=== PATIENT | male | born 1980 | race Caucasian/White ===

== ENCOUNTER 2023-07-22 09:49 | Outpatient (OUT) | payer OTHER, SELFPAY ==
--- NOTE | 2023-07-22 10:00 | VEIN_ITS ---
Patient Name: DAVI MCCULLOUGH MR#: [id number] : 1980 Exam Date: 07/22/2023 Ordering Doctor: [facility] REPORT PROCEDURE: VC EXT VENOUS REFLUX KANWAL LMTD COMPARISON: None. INDICATIONS: Pain due to varicose veins of bilateral legs I83.813 TECHNIQUE: Duplex imaging of the lower extremity to assess the deep and superficial venous system for the presence of deep or superficial venous incompetence and to document the location and severity of disease. The study includes evaluation of the great saphenous vein (GSV), anterior accessory saphenous vein (AASV) and small saphenous vein (SSV). Patient scanned in reverse Trendelenburg and standing. FINDINGS: RIGHT LOWER EXTREMITY: Saphenofemoral Junction Reflux: Yes 9.3mm 1.1 sec GSV: Diam (mm) Reflux/ Time (sec) Proximal Thigh 10.1 Yes 1.1 Mid Thigh 7.2 Yes 0.8 Distal Thigh 6.1 Yes 0.7 Prox Calf 5.2 Yes 1.9 Mid Calf 4.0 Yes 0.4 Saphenopopliteal Junction Reflux: 3.7mm Yes 0.2 SSV: Proximal Calf 4.6 Yes 0.3 Mid Calf 3.8 No AASV: Proximal Thigh 7.0 Yes 0.9 Mid Thigh 3.5 Yes 0.2 Distal Thigh Thrombi: No acute or chronic thrombus. Compressibility: Normal. Flow: Mild deep venous reflux. Preforator: Mid medial lower leg 5.3 mm with 1.1s reflux. Distal lateral lower leg 2.8 mm with 2.1s reflux. Prox/med lower leg measures 4.4 mm, 1.7s reflux. Tech Note: Incompetent varicose vein medial knee measures 4.2 mm with 0.7s reflux. Varicose vein prox medial lower leg measures 4.4 mm with 0.5s reflux. Distal medial lower leg varicose vein measures 4.5 mm with 0.6s reflux. LEFT LOWER EXTREMITY: Saphenofemoral Junction Reflux: Yes 9.8 mm 2.6 sec GSV: Diam (mm) Reflux/Time (sec) Proximal Thigh 12.5 Yes 0.7 Mid Thigh 7.0 Yes 0.5 Distal Thigh 6.4 Yes 0.6 Prox Calf 5.3 Yes 1.9 Mid Calf 5.6 Yes 0.8 Saphenopopliteal Junction Relux: 6.1 mm Yes 0.9 SSV: Proximal Calf 6.9 Yes 0.7 Mid Calf 5.7 Yes 4.8 AASV: Proximal Thigh 6.8 Yes 1.1 Mid Thigh 2.8 Yes 0.4 Distal Thigh Thrombi: Non-occlusive partial thrombus in proximal SSV Compressibility: Partial compression of proximal SSV. Flow: Moderate deep venous reflux. Prop Cutter: Mid medial lower leg 7.6mm with 0.8s reflux. Tech Note: Very short AASV. Incompetent varicose vein proximal medial lower leg measures 5.2 mm with 3.1s reflux. Distal medial thigh varicose vein measures 5.8 mm with 0.5s reflux. Varicose vein mid posterior calf measures 4.6 mm with 2.3s reflux. CONCLUSION: 1. Abnormal dilation and reflux involving bilateral great saphenous veins, left small saphenous vein, and bilateral anterior accessory saphenous veins, although the left anterior accessory saphenous vein is too short of a segment for treatment. 2. Bilateral distal lower extremity dilated and incompetent event marketing representative veins. Dictated by: John Duggan M.D. on 07/22/2023 at 11:13 Approved by: John Duggan M.D. on 07/22/2023 at 11:42
--- NOTE | 2023-07-22 10:00 | VEIN_ITS ---
Patient Name: DAVI MCCULLOUGH MR#: [id number] : 1980 Exam Date: 07/22/2023 Ordering Doctor: DAWOOD ARTIS [facility]IOLOG[facility] REPORT PROCEDURE: [facility] [place] - OFFICE VISIT INITIAL COMPARISON: VC EXT VENOUS REFLUX KANWAL LMTD, 07/22/2023. PROGRESS NOTES: [age] year old male who presents with a 4 year history of dilated bulging veins, leg pain and swelling, muscle cramping, edema, skin discoloration, reoccurring wounds. The patient's leg symptoms are symmetric bilaterally. There has been a progression of symptoms over time. This increases with prolonged leg dependency. The patient describes an improvement with rest, elevation, exercise, support stockings. The patient denies any signs and symptoms to suggest arterial ischemia. The patient describes a family history : Unknown-adopted. The patient has drinking and smoking history of occasional alcohol consumption; no tobacco use. Patient has a past medical history significant for recurrent skin ulcers, chronic venous hypertension, varicose veins, edema. The patient denies a history of deep venous thrombus or pulmonary embolus. See separate history and physical for medication list. No prior treatment for varicose or spider veins. Current use of compression stockings. After review of nurse notes, history and physical exam I discussed at length the pathophysiology of venous hypertension and possible treatments, therapies and strategies available. We discussed at length the importance of elevating the lower extremities above the level of the heart, increased physical activity and compression stocking use. Ultrasound venous reflux study performed today was discussed at length with the patient. The report demonstrates abnormal dilation and reflux within bilateral great saphenous veins, left small saphenous vein, and bilateral anterior accessory saphenous veins, although the left anterior accessory saphenous vein is too short of a segment for treatment. Abnormally dilated incompetent bilateral lower extremity driller hand veins. Numerous incompetent and dilated branch saphenous varicosities. PHYSICAL EXAM: The right leg demonstrates several superficial varicosities, scattered spider veins, evidence of several healed ulceration, moderate-marked edema, mild skin discoloration. The left leg demonstrates several superficial varicosities, scattered spider veins, multiple skin wounds but no ulceration, moderate-marked edema, no significant skin discoloration. Both thighs, legs and feet were symmetrically warm to the touch. Good posterior tibial and dorsalis pedis pulses were present bilaterally. VEIN/VC Facility NEW Comprehensive IMPRESSION: 1. Bilateral lower extremity venous insufficiency 2. Bilateral lower extremity varicose veins 3. Moderate-marked bilateral lower extremity subcutaneous edema 4. No flow significant arterial disease 5. CEAP: C5, AP, AP, OH PLAN: 1. Continued use of compression stockings 2. Elevated legs and increased physical activity symptomatic relief 3. Endovenous laser ablation of right great saphenous, left great saphenous, right anterior accessory saphenous, left small saphenous, and left distal lower extremity driller hand vein. 4. Microfoam chemical ablation of any remaining incompetent branch saphenous varicosities. Nurse notes, history and physical were reviewed and confirmed, see attached forms. The nurse was present throughout the physical exam and consultation Dictated by: John Duggan M.D. on 07/22/2023 at 11:43 Approved by: John Duggan M.D. on 07/22/2023 at 11:55
== END 2023-07-22 09:50 | disposition home or self-care (01) ==
DX: I83.813 Varicose veins of bilateral lower extremities with pain (principal)
CPT/HCPCS: 93970; G0463

== ENCOUNTER 2023-08-31 09:23 | Outpatient (OUT) | payer OTHER, SELFPAY ==
--- NOTE | 2023-08-31 09:25 | VEIN_ITS ---
[address] [address] Patient Name: DAVI MCCULLOUGH MRN: [id number] date: 1980 Sex: M Assigned Patient Location: Current Patient Location: Accession/Order Number: [id number] Exam Date: 08/31/2023 09:30 Report Date: 08/31/2023 10:48 At the request of: ISAÍAS WILLAMS Procedure: VC Endovenous Ablation 1VeinRT EXAMINATION: VC Endovenous Ablation 1VeinRT HISTORY: Pain due to varicose veins of bilateral legs I83.813 The risks and benefits of the procedure had been previously discussed, and were rediscussed at length. Informed written consent was obtained. Alex Rankin RN and Lucia Patel RDMS assisted. Time out procedure was performed. The right lower extremity was prepared and draped in the usual sterile fashion to allow knee flexion in the sterile field. Duplex ultrasound probe was draped in a sterile cover, sterile transmission gel was used. Venous mapping was performed with the areas of dilation and large tributaries marked. The total length was [67 cm from the entry 3 cm above the ankle to 3 cm below the Saphenofemoral junction. The diameter of the right great saphenous vein ranged from 10.1 mm. A 30 gauge needle and 1% buffered lidocaine was used to anesthetize the entry site. A 4 mm incision was made with a scalpel and the saphenous vein was entered percutaneously under direct ultrasound guidance with a micropuncture set, a single stick was successful in gaining access. A micro-guide wire was inserted and the needle removed. A micro-set including a dilator was inserted over the microwire and the needle and dilator were removed. A guide wire was inserted through the micro-set and guided through the saphenous vein to the saphenofemoral junction. The dilator was removed and an introducer sheath was inserted over the wire until the end of the sheath entered the saphenofemoral junction. The dilator and wire were removed and the 600 micron fiber was introduced and placed and positioned so that it extended beyond the sheath and was 3 cm distal to the saphenofemoral or saphenopopliteal junction. Final position of the fiber was determined by ultrasound guidance and duplex imaging. Tumescent anesthetic was delivered by ultrasound guidance. 500 cc of fluid was delivered along the entire course of the saphenous vein. The solution consisted of 1000 cc of normal saline with 40 mL of 1% lidocaine and 20 mL of sodium bicarbonate. A final positioning check was made. The energy source was turned on by means of the foot pedal and the fiber and sheath were withdrawn. The total number of Joules delivered was 3326. The laser was active for 416 seconds under continuous pulse, average laser use of 8 J. Laser start time: 10:24 AM Laser stop time: 10:34 AM Date: 08/31/2023. A duplex ultrasound revealed compressibility and flow at the saphenofemoral junction immediately after the procedure. Hemostasis at the access site was achieved. The skin incision of the saphenous vein was closed with a 4 x 4. A compression stocking was applied. Postop instructions were given. A follow up appointment was recommended and scheduled. The patient tolerated the procedure well. Electronically authenticated by: MARIBELL MENDOZA Date: 08/31/2023 10:48
--- OUTSIDE RECORDS SUMMARY | 2023-08-31 09:38 | XMS_ITS | CCD ---
Author Organization [facility] Care Team Providers Care Press Cleaner Name Role Phone Antoine Alcazar Unavailable [phone] AJ CROW Attending Unavailable Rashid Rojas Admitting Unavailab Rashid Solomon Attending Unavailab kiarra NO FAMILY, PHYSICIAN Primary Care Unavailable KAMI Hummel Attending Unavailable KAMI Hummel Admitting Unavailable Kastor COVERAGE SPECIALIST RN PHONE COUNSELOR-C, Mary C Primary Care Unavai lable Jet Sanchezg K Admitting Unavailable Le, Kareem K Attending Unavailable Provider, None Primary Care Unavailable KAMI Hummel Attending Unavailable KAMI Hummel Admitting Unavailable Kastor COVERAGE SPECIALIST RN PHONE COUNSELOR-C, Mary C Primary Care Unavai lable Kastor COVERAGE SPECIALIST RN PHONE COUNSELOR-C, Mary C Admitting Unavai lable Kastor COVERAGE SPECIALIST RN PHONE COUNSELOR-C, Mary C Attending Unavai lable Kastor COVERAGE SPECIALIST RN PHONE COUNSELOR-C, Mary C Primary Care Unavai lable Provider, Unlisted Primary Care Unavailable Marika Tavares CNP Admitting Unava ilable Marika Tavares CNP Attending Unava ilable Jhonny Hernandez Attending Unavailable Jhonny Hernandez Admitting Unavailable Kastor COVERAGE SPECIALIST RN PHONE COUNSELOR-C, Mary C Primary Care Unavai Reno Rivas Admitting Unavaila ble Reno Ogden Attending Unavaila ble Provider, None Primary Care Unavailable KAMI Hummel Attending Unavailable KAMI Hummel Admitting Unavailable Kastor COVERAGE SPECIALIST RN PHONE COUNSELOR-C, Mary C Primary Care Unavai KAMI Quach Attending Unavailable KAMI Hummel Admitting Unavailable [facility] COVERAGE SPECIALIST RN PHONE COUNSELOR-C, Mary Steven Primary Care KAMI Moon Attending Unavailable KAMI Hummel Admitting Unavailable [facility] COVERAGE SPECIALIST RN PHONE COUNSELOR-C, Mary Steven Primary Care KAMI Moon Attending Unavailable KAMI Hummel Admitting [facility], Mary Steven Primary Care KAMI Moon Attending Unavailable KAMI Hummel Admitting Unavailable [facility] PH[facility]SELOR-C, Mary C Primary Care Jyotiva liane Allergies Allergy Classification Reported Allergen(s) Allergy Type Date of Onset Reaction(s) Facility (6 sources) buPROPion; Translations: [BUPROPION HCL] Drug Allergy 10-25-2016 [facility] (1 source) buPROPion Drug Allergy 02-01-2019 [facility] Repository (1 source) buPROPion; Translations: [Wellbutrin] Drug Allergy [facility] Repository Medications Completed/Discontinued Medications Medication Drug Class(es) Dates Sig (Normalized) Sig (Original) acetaminophen 325 mg oral tablet (5 sources) Start: 06-22-19 20 take 2 tablets by mouth every four hours as needed acetaminophen (TYLENOL) 325 mg tablet Take 2 tablets by mouth every 4 hours as needed (for pain.). 0 06/22/2019 Active Comment on above: Take 2 tablets by [facility] every 4 hours as needed (for pain.). ascorbic acid 500 mg oral tablet (5 sources) Vitamin C take 1 tablet by mouth once daily ascorbic acid, vitamin C, (VITAMIN C) 500 mg tablet Take 500 mg by mouth once daily. 0 Active Comment on above: Take 500 mg by mouth once daily. B Complex Vitamins capsule (5 sources) take 1 capsule by mouth once daily B Complex Vitamins capsule Take 1 capsule by mouth once daily. 0 Active Comment on above: Take 1 capsule by mo [facility] once daily. busPIRone hydrochloride 15 mg oral tablet (5 sources) take 1 tablet by mouth three times daily busPIRone (BUSPAR) 15 mg tablet Take 15 mg by mouth three times daily. 0 Active Comment on above: Take 15 mg by mouth three times daily. clonazePAM 1 mg oral tablet (5 sources) Benzodiazepine take 1 tablet by mouth every twelve hours as needed clonazePAM (KLONOPIN) 1 mg tablet Take 1 mg by mouth twice daily as needed. 0 Active Comment on above: Take 1 mg by mouth t wice daily as needed. doxepin hydrochloride 50 mg oral capsule (5 sources) Tricyclic Antidepressant take 1 capsule by mouth once daily at bedtime doxepin capsule 50 mg Take 50 mg by mouth daily at bedtime. 0 Active Comment on above: Take 50 mg by mouth daily at bedtime. 0.5 ml dulaglutide 1.5 mg/ml auto-injector (4 sources) GLP-1 Receptor Agonist Start: 01-05-20 23 TRULICITY 0.75 mg/0.5 mL pen injector famotidine/Ca carb/mag hydrox (ACID GREASE MAN COMPLETE, FAMOT, ORAL) (5 sources) take 1 tablet by mouth twice daily famotidine/Ca carb/mag hydrox (ACID GREASE MAN COMPLETE, FAMOT, ORAL) Take 1 tablet by mouth twice daily. 0 Active Comment on above: Take 1 tablet by indra th twice daily. febuxostat 40 mg oral tablet (5 sources) Xanthine Oxidase Inhibitor febuxostat (ULORIC) 40 mg tab Take by mouth once daily. 0 Active Comment on above: Take by mouth once d aily. hydroCHLOROthiazide 25 mg oral tablet (5 sources) Thiazide Diuretic take 1 tablet by mouth once daily hydroCHLOROthiazide (HYDRODIURIL, ESIDRIX) 25 mg tablet Take 25 mg by mouth once daily. 0 Active Comment on above: Take 25 mg by mouth once daily. 24 hr levomilnacipran 40 mg extended release oral capsule (5 sources) Serotonin and Norepinephrine Reuptake Inhibitor take 40 mg by mouth once daily levomilnacipran ER (FETZIMA) 40 mg Take 40 mg by mouth once daily. 0 Active Comment on above: Take 40 mg by mouth once daily. melatonin 1 mg oral tablet (4 sources) melatonin 1 mg t ablet Take 10 mg by mouth. 0 Active Comment on above: Take 10 mg by mouth. ig-eba-hvdyh acid-lutein (CENTRUM SILVER) 400-250 mcg chew (5 sources) take 1 tablet by mouth once daily rr-xmi-gxbmd acid-lutein (CENTRUM SILVER) 400-250 mcg chew Take 1 tablet by mouth once daily. 0 Active Comment on above: Take 1 tablet by indra th once daily. ondansetron 4 mg oral tablet (5 sources) Serotonin-3 Receptor Antagonist Start: 02-23-20 take 1 tablet by mouth every eight hours as needed for nausea ondansetron (ZOFRAN) 4 mg tablet Indications: Biliary colic Take 1 tablet by mouth every 8 hours as needed for Nausea/Vomiting. 30 tablet 0 02/22/2019 Active Comment on above: Take 1 tablet by indra th every 8 hours as needed for Nausea/Vomiting. OXcarbazepine 300 mg oral tablet (5 sources) Anti-epileptic Agent take 1 tablet by mouth twice daily OXcarbazepine (TRILEPTAL) 300 mg tablet Take 300 mg by mouth twice daily. 0 Active Comment on above: Take 300 mg by mouth twice daily. traZODone hydrochloride 100 mg oral tablet (5 sources) Serotonin Reuptake Inhibitor traZODone (DESYREL) 100 mg tablet Take 150 mg by mouth daily at bedtime. 0 Active Comment on above: Take 150 mg by mouth daily at bedtime. triamterene 50 mg oral capsule (5 sources) Potassium-sparing Diuretic take 1 capsule by mouth twice daily triamterene (DYRENIUM) 50 mg capsule Take 50 mg by mouth twice daily. 0 Active Comment on above: Take 50 mg by mouth twice daily. vitamin b12 1 mg oral tablet (5 sources) Vitamin B12 take 1 tablet by mouth once daily cyanocobalamin (VITAMIN B-12) 1,000 mcg tab Take 1,000 mcg by mouth once daily. 0 Active Comment on above: Take 1,000 mcg by mo uth once daily. Problems Active Problems Problem Classification Problem Date Documented Da te Episodic/Chronic Abdominal hernia (3 sources) Incisional hernia; Translations: [Incisional hernia without obstruction or gangrene] Onset: 01-20-2023 01-04-2023 Episodic Essential hypertension (5 sources) Hypertensive disorder; Translations: [Essential (primary) hypertension] 10-25-2016 Chronic Mood disorders (10 sources) Bipolar disorder; Translations: [Bipolar disorder, unspecified] 10-25-2016 Chronic Other nutritional; endocrine; and metabolic disorders (5 sources) Body mass index 40+ - severely obese; Translations: [Morbid (severe) obesity due to excess calories] Onset: 10-25-2016 10-25-2016 Chronic Past or Other Problems Problem Classification Problem Date Documented Date Episodic/Chronic Abdominal pain (5 sources) Left lower quadrant pain; Translations: [Left lower quadrant pain] Onset: 06-19-2019 06-19-2019 Episodic Lymphadenitis (5 sources) Lymphadenopathy; Translations: [Enlarged lymph nodes, unspecified] Onset: 10-25-2016 03-22-2017 Episodic Other nutritional; endocrine; and metabolic disorders (5 sources) Developmental delay; Translations: [Unspecified lack of expected normal physiological development in childhood] Onset: 10-25-2016 10-25-2016 Episodic Results Test Name Value Interpretation Reference Range Facility Coding Summaryon 08-24-2023 Coding Summary HTMLBase 64 QfvzajpqBUa8wTg+PGhlYWQ +[id number] NMTElOSywgQVBQTElOSyIgb iJiQV6lcENpHVMt IC8+CT4lLNSfKteawUWsm6C 0xKU1I85kks0yVGsvoZA9YP IqLvVeqmgwe4syoIi0HZvpH mluOyBt UOXqdK86QQX9hS74Yc41eDA vqHXnd9onuYi8TwQyCZYwLD M8rSxkOGost1NpLQOfL16sp EEgq3Y6 OMPzrFwouOCeNgYndCQ4qJ1 zIVjrvlkkz1mflskbOxk0qa 38lGKjf4Q2zVK4V3KrlkG2E GJvbGQg JhophOVOsJ9piusog3ezsna gNiNoHBWjYCw2XBj9NTVltY hcHuWnJR75MRO9WJQimyTcJ 2FsLWFs yVckCfQ3d7D0Nk5RM3UZNee cN7CBBJWWQRicfLS+PC90cj 41I9TbUfibYjv7JXYrAKP1d BN2cQ6d CBXzPEtcu2W0kOS4N8DqtfV ffi4kk4mqQYJhHAdcH96lqU Laf9B2LOVcjBW8POKmmBjiA iBzaG93 Oyc+OEVwfLgff8SlDhrfq8l ie8gtxDr3RlxmVAXdahXoiL euFMK1y7TmLe1aCIFnxNJ1s MQ8fH9f EuNoDaP3UOclU127AzGwsJG bIxupG26qP2FwwRT+PHRyPj b4EKAdzRpoAF0aY9HgTKReg mctbGVm xFzqBQ9mDTPmomckBFArnO0 oYALkX8t6DrPqZiM9ZWhaZ2 OyJHCnzbcfXg52sR1lWvRjC fX4EHdd J9PjxzK8YMOhlACsMIioHWJ 7V03wd7O1ZZBqFYPpRVE0dR B9wD3jeQaybjbbgTJybBhrh mVydGlj UThoVLwjP453PYCqaNfiShD vZGluZyBEYXRlOiAgMDMvMj AvMjAyNDwvdGQ+OBZbFLI3u WxlPSAn hYVwGPstGk4fxXctoQprJH0 mVXAjxpdtUWUlwJ5lQEBncS XtyPmrWI4fZIAmzgmrr505Q iAxMHB0 YROiyFAxE3WwwR8zDgGqHJU vOOQpK9WkwACvDBmrO145YZ flNzB5KCFshaQyI2WfMCEoo WduOiB0 w3V9Nh0Zi3CfzofmY3QqdJC xZgFoDaadPYy2N1IgXrpjaT I+FI59EEYjKO49MKj1NWJ7e WxlPSdi HULbL8JecJ1eWnHtSBQgNGK kOyc+PHRhYmxlIHdpZHRoPS etGIVpSpYitAghPY4lNi5xF GVyLWNv fIxauFQuYnNpo5uhJLNeENa dJQ4yvGcjK6TrhTD4YQPpj3 d5Id43F44sI5TxrNV+PGNvb MD6uLR7 gM1mIzAwKtV8VRghE876PoO feNNgBruky4ljj8fhqUi1Ao F2ERCraqAucPesABG9h4CiN s24F35d IHdpZHRoPSIxNSUiIHZhbGl kue5bxW0xAs6+SXUcySO3yC M8yX8fVbDcPeM6IEnlG367G nRvcCIv Caqyt0nzu1ikbRh8GtHrHBF fpcMetDaqSNN3r7DlVy13T2 VigDvnx6TjGlx1qe36vSVvd 0U7wYV6 G1WfFBIfetouqXPowDgaUK4 dNUZjxzvuNYFhcR8wRHGlY6 f2DuNhVsN4ZIgiL2FcusG4I GJvbGQg RXZehAUTmI3rtypko2bqeqo yFwLgOQRoMJg5UYa6LNTkbC nfIyMnQAE0NyH5HJP4xPJir X8zwXbw drcorJ0bCex+SXK9yQAqgCQ JDE4vWqgxqWY+YHNuNFR1vT taKTiwQBDspV1oLUEfQ1r3D iAwLjA1 IWucN5WawmK7GCStwOHaLTB prVPFeN7lauwea9uvpunvAk MdHMDxCAf2UZq4QENlvVvnV iBsZWZ0 SoB2JMT0zVHhdX7esYctymy nsD2oMfz+QreoiCekWIE2FB u4J1IsHci0VWLvwKfuCR5gd GFkZGlu Xe0saUqjhBvjKN6qRDOofwz gb270MbJof5bpBAPkbTAzVN jcOFO7J05xp7Y2RNNsBBIhI WF4bOM5 cD6bxZxodzaqqSWrpBhufrC qtBxeQBjjMVafQ025ZJJsdM giXsHpUUq4V4WfZvy4BZAgc FypFK2k vZSyBEepKn5chDewzBonYR6 iDQYjafvng575NkSvf3zlYG WldQSkBIbpFJI3X49fl8X7G CMwMDAw ZGB4lNQ7oD2ipVzcmdxjcMZ mdDsgdmVydGljYWwtYWxpZ2 58CAImkCmkFwHjkHx4C5NyZ we7ZPGm vUbtWU2jyGItNZkxQw0jgQv fxQjxWZ3hUNLkxsrab320Er Uah7xyCOGfpMOjHOwqDCN3T 14wy2M1 THXuIXAoPKY4tUP6fG2szKh nbjogbGVmdDsgdmVydGljYW qpDCxeQ286ERSqbKbmGoFuh GllbnQg JJziFZv7E5VgUlirtRO+PC9 0PNImOF61ePBftEGuv2etbD i3UeKgNPEwSHB2xYexRDxis 3JkZXIt F58yiISlk7A1TTZarHnceZQ fSqYolYX4yO4bZJtfeiivn3 ekctdoDevvd0nnif09hX52E 29sIHdp ZHRoPSIzMCUiIHZhbGlnbj0 kxO2iLp3+LMKgzFJ6gUR0yX 8bUCJuJyU0NTzvD988KsTex CIvPjxj l0vid6uljMv3CiA5VVVqbkO tmXkuHCT0n5FuUk27Q43aKZ dpZHRoPSIyMCUiIHZhbGlnb s1rjK1i Ii8+WDPyoJL5xXE0iC3bWeY tZdP3DCxsK161YtVhtAYyOc pzE11cG9UuiZE+LQSjBtb0D CBzdHls LM4fmVYoWFfoLz5xBYN7VuZ vYlMbXXecP3RnHSUbjekznr bmoQU2WOAiBPDlhX85Rz8hc DogMTBw bUUDuL8gsnohb3urixkqVqJ aTOGiVYx4RSd2NFEpuWqcEr EsGLM7KlK6BXM8lDNmrF3qo Glnbjog uX1dM6WqIUSumcyxRx28rE8 gTbVjYmF9OMwmWmk+U0FNUy wgQUxFWEFOREVSIExFRTwvd GQ+PHRk OEC4fKcqTLklCCPbrY4sIGE yW6i7JqCdHjN6YUhjG0TzWH BvcqnoYq08zO1oIoSuZwU9C ExeJ0Ja asC8KXNpgCUpFCwgLET7H93 ga9J7UYRwOVJlUTH8tQN2gQ 1hbGlnbjogbGVmdDsgdmVyd GljYWwt YVqbW267PFVrsGhwSsMbQfL 6IlZ1Cuv6A9VdUvm9ZTPpnX zdLM8jrAPoXMydTy7koYurq MbdUD0x VGEtnmjmBSJprR3xIDCqoKR pdFwgOF3pEPTztynmn576Vq HyYCT6ZEHowXTrT0EaqC1fV iAjMDAw CFVyG5NwuGUzESpcF148FDm vQfB6HZCdazQiY1FgCRFglF fjCaD1e8X4Mb51PFQSPHOjv zwvdGQ+ EODvMEM2kBfdHQslVTKtcX3 jDNZbZ4s5YmVnPbO8YAfvJ9 JpLTFyiuvwZt46fL6cKhFcO nB9ZVdu U7SlftH1FRSknBEnADjuFOW 2V57pd6R0UCOuMZOcYPB5fI P3hY6orZfroghvfLWncRtjn mVydGlj TXttBKxbW980NUHojWpeHg9 BLVM3R7VxBhm0FPNufKocQR 4rmPPmYAbvTa2lyLeflZwwG U2gFZQh nroxENKqxY6vQIIpwGRsmKk jPD9tUEUlaqvaj970LaLpPS Y4SMLmlTJtX4VabO1pCoYhE DAwMDAw T3SbvPYeUCrgP084OStvDjD 4ANWxguAvA5SsCOTjbAuvAp P1u5E2Zo9VTWlxiOV+PC90c u18A9Ob BxgbPsr1LLIfBAM3iHP8lR3 zVGQwZVdsb4S6xMW8X2Gblm Bbxv7pj1vuMHHqPZlgM52ry ZGzs0K1 JLKzeCK3JCDqkJtkTdPvuJ7 3Oyc+IVVetCprz4UwEkvmn9 ljr6cdaRz7FkOvSCInzwApj WduPSJ0 d6NeTk03A88uQNfbUPHdQXZ zDFDdWSYbaHbfxb9twW2bZg 8+AMKpcJO0sXZ1mZ5yUwUqP lA4AUoq E729GcZwvYToKtupf6wkq8l uhIq0FdEvEAQjomPppHviSP I8p1QbDe63D2DxuInoy6AjQ gn5jj00 rGTen0G7gQZ1G2VcQMUfunb ccQXmtBlnUW8wKAVyxxwzFE LyhU8hHAWaW5h7CwLgZpJ6U RgxI2Ci xyB5ELXopJTuHIBvrHUZiW5 ggpriv9cnqoxbMiOeDWThQD p0QFl0OXSusQuwHzCkXRB7H hW9SZH5 iAYinI6kdWxnnupceZ7zAyj +YAo1f6kxmGNeRG4vcWQ0GZ 90FD35hPUja0Y2xCD1X6AgI GRpbmct kbuhkHL7YSRsEIMgbD95Ap0 okBjbKj3hGTWsLST6XXNbpI GyW2IsrD8nIoMpOUXrSRAaS 3RleHQt HWfbA983DZmsSaC7BAWgtsQ jK9UiDFZthWbrLjB2c9D9Cj 5LHU39XD46PR90qCFon8D0o SU8B3Vg IRVmjzqojbgpyBM5VTIvKCO etQ89Jc9lgDbsUn9gBILtGN V1WUXnpZLqV3ZmcB8eNeJiF DAwMDAw I6VxnUMrIQvvB118PLnvClQ 5NFIzhnFvX8XjVIDjqYhvPg G2u3B9If6XTs61KR33UL17s YHol3K0 hSN0N5JyNOUzbeisspeamKO 0SRQhUNQbnA10Cp7eoYxfLc 4pUVJmFNQ4RJXxoKHcH3Nzy C7qZsRf BXIwISRuQ9EanXAiEPpkF43 2NRdaUuY9MKMgvgEmH9VwFR XskCroOqO4e1K7Ql3YLMqao tz7A6Xg PjwvdHI+AU75KTQcCO06yNP ogXSkw0jelPp7MzWgSULzXB Q9hUuxMNsjh1HwZKIzI31in OSvz0Y8 IGN (more content not included)... [facility] Testosterone, Serum LCon Testosterone, Serum LC 404 ng/dL Invalid Interpretation Code [id number] [facility] Comment on above: Result Comment: Adul t male reference interval is based on a population of healthy nonobese males (BMI <30) between 19 and 39 years old. Kaitlin, et.al. JCEM 2017,102;1133-8080. PMID: [id number]. Performed At: [facility] [id number] Danish Sebastian PhD Ph:[phone] Performed By: #### 1 [id number] ####[facility] (DEFAULT)[address] [place] [address] Provider Orderson 08-18-2023 Provider Orders [id number] TGTIFF [facility] Coding Summaryon 08-10-2023 Coding Summary HTMLBase 64 GhbbfatnRRt9oHz+PGhlYWQ +[id number] NMTElOSywgQVBQTElOSyIgb gKcWM9kfVPyDNPn IC8+JX3jKDIkMqvubTEhh5V 8mKB3S92wpy6aJVkcwTT9PQ MyUlWbowiyo0ywyXd4BPloY mluOyBt KKYolJ16KOV0xA94Qo91pTU jvIHmf9djeVw7VhEfWFSmQS Q2tXvsPMpib9SnQEJlS30mp DSje6W2 FFXswVejrQHhFhPgzUL2gE6 lQRmzhklfb3ptmqsqEnq7vi 63tSXgg1I2jFL4W9LqjjZ7J GJvbGQg SgiwoTRAnV1bygdwd9zrktg hXoXiUBDfGCi5YBr8IPMqnQ rqXtCmEK98HSM8QZTceaGcH 2FsLWFs pIxzVtY1f4B6Zp5XH2SWDyj vF3XLHRIQJGbtvUJ+PC90cj 09Z6YgOnjkZce1SDPyNSZ2e UO4mT4a QLAoCTbbm1D5rWH9D7EqyeF vsa2ue0qiMCCzMKvgC53akG Luk4B6PGLogXP4AARamDocJ iBzaG93 Oyc+RDQjzKfcq1CzEtzhq3n cn9mtsBm7NvgjMAJrtvWnbT fsMZN8i1PyCe7jOESolEJ7n WQ0gI8f KqQsJsC6HWlqR712HeOexBZ lXsfbQ61gU7OrgNK+PHRyPj z7UZFaeTisKD2zC3GaCKLnv mctbGVm dFilID2pJXMzhjyhEYTgfB0 nTYNuZ3d4SjHwPyH4XWqcD8 BjRZMpkhuqZn15bL3qUuBfN vC7UFlo C8StrrW5LVRpfMHgTGbbVWZ 8F05hz7I0KTCbYHBgAQU6sB E8nF3jqYrdbdmtjNHxdQonj mVydGlj AOoyHKaiQ963IDElpFvoLrF vZGluZyBEYXRlOiAgMDMvMD YvMjAyNDwvdGQ+TKZaRXJ7y WxlPSAn zKGbHGuoRn4zuMmsfKalGO2 mZXEeajyfEOOioB3lZQHfeG VecHdgFS9bWXTbiyenv382G iAxMHB0 WJChaQWdC3XuyJ3kAkJzTDL uXEWrZ2AglMSxTLdcS767AL jrXfX5BWEyhrObY7QuQQYxe WduOiB0 a6S2Oz5Jl5TpqpglG4JwoLJ fApGkVfkhYCv1G6WnZhqakM I+ZF03OLRlQG13VUj4HDS3i WxlPSdi BXVvS5HxuF9mDtOsJLEpDNB kOyc+PHRhYmxlIHdpZHRoPS nhTRLlXtAcbXhxOU6cQj9xG GVyLWNv pHvemISlArEth9jeDEOwIIj tTX8cqQcwZ3YcoYZ2RVVbz9 i9Ki00P74wP5CbxRS+PGNvb YB8mUN3 iW9mZmJfUqQ9KXmoL328KoM nuVTiVifoa9zij8ikyMk4If K9FRWwzmWkoTzgYGI7y1EcQ o46B86o IHdpZHRoPSIxNSUiIHZhbGl bbi5xrF7nOv5+FYTztZG4xL A4bD6uIrBwDeM9CBujP883E nRvcCIv Wygqo9kpb6gpdUw9GhPzMSR uvySnwLmdBPH9i4AlZu01T2 JekUmmh1SaItt3vs24rTPhi 6N1bUM7 R1LzSLAwxpuddKDsfOgkZV4 bOJZixrsjJAJgsE9pMDLtR6 j7SvZhAfK4YDrcL9AlvgJ0C GJvbGQg XCTjgMHUkC7wimszm7ffbbm hPaAzMINzUMv5QFd3RONimH fvFzWiBPD5CuI0WKR3tOQnj Z3adTro ireeyC4vJtd+KTB4mZKxmUL OPZ4qIjrptUW+EWTmNSE8cB mdDEtdTYEzfV1qNMTqJ2p3I iAwLjA1 UDkfX0ApjaC9TNIcqJBwYZZ dhFKVwT4suxtqa6lvhiybXc NfBAYhKIu6CNw0GEDqiUxjJ iBsZWZ0 IwH2RFK4eYHrbM1yhZxhrgt ndO5xXpm+LyhsfVdxRLX3HM j5N7QcTxg6VFNlfTdxMA1lv GFkZGlu Uz1jcLperTabUR2xHGEmqxj bt281XxAol0qyZVKfhZYdVG jmBGW7Z92pj2L4THMyKZZcY UM2yPV3 gA9wjXywqibbhHVrdChbuvX qvRfbZEzgROfqK590OAPthN hhMeHuGYe3C8VmWbc9XPHju ZrmEG5x qXNvOTfiOl2brPopvSzdRK6 uJHSgwswhe486XrZlt3thUZ TdeWOmIBtwXYV9G04fo8I9N CMwMDAw FNE3wSZ9dM3ciIymjveryYJ mdDsgdmVydGljYWwtYWxpZ2 70WHUmiRrxYuWzdTw3Q5EbH nv2KCYz hBtlEJ6dwNDlANvsPu8hpVd yhVixDO9kQXJsycwpa971Sy Joj4qzHNImnYVsTSnnCID2Q 26wx4I5 JSRqWHCaBBZ9pGW4sY8snGg nbjogbGVmdDsgdmVydGljYW dtOEamK701OHLiiQeyZtPhf GllbnQg OQcmPAk9M7IzSxvqoQN+PC9 9QVPxAH97cGJftOTth4vpnI s6XlBtCUCkXEW4mQulDRamg 3JkZXIt M07phBDdw7W9FRBngJklgMG uHnKknEZ9vJ1pDXzrotuqy0 bbggdoQqcep9goby54eP71J 29sIHdp ZHRoPSIzMCUiIHZhbGlnbj0 dpW0nQe0+VDPwtTF5pZY8uO 7lSGAdMrR2UPjyG003RuEcz CIvPjxj p8dwd2izyGh5SbQ2PFGktrQ rqDdlXWK5e6YjEp98T64fQX dpZHRoPSIyMCUiIHZhbGlnb z3uvW1q Ii8+IIMzwMJ2fEC0kO9nTsR mJwH0UWwhW506AsRsrKItQe riM05pS2TzdXE+GMMdQnq0S CBzdHls DL4jjKThZXnwDc3vYAY2WlN rBmHbQQszF2OyXQPjapjukj redVK0VJJaVTHciQ25Oe1ci DogMTBw gSXDnP6hayaom3yqwkezOtI kLZLwFVr0JVh8MTVxnZnkPt TwWSZ2HsA6MZO7jJOacM4wy Glnbjog oJ6cT4LuWNWmhvnaOa29dS6 uPbEbEfV1SYgrOfk+U0FNUy wgQUxFWEFOREVSIExFRTwvd GQ+PHRk JDO6tEzfDIutAPTqsX3rJUL yZ6n1OdEsUsF0IVzdN9SbAF IhmlboUd43bM5gRvDySaT4D AqwP4Ri pwB7CZBvbDOlEEqnDDK1F77 wf5Z7YSUyKMInAZS3jUB4lU 1hbGlnbjogbGVmdDsgdmVyd GljYWwt KHbuQ571COAtzKvgYtXsDqF 7MxQ6Uft0Q7YiQss2YFSugE qkXY1wiGIcKDhvJy3keJqic NpjEX2i PHIkrasgFFSycT4nQBKxxLO coHtpNT4bXBRmbjras106Ao PcVUB6KVAxmAExR3PzmV9kG iAjMDAw MSLpQ0GfdORzZXlhS488TPh lAbE3DSMgejXxX7GoSRAwaW jyAgT6n9R5Pa52JLHYSPBhe zwvdGQ+ TMPnHQY1wNogBUinKREyuA9 nWJJuA1h7NgNlPwX6VJrfL0 CnQPXirxyhLc58eR1jIdWcV cF7EZld E8FmqsW0XWCodLToTMijBOD 5H39ni6K4MSGiQZIbREJ7cC I4bW4tpTjpisjgaQRkrIvxh mVydGlj WYcoSSdpK081EDSueWoeKz2 HXNY5A6PmKqa2EGIrrXluBY 3zeNGxAQbqUs9gsSfvnJtuR E9jQPQy zubjCLHqkW3gDTSbzCRpgGk bCB8mRTYkyksou517VyQnLT M3YIEbpKMgV1KkzU2sKxEhM DAwMDAw U5ObbOBlEOneZ960AMyaXjD 2YPWyuzBaT0JnBSMhtHlqNr S4x0E2Wo9RSKqrqIX+PC90c y89B6Cb IpgxMwi0CXNgJBL5gZP3uY3 oVJFcPLxfm2Y1iRY3I3Nlcg Mbxp3xt3xtHYNgMHovU21hw LOfz7U6 LDMteFN8UPXvoGfiEtBboE7 3Oyc+SPPhbCnvh9LmQkjdo7 jyb6sipIc3LgZtCSEarvVtx WduPSJ0 c6EpUm75Z59kFIibMCFpMLY vNSTjMIZfvGclgp2kmE5eOb 8+NJSnlWO2eKV3uO2dUqMgZ bT8THym B806JqOkbBEaMyxda9irz4o jtGd4VnGlDYOtjcXcsEraQN P9g2XcRm13H7IbnFqpt8RlF lj8fz86 xSSrs5P4mOI2Q8SaCZEjwas dgEAfqKpvAU7cRUSudpwaJB EdhJ1gKPExX5g7SoOpNiN9L ZleA9Hu iuN4WZAstFGxFWJytKSOmC2 fzrzyo9alqpkjIvOvYYWvAL l8BAe1KOAryCkgEtMhFJG7V tY3RCN0 wQHqsR0ioTjgqijsqK9yMoq +QQf9k5wdgQLnWX1cvRF2LK 82LG16wEBgr2C1cEB4T7QbR GRpbmct ljljvJS0PBTcMMBmrC72Tl5 poDfwWt4kYHGvTYY3HXZhyT UjU6UsfA6mHiSrVPSfEWVeZ 3RleHQt URiyC084MVcpNzH5SDQmuwK dD8FyQOGzuSjkYeD9p0P9Sp 1JPF45YN27YU73rHVil9A5l FJ6E8Lo VZSdmcbnaxcosZZ8USAeLPO iqT27Wb7hwRshLe6eLALqVV M5ZGIkqVAlB9PulJ3cBnJiW DAwMDAw J0XaoNLyKLmsT218UFilLjX 4LUYnjhBhI3BmVOPqgVjfYu K1e8J6Wj0EXc65SZ06LD13p XXdw5E2 cKC8K9RcWFClqguljkkbnUP 3QTYiNUQthU53Ff4coOigVz 7tPSEaSQW4LLFtqUCaH0Dqf A7sJiWk ZYAmXCYqO0PtnEFcHXloY60 2KGtyIxH9RCKktoOzS4UyUW WelDutEsQ9y4J9Cj6ICYpnz gx4R4Vd PjwvdHI+FB18EYUrEU85bLK hrAEsr1hfsGa4OaIxRMEgBF D9aFbjUQmyl8MkMDOcI99qr AZww5Q8 IGN (more content not included)... [facility] Coding Summary HTMLBase 64 ZgcsxwujVAg9qDi+PGhlYWQ +OH5EVQCeA47aiJQhiZ8xJ6 NMTElOSywgQVBQTElOSyIgb cFtDZ3qnSJdHHTz IC8+MM5zYSCnLwdsbHEzq2X 7tMR7E34cpb3eGUotqQA6CE YlKcQahcanp6pssDx5GSvvZ mluOyBt QKMvjY42ZVZ1xR64Xs52jFU diJDdi0vmyGv8VdNpFHTrPZ I7cPmuIVtro1NkZLSlM30uq CAyq9K6 ZSJqpCowuOXwWyBmfGA1sV5 nVBqfqujjc6ekuyucWym6we 09uINvy6J7uTZ8W1OpevA7R GJvbGQg QzqilIPJnG7rifgpb0pexpr pXoDdWKMyOMo2ACm7XOPdwE gbEoDzHB89CMF6WXFqtfYgK 2FsLWFs mKflTmE3k3L2Va2JE6IFHci wE9PCLBIITTzuvER+PC90cj 17W1AmVxnfZlc8VTQmGPL9i MT7qH0j TYBnIIqsg4B9vBT8D7TtsjD ahh8uw0nzMTCxKZauS79rcV Fvi2E1CNWnfYG2ZXQyrRtwM iBzaG93 Oyc+WAXcdNzav9OtJxxeo1p dj1dqwWp4AwhcSDEmrgSgzT prWTB7m8NfGv7fWEVcvUR7c YA1yD5c WrYeMfR4WZqkS360DiQocBR tPklzA07nP8NorQL+PHRyPj r3BAAymVmsPL9xL0GfKMHho mctbGVm nHomKC2lTJYaefolZHYroW7 qJOWwF6v4QiSsIoZ5CCmzF8 PuOBApexpxXz53kO4cOxGfF sR4WAaw J2OzqpF8IGXqiQEbFFbuTLW 2R85ov1F2SNTfOGUqPOL4nL G3sP7vhPvhzjptgPPgaVttw mVydGlj YSmdTSwvF914YQLobEwsFzT vZGluZyBEYXRlOiAgMDMvMD YvMjAyNDwvdGQ+QZLlOHH4a WxlPSAn jCPgYRqnYx2lfJsjcMneAS7 zZMBjxifnJFVayS6qKDVfbW HvtNbvQS1sVJPhjzxtn823Z iAxMHB0 RSFtaIGuD3KntT2jNbQvXMJ zKBDiE6XrbYRiZHmfG387RN cpQvG7OFZhdkAfY4LnVQZbs WduOiB0 t3O0Kf2Ad7PeqswuP4ZulHT kNpOfPnqnGEx3P7XfUrphtE I+BO26ZTBhYC39TUw2GJA4b WxlPSdi FWXqK3SxhQ6cZeUxVIDfVJC kOyc+PHRhYmxlIHdpZHRoPS clFAQnIxXvjEitNC3rKf7sH GVyLWNv kEduaRVrTlQsu3nnLBDcABm dUG2ipOpdH1UnoNQ6JUGpb8 w0Vm33E59fU9QylCP+PGNvb CO6yOV3 mY5bKmIvBtZ9GIsgK710TqX psYGfDdigz2ybi7xhvEg0Tz M0UYOobaVmaJroBYJ8a9MwE r58M53o IHdpZHRoPSIxNSUiIHZhbGl lso4obE8jTp0+IDAikRV0iJ W0tW4lLvXoVbQ5WNhhX968S nRvcCIv Vpqno1edn9cspPy8GmGoELG ocsFfdKsbCXB8r4LhAs71O4 LqoTcri7KiGuo8th99dNYiu 3I3hVW7 I1XjPIMeynzkwTOyhIdzRS0 iCSLjsatpYXTefM3vXSUqX6 q9LzUiWlG5VIdjL9YedrH6H GJvbGQg BTQgsITKhN6pgadle2ypndu zQkPgILEjYXn7OCt2GMKxlT fjRmNrWCG3PfG4IUY9rJJfi O2wcBdf bbxpsD6rNsh+NDU1hEQfoLY ZYW4hKybcmKS+YHXsVXF7yR syLQwkPPAqoM7qNJFcO1n7B iAwLjA1 QIkuH9LctwU8HJLwnNWrCTO mbHUGaJ9nsdyuw9lpyaitNr WzVEPeQUq0ZWc5VXCryThaX iBsZWZ0 LsU2TGW7tGJhwF3unGfnaap gtW8sJys+GcuxoEjcULV3QF p9P4OpVlb5TWOfbWlsEL1zl GFkZGlu Dq9jnSguwObrXM4nBYIwcbh ys665LpWnq4caLJCwvNWtBB gdYXM7J01uc5R2WGQfYFSxC VO0lXZ9 fK8rnQyhhjexyOIhlKmepgR pwMmuDAucTYgtT230HPBwxK dbNvKmEVb4W2WbMkw4ZNDye EdcOO1d mKEfACbhNc8bpFzivByjHR7 mKFOrtlxii199XaOse6rkUD KauILhYSxvXDG5C28us8Y1T CMwMDAw RLM6dDE1lM8hiOqyxcmgqRT mdDsgdmVydGljYWwtYWxpZ2 29CBAapKayYvFvsBv2E0KcA yw4QWBz rOozWN4knHApEMqpYp0rnFl xgPkhGD2vXGIhwpdvg737Px Zev5jsIXKubXYwRWlqJNT0T 28qk9S0 FSOmMTDiEAA3aMI0dS3ppZz nbjogbGVmdDsgdmVydGljYW plCUdvY393CIXejDdqYeUst GllbnQg VDfdJZj2R6GpEdpjjAH+PC9 6JWVaAL94nJMdrGDhx0adpY o5GuEiWBQqDJE2sKbdTKwwb 3JkZXIt F24xsQOqt5W5ATPpfPfuwFE rXiUgcMS1aY5fKWlbejovf6 kocowxIrqal0vejd45oS80V 29sIHdp ZHRoPSIzMCUiIHZhbGlnbj0 joS9uSm7+NJPtxQW6zIJ6cC 6oIFStJqV5OZmaQ869GhMra CIvPjxj r6btx9wxuMs1HeX8SLFcueT exTeqPNL1j3RxMa12Q97dBI dpZHRoPSIyMCUiIHZhbGlnb r2ulS6p Ii8+ZLYgbIE3iRD3fD0aGdX kUgB6JYhfA540UaMtnQBiLd kyK62hD6VpbWG+CVWsShl0X CBzdHls ID8bhQFkPSysMd8tOHQ7JiT dNmBbAZrpT5UsGXWykxvgmh rreOC0TOSfFWGhxA69Wf4yp DogMTBw yRYKeS5cadniw5ktordpDnG sCHEeEGh3DKf9BYVplSzqXm GfXOF6HaY8OYD0nAJkyX4kx Glnbjog vO9jU8XrCDJdweppSr35rG9 xYbGgStM8AOpcDnm+U0FNUy wgQUxFWEFOREVSIExFRTwvd GQ+PHRk SQE2vRueFEhhZSJnlX1oZLR vI1u3XbYmHnS7JXutU1CzMD PocwimFs30kT0uPxBlEyR6G JpsU6Ba ezX1KPEruDWjIIytUBS2P66 fe5S7VGAsYKDgIIR7qCI1qB 1hbGlnbjogbGVmdDsgdmVyd GljYWwt FDwpN840KZKniGiiMnZeDpN 7LwZ4Ptz1X8FaCds7WUPkbH wtTD8nnCLhILdoIy5hfIkkc MaiVR9f EYEpstbpWBOksM8zUQXpjPV hpKaaUA1zSCYlsqlkd133Gb FmUPI4WHRvrDTmN0WxaT9gY iAjMDAw RGBpG7DhzGOrAQxvW688VOb xPaB0XSZssfQdM9DaDDWpqM ahNfS0e0C4Od73HNXFKXLuv zwvdGQ+ PFNfWYX5tSvgANuiIRDheD7 xUNMpM1e0QiRwBrA1GKpzT9 KmOJKsshmaIg78gY7hEzKcW gV1KMhj A9YvxdM2WXHasRWlOTgiUHF 6T52dk7V5UTUnXUHmJTB6uF L3nZ6plPbvbnyzpUCpnJssf mVydGlj YHxsUOcsO494BVUttKksYe4 BWSV0R0ZwTzt8OSWuoWeyGV 6zjVIlVLltJk4kiFakeHwgO Z7pPXHd piksPLJqrC9wQNNewVZhgRb oIL7qNGTkzfhui262IzJoED P9MXOmhESmT9KfsU9mYnHuY DAwMDAw Q9UqnERhWHntP583TXecSwJ 3JFKpfkHzM7BwLNQkiTvzYc L2e8G0Bo1NCQnakAD+PC90c x44X7Bb CqvxEot0HMYuHAL7gQR2hY4 aKJBxWLxko4P3mFH5E8Jqdq Qgtl5mh5igGCCpGChmZ77ru IWaw6J6 SLMgrXJ1XEAmaShjGkZvbN4 3Oyc+RMVcqMvuz7KgJlytj5 lck9zezBw4BtQoIZMzdzVoe WduPSJ0 t9DgZu83O23zOAskLOLxTFB wBLDyLSYzwSkapj8pbY1bPf 8+FTQyiGS9rYA7uZ0qGoQwN vR0TAtl G130UyOoiLOcXbnqt7hmn8x zdIv0TjZhZRFlebYkxXdzQV I0o2OiNz48B2PcyUtod3NqO ge6ug76 wGThk3I5sZP8L6WvYWHxthz qgSEbkDswZD6cFQTsfzqvZE OhlS8fJBWpI2s6VeRdVfU0Z LqfS0Gj vyV1XNFicZKtDEZnrCWZbQ9 fhrxzc3gqpphrIoZcUNPlGJ p0DRx0NSJtxEagZjShOPG2H qS9WDX1 jPRurC0dmBgkgytaiP7mOuo +XSx7r0dnoCUtHB2suHX7PM 24TO87sQOqk3X0tDT0U1WmE GRpbmct khqxmPC9JYPfFYRsfP71Hg3 ssAwrOk1kSXAyUJS9WXFbiG QxK8OkxL8dTgPbLRRaRSBmU 3RleHQt MEaeH483ULioIdR6MOQxviY kI2MvJVGpwDgnZrB3v0D8Nt 1VYP81PI36OL99eSObp8Y9h QX1B7Ka ADDdsrscaxiodND6NAWpLCE zhU09Pe5jmPsiBw4gPEPiSR J2ROXyjEMaK1JncY8xPsAeU DAwMDAw D3MmzIFsJNkrC002XXouQrM 1XHGryaEeG0WrFPUsfZeoZo C8c9S5Hx7JJw77EL37LS20r UWgr5H9 fMA4S6SgMKCkbsfqhetjxVG 9CQCnWTBmkG14Qq6neLlbEm 5uTRSiZKH4XTBhmXGiB0Sdh H8pYtZb LTTvMFObV3BchOYuZXpoW07 9NEveAzF1EWBkvjYoB0ClUB LnfIrhCuF5z0L5Kz1LSMudj rc8R3Fq PjwvdHI+KF57PMMiWJ84wXA dwHQgh8bcjEa2XkKzWEJfLX Y3xMvaLPmdn0UyNPIoA53vi WTzs3U2 IGN (more content not included)... [facility] Coding Summaryon 08-02-2023 Coding Summary HTMLBase 64 RohkcsroFVv2uGr+PGhlYWQ +HG8YBILdL01lpWKcsK8eP1 NMTElOSywgQVBQTElOSyIgb bVrRN0dcSUmWBDi IC8+GS3jHARaHgdyzJPtv8H 4nMO0B70fmg8vMDjvsCM8CK KnYfSgynyeu9bxoOa8XBrlB mluOyBt LLZyvM54ORV1uV85Uf42fZR zuFElo2ofyNa6CaQbEVFzVC N2yIghXTkpo9XfVKWwL05ni KTgr1S5 AENqnLxlvOJrCiHarUN5dU1 bFCvfuckvk2kfeajsVao0ts 64uBHry5A4dYM1B0TnghG8A GJvbGQg QovddWNKyV2cdjerk3qyoyd sWbCeSTYpQXw1KXg2SFWwiV eyUuBcVV36QBP8RUBohpFvJ 2FsLWFs cHfwIjR2a5C3Yt1XN3EAEzg vW3UGUYGURZuhcFM+PC90cj 32M2RvImbiTfv6MMCcTUA4l QQ4jN5j ODEnKFeom0J8nSM4Y0PgsdN wxl2cs7juRIGrKMkiZ97luD Bkd7F5SQOtiFZ7YKNkkMbnB iBzaG93 Oyc+YDXraOhbu9YlBztbd5q ey6ulyNx5IqqoINIlvkCsmL vhMTX0m0QhFh7yRSVnhMZ1w DW9eI8d EdPaZxC3WMzyO157KhCdnJH cStklU85vU3ZzbSB+PHRyPj u1DHUqdVeoPG1rM4NfPATit mctbGVm mPkfMG7pIBQgeyqbCMZalI0 yBJEbA1g6RiZcYwE9SUwcA8 LfOPBunhpaMv36fG9uVxKsH oU0OKog B4XdgtU7ZMMvjHNjVVszBPI 5F07mk9C9MHGlOHGkCRD8pK D7jP5jwYfznugydCDlzPewm mVydGlj ZVarOAvmI503CINygThiFlC vZGluZyBEYXRlOiAgMDIvMj cvMjAyNDwvdGQ+HYPbWEN1f WxlPSAn uLKpQIgcAs6ziPbnsChqJO4 aUEQfguxgOJWzcM0yQMTocB WmbJsuMU6iMLPgokyhw908Z iAxMHB0 ODIpvOWjJ9OhoA5wVnXlNYL tKBWmE1TcmUWvTKueJ137IB jcHcC4GUAfhnXoA1RcJFFuu WduOiB0 p0A9Xa8Mo4DuotsxQ7BcqTC lRkLwLveaQUs6L2DcJxyxlW I+IK36KWUkMT51VVw1DMK7v WxlPSdi OGJtI4PsvD3dIvIeKDHhVLP kOyc+PHRhYmxlIHdpZHRoPS svUGGlPsSulMlnDB2dZm6kU GVyLWNv rKsefFRvEdYln8bdRDUjGDd uBB7gjGbhL0WpdAG5JIKyd4 v5Th56C19vW2MclDS+PGNvb US8mOP1 wD9uJqGlNmS3VSmiY263QgN shYFxXzdmq1mme4twvSr8Xg X6VSKroiEiwQhwCTU5j7XqR x83X11q IHdpZHRoPSIxNSUiIHZhbGl tte5cfN9gYd4+QVSrdZP2vW L4cA8uDgMaGwH4WDoaP888B nRvcCIv Bcbad6hxa1ogvYy9RqOzVKI xgdWfgMwrXFW6s7UeNi97Q9 WklDfpn2EjPff2ak19oHOqe 3O9jMX4 Z0YnRRYhsujmkAPbaIozQD7 vAUAhvunbLILgpT9kXULnV3 a8BsEpNyU9BVcnP9QwmzH4R GJvbGQg SPWirDHXuS1nqylsx1hsidv bCzWkCSNfTXa6BIm6KVEgmC jgWzAmFMS6RfD8XFT9yBWqa U4xlUlo wvxqmF3gPvw+GTR3uPMoiOE URP2cQlhceJA+MTYhLBE0zY diRZkhKVEzqU1rORCtE4x9U iAwLjA1 TPysC8XtmhS9QUHnaUKzOUG syKNLcS4ooqstl8qiboroJk HzMQRwUCv0DFv6ICYeeNxdC iBsZWZ0 FsB6GGO1fIUfqX7ocXhndtr bdB5uXst+FqbstQujFLY2WK h1D1BuGbz0HLQukYviPQ2vk GFkZGlu Jn7heMaxwBtwJA9rCZDjvut hs128XxCav2jiGZOtjXPcCT faAXN0E75mv9G1EJKaLTHuJ ON1vDK1 bK2bwOusrbzvlEMqkMqqbhT zoEfuILfbPCwiY222FAXtoU wvNcPmPSz9O1CxAtg4OOZxp NnpND8r lOJcTIigNb4zwTgdcLgvHK0 zRLWhyeeqi051EeSuu9xrCY RygGAvFDiwDFV7A07ld9N3X CMwMDAw AIS9aHD4nB8zyMamegwjeED mdDsgdmVydGljYWwtYWxpZ2 25GMNreCgvKeLrzKm1E4PbB uk3DKHp tLkwVX9fiJSqXHwcXn6nrFp axGyoMO1yCAErhtjbd988Cn Tni3wyEHVgsOVnMQsvFRN5A 10tn5Q6 MRNoIWLyOBW6iRT6hR5qlWk nbjogbGVmdDsgdmVydGljYW wyXEezC232KOTxnRikYvUls GllbnQg GEvdVBx6I5MrWohndVQ+PC9 2FMYrDP04pVSfzYTmj8hskW r7QpOqKMJcIRP2tUxgTWqkj 3JkZXIt G46asIApm3E8RIPsaQbqrOM zZoPrzTR0uN4uIMmknjick1 rrpluoMezzl9vwnq95dG76E 29sIHdp ZHRoPSIzMCUiIHZhbGlnbj0 vyN6vCz3+DDFobXP7cDL1uP 5iTHRpJsI5JPjuA909XoEhp CIvPjxj x4tun6bejJc1KmP3VSXfghL hrPrdSVR1w8RxOt69J65aRY dpZHRoPSIyMCUiIHZhbGlnb u6cfW2m Ii8+AJZiqSG3eVY5nB6kRtW dYvC4DIrqZ661LdFgqVFlMl bgN49qB8RypCV+HQQxCib0A CBzdHls OY7ffXEuJFnnRo6zFYH4FgA dFyUaZYdcI7QuWTKicklxwp pobAN6PVLmTVNpdX06Lh0kv DogMTBw dOHAcC1ghhbdt1pxobidGfU kDXLrUXa8KNy8RCLibPuvNc KsLTB1GfM0EKQ9qAIroQ8ds Glnbjog fU0eS9LbHSDrvoldFi13vL0 mJwScYoL8JLsjUjx+U0FNUy wgQUxFWEFOREVSIExFRTwvd GQ+PHRk TBA5yWvsWIfnBLVxsW9aTNE cG7z8SwJyNnX6JAzjG5CbXX NwnsvxNq10nU9aLzEdFhX8K UpyA2Wl hgW5JGQoeZBtEKgqANZ3V19 if5H9GZTiLKXlNSP5yPA1vY 1hbGlnbjogbGVmdDsgdmVyd GljYWwt MUtnV842AHHdaVdsNtEeJkA 2FoV4Pck5U6DlMpj4FHHiwZ lbOL1fxZLtCFnlFk0rkLoff DpnRW8q VCPuwzsrJYNbaG1yVTUsvDB vhPytZS3iTUCiwfbqz638Fk SmHWJ0WCBpvTRhZ6KcvH8mT iAjMDAw UQQqF9SbcQHiRWjqC723LDd kNsY0WSEbguAuS5NdGCTpdO vrMpD8x6T6Nv67UVRMRHDwe zwvdGQ+ APAzKSA6hWyuWCwtTOIotY8 aDWSsY4h0UjBxBhL7TJedP2 ZzBVWfdqxjDj57tT6cJdKkZ bR9MOwn C7JadkF7VKVunYLdTIrxXCJ 1E11gy0N0BDDyISGeODO5uI X0pV7wkLlzdtzmnOPwoMqlf mVydGlj JEbhYVvpG372YCAumTxzOz0 NLJS1V2CgRik6SLRjsFfmLE 0ctWYfOVppDw0nfEtdeXizL U5qRFRq wigcFZEqmB5mDPFhbEBlmCz vFV4aGGXuvfylf022FvSyFP Q6TDKxsDNeL6ScaH4zTpFjU DAwMDAw P2UwpUOtKPtpH963HDeaJpS 7GWVojtIzY1GrBDRemHbrAv A7v4Q5Kt7PSOkayGB+PC90c i41K9Pp HvciNch2VRGiJLN9bKU7rT8 zDZSdAUyjp3Q0lAC3B5Jdxu Ojrg1rc7wsKTNbOXtsG75hc CVeq0B4 JFQguYC1WJSgfAaiQbCyhE1 3Oyc+PDGcyKibe3YfRrusq0 wed9ohoHp2VmGiBSAbpxOro WduPSJ0 j6NrLa32Y30lMMmyLKAvRIM uTXQxWLHisElpwo7oiI6xLu 8+VZHhpCY7lAJ6vI6tRyFcQ bP4WOrx B984JdCnoDUgEyxcr1pin6g owYf4XuYdWTUwsjZdfKbaDX X0l2EfDt16N7BffQazt2VsC aa5wd12 oZXsr4C9wMR9Q0PwZYYfsyu xgZTcwRanTF3tDTMhlwmvAN GtvU0cHTJkC9k2YaAhHpQ3I PlwY2Bf fnV7LVThrPObJIFjoISXqV7 busqkg9swgpplYkOfMUPpZT y2YTm1GAIxoMqpYbIpIHA5D pI4UNO1 tLAmsX0qvRxknyyfvU5sLif +LSm5l8cyuRPoMY1igBY8PN 34XN16iRAvd5V7gHM1Z4CnL GRpbmct bauojEI9FXMeWEIatI61Je7 tbNnyQz0dUPOyWXH9RHHsiT KuQ7CvqT9nWdLtKSBdDXTuS 3RleHQt GKguE944GQgaXkW6SHBbunW tL1RcWILmtZbbSyM5n9L4Vn 8ITL75ZF60DN32yMCnk5E0c ST7U0Tz DVSxeengvtleoGZ7GQGfDYC aiC28Lr1cwAprSz7yPSKfLF B4PPLgdTXeP4EfvL5oFoWzZ DAwMDAw V4ZbrLFbWMpqW444YWplRbY 4ATSlquNgQ0TbHBSuiPpoHx D9h9H7Hm7IKo58IO86HS25k OAqe9O2 dWZ3A9FbDCGwxrvoyanllXR 5CXIfSFAbkM22Qp6byXwrAq 0kRPXkTSI1NWAkiTFmI9Cmt J4iRsJp GPGcEOKnV5AvhBRsJFdsX40 5RIglYiJ1NYYwqmPgL0UnMJ VjfGidWdD4n1H2Fd3KKPywt bz0Z0Pk PjwvdHI+AD59KTJnNJ70kIY skKVmo8vmbSk1VlOaUGVfFT O2pDymHZjgx2XlRLKoX26jv HHxa9J2 IGN (more content not included)... [facility] Coding Summary HTMLBase 64 JcyeunpxMCq7mBd+PGhlYWQ +QX9XSAVzB03xoOCtgO8eR0 NMTElOSywgQVBQTElOSyIgb yPnYO3qvPAoVJWl IC8+JH1nMAVmIrjeeLKdr8R 2kQI9D59iek6uQVzxhDE5WE EnTuCerpvhs7rlfRk9JYbkJ mluOyBt DOLnnI83MDS7zT67Gr74xNM yqRUmi8vaqKd2JnUjTUJiDD G7nMpaVBwdk4IpQOGbT93ka EKgo6Z1 YPHmtBlbxSRhVcQezCR9dD5 tOWbvyjgom3wcadylXwr0am 83rXAdp8C6bGF1Z1VhyxI6N GJvbGQg TnattCLIuW5wpaezg0eikqf wVxIxXMYzPAc6MMo0LYJpmJ isAfXgJF31OVH9XNDmcaLiR 2FsLWFs kJvhBxY9p1T1Kt1LR4HVEeq kS6UOAXBYICndbON+PC90cj 35R1BdZdfqStn8JNYsFJX4u NH3gS7c DXUaRWqqf3U9uWQ6F9WkpoC ifg2zm1pyNMNxSMzsZ54wkE Yqr2P2VYUbeDS4ISQjsNqvM iBzaG93 Oyc+DJVqsNykl6FmQnaxp5u lo8wliDx6YoykECJzhaTstR qqWKU9x2AyDm1qIDZvoYX2n UZ8nZ8b TyAcCgD1SDgzT369DmIacJA iTmecQ35hW7IfdMT+PHRyPj g1WYIwtRlmIG7uV2JaSPEpy mctbGVm lQouCE5cVGCacopiUAKlyX6 tGWLyZ3r1UkNuKoE2KTizL9 HuABTnvihfSa10yY2wGgGwE xL4GSzk G4PattC1XXPubHIdSXouMQK 1A24ep0K7UOBmEHUfAQE3eS L4mI2fuTctdycewHItdXkzb mVydGlj GClaUSarW071HSPztFdjYfE vZGluZyBEYXRlOiAgMDIvMj cvMjAyNDwvdGQ+VVLmGQX3z WxlPSAn eEXtYGozVk8ryDdrpNlkPT1 oFBYeycgzSBHjkC3bOHPkiZ YeaRflUC9mYADmcewvb671C iAxMHB0 MGLrqQHcF0JgbB7iEcVzEUQ aMPWyB1RouMDqPXmhM216IS wxRyH5ZODposLmF5MtUAIgx WduOiB0 g9Q2Jf1Jq6BonclpC1GkmLP jBtSoTnacTSc4A5ZnSovsuY I+KM88WZGtEZ71XFd5BGX5l WxlPSdi FCHpX1UnxO6bSnFiJHGvNLN kOyc+PHRhYmxlIHdpZHRoPS lhEXPbWbWuzHdmIX3bWu2qX GVyLWNv kRtapAYrOtYds9rqSPPrRGg wKM6meGkkH4CxbTK9IHBve2 z9Vr37M82lP5MccLG+PGNvb LH5wUM4 hX4lNxJbFxP8BHmcK957DcG zqKWyYejls8wfp7wghWb2Ra M6BXZutcRijNosJBF1m8XgU f75C37b IHdpZHRoPSIxNSUiIHZhbGl amo4nbM7eCj8+KRUwkMP4jK P5yI1hEjNmNvG1KHyxU254O nRvcCIv Svzef0ysc5owoIn3NzPeYMI zmgJwkXglQWJ2q4QqDk32U9 ZepOczd8NeQee2gc59uNYuk 9W5bII4 I2SjLKSyfvzwlFBlmKevQS9 xPQGxdwfyDMYpgF9qRDTaS7 w6PpFqNxL6EMscW2FiwvJ7X GJvbGQg XLLvgMVItJ2faxwnb2hrzou fAnWyNTDgYDw0IHt0XDTrmO lfRdPmVAN6WpL0QFV7rGOht A1ngYmk hwearY6eQti+LAF3zBGrsEU WOJ5rUbicrHX+NIGpDWP3dF wbXYtfRPFncU2aVZPkO3j7Q iAwLjA1 USwoC4CiadM4GDHdySBiIYF enASBhO9kzjzdj8gqimunEo GuJKItILv8WIk1AVXzbEkrW iBsZWZ0 GxJ6ZQS9dKMofI4yzUmskoc spM9iDar+IkhrmHnxPNO7CD b9I9NcUlu1AKKvtSwlXY7sf GFkZGlu As5wjLvadBjwIH4yUPCalnc kf040LpXbc4chOTDlvQEkRK rpRUO6J32vl8Z5OMHvEUBqV RP9iIJ9 vX8mvCrzuiiiqHQxrFmwtyP csUvvODrtKMbxL028QBWjgZ udLnRuZAv7X5AiGor2SJAgl RpgVV4b hGXhOShnCa8raGijrEdxHU3 gDEAqclgpt223WgIfx7hpSR WlcTSsDJvyIYN5Z77vx4W6S CMwMDAw PLN5tWS3qI0szBcodhgzkDQ mdDsgdmVydGljYWwtYWxpZ2 69ARXtmJuiZgCidNq7X7BcS hh3NVZz kHxmYB7scLJiSRenQk7aiUz mwNdsDD9bWZNvebwil024Pp Zdf3vmDMRfjTFhDVagNQM7U 23oe4C6 EYQnNVPqEUN3lMM9kV2jfZs nbjogbGVmdDsgdmVydGljYW nuAOfbV262HSNumBtlAyPur GllbnQg GIsrCZx7T2XbEusezDP+PC9 0PSVwSZ90yTUxzJYud7fmhA y3HiVbZWZnJAJ7jDwoKJkiv 3JkZXIt H75fgARuy7C3RARmuThleOB dCmXvhKO4tW1cUFxewvlhm5 bekkxsRdmyc2hkgk00hT33S 29sIHdp ZHRoPSIzMCUiIHZhbGlnbj0 ogM1mFa4+JVSteKK9kEJ9eU 0lBNLkEcL9XEnrE065KgIkd CIvPjxj k8hyx5exzYj0HrS7FIWkfmV mrFtsXQO4u6KnAz23X89rLR dpZHRoPSIyMCUiIHZhbGlnb k6daF5i Ii8+VDJokFG2tHT8wL1wYeO gDvP9TVtmT823GbOxbQNdGu ruL99bK3LwsJH+PITdJiv8U CBzdHls JO5rcGSjTAkhEo4tSRF1AzZ nHuKyYLagR1VjIUHffguaex aafXO5YAXdOKLdfA14He6xd DogMTBw iLJSjU0khuzhv8trifdrJbU rQMZiAYn2CLw2UTDbvZdqCz NpKLU0DfN0ITR0wUVahK8ui Glnbjog vW8wB6MeNAInmjrkMl55bU2 vIyWlWcV4KPtaXsv+U0FNUy wgQUxFWEFOREVSIExFRTwvd GQ+PHRk GGD7zBshQMmzMWToyH4vVKF qI7x6HkFyDzM1QKegT7EmVB ClyyixOg48rW2tFnBtHeH0M VyoD5Df dwR1WPRmmYAyQUqoJFC3N66 ie2T9MLOyOZAbETF5vOP0xC 1hbGlnbjogbGVmdDsgdmVyd GljYWwt FEseK402RLGhjVwcTzLeUxF 6KrL5Kfs2D9MgFsj0RYVcpK ceTI0ivVNjDTvkCb0zqJnkg SsrJK2s KOIrgccpIUZvpV3rDBJalRC yvVcqQH1yACGwzdcmj644Ip XtCMT3LDNasJIbG3FfnG9pE iAjMDAw TMQmK4NwvVWdDOunL785GTk lMgG2XMEuanHyL4NyBVApoC yjXjV7y0X2Sk57SFPLMLHnh zwvdGQ+ YUWbGBG2eGfyDTpuGOXzxL2 pKDMeV7w6PcAfNvY8KTsuX7 XtYXGfnttpNy22zO5xEqSxP kH6LTgl N3JwtsA7BRMybPErDFpoAQN 4H06iw4H5VZCnZDQdKIG5aL M1bL0yvCbknikrrNDvnQgli mVydGlj GVkiIZfkK458CSLvuEscWk1 HQMB3L0GpMie7JBEwgNxoWF 5rjFWoSXvaQo1fqDwjbCieA I1uVLJm fqrnTDLxuR6eSVEwtTUhmBx uAR2gTTLwqrbku857LrPlGI V5BBNwrBVvU2ChnH7pLtXwC DAwMDAw J4FptPCgZSetF553PWaqWxB 4ILGjsnRoE1MtVEWgeVdpWx T3f9R5Jp0JDGmybUU+PC90c i87K8Et FppbWaa5CKZaFCL4eLX7tS2 mDUBnKFcil0T5sNS7P0Ahel Jbzu7ga4owSGMnGZinG96ow FPol7E1 BQNqzGL3SJBinOcaPpLmuL3 3Oyc+SCWeeSqhg0KxBgguc4 kzp6lntBq9YmIoRGAzpjSnd WduPSJ0 o5MdVu89K48gEMuwVXIpFXM kIRCuVFLccThvwm8fcT3bYe 8+XEYipEP6aCG2zI5pIqZfW dY1ALzt B987KrBaxMCjRrbue6eqa9j waWx4RbRrCFAvveDfbBvsCK J3c4YuQg31H3FmdOcrj3EoA gr5gh22 yUFay7I0jWG9W2XkIZOmutu vyEBnpUyqAV0fPQPmyrtuUR UkpY2rZQXuC3m1TgFiDqQ7A XuzV5Ee xiO3IJBkvDIrJKDntJJRdG1 mcxdue3evbtgiKvCdEMPiKY f0WHr8PXSvnIalDeKxOEJ7Z eQ3UZO0 xZOrsX0arYamelfhhU8qQwk +VVv6x9tibQZtLK0dlCC9CE 78BG52gMYma1H3nQR8S3UjK GRpbmct galdqIV6KWIwXVFyzB47Sv7 vpPrhIf7wUDBrMOU3YAPgnE JdH4AthS6vUpJrDQPiYEDhO 3RleHQt OPvjC087LSsaWbE2UANznlK uI2AnGXOjgMndQzW7s1C6Jn 4HBA58HZ07OJ77rKCnr9R7h NH4X3Hd UXVihwfxtzjyvSD4POHdIUX rmZ55Bi7vcXdiGc1jHRYlAU F5VWXucHFsM0IdzH3zJvNdH DAwMDAw B2NkcGHdRChlR727DWupCwO 9FFAsoiWfG3YcKUKmmGtfGn I8p0H8Tw3ESq71DM53JP40n KVkq4K8 aKQ7Q2EaNVTuxelhvjwvnOP 0NHQiYIGppB84Qw5edRzfAo 4cWSZtMYG0KOZsmVKjR1Ybd W1tRjHg PTDaCSCsL6ZxmSOsRNwdZ58 6BQdlZjM8JQPnbaQeL1RiEW AnzBtgGxP4t3A7Ef8BOVvgh hi8C9Tq PjwvdHI+TW67OKWzSU73lAP ggULry6zcuRw8OjWwPDOxTW B9yHhxEPxxw7OkJLIcP85ne VQvm3U4 IGN (more content not included)... [facility] Coding Summaryon 07-12-2023 Coding Summary HTMLBase 64 AxpcrlwcTSw9rSq+PGhlYWQ +GJ4VSCGfY74swVOpoR3tR2 NMTElOSywgQVBQTElOSyIgb uPkCM9itOXtEVIg IC8+BV2qOJDbRypgpZGsf7E 2tWL3W69joa8wZIrhoVW0SO WdLoVivaalv7lplFh8GJszD mluOyBt WBZvwU48OTP8mJ31Pa40cWY kbJIou0frvSt9SuCtWQRvOE D8mKarGLasn7OxUHPhK28pe RTmp0Q3 VQHjvEoteXMzGnRvzDJ1zE0 fQCwldhglj5trflgkPcg0ay 87cBZsg3R7fLR0T9QxxpO1U GJvbGQg CuyztDVHcX4inisfa7hnszw fYsJsIYDnGEn6PHb3KSWblE nxYgZwBD50GQF8SUSfouFsL 2FsLWFs kKyyPjT4w8Z5Pn8ME4SSTlu gE5TYIDXHIFbkbUB+PC90cj 61I8ZpOjpaYbv4QGLzHXV1v VE8aX6r UUCrBCuee6D3bJO5U4HsxmD rpb8zr3tgNULrJEgiW92ehK Lwe7N2RVIcuHN2PDUhlUuxA iBzaG93 Oyc+LKRkuVmcs2BzZogbd4f om9ihoIm5EidoEMFxylOgtF anOTU4w7RrAe9sIMXjgUV5w FX0wU4c KpZySrX6JWexG835JcVkaGK wRrmiM77hT7YngSU+PHRyPj q4QOPekCkxUR1dE5BgVIAur mctbGVm wVqgFK9sDSUhjrboREAkyJ8 xUEBbN6d4OcZvUdH7LQgqW2 ElINSpntmlRh43iT8sArZgD tX1BZhw U1VxzxC5CBRjnTDgQVjyFTU 3X80jz4B6ULXrBMKgOYJ0aY S6pQ9daUniekakoWNinIxyl mVydGlj CLaeDDbsY268QSVqdKnnPfO vZGluZyBEYXRlOiAgMDIvMD YvMjAyNDwvdGQ+CFLlHXR3l WxlPSAn jMZbIVkiGr4kmCtniKodFE8 wRFXceccpHAZdcV8qFYSspM TiwJegIV9rXAKcrcnjp529D iAxMHB0 QHXpnBVqY9JshU3lXkKrUOE iCJMcR7IfkRQiXKweN320AC oyCcS4XATnqxDcN3WfKGKbl WduOiB0 s5I0Jq6Id5IrdayeV6OysPZ kWiZzFaugNPr3Z0RwOwdxwO I+JK10ZQRpLS77XJl2GHG0o WxlPSdi GUUfB2ExpU6gWdPgMUXjGYO kOyc+PHRhYmxlIHdpZHRoPS slWGXlKoFfzBwaYU1oHh0eW GVyLWNv uTuurPDvXkLtl4aoCFPuDMk xZQ3pjPsnA3DitJE4WWPly2 k5Fk53A13lG8BggVU+PGNvb HE9zCM4 uC2rVzUeByQ4EFixB729ZtJ duHRgDbywn6zts5fppCp3Av R7RZXnkjBbgKysDJY3b7KoL p68M36i IHdpZHRoPSIxNSUiIHZhbGl mcq7fmW4uFz7+YZCyuXC2kO X4tR1tNbFoXiJ3BUbmS846Y nRvcCIv Vehfz7tyq1vlkVv5FlXaQTT jzhQwrHirPJF7k1FiWz82C7 WyaXoft7JjMtl9ls48jOUsg 5L7oWT2 V7KsGFSgqfhdxECaiNyySU8 kCPVpqutsTXQubN6eWYJyY2 s4KwQmRpE4DKdvF3SsmcL9J GJvbGQg IBZxvUZYdQ1pdgjez1bqcji nTlJdLQKpEVr8TDc1JZIxlO uzZmEvLBA0ClQ9KLJ3fDNfb P2lbGzp ktrqtN2hDpk+VHW9qMCijLT UVT9qKwdngUC+FWToXPP5cL htLQkwEREgiR3gVMBuH5h0H iAwLjA1 FZhkT7ZyyyQ5PANpqRGmNYT kuTCJhM9enpjbo9nvkracKp VmRQGqXMm0BZu0CXRawZqkY iBsZWZ0 IuS0WLF2nOZehT7juOlhmtj qgG6gXqw+AsfleZirCFX4QG q6S5SvEku5BDCixXlrOH0fp GFkZGlu Vq0vpOcbtJslDN8bJFEsrbe sj999MiYri9hlNOMqqAPrWM uqPEU5Z14sy1V4SDZaNQWrE PW7pCV4 yI9xcKbcsfssxDSavRdfhzM uyRlqUQsoNVgeH322FIPqpV qvArZyUXu5X9SzZxs8OPYmy HpcXC8t lHEqYAfhIy5pwYdcnQhoCO0 wTGDfujiav914YdGob7lyJU RduTCaEEtiTOU8I94hs0B4A CMwMDAw MFL1kHE7sM5vkRdaxvymqHZ mdDsgdmVydGljYWwtYWxpZ2 91CFKpnXpzByYofQx4X5RtB ay7ORNv iOyeHQ9jdWQgMFnmCd5euEp lrWceWU5bOBXzydfgz798Ge Lln1sjXZSwxDIyFIumSKR6P 74qv6J3 XXAqDINuWAE1cZS2fQ1upLi nbjogbGVmdDsgdmVydGljYW yxEVbqT893GMQxhRjuSzApp GllbnQg MKysFMh9K4YnZglnvVQ+PC9 0XRCnOW25eKFsbTWgb5ytpJ l0HxMtVCUxPKC6mAhcXPvqy 3JkZXIt Y24ngCAjz4K2ILWavOitjFF zZmEupOS7eT1tRAhshbyps6 ihtycyArlni4kwts63eW04K 29sIHdp ZHRoPSIzMCUiIHZhbGlnbj0 snW8aRa9+CBCjmAT2yYI9fD 9lNZOuWwW3ZIvqH904NgWho CIvPjxj x6ich5qyeRt4FiZ7EHQfecF gjTkvLOC5j2ZeDk56L90bGO dpZHRoPSIyMCUiIHZhbGlnb g1fvD3x Ii8+KPPdkLK5rAT8rQ3hWuM oKaH6FDsaW820LiFviIJiTb awH07yP0ZizAC+OVHaTid1C CBzdHls NW9tvMJfNVaqKd5lGHK6QaJ fUkEjDNjsJ2BkZAJxeuqmye ocrHT6IYMgKCFvzE12Mx2mv DogMTBw rHJCcH4gptvjh2tuxstiFmR rUWWxIUj5KXw0LPImoZpkEi EsDKV1PsS6QEY1hMPtnM6pa Glnbjog dN0bD2OoFVDboyklVp55qJ8 aQyXaZcV8ZZhlQqw+U0FNUy wgQUxFWEFOREVSIExFRTwvd GQ+PHRk GSV6iIwrJBwdYETabP1pQBD uC1n3SiNwUjA5XHsrD1RsRH TgashbVq49vS3nQrPcLrJ8E CylJ7Im jiG3QURafEUoEQuiJOH4W37 us3M6PLPvOREcVHZ4uTN4vC 1hbGlnbjogbGVmdDsgdmVyd GljYWwt FMfwP679UNRbsGnxIgTwTfQ 3AwN1Jvk3H8AqZur3MWZehD nwEH3ilAMrISotFh0aiJjdl QzyLM9k TUUwoemtWNHllK5wLPHabFJ kdZyzOT2qUSYmboyld268Hq PiEVZ0PUDvvRVkL6AaqC5sJ iAjMDAw PLZaP7JpzCYwSTfiY972IKk hIhI8UONjhaCzN4ViKNTfrO ycNrY5k3Y8Ft50IFPJJDIti zwvdGQ+ CLKnLRL8dCyxRGlsEUTgtC9 rBVRlA5g7IhCtQwO8SAupP1 EzHOKakoliJh46xJ2pOtNrT xQ8RMro J1FilbT0BPRttXXaQLsbIFK 9I19cw4T4QBImAVVoJSG0mN N9yB0snClxslzscKSziZzlx mVydGlj EKxsDZstE702VBDkxXxwVf4 FZEM9L7HbNxv4FQLwxEebXY 3toBNcJChkIr8csItvjQbeU W7mCDVk enbxWTWcfR9oWMBwiQIksQl qAV9dWNNkrtxxy923SwMyGS V1SGFetOPwG4XphT8qOpXaF DAwMDAw U5CefGOfEDxcG649CAwyUrQ 1ULCzftRkE2HjUEPzaBjlLj W5c0A0Xx2CTLphcLP+PC90c a84O0Jf ErofDpi1CBOcNIX1kBP8kG6 pOIBaFWnll7B2nZQ1F4Uqhi Ueka2cd0wwUWLjRIrlE82xk VRhx5F1 QLVfmGV1FFBmcJauEiNzmN2 3Oyc+OEMtkHqiw5JmIhmoe2 zqj6plxPl9MdQfEPUrfeNzi WduPSJ0 e4FaIp24W01aEGmhIEKpBJZ xCAUoKEBrhCxhji5xzK8zHo 8+UNNtlQT0yOZ7bW3eBqOvU wE5ZElw A867QaXgiBEaRospv6pse3y eyVe9PoMvSWLqpxIwnDzcMS V4y9FyAy18K5ZwfBvjl6JaP jn1wj98 pQVbf9W7cVO2T1UgLMWblgz kfAVatRqwBU9vTGBeirfuIZ GiqO4vLNMnB1v7XlLpNrO3W OlnC9If erF1FRZygSAkUISfhKPXxY0 vfhmve3qvisbpAlMhVCVvZB j1BNt5RQMslEiyFqNqBTP1R tP1AER6 ySLraH8cjQjxtwyatK8eStp +EGl7w0upnFUuWS4spSC2KC 53AO43vMGkk1O5uZI8B2VkW GRpbmct xisvoHX6AHIvJAJgdT21Tw0 xhBjfDv1bYTLqUDW0VEZntU OnC4ChmQ6fKfMvNZSvEUXpZ 3RleHQt JVayN463AIcbRhU4YUCxckL rS7KyYVVkeGpmSkH5l5C8Hd 4XHR38XH58EK47hZLyb3S2a XD7G1As SIIpzsihrttvwGA4BGSxFFS ddX69Oy1zvSbnQn8jLWRtTF N4POUvhDUnQ1AixF5xPhEsJ DAwMDAw V8EwnTTrUVovK687ZUhyUxR 5OAAimxQdA6TfYQWxqQrnJf J6m3I1Hd2HGk42FG82JB07f AUfh1L3 lWF9N4YmEYStadmhwnicwWZ 5IGWoWRQylC08Ny4aeRopPu 2zTMAbSOB5PTXgnGUwN8Iqm B9nTaJc ZIXwEXTkQ0BmkFAeYItgX13 5XZzxAgG2LIRbxhSkI2LfJF HfwQtfBaR6z3T8Wc1VDSece yu9Y5Ob PjwvdHI+JF39UTMlAS85iWR nfMGnj7nviEb2QqRhZENkQG H9fLwtGAwug7PfXYGvK80yv AFgt1W4 IGN (more content not included)... [facility] Coding Summary HTMLBase 64 JggdmghdIUb2wZf+PGhlYWQ +HK2PGNShY44rsVAdyX3rZ9 NMTElOSywgQVBQTElOSyIgb iNtSL2zvAJjJNWu IC8+PD8zYJTyImorpIUaz4B 4lPT6Y12rau2hFIkdcYJ4FG LkPzHhdsgyr3cyrPx2NYqfD mluOyBt YUCwlJ83EJE3pS09Li45kAU zjLGgw7bbvNa6VtKtZAIkUZ I9yTurNKgzu7KsSLUbY45fr QGvr9T4 LDWpvTkcaPLkNrGdpDN8eM5 xSPtkspfvl3fojaafNfo5xo 85xYTpj0X7qLU0C2GskhN1N GJvbGQg HqzarXMSiO6vufpne5glfop vWyFwDZStUEe8AAb9JTMfnI jsEkYjLK13WWD3TEGktsVkS 2FsLWFs qEwhOfK3p7H1Al9BN3NKZwf yV8FDRGUWBYmvwNQ+PC90cj 84E5NeQkfxEwt9JZRvVMX7d TA2vM3j PGFzIYxvd2X3nAF1Y9YvylN tky0oj1adUALmWQvnQ94lrV Euj2S0OKAdwEV7TTDbgCxsC iBzaG93 Oyc+MGYzfGres4SjTigfg9u md5udtWp3VzjqXAItdbKjoP vkPKA0h4LkZu8bRWKkvWJ8v JV4hK6u ZhDmDfU8FVplZ213PsJgeYI sDnwzH74eI8UaoYI+PHRyPj o6JIHfsJdjSN8bI3EnQLRxq mctbGVm wOnvDR5sNGPxkuokDCUyoE3 iTRDaU5h9VlVpSpJ1FFpiS6 KzYNIgsmfeLn05eG8hVjJsF aQ6NVej B0NzedF2FAVfmGPsAOomWYX 2X68vv6Y3KLNkBAOkRWM7vF F1rJ2vnVklwzgnnFTwwIjzf mVydGlj JYnpOCehJ121KVXejBsrTvZ vZGluZyBEYXRlOiAgMDIvMD YvMjAyNDwvdGQ+LCXaOXM1c WxlPSAn rILyWFmfOg2luOwcxSsnZP8 oDWQgptzuILBuuY7tEZQibO DvyDydLR7qPEDcxedby336L iAxMHB0 HYBpkHSyT4CqrU9vOuQsWUO jYZGqP8WxsCMoJIbyY007SL mnIiX3DHXhxyCvL4UzNGMer WduOiB0 z0H3Td7Bj1OducdhN1RprBB xElKeOymhUBs2L3IrKbnijM I+FO93UDCuOE30YGc7WCG7r WxlPSdi OCShV4PxsR6cPkJtQWFaURB kOyc+PHRhYmxlIHdpZHRoPS mxGVOfVvHinXqoOO2wWm3lE GVyLWNv qMmdjKCkTjYxh7ghMNKkWMq eVN0iqEmxB8BjxZJ6LTAqv2 m3Pr47C96gN4DeiBV+PGNvb YS8hUC9 hY6dClYhWkY6QMfhL251ArM cxGBiSeako3wod5dgpUp9Vr A1HUHlhhKraYfoKTI6d2ZzG r01D02r IHdpZHRoPSIxNSUiIHZhbGl jai5goB2rJp0+FJKggTK5mQ M1qG3aKbOnCzV9YXsbR899P nRvcCIv Sfbne4pyk7eqsGs9JcCaEPD zknSjhZxlHBJ7p6NxUt18I4 UywDvtm1IuEgw4ng73lBVtr 6K2jKE0 V5SbGJDbghsldSWvzCiqDM2 nWWAfujpgSBRebU9hDJBcE2 w4UqRpPnI8UWoeX5XwlrQ5A GJvbGQg PWTwoBSRhU9feitmn4fpqfq sTwMeEGTaWNa0OCg6USFnbY obJwRaUAQ9KmQ1SRA3uOZqj A5fzAxt vgfuaL2qEey+NWL2lAVwwTL KJK1vRxkouVO+XXHnFTR0hM snORwrLOLaqC4qCLJiU6p5E iAwLjA1 WWvnZ6UznlD4DMQdoHMsZAB maRVWmB5xhjeok2aevoutMr IzMYMyMEc0CTn4DLNttRiiT iBsZWZ0 FqT1HON4tNIjgY9qoHdumgu ifV1xNil+NuawuZoqWQE1FV z3I6JaHsx8ETWcsVohPM9gf GFkZGlu Ds8rtCmnxQsmBY0hCETwhun pr286CbYoa5wtPXActLIuMJ ryRCB3W23sb2T0WKPxJXEzV WH1dAX7 sX0qnVruoywgnCRvuVzrjdR kzNojWUwaJJwuM434YDIcnL xyGsGnZYt4W4NuMgf9MNSlf RboZS9y pNBmLCwxTh2djUfouNabQK8 tZCPactfzm663LnPjl9dlBA FuaBCuOAaiYKA6T11vt0Q1K CMwMDAw BQA9kIE9fP8pqWbvojjtpWP mdDsgdmVydGljYWwtYWxpZ2 13ZCLirSdnSdSwjWo2K2IgF ms2IKAo nIlaQH8egKYgUDmwUv5lbOj xyFqwXR7nHEJcjeshu021Nn Oaj7emYXTdqBIqZIdpZOZ4W 90ef5H4 RGBcRMKqUGT8cTK5kA5mwBm nbjogbGVmdDsgdmVydGljYW gsORyoN675MBXkgOcxKlNcz GllbnQg WWhoBYn3S9FmZmpdhRB+PC9 8MXZhNM72kDWtqSSlf5psbY a4BeInPIHsYFX4rBqrOSaat 3JkZXIt D19jcLRos2H6ZHRknJyzeRM aDkPtgFN9zI3tCTnvwgbsk9 tmwqhiUzxut5swyj90oA05J 29sIHdp ZHRoPSIzMCUiIHZhbGlnbj0 qyB4hNq1+MCGmhAF5gPZ9eH 1uAHBnXtI2NTyjM607DaRvs CIvPjxj w5ajn2hhzVx3HdV8RJZvtsH mjPnyJDE6h0WyDb25Q02tKI dpZHRoPSIyMCUiIHZhbGlnb b2rvE2u Ii8+NLLpjJM5nMF5tS3lLeB lByW9OVkpS906GgSbgJUwTz jrH67aA3CtpMP+TGEmYpt5Z CBzdHls VD4pgCIfKOqeCg9vWSH1HmQ mRjXtJPljL8XeNBNseoehjb dofAA2EXPlMPZrhA37Lo0oo DogMTBw sGPCmX0apelzw9xosctmNgT gIJObKSh6TKl0RKKvsUjrJa KjLMK0QrG6BXX1fYEqvT6sk Glnbjog rC4aP5YaMKMoaunzCb68hY1 yHeCcVxE0NAkyOab+U0FNUy wgQUxFWEFOREVSIExFRTwvd GQ+PHRk RTD0oDprXIbiOPUfeS0yJSB lY2v5XwZuZuV7DZuqQ9OvSH OsgvyuYs33cB3zYwGfMlR6P FqfJ6If tnI9XTKbwJNnITixAKH4N58 mk6L8CLWsGPEjWYY1aAE4tQ 1hbGlnbjogbGVmdDsgdmVyd GljYWwt KUqsY405TIDokQtyHyLlIyQ 0TcF1Iqq1V8YiSif4FZMtuL cwIR5dmFZhNTuzYz8oxPcht GhfII7k SOLbaxowJOLndW5iGEAixIR hyUlmLR9yNLKtajdkw923Zo YrRHJ4PSOmpSZxF1MpcO5kI iAjMDAw SHOaI2BbxFLnFVxpU832LJr yCqV1LIDapwYwU5ZrSKKzvU txOlD3v3U8Tr81YCCIBVSdd zwvdGQ+ ESAcEMQ6xRzyGKzhRVVgfG8 yQZZtU0b3CoAmPeG5NZxgF6 EcBFTftdzfCh36zY9vTaZjL rQ5XIte V2BjwmK8HCTnwRBjSDowWGM 7V43jb9K6LMJiFADnDRX7aP N5kG6cvTlqsailxKCorDmzk mVydGlj DSzlJZbgE569WVAvfAgoWp5 HNEG2R4LfFcn8QBJgiXdhQL 1ujYOpOMdmBw9pwGxwtBejB Z1tRIZp makzCBHwpK5fTWUooTJsjKc tNC5fNWBxepqzp081XdVjLD A3JQFtuCJxG8AurC8pOkMwT DAwMDAw G1GnyMBgVMkbR292OQkqKvT 2EHZckzRuE3RfKNQlaTwkOz H0w2E7Jz3QEDqkxVV+PC90c n76M9En QrysWta7ETYnXNV3zFC0fM8 qRFEwZDwsa0M3eNC7U7Piwv Goxx0ql5bgJHCmFXweT20mk MKld6T3 LRIwrYD0NLNfyUuiOaFofT8 3Oyc+GCCcnHpdq7NnMuxir4 ggt6zkuAi3NyKqQWRtblIrz WduPSJ0 d0XqHs52Z22hNLqzKKCaGON tCTZoIIKokSwree1ljI4gTv 8+JFPqaBX1yRZ0kA4gIwWsW aK9HBux I092XeHfyUYeEwlaq1dxx4c ihKz8ExTvXMHqjqJliNkuZF J1q0EsHh63E9GptApvb0QuU gi6bd52 wFDdy4W1lDU6H0HiXSGocaz jkUSpaBghZG3oOEVxmxceWC JffB3vZSAaC2r8JwMrJrX1V OqoN2Wh avG2TPYhwXUuSPJnjBKGxJ6 rrecmw4glkpxlJtNjTOGqSA n3ZJl0TFDtdDjxVbRcZZW1V dC2BRU5 uUVodA9eaCwldfeluP2uUcw +HIc0g1dvlPXsEK7xoJQ0FY 76WY38qHEfo7Y0sPI7F3DrM GRpbmct qhhleEM8COBjKOTpsZ73Ut0 kdOaoNo1aGMRlPTR7JYTjnT ZpQ7LfzP7bBpYxCWKkMKMzN 3RleHQt GKprR816VSjzWnB6RMQfpqT uP4BsBACznEjzOxW2e6D6Qs 2BFC18RA63OU03dPBxm1O3t LJ1U7Fn VBEdwqsjbkzlvTK4FBRtHSY wkX69Hh3tqRjlYe7kYZCeMY W5BTFnhLNcL5DiiH0uSbUaH DAwMDAw E2UmyLVkULywS967GQvoQrN 1TUTxtnRxI1YdDFMjnUkiZb F6g5Y2Nf5CRj63LW02JE70j HUqc0F4 sED7B4FfRXLdkxxbbtlwhFD 0PEEkHNYsyM89Fc1ogIijXg 6zROYbGEY4IVGsmUCsJ0Aax F9cTlIq TPKqKIVdX6PzvEQoCMiwM98 2XVlkPpX8RBUaoqOvX5EdLK AhoYngBtS0h3Q1Bs2WXDtyy yq9M5Gl PjwvdHI+GJ20JXPxPN91cUH vpPQkf9jtiRx7ShHcTWXbIQ U3dYusYLsnt7NyPLKwV69oo TCib0R3 IGN (more content not included)... [facility] Coding Summaryon 07-11-2023 Coding Summary HTMLBase 64 ZnoajptoWUd8pGj+PGhlYWQ +YN8NRDJtC42dyONkoV5qB1 NMTElOSywgQVBQTElOSyIgb ySdJT6hoMGuYBNs IC8+RT4xOQTiFsksjWFhb2W 7uQJ8V59zar6qRPdbsQX3DA MnOzIvoxqmb5tuvKs7EDuzP mluOyBt QEJnxO45IEJ1jW26Yr25gMF soGVzr3unrBq8VePqDVUxBH S7uJvpXMdeu9ZbDSRiZ57li NFqb2S5 BXNflQepbMNqGfZfeTU4lW9 tBIfzkwwzb3hyjdwlIjv7rz 53cBIgz0W9dYX2Z3YvaxK4A GJvbGQg JbqvoKCJgL4cwjkxf8karza cSsDnPDRtVMi0VLi3YXFbtA kdMqUbAW66RWP9HHFagnGaB 2FsLWFs dZnwNnS3f0R7Kd6OL4UYGbg iC0EFMBCNSDdjkZN+PC90cj 08L0RrAcntAmc5FDZkQGP2o GM5hG5m YHShYBrku1Q6yXD7E4QsfvQ gne8zi2plKENeQWueN50onN Cqc3K7RSLzySB6QQVhtKwlN iBzaG93 Oyc+LGQziNlkk5CuTijkf2f lz2dnjXc4VubuPTPbtxMefT elECX9k0InSh2oNPVgfHZ8j XX5aM7z QzJpRjE5DZttO839OaByqGN vAdrfI52gO3InoPS+PHRyPj e6XISrqOgwFE8fT1ZoBIVgu mctbGVm nZtdHE4iXMTqxlmuBXClsL1 sMBJwC6i2CzTtLyO0WCfcG1 IvAWIoqwodLn94hT6pUfPmB rA2STmj D7BkwsP5PGXveEPwFAfePKT 2V03ap6Y7QZNlVQQtTGG9dZ D5wB4qnIzdjdchbAXhhSzvk mVydGlj KQqhNHspZ132UTJscHetKmF vZGluZyBEYXRlOiAgMDIvMD UvMjAyNDwvdGQ+OTJfNOS7u WxlPSAn cTOaSVzjHr3rbGpxwEypQN8 tTWDndrlpUTZxjJ2wKMUluX EubZarUE8oFVRgefjfm884T iAxMHB0 VFNcnIZrU7WpcX7lIsLmGQJ uCLVyK5CkiWObYXdrK604VQ mvUmV3ZZDpdoUjP3OrRSIik WduOiB0 f1P8Tu4Oh2NwuyqoQ8EnsIR yJiTnJmroLQj1M8BjDxiehJ I+UE71PMMtFN82CSu7PUM7l WxlPSdi NZXcL4FoxR6mSeHkHKNwGQS kOyc+PHRhYmxlIHdpZHRoPS urIXGxJdDdlJtzTJ2qLf4wG GVyLWNv zHouePQvDsWfz4fuPWDsTPu aPS3lyIyzU3JnoGA6GPQgg4 u0Br12X04sX4HegHF+PGNvb HQ6yNC5 eG1eUdSbEwV7UQyaS522HrA yvWAtZzpys2kcg1oapOd9Yp G5IMPlcwKqzXwoUFD1w1IqJ y12Y90k IHdpZHRoPSIxNSUiIHZhbGl wsa7ifG0uSo7+BIFpkAL0wK U5pA1oWjRcMdK0TDhnC161Y nRvcCIv Jvbjq1mty7oinTw5AnTvGBP wnfNxnSnnMQY4c4PvBi97R9 FkxKmvm8FyUsi6hr23tFLtv 3A2eAW9 G2TiIYLzbfkdlQUedXwrLB5 oAXLavhxbBLQfdY4wVWGkC7 a7XaMrJhX9AWipY9VucnS0G GJvbGQg RMJkcPKLiS2zirbkl7opokd mXaQaWLTpYKt2QUt8DCTqmB kyRsZbGYC8VkU9KGN2lBDoj U4xyDdj jyzreP3cMsl+FML3yAFjfRM DXK0rFdlfiKU+ONCeXQX2mK jqWFqyPAYyoA2kKWFoY6p7G iAwLjA1 FWzwV5VyxiW3NASjaRLhMBL ztKBOmF9wvcvyz4ftjmxdLq YaKMSoJHn3VIn3PLSteDppO iBsZWZ0 OlO7LCG9pYIjzQ8arNklttk qlB8rGaj+CobupQtuTLE2ND f8S9LvWgg4BVSrqDcqPH8dh GFkZGlu Tb7gaYcmfTymBB1nYWRitlf dx774LnQxb0mpXXXirSEsZP ncUTR3E74ox2Q4PRIiZTZgW FV4rBT5 lK5fsZknoqoprGGtdLtkhfS jhBjwXBxvGTekR426QFWwsU irOiDqZDk1V4HgLgr1CQLrw MuwTV9y gWWyTTnuPp7meQchbDaqKO0 lPDAiunivn412WdPzs3ifVA MmbSDsRHlzBXG8K53br2D4V CMwMDAw GBJ2jQG5mL2frZxjnhhxsXZ mdDsgdmVydGljYWwtYWxpZ2 11WAHftVlyRwZmqFh0F7XvF ql1RNYq sEnfAF4wvXVmWUzzZl3gvTl fgRxyFL5qWKIoljhek804Jh Orc4qyIXNdgBJfKOqqCTL2J 35jo9S6 GICxXZCvJQF3eYZ6mZ0nhZw nbjogbGVmdDsgdmVydGljYW diMTsxZ426EILlmFuqInHur GllbnQg DOwoTAq7H7FhZcafrEM+PC9 2EYRwEV24qGImqIIog8kavQ f1ZdLwIWCxOYK8bJvdBYvuk 3JkZXIt A36ekJBfg9V1WXVwgFuayUL vUxIgnDX9uA2rDDvialmxv4 krfagkIxzev9vnrg44kH37S 29sIHdp ZHRoPSIzMCUiIHZhbGlnbj0 mvX9iVl8+PPDwpUV5xMN5vN 6sAPFkLtY3SHgbV460NrNub CIvPjxj w6twk9nspRn0DjZ0NXQpckL rvIxiLYE3f7OhLu16P68vOP dpZHRoPSIyMCUiIHZhbGlnb i2poF5t Ii8+KKCzqDX3dXJ8fC6gHhJ uCuT9PCxiS024GwUogEKsZl dhZ38yO3WzfAN+CFBtBjs7L CBzdHls IZ4juCQbENusOv9pHEI9CkC hUlTfKWwyW9OmBTEexkgejq rowHH8NPCcPNUxtD97Bv9sx DogMTBw iHTDgW1wqtcbi7pezmfbVwE dUSWtKQe0FXm3MJDzeQudGe MuIZC2AfG8BIZ0eNKjbW6ow Glnbjog aW2bR8JtTIYmfmkwCh63yY5 rXtNbKkP4SDuaSam+U0FNUy wgQUxFWEFOREVSIExFRTwvd GQ+PHRk FWZ8qExqBSlhDRZqqS6qUQA jK9x2GxJsUhJ0KVzsX3PpDG BozgqxQi14xX5vFmVzMoG2S WhlB0Vk msP0IISweEZpGRvxTQF9L73 lj7V1QUVwTMQgPKT8nMB0lI 1hbGlnbjogbGVmdDsgdmVyd GljYWwt VZtbJ430BWZqaEwwJkAdWaV 4NuF5Hrr7Q4AqDqz6FNLqaS dmCZ1trGSfCRifBm0lrFoni TweJL6o TJCqkjwuYPRbnR6lKVOdjAP qkLjfTD8rYMNvtdsdl052Zj EiLBO0POKixXWnZ2LwzG4nK iAjMDAw IKNyZ8PmnMWkSSytS010CQc fGsJ1QYSdonYpZ6UqCHKjiW kdXhC1r4E6Jj60ZKRLEQOnc zwvdGQ+ CJXsQHI8qHraYWkpHOIuwC2 nMOJrZ1s0SeVlOiQ9JKcyE4 MnGXLhrlbzUn30pM3aNuYvS nS7ZTaz B7CrffI3NJAusWKbALwfGHY 8H88qw0D3CZFuZOIgXDO6tW O8nF0vrFfpcjxclWGiaVkrj mVydGlj RNojJClgS784PYWnvDncXd4 HUUC9W8GgLwg8VLUtkBcqJT 2vjWWrIBfdSx3mwSpgbUfxG X8uCBCd iudrPYMrqA4kMOAlgTPezNp fTM9cZNBdvnzyp304WgDaSB H5ETCrkQLxZ2UfaU2wUsTjM DAwMDAw T7BrdGRxLTgwV039YWybCyF 1GEEjzbXbP6HoUYHygPmeIk O6v7J2Se9XMSmzlWM+PC90c x03H9Aj StwcSns0PWPoFDH6yQW2zE2 jYSWpTIcda7D5bPF8Z6Cerd Ybsr6tw1tfQKWhXTnjA73qx MRdo5Y1 RZExpVH5OADrcTidBzJszG5 3Oyc+GWUuuEytz0VtGnyqu5 lap5rtwBm4EeGrKZHkikYxb WduPSJ0 q0IkOt78L47mSRurQUUvJXV aXOJgWMOtfVshaf9buU7zTh 8+MENbgXM8kKB4wQ6qXqEtX lD6AJkn Z650ZuVhpKIuSgxwl8czd9u ksBa8NeYkUGKmxoGeuJnhOW H7v8KqVd31M9TnsOewe5HnI lw2vn88 xCLsv8N1vJU1V2IfUGTztba ynGMwnLgtCE4jABVberksWM YxpW2pKPDbU2s0OjTnJgL6J ZqaC5Tt yeT4TUYngLSsSRPzvGDAoM1 olofxd2vvsetmIkGhHLYtPF s9VTd2FKSnmVvjJoTiLAD0V cA0TDJ5 xVTzrX5vzSjxpefhuG7pQst +OLz2l7tpnIPzRG3ktOP7RO 47ED55zDFwz5S2lNL2V1CwT GRpbmct kbotxXE8CSYkPVLbeO00Cr8 daIekYr9aWALsHPQ9MLEwyE KpR4TfeB9uPjNfQBXtOFMqH 3RleHQt HRdfC740ELrdSsV1TMZofgO yJ6WlKOYhpDbpGaV1k1U6Zt 4AKM61RE65NB98qRVad6P4a RE2J3Gc TNVfvdvyqkhvrKQ9TTHtCGV viY28Oj0zqRuiWy8sHYSwPT O5FRKipJKkG0ObiH2dYlYwC DAwMDAw X5FcfEPcKBjbD377ETfiApA 9RBXllkJyV9JsHOYufZfqRf V5s6G2Rl1JHl77ZZ30ZU23g ASjy7Q2 oMJ4D0TuIIYofhzsejppwNM 4QYPvFOCddK42Bk2ozWkeVj 8kSAJpZXB5RMTwuLPtD0Ggl B0rIsKs VLTuZZBgV2PseHRqQJhsQ79 0BWtkYsL8ZAMmxrUiK2PdGX RvxPveQjZ0s6Z8Ow3WJKcyz na1H9Vn PjwvdHI+VC92FTGlDX23qGK fhXOxn3scgTg8AiDvVKLmFV G4xDqeMJjjw0MaTOLyY19sv YJjq7C9 IGN (more content not included)... [facility] Coding Summary HTMLBase 64 TqjqnamfLBg9mYu+PGhlYWQ +YP7UPVJaF32ahZXapU2zZ5 NMTElOSywgQVBQTElOSyIgb aOfZW8wvPLpBVIb IC8+QS8dVQJsFcxgzQMrn4K 5sFR0Q79ywb8nBTotrWF3KO NmAoByyofkf6bkbNu6GJudH mluOyBt OHKybR22ASX7kE99Jl41lZA xcDFjw5ultBh6SmVaYBIyAH E6jYgfIZftc0ClDREhK79dt POzf7Q2 RTOnoEgrfHAuZaVdiEN9tK1 zTKduwgodh8wvcxblZzz2pj 58jUPqg5M9fCV1I1CxxlE0M GJvbGQg JlfqgGBMqS0ljwkbi7ecajf uWaYePSBiIJs9UVp3GQRsnI doWbRbLE97UWT7YSTjenLxD 2FsLWFs bFljGcB6a4V8Dz7YJ3BNAdt gK9ACNCBKRYlhgNQ+PC90cj 30F7AjZnniBui1MLUlXRH1u QM8dQ0o THJmIBogu8R4mVY4E1WuumO fmn5gp6qyONEyZYluV05juZ Pfb7H4LKUfwVR5TUPlzXjcB iBzaG93 Oyc+EVOzeUnce7WgFqxfm8o et0eoyXl8QtnjRBMxbxWhaI vqIXV0f3EwYa4aAOAnmWO4m JV2qL3g LwBiPzS0KDyhF970GlZrjOA fTlpuE70yF2AtmWP+PHRyPj i2WFJmcMpqPP9eJ0CkINKph mctbGVm yBasEG8eFVAadbsuKQRgtN3 qAZErS0i4QwZfBwE7VOvmY0 AlYZDzwfqaWi89aG9hHnTsN cL1YQec F0AlnrZ7YCSxqUBzEPmkWCI 8I66he6G3KIBqIHNmHZP8hS N3lS7hjActjrpjsMCvkPawb mVydGlj YVegZMtiR953WRYphLnvYaP vZGluZyBEYXRlOiAgMDIvMD UvMjAyNDwvdGQ+SULfZRY9o WxlPSAn qDUbPPzcHs4cgLmwgDtiJW4 cJANnuabzOJHggO0bUEGvlX UjhElqHZ9fOTAbougms141O iAxMHB0 WKFsoRVbQ6MiqD4vLqQkELM sKHOyB6SyxEQhIOzwL654YX qiSlH2WQAqeeEuW2QwRZBrz WduOiB0 p7O5Wx7Up0YloctgE8TocGG bCrCxGmdlQFn9E0OrLbrhiH I+HR60VOFcAM17DPe6IMP3q WxlPSdi HELsY5EbpE5iXyCtQMNtSOJ kOyc+PHRhYmxlIHdpZHRoPS spXLJcUrNkeNruEO5qNh8wC GVyLWNv fXviiVDnBgUrn0xaHHFyQIy kCP0mnQppK8LoiNV6CJOlg2 x8Is89D87kD8TmxYP+PGNvb JF2uEJ4 rJ3cBuLkZwB5DYniA757MxK tjCBiPbetr4mul1cdbZz0Td K7DGFsecEzvTilOZL8j1XfU d24X54a IHdpZHRoPSIxNSUiIHZhbGl fxz5zuT2qAv8+ZLVriHA9uU D7oG9lUcZpPcA9XQnbK272V nRvcCIv Xaevl4sld9dftKl4EuZfNQT tdwPiyOqsFMS1m6DnJc94B9 JieHmhx2VfEil8sn62zMYyq 3L2qEO7 W7ObBLVmhkzgdVKdrXvnSA5 bHUEjmqvsWVVytY1dYDCuV2 f4CvHhBkS0YJkhP3AcqcU1C GJvbGQg QNFxvCZMvZ4ugqitl1risra uWtChTPBcNMo4BUq3SYFkfP noDlUaLAH2VzO7HYM4kTOks W4jmBth nprisQ5oSvh+TSW2pMIptOY ECD6jXaycrVK+GWBcCHX5dK kkBNeaBYYhoP4eECUmR6x7N iAwLjA1 AUwwA3SowmI1MSLtkOEsJVO bmVTVnB9hvqhbo0bsbuoaBa WwNLIxADt7CAq6NHUkgNcmJ iBsZWZ0 DzR6CDC1vGMssZ1yuIhtgkf dqW5aEeo+AsgejPffTRR2DP c0L2FwVns1WPJrtJimGQ1jh GFkZGlu Jh2vzNhfrVlcEV4vYZIuvdn vc760KgQcy6kiEJPebZFaWJ nxDVN0X44cz4N6JHPsVSFbM DX4fNR7 cF7aaEatsgibgLVfpYzyanF bfWmcZTqpLUayU430AEGarT bmWqVbTOz5M7MnMzf9XPHoa OzlCG3d pESuYGpiQk0ywAixlMtxZR5 cJXSybmkhp929UuJye4baMJ RmgKElADljGXT3B67xt9Z9J CMwMDAw SLE8gOQ4wB3hsMfjephqlMF mdDsgdmVydGljYWwtYWxpZ2 40JGClxWszTsWpoUi1O0JzF qu1GHVt oItaRO0vjJAmLVlhGr1fdVw sdIvzWA2pVYZvxyhpv376Mb Tam6xsYBJxxYBhCUdvJZU2V 64rw5B1 KAPrQAZuKBH1pSX1fD7hqXy nbjogbGVmdDsgdmVydGljYW tlNZkyH926EMGggYqqZyFhy GllbnQg HHulKFg9C9PxUfavnRJ+PC9 1XMTdCJ75pIOngDAwe5qhrB z2HnIjKOJpSRP9jYwlVTxhm 3JkZXIt Q41bzMRhn4O9XODjoSvnuIZ gJdZowDU0gF9iEUbwsjstm5 pgrbsmQdawx8ikrh45gY86W 29sIHdp ZHRoPSIzMCUiIHZhbGlnbj0 ziP0gYs1+SEEzaUY4bCO9zU 9zWUVbLgZ4CBkgN978NfRfm CIvPjxj a7rqs3vdvBo8AeS7TBRqueH tjJhsLYP2x8XiRe56K28pJS dpZHRoPSIyMCUiIHZhbGlnb x5qqA1x Ii8+XBKyrCK9sSM4kR0ePqD vMlW6QRsgL185KgFkgULkFt fnI67dH3StiWQ+LXKvZlk9F CBzdHls CY2rkFCaUPakUh6iRCV4JnY xIzZsQAfyV6XjPAQticqdzt ytzTS3IMPnCYDygF26Hc3gk DogMTBw xGNKtJ9rcxrwr3lredpqYcX nAURlPJc7DEt6VXZeqRglJj PxVKW3AzO0JQT6hUAuuK8dx Glnbjog vJ3fH6OqVEWrwagnJt81xK4 uDgMcFxG5NFtdYjz+U0FNUy wgQUxFWEFOREVSIExFRTwvd GQ+PHRk YLJ2zJcmGSjcXCIpeS0eSIV iY7z5HwRvKqD3UMhcV9BuET SvjbkvCe35vL1qZmRqAyQ2M PybA6Mu hzD2ZNMhxHWyDNywYJJ8P23 iu5A9ZQEsWXTyOKS5dYS7kN 1hbGlnbjogbGVmdDsgdmVyd GljYWwt EOspR943TNZmuVsaZdCwPkS 7DeV1Qjr3D2SeImc7ROZilV vwCN4ofMTgUAihCl0dmDdjg KfwJG1m VYTkxzgcISYdfT9iCRXkmBD mqLznQW4sATDrggitv895Mr LlEUH3SAElbFIwV5ExmP9eN iAjMDAw ENFzN0VbvHOzZYnsR248WSy lGsD5SPUgtnZxL7DgBQMxcG ymAzW9g3Y8Bd74RZFPLMPgx zwvdGQ+ ZKSsZKR7vKlfWTyzYJNioD9 cIOPpA4c9EkErIcU6MQleF4 DoJJWalxipMr58zA9xKxJiD bM3LAhb H0XlswI5ZERiaTYfNIdkKQX 1V90sj1Z2ZSPcWJIzEYY7oU H2wY2iqXpruocyeKSczYdwc mVydGlj UPpsPJarW137JRGyjLlrZb5 RYXA1N2BvQzf5CWDafVbxHH 3lpZVlZDcuOu8ayRuccAdqC P2lIPEb qmsgTWInrK0rEOWcyQWcnGo xER0zKSUdvrppz767WlWvVB V1CUAruNSfW7TezO8kRsEvO DAwMDAw Y1CodZEcZRkbU460IVwbKzA 0GEMxhyEbO8WfJCFiyYilTw Q8r9N1Zx3JTPrvkOG+PC90c z06H1Be HqgjTul7GDGiMKR2mYB3lF1 gYNHqDLbez8H4rAX7W6Etlw Todz4ts6xeAFUwRNcoN14bx MHik3L6 NGYoyVD6OVZapKciImLzqR9 3Oyc+YKNayCmup9XlMfffh0 nzt7hrdDg1GkNfZNYxhlVbo WduPSJ0 o0OcBk75Y69pWJjdJLJbICJ kAZKuRMOnoQinzt9ntX3wId 8+HYAwlMJ6zSD1fD9dNkElM yP5HXvh M409BlZdmCDwHmsoc1leu1a drRf7EuMaNJWhonUlrSjlDG E8s4TaEu35U4AdmLymp6HqM ay3ez86 kAFqk3Z8rHV2P5HbOHXzzud dcTBfuVsiCO7zIHTqnhjgVS CpjV0fVPFaU1b4DyGfVpM2N NtwA9Mx sdQ5ICDgxSNfPKZylAMRlD2 aegggq5wcaakdTfMzEKTzXB h1YHw6FUZwtCjcCbRkHBJ4B qD5IDX7 uKPnbS7vdJwgpmtxvN6eAmo +CZk2b3akfXYyUL2nwNZ9EN 86EF31aYNth6B5iBE7A1ZhW GRpbmct iskgbAC1DNIkJFCfuZ42Zz2 jgYnfWf7sYOKrTIY8OPKidU PwY1JeyF7vFvYkZWPvDKCoF 3RleHQt VCjaD061WUsfHmF3WTJpzmR nX1JmHNRryWyqPyQ4d4T8Hw 2RPS42TR30AD78wFLcs9Q8l OF5T2Wc WEHtomysctywvZT8PXHoUSD kgI41Gv3rhUpoDf2jUZBvYK G1TZWssCUsR8ZghO3iWeGtA DAwMDAw I6JxyDZcLIaxD115UOhxCeA 6WPCfhxVbK5VeZSAzeTrvEj T4g0E6Nn4QKd96ES61UW60m ABqn8H0 mIV7L1JgLQYetacvfztguYW 3DYGkEFHzrE93Fj3obKrqLw 6fVNBzREE3YHYeyLWaK5Pbq I8pIeGt FBSdWOTxW4RvtBInNGgvL18 4CXwaXrI3TZAxhpFoV6VoSV RyvTsrXhM3o9O9Gp2RSVbvg ug0X0Gl PjwvdHI+AR62MHDpIS62rFW hgHIjw9rvfNj9ZzWyWJMaVB I2hAmhNCzlb9KrIWBlY13wb AWka1P1 IGN (more content not included)... Normal [facility] Consent Formson 07-11-2023 Consent Forms [id number]#1.00O TGTIFF [facility] .Auto Diff 107-06-2023 Auto Grayson % 7 % Normal 06-17 [facility] Comment on above: Performed By: #### 1 [id number], [id number], [id number], 88010402, 9636520285, [id number], [id number] ####[facility] (DEFAULT)[address] [place] [address] 78206 Baso Abs# 0.0 x10 Normal 0.0-0.2 [facility] Comment on above: Performed By: #### 1 [id number], 5313971, [id number], 31673732, 1806385476, 1817527332, [id number] ####[facility] (DEFAULT)[address] [place] [address] 16953 Basophils/100 WBC (Bld) 0.1 % Low 0.2-2.0 [facility] Comment on above: Performed By: #### 1 [id number], 6627917, 6617555459, 62141049, 9708367199, 8577128425, 42156351 ####[facility] (DEFAULT)[address] [place] [address] 86268 Eos Abs# 0.2 x10 Normal 0.0-0.4 [facility] Comment on above: Performed By: #### 1 [id number], 9975259, 4557486693, 71870816, 4726057739, 2401489230, 30842758 ####[facility] (DEFAULT)[address] [place] [address] 44300 Eosinophils/100 WBC (Bld) 2.9 % Normal 0.9-4.0 [facility] Comment on above: Performed By: #### 1 [id number], 3949855, 5716576131, 21439356, 0656496448, 5762373755, 38029634 ####[facility] (DEFAULT)[address] [place] [address] 65405 Lymph Abs# 1.7 x10 Normal 1.3-2.9 [facility] Comment on above: Performed By: #### 1 [id number], 5991631, 8727198479, 85967663, 7249926424, 7457774999, 00082860 ####[facility] (DEFAULT)[address] [place] [address] 53446 Lymphocytes/100 WBC (Bld) 31 % Normal 14-48 [facility] Comment on above: Performed By: #### 1 [id number], 7479936, 9238207074, 25176523, 7155504438, 3187741750, 03067393 ####[facility] (DEFAULT)[address] [place] [address] 60896 Grayson Abs# 0.4 x10 Normal 0.0-0.8 [facility] Comment on above: Performed By: #### 1 [id number], 0850743, 3750826550, 73809002, 1891758464, 2087734188, 69181867 ####[facility] (DEFAULT)[address] [place] [address] 92880 Neut Abs# 3.3 x10 Normal 1.5-9.2 [facility] Comment on above: Performed By: #### 1 [id number], 4825072, 6963918448, 52725701, 9108840082, 9199525369, 51837507 ####[facility] (DEFAULT)[address] [place] [address] Neutrophils/100 WBC (Bld) 59 % Normal 44-88 [facility] Comment on above: Performed By: #### 1 [id number], 4744103, 3518710498, 54848851, 1140303064, 4465065255, 66159862 ####[facility] (DEFAULT)[address] [place] [address] 04209 BNP.on 07-06-2023 Internal Control Pass Normal [facility] Comment on above: Performed By: #### 1 [id number], 7206250, 8556544471, 25114975, 2077495695, 0696278586, 43180114 ####[facility] (DEFAULT)[address] [place] [address] 33440 Natriuretic peptide B (Bld) [Mass/Vol] 6.5 pg/mL Normal 0.0-100.0 [facility] Comment on above: Result Comment: BNP results greater than 100 pg/mL are considered abnormal and suggestive of patients with CHF. Higher BNP concentrations measured in the first 72 hours after an acute coronary syndorme are associated with an increased risk of , myocardial infarction, and CHF. Performed By: #### 1 [id number], 8352202, 8627926375, 53855056, 8757183171, 3936651921, 68246972 ####[facility] (DEFAULT)[address] [place] [address] 96172 CBC w/ Auto Diffon Erythrocyte distribution width (RBC) [Ratio] 13.0 % Normal 11.5-15.0 [facility] Comment on above: Performed By: #### 1 [id number], 1813086, 7246619586, 70810844, 0795964715, 1579972930, 13844035 ####[facility] (DEFAULT)[address] [place] [address] 00523 Hematocrit (Bld) [Volume fraction] 43.9 % Normal 34.8-51.9 [facility] Comment on above: Performed By: #### 1 [id number], 0068807, 4335437296, 79236687, 9504981384, 1987663669, 86487473 ####[facility] (DEFAULT)[address] [place] [address] Hemoglobin (Bld) [Mass/Vol] 14.9 g/dL Normal 11.8-17.7 [facility] Comment on above: Performed By: #### 1 [id number], 8901645, 6557318943, 71863401, 7429700480, 9899070657, 61809232 ####[facility] (DEFAULT)[address] [place] [address] Man Diff? Auto Invalid Interpretation Code [facility] Comment on above: Performed By: #### 1 [id number], 9811505, 4893980007, 28586369, 4148426346, 3606055393, 51841269 ####[facility] (DEFAULT)[address] [place] [address] MCH (RBC) [Entitic mass] 29 pg Normal 24-34 [facility] Comment on above: Performed By: #### 1 [id number], 2492020, 3897548223, 59839722, 8038486713, 9375936082, 43660771 ####[facility] (DEFAULT)[address] [place] [address] MCHC (RBC) [Mass/Vol] 34 g/dL Normal 26-37 [facility] Comment on above: Performed By: #### 1 [id number], 6639719, 5613081434, 49427131, 8770406532, 0574490511, 08454009 ####[facility] (DEFAULT)[address] [place] [address] MCV (RBC) [Entitic vol] 86 fL Normal 81-100 [facility] Comment on above: Performed By: #### 1 [id number], 0454394, 8451375092, 61730152, 2750311719, 3523596762, 48131171 ####[facility] (DEFAULT)[address] [place] [address] Platelet 100 x10 Low 138-427 [facility] Comment on above: Performed By: #### 1 [id number], 2126758, 6136198992, 33834687, 2977898865, 1135307646, 47588824 ####[facility] (DEFAULT)[address] [place] [address] Platelet mean volume (Bld) [Entitic vol] 10.9 fL High 6.3-10.2 [facility] Comment on above: Performed By: #### 1 [id number], 6728545, 4576306837, 69009739, 0071716928, 0818634104, 48045308 ####[facility] (DEFAULT)[address] [place] [address] RBC 5.11 x10 Normal 3.70-5.30 [facility] Comment on above: Performed By: #### 1 [id number], 9355267, 9775879641, 83875737, 6030458733, 5619334585, 45840424 ####[facility] (DEFAULT)[address] [place] [address] WBC 5.6 x10 Normal 3.5-10.5 [facility] Comment on above: Performed By: #### 1 [id number], 0996987, 3412287182, 99753022, 2012250316, 4070525779, 80037957 ####[facility] (DEFAULT)[address] [place] [address] 43582 CMP Standardon 07-06-2023 eGFR Non AA >60 Invalid Interpretation Code [facility] Comment on above: Performed By: #### 1 [id number], 0690849, 9626487015, 28633312, 2922969280, 6058385142, 52138684 ####[facility] (DEFAULT)[address] [place] [address] 05879 eGFR AA >60 Invalid Interpretation Code [facility] Comment on above: Performed By: #### 1 [id number], 9940613, 2264279042, 12003781, 5165315920, 5982514612, 65971486 ####[facility] (DEFAULT)[address] [place] [address] 82990 Albumin [Mass/Vol] 4.1 g/dL Normal 3.5-5.[address] [facility] Comment on above: Performed By: #### 1 [id number], 4558145, 2596017891, 08047377, 0222989585, 2670315192, 74506326 ####[facility] (DEFAULT)[address] [place] [address] Albumin/Globulin [Mass ratio] 1.4 {ratio} Normal 1.4-2.6 [facility] Comment on above: Performed By: #### 1 [id number], 0939280, 5593465399, 48701326, 6640730874, 6320668829, 12211474 ####[facility] (DEFAULT)[address] [place] [address] 08695 Alk Phos 56 IU/L Normal 32-91 [facility] Comment on above: Performed By: #### 1 [id number], 4819416, 6741996782, 22732368, 8461843933, 4089552209, 51659100 ####[facility] (DEFAULT)[address] [place] [address] 49236 ALT [Catalytic activity/Vol] 73.0 U/L High 17.0-63.0 [facility] Comment on above: Performed By: #### 1 [id number], 8132050, 5469191367, 32260527, 3169908144, 9766916845, 17046981 ####[facility] (DEFAULT)[address] [place] [address] 78189 AST [Catalytic activity/Vol] 41 U/L Normal 15-41 [facility] Comment on above: Performed By: #### 1 [id number], 6411184, 1162074547, 99945639, 6195007291, 1602210019, 55975922 ####[facility] (DEFAULT)[address] [place] [address] 49735 Bili Total 0.7 mg/dL Normal 0.3-1.2 [facility] Comment on above: Performed By: #### 1 [id number], 9678207, 2638952247, 40492482, 7032320474, 7030387107, 41009793 ####[facility] (DEFAULT)[address] [place] [address] Creatinine [Mass/Vol] 0.92 mg/dL Normal 0.90-1.30 [facility] Comment on above: Performed By: #### 1 [id number], 4040251, 6063144530, 40292287, 0399464875, 7112071566, 43851427 ####[facility] (DEFAULT)[address] [place] [address] 29353 Globulin (S) [Mass/Vol] 2.9 g/dL Normal 1.5-4.3 [facility] Comment on above: Performed By: #### 1 [id number], 5011233, 7949829518, 02978399, 1272340707, 7266503217, 14967461 ####[facility] (DEFAULT)[address] [place] [address] 11027 Osmolality 284 mOsm/L Invalid Interpretation Code [facility] Comment on above: Performed By: #### 1 [id number], 1668518, 0215640220, 99447469, 3612849670, 6743694125, 11665762 ####[facility] (DEFAULT)[address] [place] [address] 29153 Protein [Mass/Vol] 7.0 g/dL Normal 6.5-8.[address] [facility] Comment on above: Performed By: #### 1 691546852, 1796159, 3199675783, 14479555, 0782823757, 5494377187, 66765443 ####[facility] (DEFAULT)[address] [place] [address] 95977 Urea nitrogen [Mass/Vol] 25 mg/dL Normal 8-26 [facility] Comment on above: Performed By: #### 1 [id number], 3900651, 7077920540, 50178918, 0692345524, 7437529365, 29659691 ####[facility] (DEFAULT)[address] [place] [address] 43141 Urea nitrogen/Creatinine [Mass ratio] 27.1 mg/mg High 4.6-16.2 [facility] Comment on above: Performed By: #### 1 [id number], 9029509, 0043237422, 75414675, 9868856118, 7717753388, 36833459 ####[facility] (DEFAULT)[address] [place] [address] 00203 Anion gap [Moles/Vol] 9.7 mmol/L Normal 5.0-19.0 [facility] Comment on above: Performed By: #### 1 [id number], 4194950, 7370848680, 03279720, 0621069779, 7360256666, 57458100 ####[facility] (DEFAULT)[address] [place] [address] 24808 Calcium [Mass/Vol] 9.1 mg/dL Normal 8.9-10.[address] [facility] Comment on above: Performed By: #### 1 839167140, 1942078, 3286255323, 80632057, 0372801584, 3353262231, 16061367 ####[facility] (DEFAULT)[address] [place] [address] 07087 Chloride [Moles/Vol] 105 mmol/L Normal 101-111 [facility] Comment on above: Performed By: #### 1 891082974, 9931144, 5451139027, 29617122, 8498261880, 9629204218, 26283125 ####[facility] (DEFAULT)[address] [place] [address] 02197 CO2 [Moles/Vol] 29 mmol/L Normal 21-32 [facility] Comment on above: Performed By: #### 1 228852208, 2180150, 9273494233, 33749542, 1416845900, 6926551615, 80039447 ####[facility] (DEFAULT)[address] [place] [address] 98050 Glucose [Mass/Vol] 112.0 mg/dL Normal 74.0-118.0 [facility] Comment on above: Performed By: #### 1 462217536, 2643841, 9379347419, 52392168, 6503607441, 0497546944, 95133813 ####[facility] (DEFAULT)[address] [place] [address] Potassium [Moles/Vol] 3.7 mmol/L Normal 3.6-5.1 [facility] Comment on above: Performed By: #### 1 044983822, 8376140, 7102605720, 50023355, 5959979049, 6458757217, 97927906 ####[facility] (DEFAULT)[address] [place] [address] Sodium [Moles/Vol] 140.0 mmol/L Normal 136.0-144.0 [facility] Comment on above: Performed By: #### 1 252781781, 4849313, 9343219063, 14097889, 1411161570, 9160751405, 41331336 ####[facility] (DEFAULT)[address] [place] [address] Breakpoint Chem Normal [facility] Comment on above: Performed By: #### 1 878206156, 7489317, 7028644849, 65359794, 0902039654, 8400574818, 36629692 ####[facility] (DEFAULT)[address] [place] [address] HgbA1c Standardon 07-06-2023 .Hb 16.8 Invalid Interpretation Code [facility] Comment on above: Performed By: #### 1 614443666, 0172664, 2026412640, 60959258, 4457940212, 9817360127, 99746430 ####[facility] (DEFAULT)[address] [place] [address] .Hgb A1c 0.66 g/dL Invalid Interpretation Code [facility] Comment on above: Performed By: #### 1 813587180, 3062098, 8007995564, 65229593, 5917797855, 7243147342, 00726612 ####[facility] (DEFAULT)[address] [place] [address] Glucose [Mass/Vol] 117 mg/dL Invalid Interpretation Code [facility] Comment on above: Performed By: #### 1 120820215, 2985225, 2614189937, 11036502, 3847787387, 8846091849, 27362581 ####[facility] (DEFAULT)[address] [place] [address] HbA1c (Bld) [Mass fraction] 5.7 % Normal 4.6-6.2 [facility] Comment on above: Performed By: #### 1 852788308, 5021567, 4068684985, 58259471, 2007172887, 5564669301, 47268386 ####[facility] (DEFAULT)[address] [place] [address] Iron Profileon 07-06-2023 Iron [Mass/Vol] 79.0 ug/dL Normal 45.0-182.0 [facility] Comment on above: Performed By: #### 1 545421617, 0547223, 4728953990, 38945407, 2441996823, 6606062181, 10144208 ####[facility] (DEFAULT)[address] [place] [address] Iron Sat 20 % Normal 20-55 [facility] Comment on above: Performed By: #### 1 883953027, 4553258, 9106666517, 73491554, 0634313338, 2067013097, 45419477 ####[facility] (DEFAULT)[address] [place] [address] TIBC 402 mcg/dL High 250-400 [facility] Comment on above: Performed By: #### 1 751174575, 0591568, 1866683356, 95319583, 5638508964, 1828293571, 75579980 ####[facility] (DEFAULT)[address] [place] [address] Transferrin [Mass/Vol] 287.3 mg/dL Normal 180.0-329.0 [facility] Comment on above: Performed By: #### 1 981698036, 4384951, 2964708414, 77990995, 6876620905, 6754258261, 58375643 ####[facility] (DEFAULT)[address] [place] [address] 94820 Lipid Panel Standard, Non-Fa stingon 07-06-2023 Cholesterol [Mass/Vol] 154.0 mg/dL Normal 66.0-200.0 [facility] Comment on above: Performed By: #### 1 826534957, 4580445, 1803712705, 95757799, 8063408208, 9357256014, 47262087 ####[facility] (DEFAULT)[address] [place] [address] 33110 Cholesterol in HDL [Mass/Vol] 35 mg/dL Low 40-71 [facility] Comment on above: Performed By: #### 1 859297708, 9825317, 6263213549, 37299720, 0093762966, 5017113382, 92252863 ####[facility] (DEFAULT)[address] [place] [address] 23402 Cholesterol in LDL [Mass/Vol] 83 mg/dL Normal 1-100 [facility] Comment on above: Performed By: #### 1 217391667, 8422887, 7757522513, 03090875, 8368582828, 8659956964, 93887133 ####[facility] (DEFAULT)[address] [place] [address] 28889 Cholesterol.total/Ch olesterol in HDL [Mass ratio] 4.3 {ratio} Normal 0.0-4.5 [facility] Comment on above: Performed By: #### 1 509644220, 1755233, 7732302058, 59551733, 8276766822, 5754992283, 11403185 ####[facility] (DEFAULT)[address] [place] [address] 83282 Triglyceride [Mass/Vol] 177.0 mg/dL High 0.0-150.0 [facility] Comment on above: Performed By: #### 1 [id number] ####[facility] (DEFAULT)[address] [place] [address] VLDL. 35 mg/dL Normal 5-40 [facility] Comment on above: Performed By: #### 1 [id number] ####[facility] (DEFAULT)[address] [place] [address] Provider Orderson 07-06-2023 Provider Orders [id number]#[id number] [id number] [facility] LE Arterial Duplex Bilate ralon 07-06-2023 LE Arterial Duplex Bilateral EXAMINATION: US LE Arterial Duplex Bilateral HISTORY: Encounter for screening for cardiovascular disorders COMPARISON: None. TECHNIQUE: Arterial duplex examination performed using B-mode, color flow and spectral analysis. FINDINGS: Right leg: No flow significant stenosis occlusion or aneurysm Normal triphasic waveform to the level of the popliteal artery. Biphasic waveform identified in the runoff arteries Left leg: No flow significant stenosis occlusion or aneurysm Triphasic waveform throughout the left leg including the runoff arteries. Other: 6.5 x 0.7 cm fluid collection identified in the subcutaneous fat of the calf, nonspecific IMPRESSION: Biphasic waveform in the right leg runoff arteries suggests mild ischemia Normal left leg Final Dictated by: Augusto Mensah MD Dictated DT/TM: 07/06/23 4:07 Signed (Electronic Signature): Augusto Mensah MD 07/06/23 4:09 pm Technologist: ,PM [facility] LE Venous Duplex Bilatera patel 07-06-2023 LE Venous Duplex Bilateral EXAMINATION: US LE Venous Duplex Bilateral HISTORY: Other specified symptoms and signs involving the circulatory and respiratory systems, Venous insufficiency (chronic) (peripheral) COMPARISON: None. TECHNIQUE: Venous duplex examination performed using B-mode, color flow and spectral analysis. FINDINGS: Region: Bilateral legs Thrombus: None Flow: Normal Augmentation: Normal Compressibility: Normal Other: Venous insufficiency with reflux identified in the right great saphenous vein IMPRESSION: No deep or superficial vein thrombus identified in the legs Final Dictated by: Augusto Mensah MD Dictated DT/TM: 07/06/23 4:06 Signed (Electronic Signature): Augusto Mensah MD 07/06/23 4:07 pm Technologist: BERNICE FERNANDEZ [facility] Coding Summaryon 07-01-2023 Coding Summary HTMLBase 64 XgldgpiaGSp2cGu+PGhlYWQ +WQ0HFFUaJ34wvUWgnC2fW1 NMTElOSywgQVBQTElOSyIgb gScMR8qsAHiBZOk IC8+AO6bVSMnDuxlqXCwb7X 2qFX9J03kbn8wTFrnvZB0VQ AuKiHlzwekx8tgnGg6SSqfS mluOyBt ICYquW14GNJ2gF79Ag30uJL bzHRfq2xfaDc9GkMcFUVzFO Z4bBbjRSwtt2QpSVIxF48jz QKzm5H1 EODygAionDBmJpBbyBK1fT5 jUDwsfmdqd2ihrxfpBoz9ng 75vCOvj0E5tZB6L2SptkF7Y GJvbGQg SmmsxHOReZ1xctptp9hjqvy qDqIgHQMwTDh2LZj4SYGxxU teWtWbFG46UHG2IHMzmfJmV 2FsLWFs uBypVkC1k4Q6Bv2RN0DKWvs yG2JTCIZTOBnaqPZ+PC90cj 57O8GcIppwFpc8KMGvHPA2r ZR4pY9m TOZbNSwzb1N5sDX6F3WsmpC aqc4hs9peWGOqRHkvG19sqQ Xiq8A1TKIvuIE6GBZbkGpgI iBzaG93 Oyc+SOSorKdqk1QdPkhhe9n sn4wywSf3XafuPTYllyHuvU fpVEV8v7RdNn0aGNYzgKS7e JD8jL6o OsTuZwT2HRloH402PvUpzXS sUzkgF08hL5YvvRR+PHRyPj w2NDIasYuhRC8xK6OtCCWxk mctbGVm sJvzCA4vZNBgdflcTAXinN4 bKJFqT6p7VdSkCuA5LTmyQ1 JxHSKoqkbyHi41rS2dCnTrI hR3UYsk S2RehcU7XDVmeWFmOFiaRGE 4X94dy2X4FKYiIPWzILV8bZ Z7vN4ukPtakuvjaFVsiRzrm mVydGlj AVbnAKjaI286JVEeePqzNaY vZGluZyBEYXRlOiAgMDEvMj YvMjAyNDwvdGQ+IWBfAMX6p WxlPSAn kJTxYGkpZf0zoVaavXgvPR7 aYLRkuglgKSXczO7oFVWfwL RovZnfXX7tOHLzjjcrs553D iAxMHB0 YAPghFNiA7RcqQ9aWvHqCOV fWHMfO1BzjZXxNUtuZ976SX vdDbE3VTFhjmBzW9WjTNTol WduOiB0 z2A4Kl2Np2VqviezP1JjhDW qHjBlQqmbCTq9K5FsUitslP I+CC51MVUaFX59ONw8TWW5q WxlPSdi AWTfR2YnsM9kUcNlYFBnZAG kOyc+PHRhYmxlIHdpZHRoPS taYAFfVaCacDqwOH2xSr5qA GVyLWNv vYzozTZdUhNhn0crYRQaMUp lZR9hiTktY9OzdXM5IFWqp1 h4Oe21X07oP8JyjYQ+PGNvb MY2dMT7 qW4dFpAjLpJ2KCznZ001MkK alGWtOxemp0suf0mrsTp2Xz B1AQKluaGhhBziFIL8d2DyS t67Z42m IHdpZHRoPSIxNSUiIHZhbGl vlk2fwN3sJf0+VZHxoEY7oG S9aN3oCjOpAdO7YOvzZ559U nRvcCIv Xcfia3pyf4fbuGs0WjZqKOU wcjAtpYtaKYF1e9ZgVc34D3 UjdMfqm1LgWii0jy86sVDvl 8H4dHO1 J5GnYLRfibjqpAUajDejZA8 wTXCqroevXCQwfU4tKKHpX6 p7PwXuUwD1KCzlJ4RfviR6L GJvbGQg BRIriZNIjP1lgfikw4glgdx tZoJkPMCvWSf0OMg2ZAAlkT vaReDeLSI0OlG9FUX3tUKor P5zyQne rycqzO3aDmc+PIL3iEHkiAO MJI2pTaxyrPZ+YCMeRMR5qS oiYBicYUVqjO5aEDMcH6h7P iAwLjA1 YCcmT1GvgaL7FOEjoMBjJKY rmVXFsL9ejmauh5mikxiyTa WnYCDyZVv6EPy4BWLyaLybY iBsZWZ0 KwS7WLY4uLMxpU5viVskcro pjF2kAhs+MtrpuKbkAJO7PZ z3C8QpSux4YZEtgVruGB1pm GFkZGlu Ih6ptWgqqBiqZB6jKMCmydz yd326IzFhp0baTUOliAHdMW hlUTY5I94kq8R2OXBaKNXrS SS3uSL2 xN8jcZamvjwmeDKlnYghjnY egZdrAXaxAPwvU918LCGpiB wsAkRlYHh1W8RlKty5CHXon ZhqSM4y yTHjQAzxSv7wsQrwgMrgIM5 tKGUpyhkof265WlWih8vtNC NklYFpBCnjOWX8G26nu9W3Y CMwMDAw VDT6oLN2kC5frSemzosrxDT mdDsgdmVydGljYWwtYWxpZ2 49IMNzvRqaNhZuvJt9K4WsV rc8FNEj eKecVC6psVHbLJubUj4jaPj ewBqkMN5mWYUpywgsy213Bx Dkb1xxBGGjdWYyIFenFJI2X 98zq2P0 SMOdQABqIWA7fTO1qP9mdSt nbjogbGVmdDsgdmVydGljYW lpIYpbT256HXVqvEykOpXwb GllbnQg PGbnUZj0X7AoIafehRA+PC9 9VKAyGO36nGThyZJjk0svjS v2UiRgIGOxPKX3wQwjJGiil 3JkZXIt N74qhQXyn4F1BBKrpGscfHT pGxUbqUL1iM3aKXjouhcim6 usgijdFqbag9rizn93fZ64T 29sIHdp ZHRoPSIzMCUiIHZhbGlnbj0 tiB9qMz4+XKUpnOL7zXX2mX 0qNTEdXeY2EJiiD509EqIza CIvPjxj t1sar8qsiWe6KmP3TLZfdiH ahGqcSWJ0q3XdOm00B20vMY dpZHRoPSIyMCUiIHZhbGlnb f5jjO9e Ii8+XSNmzOV7xUZ5uD1yAjK wHkU3DLeiN248RjRxrYHmCe ksY96tC6RwpDM+JASqMce7O CBzdHls GI9qnTMqHIlpZa9zTVE5XsV iReXsVJpgC8QmUTHrtegolj lopUX9MWGiKYPwrV96Sw0ar DogMTBw cNVGxO3budlto9inqwwfXpO oSRFgNPw1LNu2XTNsyWgmCf RrMNS5BkW7PUN2pZQinM9gg Glnbjog uW0uU3SeZZHocapwZu79mM0 vIcSjWdN3KAndAwu+U0FNUy wgQUxFWEFOREVSIExFRTwvd GQ+PHRk ECE4jJniKCyeKGVspT9vNWL pW8z8RbYrYzX7IGzxQ2CxFR CqizcvXr41gK1mJsXxAdL7O SjnK9Qn hnK5BITjlUJaAAbpQKU3R78 wq3J7GZWtKYVwZMJ4bBU7tR 1hbGlnbjogbGVmdDsgdmVyd GljYWwt VDhtD533EDLutUhhSlVeOcP 0QpH4Avb3A7DpLyq1DPLghP xlMK7xaWMnIJcwMd3qvBdbf TueQB1v VQNrxqgpCTFkaY2mKJTjvAD wuSnoFY6fYIAwwnfft575Td OxVMH6SMMnsEQfD6HtrJ2cI iAjMDAw HHTrO1VtxHFqSIjlK411BYv aCiY6LFMvgpVhX5VyQZBcaG waUiJ0e9B6Um02MNHQEQJeb zwvdGQ+ UAMuALO6sFanKOasPAIcrA0 cRXRiR6d7OnIuSaV6BTonI4 XyYRMcsqqlPq28aV3qZnWaF yA6ONwg N9QhacC6ZJOdhZWsIDuySDO 2N11pj2O1ZXEcODGbNYA6wC Z0kU4nqAyjasqtcCQxuCmyg mVydGlj PJtwYXuoG349CSPmbPkwXq2 ECMX0T8SpUdz5BJVrzXudLZ 9lgBQnCQcmUn4ykOdywJgeD H9sHGBx prraAIEzeR3gVGBuuXJxwVe hEV1sEQZvdqpxl727MhRjOT E6QEXrvCClF7NdsO3iRjFpZ DAwMDAw Y8PvnCNrYMlnF293JNgmEkB 4VISumyBzV2BfBDSmsLndIn K1w9J7Bm1IRPxbcDR+PC90c e48Y0Sn XscwAdf3FFJuBCD1oXT2tS3 dRASkQJinv6Z5pXY0Z2Skxb Rmom6ka0vlGOBaDJawS24wh SVgs1T5 RSHhoLM7UUCgjFpdHrTybH4 3Oyc+HMNpwWaej3YjRhsya6 oag1ejoPx6TlKuWLVrexHjc WduPSJ0 r4UnXr58C76vLCnuWYChXWI qJSNvKOLfvYoflt2vhY1rGb 8+GYIrtYV1sYG0eU7uThTuS fQ1FMue J919AwEurDYzLjbpk2vyo0d pdPy7DrSqIGXbjhKgwOpiZF Q4d4MhSd59R3JwsZfbb3DcI xq7xq58 rDEfc2S6mAQ9D5WpFWPawcm mmTDeuZljYP1rNVMyudxoHJ QoxA7jZXVxG5j4DwVuOzO4V ConL9Zg cyX0NAUhySMkRTGeaNDSyH6 aqfuhd0brxuciTeOfMCDcAC z7JWn1OHEyrLunHbIsVIG8H fZ0COQ3 gNWddP6rtJudmkikyN9hTps +CGt0f3kbjHDoHH5kpGT5RC 13MQ90lJFmp3S7qQX3E7TkU GRpbmct zplthPT6MWYzUQSttF56Uh1 grLyhGz6rOHXkLYF3DQKtuX SsO1PbwZ4kBuIdAEDbOOSjM 3RleHQt MAtbX827NKogWbD9USGasyP zS9TxQCSljLjyHeS7m0G2Ja 8NCD25FE35XQ46wIVwc2T6k EK1Y4Ad TFZaiebzigqzaFJ1ZDIvBQQ kqZ73Vy0zgNcdPe5cPTXkNV B7THZoyQOdV8RrlU6jFqBkF DAwMDAw Y3AwbWWvHBqmU103BTbcNcA 8BXOveeNdC6OxQAHdbIzlXs H8j8E8Wa5FYz84UL51NB60b SXfc7U3 wUE1I1DtFFRcpcjdsrktiER 9LMFuRVPyeR94Hd4wbJqkNg 8eSBTuMXZ4DQTtvPWiK1Yfm U0yDsZn SKYjNPGwD4KrpLTeILbwA88 3OSpjXuF0XJTuksRvZ0TvNX VcaMfjZtX3o4L2Or1JDZvmu fx5B6Ga PjwvdHI+FP16UEZtDI66xGK foAEqm5uovDo0VcEjKUGrTF D7iLrnDCchm0CzKAZbY84ep KSir9M5 IGN (more content not included)... [facility] Provider Orderson 06-24-2023 Provider Orders [id number] TGTIFF [facility] ED Clinical Summaryon 2023 ED Clinical Summary [facility] ? Urgent Care [address] [place], [place] [id number] Clinical Summary PERSON INFORMATION Name: SPIKE NIELSEN Age: 43 Years Sex: MALE : 1980 MRN: Acct#: Visit Reason: UC - Skin Problem: simple; RIGHT LEG WOUND CHECK Arrival: 06/16/2023 13:33:24 Discharge: 06/16/2023 14:24:00 LOS: 000 00:51 Check In: 06/16/2023 13:33:24 Checkout: 06/16/2023 14:24:00 Address: [address] [place] [id number] PCP: Provider, None PROVIDER INFORMATION Provider Role Assigned Unassigned Anila Rubio [employer]ET[employer] OFFICER Nurse 06/16/2023 13:35:32 Reno Ogden ED PA 06/16/2023 13:38:13 VITALS INFORMATION Vital Sign Triage Latest Temperature Tympanic Temperature Temporal Artery Pulse Rate O2 Sat 95 % 95 % Respiratory Rate Blood Pressure /87 mmHg /87 mmHg MEDICAL INFORMATION Medications Given: Allergy Information: Wellbutrin PHYSICIAN DOCUMENTATION DISCHARGE INFORMATION: Discharge Disposition: Home Discharge Location: Home PATIENT EDUCATION INFORMATION Instructions: Abrasion Follow-Up: With: Address: When: Follow up with primary care provider Within 3 to 5 days Comments: Diagnosis excoriation of the right lower leg. From history, you have open wound from scratching. As discussed it is important to stop scratching the area or will not heal. For wound care, wash the area twice daily with antibacterial soap, and apply the antibiotic ointment I provided for you. Cover with a dry dressing. Provided with an Ray wrap which may help secure the dressing and help decrease swelling. Follow-up with your primary care provider in the next 3 to 5 days for reevaluation. If the redness starts to go up or down the leg, you develop fevers, any questions she may follow-up in the emergency room or return to the urgent care. As discussed wounds like this will take a couple of weeks to heal. DIAGNOSIS: 1:Excoriation of right lower leg Patient Understands: Yes - Patient/family/caregive r verbalizes understanding of instructions given Comment: Normal [facility] ED Patient Summaryon 024 ED Patient Summary [facility] ? Urgent Care [address] [place] [address] PATIENT DISCHARGE INSTRUCTIONS Patient Information Name: SPIKE NIELSEN Age: 43 Years Date of : 1980 Reason For Visit: UC - Skin Problem: simple; RIGHT LEG WOUND CHECK Arrival Time: 06/16/2023 13:33:24 Primary Care Physician: Provider, None Attending Physician: Reno Ogden Comment: Patient Education With: Address: When: Follow up with primary care provider Within 3 to 5 days Comments: Diagnosis excoriation of the right lower leg. From history, you have open wound from scratching. As discussed it is important to stop scratching the area or will not heal. For wound care, wash the area twice daily with antibacterial soap, and apply the antibiotic ointment I provided for you. Cover with a dry dressing. Provided with an Ray wrap which may help secure the dressing and help decrease swelling. Follow-up with your primary care provider in the next 3 to 5 days for reevaluation. If the redness starts to go up or down the leg, you develop fevers, any questions she may follow-up in the emergency room or return to the urgent care. As discussed wounds like this will take a couple of weeks to heal. Abrasion An abrasion is a cut or a scrape on the surface of the skin. An abrasion does not go through all the layers of the skin. It is important to care for an abrasion properly to prevent infection. What are the causes? This condition is caused by rubbing your skin on something or falling on a surface, such as the ground. When your skin rubs on something, some layers of skin may rub off. What are the signs or symptoms? The main symptom of this condition is a cut or a scrape. The cut or scrape may be bleeding, or it may appear red or pink. If your abrasion was caused by a fall, there may be a bruise under your cut or scrape. How is this diagnosed? An abrasion is diagnosed with a physical exam. How is this treated? Treatment for this condition depends on how large and deep the abrasion is. In most cases: ? Your abrasion will be cleaned with water and mild soap. This is done to remove any dirt or debris (such as tiny bits of glass or rock) that may be stuck in your wound. ? An antibiotic ointment may be applied to your abrasion to help prevent infection. ? A bandage (dressing) may be placed on your abrasion to keep it clean. You may also need a tetanus shot. Follow these instructions at home: Medicines ? Take or apply wpgq-lwx-kehkdto and prescription medicines only as told by your health care provider. ? If you were prescribed an antibiotic medicine, use it as told by your health care provider. Do not stop using the antibiotic even if you start to feel better. Wound care ? Clean your wound 1 or 2 times a day, or as told by your health care provider. To do this: 1. Wash your hands for at least 20 seconds with mild soap and water. Do this before and after you clean your wound. 2. Wash your wound with mild soap and water and then rinse off the soap. 3. Pat your wound dry with a clean towel. Do not rub your wound. ? Keep your dressing clean and dry as told by your health care provider. ? There are many different ways to close and cover a wound. Follow instructions from your health care provider about caring for your wound and about changing and removing your dressing. You may have to change your dressing one or more times a day, or as directed by your health care provider. ? Check your wound every day for signs of infection. Check for: ? Redness, especially a red streak that spreads out from your wound. ? Swelling or increased pain. ? Warmth. ? Blood, fluid, pus, or a bad smell. Managing pain and swelling ? If directed, put ice on the injured area. To do this: ? Put ice in a plastic bag. ? Place a towel between your skin and the bag. ? Leave the ice on for 20 minutes, 2?3 times a day. ? Remove the ice if your skin turns bright red. This is very important. If you cannot feel pain, heat, or cold, you have a greater risk of damage to the area. ? If possible, raise (elevate) the injured area above the level of your heart while you are sitting or lying down. General instructions ? Do not take baths, swim, or use a hot tub until your health care provider approves. Ask your doctor about taking showers or sponge baths. ? Keep all follow-up visits. This is important. Contact a health care provider if: ? You received a tetanus shot, and you have swelling, severe pain, redness, or bleeding at your injection site. ? Your pain is not controlled with medicine. ? You have a fever. ? You have any of these signs of infection: ? Redness, swelling, or more pain around your wound. ? Warmth coming from your wound. ? Blood, fluid, pus, or a bad smell coming from your wound. Get help right away if: ? You have a red streak s (more content not included)... Normal [facility] Urgent Care [place] 024 Urgent Care Record [facility] ? Urgent Care [address] [place] [address] PATIENT DISCHARGE INSTRUCTIONS Patient Information Name: SPIKE NIELSEN Age: 43 Years Date of : 1980 Reason For Visit: UC - Skin Problem: simple; RIGHT LEG WOUND CHECK Arrival Time: 06/16/2023 13:33:24 Primary Care Physician: Provider, None Attending Physician: Reno Ogden Comment: Visit Diagnosis: Diagnoses This Visit Excoriation of right lower leg (S80.811A) UC - Skin Problem: simple ([id number]) If you received any narcotics, sedation, or any other medication that causes drowsiness for the next 24 hours, unless otherwise directed: ? Do not drive a car. ? Do not operate machinery such as power tools, lawn mowers, drills, sewing machines, or stoves ? Avoid alcoholic beverages and drugs for allergies, nerves, or sleep ? Do not make important personal or business decisions or sign any legal documents With: Address: When: Follow up with primary care provider Within 3 to 5 days Comments: Diagnosis excoriation of the right lower leg. From history, you have open wound from scratching. As discussed it is important to stop scratching the area or will not heal. For wound care, wash the area twice daily with antibacterial soap, and apply the antibiotic ointment I provided for you. Cover with a dry dressing. Provided with an Ray wrap which may help secure the dressing and help decrease swelling. Follow-up with your primary care provider in the next 3 to 5 days for reevaluation. If the redness starts to go up or down the leg, you develop fevers, any questions she may follow-up in the emergency room or return to the urgent care. As discussed wounds like this will take a couple of weeks to heal. Medication Information: The exam and treatment you received today in the [facility] were for an urgent problem and are not intended as complete care. It is important for you to follow up with a doctor, nurse practitioner, or physician?s nursing home assistant for ongoing care. If your symptoms become worse or you do not improve as expected and you are unable to reach your usual health care provider, you should return to the Emergency Department, we are available 24 hours a day. For those patients who have received Radiology results, the interpretation of your X-ray as given to you by our Urgent Care physician is only a preliminary report. The Radiologist will review your films and if there is a change in the diagnosis you will be notified by phone. Please make sure you have provided a working phone number so we can reach you if necessary. In the event that you had a lab culture while you were a patient in the Urgent Care, you will be notified by phone if there is a need to change your antibiotic. Please make sure you have provided a working phone number so we can reach you if necessary. [facility] Urgent Care has provided you with a complete list of medications post discharge. Please inform your press manager/provider of your visit and for further instruction on these medications. Any specific questions regarding your chronic medications and dosages should be discussed with your primary care physician(s) and/or pharmacist. New Medications [id number], [address], [place] [id number], [phone] mupirocin topical (mupirocin 2% topical ointment) 1 marilynn Topical (on the skin) 2 times a day (scheduled) for 7 Days. Refills: 0. Additional medications on your home medication list not specifically addressed. Please contact the ordering physician if you have questions about these medications. busPIRone (busPIRone 15 mg oral tablet) 1 tab(s) Oral (given by mouth) 2 times a day (scheduled). dulaglutide (Trulicity Pen 0.75 mg/0.5 mL subcutaneous solution) 0.75 Milligram Subcutaneous (under the skin) every week. INJECT 0.75MG SUBCUTANEOUSLY ONCE WEEKLY. febuxostat (febuxostat 40 mg oral tablet) 1 tab(s) Oral (given by mouth) every day. ferrous sulfate (ferrous sulfate 325 mg Tab) 325 Milligram Oral (given by mouth) every day. melatonin (melatonin 5 mg oral tablet) 1 tab(s) Oral (given by mouth) once a day (at bedtime) as needed for insomnia. multivitamin (Vitamin B Complex oral capsule) 1 cap(s) Oral (given by mouth) every day. omeprazole (omeprazole 20 mg oral delayed release capsule) 1 cap(s) Oral (given by mouth) 2 times a day (scheduled). TAKE 1 CAPSULE BY MOUTH TWICE DAILY. traZODone (traZODone 100 mg oral tablet) 2 tab(s) Oral (given by mouth) once a day (at bedtime). Visit Information Allergies: Substance Reaction Symptoms Type Comments Wellbutrin Drug Vital Signs: Vitals and Measurements this Visit (last charted value for your 06/16/2023 visit) Vital Signs This Visit Temperature Oral: 36.7 DegC Peripheral Pulse Rate: 72 bpm Respiratory Rate: 16 br/min Systolic Blood Pressure: 149 mmHg Diastolic Blood Pressur (more content not included)... [facility] 04-14-2023 [facility] Telephone ([employer]) JAMELSPIKE ([id number]) 1980 M Date Time Provider Department 04/14/23 FADI ROBERSON [facility] During your visit today, we recorded the following information about you: Fadi Roberson RN 04/14/2023 5:14 PM Signed [facility] COORDINATION TELEPHONE ENCOUNTER Pt mother is helping him. [facility] with call back number Allergies As of Date: 04/14/2023 Noted Allergy Reaction WELLBUTRIN (BUPROPION HCL) 10/25/2016 2 - Rash Date Reviewed: 01/20/2023 Reviewed by: Merced Gallardo Ma - Fully Assessed Prescriptions as of 04/14/2023 - TRULICITY 0.75 mg/0.5 mL pen injector - melatonin 1 mg tablet Take 10 mg by mouth. - acetaminophen (TYLENOL) 325 mg tablet Take 2 tablets by mouth every 4 hours as needed (for pain.). - doxepin capsule 50 mg Take 50 mg by mouth daily at bedtime. - levomilnacipran ER (FETZIMA) 40 mg Take 40 mg by mouth once daily. - famotidine/Ca carb/mag hydrox (ACID GREASE MAN COMPLETE, FAMOT, ORAL) Take 1 tablet by mouth twice daily. - B Complex Vitamins capsule Take 1 capsule by mouth once daily. - mg-fil-qnyzr acid-lutein (CENTRUM SILVER) 400-250 mcg chew Take 1 tablet by mouth once daily. - triamterene (DYRENIUM) 50 mg capsule Take 50 mg by mouth twice daily. - ondansetron (ZOFRAN) 4 mg tablet Take 1 tablet by mouth every 8 hours as needed for Nausea/Vomiting. - clonazePAM (KLONOPIN) 1 mg tablet Take 1 mg by mouth twice daily as needed. - traZODone (DESYREL) 100 mg tablet Take 150 mg by mouth daily at bedtime. - ascorbic acid, vitamin C, (VITAMIN C) 500 mg tablet Take 500 mg by mouth once daily. - cyanocobalamin (VITAMIN B-12) 1,000 mcg tab Take 1,000 mcg by mouth once daily. - hydroCHLOROthiazide (HYDRODIURIL, ESIDRIX) 25 mg tablet Take 25 mg by mouth once daily. - busPIRone (BUSPAR) 15 mg tablet Take 15 mg by mouth three times daily. - febuxostat (ULORIC) 40 mg tab Take by mouth once daily. - OXcarbazepine (TRILEPTAL) 300 mg tablet Take 300 mg by mouth twice daily. Problem List As Of Date 04/14/2023 Noted Resolved Hypertension [I10] Bipolar disorder (HCC) [F31.9] Depression [F32.A] Lymph node enlargement [R59.9] 10/25/2016 Obesity, Class III, BMI >= 40 (morbid obesity) *10/25/2016 Mild developmental delay [R62.50] 10/25/2016 Left lower quadrant pain [R10.32] 06/19/2019 Encounter Status:Closed by FADI ROBERSON on 04/14/23 [facility] 01-28-2023 [facility] SPIKE NIELSEN ([id number]) 1980 M Date Time Provider Department 01/28/23 FADI ROBERSON [facility] During your visit today, we recorded the following information about you: Allergies As of Date: 01/28/2023 Noted Allergy Reaction WELLBUTRIN (BUPROPION HCL) 10/25/2016 2 - Rash Date Reviewed: 01/20/2023 Reviewed by: Gallardo Ma, Merced - Fully Assessed Prescriptions as of 01/28/2023 - TRULICITY 0.75 mg/0.5 mL pen injector - melatonin 1 mg tablet Take 10 mg by mouth. - acetaminophen (TYLENOL) 325 mg tablet Take 2 tablets by mouth every 4 hours as needed (for pain.). - doxepin capsule 50 mg Take 50 mg by mouth daily at bedtime. - levomilnacipran ER (FETZIMA) 40 mg Take 40 mg by mouth once daily. - famotidine/Ca carb/mag hydrox (ACID GREASE MAN COMPLETE, FAMOT, ORAL) Take 1 tablet by mouth twice daily. - B Complex Vitamins capsule Take 1 capsule by mouth once daily. - au-veb-etcjg acid-lutein (CENTRUM SILVER) 400-250 mcg chew Take 1 tablet by mouth once daily. - triamterene (DYRENIUM) 50 mg capsule Take 50 mg by mouth twice daily. - ondansetron (ZOFRAN) 4 mg tablet Take 1 tablet by mouth every 8 hours as needed for Nausea/Vomiting. - clonazePAM (KLONOPIN) 1 mg tablet Take 1 mg by mouth twice daily as needed. - traZODone (DESYREL) 100 mg tablet Take 150 mg by mouth daily at bedtime. - ascorbic acid, vitamin C, (VITAMIN C) 500 mg tablet Take 500 mg by mouth once daily. - cyanocobalamin (VITAMIN B-12) 1,000 mcg tab Take 1,000 mcg by mouth once daily. - hydroCHLOROthiazide (HYDRODIURIL, ESIDRIX) 25 mg tablet Take 25 mg by mouth once daily. - busPIRone (BUSPAR) 15 mg tablet Take 15 mg by mouth three times daily. - febuxostat (ULORIC) 40 mg tab Take by mouth once daily. - OXcarbazepine (TRILEPTAL) 300 mg tablet Take 300 mg by mouth twice daily. Problem List As Of Date 01/28/2023 Noted Resolved Hypertension [I10] Bipolar disorder (HCC) [F31.9] Depression [F32.A] Lymph node enlargement [R59.9] 10/25/2016 Obesity, Class III, BMI >= 40 (morbid obesity) *10/25/2016 Mild developmental delay [R62.50] 10/25/2016 Left lower quadrant pain [R10.32] 06/19/2019 Encounter Status:Closed by FADI ROBERSON on 01/28/23 [facility] Coding Summaryon 01-26-2023 Coding Summary HTMLBase 64 GttwpomtBKc1nKw+PGhlYWQ +UN4KWWWhH15znYQmkO0lK6 NMTElOSywgQVBQTElOSyIgb nKaDG2cbDZsWRYb IC8+JB8uPOOaBlhymTUql1H 8kSL5U00ylc3fXCitkHY4YP HmYxOiaeiiw6ruiYs5HSnxC mluOyBt IBSnsN21CGP5eC28Ao42iMR pvCCdf6gokUt0HwTaAHFgVV E4qVurZEubu3RcFEDrI51rz PKue3T0 MJAddUkchYUqWwEjlGE0pZ2 eOPuwdqowl4umxxbqKoe3in 42eHWkf2B4rLZ3X5IoprT2T GJvbGQg EfdfaFDAtN4ukgzsx2vqfgr wChZzQTNoQMm2AQc4XLHobQ xjOxRmPT14SQZ3XYFfghWeC 2FsLWFs dWlsHvZ2f4H8Wd3DG9EJWgh hF5NSAEGHSBxmaZZ+PC90cj 03K0DaJljkIbz6COSoNXJ9a HX2qW6o LJBtABlwf4K8jNO3T7FfltB cmr8zi0iwSFAnUVbmN00xxA Vby2M0USJudZZ1NEZzpBcbT iBzaG93 Oyc+CYXwcYwwq5QkKqvmf3d ws6ryiPn0PnnvVSTkweVpgZ ulNHH6z1DbAf4jUKAujFS1d BG0qM9e AyTgBmZ2KGazD041MxJcnYT uRiyrQ81jA0HlmNC+PHRyPj o2BADcwRkzNO9pH1ToDZYdg mctbGVm yJneEO9pAJPdrjpfDPElnR4 nIQKnJ3m6SnZeWpK5JRurS8 JfANYqoddeKc01uH5qZsNqV hT8ESgx L8JnadR7IJNyyKGkDTmpFTN 2I90tm0Y5DNTsTBRiGPD7yS D0xX3gdNrperkywEGeqHjlt mVydGlj UGmpCVwvO171EILkoEspJpL vZGluZyBEYXRlOiAgMDgvMj MvMjAyMzwvdGQ+JSClDAB9k WxlPSAn fCNoREmsOi2utCiyiUzeFT7 mCOFgzhhmKUVjcZ6yHSBacS PigHxrTD5sNVGarcdjj400K iAxMHB0 JQZwzMLuF5VnmI4bTrHfZMZ uSXTlZ4OhkMOjWNsjB501MM cmFyL8FPOiqjPgR1AnPIQzp WduOiB0 c8R5Hu0Rz1FhdvmiU2IedUZ fSrSkAgdpMWt8L3StVqqtkL I+BO68BYHaMJ60DJo2STE5r WxlPSdi JUNwS0DiiE3fOiWzMKSeXQJ kOyc+PHRhYmxlIHdpZHRoPS dtOHEhZnEtzGtiFU6fBr5gC GVyLWNv wLwtuTLxQxXnp1tgCCZnHSl iEH3xkHuoJ6BgjSM3JNUcb6 y4Ty33W52lH3QnqKN+PGNvb UC7xEK8 tT9lMkOrVcS9MWbrS413NrO frPVsSalae0pzi7lbmFo5Tp W2WNSkorOeaSwwNSK6h2OfJ e19V84d IHdpZHRoPSIxNSUiIHZhbGl taq8caE6gPw9+GXJudKM0sM E1hH9xBuIoNnF9YWbqW940V nRvcCIv Ldqea9fzt6jwdHm5ImPqBCN ujwEtfSmgGXH1u0KyPc94K5 GpbOove7MsJmi2ex17iIKsb 2B9sIR8 Z1VsAEInubvczBXyeUerMO2 xYFWgtkmtKAMvaE0lMWHiD2 i4ByVcTuD0TLwwH4YojlP2P GJvbGQg UMBmgBAQmP1gaydks8groei hKhBkZTQsCYk6WNb8OOHpvA yxUfGwTFN0MlF9CPR8uUTdm K1cyRvh peaivU9hXqo+XPP9bLLqtQQ YUN2cBzhspOV+WHJgBNV6oC wcUNtgCWYmcK5mCCPaO8y6K iAwLjA1 YUwoU1GkcqK9QBMpfNRzDJZ cnLJWgP1zgastc5qlmhhhKs RzQWIiQKb0JVe4MTOdgDeiG iBsZWZ0 NxY6EDD1lZGdlY6acDlmipk wqJ8uLrx+RjghaIsjMEE3BP d0E2KnDfu2QJUtxJwoDJ2wy GFkZGlu Mk2tnFjlxCrxDG6dYUGncnr cy398AnVeb6fdLMLokYRmDL rdAVT1D10kf0L1AFIyVLOaT DJ2uLF3 lQ7dlJqhceqtaKNwzUudtqT lzCfbZRsbWRppN941BHEabL odQkReGIm8P8WsBla8XJNji StlCZ1c rSCeGPswLs0gyYwejKtcMC5 cCWLonmgle855KaLim6mtTQ WhmADeWGtqSEO6E33fo2N5C CMwMDAw XMW6iME7kZ6vwGhhnhecvGZ mdDsgdmVydGljYWwtYWxpZ2 13NSNioWspMeHykSf9S7YnB en8SFEh jQydTL2dvMNiNKgaGg8zsGc ycNrzSW2aNUHcnnzar798Ee Let1woXXIebNOmZIzcEKU9X 26fv4M1 HJXiHAWjFTM3tYX6hI5tgIp nbjogbGVmdDsgdmVydGljYW vtCTteB030BRIcoUkyEjJhe GllbnQg IEspXCq3K2MzHjmjoUO+PC9 4GNQtTQ62pPAzsCAgr5hwkO r0JjCdBCRoARX3vQfyAHaen 3JkZXIt G90qfIRgx7S1XWBquSdjfYS iZdArvAW1pY3iTEohjtzps2 qzczzqEfzhq8pdpe83mW44Q 29sIHdp ZHRoPSIzMCUiIHZhbGlnbj0 fwY0fCw4+MEZphBS4fKI7qG 4iJCNyRpN3GMvoD053WwUkg CIvPjxj q9xol0wloJt2NkK5SYObiaO mkXusWHW7n9BpQv25A71sMY dpZHRoPSIyMCUiIHZhbGlnb b8puG2f Ii8+TBIcmPK4bIA8xD3xJoI fGzD0UResE669XgMuzSHhQd arS29pW4BrsQA+QQDbBea4Z CBzdHls OR2hqWEeVHdiDk3vUCS1WiF yZtUzACwiL9EuOTWccvwppe afqHQ7BPNyKGEqkG05Oc1nd DogMTBw rFWJoS6cpttsk0xakodqFbE kKLDhZYm8IGi1MLDwdXkfKo UhIIS1KqI2DBU6kSRntY3zj Glnbjog sO3sM1JfNYBaecdxUz84vR5 pYmZnNnY2TSahFen+U0FNUy wgQUxFWEFOREVSIExFRTwvd GQ+PHRk XBV8nYfdUCfaRMWjmY9fDVY kO7x5NdKbRzW3QCucV5OeIK YltdxoLx19aH7yFlVsMxP9O UcgC9Cw aqC8JPRqyZEvQWhoUKR7L21 lq1J2IHGtWNVcXEQ2mSC1mV 1hbGlnbjogbGVmdDsgdmVyd GljYWwt ZLyeN776YEMvjMwgFvOjUvK 3HlL4Bxw9N2ItHum8FRTtoQ ktRV6hxPFsUQxgRr5foIbox IgkOY9t AGFsnzthAXIovB4nYIBgeDL goJdfSI9cADIcwpqxt322Kj YoOQA3ZRHgrVHbY4HuyG7cZ iAjMDAw RAWdP1OgsOXeRCheS242DKf yXzF4EDTupeTqV7GjBIThdA pkOjK7f5Q2Aa29MGACHFRqt zwvdGQ+ JBMuYZT7fRqoBFvjREGdxX8 fKKAeW3r3LqCnBrK2BFlcS1 ZjZPVsecgrRv16iK0oPrMeJ uI6MDof J4AjlqG9PCVqtVTnNHklNSU 5A24lb0Z4HKQyCBAtXZE6aX A4yZ4gcJtlvrmsgBQbbFryf mVydGlj JMhtQSyqN010FGIxwHboGb2 XCSC5G6EoKfp0BGYjwByyTF 4iwMTeEBnlZs8oeWbyyYnuH F1aUYEk pewiQPBbkQ6rSVWbsWTgqYd uVN7hXAXtwaanu324VqDlFO X8JZKxbLThS4OgzE7wYxSkR DAwMDAw U5WdhTXsYFgxD388OZncTyB 3EZHgnjGwL8DiDHOhpExbJr V1o1C6Mx6OfZItB0HpU3s5W 3RkPjwv dHI+ST71ZDLyDN76uNTspPW fc2ftiVx3EfQzIJRqRJM2gD njXNxnf8AlWEDuZ55uaMHas 6U8ECMb mVfffFKuTtQmrBL5wK2eENj letbpz8payxifVmskp3splo 97aB01Z26vJImrKQWjUHEfB CUiIHZh iIoshw6zyA2yDc6+PGNvbCB 5yHZ8hQ7uWeTwKdZ7GSxhB6 02MpWpoVHgPyduk8mwd7vkl Rd1RjLy OLHaejLeePglTCN9l5PuDz3 3C84kRAxzIUKdHBEqGKMsPK HyhZxivt1odE4hPj2+PC9jb 4wsxj90 jF30vDM+TKWcHSR8wZjjOUm eUSQqqF1fBErnKpG6WBGaMl DglY67iTFbSIszSy9faMzym PxuUU0r WBBplghva273OvHsq9lnEHT uhPCfRKvyEML9U45ha7X1MK NhMRVvGTZ9xIG2kB1qcEufh jogbGVm qFsoigKxzMbnYZpbURlcV49 9GLJglZzfOgLivLWuE7qyvp JOJS7pTxwmzIY+AJXfKSA7z WxlPSdw FAQgkK2wWSUmO0c4EtBfTiV 1UIgwG0SdvvT0FGLxmQSfDB IinZTKpX2jkvdbv3ebmgkeA zAwMDAw VHw8NKt5KGNimWpdEtVrAOE 8ToN2YQW5uKKxcN2lhCgzam bspW1hRon+RklOOjwvdGQ+P HRkIHN0 rUumJHgiGPUsrT9kZWQdZ1e 8FiFcRjU3IQdcJ4JgdhT8QK SyuYKkRZRtgGCRfW4ppaciq 2xvcjog NzCnRMSjANo5WMj5LSLyzFq yUeXyDHH0UrS5SCP7wCIafU 6wtSdhemocaO8tYnn+TVJOO jwvdGQ+ QFKuHNX3lGptLTzvTHHozM4 bUQJrZ4r7KkTqStW0BNnmE0 BqplI2KTJzeQBuJKEwvIPOi Q6olauk t2lrkybaKrLfHGNkPPr3VDj 1VFMwjHgbRnYzIGB0NqD2FZ R4vNPlqK3wcAjqmjrrwG2sB yc+UGF5 BZT5CU11RA10D3BpBgaecXR ibGU+PHRhYmxlIHdpZHRoPS qlNHWfHoOasJmxJQ2mJm5jE GVyLWNv bGx (more content not included)... [facility] 01-21-2023 [facility] Telephone (GENBMI) SPIKE NIELSEN ([id number]) 1980 M Date Time Provider Department 01/21/23 ANTONIO PUGA During your visit today, we recorded the following information about you: Antonio Puga RN 01/22/2023 10:59 AM Addendum BMI SPECIALTY CARE COORDINATION TELEPHONE ENCOUNTER 01/21/18: called and left message for pt to call office. Provided this RNs contact number. 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 - acetaminophen (TYLENOL) 325 mg tablet Take 2 tablets by mouth every 4 hours as needed (for pain.). - doxepin capsule 50 mg Take 50 mg by mouth daily at bedtime. - levomilnacipran ER (FETZIMA) 40 mg Take 40 mg by mouth once daily. - famotidine/Ca carb/mag hydrox (ACID GREASE MAN COMPLETE, FAMOT, ORAL) Take 1 tablet by mouth twice daily. - B Complex Vitamins capsule Take 1 capsule by mouth once daily. - da-vaj-qgdls acid-lutein (CENTRUM SILVER) 400-250 mcg chew Take 1 tablet by mouth once daily. - triamterene (DYRENIUM) 50 mg capsule Take 50 mg by mouth twice daily. - ondansetron (ZOFRAN) 4 mg tablet Take 1 tablet by mouth every 8 hours as needed for Nausea/Vomiting. - clonazePAM (KLONOPIN) 1 mg tablet Take 1 mg by mouth twice daily as needed. - traZODone (DESYREL) 100 mg tablet Take 150 mg by mouth daily at bedtime. - ascorbic acid, vitamin C, (VITAMIN C) 500 mg tablet Take 500 mg by mouth once daily. - cyanocobalamin (VITAMIN B-12) 1,000 mcg tab Take 1,000 mcg by mouth once daily. - hydroCHLOROthiazide (HYDRODIURIL, ESIDRIX) 25 mg tablet Take 25 mg by mouth once daily. - busPIRone (BUSPAR) 15 mg tablet Take 15 mg by mouth three times daily. - febuxostat (ULORIC) 40 mg tab Take by mouth once daily. - OXcarbazepine (TRILEPTAL) 300 mg tablet Take 300 mg by mouth twice daily. Problem List As Of Date 01/21/2023 Noted Resolved Hypertension [I10] Bipolar disorder (HCC) [F31.9] Depression [F32.A] Lymph node enlargement [R59.9] 10/25/2016 Obesity, Class III, BMI >= 40 (morbid obesity) *10/25/2016 Mild developmental delay [R62.50] 10/25/2016 Left lower quadrant pain [R10.32] 06/19/2019 Encounter Status:Closed by ANTONIO PUGA on 01/22/23 [facility] CNOVon 01-20-2023 CNOV Office Visit (GENN ) SPIKE NIELSEN ([id number]) 1980 M Date Time Provider Department 01/20/23 8:30 AM AJ CROW During your visit today, we recorded the following information about you: Temperature Pulse Blood pressure Weight 97.2 degrees 62/minute 148/63 170.1 kg Height 1.803 m Merced Gallardo Ma 01/20/2023 8:32 AM Signed What is the reason for your visit today? consult Who is your referring physician? Dr. Crow Are you having poor oral intake? NO Have you had unintentional weight loss of 15 lbs/7 Kg in the last 3-6 months? NO Bowels: diarrhea Wound: clean AND dry Temperature: No Drains: No Zahraa Stovall 01/20/2023 9:13 AM Signed [facility] - HISTORY AND PHYSICAL Chief Complaint: recurrent paraumbilical hernia HPI: Spike Nielsen is a 42 year old male who presents with a recurrent paraumbilical hernia after primary repair during a lap maureen with Dr. Crow in 2019. He was last seen in 2020 about the recurrence and planned for follow-up after CT and 20-25 lbs weight loss. He has had significant difficulty and frustrations with weight loss since that visit, despite working an active job, frequent bike riding/walking, and portion control. Pain related to the hernia has worsened and frequently radiates to the entire L abdomen and flank. He also endorses daily nausea but no emesis. Relevant previous operations include: - lap maureen w/ IOC, primary repair of 2x2 umbilical hernia 06/2019 ([facility]) Anxiety Disorder Independent Light physical labor Moderate (once/week) BMI 52 N/A PAST MEDICAL HISTORY Diagnosis Date Bipolar disorder (HCC) Depression Hypertension No past surgical history on file. Social History Tobacco Use Smoking status: Former Packs/day: 0.10 Years: 3.00 Additional pack years: 0.00 Total pack years: 0.30 Types: Cigarettes Quit date: 1982 Years since quittin.6 Smokeless tobacco: Never Substance Use Topics Alcohol use: Never Drug use: Never Additional social history not relevant to the patient's HPI FAMILY HISTORY Adopted: Yes Additional family history not relevant to the patient's HPI ALLERGIES Allergen Reactions Wellbutrin [Bupropi* Rash Current Outpatient Medications Medication Sig Dispense Refill acetaminophen (TYLENOL) 325 mg tablet Take 2 tablets by mouth every 4 hours as needed (for pain.). doxepin capsule 50 mg Take 50 mg by mouth daily at bedtime. levomilnacipran ER (FETZIMA) 40 mg Take 40 mg by mouth once daily. famotidine/Ca carb/mag hydrox (ACID GREASE MAN COMPLETE, FAMOT, ORAL) Take 1 tablet by mouth twice daily. B Complex Vitamins capsule Take 1 capsule by mouth once daily. el-zsy-ymxzw acid-lutein (CENTRUM SILVER) 400-250 mcg chew Take 1 tablet by mouth once daily. triamterene (DYRENIUM) 50 mg capsule Take 50 mg by mouth twice daily. ondansetron (ZOFRAN) 4 mg tablet Take 1 tablet by mouth every 8 hours as needed for Nausea/Vomiting. 30 tablet 0 clonazePAM (KLONOPIN) 1 mg tablet Take 1 mg by mouth twice daily as needed. traZODone (DESYREL) 100 mg tablet Take 150 mg by mouth daily at bedtime. ascorbic acid, vitamin C, (VITAMIN C) 500 mg tablet Take 500 mg by mouth once daily. cyanocobalamin (VITAMIN B-12) 1,000 mcg tab Take 1,000 mcg by mouth once daily. hydroCHLOROthiazide (HYDRODIURIL, ESIDRIX) 25 mg tablet Take 25 mg by mouth once daily. busPIRone (BUSPAR) 15 mg tablet Take 15 mg by mouth three times daily. febuxostat (ULORIC) 40 mg tab Take by mouth once daily. OXcarbazepine (TRILEPTAL) 300 mg tablet Take 300 mg by mouth twice daily. No current facility-administered medications for this visit. REVIEW OF SYSTEMS The remainder of the 12 review of systems is negative other than what was mentioned in the HPI and above. Ht 180.3 cm (5' 11 ) Wt (!) 170.1 kg (375 lb) BMI 52.30 kg/m? Physical findings of this patient are as follows (COMPLETE 10 INCLUDING HEART AND LUNG EXAM OR CHOOSE NORMAL EXAM IF APPROPRIATE): Physical Exam Physical Exam Constitutional: The patient is well-developed, well-nourished, and in no distress. Head: Normocephalic and atraumatic. Eyes: Pupils are equal, round, and reactive to light. EOM are normal. Neck: Normal range of motion. Neck supple. Cardiovascular: Regular rhythm and normal heart sounds. Pulmonary/Chest: Effort normal and breath sounds normal. Abdominal: Soft. Bowel sounds are normal. Musculoskeletal: Normal range of motion. Neurological: He is alert. GCS score is 15. Skin: Skin is warm and dry. Psychiatric: Affect and judgment normal. Relevant Hernia Findings - paraumbilical hernia L > R; nonreducible, mildly tender, no overlying skin changes LABS: Hemoglobin A1C (%) Date Value 06/08/[address] 01/19 - Per OSH report large fat-containing umbilical hernia however images not in (more content not included)... [facility] Coding Summaryon 01-20-2023 Coding Summary HTMLBase 64 QorgirdgKDo3iJp+PGhlYWQ +TM7ZPUVvD60btSHktT8sX4 NMTElOSywgQVBQTElOSyIgb iNoQN4rtVUmXKYa IC8+TE6hENElKvqocEGwy4F 4yLZ6A01een3iSLabeXO8EP XkStNboofiu6bexUu7VYxdI mluOyBt QZVaaG42MPR7mL77Sx19eBX cnCDon0rqhGh0JqLiAPGrXW T7bQkzMTimp1UsVHKyO03rg COfv1K2 ICEkeTkgjKGuGdZfjEA9uN9 dJIqumrron4twifjlJix2tz 81pZRiq1X5hFH1F6IaegN0H GJvbGQg KkztrDBRnW9idkmko1jeuvh dUnWvRJRcXFp2WFs1NLVyeK stHzLhTF09ENJ5TIKtrnPsU 2FsLWFs lPkrQwT2l7E9Qi7EC7QWXwo tJ5TRRBKSTTbmeBS+PC90cj 18H1AvIwqsIsq7EMHeZNZ6z CQ3lZ2d QQNoZMfun3E1mSG1T2XhksD dvo2oj9fcDQHeIHmxQ05eiX Aen6V8MFCxwTI0IGEgoCuuK iBzaG93 Oyc+FUQenSqix4OiOzpjt8z bm4crtRg8GfiwGHNccfLiiW dzTEK7k3OhCg3tAESycCS2c IW3fM4g IeIfThN1QVjcX864QcFwsBG zKzuoZ03gN5UznWM+PHRyPj r9LHVmdJmiIC2lS2FbKQGhz mctbGVm eYviNQ7nHAWrvdegRYJhhP4 hLQJzP3d7IfYdWmZ7CXuwT8 UpRUAwkxzqCm22aD8nFaCfA hL0AHrc F9EuzxX9JNOysQYhKTzoREJ 1X61sz7R7HNDdKLAqLLQ2tV U0yR5jtLjvcxklfWCrcLvcl mVydGlj JMqiKMotU471KZEbwLcuZhH vZGluZyBEYXRlOiAgMDgvMT cvMjAyMzwvdGQ+FOKhFQV2g WxlPSAn lCPsBBlnPu0ykTpkeHslVT6 vFOKdtyxpWMTrkS4jYZIguR ZnsZjnVW3xURAkgzayy530K iAxMHB0 NRTksIQwA7PxmV9qXqAfYAS lUYOqC7BmhGMvJHckD313RO sbLjI8VSOgbcIlU8BjJCRdg WduOiB0 q3Z9Tt1Uk7KpnhgxD6FfgEA yOiEhYqcvCDy1X9LqWbzrjA I+RX99JKEfWG81CGt2PPQ1f WxlPSdi JEYdO2BkkV8hKeNsANTxLCD kOyc+PHRhYmxlIHdpZHRoPS ajRYVaKkJlmZwwJN8vAe3eH GVyLWNv dQgdmOHkCgSac4rdNURfFCz hUS8xrKvkR0DdqRA9OMBoe6 c2Dj23N38aU8JtoGP+PGNvb SF4rBF8 aF9gMbZsWpO4KDfeL335OvD hsSMsSjiab0cuj0vmnYw1Rg D0PUNvwuSmoKujKSU6t2HlJ f77O41x IHdpZHRoPSIxNSUiIHZhbGl era3ffQ2eHw2+WSDpzJF6pV F8sM3rRyTqPgX0XSmmO265B nRvcCIv Sosyh4qoi8kzuWq5UyTkFFQ cjaKqfIpaVDQ0q1KuAp80U4 LimYgwp2OiBzg7ca13jWZrh 5L3vSE0 V1QmTVZtqzhptONqtYqwUL0 wHTPcbjarGNIpuC4pOQBuV1 v3ChMxLzP3ILfuY8OrqhW2U GJvbGQg GVEtbHVKjN7zsybfm0btnlq bVgDrSQUtJCk3TSe4YWHvtO kjYmBoGII3DgM2LPI0rANra C2meOyh huqzsN8dNjv+LFM8qOAkxNM UWG9sHvtdqZU+YFIeHQX8cG mhJMnmKPAjyQ5mCOMdH4r1X iAwLjA1 RPocA9QgwdO0PGXxzXJeQBV fjZDEaW9wdmlxy2akgostSp YkCCIgXHy7MBj2TFFqyIwnR iBsZWZ0 SeC8QTZ4rBGorG4xuKnjowa jfY6lHyi+BcmkuCvjQWQ8JH u5B7MtOvi2TKLlrBvkKP1ea GFkZGlu Yg9piYmmwCdrZP0bNXQxwsd tx230PiAtn9unARDonLLtDY cvETH2E12pg5V5GNTrELDhM KX5rWT6 cO8tiKcgwiomfYXuvZthiyF jyCglNRmdEVllN288YMWppO rsKgAfDXd5E8HbMml0FOIrw AasXG8s yUCtEJjkRw7vbKwetTjiTH2 jYGEutmnre728XbXzc4pdPI IrsIIpXLvnLSO9N38hp5X0H CMwMDAw FMS7iSQ1tK6qoDqukmlpyQI mdDsgdmVydGljYWwtYWxpZ2 97UVWeiTjrZhJkuYo2I1JlX ai4BMGr pYboFM5hcGPcRBrlBm7jzZy nlSuoMF4rZBTusfvch816Ts Rzs3tcSZTrsOBzUNgtUSS7X 68ps6P5 BYZbQOWuSFA2bPV5hF6fiBe nbjogbGVmdDsgdmVydGljYW irPXujH219PTRckZrdOeBqt GllbnQg KYqvXZn4B9IyUwjjqYY+PC9 6ZHZqZB78uQCovHFuy8yryM e6PjYjFQXoSKS8mXnpPPjuo 3JkZXIt F00xjFIfv6Y9OWQysOejzXV yQfJvvFY0vA7tISarskirp8 rsexjyDmryv2rhuh87oA03P 29sIHdp ZHRoPSIzMCUiIHZhbGlnbj0 nlZ5cQs6+SYYdwRT2pOM7qR 6vSUGiZhO7NEchH219BhEbw CIvPjxj l8wcv4vunRi3TnC0GRVvgoI vxGwhCAO0c9VhHh14I87qPZ dpZHRoPSIyMCUiIHZhbGlnb v7eoG7a Ii8+MOMrkYC2aAH5gV1oHsC rPqB8FCzoS189HcAojCAlIl jpC67xB5SgnYK+OWTdXik3P CBzdHls IR7gaNZaCGtoCi4rDEO5JwB oDgXzQAjcY7PzMPZhlicsus fpvID7WLPiIPVtkC98Uv8jg DogMTBw kCKGuT3utbcux4najyknQlG fMDFmRHn9YUs0UIKiaMupTg ErFPY0UbY3DLU3zHNrqR6zi Glnbjog wI9yB3VhMJKawinpNi92uA0 nJeQaOnH6RWppGgd+U0FNUy wgQUxFWEFOREVSIExFRTwvd GQ+PHRk KUM0aHyuXNroTELmgD1tXMH yC1t0TmMvAoS9VIliU3BiEO CvqtpwPx90eO2iOgJtMfX2M StnX1Ba lxA1DYDasLRtDBrwEYX4T72 sz6I1ZMYbZXOpQWK4gLL1wF 1hbGlnbjogbGVmdDsgdmVyd GljYWwt UDqkR541OMXrkPcpLcUtJlQ 1WzM5Mec4V9YlQgg2TALpmC tcKG9kjNToVOgaWt2taVkoe LnzCS2u KQYukrzmGDGqxT9sRKZyvVG mzGmdNU4wCWBnuldxc965Th JuFLF1JWYywYCvX9UpwQ8fT iAjMDAw NGVvA9ImgRGbCErzT699ZIq hZvI4YOSjrgQlI0BjQHBljU voEeC4t0B1Wm03LXZAMWMya zwvdGQ+ PGTrSSJ5bHnvXManFURtaT2 iNDVyZ1u4WsHyFgN2PLhzL1 IaEEFybaehUk26oU0hCsFbV vY1YIyt P1EezaL6NDBfiPWgIQtrPSJ 6Z97xi9F2ABCgXPWnTNB8fJ C4hK4xjPggkfzsbGNstIzlw mVydGlj YCtdANcfH358ILTifAubQs3 CBEL4R2FaHkb3BVQtsVbyVK 0ziUYwBVxnGg5byZlfzXfoF X7bGEFu tqleRLRdjX4kGBWftBChsTd gMN5wQZAbzwuoo889NxVcTA W2GCPfoJNdQ7VzvV4iBjHuE DAwMDAw R1WknICuSDjeG853DCjzMjA 4BBSigdQrH1TtWPMjmMfyWq N2t6T7Fn1VVCwugEW+PC90c f90Z0Ki KfyzMwk7ACImTWQ1dOX4dN6 eWFXuSNtsy9M1sSL1Q9Usvf Vdvi0rk0wjLQWeYAwsG89zi LUwm3X4 IAJapEF2GTJkoEtdLvCneV9 3Oyc+PWIyzGtzf6KiPbuic2 fwj7ubvGi7QhReOPHxwxLjq WduPSJ0 x7AiLy41W35qKKroXSAoJNR aTUAhYNBnbXahhi0dnT8yLp 8+LOUzfUG8sCP2hE3tZlRhT dI8VZqg X760GbYimBCfKkmft4qub8q cbRz5JjCoQHXiscUjdXzcDN R6b7HlTp87B5HfqPpvf4TeA ns9wz09 bABci9V8kBN1X7KnNUVlhdp bhTGdiEooQF1bVJWbsztaHS PexZ9pYZRwC9p7UuXeDgG7B PkkI9Vd pmP4XVBleCRjFPZkuSTSyY0 xoafkw2wcejfrAkBzVQDzHA i7SHz8SPPhcZtqVuIkHVN8E kB3SFE8 nMXujR4cvAziqvaqoI8sYyv +HPa9k1vgvAWcGV5bsXM4MR 31UL90qXHwr1H9mBC1F8MbD GRpbmct ctsqtJD7BRXzJFHcoH29Gj6 qnTklAq1zGLSjKZS0OYRngY RaP0RdaE4yGfOfRPYhCTPkY 3RleHQt QGooZ805HMwqNqZ4HDJzcbV kS1FxGRXbjOkkDnM4c3V0Xp 0XHF96CE44EZ61kYGgx6U9f AW1K2Hl QPEqzyhfvnsvwDV4LFGjEVL giD53Cg9zrGvmWn3eTAEyKY Z2GDZqyCGfC6OzxY0aCmTiV DAwMDAw R9TxlDJrDXvuW174PLxyNzH 7AQUdroEhN8BcHQOcpKycHx Z5s2J3Km0CFa76UI99LO81c AJna7F3 gWY6N2MrPNZcbwgglfdemKB 6YXFzVOEreX46Ub8suYyhQu 9hLPYyVXP1YVGjoNPaC4Fde Y5uNnSi NALuKQEfN8FdaZBmJXchX05 5XEqwGyM6JEEhdrXtO6OsIR ArxNsvByT2h6I6Om6ZUYlwr nk9M5Mi PjwvdHI+JF61LXDjMM07qTD ncXDon1hlyLp3MjRhJROvVS J2rAkvZWkwt7MjNNSwI52er DOhk8H6 IGN (more content not included)... Normal [facility] CT Abdomen/Pelvis w/o Contra ston 01-19-2023 CT Abdomen/Pelvis w/o Contrast CLINICAL HISTORY: Incisional hernia. COMPARISON: 12/12/2021. TECHNIQUE: Multiple contiguous axial images of the abdomen and pelvis without contrast. Multiplanar reconstructions were acquired at the CT console. All CT scans at this facility use dose modulation, iterative reconstruction, and/or weight based dosing when appropriate to reduce radiation dose to as low as reasonably achievable. FINDINGS: A moderate to large-sized fat-containing periumbilical ventral hernia appears similar in size compared to 12/12/2021, with resolution of the previously demonstrated fatty infiltration. There is no entrapped bowel, organized fluid collection, or other significant changes identified. The gallbladder has been removed. Spleen remains mildly enlarged. The unenhanced liver, pancreas, adrenal glands, kidneys, great vessels, bowel loops, appendix, urinary bladder, and visualized lung bases are unremarkable. Mild to moderate degenerative changes of the thoracolumbar spine appears similar. IMPRESSION: Moderate to large-sized uncomplicated fat-containing periumbilical/incisiona l hernia, similar in size to 12/12/2021. Final Signed (Electronic Signature): John Womack MD 01/19/23 11:35 a Technologist: Aman ZAVALA [facility] ED Clinical Summaryon 2022 ED Clinical Summary [facility] - Emergency Department [address] [place], [place] [id number] ED Clinical Summary PERSON INFORMATION Name: SPIKE NIELSEN Age: 42 Years Sex: MALE : 1980 MRN: Acct#: Visit Reason: Ear pain; Chills; Hernia; CHILLS, BODY ACHES, L EAR PAIN, PAIN WHEN BREATHING Arrival: 01/15/2023 06:31:06 Discharge: 01/15/2023 07:45:00 LOS: 000 01:14 Check In: 01/15/2023 06:31:06 Checkout:01/15/2023 07:45:00 Address: [address] [place], [place] [id number] PCP: Provider, None PROVIDER INFORMATION Provider Role Assigned Unassigned Kareem Sanchez MD ED Provider 01/15/2023 07:05:56 Jose FELDMAN, [facility] ED Nurse 01/15/2023 07:19:43 VITALS INFORMATION Vital Sign Triage Latest Temperature Tympanic 38.3 DegC 38.3 DegC Temperature Temporal Artery Pulse Rate 104 bpm 104 bpm O2 Sat 97 % 97 % Respiratory Rate 19 br/min 19 br/min Blood Pressure /73 mmHg /73 mmHg MEDICAL INFORMATION Medications Given: Medication Dose Route acetaminophen (Tylenol) 1000 mg PO cephalexin 1000 mg PO Allergy Information: Wellbutrin PHYSICIAN DOCUMENTATION Patient: SPIKE NIELSEN Age: 42 years Sex: MALE : 1980 Associated Diagnoses: Cellulitis of left anterior lower leg; Elevated blood pressure reading Author: Kareem Sanchez MD Basic Information Time seen: Date & time 01/15/2023 07:06:00. Additional information: Chief Complaint from Nursing Triage Note : Chief Complaint 01/15/2023 6:39 EDT Chief Complaint chills, hernia pain, right ear pain . History of Present Illness 42-year-old male presented to ER for evaluation of fevers and chills. Patient complains of several other symptoms. Stated that he had onset of fevers and chills at 3 AM. Stated that he waited till 5:00, did not seem to improve so he called his mother. Stated that he felt there was slight increase in left ear pain which she has chronically. Also appears that there is slightly louder ringing. No sore throat. No cough. No vomiting or diarrhea. Patient also reported that he has a hernia in his abdomen. Looks like it is getting bigger. Stated that he has some pain when he had applied pressure to the area. Stated that he had a previous hernia repair by surgeon in [place]. Stated that he has appointment to follow-up with surgeon. No illness exposure. Review of Systems Constitutional symptoms: Fever, chills. Skin symptoms: Negative except as documented in HPI. Eye symptoms: Negative except as documented in HPI. ENMT symptoms: Ear pain, no sore throat, no nasal congestion. Respiratory symptoms: No cough, Gastrointestinal symptoms: No vomiting, no diarrhea. Genitourinary symptoms: No dysuria, Musculoskeletal symptoms: Back pain, Muscle pain, Joint pain. Health Status Allergies: Allergic Reactions (Selected) Severity Not Documented Wellbutrin- No reactions were documented.. Medications: (Selected) Prescriptions Prescribed Tessalon Perles 100 mg oral capsule: 100 mg = 1 cap(s), PO, TID, for 7 day(s), 21 cap(s), 0 Refill(s) doxycycline hyclate 100 mg oral capsule: 100 mg, PO, BID, for 7 day(s), 14 cap(s), 0 Refill(s) predniSONE 20 mg oral tablet: 20 mg = 1 tab(s), PO, Daily, for 5 day(s), 5 tab(s), 0 Refill(s) Documented Medications Documented Fetzima 40 mg oral capsule, extended release: 40 mg = 1 cap(s), PO, Daily, 0 Refill(s) Vitamin B Complex oral capsule: 1 cap(s), PO, Daily, 0 Refill(s) busPIRone 15 mg oral tablet: 15 mg = 1 tab(s), PO, BID, 0 Refill(s) febuxostat 40 mg oral tablet: 40 mg = 1 tab(s), PO, Daily, 0 Refill(s) ferrous sulfate 325 mg Tab: 325 mg, PO, Daily, 0 Refill(s) hydrochlorothiazide-los manuel 12.5 mg-100 mg oral tablet: 1 tab(s), PO, Daily, 30 tab(s), 0 Refill(s) melatonin 5 mg oral tablet: 5 mg = 1 tab(s), PO, Once a day (at bedtime), PRN: for insomnia, 0 Refill(s) traZODone 100 mg oral tablet: 200 mg = 2 tab(s), PO, Once a day (at bedtime), 0 Refill(s). Past Medical/ Family/ Social History Medical history: No active or resolved past medical history items have been selected or recorded., Reviewed as documented in chart. Surgical history: No active procedure history items have been selected or recorded., Reviewed as documented in chart. Family history: Thyroid Other Relationship Diabetes.... Brother , Reviewed as documented in chart. Social history: Social & Psychosocial Habits Alcohol 02/26/2019 Alcohol Use: Never 06/26/2022 Alcohol Use: Current Frequency: 1-2 times per year Other Comment: POB: [place] - 02/26/2019 15:28 - Carmen Jama Substance Use 01/31/2019 Substance use: Never 06/26/2022 Substance use: Never Tobacco 02/26/2019 Smoking tobacco use: Former smoker, quit more Comment: 1 ppd every 2 months - 02/26/2019 15:27 - Carmen Jama 05/17/2021 Smoking tobacco use: Never (less than 100 in l 12/12/2021 Smoking tobacco use: Former tobacco user 12/12/2021 Smoking tobacco use: Former tobacco user 0 (more content not included)... [facility] ED Note - Physicianon 2022 ED Note - Physician Patient: SPIKE NIELSEN Age: 42 years Sex: MALE : 1980 Associated Diagnoses: Cellulitis of left anterior lower leg; Elevated blood pressure reading Author: Kareem Sanchez MD Basic Information Time seen: Date & time 01/15/2023 07:06:00. Additional information: Chief Complaint from Nursing Triage Note : Chief Complaint 01/15/2023 6:39 EDT Chief Complaint chills, hernia pain, right ear pain . History of Present Illness 42-year-old male presented to ER for evaluation of fevers and chills. Patient complains of several other symptoms. Stated that he had onset of fevers and chills at 3 AM. Stated that he waited till 5:00, did not seem to improve so he called his mother. Stated that he felt there was slight increase in left ear pain which she has chronically. Also appears that there is slightly louder ringing. No sore throat. No cough. No vomiting or diarrhea. Patient also reported that he has a hernia in his abdomen. Looks like it is getting bigger. Stated that he has some pain when he had applied pressure to the area. Stated that he had a previous hernia repair by surgeon in [place]. Stated that he has appointment to follow-up with surgeon. No illness exposure. Review of Systems Constitutional symptoms: Fever, chills. Skin symptoms: Negative except as documented in HPI. Eye symptoms: Negative except as documented in HPI. ENMT symptoms: Ear pain, no sore throat, no nasal congestion. Respiratory symptoms: No cough, Gastrointestinal symptoms: No vomiting, no diarrhea. Genitourinary symptoms: No dysuria, Musculoskeletal symptoms: Back pain, Muscle pain, Joint pain. Health Status Allergies: Allergic Reactions (Selected) Severity Not Documented Wellbutrin- No reactions were documented.. Medications: (Selected) Prescriptions Prescribed Tessalon Perles 100 mg oral capsule: 100 mg = 1 cap(s), PO, TID, for 7 day(s), 21 cap(s), 0 Refill(s) doxycycline hyclate 100 mg oral capsule: 100 mg, PO, BID, for 7 day(s), 14 cap(s), 0 Refill(s) predniSONE 20 mg oral tablet: 20 mg = 1 tab(s), PO, Daily, for 5 day(s), 5 tab(s), 0 Refill(s) Documented Medications Documented Fetzima 40 mg oral capsule, extended release: 40 mg = 1 cap(s), PO, Daily, 0 Refill(s) Vitamin B Complex oral capsule: 1 cap(s), PO, Daily, 0 Refill(s) busPIRone 15 mg oral tablet: 15 mg = 1 tab(s), PO, BID, 0 Refill(s) febuxostat 40 mg oral tablet: 40 mg = 1 tab(s), PO, Daily, 0 Refill(s) ferrous sulfate 325 mg Tab: 325 mg, PO, Daily, 0 Refill(s) hydrochlorothiazide-los manuel 12.5 mg-100 mg oral tablet: 1 tab(s), PO, Daily, 30 tab(s), 0 Refill(s) melatonin 5 mg oral tablet: 5 mg = 1 tab(s), PO, Once a day (at bedtime), PRN: for insomnia, 0 Refill(s) traZODone 100 mg oral tablet: 200 mg = 2 tab(s), PO, Once a day (at bedtime), 0 Refill(s). Past Medical/ Family/ Social History Medical history: No active or resolved past medical history items have been selected or recorded., Reviewed as documented in chart. Surgical history: No active procedure history items have been selected or recorded., Reviewed as documented in chart. Family history: Thyroid Other Relationship Diabetes.... Brother , Reviewed as documented in chart. Social history: Social & Psychosocial Habits Alcohol 02/26/2019 Alcohol Use: Never 06/26/2022 Alcohol Use: Current Frequency: 1-2 times per year Other Comment: POB: [place] - 02/26/2019 15:28 - Carmen Jama Substance Use 01/31/2019 Substance use: Never 06/26/2022 Substance use: Never Tobacco 02/26/2019 Smoking tobacco use: Former smoker, quit more Comment: 1 ppd every 2 months - 02/26/2019 15:27 - Carmen Jama 05/17/2021 Smoking tobacco use: Never (less than 100 in l 12/12/2021 Smoking tobacco use: Former tobacco user 12/12/2021 Smoking tobacco use: Former tobacco user 06/26/2022 Smoking tobacco use: Former tobacco user Electronic Cigarette/Vaping 05/17/2021 Electronic Cigarette Use: Never 12/12/2021 Electronic Cigarette Use: Never 06/26/2022 Electronic Cigarette Use: Never , Reviewed as documented in chart. Problem list: Active Problems (3) Hypercholesteremia Hypertension Thrombocytopenia , per nurse's notes. Physical Examination Vital Signs Vital Signs 01/15/2023 6:39 EDT Temperature Tympanic 38.3 DegC HI Peripheral Pulse Rate 104 bpm HI Respiratory Rate 19 br/min Systolic Blood Pressure 153 mmHg HI Diastolic Blood Pressure 73 mmHg SpO2 97 % . Measurements 01/15/2023 6:47 EDT Height/Length Dosing 175.260 cm Weight Dosing 172.370 kg 01/15/2023 6:39 EDT Height/Length Estimated 175.260 cm Weight Estimated 172.370 kg . General: Alert, no acute distress. Skin: Warm, dry, Overall skin is warm and dry. Normal turgor and color. Facial area, neck unremarkable except for some skin tags around the neck and slight increase in coloration around the base of the neck suggestive of insulin resistance. The back and trunk abdomen, gr (more content not included)... Normal [facility] ED Note-Nursingon 01-15-2023 ED Note-Nursing AAOx3. SANTOS. Skin warm,dry, pink. REspirations regular, even. C/O ABD pain over his ABD hernia that is ongoing and is 10/10, but states he3 has had a fever and body aches. Has left lower leg redness. PMS intact. Breath sounds CTA bilat. Mom at cart side, interacts well with pt. Normal [facility] ED Patient Summaryon 023 ED Patient Summary [facility] - Emergency Department [address] [place], [place] [id number] PATIENT DISCHARGE INSTRUCTIONS Patient Information Name: SPIKE NIELSEN Age: 42 Years Date of : 1980 [facility]: [id number] Reason For Visit: Ear pain; Chills; Hernia; CHILLS, BODY ACHES, L EAR PAIN, PAIN WHEN BREATHING Arrival Time: 01/15/2023 06:31:06 Primary Care Physician: Provider, None Attending Physician: Kareem Sanchez MD Comment: Visit Diagnosis: Diagnoses This Visit Cellulitis (L03.90) Cellulitis of left anterior lower leg (L03.116) Chills ([id number]) Ear pain ([id number]) Elevated blood pressure reading (R03.0) Hernia ([id number]) The Pharmacy at [facility] is open Tuesday through Tuesday from 9A to 6P and Tuesday and Tuesday from 9A to 5P Prescription Information: If you have been given a prescription for narcotics, seek immediate medical attention if you have any difficulty breathing or any sudden status changes such as confusion and sleepiness. If you or anyone you know is experiencing suicidal thoughts, mental health, alcohol and/or drug addiction problems; contact the [facility] 27/12 Crisis Hotline -Text 4HGIT to 540323. If you received any narcotics, sedation, or any other medication that causes drowsiness for the next 24 hours, unless otherwise directed: ? Do not drive a car. ? Do not operate machinery such as power tools, lawn mowers, drills, sewing machines, or stoves ? Avoid alcoholic beverages and drugs for allergies, nerves, or sleep ? Do not make important personal or business decisions or sign any legal documents With: Address: When: John Olmstead [address] [place] [address] Business (1) Within 5 to 7 days Comments: Contact your assigned on-call doctor for a follow-up appointment if you do not have a local family doctor or PCP. Alternatively, you may also follow-up in the Urgent Care at [facility] if you are not able to get an appointment with a family doctor within the recommended time. Continue with the current treatment as outlined by the ER physician, Dr Sanchez. Keep leg elevated. May take 2 tablet of Tylenol 3 times a day for fever aches or pain. Take cephalexin 1000 mg twice daily for the next 7 days as instructed. Call the emergency department if you have any questions or concerns regarding your treatment today. Return to the emergency department if you have significant symptoms that concerns you. Medication Information: The exam and treatment you received today in the [facility] Emergency Department were for an urgent problem and are not intended as complete care. It is important for you to follow up with a doctor, nurse practitioner, or physician?s nursing home assistant for ongoing care. If your symptoms become worse or you do not improve as expected and you are unable to reach your usual health care provider, you should return to the Emergency Department, we are available 24 hours a day. For those patients who have received Radiology results, the interpretation of your X-ray as given to you by our Emergency Department physician is only a preliminary report. The Radiologist will review your films and if there is a change in the diagnosis you will be notified by phone. Please make sure you have provided a working phone number so we can reach you if necessary. In the event that you had a lab culture while you were a patient in the Emergency Department, you will be notified by phone if there is a need to change your antibiotic. Please make sure you have provided a working phone number so we can reach you if necessary. [facility] Emergency Department has provided you with a complete list of medications post discharge. Please inform your press manager/provider of your visit and for further instruction on these medications. Any specific questions regarding your chronic medications and dosages should be discussed with your primary care physician(s) and/or pharmacist. New Medications [facility] [id number], [place] [id number], [phone] cephalexin (cephalexin 500 mg oral capsule) 2 cap(s) Oral Every 12 hours scheduled time for 7 Days. Refills: 0. Additional medications on your home medication list not specifically addressed. Please contact the ordering physician if you have questions about these medications. benzonatate (Tessalon Perles 100 mg oral capsule) 1 cap(s) Oral 3 times a day for 7 Days. Refills: 0. busPIRone (busPIRone 15 mg oral tablet) 1 tab(s) Oral 2 times a day. doxycycline (doxycycline hyclate 100 mg oral capsule) 100 Milligram Oral 2 times a day for 7 Days. Refills: 0. febuxostat (febuxostat 40 mg oral tablet) 1 tab(s) Oral every day. ferrous sulfate (ferrous sulfate 325 mg Tab) 325 Milligram Oral every day. hy (more content not included)... [facility] Provider Orderson 01-07-2023 Provider Orders [id number] GTIFF [facility] CT ABD WOon 01-18-2021 CT ABD WO EXAMINATION: CT ABDOMEN WITHOUT CONTRAST 06/23/2020 11:41 am TECHNIQUE: CT of the abdomen was performed without the administration of intravenous contrast. Multiplanar reformatted images are provided for review. Dose modulation, iterative reconstruction, and/or weight based adjustment of the mA/kV was utilized to reduce the radiation dose to as low as reasonably achievable. COMPARISON: 12/21/2018 HISTORY: ORDERING SYSTEM PROVIDED HISTORY: PERUMBBILICAL HERNIA FINDINGS: Lower Chest: Mild heterogeneous ground-glass infiltrates right lung base. Organs: There is mild diffuse low-attenuation of the liver suggesting fatty infiltration. Spleen, pancreas, adrenal glands within normal limits. Patient status post cholecystectomy. GI/Bowel: There are no dilated loops of bowel. There is fat containing ventral hernia with the defect to the left of midline adjacent to just above the umbilicus. There is herniation of peritoneal fat generally measuring 4.3 x 7.2 cm. Peritoneum/Retroperiton eum: There is irregular calcified lesion likely calcified lymph node at the aortocaval space measuring 7.5 by 13.7 mm. Bones/Soft Tissues: Mild endplate spurring thoracolumbar junction. IMPRESSION: There is a fat containing periumbilical hernia somewhat larger compared to prior exam. Mild diffuse fatty infiltration of liver. Mild heterogeneous ground-glass infiltrate right lung base could represent inflammatory or infectious process including atypical infections could be considered. Clinical correlation suggested. Nonaggressive appearing calcified lesion aorto caval space similar to prior exam. Normal [facility] CBC w/Auto Differentialon Anemia ASSISTANT GOLF PROFESSIONAL Normal [facility] Comment on above: Performed By: #### C BC #### [facility] [address] [place], [place] [id number] Anisocytosis Ql (Bld) ASSISTANT GOLF PROFESSIONAL Normal [facility] Comment on above: Performed By: #### C BC #### [facility] [address] [place] [address] Basophils Abs. # 0.0 K/uL Normal 0.0-0.1 [facility] Comment on above: Performed By: #### C BC #### [facility] [place] [address] [place] [address] Basophils/100 WBC (Bld) 0.3 % Normal 0.2-1.[address] [facility] Comment on above: Performed By: #### C BC #### [facility] [place] [address] [place] [address] Basophils/100 WBC (Bld) ASSISTANT GOLF PROFESSIONAL Normal [facility] Comment on above: Performed By: #### C BC #### [facility] [place] [address] [place] [address] Bosophillia # ASSISTANT GOLF PROFESSIONAL Normal [facility] Comment on above: Performed By: #### C BC #### [facility] [place] [address] [place] [address] Eosinophils (Bld) [#/Vol] 0.0 10*3/uL Normal 0.0-0.[address] [facility] Comment on above: Performed By: #### C BC #### [facility] [place] [address] [facility] [address] Eosinophils (Bld) [#/Vol] ASSISTANT GOLF PROFESSIONAL Normal [facility] Comment on above: Performed By: #### C BC #### [facility] [place] [address] [facility] [address] Eosinophils/100 WBC (Bld) 0.2 % Low 0.9-2.[address] [facility] Comment on above: Performed By: #### C BC #### [facility] [place] [address] [place] [address] Eosinophils/100 WBC (Bld) ASSISTANT GOLF PROFESSIONAL Normal [facility] Comment on above: Performed By: #### C BC #### [facility] [place] [address] [place] [address] Erythocytosis ASSISTANT GOLF PROFESSIONAL Normal [facility] Comment on above: Performed By: #### C BC #### [facility] [place] [address] [facility] [address] Erythrocyte distribution width (RBC) [Ratio] 13.5 % Normal 11.5-14.[address] [facility] Comment on above: Performed By: #### C BC #### [facility] [place] [address] [facility] [address] Hematocrit (Bld) [Volume fraction] 41.8 % Normal 36.7-50.[address] [facility] Comment on above: Performed By: #### C BC #### [facility] [place] [address] [facility] [place] [address] Hemoglobin (Bld) [Mass/Vol] 14.0 g/dL Normal 12.4-17.[address] [facility] Comment on above: Performed By: #### C BC #### [facility] [place] [address] [facility] [place] [address] Hypochromia ASSISTANT GOLF PROFESSIONAL Normal [facility] Comment on above: Performed By: #### C BC #### [facility] [place] [address] [facility] [address] Large Platelets ASSISTANT GOLF PROFESSIONAL Normal [facility] Comment on above: Performed By: #### C BC #### [facility] [place] [address] [facility] [place] [address] Leukocytosis ASSISTANT GOLF PROFESSIONAL Normal [facility] Comment on above: Performed By: #### C BC #### [facility] [place] [address] [facility] [place] [address] Leukopenia ASSISTANT GOLF PROFESSIONAL Normal [facility] Comment on above: Performed By: #### C BC #### [facility] [place] [address] [facility] [address] Lymphocytes (Bld) [#/Vol] 1.0 10*3/uL Low 1.3-2.[address] [facility] Comment on above: Performed By: #### C BC #### [facility] [place] [address] [place] [address] Lymphocytes (Bld) [#/Vol] ASSISTANT GOLF PROFESSIONAL Normal [facility] Comment on above: Performed By: #### C BC #### [facility] [place] [address] [facility] [place] [address] Lymphocytes/100 WBC (Bld) ASSISTANT GOLF PROFESSIONAL Normal [facility] Comment on above: Performed By: #### C BC #### [facility] [place] [address] [facility] [address] Lymphocytes/100 WBC (Bld) 26.9 % Normal 17.0-45.[address] [facility] Comment on above: Performed By: #### C BC #### [facility] [place] [address] [facility] [address] Lymphocytosis # ASSISTANT GOLF PROFESSIONAL Normal [facility] Comment on above: Performed By: #### C BC #### [facility] [address] [facility] [place] [address] Lymphocytosis % ASSISTANT GOLF PROFESSIONAL Normal [facility] Comment on above: Performed By: #### C BC #### [facility] [place] [address] [facility] [address] Macrocytosis ASSISTANT GOLF PROFESSIONAL Normal [facility] Comment on above: Performed By: #### C BC #### [facility] [place] [address] [facility] [address] MCH (RBC) [Entitic mass] 29.2 pg Normal 27.0-31.[address] [facility] Comment on above: Performed By: #### C BC #### [facility] [address] [facility] [address] MCHC (RBC) [Mass/Vol] 33.5 g/dL Normal 33.0-37.[address] [facility] Comment on above: Performed By: #### C BC #### [facility] [place] [address] [facility] [address] MCV (RBC) [Entitic vol] 87.0 fL Normal 80.0-94.[address] [facility] Comment on above: Performed By: #### C BC #### [facility] [place] [address] [facility] [address] Microcytosis ASSISTANT GOLF PROFESSIONAL Normal [facility] Comment on above: Performed By: #### C BC #### [facility] [address] [facility] [place] [address] Monocytes (Bld) [#/Vol] 0.3 10*3/uL Normal 0.3-0.[address] [facility] Comment on above: Performed By: #### C BC #### [facility] [place] [address] [facility] [address] Monocytes/100 WBC (Bld) 7.1 % Normal 5.5-11.[address] [facility] Comment on above: Performed By: #### C BC #### [facility] [place] [address] [facility] [address] Monocytosis % ASSISTANT GOLF PROFESSIONAL Normal [facility] Comment on above: Performed By: #### C BC #### [facility] [place] [address] [facility] [address] Neutropenia # ASSISTANT GOLF PROFESSIONAL Normal [facility] Comment on above: Performed By: #### C BC #### [facility] [place] [address] [facility] [address] Neutropenia % ASSISTANT GOLF PROFESSIONAL Normal [facility] Comment on above: Performed By: #### C BC #### [facility] [place] [address] [place] [address] Neutrophils (Bld) [#/Vol] ASSISTANT GOLF PROFESSIONAL Normal [facility] Comment on above: Performed By: #### C BC #### [facility] [place] [address] [place] [address] Neutrophils Abs. # 2.4 K/uL Normal 2.2-4.8 [facility] Comment on above: Performed By: #### C BC #### [facility] [place] [address] [place] [address] Neutrophils/100 WBC (Bld) ASSISTANT GOLF PROFESSIONAL Normal [facility] Comment on above: Performed By: #### C BC #### [facility] [place] [address] [facility] [place] [address] Neutrophils/100 WBC (Bld) 65.5 % High 43.0-65.[address] [facility] Comment on above: Performed By: #### C BC #### [facility] [place] [address] [place] [address] Nucleated RBC (Bld) [#/Vol] 0.0 10*3/uL Normal [facility] Comment on above: Performed By: #### C BC #### [facility] [place] [address] [place] [address] Nucleated RBC/100 WBC (Bld) [Ratio] 0.0 % Normal [facility] Comment on above: Performed By: #### C BC #### [facility] [place] [address] [place] [address] Pancytopenia ASSISTANT GOLF PROFESSIONAL Normal [facility] Comment on above: Performed By: #### C BC #### [facility] [place] [address] [place] [address] Platelet mean volume (Bld) [Entitic vol] 10.7 fL High 7.4-10.[address] [facility] Comment on above: Performed By: #### C BC #### [facility] [place] [address] [place] [address] Platelets (Bld) [#/Vol] 91 10*3/uL Low 148-[address] [facility] Comment on above: Performed By: #### C BC #### [facility] [place] [address] [place] [address] Poikilocytosis ASSISTANT GOLF PROFESSIONAL Normal [facility] Comment on above: Performed By: #### C BC #### [facility] [place] [address] [place] [address] RBC (Bld) [#/Vol] 4.80 10*6/uL Normal 4.13-5.69 [facility] Comment on above: Performed By: #### C BC #### [facility] [place] [address] [place] [address] Small Platelets ASSISTANT GOLF PROFESSIONAL Normal [facility] Comment on above: Performed By: #### C BC #### [facility] [place] [address] [place] [address] Thrombocytopenia ASSISTANT GOLF PROFESSIONAL Normal [facility] Comment on above: Performed By: #### C BC #### [facility] [place] [address] [place] [address] Thrombocytopenia. ASSISTANT GOLF PROFESSIONAL Normal [facility] Comment on above: Performed By: #### C BC #### [facility] [place] [address] [place] [address] Thrombocytosis ASSISTANT GOLF PROFESSIONAL Normal [facility] Comment on above: Performed By: #### C BC #### [facility] [place] [address] [place] [address] WBC (Bld) [#/Vol] 3.7 10*3/uL Normal 3.6-10.8 [facility] Comment on above: Performed By: #### C BC #### [facility] [address] [place] [address] Comprehensive Metabolic Pane patel 04-21-2020 Albumin [Mass/Vol] 3.7 g/dL Normal 3.4-5.0 [facility] Comment on above: Performed By: #### C MP #### [facility] [address] [place] [address] Albumin/Globulin [Mass ratio] 1.4 {ratio} Normal 1.1-2.[address] [facility] Comment on above: Performed By: #### C MP #### [facility] [address] [place] [address] ALP [Catalytic activity/Vol] 70 U/L Normal 54-[address] [facility] Comment on above: Performed By: #### C MP #### [facility] [address] [place] [address] ALT [Catalytic activity/Vol] 94 U/L High 13-[address] [facility] Comment on above: Performed By: #### C MP #### [facility] [address] [place] [address] Anion gap [Moles/Vol] 9.1 mmol/L Normal 8.0-16.[address] [facility] Comment on above: Performed By: #### C MP #### [facility] [address] [place] [address] AST [Catalytic activity/Vol] 33 U/L Normal 3-[address] [facility] Comment on above: Performed By: #### C MP #### [facility] [address] [facility] [place] [address] Bilirubin Ql (U) 0.37 mg/dL Normal 0.00-0.99 [facility] Comment on above: Performed By: #### C MP #### [facility] [address] [facility] [place] [address] Calcium [Mass/Vol] 8.8 mg/dL Normal 8.2-10.0 [facility] Comment on above: Performed By: #### C MP #### [facility] [address] [place] [address] Chloride [Moles/Vol] 109 mmol/L Normal 94-110 [facility] Comment on above: Performed By: #### C MP #### [facility] [address] [place] [address] CO2 [Moles/Vol] 31 mmol/L Normal 21-[address] [facility] Comment on above: Performed By: #### C MP #### [facility] [address] [place] [address] Creatinine [Mass/Vol] 0.71 mg/dL Normal 0.50-1.[address] [facility] Comment on above: Performed By: #### C MP #### [facility] [address] [place] [address] GFR/1.73 sq M predicted among blacks MDRD (S/P/Bld) [Vol rate/Area] mL/min/{1.73_m2} Normal >[address] [facility] Comment on above: Result Comment: [employer]munition [employer] Superintendent eliana Kidney Disease less than 60 mL/min/1.73 m2 Kidney Failure less than 15 mL/min/1.73 m2 Average estimated GFR by age: 40-49 years 99 mL/min/1.73 m2 Performed By: #### C MP #### [facility] [address] [place] [address] GFR/1.73 sq M predicted among non-blacks MDRD (S/P/Bld) [Vol rate/Area] mL/min/{1.73_m2} Normal >[address] [facility] Comment on above: Performed By: #### C MP #### [facility] [address] [place] [address] Globulin (S) [Mass/Vol] 2.6 g/dL Normal 1.5-4.[address] [facility] Comment on above: Result Comment: CO RRECTED REPORT: Previous result was 2.7 at 13:04 on 04/21/20 Performed By: #### C MP #### [facility] [address] [place] [address] Glucose [Mass/Vol] 112 mg/dL High 65-100 [facility] Comment on above: Performed By: #### C MP #### [facility] [address] [place] [address] Potassium [Moles/Vol] 4.1 mmol/L Normal 3.3-5.[address] [facility] Comment on above: Performed By: #### C MP #### [facility] [address] [place] [address] Protein [Mass/Vol] 6.3 g/dL Normal 6.1-8.2 [facility] Comment on above: Performed By: #### C MP #### [facility] [address] [place] [address] Sodium [Moles/Vol] 145 mmol/L Normal 132-145 [facility] Comment on above: Performed By: #### C MP #### [facility] [address] [place] [address] Urea nitrogen [Mass/Vol] 19.2 mg/dL Normal 3.2-26.[address] [facility] Comment on above: Performed By: #### C MP #### [facility] [address] [place] [address] Urea nitrogen/Creatinine [Mass ratio] 27 mg/mg High 6-[address] [facility] Comment on above: Performed By: #### C MP #### [facility] [address] [place] [address] Hemoglobin A1con 04-21-2020 HbA1c (Bld) [Mass fraction] 5.6 % Normal 4.8-5.[address] [facility] Comment on above: Result Comment: Pred iabetes: 5.7 - 6.4 Diabetes: >6.4 Glycemic control for adults with diabetes: <7.0 Performed at: [address] [id number] [employer] Machine Filler: Romulo Peng PhD, Phone: [phone] Performed By: #### H A1C #### [facility] [address] [place] [address] Lipid Panelon 04-21-2020 Cholesterol [Mass/Vol] 121 mg/dL Normal 0-[address] [facility] Comment on above: Performed By: #### L IPID #### [facility] [address] [place] [address] Cholesterol in HDL [Mass/Vol] 37 mg/dL Low 39-[address] [facility] Comment on above: Performed By: #### L IPID #### [facility] [address] [place] [address] Cholesterol in LDL [Mass/Vol] 55 mg/dL Normal 0-[address] [facility] Comment on above: Performed By: #### L IPID #### [facility] [address] [place] [address] Cholesterol in LDL/Cholesterol in HDL [Mass ratio] 1.5 mg/dL Normal 0.0-3.[address] [facility] Comment on above: Performed By: #### L IPID #### [facility] [address] [place] [address] Cholesterol in VLDL [Mass/Vol] 29 mg/dL Normal 5-[address] [facility] Comment on above: Performed By: #### L IPID #### [facility] [address] [place] [address] Cholesterol.total/Ch olesterol in HDL [Mass ratio] 3.3 {ratio} Normal 0.0-5.[address] [facility] Comment on above: Performed By: #### L IPID #### [facility] [address] [place] [address] Triglyceride [Mass/Vol] 146 mg/dL Normal 0-[address] [facility] Comment on above: Result Comment: 150- 199 Borderline High 200-499 High >499 Very High Performed By: #### L IPID #### [facility] [address] [place] [address] Thyroid [place] Profileon Thyroid [place] Comment: see below Normal [facility] Comment on above: Result Comment: Jj ramos December 16, the Thyroid [place] has been changed. Please consult the back of our lab requisition. Performed By: #### C BC #### [facility] [address] [place] [address] TSH, 3rd Generation 1.740 uIU/L Normal 0.358-3.[address] [facility] Comment on above: Result Comment: NOTE -Dietary supplements containing high biotin levels may cause significant interference with affected lab tests, including cardiovascular diagnostic tests and hormone tests that use biotin technology. Incorrect test results may be generated if there is biotin in the patients specimen. Performed By: #### C BC #### [facility] [address] [place] [address] ALT (SGPT)on 12-03-2019 ALT [Catalytic activity/Vol] 93 U/L High 13-[address] [facility] Comment on above: Performed By: #### A LT #### [facility] [address] [place] [address] AST (SGOT)on 12-03-2019 AST [Catalytic activity/Vol] 39 U/L Normal 3-[address] [facility] Comment on above: Performed By: #### A ST #### [facility] [address] [place] [address] BILATERAL ANKLE MIN 3 VIEWSo n 12-03-2019 BILATERAL ANKLE MIN 3 VIEWS EXAMINATION: 6 XRAY VIEWS OF THE BILATERAL ANKLES 12/03/2019 1:13 pm COMPARISON: None. HISTORY: ORDERING SYSTEM PROVIDED HISTORY: PAIN RT LEFT ANKLE FINDINGS: 6 views bilateral ankles demonstrate the ankle mortise to be intact bilaterally. There is generalized soft tissue swelling bilaterally with no evidence of acute fracture or subluxation. There is prominent posterior calcaneal spurring bilaterally with no plantar spur noted. IMPRESSION: Marked bilateral soft tissue swelling without fracture or subluxation. Thank you very much for this referral! RECOMMENDATION: If further evaluation is desired, I recommend bilateral three-phase ankle scanned versus MRI of the most affected ankle. Normal [facility] Basic Metabolic Panelon 11-05 Anion gap [Moles/Vol] 12.1 mmol/L Normal 8.0-16.[address] [facility] Comment on above: Performed By: #### B MP #### [facility] [address] [place] [address] Calcium [Mass/Vol] 9.0 mg/dL Normal 8.2-10.0 [facility] Comment on above: Performed By: #### B MP #### [facility] [address] [place] [address] Chloride [Moles/Vol] 107 mmol/L Normal 94-110 [facility] Comment on above: Performed By: #### B MP #### [facility] [address] [place] [address] CO2 [Moles/Vol] 27 mmol/L Normal 21-[address] [facility] Comment on above: Performed By: #### B MP #### [facility] [address] [place] [address] Creatinine [Mass/Vol] 0.93 mg/dL Normal 0.50-1.[address] [facility] Comment on above: Performed By: #### B MP #### [facility] [address] [place] [address] GFR/1.73 sq M predicted among blacks MDRD (S/P/Bld) [Vol rate/Area] mL/min/{1.73_m2} Normal >[address] [facility] Comment on above: Result Comment: [employer] Superintendent eliana Kidney Disease less than 60 mL/min/1.73 m2 Kidney Failure less than 15 mL/min/1.73 m2 Average estimated GFR by age: 40-49 years 99 mL/min/1.73 m2 Performed By: #### B MP #### [facility] [address] [place] [address] GFR/1.73 sq M predicted among non-blacks MDRD (S/P/Bld) [Vol rate/Area] mL/min/{1.73_m2} Normal >[address] [facility] Comment on above: Performed By: #### B MP #### [facility] [address] [place] [address] Glucose [Mass/Vol] 95 mg/dL Normal 65-100 [facility] Comment on above: Performed By: #### B MP #### [facility] [address] [place] [address] Potassium [Moles/Vol] 4.1 mmol/L Normal 3.3-5.[address] [facility] Comment on above: Performed By: #### B MP #### [facility] [address] [place] [address] Sodium [Moles/Vol] 142 mmol/L Normal 132-145 [facility] Comment on above: Performed By: #### B MP #### [facility] [address] [place] [address] Urea nitrogen [Mass/Vol] 16.6 mg/dL Normal 3.2-26.[address] [facility] Comment on above: Performed By: #### B MP #### [facility] [address] [place] [address] Urea nitrogen/Creatinine [Mass ratio] 18 mg/mg Normal 6-[address] [facility] Comment on above: Performed By: #### B MP #### [facility] [address] [place] [address] CBC w/Auto Differentialon Anemia ASSISTANT GOLF PROFESSIONAL Normal [facility] Comment on above: Performed By: #### C BC #### [facility] [address] [place] [address] Anisocytosis Ql (Bld) ASSISTANT GOLF PROFESSIONAL Normal [facility] Comment on above: Performed By: #### C BC #### [facility] [address] [place] [address] Basophils Abs. # 0.0 K/uL Normal 0.0-0.1 [facility] Comment on above: Performed By: #### C BC #### [facility] [address] [place] [address] Basophils/100 WBC (Bld) 0.3 % Normal 0.2-1.[address] [facility] Comment on above: Performed By: #### C BC #### [facility] [place] [address] [facility] [address] Basophils/100 WBC (Bld) ASSISTANT GOLF PROFESSIONAL Normal [facility] Comment on above: Performed By: #### C BC #### [facility] [place] [address] [place] [address] Bosophillia # ASSISTANT GOLF PROFESSIONAL Normal [facility] Comment on above: Performed By: #### C BC #### [facility] [place] [address] [facility] [place] [address] Eosinophils (Bld) [#/Vol] ASSISTANT GOLF PROFESSIONAL Normal [facility] Comment on above: Performed By: #### C BC #### [facility] [place] [address] [facility] [place] [address] Eosinophils (Bld) [#/Vol] 0.0 10*3/uL Normal 0.0-0.[address] [facility] Comment on above: Performed By: #### C BC #### [facility] [place] [address] [facility] [place] [address] Eosinophils/100 WBC (Bld) ASSISTANT GOLF PROFESSIONAL Normal [facility] Comment on above: Performed By: #### C BC #### [facility] [place] [address] [facility] [address] Eosinophils/100 WBC (Bld) 0.2 % Low 0.9-2.[address] [facility] Comment on above: Performed By: #### C BC #### [facility] [place] [address] [facility] [address] Erythocytosis ASSISTANT GOLF PROFESSIONAL Normal [facility] Comment on above: Performed By: #### C BC #### [facility] [place] [address] [facility] [address] Erythrocyte distribution width (RBC) [Ratio] 13.4 % Normal 11.5-14.[address] [facility] Comment on above: Performed By: #### C BC #### [facility] [place] [address] [place] [address] Hematocrit (Bld) [Volume fraction] 45.8 % Normal 36.7-50.[address] [facility] Comment on above: Performed By: #### C BC #### [facility] [place] [address] [facility] [place] [address] Hemoglobin (Bld) [Mass/Vol] 15.6 g/dL Normal 12.4-17.[address] [facility] Comment on above: Performed By: #### C BC #### [facility] [place] [address] [facility] [place] [address] Hypochromia ASSISTANT GOLF PROFESSIONAL Normal [facility] Comment on above: Performed By: #### C BC #### [facility] [place] [address] [facility] [place] [address] Large Platelets ASSISTANT GOLF PROFESSIONAL Normal [facility] Comment on above: Performed By: #### C BC #### [facility] [place] [address] [facility] [place] [address] Leukocytosis ASSISTANT GOLF PROFESSIONAL Normal [facility] Comment on above: Performed By: #### C BC #### [facility] [place] [address] [facility] [place] [address] Leukopenia ASSISTANT GOLF PROFESSIONAL Normal [facility] Comment on above: Performed By: #### C BC #### [facility] [place] [address] [place] [address] Lymphocytes (Bld) [#/Vol] ASSISTANT GOLF PROFESSIONAL Normal [facility] Comment on above: Performed By: #### C BC #### [facility] [place] [address] [facility] [place] [address] Lymphocytes (Bld) [#/Vol] 1.7 10*3/uL Normal 1.3-2.[address] [facility] Comment on above: Performed By: #### C BC #### [facility] [place] [address] [facility] [place] [address] Lymphocytes/100 WBC (Bld) 33.3 % Normal 17.0-45.[address] [facility] Comment on above: Performed By: #### C BC #### [facility] [place] [address] [facility] [address] Lymphocytes/100 WBC (Bld) ASSISTANT GOLF PROFESSIONAL Normal [facility] Comment on above: Performed By: #### C BC #### [facility] [place] [address] [facility] [address] Lymphocytosis # ASSISTANT GOLF PROFESSIONAL Normal [facility] Comment on above: Performed By: #### C BC #### [facility] [place] [address] [facility] [address] Lymphocytosis % ASSISTANT GOLF PROFESSIONAL Normal [facility] Comment on above: Performed By: #### C BC #### [facility] [place] [address] [facility] [address] Macrocytosis ASSISTANT GOLF PROFESSIONAL Normal [facility] Comment on above: Performed By: #### C BC #### [facility] [place] [address] [facility] [address] MCH (RBC) [Entitic mass] 29.4 pg Normal 27.0-31.[address] [facility] Comment on above: Performed By: #### C BC #### [facility] [place] [address] [facility] [place] [address] MCHC (RBC) [Mass/Vol] 34.0 g/dL Normal 33.0-37.[address] [facility] Comment on above: Performed By: #### C BC #### [facility] [place] [address] [facility] [address] MCV (RBC) [Entitic vol] 86.2 fL Normal 80.0-94.[address] [facility] Comment on above: Performed By: #### C BC #### [facility] [place] [address] [facility] [address] Microcytosis ASSISTANT GOLF PROFESSIONAL Normal [facility] Comment on above: Performed By: #### C BC #### [facility] [place] [address] [facility] [place] [address] Monocytes (Bld) [#/Vol] 0.4 10*3/uL Normal 0.3-0.[address] [facility] Comment on above: Performed By: #### C BC #### [facility] [place] [address] [facility] [place] [address] Monocytes/100 WBC (Bld) 7.6 % Normal 5.5-11.[address] [facility] Comment on above: Performed By: #### C BC #### [facility] [place] [address] [facility] [place] [address] Monocytosis % ASSISTANT GOLF PROFESSIONAL Normal [facility] Comment on above: Performed By: #### C BC #### [facility] [place] [address] [facility] [place] [address] Neutropenia # ASSISTANT GOLF PROFESSIONAL Normal [facility] Comment on above: Performed By: #### C BC #### [facility] [place] [address] [facility] [address] Neutropenia % ASSISTANT GOLF PROFESSIONAL Normal [facility] Comment on above: Performed By: #### C BC #### [facility] [place] [address] [facility] [place] [address] Neutrophils (Bld) [#/Vol] ASSISTANT GOLF PROFESSIONAL Normal [facility] Comment on above: Performed By: #### C BC #### [facility] [place] [address] [place] [address] Neutrophils Abs. # 2.9 K/uL Normal 2.2-4.8 [facility] Comment on above: Performed By: #### C BC #### [facility] [place] [address] [facility] [place] [address] Neutrophils/100 WBC (Bld) 58.6 % Normal 43.0-65.[address] [facility] Comment on above: Performed By: #### C BC #### [facility] [place] [address] [facility] [address] Neutrophils/100 WBC (Bld) ASSISTANT GOLF PROFESSIONAL Normal [facility] Comment on above: Performed By: #### C BC #### [facility] [place] [address] [facility] [address] Nucleated RBC (Bld) [#/Vol] 0.0 10*3/uL [facility] Comment on above: Performed By: #### C BC #### [facility] [place] [address] [facility] [address] Nucleated RBC/100 WBC (Bld) [Ratio] 0.0 % Normal [facility] Comment on above: Performed By: #### C BC #### [facility] [place] [address] [place] [address] Pancytopenia ASSISTANT GOLF PROFESSIONAL Normal [facility] Comment on above: Performed By: #### C BC #### [facility] [place] [address] [place] [address] Platelet mean volume (Bld) [Entitic vol] 10.9 fL High 7.4-10.[address] [facility] Comment on above: Performed By: #### C BC #### [facility] [place] [address] [place] [address] Platelets (Bld) [#/Vol] 105 10*3/uL Low 148-[address] [facility] Comment on above: Performed By: #### C BC #### [facility] [place] [address] [place] [address] Poikilocytosis ASSISTANT GOLF PROFESSIONAL Normal [facility] Comment on above: Performed By: #### C BC #### [facility] [place] [address] [place] [address] RBC (Bld) [#/Vol] 5.31 10*6/uL Normal 4.13-5.69 [facility] Comment on above: Performed By: #### C BC #### [facility] [place] [address] [place] [address] Small Platelets ASSISTANT GOLF PROFESSIONAL Normal [facility] Comment on above: Performed By: #### C BC #### [facility] [place] [address] [place] [address] Thrombocytopenia ASSISTANT GOLF PROFESSIONAL Normal [facility] Comment on above: Performed By: #### C BC #### [facility] [place] [address] [place] [address] Thrombocytopenia. ASSISTANT GOLF PROFESSIONAL Normal [facility] Comment on above: Performed By: #### C BC #### [facility] [place] [address] [place] [address] Thrombocytosis ASSISTANT GOLF PROFESSIONAL Normal [facility] Comment on above: Performed By: #### C BC #### [facility] [place] [address] [place] [address] WBC (Bld) [#/Vol] 5.0 10*3/uL Normal 3.6-10.8 [facility] Comment on above: Performed By: #### C BC #### [facility] [address] [place] [address] RA Latex Turbid.on 0 RA Latex Turbid. <10.0 Normal 0.0-13.9 [facility] Comment on above: Result Comment: Perf ormed at: CB - [facility] [address] [id number] Gum Machine Filler: Romulo Peng PhD, Phone: [phone] Performed By: #### R FWT #### [facility] [address] [place], [place] [id number] Sedimentation Rateon 020 Sedimentation Rate 4 mm/hr Normal 0-10 [facility] Comment on above: Performed By: #### E SR #### [facility] [address] [place], [place] [id number] Uric Acidon 12-03-2019 Urate [Mass/Vol] 6.1 mg/dL Normal 3.4-8.6 [facility] Comment on above: Performed By: #### C BC #### [facility] [address] [place], [place] [address] HISTORY PHYSICALon 0 HISTORY PHYSICAL HNO ID: [id number] Author: Viviane Hughes Service: ? Author Type: Physician Frame Aligner Type: HANDP Filed: 06/19/2019 9:19 AM Note Text: PROCEDURAL SEDATION HISTORY AND PHYSICAL EXAM SERVICE DATE: 06/19/2019 SERVICE TIME: 9:18 AM Subjective HPI: This is a 39 year old male who presents with LLQ pain here for colonoscopy. Does not know family history,he is adopted. PAST ANESTHESIA HISTORY: No history of adverse event PAST MEDICAL HISTORY Diagnosis Date - Bipolar disorder (HCC) - Depression - Hypertension No past surgical history on file. Prior to Admission medications as of 06/19/19 0902 Medication Sig Last Dose Taking doxepin capsule 50 mg Take 50 mg by mouth daily at bedtime. levomilnacipran ER (FETZIMA) 40 mg Take 40 mg by mouth once daily. famotidine/Ca carb/mag hydrox (ACID GREASE MAN COMPLETE, FAMOT, ORAL) Take 1 tablet by mouth twice daily. B Complex Vitamins capsule Take 1 capsule by mouth once daily. zc-hps-lrllc acid-lutein (CENTRUM SILVER) 400-250 mcg chew Take 1 tablet by mouth once daily. triamterene (DYRENIUM) 50 mg capsule Take 50 mg by mouth twice daily. ondansetron (ZOFRAN) 4 mg tablet Take 1 tablet by mouth every 8 hours as needed for Nausea/Vomiting. clonazePAM (KLONOPIN) 1 mg tablet Take 1 mg by mouth twice daily as needed. traZODone (DESYREL) 100 mg tablet Take 100 mg by mouth daily at bedtime. ascorbic acid, vitamin C, (VITAMIN C) 500 mg tablet Take 500 mg by mouth once daily. cyanocobalamin (VITAMIN B-12) 1,000 mcg tab Take 1,000 mcg by mouth once daily. hydroCHLOROthiazide (HYDRODIURIL, ESIDRIX) 25 mg tablet Take 25 mg by mouth once daily. busPIRone (BUSPAR) 15 mg tablet Take 15 mg by mouth three times daily. febuxostat (ULORIC) 40 mg tab Take by mouth once daily. OXcarbazepine (TRILEPTAL) 300 mg tablet Take 300 mg by mouth twice daily. ALLERGIES Allergen Reactions - Wellbutrin [Bupropi* Rash Objective PHYSICAL EXAM: The remainder of the physical exam is noncontributory. AIRWAY: Airway Visualization of Uvula: Yes Mouth opening greater than 2 fingerbreadths: Yes Neck Full Range of Motion: Yes LUNGS: Lungs clear to auscultation, Good diaphragmatic excursion CARDIAC: Normal S1 and S2; no rubs, murmurs, or gallops, regular rate and rhythm Assessment/Plan ASA Class: ASA Class:: Patient with severe systemic disease Active Problems: Left lower quadrant pain POA: Unknown Assessment AND Plan: Left lower quadrant pain Resolved Problems: * No resolved hospital problems. * Provisional Diagnosis/Treatment Plan: Left lower quadrant pain/Colonoscopy SIGNATURE: Viviane Hughes PA-C PATIENT NAME: Spike Nielsen DATE: June 19, 2019 TIME: 9:18 AM PAGER: [phone] [facility] PT EDon 06-19-2019 PT ED HNO ID: [id number] Author: Daniela BeckwithRn) FRANCIA Ramos Service: Nursing Author Type: Registered Nurse Type: Patient Education Filed: 06/19/2019 10:31 AM Note Text: POST OP LEARNING RESPONSE INSTRUCTION PROVIDED TO: Patient and family member METHOD OF INSTRUCTION: Written instruction - handouts Verbal instruction PATIENT / FAMILY RESPONSE: Verbalizes understanding of: POST-PROCEDURE INSTRUCTIONS-Correct actions to take to reduce post procedure complications FOLLOW-UP PLAN: Follow up phone call. SUPPLEMENTAL MATERIAL: None REFERRAL (RECOMMENDATION): None Electronically Signed By: Daniela Ramos RN In Department: PROCEDURES [facility] PT ED HNO ID: [id number] Author: Daphne BeckwithRn) FRANCIA Byers Service: ? Author Type: Registered Nurse Type: Patient Education Filed: 06/19/2019 9:13 AM Note Text: PRE OP LEARNING ASSESSMENT TOPIC: Survival Skills: PROCEDURE/SURGERY Procedure/Surgery: Colonoscopy READINESS TO LEARN COGNITIVE ABILITY: Alert and oriented MOTIVATION TO LEARN: Interested FAMILY SUPPORT: High - Very involved in pt care PATIENT LEARNS BEST BY: Written Instruction - Hand-outs Verbal Instruction FACTORS AFFECTING LEARNING: None PHYSICAL LIMITATIONS AFFECTING LEARNING: None Electronically Signed By: Daphne Byers RN In Department: PROCEDURES [facility] HOSPon 06-12-2019 HOSP Patient:Jack Nielsen MRN: Height:5' 10.984 (1.803 m) Weight:353 lb 2.8 oz (160.2 kg) Outpatient Medications as of 06/19/19: doxepin capsule 50 mg levomilnacipran ER (FETZIMA) 40 mg famotidine/Ca carb/mag hydrox (ACID GREASE MAN COMPLETE, FAMOT, ORAL) B Complex Vitamins capsule ri-gpl-[id number] acid-lutein (CENTRUM SILVER) 400-250 mcg chew triamterene (DYRENIUM) 50 mg capsule ondansetron (ZOFRAN) 4 mg tablet clonazePAM (KLONOPIN) 1 mg tablet traZODone (DESYREL) 100 mg tablet ascorbic acid, vitamin C, (VITAMIN C) 500 mg tablet cyanocobalamin (VITAMIN B-12) 1,000 mcg tab hydroCHLOROthiazide (HYDRODIURIL, ESIDRIX) 25 mg tablet busPIRone (BUSPAR) 15 mg tablet febuxostat (ULORIC) 40 mg tab OXcarbazepine (TRILEPTAL) 300 mg tablet Admission/Clinic Administered Medications as of 06/19/19: NaCl 0.9% iv infusion Problem List: Hypertension [I10] Bipolar disorder (HCC) [F31.9] Depression [F32.9] Lymph node enlargement [R59.9] Obesity, Class III, 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 CROW Date of Surgery: 06/22/2019 Planned Surgery/Procedure: REPAIR HERNIA UMBILICAL INCARCERATED OR STRANGULATED, > 5 YEARS Allergies have been reviewed and verified. They include the following: Wellbutrin [Bupropion Hcl] Social History Tobacco Use - Smoking status: Former Smoker - Smokeless tobacco: Never Used - Tobacco comment: quit in mid 20's Substance Use Topics - Alcohol use: Never Frequency: Never - Drug use: Never Medications reviewed and updated: Yes Lisa Evans MD 06/08/2019 2:23 PM Signed HISTORY AND PHYSICAL EXAMINATION (IMPA[facility]) SERVICE DATE: 06/08/2019 SERVICE TIME: 2:04 PM PRIMARY CARE PHYSICIAN: KAMI Ro CHIEF COMPLAINT/HISTORY OF PRESENT ILLNESS: Mr. Nielsen is a 39 year old male referred to me for preoperative evaluation. My final recommendations will be communicated back to the requesting physician/surgeon by the way of the shared medical record. Referring Surgeon: Dr. CROW Date of Surgery: 06/22/2019 Planned Surgery/Procedure: REPAIR HERNIA UMBILICAL INCARCERATED OR STRANGULATED, > 5 YEARS AND CHOLECYSTECTOMY Indication for Planned Surgery / Procedure: From Dr. Crow's notes: 38 year old male who presents with generalized abdominal pain. He had a recent ERCP and sphincterotomy for choledocholithiasis and needs a cholecystectomy but currently has no RUQ pain. He also has a palpable umbilical hernia that is symptomatic and contains preperitoneal fat on CT. Medical History Bipolar disorder Gout--treated with febuxostat Gallstones--s/p ERCP. Cholecystectomy planned Inflammatory abdominal lymphadenopathy--the patient had a Bx of LN in 2017 showing histiocytic rxn with necrosis. Adenopathy improved. Patient is Able to Perform the Following Physical Activity: Climb a flight of stairs or walk up a hill (5.50 METs) Patient's functional class is II based on self-reported physical activity. Significant Anesthesia Considerations: None. PAST MEDICAL/SURGICAL/FAMILY /SOCIAL HISTORY PAST MEDICAL HISTORY Diagnosis Date - Bipolar disorder (HCC) - Depression - Hypertension No past surgical history on file. FAMILY HISTORY Adopted: Yes SOCIAL HISTORY Social History Tobacco Use - Smoking status: Former Smoker Packs/day: 0.10 Years: 3.00 Pack years: 0.30 Types: Cigarettes Last attempt to quit: 1982 Years since quittin.0 - Smokeless tobacco: Never Used Substance Use Topics - Alcohol use: Never Frequency: Never - Drug use: Never MEDICATIONS/ALLERGIES Current Outpatient Medications Medication Sig Dispense Refill - doxepin capsule 50 mg Take 50 mg by mouth daily at bedtime. - levomilnacipran ER (FETZIMA) 40 mg Take 40 mg by mouth once daily. - famotidine/Ca carb/mag hydrox (ACID GREASE MAN COMPLETE, FAMOT, ORAL) Take 1 tablet by mouth twice daily. - B Complex Vitamins capsule Take 1 capsule by mouth once daily. - od-gra-hfdmb acid-lutein (CENTRUM SILVER) 400-250 mcg chew Take 1 tablet by mouth once daily. - traZODone (DESYREL) 100 mg tablet Take 100 mg by mouth daily at bedtime. - ascorbic acid, vitamin C, (VITAMIN C) 500 mg tablet Take 500 mg by mouth once daily. - cyanocobalamin (VITAMIN B-12) 1,000 mcg tab Take 1,000 mcg by mouth once daily. - busPIRone (BUSPAR) 15 mg tablet Take 15 mg by mouth three times daily. - febuxostat (ULORIC) 40 mg tab Take by mouth once daily. - OXcarbazepine (TRILEPTAL) 300 mg tablet Take 300 mg by mouth twice daily. - triamterene (DYRENIUM) 50 mg capsule Take 50 mg by mouth twice daily. - ondansetron (ZOFRAN) 4 mg tablet Take 1 tablet by mouth every 8 hours as needed for Nausea/Vomiting. 30 tablet 0 - clonazePAM (KLONOPIN) 1 mg tablet Take 1 mg by mouth twice daily as needed. - pantoprazole DR (PROTONIX) 40 mg tablet Take 40 mg by mouth once daily. - hydroCHLOROthiazide (HYDRODIURIL, ESIDRIX) 25 mg tablet Take 25 mg by mouth once daily. No current facility-administered medications for this visit. ALLERGIES Allergen Reactions - Wellbutrin [Bupropi* Rash REVIEW OF SYSTEMS General: No weight loss, malaise or fevers. Neuro: No history of TIA's, stroke, [employer] tumor, impaired sensorium, hemiplegia, paraplegia or quadriplegia. No neurological symptoms or problems. Respiratory: No history of current cough or dyspnea, or pneumonia in the past 6 weeks. No history of respiratory/pulmonary symptoms or problems. Cardiovascular: Hypertension GI: See HPI : No history of UTI in past 6 weeks. No history of renal failure. Not currently on or requiring dialysis. No history of symptoms or problems. Endocrine: No history of diabetes. Has not taken steroids within the past 30 days. No history of endocrinological symptoms or problems. Hematology: No history of bleeding or clotting disorder. No history of hematological symptoms or problems. Oncology: No history of CA metastasis, chemo within 30 days, or radiotherapy within 90 days. No history of oncological symptoms or problems. Psych: Bipolar disorder Skin: Negative for lesions, rash, and itching. PHYSICAL EXAM VITALS: BP 141/79 Pulse 79 Temp (Src) 98.1 (Oral) Ht 5' 11 (1.80m) Wt 353 lb 3.2 oz (160.2kg) SpO2 96% BMI 49.28 kg/(m2). General: Alert and oriented, Obese Skin: Normal color, no rash, no lesions. HEENT: EOM, pupils equal, round and reactive. Cardiovascular: Normal S1 AND S2, no rubs, murmurs or gallops. No JVD. Pulse regular. Lungs: Normal breath sounds, no wheezes or crackles. Abdomen: Soft, non-tender, no rigidity. Extremities: Bilateral edema below the knees Neurological: Normal cognition and motor skills. Pulses: Carotid and radial pulses normal +2. ASSESSMENT Mr. Nielsen is a 39 year old male referred to me for preoperative evaluation. Patient has the following medical comorbidities which might affect the perioperative course: Bipolar disorder-treated with medications. Continue medications Gout--treated with febuxostat Gallstones--s/p ERCP. Cholecystectomy planned Inflammatory abdominal lymphadenopathy--the patient had a Bx of LN in 2017 showing histiocytic rxn with necrosis. Adenopathy improved. Bilateral LE edema--intermittent edema of the lower legs. Probably related to obesity and some venous insufficiency Patient's RCRI (Revised Cardiac Risk Index: CAD/CHF/Stroke or TIA/SCr>2/DM on Insulin/High Risk Surgery) score is 0 and is at low risk for major adverse cardiac events in the perioperative period. Diagnostic tests reviewed for today's visit: Most recent labs NORMAL SINUS RHYTHM NORMAL ECG PLAN/RECOMMENDATIONS CARDIAC: Patient is at optimal cardiac condition for scheduled surgery / procedure. PULMONARY: Patient is at optimal Pulmonary status for scheduled surgery / procedure. Patient is optimally prepared for surgery. Patient Instructions: As per patient instructions section. I have discussed the above recommendations with the patient in detail, in pamela and lay terms, and provided a written summary of instructions as needed. We have discussed that no surgery is without risk, but that the goal of preoperative assessment is to optimize that risk, and that was clearly understood by the patient. I have given ample opportunity for the patient to ask questions, and answered all questions to their stated satisfaction. SIGNATURE: Augusto Evans MD PATIENT NAME: Spike Nielsen DATE: June 08, 2019 TIME: 2:04 PM Augusto Evans MD 06/08/2019 2:22 PM Signed [facility] Patient instructions for day of surgery Do not eat or drink anything after midnight the day before surgery except for morning medications listed below. Candy, mints, gum, and smoking are NOT permitted. If my surgery is scheduled for the afternoon, you may be allowed to drink water in the morning but this will be decided by your surgeon. The following medications should be stopped prior to surgery: NONE Medications on Day of Surgery may be taken with sips of water: Current Outpatient Medications Medication Sig - levomilnacipran ER (FETZIMA) 40 mg Take 40 mg by mouth once daily. - famotidine/Ca carb/mag hydrox (ACID GREASE MAN COMPLETE, FAMOT, ORAL) Take 1 tablet by mouth twice daily. - busPIRone (BUSPAR) 15 mg tablet Take 15 mg by mouth three times daily. - OXcarbazepine (TRILEPTAL) 300 mg tablet Take 300 mg by mouth twice daily. - clonazePAM (KLONOPIN) 1 mg tablet Take 1 mg by mouth twice daily as needed. Documents listed below (if any) need to be faxed (by you or your physician) as soon as possilbe to [phone], ATTN: Augusto Evans MD If you have any questions or concerns regarding today's visit please do not hesitate to contact the [facility] center at [phone] or [phone], ext [phone]. Progress Notes ([facility]): Umer Winston DO, DO 06/08/2019 3:40 PM Addendum ANESTHESIA PRE-OPERATIVE ASSESSMENT (PACE) SERVICE DATE: 06/08/2019 SERVICE TIME: 3:05pm ASSESSMENT AND PLAN: Spike Nielsen is a 39 year old male scheduled for umbilical hernia repair and laparoscopic cholecystecomy per Surgery Request Case in MAIN on . PMH: 1. Choledocholithiasis s/p ERCP with sphincterotomy 2. Umbilical Hernia 3. HTN - not on medication currently 4. Bipolar Disorder - trazodone, clonazepam, buspirone 5. Gout - Febuxostat 6. GERD - Famotidine 7. Obesity - BMI 49.26 Kg/M2 [facility]: 3 METS: Climb a flight of stairs or walk up a hill (5.50 METs) Patient denies any chest pain or undue shortness of breath with the above physical activity. Patient WILL accept blood products. BLOOD WORK/PRODUCTS ORDERED: Type and Screen , Con ABO HISTORY OF CHRONIC PAIN: No PAIN MANAGEMENT OPTIONS: Routine/PRN IV and Final pain management plan will be discussed on the day of surgery. ANESTHETIC OPTIONS: General and Final anesthesia management options will be discussed on day of surgery. PRE-OP PLAN ORDERED: Not Applicable Patient Instructed: ? No solid food or non-clear liquids after midnight. Clear liquids allowed until two hours before scheduled arrival. ? Patient instructed to take the following medications with a sip of water: levomilnacipran, famotidine, busprirone, oxcarbazepine, clonazepam Vital Signs: BP 141/79 Pulse 79 Temp 36.7 ?C (98.1 ?F) Ht 180.3 cm (5' 10.98 ) Wt (!) 160.2 kg (353 lb 2.8 oz) SpO2 96% BMI 49.28 kg/m? BMI 49.28 kg/(m2) Vital signs completed by: [facility] Weight acquired: per HANDP. Height acquired: per HANDP Airway Exam: MOUTH OPENING/TMJ: Full jaw ROM MICROGNATHIA/OVERBITE: No MALLAMPATI SCORE is CLASS IV UPPER LIP BITE TEST: Class I - Lower incisors can bite the upper lip above the jayy line DENTITION: Chipped, loose, and/or missing - Right upper teeth are missing and few bottom teeth missing as well THYROMENTAL DIST: WNL SHORT NECK: Yes - short/thick secondary to obesity. NECK CIRCUMFERENCE >40 cm: Appears > than 40 CM NECK FLEX: Full ROM NECK EXTENSION: Full ROM AIRWAY HISTORY: No abnormal airway history ARKS AIRWAY DETAIL: N/A DATA: EKG READING: Unconfirmed - Procedure Date : Jun 08 2019 13:23:32 Edit Date : Jun 08 2019 13:22:51 ? Diagnosis:NORMAL SINUS RHYTHM NORMAL ECG ? OTHER TESTS: Stress Test: Date: 01/01/2014, Results: FINDINGS:??Short, vertical and horizontal multiplanar SPECT imaging shows no radiographic evidence for fixed or reversible defect to suggest scar or ischemia. Wall motion is within normal limits. End-diastolic volume is 134 milliliters. End-systolic volume is 54 milliliters. Left ventricular Ejection fraction is calculated to be 60 %. TID:??0.85 Lab Value Units Date High Low HB 15.3 g/dL 06/08/2019 17.0 13.0 HCT 45.1 % 06/08/2019 51.0 39.0 WBC 4.37 k/uL 06/08/2019 11.00 3.70 PLT 104 k/uL 06/08/2019 400 150 NA No results within date range. K No results within date range. GLUC No results within date range. BUN No results within date range. CREAT No results within date range. PTSEC 11.0 sec 06/08/2019 13.0 9.7 INR 1.0 no uni* 06/08/2019 1.3 0.9 APTT 30.2 sec 06/08/2019 32.4 23.0 ALT No results within date range. AST No results within date range. TBILI No results within date range. TSH No results within date range. Lab Value Units Date High Low HCGQT No results within date range. UHCG No results within date range. HCG, BODY* No results within date range. ABORHD No results within date range. ABSCREEN No results within date range. HBA1C: No results found for: HBA1C) Patient accompanied by self Case Discussed with Dr. Ireland OPTIMIZATION STATUS: Patient optimization pending Labs [facility] and [facility] Addendum: T MONY S Brii Zaldivar RN ABO/RH(D) Date Value Ref Range Status 06/08/2019 A POSITIVE Final Antibody Screen Date Value Ref Range Status 06/08/2019 NEG Final SIGNATURE: Umer Winston DO PATIENT NAME: Spike Nielsen DATE: June 08, 2019 TIME: 3:07 PM PAGER/CONTACT #: Previous Version Normal [facility] GFRon 08-03-2018 GFR/1.73 sq M.predicted MDRD (S/P/Bld) [Vol rate/Area] mL/min/{1.73_m2} Normal [facility] Comment on above: Result Comment: To e stimate the GFR for Americans, multiply the result provided by 1.21. Population mean GFR = 99 ml/min/1.73 sq.m. for ages 40-49 yrs Five stages of CKD and GFR for each stage: Stage 1 GFR >=90 Stage 2 GFR 60-89 Stage 3 GFR 30-59 Stage 4 GFR 15-29 Stage 5 GFR <15 Performed By: #### G FR1 #### [place] [address] METABOLIC PANELon 08-03-2018 ALK PHOS 83 U/L Normal 24-126 [facility] Comment on above: Performed By: #### [id number] #### [facility] [place] [id number] ALT [Catalytic activity/Vol] 61 U/L High 4-50 [facility] [place] Comment on above: Performed By: #### [id number] #### [place] [address] AST [Catalytic activity/Vol] 33 U/L Normal 3-55 [facility] Comment on above: Performed By: #### 4 [id number] #### [place] [address] Calcium [Mass/Vol] 9.6 mg/dL Normal 8.4-10.4 [facility] [place] Comment on above: Performed By: #### 4 [id number] #### [place] [address] Glucose [Mass/Vol] 88 mg/dL Normal 65-100 [facility] [place] Comment on above: Performed By: #### 4 [id number] #### [place] [address] Urea nitrogen [Mass/Vol] 23 mg/dL Normal 8-26 [facility] Comment on above: Performed By: #### 4 [id number] #### [place] [address] Bilirubin Ql (U) 0.4 mg/dL Normal 0.2-1.6 [facility] Comment on above: Performed By: #### 4 [id number] #### [facility] [place] [id number] CO2 [Moles/Vol] 26 mmol/L Normal 22-30 [facility] Comment on above: Performed By: #### 4 [id number] #### [facility] [place] [id number] Creatinine [Mass/Vol] 0.90 mg/dL Normal 0.66-1.25 [facility] Comment on above: Performed By: #### 4 [id number] #### [place] [address] Protein [Mass/Vol] 6.9 g/dL Normal 6.3-8.2 [facility] Comment on above: Performed By: #### 4 [id number] #### [place] [address] Potassium [Moles/Vol] 4.3 mmol/L Normal 3.6-5.1 [facility] Comment on above: Performed By: #### 4 [id number] #### [place] [address] Sodium [Moles/Vol] 141 mmol/L Normal 135-147 [facility] Comment on above: Performed By: #### 4 [id number] #### [place] [address] Albumin [Mass/Vol] 4.3 g/dL Normal 3.5-5.0 [facility] Comment on above: Performed By: #### 4 [id number] #### [facility] [place] [address] Chloride [Moles/Vol] 106 mmol/L Normal 96-109 [facility] Comment on above: Performed By: #### 4 [id number] #### [facility] [place] [id number] Vital Signs Date Time Vital Sign Value Performing Clinician Baron iverson 01-20-2023 08:21-0400 Body height 180.3 cm Aj Crow MD Work Phone: [facility] 01-20-2023 08:21-0400 Body temperature 97.2 [degF] Aj Crow MD Work Phone: [facility] 01-20-2023 08:21-0400 Body weight 170.1 kg Aj Crow MD Work Phone: [facility] 01-20-2023 08:21-0400 Diastolic blood pressure 63 mm[Hg] jA Crow MD Work Phone: [facility] 01-20-2023 08:21-0400 Heart rate 62 /min Aj Crow MD Work Phone: [facility] 01-20-2023 08:21-0400 Systolic blood pressure 148 mm[Hg] Aj Crow MD Work Phone: [facility] Encounters Encounter Date Encounter Type Care Provider Facility Start: 08-18-2023 End: 08-19-2023 ambulatory Jhonny Hernandez Facility:[facility] Start: 07-14-2023 End: 07-15-2023 ambulatory PA Cassidy Hummel Facility:[facility] Start: 07-07-2023 End: 07-08-2023 ambulatory PA Cassidy Hummel Facility:[facility] Start: 07-06-2023 End: 07-07-2023 ambulatory PA Cassidy Hummel Facility:[facility] Start: 06-28-2023 End: 06-29-2023 ambulatory PA Cassidy Hummel Facility:[facility] Start: 06-16-2023 End: 06-16-2023 ambulatory Rneo MCCLURE Facility:[facility] Start: 06-03-2023 ambulatory Rashid Ruffin acility:[facility] Start: 04-14-2023 Telephone encounter Fadi Guevara General Surgery Start: 01-22-2023 ambulatory Antonio Puga RN [facility] Surgery Start: 01-22-2023 E-mail encounter fro m caregiver Antonio Puga RN [facility] Start: 01-21-2023 Telephone encounter Antonio Guevara General Surgery Comment on above: Frame Runner - Shawna greco (Enroll in BMI program) Start: 01-20-2023 End: 01-21-2023 ambulatory AJ CROW Facility:[facility] Start: 01-20-2023 End: 01-20-2023 Patient encounter procedure Aj Crow MD Work Phone: General Surgery Comment on above: Incisional hernia, w ithout obstruction or gangrene (Primary Dx) Start: 01-19-2023 End: 01-20-2023 ambulatory Unlisted Provider Facility:[facility] Start: 01-15-2023 End: 01-15-2023 Emergency department patient visit Kareem Sanchez Facility:[facility] Start: 01-04-2023 Orders Only Marika Tavares APRN.CNP Work Phone: General Surgery Comment on above: Incisional hernia, w ithout obstruction or gangrene (Primary Dx) Procedures Date Procedure Procedure Detail Performing Clinician Start: 02-22-2019 Lipid 1996 panel - S christiano or Plasma Fadi Roberson RN Plan of Treatment Date Care Activity Detail Author Start: 02-23-2024 Lipid 1996 panel - S christiano or Plasma Lipid Screening [facility] Start: 02-23-2024 LIPID SCREEN LIPID SCREEN [facility] Start: 09-14-2023 Urine microalbumin profile [facility] Start: 02-04-2023 Influenza vaccination C [facility] Start: 02-23-2020 ANNUAL PCP TEAM [employer]OW[employer] ME[employer]IC ELIANA DISEASE VISIT ANNUAL PCP TEAM CHRONIC DISEASE VISIT [facility] Start: 1996 BP CONTROLLED (<130/80) BP CON TROLLED (<130/80) [facility] Start: 1996 HEPATITIS C SCREENING HEPATITIS C SC GERA [facility] Start: 1996 HIV SCREENING HIV SCREENING [facility] Start: 1978 COVID-19 VACCINE (#1) COVID-19 VACCI NE (#1) [facility] Start: 1978 HEPATITIS B (1 of 3 - 3-dose series) HEPATITIS B (1 of 3 - 3-dose series) [facility] Start: 1978 Hepatitis B Vaccine (1 of 3 - 3-dose series) Hepatitis B Vaccine (1 of 3 - 3-dose series) [facility] End: 02-03-2024 Ct abdomen & pelvis w/o contrast material CT ABD/PEL WO IVCON Radiology Routine Incisional hernia, without obstruction or gangrene 1 Occurrences starting 01/04/2023 until 02/03/2024 [facility] Work Phone: Comment on above: 1 Occurrences starti ng 01/04/2023 until 02/03/[facility] Immunization Date Immunization Notes Care Provider Fa cility 03-06-2015 influenza, seasonal, injectable Marika Martinezo COVERAGE SPECIALIST RN.PROGRAM DIR Work Phone: [facility] Work Phone: 03-06-2015 influenza virus vaccine, unspecified formulation Fadi Robreson RN [facility] 09-13-2013 tetanus toxoid, redu dana diphtheria toxoid, and acellular pertussis vaccine, adsorbed Marikasiri Martinezo COVERAGE SPECIALIST RN.PROGRAM DIR Work Phone: [facility] Work Phone: Payers Date Payer Category Payer Self-pay 2022 Medicaid [id number] 2022 Medicaid [id number] 1980 Unknown [id number] 2.16.8 [id number] 1978 Unknown [id number] 2.16.8 [id number]. 1978 Unknown [id number] 2.16.8 [id number]. 1978 Unknown [id number] 2.16.8 [id number]. 1978 Unknown [id number] 2.16.8 40.1.702122.3.579.2. 1978 Unknown [id number] 2.16.8 40.1.807223.3.579.2. 1978 Unknown [id number] 2.16.8 [id number]. 1978 Unknown [id number] 2.16.8 40.1.047781.3.579.2. 1978 Unknown [id number] 2.16.8 [id number] 1978 Unknown [id number] 2.16.8 [id number] 1978 Unknown [id number] 2.16.8 [id number] 1978 Unknown [id number] 2.16.8 [id number] Unknown [id number] 2.16.8 [id number] Social History Date Type Detail Facility Start: 06-08-2019 End: 01-20-2023 Tobacco smoking status NHIS Ex-smoker [facility] End: 06-06-1982 History of tobacco use Current smoker [facility] End: 06-06-1982 History of tobacco use Cigarette Smoker [facility] Start: 06-08-2019 End: 01-20-2023 Cigarettes smoked current (pack per day) - Reported 0.1 [facility] Work Phone: Start: 06-08-2019 End: 01-20-2023 Tobacco use and exposure Smokeless tobacco non-user [facility] Start: 03-19-2021 End: 01-20-2023 Alcohol intake Lifetime non-drinker (finding) [facility] Start: 1980 Sex Assigned At Not on file [facility] Start: 06-19-2019 End: 01-20-2023 Gender identity Not on file [facility] Work Phone: How often to you hav e a drink containing alcohol? Never [facility] Work Phone: Average Number of Drinks Not on file [facility] Clinical Notes 01-15-2023 to 06-16-2023 Telephone Encounter - Fadi Roberson RN - 04/14/2023 5:12 PM ESTTelephone Encounter - Antonio Puga RN - 01/22/2023 10:57 AM EDTTelephone Encounter - Antonio Puga RN - 01/22/2023 10:54 AM EDT Note Date & Type Note Facility 06-16-2023 Note Patient Education Ma terials Follows: Abrasion An abrasion is a cut or a scrape on the surface of the skin. An abrasion does not go through all the layers of the skin. It is important to care for an abrasion properly to prevent infection. What are the causes? This condition is caused by rubbing your skin on something or falling on a surface, such as the ground. When your skin rubs on something, some layers of skin may rub off. What are the signs or symptoms? The main symptom of this condition is a cut or a scrape. The cut or scrape may be bleeding, or it may appear red or pink. If your abrasion was caused by a fall, there may be a bruise under your cut or scrape. How is this diagnosed? An abrasion is diagnosed with a physical exam. How is this treated? Treatment for this condition depends on how large and deep the abrasion is. In most cases: ? Your abrasion will be cleaned with water and mild soap. This is done to remove any dirt or debris (such as tiny bits of glass or rock) that may be stuck in your wound. ? An antibiotic ointment may be applied to your abrasion to help prevent infection. ? A bandage (dressing) may be placed on your abrasion to keep it clean. You may also need a tetanus shot. Follow these instructions at home: Medicines ? Take or apply wevk-wxa-xatuwmc and prescription medicines only as told by your health care provider. ? If you were prescribed an antibiotic medicine, use it as told by your health care provider. Do not stop using the antibiotic even if you start to feel better. Wound care ? Clean your wound 1 or 2 times a day, or as told by your health care provider. To do this: 1. Wash your hands for at least 20 seconds with mild soap and water. Do this before and after you clean your wound. 2. Wash your wound with mild soap and water and then rinse off the soap. 3. Pat your wound dry with a clean towel. Do not rub your wound. ? Keep your dressing clean and dry as told by your health care provider. ? There are many different ways to close and cover a wound. Follow instructions from your health care provider about caring for your wound and about changing and removing your dressing. You may have to change your dressing one or more times a day, or as directed by your health care provider. ? Check your wound every day for signs of infection. Check for: ? Redness, especially a red streak that spreads out from your wound. ? Swelling or increased pain. ? Warmth. ? Blood, fluid, pus, or a bad smell. Managing pain and swelling ? If directed, put ice on the injured area. To do this: ? Put ice in a plastic bag. ? Place a towel between your skin and the bag. ? Leave the ice on for 20 minutes, 2?3 times a day. ? Remove the ice if your skin turns bright red. This is very important. If you cannot feel pain, heat, or cold, you have a greater risk of damage to the area. ? If possible, raise (elevate) the injured area above the level of your heart while you are sitting or lying down. General instructions ? Do not take baths, swim, or use a hot tub until your health care provider approves. Ask your doctor about taking showers or sponge baths. ? Keep all follow-up visits. This is important. Contact a health care provider if: ? You received a tetanus shot, and you have swelling, severe pain, redness, or bleeding at your injection site. ? Your pain is not controlled with medicine. ? You have a fever. ? You have any of these signs of infection: ? Redness, swelling, or more pain around your wound. ? Warmth coming from your wound. ? Blood, fluid, pus, or a bad smell coming from your wound. Get help right away if: ? You have a red streak spreading away from your wound. Summary ? An abrasion is a cut or a scrape on the surface of the skin. Care for your abrasion properly to prevent infection. ? Clean your wound with mild soap and water 1 or 2 times a day or as often as told. Follow instructions from your health care provider about taking medicines and changing your bandage (dressing). ? Contact your health care provider if you have a fever or if you have redness, swelling, or more pain around your wound. ? Contact your health care provider if you have warmth, blood, fluid, pus, or a bad smell coming from your wound. ? Get help right away if there is a red streak spreading away from your wound. This information is not intended to replace advice given to you by your health care provider. Make sure you discuss any questions you have with your health care provider. Document Revised: 08/21/2020 Document Reviewed: 08/21/2020 Elsevier Patient Education ? 2022 [employer] [facility] 04-14-2023 Miscellaneous Notes Formattin g of this note might be different from the original. BMI SPECIALTY CARE COORDINATION TELEPHONE ENCOUNTER Pt mother is helping him. LVM with call back number documented in this encounter [facility] 01-22-2023 Miscellaneous Notes Formattin g of this note might be different from the original. Unable to send [employer] message- account not active documented in this encounter [facility] 01-22-2023 Miscellaneous Notes Formattin g of this note might be different from the original. BMI SPECIALTY CARE COORDINATION TELEPHONE ENCOUNTER 01/21/18: called and left message for pt to call office. Provided this RNs contact number. documented in this encounter [facility] 01-20-2023 Note HNO ID: [id number] Author: Aj Crow MD Service: ? Author Type: Physician Type: Progress Notes Filed: 01/20/2023 9:13 AM Note Text: Mr. Nielsen returns with a ventral hernia (previous primary repair during lap maureen). We need his CT scan which was done yesterday and I'm waiting for images to be sent over. We discussed medical vs surgical weight loss options but given his BMI of 52 and goal of 80lb weight loss I think he's more of a surgical weight loss candidate. I'm going to refer him to our bariatric program. Aj Crow MD I have seen and evaluated the patient and discussed the case with the resident physician. I agree with the assessment and plan as documented in the resident?s note. [facility] 01-20-2023 Note HNO ID: [id number] Author: Zahraa Stovall Service: ? Author Type: ? Type: Progress Notes Filed: 01/20/2023 9:13 AM Note Text: [facility] - HISTORY AND PHYSICAL Chief Complaint: recurrent paraumbilical hernia HPI: Spike Nielsen is a 42 year old male who presents with a recurrent paraumbilical hernia after primary repair during a lap maureen with Dr. Crow in 2019. He was last seen in 2020 about the recurrence and planned for follow-up after CT and 20-25 lbs weight loss. He has had significant difficulty and frustrations with weight loss since that visit, despite working an active job, frequent bike riding/walking, and portion control. Pain related to the hernia has worsened and frequently radiates to the entire L abdomen and flank. He also endorses daily nausea but no emesis. Relevant previous operations include: - lap maureen w/ IOC, primary repair of 2x2 umbilical hernia 06/2019 ([facility]) Anxiety Disorder Independent Light physical labor Moderate (once/week) BMI 52 N/A PAST MEDICAL HISTORY Diagnosis Date Bipolar disorder (HCC) Depression Hypertension No past surgical history on file. Social History Tobacco Use Smoking status: Former Packs/day: 0.10 Years: 3.00 Additional pack years: 0.00 Total pack years: 0.30 Types: Cigarettes Quit date: 1982 Years since quittin.6 Smokeless tobacco: Never Substance Use Topics Alcohol use: Never Drug use: Never Additional social history not relevant to the patient's HPI FAMILY HISTORY Adopted: Yes Additional family history not relevant to the patient's HPI ALLERGIES Allergen Reactions Wellbutrin [Bupropi* Rash Current Outpatient Medications Medication Sig Dispense Refill acetaminophen (TYLENOL) 325 mg tablet Take 2 tablets by mouth every 4 hours as needed (for pain.). doxepin capsule 50 mg Take 50 mg by mouth daily at bedtime. levomilnacipran ER (FETZIMA) 40 mg Take 40 mg by mouth once daily. famotidine/Ca carb/mag hydrox (ACID GREASE MAN COMPLETE, FAMOT, ORAL) Take 1 tablet by mouth twice daily. B Complex Vitamins capsule Take 1 capsule by mouth once daily. ei-mqr-avysg acid-lutein (CENTRUM SILVER) 400-250 mcg chew Take 1 tablet by mouth once daily. triamterene (DYRENIUM) 50 mg capsule Take 50 mg by mouth twice daily. ondansetron (ZOFRAN) 4 mg tablet Take 1 tablet by mouth every 8 hours as needed for Nausea/Vomiting. 30 tablet 0 clonazePAM (KLONOPIN) 1 mg tablet Take 1 mg by mouth twice daily as needed. traZODone (DESYREL) 100 mg tablet Take 150 mg by mouth daily at bedtime. ascorbic acid, vitamin C, (VITAMIN C) 500 mg tablet Take 500 mg by mouth once daily. cyanocobalamin (VITAMIN B-12) 1,000 mcg tab Take 1,000 mcg by mouth once daily. hydroCHLOROthiazide (HYDRODIURIL, ESIDRIX) 25 mg tablet Take 25 mg by mouth once daily. busPIRone (BUSPAR) 15 mg tablet Take 15 mg by mouth three times daily. febuxostat (ULORIC) 40 mg tab Take by mouth once daily. OXcarbazepine (TRILEPTAL) 300 mg tablet Take 300 mg by mouth twice daily. No current facility-administered medications for this visit. REVIEW OF SYSTEMS The remainder of the 12 review of systems is negative other than what was mentioned in the HPI and above. Ht 180.3 cm (5' 11 ) Wt (!) 170.1 kg (375 lb) BMI 52.30 kg/m? Physical findings of this patient are as follows (COMPLETE 10 INCLUDING HEART AND LUNG EXAM OR CHOOSE NORMAL EXAM IF APPROPRIATE): Physical Exam Physical Exam Constitutional: The patient is well-developed, well-nourished, and in no distress. Head: Normocephalic and atraumatic. Eyes: Pupils are equal, round, and reactive to light. EOM are normal. Neck: Normal range of motion. Neck supple. Cardiovascular: Regular rhythm and normal heart sounds. Pulmonary/Chest: Effort normal and breath sounds normal. Abdominal: Soft. Bowel sounds are normal. Musculoskeletal: Normal range of motion. Neurological: He is alert. GCS score is 15. Skin: Skin is warm and dry. Psychiatric: Affect and judgment normal. Relevant Hernia Findings - paraumbilical hernia L > R; nonreducible, mildly tender, no overlying skin changes LABS: Hemoglobin A1C (%) Date Value 06/08/[address] 01/19 - Per OSH report large fat-containing umbilical hernia however images not in system Assessment: Spike Nielsen is a 42 year old male who presents with a recurrent symptomatic umbilical hernia. He is interested in surgical repair, however continues to struggle with weight loss. Expressed interest in bariatric surgery for more definitive weight control. Plan: - Bariatric surgery referral - Follow-up recent CT - Counseled on returning to [facility] if acute worsening in pain and GI symptoms or if he develops overlying erythema Patient seen and discussed with Dr. Mignon Stovall, MS4 [facility] 01-20-2023 History of Presen t illness Narrative Mr. Nielsen returns with a ventral hernia (previous primary repair during lap maureen). We need his CT scan which was done yesterday and I'm waiting for images to be sent over. We discussed medical vs surgical weight loss options but given his BMI of 52 and goal of 80lb weight loss I think he's more of a surgical weight loss candidate. I'm going to refer him to our bariatric program. Aj Crow MD I have seen and evaluated the patient and discussed the case with the resident physician. I agree with the assessment and plan as documented in the resident s note. [facility] - HISTORY AND PHYSICAL Chief Complaint: recurrent paraumbilical hernia HPI: Spike Nielsen is a 42 year old male who presents with a recurrent paraumbilical hernia after primary repair during a lap maureen with Dr. Crow in 2019. He was last seen in 2020 about the recurrence and planned for follow-up after CT and 20-25 lbs weight loss. He has had significant difficulty and frustrations with weight loss since that visit, despite working an active job, frequent bike riding/walking, and portion control. Pain related to the hernia has worsened and frequently radiates to the entire L abdomen and flank. He also endorses daily nausea but no emesis. Relevant previous operations include: - lap maureen w/ IOC, primary repair of 2x2 umbilical hernia 06/2019 ([facility]) Anxiety Disorder Independent Light physical labor Moderate (once/week) BMI 52 N/A PAST MEDICAL HISTORY Diagnosis Date Bipolar disorder (HCC) Depression Hypertension No past surgical history on file. Social History Tobacco Use Smoking status: Former Packs/day: 0.10 Years: 3.00 Additional pack years: 0.00 Total pack years: 0.30 Types: Cigarettes Quit date: 1982 Years since quittin.6 Smokeless tobacco: Never Substance Use Topics Alcohol use: Never Drug use: Never Additional social history not relevant to the patient's HPI FAMILY HISTORY Adopted: Yes Additional family history not relevant to the patient's HPI ALLERGIES Allergen Reactions Wellbutrin [Bupropi* Rash Current Outpatient Medications Medication Sig Dispense Refill acetaminophen (TYLENOL) 325 mg tablet Take 2 tablets by mouth every 4 hours as needed (for pain.). doxepin capsule 50 mg Take 50 mg by mouth daily at bedtime. levomilnacipran ER (FETZIMA) 40 mg Take 40 mg by mouth once daily. famotidine/Ca carb/mag hydrox (ACID GREASE MAN COMPLETE, FAMOT, ORAL) Take 1 tablet by mouth twice daily. B Complex Vitamins capsule Take 1 capsule by mouth once daily. eo-bru-gibkw acid-lutein (CENTRUM SILVER) 400-250 mcg chew Take 1 tablet by mouth once daily. triamterene (DYRENIUM) 50 mg capsule Take 50 mg by mouth twice daily. ondansetron (ZOFRAN) 4 mg tablet Take 1 tablet by mouth every 8 hours as needed for Nausea/Vomiting. 30 tablet 0 clonazePAM (KLONOPIN) 1 mg tablet Take 1 mg by mouth twice daily as needed. traZODone (DESYREL) 100 mg tablet Take 150 mg by mouth daily at bedtime. ascorbic acid, vitamin C, (VITAMIN C) 500 mg tablet Take 500 mg by mouth once daily. cyanocobalamin (VITAMIN B-12) 1,000 mcg tab Take 1,000 mcg by mouth once daily. hydroCHLOROthiazide (HYDRODIURIL, ESIDRIX) 25 mg tablet Take 25 mg by mouth once daily. busPIRone (BUSPAR) 15 mg tablet Take 15 mg by mouth three times daily. febuxostat (ULORIC) 40 mg tab Take by mouth once daily. OXcarbazepine (TRILEPTAL) 300 mg tablet Take 300 mg by mouth twice daily. No current facility-administered medications for this visit. REVIEW OF SYSTEMS The remainder of the 12 review of systems is negative other than what was mentioned in the HPI and above. Ht 180.3 cm (5' 11 ) Wt (!) 170.1 kg (375 lb) BMI 52.30 kg/m Physical findings of this patient are as follows (COMPLETE 10 INCLUDING HEART AND LUNG EXAM OR CHOOSE NORMAL EXAM IF APPROPRIATE): Physical Exam Physical Exam Constitutional: The patient is well-developed, well-nourished, and in no distress. Head: Normocephalic and atraumatic. Eyes: Pupils are equal, round, and reactive to light. EOM are normal. Neck: Normal range of motion. Neck supple. Cardiovascular: Regular rhythm and normal heart sounds. Pulmonary/Chest: Effort normal and breath sounds normal. Abdominal: Soft. Bowel sounds are normal. Musculoskeletal: Normal range of motion. Neurological: He is alert. GCS score is 15. Skin: Skin is warm and dry. Psychiatric: Affect and judgment normal. Relevant Hernia Findings - paraumbilical hernia L > R; nonreducible, mildly tender, no overlying skin changes LABS: Hemoglobin A1C (%) Date Value 06/08/[address] 01/19 - Per OSH report large fat-containing umbilical hernia however images not in system Assessment: Spike Nielsen is a 42 year old male who presents with a recurrent symptomatic umbilical hernia. He is interested in surgical repair, however continues to struggle with weight loss. Expressed interest in bariatric surgery for more definitive weight control. Plan: - Bariatric surgery referral - Follow-up recent CT - Counseled on returning to [facility] if acute worsening in pain and GI symptoms or if he develops overlying erythema Patient seen and discussed with Dr. Mignon Stovall, MS4 documented in this encounter [facility] 01-20-2023 Nurse Note What is the reason for your visit today? consult Who is your referring physician? Dr. Crow Are you having poor oral intake? NO Have you had unintentional weight loss of 15 lbs/7 Kg in the last 3-6 months? NO Bowels: diarrhea Wound: clean & dry Temperature: No Drains: No documented in this encounter [facility] 01-15-2023 Note Education Materials Infectious Disease Cellulitis, Adult Cellulitis is a skin infection. The infected area is often warm, red, swollen, and sore. It occurs most often in the arms and lower legs. It is very important to get treated for this condition. What are the causes? This condition is caused by bacteria. The bacteria enter through a break in the skin, such as a cut, burn, insect bite, open sore, or crack. What increases the risk? This condition is more likely to occur in people who: ? Have a weak body defense system (immune system). ? Have open cuts, portillo, bites, or scrapes on the skin. ? Are older than 60 years of age. ? Have a blood sugar problem (diabetes). ? Have a long-lasting (chronic) liver disease (cirrhosis) or kidney disease. ? Are very overweight (obese). ? Have a skin problem, such as: ? Itchy rash (eczema). ? Slow movement of blood in the veins (venous stasis). ? Fluid buildup below the skin (edema). ? Have been treated with high-energy rays (radiation). ? Use IV drugs. What are the signs or symptoms? Symptoms of this condition include: ? Skin that is: ? Red. ? Streaking. ? Spotting. ? Swollen. ? Sore or painful when you touch it. ? Warm. ? A fever. ? Chills. ? Blisters. How is this diagnosed? This condition is diagnosed based on: ? Medical history. ? Physical exam. ? Blood tests. ? Imaging tests. How is this treated? Treatment for this condition may include: ? Medicines to treat infections or allergies. ? Home care, such as: ? Rest. ? Placing cold or warm cloths (compresses) on the skin. ? Hospital care, if the condition is very bad. Follow these instructions at home: Medicines ? Take rkjq-mmh-hbsnmrr and prescription medicines only as told by your doctor. ? If you were prescribed an antibiotic medicine, take it as told by your doctor. Do not stop taking it even if you start to feel better. General instructions ? Drink enough fluid to keep your pee (urine) pale yellow. ? Do not touch or rub the infected area. ? Raise (elevate) the infected area above the level of your heart while you are sitting or lying down. ? Place cold or warm cloths on the area as told by your doctor. ? Keep all follow-up visits as told by your doctor. This is important. Contact a doctor if: ? You have a fever. ? You do not start to get better after 1?2 days of treatment. ? Your bone or joint under the infected area starts to hurt after the skin has healed. ? Your infection comes back. This can happen in the same area or another area. ? You have a swollen bump in the area. ? You have new symptoms. ? You feel ill and have muscle aches and pains. Get help right away if: ? Your symptoms get worse. ? You feel very sleepy. ? You throw up (vomit) or have watery poop (diarrhea) for a long time. ? You see red streaks coming from the area. ? Your red area gets larger. ? Your red area turns dark in color. These symptoms may represent a serious problem that is an emergency. Do not wait to see if the symptoms will go away. Get medical help right away. Call your local emergency services (911 in the [place] Do not drive yourself to the hospital. Summary ? Cellulitis is a skin infection. The area is often warm, red, swollen, and sore. ? This condition is treated with medicines, rest, and cold and warm cloths. ? Take all medicines only as told by your doctor. ? Tell your doctor if symptoms do not start to get better after 1?2 days of treatment. This information is not intended to replace advice given to you by your health care provider. Make sure you discuss any questions you have with your health care provider. Document Revised: 03/04/2022 Document Reviewed: 03/04/2022 [employer] Patient Education ? 2022 [employer] Procedures How to Take Your Blood Pressure Blood pressure measures how strongly your blood is pressing against the johnson of your arteries. Arteries are blood vessels that carry blood from your heart throughout your body. You can take your blood pressure at home with a machine. You may need to check your blood pressure at home: ? To check if you have high blood pressure (hypertension). ? To check your blood pressure over time. ? To make sure your blood pressure medicine is working. Supplies needed: ? Blood pressure machine, or monitor. ? A chair to sit in. This should be a chair where you can sit upright with your back supported. Do not sit on a soft couch or an armchair. ? Table or desk. ? Small notebook. ? Pencil or pen. How to prepare Avoid these things for 30 minutes before checking your blood pressure: ? Having drinks with caffeine in them, such as coffee or tea. ? Drinking alcohol. ? Eating. ? Smoking. ? Exercising. Do these things five minutes before checking your blood pressure: ? Go to the bathroom and pee (urinate). ? Sit in a chair. ? Be (more content not included)... [facility] Evaluation note Diagnosis Incisional hernia, without obstruction or gangrene- Primary Incisional hernia without mention of obstruction or gangrene documented in this encounter [facility] Health SystemEvaluation note* Diagnosis Incisional hernia, without obstruction or gangrene- Primary Incisional hernia without mention of obstruction or gangrene documented in this encounter [facility] Summary Purpose Family History No Family History Records FoundNo Family History Records FoundNo Family History Records FoundNo Family History Records FoundNo Family History Records FoundNo Family History Records Found Advance Directives No Advanced Directives Records FoundDocuments on File Type Date Recorded 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 Advance Directive(s) 06/08/2019 4:15 PM Documents on File Type Date Recorded 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 Advance Directive(s) 06/08/2019 4:15 PM Reason for Referral Specialty Diagnoses / Procedures Referred By Elías maya Referred To Contact CT IMAGING Diagnoses Incisional hernia, without obstruction or gangrene Procedures CT ABD/PEL WO IVCON CT ABD & PELVIS W/O CONTRAST Marika Tavares, TIFFANY.PROGRAM DIR [address] [place] [id number] Imaging Referral ID Status Reason Start Date Expiration Date Visits Requested Visits Authorized [id number] Pending Review Auto-Generat ed Referral 01/04/2023 02/03/2024 1 1 Specialty Diagnoses / Procedures Referred By Elías maya Referred To Contact Diagnoses Incisional hernia, without obstruction or gangrene Procedures CONSULT [facility] OFFICE/OUTPATIENT [facility] 60-74 MINUTES Aj Crow MD [address] [place] [address] Referral ID Status Reason Start Date Expiration Date Visits Requested Visits Authorized [id number] Authorized PCP Requested Referral 01/20/2023 01/20/2024 1 1 Additional Source Comments (unrecognized sect ion and content) No Status Records FoundNo Status Records FoundNo Status Records FoundNo Status Records FoundNo Status Records FoundNo Status Records Found INFORMATION SOURCE (unrecogn ized section and content) DATE CREATED AUTHOR 04/26/[address] [facility] DATE CREATED AUTHOR AUTHOR'S ORGANIZ ATION 06/19/2019 [facility] DATE CREATED AUTHOR AUTHOR'S ORGANIZ ATION 08/02/2020 [facility] DATE CREATED AUTHOR AUTHOR'S ORGANIZ ATION 04/16/2023 [facility] DATE CREATED AUTHOR AUTHOR'S ORGANIZ ATION 08/20/2023 [facility] DATE CREATED AUTHOR AUTHOR'S ORGANIZ ATION 08/25/2023 [facility] Source Comments (unrecognize d section and content) In the event this informatio n is protected by the Federal Confidentiality of Alcohol and Drug Abuse Patient Records regulations: The Federal rules restrict any use of the information to criminally investigate or prosecute any alcohol or drug abuse patient.[facility] the event this information is protected by the Federal Confidentiality of Alcohol and Drug Abuse Patient Records regulations: The Federal rules restrict any use of the information to criminally investigate or prosecute any alcohol or drug abuse patient.[facility] System[facility] the event this information is protected by the Federal Confidentiality of Alcohol and Drug Abuse Patient Records regulations: The Federal rules restrict any use of the information to criminally investigate or prosecute any alcohol or drug abuse patient.[facility] System[facility] the event this information is protected by the Federal Confidentiality of Alcohol and Drug Abuse Patient Records regulations: The Federal rules restrict any use of the information to criminally investigate or prosecute any alcohol or drug abuse patient.[facility] System[facility] the event this information is protected by the Federal Confidentiality of Alcohol and Drug Abuse Patient Records regulations: The Federal rules restrict any use of the information to criminally investigate or prosecute any alcohol or drug abuse patient.[facility] Care Teams (unrecognized sec tion and content) Press Cleaner Relationship Specialty Start Date End Date Antoine Alcazar [address] [facility] [address] [place] [address] Referring General Surgery 02/07/19 Press Cleaner Relationship Specialty Start Date End Date Antoine Alcazar [address] [facility] [address] [place] [address] Referring General Surgery 02/07/19 Press Cleaner Relationship Specialty Start Date End Date Antoine Alcazar [address] [facility] [address] [place] [address] Referring General Surgery 02/07/19 Press Cleaner Relationship Specialty Start Date End Date Antoine Alcazar [address] [facility] [address] [place] [address] Referring General Surgery 02/07/19 Reason for Visit (unrecogniz ed section and content) Reason Comments Consult Reason Comments 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 This clinical summary was aggregated from multiple sources. Caution should be exercised in using it in the provision of clinical care. This summary normalizes information from multiple sources, and as a consequence, information in this document may materially change the coding, format and clinical context of patient data. In addition, data may be omitted in some cases. CLINICAL DECISIONS SHOULD BE BASED ON THE PRIMARY CLINICAL RECORDS. [facility] [employer] [facility]. provides no warranty or guarantee of the accuracy or completeness of information in this document.
[2023-08-31] MEDS: 0.9 % SODIUM CHLORIDE 500 ML, LIDOCAINE HCL 20 ML, SODIUM BICARBONATE 10 MEQ INJ (10:08)
[2023-08-31] MEDS: LIDOCAINE HCL 1% 100 MG/10 ML MDV INJ (10:08)
== END 2023-08-31 09:24 | disposition home or self-care (01) ==
LOC: VC 09:24
PROVIDERS: Visit Provider Radiology Diagnostic Radiology
DX: I83.813 Varicose veins of bilateral lower extremities with pain (principal)
CPT/HCPCS: 36478

== ENCOUNTER 2023-09-07 14:27 | Outpatient (OUT) | payer OTHER, SELFPAY ==
--- NOTE | 2023-09-07 14:28 | VEIN_ITS ---
Patient Name: DAVI MCCULLOUGH MR#: [id number] : 1980 Exam Date: 09/07/2023 Ordering Doctor: DR ISAÍAS WILLAMS M.D. RADIOLOGY REPORT PROCEDURE: VC EXT VENOUS RT LMTD COMPARISON: None. INDICATIONS: Phlebitis of superficial veins of right lower extremity I80.01 TECHNIQUE: Lower extremity ordaz scale and Duplex Doppler evaluation of the deep venous system from the inguinal ligament through the calf veins. FINDINGS: REGION: Right lower extremity. THROMBI: Negative for DVT. Heat induced thrombus in right GSV 2.2 cm from SFJ and extends to proximal calf. COMPRESSIBILITY: Non-compressible segments corresponding to thrombus FLOW: Areas of no flow corresponding to thrombus OTHER: Multiple varicose veins remain. CONCLUSION: 1. Successful post ablation occlusion of right great saphenous vein. Dictated by: John Duggan M.D. on 09/07/2023 at 15:13 Approved by: John Duggan M.D. on 09/07/2023 at 15:14
--- NOTE | 2023-09-07 14:28 | VEIN_ITS ---
Patient Name: DAVI MCCULLOUGH MR#: [id number] : 1980 Exam Date: 09/07/2023 Ordering Doctor: DR ISAÍAS WILLAMS M.D. RADIOLOGY REPORT PROCEDURE: [facility] FACILITY EST LMTD VEIN CENTER - OFFICE VISIT FOLLOW UP COMPARISON: None. PROGRESS NOTES: The patient reports improvement in leg symptoms. There has been interval reduction in varicosities. The patient has followed our recommendations to walk 20-30 minutes once or twice per day since the procedure. Physical exam demonstrates decrease in varicosities of the leg. Persistent varicosities are identified along the lower extremities bilaterally. Review of the ultrasound performed the same day demonstrates occlusive thrombus extending throughout the treated vein(s), see separate report, consistent with a successful ablation. No thrombus extending into or beyond the saphenofemoral junction. The patient expressed a desire to proceed with treatment of remaining incompetent varicosities. The patient was informed that treatment was a process and would require several procedures/sessions. VEIN/ Facility EST LMTD IMPRESSION: 1. Successful ablation of the right great saphenous vein(s). 2. Persistent varicose veins and lower extremity symptoms. PLAN: Endovenous laser ablation of left great saphenous vein. Nurse notes, history and physical were reviewed and confirmed, see attached forms. The nurse was present throughout the physical exam and consultation Dictated by: John Duggan M.D. on 09/07/2023 at 15:14 Approved by: John Duggan M.D. on 09/07/2023 at 15:15
== END 2023-09-07 14:28 | disposition home or self-care (01) ==
LOC: VC 14:27
PROVIDERS: PCP Radiology Diagnostic Radiology; Visit Provider Radiology Diagnostic Radiology
DX: I80.01 Phlebitis and thrombophlebitis of superficial vessels of right lower extremity (principal)
CPT/HCPCS: 93971; G0463

== ENCOUNTER 2023-09-21 10:15 | Outpatient (OUT) | payer OTHER, SELFPAY ==
[2023-09-21] MEDS: 0.9 % SODIUM CHLORIDE 500 ML, LIDOCAINE HCL 20 ML, SODIUM BICARBONATE 10 MEQ INJ (10:16)
--- NOTE | 2023-09-21 10:16 | VEIN_ITS ---
[address] [address] Patient Name: DAVI MCCULLOUGH MRN: [id number] date: 1980 Sex: M Assigned Patient Location: Current Patient Location: Accession/Order Number: [id number] Exam Date: 09/21/2023 10:20 Report Date: 09/21/2023 11:51 At the request of: ISAÍAS WILLAMS Procedure: VC Endovenous Ablation 1VeinLT EXAMINATION: VC Endovenous Ablation 1Vein left great saphenous vein HISTORY: I83.813 Pain due to varicose veins of bilateral legs COMPARISON: No relevant comparison available. TECHNIQUE: The risks and benefits of the procedure had been previously discussed, and were rediscussed at length. Informed written consent was obtained. Lucia Gupta and Alex Rankin assisted. Time out procedure was performed. The left lower extremity was prepared and draped in the usual sterile fashion to allow knee flexion in the sterile field. Duplex ultrasound probe was draped in a sterile cover, sterile transmission gel was used. Venous mapping was performed with the areas of dilation and large tributaries marked. The total length was 65 cm from the entry 8 cm above the medial malleolus to 3 cm below the saphenofemoral junction. The diameter of the greater saphenous vein ranged from 5-13 mm. A 30 gauge needle and 1% buffered lidocaine was used to anesthetize the entry site. A 4 mm incision was made with a scalpel and the saphenous vein was entered percutaneously under direct ultrasound guidance with a micropuncture set, a single stick was successful in gaining access. A micro-guide wire was inserted and the needle removed. A micro-set including a dilator was inserted over the microwire and the needle and dilator were removed. A 0.018 guide wire was inserted through the micro-set and threaded through the saphenous vein to the saphenofemoral junction. The dilator was removed and an introducer sheath was inserted over the wire until the end of the sheath entered the saphenofemoral junction. The dilator and wire were removed and the 600 micron fiber was introduced and placed and positioned so that it extended beyond the sheath and was 3 cm peripheral to the saphenofemoral femoral junction. Final position of the fiber was determined by ultrasound guidance and duplex imaging. Tumescent anesthetic was delivered by ultrasound guidance. 500 cc of fluid was delivered along the entire course of the saphenous vein. The solution consisted of 1000 cc of normal saline with 40 mL of 1% lidocaine and 20 mL of sodium bicarbonate. A final positioning check was made. The energy source was turned on by means of the foot pedal and the fiber and sheath were withdrawn. The total number of Joules delivered was 3327. The laser was active for 416 seconds under continuous pulse, average laser use of 8 J. Laser start time 11:19 AM 09/21/2023 . Laser stop time 11:20 AM 09/21/2023 . A duplex ultrasound revealed compressibility and flow at the saphenofemoral junction immediately after the procedure. Hemostasis at the access site was achieved. The skin incision of the saphenous vein was closed with a 4 x 4. A compression stocking was applied. Postop instructions were given. A follow up appointment was recommended and scheduled. The patient tolerated the procedure well and was discharged in good condition . VEIN/VC Endovenous Ablation 1VeinLT IMPRESSION: Technically successful endovenous laser ablation of the left great saphenous vein Electronically authenticated by: ISAÍAS WILLAMS Date: 09/21/2023 11:51
[2023-09-21] MEDS: LIDOCAINE HCL 1% 100 MG/10 ML MDV INJ (10:17)
== END 2023-09-21 10:16 | disposition home or self-care (01) ==
PROVIDERS: PCP Radiology Diagnostic Radiology; Visit Provider Radiology Diagnostic Radiology
DX: I83.813 Varicose veins of bilateral lower extremities with pain (principal)
CPT/HCPCS: 36478

== ENCOUNTER 2023-09-29 14:25 | Outpatient (OUT) | payer OTHER, SELFPAY ==
--- NOTE | 2023-09-29 14:26 | VEIN_ITS ---
Patient Name: DAVI MCCULLOUGH MR#: [id number] : 1980 Exam Date: 09/29/2023 Ordering Doctor: DR ISAÍAS WILLAMS M.D. RADIOLOGY REPORT PROCEDURE: VC EXT VENOUS LT LIMITED COMPARISON: None. INDICATIONS: Phlebitis of superficial veins of lt lower extremity I80.02 TECHNIQUE: Lower extremity ordaz scale and Duplex Doppler evaluation of the deep venous system from the inguinal ligament through the calf veins. FINDINGS: REGION: Left lower extremity. THROMBI: Negative for DVT. Heat induced thrombus visualized 2.4 cm from the SFJ. The heat induced thrombus extends from groin to distal calf. COMPRESSIBILITY: Non-compressible segments corresponding to thrombus FLOW: Areas of no flow corresponding to thrombus OTHER: Heat induced thrombus visualized 2.4 cm from the SFJ. The heat induced thrombus extends from groin to distal calf. CONCLUSION: 1. Successful post ablation occlusion of left great saphenous vein. Dictated by: John Duggan M.D. on 09/29/2023 at 15:45 Approved by: John Duggan M.D. on 09/29/2023 at 15:46
--- NOTE | 2023-09-29 14:26 | VEIN_ITS ---
Patient Name: DAVI MCCULLOUGH MR#: [id number] : 1980 Exam Date: 09/29/2023 Ordering Doctor: DR ISAÍAS WILLAMS M.D. RADIOLOGY REPORT PROCEDURE: [facility] EST LMTD VEIN CENTER - OFFICE VISIT FOLLOW UP COMPARISON: [facility] EST LMTD, 09/07/2023. PROGRESS NOTES: The patient reports improvement in leg symptoms. There has been interval reduction in varicosities. The patient has followed our recommendations to walk 20-30 minutes once or twice per day since the procedure. Physical exam demonstrates decrease in varicosities of the leg. Persistent varicosities are identified along the legs bilaterally. Review of the ultrasound performed the same day demonstrates occlusive thrombus extending throughout the treated vein(s), see separate report, consistent with a successful ablation. No thrombus extending into or beyond the saphenofemoral junction. The patient expressed a desire to proceed with treatment of remaining incompetent varicosities. The patient was informed that treatment was a process and would require several procedures/sessions. VEIN/[facility] EST LMTD IMPRESSION: 1. Successful ablation of the left great saphenous vein(s). 2. Persistent lower extremity varicose veins and lower extremity symptoms. PLAN: Endovenous laser ablation of right anterior accessory saphenous vein. Nurse notes, history and physical were reviewed and confirmed, see attached forms. The nurse was present throughout the physical exam and consultation Dictated by: John Duggan M.D. on 09/29/2023 at 15:46 Approved by: John Duggan M.D. on 09/29/2023 at 15:47
== END 2023-09-29 14:26 | disposition home or self-care (01) ==
LOC: VC 14:25
PROVIDERS: PCP Radiology Diagnostic Radiology; Visit Provider Radiology Diagnostic Radiology
DX: I80.02 Phlebitis and thrombophlebitis of superficial vessels of left lower extremity (principal)
CPT/HCPCS: 93971; G0463

== ENCOUNTER 2023-10-19 10:05 | Outpatient (OUT) | payer OTHER, SELFPAY ==
--- NOTE | 2023-10-19 10:11 | VEIN_ITS ---
[address] [address] Patient Name: DAVI MCCULLUOGH MRN: [id number] date: 1980 Sex: M Assigned Patient Location: Current Patient Location: Accession/Order Number: [id number] Exam Date: 10/19/2023 10:28 Report Date: 10/19/2023 12:04 At the request of: ISAÍAS WILLAMS Procedure: VC Endovenous Ablation 1VeinRT EXAMINATION: VC Endovenous Ablation 1Vein right anterior accessory saphenous vein HISTORY: Pain due to varicose veins of bilateral legs I83.813 COMPARISON: No relevant comparison available. TECHNIQUE: The risks and benefits of the procedure had been previously discussed, and were rediscussed at length. Informed written consent was obtained. Diana Gupta and Alex Rankin assisted. Time out procedure was performed. The right lower extremity was prepared and draped in the usual sterile fashion to allow knee flexion in the sterile field. Duplex ultrasound probe was draped in a sterile cover, sterile transmission gel was used. Venous mapping was performed with the areas of dilation and large tributaries marked. The total length was 18 cm from the entry mid thigh to 3 cm below the saphenofemoral junction. The diameter of the anterior accessory saphenous vein ranged from 4-7 mm. A 30 gauge needle and 1% buffered lidocaine was used to anesthetize the entry site. A 4 mm incision was made with a scalpel and the saphenous vein was entered percutaneously under direct ultrasound guidance with a micropuncture set, a single stick was successful in gaining access. A micro-guide wire was inserted and the needle removed. A micro-set including a dilator was inserted over the microwire and the needle and dilator were removed. A 0.018 guide wire was inserted through the micro-set and threaded through the saphenous vein to the saphenofemoral junction. The dilator was removed and an introducer sheath was inserted over the wire until the end of the sheath entered the saphenofemoral junction. The dilator and wire were removed and the 600 micron fiber was introduced and placed and positioned so that it extended beyond the sheath and was 3 cm peripheral to the saphenofemoral femoral junction. Final position of the fiber was determined by ultrasound guidance and duplex imaging. Tumescent anesthetic was delivered by ultrasound guidance. 125 cc of fluid was delivered along the entire course of the saphenous vein. The solution consisted of 1000 cc of normal saline with 40 mL of 1% lidocaine and 20 mL of sodium bicarbonate. A final positioning check was made. The energy source was turned on by means of the foot pedal and the fiber and sheath were withdrawn. The total number of Joules delivered was 767. The laser was active for 96seconds under continuous pulse, average laser use of 8 J. Laser start time 1121 AM 10/19/2023. Laser stop time 1122AM 10/19/2023. A duplex ultrasound revealed compressibility and flow at the saphenofemoral junction immediately after the procedure. Hemostasis at the access site was achieved. The skin incision of the saphenous vein was closed with a 4 x 4. A compression stocking was applied. Postop instructions were given. A follow up appointment was recommended and scheduled. The patient tolerated the procedure well and was discharged in good condition . VEIN/VC Endovenous Ablation 1VeinRT IMPRESSION: Technically successful endovenous laser ablation right anterior accessory saphenous vein Electronically authenticated by: ISAÍAS WILLAMS Date: 10/19/2023 12:04
[2023-10-19] MEDS: LIDOCAINE HCL 1% 100 MG/10 ML MDV INJ (10:29)
[2023-10-19] MEDS: 0.9 % SODIUM CHLORIDE 500 ML, LIDOCAINE HCL 20 ML, SODIUM BICARBONATE 10 MEQ INJ (10:29)
== END 2023-10-19 10:06 | disposition home or self-care (01) ==
LOC: VC 10:05
PROVIDERS: PCP Radiology Diagnostic Radiology; Visit Provider Radiology Diagnostic Radiology
DX: I83.813 Varicose veins of bilateral lower extremities with pain (principal)
CPT/HCPCS: 36478

== ENCOUNTER 2023-10-26 09:40 | Outpatient (OUT) | payer OTHER, SELFPAY ==
--- NOTE | 2023-10-26 09:42 | VEIN_ITS ---
Patient Name: DAVI MCCULLOUGH MR#: [id number] : 1980 Exam Date: 10/26/2023 Ordering Doctor: DR AUGUSTO MENSAH M.D. RADIOLOGY REPORT PROCEDURE: VC EXT VENOUS RT LMTD COMPARISON: VC EXT VENOUS RT LMTD, 09/07/2023. INDICATIONS: I80.01 Phlebitis of superficial veins of rt lower extremity TECHNIQUE: Lower extremity ordaz scale and Duplex Doppler evaluation of the deep venous system from the inguinal ligament through the calf veins. FINDINGS: REGION: Right lower extremity. THROMBI: Negative for DVT. Heat induced thrombus in right AASV 3.3 cm from SFJ and extends to mid thigh. COMPRESSIBILITY: Non-compressible segments corresponding to thrombus FLOW: Areas of no flow corresponding to thrombus CONCLUSION: Post ablation occlusion of the treated right anterior accessory saphenous vein with heat induced thrombus 3.3 cm from the saphenofemoral junction Dictated by: Augusto Mensah MD on 10/26/2023 at 10:05 Approved by: Augusto Mensah MD on 10/26/2023 at 10:05
--- NOTE | 2023-10-26 09:42 | VEIN_ITS ---
Patient Name: DAVI MCCULLOUGH MR#: [id number] : 1980 Exam Date: 10/26/2023 Ordering Doctor: DR AUGUSTO MENSAH M.D. RADIOLOGY REPORT PROCEDURE: FACILITY EST LMTD VEIN CENTER - OFFICE VISIT FOLLOW UP COMPARISON: [facility] EST LMTD, 09/29/2023. [facility] EST LMTD, 09/07/2023. PROGRESS NOTES: The patient reports some itching of his right thigh following intravenous laser ablation of the right anterior accessory saphenous vein. The patient otherwise has no complaints. The patient did wear his compression stocking as directed. The patient did not require oral analgesics. Physical exam demonstrates some mild erythema of the anterior and medial upper right thigh likely related to the silicone on the patient's compression stocking. The patient was advised to use cotton wrap around the leg in the future. The incision site is closed. The anterior accessory saphenous vein cannot be palpated, likely due to the patient's body habitus. Review of the ultrasound performed the same day demonstrates occlusive thrombus extending throughout the treated right anterior accessory saphenous vein with no deep vein thrombus. Heat induced thrombus is 3.3 cm from the saphenofemoral junction. The patient expressed a desire to proceed with treatment of incompetent left small saphenous vein. VEIN/[facility] EST LMTD IMPRESSION: 1. Successful ablation of the right anterior accessory saphenous vein(s). 2. Persistent incompetent left small saphenous vein. PLAN: Intravenous laser ablation left small saphenous vein Nurse notes, history and physical were reviewed and confirmed, see attached forms. The nurse was present throughout the physical exam and consultation Dictated by: Augusto Mensah MD on 10/26/2023 at 10:19 Approved by: Augusto Mensah MD on 10/26/2023 at 10:21
--- OUTSIDE RECORDS SUMMARY | 2023-10-26 09:44 | XMS_ITS | CCD ---
Author Organization [facility] Care Team Providers Care Pin Puller Name Role Phone Antoine Alcazar Unavailable [phone] SAM CROW Attending Unavailable Kastor TEXTILE ENGRAVER POLICE COMMANDING OFFICER-C, Mary Harris Admitting Unavai lable Kastor TEXTILE ENGRAVER POLICE COMMANDING OFFICER-C, Mary Harris Attending Iraidai kulwantle Kastor TEXTILE ENGRAVER POLICE COMMANDING OFFICER-C, Mary C Primary Care KAMI Moon Attending Unavailable KAMI Hummel Admitting Unavailable Kastor TEXTILE ENGRAVER POLICE COMMANDING OFFICER-C, Mary Harris Primary Care UnavaJhonny Morrow Attending Unavailable Jhonny Hernandez Admitting Unavailable Kastor TEXTILE ENGRAVER POLICE COMMANDING OFFICER-C, Mary C Primary Care Reno Soares Admitting Unavaila ble Reno Ogden Attending Unavaila ble Provider, None Primary Care Unavailable KAMI Hummel Attending Unavailable KAMI Hummel Admitting Unavailable Kastor TEXTILE ENGRAVER POLICE COMMANDING OFFICER-C, Mary C Primary Care KAMI Moon Attending Unavailable KAMI Hummel Admitting Unavailable Kastor TEXTILE ENGRAVER POLICE COMMANDING OFFICER-C, Mary C Primary Care KAMI Moon Admitting Unavailable Kastor TEXTILE ENGRAVER POLICE COMMANDING OFFICER-C, Mary C Primary Care KAMI Moon Attending Unavailable KAMI Hummel Attending Unavailable KAMI Hummel Admitting Unavailable Kastor TEXTILE ENGRAVER POLICE COMMANDING OFFICER-C, Mary C Primary Care Unavai labKareem Sims Admitting Unavailable Kareem Sanchez Attending Unavailable Provider, None Primary Care Unavailable Provider, Unlisted Primary Care Unavailable Marika Tavares CNP Admitting Marika Carroll CNP Attending KAMI Geller Admitting Unavailable KAMI Hummel Attending Unavailable Carlos FLOYD-C, Mary Harris Primary Care KAMI Moon Attending Unavailable KAMI Hummel Admitting Unavailable Carlos FLOYD-C, Mary Harris Primary Care KAMI Moon Admitting Unavailable Kastor TIFFANY FLOYD-C, Mary C Primary Care KAMI Moon Attending Unavailable Rashid Rojas Attending Unavailab Rashid Solomon Admitting Unavailab le [facility], PHYSICIAN Primary Care Unavailable Allergies Allergy Classification Reported Allergen(s) Allergy Type Date of Onset Reaction(s) Facility (6 sources) buPROPion; Translations: [BUPROPION HCL] Drug Allergy 10-25-2016 [facility] (1 source) buPROPion; Translations: [Wellbutrin] Drug Allergy [facility] Repository (1 source) buPROPion Drug Allergy 02-01-2019 [facility] Repository Medications Completed/Discontinued Medications Medication Drug Class(es) Dates Sig (Normalized) Sig (Original) acetaminophen 325 mg oral tablet (5 sources) Start: 06-22-19 20 take 2 tablets by mouth every four hours as needed acetaminophen (TYLENOL) 325 mg tablet Take 2 tablets by mouth every 4 hours as needed (for pain.). 0 06/22/2019 Active Comment on above: Take 2 tablets by mo uth every 4 hours as needed (for pain.). [...] on above: Take 1 capsule by mo uth once daily. busPIRone hydrochloride 15 mg oral [...] mL pen injector famotidine/Ca carb/mag hydrox (ACID PSYCHOLOGY CLINICIAN COMPLETE, FAMOT, ORAL) (5 sources) take 1 tablet by mouth twice daily famotidine/Ca carb/mag hydrox (ACID PSYCHOLOGY CLINICIAN COMPLETE, FAMOT, ORAL) Take 1 tablet by mouth twice daily. 0 Active Comment on above: Take 1 tablet by indra twice daily. febuxostat 40 mg oral tablet [...] on above: Take 10 mg by mouth. ke-jgl-mzsxb acid-lutein (CENTRUM SILVER) 400-250 mcg chew (5 sources) take 1 tablet by mouth once daily oc-iyr-guchp acid-lutein (CENTRUM SILVER) 400-250 mcg chew Take 1 tablet by mouth once daily. 0 Active Comment on above: Take 1 tablet by indra once daily. ondansetron 4 mg oral tablet (5 sources) Serotonin-3 Receptor Antagonist Start: 02-23-20 take 1 tablet by mouth every eight hours as needed for nausea ondansetron (ZOFRAN) 4 mg tablet Indications: Biliary colic Take 1 tablet by mouth every 8 hours as needed for Nausea/Vomiting. 30 tablet 0 02/22/2019 Active Comment on above: Take 1 tablet by indra every 8 hours as needed for Nausea/Vomiting. [...] on above: Take 1,000 mcg by mo [facility] once daily. Problems Active Problems Problem Classification [...] Value Interpretation Reference Range Facility Coding Summaryon 09-27-2023 Coding Summary HTMLBase 64 WdoymztiLKp4mCv+PGhlYWQ +SG7UGDNoW58ypWTotP4aE5 NMTElOSywgQVBQTElOSyIgb xGtSW4hiMNmQAWa IC8+SN7xIZJnXvqkyFTgu2M 3nGV4W98ldl9zZTpgcGM1DY NwLoCbcrret6ettOn4HLppR mluOyBt BTGdhC28JUV0kC41Rw19gWC bqYKum0umyFg0OxXyMZOjJH J5fBuvLSdny7JoLXVbG50bk ZRjz4V2 LJTnzEyplTIoQkWvdIK5eQ3 oDRhrrnzpi0gywaklPzw1fv 53nBBgt6M3yHD2X6ArlnK7O GJvbGQg YhpjnGHWsC0kpyhhm8fltqm vJcXtJCXaLTo8XMa8ZEQqgU bsRtBeLW70FIM3NUTyyuCfF 2FsLWFs iEzjHhM1w2K5Hw0XC0EVCuz kA1COXLFUBYmdnGT+PC90cj 63M3FhTrbyAxg4ZXPrVNY4x BH6rK5q QSPaAMnux2K3xGH7N6XdjzV cyg1em9lzSVSlTIpkR73snI Dgu5G7JDEccRI7ZGJvaEffR iBzaG93 Oyc+NMZjeDvxv2OzHtxpw6c oq3vxuJq5NklwEJUualOciV qsNTB5o9KaBt4mLXFeuJK2x GO0nT2t ZuGfMbD2ACyyJ943XhVemVV kXdnbL94jU0KbeEV+PHRyPj k8BHYybYizKT0iK9VvSIIdo mctbGVm sRwbWD3sWVZoeyujZNElyO6 uXGOzE6c4XzLoLtD9CQosT9 QzGOWcubnpId26zB7kTvAuI dU2IYzj S7FeqsV5AVXavRMaPKoxQCN 4T26dc3Y5WFTfGEIcZBN7yX Z0yR4vyPkbesfemMWztJtcl mVydGlj WEdbTTrmQ855JHYqmKsgBmO vZGluZyBEYXRlOiAgMDQvMj MvMjAyNDwvdGQ+DBOtMGB3m WxlPSAn kNAgEFabNw7rhHcyrQxcEX6 eRDZcmtkfONQynG1wWUNftX FpuKlxGT5iSTOzzymvi458E iAxMHB0 HHIrmFFcT8YgxI6dWfQhTYN mJKXyQ5PkuJVrZDsmX959TL fxGnJ7JLRssrFaG1OgPRPdc WduOiB0 m6K9Km3Wt1QyxkqpT1RhjLY hQsYtLynaPEq4Z3BeGfjfdV I+JL94LRLyPB41IFm8WAP6a WxlPSdi BGDlW4FhsH6jXnDvDXIxAOZ kOyc+PHRhYmxlIHdpZHRoPS qbWLZaAkRinHhzLG1uJu2qD GVyLWNv vRrhgRZwOkIsy5nmYLHrCWu kXL1zvLdlN5LrdLA1FMSco2 q0Za09U64iQ2YrrCY+PGNvb XK9xYA1 tL2rGuWiEnW7FHimX453YbI jpZDeJyibm8kkg4mzcTa5Go D4UYCbysKzvVhiGDC9y3PyP c39A08t IHdpZHRoPSIxNSUiIHZhbGl uhs0kcK8qQe5+JQRxkHG4hI A9dN2iDrQhLxI0CMenD008X nRvcCIv Pjmee4vdn4qzqHa2LvJvBCT hikBoeKtdXCM3j2ZwHp97D9 GslLjje2UhUzn6lg34iJIob 8M9qUH0 M3KtCDMpvvnehKCewPaiMU1 mDQKendykFPOhxG1dEMKbT6 e9NyEqCkI2GVsyT4VwzfK0I GJvbGQg COBmzSUDgR1lohwza6pojdy xYcImZCIaHGe1SEw5KBIzxI gcNqHaEDQ1EoO5KOH4oSIfc N8gxLvu nvsmbI9rJmv+HBY7gYEphSO HWF2gHcdmoAF+CCGlFAU9bS jrEWybWLHbmU5lHEQeV9w0Q iAwLjA1 UOtfS2FxnuK4PVAuxDTaTOO dqTUCbJ7dflabc8dpibwkRe LqBJHtJRo9JEh1LQMngKdiV iBsZWZ0 TfJ1YWL3vELkcL5wuAkqrls zbK9aIlp+GfxmkSihBGV4YM f2U7ToHzq7MRRydWnbMW9bz GFkZGlu Rv9hrTpnmFxpZO9uKORbmqq bi669GyMoo2yoLXGjoBWtRV bmHKU7T14gq6T9QKYpPXYuL HK7vUQ6 dZ9pvFsvdmikgRJauCvlgzW chGdxFIxyWBitI649SUBthB lsCfYxYAv5A3BnJwv5FKKgi KkuAU8p mWChRNnkVe3diJaaeJpiNV7 aTIXdmfgsm600AgOtk8zxMK BrpTOgEEaiFDY6V83yb9K8I CMwMDAw JZS7sXN2wB5kdRucxjjlsDB mdDsgdmVydGljYWwtYWxpZ2 75WFRdwKpbXsHnqZs1F7LuX jq9DBGm iMjtFR6kpPYxNTbjOn1qdUi bhQgmAD7uMIIadmuje090Ub Ehb1cpXWOswBZtQXbpKWT6F 73oc6U2 REIoNVDbRKW2oMQ6vV5ztEq nbjogbGVmdDsgdmVydGljYW jcNIhtF548RISpvCqsZvMsn GllbnQg WOijXTy3Y4XcZrhhiIM+PC9 8PKYsTL25sRRncRBrs1octE m3CkObBXZsZWU0nAcqDJrlv 3JkZXIt H12uxEKdt4N5DBXanGppmAQ nGkXbcUJ5eK5qUErhlouqa3 lrrjdcHxgvm4vigs63wM20I 29sIHdp ZHRoPSIzMCUiIHZhbGlnbj0 wcR9rKw0+JXVfgEA3rJH6fR 2eNGVfBzV8EOuhQ189JqVsl CIvPjxj u1kwd7wixNv6OkB8RLHnejN faPyrOXR7m1UqHf75V21fIS dpZHRoPSIyMCUiIHZhbGlnb b9bbR2r Ii8+KMYgdHD5rCW3vL4sKaA zKnH8MGpwQ425GcNrbXCrVp wkC24dS5MsoBE+MCTsZij4J CBzdHls MP1ihQLeNLidOw6tYHS6OwS gAxDjPAllO2RiSPOrwywnrs wznLF1TFYkIKCraI76Rm9vf DogMTBw oXXZgM0mycwyb2skzvcnHzQ yMKDeRUd5OKx2FVNglTovBl GwYDO8MiD9VGR5rKAasV6jj Glnbjog dH8tE7YfWEVbdfesZx11uD7 bRoHeSbU4JJwaTsl+U0FNUy wgQUxFWEFOREVSIExFRTwvd GQ+PHRk BAE9tSulBOnaTUDcxE2wCUW tK1m3JsRwQgB8LRxtW5ZhBO VstekxSi06jB4ePwFzBwD7C NwcY4Ek bdJ3KTVueEEvNCrgGJG9K96 ne9Y9GLElIUAlFGD5qQW8nY 1hbGlnbjogbGVmdDsgdmVyd GljYWwt SPpvR894FSRcgElxKfRkSwE 9GkH6Vae5D2IiXed5NFVttE ifZG3bmANyNSwzLf6bgHopt JkzHG7t WADvkuxnLPOurX7pWCZzsOS aiUnsGI0mCQMjixbyp318Uw BaTIT2NTJtyLGsB0MddR7iE iAjMDAw WCSkL8WpbQQeTWvmF014ZSo bUeH1ZROgfhKoX6FsCSUguG kqLtL0g0D0Ip39QWRTWJAfl zwvdGQ+ SXTxUDP1aYylUTabEQMitB9 kWHGiR5q4JnJqNvT4DXgxE7 OnBYSazceiPb87kS7ePuOcF yW2OAxx V8BxsnU6MGYpkOUqVDdoHMQ 7O05bf4C1SWIjAIUcDWC7uH A1hG5asHevqaotjKFsyDknt mVydGlj EUyzZFazJ345QTKzuRigAt0 MNHR2G8QkVdx8BBOaoCdxEF 6zhMKsKTuvAo2ryAhdsTltP S2bQYXs uavyQJXqgN0zWJDuuSDtmXw uYM9iZNFlseahs500WlAoNB O8TKBhiXZuK7TzuZ5qOwTsA DAwMDAw V9UmjXIxFHxkD106OXcwHwP 8ZDXznbZzN7DvSCComMjuQj D1z9U7Ub3GPWscvYL+PC90c k51E8Sa WeioHvs5PYMeQSA7pGI4lI5 nJODiCOklq3P6zQO3I8Blbl Cuvj4az8nyUNNvLIytG11kb CGxh5X0 CGVepYH3UGOmpKehSsRxvG7 3Oyc+IZXxyWkvj1WaEawdn5 lbo8ketVw1AsBmAHKcfuDaa WduPSJ0 e2MrQk44C76mPJukBFTmJWP lBAJpXKVpnYzjku9iaP4sJc 8+IJRvnTW7xPQ5hJ8rWhSkN fX6XSux U496TmHymWMnVtudr2ljj9a kwYi9RvLnSMZqbpBioXpyQU E6i2VdXk12A0OtgMunc9ZxU eg2mm21 sTZkz5Y4jGU2T4WhQQBkhmt meIZqaVxiQB4wSTZdfvwoDE JyyC9sRDVuF3g6JmWsAiF8U MmmJ1Md itF9QYXwyAFrGNOgjZZViF9 hbvxoi0jfbsneWhJiYQQrZD h6XJa4RAHcwUzvTqAkICT2J pT6ZMN6 zYMzrU1kdZtejoxxjA0wQdd +TLe2b5tayMMcIM1jrCL4OK 23IH98uLHqd9N1aKM9N0NoE GRpbmct nbudkCX7ZSQqQZPofU26Ob3 yxYrwIf8cLNAiNXR8YMDtfY MiW2BhnI6rQgNzCMDkWQIyF 3RleHQt FLmoO399EJnpXtX5TIBgpoS bQ0FtOZQlwCocWbU7e8R5Js 5LUV54DL10LJ53gPUzk5H3n TA1D8Xy UUJlptrqnnwwwHW5OYYqHUN vqT71Bz6nmKtjLt3lXVTiIJ C3FKGeoEJnT6BfbH5xVnEuA DAwMDAw V9NvnDIbTOcxU318HSeaTvO 2VMUxloRwM0XpPJSasTenIn U7c6T3Pb6MFc65ZM20PD90e BIps6Z1 qEG4P3CsUUZetakzasgcrWW 8ZVQmFFGspL45Mt7wmVbiVz 6aRGQwIJR0ZMZjjKRwU8Wpg R2nKcWp YCXlEXFkP0AsuBDeQMizC37 5MBxpZpP6VJKyzmOwW1BoGX TslGamWdB0y8A0Mf7RBQbxj zz5Q8Jm PjwvdHI+NW33JCLpKI61xWZ ufTAwi1lnmAw7QvCpEEIqTT F5mRkyEFtjg2SfENCuF94jv LKcm5O6 IGN (more content not included)... Normal [facility] ED Clinical Summaryon 2023 ED Clinical Summary [facility] ? Urgent Care [address] [place], [place] [id number] Clinical Summary PERSON INFORMATION Name: SPIKE NIELSEN Age: 43 Years Sex: MALE : 1980 MRN: Acct#: Visit Reason: Sinus Pain/Congestion; Body aches; SINUS PRESSURE/DRIANAGE, BODY ACHES, ABD PAIN, CONGESTION Arrival: 09/14/2023 11:11:56 Discharge: 09/14/2023 11:45:00 LOS: 000 00:34 Check In: 09/14/2023 11:11:56 Checkout: 09/14/2023 11:45:00 Address: [address] [facility] [address] PCP: Mary Perla APRN PROVIDER INFORMATION Provider Role Assigned Unassigned Marika Oliva COMMUNITY SERVICES OFFICER Nurse 09/14/2023 11:13:30 Brennen Ferro PA-C ED PA 09/14/2023 11:29:53 VITALS INFORMATION Vital Sign Triage Latest Temperature Tympanic Temperature Temporal Artery Pulse Rate O2 Sat 94 % 94 % Respiratory Rate Blood Pressure /72 mmHg /72 mmHg MEDICAL INFORMATION Medications Given: Allergy Information: Wellbutrin PHYSICIAN DOCUMENTATION DISCHARGE INFORMATION: Discharge Disposition: Home Discharge Location: Home PATIENT EDUCATION INFORMATION Instructions: Influenza, Adult, Gdhc-hj-Gvnv Follow-Up: With: Address: When: [place] [address] [facility] (1) Within 5 to 7 days DIAGNOSIS: Influenza A Patient Understands: Yes - Patient/family/caregive r verbalizes understanding of instructions given Comment: Normal [facility] ED Patient Summaryon 024 ED Patient Summary [facility] ? Urgent Care [address] [place], [place] [id number] PATIENT DISCHARGE INSTRUCTIONS Patient Information Name: SPIKE NIELSEN Age: 43 Years Date of : 1980 Reason For Visit: Sinus Pain/Congestion; Body aches; SINUS PRESSURE/DRIANAGE, BODY ACHES, ABD PAIN, CONGESTION Arrival Time: 09/14/2023 11:11:56 Primary Care Physician: Mary Perla APRN Attending Physician: Cassidy Hummel PA-C Comment: Patient Education With: Address: When: Mary Gonzalez [address] [place], [place] [id number] [facility] (1) Within 5 to 7 days Influenza, Adult Influenza is also called the flu. It is an infection in the lungs, nose, and throat (respiratory tract). It spreads easily from person to person (is contagious). The flu causes symptoms that are like a cold, along with high fever and body aches. What are the causes? This condition is caused by the influenza virus. You can get the virus by: ? Breathing in droplets that are in the air after a person infected with the flu coughed or sneezed. ? Touching something that has the virus on it and then touching your mouth, nose, or eyes. What increases the risk? Certain things may make you more likely to get the flu. These include: ? Not washing your hands often. ? Having close contact with many people during cold and flu season. ? Touching your mouth, eyes, or nose without first washing your hands. ? Not getting a flu shot every year. You may have a higher risk for the flu, and serious problems, such as a lung infection (pneumonia), if you: ? Are older than 65. ? Are . ? Have a weakened disease-fighting system (immune system) because of a disease or because you are taking certain medicines. ? Have a long-term (chronic) condition, such as: ? Heart, kidney, or lung disease. ? Diabetes. ? Asthma. ? Have a liver disorder. ? Are very overweight (morbidly obese). ? Have anemia. What are the signs or symptoms? Symptoms usually begin suddenly and last 4?14 days. They may include: ? Fever and chills. ? Headaches, body aches, or muscle aches. ? Sore throat. ? Cough. ? Runny or stuffy (congested) nose. ? Feeling discomfort in your chest. ? Not wanting to eat as much as normal. ? Feeling weak or tired. ? Feeling dizzy. ? Feeling sick to your stomach or throwing up. How is this treated? If the flu is found early, you can be treated with antiviral medicine. This can help to reduce how bad the illness is and how long it lasts. This may be given by mouth or through an IV tube. Taking care of yourself at home can help your symptoms get better. Your doctor may want you to: ? Take wzmm-qgo-huggpme medicines. ? Drink plenty of fluids. The flu often goes away on its own. If you have very bad symptoms or other problems, you may be treated in a hospital. Follow these instructions at home: Activity ? Rest as needed. Get plenty of sleep. ? Stay home from work or school as told by your doctor. ? Do not leave home until you do not have a fever for 24 hours without taking medicine. ? Leave home only to go to your doctor. Eating and drinking ? Take an ORS (oral rehydration solution). This is a drink that is sold at pharmacies and stores. ? Drink enough fluid to keep your pee pale yellow. ? Drink clear fluids in small amounts as you are able. Clear fluids include: ? Water. ? Ice chips. ? Fruit juice mixed with water. ? Low-calorie sports drinks. ? Eat bland foods that are easy to digest. Eat small amounts as you are able. These foods include: ? Bananas. ? Applesauce. ? Rice. ? Lean meats. ? [place]. ? Crackers. ? Do not eat or drink: ? Fluids that have a lot of sugar or caffeine. ? Alcohol. ? Spicy or fatty foods. General instructions ? Take ryeo-vix-wxpycgy and prescription medicines only as told by your doctor. ? Use a cool mist humidifier to add moisture to the air in your home. This can make it easier for you to breathe. ? When using a cool mist humidifier, clean it daily. Empty water and replace with clean water. ? Cover your mouth and nose when you cough or sneeze. ? Wash your hands with soap and water often and for at least 20 seconds. This is also important after you cough or sneeze. If you cannot use soap and water, use alcohol-based hand bilingual middle school teacher. ? Keep all follow-up visits. How is this prevented? ? Get a flu shot every year. You may get the flu shot in late summer, fall, or winter. Ask your doctor when you should get your flu shot. ? Avoid contact with people who are sick during fall and winter. This is cold and flu season. Contact a doctor if: ? You get new symptoms. ? You have: ? Chest pain. ? Watery poop (diarrhea). ? A fever. ? Your cough gets worse. ? You start to have mo (more content not included)... Normal [facility] POCT Rapid CoV-2 (COVID-19) Antigen/ Flu A&Bon 09-14-2023 Influenza A POCT Positive Abnormal Negative [facility] Comment on above: Performed By: #### [id number] ####[facility] (DEFAULT)[address] [place] [address] Influenza B POCT Negative Normal Negative [facility] Comment on above: Performed By: #### [id number] ####[facility] (DEFAULT)[address] [place] [address] SARS-CoV-2 (COVID-19) RNA IZABELLA+probe Ql (Unsp spec) Not detected Normal [facility] Comment on above: Performed By: #### [id number] ####[facility] (DEFAULT)[address] [place] [address] Urgent Care Note- Provideron 09-14-2023 Urgent Care Note- Provider Patient: SPIKE NIELSEN Age: 43 years Sex: MALE : 1980 Associated Diagnoses: Influenza A Author: Brennen Ferro PA-C Basic Information Additional information: Chief Complaint from Nursing Triage Note : Chief Complaint 09/14/2023 11:22 EDT Chief Complaint sinus pressure, body aches nausea cough. 3 days. . History of Present Illness This is a 43 year old here today with concerns of 3 days of cough and congestion. No fevers, chills or malaise. No headache, neck pain or stiffness. No ear pain, + sinus congestion and stuffy nose, no sore throat. No chest pains or SOB. + cough. No nausea, vomiting or diarrhea. No skin rashes or lesions. No known sick contacts. There are no other associated symptoms. Nothing makes the symptoms better or worse. Symptoms are described as gradual onset, moderate in nature and persisting. Health Status Allergies: Allergic Reactions (Selected) Severity Not Documented Wellbutrin- No reactions were documented.. Medications: (Selected) Documented Medications Documented Trulicity Pen 0.75 mg/0.5 mL subcutaneous solution: 0.75 mg, Subcutaneous, qWeek, INJECT 0.75MG SUBCUTANEOUSLY ONCE WEEKLY Vitamin B Complex oral capsule: 1 cap(s), PO, Daily, 0 Refill(s) anastrozole 1 mg oral tablet: 1 mg = 1 tab(s), Oral, Daily, 30 tab(s), 0 Refill(s) busPIRone 15 mg oral tablet: 15 mg = 1 tab(s), PO, BID, 0 Refill(s) febuxostat 40 mg oral tablet: 40 mg = 1 tab(s), PO, Daily, 0 Refill(s) ferrous sulfate 325 mg Tab: 325 mg, PO, Daily, 0 Refill(s) fluticasone 50 mcg/inh nasal spray: INSTILL TWO (2) SPRAYS INTRANASALLY EVERY DAY hydrochlorothiazide-los manuel 12.5 mg-100 mg oral tablet: 1 tab(s), Oral, Daily, 30 tab(s), 0 Refill(s) melatonin 5 mg oral tablet: 5 mg = 1 tab(s), PO, Once a day (at bedtime), PRN: for insomnia, 0 Refill(s) omeprazole 20 mg oral delayed release capsule: 20 mg = 1 cap(s), Oral, BID, TAKE 1 CAPSULE BY MOUTH TWICE DAILY traZODone 100 mg oral tablet: 200 mg = 2 tab(s), PO, Once a day (at bedtime), 0 Refill(s). Past Medical/ Family/ Social History Medical history: No active or resolved past medical history items have been selected or recorded.. Surgical history: No active procedure history items have been selected or recorded.. Family history: Thyroid Other Relationship Diabetes.... Brother . Social history: Social & Psychosocial Habits Alcohol 09/14/2023 Alcohol Use: Never 09/14/2023 Alcohol Use: Current Frequency: 1-2 times per year Other Comment: POB: [place] - 02/26/2019 15:28 - Carmen Jama Substance Use 06/26/2022 Substance use: Never 09/14/2023 Substance use: Never Tobacco 02/26/2019 Smoking tobacco use: Former smoker, quit more Comment: 1 ppd every 2 months - 02/26/2019 15:27 - Carmen Jama 09/14/2023 Smoking tobacco use: Former tobacco user Electronic Cigarette/Vaping 09/14/2023 Electronic Cigarette Use: Never . Problem list: Active Problems (3) Hypercholesteremia Hypertension Thrombocytopenia . Physical Examination Vital Signs Vital Signs 09/14/2023 11:22 EDT Temperature Temporal 36.7 DegC Peripheral Pulse Rate 65 bpm Respiratory Rate 20 br/min Systolic Blood Pressure 113 mmHg Diastolic Blood Pressure 72 mmHg SpO2 94 % Oxygen Therapy Room air BP Method Automatic . Measurements 09/14/2023 11:22 EDT Height 180.34 cm Weight 174.18 kg Weight Dosing 174.180 kg Body Mass Index Measured 53.56 kg/m2 BSA Measured 2.95 m2 . GENERAL: Awake, alert and oriented to person, place and situation. Well nourished, well developed, non toxic, NAD. EYES: Pupils equal, round and react to light. EOMI. ENMT: Ears: TM's and external canals with normal inspection bilaterally. Nose: clear rhinorrhea. Purple turbinates. Mouth: oral mucosa is pink and still moist. Throat: normal inspection. NECK: Normal range of motion, no meningismus, trachea is midline. No anterior or posterior lymphadenopathy. CARDIOVASCULAR: Regular rate and rhythm. +S1 +S2. No murmurs or rubs. RESPIRATORY: Dry cough, clear to auscultation bilaterally without rales, rhonchi or wheeze. SKIN: Normal inspection, no visualized rash. Medical Decision Making Results review: Lab results : Lab Flowsheet 09/14/2023 11:46 EDT SARS-CoV-2 (COVID-19) Ag (BD Veritor) Not Detected Influenza A POCT Positive Influenza B POCT Negative . Pt with three days of mild URI symptoms. Work excuse given. Home to rest, Tylenol/Motrin as needed, push fluids, Tessalon perles and/or Zyrtec as needed. Return with new, or worsening symptoms, or symptoms failing to improve as expected and the patient voiced their understanding. Questions answered. Follow-up with their family doctor as directed, return here sooner as needed. Impression and Plan Diagnosis Influenza A ([id number] J10.1, Discharge, Medical) Plan Condition: Stable. Disposition: Discharged: Time 09/14/2023 11:52:00, to home. Prescriptions: Launch prescriptions Pharm (more content not included)... Normal [facility] Urgent Care [place] 024 Urgent Care Record [facility] ? Urgent Care [address] [place] [address] PATIENT DISCHARGE INSTRUCTIONS Patient Information Name: SPIKE NIELSEN Age: 43 Years Date of : 1980 Reason For Visit: Sinus Pain/Congestion; Body aches; SINUS PRESSURE/DRIANAGE, BODY ACHES, ABD PAIN, CONGESTION Arrival Time: 09/14/2023 11:11:56 Primary Care Physician: Mary Perla APRN Attending Physician: Cassidy Hummel PA-C Comment: Visit Diagnosis: Diagnoses This Visit Body aches ([id number]) Influenza A (J10.1) Sinus Pain/Congestion ([id number]) If you received any narcotics, sedation, or [...] sign any legal documents With: Address: When: Mary Gonzalez [address] [place], [place] [id number] Business (1) Within 5 to 7 days Medication Information: The exam and treatment you received today in the [facility] were for an urgent problem and are not intended as complete care. It is important for you to follow up with a doctor, nurse practitioner, or physician?s marketing communications assistant for ongoing care. If your symptoms [...] so we can reach you if necessary. [facility] has provided you with a complete list of medications post discharge. Please inform your audio visual aide/provider of your visit and for further instruction on these medications. Any specific questions regarding your chronic medications and dosages should be discussed with your primary care physician(s) and/or pharmacist. New Medications [id number], [address], [place] [id number], [phone] benzonatate (benzonatate 200 mg oral capsule) 1 cap(s) Oral (given by mouth) 3 times a day (scheduled) as needed as needed for cough for 7 Days. Refills: 0. cetirizine (ZyrTEC 10 mg oral tablet) 1 tab(s) Oral (given by mouth) every day as needed for allergy symptoms for 10 Days. Refills: 0. Medications to Continue That Have Not Changed Other Medications anastrozole (anastrozole 1 mg oral tablet) 1 tab(s) Oral (given by mouth) every day. busPIRone (busPIRone 15 mg oral tablet) 1 [...] Milligram Oral (given by mouth) every day. fluticasone nasal (fluticasone 50 mcg/inh nasal spray) INSTILL TWO (2) SPRAYS INTRANASALLY EVERY DAY. hydrochlorothiazide-los manuel (hydrochlorothiazide-lo sartan 12.5 mg-100 mg oral tablet) 1 tab(s) Oral (given by mouth) every day. melatonin [...] this Visit (last charted value for your 09/14/2023 visit) Vital Signs This Visit Temperature Temporal: 36.7 DegC Peripheral Pulse Rate: 65 bpm Respiratory Rate: 20 br/min Systolic Blood Pressure: 113 mmHg Diastolic Blood Pressure: 72 mmHg SpO2: 94 % Oxygen Therapy: Room air Blood Pressure Method: Automatic Measurements This Visit Height/Length Measured: 180.34 cm Weight Measured: 174.18 kg Weight Dosin.180 kg Body M (more content not included)... [facility] Coding Summaryon 08-24-2023 Coding Summary HTMLBase 64 PwkelscxLMz9zXj+PGhlYWQ +HQ1HQORgD83hhGPdsK4wR7 NMTElOSywgQVBQTElOSyIgb dNzBU3gkUXnBXPt IC8+DQ5vCZXqCmqjpBSbb7P 8pJT2K14tbi0mVToxhDQ4ZG YuBtBapbhfq5eyrCb0VDldX mluOyBt NEUclK37NGF8zH96Iw50yZK gsAQwz0ndnCu6TtKtGBYyOZ W2iFefWHpor8VpNMNwG81xe KYjh0E8 EFRosPkzhRUrQyJcdFI2yX3 dAFhbqxsnq7udmporRtd1vi 30zHVyr6M2wZQ6R8AmevT3V GJvbGQg ZjmcbUXJqJ2xthcsa1coxbs kTiAhRHSnMWw2EUe7HGCukP deFyWsQK62LID4WYKwiwOvE 2FsLWFs jJzxBhY9o0H1Jh0YF4HNJrv gU1FITTOHKYbgqVW+PC90cj 33J6QhNnbeQpw4GUWfBAQ8g YO9dV3t FMZvXZqko2F9wLS0S7CzkhK fyi5kg5gwSLIwKLxmD67rdE Khx9R5GPDyxJP1OTBwnAjkQ iBzaG93 Oyc+GAYfsRmug4ZmHzmcx9i uc9fkbSc4MddwEMEhcfPdhI zbXYH8p1UfEt4pFTTpiJE6x KN6lU2k BaLhWhN2MJrmV767HcCepWA cFommK38vL3MtfCT+PHRyPj k6GTIyeYxtUU2iJ1YiJPYyc mctbGVm gZnmIU3qOFRclznmUJLakL9 cPKYxS0s9RfPgUcB8UCurA1 AiGTKjmrqxYq20jX3sQqKsV mD8PNsx L5ZlukF7YQWffICxIHpkRBQ 6U06ng5W0FWKzEYUgBGH2xZ L5wZ7ijChnueniaUOjiHwjr mVydGlj CKexFAaeA210CXNxiEzzBhJ vZGluZyBEYXRlOiAgMDMvMj AvMjAyNDwvdGQ+RJAaPFC6k WxlPSAn bMZxOAbeUt2cdLoynAwhDT9 xVTAdofxpQYCnsS3bURYuaF JklHteZO1fWILjrkuxz064C iAxMHB0 UDRtaGQwP4DqnB6dCwChDBX uDUUzB2MyuTScOYvuH755AY fyZaM9VFPxvpUcN6SyTJKmp WduOiB0 y4E1Lu5Ot7LfjbgpO5EdxJA jPmTuKathSKd4A1ZwUxrbaB I+LY88QPEgNS15NPr0WFG8b WxlPSdi ZQSxU4QgsB8dZzRdVLOwAEK kOyc+PHRhYmxlIHdpZHRoPS tlOSGkSeUcfXhgUG8zHe5zF GVyLWNv mMliwZAfGcVob5bsFRVkRYj wBD7whYqhR5YyvEU5NXAse0 c3Oe14R72tV5GigPI+PGNvb NC2dNO9 aE8jHnEvLxH1OHzfC384ZqP dbQGfQvchj2gwb4ylkFg9Ou W0QXPcgpIpwFdbQLD4w1BdJ e19B95i IHdpZHRoPSIxNSUiIHZhbGl wjw1ypX9cSe3+NNUflUU1jX S6tM9jEmItJnH4TAadK046X nRvcCIv Xgyue3zqv3bhjSi2ZfYbLNO uwxVesDblCWQ6e9XfUm20U2 JmqEqej4ApSxx5js54kJZzx 2F0mWU6 Q7HdRJAhgiirkIJquJceDG7 jPVYnsuseINMjqA7gHJPuL5 s0PtSmPzK4CRfdJ1DhraE8E GJvbGQg TJRfeWIGdD9pzgwqt8bpufc gFqXrUTBwMWp3ZEl7GUEnsG wyIdYoLRY6NeD4RKU2fWQzx Q4rmSev dgihbA7pVsn+CAK0uURhdUY CNF0xVktqaLE+LTGeCOF8mW tqHHkhWJLuhN9tHBDfA5p6V iAwLjA1 SBzzQ2DgatY3WDIxzBQmLWW hrKNCuL4mfobww0rfuituQu FeRCQmNLh0NOm2GNBaeTdzZ iBsZWZ0 UrV5WYU2tORcqC9lvPzshdm hsF1wYss+EvvxsFsmKHF7FT c3L9UjGif7PXZavXjjLO8zd GFkZGlu Bl1fmLwzwDjfWG9sPREuytd ay045MiWvv6dkDSUpfTEbUK ozUOF6F91hb4N6VSKyJDObC UR7gBK1 qQ9fwYojlyluiMKvaHdcrzJ ijSgvSEzeBGyvL521CVExgU oaCqScDPi2R7BeNba7OSIaz CeyPW3r nIRaLCucVc8hgEosmYshYB2 kRXXigegaw621XiJib8miFO OytSOvBKmaKVC0H76yc9L6G CMwMDAw ZEC5rWP2kM7riMpkodnjfMD mdDsgdmVydGljYWwtYWxpZ2 13BZCluAagJsSfiIx1R2LlJ kt4KTMx uBpzNY1nnPHwIPqgMx1xjAn gdGpsQZ9kQDIuuersa467Ig Cmw5nePORqyUNpKSczRXG6C 05ko5R3 SYYnWNOdDWQ8xVR7tB3tmEv nbjogbGVmdDsgdmVydGljYW zyUFphK519RDIgyQfqLgQes GllbnQg BChpZGj3O6OzFexluSB+PC9 2CKGdNC56lGOvfYZrx1qbzO k2JnRnYDWgLJQ2hQaoHMtac 3JkZXIt F40wfQOqa8S1NSYeuAkruRT oShTigFV1jT6oZAssefwsp2 hokvlcYoqkq4pdzd09sF19X 29sIHdp ZHRoPSIzMCUiIHZhbGlnbj0 yeG0rXm9+CPWxfZM5fXP7rM 9uONMtKkR4PJiyZ439QnSmh CIvPjxj z2emc3qpmFm2WrQ9AQGrnfJ xfFgmALI8c7DwTj40Y33cAQ dpZHRoPSIyMCUiIHZhbGlnb w5zeI4w Ii8+DAYgwXI9qQY7wZ8hIeQ qPtF6ANctO820DzUueWSzMm fgD79bA4QreZP+FJQxKby3U CBzdHls ID3hhWXhBNesGi2vUYC5IpM xQwQrNNsnQ1YpMYAqubulhd hypQC7TPLhKYWseI82Pa2lf DogMTBw eMSUdZ4stjcuj8fcfmunQjV hLSPiFKi9TMp3IEPzlTtrDm KySEM7EbH2TLI0oONkuC5hz Glnbjog xH1tM1UyIXUjpgndZe47eA3 zTaMkCdN5DEepFpw+U0FNUy wgQUxFWEFOREVSIExFRTwvd GQ+PHRk IHQ4xGfhAWkdHMIfsO7dCCS pM0q2AlVaLoV5FMyrH7QhBN HtpeacJq63rR7cAyKgDtZ6D MmcT3Pb ptX2YZJkwWZmYVqlDAP9Z17 nd1K0IUTvRCWnPHL9rDU4wZ 1hbGlnbjogbGVmdDsgdmVyd GljYWwt KKrcT605DFGneHisFcShHzQ 6YaY4Pwr5Q8OwAap7LKAqiB jeOK4blZJsBBeuIl3hlXxpy NaiXB0g HLQlyjixFWZfkT5dRTHpwZC waYosZG7zMDNirvtql678Pq SjYQN5EKVdhGDgM1EdbD5kM iAjMDAw IJRlH1LugKCmMPagO194MSs hLpH7APJuasXlG8WqMTCswQ qwYmK2m6M8Hs36ARKPDVKlz zwvdGQ+ XTEiXNW3iUheXYamAARdaJ5 fOXIuT8s1UeEbXuZ6SDklH5 CiZLSzvkhaHj48fO0gQcSvM uH6MCdb J6YjhnD6LIJrtTZzZCmtOOG 6E98kt4G0KSAwVSIxCUR4hN X6xG8pwFsmtlylsLGowRkst mVydGlj NPzoPJdvA031QVVgyVisHh6 TCXF9Y6IxThk1JXVwbQrkWY 5smXMjUChlLw7oiBzznQejL B6eYRFz vbbcLPDzbU8oCSDbxMZtkTl tBT7gQVPcrqsnw520VnNpXO D2WUMeaPXzB7ZgoD5xCvSbK DAwMDAw F6PbrFBeYGzrW985QSkeUzZ 9HVCiizPoK7SjCFSliGmsOh O7z3Y0Bz5QKGypcOZ+PC90c e69M4Jn BlizSqf3HHJeQJV4fGN9wI2 mGSTmZNuum6B5iYW2W1Joni Fvbn9vr2xjGPDzCUomY48kw QSah4G5 FPRijQI3GZDmaEryXoTpjP9 3Oyc+DHYcfKbrs1EwPrhfl9 sxy9dbgIf0EoCiANYvcdTjl WduPSJ0 v8WhEi81V52xLMohLDNpWJY nXOUkXCIokUutit0zzE1tCj 8+LTAknOH5hOS9dK5qEbYtT sV9BLnx P965VzFbbVOiBevqe2gcx1f vkPi4WxWhNQXbpuTslNpxYN L7r7LmDp86T2EnsCiil9HoZ dm1ni86 kXVnf9F1oCH5O8GzJADafdn veBAhtVeiUI6tRDCyuhgtTN EjtI2oUINwO0s2DmQoMtK1J YrzI2Uz rhS0FCWbjFCtBJCxnQASqT0 sakepa7cscukjLmGiEKXcAC y5AFt3JXKpnWneZpVgMPY1S wV5TSK1 kTPliS8shQwqrzvzaC0rWfx +KZk3y2bvmEWvUO9clKI5TX 00VY55bPGsk4Z5sFU0Y1TdO GRpbmct kzuhdYD7NFTpXSImmF64Jq5 enGmhRo9dJOOcFBW3KECvhB FzX5RykO2vRhMdUTTbQAYiP 3RleHQt FUtjL449LMddPkC3UQJatpW vX8CaNEIedVoeYsI6f6B7Ce 8GEK06DH56VJ45zRWth2J8k MA5H4Fx ELPmwntffpvafCF2WXTkNVN axT52Pi4lpSdkQb3yWTKcQZ C2HYNscGArG4RusC3qAsDoW DAwMDAw U3UuzDLeJMdyX792KPczHuM 5RVFjleVuX1IiHPCygRvcGc T6s1T4Tl7IXm03RG63OG51g KPzx3E3 zXS9H2InCEHyulqynucvqPZ 1LGLmEMCaoN97Os9yjKacEq 1nMUKwWDM0VNOkgCXgK4Xhc A5sEkFi ONNvGBDfR5QtlJXcJNbzH71 7GNtsNeE5VHZdttWhT0QoFS PahCtcOiL2m9T4It9WZXwpn mg1J3Dj PjwvdHI+XH08EMSgAP49nBU hrQObp1xhtHt7VrExXMWgYK X0dKfuCZwqw0DvSHQhB22uc GHmq4U2 IGN (more content not included)... [facility] Testosterone, Serum LCon Testosterone, Serum LC 404 ng/dL Invalid Interpretation Code 264-916 [facility] Comment on above: Result Comment: Adul t male reference interval is based on a population of healthy nonobese males (BMI <30) between 19 and 39 years old. Kaitlin et.al. JCEM 2017,102;3077-1747. PMID: [id number]. Performed At: [facility] [id number] Danish Sebastian PhD Ph:[id number] Performed By: #### 1 [id number] #### [facility] (DEFAULT) [address] [place] [address] Provider Orderson 08-18-2023 Provider Orders [id number] [facility] Coding Summaryon 08-10-2023 Coding Summary HTMLBase 64 RmcpdupgRXi0xGn+PGhlYWQ +GU2QMDMmG07xxICfyH6gL2 NMTElOSywgQVBQTElOSyIgb rObHW5yeNWbBIFw IC8+PQ7aNDBiZzewbEReg3Y 7xEP1Z11iqw0oPNuqrMO9XU IwArGqgwhud9yyrNu1UUicG mluOyBt MDEifM45RNN1zK55Yz18xVX goBZvj4pvmEx8EsWoGSFlSA E3iHanXMdry2KzIRKgG09mm NFrx1N5 NKEsqBoubPTxBjLzqDN9cH2 jTCrcrpfgi4mjpniuFgf2oe 53mYHkc8V7kNI5E2FyuaB2Q GJvbGQg SqxgkXAAfD5hdhnpi0pddmn qYzMhQSZlYLi5OSw5ENMavK dvOpJkHE82ANV1DPTrizUkE 2FsLWFs qPdaUsH3g6E9Gq3GE4VZHgv uG2IYEOGEIAtmkBL+PC90cj 66D6IlIvtlNop3QCFiZBX0a CJ9rT6b HSNuBBjpu9A3gHY7U9NbcdY ouu2fl9geUWJyMWvbN74axV Bjs2A3ULOvcTS6PEExeWqqZ iBzaG93 Oyc+BHGxeGjro7YsQbsoq2p xp4tdeMe5WqtuKBIqnaWpdQ pxBCU7k2XiVg1dSIIkpVI7d OK2rT0c IlPrYnN1BBjeV672MbPrsDQ yFwnnP80pT4UofXL+PHRyPj t5IBExgEfnYW7eM4EySCCpl mctbGVm zHdxTD2kBCEnjmmiRNLomF2 jBZWvZ0s8EwQmRpE8ROqyE2 AuIHItcycaJc00iC6gOsBnA zW8GNvd G2EnbrJ8YGSakUTmCCndIDD 4G41py2U5EFSkJBGmGRY6hE I7vU3cfIcvdqouuFGyvVrjo mVydGlj FExmWTvjT991IHBdkXquSgV vZGluZyBEYXRlOiAgMDMvMD YvMjAyNDwvdGQ+UDZaGNQ2b WxlPSAn rTBvFLtlEo5whNaqiUodPY8 aHOLqjumfYWOebK6vJBTvdR IboCswPQ8vHIHxofnuk156O iAxMHB0 IDGbcYMiT3LugV1fLvYcVEE qNAZgY4JvzDTvXKarY886MV brNaM7SIZuzmMiJ7RgDJSmw WduOiB0 u4P9Iw3Cr8EytwzxH7OkkKH kYiDpMvukASf3V5VmHnidaV I+II26YAKhAT94ZKj9UKC8z WxlPSdi QXEeQ1MpsX6oKsNwUGBpOJD kOyc+PHRhYmxlIHdpZHRoPS nmJIMlRrIoiHtxAL6aQk7pH GVyLWNv yCegrTZmEdUvh9nqAKWmZEc lZS9ljTyiM5AiqBS7PHYaq7 j5Ed71B99kX5SkiHD+PGNvb CT3mUO5 xE4zQoPpQaU8HWmaA019YoR moBZgFasfw2aot4jcuEw1Wc K2AULvczTnqZxwWUD2g2GfQ d82L09y IHdpZHRoPSIxNSUiIHZhbGl pkm2dcE0pSa6+JBRptLI9uA C8fP4eZuOsPaG4UHlmN249D nRvcCIv Egcnr1chc8rwoLu4WvXdDSZ qmnIowZhoXBD9r2TsIi10H7 GsrPrho4CdKrj0lc94rFTyj 3A2cBJ6 L4EeTCAhaxdepCMzpYaoZP5 lVWFvduzwKOFjbP7dMLTtJ8 l8WfAkXiB5ZNrmN6KnwzT3Q GJvbGQg JBNrmOZQxB6qeqzax0nofub pKwVaJYZlWKa9SKi6POMydP avWcUxTVV4EwD8JRD7pPByp S5vlOus wadyoH5tQgn+HGC6fNKxfAE ZII4wEghziRF+RGKkMUU7wY szILqlEFJdmA8tYBTfJ0w8G iAwLjA1 CDxwQ1WhvoC8WHKjtWHsVCK hoCSNkI3beyuvz8ejzhctMg FgKFYdJCu0BBe8XKCbzDuuE iBsZWZ0 FiS6IAI9lFRhkO6yhHfugdc ojN7wJrc+JykruZqgCHW1HY j7U6HrGyh0GYGcoGfhMZ5wj GFkZGlu Yn8diCaksCodUQ0uONSmlms bc579KaRcz2fuGWWlwWZsAV cxKEY7I92fi2O2JGJmEFBqZ OT1dDK5 vR9gyZgiofaldCEwmDwybzA weUsxNEdoJSleS661WUUrhW vwLqJnLLb6H4NhQun1NYBir MpiHT7x cBElQHwkNl4ddBcfxJdiHS1 zRYCbdhtol545SkVwo3orIT AslAYfHFnyTHN0L83bg8V7N CMwMDAw QWO1eIX4uU8vzMoiafbbbGJ mdDsgdmVydGljYWwtYWxpZ2 38YOIdsXvuReXxxMc5L2KtS ei4HNMr mNdgEM1gsCLpAEjdUv2wbLk ziIkcCP4uVPZhdormv418Jo Fxt7abSATukVOxAHgtRWY3M 41nu6T2 CWHqESAbKGE2kZW4kL4syNt nbjogbGVmdDsgdmVydGljYW ctJKgvL680ASGvfIstHeQay GllbnQg JFfyMAc0G6KjIwdxtGA+PC9 6BOWuWW14uBBqpARzb3oraV y0PtPdOFUiAJT6eOcuJDfit 3JkZXIt Y86fhZYjl1L4LTIccJqliHH vRsFvrQZ3sI3vQIbaibnbx9 bvltkoJeifc7vcxh81kV04O 29sIHdp ZHRoPSIzMCUiIHZhbGlnbj0 gpA2sEk3+LXXswTA9zHR1zO 9qNDMqCzA1HUsuB922NpVbh CIvPjxj u9uuk1hogNr7OvP6MFKznyX ujFbyASV8g9HcRb03C72tVX dpZHRoPSIyMCUiIHZhbGlnb u7tyP5q Ii8+LNJkdFP6bDP5oH7yWfA bBdN2TDudA038MxEtnCYmOw dyY17dR3HfaME+BDEcEcw0P CBzdHls AD5knMAuOVwiQj3gWYC4OgH fKgOyWUgeE3RmRVUwrbqbzv afzAZ0EPTmWBYjnE73Bu4lb DogMTBw cGBErW1iflwfv2mkukdzHrZ hFSOxTTb2ZDa7LRKynWuzHf FsKAB9YfN1VWB0lWPcqS6iv Glnbjog vD5eK1MgPXWivkoiYe74xV3 rYvVoQbJ6SPtyXlh+U0FNUy wgQUxFWEFOREVSIExFRTwvd GQ+PHRk LYR6nDwfVYhdPUIysH4aAAX aV6b6NvHpPwX1ADcsV4UvSZ LrrhdfYy01dN1yWiTmVgQ3H OcbK8Nw xrJ8DDXvtGHhEWhjKDB1F19 mb8T7GDJdFSWvUCK7yTS6vT 1hbGlnbjogbGVmdDsgdmVyd GljYWwt MDkiP253VBYonPxtWpVaWgQ 2RmQ2Zdq1Y2BoJvu7ISDdhZ vxDU8weTHhTXbmUy6rmZtdb HigJI9a MZCctaoyHNCwoO9gWHBhiOT gxEzoKO1hYNQjjncdm060Bp QeQUU7FJAxvTDqZ6EhbG8pG iAjMDAw PLUvF7IfaGXqQCqwL460MRp wQbH7KHMvihBgQ7EmNOPukI ekIhF5h4Y9Gg05OXACYCYup zwvdGQ+ KGDpBAV4qRjaVBswZHUpkW4 jKEKwM5x6JeQwBbK4WClwU4 RtVEOlivotMy50bX3qEwEoB wO5IKne G0PkgkS4ZWUcwDZyWEasCSP 4Q87kc6S2FKSnPAXuCZQ7oE H3lV7rnKbypfulkRWsjBujg mVydGlj XPqtHHlwY892XVDomQmkTe3 VEWQ9C3CnPam3FPEbkWpsQE 0kiLKtOQlsMv3gbVvsuGpzB I6mQMDp jasbALUrgH3bSBMtnPNiuZo hBE4yYJEawpmxs241WxNpKD F6GRTbyMBjI1HuhQ6cClDnG DAwMDAw G0YjoRQeAAnlJ863DTbiGyW 8LBQscjFqO6GgCPRooUiaGq T3y7L4Cv2CXWjwmXD+PC90c q66A4El HwaqHvf8CPNsEBQ7oIB9eZ2 cUVRoYZkyq1Q8rLI9X6Rrjk Lszy6ef9heXTHvMIdaC71ip VDjp6H3 GFVwtRV2IMEbjIfsAhDelX1 3Oyc+ABXiuYtzd2ZsYiymp7 zmv3excZq9MzTtJTAccrPlu WduPSJ0 g3QqHk44F40cNTmaJXOyNRV fXCFnRQAodAbuxn8ddO2qCt 8+GOAknGN1xEG0lY2jEsNpV gM7GIld S092JhEbmYEcGgxzg1dls5s dhCm2OyAmPGAwxcYzyIkbVQ G7w4BrTa95E2VrdTkwk0QvT tw0kj66 zRKgf0O4bBE0J3XmDTWmkmr lpJBtjLglUM3jGZWnfrwxEI EfkA1gGKWnY4p4JdNtKxE7M AzyF4Xm btR2NZWjpACrTTCvoKNFcK2 jjewdz9cuurftZyCvHJQyCQ o3KXj4HBEbxWikQsOdZMH1B uX2ZZN6 eOJstJ6cvXifqpqwhU0kCai +XAx7r7fjmOGlFV4saEV9WD 77FZ34cCBcb6F7gGT0D6OxH GRpbmct hwlhaEN2QTJxBGRfhM07Fj6 wwLdvQo8yWGMdDDR5JVOhpH FkD0FygX5iBiGuJWYyZCFmQ 3RleHQt ABzcW004WAynQxR3HZBtlwJ mY1HpTUJazDfdUkS3b8F5Ff 4ITW07UO41OP21fFCmg4J7r IL5N0Dt IIDfemfsmhsgxQK8FEDoPKC gfC36Cr2jpDesSe9yIOVsSE J7CVMnwQSrP6LqtW9qJdXrK DAwMDAw N7MjzUZrZGxvY199IEvvJkH 1ETDzidDqT8QkFTLrhDfjXu U2v6O5Ab1XYr97YS15FA92p ZDhc3T0 uLV3A9KcQIXmdsppxtkreJU 9IAXiGGCgiB09Xx9heUzjGf 6fHVLeFJN4WQZibUEwR9Jvz P4dFmKy VLTyPLUyS4OhoFFrFWuxK75 3ZUkrZrP7TYJlueGfQ7NvUH JswFupVpP0s6I2Pg4EZAelw ba6Y9Zp PjwvdHI+UF88PZDqAQ82qZI jiFLbr1rmrEf7BgDjWYNdLF U4qGahAMgqc5XlIZXfU96xc LDgn7Z4 IGN (more content not included)... [facility] Coding Summary HTMLBase 64 VezzvaxxAYh5kAa+PGhlYWQ +JX0NBMKsR56ymZEckQ3wC6 NMTElOSywgQVBQTElOSyIgb qOdTK8mpBLeAVVm IC8+GR3xPONhTwxltPEyh7G 4uTN8Y85zou8nNNveuWX2ZO UqBlTacnwkg1ezeJl7XLqkC mluOyBt UHYigJ57NGJ9qS39Nd30oFV srXPkj9bvfHe7TiFzWLJwEX B8uBtcLByme2OdATSfZ33kz EIac8B8 ESBlkKgylOUkZvJnsXM7qA9 oBHxbmhxub6lzxsmmYjl0df 31iXZxh0E9gAL1Y5UjriW0R GJvbGQg YgasrCLNbM8olikcr4fanir gVwYfBTLzQGr9NPg4BDHhiR mvIqFlSK93WCG3FCXghzUkU 2FsLWFs qGqyPfM9h1X0Xo8SS7DPLxe bS8NCGPQEHGcyuWS+PC90cj 48N2SeVudySpc8TCMoHJD8d ZM8pS0j XPObVSdox6Z8aAG7C1StxsW nnj4lz8vbYNStVZyjN19sjG Wcr1Q9HMReqNA4XWDerSqqU iBzaG93 Oyc+THXmmVgib5PxZhmhc6l so3hcpJm5LzjkWAVtcgQvyC kePKB3p2JjNu7uGNZueXS3r NI4tI9z YuLcQeJ4LHavZ370WvQniCN vEkdcF15nP8GaeQP+PHRyPj f5GVFkeQjrFH4hP6KrEYYgg mctbGVm kVrfGJ3hSKIalivmUMNunS4 aPKZiP7q8UkXiMiE7KQytV5 YoEAEponvtEp78lX5jErVbI tT2BPvu M9SywsT2SIRxzIAxKBmnWAF 9M42hf0H5ZYNoSSFiPMJ7lZ J4zL8xjEqodeqjpCDbcJzll mVydGlj HCjvXRevJ768PUSyoKjaKpW vZGluZyBEYXRlOiAgMDMvMD YvMjAyNDwvdGQ+UOHaHIF6x WxlPSAn qIAqEPaxIw7yuYtwpMgaRH2 lGFGvvdmlIAApbP7qVVBemV BqhRyyQO2mECLuzsjqv987J iAxMHB0 RDWevUQjC7IvaN8eFwGjBPA gHWMkZ5LwkFHsWSscQ098MH mvVtE4CMFdqjZjB9JuLRQqq WduOiB0 u9U6Aq5Uk0UdrvphQ0GxzUJ xUoNnCqodCNh5V0ByUflfmU I+IG48GHVpET87YXx4NGY7f WxlPSdi TVYmD4JwyA7ySmDeYHFtEES kOyc+PHRhYmxlIHdpZHRoPS onSPNrYjWeoJemAK2tXk3aJ GVyLWNv tMgihHItNiPqh1jkKFVbVJi rHR6txSmnO9VkcOF9GXNgf3 z7Tw41U28yD4AxmOF+PGNvb HY3qWG2 cV2fOzZgKmQ4HGjzA563WoN viWOdWvvht9unp3vykBc0Iz Y8ALQaikIigInxOZU8c7PxP x74O03l IHdpZHRoPSIxNSUiIHZhbGl etl0ssB8xSm3+FDLqhBK6eU I8uG2yVbAyTfA1CMknO430T nRvcCIv Paezt6nad5fhfLa0QxUbCPX czkYryBvhSKE9e2YtQj97M3 EfpLvpz4BeQht4pv54cJTzw 5N7hSS4 W2IfCAEveuyvwNOdxYmeHR1 gDEHxbdszMGCbtR1eOSQyK9 f7ZqNhYlU2YZclC0GqswO0U GJvbGQg GEGovMOCbE4myejdo0skyqd oViOfODAeOIi8DXl5FUWbuE bnTaRyGEF0EgY2QBV4lREod F4igQjm nwmprL7rZry+OFV6sGMgbHZ YQE4hWkgtoVV+OSNcEQV8vI lqSVokNYMxaF8hOHZmJ3j7W iAwLjA1 LQcpK6EbwyN6XHXgfUFmFUU blVNFwI3czizyb4hwjmliAe PsTSXqZWt6SDz0RSSohMewW iBsZWZ0 RjZ2KEE4gXRfqD9zmAltshh kqZ8xVve+JijbbJxrXZP3YH v7J1OjHam9YCFskWtfSC3bc GFkZGlu Ou4fmQuqpIikOB2gALWzlrj dz526ZmXyf9gmEKPkpLOeBZ abNLK2D81iz6B8DWWqYUXrC XD9nZJ3 rK7zcKjmrchrpCBdpQiiqoO jqQabIKybKYmxP046XAUtuL tbSoZbKPq1R0LyIhg9NTIec EhfVP5e xAJlKLuuQs4kjFvwqHeaWZ6 eKRAnlwsjl642ZfOpf5lhWK CulYAqXYceMYS0G05jh0H3B CMwMDAw LFJ1nAW5xA5nqLeemztcvJA mdDsgdmVydGljYWwtYWxpZ2 11HKEuwTstPpZpaAg0P1SvQ zw7HUAu fLujZU4uwMFtNEmmJu0xbQk joJygPY8fWYNpukmhv106Mn Naw1wuEOUgkJEoMSseBEC9W 90qc2H0 ORXrQFBzMXA9wHF2oK5smAp nbjogbGVmdDsgdmVydGljYW jmIUdrN236QKScpThxLzDux GllbnQg LLmiFLg2Y9BhLcyyrLB+PC9 7WXKqVT06tZSudVWkf8klrF o8XdYfHDLzJBX9zZhkNSrst 3JkZXIt N78ezBOrr8Q4RQRsdBvomJK jYfPahNE0mR3eAJxdljtgs2 adksdvTyqyz7myvd52qC74U 29sIHdp ZHRoPSIzMCUiIHZhbGlnbj0 ebK1aMu1+EJKluKX3yPT3dA 7tRCRdFtA0CYunQ869ZbVvo CIvPjxj d1qsy9mqxXf2TqI6SNBtcyG oeWtuOOL6u3RpBh62F16aRB dpZHRoPSIyMCUiIHZhbGlnb c8qjR7x Ii8+EEAvmXT2fXQ7nX7eCxW iXyB7RKcdN641NoZcgWGwVu hyQ78aN8KbbGJ+WQVcOqw1F CBzdHls GP4krZWuKRklVx7bWGH2VqR dWhRkPReeR4RwOFVtvrgvpk elnFO5NZMnXIUokB78Rb8tb DogMTBw xGMUwQ0ncurir4ckhgdnKhH gQNGxVJp8TEm1AMRaqTdcFu HpDDW9GbT5WJD7eYOczK4sh Glnbjog dZ4aY9OiQVRncfqfWd24sH4 gRoOeMgF7SIxbBvi+U0FNUy wgQUxFWEFOREVSIExFRTwvd GQ+PHRk WUR5sUcbZNfkHWEgwG7jMDP mR1n3BrOmVcA0QJyoM5DzUX MyemexWq51mM7iTlYzElP7N PosW5Ef lgW8CRLdtHOuYLhoFQO2A35 tv4W5NFByXREeTCV6nHY9tH 1hbGlnbjogbGVmdDsgdmVyd GljYWwt NTddE762WSOazTcnHiKiOcV 2SlP5Nvi9S5CbXpl6TMDgfW teBT3piZBrNFzkBv6gfOnca TjgKH3u LNKapvafKRMkcS5yHQEyoEG iyXgwTM4oBKDynucvy255Dc GvVIM7BFBgmVXbX1KgpV1hN iAjMDAw FGAoY3GqgHNgTYmsI155RKk aPuG4YVOdyvQxK5UwOKLouV toHzP8l8U5Xn01KCBXAAMbh zwvdGQ+ JRKgCPJ4mNhqXPlyKRYieE6 gSVWkO3d8XlEmWmM0XTfyM6 IgBAEtccpnFg94rH4vQvOrK iP5ASnb J9CxyiU3YTAqrRSlVFdtSYA 4T55nr4B2NAHcIUQtYDU7kG N4gK2koGcizrblcAMwlWzkh mVydGlj EIotERmaF003RVEqdTmoXa1 BELO5Q6CjZkp7XIMbxSneUP 7dgJWzBVrwCx4icMngvWnyO Q6wLHCk pecsQVYtnB6bGRByaHRxiCe dED7lFUCkozotb192SaIzPO U5MTDzvZYvU9WxpZ1tXnMaC DAwMDAw P2CqiEWnOBcaM160UQywMxE 8LKUkwxQxF0SyTMTgbCemOz S5j4P4Kz5IBIxncID+PC90c e25T1Ny NflqKmn1WXJkQJL8xUS8hD9 vKPBsZKxhg2W5yRD0E8Rwpm Lftg2de6loOQFbIIfhT50ck ETvm7B9 YEJzvJV3DVMmyJfnBwOfoB3 3Oyc+UOTolJctl9ZdMxqbg5 txj0lzfUv1DjPhZLTmpcJqq WduPSJ0 b5EwRd30C57zSLktNYFoLFK iAKFnHQEqcPofan7sbQ8lHi 8+LCXxnHZ0zPS9zS7kAjBtT yY9FXsh H007RkLkjUErWbxvo6ujw8e loDq7RxGxHSLtekXsrRjbPL F4f5UhMe68O2IstKaqn6YgH mu6ko82 nXPeo2O9lKK1L3SzKJErdfe xbFRhrWtbRU9hNIYpruznHU FbdX8uKIUxL7g1SuIrReP6P FbeM6Ay nnS6KICcjGXzNZEdwDHSnZ2 dvzvwv5uodxlaBhAtSMVkBQ w1WMa6TULujOpgRtRgKSP7K lF0QIB1 pSIdkF3nbYeamypdgU2oMtx +IFd1g3pbyQUrLU3yrAS4BM 66KG45bMRsd9Q3tIH7Z3SeK GRpbmct rmtymMT7VWYcPRFbiX64Qz9 tuPikZk3uVQNgYZT5YTMeaF FlC3FxeL6iXuUlMSQuFWOxC 3RleHQt OUqoX152QXuaOrE2CESneqR nT3EgKGEhhXxvKfP3z3E2Kz 5JPZ64CN31PX76cAHln0N9k BK4Q8Bp UZBimihposwjiRA9ILNvQOM enT00Mw8dpVuxDw3dWSIvMJ R2POIdqDLkB4QepT7fMpAjQ DAwMDAw H6ZbgGXrYDfwI089ZUueNqN 1AMHfllXxF1CxGLKgqFmeXr T8p6Y0Op0RHu47XI25DV16q DUda2X3 jOU8Q1KjYIRrtwgbkxxugJI 3PMEqVCAxbK30Sc9gqDtjGa 3nEKIoSSK9FSAxnBRwX1Pqh O9sTuCz MGHeVOCqI7SavOYjQSonR93 3EPndRjT6YONhgwBfV8AeWX YqmCppTgZ6s2V1Zi2QVBjyv ls5O8Ag PjwvdHI+LN82JNVxXJ49xWF uzFItq8agsSp7ZfNfZVBlAV D1lQvjHDhyj8YzKVRiC68jf HNqj7B7 IGN (more content not included)... [facility] Coding Summaryon 08-02-2023 Coding Summary HTMLBase 64 CdmohsdcNGv6pLm+PGhlYWQ +QG5EQSTpZ95rfAVriF8qD7 NMTElOSywgQVBQTElOSyIgb fMcHJ1fxSDpAHTs IC8+HV8zUDFiOdvxpZUbx8Y 9uAI0O18afc7sPXguuVM1RU GcNnZaluuio4krnLa1LPerO mluOyBt FTRpoV52PRN2cS51Ep10pPU edTKkk6nzxOg0NcUdOSKjFX C8eWhsZYvvk3SvRMEeV84se WYvf9M9 MJMjfSxuuJQqIsZfnVF7dR6 xHHyppmgeh8saxayaHis6zf 95gQGrv0G8aDZ1B3RkpwI4D GJvbGQg PxkdjAEIzL6lesngs5gmmol xVyChZIAhQLf7MPd5GIPmtV fiJhUvAO70SXN7JVJgfsPvF 2FsLWFs qAblAsI9g5P1Fw3PV5KSGwp fM1JTHQQFQJbsuZD+PC90cj 88K2KwVuapKmu5GGFbRLO9p DF3xW4z QRCyTKeyr9Z8dUI0N2PsejA hin1bq7qnAJWgTDxgR03nfE Epv2H2QCBekKU5JHHvyMgaH iBzaG93 Oyc+AYLddAsjc5FjAoteu9d oo5plyHv9MnpgFGXckuAaoL reZNK0h7GqCi0dZFQgtIO8i AZ9lA8q EtPgTdE1EIpqW240ZjFqtPO zLxroR00kG4JojZY+PHRyPj w8LGOuxTupYH4kU1HtOZRvf mctbGVm eOaiPC0bHCPmlxwsKOVcdX1 pAYAdC2r8UoGyHjC6XZjuP2 CnTFRcmruqLz11nF3uKnYzE eY5ZLrh R1TsntB3DZUlnMQyKOkeHFE 5G36iv2M3DCJoCCDzLGQ2qZ Q7tC3wrQipcaluzVLkiMwbw mVydGlj BDbcCKiyN421MTWbfNhaYbV vZGluZyBEYXRlOiAgMDIvMj cvMjAyNDwvdGQ+ETYoGQD7c WxlPSAn yHAyLVerOm7fqOdqmXvxTK9 jNZScczktCCGutT3gNTWyhK XwwCjjCM6kLPZeikyuj144L iAxMHB0 MOYiwXXgZ7NelP8nHkSrCJT iSOJgT2UzqOMpMKjzG083KL kxFqX4BLNrgjSgC9TlMXNpi WduOiB0 r9M4Dv7Hk0OxozngR0TtyTC wFsGgHegiRVc9F1OcZwlpoI I+FE02MEYvRT52SCk1QEL0g WxlPSdi GHKxL1NdqP9zDfDhOFIcNHB kOyc+PHRhYmxlIHdpZHRoPS xnUWNuIlZjrUjxAY5zMq0nE GVyLWNv zXglqKPqMfFaf1ytXWGfJJc fME5zrIonZ3HkpFN2QENhw4 l6Pu14Q50wI3UgnFH+PGNvb JJ6cXQ1 xK4eTlJqYtZ2SDpzQ930JnD idGWmQrpuu9zga2hizDn3Gc F4WSUjxiKxjFwoIZQ7v8LzE r50H46o IHdpZHRoPSIxNSUiIHZhbGl zuf7awS4aAc8+CFNmvVK2iK L7qL3eEoJhPqZ1WNkfG331P nRvcCIv Ooaer5vhg8fyfZj3NzDsXCD toiScoCwxEJJ4i1RxZg37V6 ZcyHmjd2JkEey2es09oSSck 9H2pUU0 T4DtBJQfoarmeVPdoTmxUF7 eLNSjcmcyPNFsrA9aOILiC5 i6JcHkJsU7JShcC4FoghQ7S GJvbGQg QPQjjOVGbQ4kxeuji2zlfqf mTrDpFIYlNGc9QEt2KIYveG joFyDeMYT7BcM7DID8gJIxq H8roMyi cbipeN7vNbc+KBJ3sFIopOP HEF1bOyvtlUE+NHWyORX5zR jeRQncPJLymH0gHJVvW2j3Y iAwLjA1 GRnoA2UaxnZ3DDGxhXOoDQM hsFMMgA9qlzapy9kusmuwVl VtMCAvDCh3DVm8PASttFseB iBsZWZ0 AcE2QHG8qRNwbJ9lzIzrgku qjQ6iWop+RpaldCndFBP9BC z1U0ZrDon4EDKykXpoJH7eh GFkZGlu Ur7kkPzryYruGM2eGQAcyzm ev266IdSxe6qhFMDlvYFmKG dvSWK5N48cb0W4IWZvIOVtH TS4zZE6 hC5qfQbkqzehzFHpyFutljP gzGijSUrySEqdL916CJYpjX vkJjEkLEx0K4ApMfp9YNJti CxzBD3r rGZsJFtoSq9zsBnwnGbwGQ4 iZSXefzeeu423MjOvv9afHD XsnJBzOBiwEIU9M11go5A0I CMwMDAw KGG4gCE4gZ2fvQzdbphplWO mdDsgdmVydGljYWwtYWxpZ2 93AFSsmMmuCeQjeVe6U3ZlH ca4UFOe fVsxGZ0diNSlPZvyWx9pnOp okSjbWS5oDPXmjuspw845Gx Lil9qzZGNfeTVrOUpeKUZ4G 84wt1O8 LQAcJUTiTDB4aKF7gE1umAc nbjogbGVmdDsgdmVydGljYW bwVZprT081CFEvfAjiRnPlb GllbnQg FUegZOe9K7IjSnwrzWL+PC9 2KZVdRK64gOGoyQSxp1tzhP i8MeKdSHTxGDM4vUuhIXuyh 3JkZXIt U30oyDNgo7R6YOWvyHvgiEL zRxGwlJN0jD0uSArskngpp0 sannyjPrxsx9qdzo16aN34O 29sIHdp ZHRoPSIzMCUiIHZhbGlnbj0 zcO8aLx9+SZZipOY5gSE0fZ 0nGERyRiO3DRuqW386OfTzh CIvPjxj n8hkc7xmpDk8HjC2WSRmgbB qiBdoJFQ8l8IzTj59G43sVY dpZHRoPSIyMCUiIHZhbGlnb p3wxJ7q Ii8+ZDXalJG8uSW9hO2fPyO bPmA2WEivW566LoRmpDIoLn yeS93mL8IbdNF+NYFvUjb9M CBzdHls PP5siVEtQBbsYz7uYEY6EqQ dYwNgMDbrP3MjWKAvhsxdvx bjvYW8RBZbUWVgpG40Ij0vf DogMTBw wSLBbD1tvmevo2qqczlwLdT oKWEyJGa5HPc6WJLgtFuuAm WrHPL9FkN8API0dWNkmE7sq Glnbjog cX5zC2VmTZVyrmybBf61fF5 sLiNwZvF4RSqkSoz+U0FNUy wgQUxFWEFOREVSIExFRTwvd GQ+PHRk NRB1kGuvWGqoZDTspA3fSSC bW7t4VlGaFzL9RDvxM0LlZF YwblymGy64eB3eAzGyThC4S GneQ3Wf rmQ7SXKgvKEhCMcdICP7U10 yg9U0EDNqANKyDME3xMV3hJ 1hbGlnbjogbGVmdDsgdmVyd GljYWwt DRpiA255ZVPuaUapSrMoKbR 0NgF7Pxm9K1InYtq8FMDbsH xwQP6ldDElSCbqLd6mcTran MhhVZ7j QLHoxtaiOKAclY5lOVXcvBO yrGdzYU4nFRFxtwudk420Sb ByLCE9KKXyrXBuY1LfkI7kM iAjMDAw SEBnZ1BunRTeTCyeO645CYl tIiK1SEXhkhTxK4YiINWsiW rrAzR1g5L1Eg35GOYAIICcr zwvdGQ+ CLKfRFO8gResBDhjVDRwoG1 nBDIgJ5f9ZuPiWyG4TTthE4 GgKIDgdcdrIq26oF6rZpEhC xY9UXbd M4QlajJ0IMSnkCCtHLqrVMX 5I12et7R3FQExMXWxINR0gF G8kD7guAkeeglrmJWaiEfgi mVydGlj BYkzAEyeJ609GPNnnPpeDs1 ZKXM4T4BpOxv0HGMvgIiuGZ 4cfYXkBYuqGq1ytQndgRkiL U5tPIIi nausVJLxsW7zQZOjnUNijXb aKY4aQUCbaahpc809NvBoCT J1PNSpzNVhD4NxrS9uJkRjU DAwMDAw D5DlyGAxAEcjK571BQxvOcW 4MRDymeJcI9EcINGebVisFh S6y7O6Cd9XLLpkcJH+PC90c c36B3Zg ObeaDrf0CTJjCGJ1mIR0oW1 oCMRvARlrf7W8hHB8Q0Rpqo Pmyo0dk5pmNLStVLxnE80ps LXrd1K3 GPBjaVZ0PYArhGioVcTsaY3 3Oyc+LCBytLklt0UuCofiz3 fks5oinMs1SlViCRQyogUgn WduPSJ0 q7WyIh95N10hMMtrPXSuYZR kHODtLKEnqHzxrm8crF1aSo 8+DNSraOH2pTV6aK3jJbVkV gR9MTry I915KfZlkLXrHftrh7jhk5i jqPd8RxGoJDStflHxdImkLH K3q9EoHx24P2VcnNpqb1OqJ hr9vr74 kYHql2J8cUS5M5ZzFMJelns pnMJnfRnfBA0fGJTgwdzuWS YjlU1dWUWsP6q8OwAxLyI9A IheT7Gk jmC4NNAzeWDcENXniYDEpV7 cexsej7ladcomFcVgDGWxYU u7MBq8RROzcNmaHxPrMJP8J yZ5JPE0 kNLlsL4ztXinfequwZ9cAgd +SVd0p4zrlTXeGW4htAS4ZT 01YT67zMNdd6W8kGU9X2UfY GRpbmct mzvdvAK3VDHtRGTysN89Jm2 geAdlYv8lOBXjZPH1JESptX SpQ5OanW2hBkJiIHHqTBFrE 3RleHQt UPclQ336BZycNrD0SCEmbqZ bD3XxIKOddCtgQtH3r6P1Ly 2WSH19SK37VT60pZEyb0X6a MJ7L7Bg WRCeqjxqiemenMG4VNSlENN egR75Vu1thViwSl7dHWKpXN Q0GIGruIQaP0UlkA5rWuLzT DAwMDAw Z5EsyQDzLFwiF312UTszLuO 9XHRcnbTeO8VoOGVqzAipIc P7k6F7Qd8LGd05XO61WZ88x FIna2L4 sZP7X8JxYPDiidjyzqdvhQQ 2NWTvBMRwfA30Ha2jhFuvPm 5vAJXkMLB9EULzaTNhY1Vyo E7mTrYz EEUtOHWaF4LoyTNmMXtmC28 2UHpzFlV7XBRczoPkT7DyYO VoxUgbGoQ9e8R6Cq2RDCitj lb9A8Yq PjwvdHI+OW28JCTbPN38nQE vhOArr4qxoPg9HtHjRIYfPS S0uYhzREbwf3FuBXFqB26sa LYor9L4 IGN (more content not included)... [facility] Coding Summary HTMLBase 64 VmnzczhpNYm9tOj+PGhlYWQ +ES7XCPHxR07qgLRvdN2sL8 NMTElOSywgQVBQTElOSyIgb zQmRB6asSPfPRBl IC8+FN7sTFVzYnkdxJSwc1N 6eFH2G74abt6iBXwvcML1ZC MjRiCrkuyqg6ghxNf1TOrzK mluOyBt EWNflD57IEE0kJ74Un50yQO gsFUmj5foqQx7JkKmMAAdFU Y0eEdeROoij9MxTVRfO44ek TUbg8J7 YLPjyEwfwLFcMfCkdWY3uW8 yBLnjxoruu9dyuqidKfb2dz 63sPJtp3L2fIA1P1XsliH2N GJvbGQg KqwsbWRMqQ1arfzdx9kqrfv iVkWkISNoUNh9VKq4SHDorC ssZlGvJW48JZF0MOOisgHyT 2FsLWFs nPutYxO2t0N5Tr7VR7JZWdv lW7ARTRMACHmcdVH+PC90cj 48N1VlTxltLhk4FSGkMVP0m MY3pE0r QYMkHPytn1A2pXN5R0FpzsF wri2mu2djSTVvPWpqZ29odD Btr7N0QNQqxVE2ZCZafPbaA iBzaG93 Oyc+OWPgaStrh2UjGydpv6v hc3jkqAl3IeqbQUDlysFrxP cwILJ4m6VfBi8sTRWcsWW2x BB4uF4r MuYiGkI4HUajD383EyCvvAP dBkhgN31uS3AdhET+PHRyPj q6AFLrrQvxOS3eH1PsVBIwa mctbGVm zBetWS3lKNPisrvtHCXlhE9 oGJAtM2w7PnRpYlZ6DKcwW3 CuLPDcodeqAw21kU0iYkUwO tA7CRey Z1SlenM9RTPalNVqHDnuBMM 1Q24fa1N3JXYuQNCmGOJ1lK W5zE7bzYwlumlssLXwqWgig mVydGlj TKygOKarE545GVCpkEfhOfX vZGluZyBEYXRlOiAgMDIvMj cvMjAyNDwvdGQ+PYCrKVA7h WxlPSAn sVFwENrhZk6yoEmbcGgfUQ3 tBCFhgykoICGmuA8qPLLggQ PcrOicON5xMZMuamtwx898R iAxMHB0 MZCmbFNjU0TvmR4hDrHuBTR vOEBiU1VxtCStRUoxJ980QE hgDjR7OZMxwhIlC9UgWZKda WduOiB0 o8Y2Xv7Au5YbepzyB5MebGR yFyOqSwdvBHr0R5HwLjnjpG I+GW60KDYlYA09TQf4WFO8o WxlPSdi XTStT3NdxH5kPtPnAJDxEQF kOyc+PHRhYmxlIHdpZHRoPS saMUPiAuVobHqqSC6gWh9tF GVyLWNv oLutfIDpErCyg3uzUJEaEGe aRN6prFrbI4FvcDW3ZYMqi9 t2Ff92D66wG1CcfES+PGNvb KR8dZT5 uC4pVlQkHwD4BJpsN204VwL kkSRrTuolu1ned5hlyGh4Mz T4IMMhybUluLeqIFF3j7FiJ c93L55g IHdpZHRoPSIxNSUiIHZhbGl xsp4xvR5vZz7+OUMtoIM8pC I8iM3lWgLjYjG1OXozP680I nRvcCIv Gxhqv6xyj5kbeBy0AyYyDVT xfsTydKldSUT1x4YoIs51F8 NnvJakw6JiZtx8vg96jMNlr 7A3zIZ0 I4PdCMJnmvdbrBTniPmdRK5 vECJdwmrwTQApjX9xIOXeF5 s5HnVhFfR6RYcjS8OwwzI4Y GJvbGQg BGNivVQEpZ4jubcik3yokhp pVxZtUCUpTLe3HFy4KOFnuB qoYeZoHHJ8OmW9ERL3bIZpg J7pqCpj dnifhL3eKuj+DFQ0lWHghVN OOZ3kAxloeKS+HTUuSZQ8bM siBNzbKKAbtV0rIWNjX4z8U iAwLjA1 RNwyU2FxadN2OFGyqKYzCAH ljCRBwM9sneefi0fisyvfGl CnHSRiBUc7LNv3NQAdqVxjP iBsZWZ0 LhW0CKL8tVHzpM4svDcukdu qkY1cJsx+VhpfnWaaKDC1IU z0E5SpUws1OBJjwUstOC7fd GFkZGlu Dm7zlMzuxNjuYI3rCXRijeo nw651TjXje0ycTAVkbQDqCQ kdGIM7E80rd7P9GBAyJMThO RW4dOG1 xO9maSagbgtqvKAitOdlieT hrZzlBEvwJRlrR852WNBzqC baHtAmGIo7Z7WaIli0LZMwo MaiZC2q hVOcTTrkXt3syAwscNhsBQ9 mSYAuwdryt432CbCwe5dpID RstKTfMInvWGJ0T58xv6W2Q CMwMDAw DDW1pAM9jC3kwRmumuksuOI mdDsgdmVydGljYWwtYWxpZ2 07QIEdqCyhVqAwhZc3K4NrW ed6IOEs aYgpVI1pdGXaCBgaJe8sjQk dlNzePA4uSQDugzwqp936Ox Zea9ysNREfoOGcJKxkNTP1H 58wr1Z1 HBLtQAMtLXX6jEM3oG0opKf nbjogbGVmdDsgdmVydGljYW njBHewM487MYCkiVuyTaIwx GllbnQg NHanOIe0K0UrVjmhiCX+PC9 5FLMxWI41dOVsbAPku4pfaF w8LoPdEVKcNPJ7hRtaCSwrb 3JkZXIt Y46irAChm5L1PHHjdQnmySU jWtLtpWW9qG6xUZrqravae3 siwgboTcoad0dabl90oT23H 29sIHdp ZHRoPSIzMCUiIHZhbGlnbj0 miJ3vDr8+TQJjmUI2hDJ2eX 2bGARbRnF5MIqaI364QxKmm CIvPjxj m6fha1blhGp1AhI8QTLvmsI mqOdvDBN5k9MtAk16L13aYJ dpZHRoPSIyMCUiIHZhbGlnb g9ywC2e Ii8+WNFybFA0zDB3yV4kEwW zGjH0DSqfQ505BfQkuAKkSd juP26tU6TjaHB+PMWvDfe9Q CBzdHls JG5esNXyCQzaTz1hZCO8AtI eNeXnDCtpJ5YgVCBgxmhyhj dimDY1UBTtVVKuzS99Oe6vo DogMTBw nNERxQ5lscjnh9kmflajIaD mXUDbGOw7RWj2PUKasCsrDp MoIOX8BeE2QAP6qRCdvB8pi Glnbjog kT2jV5QuMDTbvoweCw07dE3 fKxOpBgV0ILceYhy+U0FNUy wgQUxFWEFOREVSIExFRTwvd GQ+PHRk PCP7uPmbKUssBXYqiR2hZTI dB5z0PmMqPlF7RVncM0TuGD WdvamqRb22mX2wAiZyFqO3H ZzcM0Pi lqM5HBWgtCWoDZylZLV4R94 ys3T4IIHnPQPhNXW5zWU9pE 1hbGlnbjogbGVmdDsgdmVyd GljYWwt EYmsH696GJSvpHnvOqKsAfY 1BtP5Xwb4P2EqCyc9HCCvxU gxPC2yiWMxVYrcOe9lfVyhr RjbQX0j OOCulvndEHJysX4fSSCodMI kzXcbOV0eRTGgpmdvl334Qi OkKGI5DWXqeCOvV0ZlgB3nS iAjMDAw ETVwP8UhcMKeWIafX103SPz gWxX0EMTnssYoN7BqGPKytA vkHaV2w5I4Hs21QJUBMEYbs zwvdGQ+ SZXsLXF8oVaaSCnrCZMalK0 mRLWrV3m4CoGmSpU9RCabR8 KdRTDmipwqDe18iF4hCnOdZ eF9OOgs J7TumsE1IELckOOjXMzyJAC 0T87lp9Q9YRIiMSVgJLQ5tV I8hR4fbGagscprmXNruKpeg mVydGlj WCkmCJhrF181RIUzcKwmRv9 VRIC9N6DdExm8VHOwgPdcZN 9bjOBmLLnoKo4mzHmwuJuxF I0mWBQk guqcENJbrX3bRPZimZLjwZw fNF1iPELdudebh335NtSfSJ Y3XPBowKAmQ2KslZ2uUsInN DAwMDAw N7XlkZOqRVocF842BBfmTgN 6DBHqaxYjD2KiYDNlwVcpFi Z1l6W9Ms0KPYnpdOF+PC90c s18I3Az DimiExp1AYJcIIO9cIA4mH0 fQVVnMIljg3Q5vXX3C7Iqdl Jatw5lb2zeITGiZKebK50sh VFed8A6 DXBatNL1KHIwuPyqUaGzzY3 3Oyc+SYFkdRnow8DaQcntz5 rtc4cugQu8NyPjIGCqakFzk WduPSJ0 w8DoEa73C68wJEwcTDMaZVN gKKMnJYVgbJjveu3npP8nHp 8+NQBzzNW9mFP4zL3bAqIqG gH3YYaq E882JcIbuPQeXqmje3tjq9r dfHa9KwRcITYpinXfiSjmAU S2u8VoUw87H0DwcKgfm5WpM gd0oa38 jEFpt2W2nSH1T8PlONLzlba lbUKwbElcDR7rTXFgdmexCD HukR5sTURwR4d5BrPhBcA0J RebT2Iv etO4BPVuxZRrURClxZPYaJ9 efefyw3ojphglZfXsGKUyTF k4JCy2GUAqbTrtHwElIDC1O zC4FYQ0 fONtgM0bqAhxuolobG1lTod +YFn6r6nqoRRbNU9jjMZ0ZM 34RC09rBYht1I2qML4K9HrJ GRpbmct ytaceGP4ACGpQQFmhW38Qd3 ruHxoRo9oAHPuPTD1LSTvqM QdT7EyxD7ePzSaNRLqFMHlQ 3RleHQt MJkdF605LOeqTtM4JGAxuoU tV2TkIKAzzPhmHrV2u6P8Sy 1YZD77QK09PR25zVFmb6T8g MQ0Y5Kd HDLhgdcqzufrxCI3MOIgAHF rwH57Ce8ysAiiHp9wZIUhNM P0JCQdqPVfS3IzaG3xZhWkS DAwMDAw Z5UyaFGrMOxrP317GTyqIcC 0PZUmjyPoM5LeZMCjkWgkPy B9p4D0Ne3PXw12YN52FK98u EAim6I2 oKI6R8VzDTYudlusnhtvzBA 7HVXaZDEbuS07Dd1mcGbvXc 2uQGUtFXF4OMYskMGaN8Bqq X4tZbHo MUIyROCqY9SccTEdXUtaC21 0IBxxQlH4ARQxszTvY7NrKC LxeXamSoZ2j3Q7Mh8QXFqjm gf8J6Vq PjwvdHI+DW09DKAzQD50lZH ctIQqf2jgtOg8KtWqUMNhTX V2dZwmVXkts3JgZDCpW98io URph0T3 IGN (more content not included)... [facility] Coding Summaryon 07-12-2023 Coding Summary HTMLBase 64 GfndzmmnPEo0bMa+PGhlYWQ +BT4CBXGlO72chAKuaW8tZ0 NMTElOSywgQVBQTElOSyIgb eVfSZ9agSMxLQXu IC8+ZZ1hTOIfQpdiwSHtq4M 1rLT3B54tvr0qVZuxhVV5KA XbSaSaqlcom0jxpHb4ORorI mluOyBt EUFdzK90GRJ1pV01Zi85zAU jwVYii6rrvHi5UwUoFPSbJR R7wEgkRVipw4EaRFFgT35ah HQcb1V2 WMFkeIrffKYdAvToaRH7tI4 sNLzbmprko4plbnexPvi2gg 72lBKfh2I6wOF9Q0RvvkW6H GJvbGQg ImzzzKVFxZ8ulzzym2qeato kPeNuNWJsCUi3QTi5JKJnpE evZlYjCK86GQB5EKAnhqYeF 2FsLWFs tXrsBgD4n5J4Is8XC5RHStv lV2DJRRNINLjnbDF+PC90cj 77R8XrSavkFjs4GAWpASP4b FZ4hS6p UYAvKWlde0J3wCL4K5FuezZ sjg4mg3nhHLIdDLtxP78fjY Qxp1D4ANNdxQK8WFQxrCfcG iBzaG93 Oyc+RVJzkLkwv0BkOahmc2t dx6obxHf0IqlwACUbfqRriL hsHUK8t6LtWz3yZUHtuUV4n DM9vC0b UuChErP9VEewG979FoCehPO gBkzxU04sM0IrdBY+PHRyPj t5XLNdjUgrTE1aJ5OsFDQhg mctbGVm qOhtQC9vEMZqmakiIYFozM2 uLQIeO1d3XuFkDjL7HOubF6 TvLBMkfdgqBu62uQ5kEgJjA fI8ECcu G1WmbqR4ESWmyOEtESlrKYD 3P38qp9H8JZZmRXKgWYC5cT X5gB9fzEdhegcuzYFsnLzsj mVydGlj MRpdDMpsD073IMRtyLdaMiL vZGluZyBEYXRlOiAgMDIvMD YvMjAyNDwvdGQ+JDSeDNH2m WxlPSAn cYZoCHqvIm8bzWvssUomVH3 zWPSvbvxrZZNobU7sEGGeqN YdqIimMR5bXKNjjihel716K iAxMHB0 VVCwaEYkM8OepH5iQhXyWYP sDIGbJ7PsrQLeTZbpR489LE rnZkX3EVOgezIfU2KvRSXch WduOiB0 n1S7Tc9Ak7UkeqzjR6YdsMD cErOnBuwoCJk0W4GdDgdvrV I+BP97HGIyWD84FWy4GTI2c WxlPSdi QCGrW6NfdU0gWuTfSLFoTNL kOyc+PHRhYmxlIHdpZHRoPS jsPLXuYnVzhVctMM4hVm7vC GVyLWNv yWeaeSSwIuGsm2toMPThMTz eYQ6ktCcyZ5LciCD0ISAix4 i8Fh16R58lU5WdjDQ+PGNvb UA0fMZ7 uV1dYoUrIjI8ECuyP010FeU fqXObVjaan6krt1whpJk5Uf V5WNYmftOmuFwkONW9a1ScQ k74O45s IHdpZHRoPSIxNSUiIHZhbGl yhy5cgN8oRx6+DQIepKP6lZ O1sP6aTkYyTrS1XYyfP062E nRvcCIv Nqvwt2fuy7stbMh2AzAoHJV vkeThaGhvECF7j0XaVy83A0 WqiAbhi9NeJzp8av33hTIkr 6P6rZV1 A3SzBXFmaqvoyPHuuHphHL9 pXJLjxzxeXDBtsB4aJOCaK4 w4MkToBmA5TJbsA1FfoyO4T GJvbGQg ZSNrfZWCvL8zkvqkp5kqulz sWxPfGUXmAFu6QWq0RCVdhY hlTdSqUAZ8KeC3EGR6sLQhu R3seGum jsxouE6mPij+IOE2mTLiiAQ ENW8kDomgfPP+DPWtBGP0wZ wtRRxwQDHtlP3vGZDeL1f9H iAwLjA1 LExpJ9ZxnfN6PPSlvTCzCXV jlDAPwN7jeyxyy8epfzgmGj NwYBJaNPy3HEe8JCPshFgkD iBsZWZ0 YzW2DKM3fLKthG3lcHqbevx bqH3hXwz+ZvxybMslCDG8SD e0X9PyMhy8CZBjrQqmFD1xd GFkZGlu Wt4vrYtbgZhqOM8kXWHlvsg om476VsAmi2xuJQVohBFkRG zhQXL4R58gu2R1AZXmEPRrE PY8mEG2 bV3lyUsmlsoioWEkbWbfrzS csEqkMYxfCOquC879AWShuZ jmLpQrRYk6U8NdMlq0RPJom ItgUN4i zYLbXObfTx7boLkmdZuiAT5 vLOKxomaei851DcEcn0dqHN EssVWtHZjsIJG9B57kt3B8D CMwMDAw HJH5jQD7tT1geYmhixnmpFL mdDsgdmVydGljYWwtYWxpZ2 29CXHguQdbNbKyzCl0R9OxL tr6OURl uMavZT8wuYXtGIzyAu9ftZh elPhbIP3nMULjrhsxg418Wk Nvx2jaRWWphSXwIUpjRRF6Q 53vt4S6 VKDnAJYcNTN4hZL7gZ8xqIg nbjogbGVmdDsgdmVydGljYW myAIgxV567NPZspVeoLrGcv GllbnQg UXkhXZf5N6CyEnwaaJK+PC9 5IGZzHX51uDQghJXfb3tltN t7SoXvSWIpBBT5wSwxIGqtq 3JkZXIt L86hfXUtv1C9NYSgnRzidAP sAvQlgSE8uL1rKXcmszdrz2 uazkzmMucez2cphb99rP05I 29sIHdp ZHRoPSIzMCUiIHZhbGlnbj0 ffT4rIc9+QGPraPW9gRD6mF 3jDBObLcA5FWuuB604PaDcw CIvPjxj k1ceo4wltHd8PaW2VQAqacX viDneQXX2s0FiTz91A92fVW dpZHRoPSIyMCUiIHZhbGlnb p1xsI5c Ii8+QJQytFL0tHO4iK1bBmE nTcX4TZcoP994TnSpgJJmXm iyY30hX9YelNT+VEFpHgu9X CBzdHls XH7cjCHvBChzEf0dBTV2PfL yPcZkZSqnR1WpQNKtdosxis sziXW8RDRdYYZirL54Kp8yv DogMTBw lFQWlD7wohiei7zxziwcMcZ uFJJsCUu5DCa1NFThrWjbBh CcQXJ1XgD1SDI5iCBnbV0vx Glnbjog qG0jK7JrFUPiycwlSk62cJ9 nPuDoQkJ0XDoeTzo+U0FNUy wgQUxFWEFOREVSIExFRTwvd GQ+PHRk RMY4wTvfXOqbRKAdeA0fLMU kF2i6EwQbAqI8JPxdK2OfNG NlhjldPa73kZ9uOyKtRoT2B ZutD9Ox kzM0KLPvjGGxRWgtEAY0H60 fc1T6WVYqUMWwFOO9vMR1uL 1hbGlnbjogbGVmdDsgdmVyd GljYWwt BWiwK513EFAgmMecAnJgBaZ 3VrY8Iif3Q9RfEty7LHGgfI maTS6onEGgTQeaIm9xdTqhx MkyZA5f NBYuagitXKMyyC3mGJAigCE arSneHY7hKTBzancuu544Ko PjBYG5IPOmxHMpS6BgwG1lM iAjMDAw RGWfT9NcgNHiOOpgM389CBi yPvJ1GYZtosDkF0WjVSCubQ kuKpS7e6X6Ji90HKHEZSZud zwvdGQ+ JCPzCLM1uOdvIVmhJFIbnA5 sUKTaN5k9MrFhLnM2KKjkR3 KqHIXqtlkqWb34qJ8pXfQrY hR0LAma L2QguxE9MFPeySAoSAbpEUH 2S25tt7G4NCYiBXQlPMD1qB T8nX1nzYulqovchWNquDnjk mVydGlj UVomCLmgA131GHOcbIswRi4 OBSJ1H2TvIxt0EWNneXjhSR 2wjWXoRFyvLu7xmVvkxOxsZ A7gVEDv abtmMVNneU3pJOFazKVcrFc yAW2fPHDvhrxnf293AlAwNI T4NXLdwRLeT5OzwS3jPiHaL DAwMDAw V0WurFHjXKlzV337KIsdGtX 3RUYvkmTsN5QkEWNliLfcTw V4a0P6Cn0BYWmrnGF+PC90c z31R2Kc QmjpGbs1RICsOYD2eAH8hF1 yZIHqDXixg3Z5bWU6D9Glud Sxld8oy5diDQJkRBbvR19gb DSjl8L9 BWSxbQT0TNRwbZbzXkCrvD0 3Oyc+ZSLvbXiyi4JxVidve2 gjq3ndkAe5IhViGRBarbZue WduPSJ0 a0YnSo74S27iUBgfQOHhDNZ yIQTpMQSeuOvytn2itX3pBf 8+TWTzgBP7gHE9hE4gRrAfX zU7EVwc C779XaZeaTDpGuhim9lqf6i tjDm5RlKhJBRysgKpoRgePO B8j2XfAg66Q2VgkByen2WkZ sc9jy81 mLObx4Q1jYM0L3RyBWWnirx tiFVfkKwoMC9bUTAqnrcrJS RnyE5zBZKlZ1k8MwYeCkI4M FdxN5Nr hjE1WVAlxVVhMNIirTKUkF0 mdgkxm8rjtvphJaRcJZErDK x2GZe3EADszYayOyPuOQP1R aT6VAZ6 kXStgK2mnNremrpmdS1kZyw +QHn0k8kyuCNiCA8toFF2GG 02OY64dPJpd2D8rLM0N9MxB GRpbmct ddhquZM7BTAwYHAdpB94Tz8 cvVreSd2zISUsTYD9QHJaoA FgC1WatE7iLrTbTZLkUZBrW 3RleHQt LDaoN096XMrbSsR7AKWrriC eY1LkVHXayPysIyX2q0P9Td 7IDP74AY28XJ36oZGbm7W7p AZ1O8Hs ZHGmkmokqddhkYJ1UFDkMQJ mqC69Dj0inGiqMq2kRBMlSO T2DTJrrLEgG0RuxL0fYyPgO DAwMDAw K4LoqNJnGNppK097IItqBcT 3DZAzkcAlH6KmTFTslLbbBb L3j7B5Rr4FZn61VQ64IQ42u VVrk7Y9 kMX9G5RoUXJuvnpgqigjnBU 2CBUuXDVeiK78Rc5ykPcgRd 6eGGKgAVP4HEQopKBvC2Veh F9bMrYf AMQhORTwC4QwlRDoSZghU54 1JVcmXeY6LTZnwiSmR6HlMZ BiwEmkEiZ3q8K7Dq4UNFnwx gt8U6Ly PjwvdHI+LO66IYUlLS87wHH qgAFwx6lcfZq0UwSwBFByGA K4bPhuHLtod1AdIHLnR79xp ODfd8T1 IGN (more content not included)... [facility] Coding Summary HTMLBase 64 DyybdutmKAb5eJz+PGhlYWQ +OQ4QLKWqZ48wxCJepK1wP8 NMTElOSywgQVBQTElOSyIgb qDmIA0gwMJeSBHl IC8+AX2fSKHpLljviTMvh0Q 3kDL8P26jzb3wINrpsZP0MZ NiSnDoxgtho8nlyBd4CXbfG mluOyBt WXYslQ28KXD5tS30Ej24jVG agXYgj7jegWa5PaKeLMZrHL S5nLjlMIvpa2VcPJTsU40hs EEmp5R8 DVSghIfpdWYiCmMzpUH2jO2 zJOtnrfkwp3rfmksnDop5zl 72zNKtm4D2kTJ5V9XmovH4P GJvbGQg LnlpdJGWwY1kvdzcb4tubqz jNcMpIJLdNNt5NRp8LSUmnY kyGlKoGB59NFO9WWPxaiEoA 2FsLWFs xOcrQqD0e6I7Fv1SC7QFBdr xS9APTGQMEYurcGH+PC90cj 09I8VjMxkjBqp2RBAcQWU6z EH5kY0n RUGjQXnne7I7yNB5H8SvggL aiu1mm9heBUUiSIxhN36sbM Yxp3C5RVFzwEA6SXHwnLcoV iBzaG93 Oyc+GBXdyPzoj9JvNocmf9k ab8bozEu9PyymJSUnuuAccX zoIEL8n6HoQj9uAGYseCD9m IC6wS9f ZxYuJjX6YKqcI042XzOjtDK fEvqvR56nY4XynTC+PHRyPj u7SRQvmLgkQD4yI2IaHMWao mctbGVm nTwuHC8rWHYvbjrsZLGgkL4 eDMYyR3m2UkCrFcG3KTvuS8 VrGKPxnyocVm35fI7cYyPnX yA6BGmv H2OipvZ9WULxmXYzWOdaJZT 8V76wf9U7JAQxWDQxXQU4xM Z6tG1qgXncniyflFQrrDlzc mVydGlj LByvYHaxX911WXFsfLynEaK vZGluZyBEYXRlOiAgMDIvMD YvMjAyNDwvdGQ+WKSfGQH5c WxlPSAn rMJmWOmxWp8fiZqljUfwWA1 yHBZxitbuSTAyfY1gRMPrnT UllQxgZN4mMIDpepiwg198V iAxMHB0 VPSdzHWmV4NgrP5vNqUxGLT zTWPsZ8UbqIAbZNzoQ809ES eeIzU8GTUgzrYeH7ZeXRJpv WduOiB0 o8I5Ux0Ac3ExculjF8AlcGW cCwKhUjhjGFu4H9CcDmsssS I+VA31LJXfZB16BTe7MFO2m WxlPSdi MOBgP1HnzG6yCvFpCVTyJGW kOyc+PHRhYmxlIHdpZHRoPS axUGLiTcMbgDsgMW9wFq9jA GVyLWNv rChgyUDfCyEic0wgYDOmFSd rQL9ekUhlH4BkfOA0GLJln3 q0Vk39H46uV8IbzSC+PGNvb ZU4eJA7 yU2uFeGnBnV6EYtdQ125WwO lxEPsIoyql2bvr7vyzBc6Td Q9PDPfwtVmzRczRDZ8i9YgM a95W81d IHdpZHRoPSIxNSUiIHZhbGl cck0eiN6uKo8+RRMdiQC3gE X9tL5mNxFgAxP8DBqmU509Q nRvcCIv Ulhsc1wac5hdmKt5MlYdABB mnkQuwXefQNT9y2AvIt22T6 VggEvzy5QsAwu9vh77tHFxj 5K7eCR3 X0JwAOMkgavwmMBjyMkpXQ9 gHZNlovqyKJQnbR8cUDFmL1 b4JkKzCeZ8HLioD0QqmsP8T GJvbGQg TVSirRECbZ1ovjrcb4qiowr jXfElENHdTYn1LTa8YVJyaR iyUnOrSXH8ZmY5ECL4kMZiv Z6awHmt gqedkU8zEvc+XCO2vQEvdAP VRZ7rWtfduDI+ITObSKB8qA stQQqfZYTqnC7sZIKuH6z4B iAwLjA1 AIewJ9SgwbY3QJPvaPPvDZJ iaOGGtU8mfyafw2ncmvjfFo QtMZAfZFs7IXc4TARshSroS iBsZWZ0 BlZ8SXX9bECueS4nlRylqmg yaL3sZqc+YhchfFkiBEY1WQ h2K9RwGvs2AAHecGxhRS3tt GFkZGlu Ro4flCpftKhlEI9oIRWulsh rs513WnGpi8ydMHLiqMLdIZ lsEEW6R78ei0L9JSIrJFJcH YX1zRC0 hX4pmSflfxqhpJLmvCbxsfX nsMoqORzgIApoI653MPLkjM jnGsAxPHc8S9MsLdt2JLJoo ThkAB5m wEOuBRvuQs7nmFzzrKdmRY2 yMHNqeyuud017VlOgv2mcBJ SohEGeABsgYRD3J69qn6O8O CMwMDAw NAA7xWT0fF6lwFgpmrvjbIK mdDsgdmVydGljYWwtYWxpZ2 57CIFsfPewKyAhwWo8D3NwX au5GGJy eNwyXP3xvVXwJEcuPh3ahIm lkMpfFZ4uHIWnheucu965Wq Ppj5jeTCMkfAJoDAsaZEE8L 98yo2K4 ONQiEVCcIGH5qIM0xQ7ubDh nbjogbGVmdDsgdmVydGljYW psESprO251VWUbcDwnSgVvy GllbnQg CJcyKAw2V0KlIsamsLO+PC9 4MBReRI22kDYqeFIrg2bmgG m7XwDrXTFbVOB2cKqzKQztk 3JkZXIt R40qoAGjz2G0PZGunDxckOC tRaGetJS3iN8xHUdizokuy2 qqtuxeMocte8gvkm28gZ17B 29sIHdp ZHRoPSIzMCUiIHZhbGlnbj0 leK7tJq1+MEHrrMG1oSS3vM 7nQFOtDdH0XKqlX302PrAkh CIvPjxj y4mgl4eieKq8BtD2NSBicbX tjEkbBLL4w8BqYq93T94aBS dpZHRoPSIyMCUiIHZhbGlnb k4hmG9y Ii8+SZWggPS2kWI0kQ8xNiI tPvE6TBcmT776KtYdbFPfKp ekC23iY5XyhKD+PCMyWjl4H CBzdHls QP1rbDWnUIarRo0iVRC2VhH uAuCaRJdoZ5NrAVEsymhvyg tumNJ4HXUpIILbhF08Or4dk DogMTBw vJEKwX7dtgnek3jypmrzUpW vTCHkVOf6MPz7HISkgLabXg VzXEY8FrE7NWS3oJHwsA9wg Glnbjog hZ1pR9OnQXRklshdRp29tE8 xFcEpXzH4WQzqKwb+U0FNUy wgQUxFWEFOREVSIExFRTwvd GQ+PHRk XLQ4sZmrKTagIAYowG4kXPS zK7d7QqUfFtN4HCxiH3TcPH QkgoxxNo29dI6oGfYnLgH6C DppX4Cf pcI8EMXhnAXdLGouMQB7K68 yt6K5TBYaZQHwSTP2oKH8bQ 1hbGlnbjogbGVmdDsgdmVyd GljYWwt UHukF036HQSwbVraCbFpVlC 9UvD2Zps6D0ByLnx1HHOfcY dkGY4rvYJkHTxbNt9jaPfxg IrdCY9v HFAhyjhhBXAizJ5mCDPflHG yaByuML3nZMGzeujac045Xa IyIBV0YWQqsJAfS5SjlR3rL iAjMDAw VISiJ3JfsPVgLGhfO175SRi kOnR0UEKjqrMjB9FjLHIqxR tnBgM0e5W8Ue39XHTOBWAcv zwvdGQ+ BSEfBQJ2iRxlMZfbLGVleH2 kFFHyU8p6PbHjMnW1CXqhA4 FkYSVbtfwuIy36iS6mKlMvG xX9YUbx B8AkulW4DHOoxSSdOXsdEAP 2X72ja3R9BKFrDLEqOSV3uH F0jI1vdXubkfnwxWGraJsdh mVydGlj ZEqeVWkoW004JQXfaDwoKv7 KNRS6P8ZuSsw1KTEmsClcMA 9nqLCeNZieIi6igIbjzHtjH P2iVPNd bekvSTPadY1kBUZigEWzzQr aUC5vGSLxmqotm151FtBkTM Q7JJGiwODyG2YidX1bJtIeI DAwMDAw B7TypYAeKWnzE077EBhuBwE 7JZVwegHoW7BkYHPwuTtxDq I7m0V2Tq7XFLxnnKH+PC90c r16S2Xm LpbbRpq2ZYLoITG5bII6kJ8 aIDUcLLdxs5F3gOB8K1Afkp Zlcd6gi8peRTUuQJsyH74da KCqf5C7 JVOvqBE1AVCqiGrlPnAtrA8 3Oyc+TSTokOfew2CqWxsxc7 slw4bfuIe9BoOuYMGsaeGmn WduPSJ0 a6AmNv99D70tXLxdCFBsSCS oUCPlXSFnvUcikx1eaZ9lAv 8+RYFffSA7wAC5nY7dCbWmU iM1MHqz T936SiRzvIDsBlsjn7ylf3b nhPg4EdKtXFEvuuRvfThjJH M1n5VpFp36V8TowYfzd0YdU lz5iy35 qPZec3G2dPB8G8SsHIZwpnp teMQhdHztFM1lJUEtixtmGQ StoM5nHSWyN8n0ViRwAyS1V BsvV5Xo nqU3LXDtxILbDHSgqILXlH8 nmkdby5cgnfszTtWtJNUzDA x2SSc0COMlpEqvEaWoAJH0Q fU5NLJ7 uENlyI2wsTuwlmcfqE3fBtq +XDs9g1wzxBLnVA5frUZ8UV 40DZ30iQXkl9O4gLB3Y0ChD GRpbmct lkpmpCN6QJRkIBUqsH11Ey4 jfFzcRd8vONSgTGW1QHKbaG WdR0JszU5mOsWeBPTaNBRnJ 3RleHQt FZavR590GIciSnB9LQHngrR pM2FxCGXovZfjMjN0w5E9Gn 1QMG56DM42NQ96cPVoi4X1y RW3G5Bj CRCmhfheryamiFI6QOPqPQD upH79Vm3cxXcvAb4vKBEqJO T0EXRxrDUxC1FxpZ3jLaDnO DAwMDAw J2XkfOWqIVxkU362EJuqTxV 4HLRhdiEpO2WtKCYsvRnqOy G9z8J6Mv8QWn61MS52BB63b SMwc5Z1 oWP3B1HbEZJsxipdwbglyAC 4MUTiEAHnqZ54Hw6lnLwdNs 2kOOExKXA3UJBrjYEoL5Sgm N1jOqMt EHMfITArP3JsaGTgZSqiW11 2ZCmoDlV1GRJodjEkC0AkSN ZrsNkkStQ0s7G2Hn0JNImdo gq4X4Ks PjwvdHI+DF49NQMvAP17yNO ajOPkv7dqkDc6JpMcOROuBV N6oMiqGHovz8HoQUVwZ30la GAww3Z1 IGN (more content not included)... [facility] Coding Summaryon 07-11-2023 Coding Summary HTMLBase 64 LfclcajhSOa0wYc+PGhlYWQ +ZH7VVQMvO30acISaxT2jR8 NMTElOSywgQVBQTElOSyIgb hYvZP8voZMjMGNn IC8+PA2fVMFaCgsuyPAqw6X 6aPG9B77vch7aRKxxqNB9CP AxRkYexzuyy1bviOv5XBffB mluOyBt ZKVqiA81BXE0rW21Qu71wAL mwNLgr0bztXc1LlTnNLQbNG D6uDncHMqyd0PjBNNeO01rv OSom7I5 GXVorFwrdHQiUxPqbGP9zV2 aPLreyrzwi1gyemzdPry4vx 00xSLbq0L4eRM3F7MwfiD6C GJvbGQg DwlukPLCpT1olxqyf3zpwxx bCaNiZJCkXIe7VRj1KLNauZ abVrLxCH53QCT8LUBcpmCsN 2FsLWFs cEtzYiG6y2P7Hr5FI4XCKpk qE0XJOVSZCAytwNL+PC90cj 48J8YlCsdgKjk5TEXdUBH8w KY6aE8a FEHtPSbli3G0wZE4K1OfafK jze1fo3bmOJNlYWfaZ94mtZ Bza0N4AFRzsQC5RFMmzZylQ iBzaG93 Oyc+ZTGodOuck4GgRaper5x xz8blvSj2IixbCWWcxmMwtB vaNZY6r2LaKq6qYYPhxOU2i BX9cR0w LaJkNsL3IOyuK839BqFxwAN oJvdnC05xG5KjiLJ+PHRyPj s3UKFbxMbuRK5sS3RkXXEyc mctbGVm kNvzGU6eZSNpwjioGAWzmN0 hEYBfM0i2KaMzBkF5CEyuA2 ZdVHSfhtwgPn77lO5kJcLuE aC6MYtd B2KtrjE8LASdtPIaXWjyFCL 5L14fk3N3WPWmAFFeRWT0nH Z4dC1emTucsuvdtFAipGcey mVydGlj TYhoGHwxO984TSImgQyoPjF vZGluZyBEYXRlOiAgMDIvMD UvMjAyNDwvdGQ+MXDqGAM1g WxlPSAn iPHhSJgpLi8zmAwhtZauME5 zGIVrggeqTCFacC2hJVFjdN CqnCxcKW9xZKOmwzqfp278F iAxMHB0 MEKhuVNgC4RgbC9jIyTaCJL kQUEfC0WavCNbZYykJ258FB giZyY6AWAwuhWaJ4ElUBVhg WduOiB0 l7A4Fk1Ce9QgllbwS8ScvTK sHoCbJeijGSf5P0OoZwirjQ I+VN42GRHsZV75BUe0HBX9x WxlPSdi SWYpA7RskL1eZfYtTZXwWUM kOyc+PHRhYmxlIHdpZHRoPS auNFXrDjYqzJbwLA9rMu2nB GVyLWNv gZcuxPHbVjOom0iqROJnMMa qKT4hcMhbR3BhdQD8MATvp4 k5Jl39N32uD4LhoJF+PGNvb RP4zYH0 sQ7hEhQxIqA2EPtoO349ZfH zeDFzWjsfw6uks1ekjTl7Yg G7GRDnyyMfmVwuLHX8c1WhO l29Q91k IHdpZHRoPSIxNSUiIHZhbGl cfp4hoX4iSl2+DTIbrTA8qL B6jQ7hBwKfJfS7DYusX300N nRvcCIv Hdrql1sxu1twmIv5PgLbWBR rsdWhwPfsQIY0s3VjXh01C8 RluOzqk3YeRuf0kw14gKQoq 8Z4pOA5 M3ZyRKAlpwzdrCJnuDylNJ2 pBPPbwubwWMIypL9kYCXgZ3 j0ZoAsLmG6HIchO4DyijF6G GJvbGQg ZFEfrQFPhJ2ngdzul6vzlqv sVkFhHYVlKCt3GKr0MXFhrV snGeTyKJS7SvL5MBH4zUEql S2niEbn nlpzbI6hGzf+DNV6dDJseLR DTJ1rDrkujUE+YHHmDDP9xA akGVftCTMvvI2hIAMqF9t8Z iAwLjA1 LVfhN3SgfaX2JESxkDSfOVY gmRJUuQ7kmwtex4qkidleUh FnPFYuEWi3UZd3HLQpuKsfG iBsZWZ0 MsT8MOX6uOBjkP5lxCjhgrn dlX1pXag+OnqbePnpZQI6RD e4I4NtEhk2CXOhdSbiNN9oe GFkZGlu Hu6sbDbokZahWS7aNSZstgi ty109GhRtx7afRVIdkMPsTU pnMMI9W03hy4D2ZNKcEEMxO FU6hMW7 pD2nhUazysgyxCJhxOmozfM ujLndKQrbOHpiX599XAVwgK wmYpVxCPv8T5WpJjl9CKEex OhaDT8q yYWdISopIa1xuXljbCvxNC3 sZJOmhouly691UiRyb5npUC MzsBWzQDycPBP9L49vz6O7C CMwMDAw IIF5bAR9kW6qgFmdafemyDY mdDsgdmVydGljYWwtYWxpZ2 50TSUfvJgpHfQdkBq3T6VxO md0IBIh eJpmCI1euLEuOAlpQt2dpKq zkKfeDX2aGPJrgfovi665Ef Glo9oxYTBhwRIwHDucEWH2H 86aj5Q9 OJSnGHZaNSB6sRX7iO7krVh nbjogbGVmdDsgdmVydGljYW wdCGccH011HYKqxTzgSaLhz GllbnQg ULrzYHo9T5UaYbioeFS+PC9 9PDHtPR01kVZrtYNej2hsvQ d6HbNdGRQfQVG7uQkpUMmal 3JkZXIt J20ftGVbz5B6BDSekKgohAQ zYoKvuYC3xW0lKBisodche2 thdmkyJoajy9himr43dE03O 29sIHdp ZHRoPSIzMCUiIHZhbGlnbj0 qpW6xVt7+SPPvjQO0sGF6aW 1mAETfDvD8NJwoZ299AsDuv CIvPjxj z3zed0sjbJz4QjE3RAWkxuR qcFcoLVI9t8GoHt99T47iHG dpZHRoPSIyMCUiIHZhbGlnb x4pnB4o Ii8+TWDofGY7gMR7cJ3tWnU kIoL2ULiiX338HnNxaWWzMn hbO37uW2YbcLD+NDSuRlx6P CBzdHls IH2xhOUlPFxdFd3eAFJ0OcE nWgRaYPmhO2RtMWGrgimbrb hgbLS0DKToDZGzwY23Bb0fu DogMTBw qCJAgR0xlpipx5jyrksdKzM mAQEbUIv9VSm4WQSdkIanNf ElYXZ2JkV1XDJ8xUKmbQ6vy Glnbjog lV4aA5GlXJAsxmpqNs50mF0 lDiFlWeK2IArgHtk+U0FNUy wgQUxFWEFOREVSIExFRTwvd GQ+PHRk IRG0mBfvHUnyMXDdnB3lCTZ wP9m6LmZjIyH2XLjjE8TaFN VfqvftQs73kZ6hXdZxVaO3K PbzN9Bv voA7ZZVebNKhNObdVUN0Y17 nr5X1LFXlALHzOWR1xWE9sP 1hbGlnbjogbGVmdDsgdmVyd GljYWwt PZpeS956QVGouUygQtFxIbK 4BmX8Gpj5R1QjRbh7ZQDliG hxSV0xxNWtLHfmWk6icVpoj NeuNL0c OOEqfexxGVGbgL1hQXWuyIN vyEmoVQ0nWUEryjgor753Qw ThECD8RQWmaSBaK7BtkQ9xL iAjMDAw WODgJ7AlvBBuNShhO913OYc rFqF7VQUfhnKxT4TzKWVoiF ikFsG5w4T4Su95YYAOBAGty zwvdGQ+ TNYcWGS4eZjuGNnhVEOfyQ0 mMTUpI0l0RjHuIyU9ITvzR1 IdECDafauzUm49jF9lYkNhJ zK5QAcb X9KrxgA5UKBugWXhDSdoUTT 5U43qz0L7AGQuUVLuWLB9pZ C0qO7ukQpissqqoQVzwFdjs mVydGlj LPzxWNtyN444TQVowNsjEa5 GXZG5B4YtKeo7WJXriMzqYF 8fnCOkEGklZb8nzGoehNvaZ W8iDPId rzmgVCHjrC1aRXWgfPGjzYi oAA6pNFKcfsmrw351PlUwEB Q5HDMupJGmA1QzqW6wFyKwE DAwMDAw H9AicLJbJTamE472YHwfFoL 1BEBxnoCbP5MmRDPhgUijRq L4y3U1Qw1BOArfwTA+PC90c h62M7Lm ZgbwPnp0ZCSbGWG4iHB5cA8 lCTEnXGvwn1J7rJS5A4Wana Msls6ob7vdCXNfPJegQ72xb MHzy5W3 NUEoxEK8CWHguGaaYpOtvR6 3Oyc+EOBouRowi7PpXnuvy4 gqf8cnwSj0ElAsGPEwdmGfe WduPSJ0 l4EjVi86M39aESorMWTsAVQ hKIUfRJAviLphhy5pxO6yBu 8+WIKvsEP1oUZ6qF2iSuPaS oZ2RWoh F497ImYgrRCtSzrsf3wvb4v jeTn1PnVjMVPrbpWkvDlpIL V6r6PmZm66A2GlvIhst2RbP om3jn38 bIYva9X0pYH9T9NnWRBkgxy kdEDvuYmuIE3pYAMgpupbTW NadV0qHQIuY6v0WtSjQpA1F ZikV7Bu tiU3TRHtaBMoYJObxIGXvI1 segiep2syjhikTpTeFXPuPB l9DPz1MFKxxCmxImYdQSZ9A qJ3MME7 mUUpdC9xoEyrbktsiL9jZgb +ZKa8k7xtgIKmNP4mgKJ7IE 35XZ32bEOlk7G0nRP6E0PbS GRpbmct zlocqYP6MXQtELFkcG77Ib4 bhPjkXx5mFOOeUNS4HWJbbU HxS1EhdD2oBzHiXOHeUQMnL 3RleHQt YJsrA656DLniIrB4FJWktwO zC9IzZSCfzRwlLkB2m7N9Kt 7FJR85YH11BU08vOMzz2T3k GZ2A5Cp TJKpmntmasmwrSX1LETjLHQ gpH90Mn2cjMxdXb4bYKVlMT C7DNBkaUAsI1FmuA6iAkWjP DAwMDAw C1GnhJLqRJmoQ948XOwjLhT 5LXNwjgEuV0FmWNDigWfvWp S6h3W9Vu5PSn74OS70YJ11s ROwa3W8 zPJ4A7FvNEIfdjlijjtnpLC 1ZYJmLNYvsY16Um5xzEecHo 5uGKDbUPT4JCYruDWmL9Bsf S7iXqEy AUSfOPErN5YuuWHbZBdiX29 9OQucEcQ9CPBeikVhY2IkFZ TwkDyiAcG7y9C9Td2JLAuve ip0K3Iw PjwvdHI+IH17GGHrSQ27hOF mtKIfs8iasAz3FzGeHSIoHN P9fZszKXkwj6TeBKVsJ64yk RFqo6W7 IGN (more content not included)... [facility] Coding Summary HTMLBase 64 NohdclcgUAt1sHy+PGhlYWQ +ZC7NDBSjF53cgZDojT7pB4 NMTElOSywgQVBQTElOSyIgb aZfGA9ziSEcDHZh IC8+IT0qQTQmXxratVXsj0Q 5sSK6O29sde6kEQczlAW0BI NyUxZtdmvuh4mrwQs7EFrrH mluOyBt QXBmxI19TQM3yH37Az38wUF qdHBep7pkoAq6VrGqYTOgMV N3mRwlZErwn6XdQTEpU18xv KAlb1G9 QKIhcXsepRVdIpWpnNY2vE2 iMXrjasjzn5unyhzzIbc3mw 55rDRpl7F0tFR3M7MtbzZ1X GJvbGQg UcfomAECtT2rfnctd5ebwnt nDmIvLSYfDJb6WIh7GSQyuK fbIgNcUO11XVI7WOVrpxPdI 2FsLWFs jOdjUcK5u0J6Kr9MB1UWUxe vK8VUZYXJDVeksTF+PC90cj 13W5YeHtrtLqy9YRTaIBV6z HY9vA8s INQzOKaxp1Z2qZQ3F2XrdvD xho3ps7vvJPMaXNiqJ67xbH Vyh1W1BECeiFA1SNFpoVcgQ iBzaG93 Oyc+NRGesVwpb2NaVvlgj0u lp2fyhBa0ZazjDPSjniIwtJ xoMLB0b1YcZp0dZOCerTQ1n OK2oN5q XmPrMjH3AUeaB164NuQeqMU rOkfdR19wS9NqvAS+PHRyPj j5MWRxsMjlBZ7rL2UbQOGfg mctbGVm fXwpHY3zGQTrubunYTQdjF0 gLXUyI1k1BhVpXgY5LLioC2 XpAEFtyxfyBu37yP8dMpFyB yQ6WPir B0QctzB3CTHntDGsYWitGFX 3U87ns9V4NVPwWSVsDBE2yT Y0oU1aoYxvwuawjTMmrTrei mVydGlj JBapITnlR539FAQamEesVpE vZGluZyBEYXRlOiAgMDIvMD UvMjAyNDwvdGQ+LYGnTVS7e WxlPSAn xDPxCRdkMm8gmBewxDeaUS5 eSLDdfjxqHJVnjC9nLNYstY CqnXfwEI1hGJWybczjk411P iAxMHB0 AZKzyJVaV2AfaS9iLtVwGIH jEMBgD6UvbZYiIMryO140ID obGaW3LCJrzvWiW8AaFZSab WduOiB0 p9R1Sr4Ne4DfjhngB3AdlHC kPgNuUuozFBr1P3FbRgludF I+QF01VMLcIK25QDb3LFH7v WxlPSdi NTPeJ4NizI0gCoAvJKCsXDT kOyc+PHRhYmxlIHdpZHRoPS neOHYsKwHneEzuBL5bUy1uT GVyLWNv pIavyCRbDkAmb7fjAOSeMRl mFC7hoRlfK3QhxNA3BDWwj9 l1Ch88A47yD4YlhUE+PGNvb XG2jQW1 mX5rGbLcMfB4DFylI127MoU umSXvKdcer9xfe3wciQv0Ox O9VGWbijMxvQcfPPQ6l7AsS n51U68j IHdpZHRoPSIxNSUiIHZhbGl iqh7uxT2aOy3+ZRHucWR3kZ C8oS9zTnDwQtT0CFqfB123U nRvcCIv Gyizs5vqz9fluEf1NaSsGNU hnzYfxTtlRKI6o4FeGg64L9 VjjPmbi8RsGxz6fz12vWXyc 3R5sJU1 K1KnUTQccztyiKXlvNieFN3 cLSKkoshmRRNeeF3dEXUlC0 w8DeUoNjG5JJxuC9JlfmC9B GJvbGQg EOYecCJXbN9uqtvbg0rrjnx hBfDhHHNgVYm3KFf6BXFhxD naAxOgRFC8CqB0WOI8iVAmw R3lwWkc owzkxY0gFrm+VHG1gNEobBE XCH6hBgiekJS+EXOnWRK4qK zqNQerJKNxsJ3oJNGwQ1h5H iAwLjA1 ZZfaV2PpvbN7UZXnvKLkBUV iqIQFgH4thvatw6ocxgzlRb IwKEOtXUi9EXo4JCIakOjcC iBsZWZ0 OnQ5UWC2tRKyaZ6yyIsjsqc emN4lQmb+TlmwoKpaINH2GZ z9Z6TcZkq2YXHiuJeuRB6gk GFkZGlu Co3zaInczDvaSG0xJBUqjxf ka294YfDky8hdKLWvyNKzJX orEBJ6I42ky0N0KPRjGMPrB TF8rYY0 yM7hpXheazsplRNvrFawmpU mxXcyBAyvDRlwA131ILMumC zkQvGeNAz3W8SmZje0PSYeq RhhTJ0l dTRcYThtTz6jiUowySesNA8 dAKMktntzf581OyGzd3euOR HuyXTqNKxwZDB4K96tu0F7B CMwMDAw TEE8tNS7sE9cwLoiiwedfKW mdDsgdmVydGljYWwtYWxpZ2 82HOZlnKlfZyRkeVo6Z1WcJ uo9PWHu nVfhMH0ziVLjEUauTz0dsFj kyTseGD5xFTAvoourx603Fr Ncp2hcZKPcsEQhJOokABS9T 07cf6L6 EBGeYDAbYWT5vIH9qN6xmGj nbjogbGVmdDsgdmVydGljYW svOVfkO121TGNloQpyQvFow GllbnQg HXevKCi1N9IjXtmusDI+PC9 4FUMiMX96aJQbwOCiz7lgvB n1HoYkZBJiODI1eCzcXCegp 3JkZXIt B61dhRBnv4M0KHLwrVqqfCU aCfYbuZG5lL3qLEjvwgzgt3 rtyzjbSmccu6blqk63zP98E 29sIHdp ZHRoPSIzMCUiIHZhbGlnbj0 rbB4lYa8+RDOvyOI8tFA8gW 5uVQGvRiK1ESaoL492VdToc CIvPjxj k6ils4yomCk8EnV7NLDoltN nkQksYMT2o3TkOw31G13lCI dpZHRoPSIyMCUiIHZhbGlnb e8gnM9p Ii8+XZZdkGQ2iLF0hR1jXaT uSfU0HSijR467RdNpeYDlYi zyT55iJ0LeiFZ+CQSdFat6Y CBzdHls HN2bxRNfBHaaXo6cUCC3YbE tNlKeOQqqH5LlDJJitzwqlk fszMR3ANQdLSDylB05Xa1hc DogMTBw yEDVpZ4sdpgkn1eidujnVfI jWCYiTLj9ACy5HTSqcXyfMp VbSEY5LjB7DYW0pUTxhJ5ax Glnbjog wJ8nR9KxWZMhcymhQi06eH3 bXeYqCoR6YDeiWej+U0FNUy wgQUxFWEFOREVSIExFRTwvd GQ+PHRk XXJ9wVvzQTerYUKopV5eSKG oY4x8XvPsDxW5NJbzS6ZrUB ZwqerdTj39qQ3kQmHnYbS0L PkyU4Ss kpS5WZWshJQzDUcsUQS5J43 pm6I7QJXmHWLvTTV3aKD8rH 1hbGlnbjogbGVmdDsgdmVyd GljYWwt KSgiH511RUWliCiiJwOkHfS 3YbX1Mqs3O5IgYao4CAQhaF tjRG9hqASzXKjkRs5kjWach JdkPE5d YGTmlvqoRDRevK9bUVMxyRO wbZrcDI4dUEIjvskxh902Ei FbMOS0FLSpcAPyB5OrlT9lH iAjMDAw DZVqF7EilKQrTNakV109YEj rChT2DAJzouPwS1ZvDRCxeI jnItX6s6W9Ci91RKAQVEWxo zwvdGQ+ HBLsISR6aLnkWQtjICSueW6 gWIQgW5z3XiBfBlO6QIqvI5 PzREYtxwwiLq53bE6iVrWuI sL5ZKhz A0RqioY7LNTdwOFkOHkqGAJ 5D01oh6A9NAOwBZMtDQC0rT W8nF7jgNdpifnmnHBmtNfto mVydGlj GXefKAqlA304CZYtqXiwZa4 GHHV7E9SvWwi0UQPbmCmyPR 4psQCbEGuyUm7biOmlkHxlU I9eWVKc litaUHSrmP7wIGOxlLPmcSy vEI6nBGImlnxwd128MzEvMI A4PASucUSjF6DskE3mRoXfK DAwMDAw M5GybZLcIUaqZ973SPyiQfL 7HYSqqlKsX1XuFQBxlGnzLm J4g8U1Zp0LYSyhyED+PC90c w53O1Qw UfskNyf9EEKxZCR4gWA2nE4 eWMUqNNovk3G6lDV3H6Hyow Wkcm6dc8mqXATeCGmkY03wq AIzd4J0 LNBgyPV2CRJsuRgwIbJavE2 3Oyc+TDDsgQvtr5UtHtytv9 qvu6annTx3FyOgYEFlbwCdp WduPSJ0 z1LiOv43K01gGFisKNZyBKD dRGMeQWCdgRhrbo3wbL9dQz 8+LMPrfBE6pCC7pO5sWsOfE kE2LNma B566SbNkmSFqJsitf3iht3q wnFp1AuTpWOVjycEtuAzhMF W2x1XzNk28C7TwgAjhy7LnB iv6de25 wQIlb2J4fDF0A6JdUZXbmwf loQKxnPsrXQ6tAKRlefgcFU RteG6xUDUoD3k8KdYlVgY6T QiaJ9Up ynU7HDKlnPSiVOAudUQRxP1 jjyuhx3kqvggtWoEfWMAnIE m7JGk3TKOnxBxzPhAcYKM8M eC3NLA8 nKRvfP8twAarsenqwH8jCde +LNg9d0bzvWNyOD1kpLP9ME 93UT05mDMqm7G3tZO9X4ZjZ GRpbmct poaadBV3PRXtEGNdgG30Sc3 wwIutGn3lFBRzNXO3NEBnmM PqH7RurO3gPeLwLBFaIRCzC 3RleHQt WTspM600KDruGsT1FCJfkpK uM5YuYGPihTipCjD5h8P7Sd 1IJA27AP39DM82zDKaj3D8l EM2B0Oi HJNbifjufntpxBU4VTXzIDT bwT87Gg3phHorPx8zZNXeMS S7LOEqbPTzE4AgtX7mHfPmY DAwMDAw F9YqgVTgXPrfK771GBpnGtY 5CEOtaoAyB9DlXIFduPihDg L3i1S6Hw5GLt11KP58BL72q WPvg4J5 pTS6U6BuDIYlesgcqffrkHV 5VVZcTQMxpC54Oz8rpKwjLw 4uNFGnUIE8EPHjkEAqX7Fvf E1eUhFl BMZuLQEyX8FluXQyRXeaC48 5AMmhPgS3VVJhmtDpF7XzIU IoqYbyIeU7z7H7Qm1HXYbbh wk4Q9Wm PjwvdHI+TG38YRIaDD83uEH ptRVav2bjeLk8DtPsPHCnTD J6fSaoOTrwo4SsLLGtL81se OVkm7N1 IGN (more content not included)... [facility] Consent Formson 07-11-2023 Consent Forms [id number] TGTIFF [facility] .Auto Diff 1on 07-06-2023 Auto [place] % 7 % Normal 12 [facility] Comment on above: Performed By: #### 1 [id number] ####[facility] (DEFAULT)[address] [place] [address] Baso Abs# 0.0 x10 Normal 0.0-0.2 [facility] Comment on above: Performed By: #### 1 [id number], [id number], [id number], [id number], [id number] ####[facility] (DEFAULT)[address] [place] [address] Basophils/100 WBC (Bld) 0.1 % Low 0.2-2.0 [facility] Comment on above: Performed By: #### 1 [id number], [id number], [id number], [id number], [id number], [id number] ####[facility] (DEFAULT)[address] [place] [address] Eos Abs# 0.2 x10 Normal 0.0-0.4 [facility] Comment on above: Performed By: #### 1 [id number], 7473740, 8012154029, 69176503, 5728734931, 7845652136, 25419387 ####[facility] (DEFAULT)[address] [place] [address] 79490 Eosinophils/100 WBC (Bld) 2.9 % Normal 0.9-4.0 [facility] Comment on above: Performed By: #### 1 [id number], 3460691, 6369248972, 38682204, 1589982157, 3440917809, 20761865 ####[facility] (DEFAULT)[address] [place] [address] 46800 Lymph Abs# 1.7 x10 Normal 1.3-2.9 [facility] Comment on above: Performed By: #### 1 397812326, 5592930, 4012143331, 03736450, 6225318589, 1028303005, 38190538 ####[facility] (DEFAULT)[address] [place] [address] 21712 Lymphocytes/100 WBC (Bld) 31 % Normal 14-48 [facility] Comment on above: Performed By: #### 1 048369503, 2331097, 4403778640, 57803519, 8476733984, 5765286049, 69139200 ####[facility] (DEFAULT)[address] [place] [address] 48120 [place] Abs# 0.4 x10 Normal 0.0-0.8 [facility] Comment on above: Performed By: #### 1 397426948, 0102886, 6461919668, 48024110, 4990084740, 4616353408, 03938579 ####[facility] (DEFAULT)[address] [place] [address] 27530 Neut Abs# 3.3 x10 Normal 1.5-9.2 [facility] Comment on above: Performed By: #### 1 443361366, 4139806, 0675756239, 32608954, 3597017491, 3825441258, 03910934 ####[facility] (DEFAULT)[address] [place] [address] 67603 Neutrophils/100 WBC (Bld) 59 % Normal 44-88 [facility] Comment on above: Performed By: #### 1 215847356, 6381101, 7467535923, 14019702, 8612453877, 7356733222, 29353860 ####[facility] (DEFAULT)[address] [place] [address] BNP.on 07-06-2023 Internal Control Pass Normal [facility] Comment on above: Performed By: #### 1 338322767, 2450087, 5636988559, 70414526, 9141167293, 5114155773, 06935587 ####[facility] (DEFAULT)[address] [place] [address] Natriuretic peptide B (Bld) [Mass/Vol] 6.5 pg/mL Normal 0.0-100.0 [facility] Comment on above: Result Comment: BNP results greater than 100 pg/mL are considered abnormal and suggestive of patients with CHF. Higher BNP concentrations measured in the first 72 hours after an acute coronary syndorme are associated with an increased risk of , myocardial infarction, and CHF. Performed By: #### 1 [id number], 5875546, 8913130085, 51441336, 5393887518, 7034126310, 26150781 ####[facility] (DEFAULT)[address] [place] [address] 10837 CBC w/ Auto Diffon Erythrocyte distribution width (RBC) [Ratio] 13.0 % Normal 11.5-15.0 [facility] Comment on above: Performed By: #### 1 858924557, 9702427, 1876549512, 34744687, 4201454150, 9889507863, 68936229 ####[facility] (DEFAULT)[address] [place] [address] Hematocrit (Bld) [Volume fraction] 43.9 % Normal 34.8-51.9 [facility] Comment on above: Performed By: #### 1 466287219, 8182792, 0273368522, 84912137, 5086324675, 3395990712, 13735003 ####[facility] (DEFAULT)[address] [place] [address] 43665 Hemoglobin (Bld) [Mass/Vol] 14.9 g/dL Normal 11.8-17.7 [facility] Comment on above: Performed By: #### 1 136453941, 3505321, 8388473718, 64379112, 9592602807, 3112737879, 89360823 ####[facility] (DEFAULT)[address] [place] [address] Man Diff? Auto Invalid Interpretation Code [facility] Comment on above: Performed By: #### 1 401954943, 7373722, 0200592219, 56537961, 7275949912, 9776211410, 01354690 ####[facility] (DEFAULT)[address] [place] [address] 62437 MCH (RBC) [Entitic mass] 29 pg Normal 24-34 [facility] Comment on above: Performed By: #### 1 299581635, 3644515, 6654008397, 71864261, 4222352380, 3166453266, 68618988 ####[facility] (DEFAULT)[address] [place] [address] 49519 MCHC (RBC) [Mass/Vol] 34 g/dL Normal 26-37 [facility] Comment on above: Performed By: #### 1 489254672, 3077076, 3148079176, 19870106, 4327878810, 4448443787, 02391759 ####[facility] (DEFAULT)[address] [place] [address] 71317 MCV (RBC) [Entitic vol] 86 fL Normal 81-100 [facility] Comment on above: Performed By: #### 1 221504218, 1440678, 1514671624, 86859162, 4395811842, 6167775786, 98247054 ####[facility] (DEFAULT)[address] [place] [address] 10687 Platelet 100 x10 Low 138-427 [facility] Comment on above: Performed By: #### 1 604798719, 2056550, 6173852404, 65954941, 6118348530, 0933823575, 24951146 ####[facility] (DEFAULT)[address] [place] [address] Platelet mean volume (Bld) [Entitic vol] 10.9 fL High 6.3-10.2 [facility] Comment on above: Performed By: #### 1 450581895, 4294818, 6493627128, 38704580, 9184302576, 2563289768, 18930986 ####[facility] (DEFAULT)[address] [place] [address] RBC 5.11 x10 Normal 3.70-5.30 [facility] Comment on above: Performed By: #### 1 947043461, 1297061, 8697980815, 86808800, 8321681159, 4675614251, 01170298 ####[facility] (DEFAULT)[address] [place] [address] WBC 5.6 x10 Normal 3.5-10.5 [facility] Comment on above: Performed By: #### 1 782069201, 1525729, 2830202691, 23851053, 3438860625, 4568352028, 72431984 ####[facility] (DEFAULT)[address] [place] [address] CMP Standardon 07-06-2023 eGFR Non AA >60 Invalid Interpretation Code [facility] Comment on above: Performed By: #### 1 114662265, 2686030, 7641943138, 57074892, 5024546298, 4242866430, 63771708 ####[facility] (DEFAULT)[address] [place] [address] eGFR AA >60 Invalid Interpretation Code [facility] Comment on above: Performed By: #### 1 [id number], 6971033, 3733480223, 34931530, 9043328217, 1448782698, 21726045 ####[facility] (DEFAULT)[address] [place] [address] Albumin [Mass/Vol] 4.1 g/dL Normal 3.5-5.0 [facility] Comment on above: Performed By: #### 1 705266604, 2126045, 8608075473, 73514573, 2100618814, 6454798272, 86830383 ####[facility] (DEFAULT)[address] [place] [address] Albumin/Globulin [Mass ratio] 1.4 {ratio} Normal 1.4-2.6 [facility] Comment on above: Performed By: #### 1 120584072, 1676669, 9152546138, 14933727, 6593756127, 2050703277, 51239042 ####[facility] (DEFAULT)[address] [place] [address] Alk Phos 56 IU/L Normal 32-91 [facility] Comment on above: Performed By: #### 1 257197206, 7720944, 8262826811, 78567439, 8938127568, 3702343845, 28181931 ####[facility] (DEFAULT)[address] [place] [address] ALT [Catalytic activity/Vol] 73.0 U/L High 17.0-63.0 [facility] Comment on above: Performed By: #### 1 592515578, 8256290, 6223333483, 47290496, 8254979381, 6267322260, 90900623 ####[facility] (DEFAULT)[address] [place] [address] 00943 AST [Catalytic activity/Vol] 41 U/L Normal 15-41 [facility] Comment on above: Performed By: #### 1 043201196, 0665123, 3812694070, 48768175, 4337427056, 8657847850, 68629794 ####[facility] (DEFAULT)[address] [place] [address] Bili Total 0.7 mg/dL Normal 0.3-1.2 [facility] Comment on above: Performed By: #### 1 759176622, 9415861, 8099718195, 96886026, 5989398685, 2282199132, 28728631 ####[facility] (DEFAULT)[address] [place] [address] 49936 Creatinine [Mass/Vol] 0.92 mg/dL Normal 0.90-1.30 [facility] Comment on above: Performed By: #### 1 428568260, 4020174, 7409165094, 90631669, 3102787957, 7076334657, 54012795 ####[facility] (DEFAULT)[address] [place] [address] 16732 Globulin (S) [Mass/Vol] 2.9 g/dL Normal 1.5-4.3 [facility] Comment on above: Performed By: #### 1 633279445, 2788322, 4351027646, 13849443, 7335992109, 4801254101, 54285485 ####[facility] (DEFAULT)[address] [place] [address] 39226 Osmolality 284 mOsm/L Invalid Interpretation Code [facility] Comment on above: Performed By: #### 1 791897073, 8641495, 1110979412, 25820966, 9557080938, 5874726509, 91810059 ####[facility] (DEFAULT)[address] [place] [address] 14947 Protein [Mass/Vol] 7.0 g/dL Normal 6.5-8.1 [facility] Comment on above: Performed By: #### 1 019412669, 9383994, 0713600977, 37260890, 8254322854, 9321845894, 40512711 ####[facility] (DEFAULT)[address] [place] [address] 10389 Urea nitrogen [Mass/Vol] 25 mg/dL Normal 8-26 [facility] Comment on above: Performed By: #### 1 179444046, 5830297, 1726101902, 54203806, 5402890370, 6975853602, 61257185 ####[facility] (DEFAULT)[address] [place] [address] 53616 Urea nitrogen/Creatinine [Mass ratio] 27.1 mg/mg High 4.6-16.2 [facility] Comment on above: Performed By: #### 1 113182230, 7883935, 9363499788, 41944901, 2197667325, 9133273645, 64583007 ####[facility] (DEFAULT)[address] [place] [address] 18229 Anion gap [Moles/Vol] 9.7 mmol/L Normal 5.0-19.0 [facility] Comment on above: Performed By: #### 1 898242529, 0533850, 3972382826, 28901795, 5287391540, 5665410556, 50385078 ####[facility] (DEFAULT)[address] [place] [address] 88510 Calcium [Mass/Vol] 9.1 mg/dL Normal 8.9-10.3 [facility] Comment on above: Performed By: #### 1 933822604, 0907025, 3212025693, 80615057, 3607355704, 5385430684, 88488585 ####[facility] (DEFAULT)[address] [place] [address] 45794 Chloride [Moles/Vol] 105 mmol/L Normal 101-111 [facility] Comment on above: Performed By: #### 1 671146946, 9814810, 0505265498, 82954457, 9722655681, 6356685028, 84349328 ####[facility] (DEFAULT)[address] [place] [address] 81184 CO2 [Moles/Vol] 29 mmol/L Normal 21-32 [facility] Comment on above: Performed By: #### 1 485834646, 7267169, 1963458955, 23734423, 1729808251, 7780125744, 57724464 ####[facility] (DEFAULT)[address] [place] [address] 03028 Glucose [Mass/Vol] 112.0 mg/dL Normal 74.0-118.0 [facility] Comment on above: Performed By: #### 1 361347991, 0172883, 3143283583, 29651749, 6587724170, 2899524452, 37002309 ####[facility] (DEFAULT)[address] [place] [address] Potassium [Moles/Vol] 3.7 mmol/L Normal 3.6-5.1 [facility] Comment on above: Performed By: #### 1 870736588, 4337541, 6778023876, 24838863, 9868431610, 3214397644, 81299116 ####[facility] (DEFAULT)[address] [place] [address] Sodium [Moles/Vol] 140.0 mmol/L Normal 136.0-144.0 [facility] Comment on above: Performed By: #### 1 185799258, 9300099, 7552535519, 25936904, 9528676200, 2099169031, 37520639 ####[facility] (DEFAULT)[address] [place] [address] Breakpoint Chem Normal [facility] Comment on above: Performed By: #### 1 471503199, 6168235, 9061853181, 99979902, 3771814040, 4166531443, 67309016 ####[facility] (DEFAULT)[address] [place] [address] HgbA1c Standardon 07-06-2023 .Hb 16.8 Invalid Interpretation Code [facility] Comment on above: Performed By: #### 1 208031447, 7361803, 5940458463, 63931411, 0242624081, 5067287114, 38092810 ####[facility] (DEFAULT)[address] [place] [address] .Hgb A1c 0.66 g/dL Invalid Interpretation Code [facility] Comment on above: Performed By: #### 1 767179556, 9854108, 7154369715, 76813242, 6682094132, 1969158901, 99022217 ####[facility] (DEFAULT)[address] [place] [address] Glucose [Mass/Vol] 117 mg/dL Invalid Interpretation Code [facility] Comment on above: Performed By: #### 1 875363460, 1790950, 2351003473, 03277338, 1048745649, 7385815552, 97595712 ####[facility] (DEFAULT)[address] [place] [address] 51489 HbA1c (Bld) [Mass fraction] 5.7 % Normal 4.6-6.2 [facility] Comment on above: Performed By: #### 1 805709908, 2540375, 0059125009, 34241109, 5532705402, 8836366781, 07196329 ####[facility] (DEFAULT)[address] [place] [address] Iron Profileon 07-06-2023 Iron [Mass/Vol] 79.0 ug/dL Normal 45.0-182.0 [facility] Comment on above: Performed By: #### 1 895603630, 7266343, 4638123163, 79551795, 6538937553, 3370948213, 71383864 ####[facility] (DEFAULT)[address] [place] [address] Iron Sat 20 % Normal 20-55 [facility] Comment on above: Performed By: #### 1 724785857, 3392259, 8436828903, 52454358, 8663052160, 1946412720, 69096054 ####[facility] (DEFAULT)[address] [place] [address] TIBC 402 mcg/dL High 250-400 [facility] Comment on above: Performed By: #### 1 705242396, 2364026, 6090451301, 64279484, 6510832375, 6455955317, 80556972 ####[facility] (DEFAULT)[address] [place] [address] 93154 Transferrin [Mass/Vol] 287.3 mg/dL Normal 180.0-329.0 [facility] Comment on above: Performed By: #### 1 986786182, 5351304, 9260008303, 22688490, 8635838718, 2218865161, 32755012 ####[facility] (DEFAULT)[address] [place] [address] Lipid Panel Standard, Non-Fa stingon 07-06-2023 Cholesterol [Mass/Vol] 154.0 mg/dL Normal 66.0-200.0 [facility] Comment on above: Performed By: #### 1 853543824, 7489714, 7606643614, 63386033, 5633984178, 9918567267, 42780061 ####[facility] (DEFAULT)[address] [place] [address] 57856 Cholesterol in HDL [Mass/Vol] 35 mg/dL Low 40-71 [facility] Comment on above: Performed By: #### 1 960200282, 9669593, 7574716797, 07676096, 3788711636, 2650018948, 38188582 ####[facility] (DEFAULT)[address] [place] [address] 14289 Cholesterol in LDL [Mass/Vol] 83 mg/dL Normal 1-100 [facility] Comment on above: Performed By: #### 1 754126008, 1418562, 2338688236, 25473683, 3314124105, 7084736154, 76666628 ####[facility] (DEFAULT)[address] [place] [address] 26131 Cholesterol.total/Ch olesterol in HDL [Mass ratio] 4.3 {ratio} Normal 0.0-4.5 [facility] Comment on above: Performed By: #### 1 590050902, 1716230, 7796767881, 79250271, 3141597230, 7347149265, 69543501 ####[facility] (DEFAULT)[address] [place] [address] 42563 Triglyceride [Mass/Vol] 177.0 mg/dL High 0.0-150.0 [facility] Comment on above: Performed By: #### 1 218357889, 8186294, 5544959055, 54688479, 0103578487, 8723425558, 08408405 ####[facility] (DEFAULT)[address] [place] [address] 94643 VLDL. 35 mg/dL Normal 5-40 [facility] Comment on above: Performed By: #### 1 891581858, 6618618, 1677327391, 16794613, 2415659415, 8081238154, 93487007 ####[facility] (DEFAULT)[address] [place] [address] Provider Orderson 07-06-2023 Provider Orders [id number]#1.0 0OTGTIFF [facility] US LE Arterial Duplex Bilate ralon 07-06-2023 US LE Arterial Duplex Bilateral EXAMINATION: US LE [...] Augusto Mensah MD 07/06/23 4:09 pm Technologist: [facility] US LE Venous Duplex Bilatera patel 07-06-2023 US LE Venous Duplex Bilateral EXAMINATION: US LE [...] Augusto Mensah MD 07/06/23 4:07 pm Technologist: ,[facility] Coding Summaryon 07-01-2023 Coding Summary HTMLBase 64 JgitpukbDEw9kVv+PGhlYWQ +VE2RBXVeW57gdQGxdT8wU5 NMTElOSywgQVBQTElOSyIgb zUfZT7ndCEgDTTi IC8+UL9dJEAqJgcphMWom4R 9sII0O42rlo6gYHljjCR4YD TnCdJrqwewj2tmpPv5UBirS mluOyBt WDMztN31ZDN8aR84Nd56vUL gkYOqz4ggfAc7SsEhPWNyQE E5iAuiKRmnk5KcOUKuQ70tj JTvt3A5 GNLweRinqUKuEzBmoKU9qP4 mNTqrvdivl1xtljjkLwc4jv 93tARdi0S0sLX0K2HpmoO6V GJvbGQg ZasubAYVyU4fcvoev8kfuer eQgLkRVKxRWv5XKg5MRGblC hzOhNjBS68NBN3FWPyvsSvK 2FsLWFs dNizPjB2x1T8Kg4MD8YSRnm mY6ISSJATTYwohWV+PC90cj 49L4CsUernWee7FNOoQTV1h SB4qD9f ZFZbUSlwr4E4rVH5C5XntlJ nwq2xx3tnYUQuQMwnE89veC Dbj9X2JZMbeQN9OHCicGepK iBzaG93 Oyc+NLPeuIbmk7NqYyyjh0k mt1hndGa8IkckGHLkotVcnM lpHTU0p2UxQn0sDIKslMP9s ME5vL9s RsNtLfQ3AYzwB040PaCggNX dXnptN43oJ7TqbZD+PHRyPj d2KMUurFwnTM7qG8VrNHGzc mctbGVm wIyyPA9gZSWivsntOBEgvH2 lSLTaH2a9EcMsRuM8OBrvK0 PgRHIlfrxyOi43gA9oFuJmD nX9DGto G1IhkkK3TZBdoIRlGUroWJT 2N96kc5F7JLUfAOGbZXD4rW R3sW4tbPklemlzvLUngDikp mVydGlj LYjbNMmlP434NCPplEwgTzO vZGluZyBEYXRlOiAgMDEvMj YvMjAyNDwvdGQ+JAItXFF0g WxlPSAn hRKbDNmaMj9jlParkChhJL6 bJIKevefyRUOfyP5wFVSryW KvuYhpGZ5pJXVswazxw591C iAxMHB0 DQFxnMHqE5GioN5iHjOvGJO lMCUfY4WqoOLvUXifM668JS lpJxY3LPIvhdFiG0QaJJPey WduOiB0 b8S7At2Ix8BtubgtN9NqqNY uAtWuSwfmZSg7L8YnJmivgX I+ZB04XLZuWY33KQj1AKO1s WxlPSdi NLJfL9IclM6vVqQrCYGsQGL kOyc+PHRhYmxlIHdpZHRoPS epSOLmXnTfyOasJW5wOi9gE GVyLWNv aExtePIaAgDlz3emNNBsCSb nIV9haQvjG4YtjAZ8ZUAjq6 z5Wb97L36xY5EghHJ+PGNvb AT0dSW4 fB8fNgOkFtY9ZOgnM292EgT wbEMcAvyio4cdm3bsaGk4Ao L7GPGuumIkmEdkWQR3w7OhU o79C50k IHdpZHRoPSIxNSUiIHZhbGl ljb4dzW2lXa9+HXZduUI8zM M5xF9xPdQfRbO2MHctO800O nRvcCIv Fcxhh5ogz5jylKe0JpAwEOD uzqNvaUakNQF7c1TfIh11L3 CksDghx2BrBeu9bz39zZJic 3K5cTK0 I0ZcSJPvqtaihINchAntTP2 rPGExfuvxTFNkmU0oNONkR0 a5ToYdRbE3LLsuC4PvrsP1F GJvbGQg CPXjcEEMrC5pjqipy4iblzz oKbXjYGUfYHn3JDd7ZDTfjN dbWtNtHYR3EhB2XSS6xPNes F9jdTzh voagaL4ePka+GHI6xCYmbOJ GBB6bNvepfIQ+JEJkKSR2qX vtITycXIWlqR5bOGIxR4h7A iAwLjA1 IDxaZ0UddxX2DDPyzNEgBWQ ffJVReF3irqqvw3pwpjxbJh SdRTQhAKn6PQq6OPRnuTctF iBsZWZ0 EfG1DYA2xNEhpJ7gwJkuytv oiW8fCuc+PakyhIcfAAZ6WM o5G4PiYfy3SCFytNztHQ8vk GFkZGlu Ed6qaVwsyBlxHT9kDLYvxge ot760EqSju7mcHCNihDWwTE lkLZR4O50zl4T9NSRxPQEnT FH5jVH8 bY8ypBnchqlvhBHqbJgvlgK ggUjvEOwmCCviL217NWOdiR jgNkZaZMo3A9QrJiq1YZWpg CiuLM7l dXVmIOnhAt9qzYgdoNzrPC9 zIDAgqelds624FnJtz8cmKQ SjdFTmEEkwDWV1Q26ah8O3S CMwMDAw HHP7xQC6bU7vbSygdfkvgMR mdDsgdmVydGljYWwtYWxpZ2 96QWHzaXbeOkVxrQk2K0HoK xp1OGVg cKmvXY5epQOmJOsuQw2gmZh dvSauRC8nNVZmutctv675Ce Xmi5blECDgtDUmAXttKXX6M 09fw2S3 PETyIGZpIVG1yOD9qB6bzXm nbjogbGVmdDsgdmVydGljYW weNIgbR553RCZjyGqtHeMqv GllbnQg QMjaEZu5H1AlSxzjkIB+PC9 9OGAbPY88aZFakAVmr4ajiW r9VuAkMGZgYVR1tLobBLtak 3JkZXIt H70hzYVgg4P9TVRsuTlcsSP yBvSplMN6pR8vMQtydplvb0 jblxuvYvhlb5jqbq39aC44Y 29sIHdp ZHRoPSIzMCUiIHZhbGlnbj0 znR8jYa5+VNGgiVN2rGL3mE 6dHDTsDpH3IVicK676TxZat CIvPjxj u7qvw0ashBr9CwJ2SOZzsdP qiCmaRPC8l6OfQe96T06cLA dpZHRoPSIyMCUiIHZhbGlnb k2msB7j Ii8+KQTdfYJ6tHE1mY2mMlZ dUvO5XFepG125VgVtlNOhAi ikC27tL8JhuFD+UKAqOyq3X CBzdHls IH2hyRXvSJtjEe3wRCK9KdE sZiHsWSabC1WtASVpirptni umyDF9BEJvBIJfqV30Vc3lz DogMTBw rWWWlD4evtibr9lyeovkIoC cNIWjEKk5CMx0XAKyrTvyJc EwLSM7WeY2OEH6zHIewH2yn Glnbjog pJ9nR3WsIRHxcpvbSp49rA8 sGqIsRsO1SBmfNei+U0FNUy wgQUxFWEFOREVSIExFRTwvd GQ+PHRk FEC3vJgaXGhtYNPinB9sEVI uN8n9NbAcJbU0XClrI1EuEE SsvxmvWz28rO6jYjEwXsO9H EonC0Co veO5HJUvmFChQMlaOWA2L42 ty4R8INDkVFPpVFY5eRK5rU 1hbGlnbjogbGVmdDsgdmVyd GljYWwt FFmvH172FTBhbFbrHyBrFuJ 3PsB0Lgl6C9SnVhv9VVDvwN zmPC7tkXFnEMjnZj6unSijd CmbRS5d SHLybhxlNGLesO5mOPOwnJK bcVojVM6gHDMyhpjnx265Bc EaFWS7ZHDquWRoN8GrjE7zR iAjMDAw AIUkM9JxpYEnUItdL210NGr wPdW9JXMdomAhB3YkNQAxrB mbArG5h6H8Ec50IXCUFARxv zwvdGQ+ IBVxTIY8jTkzFOmvCFQvfE6 rSPBxM4q5LlGxUuV3GVziH1 ThQQPuqrpyOq32oD3dLgBlK zO5AJwp M2ThcuD9VZTjhPKhGKqbTOK 5J80qa8B2KAAeRDAaHLC6aL T8vP3xlAuzewcpiMRrtKkgy mVydGlj IJitPXveQ998JOFbuZscBz0 EZSJ6F8ImJvo6VMWjcPwdKQ 9rlBGoTAmfLp2epDamuSzqU V8sXROf rdazPCEzfQ7sSKRqjBZmkXb cEN5cIFIbyolao236BkXeWT C4UVRvtIImD4HujP9dVvLtP DAwMDAw J1ZhuSMoNSevQ683TMzwRsI 7PAZzxgZoA5ZgKKJfvTiwCs F0q4H7Og8YYYyfgGV+PC90c y69I7Rb HrlwGqe4BYEnNOX0xHX4pB3 aNUStDCszo6K7kFJ3I7Iehh Srhx9zr1wnGPGtCXpgD93bn WXnj5Q3 JPVkmSR9BPZrjOrhBpFkjZ7 3Oyc+EPPcqIqbx7SyHlebe3 kkv5halPq1UcHtOGKvakPms WduPSJ0 k0NaDl45P80vGGjuBWXbNNO kUJUyOZAviGrrzp8rnK9wLz 8+ZLJeaGE8xLD2fL4oYdXtK cC8KGdt P610IuIifUYbSfjmm4lgo4m bsKi8EcKuCQWbhgJhgVhqBK L5e2ScEb98O8ObvTygy8TqQ hx9iw74 rZHrs7C0xLV3A4LcSWIfkyl bzWFkvYxgOE2gMFJpbsmzQL EjzG4eORSzG6f4FbSdLdX5K ZqbN0Mh wnI9YXFmxANuMKVoiTHLkL3 enipwq7ujxorbKdZtNSOyBW j4YJp0FJAgePhwIjRpSNT7M nK2BVO5 zKWwkL4zlJzpwjtchD6wTzv +OVl7j1mwmGJcKH2niFL1LG 06LR03yXTis7Y3tTG6G1GrP GRpbmct eqkkjWV6ORHqNTAnsL53Rx3 ftArzLy0aEBDwACI2LMKtqY WeO5FlkA8sBpIkKSJcHHFxI 3RleHQt ITwhB584NWrkRkT7FPZmosZ yT0ZdUEYcaNllEcN1r7Y9Zf 6HSS38FL52QU79sEPpi9E6u DQ4N4Rm DSYufukbiceozYY8HQRfFOJ lgP84Kb7foOrgSv6rWUObRA Z8LEAurOLfB2SvyP2jBwIdQ DAwMDAw Q3BfcBWlJEjoE011SEzgPdT 8EESoajMmH8ZaYVQjkFdoLm O2d4V6Dr4DRq82OK68QI37n GMsl0R2 tXK8Q4EtXVMkxejflbaiuWO 5QAJtLHHtjV73Np8nbQwpRu 3eHXImZSM0YGDoxXNzI7Jgj C4aAkPk NOWzDKScT3LcgKDtMUuyZ29 0HQscZoR3ZRHwexHfB3BnIE MznIcbHoX6n2V7Zl2WQNlpb pz5I1Ut PjwvdHI+FR23DACcSS71sVP xsZPwe9pjlNo0CoTgAWVwFW L3hIdqLFkrg5CcRUQzI10df YStn9B8 IGN (more content not included)... [facility] Provider Orderson 06-24-2023 Provider Orders [id number] TGTIFF [facility] ED Clinical Summaryon 2023 ED Clinical Summary [facility] ? Urgent Care [address] [place], [place] [id number] Clinical Summary PERSON INFORMATION Name: SPIKE NIELSEN Age: 43 Years Sex: MALE : 1980 MRN: Acct#: Visit Reason: UC - Skin Problem: simple; RIGHT LEG WOUND CHECK Arrival: 06/16/2023 13:33:24 Discharge: 06/16/2023 14:24:00 LOS: 000 00:51 Check In: 06/16/2023 13:33:24 Checkout: 06/16/2023 14:24:00 Address: [address] [place] [id number] PCP: Provider, None PROVIDER INFORMATION Provider Role Assigned Unassigned Anila Rubio COMMUNITY SERVICES OFFICER Nurse 06/16/2023 13:35:32 [facility] ED [...] verbalizes understanding of instructions given Comment: Normal [facility] ED Patient Summaryon 024 ED Patient Summary [facility] ? Urgent Care [address] [place] [address] PATIENT DISCHARGE INSTRUCTIONS Patient Information Name: SPIKE [...] at home: Medicines ? Take or apply xkzk-fkr-gdbllfp and prescription medicines only as told by [...] streak s (more content not included)... Normal [facility] 024 Urgent Care Record [facility] ? 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 It is important for you to follow up with a doctor, nurse practitioner, or physician?s marketing communications assistant for ongoing care. If your symptoms [...] so we can reach you if necessary. [facility] has provided you with a complete list of medications post discharge. Please inform your audio visual aide/provider of your visit and for further instruction on these medications. Any specific questions regarding your chronic medications and dosages should be discussed with your primary care physician(s) and/or pharmacist. New Medications [facility], [address], [place] [id number], [phone] mupirocin topical (mupirocin 2% topical ointment) 1 [...] Diastolic Blood Pressur (more content not included)... [facility] Fozia 04-14-2023 [facility] Telephone (GENBMI) SPIKE NIELSEN ([id number]) 1980 M Date Time Provider Department 04/14/23 FADI ROBERSON During your visit today, we recorded the following information about you: Fadi Roebrson, MILO 04/14/2023 5:14 PM Signed [facility] COORDINATION TELEPHONE ENCOUNTER Pt mother is helping him. [facility] with call back number Allergies As of [...] once daily. - famotidine/Ca carb/mag hydrox (ACID PSYCHOLOGY CLINICIAN COMPLETE, FAMOT, ORAL) Take 1 tablet by mouth twice daily. - B Complex Vitamins capsule Take 1 capsule by mouth once daily. - jj-ceu-ixwhc acid-lutein (CENTRUM SILVER) 400-250 mcg chew Take [...] Encounter Status:Closed by FADI ROBERSON on 04/14/23 [facility] 01-28-2023 [facility] Telephone ([email or web address]) SPIKE NIELSNE ([id number]) 1980 M Date Time Provider Department 01/28/23 FADI ROBERSON [facility] During your visit today, we recorded the following information about you: Allergies As of Date: 01/28/2023 Noted Allergy Reaction WELLBUTRIN (BUPROPION HCL) 10/25/2016 2 - Rash Date Reviewed: 01/20/2023 Reviewed by: Merced Gallardo Ma - Fully Assessed Prescriptions as of 01/28/2023 [...] once daily. - famotidine/Ca carb/mag hydrox (ACID PSYCHOLOGY CLINICIAN COMPLETE, FAMOT, ORAL) Take 1 tablet by mouth twice daily. - B Complex Vitamins capsule Take 1 capsule by mouth once daily. - jb-yyw-wtkjx acid-lutein (CENTRUM SILVER) 400-250 mcg chew Take [...] Encounter Status:Closed by FADI ROBERSON on 01/28/23 [facility] Coding Summaryon 01-26-2023 [facility] QdfcaglmHWr7aMo+PGhlYWQ +IG6SDUAgB94zhDNtiB1sP8 NMTElOSywgQVBQTElOSyIgb eBxSF1euEBoRRHe IC8+NR4iHTGoPscxdGNrh0K 0nGE5M99qes0vOXquySH1AK ZsKiDrrqffl2uqhLi6HUdyU mluOyBt YAQmjH85JKJ4iG55Kl67cTI dwXZce9nyiAj0AlDaRWLuOK O9aTteANneg2IuZAWvT66qi GNdy6S4 GAWsnXbafEFsEbTjeFS0fH0 qWRjkmagdo1ujkumnHjx9kh 70nMVpf2H3sLB9K6RfuhN2V GJvbGQg QwepsHMIlU7jitwfr2vscsy cVlSmRTNaVJm1AYb4DZWyxQ npQzDgZM73OYF9JEBuksDdN 2FsLWFs qRmhYjM5t8J4Im3JY0PNRpq eO0TQASHLGYthuOY+PC90cj 38B7BrRuyiJpu7RYFhWDE4w UK8wP6p ILOoXQofm0G0tVU3X2TfvaE rmv6ax2qyXRFyPVyzG56kdJ Eun7P9MYBkjKE2GURhlHbuW iBzaG93 Oyc+AMFhwQald4PpRhsuf2z fc5yhcVb2GzipQAPjnvVryX drUBO6j3UcPt2iIMEnuDM0q EK3nN4n RpYvTbC9CYwlV448BqKfiOY kZoovB32fR5OpoSJ+PHRyPj d3SROmqVwgDU1bH8DzVZWaj mctbGVm hGxoCI0aPIEqbmgeHBZznM1 bRHRhU2h3TnEcXoG7CIstU7 UpYDVmuovpSr02eB6gQpVvJ mY1FDpf E3YhbrR8PFNtkTOaGOhcSXV 3M77tv1A7BKFxYEUrZZU1rG V3tO5qnRienqgqdWEinDuxc mVydGlj CBnwOEmwQ380ZTKzrTagFuX vZGluZyBEYXRlOiAgMDgvMj MvMjAyMzwvdGQ+NLAzQMS2s WxlPSAn zJUuCEwwHq0qvTzyuSqfWJ4 uSXOysrazQEMakZ8uRMCwrO LwoHpsLS4cRWYmikseh966P iAxMHB0 WHFkqHVfF0GakY4kNqRlTMZ yAUZtA5YozGPmKQowP600AS eiOdP2JQBauaSuV7FgQYGmm WduOiB0 o1J1Am0Kn5ErnrywF1ImeIF qFrUkGlbzDTb7U6AoIsejjQ I+YH84UHLkBB29ADh6BMK3c WxlPSdi IXJhB8EofU2fNtYfPJPbWST kOyc+PHRhYmxlIHdpZHRoPS msUGHyUsCtiJlgBP2nJy7hZ GVyLWNv aWzlsZWsDpWmd1lzJREgALk cDT8vcExeM8ZrpTT4VJXno0 j7Lj27H08qW3YpiGZ+PGNvb EW8cID9 tZ8iKlWuUjU6YHysA746QpF zoBHdKanop9kax2qaxYd0Me S0OIVdllCgeIxzLYE4i6CzZ j87T53g IHdpZHRoPSIxNSUiIHZhbGl fxb3itP4bMr1+BCSrfLX4yQ D7xX8pWqOhXpA2NUuyO346X nRvcCIv Aowzf8kli4tzaWi0HgVmGEN uweRwaOwvKOR7y1FvEt99A3 NuuWhjr4QyIie8au97hLLvk 6V2qYG7 V9DtSJKskieygRGmaHbrXF8 zHRTiogaqGQBagV6hCYJrY8 x2ZrJqUfA9PKpqU1DoelN7N GJvbGQg QHLefSHLfR2splvkg3gppzb xCsHgOLTiRRh6QUa2BBAirY uaRkWnDYU4NbC1WWK6rAScd S9qhZmr senygL7mOuq+ROZ1iHNgnFO GKP7iBkidtXR+MBEpXFA9qZ owXCxsJCQfqJ6mSQSxD4o3W iAwLjA1 NNloG2PdvbK3FXXakEIbCVV fwZTGoU9mrexed1ysvjvvVc RcJFYaQFn0AUy7UXDvuHiaY iBsZWZ0 GyK5FUW8vWYveU9cqAcwxzf wkZ6oSsn+DumtrKuwOJU9WD g7U1GjBms7DYAfjLpuYN5xo GFkZGlu Tw9oeChnrCkhCQ0jMEIwuom ij921QiEgk3vfBQBttPBoXR ofPVA1B76za6Y7FJXhAZTrJ PG7fKQ6 rE1vnMdsihahsWQndGhzhmZ jyIcjBMxtVJhqE229OFDibK elUwXgFVi4K1NqJqs5IGYvd CutPL2b qTWhJUezQw1zdYgxsMtsHC5 jQAQmnfvfk342AxXae9tqKH GmfDVlEYptNVW9A69cg2H0X CMwMDAw XWQ8uRO5yJ1spBytdpqezKO mdDsgdmVydGljYWwtYWxpZ2 33CTHyyRxkJqDndSl5V0TcZ bf7BQXw qRmmYR8lwMIbRXffBp7bwRt igOenFO3nIRPtlbgth840Hr Ghe7dqAGUopRKaXNkkWBB4P 66rh5U3 TTZeUEQpHBS3rTZ6uA7qnHh nbjogbGVmdDsgdmVydGljYW rgQBvpW465UKLopLrsNgKxy GllbnQg GKdtRQb3D9WnAdttjAU+PC9 4GMJrUI51hFLpdKEyr4iirO l0IwJcJKZdYNR0bEvrDGsdq 3JkZXIt H34mmAHzs6Z6INRudPoqbQK cReVkmCP0xQ2lCXetzidcj7 xhworkLifrl3xisd88rF57Y 29sIHdp ZHRoPSIzMCUiIHZhbGlnbj0 nfY2hIc9+LXGirFD2uBQ1jX 8oNKWqMsI0MDcmZ962SsMkx CIvPjxj m8jjm4gidWi5JxM0BEPczzP ucVowGUU4s8YfAl76A09bNN dpZHRoPSIyMCUiIHZhbGlnb d3smN0z Ii8+SJKetFR2iTK2uL6oUrH yBrM1IOnmX593VhQjrWMnTl lkR85eN0SysBJ+CRVwBfr3L CBzdHls BR6qvYBbQNwfBi5uYYL1WwW cMaOvKUkwF6EnQAXyaefcjm akbIX8KREpYINmpJ48Do7at DogMTBw zNSLtF9voyfzb7sojgmfXlE qNRFfWRg1RGu3EYAjkAkrWb LtZAN2EgH3POY4iJQkuB7ws Glnbjog xI4qD4TvCJVlrunuGw13sY7 aCvIlHkJ8DKfdTcx+U0FNUy wgQUxFWEFOREVSIExFRTwvd GQ+PHRk XCO6oAurSSjfJBQknH8aHUT zL1c7UoJeClP1CWnpD3ObFO YwtrliMs63nF1qAjSjKcA6H AqcB7Nj cwK0RAHjzEPmVPewACD1W37 dh7V5QVFiMNRlAFT5gBZ9eX 1hbGlnbjogbGVmdDsgdmVyd GljYWwt OUdjK458ZAElhIaiBfFgMtZ 5GfR7Mnl5T7BwMmg4KDJrgN knWL2ktHOnZQfuZh1bwRxdu VqyTA0h HZOjrsuhQTEcoV2hUINllUG msPjiEP5tWZIjbtgei742Rv EgBHG5LZJtgUCsA8QrvI1eC iAjMDAw FNGmG0CcsQOmMTgqT435WGh kNdW3GLOldwTiJ2BtIHYymA cgTvD2e8S0Zm51JXXTFYHak zwvdGQ+ WHNdOXO6fPbdQSrbOBZikI1 aIMQdB0g1EkMiOlR6TTsvJ4 FvVSMttuiuGy67xW3qMhCeU bK1OHor W7KegnR1WPQdlBFdMKxnKJC 2O57ao5S2ZYWsIZQjWJK6eE N1zB2rxLiggsawnNTjoWvju mVydGlj PKvxLAqxZ728MQAwwZckUn7 BABK4Z4IyGfq8BRXptBeuKV 2qhGIvVSwxNr4ffUpbtCrnT Z0dEMEx meywCKMgdY5zKZYhtPEdiAa fDS6iTXAzdhipo537RzAhOJ V8VIDblVNpI9StqD9zLdTaI DAwMDAw N3VmjJPmQVqqR874RGepFgR 1WDBxglOdU7BdWSKvgLgkYf F1o1J9La5AfWLwA7LnW7r2L 3RkPjwv dHI+DB56LXZhPA24eUPckGF ut5yddPj6YrMwZMOjDBA1xT jlSLqzy8ZpBYQsZ52ikYCwm 0B3GQIh xItftIXaFtJdkRZ4eT2pSFo volthx1tvvyhtMtuik5mmtd 71qB40N62fSXtuCFWiHYNdS CUiIHZh aXrfku9sxA5eYq6+PGNvbCB 4eHT3nU3eWpDiSdQ2ORfsN1 35FmRnlUDrIjazs4upc4ufw Bl0AfYb TLFrtvCmhCozTSN2s1ZkXk8 6W74jIEmwWUVaZDHiEZLvAL MroYfnds3muM5uVe1+PC9jb 0wqsm44 kW68pPM+UZJuLEY4wNqiRUh mWRSqqS9lZLplKgA0YMZeHb TqsZ32tJBhTFamUg0mwHkkt ZeaEV8b ATMzljsit097OqFtw8hvIWX ccPNvLJjtGZD7X27ft4D9YD HrIXRzJKQ9tZG5jH1ryNapf jogbGVm oVyjfrAqhQliNRxuXAkjT70 5BXQhhXjsKnJlsNVmG5hzlu UBUB9cCqbunGR+TIGeJIC2z WxlPSdw ZGAaoL5uMLWcI3f3NcWxTfD 3EAxdE6NmozZ7FMYuuWPvGK SyiGHTmH4lofyyv2pygvuaX zAwMDAw MDn0UUi8KKOwcOeeWuOwDIP 1ZdL8QTQ6pOSufC7vdNatkc lrzV1bVgl+RklOOjwvdGQ+P HRkIHN0 eUllNWkgSULqyU5xXMHtB5z 8FqNmIlS3TEvgW3AxfjO3WD AokPZiGIJloMZJbO9ovsbja 2xvcjog LlScQZSaYJh0BMm4ZLHymMu lTgZnFGY0ZoF3XTW1tILoxO 7flAkfxjouuS2bAtm+TVJOO jwvdGQ+ CXEsXEA1dSybRKcbLCZcvX5 fQDBgX5l8IiJxRgW3CYfeJ2 XytcK5QVWiyWCgQBLwwYGKg H5ftmrv z6cxxaqbAcFzCTNkHQk4VRr 5VGHcaQflRqEoOCT1WmH0OI F7iEEqdV1exGvafzhfbA8kS yc+UGF5 MLC0NS44DL94W8EdRzcwoFK ibGU+PHRhYmxlIHdpZHRoPS cwQLTmDqRrnWqeRS8oXq5eJ GVyLWNv bGx (more content not included)... [facility] 01-21-2023 [facility] Telephone (GENBMI) SPIKE NIELSEN ([id number]) 1980 M Date Time Provider Department 01/21/23 MINAL PUGA During your visit today, we recorded the following information about you: Minal Puga RN 01/22/2023 10:59 AM Addendum BMI SPECIALTY CARE COORDINATION TELEPHONE ENCOUNTER 01/21/18: called and left message for pt to call office. Provided this RNs contact number. 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 - famotidine/Ca carb/mag hydrox (ACID PSYCHOLOGY CLINICIAN COMPLETE, FAMOT, ORAL) Take 1 tablet by mouth twice daily. - B Complex Vitamins capsule Take 1 capsule by mouth once daily. - ra-rbj-fjodj acid-lutein (CENTRUM SILVER) 400-250 mcg chew Take [...] quadrant pain [R10.32] 06/19/2019 Encounter Status:Closed by MINAL PUGA on 01/22/23 [facility] CNOVon 01-20-2023 CNOV Office Visit (GENSMN ) SPIKE NIELSEN ([id number]) 1980 M Date Time Provider Department 01/20/23 8:30 AM SAM CROW During your visit today, we recorded the following information about you: Temperature Pulse Blood pressure Weight 97.2 degrees 62/minute 148/63 170.1 kg Height 1.803 m Sami Martinez Merced 01/20/2023 8:32 AM Signed What is the reason for your visit today? consult Who is your referring physician? Dr. Crow Are you having poor oral intake? NO Have you had unintentional weight loss of 15 lbs/7 Kg in the last 3-6 months? NO Bowels: diarrhea Wound: clean AND dry Temperature: No Drains: No Wilman Zahraa 01/20/2023 9:13 AM Signed [facility] Abdominal [facility] - HISTORY AND PHYSICAL Chief Complaint: [...] mouth once daily. famotidine/Ca carb/mag hydrox (ACID PSYCHOLOGY CLINICIAN COMPLETE, FAMOT, ORAL) Take 1 tablet by mouth twice daily. B Complex Vitamins capsule Take 1 capsule by mouth once daily. sj-wln-ybdml acid-lutein (CENTRUM SILVER) 400-250 mcg chew Take [...] not in (more content not included)... Normal [facility] Coding Summaryon 01-20-2023 Coding Summary [employer] 64 NujbmzfyQOv0kUt+PGhlYWQ +UB3UNYWzJ41apKGhpM4rI7 NMTElOSywgQVBQTElOSyIgb yQsEK7csCGjDZZp IC8+ES2zTHSoBjozvQHcs6R 8xUI5H64wbm7hYEumwKO0JU UyKpTpkxxrb8bglIi9RAwtR mluOyBt KZVdmM66IHP9hP13Lz59fXA zrREme9pldOj7SzBcYVKuMS J5iMtdZDunz2VzKRLwN92cc JJcp3K0 PHFsdUexeXPfBgNbbWR3rR5 dXVhupagem6lndexjGjg7pl 99jBFgk4H4jDI1F0LcurO3S GJvbGQg HjtpuPXRfN9eqjrqm0ulpjn nCjQePRVpYCo1BGa2WWYzcY skEgTkXV30CEP4XSQlwyBpM 2FsLWFs oFvuKwO5y3C3Ss6PV9HNFat yM2ZBCLKCNRykmKG+PC90cj 98Q3GwSyilAdc6WRFaGZF1r BB9pY8p GBUhFUtge0N2lKC4U0YvelA rsc8ly6pbNPTxBBymJ45fgU Jwn2R4IQEexIV9PSPsaRglM iBzaG93 Oyc+ACAolIcgi7PyCffsx9w kv7pgeZy0KpauYMEetzDpyI cmFAD1e5OxSe6kMHIgyDY3k JL0iQ4z QwAjWcO1HHfqU118DcAaiZV qQnorO39wV8BylYC+PHRyPj h4FZFgjIdbIW1wH1RzFROim mctbGVm oFslDO1gYYKtsflyKIJnuX6 bQTMdX4h9ZnZiVmW1SCuvN1 DeYSDvirytTl61yN4oMlVaI vT0TJju Z6GykiM6UCFmnIOhADyvLHG 2W04cw5U7VOKgGKRpPNS2nX Z5sB1ijVomqibxkRBkhTmwk mVydGlj JRrnJRwkD303RJFpsMtqXgM vZGluZyBEYXRlOiAgMDgvMT cvMjAyMzwvdGQ+XYDgFGG1c WxlPSAn hSRzDModYk4aqVcacUvwUD0 rOJWwiaexOUQzbZ5fXPSlqC FbhTgdRY1jZIUyrzcjt327O iAxMHB0 BBZrmXFzX0RdgF3rMrAfDDL rVMRoU3ImhISmOObzN670IY iwNeW0QHOwphFiH8QwNFXkk WduOiB0 f0E4Vw9Bv6PpjnqmW8LcfXB mYgVlBecpJSv5A7BxVabzxL I+RY72OGJtPU69SWh4ODB5h WxlPSdi LLAvR0GqxS7vSgSbYCNpUMB kOyc+PHRhYmxlIHdpZHRoPS jrCXThBcZirMefMS0mUe4vO GVyLWNv oOeicVDqYiBqw2liMAVkWJp sLD0dvJysC7DhxEQ4JCOjo6 r4Sv15Q79yL6QzmWM+PGNvb MV7hTK2 bS2vZsFsOdI9FJfuQ202TxX jyAUeXjmxw6qji7ptrVq7Ld U6FBGouzAaeXzxLTM7h5UrY e99L56i IHdpZHRoPSIxNSUiIHZhbGl jkw9ldR5zTk8+IQJfyXJ8kM G1nI6dYyPoAvB2CGtiC880K nRvcCIv Hzlzy2kge5ugpCy1TaKwBGG jdbOkaEfvCKD3m0VvSq14F0 KvsLsad1DnEfb9ql35jXDiw 2H4jZT3 Y8BsYYQwbymgeHIzaJwwEE0 bNCUqfdmcAFCcrP5aDMRwU6 t6OuZcVgZ2KEtyK3JysuQ8Q GJvbGQg CGDodAEFaS6glpzjo0rlzch vZvApBFCkEKa3JVm9CQDfyC ddIwXoRLV9DrA1DGP3qYHpk G4krGme zhzuhG5qKqc+NOF5hYYscGZ GFR3uWbrneIU+NSQdTCI5gZ vtCKcyMDWswM7fIYDqX6y6L iAwLjA1 RAsoF0VcgvV6MEFiuBWnTOW ykLFSjN6vqjgfz1orrcecZg RcFPLqXUd6XOv8HKYqhNxlI iBsZWZ0 MlT0CRM0vAWdwC4qyLjijyx fiH2sVcv+KxzziCaaBSA1NR v8K1CxNie1FZUwaDviKH8vl GFkZGlu Tp8yxRmewOdnLF3pYHZzvqg kt107KuIew6gpPFZhfTJoVA iqKUC6H56xd5F9YCThKXChX BF3cTH0 lE4xvOgnjlkztGUjeVgybyY jbYpyKZmlRNpmD869FCHwyH azDyGkXBv4E3XuHnr5PEQnr JllZC2f cWQbCDbsJv8ueSzinBhpCJ4 yXXQwixagq503SsBhu3zjWM OwjPPsBGvoSBZ5R15jz0O6Y CMwMDAw OVN7iZU9rR5leWvzkaqdlHE mdDsgdmVydGljYWwtYWxpZ2 91NTEtyXxyLsXbfXo9I1WdI nw8CBFd rXxfYX4hbIFhULcxSv3jhHr ljLokBB0bMZDamzzxn279Gk Hes3zgVFTawGWaJCxuHSJ7H 62yo8S1 RQEnGENoBKK0fKC8dU9lgEy nbjogbGVmdDsgdmVydGljYW vfLLliD885YPMbaNtyShQhu GllbnQg HSzuANx8J0EpHihgjXF+PC9 7LNLeNU18pVVemLKik1urgB v1RiXxZSPsCJX0eJpsSZwbo 3JkZXIt K23pmJHts0S6NLCjmZdtmFK sRvPxqGV5kF4xYXgrwwona2 tguchsBbrnn3bvwb60tQ74N 29sIHdp ZHRoPSIzMCUiIHZhbGlnbj0 xkZ0lKb1+IIVrzDY3dWX7cF 5pHNLuVnU9OUbnN111PuAve CIvPjxj y8akd1tclGi5OfV2APIhsnW kyHlfWGA1b0AhVl95F83uZI dpZHRoPSIyMCUiIHZhbGlnb n7vtL8n Ii8+OQPxmBU6rDL1yK5yJpU gDgG1WQyzX025LtJulGUnYy huW58iI5GzlBR+XJQvAtc5P CBzdHls WR0jmMRpYUrfPy0bRQP6FkU vOdFsBWorI0LpWGNfowelny qbaNQ9QJTcVMTphP82Sp6wl DogMTBw mWFFqH9okonip4nqmlqqVsU hMLNpLCl7DVx1MUZlgPygKc OwHJC7TxA2IKP8oDOpwT8it Glnbjog yX9xM7EnGUThywtlHr30yD4 qYzOfDmT8RHpzWxl+U0FNUy wgQUxFWEFOREVSIExFRTwvd GQ+PHRk JFN6zMwnTGnzIVBahE1eWCS vU9x3PaDsGhK7QUikF2YxFR EshufmTn68kM4eIvGsKoP6L PglA3Zr riV4HOUijBMkRTgrNCG8C24 lm8J8ANCmYJAuBQG2aTJ2eL 1hbGlnbjogbGVmdDsgdmVyd GljYWwt GKuyY581IXLuvGopRgZjSfI 6GlU1Mjn7F8FgSng6KIRrxI ueMP6jzSClEQiuFo8tfKlqn ZdfMM5b LMGfcwnpVPRoaN1pVJYiiWZ reMnvSH0gOVVdxlbme160Ah JfCYM3EOGouSVyS7VagY3rK iAjMDAw MSZgG7TztQCxOCjjE713DWf yJbN6FUIjqfRxD7HySQYktM dtVpB5s0B2Lb63QGCYWXUwb zwvdGQ+ RFVdMFB1dQpgYGusVGIzzY1 rBSXcT7w5OpAaGjV6XPunB6 ThPQWpijmwOs98bW6mDaCkG wC7RWbm E8EsspL5HDRbjNCiFPhgHJA 0J85ie7N4NBVtEUIiBLL2qU N9uY4gzBagtalhyQJwcNdyf mVydGlj UZjmKTtxP704OMYxuPdkOt1 TXAS7Q6BpAuv4PUTmwPemVK 1fwKEhKBmsFu5oaAvdmDzxF T8kWGOs wluwJLBhmT6jKJDgnXYcfNi sKV8eJEBfynbmi166AhVsAK N2CDXssYEuQ0PygF8fXfPmC DAwMDAw K9SrvEDjISrnW888VKvsWcO 1XLNgcwArM6SbNQFysSfaHh G4m6K6Gy6ANIipbZM+PC90c m08N5Wr GfspPhr6FFVzLKE1oPS0rK7 yVKCrHCwsj6Z0dBR9B8Wifp Jtpa6hl8mlMCZpFVbbA19xq ZBbo4X0 LBTthAB8SHIuvUboCjWzsI8 3Oyc+GYWywLomo7XyWzkgx7 uul5opzFv8YdUsJTZzfkJye WduPSJ0 l8YaNg54H42vZZbbIZHqMBL jVUQtHJFpfGwxed5htQ7sRu 8+VFArqCH2mIN1rT7hDyOxB vX7YKde F036PoGwyQXdQdwsj9qvz3x jzHu6UmSxXMRfwvPbmKshSE R9f2OyHd35P5VpyCugj8MuG je7fu74 dHPht7P5lKK4X1UxFZRkodj nsYJdjJqgVU3fYHRynliiCF CnrW0xIHYhH8e3HwXlWhO3S ZiwI8Rp yoR7KTDniWHfOIHmmWBDhV1 skphxt0tivbkhNrDqZYFgXR c5TIg9JJZxxJbfUwEhVDD2N rB5BHC0 gGGfxH6hzGidqiyxzN1yTzz +YSc1f0llsVIvLC0gcDM9GS 95UW45jBOoj1Y8sUX0O4BjV GRpbmct xgqhsQW3FHZvJUUuiV07Os5 muWrbQz9bFEHcWZN4VBVpvH LwN5RwrR2nTeCjLWRgMJPqQ 3RleHQt NEqjH823EGhiBuF4OBIjkyJ yU0JmFYIuzBztFxX6d7L6Vp 5SMN44FG71CX89uMCkb3F9l AS7T0Do SFLbokfmzbgzfUC7WPDlEKN nmR79Wz1swZabLp2nVNSiWT Q0QEIybIXmR5CghT7kXgGxB DAwMDAw E3UksXQyEKnfR033GEsfNgT 0FHAkjfIcM6DiVJTcvHlyZv L4b8P9Nk4AWs95MW59PA71h MAhp6B2 fOT0E3AgXOSnjfwntaxmgYM 3YSWnYXBxrD56Om3wuVgiGl 4bTABlWHQ9VUOsdSZkD6Nkz T7sVrHp VBWeHCGoC2FogMSqBUjzS77 1XSohBhW4RUHqywVdW9GrMZ RdmEkvDhX8v7Y8Ax9ANLvxj zk8Z8Mt PjwvdHI+AB40WFMsES94aDA lwRKuq1ozaRg4ViWtQCZzWX A0wSlsKXflu1PkGBSfE29di VVsa7V5 IGN (more content not included)... Normal [facility] CT Abdomen/Pelvis w/o Contra ston 01-19-2023 CT [...] MD 01/19/23 11:35 a Technologist: Aman ZAVALA [facility] ED Clinical Summaryon 2022 ED Clinical Summary [facility] - Emergency Department [address] [place], [place] [id number] ED Clinical Summary PERSON INFORMATION Name: SPIKE NIELSEN Age: 42 Years Sex: MALE : 1980 MRN: Acct#: Visit Reason: Ear pain; Chills; Hernia; CHILLS, BODY ACHES, L EAR PAIN, PAIN WHEN BREATHING Arrival: 01/15/2023 06:31:06 Discharge: 01/15/2023 07:45:00 LOS: 000 01:14 Check In: 01/15/2023 06:31:06 Checkout:01/15/2023 07:45:00 Address: [address] [place] [id number] PCP: Provider, None PROVIDER INFORMATION Provider Role Assigned Unassigned Kareem Sanchez MD ED Provider 01/15/2023 07:05:56 Jose RN, Temitope ED Nurse 01/15/2023 07:19:43 VITALS INFORMATION [...] a previous hernia repair by surgeon in [place]. Stated that he has appointment to follow-up [...] 1-2 times per year Other Comment: POB: [place] - 02/26/2019 15:28 - Carmen Jama Substance [...] tobacco user 0 (more content not included)... [facility] ED Note - Physicianon 2022 ED Note [...] a previous hernia repair by surgeon in [place]. Stated that he has appointment to follow-up [...] 1-2 times per year Other Comment: POB: [place] - 02/26/2019 15:28 - Carmen Jama Substance [...] abdomen, gr (more content not included)... Normal [facility] ED Note-Nursingon 01-15-2023 ED Note-Nursing AAOx3. SANTOS. Skin warm,dry, pink. REspirations regular, even. C/O ABD pain over his ABD hernia that is ongoing and is 10/10, but states he3 has had a fever and body aches. Has left lower leg redness. PMS intact. Breath sounds CTA bilat. Mom at cart side, interacts well with pt. Normal [facility] ED Patient Summaryon 023 ED Patient Summary [facility] - Emergency Department [address] [place] [address] PATIENT DISCHARGE INSTRUCTIONS Patient Information Name: SPIKE NIELSEN Age: 42 Years Date of : 1980 Reason For Visit: Ear pain; Chills; Hernia; CHILLS, BODY ACHES, L EAR PAIN, PAIN WHEN BREATHING Arrival Time: 01/15/2023 06:31:06 Primary Care Physician: Provider, None Attending Physician: Kareem Sanchez MD Comment: Visit Diagnosis: Diagnoses This Visit Cellulitis (L03.90) Cellulitis of left anterior lower leg (L03.116) Chills ([id number]) Ear pain ([id number]) Elevated blood pressure reading (R03.0) Hernia ([id number]) The Pharmacy at [facility] is open Tuesday through Tuesday from 9A [...] alcohol and/or drug addiction problems; contact the [facility] 27/12 Crisis Hotline -Text 6UZPF iy 939541. If you received any narcotics, sedation, or [...] legal documents With: Address: When: John Olmstead [address] [place] [address] Business (1) Within 5 to 7 days Comments: Contact your assigned on-call doctor for a follow-up appointment if you do not have a local family doctor or PCP. Alternatively, you may also follow-up in the Urgent Care at [facility] if you are not able to get [...] and treatment you received today in the [facility] Emergency Department were for an urgent problem and are not intended as complete care. It is important for you to follow up with a doctor, nurse practitioner, or physician?s marketing communications assistant for ongoing care. If your symptoms [...] so we can reach you if necessary. [facility] Emergency Department has provided you with a complete list of medications post discharge. Please inform your audio visual aide/provider of your visit and for further instruction on these medications. Any specific questions regarding your chronic medications and dosages should be discussed with your primary care physician(s) and/or pharmacist. New Medications [facility] [address], [place] [id number], [phone] cephalexin (cephalexin 500 mg oral capsule) 2 [...] every day. hy (more content not included)... Normal [facility] Provider Orderson 01-07-2023 Provider Orders [id number] GTIFF Normal [facility] CT ABD WOon 06-23-2020 CT ABD WO EXAMINATION: CT ABDOMEN WITHOUT [...] caval space similar to prior exam. Normal [facility] CBC w/Auto Differentialon Anemia NEIGHBORHOOD AIDE Normal [facility] Comment on above: Performed By: #### C BC #### [facility] [address] [place] [address] Anisocytosis Ql (Bld) NEIGHBORHOOD AIDE Normal [facility] Comment on above: Performed By: #### C BC #### [facility] [address] [place] [address] Basophils Abs. # 0.0 K/uL Normal 0.0-0.1 [facility] Comment on above: Performed By: #### C BC #### [facility] [address] [place] [address] Basophils/100 WBC (Bld) 0.3 % Normal 0.2-1.0 [facility] Comment on above: Performed By: #### C BC #### [facility] [place] [address] [place] [address] Basophils/100 WBC (Bld) NEIGHBORHOOD AIDE Normal [facility] Comment on above: Performed By: #### C BC #### [facility] [place] [address] [place] [address] Bosophillia # NEIGHBORHOOD AIDE Normal [facility] Comment on above: Performed By: #### C BC #### [facility] [place] [address] [facility] [place] [address] Eosinophils (Bld) [#/Vol] 0.0 10*3/uL Normal 0.0-0.2 [facility] Comment on above: Performed By: #### C BC #### [facility] [place] [address] [facility] [place] [address] Eosinophils (Bld) [#/Vol] NEIGHBORHOOD AIDE Normal [facility] Comment on above: Performed By: #### C BC #### [facility] [place] [address] [place] [address] Eosinophils/100 WBC (Bld) 0.2 % Low 0.9-2.9 [facility] Comment on above: Performed By: #### C BC #### [facility] [place] [address] [facility] [place] [address] Eosinophils/100 WBC (Bld) NEIGHBORHOOD AIDE Normal [facility] Comment on above: Performed By: #### C BC #### [facility] [place] [address] [place] [address] Erythocytosis NEIGHBORHOOD AIDE Normal [facility] Comment on above: Performed By: #### C BC #### [facility] [place] [address] [place] [address] Erythrocyte distribution width (RBC) [Ratio] 13.5 % Normal 11.5-14.5 [facility] Comment on above: Performed By: #### C BC #### [facility] [place] [address] [place] [address] Hematocrit (Bld) [Volume fraction] 41.8 % Normal 36.7-50.6 [facility] Comment on above: Performed By: #### C BC #### [facility] [place] [address] [place] [address] Hemoglobin (Bld) [Mass/Vol] 14.0 g/dL Normal 12.4-17.3 [facility] Comment on above: Performed By: #### C BC #### [facility] [address] [place] [address] Hypochromia NEIGHBORHOOD AIDE Normal [facility] Comment on above: Performed By: #### C BC #### [facility] [place] [address] [place] [address] Large Platelets NEIGHBORHOOD AIDE Normal [facility] Comment on above: Performed By: #### C BC #### [facility] [place] [address] [place] [address] Leukocytosis NEIGHBORHOOD AIDE Normal [facility] Comment on above: Performed By: #### C BC #### [facility] [place] [address] [place] [address] Leukopenia NEIGHBORHOOD AIDE Normal [facility] Comment on above: Performed By: #### C BC #### [facility] [place] [address] [place] [address] Lymphocytes (Bld) [#/Vol] 1.0 10*3/uL Low 1.3-2.9 [facility] Comment on above: Performed By: #### C BC #### [facility] [place] [address] [place] [address] Lymphocytes (Bld) [#/Vol] NEIGHBORHOOD AIDE Normal [facility] Comment on above: Performed By: #### C BC #### [facility] [place] [address] [place] [address] Lymphocytes/100 WBC (Bld) NEIGHBORHOOD AIDE Normal [facility] Comment on above: Performed By: #### C BC #### [facility] [place] [address] [place] [address] Lymphocytes/100 WBC (Bld) 26.9 % Normal 17.0-45.5 [facility] Comment on above: Performed By: #### C BC #### [facility] [address] [place] [address] Lymphocytosis # NEIGHBORHOOD AIDE Normal [facility] Comment on above: Performed By: #### C BC #### [facility] [address] [place] [address] Lymphocytosis % NEIGHBORHOOD AIDE Normal [facility] Comment on above: Performed By: #### C BC #### [facility] [address] [place] [address] Macrocytosis NEIGHBORHOOD AIDE Normal [facility] Comment on above: Performed By: #### C BC #### [facility] [address] [place] [address] MCH (RBC) [Entitic mass] 29.2 pg Normal 27.0-31.0 [facility] Comment on above: Performed By: #### C BC #### [facility] [address] [place] [address] MCHC (RBC) [Mass/Vol] 33.5 g/dL Normal 33.0-37.0 [facility] Comment on above: Performed By: #### C BC #### [facility] [place] [address] [place] [address] MCV (RBC) [Entitic vol] 87.0 fL Normal 80.0-94.0 [facility] Comment on above: Performed By: #### C BC #### [facility] [place] [address] [place] [address] Microcytosis NEIGHBORHOOD AIDE Normal The [facility] Comment on above: Performed By: #### C BC #### [facility] [place] [address] [place] [address] Monocytes (Bld) [#/Vol] 0.3 10*3/uL Normal 0.3-0.8 [facility] Comment on above: Performed By: #### C BC #### [facility] [place] [address] [facility] [place] [address] Monocytes/100 WBC (Bld) 7.1 % Normal 5.5-11.7 [facility] Comment on above: Performed By: #### C BC #### [facility] [place] [address] [facility] [place] [address] Monocytosis % NEIGHBORHOOD AIDE Normal [facility] Comment on above: Performed By: #### C BC #### [facility] [place] [address] [place] [address] Neutropenia # NEIGHBORHOOD AIDE Normal [facility] Comment on above: Performed By: #### C BC #### [facility] [place] [address] [place] [address] Neutropenia % NEIGHBORHOOD AIDE Normal [facility] Comment on above: Performed By: #### C BC #### [facility] [place] [address] [place] [address] Neutrophils (Bld) [#/Vol] NEIGHBORHOOD AIDE Normal [facility] Comment on above: Performed By: #### C BC #### [facility] [place] [address] [place] [address] Neutrophils Abs. # 2.4 K/uL Normal 2.2-4.8 [facility] Comment on above: Performed By: #### C BC #### [facility] [place] [address] [place] [address] Neutrophils/100 WBC (Bld) NEIGHBORHOOD AIDE Normal [facility] Comment on above: Performed By: #### C BC #### [facility] [place] [address] [place] [address] Neutrophils/100 WBC (Bld) 65.5 % High 43.0-65.0 [facility] Comment on above: Performed By: #### C BC #### [facility] [place] [address] [place] [address] Nucleated RBC (Bld) [#/Vol] 0.0 10*3/uL Normal [facility] Comment on above: Performed By: #### C BC #### [facility] [place] [address] [place] [address] Nucleated RBC/100 WBC (Bld) [Ratio] 0.0 % Normal [facility] Comment on above: Performed By: #### C BC #### [facility] [place] [address] [place] [address] Pancytopenia NEIGHBORHOOD AIDE Normal [facility] Comment on above: Performed By: #### C BC #### [facility] [place] [address] [place] [address] Platelet mean volume (Bld) [Entitic vol] 10.7 fL High 7.4-10.4 [facility] Comment on above: Performed By: #### C BC #### [facility] [place] [address] [place] [address] Platelets (Bld) [#/Vol] 91 10*3/uL Low 148-402 [facility] Comment on above: Performed By: #### C BC #### [facility] [place] [address] [place] [address] Poikilocytosis NEIGHBORHOOD AIDE Normal [facility] Comment on above: Performed By: #### C BC #### [facility] [place] [address] [place] [address] RBC (Bld) [#/Vol] 4.80 10*6/uL Normal 4.13-5.69 [facility] Comment on above: Performed By: #### C BC #### [facility] [place] [address] [place] [address] Small Platelets NEIGHBORHOOD AIDE Normal [facility] Comment on above: Performed By: #### C BC #### [facility] [place] [address] [place] [address] Thrombocytopenia NEIGHBORHOOD AIDE Normal [facility] Comment on above: Performed By: #### C BC #### [facility] [place] [address] [place] [address] Thrombocytopenia. NEIGHBORHOOD AIDE Normal [facility] Comment on above: Performed By: #### C BC #### [facility] [place] [address] [place] [address] Thrombocytosis NEIGHBORHOOD AIDE Normal [facility] Comment on above: Performed By: #### C BC #### [facility] [place] [address] [place] [address] WBC (Bld) [#/Vol] 3.7 10*3/uL Normal 3.6-10.8 [facility] Comment on above: Performed By: #### C BC #### [facility] [place] [address] [facility] [place] [address] Comprehensive Metabolic Pane patel 04-21-2020 Albumin [Mass/Vol] 3.7 g/dL Normal 3.4-5.0 [facility] Comment on above: Performed By: #### C MP #### [facility] [place] [address] [place] [address] Albumin/Globulin [Mass ratio] 1.4 {ratio} Normal 1.1-2.5 [facility] Comment on above: Performed By: #### C MP #### [facility] [place] [address] [place] [address] ALP [Catalytic activity/Vol] 70 U/L Normal 54-112 [facility] Comment on above: Performed By: #### C MP #### [facility] [place] [address] [place] [address] ALT [Catalytic activity/Vol] 94 U/L High 13-66 [facility] Comment on above: Performed By: #### C MP #### [facility] [place] [address] [place] [address] Anion gap [Moles/Vol] 9.1 mmol/L Normal 8.0-16.0 [facility] Comment on above: Performed By: #### C MP #### [facility] [place] [address] [place] [address] AST [Catalytic activity/Vol] 33 U/L Normal 3-39 [facility] Comment on above: Performed By: #### C MP #### [facility] [place] [address] [place] [address] Bilirubin Ql (U) 0.37 mg/dL Normal 0.00-0.99 [facility] Comment on above: Performed By: #### C MP #### [facility] [place] [address] [place] [address] Calcium [Mass/Vol] 8.8 mg/dL Normal 8.2-10.0 [facility] Comment on above: Performed By: #### C MP #### [facility] [address] [place] [address] Chloride [Moles/Vol] 109 mmol/L Normal 94-110 [facility] Comment on above: Performed By: #### C MP #### [facility] [address] [place] [address] CO2 [Moles/Vol] 31 mmol/L Normal 21-34 [facility] Comment on above: Performed By: #### C MP #### [facility] [address] [place] [address] Creatinine [Mass/Vol] 0.71 mg/dL Normal 0.50-1.17 [facility] Comment on above: Performed By: #### C MP #### [facility] [address] [place] [address] GFR/1.73 sq M predicted among blacks MDRD (S/P/Bld) [Vol rate/Area] mL/min/{1.73_m2} Normal >60 [facility] Comment on above: Result Comment: Rn Ante Partum eliana Kidney Disease less than 60 mL/min/1.73 m2 Kidney Failure less than 15 mL/min/1.73 m2 Average estimated GFR by age: 40-49 years 99 mL/min/1.73 m2 Performed By: #### C MP #### [facility] [address] [place] [address] GFR/1.73 sq M predicted among non-blacks MDRD (S/P/Bld) [Vol rate/Area] mL/min/{1.73_m2} Normal >60 [facility] Comment on above: Performed By: #### C MP #### [facility] [facility] [place] [address] [place] [address] Globulin (S) [Mass/Vol] 2.6 g/dL Normal 1.5-4.5 [facility] Comment on above: Result Comment: CO RRECTED REPORT: Previous result was 2.7 at 13:04 on 04/21/20 Performed By: #### C MP #### [facility] [address] [place] [address] Glucose [Mass/Vol] 112 mg/dL High 65-100 [facility] Comment on above: Performed By: #### C MP #### [facility] [address] [place] [address] Potassium [Moles/Vol] 4.1 mmol/L Normal 3.3-5.1 [facility] Comment on above: Performed By: #### C MP #### [facility] [address] [place] [address] Protein [Mass/Vol] 6.3 g/dL Normal 6.1-8.2 [facility] Comment on above: Performed By: #### C MP #### [facility] [place] [address] [place] [address] Sodium [Moles/Vol] 145 mmol/L Normal 132-145 [facility] Comment on above: Performed By: #### C MP #### [facility] [place] [address] [place] [address] Urea nitrogen [Mass/Vol] 19.2 mg/dL Normal 3.2-26.9 [facility] Comment on above: Performed By: #### C MP #### [facility] [place] [address] [place] [address] Urea nitrogen/Creatinine [Mass ratio] 27 mg/mg High 6-20 [facility] Comment on above: Performed By: #### C MP #### [facility] [address] [place] [address] Hemoglobin A1con 04-21-2020 HbA1c (Bld) [Mass fraction] 5.6 % Normal 4.8-5.6 [facility] Comment on above: Result Comment: Pred iabetes: 5.7 - 6.4 Diabetes: >6.4 Glycemic control for adults with diabetes: <7.0 Performed at: [facility] [address] [id number] [employer]uity Supervisor: Romulo Peng PhD, Phone: [phone] Performed By: #### H A1C #### [facility] [address] [place] [address] Lipid Panelon 04-21-2020 Cholesterol [Mass/Vol] 121 mg/dL Normal 0-200 [facility] Comment on above: Performed By: #### L IPID #### [facility] [address] [place] [address] Cholesterol in HDL [Mass/Vol] 37 mg/dL Low 39-96 [facility] Comment on above: Performed By: #### L IPID #### [facility] [address] [place] [address] Cholesterol in LDL [Mass/Vol] 55 mg/dL Normal 0-99 [facility] Comment on above: Performed By: #### L IPID #### [facility] [address] [place] [address] Cholesterol in LDL/Cholesterol in HDL [Mass ratio] 1.5 mg/dL Normal 0.0-3.6 [facility] Comment on above: Performed By: #### L IPID #### [facility] [address] [place] [address] Cholesterol in VLDL [Mass/Vol] 29 mg/dL Normal 5-40 [facility] Comment on above: Performed By: #### L IPID #### [facility] [address] [place] [address] Cholesterol.total/Ch olesterol in HDL [Mass ratio] 3.3 {ratio} Normal 0.0-5.0 [facility] Comment on above: Performed By: #### L IPID #### [facility] [address] [place] [address] Triglyceride [Mass/Vol] 146 mg/dL Normal 0-149 [facility] Comment on above: Result Comment: 150- 199 Borderline High 200-499 High >499 Very High Performed By: #### L IPID #### [facility] [address] [place] [address] Thyroid Gentry Profileon Thyroid Gentry Comment: see below Normal [facility] Comment on above: Result Comment: Star adelag December 16, the Thyroid Gentry has been changed. Please consult the back of our lab requisition. Performed By: #### C BC #### [facility] [address] [place] [address] TSH, 3rd Generation 1.740 uIU/L Normal 0.358-3.740 [facility] Comment on above: Result Comment: NOTE -Dietary supplements containing high biotin levels may cause significant interference with affected lab tests, including cardiovascular diagnostic tests and hormone tests that use biotin technology. Incorrect test results may be generated if there is biotin in the patients specimen. Performed By: #### C BC #### [facility] [address] [place] [address] ALT (SGPT)on 12-03-2019 ALT [Catalytic activity/Vol] 93 U/L High 13-66 [facility] Comment on above: Performed By: #### A LT #### [facility] [address] [place] [address] AST (SGOT)on 12-03-2019 AST [Catalytic activity/Vol] 39 U/L Normal 3-39 [facility] Comment on above: Performed By: #### A ST #### [facility] [address] [place] [address] BILATERAL ANKLE MIN 3 VIEWSo n 12-03-2019 [...] MRI of the most affected ankle. Normal [facility] Basic Metabolic Panelon 11-05 Anion gap [Moles/Vol] 12.1 mmol/L Normal 8.0-16.0 [facility] Comment on above: Performed By: #### B MP #### [facility] [address] [place] [address] Calcium [Mass/Vol] 9.0 mg/dL Normal 8.2-10.0 [facility] Comment on above: Performed By: #### B MP #### [facility] [address] [place] [address] Chloride [Moles/Vol] 107 mmol/L Normal 94-110 [facility] Comment on above: Performed By: #### B MP #### [facility] [address] [place] [address] CO2 [Moles/Vol] 27 mmol/L Normal 21-34 [facility] Comment on above: Performed By: #### B MP #### [facility] [address] [place] [address] Creatinine [Mass/Vol] 0.93 mg/dL Normal 0.50-1.17 [facility] Comment on above: Performed By: #### B MP #### [facility] [address] [place] [address] GFR/1.73 sq M predicted among blacks MDRD (S/P/Bld) [Vol rate/Area] mL/min/{1.73_m2} Normal >60 [facility] Comment on above: Result Comment: Rn Ante Partum eliana Kidney Disease less than 60 mL/min/1.73 m2 Kidney Failure less than 15 mL/min/1.73 m2 Average estimated GFR by age: 40-49 years 99 mL/min/1.73 m2 Performed By: #### B MP #### [facility] [address] [place] [address] GFR/1.73 sq M predicted among non-blacks MDRD (S/P/Bld) [Vol rate/Area] mL/min/{1.73_m2} Normal >60 [facility] Comment on above: Performed By: #### B MP #### [facility] [address] [place] [address] Glucose [Mass/Vol] 95 mg/dL Normal 65-100 [facility] Comment on above: Performed By: #### B MP #### [facility] [address] [place] [address] Potassium [Moles/Vol] 4.1 mmol/L Normal 3.3-5.1 [facility] Comment on above: Performed By: #### B MP #### [facility] [address] [place] [address] Sodium [Moles/Vol] 142 mmol/L Normal 132-145 [facility] Comment on above: Performed By: #### B MP #### [facility] [address] [place] [address] Urea nitrogen [Mass/Vol] 16.6 mg/dL Normal 3.2-26.9 [facility] Comment on above: Performed By: #### B MP #### [facility] [address] [place] [address] Urea nitrogen/Creatinine [Mass ratio] 18 mg/mg Normal 6-20 [facility] Comment on above: Performed By: #### B MP #### [facility] [address] [place] [address] CBC w/Auto Differentialon Anemia NEIGHBORHOOD AIDE Normal [facility] Comment on above: Performed By: #### C BC #### [facility] [address] [place] [address] Anisocytosis Ql (Bld) NEIGHBORHOOD AIDE Normal [facility] Comment on above: Performed By: #### C BC #### [facility] [address] [place] [address] Basophils Abs. # 0.0 K/uL Normal 0.0-0.1 [facility] Comment on above: Performed By: #### C BC #### [facility] [address] [place] [address] Basophils/100 WBC (Bld) 0.3 % Normal 0.2-1.0 [facility] Comment on above: Performed By: #### C BC #### [facility] [address] [facility] [place] [address] Basophils/100 WBC (Bld) NEIGHBORHOOD AIDE Normal [facility] Comment on above: Performed By: #### C BC #### [facility] [place] [address] [place] [address] Bosophillia # NEIGHBORHOOD AIDE Normal [facility] Comment on above: Performed By: #### C BC #### [facility] [place] [address] [place] [address] Eosinophils (Bld) [#/Vol] NEIGHBORHOOD AIDE Normal [facility] Comment on above: Performed By: #### C BC #### [facility] [place] [address] [place] [address] Eosinophils (Bld) [#/Vol] 0.0 10*3/uL Normal 0.0-0.2 [facility] Comment on above: Performed By: #### C BC #### [facility] [place] [address] [place] [address] Eosinophils/100 WBC (Bld) NEIGHBORHOOD AIDE Normal [facility] Comment on above: Performed By: #### C BC #### [facility] [address] [place] [address] Eosinophils/100 WBC (Bld) 0.2 % Low 0.9-2.9 [facility] Comment on above: Performed By: #### C BC #### [facility] [place] [address] [place] [address] Erythocytosis NEIGHBORHOOD AIDE Normal [facility] Comment on above: Performed By: #### C BC #### [facility] [facility] [place] [address] [place] [address] Erythrocyte distribution width (RBC) [Ratio] 13.4 % Normal 11.5-14.5 [facility] Comment on above: Performed By: #### C BC #### [facility] [place] [address] [place] [address] Hematocrit (Bld) [Volume fraction] 45.8 % Normal 36.7-50.6 [facility] Comment on above: Performed By: #### C BC #### [facility] [place] [address] [place] [address] Hemoglobin (Bld) [Mass/Vol] 15.6 g/dL Normal 12.4-17.3 [facility] Comment on above: Performed By: #### C BC #### [facility] [place] [address] [place] [address] Hypochromia NEIGHBORHOOD AIDE Normal [facility] Comment on above: Performed By: #### C BC #### [facility] [place] [address] [place] [address] Large Platelets NEIGHBORHOOD AIDE Normal [facility] Comment on above: Performed By: #### C BC #### [facility] [place] [address] [place] [address] Leukocytosis [place] AIDE Normal [facility] Comment on above: Performed By: #### C BC #### [facility] [place] [address] [place] [address] Leukopenia NEIGHB[place]OD AIDE Normal [facility] Comment on above: Performed By: #### C BC #### [facility] [place] [address] [place] [address] Lymphocytes (Bld) [#/Vol] NEIGHBORHOOD AIDE Normal [facility] Comment on above: Performed By: #### C BC #### [facility] [place] [address] [place] [address] Lymphocytes (Bld) [#/Vol] 1.7 10*3/uL Normal 1.3-2.9 [facility] Comment on above: Performed By: #### C BC #### [facility] [place] [address] [place] [address] Lymphocytes/100 WBC (Bld) 33.3 % Normal 17.0-45.5 [facility] Comment on above: Performed By: #### C BC #### [facility] [place] [address] [place] [address] Lymphocytes/100 WBC (Bld) NEIGHBORHOOD AIDE Normal [facility] Comment on above: Performed By: #### C BC #### [facility] [place] [address] [place] [address] Lymphocytosis # NEIGHB[place]HOOD AIDE Normal [facility] Comment on above: Performed By: #### C BC #### [facility] [place] [address] [place] [address] Lymphocytosis % NEIGHB[place]OD AIDE Normal [facility] Comment on above: Performed By: #### C BC #### [facility] [place] [address] [place] [address] Macrocytosis NEIGHB[place]HOOD AIDE Normal [facility] Comment on above: Performed By: #### C BC #### [facility] [place] [address] [place] [address] MCH (RBC) [Entitic mass] 29.4 pg Normal 27.0-31.0 [facility] Comment on above: Performed By: #### C BC #### [facility] [place] [address] [place] [address] MCHC (RBC) [Mass/Vol] 34.0 g/dL Normal 33.0-37.0 [facility] Comment on above: Performed By: #### C BC #### [facility] [place] [address] [place] [address] MCV (RBC) [Entitic vol] 86.2 fL Normal 80.0-94.0 [facility] Comment on above: Performed By: #### C BC #### [facility] [place] [address] [place] [address] Microcytosis NEIGHBORHOOD AIDE Normal [facility] Comment on above: Performed By: #### C BC #### [facility] [place] [address] [facility] [place] [address] Monocytes (Bld) [#/Vol] 0.4 10*3/uL Normal 0.3-0.8 [facility] Comment on above: Performed By: #### C BC #### [facility] [place] [address] [place] [address] Monocytes/100 WBC (Bld) 7.6 % Normal 5.5-11.7 [facility] Comment on above: Performed By: #### C BC #### [facility] [place] [address] [facility] [place] [address] Monocytosis % NEIGHBORHOOD AIDE Normal [facility] Comment on above: Performed By: #### C BC #### [facility] [place] [address] [place] [address] Neutropenia # NEIGHB[place]OD AIDE Normal [facility] Comment on above: Performed By: #### C BC #### [facility] [place] [address] [facility] [place] [address] Neutropenia % NEIGHB[place]OD AIDE Normal [facility] Comment on above: Performed By: #### C BC #### [facility] [place] [address] [place] [address] Neutrophils (Bld) [#/Vol] NEIGHBORHOOD AIDE Normal [facility] Comment on above: Performed By: #### C BC #### [facility] [place] [address] [address] Neutrophils Abs. # 2.9 K/uL Normal 2.2-4.8 [facility] Comment on above: Performed By: #### C BC #### [facility] [place] [address] [place] [address] Neutrophils/100 WBC (Bld) 58.6 % Normal 43.0-65.0 [facility] Comment on above: Performed By: #### C BC #### [facility] [place] [address] [facility] [place] [address] Neutrophils/100 WBC (Bld) NEIGHBORHOOD AIDE Normal [facility] Comment on above: Performed By: #### C BC #### [facility] [place] [address] [facility] [place] [address] Nucleated RBC (Bld) [#/Vol] 0.0 10*3/uL Normal [facility] Comment on above: Performed By: #### C BC #### [facility] [place] [address] [facility] [place] [address] Nucleated RBC/100 WBC (Bld) [Ratio] 0.0 % Normal [facility] Comment on above: Performed By: #### C BC #### [facility] [place] [address] [facility] [place] [address] Pancytopenia NEIGHB[place]HOOD AIDE Normal [facility] Comment on above: Performed By: #### C BC #### [facility] [place] [address] [facility] [place] [address] Platelet mean volume (Bld) [Entitic vol] 10.9 fL High 7.4-10.4 [facility] Comment on above: Performed By: #### C BC #### [facility] [place] [address] [facility] [place] [address] Platelets (Bld) [#/Vol] 105 10*3/uL Low 148-402 [facility] Comment on above: Performed By: #### C BC #### [facility] [place] [address] [place] [address] Poikilocytosis [place]HB[place]OD AIDE Normal [facility] Comment on above: Performed By: #### C BC #### [facility] [place] [address] [place] [address] RBC (Bld) [#/Vol] 5.31 10*6/uL Normal 4.13-5.69 [facility] Comment on above: Performed By: #### C BC #### [facility] [place] [address] [place] [address] Small Platelets NEIGHB[place]OD AIDE Normal [facility] Comment on above: Performed By: #### C BC #### [facility] [place] [address] [place] [address] Thrombocytopenia NEIGHB[place]HOOD AIDE Normal [facility] Comment on above: Performed By: #### C BC #### [facility] [place] [address] [place] [address] Thrombocytopenia. NEIGHBORHOOD AIDE Normal [facility] Comment on above: Performed By: #### C BC #### [facility] [facility] [address] [place] [address] Thrombocytosis NEIGHBORHOOD AIDE Normal [facility] Comment on above: Performed By: #### C BC #### [facility] [address] [place] [address] WBC (Bld) [#/Vol] 5.0 10*3/uL Normal 3.6-10.8 [facility] Comment on above: Performed By: #### C BC #### [facility] [address] [place] [address] RA Latex Turbid.on 0 RA Latex Turbid. <10.0 Normal 0.0-13.9 [facility] Comment on above: Result Comment: Perf ormed at: - [facility] [address] [id number] It Service Continuity Supervisor: Romulo Peng PhD, Phone: [phone] Performed By: #### R FWT #### [facility] [address] [place], [place] [id number] Sedimentation Rateon 020 Sedimentation Rate 4 mm/hr Normal 0-10 [facility] Comment on above: Performed By: #### E SR #### [facility] [address] [place], [place] [id number] Uric Acidon 12-03-2019 Urate [Mass/Vol] 6.1 mg/dL Normal 3.4-8.6 [facility] Comment on above: Performed By: #### C BC #### [facility] [address] [place], [place] [id number] HISTORY PHYSICALon 0 HISTORY PHYSICAL HNO ID: [id number] Author: Viviane Hughes Service: ? Author Type: Physician Legal Services Manager Type: HANDP Filed: 06/19/2019 9:19 AM Note [...] mouth once daily. famotidine/Ca carb/mag hydrox (ACID PSYCHOLOGY CLINICIAN COMPLETE, FAMOT, ORAL) Take 1 tablet by mouth twice daily. B Complex Vitamins capsule Take 1 capsule by mouth once daily. sz-flc-jaefe acid-lutein (CENTRUM SILVER) 400-250 mcg chew Take [...] June 19, 2019 TIME: 9:18 AM PAGER: [phone] [facility] PT EDon 06-19-2019 PT ED HNO ID: [id number] Author: Daniela (Milo) MILO Ramos Service: Nursing Author Type: Registered Nurse [...] By: Daniela Ramos RN In Department: PROCEDURES [facility] PT ED HNO ID: [id number] Author: Daphne Netwon (Rn) MILO Byers Service: ? Author Type: Registered Nurse [...] By: Daphne Byers RN In Department: PROCEDURES [facility] HOSPon 06-12-2019 HOSP Patient:Jack Nielsen MRN: Height:5' 10.984 (1.803 m) Weight:353 lb 2.8 oz (160.2 kg) Outpatient Medications as of 06/19/19: doxepin capsule 50 mg levomilnacipran ER (FETZIMA) 40 mg famotidine/Ca carb/mag hydrox (ACID PSYCHOLOGY CLINICIAN COMPLETE, FAMOT, ORAL) B Complex Vitamins capsule rc-ceu-ohuur acid-lutein (CENTRUM SILVER) 400-250 mcg chew triamterene [...] 51.0 39.0 Progress Notes ([facility] IMPACT): Hesham Molina LPN 06/08/2019 2:23 PM Signed Spike [...] use: Never Medications reviewed and updated: Yes Hesham Evans MD 06/08/2019 2:23 PM Signed HISTORY [...] once daily. - famotidine/Ca carb/mag hydrox (ACID PSYCHOLOGY CLINICIAN COMPLETE, FAMOT, ORAL) Take 1 tablet by mouth twice daily. - B Complex Vitamins capsule Take 1 capsule by mouth once daily. - st-npe-gqwzs acid-lutein (CENTRUM SILVER) 400-250 mcg chew Take [...] fevers. Neuro: No history of TIA's, stroke, BURNER TECHNICIAN tumor, impaired sensorium, hemiplegia, paraplegia or quadriplegia. [...] Augusto Evans MD 06/08/2019 2:22 PM Signed [facility] Patient instructions for day of surgery Do [...] once daily. - famotidine/Ca carb/mag hydrox (ACID PSYCHOLOGY CLINICIAN COMPLETE, FAMOT, ORAL) Take 1 tablet by [...] your physician) as soon as possilbe to [phone], ATTN: Augusto Evans MD If you have any questions or concerns regarding today's visit please do not hesitate to contact the [facility] center at [phone] or [phone], ext [phone]. Progress Notes ([facility]): Umer Winston DO, DO 06/08/2019 [...] pending Labs IMPACT and PACE Addendum: T AND S Brii Zaldivar RN ABO/RH(D) Date Value Ref Range Status 06/08/2019 A POSITIVE Final Antibody Screen Date Value Ref Range Status 06/08/2019 NEG Final SIGNATURE: Umer Winston DO PATIENT NAME: Spike Nielsen DATE: June 08, 2019 TIME: 3:07 PM PAGER/CONTACT #: Previous Version Normal [facility] GFRon 08-03-2018 GFR/1.73 sq M.predicted MDRD (S/P/Bld) [Vol rate/Area] mL/min/{1.73_m2} Normal [facility] Comment on above: Result Comment: To e [...] <15 Performed By: #### G FR1 #### [place] [address] METABOLIC PANELon 08-03-2018 ALK PHOS 83 U/L Normal 24-126 [facility] Comment on above: Performed By: #### 4 [id number] #### [place] [address] ALT [Catalytic activity/Vol] 61 U/L High 4-50 [facility] Comment on above: Performed By: #### 4 [id number] #### [facility] [address] [address] AST [Catalytic activity/Vol] 33 U/L Normal 3-55 [facility] Comment on above: Performed By: #### 4 [id number] #### [place] [address] Calcium [Mass/Vol] 9.6 mg/dL Normal 8.4-10.4 [facility] Comment on above: Performed By: #### 4 [id number] #### [place] [id number] Glucose [Mass/Vol] 88 mg/dL Normal 65-100 [facility] Comment on above: Performed By: #### 4 [id number] #### [place] [address] Urea nitrogen [Mass/Vol] 23 mg/dL Normal 8-26 [facility] Comment on above: Performed By: #### 4 [id number] #### [place] [address] Bilirubin Ql (U) 0.4 mg/dL Normal 0.2-1.6 [facility] Comment on above: Performed By: #### 4 [id number] #### [place] [address] CO2 [Moles/Vol] 26 mmol/L Normal 22-30 [facility] Comment on above: Performed By: #### 4 [id number] #### [facility] [address] [address] Creatinine [Mass/Vol] 0.90 mg/dL Normal 0.66-1.25 [place] Comment on above: Performed By: #### 4 [id number] #### [facility] [place] [id number] Protein [Mass/Vol] 6.9 g/dL Normal 6.3-8.2 [facility] Comment on above: Performed By: #### 4 [id number] #### [place] [address] Potassium [Moles/Vol] 4.3 mmol/L Normal 3.6-5.1 [facility] Comment on above: Performed By: #### 4 [id number] #### [place] [address] Sodium [Moles/Vol] 141 mmol/L Normal 135-147 [facility] Comment on above: Performed By: #### 4 [id number] #### [place] [address] Albumin [Mass/Vol] 4.3 g/dL Normal 3.5-5.0 [facility] Comment on above: Performed By: #### 4 [id number] #### [place] [address] Chloride [Moles/Vol] 106 mmol/L Normal 96-109 [facility] Comment on above: Performed By: #### 4 [id number] #### [place] [address] Vital Signs Date Time Vital Sign Value Performing Clinician Baron iverson 01-20-2023 08:21-0400 Body height 180.3 cm Sam Crow MD Work Phone: [facility] 01-20-2023 08:21-0400 Body temperature 97.2 [degF] Sam Crow MD Work Phone: [facility] 01-20-2023 08:21-0400 Body weight 170.1 kg Sam Crow MD Work Phone: [facility] 01-20-2023 08:21-0400 Diastolic blood pressure 63 mm[Hg] Sam Crow MD Work Phone: [facility] 01-20-2023 08:21-0400 Heart rate 62 /min Sam Crow MD Work Phone: [facility] 01-20-2023 08:21-0400 Systolic blood pressure 148 mm[Hg] Sam Crow MD Work Phone: [facility] Encounters Encounter Date Encounter Type Care Provider Facility Start: 10-18-2023 ambulatory Rashid Ruffin acility:[facility] Start: 09-14-2023 End: 09-14-2023 ambulatory PA Cassidy Hummel Facility:[facility] Start: 08-18-2023 End: 08-19-2023 ambulatory Jhonny Hernandez Facility:[facility] Start: 07-14-2023 End: 07-15-2023 ambulatory PA Cassidy Hummel Facility:[facility] Start: 07-07-2023 End: 07-08-2023 ambulatory PA Cassidy Hummel Facility:[facility] Start: 07-06-2023 End: 07-07-2023 ambulatory PA Cassidy Hummel Facility:[facility] Start: 06-28-2023 End: 06-29-2023 ambulatory PA Cassidy Hummel Facility:[facility] Start: 06-16-2023 End: 06-16-2023 ambulatory Reno Michael PA Facility:[facility] Start: 04-14-2023 Telephone encounter Fadi Guevara General Surgery Start: 01-22-2023 ambulatory Minal Puga RN [facility] Start: 01-22-2023 E-mail encounter fro m caregiver Minal Puga RN [facility] Start: 01-21-2023 Telephone encounter Minal Guevara General Surgery Comment on above: Freight Agent - Shawna grceo (Enroll in BMI program) Start: 01-20-2023 End: 01-21-2023 ambulatory SAM CROW Facility:[facility] Start: 01-20-2023 End: 01-20-2023 Patient encounter procedure Sam Crow MD Work Phone: General Surgery Comment on above: Incisional hernia, w ithout obstruction or gangrene (Primary Dx) Start: 01-19-2023 End: 01-20-2023 ambulatory Unlisted Provider Facility:[facility] Start: 01-15-2023 End: 01-15-2023 Emergency department patient visit Kareem Sanchez Facility:[facility] Start: 01-04-2023 Orders Only Marika Tavares APRN.CNP Work Phone: General Surgery Comment on above: Incisional hernia, w ithout obstruction or gangrene (Primary Dx) Procedures Date Procedure Procedure Detail Performing Clinician Start: 02-22-2019 Lipid 1996 panel - S christiano or Plasma Fadi Roberson RN Plan of Treatment Date Care Activity Detail Author Start: 02-23-2024 Lipid 1996 panel - S christiano or Plasma Lipid Screening [facility] Start: 02-23-2024 LIPID SCREEN LIPID SCREEN [facility] Start: 09-14-2023 Urine microalbumin profile [facility] Start: 02-04-2023 Influenza vaccination [facility] Start: 02-23-2020 ANNUAL PCP TEAM DIRECTOR OF MANUFACTURING ELIANA DISEASE VISIT ANNUAL PCP TEAM CHRONIC DISEASE VISIT [facility] Start: 1996 BP CONTROLLED (<130/80) BP CON TROLLED (<130/80) [facility] Start: 1996 HEPATITIS C SCREENING HEPATITIS C SC REENING [facility] Start: 1996 HIV SCREENING HIV SCREENING [facility] Start: 1978 COVID-19 VACCINE (#1) COVID-19 VACCI NE (#1) [facility] Start: 1978 HEPATITIS B (1 of 3 - 3-dose series) HEPATITIS B (1 of 3 - 3-dose series) [facility] Start: 1978 Hepatitis B Vaccine (1 of 3 - 3-dose series) Hepatitis B Vaccine (1 of 3 - 3-dose series) [facility] End: 02-03-2024 Ct abdomen & pelvis w/o contrast material CT ABD/PEL WO IVCON Radiology Routine Incisional hernia, without obstruction or gangrene 1 Occurrences starting 01/04/2023 until 02/03/2024 [facility] Work Phone: Comment on above: 1 Occurrences starti ng 01/04/2023 until 02/03/[address] [facility] c Immunizations Immunization Date Immunization Notes Care Provider Mike dave 03-06-2015 influenza, seasonal, injectable Marika Tavares APRN.CNP Work Phone: [facility] Work Phone: 03-06-2015 influenza virus vaccine, unspecified formulation Fadi Roberson RN [facility] 09-13-2013 tetanus toxoid, redu dana diphtheria toxoid, and acellular pertussis vaccine, adsorbed Marika Chaitanya TEXTILE ENGRAVER.STEERER Work Phone: [facility] Work Phone: Payers Date Payer Category Payer Self-pay 2022 Medicaid [id number] 2022 Medicaid [id number] 1978 Unknown [id number] 2.16.8 [id number]. 1978 Unknown [id number] 2.16.8 40.1.823340.3.579.2 1978 Unknown [id number] 2.16.8 40.1.693077.3.579.2. 1978 Unknown [id number] 2.16.8 40.1.691117.3.579.2. 1978 Unknown [id number] 2.16.8 40.1.252903.3.579.2. 1978 Unknown [id number] 2.16.8 40.1.087802.3.579.2. 1978 Unknown [id number] 2.16.8 40.1.386433.3.579.2. 1978 Unknown [id number] 2.16.8 40.1.347168.3.579.2. 1978 Unknown [id number] 2.16.8 40.1.390258.3.579.2. 1978 Unknown [id number] 2.16.8 40.1.320570.3.579.2. 1978 Unknown [id number] 2.16.8 40.1.937347.3.579.2.718 1978 Unknown [id number] 2.16.8 [id number] 1978 Unknown [id number] 2.16.8 [id number] Unknown [id number] 2.16.8 40.1.460377.3.579.2.531 Social History Date Type Detail Facility Start: 06-08-2019 End: 01-20-2023 Tobacco smoking status NHIS Ex-smoker [facility] End: 06-06-1982 History of tobacco use Current smoker [facility] End: 06-06-1982 History of tobacco use Cigarette Smoker [facility] Start: 06-08-2019 End: 01-20-2023 Cigarettes smoked current (pack per day) - Reported 0.1 [facility] Work Phone: Start: 06-08-2019 End: 01-20-2023 Tobacco use and exposure Smokeless tobacco non-user [facility] Start: 03-19-2021 End: 01-20-2023 Alcohol intake Lifetime non-drinker (finding) [facility] Start: 1980 Sex Assigned At Not on file [facility] Start: 06-19-2019 End: 01-20-2023 Gender identity Not on file [facility] Work Phone: How often to you hav e a drink containing alcohol? Never [facility] Work Phone: Average Number of Drinks Not on file [facility] Clinical Notes 01-15-2023 to 09-14-2023 Telephone Encounter - Fadi Roberson RN - 04/14/2023 5:12 PM ESTTelephone Encounter - Minal Puga RN - 01/22/2023 10:57 AM EDTTelephone Encounter - Minal Puga RN - 01/22/2023 10:54 AM EDT Note Date & Type Note Facility 09-14-2023 Note Patient Education Ma terials Follows:Disease Influenza, Adult Influenza is also called the flu. It is an infection in the lungs, nose, and throat (respiratory tract). It spreads easily from person to person (is contagious). The flu causes symptoms that are like a cold, along with high fever and body aches. What are the causes? This condition is caused by the influenza virus. You can get the virus by: ? Breathing in droplets that are in the air after a person infected with the flu coughed or sneezed. ? Touching something that has the virus on it and then touching your mouth, nose, or eyes. What increases the risk? Certain things may make you more likely to get the flu. These include: ? Not washing your hands often. ? Having close contact with many people during cold and flu season. ? Touching your mouth, eyes, or nose without first washing your hands. ? Not getting a flu shot every year. You may have a higher risk for the flu, and serious problems, such as a lung infection (pneumonia), if you: ? Are older than 65. ? Are . ? Have a weakened disease-fighting system (immune system) because of a disease or because you are taking certain medicines. ? Have a long-term (chronic) condition, such as: ? Heart, kidney, or lung disease. ? Diabetes. ? Asthma. ? Have a liver disorder. ? Are very overweight (morbidly obese). ? Have anemia. What are the signs or symptoms? Symptoms usually begin suddenly and last 4?14 days. They may include: ? Fever and chills. ? Headaches, body aches, or muscle aches. ? Sore throat. ? Cough. ? Runny or stuffy (congested) nose. ? Feeling discomfort in your chest. ? Not wanting to eat as much as normal. ? Feeling weak or tired. ? Feeling dizzy. ? Feeling sick to your stomach or throwing up. How is this treated? If the flu is found early, you can be treated with antiviral medicine. This can help to reduce how bad the illness is and how long it lasts. This may be given by mouth or through an IV tube. Taking care of yourself at home can help your symptoms get better. Your doctor may want you to: ? Take drgp-bes-fazaatr medicines. ? Drink plenty of fluids. The flu often goes away on its own. If you have very bad symptoms or other problems, you may be treated in a hospital. Follow these instructions at home: Activity ? Rest as needed. Get plenty of sleep. ? Stay home from work or school as told by your doctor. ? Do not leave home until you do not have a fever for 24 hours without taking medicine. ? Leave home only to go to your doctor. Eating and drinking ? Take an ORS (oral rehydration solution). This is a drink that is sold at pharmacies and stores. ? Drink enough fluid to keep your pee pale yellow. ? Drink clear fluids in small amounts as you are able. Clear fluids include: ? Water. ? Ice chips. ? Fruit juice mixed with water. ? Low-calorie sports drinks. ? Eat bland foods that are easy to digest. Eat small amounts as you are able. These foods include: ? Bananas. ? Applesauce. ? Rice. ? Lean meats. ? [place]. ? Crackers. ? Do not eat or drink: ? Fluids that have a lot of sugar or caffeine. ? Alcohol. ? Spicy or fatty foods. General instructions ? Take waaq-mnh-jmmwnda and prescription medicines only as told by your doctor. ? Use a cool mist humidifier to add moisture to the air in your home. This can make it easier for you to breathe. ? When using a cool mist humidifier, clean it daily. Empty water and replace with clean water. ? Cover your mouth and nose when you cough or sneeze. ? Wash your hands with soap and water often and for at least 20 seconds. This is also important after you cough or sneeze. If you cannot use soap and water, use alcohol-based hand bilingual middle school teacher. ? Keep all follow-up visits. How is this prevented? ? Get a flu shot every year. You may get the flu shot in late summer, fall, or winter. Ask your doctor when you should get your flu shot. ? Avoid contact with people who are sick during fall and winter. This is cold and flu season. Contact a doctor if: ? You get new symptoms. ? You have: ? Chest pain. ? Watery poop (diarrhea). ? A fever. ? Your cough gets worse. ? You start to have more mucus. ? You feel sick to your stomach. ? You throw up. Get help right away if you: ? Have shortness of breath. ? Have trouble breathing. ? Have skin or nails that turn a bluish color. ? Have very bad pain or stiffness in your neck. ? Get a sudden headache. ? Get sudden pain in your face or ear. ? Cannot eat or drink without throwing up. These symptoms may represent a serious problem that is an emergency. Get medical help right away. Call your local emergency services (911 in the [place] ? Do not wait to see if the symptoms will go away. ? Do not drive yourself to the hospital. Summary (more content not included)... [facility] 06-16-2023 Note Patient Education Ma terials Follows: [...] at home: Medicines ? Take or apply lsya-xne-fpktiqo and prescription medicines only as told by [...] provider. Document Revised: 08/21/2020 Document Reviewed: 08/21/2020 [employer] Patient Education ? 2022 [employer]. [facility] 04-14-2023 Miscellaneous Notes Formattin g of this note might be different from the original. [facility] COORDINATION TELEPHONE ENCOUNTER Pt mother is helping him. LVM with call back number documented in this encounter [facility] 01-22-2023 Miscellaneous Notes Formattin g of this note might be different from the original. Unable to send Swank message- account not active documented in this encounter [facility] 01-22-2023 Miscellaneous Notes Formattin g of this note might be different from the original. [facility] COORDINATION TELEPHONE ENCOUNTER 01/21/18: called and left message for pt to call office. Provided this RNs contact number. documented in this encounter [facility] 01-20-2023 Note HNO ID: [id number] Author: Sam Crow MD Service: ? Author Type: Physician [...] to refer him to our bariatric program. Sam Crow MD I have seen and evaluated the patient and discussed the case with the resident physician. I agree with the assessment and plan as documented in the resident?s note. [facility] 01-20-2023 Note HNO ID: [id number] Author: Zahraa Stovall Service: ? Author Type: ? Type: Progress Notes Filed: 01/20/2023 9:13 AM Note Text: [facility] Abdominal Core Health - HISTORY AND PHYSICAL [...] mouth once daily. famotidine/Ca carb/mag hydrox (ACID PSYCHOLOGY CLINICIAN COMPLETE, FAMOT, ORAL) Take 1 tablet by mouth twice daily. B Complex Vitamins capsule Take 1 capsule by mouth once daily. fe-nct-gvugb acid-lutein (CENTRUM SILVER) 400-250 mcg chew Take [...] and discussed with Dr. Mignon Stovall, MS4 [facility] 01-20-2023 History of Presen t illness Narrative [...] to refer him to our bariatric program. Sam Crow MD I have seen and evaluated the patient and discussed the case with the resident physician. I agree with the assessment and plan as documented in the resident s note. [facility] Abdominal Core Health - HISTORY AND PHYSICAL [...] mouth once daily. famotidine/Ca carb/mag hydrox (ACID PSYCHOLOGY CLINICIAN COMPLETE, FAMOT, ORAL) Take 1 tablet by mouth twice daily. B Complex Vitamins capsule Take 1 capsule by mouth once daily. vy-sgb-tckzj acid-lutein (CENTRUM SILVER) 400-250 mcg chew Take [...] Mignon Stovall, MS4 documented in this encounter [facility] 01-20-2023 Nurse Note What is the reason for your visit today? consult Who is your referring physician? Dr. Crow Are you having poor oral intake? NO Have you had unintentional weight loss of 15 lbs/7 Kg in the last 3-6 months? NO Bowels: diarrhea Wound: clean & dry Temperature: No Drains: No documented in this encounter [facility] 01-15-2023 Note Education Materials Infectious Disease Cellulitis, [...] these instructions at home: Medicines ? Take ppit-kpy-dvtstxz and prescription medicines only as told by [...] provider. Document Revised: 03/04/2022 Document Reviewed: 03/04/2022 [employer] Patient Education ? 2022 [employer] Procedures How to Take Your Blood [...] chair. ? Be (more content not included)... [facility] Evaluation note Diagnosis Incisional hernia, without obstruction or gangrene- Primary Incisional hernia without mention of obstruction or gangrene [facility] Incisional hernia, without obstruction or gangrene- Primary Incisional hernia without mention of obstruction or gangrene documented in this encounter [facility] Summary Purpose Family History No Family History Records FoundNo Family History Records FoundNo Family History Records FoundNo Family History Records FoundNo Family History Records FoundNo Family History Records Found Advance Directives No Advanced Directives Records FoundDocuments on File Type Date Recorded 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 Advance Directive(s) 06/08/2019 4:15 PM Documents on File Type Date Recorded 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 Advance Directive(s) 06/08/2019 4:15 PM Reason for Referral Specialty Diagnoses / Procedures Referred By Elías t Referred To Contact CT IMAGING Diagnoses Incisional hernia, without obstruction or gangrene Procedures CT ABD/PEL WO IVCON CT ABD & PELVIS W/O CONTRAST Marika Tavares, TEXTILE ENGRAVER.STEERER [address] [place] [address] Imaging Referral ID Status Reason Start Date Expiration Date Visits Requested Visits Authorized [id number] Pending Review Auto-Generat ed Referral 01/04/2023 02/03/2024 1 1 Specialty Diagnoses / Procedures Referred By Contac t Referred To Contact Diagnoses Incisional hernia, without obstruction or gangrene Procedures CONSULT [facility] OFFICE/OUTPATIENT [facility] 60-74 MINUTES Sam Crow MD [address] [place] [address] Referral ID Status Reason Start Date Expiration Date Visits Requested Visits Authorized [id number] Authorized PCP Requested Referral 01/20/2023 01/20/2024 1 1 Additional Source Comments (unrecognized sect ion and content) No Status Records FoundNo Status Records FoundNo Status Records FoundNo Status Records FoundNo Status Records FoundNo Status Records Found INFORMATION SOURCE (unrecogn ized section and content) DATE CREATED AUTHOR 04/26/2019 [facility] DATE CREATED AUTHOR AUTHOR'S ORGANIZ ATION 06/19/2019 [facility] DATE CREATED AUTHOR AUTHOR'S ORGANIZ ATION 08/02/2020 [facility] DATE CREATED AUTHOR AUTHOR'S ORGANIZ ATION 04/16/2023 [facility] DATE CREATED AUTHOR AUTHOR'S ORGANIZ ATION 10/13/2023 [facility] DATE CREATED AUTHOR AUTHOR'S ORGANIZ ATION 10/20/2023 [facility] Source Comments (unrecognize d section and content) In the event this informatio n is protected by the Federal Confidentiality of Alcohol and Drug Abuse Patient Records regulations: The Federal rules restrict any use of the information to criminally investigate or prosecute any alcohol or drug abuse patient.[facility] the event this information is protected by the Federal Confidentiality of Alcohol and Drug Abuse Patient Records regulations: The Federal rules restrict any use of the information to criminally investigate or prosecute any alcohol or drug abuse patient.[facility] the event this information is protected by the Federal Confidentiality of Alcohol and Drug Abuse Patient Records regulations: The Federal rules restrict any use of the information to criminally investigate or prosecute any alcohol or drug abuse patient.[facility] the event this information is protected by the Federal Confidentiality of Alcohol and Drug Abuse Patient Records regulations: The Federal rules restrict any use of the information to criminally investigate or prosecute any alcohol or drug abuse patient.[facility] Hospital[facility] the event this information is protected by the Federal Confidentiality of Alcohol and Drug Abuse Patient Records regulations: The Federal rules restrict any use of the information to criminally investigate or prosecute any alcohol or drug abuse patient.[facility] Care Teams (unrecognized sec tion and content) Pin Puller Relationship Specialty Start Date End Date Antoine Alcazar [id number] [address] Referring General Surgery 02/07/19 Pin Puller Relationship Specialty Start Date End Date Antoine Alcazar Darrell [address] [place] [address] Referring General Surgery 02/07/19 Pin Puller Relationship Specialty Start Date End Date Antoine Alcazar Darrell [address] [address] [place] [address] Referring General Surgery 02/07/19 Pin Puller Relationship Specialty Start Date End Date Inge Antoine Darrell [address] [facility] [place] [address] Referring General Surgery 02/07/19 Reason for Visit (unrecogniz ed section and content) Reason Comments Consult Reason Comments 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 [facility] [employer] [facility]. provides no warranty or guarantee of the accuracy or completeness of information in this document.
== END 2023-10-26 09:41 | disposition home or self-care (01) ==
LOC: VC 09:40
PROVIDERS: PCP Radiology Diagnostic Radiology; Visit Provider Radiology Diagnostic Radiology
DX: I80.01 Phlebitis and thrombophlebitis of superficial vessels of right lower extremity (principal)
CPT/HCPCS: 93971; G0463

== ENCOUNTER 2023-11-09 12:56 | Outpatient (OUT) | payer OTHER, SELFPAY ==
[2023-11-09] MEDS: LIDOCAINE HCL 1% 100 MG/10 ML MDV INJ (12:53)
[2023-11-09] MEDS: 0.9 % SODIUM CHLORIDE 500 ML, LIDOCAINE HCL 20 ML, SODIUM BICARBONATE 10 MEQ INJ (12:54)
--- NOTE | 2023-11-09 12:58 | VEIN_ITS ---
[address] [address] Patient Name: DAVI MCCULLOUGH MRN: [id number] date: 1980 Sex: M Assigned Patient Location: Current Patient Location: Accession/Order Number: [id number] Exam Date: 11/09/2023 13:00 Report Date: 11/09/2023 15:23 At the request of: ISAÍAS WILLAMS Procedure: VC Endovenous Ablation 1VeinLT EXAMINATION: VC Endovenous Ablation 1VeinLT HISTORY: I83.813 Bilateral leg painful varicose veins The risks and benefits of the procedure had been previously discussed, and were rediscussed at length. Informed written consent was obtained. Alex Rankin RN and Lucia Patel RDMS assisted. Time out procedure was performed. The left lower extremity was prepared and draped in the usual sterile fashion to allow knee flexion in the sterile field. Duplex ultrasound probe was draped in a sterile cover, sterile transmission gel was used. Venous mapping was performed with the areas of dilation and large tributaries marked. The total length was 28 cm from the entry 3 cm above the ankle to 3 cm below the Saphenopopliteal junction. The diameter of the left small saphenous vein ranged from 6.9 mm. A 30 gauge needle and 1% buffered lidocaine was used to anesthetize the entry site. A 4 mm incision was made with a scalpel and the saphenous vein was entered percutaneously under direct ultrasound guidance with a micropuncture set, a single stick was successful in gaining access. A micro-guide wire was inserted and the needle removed. A micro-set including a dilator was inserted over the microwire and the needle and dilator were removed. A guide wire was inserted through the micro-set and guided through the saphenous vein to the saphenofemoral junction. The dilator was removed and an introducer sheath was inserted over the wire until the end of the sheath entered the saphenofemoral junction. The dilator and wire were removed and the 600 micron fiber was introduced and placed and positioned so that it extended beyond the sheath and was 3 cm distal to the saphenofemoral or saphenopopliteal junction. Final position of the fiber was determined by ultrasound guidance and duplex imaging. Tumescent anesthetic was delivered by ultrasound guidance. 125 cc of fluid was delivered along the entire course of the saphenous vein. The solution consisted of 1000 cc of normal saline with 40 mL of 1% lidocaine and 20 mL of sodium bicarbonate. A final positioning check was made. The energy source was turned on by means of the foot pedal and the fiber and sheath were withdrawn. The total number of Joules delivered was 1349. The laser was active for 169 seconds under continuous pulse, average laser use of 8 J. Laser start time: 1:33 PM Laser stop time: 1:36 PM Date: 11/09/2023. A duplex ultrasound revealed compressibility and flow at the saphenofemoral junction immediately after the procedure. Hemostasis at the access site was achieved. The skin incision of the saphenous vein was closed with a 4 x 4. A compression stocking was applied. Postop instructions were given. A follow up appointment was recommended and scheduled. The patient tolerated the procedure well. Electronically authenticated by: MARIBELL MENDOZA Date: 11/09/2023 15:23
--- OUTSIDE RECORDS SUMMARY | 2023-11-09 13:17 | XMS_ITS ---
Patient Summarization (C-CDA 2.1 CCD) Created on: November 09, 2023 Morales Spike Aman : 1980 Sex: Male Author Organization Sample organization Care Team Providers [facility] Display [facility] Name Role Phone Antoine Alcazar Unavailable [phone] AJ CROW Attending Unavailable Kastor SALES DEVELOPMENT CONSULTANT TURNSTILE COLLECTOR-C, Mary C Admitting Unavai lable Kastor SALES DEVELOPMENT CONSULTANT TURNSTILE COLLECTOR-C, Mary C Attending Unavai lable Kastor SALES DEVELOPMENT CONSULTANT TURNSTILE COLLECTOR-C, Mary C Primary Care KAMI Moon Attending Unavailable KAMI Hummel Admitting Unavailable Kastor SALES DEVELOPMENT CONSULTANT TURNSTILE COLLECTOR-C, Mary C Primary Care Unavai Jhonny Hoff Attending Unavailable Jhonny Hernandez Admitting Unavailable Kastor SALES DEVELOPMENT CONSULTANT TURNSTILE COLLECTOR-C, Mary C Primary Care Reno Soares Admitting Unavaila Reno Carias Attending Unavaila ble Provider, None Primary Care Unavailable KAMI Hummel Attending Unavailable KAMI Hummel Admitting Unavailable Kastor SALES DEVELOPMENT CONSULTANT TURNSTILE COLLECTOR-C, Mary C Primary Care KAMI Moon Attending Unavailable KAMI Hummel Admitting Unavailable Kastor SALES DEVELOPMENT CONSULTANT TURNSTILE COLLECTOR-C, Mary C Primary Care KAMI Moon Admitting Unavailable Kastor SALES DEVELOPMENT CONSULTANT TURNSTILE COLLECTOR-C, Mary C Primary Care KAMI Moonherine Attending Unavailable KAMI Hummel Attending Unavailable KAMI Hummel Admitting Unavailable Kastor SALES DEVELOPMENT CONSULTANT TURNSTILE COLLECTOR-C, Mary C Primary Care Unavai labKareem Sims Admitting Unavailable Kareem Sanchez Attending Unavailable Provider, None Primary Care Unavailable Provider, Unlisted Primary Care Unavailable Marika Tavares CNP Admitting Marika Carroll CNP Attending KAMI Geller Admitting Unavailable KAMI Hummel Attending Unavailable Kastor SALES DEVELOPMENT CONSULTANT TURNSTILE COLLECTOR-C, Mary C Primary Care KAMI Moon Attending Unavailable KAMI Hummel Admitting Unavailable Kastor SALES DEVELOPMENT CONSULTANT TURNSTILE COLLECTOR-C, Mary C Primary Care KAMI Moon Admitting Unavailable Kastor SALES DEVELOPMENT CONSULTANT TURNSTILE COLLECTOR-C, Mary C Primary Care KAMI Moon Attending Unavailable Rashid Rojas Attending Unavailab Rashid Solomon Admitting Unavailab kiarra ROBERT FAMILY, PHYSICIAN Primary Care Unavailable Allergies Allergy Classification Reported Allergen(s) Allergy Type Date of Onset Reaction(s) Facility (6 sources) buPROPion; Translations: [BUPROPION HCL] Drug Allergy 10-25-2016 [facility] (1 source) buPROPion; Translations: [Wellbutrin] Drug Allergy [facility] Repository (1 source) buPROPion Drug Allergy 02-01-2019 [facility] Repository Encounters Encounter Date Encounter Type Care Provider Facility Start: 10-18-2023 ambulatory Rashid Ruffin acility:[facility] Start: 09-14-2023 End: 09-14-2023 ambulatory PA Cassidy Hummel Facility:[facility] Start: 08-18-2023 End: 08-19-2023 ambulatory Jhonny Hernandez Facility:[facility] Start: 07-14-2023 End: 07-15-2023 ambulatory PA Cassidy Hummel Facility:[facility] Start: 07-07-2023 End: 07-08-2023 ambulatory PA Cassidy Hummel Facility:[facility] Start: 07-06-2023 End: 07-07-2023 ambulatory PA Cassidy Hummel Facility:[facility] Start: 06-28-2023 End: 06-29-2023 ambulatory PA Cassidy Hummel Facility:[facility] Start: 06-16-2023 End: 06-16-2023 ambulatory Reno MCCLURE Facility:[facility] Start: 04-14-2023 Telephone encounter Fadi Guevara General Surgery Start: 01-22-2023 ambulatory Antonio Puga RN Gener al Surgery Start: 01-22-2023 E-mail encounter fro m caregiver Antonio Puga RN [facility] Start: 01-21-2023 Telephone encounter Antonio Guevara General Surgery Comment on above: Diamond Sorter - O angus (Enroll in BMI program) Start: 01-20-2023 End: 01-21-2023 ambulatory AJ CROW Facility:[facility] Start: 01-20-2023 End: 01-20-2023 Patient encounter procedure Aj Crow MD Work Phone: General Surgery Comment on above: Incisional hernia, w ithout obstruction or gangrene (Primary Dx) Start: 01-19-2023 End: 01-20-2023 ambulatory Unlisted Provider Facility:[facility] Start: 01-15-2023 End: 01-15-2023 Emergency department patient visit Kareem Sanchez Facility:[facility] Start: 01-04-2023 Orders Only Marika Chaitanya SALES DEVELOPMENT CONSULTANT.DIRECTOR IMMUNOLOGY Work Phone: General Surgery Comment on above: Incisional hernia, w ithout obstruction or gangrene (Primary Dx) Immunizations Immunization Date Immunization Notes Care Provider Mike dave 03-06-2015 influenza, seasonal, injectable Marika Chaitanya SALES DEVELOPMENT CONSULTANT.DIRECTOR IMMUNOLOGY Work Phone: [facility] Work Phone: 03-06-2015 influenza virus vaccine, unspecified formulation Fadi Roberson RN [facility] 09-13-2013 tetanus toxoid, redu dana diphtheria toxoid, and acellular pertussis vaccine, adsorbed Marika Chaitanya SALES DEVELOPMENT CONSULTANT.DIRECTOR IMMUNOLOGY Work Phone: [facility] Work Phone: Medications Completed/Discontinued Medications Medication Drug Class(es) Dates Sig (Normalized) Sig (Original) acetaminophen 325 mg oral tablet (5 sources) Start: 06-22-19 20 take 2 tablets by mouth every four hours as needed acetaminophen (TYLENOL) 325 mg tablet Take 2 tablets by mouth every 4 hours as needed (for pain.). 0 06/22/2019 Active Comment on above: Take [address] [facility] every 4 hours as needed (for pain.). [...] Comment on above: Take [address] [facility] once daily. busPIRone hydrochloride 15 mg oral [...] mL pen injector famotidine/Ca carb/mag hydrox (ACID MATCHER OFFBEARER COMPLETE, FAMOT, ORAL) (5 sources) take 1 tablet by mouth twice daily famotidine/Ca carb/mag hydrox (ACID MATCHER OFFBEARER COMPLETE, FAMOT, ORAL) Take 1 tablet by mouth twice daily. 0 Active Comment on above: Take 1 tablet by [facility] twice daily. febuxostat 40 mg oral tablet [...] on above: Take 10 mg by mouth. yu-jyq-mcxtc acid-lutein (CENTRUM SILVER) 400-250 mcg chew (5 sources) take 1 tablet by mouth once daily po-rrb-mvtpm acid-lutein (CENTRUM SILVER) 400-250 mcg chew Take [...] on above: Take 1,000 mcg by mo [facility] once daily. Payers Date Payer Category Payer Self-pay 2022 Medicaid [id number] 2022 Medicaid [id number] 1980 Unknown [id number] 2.16.8 40.1.452723.3.579.2. 1980 Unknown [id number] 2.16.8 40.1.733605.3.579.2. 1980 Unknown [id number] 2.16.8 40.1.494991.3.579.2. 1980 Unknown [id number] 2.16.8 40.1.605932.3.579.2. 1980 Unknown [id number] 2.16.8 40.1.359118.3.579.2. 1980 Unknown [id number] 2.16.8 40.1.283747.3.579.2. 1980 Unknown [id number] 2.16.8 40.1.462107.3.579.2. 1980 Unknown [id number] 2.16.8 40.1.997783.3.579.2. 1980 Unknown [id number] 2.16.8 40.1.538146.3.579.2. 1980 Unknown [id number] 2.16.8 40.1.831260.3.579.2. 1980 Unknown [id number] 2.16.8 40.1.945180.3.579.2. 1980 Unknown [id number] 2.16.8 40.1.663962.3.579.2. 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 ELIANA DISEASE VISIT ANNUAL PCP TEAM CHRONIC DISEASE VISIT [facility] Start: 1996 BP CONTROLLED (<130/80) BP CON TROLLED (<130/80) [facility] Start: 1996 HEPATITIS C SCREENING HEPATITIS C SC REENING [facility] Start: 1996 HIV SCREENING HIV SCREENING [facility] Start: 1980 COVID-19 VACCINE (#1) COVID-19 VACCI NE (#1) [facility] Start: 1978 HEPATITIS B (1 of 3 - 3-dose series) HEPATITIS B (1 of 3 - 3-dose series) [facility] Start: 1978 Hepatitis B Vaccine (1 of 3 - 3-dose series) Hepatitis B Vaccine (1 of 3 - 3-dose series) [facility] End: 02-03-2024 Ct abdomen & pelvis w/o contrast material CT ABD/PEL WO IVCON Radiology Routine Incisional hernia, without obstruction or gangrene 1 Occurrences starting 01/04/2023 until 02/03/2024 [facility] Work Phone: Comment on above: 1 Occurrences starti ng 01/04/2023 [facility] Active Problems Problem Classification Problem Date [...] development in childhood] Onset: 10-25-2016 10-25-2016 Episodic Procedures Date Procedure Procedure Detail Performing Clinician Start: 02-22-2019 Lipid 1996 panel - S christiano or Plasma Fadi Roberson RN Results Test Name Value Interpretation Reference Range Facility Coding Summaryon 09-27-2023 Coding Summary HTMLBase 64 QdnlvswgITd7cZi+PGhlYWQ +ZL4KXPDtK75ruUAzkV5zC6 NMTElOSywgQVBQTElOSyIgb qEfQN3obIYpNKMo IC8+NN3yKOLeSdpjvDZjv4X 7pCC2Q64xdt7xLHymiUU4CS AzIiOwmpnjo3drwVa1HTalU mluOyBt OPSzcJ85MJC9kX97Cx35pGL sgBYck4dndTh1ExTeTYOhLG L0eQpkFDisu1EoAKAdJ44zg OUtd9E7 HBPfzGnsdFAaYaOzoSY4gT6 hVCzyqrtqg2oyjoznVil8xs 18fDZdm6S8dFG5Z8OejpX3N GJvbGQg MlcqqDVEdR6snzmuq0mnnmz pUsPtCVDpZLw3CWm8DGXxzS tiNjAvZP02CFM7TCCzakJfN 2FsLWFs eRvcMnV9c9Q3Qp7NK3QJYbt oU9HEEJBCUXpgrTB+PC90cj 58D5HlLctrPve1TAHnKUH0c XP9rB8v HSHuHJdjj6L0rLP5D6LqfxL hmv6dx0kuUIIwTVahY42dnO Crt0O8QSYgeDD6HRQrmPjwG iBzaG93 Oyc+RNUmpMeam0RpKhwmi3z iu2ntjLo0GdppFAPwbmAhcI wuNOP9l3BmRo6nPUDlfQV0w PG9lC9y IiKoHsQ2GHzpK239XoTwwOZ qHzuiN38tC9ChfUN+PHRyPj g5ALAbzPkoGW3xN9DlPNVgz mctbGVm aHtgQY1bEEBlxypdZHUloW2 cGRZvW4b2JvGkQaG9SPdrS3 LzRYEtnbmqOh55jG1gHkJrV lP3TYko V5SrawS4GAZvbOJjKAnjCTU 9N22ff7A5CWSnAZHhGMQ9oZ I6rX3cgVvbhoqxkDXkcInxy mVydGlj UPhtJSrvY197QMYvqEhtXzM vZGluZyBEYXRlOiAgMDQvMj MvMjAyNDwvdGQ+XHYlMIG3l WxlPSAn gDXhCYqrZi6dgIynhRoqSE9 vFZQwhkojIKUtxN0oXCSbdY KqpJlgHQ6qVUGdoipna135C iAxMHB0 ULYwlNEcX9McbG4bLyLlUNH rCRAwD7SliPXtBHtaP263NE phHfA0WKSaqoQzC9IgSVSlr WduOiB0 m5M3Lc2Lz9PklbhlQ4LjzGI tDrZlLevtFRt2D0VxHwkxsX I+PR78YHLaVM96UJf7NED9f WxlPSdi GDJyZ4GhmS5jOdTdGQYmHJH kOyc+PHRhYmxlIHdpZHRoPS ioPENiSfFxpHxbOW6iAg5cN GVyLWNv eDuwjXPmNoPpk0ggHYXzUIl aPY4ybIukB5NfwYA7XSXyb8 c5Pb57M16zL9UnsBF+PGNvb WE5zJM6 fY0eUmBvBiY3TUeyQ957GxK diCLcRcmtf4kal1czaMq2Ux O4WLDfdzPikCjrOSR7c1XhH m34E57t IHdpZHRoPSIxNSUiIHZhbGl erg7gvN9iSb9+DEJlmFA4gQ V3xC5bUdSgFcR6RYmvQ988R nRvcCIv Lvtjc5hvg9omhWe1XtRbBAY ajrMpeEzfGQC4i6HzNz49F1 RcdKfzc6JhOnu9uy74jVUru 7C8sGL2 O2JaIRMdwgyabIRlcRtzVQ7 rCALivgnqBGHmiM9xJFVfP4 w9NiNdUcQ4HBmlM2SepqV1I GJvbGQg RMYarNAYqB0gsbjld2dqyiv nQcVyFMAkGXu7UZm9EMPqcH wwRbOeLRC4RaL2INW2kCNqd Y9ruEre cbzpyH8zHpr+IPU7uOSpiIH USO2fDlsfyMA+ZHPbBCC1rE euAYnzQOOpxC0eBDDkO0y3V iAwLjA1 TOepH9MenoW4IDXdaUDwGEB pqNEQbK3iogocc5ftllqtDu EtJFVtECa2STb7LCDolPneN iBsZWZ0 WrL8GCW1kUFeuS5plWepvrb zqO2pUxy+AgleaKtlTKO8VK a6H6TgUuh6QMAhaOjaSX8zq GFkZGlu Gw8igHntvPugCC0nPAKjiub sm924LxElq2gtZMDevCOkYX yqYBX8X50kc0O8XHToDAGlB KZ3xEW5 eS8xmVmvjollzVTalIcnnaN xiAarNJpsVNwyH093QSSgoB aeToFsRUf0B0ZkCqp7EFCfd YluSX5v tQQtOZkoOp6afEyegXwiIE4 yMTUgjlwvm351GjLhc1aiTY SumDHhDXnpNXS9U83os0E4C CMwMDAw NFB1oCQ0eM7mwUigcdvnnLB mdDsgdmVydGljYWwtYWxpZ2 01MCOhgCdvHqWfxSe4R1HlP vp9NAWs xDirOQ9xlEPqXSiaWw0syLe djQyxIG1fXJTtuobha622Lv Wwc6btYOWqmLJyORdfLAC2K 95ct4O2 BEKxHDBcRAF3eZW5zG3ezCp nbjogbGVmdDsgdmVydGljYW ncMTxcY054TTCzoXovAyOlm GllbnQg NOlmPDj4Y1YfLhfrnLL+PC9 5SIAcPU08lFTzbZEca0jgiM e9UzAoCGDtRHX4tQkoJPddf 3JkZXIt S41zdNLec9R7DFHcnQqppDY jUoWatPI3rH6oNFmibktsy8 agtboiGrwnh9dtqi40mW05Y 29sIHdp ZHRoPSIzMCUiIHZhbGlnbj0 syG1wPh3+BZQtoCS8zRX0oB 7qERJzTcU2QFysH727RwIfm CIvPjxj r3hso9delSl9XhG1HHZgtpL qyVkwUSH5w6WxXg14O73zGG dpZHRoPSIyMCUiIHZhbGlnb g6esH2l Ii8+AWOtsCN1pAV1qO2kBnD cHpB5IHopO579PaLxrDRfNa kvS80eF6DhtVO+AVByDsn9Y CBzdHls PF1psJTkFCfvGr7qWKC3DoK kNwPzXGmqT6AzIOVsbqklyt oobLV5XXVqSWVpzN87Ks3uh DogMTBw cWBPyT3kcynpr5jobldvUkH iPDQqTHl5RNh8OYKrvPuyOy MkLHJ1ZfR0GHJ6fVOxqV8mp Glnbjog yF3bR3McSKKcyahfOm39qM8 xZhZyXaK3NSbjXqr+U0FNUy wgQUxFWEFOREVSIExFRTwvd GQ+PHRk XKZ8fRztLVxnPKOosQ3mWMW bQ0d6JiUtMlX7TCipR3SoDY TetmvjGm50rD0qMdMbUsT6X PefE3Uw waO0AZCbeRWeAUyuZBG4N56 kz7C8LPRgJTIvVPU3nAI1yT 1hbGlnbjogbGVmdDsgdmVyd GljYWwt FCxcO218HOFgpPxnJqCpVwM 5BvI5Fcg4B2AuKof2SFDimJ gsUR5gjKIzVUmoUd6xeHzml EjlEO1y BCLnjemdWVFtlE7kJJYveZA gpQowPX6jGYXvtsdrw229Fm AjQVE0RFGazBPqK5RfnF5yS iAjMDAw YWOcM5BqeBLpCRmmE840HCm oBkV9XWGnijIkC7WmGJHbdC imNjI5f4I9Qq22TOETCIAsr zwvdGQ+ KSMjAOQ5pDayNCtvFRZwaM8 fMDBbP6u2HcUpOnJ0WUlcW4 BjYJBatosnBy05pJ2rXzObQ hG8IZkg Q8UlzjW0SQEnhSJcRQqlRBS 3C69fx8E5MYTvPPVxITC6bB E9rP8zyInwjdhfkIZfzXbzu mVydGlj JGjdENgrN049JAHfyUybWv2 BUMD5I3FuVpl8LRHldEbbYS 3uxLRbWQufEi4qxXtalAaiC W0pEPDh vnngHUCqgS5wTKUykHWtfTq yVO4hLUDxcwwjt890GcZpXN R0DOVusASxQ2LuqY2gWhAxY DAwMDAw V0PgoUGlDZkvH041RCacKyZ 8DZQvdrElR7KdBMAnuIquFy B9o9G0Fw1FUScjsGR+PC90c p30B4Hm YtnbLte6GYIzKAD3mJK4pA1 jNUMiAHaog1K0oUY4A7Dpfu Egvb3qh9fnGWPkBLwaL64gg XXga3H8 JDEgdDP1TXJtwBqhNnAhcZ5 3Oyc+WGQbqHqlu3WiXbavz3 pfu4bjcFp6UnXmFONpaoVkz WduPSJ0 l6XfVb03S58hKJwzLOKhEOM xTNCtYUIasZujuj3fsC4rCe 8+ZHOsrJU4tNM6kL5xPcXaM sU2IZvl O576DqMwiMLwCkcgv6hpt5o jpKi9KrIdPPFvlaAbuLliXJ W5n6EdRt94R1SucSbmx2OxD es6gy37 jSOev3G5lIQ8L8BgWYXmlho jeCTlcThbDG6gASQxlkuwZI ZjwL6eKGLiW4t5IcWuEaI9O WgxY8Dl fwQ0PIEhpNKrSXJgrRLJfL9 kcjbwq3mpzdjqWrSfATNmGK s3MXa2FDDzqTgcRbViAZX2Z zA2JTI6 eVGhmE8tgKuzonzocL7vCje +ADv1f1qaeDRfGN1hrNA8VE 86TO63hTQno7A3eJT8H2RxE GRpbmct vdukiYP9EELeVZSfgD29Yc1 yjRryTc6cXVIsXKZ3LBQosG KvG4TzbQ0yMcKlHHEbHWJaX 3RleHQt LZdkD959TTdkWcH1PXGzbkM uE2FfSINpcUxsXvM6q9E6Sj 8SCO98EF96MS80sNPfj0W8a QA7K2Fs ZWGuznnltvvgoLZ7FLMgQAD vyY65Vy9wkXjpPg9hNTBjES G9HBKnoHRrW2PwwF0dIwNpB DAwMDAw F8BlhEZeUUquQ800KZsvFuH 2LXOiseXaN8ZhHVLmzAtpPz R7a5Z0Mb9JGz06XO28NN24u RNso1P0 nXS8P0EeGHMgwldpkxvasRF 5AFCxXGYlpA71Wd9xxJqaXd 4eQYEcJYC3IEIqvLMdW8Rxx A2vSoOs FDNjGWBhO6HmoMWbIEgvU29 0JNfaZqC3UWKcveEnS4QeQF NimFbeWfX1l0Z9On3MGSugt kk1H3Uo PjwvdHI+AY60CYCtLR12fOA szRIkk5bmaSj9TuXbZILgAH F9uAfzPSzze3EjOPSlN54dy DSrk8W6 IGN (more content not included)... Normal [facility] ED Clinical Summaryon 2023 ED Clinical Summary [facility] ? Urgent Care [address] [place] [id number] Clinical Summary PERSON INFORMATION Name: SPIKE NIELSEN Age: 43 Years Sex: MALE : 1980 MRN: Acct#: Visit Reason: Sinus Pain/Congestion; Body aches; SINUS PRESSURE/DRIANAGE, BODY ACHES, ABD PAIN, CONGESTION Arrival: 09/14/2023 11:11:56 Discharge: 09/14/2023 11:45:00 LOS: 000 00:34 Check In: 09/14/2023 11:11:56 Checkout: 09/14/2023 11:45:00 Address: [address] [facility] [address] PCP: Mary Perla APRN PROVIDER INFORMATION Provider Role Assigned Unassigned Marika Oliva TRAINING SPECIALIST Nurse 09/14/2023 11:13:30 Brennen Ferro PA-C ED PA 09/14/2023 11:29:53 VITALS INFORMATION Vital Sign Triage Latest Temperature Tympanic Temperature Temporal Artery Pulse Rate O2 Sat 94 % 94 % Respiratory Rate Blood Pressure /72 mmHg /72 mmHg MEDICAL INFORMATION Medications Given: Allergy Information: Wellbutrin PHYSICIAN DOCUMENTATION DISCHARGE INFORMATION: Discharge Disposition: Home Discharge Location: Home PATIENT EDUCATION INFORMATION Instructions: Influenza, Adult, Djfu-qq-Yjwu Follow-Up: With: Address: When: [place] [address] [facility] (1) Within 5 to 7 days DIAGNOSIS: Influenza A Patient Understands: Yes - Patient/family/caregive r verbalizes understanding of instructions given Comment: Normal [facility] ED Patient Summaryon 024 ED Patient Summary [facility] ? Urgent Care [address] [place], [place] [id number] PATIENT DISCHARGE INSTRUCTIONS Patient Information Name: SPIKE NIELSEN Age: 43 Years Date of : 1980 Reason For Visit: Sinus Pain/Congestion; Body aches; SINUS PRESSURE/DRIANAGE, BODY ACHES, ABD PAIN, CONGESTION Arrival Time: 09/14/2023 11:11:56 Primary Care Physician: Mary Perla APRN Attending Physician: Cassidy Hummel PA-C Comment: Patient Education With: Address: When: [place] [address] [facility] (1) Within 5 to 7 [...] doctor may want you to: ? Take aqur-urb-efkyqmx medicines. ? Drink plenty of fluids. The [...] Applesauce. ? Rice. ? Lean meats. ? Sanders. ? Crackers. ? Do not eat or drink: ? Fluids that have a lot of sugar or caffeine. ? Alcohol. ? Spicy or fatty foods. General instructions ? Take ndjo-dio-cdugwge and prescription medicines only as told by [...] use soap and water, use alcohol-based hand account director. ? Keep all follow-up visits. How is [...] have mo (more content not included)... Normal [facility] POCT Rapid CoV-2 (COVID-19) Antigen/ Flu A&Bon 09-14-2023 Influenza A POCT Positive Abnormal Negative [facility] Comment on above: Performed By: #### [id number] ####[facility] (DEFAULT)[address] [place] [address] Influenza B POCT Negative Normal Negative [facility] Comment on above: Performed By: #### 6 [id number] ####[facility] (DEFAULT)[address] [place] [address] SARS-CoV-2 (COVID-19) RNA IZABELLA+probe Ql (Unsp spec) Not detected Normal [facility] Comment on above: Performed By: #### 7 [id number] ####[facility] (DEFAULT)[address] [place] [address] Urgent Care Note- Provideron 09-14-2023 Urgent Care [...] 1-2 times per year Other Comment: POB: [place] - 02/26/2019 15:28 - Carmen Jama Substance [...] needed. Impression and Plan Diagnosis Influenza A (SKS48-XG J10.1, Discharge, Medical) Plan Condition: Stable. Disposition: Discharged: Time 09/14/2023 11:52:00, to home. Prescriptions: Launch prescriptions Pharm (more content not included)... Normal [facility] Urgent Care [place] 024 Urgent Care Record [facility] ? Urgent Care [address] [id number] PATIENT DISCHARGE INSTRUCTIONS Patient Information Name: SPIKE NIELSEN Age: 43 Years Date of : 1980 Reason For Visit: Sinus Pain/Congestion; Body aches; SINUS PRESSURE/DRIANAGE, BODY ACHES, ABD PAIN, CONGESTION Arrival Time: 09/14/2023 11:11:56 Primary Care Physician: Mary Perla APRN Attending Physician: Cassidy Hummel PA-C Comment: Visit Diagnosis: Diagnoses This Visit Body aches ([id number]) Influenza A (J10.1) Sinus Pain/Congestion ([id number]) If you received any narcotics, sedation, or [...] legal documents With: Address: When: Mary Gonzalez [address] [place] [address] Business (1) Within 5 to 7 days Medication Information: The exam and treatment you received today in the [facility] were for an urgent problem and are not intended as complete care. It is important for you to follow up with a doctor, nurse practitioner, or physician?s assistant manager bilingual for ongoing care. If your symptoms become [...] so we can reach you if necessary. [facility] has provided you with a complete list of medications post discharge. Please inform your trolley cleaner/provider of your visit and for further instruction on these medications. Any specific questions regarding your chronic medications and dosages should be discussed with your primary care physician(s) and/or pharmacist. New Medications [facility] [address] [place], [place] [id number], [phone] benzonatate (benzonatate 200 mg oral capsule) 1 [...] kg Body M (more content not included)... [facility] Coding Summaryon 08-24-2023 Coding Summary HTMLBase 64 EesxxfscTXf2zKv+PGhlYWQ +DJ5FPTRuR56udOKnaR0aC0 NMTElOSywgQVBQTElOSyIgb yJdBB2iuCFhMMUh IC8+OM9bOBVsVdevdCDlj6H 4kEJ6K13xgt3wQKdhaAG7MD KbCnRqofxtj7suxMe9PEmjA mluOyBt IWMvbH75ZRW0xE78Vg46pIV hwEGvc2sjdCc8AxAlLGSuLA K5xBluOWght9PwWBNpM26pk YNji6A0 VEGmeJnagWOqXnDtwYN2pZ9 tVGkwumndj2tvwvvyMrl6sy 32zKSke4X1kIO6R8MofmM9P GJvbGQg XbbckEOFyI0eervxf3xhoss lWuFkWVSzRRv2GHo2QJNsdK gxVqZaVV83UCZ8LXFnwySkY 2FsLWFs wAlcJyC0d8W5Jk9NG7NTVtl iF9TLMOEEYKxwsCY+PC90cj 32F3IlCzpiIfc1KZVoJZB7p QP2uA5i UUBdIKgfj6D4dWD4L7DqjrW scj3ge9ggOPUyNMciV34ncO Lqo8K1STStsFW2TMEgwDtuG iBzaG93 Oyc+MCKllNbum2KvYtxea8u hz9xxwPd4OyovQKMpihNvbP ffDDG5r1NnVv2jLMOxvQU0o YW8hL0d RqKkRzC1JAtcU256SrHgoDN hIqgkF31jQ7RceRH+PHRyPj i1ZXUckYdySP8cE9HxKYEbd mctbGVm dTdmVV6tVPJtacqfOXOmgG8 cSILqW5r3SbXaMaJ2XDfeT2 DjCTXivezsQa22rB8dWaIrF yE6QUhn I1RzomG7IDEgdFUtEXspNGX 4K52zl9D3BRKfKHRmBJI7oJ G6nX6uuHjotqnlbUDgrAbpn mVydGlj BXcyCXstR043CKIchBfgVaK vZGluZyBEYXRlOiAgMDMvMj AvMjAyNDwvdGQ+QMWoBTU5c WxlPSAn aVIaILczQa9ujXvjvUmzOI0 sWZRoujbbRRPyfW8cNZFkbA CwsZzcQK9fIVRluuktz093D iAxMHB0 JTQyhGXqC2DwgZ8iXzZcBEJ pPFItL8SwvWAtAAnlS139UQ fwIuQ5JDCrtdFpE8FjZTBws WduOiB0 r1Q7Au6Qk6OqacbfX3DtiBF uInWzXnoyZCt1J1KzVogigM I+DY49ZTMkUJ88QNb3LOJ6m WxlPSdi FURlK8VphN7qRqHpZYGpOPO kOyc+PHRhYmxlIHdpZHRoPS dpPOCqOoOopDwoPS0gMe4uA GVyLWNv cCycjXCjKvTen0ihXVUdBNl rEI4riSdoE5VijQQ2ALCza8 g9Yy69R75nU8MmhSP+PGNvb KV9yPW3 kI8eVcTsEzS5EMxyV669IkB xrPTwGetzs8jyq4idqTb2Qw R1ZKMzotZtrQifPWP6m1MlI u50I70y IHdpZHRoPSIxNSUiIHZhbGl huc6gnX0eTl6+ZXErqKS4sL H3vQ5wXpJnStO6NJoxG410M nRvcCIv Uliov6fig8orxAe4DfUzOWK gffNesKmkXKS8y7BiEp03K3 OjmVqxp1WlWrg8la30rXPwo 2N2aLI1 U0QmWPJmmuhqaMIcsYryPU3 pKTSllusvIFHxaV4bZPOxI7 m6HzDoGjT1OAzrM7UqudC1O GJvbGQg XEOfuFLHlR1okueju2udfow qFnLoVSDfJFy3MAf9ONYppR boWhLvCUU3NdH4LEE6fIIih F7zrAli gkalpW1bFrt+MWP7bCJbaAL UZF8wHfpxuEC+NKVsAGZ8xA azMFuqGKRqsE2uXBCvW1b1R iAwLjA1 NGtfU2FghdA0QEJekRVtARA ygNAHrE7vwxdwv6ubpunuPy PkHXWuYVq6BKf1KRJpiUqhV iBsZWZ0 WdU4LYA9oTSvgJ5gyTwofjt vzP4nCgw+NmsbeAklTHI5GC f8X3GuFyd9YCFmfUwnGM2di GFkZGlu Dm6dkKhhdZllUR4jQYEzpxi dd043TkUcy6clOUZlzLUrOY zqAIL7B86sv2F8LVYpLWHnK YC1mDB4 zF3dqDytdnumlOYxaUqzfaF goLhuQHfnKJejB104TIMoyZ yqNrQeLSy6I9DhSap6OVFwo NbfAW4p lFXdROpdSp8ekPcsuDqeZT1 rWLRuknakq240YhIcd7vvYQ WerQBeRNacBGE5O25hg1T0C CMwMDAw BYG3lHG4mC7hqIxldjiggWH mdDsgdmVydGljYWwtYWxpZ2 13HYUneRweAuVntOk9C0RdZ kp9OMZc xFtlBP7eiEVkMZzjPp2xoOs wfTwjHW8eQKWcrxrua442Du Arz7kkFERwuOYrVBfeWSH7Z 48va3T3 CUWhFSHcPAW9uBJ1vP7mzEl nbjogbGVmdDsgdmVydGljYW bmUOrjT714OOGnfIxfZdLfb GllbnQg SKpzSYs5Z7MlDpjvpXS+PC9 7ZBXyUP17sLCuaPEhk8zrsU w0OjLySZKrKVP0oVkwRQvwf 3JkZXIt E81xgQEex9H6RYLcsYcubWQ jMtFyhQF0lS7wGPzisramq3 rfowwxAnggf8xjop64qU14A 29sIHdp ZHRoPSIzMCUiIHZhbGlnbj0 phS9wRg5+YVYiiHP1gKL3wN 1zBEIpIyS1WOsnG625QaTko CIvPjxj q9ons2cvfHb0PeM0LJHiefV pbUpoIYB4a4SbDv36C11wUW dpZHRoPSIyMCUiIHZhbGlnb t8hmM5k Ii8+VGBijWW1tWF6eM2rBrY xKnO9DToiZ624RfMpvDXmCx exT02jJ9XepZB+YAMwLiy0P CBzdHls BI0noNSvVAcrJp8pBJH5AbL xLmQmBMtxB5CqCEPunmoafc bwfCU2JGWnAORwwY44Vl5ps DogMTBw mFFKbN0sgvxiz5cwdnutEgM jACXzUCy8TVl8OTNcvNerOz RuMBU8FmV0PDG3hVTvdM6qi Glnbjog vG7lD2SqOFFcrfhnSd05yZ1 lVhWvWlF6ABmrFsw+U0FNUy wgQUxFWEFOREVSIExFRTwvd GQ+PHRk ROC7dBixEOcrVLMsoG9eYCJ xU1q9GeFnYgA8CIpsK4BjZV JvlifdQs01sG8sIwSgKqL5Y CafB8Vt anN0ZGQdrRFjWDtsRQM8T35 ko5M1AOPgJXRqXQZ4eWU9iI 1hbGlnbjogbGVmdDsgdmVyd GljYWwt DIryH855XYNfpIigUaLmZrT 2RhI1Uwm5R0TvWfz7JTLxfC rnLO2ctOIyIAdcMr9ccOybi WuoMW7s NXGruiurNUMluS7hOOAooWQ fmVavVB2xNJEiwwmyn521Uu JfCXP5EBAasPQvZ4TxzK6nN iAjMDAw YFZiL8GqyTLrQIhpB753EVt hSdT9VGXjezLbU0KxGHFqvC zkHfM3w1L3Yu96LUCTQWQkb zwvdGQ+ BITxDSQ4lUhwVNnwTTAnjX9 hZFZwW5p5GpPvVlK1ZXlsZ2 OmLKBpxqonXg77zR9hSnWqL cU1HYlb U3GzkkH4IOXhwCUlDBrbZBZ 8S12do3W1URVlDWEgOJX9pI V4sS5nqHnwgbiaqAHsnCymf mVydGlj KDshBOppU255WCWuqXuwPv6 FEHN6G3XwHte1MJRsfCnqBK 6cqXIbDDxpSq5bjSvadVpmB X9zGNNv kubbUUEkjY8uDBXpeMHfwMm nLA4iDUXuvwoud625VrXeCO V9RNUioJXgD2SwiG7pUrYxC DAwMDAw M3TomBDsMOqdJ533WRsmViZ 1XODjdvYfE2UuQCEwvUjuLn C2t5N5Lv0CKKpecBV+PC90c r07Y8Xh NnnbOzl0UWExNDK7nUB2jG5 tPKZdGCghj7Z8oSE6K2Sxjn Odwy8qz1vrCECuIPapL11ck WAzd7Q3 HKHkvCE6HRUdySafTjQxaN6 3Oyc+COKvsJdfy0KtWgelf1 wzt9deuWm9YyOaKCWujbUrp WduPSJ0 d5ZgWk51B83vGFkfVDVbMBP aUNAjZZWudQxkpt2wjR1rWm 8+UTOujSF4hUN1pV8tAeKdT nN7OVeh P461VlWqiANxAjxvf2yum1g owUf2LrTxPJRhcpOvyYkpWC P0c2GqZy41N3QrjYgyz5NdO hm3ro71 zVYyp2Y2oPS4H5RmUBJymqi zcNBcaRjpIZ7mRMJbfxsbGX AwaT3jXNZaX0h7AkWnKaE0A VxeX5Hx xyT0XPCdxJKaXLWohMQJqW6 ummwbh2zhqosoQxDbSQChDO n3RJs0ZAHkyMxtBwKnNAV6L aB1JTX7 lMUykX5haYykzspeuG0aEmv +QFz0k2ecuIEmVH3xcWQ9GG 71HK07lUOki9V5uEU4F9ReW GRpbmct okffhYA8SBUaWCRiuW97Mf3 nvPtxKw5vZDPtNHF6PGQttD NfE0DtcV3nRsNbIIRgZRXdN 3RleHQt UXuaV611BRfnKmQ9YETidlZ qS9OdDOUffYrlWeE1m9B1Xg 2DPC85YO63ZA50yKIzr5A5w KT7D3Vu OWQwdxtmpcslrOD7VKLiPVU zeT35Ug7sxUulRg4zRGCwUH P7LTWycFHjN8LxlB9pFtHlT DAwMDAw D7RupAAnPOjxJ164JJxfCqH 8PIMwyxRlB1HyTTWqiJdgDy F4m3D4Vi6PQz75YB36ZP80n TCrc3K7 zBY7F1AgSXVwclhjuymbrBI 8DIDbJRVhnU54Kd3jgPozGg 9eLGLsEWB5ILVctGGsO7Agq Y3xMpWj SOQwZATrT1WsmMYdGAazJ27 4HSryIeN3ZZHskzOiX6AdRN TflZhmGnT0m5U5Dx7ISYesz oy1R3Yv PjwvdHI+MM98JTAnVF49wEG gpJDtc0cfgBz5RfDhWJGeJZ T4oWznZMpem5WxLNLpE14xr CGau2P8 IGN (more content not included)... [facility] Testosterone, Serum LCon Testosterone, Serum LC 404 ng/dL Invalid Interpretation Code 264-916 [facility] Comment on above: Result Comment: Adul t male reference interval is based on a population of healthy nonobese males (BMI <30) between 19 and 39 years old. Kaitlin, et.al. JCEM 2017,102;3044-7783. PMID: [id number]. Performed At: [facility] [id number] Danish Sebastian PhD Ph:[id number] Performed By: #### 1 [id number] #### [facility] (DEFAULT) [address] [place] [address] Provider Orderson 08-18-2023 Provider Orders [id number] TGTIFF [facility] Coding Summaryon 08-10-2023 Coding Summary HTMLBase 64 ZnfslyenMMn6aAj+PGhlYWQ +MH6ERUUbJ67jeLIbqI7bB0 NMTElOSywgQVBQTElOSyIgb aNfWP1wbTNxGVEy IC8+KN9yARPwSohvdNXkt4W 9sNU4A60pmj7bWRoumUP0IJ QcJxUmirpsu2igdAo5GZcuU mluOyBt KIMonY83UBW0cF48Uh39eMF jyOJsl1zfhAl2ChVhGROxSN V5dOpzUKqoo3EjYYSvI68yx DCql3Y0 ELJqvNgzkWNwEdXndRR5fU7 yGJxbczxwz9kayawcZot5aw 31kOShx5O8jLV2P6HdzlH4P GJvbGQg DxhhaVBFaC3tpashn6kpaax pIdVbSKWnSHi4DHd9WMQvsD gvAnCmCR89FZM5QYSrqqGdJ 2FsLWFs dEhcZlT7d8Z7Ce5NC8JVKzb rM8RXQSPIJUrkvSA+PC90cj 62V0XkUlkpGgv4ESFuOWQ5b PL2lH1w LGFaHEfdp2O7iUC5X8AunmN wuh7nw4epMPTmINkxP74nlL Xec7T7VQMqpAX1GMOjwJqkP iBzaG93 Oyc+RFOtyHqql0AcTdtmi9r oy8jwdPf8ShmvWEYdvwNfyW owTHY2j0AzOh7gWXAfyWQ8j ML3aY1b IkKtQnL6HDtuM550HiQuuUX zObxcO94sV3YasYJ+PHRyPj r6EZIrqBgqSO6lN2QzYYFas mctbGVm iXdyVH9sPDCbtyjfCJKkzL6 vDQVgT0s5QnEzVsM2SOxnN0 LrGVYkxzccWu23qF5yHgPvT eB1PYzb Z0DynlQ1ISVguJVkHYzxNRA 7Y20kw7N6LFIsFSBaFLL3dE C8qV2frEheirdggNKnkTiev mVydGlj TFemQLcpG257DPUraZpwNmK vZGluZyBEYXRlOiAgMDMvMD YvMjAyNDwvdGQ+FVUgONM2w WxlPSAn pDPzDWpiWq1vmFeldNumPR4 uFQTfawcxKCKeoM3pLAFeiW UgiPyoRA6gDWYqfyeur603P iAxMHB0 SIOkpQMdF0AszG9oOoTaGVU mFOZjJ7LolLXrVKqlF779CG rsJiY7QZEyllShZ0NmEBUsx WduOiB0 o5L4Nq5Up1PwyyrvK6DhnKQ uPmGmBaikWCw1F4EyWwdsrY I+MA25GHWuKC74EIs4GDA9l WxlPSdi WXUnS8PppP4gWmCnGTWoZDO kOyc+PHRhYmxlIHdpZHRoPS hsBJQbZaPfrTcuHD9tHd6zB GVyLWNv uGxddGOvBkXon3qwSQAkOLo mXR7eyBweF2XwfRJ4RPPvb5 t2Jl10F11vT7PydSD+PGNvb CX3oUE5 xZ3iXcFsYgJ3XNyrZ449SsZ vqBVoUifjk2gdv5omzBr9Gu D2KPQmqdGedPdgAVD5m2EtG h26C69o IHdpZHRoPSIxNSUiIHZhbGl aks3rvA3fMq3+UPGgdSW5lQ A4wV9mLhSeHcV0USzkS488C nRvcCIv Yxhjj9nvi4djeCf8SnEdYUF lzfCxnExcPRW9n7KrPd05C3 IweOfhp8PeIsd6ny42zYFzi 9R0hLU9 A3ZnIZLxtkmcnYTrmSuiQK4 aPGZulieaEVBwjO9pYEOcQ7 s4KkUbDdV4ZMdnX2GvqvF4O GJvbGQg YORpqYBRkX8pqlrqk1pffhf jZuItEGDtBDy4KFi0ZOZtqL qhQpFiLFX2ZqD1EVV5wFTie X7ilYeb lplctG5bSxl+UPR3bXKoqTD DNG4iZnhdhZW+XPKnHDB4jE fpUXztECYxlJ1mEYRjN5z7Z iAwLjA1 XSsmJ0HpzyF4XCHrlWMfAIR waMPKeM0svfjhp1yhrdmaEs ZoNCWrFMb6FCp5DBXihLvpY iBsZWZ0 JcD4USP0dWOuxB9mrCakzyi jmW1gLpj+KuxqvZouVSQ2RP r4D4VrExo7EFMkfArgKS2bt GFkZGlu Il3kkZolrPerGH2uYECagbs po525CwDst5wnIIDwzAErFB jzPTS6F73ej3B0OJTvQXWpZ HB6nGT5 dR3isBinormrjRPfzQagykS tjIbmDSieJJdeM093USKjyL uuLnCtFDr5F6LjZjx5MMOna TsqBO4l lHYqNJquJd0okDzztKwfHZ8 wAXLaibcjk126EeYuf4xfEQ EaoHIaPVejZGT2A67ps3Y1L CMwMDAw DMF6pUS7yA6yiSwickpepZQ mdDsgdmVydGljYWwtYWxpZ2 97QAQwkQtcLfTaePu1S0MeA bg5PNDq tUgdVD3rhTSlIMrlHe8hqHq vdCjoNG8cZJCwvocew884Jr Oze9pzNXLbpEUxMTapLXG0Z 38ur6K7 TSSiRUQmKPT3nVM8qI9ubPb nbjogbGVmdDsgdmVydGljYW mdMWheV225QEMtgTssErGgc GllbnQg BKlqAZx9A9MpEusoyEP+PC9 2MXVbMP28pOUgcAUzw0wjuT p8UiMpTVOyZYW6yPnzNLulv 3JkZXIt G78heEJnn7Z4GSNzjDknqLD qSzSqeTP5uW9qDRvxobwyn6 ysdxelDjlgs7jzfy96qA54B 29sIHdp ZHRoPSIzMCUiIHZhbGlnbj0 lrL9eQf3+KDUdcTJ5kTR0qZ 8vJVBoTsY1UFxhX919YaIfl CIvPjxj r8tpo5vdeQh6UoE6OMLzifF ccPyjTKQ0e6EuEd62T92fTE dpZHRoPSIyMCUiIHZhbGlnb z4rmB0c Ii8+BMYjpIK7xIK3tW5pGgF qHeE1CLfjF930BgEozJQcEq uuR14bC0DtdKY+LWOcSke9I CBzdHls VY0jsROrKOyuVy5uEPI9WsD hXqBuRTdyJ9FfBPJincwyab duaRX9AZLbXUNyzS08Ft1ej DogMTBw xUIZpO8swoinf8iwuftkFeJ aZDKcKMt0RTn1NZNnuOxaAs WzYBO9FnO1MST5aHSrgO0xm Glnbjog sP2cT2ToMXGuvbimVm02wZ8 mNzUbFkV3YYxsMyp+U0FNUy wgQUxFWEFOREVSIExFRTwvd GQ+PHRk PHW2zPpqEJwfPREbzJ0iIDD tB7z3JhWlPvG4EOjkY8DlOG RomckvIp07nS1cOlOkUkP2E HwqB2Fz ugS4VBFyaAIoSKghWMZ6N76 mo2Z6TFQjTWIuUCZ7zHN0oR 1hbGlnbjogbGVmdDsgdmVyd GljYWwt UMxaU561KOBsfKmnYsStVuZ 3StG5Tll8F1DxOmj5LNNgcM evAC6qqBLxSZdtVs3seKkwa VwbGS8i WZVqctctFMLsyD4yTOYepJY oiRgnUA7cUVGfaavew879Cm TsZXP1DNDrbRSmG4ZmkJ3yD iAjMDAw JSMnV8YklBAdANjuS552MGt gZzV2ZNNgieCtE4RbGBKidD dfNpU9e7D2Bz68XKPFUUVpy zwvdGQ+ QTIjOVM3sYjoAUqzPBNzuB8 oQWQrK9v6PgPjQoV9WLejI0 AvBQRmkqatQy92zM2lNsJzL jU2RJgc V8IezxF3ZSOjkZSwISgvMFN 8J89ch3P9VSEiVTMfGMQ2lY R2vO6cnLfsccozeTZvwZtty mVydGlj CHqcTNcqG845MUGcpDzjPj6 LYYD9U3RcTme7SZPnkZotDF 9tjFIuNUiaFt2mvUyhgQrqN F7xVHNk geyaJQYmhS9qLXLidZCkgDi oTN7eFXWbmkfjq081CxJhAQ S9GTIkpSXhD0LujX9tRyBaL DAwMDAw C7AggRWiDTobB804GIafGvB 6MKIkxuTlJ9XzFOFjiLzgQa G4y9I0By1BPJlxbBY+PC90c h27C5Tp SqlbWee3FCOaCOF5hCC5lE7 aGMNnYSfkx0K6qQP9J4Clcj Kdhh4vc8qsBIOcIUuvM84rg HVxj1R3 UBEhfQD0ORRsrMidZeIjjO3 3Oyc+EICleUfrh7AsZonoy1 ncc5etbXs6ZlZdDEJrwfYws WduPSJ0 w2KyYu54W21nQJhnGFUmPII sRWNkBSGpnIluve9fbD2kHw 8+UFLfgCU6eUZ5kL4cGyNjN vN4SAuy Q970TpGymVGyRyubi7qjr9d daFq8BxKlEGCinoFcxWdmUG J4b6TkXe49M0PcxBknn8JiK ne5qt57 xCSqe4H3lRR5L8DgHBUcqcj lqBUmaPrzVF9gKAJwkhjqGM JqqO8jWTSkQ6i6SxAoMfV8B BueD1Mp uvI6FMOwcIEwLULmtSBKfC6 hhckcc9fhsvepOeGfCDIxZR b9ZSf5ZFPwhSvvLiUkZHY3L zB0JJK8 uZEhdZ0qbLptvuhinA6mMnm +UKg4f5tpmQCeJA4xsED0WD 47OJ67lJYtd8O0gBD4U2QlH GRpbmct efhllPP4KWEuSFNcsR48Ai3 muXsoXm6lCLNcXGE4IHNueL KjY1PegE4oEeRvANVyMPRpZ 3RleHQt KQuvA337IJrqXkM3QXBvxsR cE8ZdHRCcgOuuPkC7r9P5Rw 2KIT43EP38ZQ18sYAcc7S6w YF9I6Mu HYVxgxffvlihbDO2VOXvDBF ezW70Ns1khPayAj9qBDTlLV V5OLWkhGDhJ2YlbE7wCxHqY DAwMDAw X0EwpRHrHOetK107LBhuAoN 1WVLskaMgL6XwGXYbgXwiIl G8k6T7Sq5MQv95DQ20LY68r QWfu9E9 gNM1A9UaBNZjmmisbgkogJA 2ZFOxEFPdfL08Fq7azUixHc 9gXDHlYQA2OFFwuJGxZ8Sxe X0wIiSi PVRwFTOcL3IrpQAuYUgfW19 9UDfdWrM5OGMefdYjE8SyPO AhyJivOgX3o9X4Nv3CNOhtv bg7F3Zm PjwvdHI+CS47MQVgKU40fYX wzSPbw2gphKm9QhZvEXUkTA U5aNuyOLyqw3HxMVKtX34sg SShy8E3 IGN (more content not included)... [facility] Coding Summaryon 08-02-2023 Coding Summary HTMLBase 64 WbtofcssTRj2xMt+PGhlYWQ +QE6KXOUkX03tfSZwyU9mK1 NMTElOSywgQVBQTElOSyIgb vXbYF7qnRJhQFSw IC8+MK3jFOXuVocxoMSzt3A 3aOC3X03esd3kPHxndFA9LB WgOxFkexxxn8zouBn4DBaeT mluOyBt JTDpzK77CCA7uS63Ta76oOX lxZKsg2yenIy6JgLrENWyEA Y6jKknFTqdj9PrBXYiV03eo HBbu2B6 YWPcaUaevMFjQdHomJY7oN4 nORuxfebph9xlnzzlLca7mg 41nDJnz3H5yQP0S1WqjxI6U GJvbGQg HtlyrLHCcU6wkmnna0vnejc cPgNeNKAgLYz0IXu6FUKgxJ hoYzKwOU81QYV2MBFnedMcL 2FsLWFs jCozIvY2h0G1Cz6GH1ESWjs nG4MZSAGXDFvzzLP+PC90cj 85N7RuQaofTqo8EMKpCMB5n SY0yA4v BGDkJMqiw5H2bOA4N5AdvbF ors0ig6fsFLChQYvoF87ghD Ojz9X9OESwiWE9CGNlkXpzE iBzaG93 Oyc+TZJezOiax5TiYpbfm5t ht1ucwTu5ZupkDRRnijYjnD hlSPF8l4McNw8oLPMseRS3o NV1sB8g PaBbRtL3XMugE505IzGznUQ dXlcsI80hM2NzvAK+PHRyPj m4FAAazYncNA4aK5EsQWRge mctbGVm vHsvRK6tWJZtcdgmQCTuqJ8 dQBYcD1g0UlNeXhF0UIekH7 GvYENyrdisGs00bV3oZgGoJ oL9QNgf H5HxwzO1RJFfoZNhUEoxVSW 8P19xd2D0AEOgAYCkITB1aX N4dS1clBfpwzuglINrrLjbu mVydGlj DFstRUdgW267FCEieMihLxN vZGluZyBEYXRlOiAgMDIvMj cvMjAyNDwvdGQ+EBSsZHT7w WxlPSAn uVTcGEnrAy4acEufrDphCH3 yQYDdbjofNRKycS5jUQQsmE OjtRykWE2oGQIzzyahc103A iAxMHB0 NPKhjWTqW9YntN8uDpJnOFZ kAPCsP7FlmDYsKNklV015UR rnZbL1VNBbfyFlU6MwSWPvs WduOiB0 s9R4Sn1Sj9IsikxjP2MniVO sIiFaXgasEUm4K3ArErydjE I+UK94RNJsJJ21FXr5FAS1g WxlPSdi IKFgN4XxeK4zSlMaSLKxWYT kOyc+PHRhYmxlIHdpZHRoPS bbKLRcCaNjwSfnAC5sJn3jY GVyLWNv oIumdQGoRcAku5xqCSAqFUi rTZ2uhZuiU8ChgHK4OGTum7 f7Fj24E32jB8ZbwSH+PGNvb EZ1iSS4 zJ0pTxFjGlK4DFgaL530PoC wyVYnDcvil9qjh5styTp5Kf F5RBAnojMdhMkqSBZ1o5ApN p52W09l IHdpZHRoPSIxNSUiIHZhbGl pzc0fuV8qPl3+KPYqxBH5lX F6iA8qXbCxMxR3EXtnL978A nRvcCIv Mcopl7rot4pncPl2JfYlAVO aluJhyKdvJKD2w9SaBb95S9 FyaKqfm4XlNtw8xh65fBFox 2Z6uDX9 U1SlAHSzemnlcXZaiGlgAO4 qBWDraxbqRUInvT0qXNIxM7 c5JgOyVmD6IQmdG8SnqjP2S GJvbGQg BWCpdRFEdU1tdwwqn8ozovc zHfOfWEOoIGu1XYx4LHJqfO xwKySlBVY6ZuL1WQM4wLYaa N5coHug dcjpfJ0cYpj+QBD2zEPwhEA OAK0kBvtdqQU+JAQxSMD8jJ mwBHotWQFyjH0dUPMjA3l9M iAwLjA1 PTjpL5PsjwQ1UYQliULgFNK qhRHUsO1nbiwpx4zwerplGm EvYEBbCIh7IWb5GPYdjTqmF iBsZWZ0 JcA5LBA9bKXuaU1mdEihbyz pbR2yTed+HxqyeQlsQIW8BQ l6W5UeSyx2DCNrpMfzWT0xe GFkZGlu Gj9dbHmaeOkhSK2fAPEbvta qa615VcCez7mqTOGrdEVqNE mlSCI8P31as3S6EDKxLYIyE SD6cNH8 pE1ojLqomgaxhIQdfAmunuV ulXnjRItpNExrB816AZRsuB hpTjUsUEv7I0LlFhj2RULeb ZopEE0l rUCwFSwqIm6mwVqowKdzDH2 jGAExsxrup048YeHkl6sjOR ObcQZpPUkuCDR1T10fx5I2M CMwMDAw UJY8yNI0lY4jiLbxykakpAK mdDsgdmVydGljYWwtYWxpZ2 73AOSwfQqkOcGobXu0F7QiK tr7ICYt gZsxYJ3nnJYxUKtqZb5caKm ksMloOO8dRDVsoubzs723Kr Nkg4ysXLCouGApJUkzPHI1O 75dj8J1 HAIhISBiHBD6iWQ0sJ7taCk nbjogbGVmdDsgdmVydGljYW zjAWpiL450AYJihEduGdMid GllbnQg MBdoAQe0J0YlOddjtFL+PC9 0NRWvSS44vZKlvRMol7vcuQ e4VnHcUSEnBCM3aReyIYxdp 3JkZXIt O88nlWEjy9P8NEFktVosgMK wCbLfdFC1rN7gOQyaaktzj7 cymcnuMwght0eweg87rI20N 29sIHdp ZHRoPSIzMCUiIHZhbGlnbj0 obP4oKs4+BXLfhME1bTE5rS 6pSWQiCpL4ZDggP047RdOxn CIvPjxj q0vwq1klwSd2CxT5SKOrthH vqBgwUES7a5MyBi82L69yGN dpZHRoPSIyMCUiIHZhbGlnb s3dxD0j Ii8+FAZdkWO3lIH6aX1dXcC wFkN2GUesB975HgDbtNYqQc chV82lO9GwhSQ+OCVlEru3X CBzdHls SU4wlNNoPWekYk6tZTU6StC oSuTuEAueL8CvTQFgsxdzjk qvoVK4VBGdJIPkuT77Is6ch DogMTBw qAPKjI7ivbpqj5neuztqJjZ gIAQkQNy8WOl8OIAbcAgqNt UdHOU4CnT1RYB5cXSaoK4cq Glnbjog uD7iY1TcXSOeskcqZs10oW7 hWnIaJdN1KJoxFum+U0FNUy wgQUxFWEFOREVSIExFRTwvd GQ+PHRk SQJ4fCfkLHnpROFihY8uEJV zX7u6BiGoCbG9OWcvE3RhXU TxqbtoCk89fV6sMtAkKhY1F CrmD7Cm ryA5OGJnfTSqZYmhZYS7P44 wf8A7KCQiSZVmNWG5xUO8wX 1hbGlnbjogbGVmdDsgdmVyd GljYWwt DDyrY189QTYkiPeyXzHuInI 9FfD0Pzi8F2ZvXdp6VUHxiL acNO8lvFCtSLkgPk3zmHeym EgzUR0t MUTdbrvlSELxqP4zBYVghHT yxBxdMY9eYPKmsknsz058Pc SxOTB7WMChcACgV0LgaC5hC iAjMDAw UPExU0XmwFVsMHegH029JZz vXgO4MMTzgkKmX3KhPUOejC cbSjS3h7I0Li97EDKLKSRaa zwvdGQ+ ISLiDDF4vWzhDOboYJMgnB4 kIHDwC3p5SpYaUhM6FCtxT8 UrDDSbkoqhSr83lT9gXmDnO aH9UIxm G4DakvL0IDBglLCmWYwaZGJ 4S91sv1D1DQTdIDZgAGM6zD O4zS3uaXgxcrwgvJPmyFhux mVydGlj UErnCUwpX232HLKxzJwvAx6 RQPS0J3UaKsc1WAOesRozTX 0beACsJZurBo0grIfayXdjP D9nLIZa brkyDSArnO4mWUJzkVNweAv oCH3fQQVcguyfs206McQjSG K1YZYqqNKfJ8CvtT5gRsEwV DAwMDAw C0OhgAOnYWsfE828ECtnHzN 1FEZcwjNpX4ZqNFBtqPfhUw K6z2W5Po3PFFerpRW+PC90c d41S4Nt LeqoJti5JBYvRDN4zIS2jU4 oJRRnHEmjd4M8xGX6H6Dizl Rooy0rs0okIRVwOLvhF96bt EDvg6J9 PUDwqIO8HDMzaExsUaTyyX4 3Oyc+TEXkqMcnj8TwLmktr0 ezb1wpoXm4AjWxFXAfzfEwm WduPSJ0 p6DmZf36T59yXYnaPERjFXH nNYPvHXOemDwmpm9sxS5qUn 8+ZOLxfFF3lOF8sV0wRpEiL bV5KYao U760EqCzcGJlRsacc8irk8q siBd3RmRdEIMxqeDwhMqvLH D4h4FfHb30F9GwjXyxn7RqS sv6uk52 gXHhp8Q1sUC9Q6LiEBGgxib znERbnHykJF6uODFkbdlkJL ObfT0pTNLsL3a3HsDnJuD3X CrpH6Kd uoR3YJPltLJhFWUmbITObP7 lmtfwb1kqwoceInQqGQVuOY g6NLi5QQJefMyqYkRfPPR4P xH7NLN6 fOQicW1lmKawvicipD0zJso +ISq0s6fmuCVbJT3mvOL8PX 40UL28hDNuk8C7gXB6W8GmU GRpbmct cgnitUQ5KLTzDEUdjU33Wp3 boHkvJn8fEPXwGVC9RZFozW ViQ5XvtC9pGaWoUUDcTQMmO 3RleHQt QWlhS408YGnbVdV9LMAnckQ nI4OvTIOkpFskWcR9n9P2Fk 9YWY06JD08GN75uVAsu1E2k PY5C2Cs PYWfyjwqrjvvdTF6ATTpCUI xjA06Uy3oiLlfTf8yURFyQH F1BLEcwDJvC6ZdaR6xTqJcM DAwMDAw J4YxwRHeIJuyM790FOukGgK 3PILwtxFoN4ZfQVNejDjbQb Z7c0P6Gw7LXj31TK84LS59m UGmu3Y7 bHM5J1PsJXOrnzihlmmwnSD 5GTHwHABzcC52Xv6meEetQr 7vVJDgWHG7UDVouMAnG0Dtp O1oAsCf XBEwOINmH0OsgGNiHYyrW56 2NHvoIpF0UZQeegIbA8QnNV XpnHjyQoE0z5K3Gy6IYGzir xd6G2Xf PjwvdHI+DM70QGGgPI07hIK bdPLrl0fiyAe3IjMrIGFjQE E0cIshZEgoj8TwEXJrH12db OAtp4Z9 IGN (more content not included)... [facility] Coding Summaryon 07-12-2023 Coding Summary HTMLBase 64 VicozrtuXCz5cOg+PGhlYWQ +ZV3TUQXbS10pvDRgcE5qN4 NMTElOSywgQVBQTElOSyIgb fOjII3knKTfKCJx IC8+IC0dDMZbCpqhdKLvc3N 1yXU1N94kgp1rAOivlYG0QO DyYjQdipqdn7xnaGz0YUliX mluOyBt WQBgzG40LKJ5iD81Gl35xKD gbIOji5aqhIb0KkGsXULtIN H5qVyeHFsmh6TvNCEhD82en DRum4G0 HONfxJhfbKDoJtGazJB3pT8 bTMwdjshqd4ezsewzBpo0uy 57rCKke4P1aYG1M9IfqyF2E GJvbGQg JuwuiIPKaA1gqysic6vvgsa wSeHpHWEnSMt2AOm9NXJlhX poZkDhIQ26DIJ6JRVedeInC 2FsLWFs sWsjBbF8v8S6Wp6BG0VIJkw sY7ROHOYZZLrkbIK+PC90cj 68M3UiVgdkTqk1HDOfAKX2u QZ3cB0h FXTrJThgz5P6aLL7B2ZkorJ mvc5os4gtKLOdNOtwG06xrK Bcz3R2GQKmdOY4JRLtcShxZ iBzaG93 Oyc+XLVfuXpmr7RvVhugr0p ze7iofGk5ZxqpFQLsaoIgyX irEEK8a1RhTv0mKMFnyMN3x RT9rP5f ChIlMlR4MXkrT213UkUicMM nWfibB09lG0KbcSH+PHRyPj d8PSVgcAmlNN3jG8IrSKDxw mctbGVm jPjhCV6iMEEsvipxWHNyrI8 xATTcX7h1BfSzUaA6XUgtU2 ThBHGuhqezJn52jI3kNcJyU nL4RWth R0CcklN2VFIkmNDgRTfnSRR 5O06vl5O2ASLvDAMcPFH7eX L0wR4mhNepaocjjWLpzXxzv mVydGlj YRtrWQwtW583MIEymWcmVlF vZGluZyBEYXRlOiAgMDIvMD YvMjAyNDwvdGQ+AGItIDO5t WxlPSAn fQAaPFqzMi6bgIoktQnhUB5 nYNNogxzpMLEskQ3xJGNonH DqrCnzWP6fSGJcowujl068Z iAxMHB0 OCJalGEwB9OjkI1rRaOiRGC jLBHuF1UnoUSqJZgvA303NW jvMtC0BNGzctYxL9FsTLQes WduOiB0 i1K5Ih1Da1BkfzpqD7SpmCV yYrVwCbwjBJb4T6FfZiwrnI I+LW14ZQLyTZ27QNf0SRS1d WxlPSdi THEuD6JwlI9rVuUtTDNpOCK kOyc+PHRhYmxlIHdpZHRoPS pfBKGoUwNnfVojEM5jQd2oU GVyLWNv iQseuVOaVjBid6deIPNdDDm vXO8slOwmF0XfbYK6FSDpj1 k7Qj58W28lV0JkgMU+PGNvb LQ3cHB1 hW2nJdSdXiZ0QAonF568PtN okHOtFrkcy7htd3awgFa3Aj T8STGxojZnqIusTZR6m7RjJ b37V67g IHdpZHRoPSIxNSUiIHZhbGl avd8muB3jQj1+DLQbqKE7oJ E6dO5qGcReWvR0VTlwR392S nRvcCIv Excnb8ubu5glpDq4AyLgSSI ldzYblQavYYA2m9DxDe04V1 LpwCaki5LdSff4fg41eBZcb 0D9sBT0 L1NrGXZadqhvpKSxwMpsKR9 jVDOkkznyLIMwtF1mQZIoB1 d3YoFgKxA7UHwhF8EmppL8G GJvbGQg MSCriMIGdH5gmxtwi7hkbcn vEfSqENJkPBh5HVx5YZFshM psJaXaISQ4LdB6ASY9dDXni C5hoUgf wdfeuY2iMcv+TST1tHKjlFL VYK4yDartzSF+YQAnDWN8lU xmJNlsWXFnzB4aCCQbU7c9W iAwLjA1 NMxuO4HgspU0YHRqmIHuILU evHQLqP8ltczlw6poolpdCm PaTGIdCPt5VWh5JDWyiJqnV iBsZWZ0 HcM2OLG4hAHotK7emFtkqur rbB4cEzz+SwenpWbkPSL8WR b7Q6IdLcf0BHYojIhdZE4ou GFkZGlu Vk1txNoizSiqGH3lWMUtgic hh495KpRsl6gwXHKgnAGaLX pvWRP8U34rc7T4DWGwMYVlH BZ6zYH4 jI3hkMokyxwyeARifDrpkyL yoBprGLguSZieC446KJKlvC mkYxPwVDm6V1RoRrd6MAYlo PptCO5r vCOeMWmoFd6cnUfcyBuaLW5 vPCAxpwucu634NoLbw8twYT XeaUWyQZfhSRN3H65mc1F9M CMwMDAw LVA2lAW6dF0flMhcwqyylZJ mdDsgdmVydGljYWwtYWxpZ2 73XAHhaGaqVxEepNg9H3ZfM qv6ZFDv cMvzVG0ucUYrVOvtPd3zpNp dwCsgVH7eDXGkvxryl974Fm Jsi1zrMDDztUSsFRoiIJB4D 47hd8P6 KDAjKCItIEN9wVF3sL2hiDz nbjogbGVmdDsgdmVydGljYW tkABwuV766QZOpuLeuVeRji GllbnQg MHkvWPs2R1XfGphkxVT+PC9 6EVTfRA59mXPltANoh7jsmZ j2EdApLMBoNBP7pJhzPGtbh 3JkZXIt R18ecXAup0E8FNGwuJgrdRB lVyGtzKR6iL1aYUrrjbwcg0 zadbmvCvimw7vsvm76rU74I 29sIHdp ZHRoPSIzMCUiIHZhbGlnbj0 pxH5kXn7+IFKmrQH4rIE6fX 6lYYXwRqL3JJreF362WpQst CIvPjxj x0edj3sdgBk0XwV8USCnraM eeFwxPEQ8r5WwQl98K23jFR dpZHRoPSIyMCUiIHZhbGlnb q5wuA0x Ii8+YNUasDF1gCS2tD9wPkT rPiW8LIdnN705ZzSqbWUzIu leG86vG1RdzDH+AJEcRxp3J CBzdHls SM1wgKZdYPwbCx2xEZM0GtS ePgJmYFkaP0BkLNXbxgawfe xnxAB1VTAdLGNclG40Yg1az DogMTBw wHQAqX0xqrash4iayatzOnT lGNYwQUa9QLv6UNTppSiqEh YdWWU7AcL6OYJ8uDVohX6xv Glnbjog bP3vL0DnQHKqifndIx01dC7 wDyXpBjH3QVpsSnf+U0FNUy wgQUxFWEFOREVSIExFRTwvd GQ+PHRk XML6sCtwJZfqHXTwoH4yVHX dS1w1CoQuDuI5ITcsN3VgVS BettjuEn73dC7bEbOwRqO5W PeiK2Ef gzZ8XTRjzURwJEvuHPC4H70 cr1F2FNYmGEJqXNQ6fLA7eI 1hbGlnbjogbGVmdDsgdmVyd GljYWwt SUrtF139QCLjsXaqQkTgGzD 7EiQ5Wco9E0KkTwk6EWDloY agYI2xbZRaBHjnBp3bqIvsq MuwGZ5k ZRLdchqkCYZlzY8cLFQzhOF twMkfVA5jTLEpytwci498He ZmETB6BXZnpUVcR4KpnM6iA iAjMDAw WMPcI7PewSSiIBleT428KKr jBbN7LQKgtdUaW2FxAQAetI aqTbQ4h8F0Zi06WTVCSVRpu zwvdGQ+ HMVlKKE5yDyvBNnwEKIxlO7 pJVVwO3h9GrIbImE6MBitB3 UbXDCcfxurBl73uC6zTcMrM jZ8RKgm A0SegmJ5AOGyzIKoICyuFBE 8O77gp7C8DNXyDLWrUUW4xG Y8wW3seHfzdyrieJHmgCfcj mVydGlj LMrfPToqX763JAHwfRoqNo9 DFQW6G5GpIzk1PLAcbZxpAN 4uqZCqJBelAd1enPxalRhhJ W3uJPWc znruRXZehY8eDWWovNYwzCz gSJ2pIBQymmiow119KnPgHN S8HRXljQSfR8RqjC3tHgWcV DAwMDAw T5LmiPHbFSxjC330SKvePyL 0IVYgxnMnW2JaEJPnkEndTa Z4k4F0Wl8THSogjSE+PC90c b61L9Ia GlgfKwy7YETrFPQ2fEK6qH7 gEVRiAVxlk7Q7nCK6O9Dllo Vsjp6hh5dtGMAtFHraX07kc ABto7Z8 AVJozWD3KVEssFpcZxLzfY5 3Oyc+TMYoxXnic1AyYzvza5 xmi7vmfOw9NnMfKWAqntYso WduPSJ0 n8NsYg50P76pCOliECHoCHI uGVViCTTlhRewab9deN9gXv 8+MDXllHF6yZG7lM2pTjIpC zD3ZGbm I543HeKtuGFkQuvkq2mrl8s esQv1DeWyBFSqbkFilMerYD K3m3QwBf67W3CiwIkrm3YzV ws6ls39 qGKog9I2wBS1I6EzWYKyccs inYIeaVnqTY5yQHZhsuueWO AbvC7dGARiD4t6EmSyOvJ6N DmyR9Nq vhD3GCBobEUzYNEnjKCJsF7 iwguop3msukqrSqBzVPVsRE k7JVf5SUXisUkvScFuXIC6O hI2YFC5 bDPgmE8qgVciuclofW9pRsw +GRj4j8xoyKReLI8zwIP5QP 36HO77yZGwf9J5sHW9K2NaJ GRpbmct eklbhTI6RXKdFDMiyJ06Cx4 vwVdaEe0sAXCiSUD6BMBmuQ AeP2FooN0tEeTqCHOhUAQbM 3RleHQt ZJrqF765ZAnhRiY0SKZmrbQ hX0EvPQYgnOdgTeZ9y9W3Hs 2KTN91OS97MW63vNKvc2O1h MU2D9Aq HMOnypmzirtzcZX6VKXqRJR msT77Fe8gxIoyEd3cDXInVG H3WUDhlWOrY6SziF3uWwYkO DAwMDAw S1GdaAUjTLhcF902OHydJvV 2CQOiepYrE7OlLQVtrIafQx H6b9N1Vh1AEq82OO90BM48i LTrz4W6 nCP9Y1HqNCVxhfcwdewvbPP 6YCSxLNNboI24Zn1miRpkVk 2yGOIuLMS3GSHdiZZqC4Hii J8hQzSr ZOKvNTNdY0MdzASaKZrhD71 6WVmmZxZ1HSQynnMjN2PrPV XhuZqyRhI8c6Z2Np4DSShqu cs9Y7Yp PjwvdHI+PB89YWGnAY98sNU ysDLgj5ecvEa0TbTjOTNfRL T4wAbdOBsea7BrATLrL16fn MOzr3Z4 IGN (more content not included)... [facility] Coding Summaryon 07-11-2023 Coding Summary HTMLBase 64 VmrazjlkUOj3dAu+PGhlYWQ +SQ7ZKEInG41deXWjqX9oV6 NMTElOSywgQVBQTElOSyIgb kFzQQ9jxTWkLRJs IC8+YS4fOKNoTnomkGJam6N 1gYK2L73ajt8pZDpqqSH6YS MdPlHyxyjew8aaqFv9HPqnY mluOyBt QVCfdM01DXQ6bL71Qz76kDS suNUqs2gsgTk9FuAdJFLfAW R6xHfsDComc2PnPZCtJ29wx FBjw7C6 VBUivNdhiWRkDoOpiDL9fJ3 oFLcmqxate9gixnadJhr5or 67lTLer8Z7pRY6Y9XlraO1B GJvbGQg PloxxQNDfQ9jttfwc5gdhdg vSsZyGUCoQKt3EQe6JEZpdT pjMeMkXC86ZKR9KZNeavKuM 2FsLWFs dKtcAwJ0p7W7Ft0ES2TYUxb dG9UOUYMDXKxdwVM+PC90cj 36E4SjCbpjTnt2YIFeXQE1s LB2mB5f ILRjXHhmc5L2sSP8Z5CkdcM hgc2ot0vdQFMtGWlxF90ydY Flr4H9PUNphRA8YDOvfMlwV iBzaG93 Oyc+FIPgiPclj7ZsHwihv5f up0cucGd7FcyzBXSdbuQfhZ soWWC5p5FmMj5zTIDfdCP5l CY5vB6i DdXyNwM8JHdiT677VwDixLP yMhdnW08jM7BvkHQ+PHRyPj a9QPDmjLodIK6jE0UkDYKlm mctbGVm mDbpOJ1rQEJraftaWVLozZ6 yZNRqA9q7GuVpAiZ0PNpkG6 NdOILuegqbAy02kI0yItQlW gM7COmk H6DwvnA2XCJuyLMsAOgmMRW 7F75uo3T5NEQkSJIdLAX9jM B4xE4eiRvzbsesyRDwxIyna mVydGlj CUttMBbdT642FPVqwTsbRvE vZGluZyBEYXRlOiAgMDIvMD UvMjAyNDwvdGQ+ROFzNTV3t WxlPSAn cRDfQEgqMp7thGmtuBbuPY0 eTGEmzxrxVRZozS9oITStuS QosRxfPP6kESLxuwdjz380N iAxMHB0 EGWqyVVpQ8MzaZ2uLcJjFTU cVBTxU0SdlHMgYEtkW717EN wtEzP9JSWbxeHeF5PnVXZqz WduOiB0 p7V4Ks6Rg5YllwhvK5CfhBY jKbYhGrrsOYp1B4FsLfbbzG I+IU90DCQlTM56CQf5EQO9f WxlPSdi TZDfG3WddN3wLpSlGEDsHSE kOyc+PHRhYmxlIHdpZHRoPS qsNJCpWzRouGjbWF0iIa6qI GVyLWNv pNfmmBDyGbPep3qeOZRzSKh wSP1bdWvcX9HjqZV5IUSog7 s9Ws11S79jX6SxrVZ+PGNvb FB8jNF8 fW3yGyLrHxY8DDmoX159PvD sjJHtJuzbf9elt4uhrTb7Pi C1VZPqsjKghZhnUMU5p8RmD r55D32b IHdpZHRoPSIxNSUiIHZhbGl zhn3yoO4bLc9+LFYgsVU6fX A7nI2dCtGzJxG2TWstI913T nRvcCIv Kivzd0pla1ghxIs2OhGgELW xytLzlVbjIQQ4r0XbJi12U3 KikJscc8WwVej5jr58qNTki 8C2oQB1 I1PjHGWhuwtfjVYkxHwbTC9 mVEHiuysmKAIqmY6aCTRjN3 y0GmNnHsN5GFrvM2TqjpO0R GJvbGQg UBEgnQAQtQ9yjvvnt4gyokv hJnLcAYHhLIb5UGu9LJLurO znTdUpEWC1YmS7JRR0vYUnz O3uzNaq tpsxkO1xJqb+IYW8oSOefJL XCG6vSdpigCS+NFBhUOJ7rR xcNZyqZDDkrU7eKJKbQ6y1J iAwLjA1 RKjiH4PyppM4CHRvbMDxKDC jtYBCzT3odcheb7zvrjdsEg IzKPYzLXw4FRo8QPClbWneO iBsZWZ0 WkS3QTI1qITcxU8juDlomtu dgL5iGme+XcmukPzkWUI2KC y5R2WyZxv7YUYwvSlpWT8sn GFkZGlu Do4pjXhmfAzkOT0bPFAnzoy cq758YcUkh8yrBMFiyVZyXH dhTJO1T20sc5Q1BXByMPXmF CI4bOZ0 hF5txZhmakmawPRcrKfhrhK feNcmSVeiKJdyB894VUBawK vaNtIzVBz5O6UhCyc3MAQlg CuaLE1v aRDvSOsoEm9pvSxbvVdgKA1 iZFMzovsbq836DvQij5djMT WxcRBhLGnaPTT4H22ec4Q7B CMwMDAw IZN6dUF9tF4vgFkgzjicfAY mdDsgdmVydGljYWwtYWxpZ2 17ZXIekVwqXnOvgZq6O3GkR yr5EZNf mNlhPM0vjSJtCKefEm7mxMv ukHcdRR9xDBLcrwdzs901On Chr3jjGIPjlFZtKSzmWOR1Y 93rs4N2 PCWhPOIdGOE7lTP7dR8deDh nbjogbGVmdDsgdmVydGljYW nrQNnhL183HAPvgOgdSjBxk GllbnQg JBpjZJx4G3TxRnokaCP+PC9 7HNPbTA94zNKhiSFtt0nqfA h5IbEaEFGcAWK4tXyiJJkoj 3JkZXIt O28svQEvv5K6DDSucWtwoTO vAqXoeZB8vQ4bTKkirgqum2 paqikaFsjjq2jgab69vD62E 29sIHdp ZHRoPSIzMCUiIHZhbGlnbj0 tpD4mZg6+CNPkjNV0bNR4zQ 3aQZPyLxH5CJflO268ThMty CIvPjxj b1vtl2lliEv3WpP0XLSnpxG ywVsrVXQ6m8QeQe83C51rMD dpZHRoPSIyMCUiIHZhbGlnb i3hgT5n Ii8+URKcgCO9qFB6gV4rChK kSgG6IQpaS273QnFeeAZuNw lkU30sH7PijLB+BTVfGwj6V CBzdHls ZA2arFQzERhkZf8gRNK0HkL dCdWqIDrhE3VkOLNfccdboz qjeQW1TJXdPCWdlJ07Gb2is DogMTBw sTLFfO6quuxsn6cutpwiCyY bERImNBs0FTd1VNOlcOvsYx ZvNQC0KxL4CBG3zNIyxN1ub Glnbjog wV7nX5VuTVNhsqgmGf42lR5 aCaAtCgN3MIxzRsa+U0FNUy wgQUxFWEFOREVSIExFRTwvd GQ+PHRk QPP7yPlbHAayBOXdqW6uLAE mK9q5EoBoMaX3YHfkA5NvFR HrjuhdXr90iO7cWcTjQqW8L XykB7Ns hgZ0PFInnBYuJTeuXHM0M01 ds5H8JVChIXUyKAL1aCZ8oB 1hbGlnbjogbGVmdDsgdmVyd GljYWwt KXzuQ337EEYliQpiAlXfBtS 2SoE6Yzw2S0BtRkb3SWMejH fpKO9ezOQvQBazTk5vdQjzx TnvNC4d AZAzochcGWKvqP0cHQLimWQ sjWwtFV6zVLIvqdwcz241Kv ShZRH8PVZygJHwJ5KygF5cA iAjMDAw GKAoL3SclCGcEEncC563BXa fQvH6FOIfjwRiF7EaYHBwjX xfBmG5a4H5Tz28SNDYDRPav zwvdGQ+ HYZxCWH9qYrtLDuiWJYaaN5 jFUBvI9y5JuOvReG8JPawC5 CfVKAhlfjtQt48qA3fInWtD kD9ZNdv I1RaqmJ6TWHtcOGwDJneNNL 1X56cp2E5QSBnAJXvERM7yI D4qE9utVgxhgrzdWKmyRvfv mVydGlj KTpeUFsvF550JVPkoYdzZq5 HXGM1P3BgErc1CVGbrYlwFU 1hbIKqNFqqMl6pcLkepQnmX G4qTQBe jhggCIFonE4vUGBjgFIkyXb sWX4kBOSepewdq111DaEzEA Z5IYVobJLpP1XwrO1hApOeK DAwMDAw N5YnrQUiTOqiI615QQufLgK 8NSDqylAyA3NjSHCjbHsaTn Q6g7J0Zz5ODCytgBW+PC90c i75E8Cy NatzXqo5FDBeFCD7pVA2nF1 xWDOwVDahj9O0zWT2P5Wajj Zwxy9qf3trSXLiDFrfR41bl TXyr1H3 JJHxkMV3CTDtvNgbQyFzeI1 3Oyc+HNFiaSlse7OxKuncq1 tex5ypaKd0CdAfNVAzztZyj WduPSJ0 o2HvVv84R29gHMtbETWpHYI kRNWaKRGdzZfdrf7omN0uVq 8+OUHfiHV0rWX3yT9mQqZeR nN6AFhi J999DuBduUVoZvnxq3fpe9n emPg9SxQkZTOznxApeKjsJT J5t7VsSc41M6EmcWkpr8YxK ib7ul71 bZZrg4E6bPY4D7NlSIIyvmy asAJrtAxeIZ2dIUFteinbFZ IqwK6eAWEiB1c8UmTkIjS1Z RpfB5Yo xiV3OMVocRPfPSQzpTWMgU1 eaqjbi2orlydvImPrGRZlDT d6PWx2IGGpqFpwHxQoVZP4Z bX1AJO1 cFIuiJ3yqSolliqybU4kArv +KCj4z9roeGIhWZ0rxUG6BL 37LG05pJEyw9N4yFF4A9ZcN GRpbmct ipnsxAF1NXHyZRHjuQ39Ud6 hcPuvIk3mFDTyXGC4JHLysW UhK0TjyL4nLfIwDQOpTXCnQ 3RleHQt NKzmE723PHflJlF0JKUmykB rK2VoSGXtaTbaRgM2m5P5Es 8DVX98ZE61LX61yFBkp5D6s YC0G5Ee OTHetzkdjewqrTZ7VLBaXFM cnT21Rz9fpHmsJz8yRPVjBT Q0EBEleUImT4BklF1sJtAgR DAwMDAw O3NlrLGzSQumG005OSxyAxW 2ELTonlXsG3EuQSZdvMlxSr A5g4O3Ot3LNa00TU17VA29s VCvq5E6 tEE3G3AtYOZajlvlhmxmtVL 9VKItXAAzdW73Mi2mqHbpFa 3wSMZxLCA1XUFseUDsM3Hdk Q5vOnTg NORdONKvW5ChfITbXAnkT51 9RUzqDlU9MPNyvzBgT7OuKW GdbZtdThF4m3I1Sp9YLOsfd vb8P1If PjwvdHI+FF44RPWnVF40kBC hyTElo1vurYr3YbWtUIGfDT B7mTxtTZpwr9BxPWQuZ91qn NMxv6Y2 IGN (more content not included)... [facility] Consent Formson 07-11-2023 Consent Forms [id number] TGTIFF [facility] .Auto Diff 1on 07-06-2023 [place] % 7 % Normal 12 [facility] Comment on above: Performed By: #### 1 [id number] ####[facility] (DEFAULT)[address] [place] [address] Baso Abs# 0.0 x10 Normal 0.0-0.2 [facility] Comment on above: Performed By: #### 1 [id number] ####[facility] (DEFAULT)[address] [place] [address] Basophils/100 WBC (Bld) 0.1 % Low 0.2-2.0 [facility] Comment on above: Performed By: #### 1 [id number] ####[facility] (DEFAULT)[address] [place] [address] Eos Abs# 0.2 x10 Normal 0.0-0.4 [facility] Comment on above: Performed By: #### 1 [id number] ####[facility] (DEFAULT)[address] [place] [address] Eosinophils/100 WBC (Bld) 2.9 % Normal 0.9-4.0 [facility] Comment on above: Performed By: #### 1 [id number], [id number] ####[facility] (DEFAULT)[address] [place] [address] Lymph Abs# 1.7 x10 Normal 1.3-2.9 [facility] Comment on above: Performed By: #### 1 [id number], 6961649, 9447167084, 03545785, 5255646554, 8391824830, 37853220 ####[facility] (DEFAULT)[address] [place] [address] 71198 Lymphocytes/100 WBC (Bld) 31 % Normal 14-48 [facility] Comment on above: Performed By: #### 1 [id number], 4053098, 2130623370, 12278147, 3283074818, 2884430635, 12566929 ####[facility] (DEFAULT)[address] [place] [address] 53411 Bergen Abs# 0.4 x10 Normal 0.0-0.8 [facility] Comment on above: Performed By: #### 1 [id number], 2551204, 9067161421, 32261215, 7346789974, 8963580592, 00060284 ####[facility] (DEFAULT)[address] [place] [address] 72751 Neut Abs# 3.3 x10 Normal 1.5-9.2 [facility] Comment on above: Performed By: #### 1 [id number], 9772566, 6943141410, 15360231, 1083949924, 4593878397, 02825944 ####[facility] (DEFAULT)[address] [place] [address] Neutrophils/100 WBC (Bld) 59 % Normal 44-88 [facility] Comment on above: Performed By: #### 1 630346487, 1824531, 6629766408, 37473046, 5937708634, 4495319336, 82489829 ####[facility] (DEFAULT)[address] [place] [address] BNP.on 07-06-2023 Internal Control Pass Normal [facility] Comment on above: Performed By: #### 1 [id number], 9257948, 2900493470, 54835764, 3714650756, 7875565741, 89875044 ####[facility] (DEFAULT)[address] [place] [address] 01360 Natriuretic peptide B (Bld) [Mass/Vol] 6.5 pg/mL Normal 0.0-100.0 [facility] Comment on above: Result Comment: BNP results greater than 100 pg/mL are considered abnormal and suggestive of patients with CHF. Higher BNP concentrations measured in the first 72 hours after an acute coronary syndorme are associated with an increased risk of , myocardial infarction, and CHF. Performed By: #### 1 [id number], 5280500, 5245725545, 30438193, 7625942100, 8325181435, 72321930 ####[facility] (DEFAULT)[address] [place] [address] 27000 CBC w/ Auto Diffon 4 Erythrocyte distribution width (RBC) [Ratio] 13.0 % Normal 11.5-15.0 [facility] Comment on above: Performed By: #### 1 [id number], 2257522, 5655075988, 88596796, 6123522954, 2863310707, 41439614 ####[facility] (DEFAULT)[address] [place] [address] Hematocrit (Bld) [Volume fraction] 43.9 % Normal 34.8-51.9 [facility] Comment on above: Performed By: #### 1 [id number], 6918035, 5029803103, 91728865, 6750463993, 5313879725, 85197815 ####[facility] (DEFAULT)[address] [place] [address] Hemoglobin (Bld) [Mass/Vol] 14.9 g/dL Normal 11.8-17.7 [facility] Comment on above: Performed By: #### 1 [id number], 9526472, 6119272770, 44256410, 8540325424, 1078679943, 01482681 ####[facility] (DEFAULT)[address] [place] [address] Man Diff? Auto Invalid Interpretation Code [facility] Comment on above: Performed By: #### 1 [id number], 9511194, 8179321745, 89858353, 6397323953, 6604637783, 65824073 ####[facility] (DEFAULT)[address] [place] [address] MCH (RBC) [Entitic mass] 29 pg Normal 24-34 [facility] Comment on above: Performed By: #### 1 [id number], 9231260, 9563187099, 50698370, 3340392005, 0001793709, 06964504 ####[facility] (DEFAULT)[address] [place] [address] MCHC (RBC) [Mass/Vol] 34 g/dL Normal 26-37 [facility] Comment on above: Performed By: #### 1 [id number], 1823308, 3626205268, 53922814, 6848843038, 2055557381, 72129960 ####[facility] (DEFAULT)[address] [place] [address] MCV (RBC) [Entitic vol] 86 fL Normal 81-100 [facility] Comment on above: Performed By: #### 1 [id number], 3752358, 7150907853, 35420018, 1886112155, 5157653991, 85563851 ####[facility] (DEFAULT)[address] [place] [address] Platelet 100 x10 Low 138-427 [facility] Comment on above: Performed By: #### 1 641512727, 3979115, 6577703605, 81748318, 9116217036, 9675468833, 97517347 ####[facility] (DEFAULT)[address] [place] [address] 86291 Platelet mean volume (Bld) [Entitic vol] 10.9 fL High 6.3-10.2 [facility] Comment on above: Performed By: #### 1 198363879, 1101362, 2681134810, 90147574, 2579261327, 7232523580, 32299693 ####[facility] (DEFAULT)[address] [place] [address] RBC 5.11 x10 Normal 3.70-5.30 [facility] Comment on above: Performed By: #### 1 967819115, 7392905, 8028839744, 82598093, 4310749418, 0820523337, 16944887 ####[facility] (DEFAULT)[address] [place] [address] WBC 5.6 x10 Normal 3.5-10.5 [facility] Comment on above: Performed By: #### 1 553971744, 0280188, 6904618896, 38659544, 6958041209, 1261074713, 63288612 ####[facility] (DEFAULT)[address] [place] [address] CMP Standardon 07-06-2023 Albumin [Mass/Vol] 4.1 g/dL Normal 3.5-5.0 [facility] Comment on above: Performed By: #### 1 [id number], 8773978, 3934525621, 80627984, 3333910333, 5372953778, 84132704 ####[facility] (DEFAULT)[address] [place] [address] Albumin/Globulin [Mass ratio] 1.4 {ratio} Normal 1.4-2.6 [facility] Comment on above: Performed By: #### 1 392133423, 3155109, 7263549201, 90750291, 1114353052, 0394782479, 84681165 ####[facility] (DEFAULT)[address] [place] [address] Alk Phos 56 IU/L Normal 32-91 [facility] Comment on above: Performed By: #### 1 579123106, 8786459, 0134789387, 22195219, 1551355002, 6725756470, 21759556 ####[facility] (DEFAULT)[address] [place] [address] ALT [Catalytic activity/Vol] 73.0 U/L High 17.0-63.0 [facility] Comment on above: Performed By: #### 1 301324390, 3226006, 9260156865, 91468255, 8293248803, 4076703160, 33231374 ####[facility] (DEFAULT)[address] [place] [address] 70479 Anion gap [Moles/Vol] 9.7 mmol/L Normal 5.0-19.0 [facility] Comment on above: Performed By: #### 1 821264508, 3619327, 4856709654, 81609377, 0099022879, 2325215286, 28862421 ####[facility] (DEFAULT)[address] [place] [address] 10969 AST [Catalytic activity/Vol] 41 U/L Normal 15-41 [facility] Comment on above: Performed By: #### 1 807339846, 8463551, 4673819010, 31033327, 1614053406, 0870369030, 15698405 ####[facility] (DEFAULT)[address] [place] [address] 22286 Bili Total 0.7 mg/dL Normal 0.3-1.2 [facility] Comment on above: Performed By: #### 1 315750032, 9953688, 1136507096, 29495553, 9147111282, 4559789076, 87542924 ####[facility] (DEFAULT)[address] [place] [address] Breakpoint Chem Normal [facility] Comment on above: Performed By: #### 1 864016666, 7865718, 8732029201, 50913780, 7748211078, 1011891765, 17979143 ####[facility] (DEFAULT)[address] [place] [address] 36592 Calcium [Mass/Vol] 9.1 mg/dL Normal 8.9-10.3 [facility] Comment on above: Performed By: #### 1 519029283, 9285524, 2069233754, 54940313, 2199409413, 9604430141, 15808948 ####[facility] (DEFAULT)[address] [place] [address] 46859 Chloride [Moles/Vol] 105 mmol/L Normal 101-111 [facility] Comment on above: Performed By: #### 1 [id number], 6796703, 9217962395, 68888522, 0881011444, 3389348378, 95405039 ####[facility] (DEFAULT)[address] [place] [address] 69675 CO2 [Moles/Vol] 29 mmol/L Normal 21-32 [facility] Comment on above: Performed By: #### 1 [id number], 0485564, 3493292765, 28036931, 6553991443, 3545839446, 22830531 ####[facility] (DEFAULT)[address] [place] [address] 92065 Creatinine [Mass/Vol] 0.92 mg/dL Normal 0.90-1.30 [facility] Comment on above: Performed By: #### 1 158897453, 7875026, 2250625985, 48744680, 0596323687, 0315973055, 24192533 ####[facility] (DEFAULT)[address] [place] [address] 55531 eGFR AA >60 Invalid Interpretation Code [facility] Comment on above: Performed By: #### 1 [id number], 8713634, 8797871167, 84568227, 7175440733, 6525932545, 65150973 ####[facility] (DEFAULT)[address] [place] [address] 28697 eGFR Non AA >60 Invalid Interpretation Code [facility] Comment on above: Performed By: #### 1 855221898, 3413035, 7949186106, 90128320, 4170083592, 1937236112, 21549304 ####[facility] (DEFAULT)[address] [place] [address] 56354 Globulin (S) [Mass/Vol] 2.9 g/dL Normal 1.5-4.3 [facility] Comment on above: Performed By: #### 1 205282131, 4268798, 0055986173, 54176915, 3459276784, 0713407433, 79447359 ####[facility] (DEFAULT)[address] [place] [address] 36591 Glucose [Mass/Vol] 112.0 mg/dL Normal 74.0-118.0 [facility] Comment on above: Performed By: #### 1 150249672, 6439880, 8351966082, 84911991, 4642538060, 5926556810, 81880286 ####[facility] (DEFAULT)[address] [place] [address] 59449 Osmolality 284 mOsm/L Invalid Interpretation Code [facility] Comment on above: Performed By: #### 1 096820244, 1412338, 0517689568, 76243830, 2103458990, 1878300068, 11173741 ####[facility] (DEFAULT)[address] [place] [address] 54916 Potassium [Moles/Vol] 3.7 mmol/L Normal 3.6-5.1 [facility] Comment on above: Performed By: #### 1 156422328, 8191141, 6266078002, 97259062, 6662808292, 7611191376, 39331960 ####[facility] (DEFAULT)[address] [place] [address] 41046 Protein [Mass/Vol] 7.0 g/dL Normal 6.5-8.1 [facility] Comment on above: Performed By: #### 1 422225314, 4249329, 9615051603, 16556835, 4519510082, 8920291109, 46867919 ####[facility] (DEFAULT)[address] [place] [address] 49190 Sodium [Moles/Vol] 140.0 mmol/L Normal 136.0-144.0 [facility] Comment on above: Performed By: #### 1 [id number], 3678810, 3249712282, 52232008, 7709031891, 8834145237, 54922182 ####[facility] (DEFAULT)[address] [place] [address] 57362 Urea nitrogen [Mass/Vol] 25 mg/dL Normal 8-26 [facility] Comment on above: Performed By: #### 1 721877409, 4087827, 6270545998, 91615275, 6639852508, 8825915404, 83550256 ####[facility] (DEFAULT)[address] [place] [address] 58927 Urea nitrogen/Creatinine [Mass ratio] 27.1 mg/mg High 4.6-16.2 [facility] Comment on above: Performed By: #### 1 576688938, 2631837, 3849794675, 61520567, 1949353111, 0218985983, 01410524 ####[facility] (DEFAULT)[address] [place] [address] 08190 HgbA1c Standardon 07-06-2023 .Hb 16.8 Invalid Interpretation Code [facility] Comment on above: Performed By: #### 1 289507056, 9837012, 5186872050, 73025409, 4591959321, 8408364978, 06006344 ####[facility] (DEFAULT)[address] [place] [address] .Hgb A1c 0.66 g/dL Invalid Interpretation Code [facility] Comment on above: Performed By: #### 1 957629207, 7379149, 1411235306, 52093333, 3817374910, 8887091055, 15564708 ####[facility] (DEFAULT)[address] [place] [address] Glucose [Mass/Vol] 117 mg/dL Invalid Interpretation Code [facility] Comment on above: Performed By: #### 1 506209962, 7168286, 1535357175, 11998181, 0928890557, 4984828597, 63606419 ####[facility] (DEFAULT)[address] [place] [address] HbA1c (Bld) [Mass fraction] 5.7 % Normal 4.6-6.2 [facility] Comment on above: Performed By: #### 1 837114825, 0031829, 6996072589, 06507366, 0733846975, 6460252005, 35166865 ####[facility] (DEFAULT)[address] [place] [address] Iron Profileon 07-06-2023 Iron [Mass/Vol] 79.0 ug/dL Normal 45.0-182.0 [facility] Comment on above: Performed By: #### 1 362500555, 5175951, 6031688946, 17841600, 2921040546, 1748607431, 40384280 ####[facility] (DEFAULT)[address] [place] [address] Iron Sat 20 % Normal 20-55 [facility] Comment on above: Performed By: #### 1 205503096, 6493967, 5540348447, 98955369, 6747558092, 5878529227, 89936864 ####[facility] (DEFAULT)[address] [place] [address] TIBC 402 mcg/dL High 250-400 [facility] Comment on above: Performed By: #### 1 262851663, 5613941, 1452579866, 12285676, 3076512567, 2244767316, 26481886 ####[facility] (DEFAULT)[address] [place] [address] 18250 Transferrin [Mass/Vol] 287.3 mg/dL Normal 180.0-329.0 [facility] Comment on above: Performed By: #### 1 307291034, 8436830, 2774943518, 45388842, 2759656940, 3383011912, 96470348 ####[facility] (DEFAULT)[address] [place] [address] 34763 Lipid Panel Standard, [facility] 07-06-2023 Cholesterol [Mass/Vol] 154.0 mg/dL Normal 66.0-200.0 [facility] Comment on above: Performed By: #### 1 215827304, 3430917, 9853626589, 09497602, 9435494222, 9359928904, 88365962 ####[facility] (DEFAULT)[address] [place] [address] 19751 Cholesterol in HDL [Mass/Vol] 35 mg/dL Low 40-71 [facility] Comment on above: Performed By: #### 1 573316898, 6550993, 8267759079, 43790131, 2975503065, 3477743948, 00981194 ####[facility] (DEFAULT)[address] [place] [address] 32774 Cholesterol in LDL [Mass/Vol] 83 mg/dL Normal 1-100 [facility] Comment on above: Performed By: #### 1 [id number], 5923053, 4429028980, 68353590, 5912996500, 5857392721, 98176445 ####[facility] (DEFAULT)[address] [place] [address] 06053 Cholesterol.total/Ch olesterol in HDL [Mass ratio] 4.3 {ratio} Normal 0.0-4.5 [facility] Comment on above: Performed By: #### 1 996233997, 4997197, 3044219838, 21954585, 3022741019, 8670990506, 79984498 ####[facility] (DEFAULT)[address] [place] [address] Triglyceride [Mass/Vol] 177.0 mg/dL High 0.0-150.0 [facility] Comment on above: Performed By: #### 1 881254691, 6635181, 8212958120, 78271313, 4157976422, 6932429796, 18430302 ####[facility] (DEFAULT)[address] [place] [address] VLDL. 35 mg/dL Normal 5-40 [facility] Comment on above: Performed By: #### 1 645367590, 1745542, 8730737237, 08630867, 9130154514, 5673947663, 91469498 ####[facility] (DEFAULT)[address] [place] [address] Provider Orderson 07-06-2023 Provider Orders [phone] [id number]#1.0 [id number] [facility] LE Arterial Duplex Bilate ralon 07-06-2023 US [...] Augusto Mensah MD 07/06/23 4:09 pm Technologist: ,[facility] LE Venous Duplex Bilatera patel 07-06-2023 US [...] MD 07/06/23 4:07 pm Technologist: BERNICE FERNANDEZ [facility] Coding Summaryon 07-01-2023 Coding Summary HTMLBase 64 ZvfgxegjSTb0dUv+PGhlYWQ +CP8FJJCwL24dhEVaiM0uY3 NMTElOSywgQVBQTElOSyIgb yErZC3tfOHrONCv IC8+ZO9kQBYmToutsFFlb6X 3fMG6B34nnd2jYQamdLS6RJ UtDgVrnttpm1jraRf1ITydI mluOyBt NXNwnF43JRY5kH32Aq73yGX bcZGce8mnvSv8HaMpXOKbVI M3rYvxAPrks5KdZQPrI27yc OIov3R2 VZFcaFeajWZiNrXebZS7wC4 vVGdcwijie6optvutYlr4jk 09gBDlp8B5vYP6C1FbaiD7V GJvbGQg MjcicOMQnV6dpchqj3ueupf pUrOuAWWzEXs2AOp1XEFseV crEcAnAN72LYS3YKBcqwHoP 2FsLWFs aJolPoN6v8M9Rf8KU3CGVpa xL0RMVXXXIOcpiOY+PC90cj 99S7HkYvfgAym1WOOpUDA5h DA9jM6c RSPaKLobs2U0dZZ7V2QqekT bip0hv3gbKCOwKRkyB23wsE Mgg4J5YXRcbPB1TSEonOdhX iBzaG93 Oyc+JVBrwJpej6DfJozwm1w zu7bohHk1TkxbGVTffjUivW krIGN4q5ZsAx7gUJRqcSB0n RQ5eB5k MdGuMcT6MXihS380OcRzzPV nUgdyI16gV7LxiAV+PHRyPj j0NDFliIlwRD3oJ6ZwKSHtw mctbGVm mUfaRI2wWCYamscaJAOpsG2 hBLDeV8c6ZdElAfF8FTqlC3 IkFZQoopfwVf32aC1jWsIdK tO1CAav I7GrieX4BPGkkIEoJPibYDN 0B28qc6M2SXGcJBVcUSO0xM G0hB5fxQinyoybaMDonQboo mVydGlj DHvyKPtrZ937IHYiqZdkDjQ vZGluZyBEYXRlOiAgMDEvMj YvMjAyNDwvdGQ+YMNlMFY6v WxlPSAn xJTmKXupLh9emWpjqZfgQO3 cPGBibrocQWPqlA3uLLBayF YlcJtqQN9aAPItgnjjf772N iAxMHB0 DFNazNPhV7DxoL5aFpVoKOV aDNWuO2NznMHdNFavO297LB xwIsV9XTPdllAeT9JmLWTvz WduOiB0 o2G8Ko1Oo8EcubovL0JvvGZ wZeJxJuqcXSx2J8LzIeyewY I+IQ86FYFoFJ57VLg1IFM4d WxlPSdi SXHzV9XctN7jWvBjUQJoUXW kOyc+PHRhYmxlIHdpZHRoPS cjXNOcGqQkwNrtHT4gRb7jG GVyLWNv jPtofUQjYwQfa5uqWLDuSWk hAD4erZdxR4TgoTC5FYFea3 e5Zw28O96gR9ZlmYW+PGNvb UX3xII3 kQ8lPtDzJaJ4HNebL394SpB nzCOuDlthn7akw4eogKz7Sf S4JDAnioPprGcmHEA1w9ViT f49H87e IHdpZHRoPSIxNSUiIHZhbGl uqc9gjY8wTu3+JWNrlRO8fJ F3gO8xQxAeZuF0UBwsL067T nRvcCIv Jfvmc3gds9bcnMk7YiAyCIY mrrItuNhiJPI5h9StRt25P2 LgzNzec0UzMdv5sb13zAOpd 6J1oAH1 E8TyCLTgteswmAEutVfoNC5 hEDDfikjtFIRlzC6tJNCnO9 y4ZsDlTqL0EMdlG1PgtoS9W GJvbGQg VAAebLNPqR9gqucxk2xpfwp jEkWpKBFoGXg3WJe6DPGsjR zhKaUhPCO4HrY2HPD0nSRnt I9tlCoh vynvaH3oCxg+AZL4rBTjiBX PGF6aZzfojHW+NXDkXLQ6sT rvECswGNJtgP9uKMErR6o2X iAwLjA1 JIgjT9YhswO3ESPcnAIwKOR zhCRNeB4wehfgc7ljjepjHb JlRUKkNRt7ITz7JXUxhZxrO iBsZWZ0 SwM6YKH1wWSfiQ9omKquibn ceV9oArl+IjtncMotDCE5GC m9R9ZuZpi0WVDdaPzdPM8fg GFkZGlu Lh1msGriiAmsBN8eTHTbnwo jz846VgQbl3rfWPFkpTKpGK ydDEG0Z20kg4Q3ZUVcJMQsT TV5hGB8 cN4bkMjeuqzlwQMwjYoxtbC dcFklFEgjEPzvQ342BQJudW vqGvOzESr1X5KkZpb5IGPvz VzzRO5v aIDhRCasUa4jjNzjqYqpID5 eTJXobkett936RhGgc7eeKX FkbGMdBCmnJRN7T19jq5Y9M CMwMDAw MWU6sUG5pV7cwWngepestXY mdDsgdmVydGljYWwtYWxpZ2 46CSCflTzkPoHkrDs6Z7QqH ma5NUQw jHovPW5kjCDnWIdoNb9fyMl fpRxqYA3uPUPmgcoyo463Kv Jcq0frZYIwrFRaTDcbCJW6H 28td7D9 QFVsBETuGPC2qGV1kC6bcJa nbjogbGVmdDsgdmVydGljYW abWYieT402EUEkgDqsApNzt GllbnQg TImxPUb5H5BkAzdmmRI+PC9 5BCDsFU61nDZvbGPfl6efcG t9FhQaMRBrCXK0zWzkZUwps 3JkZXIt U99ylWLya6P9UDDreGiuqLX nOhMulUM9rT3iIPlvsawii7 jwaqfrNrijc5mnzf76gT35S 29sIHdp ZHRoPSIzMCUiIHZhbGlnbj0 drD2pIz1+NQXbiDK0iUS6mD 7vHYCcRzQ2UEvyG276RjMeo CIvPjxj x4yyp9stvYl7FcM5IWLevpG ohHhuEOE5c9AkFp89D41zDM dpZHRoPSIyMCUiIHZhbGlnb b7xpG1z Ii8+OLMztIY3rKY6rD0sCgA yBoV2WKoeM378GmGydEPxYs hfO45vV1BnrAD+YCCyPtm0G CBzdHls TJ8xfKYmOYexOn0gBWF9UvD iRvCnOPzzQ0ByPKLnxfiovi qxyIJ0PGSwEVOqxV31Bh3ta DogMTBw sDBGiL6isqmxc7dzpdowUeC zAIWmDAu2EYn2RHNsuRjkTz BlCDG8GtU0WRO7xCDjoT6yw Glnbjog fA2wP4WcNHFjqmqdHt37iQ0 qEpAvSxW7QUlkGos+U0FNUy wgQUxFWEFOREVSIExFRTwvd GQ+PHRk FWM7xRqvMYvpALEnlG8eCXY yV0f7XgPyLpI4JVeeG5ZeNB VqmduzPr99oH6dHoTnHfK8U FzeQ1Mn nrA8NMRzkERnXFkgYXZ4Q00 mf1R2TEAaECJwKNU9pWN2hY 1hbGlnbjogbGVmdDsgdmVyd GljYWwt ELovM291GDHbsRwvImDwMkI 9PsR5Jws9B0MvEce2CQGmkJ ikWG8rfGRuURtoKb5haCfva KheVW1j EBHdizntGMZkeH6qBOEkqWE mgMfkHI5qCNTrymegz331Jd CaULP9WPYweHJaC3EgfP4qQ iAjMDAw HTRrS2AhfCSnFXchV355VVk bTqB5VKFenpCuO9RtCTWatU mxGuS1e9T0Hc87VWOJXJYsv zwvdGQ+ GQLqYBX7pTgwVGwkCFHuoI6 fAHIlL9e4HiEbJgE3CMikG1 OoCEDutanyLo92cS9qFiQvB bU2PUcm O2HldpH3OWBlwOWgDTykXIB 8R34zm5Y9VFXwEQIeCVC9yX F3jO7vdIfwmgsfdOMjlSgvo mVydGlj CXrwHFglN545IIFybCdjXa6 STKS3G0EoKvm5QMPhhQgrIU 3gbIBoYZzuWi5roTvlsCqqF J1qVJXc qpkxCVKtxS7vAIClrRKhpYc iIH9iTLXxuibsz063YoFyKO N1DYPrkDUxJ2HnlH5fXhTiS DAwMDAw B9OjdFGlXCnaJ965YMbyOiQ 0FTYfxzRqI5XnXQZdkXizFb V7x4Z3Im4JYRgvkCV+PC90c v98M6Aa IrmcSsa3SFDjHTX2wYC7gW2 vWQTdSWdze2J3qGD0T2Yjza Zxcm1fd7qqZTYdFGmfZ30lk HVfg6G3 KZWwfLR7CZVflVxtTjWztF7 3Oyc+TIYdmRrcy1BtKhxeo2 ige3ogrRe3GxRbUGEqhlKpg WduPSJ0 q2RvWc29O01pKPajNHIrWCG cQHAyVDWunLncus0ykQ0qHg 8+GTJybPA1dUP4lM5oDiJnW vK1DBgj D891ZcBedXScBnnmu4ygr2a zqCe9QjCbWYJcwtDcwWbiNE Q3l0PkNv77M5MmcHagp2XiW py4ut74 bWPdj4Z2yRA8R3WfRKLwxkw azZZriBjdLD9kQNFmvlsiLX JrmH6hYKVhI5v2OfQvYlS4A LinX5Kt jkG1WUKfcPHbICGalDHBwT2 bhmnzx7ejcviuJuYmHTGdGR p3RZf2GWSyrQysOlWcTJI9V vX9PMB1 qTTskH7rlRpekngsmM1cAnd +VYv3y6rbkTWhJH9izHD8UH 51WL54rYTxb8I2zOG5P6HmV GRpbmct jmwtoEU2LTLnQQTmwR91Uf3 fgMjgVq4cVTUvQST2VHHrmT UgM1MqtR3nWlXbFJVaHFVjO 3RleHQt NAwpN963PBaoFrW8CMMfjnH pZ6XlFVKthHkrFfM0i8Z6Mg 5YEH68HV32KW97mKFny7L4r NF7I4Df HZVmbkrhtjwyaQE6YAHoNJQ vkZ52Mk9bhTwuUn3eRTIdUT A0YVRtyLGaK0YjnE6uRbTqJ DAwMDAw J9CdkCFhHRggN137SUxlXcL 0HWCeajGlW4UpTJZglVbdKx B2t6C5Mh7QLt85JD68IY04w ITfx2R7 gKE3E5PrTAJusrjhwysaqBI 0DUIrBMEigI28Od5rpHqtNv 0lJDZcLRB1SQWhnNPrP9Nxn T5eUyDx DUBzSMQxQ4VrhISkQIzzT14 3PSnmFsT7LWNqflZyU3XuIJ BonBmaCvT1t3B2Jr8MNQatr au1U5Tg PjwvdHI+OX19BLYtWM23zSJ vaYNjl2hbkHn4ArPcXXPfDE G5zRhhCJxno3ZeYPBcL23kq FVlj8Y6 IGN (more content not included)... [facility] Provider Orderson 06-24-2023 Provider Orders [id number] TGTIFF [facility] ED Clinical Summaryon 2023 ED Clinical Summary [facility] ? Urgent Care [address] [place] [id number] Clinical Summary PERSON INFORMATION Name: SPIKE NIELSEN Age: 43 Years Sex: MALE : 1980 MRN: Acct#: Visit Reason: UC - Skin Problem: simple; RIGHT LEG WOUND CHECK Arrival: 06/16/2023 13:33:24 Discharge: 06/16/2023 14:24:00 LOS: 000 00:51 Check In: 06/16/2023 13:33:24 Checkout: 06/16/2023 14:24:00 Address: [address] [facility] [address] PCP: Provider, None PROVIDER INFORMATION Provider Role Assigned Unassigned Anila Rubio TRAINING SPECIALIST Nurse 06/16/2023 13:35:32 Reno Ogden ED PA [...] verbalizes understanding of instructions given Comment: Normal [facility] ED Patient Summaryon 024 ED Patient Summary [facility] ? Urgent Care [address] [place] [address] PATIENT DISCHARGE INSTRUCTIONS Patient Information Name: SPIKE [...] at home: Medicines ? Take or apply [id number] and prescription medicines only as told by [...] streak s (more content not included)... Normal [facility] [place] 024 Urgent Care Record [facility] ? 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 It is important for you to follow up with a doctor, nurse practitioner, or physician?s assistant manager bilingual for ongoing care. If your symptoms become [...] so we can reach you if necessary. [facility] has provided you with a complete list of medications post discharge. Please inform your trolley cleaner/provider of your visit and for further instruction on these medications. Any specific questions regarding your chronic medications and dosages should be discussed with your primary care physician(s) and/or pharmacist. New Medications [facility] [id number], [place] [id number], [phone] mupirocin topical (mupirocin 2% topical ointment) 1 [...] Diastolic Blood Pressur (more content not included)... [facility] 04-14-2023 [facility] Telephone (DynamicsI) SPIKE NIELSEN ([id number]) 1980 M Date Time Provider Department 04/14/23 FADI ROBERSON [facility] During your visit today, we recorded the following information about you: Fadi Roberson RN 04/14/2023 5:14 PM Signed BMI SPECIALTY CARE COORDINATION TELEPHONE ENCOUNTER Pt mother is helping him. [facility] with call back number Allergies As [...] once daily. - famotidine/Ca carb/mag hydrox (ACID MATCHER OFFBEARER COMPLETE, FAMOT, ORAL) Take 1 tablet by mouth twice daily. - B Complex Vitamins capsule Take 1 capsule by mouth once daily. - if-tbw-utqdn acid-lutein (CENTRUM SILVER) 400-250 mcg chew Take [...] Encounter Status:Closed by FADI ROBERSON on 04/14/23 [facility] SPIKE [id number]) 1980 M Date Time Provider Department 01/28/23 FADI ROBERSON During your visit today, we [...] once daily. - famotidine/Ca carb/mag hydrox (ACID MATCHER OFFBEARER COMPLETE, FAMOT, ORAL) Take 1 tablet by mouth twice daily. - B Complex Vitamins capsule Take 1 capsule by mouth once daily. - vd-eka-xedvm acid-lutein (CENTRUM SILVER) 400-250 mcg chew Take [...] Encounter Status:Closed by FADI ROBERSON on 01/28/23 [facility] Coding Summaryon 01-26-2023 Coding Summary HTMLBase 64 KdpjncdiBMm0xZs+PGhlYWQ +FN5DTPAoB46jaVVxwQ8pU0 NMTElOSywgQVBQTElOSyIgb iIwAR7duLByTJGe IC8+KX1jMYZwIbybuTLnw9M 3cBL5H35ijo2jTOcjlNS1JJ YcFbGypgozx8zdoIl4UWqmE mluOyBt QRYnbR71DNG0fZ67In12mFS qqBYap6ugyNw1ZbWcGEGqUY O7xXiiZSxkc6CpGDPuT38ey NUqp1Z9 DBYydTjfuWEnFqQjfGV7hE9 jCGvrawrlv4layojsUyf2hh 04uYVwk6P7bOK7W3PemjC0E GJvbGQg CwrcqCRLrT7tijjat3cqypa tMeNwPNGlXZg1SVr7WKMlpZ hfJnIcGT75TDE8IJZwlpFbS 2FsLWFs nHekXuI9l6E8Gz1FJ1UGVpp tN0GUQUDPSMosaQQ+PC90cj 88T9OwLjroYpa7YOYgOUN0d ZU2dU7o NTTmTSeiq9F6mOP0A9GryeV ptn1lj4saHJQcUXujM39qaK Zje7N4MEDlrKE9KEAztHpmH iBzaG93 Oyc+UXYiyVuqg1DzQpicy7k qy7svtQr1YpvrYSZvvfArnE mmCJH6k6TbLy9gBYWurQI8h OB7zJ1i DaPdYgO1LShsZ834IqBimZO eBtrpT93cV7GfrNU+PHRyPj a4CQChoSoqYG7yP9JhFUGla mctbGVm cAglTS5xPJGfnqjiPPOefT3 zEUYkD7m1QaFkAjZ5GOpqA4 OxQJWadmuvFy58vV9zKsKrO xA9ULze N6XmugP5IJMvwFWoFRkfXIO 2O23me4S0NRJlZISwNNW9jM G6wG4tqTxkxptxiTGiiDwnp mVydGlj QJqsAGfeF660EMXayKvwWxW vZGluZyBEYXRlOiAgMDgvMj MvMjAyMzwvdGQ+OLKpVAI2o WxlPSAn zZQiAUvxKk4ajLlzzLtcMZ1 eUOHxokwqWPYfoM8dEAYraY AkrJtxYN8wAKTjkeosr188T iAxMHB0 GXZraTNnX2ZrvY0wZqBrQPH lQEFbD1MouCGeLTowB667WO oxDeK3UBZdhcVdR6VnVLWfe WduOiB0 a4V7Dt0Hk9KjssjcL1GoxDV oOjGfImluRPt6Q0QuGmlkgU I+TC03EVOyMA95NYm9VVZ4d WxlPSdi IYXcZ4DftF9cObXrBNDjQKE kOyc+PHRhYmxlIHdpZHRoPS jsZSGbZgLbhTmrCO6oOw8pC GVyLWNv nGzksRIiYnGvy3doVDPaUBy nSL0caDufG9DnqKI0IOLgj7 h6Qr29X92sZ8WlqQP+PGNvb BS6yKV9 uF7zJeFlPjD1EAydG778NtK woVXfUjsai6bjy4asqYj9If J1GQEixeMxhKvyUCU6g2AeA e40E50x IHdpZHRoPSIxNSUiIHZhbGl qcz9kxY5aVf2+EEHzdAH7kN O6cY8vZuBkAsN5KPdeW750T nRvcCIv Rszvc5cwi1jpbKt2LdMmKFK swhCwqGqjYFB7w4AaPv96Z4 LweBcqx9ZcYaa4ha51iWSnv 9M5yKF8 O6VgEYLzourwtEIbcVkfQW1 qIJAavyvaZCXjkG8iDSHmL6 d1XgTgOsZ9CVmbW4JqwkB5O GJvbGQg MZNwrUOQqT6acppbt1mdali zTpFgXXYvEFn4NZf8UPKuaD jyPiEnUAJ3TeQ3SKI2kTVjv D0jeJep qftvtU2dTuk+TUM9kBXksON WWL6yUdvgkYZ+SXVdVEK9pW yiGFabHSCtcG3oLJHdG2s0B iAwLjA1 VOcgP3XdiwY2XDRsgWRnUDO wsDUIyC0npthzf1tsrcdvAi BuWLNtKAq9TKu5FORsxVvcN iBsZWZ0 NqJ5ZPJ6hPBruQ0uyZjwplm raR4tUri+SrzlaMkxNOS2UL k5C1XgYqr1LCYzrHtaIW4xv GFkZGlu Lc5vhInqoSkmZC0hCNWydpk fk762LkNsd3hdNQStnLUvWE ouLXX3Q12pf7B0IZAmGRGmS GZ0sGQ5 hP9kaSjczmubcZYhdQwfbvG meYgdDHmkZLlsC279NJDxjN thSsJfYWe4M7PcZtu5TKSkk QcvKG1f lXCpXJnnXl0sdQlqdOkfHQ2 lIWCpcsdqz520HzCqj0tbWA OctQKuBSrcJLN0L71ki7P7J CMwMDAw GXE1cNZ9wZ9pfCkodsdgrXM mdDsgdmVydGljYWwtYWxpZ2 22GAXrdKkcIgGvoHt1G4HzR ru5UNWs bWrxGU2blQGwBBohRy3cmBx daBpmXJ9eFZZkvvsbv845Ao Sbx6pwZNPpnAJmGQltVQM4Q 83oh4E1 HWKvVRWfQMA9cPG3gO4eaVg nbjogbGVmdDsgdmVydGljYW hwCLlyQ563VYEbpWzpZcOtc GllbnQg WTifBXe4C5AiVsafaZR+PC9 2MHEpSX20oYOxdLMiw2jklI b8CxRlJQFdBWZ6cHwmTVgnm 3JkZXIt K40idDAiu0P4RIGqzQlhuZX jDsOcmIQ8wL7vYCvepayoo8 khuxhjAonav7plbd40vP34T 29sIHdp ZHRoPSIzMCUiIHZhbGlnbj0 soV8lQv9+JDNweKL4sOB8yS 1gNYRtWdW0SVsnJ325MpDei CIvPjxj x5wls4ujxAe6HbI8HHGnvmO ipAshUQK5r0ShLa60L75vMS dpZHRoPSIyMCUiIHZhbGlnb t7hjZ2b Ii8+ISVauQA5oDL3nD1kQzA sMpT0ORwvX450GyCtfOYuVy rtW86kN3KkqCW+TJFeUae1M CBzdHls GX0teUSoDMxwJa0eCJW3GfC jWjQiGVuaM8YqPJJjauokzp rmhHL6UCWeUMCvuU15Br6fz DogMTBw kKICfZ8rzviks5xwfmtjLjI vNIHwRRi8LEo8DCIciZusUl FgLMZ7SiY0MNU9qTVilK7vt Glnbjog yF0dD3LwLRFythaxNt80uS3 oZbSaLfX7KHntXne+U0FNUy wgQUxFWEFOREVSIExFRTwvd GQ+PHRk CRB9tQidDKwzIPMkzV4hADL tQ5f2YxXgBdD1MXsfQ9FvWF XncbbqVk28yO6jGaGlJhJ0F ZzvP1Ak raY3KLWxvVFmTAxlJSN4V82 wb0T9KHKqCQKbOWO0eQE2eU 1hbGlnbjogbGVmdDsgdmVyd GljYWwt EWiaF428NQFmgJhpBuTqYzL 0FnQ8Rmc0U4WySur9MIRcqL agZF2tnHZoHZpvEd7kvMsao NrhPX3m SHVadoioANUchG4yMWFltRQ bkIvbIQ6cBNCehpsxl993Ge WwWFB8FRAyoMLuZ8ZliG2jQ iAjMDAw KUNhT1CsnUKtZOqeL803DXp jXvI0LMVhzvJnN3ByYHEqkL ctRlI7k5E3Us90SXQRANUxx zwvdGQ+ WPKtNWZ9kOsaZRtgFABfbT4 sNMBlM5z5HvEdRvT9KKhdV8 KqTHIgwqosFv63rE7nZoAmS dH6JLfc I4GhrdQ8IJQwhILoSWekJPS 2M94wk9I0DQDxSAQeIMU6fR N8kK2ytJgtojdqlBNveMfvi mVydGlj GKuuROryZ412TAAvjHrwEt0 FIPD2Z9FvXve0WPLzzQocLE 7kmLHtXJsvXe7acYsfqAtaD W5pRJFs okhiUDSwdX9eSEUxkSLicOa rHP0zHPYxhgefd823IyKaWL E3YKMgdSWmL0AnaP0oTyYkH DAwMDAw Q4MstMJqGKdaO096NPlgAtF 9WZKrguRoU5KbBPXjbBkaPw I8p6K4Yh1EjHQsZ7EmV4y0G 3RkPjwv dHI+YB42ILUyGD43fLCyaHK to1rqaSx8MyKjWBZhFUL6xT upJXwpb3UoOBNkZ21jlDQvy 2B0SIUo hIrmaNElKdDkhZS3gC9eKQi kpohzp2uhuuzsFdswa5kaut 34pC20Y87mAZnhRJEyFPKuY CUiIHZh rCjuok6sdG6iXn2+PGNvbCB 1mJZ1qP4vYrTkRxV3WJdlG9 90IuZqnSNeVlsen1weq6hfv Di0SjHu DZOhwyPsuCxjWDV9i7JrQd9 4X09jKPshMYTbELOoPCYwCS IriEhvlf0vjS6hUw0+PC9jb 5gezw17 fV13tMK+MQDyRWV5kZjlWBv vXJFtcS9cQGopPwZ4EEVfVq XgvB06qVOgRKcsWt4rzZcij GxbHE1g APVufthcp970RqCne6dqNQU pbWVvJUdfYXL6Y03vy1F0HH DkAAVcKCJ5iMQ3eQ9abGaec jogbGVm zAmzfjWaaHmlYCczVGyaN21 5TFThqTwaYrMhsRSmH1udbe FPYP4oYosmgMT+ZDJdQBT3q WxlPSdw JISzsO6zNKNwT9c0PmKyScB 2KHzqJ1NnpjM5TPKchJWtYM MhwWRDmL8mclnkf8kjqsoqB zAwMDAw PTm3QTm8NJDyiSxaDuFeIWQ 4CpV4YSQ7dTWbtS0kaVodey sneI1rBtq+RklOOjwvdGQ+P HRkIHN0 vHgxCBlvRZZdnU7lJDWhU2d 3SuUiNwZ8IIpuM8MzrmS5CL KjkOSeKUIphRJPsU8mqqifu 2xvcjog TaOoGQXwCOu2UAj2RWFrfZq fKuJvCVZ3KuI8CZB6fDCmyE 2vrUusjklhqV5cHsk+TVJOO jwvdGQ+ JGPnZXX3zNmmNIbeKRBsqL8 cYOKfV9x2MaDtPgN5XDumV2 IfnhZ1SCGmgQXiFSEekDXYw O9mewif a4rtihrfGyIbILAqBYu9VJx 6DSXkuYtuSpXzIQU5NxC9IK P8lVKzaT3ckDhzcstzmG6kP yc+UGF5 JAG5BY40PO07F8PmKxaifCH ibGU+PHRhYmxlIHdpZHRoPS oxHPQcPuSshBipBS8bSp7nE GVyLWNv bGx (more content not included)... 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 - famotidine/Ca carb/mag hydrox (ACID MATCHER OFFBEARER COMPLETE, FAMOT, ORAL) Take 1 tablet by mouth twice daily. - B Complex Vitamins capsule Take 1 capsule by mouth once daily. - lm-ggs-azsef acid-lutein (CENTRUM SILVER) 400-250 mcg chew Take [...] Encounter Status:Closed by ANTONIO PUGA on 01/22/23 Normal [facility] CNOVon 01-20-2023 CNOV Office Visit (ABHINAV ) SPIKE NIELSEN ([id number]) 1980 M Date Time Provider Department 01/20/23 [...] No Zahraa Stovall 01/20/2023 9:13 AM Signed [facility]dominal [facility] - HISTORY AND [...] mouth once daily. famotidine/Ca carb/mag hydrox (ACID MATCHER OFFBEARER COMPLETE, FAMOT, ORAL) Take 1 tablet by mouth twice daily. B Complex Vitamins capsule Take 1 capsule by mouth once daily. cn-dbs-dinxx acid-lutein (CENTRUM SILVER) 400-250 mcg chew Take [...] not in (more content not included)... Normal [facility] Coding Summaryon 01-20-2023 Coding Summary HTMLBase 64 IcvxogmhIUm5rAd+PGhlYWQ +HV6DJIYcM04drCEwsB6uI1 NMTElOSywgQVBQTElOSyIgb vUuMX6roQCaWXEm IC8+YE8wXTZjKjbgtVGbm6C 7oLB5N30nju8vLSpdtYV3RC UeLkCfefhtf0iihJk2CQebY mluOyBt RHLzyM05SGM7hX08Ks46hEZ flZGho8dlpIv5PlHnMHXwYS B8aKdxKQfkw1IiRHViZ29dl OZxu4H4 CBGyiEwvlWIuStRvpVT5pG2 zDIibiivod0javdojAws2fx 42lKRob2I1rDH1I7MyocR3B GJvbGQg QblhvBGUsK8qzgktw0attmq ySjAlOVDoOTa1RIf8MZOzhR pkNmByMU64HKX7UQZjekBdU 2FsLWFs lAzhJmU1j4K9Kt8EL4MOYgj xE1KJCOJELBznoDX+PC90cj 02X6OgIcfuAfh7WCNuLND7q AQ3rQ0s YWEnQVhbl3J6iEO1P1NavgL tff6tz3tjMXNpLFbpL58wtK Dnk9K9XUYhdTV6WKEklRcdG iBzaG93 Oyc+ICAlvZrfn8RgHnwvy9q ja2bkfSf6JugtQCGbsdOxpR yuDDL1n8ToMr6eUOMnsNC6h WV6uD2b EgOxIaY9NMloP282JyNeuPP pFwkkF29hO9DweCO+PHRyPj z0JSWgcQcoLX7aO7WoIXDgy mctbGVm fSnsTP2zIOQfiehzMPLjqF4 sXJGsP9n5ZuAqCgG2MIglV5 NhKYKymditWl24hA4vEbQjS jL0VIrh J0ZyrrZ5HRQzbPBsEJmvUMX 0S36tg4Q6OUBlEDBeVWZ1gC R1wZ3zpIzyccjfzPFlvEtzi mVydGlj KFkqDCxuM418PHJebXbcLdS vZGluZyBEYXRlOiAgMDgvMT cvMjAyMzwvdGQ+YQQfHTP7q WxlPSAn lIHrRVacVc5ryPgwjWxpAG6 eNCFxitglOVWzzW0cPBZwoK SnhFmyQR4jZMEcfdqso339Y iAxMHB0 MHHyfKLvV9HxhT1uXwXtQKQ mOQDvU5SzpRBvGEozM038SM poVlB0WFMqnkGdU3LgLACmr WduOiB0 k4H3Ko0Eb9UfiboyV5HrgRQ qYqGaClixSTp0R7BrDkmhzY I+EX07HRYgUE11AAi3LIX8k WxlPSdi RNQdC0OioL4pPaWgATHhIBR kOyc+PHRhYmxlIHdpZHRoPS puXIQuWfXtrOcoXQ6mGe0eX GVyLWNv tFfxyPLiHaDbt2yjXFFlQCi qLA6psPdpN9ZhiBN2FJJcf9 h5Rd60S70zY3DjlIL+PGNvb RY8aSZ9 wQ1gOyEpIoI6UBdrA055DbT rxWUeMizwd4qsy1pbcCb2Mf O8QMBctsDszNjmVEX3q3HnG q90D56l IHdpZHRoPSIxNSUiIHZhbGl uia1iqR5xCn0+TSPipYF4xB P5mU0hKgMwNnF2SYohD390Y nRvcCIv Hrisi1vpb3aodOi3HoNaWNX igvVucSnrIXD2k1JlNb25G1 HbiZrao9GwNav4bt93jXNfv 3N6hFS2 D5NdLEPktmndgNQcoKuoWU5 uVDGkbpptXYWfhU8mOALyC0 x0TePcMgV6ARakJ4NxlvO2S GJvbGQg LOYgjIAScS6qcqfex1mgcqs lOzFsMBShIMz3GAd2YMBffO nbRbChBQP1EkL6ZIQ3uYNoi E5ukKwr lbiqhG3zSfg+QLA4bSAwvPH KFQ5wNhaclZI+URKySOZ4iF jiJItiAFUgoJ2fHLVpF1s8K iAwLjA1 DKkkK2YodbG6OIGfzCHvHFY nyTHFgR7upratw3xztwuoWr EeYAEwFWe8XOx5ZQXcgEodK iBsZWZ0 VjP4YLD6oBLbsB5qjTaqyrx spF9gRaw+WzvljKawBQK7PH o7G2DcPtb4VRIevRrrYZ2sv GFkZGlu Vx1kqIffbOjtON8lNFYesqc ea016EqPxs1ptBCDyfXOdNM shEDU0K37um3O6QEBsUVUkT BT9uNB4 mX5mfDixlptcjDTgcLghyiX ltKkuXEwkYGelS625ROFrqY ltNqHhCZp7W6IqFeh1YJFgd BblYB1s pSNoPRqsPc9jdWofpTnfYE5 fZYVwhdqhx415PsWoa3jhGS YjvMKaDQfnEJT2M97il6Q4E CMwMDAw RLI6mVY7aC8ghYjfjpzbtRC mdDsgdmVydGljYWwtYWxpZ2 21IQGhyPlzPlIcnGl4H5PvK io6WVFa eWclHY3xtQVbXVakDy7fwQd vqCevEF7sVIBxrhjdw127Re Ndu2xjEGDztOJqUWrmKQR3D 92ww7N0 DOJnTEFaJIQ0tEG4cT0uvMf nbjogbGVmdDsgdmVydGljYW xaYAlkY261ZJTdmOvsIkPte GllbnQg VUhtBXa7S8CjEcbhwBT+PC9 3UHThPR26yKDiiUVdj0rnmM u3CkRrVIJeIWD5tYlvNKgup 3JkZXIt H05pmMKld0K8OJKtpFfxrYL qTtKsdNA0dZ1hDSwlwjjfh1 orkrpnPlywq7yslv04qS43G 29sIHdp ZHRoPSIzMCUiIHZhbGlnbj0 qhU2kSs1+PZTbhZP1wNG5vK 0sZICaLoS6RWnlI357OlSwh CIvPjxj m6dtl9dtzRp5FhU1EJTsloZ glLoqCNB3p5WxIc41T90yXA dpZHRoPSIyMCUiIHZhbGlnb i6tjF4e Ii8+PGZnjUQ9wIH9fR7hAcM oQiD3DCznK272QdIrcEJuFz yjN91jC0FkmDH+OEOfNjm4E CBzdHls GQ0rsGDeCVzsOk3aLQU0DaS aYvXoRDvvU4LbYKGdgsunme hquAK9CSRsYCIpfW27Cz3be DogMTBw oQDVlB8hrtqoy7ldkkulXqA vBJVqSEt0MJu1JYQipJadJi ZzBTO6OgX2PEM1vBKmvP8me Glnbjog jP9zC3BcYZZybjuxDu60bV4 vEpZoNsO1FTzbKwa+U0FNUy wgQUxFWEFOREVSIExFRTwvd GQ+PHRk VBZ3vNmhFErjUCKpdJ8lRYC wE8y2TdWiDnM2LZzvL0DwPB LmfbfbSr69eN7dLfDhZpJ4V QlyB4Vz khC2AGNskSYtDVkzKLQ0Y25 hk3K5YUBhJCDlCXZ2kFV7gI 1hbGlnbjogbGVmdDsgdmVyd GljYWwt NNdwO595ATDnlGquFoDsWqT 4MgJ1Dzm2H7UqAvh9BXYefO coOD0ybGZhRFomNm3zhZnub MjgDX0n LTQbmyjzWITyyI8lETLpgBT hqHkoYJ0aKGTapeubu073Ff OuSNE6DSXeoSYgT3ShvD6qS iAjMDAw WAFiI5ViaVXbNOprH368ITl nXjC6VNVfwyYtY6AbCWAbyN vsQnQ1e5C2Ss16KSYYMDCts zwvdGQ+ NZGuOCY8mWtnSCsfGJEnuS2 hNWOuO8i5IqHqWfW0TOhqY2 NyAAValemuRw39nW7tMcJrF hA1ZMjy X5ViqhJ9TUFepVWbYDcjGUN 6G95xf5G3WQEkHTEnRMJ5nT S7qD0xtYgjwckqhACgdYpqp mVydGlj QLzcXPteP864NHKzlSntIj8 KGJU1M6UhUsv0HJXtuOzcDN 9qxDPkRTyxOw0ljOkkmJfkD A3pHLKy niqsGOBzjN9gGMWgkJRqhLy nJE9aUNEkoodbo853NhLfMG E1FEExaMHxM0OwxH4wKxAfG DAwMDAw S5MasHCnDTcuY724ZMtcDwD 2IRUwdfRsP5SeZMUxkFshJz B6a8H8Lc1RAGcehTN+PC90c q69D2Uq WnbuLhk0GWKzYDL6iFT6aB0 gNTGpIIkmg5Y8zMA0P1Kpfr Tmyu9eu4kjPZMgZXskQ34yl DUcr4O2 BNDvbOD9DOGffUnoDzIqwX2 3Oyc+XMVwuShab6GpDhzxj7 vsu5xfhQe1TtDcDIHbvoFqg WduPSJ0 t6ThXa11H37eLKuoTWRrENT jJTDaLVNgjTetgt7leQ3nUr 8+ANZaoDR7yWM5kA8qIwSuW eY4FHdw A846MeCxsDNlTxzxm7zzp2e tbFe4StQaKKVsmeHqqAkkXI T2t4WuTv25N8YjlUjxk7MhD ba9ma88 mVFsg4J6tFK0U8MrCBJhrop hmFBdxBkiQE3rOVRmymchGP HonG3eBPLiD5k0KeTuNmN5D IxjU1Xa wwC2PAOmjGZtERXnhJQChD2 yxriyz6gaamawHmSvKUMhGZ y3QLo8XWRgbZmlIpLyGQX6A iP8QQS6 jGUqzG5bcSvrkqprzI3hDdn +NCu5w5sruQSpXR3nsGH7GJ 28TR14zYCok3N2rNX9P2WwH GRpbmct duopdOX2AVBgQDFciO96Fa5 woJhpXd2lQREqUPW2TZDgoN FkM9AnsT5rXfGoIDHxNESmK 3RleHQt WFruN989UHrpSuL5NHZxccE fM4TgHLVhkSugBxB8v9Y0Gb 4AUA58HE72PE29xLMjr8J8g WL7I1Yc IBOrmayxhszgoIH3RLKrAHO bjH12Tr7qgHduGl4pAARiZD O4VJKcaWUuY0KkyF6sCwCaF DAwMDAw V9IeyZCnSTihB665WPvuFeJ 4DBSakgIjX3IsPRKdkGhyBm Q8f4P1Hq7AXj40ER57FZ85k TYjl0R3 kWZ8W4OmCTCsaolemqauqMF 6PHByXETqpZ83Au9ymKmqEq 8mLORjAYZ8ONLpwHPkL3Dmk U7eAnYd UUAuEQPpW8ObqXLeNIjbN06 3ZEsjCsV0ATUqgrJnO0JiYU PjdKmvYpC8u5A3Ux2DEAoqx sp5D9Ap PjwvdHI+EB92NIOhCU41cIA tzXWrq0ucmYq1WbDuHJUsVG N3tPpsENkjc1RiRUHrO68yb IDpz5G2 IGN (more content not included)... Normal [facility] CT Abdomen/Pelvis w/o Contra ston 01-19-2023 [...] MD 01/19/23 11:35 a Technologist: Aman ZAVALA [facility] ED Clinical Summaryon 2022 ED Clinical Summary [facility] - Emergency Department [address] [place], [place] [id number] ED Clinical Summary PERSON INFORMATION Name: SPIKE NIELSEN Age: 42 Years Sex: MALE : 1980 MRN: Acct#: Visit Reason: Ear pain; Chills; Hernia; CHILLS, BODY ACHES, L EAR PAIN, PAIN WHEN BREATHING Arrival: 01/15/2023 06:31:06 Discharge: 01/15/2023 07:45:00 LOS: 000 01:14 Check In: 01/15/2023 06:31:06 Checkout:01/15/2023 07:45:00 Address: [address] [place] [id number] PCP: Provider, None PROVIDER INFORMATION Provider Role Assigned Unassigned Kareem Sanchez MD ED Provider 01/15/2023 07:05:56 Temitope Garcia RN ED Nurse 01/15/2023 07:19:43 VITALS INFORMATION Vital [...] a previous hernia repair by surgeon in [place]. Stated that he has appointment to follow-up [...] 1-2 times per year Other Comment: POB: [place] - 02/26/2019 15:28 - Carmen Jama Substance [...] tobacco user 0 (more content not included)... [facility] ED Note - Physicianon 2022 ED [...] a previous hernia repair by surgeon in [place]. Stated that he has appointment to follow-up [...] 1-2 times per year Other Comment: POB: [place] - 02/26/2019 15:28 - Carmen Jama Substance [...] abdomen, gr (more content not included)... Normal [facility] ED Note-Nursingon 01-15-2023 ED Note-Nursing AAOx3. SANTOS. Skin warm,dry, pink. REspirations regular, even. C/O ABD pain over his ABD hernia that is ongoing and is 10/10, but states he3 has had a fever and body aches. Has left lower leg redness. PMS intact. Breath sounds CTA bilat. Mom at cart side, interacts well with pt. Normal [facility] ED Patient Summaryon 023 ED Patient Summary [facility] - Emergency Department [address] [place] [address] PATIENT DISCHARGE INSTRUCTIONS Patient Information Name: SPIKE NIELSEN Age: 42 Years Date of : 1980 Reason For Visit: Ear pain; Chills; Hernia; CHILLS, BODY ACHES, L EAR PAIN, PAIN WHEN BREATHING Arrival Time: 01/15/2023 06:31:06 Primary Care Physician: Provider, None Attending Physician: Kareem Sanchez MD Comment: Visit Diagnosis: Diagnoses This Visit Cellulitis (L03.90) Cellulitis of left anterior lower leg (L03.116) Chills ([id number]) Ear pain ([id number]) Elevated blood pressure reading (R03.0) Hernia ([id number]) The Pharmacy at [facility] is open Tuesday through Tuesday from [...] alcohol and/or drug addiction problems; contact the [facility] 27/12 Crisis Hotline -Smrv 2ADTF wx [phone]. If you received any narcotics, sedation, or [...] legal documents With: Address: When: John Olmstead [address] [place] [address] Business (1) Within 5 to 7 days Comments: Contact your assigned on-call doctor for a follow-up appointment if you do not have a local family doctor or PCP. Alternatively, you may also follow-up in the Urgent Care at [facility] if you are not able to [...] and treatment you received today in the [facility] Emergency Department were for an urgent problem and are not intended as complete care. It is important for you to follow up with a doctor, nurse practitioner, or physician?s assistant manager bilingual for ongoing care. If your symptoms become [...] so we can reach you if necessary. [facility] Emergency Department has provided you with a complete list of medications post discharge. Please inform your trolley cleaner/provider of your visit and for further instruction on these medications. Any specific questions regarding your chronic medications and dosages should be discussed with your primary care physician(s) and/or pharmacist. New Medications [facility] [address] [place], [place] [id number], [phone] cephalexin (cephalexin 500 mg oral capsule) 2 [...] day. hy (more content not included)... Normal [facility] Provider Orderson 01-07-2023 Provider Orders [id number] Normal [facility] CT ABD WOon 06-23-2020 CT ABD [...] [facility] CBC w/Auto Differentialon Anemia LEAD RADIOLOGIC TECHNOLOGIST Normal [facility] Comment on above: Performed By: #### C BC #### [employer] [place] [address] [place] [id number] Anisocytosis Ql (Bld) LEAD RADIOLOGIC TECHNOLOGIST Normal [facility] Comment on above: Performed By: #### C BC #### [facility] [place] [address] [facility] [place] [address] Basophils Abs. # 0.0 K/uL Normal 0.0-0.1 [facility] Comment on above: Performed By: #### C BC #### [facility] [place] [address] [facility] [place] [address] Basophils/100 WBC (Bld) 0.3 % Normal 0.2-1.[address] [facility] Comment on above: Performed By: #### C BC #### [facility] [address] [facility] [place] [address] Basophils/100 WBC (Bld) LEAD RADIOLOGIC TECHNOLOGIST [facility] Comment on above: Performed By: #### C BC #### [facility] [place] [address] [facility] [place] [address] Bosophillia # LEAD RADIOLOGIC TECHNOLOGIST [facility] Comment on above: Performed By: #### C BC #### [facility] [address] [place] [address] Eosinophils (Bld) [#/Vol] 0.0 10*3/uL Normal 0.0-0.[address] [facility] Comment on above: Performed By: #### C BC #### [facility] [place] [address] [facility] [place] [address] Eosinophils (Bld) [#/Vol] LEAD RADIOLOGIC TECHNOLOGIST [facility] Comment on above: Performed By: #### C BC #### [facility] [place] [address] [facility] [place] [address] Eosinophils/100 WBC (Bld) 0.2 % Low 0.9-2.[address] [facility] Comment on above: Performed By: #### C BC #### [facility] [place] [address] [place] [address] Eosinophils/100 WBC (Bld) LEAD RADIOLOGIC TECHNOLOGIST Normal [facility] Comment on above: Performed By: #### C BC #### [facility] [place] [address] [place] [address] Erythocytosis LEAD RADIOLOGIC TECHNOLOGIST Normal [facility] Comment on above: Performed By: #### C BC #### [facility] [place] [address] [facility] [place] [address] Erythrocyte distribution width (RBC) [Ratio] 13.5 % Normal 11.5-14.[address] [facility] Comment on above: Performed By: #### C BC #### [facility] [place] [address] [facility] [place] [address] Hematocrit (Bld) [Volume fraction] 41.8 % Normal 36.7-50.[address] [facility] Comment on above: Performed By: #### C BC #### [facility] [place] [address] [facility] [place] [address] Hemoglobin (Bld) [Mass/Vol] 14.0 g/dL Normal 12.4-17.[address] [facility] Comment on above: Performed By: #### C BC #### [facility] [place] [address] [facility] [place] [address] Hypochromia LEAD RADIOLOGIC TECHNOLOGIST Normal [facility] Comment on above: Performed By: #### C BC #### [facility] [place] [address] [facility] [place] [address] Large Platelets LEAD RADIOLOGIC TECHNOLOGIST Normal [facility] Comment on above: Performed By: #### C BC #### [facility] [place] [address] [place] [address] Leukocytosis LEAD RADIOLOGIC TECHNOLOGIST Normal [facility] Comment on above: Performed By: #### C BC #### [facility] [place] [address] [place] [address] Leukopenia LEAD RADIOLOGIC TECHNOLOGIST Normal [facility] Comment on above: Performed By: #### C BC #### [facility] [place] [address] [place] [address] Lymphocytes (Bld) [#/Vol] 1.0 10*3/uL Low 1.3-2.[address] [facility] Comment on above: Performed By: #### C BC #### [facility] [place] [address] [place] [address] Lymphocytes (Bld) [#/Vol] LEAD RADIOLOGIC TECHNOLOGIST Normal [facility] Comment on above: Performed By: #### C BC #### [facility] [place] [address] [place] [address] Lymphocytes/100 WBC (Bld) LEAD RADIOLOGIC TECHNOLOGIST Normal [facility] Comment on above: Performed By: #### C BC #### [facility] [place] [address] [place] [address] Lymphocytes/100 WBC (Bld) 26.9 % Normal 17.0-45.[address] [facility] Comment on above: Performed By: #### C BC #### [facility] [place] [address] [place] [address] Lymphocytosis # LEAD RADIOLOGIC TECHNOLOGIST Normal [facility] Comment on above: Performed By: #### C BC #### [facility] [place] [address] [place] [address] Lymphocytosis % LEAD RADIOLOGIC TECHNOLOGIST Normal [facility] Comment on above: Performed By: #### C BC #### [facility] [place] [address] [place] [address] Macrocytosis LEAD RADIOLOGIC TECHNOLOGIST Normal [facility] Comment on above: Performed By: #### C BC #### [facility] [place] [address] [facility] [place] [address] MCH (RBC) [Entitic mass] 29.2 pg Normal 27.0-31.[address] [facility] Comment on above: Performed By: #### C BC #### [facility] [address] [facility] [place] [address] MCHC (RBC) [Mass/Vol] 33.5 g/dL Normal 33.0-37.[address] [facility] Comment on above: Performed By: #### C BC #### [employer] [facility] [place] [address] [facility] [place] [address] MCV (RBC) [Entitic vol] 87.0 fL Normal 80.0-94.[address] [facility] Comment on above: Performed By: #### C BC #### [facility] [place] [address] Microcytosis LEAD RADIOLOGIC TECHNOLOGIST Normal [facility] Comment on above: Performed By: #### C BC #### [facility] [address] [facility] [place] [address] Monocytes (Bld) [#/Vol] 0.3 10*3/uL Normal 0.3-0.[address] [facility] Comment on above: Performed By: #### C BC #### [facility] [facility] [place] [address] Monocytes/100 WBC (Bld) 7.1 % Normal 5.5-11.[address] [facility] Comment on above: Performed By: #### C BC #### [facility] [address] [facility] [place] [address] Monocytosis % LEAD RADIOLOGIC TECHNOLOGIST Normal [facility] Comment on above: Performed By: #### C BC #### [facility] [place] [address] [place] [address] Neutropenia # LEAD RADIOLOGIC TECHNOLOGIST Normal [facility] Comment on above: Performed By: #### C BC #### [facility] [place] [address] [place] [address] Neutropenia % LEAD RADIOLOGIC TECHNOLOGIST Normal [facility] Comment on above: Performed By: #### C BC #### [facility] [place] [address] [place] [address] Neutrophils (Bld) [#/Vol] LEAD RADIOLOGIC TECHNOLOGIST Normal [facility] Comment on above: Performed By: #### C BC #### [facility] [place] [address] [facility] [place] [address] Neutrophils Abs. # 2.4 K/uL Normal 2.2-4.8 [facility] Comment on above: Performed By: #### C BC #### [facility] [place] [address] [facility] [place] [address] Neutrophils/100 WBC (Bld) LEAD RADIOLOGIC TECHNOLOGIST Normal [facility] Comment on above: Performed By: #### C BC #### [facility] [place] [address] [facility] [place] [address] Neutrophils/100 WBC (Bld) 65.5 % High 43.0-65.[address] [facility] Comment on above: Performed By: #### C BC #### [facility] [place] [address] [facility] [place] [address] Nucleated RBC (Bld) [#/Vol] 0.0 10*3/uL Normal [facility] Comment on above: Performed By: #### C BC #### [facility] [place] [address] [place] [address] Nucleated RBC/100 WBC (Bld) [Ratio] 0.0 % Normal [facility] Comment on above: Performed By: #### C BC #### [facility] [place] [address] [facility] [place] [address] Pancytopenia LEAD RADIOLOGIC TECHNOLOGIST Normal [facility] Comment on above: Performed By: #### C BC #### [facility] [place] [address] [facility] [place] [address] Platelet mean volume (Bld) [Entitic vol] 10.7 fL High 7.4-10.[address] [facility] Comment on above: Performed By: #### C BC #### [facility] [place] [address] [facility] [place] [address] Platelets (Bld) [#/Vol] 91 10*3/uL Low 148-[address] [facility] Comment on above: Performed By: #### C BC #### [facility] [place] [address] [facility] [place] [address] Poikilocytosis LEAD RADIOLOGIC TECHNOLOGIST Normal [facility] Comment on above: Performed By: #### C BC #### [facility] [place] [address] [facility] [place] [address] RBC (Bld) [#/Vol] 4.80 10*6/uL Normal 4.13-5.69 [facility] Comment on above: Performed By: #### C BC #### [facility] [place] [address] [facility] [place] [address] Small Platelets LEAD RADIOLOGIC TECHNOLOGIST Normal [facility] Comment on above: Performed By: #### C BC #### [facility] [place] [address] [facility] [place] [address] Thrombocytopenia LEAD RADIOLOGIC TECHNOLOGIST Normal [facility] Comment on above: Performed By: #### C BC #### [facility] [place] [address] [place] [address] Thrombocytopenia. LEAD RADIOLOGIC TECHNOLOGIST Normal [facility] Comment on above: Performed By: #### C BC #### [facility] [place] [address] [facility] [place] [address] Thrombocytosis LEAD RADIOLOGIC TECHNOLOGIST Normal [facility] Comment on above: Performed By: #### C BC #### [facility] [place] [address] [facility] [place] [address] WBC (Bld) [#/Vol] 3.7 10*3/uL Normal 3.6-10.8 [facility] Comment on above: Performed By: #### C BC #### [facility] [place] [address] [facility] [place] [address] Comprehensive Metabolic Pane patel 04-21-2020 Albumin [Mass/Vol] 3.7 g/dL Normal 3.4-5.0 [facility] Comment on above: Performed By: #### C MP #### [facility] [place] [address] [facility] [place] [address] Albumin/Globulin [Mass ratio] 1.4 {ratio} Normal 1.1-2.[address] [facility] Comment on above: Performed By: #### C MP #### [facility] [place] [address] [facility] [place] [address] ALP [Catalytic activity/Vol] 70 U/L Normal 54-[address] [facility] Comment on above: Performed By: #### C MP #### [facility] [place] [address] [facility] [place] [address] ALT [Catalytic activity/Vol] 94 U/L High 13-[address] [facility] Comment on above: Performed By: #### C MP #### [facility] [place] [address] [facility] [place] [address] Anion gap [Moles/Vol] 9.1 mmol/L Normal 8.0-16.[address] [facility] Comment on above: Performed By: #### C MP #### [facility] [address] [place] [address] AST [Catalytic activity/Vol] 33 U/L Normal 3-[address] [facility] Comment on above: Performed By: #### C MP #### [facility] [address] [place] [address] Bilirubin Ql (U) 0.37 mg/dL Normal 0.00-0.99 [facility] Comment on above: Performed By: #### C MP #### [facility] [address] [place] [address] Calcium [Mass/Vol] 8.8 mg/dL Normal 8.2-10.0 [facility] Comment on above: Performed By: #### C MP #### [facility] [address] [place] [address] Chloride [Moles/Vol] 109 mmol/L Normal 94-110 [facility] Comment on above: Performed By: #### C MP #### [facility] [address] [place] [address] CO2 [Moles/Vol] 31 mmol/L Normal 21-[address] [facility] Comment on above: Performed By: #### C MP #### [facility] [address] [place] [address] Creatinine [Mass/Vol] 0.71 mg/dL Normal 0.50-1.[address] [facility] Comment on above: Performed By: #### C MP #### [facility] [address] [place] [address] GFR/1.73 sq M predicted among blacks MDRD (S/P/Bld) [Vol rate/Area] mL/min/{1.73_m2} Normal >[address] [facility] Comment on above: Result Comment: Edging Machine Catcher eliana Kidney Disease less than 60 mL/min/1.73 m2 Kidney Failure less than 15 mL/min/1.73 m2 Average estimated GFR by age: 40-49 years 99 mL/min/1.73 m2 Performed By: #### C MP #### [facility] [address] [place] [address] GFR/1.73 sq M predicted among non-blacks MDRD (S/P/Bld) [Vol rate/Area] mL/min/{1.73_m2} Normal >[address] [facility] Comment on above: Performed By: #### C MP #### [facility] [address] [place] [address] Globulin (S) [Mass/Vol] 2.6 g/dL Normal 1.5-4.[address] [facility] Comment on above: Result Comment: CO RRECTED REPORT: Previous result was 2.7 at 13:04 on 04/21/20 Performed By: #### C MP #### [facility] [address] [place] [address] Glucose [Mass/Vol] 112 mg/dL High 65-100 [facility] Comment on above: Performed By: #### C MP #### [facility] [address] [place] [address] Potassium [Moles/Vol] 4.1 mmol/L Normal 3.3-5.[address] [facility] Comment on above: Performed By: #### C MP #### [facility] [address] [place] [address] Protein [Mass/Vol] 6.3 g/dL Normal 6.1-8.2 [facility] Comment on above: Performed By: #### C MP #### [facility] [address] [place] [address] Sodium [Moles/Vol] 145 mmol/L Normal 132-145 [facility] Comment on above: Performed By: #### C MP #### [facility] [address] [place] [address] Urea nitrogen [Mass/Vol] 19.2 mg/dL Normal 3.2-26.[address] [facility] Comment on above: Performed By: #### C MP #### [facility] [address] [place] [address] Urea nitrogen/Creatinine [Mass ratio] 27 mg/mg High 6-[address] [facility] Comment on above: Performed By: #### C MP #### [facility] [address] [place] [address] Hemoglobin A1con 04-21-2020 HbA1c (Bld) [Mass fraction] 5.6 % Normal 4.8-5.[address] [facility] Comment on above: Result Comment: Pred iabetes: 5.7 - 6.4 Diabetes: >6.4 Glycemic control for adults with diabetes: <7.0 Performed at: [facility] [id number] Social Service Assistant: Romulo Peng PhD, Phone: [phone] Performed By: #### H A1C #### [facility] [address] [place] [address] Lipid Panelon 04-21-2020 Cholesterol [Mass/Vol] 121 mg/dL Normal 0-[address] [facility] Comment on above: Performed By: #### L IPID #### [facility] [address] [place] [address] Cholesterol in HDL [Mass/Vol] 37 mg/dL Low 39-[address] [facility] Comment on above: Performed By: #### L IPID #### [facility] [place] [address] [place] [address] Cholesterol in LDL [Mass/Vol] 55 mg/dL Normal 0-[address] [facility] Comment on above: Performed By: #### L IPID #### [facility] [place] [address] [facility] [place] [address] Cholesterol in LDL/Cholesterol in HDL [Mass ratio] 1.5 mg/dL Normal 0.0-3.[address] [facility] Comment on above: Performed By: #### L IPID #### [facility] [place] [address] [facility] [place] [address] Cholesterol in VLDL [Mass/Vol] 29 mg/dL Normal 5-[address] [facility] Comment on above: Performed By: #### L IPID #### [facility] [place] [address] [facility] [place] [address] Cholesterol.total/Ch olesterol in HDL [Mass ratio] 3.3 {ratio} Normal 0.0-5.[address] [facility] Comment on above: Performed By: #### L IPID #### [facility] [place] [address] [facility] [place] [address] Triglyceride [Mass/Vol] 146 mg/dL Normal 0-[address] [facility] Comment on above: Result Comment: 150- 199 Borderline High 200-499 High >499 Very High Performed By: #### L IPID #### [facility] [place] [address] [facility] [place] [address] Thyroid Camp Profileon Thyroid Camp Comment: see below Normal [facility] Comment on above: Result Comment: Star richard December 16, the Thyroid Camp has been changed. Please consult the back of our lab requisition. Performed By: #### C BC #### [facility] [place] [address] [place] [address] TSH, 3rd Generation 1.740 uIU/L Normal 0.358-3.740 [facility] Comment on above: Result Comment: NOTE -Dietary supplements containing high biotin levels may cause significant interference with affected lab tests, including cardiovascular diagnostic tests and hormone tests that use biotin technology. Incorrect test results may be generated if there is biotin in the patients specimen. Performed By: #### C BC #### [facility] [address] [place] [address] ALT (SGPT)on 12-03-2019 ALT [Catalytic activity/Vol] 93 U/L High 13-[address] [facility] Comment on above: Performed By: #### A LT #### [facility] [address] [place] [address] AST (SGOT)on 12-03-2019 AST [Catalytic activity/Vol] 39 U/L Normal 3-[address] [facility] Comment on above: Performed By: #### A ST #### [facility] [address] [place] [address] BILATERAL ANKLE MIN 3 VIEWSo n 12-03-2019 [...] above: Performed By: #### B MP #### [address] [place] [address] Calcium [Mass/Vol] 9.0 mg/dL Normal 8.2-10.0 [facility] Comment on above: Performed By: #### B MP #### [facility] [address] [place] [address] Chloride [Moles/Vol] 107 mmol/L Normal 94-110 [facility] Comment on above: Performed By: #### B MP #### [facility] [address] [place] [address] CO2 [Moles/Vol] 27 mmol/L Normal 21-[address] [facility] Comment on above: Performed By: #### B MP #### [facility] [address] [place] [address] Creatinine [Mass/Vol] 0.93 mg/dL Normal 0.50-1.[address] [facility] Comment on above: Performed By: #### B MP #### [facility] [address] [place] [address] GFR/1.73 sq M predicted among blacks MDRD (S/P/Bld) [Vol rate/Area] mL/min/{1.73_m2} Normal >[address] [facility] Comment on above: Result Comment: Edging Machine Catcher eliana Kidney Disease less than 60 mL/min/1.73 m2 Kidney Failure less than 15 mL/min/1.73 m2 Average estimated GFR by age: 40-49 years 99 mL/min/1.73 m2 Performed By: #### B MP #### [facility] [address] [place] [address] GFR/1.73 sq M predicted among non-blacks MDRD (S/P/Bld) [Vol rate/Area] mL/min/{1.73_m2} Normal >[address] [facility] Comment on above: Performed By: #### B MP #### [facility] [place] [address] [place] [address] Glucose [Mass/Vol] 95 mg/dL Normal 65-100 [facility] Comment on above: Performed By: #### B MP #### [facility] [place] [address] [place] [address] Potassium [Moles/Vol] 4.1 mmol/L Normal 3.3-5.[address] [facility] Comment on above: Performed By: #### B MP #### [facility] [place] [address] [facility] [place] [address] Sodium [Moles/Vol] 142 mmol/L Normal 132-145 [facility] Comment on above: Performed By: #### B MP #### [facility] [place] [address] [facility] [place] [address] Urea nitrogen [Mass/Vol] 16.6 mg/dL Normal 3.2-26.[address] [facility] Comment on above: Performed By: #### B MP #### [facility] [place] [address] [facility] [place] [address] Urea nitrogen/Creatinine [Mass ratio] 18 mg/mg Normal 6-[address] [facility] Comment on above: Performed By: #### B MP #### [facility] [place] [address] [facility] [place] [address] CBC w/Auto Differentialon Anemia LEAD RADIOLOGIC TECHNOLOGIST Normal [facility] Comment on above: Performed By: #### C BC #### [facility] [place] [address] [place] [address] Anisocytosis Ql (Bld) LEAD RADIOLOGIC TECHNOLOGIST Normal [facility] Comment on above: Performed By: #### C BC #### [facility] [place] [address] [place] [address] Basophils Abs. # 0.0 K/uL Normal 0.0-0.1 [facility] Comment on above: Performed By: #### C BC #### [facility] [place] [address] [facility] [place] [address] Basophils/100 WBC (Bld) 0.3 % Normal 0.2-1.[address] [facility] Comment on above: Performed By: #### C BC #### [facility] [place] [address] [facility] [place] [address] Basophils/100 WBC (Bld) LEAD RADIOLOGIC TECHNOLOGIST Normal [facility] Comment on above: Performed By: #### C BC #### [facility] [address] [facility] [place] [address] Bosophillia # LEAD RADIOLOGIC TECHNOLOGIST Normal [facility] Comment on above: Performed By: #### C BC #### [facility] [place] [address] [facility] [place] [address] Eosinophils (Bld) [#/Vol] LEAD RADIOLOGIC TECHNOLOGIST Normal [facility] Comment on above: Performed By: #### C BC #### [facility] [address] [facility] [place] [address] Eosinophils (Bld) [#/Vol] 0.0 10*3/uL Normal 0.0-0.[address] [facility] Comment on above: Performed By: #### C BC #### [facility] [place] [address] [facility] [place] [address] Eosinophils/100 WBC (Bld) LEAD RADIOLOGIC TECHNOLOGIST Normal [facility] Comment on above: Performed By: #### C BC #### [facility] [place] [address] [facility] [place] [address] Eosinophils/100 WBC (Bld) 0.2 % Low 0.9-2.[address] [facility] Comment on above: Performed By: #### C BC #### [facility] [place] [address] [place] [address] Erythocytosis LEAD RADIOLOGIC TECHNOLOGIST Normal [facility] Comment on above: Performed By: #### C BC #### [facility] [place] [address] [facility] [place] [address] Erythrocyte distribution width (RBC) [Ratio] 13.4 % Normal 11.5-14.[address] [facility] Comment on above: Performed By: #### C BC #### [facility] [place] [address] [facility] [place] [address] Hematocrit (Bld) [Volume fraction] 45.8 % Normal 36.7-50.[address] [facility] Comment on above: Performed By: #### C BC #### [facility] [place] [address] [facility] [place] [address] Hemoglobin (Bld) [Mass/Vol] 15.6 g/dL Normal 12.4-17.[address] [facility] Comment on above: Performed By: #### C BC #### [facility] [place] [address] [facility] [place] [address] Hypochromia LEAD RADIOLOGIC TECHNOLOGIST Normal [facility] Comment on above: Performed By: #### C BC #### [facility] [place] [address] [facility] [place] [address] Large Platelets LEAD RADIOLOGIC TECHNOLOGIST Normal [facility] Comment on above: Performed By: #### C BC #### [facility] [place] [address] [facility] [place] [address] Leukocytosis LEAD RADIOLOGIC TECHNOLOGIST Normal [facility] Comment on above: Performed By: #### C BC #### [facility] [place] [address] [place] [address] Leukopenia LEAD RADIOLOGIC TECHNOLOGIST Normal [facility] Comment on above: Performed By: #### C BC #### [facility] [place] [address] [place] [address] Lymphocytes (Bld) [#/Vol] LEAD RADIOLOGIC TECHNOLOGIST Normal [facility] Comment on above: Performed By: #### C BC #### [facility] [place] [address] [place] [address] Lymphocytes (Bld) [#/Vol] 1.7 10*3/uL Normal 1.3-2.[address] [facility] Comment on above: Performed By: #### C BC #### [facility] [place] [address] [place] [address] Lymphocytes/100 WBC (Bld) 33.3 % Normal 17.0-45.[address] [facility] Comment on above: Performed By: #### C BC #### [facility] [place] [address] [place] [address] Lymphocytes/100 WBC (Bld) LEAD RADIOLOGIC TECHNOLOGIST Normal [facility] Comment on above: Performed By: #### C BC #### [facility] [place] [address] [place] [address] Lymphocytosis # LEAD RADIOLOGIC TECHNOLOGIST Normal [facility] Comment on above: Performed By: #### C BC #### [facility] [place] [address] [place] [address] Lymphocytosis % LEAD RADIOLOGIC TECHNOLOGIST Normal [facility] Comment on above: Performed By: #### C BC #### [facility] [place] [address] [place] [address] Macrocytosis LEAD RADIOLOGIC TECHNOLOGIST Normal [facility] Comment on above: Performed By: #### C BC #### [facility] [place] [address] [place] [address] MCH (RBC) [Entitic mass] 29.4 pg Normal 27.0-31.[address] [facility] Comment on above: Performed By: #### C BC #### [facility] [place] [address] [facility] [place] [address] MCHC (RBC) [Mass/Vol] 34.0 g/dL Normal 33.0-37.[address] [facility] Comment on above: Performed By: #### C BC #### [facility] [address] [facility] [place] [address] MCV (RBC) [Entitic vol] 86.2 fL Normal 80.0-94.[address] [facility] Comment on above: Performed By: #### C BC #### [facility] [address] [place] [address] Microcytosis LEAD RADIOLOGIC TECHNOLOGIST Normal [facility] Comment on above: Performed By: #### C BC #### [facility] [address] [facility] [place] [address] Monocytes (Bld) [#/Vol] 0.4 10*3/uL Normal 0.3-0.[address] [facility] Comment on above: Performed By: #### C BC #### [facility] [address] [facility] [place] [address] Monocytes/100 WBC (Bld) 7.6 % Normal 5.5-11.[address] [facility] Comment on above: Performed By: #### C BC #### [facility] [place] [address] [facility] [place] [address] Monocytosis % LEAD RADIOLOGIC TECHNOLOGIST Normal [facility] Comment on above: Performed By: #### C BC #### [facility] [address] [facility] [place] [address] Neutropenia # LEAD RADIOLOGIC TECHNOLOGIST Normal [facility] Comment on above: Performed By: #### C BC #### [facility] [place] [address] [place] [address] Neutropenia % LEAD RADIOLOGIC TECHNOLOGIST Normal [facility] Comment on above: Performed By: #### C BC #### [facility] [place] [address] [place] [address] Neutrophils (Bld) [#/Vol] LEAD RADIOLOGIC TECHNOLOGIST Normal [facility] Comment on above: Performed By: #### C BC #### [facility] [place] [address] [place] [address] Neutrophils Abs. # 2.9 K/uL Normal 2.2-4.8 [facility] Comment on above: Performed By: #### C BC #### [facility] [place] [address] [place] [address] Neutrophils/100 WBC (Bld) 58.6 % Normal 43.0-65.[address] [facility] Comment on above: Performed By: #### C BC #### [facility] [place] [address] [place] [address] Neutrophils/100 WBC (Bld) LEAD RADIOLOGIC TECHNOLOGIST Normal [facility] Comment on above: Performed By: #### C BC #### [facility] [place] [address] [place] [address] Nucleated RBC (Bld) [#/Vol] 0.0 10*3/uL Normal [facility] Comment on above: Performed By: #### C BC #### [facility] [place] [address] [place] [address] Nucleated RBC/100 WBC (Bld) [Ratio] 0.0 % Normal [facility] Comment on above: Performed By: #### C BC #### [facility] [place] [address] [place] [address] Pancytopenia LEAD RADIOLOGIC TECHNOLOGIST Normal [facility] Comment on above: Performed By: #### C BC #### [facility] [place] [address] [place] [address] Platelet mean volume (Bld) [Entitic vol] 10.9 fL High 7.4-10.[address] [facility] Comment on above: Performed By: #### C BC #### [facility] [place] [address] [place] [address] Platelets (Bld) [#/Vol] 105 10*3/uL Low 148-[address] [facility] Comment on above: Performed By: #### C BC #### [facility] [place] [address] [place] [address] Poikilocytosis LEAD RADIOLOGIC TECHNOLOGIST Normal [facility] Comment on above: Performed By: #### C BC #### [facility] [place] [address] [place] [address] RBC (Bld) [#/Vol] 5.31 10*6/uL Normal 4.13-5.69 [facility] Comment on above: Performed By: #### C BC #### [facility] [place] [address] [place] [address] Small Platelets LEAD RADIOLOGIC TECHNOLOGIST Normal [facility] Comment on above: Performed By: #### C BC #### [facility] [place] [address] [place] [address] Thrombocytopenia LEAD RADIOLOGIC TECHNOLOGIST Normal [facility] Comment on above: Performed By: #### C BC #### [facility] [place] [address] [place] [address] Thrombocytopenia. LEAD RADIOLOGIC TECHNOLOGIST Normal [facility] Comment on above: Performed By: #### C BC #### [facility] [employer] [facility] [place] [address] [place] [address] Thrombocytosis LEAD RADIOLOGIC TECHNOLOGIST Normal [facility] Comment on above: Performed By: #### C BC #### [address] [place] [address] WBC (Bld) [#/Vol] 5.0 10*3/uL Normal 3.6-10.8 [facility] Comment on above: Performed By: #### C BC #### [address] [place] [address] RA Latex Turbid.on 0 RA Latex Turbid. <10.0 Normal 0.0-13.9 [facility] Comment on above: Result Comment: Perf ormed at: - [facility] [address] [id number] Social Service Assistant: Romulo Peng PhD, Phone: [phone] Performed By: #### R FWT #### [facility] [address] [place] [address] Sedimentation Rateon 020 Sedimentation Rate 4 mm/hr Normal 0-10 [facility] Comment on above: Performed By: #### E SR #### [address] [address] Uric Acidon 12-03-2019 Urate [Mass/Vol] 6.1 mg/dL Normal 3.4-8.6 [facility] Comment on above: Performed By: #### C BC #### [address] [place] [address] HISTORY PHYSICALon 0 HISTORY PHYSICAL HNO ID: [id number] Author: Viviane Hughes Service: ? Author Type: Physician Shoe Repairer Type: HANDP Filed: 06/19/2019 9:19 AM Note [...] mouth once daily. famotidine/Ca carb/mag hydrox (ACID MATCHER OFFBEARER COMPLETE, FAMOT, ORAL) Take 1 tablet by mouth twice daily. B Complex Vitamins capsule Take 1 capsule by mouth once daily. vy-dol-fvjmc acid-lutein (CENTRUM SILVER) 400-250 mcg chew Take [...] June 19, 2019 TIME: 9:18 AM PAGER: [phone] [facility] PT EDon 06-19-2019 PT ED HNO ID: [id number] Author: Daphne BeckwithRn) FRANCIA Byers Service: ? [...] By: Daphne Byers RN In Department: PROCEDURES [facility] PT ED HNO ID: [id number] Author: Daniela Mann) FRANCIA Ramos Service: Nursing Author Type: Registered [...] By: Daniela Ramos RN In Department: PROCEDURES [facility] HOSPon 06-12-2019 HOSP Patient:Jack Nielsen MRN: Height:5' 10.984 (1.803 m) Weight:353 lb 2.8 oz (160.2 kg) Outpatient Medications as of 06/19/19: doxepin capsule 50 mg levomilnacipran ER (FETZIMA) 40 mg famotidine/Ca carb/mag hydrox (ACID MATCHER OFFBEARER COMPLETE, FAMOT, ORAL) B Complex Vitamins capsule ta-nff-hstck acid-lutein (CENTRUM SILVER) 400-250 mcg chew triamterene [...] Used - Tobacco comment: quit in mid 18 Substance Use Topics - Alcohol use: Never [...] once daily. - famotidine/Ca carb/mag hydrox (ACID MATCHER OFFBEARER COMPLETE, FAMOT, ORAL) Take 1 tablet by mouth twice daily. - B Complex Vitamins capsule Take 1 capsule by mouth once daily. - nv-ivj-twihr acid-lutein (CENTRUM SILVER) 400-250 mcg chew Take [...] fevers. Neuro: No history of TIA's, stroke, CARDROOM HAND tumor, impaired sensorium, hemiplegia, paraplegia or quadriplegia. [...] Augusto Evans MD 06/08/2019 2:22 PM Signed [facility] Patient instructions for day of surgery [...] once daily. - famotidine/Ca carb/mag hydrox (ACID MATCHER OFFBEARER COMPLETE, FAMOT, ORAL) Take 1 tablet by [...] your physician) as soon as possilbe to [phone], ATTN: Augusto Evans MD If you have any questions or concerns regarding today's visit please do not hesitate to contact the [facility] at [phone] or [phone], ext [phone]. Progress Notes ([facility]): Umer Winston DO, 06/08/2019 3:40 PM Addendum ANESTHESIA PRE-OPERATIVE ASSESSMENT [...] 3:07 PM PAGER/CONTACT #: Previous Version Normal [facility] GFRon 08-03-2018 GFR/1.73 sq M.predicted MDRD (S/P/Bld) [Vol rate/Area] mL/min/{1.73_m2} Normal [facility] Comment on above: Result Comment: To e [...] <15 Performed By: #### G FR1 #### [place] [address] METABOLIC PANELon 08-03-2018 Albumin [Mass/Vol] 4.3 g/dL Normal 3.5-5.0 [facility] Comment on above: Performed By: #### 4 [id number] #### [place] [address] ALK PHOS 83 U/L Normal 24-126 [facility] Comment on above: Performed By: #### 4 [id number] #### [employer] [place] [id number] ALT [Catalytic activity/Vol] 61 U/L High 4-50 [facility] Comment on above: Performed By: #### 4 [id number] #### [place] [address] AST [Catalytic activity/Vol] 33 U/L Normal 3-55 [facility] Comment on above: Performed By: #### 4 [id number] #### [place] [address] Bilirubin Ql (U) 0.4 mg/dL Normal 0.2-1.6 [facility] Comment on above: Performed By: #### 4 [id number] #### [place] [address] Calcium [Mass/Vol] 9.6 mg/dL Normal 8.4-10.4 [employer] [facility] Comment on above: Performed By: #### 4 [id number] #### [facility] [place] [id number] Chloride [Moles/Vol] 106 mmol/L Normal 96-109 [facility] Comment on above: Performed By: #### 4 [id number] #### [place] [id number] CO2 [Moles/Vol] 26 mmol/L Normal 22-30 [facility] Comment on above: Performed By: #### 4 [id number] #### [place] [address] Creatinine [Mass/Vol] 0.90 mg/dL Normal 0.66-1.25 [facility] Comment on above: Performed By: #### 4 [id number] #### [place] [address] Glucose [Mass/Vol] 88 mg/dL Normal 65-100 [facility] Comment on above: Performed By: #### 4 [id number] #### [place] [address] Potassium [Moles/Vol] 4.3 mmol/L Normal 3.6-5.1 [facility] Comment on above: Performed By: #### 4 [id number] #### [place] [address] Protein [Mass/Vol] 6.9 g/dL Normal 6.3-8.2 [facility] Comment on above: Performed By: #### 4 [id number] #### [place] [address] Sodium [Moles/Vol] 141 mmol/L Normal 135-147 [facility] Comment on above: Performed By: #### 4 [id number] #### [facility] [address] [address] Urea nitrogen [Mass/Vol] 23 mg/dL Normal 8-26 [facility] Comment on above: Performed By: #### 4 [id number] #### [facility] [place] [id number] Social History Date Type Detail Facility Start: 03-19-2021 End: 01-20-2023 Alcohol intake Lifetime non-drinker (finding) [facility] Start: 06-19-2019 End: 01-20-2023 Gender identity Not on file [facility] Work Phone: Start: 06-08-2019 End: 01-20-2023 Tobacco smoking status NHIS Ex-smoker [facility] Start: 06-08-2019 End: 01-20-2023 Cigarettes smoked current (pack per day) - Reported 0.1 [facility] Work Phone: Start: 06-08-2019 End: 01-20-2023 Tobacco use and exposure Smokeless tobacco non-user [facility] Start: 1980 Sex Assigned At Not on file [facility] End: 06-06-1982 History of tobacco use Current smoker [facility] End: 06-06-1982 History of tobacco use Cigarette Smoker [facility] How often to you hav e a drink containing alcohol? Never [facility] Work Phone: Average Number of Drinks Not on file [facility] Vital Signs Date Time Vital Sign Value Performing Clinician Faci lity 01-20-2023 08:21-0400 Body height 180.3 cm Aj Crow MD Work Phone: [facility] 01-20-2023 08:21-0400 Body temperature 97.2 [degF] Aj Crow MD Work Phone: [facility] 01-20-2023 08:21-0400 Body weight 170.1 kg Aj Crow MD Work Phone: [facility] 01-20-2023 08:21-0400 Diastolic blood pressure 63 mm[Hg] Aj Crow MD Work Phone: [facility] 01-20-2023 08:21-0400 Heart rate 62 /min Aj Crow MD Work Phone: [facility] 01-20-2023 08:21-0400 Systolic blood pressure 148 mm[Hg] Aj Crow MD Work Phone: [facility] Clinical Notes 01-15-2023 to 09-14-2023 Telephone Encounter - Fadi Roberson RN - 04/14/2023 5:12 PM ESTTelephone Encounter - TecAntonio downs, RN - 01/22/2023 10:57 AM EDTTelephone Encounter - Antonio Puga, RN - 01/22/2023 10:54 AM EDT Note [...] doctor may want you to: ? Take dole-tiz-kbqnqlc medicines. ? Drink plenty of fluids. The [...] Applesauce. ? Rice. ? Lean meats. ? Sanders. ? Crackers. ? Do not eat or drink: ? Fluids that have a lot of sugar or caffeine. ? Alcohol. ? Spicy or fatty foods. General instructions ? Take euni-wtu-xirnxov and prescription medicines only as told by [...] use soap and water, use alcohol-based hand account director. ? Keep all follow-up visits. How is [...] the hospital. Summary (more content not included)... [facility] 06-16-2023 Note Patient Education Ma terials [...] at home: Medicines ? Take or apply mkds-fcq-srabaxi and prescription medicines only as told by [...] provider. Document Revised: 08/21/2020 Document Reviewed: 08/21/2020 [employer] Patient Education ? 2022 [employer]. [facility] 04-14-2023 Miscellaneous Notes Formattin g of this note might be different from the original. [facility] SPECIALTY CARE COORDINATION TELEPHONE ENCOUNTER Pt mother is helping him. LVM with call back number documented in this encounter [facility] 01-22-2023 Miscellaneous Notes Formattin g of this note might be different from the original. Unable to send [address] [employer] message- account not active documented in this encounter [facility] 01-22-2023 Miscellaneous Notes Formattin g of this note might be different from the original. [facility] SPECIALTY CARE COORDINATION TELEPHONE ENCOUNTER 01/21/18: called and left message for pt to call office. Provided this RNs contact number. documented in this encounter [facility] 01-20-2023 Note HNO ID: [id number] Author: Aj Crow MD Service: ? Author [...] plan as documented in the resident?s note. [facility] 01-20-2023 Note HNO ID: [id number] Author: Zahraa Stovall Service: ? Author Type: ? Type: Progress Notes Filed: 01/20/2023 9:13 AM Note Text: [facility] Abdominal [facility] - HISTORY AND [...] mouth once daily. famotidine/Ca carb/mag hydrox (ACID MATCHER OFFBEARER COMPLETE, FAMOT, ORAL) Take 1 tablet by mouth twice daily. B Complex Vitamins capsule Take 1 capsule by mouth once daily. zh-xob-tdicm acid-lutein (CENTRUM SILVER) 400-250 mcg chew Take [...] and discussed with Dr. Mignon Stovall, MS4 [facility] 01-20-2023 History of Presen t [...] as documented in the resident s note. [facility] Abdominal [facility] - HISTORY AND PHYSICAL Chief Complaint: [...] mouth once daily. famotidine/Ca carb/mag hydrox (ACID MATCHER OFFBEARER COMPLETE, FAMOT, ORAL) Take 1 tablet by mouth twice daily. B Complex Vitamins capsule Take 1 capsule by mouth once daily. da-jik-vsytp acid-lutein (CENTRUM SILVER) 400-250 mcg chew Take [...] Stovall, MS4 documented in this encounter [facility] 01-20-2023 Nurse Note What is the reason for your visit today? consult Who is your referring physician? Dr. Crow Are you having poor oral intake? NO Have you had unintentional weight loss of 15 lbs/7 Kg in the last 3-6 months? NO Bowels: diarrhea Wound: clean & dry Temperature: No Drains: No documented in this encounter [facility] 01-15-2023 Note Education Materials Infectious Disease Cellulitis, [...] these instructions at home: Medicines ? Take xqjf-wbi-eryupye and prescription medicines only as told by [...] provider. Document Revised: 03/04/2022 Document Reviewed: 03/04/2022 Elsevier Patient Education ? 2022 [employer] Procedures How to Take Your Blood [...] chair. ? Be (more content not included)... [facility] Evaluation note Diagnosis Incisional hernia, without obstruction or gangrene- Primary Incisional hernia without mention of obstruction or gangrene [facility] Incisional hernia, without obstruction or gangrene- Primary Incisional hernia without mention of obstruction or gangrene documented in this encounter [facility] Summary Purpose Family History No Family History Records FoundNo Family History Records FoundNo Family History Records FoundNo Family History Records FoundNo Family History Records FoundNo Family History Records Found Advance Directives No Advanced Directives Records FoundDocuments on File Type Date Recorded 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 Advance Directive(s) 06/08/2019 4:15 PM Documents on File Type Date Recorded 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 Advance Directive(s) 06/08/2019 4:15 PM Reason for Referral Specialty Diagnoses / Procedures Referred By Contac t Referred To Contact CT IMAGING Diagnoses Incisional hernia, without obstruction or gangrene Procedures CT ABD/PEL WO IVCON CT ABD & PELVIS W/O CONTRAST Marika Tavares, SALES DEVELOPMENT CONSULTANT.DIRECTOR IMMUNOLOGY [address] [place] [address] Imaging Referral ID Status Reason Start Date Expiration Date Visits Requested Visits Authorized [id number] Pending Review Auto-Generat ed Referral 01/04/2023 02/03/2024 1 1 Specialty Diagnoses / Procedures Referred By Contac t Referred To Contact Diagnoses Incisional hernia, without obstruction or gangrene Procedures CONSULT [facility] OFFICE/OUTPATIENT [facility] 60-74 MINUTES Aj Crow MD [address] [place] [address] Referral ID Status Reason Start Date Expiration Date Visits Requested Visits Authorized [id number] Authorized PCP Requested Referral 01/20/2023 01/20/2024 1 1 Additional Source Comments (unrecognized sect ion and content) No Status Records FoundNo Status Records FoundNo Status Records FoundNo Status Records FoundNo Status Records FoundNo Status Records Found INFORMATION SOURCE (unrecogn ized section and content) DATE CREATED AUTHOR 04/26/2019 [facility] DATE CREATED AUTHOR AUTHOR'S ORGANIZ ATION 06/19/2019 [facility] DATE CREATED AUTHOR AUTHOR'S ORGANIZ ATION 08/02/2020 [facility] DATE CREATED AUTHOR AUTHOR'S ORGANIZ ATION 04/16/2023 [facility] DATE CREATED AUTHOR AUTHOR'S ORGANIZ ATION 10/13/2023 [facility] DATE CREATED AUTHOR AUTHOR'S ORGANIZ ATION 10/20/2023 [facility] ysician Group Source Comments (unrecognize d section and content) In the event this informatio n is protected by the Federal Confidentiality of Alcohol and Drug Abuse Patient Records regulations: The Federal rules restrict any use of the information to criminally investigate or prosecute any alcohol or drug abuse patient.[facility] the event this information is protected by the Federal Confidentiality of Alcohol and Drug Abuse Patient Records regulations: The Federal rules restrict any use of the information to criminally investigate or prosecute any alcohol or drug abuse patient.[facility] the event this information is protected by the Federal Confidentiality of Alcohol and Drug Abuse Patient Records regulations: The Federal rules restrict any use of the information to criminally investigate or prosecute any alcohol or drug abuse patient.[facility] the event this information is protected by the Federal Confidentiality of Alcohol and Drug Abuse Patient Records regulations: The Federal rules restrict any use of the information to criminally investigate or prosecute any alcohol or drug abuse patient.[facility] the event this information is protected by the Federal Confidentiality of Alcohol and Drug Abuse Patient Records regulations: The Federal rules restrict any use of the information to criminally investigate or prosecute any alcohol or drug abuse patient.[facility] Care Teams (unrecognized sec tion and content) [employer] Display Builder Relationship Specialty Start Date End Date Antoine Alcazar [address] [place] [phone] Referring General Surgery 02/07/19 [employer] Display Builder Relationship Specialty Start Date End Date Antoine Alcazar [address] [place] [phone] Referring General Surgery 02/07/19 [employer] Display Builder Relationship Specialty Start Date End Date Antoine Alcazar [address] [place] [address] [address] [place] [phone] Referring General Surgery 02/07/19 [employer] Display Builder Relationship Specialty Start Date End Date Antoine Alcazar [address] [phone] Referring General Surgery 02/07/19 Reason for Visit (unrecogniz ed section and content) Reason Comments Consult Reason Comments 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 [facility]. provides no warranty or guarantee of the accuracy or completeness of information in this document.
== END 2023-11-09 12:57 | disposition home or self-care (01) ==
LOC: VC 12:56
PROVIDERS: PCP Radiology Diagnostic Radiology; Visit Provider Radiology Diagnostic Radiology
DX: I83.813 Varicose veins of bilateral lower extremities with pain (principal)
CPT/HCPCS: 36478

== ENCOUNTER 2023-11-17 12:59 | Outpatient (OUT) | payer OTHER, SELFPAY ==
--- NOTE | 2023-11-17 13:01 | VEIN_ITS ---
Patient Name: DAVI MCCULLOUGH MR#: [id number] : 1980 Exam Date: 11/17/2023 Ordering Doctor: DR AUGUSTO MENSAH M.D. RADIOLOGY REPORT PROCEDURE: FACILITY EST LMTD VEIN CENTER - OFFICE VISIT FOLLOW UP COMPARISON: [facility] EST LMTD, 10/26/2023. [facility] EST LMTD, 09/29/2023. PROGRESS NOTES: The patient reports improvement in leg symptoms. The patient had no problems following intravenous laser ablation of the left small saphenous vein. The patient did not require oral analgesics. The patient has worn his compression stocking. Physical exam demonstrates no erythema warmth or ulceration. No evidence of cellulitis or thrombophlebitis. The incision is sealed. Review of the ultrasound performed the same day demonstrates occlusive thrombus extending throughout the treated left small saphenous vein. Heat induced thrombus is 4.2 cm from the saphenopopliteal junction period no deep vein thrombus. The patient expressed a desire to proceed with treatment of incompetent left leg perforating vein.. VEIN/[facility] EST LMTD IMPRESSION: 1. Successful ablation of the left small saphenous vein 2. Persistent incompetent left leg perforating vein. PLAN: Intravenous laser ablation left leg incompetent perforating vein Nurse notes, history and physical were reviewed and confirmed, see attached forms. The nurse was present throughout the physical exam and consultation Dictated by: Augusto Mensah MD on 11/17/2023 at 13:37 Approved by: Augusto Mensah MD on 11/17/2023 at 13:38
--- NOTE | 2023-11-17 13:02 | VEIN_ITS ---
Patient Name: DVAI MCCULLOUGH MR#: [id number] : 1980 Exam Date: 11/17/2023 Ordering Doctor: DR AUGUSTO MENSAH M.D. RADIOLOGY REPORT PROCEDURE: VC EXT VENOUS LT LIMITED COMPARISON: VC EXT VENOUS LT LIMITED, 09/29/2023. INDICATIONS: I80.02 Phlebitis of superficial veins of lt lower extremity TECHNIQUE: Lower extremity ordaz scale and Duplex Doppler evaluation of the deep venous system from the inguinal ligament through the calf veins. FINDINGS: REGION: Left lower extremity. THROMBI: Negative for DVT. Heat induced thrombus visualized 4.2cm from the SPJ. COMPRESSIBILITY: Non-compressible segments corresponding to thrombus FLOW: Areas of no flow corresponding to thrombus CONCLUSION: Post ablation occlusion of the treated left small saphenous vein with heat induced thrombus 4.2 cm from the saphenopopliteal junction Dictated by: Augusto Mensah MD on 11/17/2023 at 13:25 Approved by: Augusto Mensah MD on 11/17/2023 at 13:26
== END 2023-11-17 13:00 | disposition home or self-care (01) ==
LOC: VC 13:00
PROVIDERS: PCP Radiology Diagnostic Radiology; Visit Provider Radiology Diagnostic Radiology
DX: I80.02 Phlebitis and thrombophlebitis of superficial vessels of left lower extremity (principal)
CPT/HCPCS: 93971; G0463

== ENCOUNTER 2023-12-14 12:59 | Outpatient (OUT) | payer OTHER, SELFPAY ==
[2023-12-14 09:31] VITALS: BP 122/80; PULSE 72; BMI 53.0
--- NOTE | 2023-12-14 09:31 | VEINCLINIC_ITS ---
Documented by User: Danya Holt 12/14/23 14:24 Vital Signs 12/14/23 09:31 Height 5 ft 11 in Weight 172.365 kg BMI 53.0 BP 122/80 BP Location Left Brachial BP Position Sitting BP Cuff Size Adult BP Source Automatic Cuff Respiration 18 Pulse 72 Comment The patient's blood pressure is elevated. Varicose Veins Patient in this day for EVLT of right leg perforators. thigh: bilateral, knee: bilateral, calf: bilateral, ankle: bilateral and [place]: bilateral cramping, dull, sharp and tender 8 4 years Worsened in recent months: Yes standing analgesics (Tylenol), bed rest, elevating extremities and compression stockings Reports muscle spasms of leg, edema, leg edema and other (ulceration) History of lower extremity trauma: No Superficial thrombophlebitis: No Family history of varicose veins: unknown Has patient had previous lower extremity venous surgery: No Patient has previously received the following treatment(s) for lower extremity varicose veins: Reports none Does patient have a history of : not applicable Does patient intend to have future pregnancies: not applicable Has patient had lower extremity venous scan with relux testing: Yes Support hose used: Yes Problems walking or doing physical activity: Yes How does it affect you: Compromised work d/t having to take multiple breaks throughout the day. Do you walk much: Yes Do you stand much: Yes Review of Systems ROS Narrative IAugusto MD personally performed the services described in this documentation, as scribed by Danya Holt RVT, RDMS in my presence and it is both accurate and complete. I, Danya Holt RVT, RDMS, am scribing for, and in the presence of, Dr. Augusto Mensah and in the presence of the patient. Status of ROS 10 or more systems reviewed and unremark able except as noted in history and below Cardiovascular Reports: edema, swelling of feet/ankles and leg pain with exertion Musculoskeletal Reports: extremity pain and extremity swelling Integumentary/Breast Reports: redness, new lesion, non-healing lesion and changes in skin color [facility] Medical History (Updated 12/14/23 @ 15:00 by Lucia Gupta) Phlebitis and thrombophlebitis of superficial vessels of right lower extremity ?I80.01 - Phlebitis and thrombophlebitis of superficial vessels of right lower extremity (ICD-10) Pain due to varicose veins of both lower extremities ?I83.813 - Varicose veins of bilateral lower extremities with pain (ICD-10) Chronic venous hypertension ?I87.309 - Chronic venous hypertension (idiopathic) without complications of unspecified lower extremity (ICD-10) Venous 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 veins ?I83.019 - Varicose veins of right lower extremity with ulcer of unspecified site (ICD-10) ?I83.029 - Varicose veins of left lower extremity with ulcer of unspecified site (ICD-10) ?L97.919 - Non-pressure chronic ulcer of unspecified part of right lower leg with unspecified severity (ICD-10) ?L97.929 - Non-pressure chronic ulcer of unspecified part of left lower leg with unspecified severity (ICD-10) Surgical History (Updated 12/14/23 @ 09:45 by Danya Holt) History of hernia repair ?Z98.890 - Other specified postprocedural states (ICD-10) ?Z87.19 - Personal history of other diseases of the digestive system (ICD-10) History of cholecystectomy ?Z90.49 - Acquired absence of other specified parts of digestive tract (ICD- 10) Family History (Updated 12/14/23 @ 09:46 by Danya Holt) Other Family history not known due to adoption Social History (Updated 12/14/23 @ 09:47 by Danya Holt) Within the past year, how often did you have a drink containing alcohol: monthly or less Smoking status: Never smoker Non-prescribed substance use: denies use Meds Home Medications and Allergies Home Medications ?Medication ?Instructions ?Recorded ?Confirmed ?Type Fabuxostat 12/14/23 History buspirone 5 mg tablet 5 mg PO BID 12/14/23 12/14/23 History calcium phosphate,dibasic 77 tab PO 12/14/23 History mg-vitamin D3 400 unit tablet dulaglutide 0.75 mg/0.5 mL 0.75 mg subcut QWEEK 12/14/23 12/14/23 History subcutaneous pen injector (Trulicity) ferrous sulfate 325 mg (65 mg 325 mg PO DAILY 12/14/23 12/14/23 History iron) tablet (Feosol) losartan 100 mg tablet 100 mg PO DAILY 12/14/23 12/14/23 History melatonin 5 mg capsule mg 12/14/23 History omeprazole 20 mg capsule,delayed 20 mg PO DAILY 12/14/23 12/14/23 History release trazodone 50 mg tablet 25 mg PO DAILY 12/14/23 12/14/23 History Allergies Allergy/AdvReac Type Severity Reaction Status Date / Time bupropion [From Wellbutrin] Allergy Unknown Verified 11/04/23 14:41 Exam Narrative Exam Narrative: I, Augusto Mensah MD personally performed the services described in this documentation, as scribed by Danya Holt RVT, RDMS in my presence and it is both accurate and complete. I, Danya Holt RVT, RDMS, am scribing for, and in the presence of, Dr. Augusto Mensah and in the presence of the patient. Constitutional Documenting provider has reviewed patient's vital signs: yes Common normals: oriented x3 Lymph Lymphatic: no lymphedema noted Cardio Common normals: regular rate Rate: regular rate Peripheral pulses: posterior tibial pulses present and dorsalis pedis pulses present Extremity Common normals: normal capillary refill General: calf tenderness and edema Right lower extremity: upper leg and lower leg Left lower extremity: upper leg and lower leg Neuro Common normals: oriented x3 Assessment and Plan Assessment and Plan (1) Pain due to varicose veins of both lower extremities: Plan Plan of care: Risks and benefits of the procedure were discussed at length and informed written consent was obtained.? Time-out completed for verification of correct patient, procedure and site.? Staff present during time-out: ? Augusto Mensah MD, Danya Holt RDMS,JUANI and Lucia Gupta RDMS Time Out Time Patient prepped and procedure performed in usual sterile fashion. Risk of injury related to use of Diode laser and/or laser devices? __BB___ ? Serial number of laser used :? [id number] Control panel self test performed, electrical cords in good condition, floor is dry, basin of water available, fire extinguisher in close proximity_EM__ Polycarbonate goggles available and Laser warning signs outside of doors___BB___ Eye protection provided to patient and staff in room_BB___ Use of laser retardant drapes and dull blackened instruments as directed__BB___ Use of nonflammable prep solutions and use of saline soaked sponges to protect tissues as indicated _BB___ Laser operated by Dr. Mensah Physician verbal confirmation laser locked in place__BB__ Laser start time (date and time) Laser stop time(date and time) [place] _8.0___ Treatment Site #1 mid/med calf Average laser use Joules Average laser use seconds Pulse continuous ___BB_? Pulse intermittent ___ Amount of Tumescent used Evaluated patient for signs and symptoms of electrical injury __BB___ ? Skin clear at insertion site __BB__ Patient tolerated procedure well.? Left leg Coban dressing applied to access site.? Applied Left thigh high leg compression stocking. Will return on // for Left leg limited venous ultrasound and exam. IAugusto MD personally performed the services described in this documentation, as scribed by Danya Holt RVT, RDMS in my presence and it is both accurate and complete. IDanya RVT, RDMS, am scribing for, and in the presence of, Dr. Augusto Mensah and in the presence of the patient. Procedures Procedure Note Date of procedure: 12/14/23 Pre-op diagnosis: I83.813 Procedure: EVLT of left right leg perforators. Surgeon: Augusto Mensah Documented by User: Lucia Gupta 12/14/23 14:52 Vital Signs 12/14/23 09:31 Height 5 ft 11 in Weight 172.365 kg BMI 53.0 BP 122/80 BP Location Left Brachial BP Position Sitting BP Cuff Size Adult BP Source Automatic Cuff Respiration 18 Pulse 72 Comment The patient's blood pressure is elevated. [facility] Medical History (Updated 12/14/23 @ 15:00 by Lucia Gupta) Phlebitis and thrombophlebitis of superficial vessels of right lower extremity ?I80.01 - Phlebitis and thrombophlebitis of superficial vessels of right lower extremity (ICD-10) Pain due to varicose veins of both lower extremities ?I83.813 - Varicose veins of bilateral lower extremities with pain (ICD-10) Chronic venous hypertension ?I87.309 - Chronic venous hypertension (idiopathic) without complications of unspecified lower extremity (ICD-10) Venous 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 veins ?I83.019 - Varicose veins of right lower extremity with ulcer of unspecified site (ICD-10) ?I83.029 - Varicose veins of left lower extremity with ulcer of unspecified site (ICD-10) ?L97.919 - Non-pressure chronic ulcer of unspecified part of right lower leg with unspecified severity (ICD-10) ?L97.929 - Non-pressure chronic ulcer of unspecified part of left lower leg with unspecified severity (ICD-10) Surgical History (Updated 12/14/23 @ 09:45 by Danya Holt) History of hernia repair ?Z98.890 - Other specified postprocedural states (ICD-10) ?Z87.19 - Personal history of other diseases of the digestive system (ICD-10) History of cholecystectomy ?Z90.49 - Acquired absence of other specified parts of digestive tract (ICD- 10) Family History (Updated 12/14/23 @ 09:46 by Danya Holt) Other Family history not known due to adoption Social History (Updated 12/14/23 @ 09:47 by Danya Holt) Within the past year, how often did you have a drink containing alcohol: monthly or less Smoking status: Never smoker Non-prescribed substance use: denies use Meds Home Medications and Allergies Home Medications ?Medication ?Instructions ?Recorded ?Confirmed ?Type Fabuxostat 12/14/23 History buspirone 5 mg tablet 5 mg PO BID 12/14/23 12/14/23 History calcium phosphate,dibasic 77 tab PO 12/14/23 History mg-vitamin D3 400 unit tablet dulaglutide 0.75 mg/0.5 mL 0.75 mg subcut QWEEK 12/14/23 12/14/23 History subcutaneous pen injector (Trulicity) ferrous sulfate 325 mg (65 mg 325 mg PO DAILY 12/14/23 12/14/23 History iron) tablet (Feosol) losartan 100 mg tablet 100 mg PO DAILY 12/14/23 12/14/23 History melatonin 5 mg capsule mg 12/14/23 History omeprazole 20 mg capsule,delayed 20 mg PO DAILY 12/14/23 12/14/23 History release trazodone 50 mg tablet 25 mg PO DAILY 12/14/23 12/14/23 History Allergies Allergy/AdvReac Type Severity Reaction Status Date / Time bupropion [From Wellbutrin] Allergy Unknown Verified 11/04/23 14:41 Assessment and Plan Assessment and Plan (1) Pain due to varicose veins of both lower extremities: Plan Plan of care: Risks and benefits of the procedure were discussed at length and informed written consent was obtained.? Time-out completed for verification of correct patient, procedure and site.? Staff present during time-out: ? August[facility] Mensah MD, [facility] MENAMS,RVT and Lucia Gupta RDMS Time Out Time__4485 Patient prepped and procedure performed in usual sterile fashion. Risk of injury related to use of Diode laser and/or laser devices? __BB___ ? Serial number of laser used :? [id number] Control panel self test performed, electrical cords in good condition, floor is dry, basin of water available, fire extinguisher in close proximity_EM__ Polycarbonate goggles available and Laser warning signs outside of doors___BB___ Eye protection provided to patient and staff in room_BB___ Use of laser retardant drapes and dull blackened instruments as directed__BB___ Use of nonflammable prep solutions and use of saline soaked sponges to protect tissues as indicated _BB___ Laser operated by Dr. Mensah Physician verbal confirmation laser locked in place__BB__ Laser start time (date and time) ___12/14/23 1402 Laser stop time(date and time) ___12/14/23 1408 [place] _8.0___ Treatment Site #1 mid/med calf Average laser use __205 Joules Average laser use___28 seconds Pulse continuous ___BB_? Pulse intermittent ___ Evaluated patient for signs and symptoms of electrical injury __BB___ ? Skin clear at insertion site __BB__ Treatment Site #2 dist/med calf Average laser use __98 Joules Average laser use___16 seconds Pulse continuous ___BB_? Pulse intermittent ___ Evaluated patient for signs and symptoms of electrical injury __BB___ ? Skin clear at insertion site __BB__ Patient tolerated procedure well.? Right leg Coban dressing applied to access site.? Applied Right thigh high leg compression stocking. Will return on 12/28/23 for Right leg limited venous ultrasound and exam. IAugusto MD personally performed the services described in this documentation, as scribed by Danya Holt RVT, RDMS in my presence and it is both accurate and complete. I, Danya Holt RVT, RDMS, am scribing for, and in the presence of, Dr. Augusto Mensah and in the presence of the patient. Procedures Procedure Note Procedure: EVLT of right leg perforators.
[2023-12-14] MEDS: LIDOCAINE HCL 20 ML, SODIUM BICARBONATE 2 MEQ INJ (11:25)
--- NOTE | 2023-12-14 13:00 | VEIN_ITS ---
[address] [address] Patient Name: DAVI MCCULLOUGH MRN: [id number] date: 1980 Sex: M Assigned Patient Location: Current Patient Location: Accession/Order Number: [id number] Exam Date: 12/14/2023 13:00 Report Date: 12/14/2023 14:56 At the request of: ISAÍAS WILLAMS Procedure: VC Endovenous Perf Ablation RT EXAMINATION: VC Endovenous Perf Ablation RT COMPARISON: INDICATIONS: VARICOSE VEINS OF BILATERAL LOWER EXTREMITY WITH PAIN OPERATIVE REPORT: Diagnosis: Superficial venous reflux, incompetent perforating veins Procedure: Endovenous laser ablation of the right cereal supervisor(s) Procedure: The patient was positioned supine on the table and the leg was prepped and draped to allow for visualization during venous access. A sterile cover was draped over a 16 mhz ultrasound probe. Venous mapping was performed prior to the procedure noting location and size of vessel(s). Commission Broker vein 1: Right medial mid calf. The diameter of the vein ranged from 5 mm's below the muscular fascia to 4 mm's at the entry point. Using a 30 gauge needle the entry site was anesthetized with 1 cc of 1% buffered lidocaine. Access was gained percutaneously, with a 21-gauge needle, into the cereal supervisor vein under ultrasound guidance. The needle was advanced into the desired position and the pre-measured 400-micron fiber was then inserted into the needle and locked in place. The position of the fiber was imaged with ultrasound guidance. The fiber tip was visualized to be 30 mm from the deep vessel. An anesthetic solution of 7 cc 1% buffered lidocaine was delivered along the course of the vein under ultrasound guidance using a syringe. A final positioning check of the laser fiber tip was performed. The laser was activated by means of a foot-pedal and the fiber and needle were withdrawn together in accordance to the desired joules per treatment area/spot weld. 5 areas/spot welds were performed, and the total number of joules delivered was 205. The total time of energy delivery was 28 seconds. A duplex ultrasound revealed compressibility and flow of the deep system immediately after the procedure. Hemostasis of the access site was achieved Commission Broker vein 2: Right medial mid to distal calf. The diameter of the vein ranged from 3 mm's below the muscular fascia to 3.5 mm's at the entry point. Using a 30 gauge needle the entry site was anesthetized with 1 cc of 1% buffered lidocaine. Access was gained percutaneously, with a 21-gauge needle, into the cereal supervisor vein under ultrasound guidance. The needle was advanced into the desired position and the pre-measured 400-micron fiber was then inserted into the needle and locked in place. The position of the fiber was imaged with ultrasound guidance. The fiber tip was visualized to be 25 mm from the deep vessel. An anesthetic solution of 6 cc 1% buffered lidocaine was delivered along the course of the vein under ultrasound guidance using a syringe. A final positioning check of the laser fiber tip was performed. The laser was activated by means of a foot-pedal and the fiber and needle were withdrawn together in accordance to the desired joules per treatment area/spot weld. 3 areas/spot welds were performed, and the total number of joules delivered was 98. The total time of energy delivery was 16 seconds. A duplex ultrasound revealed compressibility and flow of the deep system immediately after the procedure. Hemostasis of the access site was achieved and dressed. A 20-30 mm compression stocking over coban was placed on the treated leg. Post-Op instructions were given, and a follow-up appointment was made. CONCLUSION: 1. Technically successful endovenous laser ablation of 2 incompetent right leg cereal supervisor veins Electronically authenticated by: ISAÍAS WILLAMS Date: 12/14/2023 14:56
--- NOTE | 2023-12-14 14:55 | W.VEIN ---
Discharge Plan Discharge Disposition: Home, Self-Care Outpatient Diagnostics: VC Facility EST LMTD (Routine) Timeframe: 2 Weeks Facility: [facility] - Location: [facility] Ordered By: Augusto Mensah VC EXT Venous RT LMTD (Routine) Timeframe: 2 Weeks Facility: [facility] - Location: Vein Center Ordered By: Augusto Mensah Follow Up Appointments: 12/28/23 Plan of Treatment: Right leg limited US and consult with physician Print Language: Occitan Discharge Date/Time: 12/14/23 15:02
== END 2023-12-14 15:02 | disposition home or self-care (01) ==
PROVIDERS: PCP Radiology Diagnostic Radiology; Visit Provider Radiology Diagnostic Radiology
DX: I83.813 Varicose veins of bilateral lower extremities with pain (principal)
CPT/HCPCS: 36478

== ENCOUNTER 2024-01-11 12:53 | Outpatient (OUT) | payer OTHER, SELFPAY ==
--- NOTE | 2024-01-11 09:58 | VEINCLINIC_ITS ---
Vital Signs 01/11/24 13:00 Height 5 ft 11 in Weight 173 kg BMI 53.2 BP 128/75 BP Location Left Brachial BP Position Sitting BP Cuff Size Adult Respiration 18 Pulse 75 Pulse Oximetry (%) 97 Comment The patient's blood pressure is elevated. Varicose Veins Patient in today for follow up ultrasound of right lower extremity following EVLT of right leg perforators completed on 12/14/23. John Monsalve MD personally performed the services described in this documentation, as scribed by Lucia Gupta RDMS in my presence and it is both accurate and complete. Lucia Monsalve RDMS, am scribing for, and in the presence of, Dr. Nahomi Duggan and in the presence of the patient. thigh: bilateral, knee: bilateral, calf: bilateral, ankle: bilateral and [place]: bilateral cramping, dull, sharp and tender 8 4 years Worsened in recent months: Yes standing analgesics (Tylenol), bed rest, elevating extremities and compression stockings Reports muscle spasms of leg, edema, leg edema and other (ulceration) History of lower extremity trauma: No Superficial thrombophlebitis: No Family history of varicose veins: unknown Has patient had previous lower extremity venous surgery: No Patient has previously received the following treatment(s) for lower extremity varicose veins: Reports none Does patient have a history of : not applicable Does patient intend to have future pregnancies: not applicable Has patient had lower extremity venous scan with relux testing: Yes Support hose used: Yes Problems walking or doing physical activity: Yes How does it affect you: Compromised work d/t having to take multiple breaks throughout the day. Do you walk much: Yes Do you stand much: Yes Review of Systems ROS Narrative John Monsalve MD personally performed the services described in this documentation, as scribed by Lucia Gupta RDMS in my presence and it is both accurate and complete. Lucia Monsalve RDMS, am scribing for, and in the presence of, Dr. Nahomi Duggan and in the presence of the patient. Status of ROS 10 or more systems reviewed and unremark able except as noted in history and below Cardiovascular Reports: edema, swelling of feet/ankles and leg pain with exertion Musculoskeletal Reports: extremity pain and extremity swelling Integumentary/Breast Reports: redness, new lesion, non-healing lesion and changes in skin color [facility] Medical History (Updated 12/14/23 @ 15:00 by Lucia Gupta) Phlebitis and thrombophlebitis of superficial vessels of right lower extremity ?I80.01 - Phlebitis and thrombophlebitis of superficial vessels of right lower extremity (ICD-10) Pain due to varicose veins of both lower extremities ?I83.813 - Varicose veins of bilateral lower extremities with pain (ICD-10) Chronic venous hypertension ?I87.309 - Chronic venous hypertension (idiopathic) without complications of unspecified lower extremity (ICD-10) Venous 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 veins ?I83.019 - Varicose veins of right lower extremity with ulcer of unspecified site (ICD-10) ?I83.029 - Varicose veins of left lower extremity with ulcer of unspecified site (ICD-10) ?L97.919 - Non-pressure chronic ulcer of unspecified part of right lower leg with unspecified severity (ICD-10) ?L97.929 - Non-pressure chronic ulcer of unspecified part of left lower leg with unspecified severity (ICD-10) Surgical History (Updated 12/14/23 @ 09:45 by Danya Holt) History of hernia repair ?Z98.890 - Other specified postprocedural states (ICD-10) ?Z87.19 - Personal history of other diseases of the digestive system (ICD-10) History of cholecystectomy ?Z90.49 - Acquired absence of other specified parts of digestive tract (ICD- 10) Family History (Updated 12/14/23 @ 09:46 by Danya Holt) Other Family history not known due to adoption Social History (Updated 12/14/23 @ 09:47 by Danya Holt) Within the past year, how often did you have a drink containing alcohol: monthly or less Smoking status: Never smoker Non-prescribed substance use: denies use Meds Home Medications and Allergies Home Medications ?Medication ?Instructions ?Recorded ?Confirmed ?Type Fabuxostat 12/14/23 History buspirone 5 mg tablet 5 mg PO BID 12/14/23 12/14/23 History calcium phosphate,dibasic 77 tab PO 12/14/23 History mg-vitamin D3 400 unit tablet dulaglutide 0.75 mg/0.5 mL 0.75 mg subcut QWEEK 12/14/23 12/14/23 History subcutaneous pen injector (Trulicity) ferrous sulfate 325 mg (65 mg 325 mg PO DAILY 12/14/23 12/14/23 History iron) tablet (Feosol) losartan 100 mg tablet 100 mg PO DAILY 12/14/23 12/14/23 History melatonin 5 mg capsule mg 12/14/23 History omeprazole 20 mg capsule,delayed 20 mg PO DAILY 12/14/23 12/14/23 History release trazodone 50 mg tablet 25 mg PO DAILY 12/14/23 12/14/23 History Allergies Allergy/AdvReac Type Severity Reaction Status Date / Time bupropion [From Wellbutrin] Allergy Unknown Verified 11/04/23 14:41 Exam Narrative Exam Narrative: Patient is having tenderness along medial aspect of bilateral legs. John Monsalve MD personally performed the services described in this documentation, as scribed by Lucia Gupta RDMS in my presence and it is both accurate and complete. Lucia Monsalve RDMS, am scribing for, and in the presence of, Dr. Nahomi Duggan and in the presence of the patient. Constitutional Documenting provider has reviewed patient's vital signs: yes Common normals: oriented x3 Lymph Lymphatic: no lymphedema noted Cardio Common normals: regular rate Rate: regular rate Peripheral pulses: posterior tibial pulses present and dorsalis pedis pulses present Extremity Common normals: normal capillary refill General: calf tenderness and edema Right lower extremity: upper leg and lower leg Left lower extremity: upper leg and lower leg Neuro Common normals: oriented x3 Results Imaging Venous US: Radiologist's impression: Heat induced thrombus in perforators right lower leg. John Monsalve MD personally performed the services described in this documentation, as scribed by Lucia Gupta RDMS in my presence and it is both accurate and complete. Lucia Monsalve RDMS am scribing for, and in the presence of, Dr. Nahomi Duggan and in the presence of the patient. Assessment and Plan Assessment and Plan (1) Phlebitis and thrombophlebitis of superficial vessels of right lower extremity: Plan Patient to return for Varithena/microfoam of left leg on 01/19/24. I, John Duggan MD personally performed the services described in this documentation, as scribed by Lucia Gupta RDMS in my presence and it is both accurate and complete. I, Lucia Gupta RDMS, am scribing for, and in the presence of, Dr. Nahomi Duggan and in the presence of the patient.
--- NOTE | 2024-01-11 10:02 | W.VEIN ---
Discharge Plan Discharge Disposition: Home, Self-Care Outpatient Diagnostics: VC INJ Foam [facility] (Routine) Timeframe: 2 Weeks Facility: [facility] - Location: [facility] Ordered By: John Duggan Follow Up Appointments: 01/19/24 Plan of Treatment: Varithena/mircofoam of left leg. Print Language: Lithuanian Discharge Date/Time: 01/11/24 14:47
--- NOTE | 2024-01-11 12:55 | VEIN_ITS ---
Patient Name: DAVI MCCULLOUGH MR#: [id number] : 1980 Exam Date: 01/11/2024 Ordering Doctor: DR ISAÍAS WILLAMS M.D. RADIOLOGY REPORT PROCEDURE: VC EXT VENOUS RT LMTD COMPARISON: VC ENDOVENOUS PERF ABLATION RT, 12/14/2023. VC EXT VENOUS RT LMTD, 10/26/2023. INDICATIONS: I80.01 - Phlebitis and thrombophlebitis of superficial veins right leg TECHNIQUE: Lower extremity ordaz scale and Duplex Doppler evaluation of the deep venous system from the inguinal ligament through the calf veins. FINDINGS: REGION: Right lower extremity. THROMBI: Negative for DVT. Heat induced thrombus in label pinker mid lower leg. COMPRESSIBILITY: Non-compressible segments corresponding to thrombus FLOW: Areas of no flow corresponding to thrombus OTHER: CONCLUSION: 1. Successful post ablation occlusion of left leg treated label pinker veins. Dictated by: John Duggan M.D. on 01/11/2024 at 13:25 Approved by: John Duggan M.D. on 01/11/2024 at 13:39
--- NOTE | 2024-01-11 12:55 | VEIN_ITS ---
Patient Name: DAVI MCCULLOUGH MR#: [id number] : 1980 Exam Date: 01/11/2024 Ordering Doctor: DR ISAÍAS WILLAMS M.D. RADIOLOGY REPORT PROCEDURE: [facility] EST [facility] - OFFICE VISIT FOLLOW UP COMPARISON: [facility], 11/17/2023. PROGRESS NOTES: The patient reports improvement in leg symptoms. There has been interval reduction in varicosities. The patient has followed our recommendations to walk 20-30 minutes once or twice per day since the procedure. Physical exam demonstrates decrease in varicosities of the leg. Persistent small superficial varicosities are identified along the legs bilaterally. Review of the ultrasound performed the same day demonstrates occlusive thrombus extending throughout the treated vein(s), see separate report, consistent with a successful ablation. No thrombus extending into or beyond the saphenofemoral junction. The patient expressed a desire to proceed with treatment of remaining incompetent branch saphenous varicosities. The patient was informed that treatment was a process and would require 1-2 procedures/sessions. [facility] 1. Successful ablation of the left leg treated reheater vein(s). 2. Persistent superficial varicose veins and mild lower extremity symptoms. PLAN: Microfoam chemical ablation of remaining incompetent branch saphenous varicosities bilaterally. Nurse notes, history and physical were reviewed and confirmed, see attached forms. The nurse was present throughout the physical exam and consultation Dictated by: John Duggan M.D. on 01/11/2024 at 13:44 Approved by: John Duggan M.D. on 01/11/2024 at 13:45
--- OUTSIDE RECORDS SUMMARY | 2024-01-11 12:57 | XMS_ITS | CCD ---
Author Organization [facility] Care Team Providers Care Global Recruiter Name Role Phone Antoine Alcazar Unavailable [phone] SAM CROW Attending Unavailable Kastor HEAD OF DESIGN VOCATIONAL COORDINATOR-C, Mary Harris Admitting Unavai lable Kastor HEAD OF DESIGN VOCATIONAL COORDINATOR-C, Mary Harris Attending Iraidai liane Kastor HEAD OF DESIGN VOCATIONAL COORDINATOR-C, Mary C Primary Care KAMI Moon Attending Unavailable KAMI Hummel Admitting Unavailable Kastor HEAD OF DESIGN VOCATIONAL COORDINATOR-C, Mary Harris Primary Care UnavaJhonny Morrow Attending Unavailable Jhonny Hernandez Admitting Unavailable Kastor HEAD OF DESIGN VOCATIONAL COORDINATOR-C, Mary C Primary Care Reno Soares Admitting Unavaila Reno Carias Attending Unavaila ble Provider, None Primary Care Unavailable KAMI Hummel Attending Unavailable KAMI Hummel Admitting Unavailable Kastor HEAD OF DESIGN VOCATIONAL COORDINATOR-C, Mary Harris Primary Care KAMI Moon Attending Unavailable KAMI Hummel Admitting Unavailable Kastor HEAD OF DESIGN VOCATIONAL COORDINATOR-C, Mary C Primary Care KAMI Moon Admitting Unavailable Kastor HEAD OF DESIGN VOCATIONAL COORDINATOR-C, Mary C Primary Care KAMI Moon Attending Unavailable KAMI Hummel Attending Unavailable KAMI Hummel Admitting Unavailable Kastor HEAD OF DESIGN VOCATIONAL COORDINATOR-C, Mary C Primary Care Unavai labKareem Sims Admitting Unavailable Kareem Sanchez Attending Unavailable Provider, None Primary Care Unavailable Provider, Unlisted Primary Care Unavailable Marika Tavares CNP Admitting Marika Carroll CNP Attending KAMI Geller Admitting Unavailable KAMI Hummel Attending Unavailable Carlos DE DIOSP-C, Mary Steven Primary Care KAMI Moon Attending Unavailable KAMI Hummel Admitting [facility]available [facility] TIFF[facility] DE DIOSP-C, Mary Steven Primary Care KAMI Moon Admitting Unavailable Kastor TIFFANY DE DIOSP-C, Mary C Primary Care KAMI Moon Attending Unavailable Rashid Rojas Attending Unavailab Rashid Solomon Admitting Unavailab kiarra ROBERT FAMILY, PHYSICIAN Primary Care Unavailable Allergies Allergy Classification Reported Allergen(s) Allergy Type Date of Onset Reaction(s) Facility (6 sources) buPROPion; Translations: [BUPROPION HCL] Drug Allergy 10-25-2016 [facility] (1 source) buPROPion; Translations: [Wellbutrin] Drug Allergy [facility] Repository (1 source) buPROPion Drug Allergy 02-01-2019 [facility] Repository Medications Completed/Discontinued Medications Medication Drug Class(es) [...] mL pen injector famotidine/Ca carb/mag hydrox (ACID ENVIRONMENTAL FIELD SERVICES TECHNICIAN COMPLETE, FAMOT, ORAL) (5 sources) take 1 tablet by mouth twice daily famotidine/Ca carb/mag hydrox (ACID ENVIRONMENTAL FIELD SERVICES TECHNICIAN COMPLETE, FAMOT, ORAL) Take 1 tablet by [...] on above: Take 10 mg by mouth. fj-esi-tcbkz acid-lutein (CENTRUM SILVER) 400-250 mcg chew (5 sources) take 1 tablet by mouth once daily xo-gua-xhvzt acid-lutein (CENTRUM SILVER) 400-250 mcg chew Take [...] on above: Take 1,000 mcg by mo [facility] once daily. Problems Active Problems Problem Classification [...] Coding Summaryon 09-27-2023 Coding Summary HTMLBase 64 NcbgdykbCFz1dGx+PGhlYWQ +BU5NJPGnE46dgMYpaY6fP9 NMTElOSywgQVBQTElOSyIgb aDdZD5ovHCdBNWy IC8+BV7hKZPdJguztZMha9P 1pZE2J78ihc7cWMpwbKZ8MO OdJjVnxrioz0jsqNp4DDujR mluOyBt GSWjxZ61GAE6sW36Io67zBB xzCQto1cbvJv7YlRrYAIhBN R9nPzvPEnfr0UsPOAmQ85vt PIve8I8 MKIbkVdeeEJlPiSigGR8fF7 fTXyxsqqmq1qmeuaaYsd6ju 14pVIus1W8ePA6Z3KbtlI6P GJvbGQg YefteIORmL0jrinba8wtavv cMmIgCMDjZVs8YXl0LMSpwJ smOlUyLJ27QAZ3VHEbdlHkX 2FsLWFs eDqhIxW4r5W9Cq4UB5OGSsu nX6MYMBRMTOuxuEI+PC90cj 90J5PaMlwhYtf4ODYcSQN7g YX3qX7u ZWNfQUqar8Y5gVU6N0CewtI ijm4kg4niLHLrIZitS53tmL Psu1M6KSNpyEI9IDTbaJtwO iBzaG93 Oyc+BDLaqYszp5LzAlbmn4n hq3gtvQu2XycjFLQflnStnC cdBQF8r1CbIx8iEORyaZP2d SF8jG3b VmZjBuT7KSenR903XcYoxKB tYzrjE90pX4ArpOW+PHRyPj n4IDPckVtqXR4iV0UpIIXtq mctbGVm xQmuKQ9dWGDmirxoRBUjoS1 zZDLpN1s4DzZoNyU1FYilL1 YmNVZuueqbJh96yF9yWjOxR fM4CQif O1AdlfC2FPKmlSAzYJjmPQI 9G08cd5V4CFQeCQDeNVG5yV Z5vF1naRjlbhgkyDZegPopd mVydGlj PYeyTMfqS778NGTzmPjhSnQ vZGluZyBEYXRlOiAgMDQvMj MvMjAyNDwvdGQ+RRLrDVO7f WxlPSAn dYAqSGkoWa2jaIcrpKzyYN5 bRBBlmcouKHGgyQ0yKWPbbI OmmKyeUA4gDYQkuojxd779Y iAxMHB0 QPGdcCAqE6KulN5jHuTxMDL wKSPuK2TxsTLdSDeqX088BZ geAxD5EOToskYdN9NiWGVkt WduOiB0 d4E0Na7Pi6RvyeutX1OxgHI eSwKrBjqiSPw1A0JpGqdxaX I+JT01CLRlZQ93DOo6SZD4l WxlPSdi RPZvQ3WejD9jFbZnKWJlEGR kOyc+PHRhYmxlIHdpZHRoPS amBXPeCyIlrPvtGO1zUh5wV GVyLWNv lMxijKUaQiRat0jdVOMbKKn vJU2emYuyO8WuyIO5DOAnh7 e7Jf03B38lR7YloUH+PGNvb CC0yLG1 lG7jJbLaMsG8VEaxO246AzS azIVhVolhj6glo9oxiFj0Rs A2ZOFasbKlhKtiWBI4p0OvF u45Y68c IHdpZHRoPSIxNSUiIHZhbGl qld7cqY2cEc4+OAJbhYD3wL E9sE9mZlFrDvQ2MYozS902X nRvcCIv Bjjao1cle1zbiOp3BhTuNME lunNynUvrIVO4j1HtOp69L4 YjdUvon4YxXub7wz92sTOkv 2V4uQC4 R1RjRFPwzojuxICtqRozLQ4 bJBKwzbvhMGUqqG9iEQVlT5 b4NgZtMaC3ATbiW8CpesZ6F GJvbGQg QKYeqBFVcG4ggippz9xgauu wTaLwMXWaMKc1IRf7MDVcgM viYzQeXFN0HkK2NYG3bCChp R7bdDhq zhvdlY4zUkl+FVZ4dPSawYF QDS4oKinotQV+ITQfHQR6vT uaHYvzTFLbuY7pVKXbU8a3F iAwLjA1 JWtwL3NtqyU4LTNnrFOfPWI avEYChW0cmxlzo8xnscqxMk TjLAZpPCq1YCb7OXMdwQbyS iBsZWZ0 NqB8OFX0jANxrH7phOlhqrg wpN6qTtx+SuxlwXniFXK8XZ b9C0XkWte9WHSoxJshEE3rv GFkZGlu Fj5zzUugaPjwMD6oGUVsgkb cw514InVqt7bzUPGusHXvIO bgKDF2D80xg8V6RAOgMVBxQ ET3lCP3 hP0seRbvtaddtVBvdAxjhbT jvEfuLMdiYIniX884EPPdaH wpHrYfDBp1U4OeBen9NZHne BhwHO2d dHGsPHqyIo8qmZhesDdmGB2 kPHJrqvnzx813OcXgi8iiFC BvxHTdVQmkGDF1I24px9X4M CMwMDAw HWK4jMK4fE8rwEbktjfteAN mdDsgdmVydGljYWwtYWxpZ2 87DUOxyHwpIwKeyJa3V4DxI pl2VNZm nBdmCK0mtNNkPAwbMn1evXz riMtnLN9hCUAojuifs750Td Swj6rwQZOoxZDrKLrcVVA8N 75er8W7 XVIyBNJvHAV2wMQ5iI6pmIn nbjogbGVmdDsgdmVydGljYW cgXBhzX793NEQfkEolKyVxe GllbnQg WVegZDy3K0JzOjvomBT+PC9 2AVLcQL76jQPpuNAmn6jecZ h8NoMrQQLiPWQ5rHcgMIjnt 3JkZXIt X04bxDEqv0Q2VJNigVvwmLH fBdZaoJC5hI6nXTugzpczt6 iwezdcVnwmm6hxjb53rN93R 29sIHdp ZHRoPSIzMCUiIHZhbGlnbj0 wvH7vEt2+WXHhzRA1oKJ6yX 9cUPCbTnZ3QIxoX173ErIre CIvPjxj i7ees3qsdRx9RzM7MFZxluG sxBzzLWO9e4RtUc33C01jAV dpZHRoPSIyMCUiIHZhbGlnb i4vqZ9a Ii8+TICtoTN9kBV2mS8tRmM sQzX3ADlxP636VtAtrSGaTd pjA12jZ0DmwKK+RIGgIcc7T CBzdHls ZZ9uuKAsFFdmRy7lUQF4YyM dLzLaHJatK4JoBSNdihahhp fyyDD0GWNoFOAniR47Eg3ul DogMTBw hCBKdU9abchij6hvlaktIwZ hEFGcCRs5LPc9VJDmlMhiNv InNBH1ZhU8OHZ2rGCoyG9tq Glnbjog nO8lI0KtSHWhzbcsOh21gG2 gGxGkXlC0EHiuGso+U0FNUy wgQUxFWEFOREVSIExFRTwvd GQ+PHRk EXQ7eWgoKNwwQFJzdJ6rKAM bI4e7YoWyJgO6EKupY8LhLN GwxmjmRx87yY1sBvEeEsH1P VohN4Bg doQ2ATZshMRnOYobTHY3U28 fx8I0CCEmMTMwLBZ5lOX7nB 1hbGlnbjogbGVmdDsgdmVyd GljYWwt WIxtC510PAYnbLaxNjFwJlU 1AtF7Ryr8D2SxCya4OFQleR ojTF6zxZRoFCcnIi0cgLocm VezZA7p YRFiegddVYEczB8kXCYfjRK anLijVI7dMBVnarkki062Zj UvQVI8JTYllRDuQ8IqzC6sI iAjMDAw GMSpK3QyyKIhZUpjD079LGk zRyO4QCJhmtTwB3KrJLNegP dhQaK3v0X2Ug96ZNUABCVay zwvdGQ+ KTTpUIW5zXccELtiRMCejJ2 vXKAdC2d1RtFaBmX8AGvxK2 DmYVAjxbzdVe42dP0hFzBjV lX2LRwm N4YvayT0WMWrbRBbPDvfGNX 8U89lc5F9BXWsTCCmGKA2pI H5sZ6mrFkvdfpbeWFsbIeqg mVydGlj RIxnTLgoY581UJNpjXkuRn6 EDLG9H9MmPsj5MWHsrLcsUE 1lnVDaIEdlIh2dnCynlBouH V3nYSWs stogFQDiaC4xLNDkeNMriDj gUI6pFVBiqccxu887CbDqLT J7VMGzwYPsW1KeyY1fKhSrW DAwMDAw N3HapESjPZezR115AAosEbB 4CAVnjcNpJ5AhCMVzxAblUa K3k0R4Us6ESXcbrDQ+PC90c m09H8En LokyIlt4QRWoBLU4jRB2kM1 zYHCiRSnyr5Z9uIR8B8Qxqr Woiu1sh7ktPUYuYDuuU56uy AQzq4Z1 WMLbrEJ1PGAztHcsGpAqpK7 3Oyc+XODzwCnjj6GvFqflx9 yla3kdzIx6XrQgFHSdjkZhc WduPSJ0 j4MsZv51H37zEXntWGOdCDT xABSfWIOpqWfpoy7vjP0iFm 8+UDDlsEB0zNT9xB7mQzIgM nY6WBvh C336GbZprSMhEqlbw8irq9b axUw8FkPeGOCrjgFleYuoNO Q4p4DwQi66U8BjbXbzj1EsO os3ly27 nQKuc4V6cHD0C9QcZTPayrf uiLNfdGveRH3rNORdzjrcOI PccQ8kKENaL0m6LeRpWqY0M NmoS3Os ecK4DIEnfWMbJQWxkXUPlH1 eejckr5fjyljcQtTmMJKeXG b2TOl3UUMeqZnkNrHwOXF5L gJ7JPK0 qLKllY4dwKlnzgefyI7cIrw +QFy0f9qgwYLnMO7orEF9ND 64CW49tOQij2M6vUO7W0PdG GRpbmct bygnmRX5QPNdSBBnrV31Lg9 gkRivCg3fZUHdAOT4SHGjpI OlR1OvrR2pUkByRYHlYSAcA 3RleHQt ZDpgH765PBpnHpR5BXDxtjN tZ7WvEAObpFcxQrN2h9K9Aj 7GQQ71AD03QZ09sCTxa1O5d RP9J2Ns NTZxiixlcfkgiOQ5CTBzNFL fgA81Hq7zeVwoYy8sYBFzUI S6RYHucMIvE8OpsK7vZzGfI DAwMDAw L9XexCSdUPopY542APlyKeX 2HXXojxDgC4WmRTGcyMaxUr A0j4X7Jb4YDd45JH28GD61h RNgo9L7 gFL8E6RhTXZfwxbtgdnhkXS 1XKOlCUQlqY77Dn6ngZlvFc 4mLPDiIKC0QSFogUFtT8Tfl Y4oCnJs PZDnNVRjF7XclFUbOZltM74 6FTuuIqD4PSHmgoFpG7XqLL AydUlwZuR5d0K3Nq5KQQsiq lh1C4Mv PjwvdHI+EX75BNTbOP59sJB ahCExr4iivGf4ZdIzXJBrHP Y1sQerVJgio2OmGQOmQ48fx KOnb6D8 IGN (more content not included)... Normal [facility] ED Clinical Summaryon 2023 ED Clinical Summary [facility] ? Urgent Care [address] [place] [address] Clinical Summary PERSON INFORMATION Name: SPIKE NIELSEN Age: 43 Years Sex: MALE : 1980 MRN: Acct#: Visit Reason: Sinus Pain/Congestion; Body aches; SINUS PRESSURE/DRIANAGE, BODY ACHES, ABD PAIN, CONGESTION Arrival: 09/14/2023 11:11:56 Discharge: 09/14/2023 11:45:00 LOS: 000 00:34 Check In: 09/14/2023 11:11:56 Checkout: 09/14/2023 11:45:00 Address: [address] [facility] [address] PCP: Mary Perla APRN PROVIDER INFORMATION Provider Role Assigned Unassigned Mariak Oliva BOTTLE INSPECTOR Nurse 09/14/2023 11:13:30 Brennen FerroC ED PA 09/14/2023 11:29:53 VITALS INFORMATION Vital Sign Triage Latest Temperature Tympanic Temperature Temporal Artery Pulse Rate O2 Sat 94 % 94 % Respiratory Rate Blood Pressure /72 mmHg /72 mmHg MEDICAL INFORMATION Medications Given: Allergy Information: Wellbutrin PHYSICIAN DOCUMENTATION DISCHARGE INFORMATION: Discharge Disposition: Home Discharge Location: Home PATIENT EDUCATION INFORMATION Instructions: Influenza, Adult, Hqig-qz-Xwch Follow-Up: With: Address: When: [place] [address] [facility] (1) Within 5 to 7 days DIAGNOSIS: Influenza A Patient Understands: Yes - Patient/family/caregive r verbalizes understanding of instructions given Comment: Normal [facility] ED Patient Summaryon 024 ED Patient Summary [facility] ? Urgent Care [address] [id number] PATIENT DISCHARGE INSTRUCTIONS Patient Information Name: SPIKE NIELSEN Age: 43 Years Date of : 1980 Reason For Visit: Sinus Pain/Congestion; Body aches; SINUS PRESSURE/DRIANAGE, BODY ACHES, ABD PAIN, CONGESTION Arrival Time: 09/14/2023 11:11:56 Primary Care Physician: Mary Perla APRN Attending Physician: Cassidy Hummel PA-C Comment: Patient Education With: Address: When: Mary Gonzalez [address] [place] [id number] [facility] (1) Within 5 to 7 [...] doctor may want you to: ? Take xgio-nkc-yyigswe medicines. ? Drink plenty of fluids. The [...] Applesauce. ? Rice. ? Lean meats. ? [place]. ? Crackers. ? Do not eat or drink: ? Fluids that have a lot of sugar or caffeine. ? Alcohol. ? Spicy or fatty foods. General instructions ? Take mxhe-kfw-mvlocoy and prescription medicines only as told by [...] use soap and water, use alcohol-based hand parking lot supervisor. ? Keep all follow-up visits. How is [...] have mo (more content not included)... Normal [facility] POCT Rapid CoV-2 (COVID-19) Antigen/ Flu A&Bon 09-14-2023 Influenza A POCT Positive Abnormal Negative [facility] Comment on above: Performed By: #### [id number] ####[facility] (DEFAULT)[address] [place] [address] Influenza B POCT Negative Normal Negative [facility] Comment on above: Performed By: #### [id number] ####[facility] (DEFAULT)[address] [place] [address] SARS-CoV-2 (COVID-19) RNA IZABELLA+probe Ql (Unsp spec) Not detected Normal [facility] Comment on above: Performed By: #### [id number] ####[facility] (DEFAULT)[address] [place] [address] Urgent Care Note- Provideron 09-14-2023 Urgent Care [...] 1-2 times per year Other Comment: POB: [place] - 02/26/2019 15:28 - Carmen Jama Substance [...] needed. Impression and Plan Diagnosis Influenza A (AXL84-IM J10.1, Discharge, Medical) Plan Condition: Stable. Disposition: Discharged: Time 09/14/2023 11:52:00, to home. Prescriptions: Launch prescriptions Pharm (more content not included)... Normal [facility] Recordon 024 Urgent Care Record [facility] ? Urgent Care [address] [place] [address] PATIENT DISCHARGE INSTRUCTIONS Patient Information Name: SPIKE NIELSEN Age: 43 Years Date of : 1980 Reason For Visit: Sinus Pain/Congestion; Body aches; SINUS PRESSURE/DRIANAGE, BODY ACHES, ABD PAIN, CONGESTION Arrival Time: 09/14/2023 11:11:56 Primary Care Physician: Mary Perla APRN Attending Physician: Cassidy Hummel PA-C Comment: Visit Diagnosis: Diagnoses This Visit Body aches ([id number]) Influenza A (J10.1) Sinus Pain/Congestion ([id number]) If you received any narcotics, sedation, or [...] legal documents With: Address: When: Mary Gonzalez [address] [place], [place] [id number] Business (1) Within 5 to 7 days Medication Information: The exam and treatment you received today in the [facility] were for an urgent problem and are not intended as complete care. It is important for you to follow up with a doctor, nurse practitioner, or physician?s admin assistant for ongoing care. If your symptoms [...] so we can reach you if necessary. [facility] has provided you with a complete list of medications post discharge. Please inform your audio/video technician/provider of your visit and for further instruction on these medications. Any specific questions regarding your chronic medications and dosages should be discussed with your primary care physician(s) and/or pharmacist. New Medications [facility] [address], [place] [id number], [phone] benzonatate (benzonatate 200 mg oral capsule) 1 [...] kg Body M (more content not included)... [facility] Coding Summaryon 08-24-2023 Coding Summary HTMLBase 64 LcvrxghjZIu1pCw+PGhlYWQ +ZV4KWQNqS62gmEOvqA5tU5 NMTElOSywgQVBQTElOSyIgb vMkKV2olKVaVTOi IC8+EU9kQVBjElauzTXec0R 4qZF5Q77rlg6vPWghyJC1TQ AiUeClyutud7qkhVn3UFcxT mluOyBt SLGzmC66MAG9zH05Uq23eDS sfEGwc7vghHw5RpExGSPzJL B3cSjfCSagj9GtIUTrG68ev VPxd6V8 ALAswMgxdXGbTkJlzIQ0jX9 uCLrbkgqww9tyygypDtv7jh 84tKBpk8J4bVA9V9NfjbI1O GJvbGQg HceuoTAPyB4innyte6tcbvt cEyViMXJiFYy7FXj4PLQthC toQdRhLL71BQV3XTXrxjMcH 2FsLWFs rGfrKkT5m1T9Tq2DY2VGPxa pY1XAUIDLLFubwGW+PC90cj 96G4VsStjuLic4ICFiOFA6r BA8oI1y NYOaMTdkn7O0nXG3N9IlxyY pbf6au3bjCFGnMRocI21ciN Pbz7T3DRFirJV5NLYfaRhjP iBzaG93 Oyc+WKGoyAjtx8XeUicyh0s kb8jblCk9JusgWLCcsrIfiR ylXWG7t5OySv7yBSHuwZV1b ED0nQ5v AgRvUkL6VXqmO521ObTefVV bJvqgQ83yY5RyrAI+PHRyPj v6GCHwnEhsFF7pV3LaVUZqe mctbGVm lKfxQC2hVJHmawsbDZVjhJ7 cZCBgO2g1MyKfEhW2FDoqW5 ZwOXDttbuoUu64qQ2hZcPpD jA6PAfj V3UxylR0ZFRzmPJyTIulIMJ 0W54zh8U5TYGuSZDbGJZ0tK E0sE7nsHfiishmwAJniSfhu mVydGlj SPxdHVwuT048JPPrfTsuGaU vZGluZyBEYXRlOiAgMDMvMj AvMjAyNDwvdGQ+UPWfFCD8u WxlPSAn tIBkQUmjNh0yfSlqtQokTY2 vHBRrtfxlNCLvoB5sASHieP GpzNztCK9xNDHmfkmry855G iAxMHB0 KXHkwWExE4EkdN6wBhXaDYM kOPXeD6ZyqCNdICywF230KT tdQrL8QTUyldOcQ7LxJYTzq WduOiB0 i1D7On4Td0BmyhyiZ0IlhSV hFjOuNownJWd3V2FdQqhopV I+XL50LASpHZ44PKj7WAS4h WxlPSdi YAJdB1PvoA7rSfBjLTGmBCP kOyc+PHRhYmxlIHdpZHRoPS pzMRSsJeQhqSvqJB5cRw0rJ GVyLWNv eIuvtEBbLgQoz9tqNCHqBGr sEB0tbWtuE0DjsGO4JSVqg8 w5Po71W02fM4ItuRS+PGNvb CR2hOY8 aD0yZhXqUoE8GExbE804AjA qoQDkLzlxj4lyn1bwnRo1Jo Q8MIRwknErpDfpDWD7z7GrV l16Y40y IHdpZHRoPSIxNSUiIHZhbGl vry8obQ6kGz4+LTTdoPJ3aD J4dY0hAtAnQnI9WIsqK103T nRvcCIv Bdejp9hdz4ykoTa2EkHkTTF olqQjfLogFHG7b6JwCe75C3 IknXvdn2WbJqu7gb17iYVxx 3I1iLN3 P9BnEPWycivszQGqxBduIX9 wLUPjqdqdHLJcbO4bMJLuS2 d4XdVeTzK5LXrdP6DcemQ8T GJvbGQg MZRfdMNUoD5qailem5rlwdw wNtQuXSGyQWq9JMy7RETcvK sdXzUqTZP0YmY2DGK2rUJww I1reShl rvxrlG0sUfg+NPP3lRGsaID NAR8iUutydXB+YNTaTHI8nB ppSIdsCXQzwF4rEPVyT1c0L iAwLjA1 IYjrH4SfsjX2SDQseOSePZD beGXCqH8zlfkql0ofyybbRw EvDWOfMUr9RPu6MYKynFobF iBsZWZ0 GdN2OYY7vSOxeI1cdRxpmvv pnJ4tYgc+WaejmBuoOYB4GS l8S0HcFrx8YEJxvDmrGG8yv GFkZGlu Sr5mqUrwkBrwJU0rRWXblxc tm034ArYed7vtTJOowZEcMS akCCV2S98ym2S7MYWsIVTkJ IH9wHY2 xI9ijIbkxfqwwIPitWtpkbL lyMynVJrzTSsoF347ZFUzsP joShLxISx5X6TlSeq1XWLqt VmpVP2v uBAxAYayHh9fyWowbXugZT2 fLHQwkkvwt193IgPad2veFT DllVIqHKlhGEZ8T10aj4A7T CMwMDAw SQZ8sOF8mT3kjXvftrkzwPK mdDsgdmVydGljYWwtYWxpZ2 77WOZskAwoTqEtaCb5V2NrL xe7ZLOy sBvfSD8kdXDyBBdzCz2ofAr eqIizUK5fABOvlvnom204Lg Ksn9lyCHGtgYGeRGrpVGP3Q 18qj7C5 RXYySVRnOFX9ePP3gZ6hxTb nbjogbGVmdDsgdmVydGljYW noXOfnW223EAJttUlcUjJlo GllbnQg BJepMBw3Y7DvDpetcNY+PC9 7CTMpKW61kDTzvZBia4vmoN c7UoDrGNRgMAL1yDgmPOlrx 3JkZXIt R59eyOFkd2U5JYCplEjryBR hPdZmpAP6aM8eALojfnojv0 hplzfoIixxy2elmm70kU07Q 29sIHdp ZHRoPSIzMCUiIHZhbGlnbj0 mmK3qVz8+SRJnkBK9vMQ9zK 1vSXIhReN9DTfxZ810WpMvl CIvPjxj o1exu1xrvBm3OxO2ZPQnskJ jdTjuGLJ7y8IiNu57P09eWF dpZHRoPSIyMCUiIHZhbGlnb t6wtP7v Ii8+EJMskQH4gPU8nK7cGrE yYtO4IKamO256GwKdtDFkTq plF66uI2RxqPE+QKNsGry1G CBzdHls IN3czSHyJHjvSl2zRSK6ToR rNtTkJSjjI7MtJXZwklmvhk fuuKU5KPPqXPDlgT26Ui4fo DogMTBw fIHEgB0pimnqx9osiwckZfZ fZVKvWBf2OVx4DTDtrYgdHw EfAZU2CuS3LCH2tLBuhF7hp Glnbjog cV6eR5EwVFQqsbioTf83xW6 cNrPjEkH5LDihVrr+U0FNUy wgQUxFWEFOREVSIExFRTwvd GQ+PHRk REN9eNpwWVshYJCgeX1yRHJ uY9g4LdRfLmU5PXvpM1RpCV WwlyyaCj96bK4qAdTzGfA7D JncC7Gl skZ8KZRrnXBcRYypCEE4G61 bn2F5AFZvBSSbITB7kFE3uV 1hbGlnbjogbGVmdDsgdmVyd GljYWwt KWfhT114XLLewTgdWuOfWuN 0UgN7Iga3B9HlRyj9QXFnuL exIH2inLQcQLicIx1suXfed KjyLX9b PRJingsrJKEllX8eLLYnoFS qfRveXY3uQRSqdymgc417Nd YtQSW1WKAlxTNvF7OpkQ4jC iAjMDAw UBWeO4NpzDYhFApfT648FOh iYvM3KXKvckGdB5QvZYIypE egCaY2k9V7Ya80ZCHORDJkd zwvdGQ+ GGHlZCL5hQweUZncUOSbeV4 zUIPmD9u5PhQdKwL3QHzxZ0 ZjDRChkwrmCa22lU4aBuMeS xF1POzq Y5TpzkF0IMNqnDZfELksIBZ 0B22kx2L6XYZeZOZtTJP8bS J9wK0ebFcwwbmbvRBdmLkof mVydGlj GJouIKqdU712SUXvvRsdLm0 SZHJ3W6WpQbe3HBHxzKamOO 2saGIaFGlnCr5mrArinHhjQ N9tJQWj njvfDHKtdU5pYGEmvNOrvIk eXD8jLKRhrpmix790OsLzDP R8ZNGetFCtA2PnaV3gRsWkX DAwMDAw E9SzsATgSQcdM997LEnwLzN 2WFXqjaOwV8GzCOZiuGbfXa Q7q7O7Iu6SUQlajCV+PC90c q77S9Ng UlfhGua4FAPgDIZ4eXX7bE3 nREDkIYhpj8P1kAX8L5Ejga Dljy9eg1xrAKHoVJwkB64vw QFdo0Z0 ROYpcLI6ZCQasGcjCyAfrI0 3Oyc+HDGkaCapi4WnMgrcm9 gze0aewOv3GzWjQJJtrtAgm WduPSJ0 p1NeAw15Y79tYHmtLPGlXXC aRYImWZIizUfdit7rmW6xNk 8+DYWzfIQ5bNS5sF3aQwDzL vT0EIpa L953XaLeeDHeAjgfm8rcu0d mdHp5SrJjECVanzZelFeiAS F3x4BhDv39X9UpwOpez4FaZ ax9os72 iZAsi3X2aTJ0E1UpUGVkdqj aoTUdjHclDT2gCPHfhwsgAA GuyI6xOVSsC9d7SaCiOtT2C ZknS7Yp itE9DLPskHFkMWWkdQYQwR9 oxntrg1cunzuaTnRqCDPcVV i7ANx1CUDabDliVmAlWLX4Q vV5WKD8 tKXczA3yeWjdwryvvR1cLbq +GSy8f4apuZSdQA9zsUL5TO 58HE70xJZgw4S3gNA7D9EjB GRpbmct sxfjwXX3HMDePTLrhC91Mo6 xqLcvYf5fAGEnNKF9ILKoeJ LrO3FdaQ3nRlHoMDSgHCKtS 3RleHQt VXszA616RLgsGwL4AGTulgC pV2OpTNLroAziQfH6y9H0Ln 2OVX53QW31GX08pNPut4U3n IT7Y5Hp IOWmyxpaobndwET7UYSuLOU yhF13Me1waQvyEv5cPVNkHL G1JAVfkTLgS8TjcD0cEzSvF DAwMDAw R3JgvEKqFZwlA776INxfMuE 2RAXdubJjU6WxLWLcmKqhRz Y4x8D2Dv7AFv75GW64ZO84d VApa6A5 hJI7C7CkFMSfhifedzxyrYS 4GAYhUBLciM95Xd6zkSmxPw 9kOIYqTUF6XOEppSUaR9Xnc B5hGwJn LFQjRTEwM3XxwGUvIYaaC58 5EZpsGcS8WBHyoqOgV0YtMO KchZvqXwS3s7K8Rs5VIUtyt ls9U5Qn PjwvdHI+EA70RJInMD61pVC clWGfx4vhuSm8XmDjXLJcOK J6qXxnLFyxi4NzPGMqP91ci GQqb6U9 IGN (more content not included)... [facility] Testosterone, Serum LCon Testosterone, Serum LC 404 ng/dL Invalid Interpretation Code 264-916 [facility] Comment on above: Result Comment: Adul t male reference interval is based on a population of healthy nonobese males (BMI <30) between 19 and 39 years old. Kaitlin et.al. JCEM 2017,102;9607-5056. PMID: 23241076. Performed At: [facility] [id number] Danish Sebastian PhD Ph:[phone] Performed By: #### 1 [id number] #### [facility] (DEFAULT) [address] [place] [address] Provider Orderson 08-18-2023 Provider Orders [id number] TGTIFF [facility] Coding Summaryon 08-10-2023 Coding Summary HTMLBase 64 KnrerhckVSa5hMe+PGhlYWQ +EI7RCKBoP40hiZJkrX1iN6 NMTElOSywgQVBQTElOSyIgb tDrAO9vjYAhXPMt IC8+BF2xFMUkWmapdWMfd0L 5gCK4X82iqb8gGOdzbRL1AQ ZcYsXvoxthv9czpNu8LSdfU mluOyBt RCYgdI10YQO7xY11Qa97wKL eiIQwb9lzdZp2BsWxSNUmSB J2zCbnTEcug3FjRHGlV46wn NNoc7W9 NJTndAqexRNmRlMfzCK4sS0 xJOfynlfsf1vkmzszVfk7do 74gPMln4M3bRX6O1IybsO8T GJvbGQg NgjmxHTYbX8qgddpx2mhhpi uWfRtDSMaGVa1HZq9YTYneF mdFxJvJJ07DSQ0VXKqszRwB 2FsLWFs oHdxHnI7p2K2Ik7VC6LQSms rE3ZHTTRHXGzdlAB+PC90cj 66J2TvYltrCfw6FUEuDNM1i ZZ5rV1r EIHpNSgmw4G1hDF4E5GonyM ptb7zs7eaQGEjNRfmH30jlN Yiv3Z6SHRroWZ8VPSqfAsrV iBzaG93 Oyc+CVIfvQbdk9EpQwbwf7e gb6olvPl8HfjrNMEosvCeiZ qdASZ8d4IhJd4lHURjeDE6v XR3vB7l ZyMqHaS6MWomS880NpQzbML xZiaxG02oX7GosLP+PHRyPj b8VSMjbGyvJI9lF7GmPVIlr mctbGVm wIfoWS7wMWJoeiagCNHeuP0 qHOMhW0v2QkDyRtM5PLckC9 AcMIRshwbrEd61eX8zNtMqO zO3WHda F6YqzlF4JTQqcJRaUDlaBQT 7Q67nk9N6EJOdMYFeXDV5uB I8rP6maVfoaerlnCHnhKnoq mVydGlj MMcgWRulL576EOMvpKotHgM vZGluZyBEYXRlOiAgMDMvMD YvMjAyNDwvdGQ+ZPUjEWV9z WxlPSAn zEBtEXebVl9mlNywcFijQX4 bBPJnsovaLVAfrE6pEIVlqV XkwPbgWK4zMSTyvwbrj184Z iAxMHB0 YXUgdRQuA1JmcO0nKuUzUMJ pRMBuO2EvzCInAHviA217KL xuTwT5ZONnoaHvQ1DqJRWcz WduOiB0 l7N1Wf5Hu0YucqlhL0DqjBO yDpHxMafgSNa6G8GbJvifpC I+DQ36ASFuYS09QXv8YJF6l WxlPSdi NYGfJ5IqxI0cEpKiIXMvSEV kOyc+PHRhYmxlIHdpZHRoPS ibIYGlHeHimEjzZZ4yAz7tF GVyLWNv tFwiaJVaRfEyp3nxQXMtDEo tXG1vyYtlR4EaqCO5DDPwh9 l8Ua03N79fA6CuoJY+PGNvb JF8tKL0 eD6zInRfSsK2EQllF340XxO qhJNaPyqrh1jqo8gkyKw1Nz R9XBBgjyUskSbsKVT5b4SkY t11W26v IHdpZHRoPSIxNSUiIHZhbGl wij6btK2aEp5+JBLpxFS4wV E6gU9uUzGwBoY1FJueP065M nRvcCIv Zezff1whn9ktsAr8VwLdQQA xprXlvWtnRLH8e9HvKc44G4 DbpFtvk2EfPmj2ra33wLZkm 9L5dIZ2 W6QiRCSppmlqrPIzcPumRX7 iBAUvgiemXCFyjP7eCHPmD4 w2EbHpHeP4QDkpF3CjggO9H GJvbGQg TQLlnNSYzA1yhptom6nfgaq lRfTwGKGkNVr8FGb0WDJdmG vuCbFvEWP6GeR8THX0iPEel D5lyAwk bktvnS9bHcf+RXE6oHGzwQA AVR1lUzzcsCW+RYUsHSI7zN meODopEBKfwT5uPGQdO4t4H iAwLjA1 ZEmyD5AmfnR2RSVqgUXqOBQ xmTZNtD1lgzlms9qrmlfvMy DaPTPrYHh1IPr4XKLgkSzuT iBsZWZ0 OfE9GVH7ePNukI2jkMyjtgm dyP8jFol+KsyvuNbpJPT1ER m5T8UeMue5AJKouRacID7xw GFkZGlu Zy1tdWrsdLlhEL6tGYRlfvv ee722TqHjq6pjQNBvjADuMD teYDO9T85ci6E8KEGbNDEpK IF0wCL4 bC5ocHftixwenXCyzYyopjX ryDhtDDvaLFvkY830UPVslY suHpRmHOs1Y4CoHrm3NQEou PmdEL2m vQUfHWxoSk8nxWysfYdbTE7 xADNvjrqvv412FaZob1zqKN XkfJDkXWuvDJZ6D34lg0J5K CMwMDAw WAE9eEK1hZ0wsQhcxklzfEH mdDsgdmVydGljYWwtYWxpZ2 84KNDmhThaTxDiiTj9X6RcF ut4OTZg aMnaBZ8xzDDbZIoqVs6sqGn yeEbkFD3hGXTnfkyoj744Rq Eil2lfYSXdfHJqFMqaHLX7A 44ne8B9 ZXOcWMYiPLD5tUQ3vU1obMt nbjogbGVmdDsgdmVydGljYW zkZFleD234BXBntZkyTtByk GllbnQg NVgwSLd0B2CrGwuwyER+PC9 7LZSgYP69sVEdeHAoe5cjdN h8FzUhVJMcTPL6bXsjNNyrl 3JkZXIt Z98fiHPqy3C4TEBeiNmdhPI hSwEmvUB5nU4lQMcnvrhie1 dxyfseCjpdk4rexb64vQ78K 29sIHdp ZHRoPSIzMCUiIHZhbGlnbj0 yfQ1zQx6+TVQtfAD3zUB5oJ 1fECHoLdI8SVhaM212JnJmv CIvPjxj q3jck8zmgUg3WoN3DKRndnT seHfkRMZ9p6QvBc70M86lMV dpZHRoPSIyMCUiIHZhbGlnb s9ajS9j Ii8+ZHPktKL0aLE9vT5uBsL kXpX5TEmyJ232ZoLlyCAvAs ssD38tG9HuuOG+GJZoLyt4T CBzdHls KF1ksVDwDAizQd3mIUQ1MvG rDhPpFSojD0LnVTUexnhruc ipoHY4KEJeSNSnyH07Mq1ad DogMTBw tUGDbF0wurqdn6xqnumsKpP lYPIeSQn4AKx6IUEotCmyVd IeTCJ2WzC1CJJ4kMWxyD8dy Glnbjog zK0cD7WeGOYfqswdHb24aX5 zPvXuKoM0THsuJve+U0FNUy wgQUxFWEFOREVSIExFRTwvd GQ+PHRk AER5rRlnOXxwQHJevG3mLHZ pO3m9ByMfJyL3LXkeF4FaII KktydgUc52mO4oMpInGbO5K MxdP9Ja pgM5JQNhgDAhARmbTQS5R94 pt3R1OPMgJAExQZZ2cWV5iJ 1hbGlnbjogbGVmdDsgdmVyd GljYWwt CCnmA175RTOcnMpcCmFzNaU 9PgH4Ezk9Q8YtFqz9FTMrpJ jaEE3roLSjVHkzOn3vbHiac IgfPG6q DBUswiupXPWnxC5qUXLrcYG fwIumBU2lAYDelywwe030Fw OyZCH0ZAJvgQCcY5XvjR2zA iAjMDAw ZSAkV8CxjNSmGWajQ548TBy jMeE2VLOqczGbJ9SjYEEfaE hdLqB9u7W5Xk37GWKGWGJij zwvdGQ+ CTRyUYW6fZyzLVnvZWGhdQ2 kONLdF1p3AtSqTjI8JKqhD0 QrKOZduahcXc67pB5bGvRxE sJ2QOpv E5RmxfX9FRFjoGXsTOluBEV 2U12hs5C6UEMzBRWoBQA1jO K0dM7paUelupdicFTkaJizu mVydGlj OSvyXKnjC191OFPadPfnQm8 HBHY0B0McUbb5BHDefAihNW 7xxVOfXZirVw7ynFihnDxrR E9fVJPn ohlwHQPpmB9wYOAjoKBzrVl pFQ4hJLAljlomj680PwRdYI I3VLMeoIVeT5MctN8tJuYyA DAwMDAw J9PpkQKxWQzmV761UGjpDmT 3EBDddgWxS9MfKTKyqHnlYj K2h8R6Mc3CXTlnuJI+PC90c k93C2Nz CoubLxd1NWXeZBA8zCT3tA0 hLEOfDSily0N6tNZ5X3Cmgu Tixr7st2agHCUaJGhcV39ti PJjl5Y2 GRXtsGB0RATmfJhwPtFiyY7 3Oyc+JDTziTfcx8AoVsxys1 fvb8tqsQy3HkFlVPKekwMin WduPSJ0 u4LhSg76W44pMGlyTAQsKOW aBZHeCGCxfIbjos0cmO5uSr 8+QJFcaXD8bHT5rI4tDlLiD yQ3KRmn Y194LrBwaBKkOrdts0wfx4o pwCj2RnLmHGBvgfCwaFkmAO Z9z3SzJy77B2WzbUnxg1AoF vn9zj57 oRHem1Z8oWV8C3JkMUQlubr paSUudEynIB2aUGNxisiyKX GopZ8iKNCpP1q9VgOrOvP8D IyqL8So pjQ0QPDndLJgBVZayUBFqY9 xegtak8dczyrrXzOzAIFtDP g8UCt0XBZjdNnjVyAnYAX0E wP0MNF1 eQKbvV2tuDbsrkrcyF7lWub +UJy8v9fjzKHlIJ2raBG4GI 50GE07oMZwp3F8bZF6P6KyI GRpbmct vpajwFD2COAkEOEkfS36Ji6 bsVrqNr4eEGOqSMR9CEJnrK XmJ3DgeX9cExUePIMwTCUxC 3RleHQt CWtpV857WTzhDiU2WPHmqrK hT1ZmBQWejIyiGbZ6l2F8St 6XCP19AP50QA38zKHmu2J4c MY9P7Ob ZLUxevraefwrpPP9BOBkMFE goK97Dd1lsZopYc7iLXZvIQ O5UHEadNEjO2DvwO3gGaHoD DAwMDAw Z1PvkZGlRIlrV181DUuePmK 6IIWwhyVaE1CwWHZwtOxkGo Z3q9O7Da3FEg34YJ17LO76l EQtx7K1 qUW4L4OnWZWmrcyyyeoueOT 5BUQkHZRxwX44Up0ubUitOg 9dIYEgFQH7DNDajCRcG2Zuv D6hCyBl FDMbTJCpN6EbuWNgDNdfS48 4EKeoFsC9VCMevrJjR5JxHS JgiKchCiD6v4U3Sg2FDQqwk ht2E4Mt PjwvdHI+GF66JLTiYA14cPR ybGQog1gemFm5BxJrCBHgXL R1tOeiJVgpf9WtAEJrA32vq EAbj1L6 IGN (more content not included)... [facility] Coding Summary HTMLBase 64 DwxiyhpsOSs8oCx+PGhlYWQ +ZK6QCPMvK24aqXUqiR6wI9 NMTElOSywgQVBQTElOSyIgb zQmCC2nhFSzQFNs IC8+WI2mOAKdViavtRMlm1A 8wVL6E24lti5aQNxrrSP8MD GqUiDjknbmb2kavBt7HTlvC mluOyBt BUHymE17CVG1xU49He06iCQ uyGDcx3xgsIm3StKuGKOvTV K0dQxdSSmvl0KpSRRlY73ja EXzh7A0 WYSipMjjaNEoGuVoiED7hJ3 qNJgxqgrad6obyrakBgt0zd 34uAMxp3X7aWL9S8FjbaL7D GJvbGQg ChtkyDELbV6jwsrve2jtovh cNpUyJVZoZZl5DIs0PIUbjP szDpQlDS20LMH8KRYjevKkH 2FsLWFs sUhiDnJ1q7I6Kf6CV5JMJsa sI9VNPPXIHPpgfDQ+PC90cj 00Y6LyQpwdPoy5HQYtDBT3d JI5uB7c WBXhVMdea5O8hUL8X3PvgdF zys0cd8tbMYGbYTjtI71goT Wpe8C6JZKlrFO7WVPsoNfqC iBzaG93 Oyc+ZCRhvUceg3AgVnhdz8w tn0phlVf9JobuLZWkkuDwlW jzXIM3i1SbXf9nDHTftIF8s XG3sX4i VtAuIdO4IJclJ782BgIkiPD jUswhS70xD7TynGB+PHRyPj z0MOAokSaxKZ0iQ7NdKGPnv mctbGVm mTovPH0yHJSutpyrRNWkgE8 sACGgL6y3SnZiGiR3FWazV9 EpJITnqgxfXl29rT6hOrSeN wZ2CNyu L5KoxiG4YQIfxXEqNOqyYWF 8W42qn7F5YBVbMOHqDEI0gW I2cP1ptZrzkwyvwAZawZisa mVydGlj ZClmBBpdB894QNBnnLobEzG vZGluZyBEYXRlOiAgMDMvMD YvMjAyNDwvdGQ+CPHfSFS9c WxlPSAn mIAzMBsrJm9jsZpzpYdlZL5 uIHFehelzWHKoiI1vEVCojA RypIgsVM6lSONamhasw559L iAxMHB0 FUYvmWSiT9BnqT4iHeTlWJD rCJCnE2EqrPNuUOwnW782KH jzLmK1FRVscdCxQ5AtCLNkq WduOiB0 h4Q0To8Hj5OgzizgR1BvrLY fOtLeYvktIUt4Z1CaVfjadG I+GS35TQZjAX16IYq6DNA5o WxlPSdi RGXxA1BfpR4xMwEvTRMpTBN kOyc+PHRhYmxlIHdpZHRoPS njVYPkDsPgdMzoEE0yEi2zI GVyLWNv vYhsxATfKjMkd3hiICPlXMk fWP6xuZohB3YplIO8SXIzx2 y4Gh67M50gN7ClsKW+PGNvb WK3vBQ9 vD7hSbPoOjY3LSfgT320MnK scOTgNsxkr9hmy3ghbYe2Su G9UUVaqtQkgGqmQWL4t4IpS t98H86n IHdpZHRoPSIxNSUiIHZhbGl nbu6cfF7dPp0+AQBvbDL6kJ Z1fN1xQgFaUfF5VNiyO571L nRvcCIv Frelg8zxa8rowMe7QcDrDPD taeHpkExqPYE7r1SiPl69N6 ZrsRexl3HlYbr0vn32jBTqh 5K4gOS9 S6HlZFKvqomanLUqmVaaYO8 uPDHrqkhqETQlnW0oCFRyE3 k3EzRiWjS9CPfkH6YbthU9X GJvbGQg RRMxtYLXtC0rhljpo6dlgue sGyDiHPIuLVz9XDt6TVGnnL lmYwJlAZK1ZgU7ILY9vMUby H7ecRvf cwukpI7fRqn+OJB0cHFlyIV FQU0wLatktOX+NNEzQLN5bM qxRUtwGRZdnW8pWVSiO4h4L iAwLjA1 BWtkA0IvngP4BGCahPOaHPG qdUKFnQ4gezirq7bqqmwkFc CvBDQvXSa1GRn9KIPvwJczJ iBsZWZ0 OcW2ZDS0hSGbkY3eqLxlwve iiX8oEgb+OouefVhbQJX6AU c4B1DpLvl5ZIFyfFmhXR8fj GFkZGlu Eo8puFwpaQqlBY1yCXPbhdg rz664IkRnw5grAQKrtRVgWU yqMQP1G28hy9Y9SCVvPGYhY BK9mDP0 nH1nsGsyrriwqXUyfGuwnkE fmYqeWHwgGIleF009HQJqjL snRbNgBWf9Q4RwLtg9VBEvz QhcSK3e gCReNXxlAs3mpNxnmHxkPM2 bLKXrkkgth659UyQxz1lrPG VjcKYySHsaQBH6A38qr6J0S CMwMDAw BDE8tOQ4zK5lcHccohjmkBD mdDsgdmVydGljYWwtYWxpZ2 21GJVwtPcdXqVtgYn9J5SeG ov6QLLr vOlpAT1vsJWyGXikZc4gmDb mqSrfOT8cPWFufvdzt276Sn Kwz5vaGWPwlTKfJWprNDV0E 58on5M2 GGWvTTQdIMG6lVM0wE3wfOp nbjogbGVmdDsgdmVydGljYW lcMBkbJ660DGZmiHimIyBty GllbnQg GSzcUFk7J7VsTyzriII+PC9 0VBBcAC07pFBylNNcu4itzP n0JdJzWIVuSRR6qUljMMbdz 3JkZXIt B96dwZVej2J9RWAbtTllhUX fCrQgyLY3cN9vRGbqedthr8 berkauExnhc3bgzf62fQ26E 29sIHdp ZHRoPSIzMCUiIHZhbGlnbj0 lcS5bFb4+WOPjpCN5xDP2iB 9cVPOzWkI0ONafR371JtKgn CIvPjxj e3gxa7pqtZd9GiV6EIPgjaC ycEzsOVZ8z7AwYq13V84aDD dpZHRoPSIyMCUiIHZhbGlnb y1fbZ1i Ii8+DXJoqPA3jOI0pU2tGyV mAvY0BPwcI739OzQloGTiTy qfC77bK8IwfDX+KYRjKul2Y CBzdHls AJ1vcFLoQAqzMe9cSDO8JgU yVeOxRPbbI5DcSGRpsnfzum ucvPP6NEXmMYMboV37Jy1yx DogMTBw dINEdJ0aioryq9pwtqkbHaY mRYWdVHm9ZZe8JTGggCfuSp TpESM3NuD9RSI9aMVuyK2oc Glnbjog qO6nB0BtJKPgzbgeBi58zH9 jDeNpVoO0JKwlYdv+U0FNUy wgQUxFWEFOREVSIExFRTwvd GQ+PHRk WZH7rMjxUSksIYDnaX7jWYE yB0k5XeZuIsS3KHqiF8NmGV OpxyyaQy43fJ8oOqWiCkR8Y HshX2Nz sqB2EHZlqRDgQHixPAC6K77 sg3R4IXGkBMGqDHQ3fBE1gI 1hbGlnbjogbGVmdDsgdmVyd GljYWwt EFxlE432RELrhKwfXsOiKpO 9CnL6Snt3C4IrBal0RTVtzF klSG6amAHmZSvpKr1rmWbwc PovRM6h LYZiinxyQFOieQ0gDIUmpDG hqXjpKH8pPRPhrhcly165Zp XwCJA5QPZsdYEmA4VnnE3pR iAjMDAw WCMuJ3LrpLEcSOgmM795MUu aJnX7HRHvskEdP4UpVZMkhL wfOgB8l2I6Ex43ONHMCUExa zwvdGQ+ SHHdYVN0wOjcSEsvHZMdbU0 jFZKfE4j6MbJySzM8SUsfC6 RkIBDmqcodYk00xM1zAcGxX sC9WIux T0VmfwS1FFUqtQKcUVthRDX 4L00xz0K7DDTxYHWxJKA9vJ P2mO3cxPymcagchTGthNfvl mVydGlj PMaaQWazO097XUBlpIqqTj4 HAYG6K4DpCrw9SGVhmUskVP 7llPHrAVkiKm7gzHzgdTjrF Q1hENYx plngFFHsgI8jGARlkRAyeOq mEM8zZJPgbdvsa745AiOqDL R4TFCkqXLcN1PdoK9lWjRkC DAwMDAw Z5MqqNVlZFvwF866RUujQsG 6SPEyrfNhR6TeGLYljCfmLv H1m4G0Wu3JSEcfeCA+PC90c u88N6Lr QfcuDcn6SSUiRDK8yDQ2pT4 tZXDjQUeqw3B4pRV1V1Wnhk Ggev9lf9cwDBDsWLkuO76dw QKwq6J0 VIGvoTM7CXFzyHapQaVpzQ2 3Oyc+MXBcmUlud1IhAywfa2 hhp1gocFo2AwKoDCKrglSxw WduPSJ0 q9IfFx85Y00xOLmtFKXlSRD wMRXcDAOltByceb4peH4kPo 8+KSCoxII9rDB6lT2vQqHjX bJ7MSmf L690CpLafQRnGitdx4rsx8u ecQc1OzUkJFBfmjInwYinOC U9o3BuQg34G8VujDxcq4EgR cu9wk89 kUTrv0M9uED6Z4AhAOGcwoe ujKTglEsgPW6gOEUddqeyDI LvtV0vVDGrH5b5DpKxKcU2J VcnR3Gx tmB4INSahXTnIKUctBTSuW7 tnhgnh7fdtonfCmQaFULeXM a8RBt3GKEnjJzoOhXmDHN8E kE1WAK1 wNCfkN0xhGverwzxxO4cQvw +AKg9q9lqoPRyBG0toCD7TJ 95GN03iBEir9H9vTG5F5RmX GRpbmct pwjghZG2GMAyFCEqpV34Hz9 hzMuaIr7lPBLwAOT8SDMryJ IrR7KclY0oPbObIDXnHXNhH 3RleHQt PLsdL649PFtcWqK8THIqscE lV0ClTMJdyXrmDvN9e9H1Kb 5RZW19GX78MD97mUQvf9P8o RR3T1Gg NEAyalgiprvjwZI6VPIrOMT aaW39Uv6zjBobLe6aYZLcNW J3UMRkcZEuM2WmfD5cZeWlZ DAwMDAw Z9ShsRRoNEyoI107GDaxTtG 8ZYLofqUiW5BjFEXviZwtXv D5e4R5Rt8KOa91XF39VE77s FDia6S3 uWZ6B2DyBNQxphqebaohzXT 6XTKtGDJcfN65Ei3ppEetFm 9lXPPvGCS1GDZdhGFeO8Ejb R3tJsGw EQLlLHJkI3XvvEIbYQfbA37 0PIgtAbJ0UNSqavYqV2WiZO RtdGmnCpQ3i8M8Ul1NARjac fk3Q6Gp PjwvdHI+IL63KPUdYW77lUO loZEwy4enaJx8SnDoWIKeUD G4jKwsPHwif8QeUFVpP37vd GQwo5C9 IGN (more content not included)... [facility] Coding Summaryon 08-02-2023 Coding Summary HTMLBase 64 DrsybgzjAGo2oOb+PGhlYWQ +ZD2KCKRdF92wdVPqaT1kL5 NMTElOSywgQVBQTElOSyIgb gPwAM1hvJRsQXGr IC8+QZ5dSCAoZesjzBKpm9F 9fBS7O11vwe1kASsyvRP0BE WbNmIvkuxjg5xigFe2SWgnK mluOyBt EGDorX97FNP1qV35Im02oPF vjSKqn8dloSk8WoLmBYFaXT U2sHerEPpkt5YhJJSlZ57mu VUsc3E7 LLFadVelqRMxBsDgiGE8hX8 aEItwasrue2hibbobSoa6jy 75zPQzm7X0fGN7K2NsjhK9X GJvbGQg TwmjeLVZzK7diblgs2hbgbg cDgIdPEKfISx4WBa3YGTycV nyAoEnNQ55ZKN0CUDuxhCmJ 2FsLWFs lVigNaY2c9B1Vn6DW9EPSvf oM0PQILIVKTroyUD+PC90cj 82W9OgVpnxRcd2QEMlGIB4n BF3yC6v KBHvOYlia1T6xXP0N3DwokD zlh8xb1jyEQXhUCzaT36xwK Uyh7F3PXBjtZP4HGAtoWcnK iBzaG93 Oyc+QKDbtAisy5ShVplfw8c nz5bjoIi5SdokPGJqwvNzkK dfBUI1o5IfZk2aNUOlaGX8m DR1fZ0j DfPcVvC8YQyrU458OeRhjYK eWrgtW51uX8ZqxYE+PHRyPj m9SCHmvOxmTA3xY2OrZCIsw mctbGVm kDjfOQ1oLEPvazleKBSzvB7 oFPLkN1m3EpOjDdY2SNeeJ9 LyXMKxljxgJs93eD9sKlAoY xS7OCky S1XibtQ7YTPeuXTuVZdhAMM 6O07pu4R0PHUsLPEfXRX5rJ W1jK3ukBswbjezqIKoxIupu mVydGlj OTfkMYxzV715HTFcdTloGcD vZGluZyBEYXRlOiAgMDIvMj cvMjAyNDwvdGQ+NVQtFNZ6r WxlPSAn aZSzQXgaMq8wuBiemRvzKT1 vPWQebvryHKTmrL6yOIFzsI RxcJqwFQ0aHWSkiezyb800S iAxMHB0 VVUfmAPvI1RnkL4iAeWsVLV oOIWmT1IzwAPjDXqcJ139YC hnWdD6JAMtitHdR2WwIEKoq WduOiB0 r1M6Yy6Fg7EugbfcZ3MutBI lIgDnKdznZYx9Y6WhFimxrO I+JL22HERfJV70KGr6PSD6v WxlPSdi GDIqD6KdyT4gHuBlRGFqHLU kOyc+PHRhYmxlIHdpZHRoPS izAMHnTwSxtNztFN8bDd8vU GVyLWNv eAqutAIeFiLic1xlFYEcHKu wLO2lkAydY3LvnQE6ZDGoy9 w9Rp13H73aD2YdwQG+PGNvb XJ0wCY6 lL7aCsEpKsT4EIcwA761NaF ysGGnAxaix0mha4bafGt4Ad U1XCTcjxAobNwlHRP8d7ReK l45B66r IHdpZHRoPSIxNSUiIHZhbGl vzx6cvX4rMa6+YZAefYP7eS R8bT1tWbFsRrF2NYllI272O nRvcCIv Uzjlj1egw3jsgTu3QnCvFHB apyHxiHzfJGR4m9PhVo79G3 VewDzrd9SaSqx8br60qSQie 8T4nFH7 C5XcYKQxsrmboVPwlWigQG1 tIQQigbgxIRJbuQ5bWTHaU5 b0WkUxPkT0GYkiV6EzmaR8C GJvbGQg JLHvgNFQlC8jdiwkk6vfpmd xHfPrUVCoDMx3RJz2QJUdiH mhMlRdIWE1XtD9KFP2hYCsz G1grLto wcwwpK6dLys+PXW1qNFibXM WBH1tDyyxtQZ+DCYtPZJ1nG woTSvrSPBptJ9tLWIrN4o9Y iAwLjA1 BXucK0MjeqY9BAVruTByBXW niCNYxL9ndwcva2fvbibdLo BzEAIxXIx8HVf4EPCbxFazN iBsZWZ0 MmO1GYP9xBEfjX3hqUunngy ujX8rYbe+TymubLlgXAX6MD n8I5BtEke6OGMgxZzcKI5rt GFkZGlu Rx3atUsgdEhnMZ0yVDDmjal rw874UhDev9xwVBBkiHZnCK fqHFO6R40kr1S6CITvYATrO YB2rYX0 aZ9diQlnvtlzeULbaGrpviV twPyaFLuaKOkdX727UQLdeA bjGuUqNXb0H4PiIer0FDRml RbzFY4x hPJoCZvvEr9ytQdkiCiyBQ7 bDQWumoawu400CmZun0inMW SpzYLrYGglCIN5G26ga9E1V CMwMDAw ERH2lKG3sW2rkFvtfehfdFM mdDsgdmVydGljYWwtYWxpZ2 63HSGzzTjxGvPhzDg5X8AjK wt9ZOEm yVxeRX9xgWYcOInzJo7isUh ziOouTK0cVQMbiqqtj224Tn Vfr9yqCFLfvZYtCLxaGHD0K 29qj3R0 LQRkVQWkINI0tCD9eO3daNw nbjogbGVmdDsgdmVydGljYW hnRTlpJ400QRSnlGieKmTbb GllbnQg HXhjQAw9K5ZlKoimiWJ+PC9 1TCLcAV42tKMxmTKyj1fzcL p7TuCyOCLdMHL3mBveMOjpl 3JkZXIt E89fwDEjs7C9HNYswSpjpQD iOvQieGB4nJ4eCGoyxhbuj4 gjeorfTtklg0lbkm07vF14L 29sIHdp ZHRoPSIzMCUiIHZhbGlnbj0 zkA8oOq2+RIDtuQL6zZD8kJ 2hLWDyUbT9PDfgG751ZuRre CIvPjxj k0jts7gwaSv4QkR6UGHphfU gjPxyTIC3u5IoHx06R56iZE dpZHRoPSIyMCUiIHZhbGlnb e8ytN3p Ii8+ALBjtJI6mDD4lV4wMaG bXtC4KHxgU794DeXbpAIeRa bjN70sO3VwtRV+ZTJxBqa0I CBzdHls IG7bjVUhPYysOi6lXYQ5LhV bMsItRTrpY4FiHCUexmkokc thfVR5XERoTXRtuQ11Lt9xo DogMTBw wUXZbB8eyuhjv9zbiwdrTdG kVAKeQHv6QSg5MPGjvJydIr PvTCR0IgC9ZBD2pULjxL9zw Glnbjog eH0wP0FeOXIfwqjzFc31gN7 tBfObPxW6OFwqMrn+U0FNUy wgQUxFWEFOREVSIExFRTwvd GQ+PHRk WOQ4yOguEDaiIEGkmP0qDMZ yY1m8HsUqPbK2EWfbD8TeHI RouummEj67iF7yIaHiPyC7T KgqS0Zj ivP6UEEbjDFoJSglVUL7T81 uj6P3SLSeIMQrJYG9yRO9jK 1hbGlnbjogbGVmdDsgdmVyd GljYWwt WImnT294LVKqySucFdDfExM 8EyW7Dfs9I0OuQvm9ODUwsQ vmRX9ptVSiWGvtQa1jqFoib IfsQV2b NEIboijrREEnjF7kJUDgoMV qqSasFJ1eOEYurxwgx139Qr YeFQD4SIOqzQMsY0KjlJ5zO iAjMDAw ZTZkO4GpnMSgQPzwG806SVw aFzC3VGMaqyGoJ1DaNCZgsU eqSdL3g2X4Pf85XTOFLWBwe zwvdGQ+ ZGUeFQL0uVthRCchYFDrgB6 sHSSwL7c3EnYiJqR2DInjL7 GrQIZaxgsfVc03xH7dRhShT jA8RNsp S2HngjI5OVPruNSwKDytDCT 4L62vm0B6TMToDWHwZZC0sW V3yQ0hoXuxctcdeOJzvWkhw mVydGlj CYokKItkP664HDWoaImzWc4 DPOR2U0OlPgb5YWCfzZcyGO 9kgCPbUSegQn0plSxthJkhL E7eBWNv usqaSQCiyX4jZFDpbAOmnRz sLK7aEBTbscxpj654KjHiLV Y8IIIcxWSaU2HbmE6rFoRnL DAwMDAw G1NdaJQzGJhvN905YRciAhR 6HGDyblLpK6QkMVNtyTfoLj W5n9W3Tl6ULYjwfXK+PC90c y05P6Sw LnxbZdu9HGGnCGT1vGC5fY6 mUJArBFfeq4I1vWJ5D9Vqud Jfzg1vv2ekBGMbLAbnZ01my XPdd7C8 DIKjmUY4CRHoqHfoXdHsvQ2 3Oyc+YUHxyKkei8WlDmnil3 jfp6kzfBa6VyKtQHLnooKpg WduPSJ0 s7OyCp60O79uDPmnNCHpHSJ cRYQwNRBenJtoef1quW5cKb 8+LPOmwWR6xJT3jP2mQmUaL nC4SNvs U997AbVzlVAjGcyjx6dry3s ncWc5RnFiBGDubaTlyVcvIB M2l8NzVc59J7VnzNhva5VdY ih9me77 cKIjp0V6tRK1F4AoOFVftjf ibZGvkJqjAT0kCPWlxiegRZ TxaG6rHTEpJ4i5WlBlGwA6A CwnD6Uz fvI2CSUkhEIePGGtwQKBmL6 npeusy4pjrrzuCaZfHNRuYS c5TOy8LZYpoEvoDrAuTQY5H vP9ROJ9 kNZwhH4lvWzkpluzuT4uUuu +PHo6f4sntEUnJA9wiAR7ZB 59YR99uEGut9Q1tEY9P6MsA GRpbmct hcfubWV8BIJiVQUkaK18Oe7 xxKlsSt9kQXJuLKN4TCOttC KsV2SwhO9iDiBkFDZsKTNiE 3RleHQt SKhjU826EVyoJaB4MBCzdwW iQ3IjWWOztKgzOtL3h2G5Yp 4LCM21GT01GX87vWAtz5R8s YG3S9Gw MXKkeuorhfcphPH6AUSyFTN zsK19Je0arFfxMb0lOEAyVN K9TYUhgGCfY1YacI8fViZzH DAwMDAw Z9SizGBaQYdaM112LTpjJvQ 0TEFxrfBwC8LmVKVncBnjQm K8g0D4Yt8SMx91SM54IZ72j UQzn3A2 uVF0P6IlHTIruynfvniihSF 0EMOdBHInlH51Sp3uwXjlHd 2iJFEtEHK4IVIylADtO5Qgz C8iYoVr RUDcQFQzZ3FpwDAcUMucF95 3JTuuMsS3LYVngeNkY1BcJS XqtXtyZpY2c5R5Rt1ODLmbm tj8F9Lm PjwvdHI+GN14VPLgUL72jJM kiEEyn2mxyTs2NwOgZUXyUQ G3mJndQCeni9XrGXWfX51rk XPqr9A1 IGN (more content not included)... [facility] Coding Summary HTMLBase 64 TxfuowtiVXs9fHz+PGhlYWQ +WY8VGMUtG88cdFCddU1tZ4 NMTElOSywgQVBQTElOSyIgb cMwNA0xoGZmGLVt IC8+WY5bSMPkLlddeJOwb0P 2uDT7X41qnm0tVKacdHF0MY WiAqDaetiha7thsLa1AXyjP mluOyBt WRUxiU35GTM8iQ73Wx99yKO yqUOxy8vztJc3OxZpNBThJW Y5tJgjZDznu2GtKPCcF93ar FBpw7D8 ATTmbMmmxNJqNyNrzVE0oZ7 zYWnfexjup3pfzihuBju5ve 07pZFyb2B0fSN9B0IbsqR5Q GJvbGQg NbyahFTYqO8xjkexv6rgqef sTbNzYZLgQJk2NFn7VWMriU jsTnJoMY27WEF3VMAfqpBcO 2FsLWFs pDjpUaZ9c2B7Rl8AM8RJHcv wP9GZISKNGKnwsCS+PC90cj 75R9CaYiauWji5GXBtUWU6f MZ7yV4u BTMzKSlgb6I8kVS6X8BkykV vfj6ld7zkJTFmLGgaL39pmJ Ttr3X0WKHbsTQ6ZPQhxWloU iBzaG93 Oyc+MLQojBkhu8QhDpfyu2i jr0fdzUq0WpbiUQPdbpIscN nrEHH7h3FcYe6nTSJifUY3s OP2pD2w LjMyEfV8JNzaP258ZxXlhXT sJmkmN33iL4NeaZB+PHRyPj z7OXRfrVcaRS1oV2BlWBJki mctbGVm iFctTM6nOHBhonjkCZItgZ9 kNPZoG4f6QgCaPpY7UBoeP9 WiZQIffjecXe37oM3nTiSjW oN2LJkw O0WkptM5ALHcdBGsFNopAOG 2T39rd9E1RREbUNWcUOC2cH K3lN5jsIdnyvnudEKhzVczk mVydGlj SMsiEWruP967NRAszWmaReT vZGluZyBEYXRlOiAgMDIvMj cvMjAyNDwvdGQ+KTSiAYN2e WxlPSAn hLGnRXtpMv5eyXxtwHgjYL7 vAKIlofedMSGidQ0sFWLxoI JvjYksAU9eUXEaowwpw532J iAxMHB0 ZAJohAQgA0KnrW1oJvTgBMW iAMPyC4SiwJZaNPauH216LS gwUoO4JFBafxYpK2JiHBFnj WduOiB0 s4K0Cu8Of9AzaywbC0KeyFO sBlUxLjdiMBy4K0EyDqaddA I+EY60LJBxUK39VLe6OQN1x WxlPSdi LUXcD7BgzD4aBxJvEJAzRQS kOyc+PHRhYmxlIHdpZHRoPS xqFOHfOaNesEfmGV7dDt7tJ GVyLWNv kEbbaHOqKkCzl1aaRIDmKPy uCL8jlAbxR1VwlLP9PBQou9 v6Ye59I31wE9LkvGN+PGNvb GC1fBG2 mL6lSpLrRzN0BLdiT078ZqD heOSyZifhh5twu9rvxOv3Ln M2AIOlnaRjuJkeORG0x0RoP u18A34y IHdpZHRoPSIxNSUiIHZhbGl gju3oqC5vFr3+RHBotUQ9yP M5cA7lSuKzTtW8PEpjK559X nRvcCIv Xgnnm4bis9dbeNe0GgTiNIG xtdPiqJwdWEV5u7YeDi17E6 CbeCgzi4EdBjr0jf78cYWrf 6U5pMT4 C9OiXNDykkmzjNPqdYdnCQ6 dCVLhfmcgTKRimA7hZNSeH2 w0McYtPxX0IBwnW5AneoE8H GJvbGQg BFEyoKOHbH9dohanl1mgbpk rPrEoGFEvFSs4KPu9BRNkuG rnHsWdQPG4AxB4JOM3iWOlv H4fkYii jccbcF8uTkp+CTH1gBQsyJC FUS9fJrettOF+TJKbICZ7hV vgNKqzMFYlhC6xBTHaP3f8N iAwLjA1 FDvjK0LhczX1JAUtjHPyAJY lgAUFgQ6nevsyv5kfsmfqIa GvQIEwEMq3GHo0JUFxnAtzM iBsZWZ0 FrL1CKL6dERwgT2wsIcepzj jrN6tWrw+VllszVyzNGV8NB r4A4XoYdg3YZXjuSdmVA7lv GFkZGlu Wl3usDoioHnzSD2uTYWidox by794UgKzp0kpYJNncIIeVU psMLP5A97lj5E2CEYyCVScX ZO1qRY7 bT3jtSlckaqxuXNyjXlnggQ vhMbuKBmgUKvzK359ZRShcL omMkDuNFl4G7RdRdm2YXOjg JluNV3q mWJbPQhqAs1wdOxtbAsfDW1 uKEEdekhaq485VsRjm3oxTE SpdAUnDAnvRLI1K07lf6K2U CMwMDAw OUT8nOO7zF9xqTbxbcqhnLJ mdDsgdmVydGljYWwtYWxpZ2 06DSHmmMunTfVdpMn0W8MhF gs1MYRd xVouLK9fcZObNKlpRl3wsGx kdUmeRU9kDVUzafqfw264Yr Lgu8diRWTtlLMaCFmlQXF3Z 97ro6L8 SWLySLVfQUK6dGN8uP1maEw nbjogbGVmdDsgdmVydGljYW xuWBviX389GLPmbDysLxJfp GllbnQg YCzbCZr9N0WlKvnseWO+PC9 6TKWzSP14pYEsaIFsm2cmaZ i2BvLhVXThZEL6fZrzUGqwt 3JkZXIt S54ctKAce1C3UUJddZzutCF aYxVfhCX1uZ1qRVqvevxfs0 xdjlaqInehm1mckt19yV98W 29sIHdp ZHRoPSIzMCUiIHZhbGlnbj0 ysC9dZq6+CJFjjRP3bHV3mA 8aSPZwYpB1DIjvS237TmNbk CIvPjxj c2mpg6xshTe4DeG8PEVyigD duOxdRZG4c5WpBw56P90qJO dpZHRoPSIyMCUiIHZhbGlnb e7irC1d Ii8+ZJBndMD5aUU2pZ8nFbI uMbP2DEzzF942BzFlhMHmTf bsK51wL3ZekXC+AIRhRds1M CBzdHls AT9owWSwKAvsIk4tSRV8GgO jAiRdZOzrW6FvFCTzrpxkoo beeEF9XBMrAZEncW65Qs8vh DogMTBw uNBCgK7xzucnc4mzrjnkByX sRAQhYCu4CXf5PTRykCtvDe UhDMM9WoZ7UVO1vGUauH4kj Glnbjog wZ7vK2LpOUNdmkuwPl50mX5 wYmXsXkG8PEfrKiy+U0FNUy wgQUxFWEFOREVSIExFRTwvd GQ+PHRk TSA7fCauTFakHXLpnL3wYYW sP7p9XhWpGbS0TGpfW4JtBN YxbkqpXv16cM4sOqPiAnR8C UjbQ4Tr rtO1KSNyqCUzZUlrQWR6L72 sr5U7ABDxRVSaNMO8oBY7nL 1hbGlnbjogbGVmdDsgdmVyd GljYWwt JHoeJ578MKTgcWxpGnMpJnL 8CqU9Gjl5Q8UxPpj1JBWpsY yuID9enAEiGCpxAp0haFynz EorNN7u KMIpzkwpLMEglG8iCLXiiFD ebCdaME3vKGUyirnii613Vl BkKXB1REWesGHtF6SqqD3oQ iAjMDAw EYTbC8NfeHCdBEbvV118WYp tKiY1LJUwbcJtC9KeSMCpnB gwEvU8t4Z5Em06OURBNMYnj zwvdGQ+ OHYgUBI2nHfzJQjqYYEqhT2 dNHEiG7g1GpUoZpZ6WRbdH8 NkMYYbhuymVb36sC1wEbBkU cW0APuz N1QsibH0FFIfbVEsZVkkTKD 9O45bp4V6SZJjZOYhZHE0nS U3kL3uhBeyzpmbbNOyhPugh mVydGlj IKxnAOyzH581ZTRoeWfsMv4 XEFA5D9VbZiw9WWAtaGebEO 0igRSoMOkkLn4ewFvdtUezS C7hZMNi nhzaUJBffK1lSKZjwZPbeSq aCW3zGLToqiywp818DtFcSR F6XLHbrTSsE3BmdG0fBiXsD DAwMDAw K2OlpWDfSWdhQ852IDsuXfK 1HGRsvwChO6BxNKHruHnpOn P6z6Y1Vl6ZOUnplVT+PC90c w33M7Up AjegHqm5BBBvGJF0oCR9fQ0 yYLPhNHqok4K5gCO2G1Udij Vsnj3lb1cvEDQeUYpsF56sd XTji0E3 BGTzqAK8WAIoyAmdFsSfpC3 3Oyc+YGQzdMoig7PiLylov6 lnq6uxaRw1KdTpWLWsufBhu WduPSJ0 z1UhFb52K35sUCfqBLTjTEM uHTTsHTUhrVtkdm1tbX0wYa 8+HFHjjBL3aWY4pD2pAkTqT yC6DTpd X562YtNgtBIjSwuvu0aks3o kfSv6ZuHrZUYerpCfdOrnKJ Y4l7WjEg59M2VhxIepo6XkX wq3vn03 gAGfq5M2wWH3K9EyNPCmowb qvBZfrUbcYU6oGEIrckxhYC PztK8sCVBaS5x0WmKlDaS0F JnyP8Fh dhJ7NNAqjOJtZGWjeWRStM2 ydhszs1jrmthuYmUaPKGfPX h4PYd5UZWocPswVlBtNNC6R hH4MSE1 iJBezW9nkStfocefnO2kFls +VFu7t9vzrIQyTZ0cxZD0QQ 04XI17wNRfv9Q6iJX1W2QkO GRpbmct ktmcyEN3SDSyZCFjcB77Pg2 aqBwoBt5qJSMlYTB6UIJapL KhA9ComX0nGuDfFBGrPMZfM 3RleHQt FMgjK941CZfsDjQ6JTAbqrO lC9VoNDVncNmmOtW5q1I6Xx 8WWF42SP68JT33tHJaq6L7m BM5B5Cp PLEqbrwilcbymWS1MUGhUHK vgZ76Nq7sdMnzSd3wTPMoAL B9JFXviYXsD5WjcN3yCfHrT DAwMDAw N1MrhVRnKWjzZ121NFhcAfA 7DJBftcCzQ0OtREDclCjrJs X6n1U0Xp3YBy90AP88OX17d UMxq2Y9 zLH1L0LaHNFltjsnlmuswQC 0ZHNlISRltY71Ox0skSibIr 1xIKWxQRZ3PRAnqKLkO5Zrf F0gNpAi YZQrVFNgU8VmvFVkJZefK00 7SRuvQzV7XUPsqoHaH0EcSX VkvRftByX8j0M0Bs1JHTkzr xa3C0Qf PjwvdHI+XA62VFWmPZ16eKA edVOid0mnkVk9IhGaKAFjMA H3aDihNTirs1MbCRNxX68li NUin2A2 IGN (more content not included)... [facility] Coding Summaryon 07-12-2023 Coding Summary HTMLBase 64 LdaveqzmJDs7vNm+PGhlYWQ +UQ4HDKAhB25crJFkkE9rC4 NMTElOSywgQVBQTElOSyIgb iHrXK2uxNXuYIYx IC8+TD6jRDQcFxnjzAOur3N 5aXS8Z34bkf4yEGgwtTB6VH CoIuXnnskxr6neeOn1CLefF mluOyBt IRVroV64EXF7nC35Ru72hWE xgLNvs2lxyCg9SgBiBRJgYE L0bBhiRGirc9YtGVSxM74ug YRya1R0 GYFqeVczaKBjFlQzsLQ8rH6 jEInvzkupk0sxnzmrMzy4ww 57bCQix8R5oIG7O0OcqeX3Z GJvbGQg IiwtySGJvE7nqoloq9kkkgn sMyShCKJzIQr8FPr3JBYnzS znZfAmXY85ANR6HMJbkhVyU 2FsLWFs tYfdWbI3w0C1Qu1LP8TSOex vK2XEVZCDFRahuYV+PC90cj 75U3KcCcpkXof9TOUxBIH0b DU1fT1t UQXdRCcpz9G5sSM0Y4YxlrD ach0aj0fjUOGcVFjqU86gnS Mxs8J4SVCmkGH2VSZqjUziK iBzaG93 Oyc+QUJlmVeet9LmKrobe5x jq2mxuPw4IufkZOFdrpOgvV lqIAV5q4VzZf8iKYFmzAF8g ZR3qE4z TpBdRcR4SSdjX801WdMzlJN gGpznU01sF9LxmDN+PHRyPj m5KZTeaSpmVX1jW2OkILJns mctbGVm oGogVA3bMIRbyebiQKEmjQ7 lXXQcW3f8BoQwEwN4ALcnG2 EtXJDtncphKx00xU8dLiTxO uL7ZCbc D2OifxS4GQMxgEPaNQjgQML 6U94jn8L3JTCfEOIyQHW1oR A4pG5riGazvcoplIJmpLppy mVydGlj IJrcKXvzT230ZSMvgMbyRwJ vZGluZyBEYXRlOiAgMDIvMD YvMjAyNDwvdGQ+DQGyPPC1f WxlPSAn fDPnXKrlTu0sdBnyrRlfIN1 kWZNdspidEPYhwX3cUHYkcT JgzJobZL8lEHUsuwpfo296E iAxMHB0 TLHrsVFfE2CfsC7gYoUoHRL pRGCkV7XuaDFkUKjxE227EB flGxF8HGAoiwMxG0AtPYKww WduOiB0 u3M3Qb4Lt5EnvldeK5ThzIC jSjBqWnkxEDm4W3QrFfqkbG I+KT48KREbWF09OGj5HVR2j WxlPSdi ULEbF9UkxO8tBuAbTZUuZCQ kOyc+PHRhYmxlIHdpZHRoPS ymUIVwCgRjfDttIH2cPe6gC GVyLWNv pPdsqFRcXqTtd7tuUHPyYIu rLO2asJmnQ8EcmMC7GZXea2 b8Nx04O65gK5LkcGP+PGNvb QA2lEP7 vT7lEhKjViJ8RJdtL297WgL drWOvPozfd3dnz7nvsUa1Ja Z1GXYznjTxlAeaHWT0y6BkD q98Q59b IHdpZHRoPSIxNSUiIHZhbGl ebb5jhS4wOd7+WXIvgWR6iT A8bE0lZuInXmT7GEwrY486H nRvcCIv Bqvol7yda3bwjHa5CmYnRWY gxiIjcXfyURC9o5EbUa66T7 JxoSimw4GqJpq3lf05sZMah 5A0bXU8 R5LxWOWsrosckEEvvTtcDP5 xMHBbktkqTRWhcB3aQIRpZ6 x0PpBvJqO3YQbzO2AmzdS3X GJvbGQg NVPgiLCRtO1yowrtj2zorsq eTgWgRHLzQNv7GXg2JRLreS mjGyNbHLK3EhW7IWX4zIDnc W1jqSgs opuimX5jUmp+YRT8dOMelBU KYR7oZfmjwHX+OSIlNLO5dM gxINhtYWWyyY2aQZYzZ8m6P iAwLjA1 JWtxK5OrvoZ2PIJboDSxGXH xiZXJhT2jumtuw8zrstdnFq BuPPQfIBw3CIf3YHQlcIdyO iBsZWZ0 AeL6EVU3kTNhpY5tkXjkpiy bhM7bRrf+RgaovXmyOSE6EF v3W2OzSmj7DAWpmJgkZQ2eg GFkZGlu Za0cvGytaTseSH2eYNSjcik ws606NwHro3mbGQAxvQVxCZ fhKSL3Q94fk6L0DSTcEYBsI WG7vZP1 bQ0dcVrdmsgvyGHloWqooaT zdGhvETdoSZgkU392BMXdfZ drWsSiTXm0M3VuLal6PUCyn YxlWW7k vVEsYTfrVt4xkSjfiGdzVK0 jEYAukbcgb212WeXub7phRM ZmeTWdKCboOPQ8F42wi4A7Y CMwMDAw KUT0xMO3qH0lzKfahxtsmCJ mdDsgdmVydGljYWwtYWxpZ2 03WKGlfLenErUptYq1I9ZrE le4ZNOu gVdwEG4bcVNhOAewEj1ubWr ovTvgFA6uQQAbwrjmj157Aa Itu0atUPTldDBiFZyvBKH9T 11po2Q8 TSUrFULiSQL0jCK1sX6gkUj nbjogbGVmdDsgdmVydGljYW sfTMnpN844GGPbxRrvXmRyf GllbnQg TXlePQy7X0StPurtiWB+PC9 4ACXdAI79iNXnfYFrz6mueV b3LgQmLNAsOJW5pHqfGVvxj 3JkZXIt C75bxQVeq6P1XJJkkHderWQ uKsZdjHK7eG0dSEqmyieqo8 klqttzOcebs2bpbr28jT01C 29sIHdp ZHRoPSIzMCUiIHZhbGlnbj0 maG9hPt6+TOJqmQQ8sYV5lL 8aKDMaBgT2VDfxF481RsLrr CIvPjxj x3uwp1ltwMf9DgF1YUUtpgC bvLyrCLQ6r8QhNd64S55xVX dpZHRoPSIyMCUiIHZhbGlnb t6rzF6f Ii8+NJLkvFI0lBW6xL3sSuV tUpZ4PQsaQ845ZnIvcNKuBb zgS44cO7RrxMJ+DMQyLfz5R CBzdHls PM2vqOCzVZwkLj4fGIS9XhP qVvOtCUgzP3NiJEVoroohla bqqZC5NPQqVSXyqQ31Zf4xr DogMTBw bCDCzR8swpjaa8akvlcnVvA mNYFjFRb7LXj4FKYtjMiuAt LdFBF8VrH1IAZ4tYFgqI3ed Glnbjog xL3fS2HtZMRbhyszAp82nA8 pKvBjIgY5ISsnDtw+U0FNUy wgQUxFWEFOREVSIExFRTwvd GQ+PHRk EYL5pImbMLliIEJieM1aSCV xI6b9MgZzZsY6AGucJ5IrEZ HcoxtuDy93qK1xJaZiQqM0G JayD5As dsX3BPWmdXJnWTyrYWP4M14 fm8X1KSBpAUGhBXW5qVI3cQ 1hbGlnbjogbGVmdDsgdmVyd GljYWwt RBskX702EJFqeWtuMtDdVgQ 8NxH0Hbs5Y3RaZhe1ZCGdrZ qlYG4thYXyATffTj2oiJeku KixQU4k SEGnrgkqOJSbqS4xRPLecTG ufObeCF9zIVSulmxmg627Vv OkTLD3CHGfmPZyO9JwnQ7dQ iAjMDAw JPMtK1MmaZWcWHtgT138DSs mNiZ3CCNgxlIvX8OpYADavV kjWrK8r4G2Ug58LBGDMBUbv zwvdGQ+ NMBeBPK1sQigQEbfGMUccY5 bXXJaK6p0RpReWjT8WGbxL5 YjWWVdgstqNv93dS5yZnDdN xW6KFwp Z7TficT8GNKdrMTaLZoaNWU 9B43gw5K9MAKaRBJcEBN1nN R6iK1zfJdljjseiFAkfSako mVydGlj NDhrEBzxE687QEJkzGuyGm6 MUTD8V1NmTnb7CIKbaOoaGC 4bzDAkKRnkIk8emXlygFprJ E0pZXNb gclyHECahF9uSZLmaTQqnFe nON6jOYGwgxgpn599PrGqMY R3SQLheDOhZ0XpoJ4oQzEoG DAwMDAw I8BxcVAwVNreH434UYxrLwK 5FAEadlPzL6OwRUHrwEovOk S3j0O3Hu1TJIukpMJ+PC90c e73X8Cw JjmvXnn0ATJfDQS4iQP7xX2 uCKQrFHyhe3I8tRN0R3Qdyh Mlho3kb7rdLNVdVGttQ43wp PVnf6H9 GUPxtJF4RBIujHnyVlMryQ7 3Oyc+SBSxvDxxs1YiEnymd0 ali4clfUs8TvWlZFVahfDze WduPSJ0 r5LfTh98K33mKSaiUAHaVUF sCCWoRWBzxNcjay6hjY9zIm 8+TWZxwZM7kVQ6rT4bPsQvX oY3XHld U472HyLowKXxZzflf4gyp1t dvWa6EjIsUJMemuDugWhnIK J9e8UfUw57E1CupMqlg9FfT ll2fw19 iXVis5I6aXW3C9HjGYSbgxo ioUBuoQkoSK5aERWufymlEA GvlB4gHWPcR2n5CvBrArL8T EsnU3Ic saV6LUCeaKWfBMZmgUCIaA4 dmoqmg2hpkjnqOuFdOOFcXP h7WIa5HFSqnDdrSfVtPDY4S sG3JUU4 dTUrgE7kiNcwnxoucF8yJrh +LMy2q0tahUCiEG2ieKN7IG 79OM15jYBew3V4kTC1T3TjT GRpbmct wtbixCB0MQIkJPDzlR58Ge7 ckQygTy3oDWWxGXZ0MRLqiR GhI0GuuF3yCeRwVKCyLKRmL 3RleHQt YImbO204KQadQuI2UINunpD zP3NdKIVspKqsJkR8i5G0Uw 1STQ69BD02LQ33iQWin1P3f WC1F4Ei GYDfjvcpzrrznQS4TLFrVHY itB34Tl0laJhwFc3wWRCtKM R6DNAssECjK2KpvR1oMbCiK DAwMDAw K8ClbJVnRSntA843LSjcOsU 7MDXyeuVgE2XvUAGvaIchJw L9l3N7Pu4FWa29XE25GA65r LXkb7M4 cCP4G0NiFPGqlzlgipzpcFC 2FONgYFHetL82Tr3agAcuRg 1pJBZhGMY1RQKvhJUaK6Qbd K7bMsLl LFEjOFOqS5AluUVwQIeoO55 5VZowLrB7NASvsoPyJ2MoYX KssOspFqD8f5E4Ba5KOKehl xk9H4Mg PjwvdHI+FW96YONeCJ58dDT nwHRbd7vwyQr0ZxRgEBEgCJ E8wZvtOUgkf5WsDVYvK64fb SOtt0Q5 IGN (more content not included)... [facility] Coding Summary HTMLBase 64 RbxivwalVSd9uZg+PGhlYWQ +OT9PPDDyG13cnKAbgS7zF4 NMTElOSywgQVBQTElOSyIgb qZrTD6aiPFlPVPm IC8+OI3jPVCkXtgzuGYth9N 8dUP3V62vul3eYYttjBH1IO TxPjKkpdfdv6creWa0JFwfV mluOyBt BVDwlX67CYB6nL64Tt54wTH xfMCjn4xppRj1EiSpBEItXO O1oZsrYYpnx6HuZHMkV20xk ZJfj2T3 YILnsIlovFKcXjCpeUO3vB4 tDCdnrhcsb6incmpxMqn9sp 83dDRkv7Z2cOV6R7GnolQ6L GJvbGQg WsygjOTPrW4nnhzag7ojurd eKmBhNTHdTZb6EVg0UEHglY yaEeMjVB36FTF8FUOdfiVaP 2FsLWFs oIstSdF6d9K8Ey9ZU3WMXwu lU8PTOGJFOHxzyUC+PC90cj 49E8EeErhdSwb8XMWlENZ9l EF4iI0l QYEbXFwhe1M7cRR4Y2YihpM icj3co7jyOSYyHToeU98csM Oge0K4CWTenDK6ATMlbQeqO iBzaG93 Oyc+CSYjaGylv1RdIrstm1j fu9hukOq3LsvpWCQgakSmbH vaZPU7s7LnUb3bERHtoHX9p UU0mQ9o HsDfGzV0DNobB021KwQnxNB nNborR43aK9TgdXB+PHRyPj y6KIAehOvkHB0gW5QmFUXoi mctbGVm pBdeUM0eKVBklpxxGIUwmP1 cENReE8s2VaIsHdQ2AKxaB7 GlVXHcmrftVl03nD1gDuObD sK6IZuy E1MhkrS0BZWnwXWySAybNHU 5F50qi4V2XALqWAHvNBY8qH E5fL2vbOgziqhikYIfpEaoi mVydGlj NOksTMibS448TOTjeGulEaH vZGluZyBEYXRlOiAgMDIvMD YvMjAyNDwvdGQ+IMIiEHX1j WxlPSAn mJDhYItxXa5myRxxiKxiRO9 qETQyabcmOBLgtG5lJXVueL PsgGwtHN0gTHKvvembi852A iAxMHB0 ILBmaSZoI7BxfA0gEvUvLCC cOXDuI5LkaOXwTInxI062YW mxAiO9XAYfnpEuY6GoFCPis WduOiB0 m0H1Hp1Dx6WsxfcrG6KdeCE aEyTaLgzlADy0Y2KdFdzwoE I+KE23BTXdQX38UDe4VAH7p WxlPSdi FYVoK7LsiF5oCjQkYCLaXVC kOyc+PHRhYmxlIHdpZHRoPS hgGCDoLeFrmInrJH2kVx8hQ GVyLWNv qAwquCJlUtFvf8mhERQcMKr qEU6xgGywY7AuzWY2DBLss0 g1Xb34G28hG2RrnXB+PGNvb AR0tFG1 yI2jNhRsCcP9MTziX931TcD iiVTlFpoiu6yct8myqRe5Ht W1CIBehqCjzGesIJB3w3PnQ j64L15t IHdpZHRoPSIxNSUiIHZhbGl okk1koI1vAg6+UYXlkFY4xW D4jT4ePsEdWnO6JKguH060J nRvcCIv Vvbji7pdu5cbeNz0EuZmDSQ nepMdxSlbUNA8s8TiXk32A8 NkcZbzo8DhPih3lq26eYChn 0W3rOJ2 X7KfIQRhitgwfGBruItsUN5 mYREsdzasHKCxoW2gFZZsM0 w4NwIwBdV0JQrpC3DuedW2W GJvbGQg AYRflPBSeH0gipize8buzdg pSeGoLUAqQOf7FYa7WISlsQ jkViRbDXN9OgA6ONT7jRIep H1lpXxs yykcfJ2fRvy+VBH0fHBujWG KNG0kWodvbWL+CEGfYAF8oD cdLFdrAQOprR2kFYXhJ2v3C iAwLjA1 MKtiA7NvakG0RLQyiLSeCWE fgYEDjV2vsecmh3tkxnbmDo RcZTFuTJi0DGd8SDUzlFvoA iBsZWZ0 FpH2YHZ8dCIxxZ0osTrfnsf nuS6jVod+KopjrRshCJV7VT b8P0HgDzi1KZDmoHcnYT7qo GFkZGlu Vd3kdCoqmElmCF4hHYRketi vh633CmHjb1hpPZGriOGnRY buMKU8G17da6F7BPEcLOVwB JT4yYK5 uI9faZwawmhcjNTopFifwfY bwVzrFUosCPxdW112HXEkjH qaXbHnDXy9W1ViRas3MVAqj IvwMP8d iWLdVXinTk0ejYohnPpkKX7 jJDFeiswcj168CfYqh3krKU IbeXVnFHlmSEO7D96xa8Z5Z CMwMDAw RIY4rSG4bW3hhRutdknkfDV mdDsgdmVydGljYWwtYWxpZ2 38ENQllPrnJqIruYb6I6YfE bq9KZGx aKfvXA9sqUZnXQscKd5pmEw pxTqkNJ1oQKXduyfak334Qv Khs0ufNKZmwIPcTYfyERQ2D 08va7D9 LWUqZSTySVP5bZX0yE8axHp nbjogbGVmdDsgdmVydGljYW hdFIliL111GZQyrIfbNoQii GllbnQg GIruAVh2F4ItVbnuiVD+PC9 6ABZfWA37bUQoaDQwl7bczH a6UfVpGRKuVLQ5sGkwKGkwj 3JkZXIt P31vuGKna8I5ASYfzLcqbRD uNgTpjME5vR8qMHtytxxtm9 hscgdeAmghi7pqrs95xJ15N 29sIHdp ZHRoPSIzMCUiIHZhbGlnbj0 kpA4dZl0+WSPthJS2yQA1tB 0cNDDeHyR7PQdhK654MfFqb CIvPjxj x5elu2aipFv4YkX9TEXprjQ dzGueKJC4j4RfWs61S85lHM dpZHRoPSIyMCUiIHZhbGlnb i6qbC0w Ii8+VJGyqPY5lOV2rI0xJoV mFpK4UFrlP525WlHlzMHbWy nkN60bM0GrnQQ+YBIiHcu6R CBzdHls ZH2prUEvKZtwCh2sFYY6NyP iIeQmAUniE7ZiWMSecrvajn qetXG6JTWjMVSroB79Ti7sj DogMTBw jNWHzN0aiaeix9eyabwlUlA lUVNeGBd1WSt5HYPbzSzxBu GqNIS8YoB8PLP0rWKntM5ev Glnbjog aV9dS2AsGQQwmogeYp41uY1 jXwBrYeZ2SAfeIfq+U0FNUy wgQUxFWEFOREVSIExFRTwvd GQ+PHRk WJE4xRdwJZdiBERxuP9vQLY eI2t1ZrLuTkD4FYbpJ3HgAU AqcddbJh96mE6eZxUmMnV4L VjwP4Kv iiX2DTLxxCAiWRqpYFX9V29 ar9S2QYOkUATfAJQ0gGY2tE 1hbGlnbjogbGVmdDsgdmVyd GljYWwt PMgwD201BLUtzSivGzCgFwO 8PtH3Pup3G1AmEjm4DHFqfH fpBC7nuLQdKVrlVh9gqIaeh HwpEJ8q IQXerkbyMGEshR4wWHGceSQ qmGcjEU0jKXLxijlop939Wb WjBLK1FTJsvEDeQ4CmrG3bD iAjMDAw LDVcQ8ExtRAiMHwzQ166KYg lRhI0KTPhfdFnI0ZbZFKpgP tnKmC9j6F0Ha85GWTFRYQmx zwvdGQ+ ACTzBVF3gQnqGJfpAJTehR9 dRLNsC8a6OySoFaQ5ZSraH8 QoYAIkinygKm56jM2rMdFdL xB5WQyf A1WhutF6OMDevXHzGWfiLXG 8E67as1N0UQBzKFSaIYM7lM I3gJ4buJglqheegOAdvDwee mVydGlj STaeWCrvY096IYUatCkjSh6 ZZUL6Q2NhDlx6CYQdsPtlXV 7ndKKhYFliGy9lyEcmnWgzN S3nEHVn hfpjVMXxfJ6fVYVlrTIkuEo oYV5rZKMarctxl983LnVpMD B9UBMivEIhP8UbmK4yHiZaW DAwMDAw F7UhdWMxPQqeC788WSwzNsK 6TYYflwOhR8CbVBWpbHwnWq S6u7A6Fj2GWRfzxVX+PC90c k59R7Ai JbuuRvq6DFXcHKI4eYZ2mG8 eTOMjJEyzh9U0oED0G1Vyxk Oizv3wc3hnAVCxZDlhL24da HGhl4X0 UHAkgQM1AEXaaZxiIwTkpF7 3Oyc+HGVamKdzb6UdJbayi7 kmo7ayePi0AbIiWVPkpxFxd WduPSJ0 j7IiWm10P04uRLvaCUTrANY pEWMuPKOmtVxduo6rjH9jPd 8+ZSPcmLM8hHW2hM3zGdQgN yX4XSlx B623UcXvzGMqDwrbn1qpp5m deLy2ZrUqWYCoyaMykJorLU W8k8HaGa84K7WvtBocy9WvT gh1aq28 kHGzs1D3iHP7C0RyJKWvvxi shSWtxUcnHY5hKWFvrfoxTR GmdL5nTLPzS2h6UdFkYpE6W CysG5Dz diU1GHGsuDZsVMLsxKQDgL4 anrxrv8neknahYyGlQCXdQJ i6MNh1GQKjhYdwJzQdMYP1K oT2UHO4 wMYtgR3ahVewhdqiuB2tLuy +ABx4a1cmuOAdJQ1irWZ9TA 15UA30kWGsc9I5aYL5S0UtX GRpbmct enufmIP5AOTqUHEtdA91No1 zdImfKs3iDWQjHJW9VSYzdN RdY6IoaK4uTrHqMWZmTUEkJ 3RleHQt IAdjY210VElqSsC4ZWPxdhY iY1IhYPYchZjzKhU0s3L0Ui 7ANC10IN18MP66gTFtk0K6j RB1M7Fk JBJkgfjdmhojvHY3XAKqGBD jfG38Ps8pmAyoXb6oNVNnYZ F9LIKsaAVfG0KinZ5bQeZrU DAwMDAw S1UirFYzBRfeZ326JXabLfZ 1MWQekfKuF6WuRNQtzAutGi D9v1I1Er2YIa96FC04CM96i KEbz9Q1 cYY0N5YtOJPxjpxjuucxvDH 2VMWeTGVsgU31Iz3hvApkJy 4bXMGoGIW2OCVjnYTpE5Fwy W3oMxKb IACjBSJoZ3EzzSTkLTfyY58 7XVjjUxX8BRBqcfCbO9ZpDI BxzHejRhR8t6X4Fk7ZNCpnt fl5A6Ve PjwvdHI+JG86GOKxFK90xMX exTXpz2anpNd4YiVkBRPpWK Y2vQmpJTtyc2LnAPIwC71gc ZBdt9D9 IGN (more content not included)... [facility] Coding Summaryon 07-11-2023 Coding Summary HTMLBase 64 DsibvkrxCLz3jLf+PGhlYWQ +CA3DXYHdL45gzSEaaZ5nA2 NMTElOSywgQVBQTElOSyIgb nJnUN1bmONtZACh IC8+OA9eGAAaCywawGScl5J 9yZC1O38zpf7hSKqpdLE5HX XeWgUmmhlmd5kttIz9UPoxJ mluOyBt SGEaqP44LDB3oO16Fl94lUX hqDPmf2wggYd9EkQjELYjBN A7oIscKHkvp6UsPJSlQ98tw FYnr1R3 SYJfoUhycOEqHwYxxJV5lF2 fDDisenfni6qtoplfAjv5ea 95kPLgw2A5zLH7Q4TmxcS9K GJvbGQg LklfzUOFuF8xhnpfr1roohz bAyGyXZQxIDi0DJq8NRNzjI ryKwNeLX73ZKN5TFUjamKbD 2FsLWFs oXmkVgZ9v2Z1We0XS9KJFxq mQ1JZSJSRTNdasZH+PC90cj 17Z3DbAlqjFmf7QXLnCSL3a VD0nE6v ZLZuMJzat8H1eBS3S3YvdaF jyr6gn6lmXPLwMGjuQ22akE Hgp8Q5RBQfhIG0AOCdmDmeR iBzaG93 Oyc+PJYehKjuv1YpNoohp2j oj7ftrUi2LnwpEHOexmMntT hkNVI1l5QyMb7yXCNiyZM4z MI5yS1w VmHfAgX6JMhvS246XeVbhHA lFuqmQ81vF3UlxWB+PHRyPj f7FICtcWzzAB1dB5NiTDCrq mctbGVm hAteIZ5rWTZzyqdvVHLfpP1 fBVYrA5u2MgWvVaC0FVngL9 EuYUQhewpgMl63sJ7zYzPkD qH0XQgg A6GlrgB8PNDveBEdYAesMNL 7Y28qk1H4DBTbQUOgQDD4rP T1gY3zuJunwvwonGRfdGigr mVydGlj QPmrWLkzQ544DSQfzOwyQkS vZGluZyBEYXRlOiAgMDIvMD UvMjAyNDwvdGQ+AMIgISZ1c WxlPSAn oFTzMMmwDe3epErlhOmhAE9 bSDLoebxvQNMelR6qNPCodJ TpgRdhCH9tQMGhzmzjc111Q iAxMHB0 JBLtkKKqG2LozX1qAoEsORV rOWZuZ7VnsBAsFXwmZ685IZ dcTcL9RGGnpaBgS7PbFTQyw WduOiB0 u7K8Js5Oo6FwodycB7TqdFK mQtXfAvgdUZt0F6PkMrahsE I+HS38AAQaHC81ZOo5GOT4c WxlPSdi CLHsZ5PayW1qTqCiACWzRTV kOyc+PHRhYmxlIHdpZHRoPS tpKVKmFtTwoGeyXS2dFi7vK GVyLWNv pHpgeAIrYlWwf7xbIQDsOFd mJV2zzIygK1OqxPS9KBTlc8 l0Cv49A18qW4PggCQ+PGNvb ON8zRB1 mP2eZkTfLaF6HHosW486IcY wzCKeYxgzt0zxx4dlzIk0Fe F5CWQssuJekGfcQPV9r6AjC h38J80n IHdpZHRoPSIxNSUiIHZhbGl wte6knS3oDw0+VSJxaES6hV T1zL7oBpDcFzU4MYklN912O nRvcCIv Hfjxj7mwi7eltPo6McSsMGJ dgnYhbLvtPTQ4y9CxKn70C4 YzvAmnd8CbSzh4rz22wTPhf 0E9eTK0 V5WeCLVnmykgkCXodMcfJO3 qGGWffwitUPPpaJ6aHIPvQ5 x5TrMqVgV4MOcvO7NfphF9F GJvbGQg GKOmgUPDeY8juihuv2msaas kYtRnSOYiEDy0CNw4EHAkjU tdNbMrECS4NpE5FZS3aAOvn Q9uiOoj guhbfA6yBcx+AMJ9yYZdlZC YYB5vSxaixSC+GSUwPSC4fN abJTkyGYXjpE6sUGIwM8s6I iAwLjA1 GVmrD2ZqelV7VYMmgNUiWPE biTEUxN9kqgsmc4vmqljsVj LpPRKvNUw3TRo4CNYfbRhpH iBsZWZ0 HzD3GMF6wWUujV3peIgrwes moC0cKxc+MaqdxBnyFKE0BQ u3E2XzGup7ZAQpxIeyYP8ov GFkZGlu Rb2htKqveXicJK7sJHUwdnr qk048NoPbg2zxGDTwxZXtVS ihTCK5S64cp5T3BLMeYKZtN CR1xCV7 bC4ucNrzwzozmPUmqKbljsW urBwiVVffAYhsL851INKghH qkOqSkDIp1P9QwKla4NQGwb LizLJ2e gOGnJPvtFj7siDqcxNktEI4 qHULakizbk948DxLig5fzJW QasPBnNSswKOM3E83fu0P9I CMwMDAw EFN7tZC4bC5qdBjoisdxuGO mdDsgdmVydGljYWwtYWxpZ2 40RWHuxQpgEsNheRq5N7PlZ gk1AAEj ePvzYW1yqFGaAOeuQz8kyQb zjEqkZZ2aZHYcjnded588Nl Cxo0ccHSHecHBkDJnbSHY1D 84kn2T3 PSJxLFDvUOE3yCS5cI8cqIm nbjogbGVmdDsgdmVydGljYW vfVVmrV749FTIssYxyOoXou GllbnQg GKexWHe3A3TbSlccpKZ+PC9 6ZWEqUB65bWCdzDGki6xtcH z9TfJgFWZxQYS8qEpxCMgqo 3JkZXIt X92odUCzl1J3IYNooMgdmVJ qSkIwnGE5bA0zYLcmjymly5 lrqeuiEemvr0rjis01yW65R 29sIHdp ZHRoPSIzMCUiIHZhbGlnbj0 rgL3gGu5+MZSitGP8fTW9qD 2bWCSmYsI9TEqwI465XxPto CIvPjxj i5vjv6lgnHt2WmU5JGHoijL heXniAUD0q7WgEp23G45rTO dpZHRoPSIyMCUiIHZhbGlnb d7wgE1a Ii8+EPWcqRV0lSN5zD9lFhZ dLxS9XYuhE907DoObpKEkHe pnX14cZ8JreCO+ZEHrXas0Y CBzdHls IB6kySQmWQvgQn0iVXW9YtY zBvHpWMrmN3NfYQOsdehclx fmtAU3CVToKVUhtG48Vg6hg DogMTBw kAFMpZ6kjeaoh6fpetwnEpS qCUHzPWa6OBy1HHHmmZbtXm OvGPB3AnW8CVK3dYIhcL4al Glnbjog fL6kX1PtCMRgunqdFj69eV1 zQuUaZwT8YDdwBeo+U0FNUy wgQUxFWEFOREVSIExFRTwvd GQ+PHRk COF3jHqqUVliSTSspB9wUIE dO5w0NtKoXiM1WFbvI7WiPE PgkpixPm17bC4jTnKpTnZ2A BabV4Ri yjE1RPWtcTJhEEdgWSJ9D94 li9P1FFTiEYBtCKK8dZU1hQ 1hbGlnbjogbGVmdDsgdmVyd GljYWwt UChrM154XQLllWzbIgIsMwU 8NwE6Nbp7W0MrSol0NIXsxD xjFC9gkGTbZRfqZh4fcIsku BfjMB8r UCIfreqsHHGvxD5gPYLmxPV bzNxtBS8yDMYvqiazs457Te UoDWV4RZZydURfV3GhwX9aY iAjMDAw UTFvJ3NxxNMuWFnvT064LVp rGeE6UKUchtPiN1FnHDEvcT gcBzT3s6O3Qh25YBGTONCis zwvdGQ+ XJZxLHL8xEqbZGlaLIQccC2 iITQbR8y9OhWtIfB7CRwnM2 ExDIApgfilWf08xA7aTjRqV gI2CPjt X1DptjE1OOSbkMPlODupDWD 6P74ve9L6WOLaHKXaOVJ9pU B8oL9stYyoxgeowVPjtVyir mVydGlj YBsmMGlpA581PJDorYpfZs3 CREJ1X4AnQhh7ZLYgzArlIR 6aeHQfPUnsUz9ewXgycQnhM K1yZZTn prjvBXDddH0tEDVjcYCxjUr nWZ5mJHNxyseoz409RwNoDB A1JCPapWRaX2EwmZ5jIwLvS DAwMDAw O3KuwLMtUJgjQ820ODkuUiA 9RWXuyhNoP6HiSHYjwDwvJz P7d5C9Uh3MXQbixCF+PC90c k68V3Zx AtrlJvm8ZTSaSAR8jWU9wF3 sAZIyQNxrx9A9pAR3I9Pvvy Pfyz8wb1itSICjPEoiY38ok FHqz2T4 SJMgaGD9ACAgzTdpDxAiaX0 3Oyc+ZARgvMvnv5YuHohcp6 rcj0irsHh6NxTuJBKvydIkx WduPSJ0 e7FbIx89T28ePJrkUZBoYBH nJVNxNNQkvTcxrv3zxB1nRy 8+DZAivQC4fMJ5mW5iZnZgJ pL0RRqz Q261FdNwxCAxAhkwc8tjd5n mzZy8EkJtWJCmieAvdSlsNN Y5v7AoSc63M8SfjGxda0VeF ge6yj57 hLFit3W0jWG0K2WuXEAvdis vuVCbiYmxFA8jJBRqqnvwMO UokJ9zRKBuF6k9IrViFvB3W TbaU5Zw imV7ELLwxCYsDEGzxVMNbQ7 kojiua2pxjujiHuErVYJmYK d9ROp9UIXvwRdwBjEqVLM9A cS8DHW8 nKZhbG4svGskmdnayC5mTgf +NLp6s2mguGQgPC1vmPS4XV 11BN93pITmq7I9jRY0J9WvW GRpbmct jtktxEC3JRGlCYZemU60Zi5 eeAmeYr6bTWLzMQP4PSCzwR VvS7IlwP7bWyUaVPNnYSPhC 3RleHQt LCkwK170WLvtBdT7ZRVcigD iP4EqTFMatKphTgK4u9B5Ri 1DVJ76JP33UE20qEPfa8E7c CK2V9Os HLBedhnhgylegGB7JHKcPLC jnQ43Cn3rjCchRp0uZLHkFU L4IGBlpLOsN4TcwB0cBaQkX DAwMDAw M0WliCTqOLhbP598YWqtCzF 9RNIydzBmT4YmATInoZlgNc D2w5F8Iu5JAl97ZQ01EK58c AVgb6X9 tZC1J7GlZGEcpmqhtgszzRS 7TPVeNCLvcJ81Mk3vuTooFm 4wKWBqPBS8WNWemNCsE2Lwz Z3pGhCt GSYlBSMlX6GraVEcBXloC97 6JZdcTfD4EHXohyWrT0YxUS MvaIprSwT7j7H6Xz1CXLxbt pq1I2Cg PjwvdHI+OR97QFViLM19nNA kvGEak9mlvWt2ZtRrITAeCW K0pTrdEFsmq9WfJLCcY57gl CNmw0J1 IGN (more content not included)... [facility] Coding Summary HTMLBase 64 OheaqquaFCc4jEy+PGhlYWQ +YT6IMPTmF91qzQRmnI9qL7 NMTElOSywgQVBQTElOSyIgb tNbIF4jmDHkJJDg IC8+XH6bPQAmEjbadAJwl3V 1cDW4M28qtk4eNDvqvML8DU MwVeYnwbobk8zgpWl9OXfoB mluOyBt KYJjpO41DGO9tY33Py19aFY xuYGar5fdrOb5NoIqHGZiJL J5iPusLKyyz2OyIUBgY78ju MTju4F0 YCTymOzhyGYxCmOafUP4mX9 uTGcdebrjw9qhkjqqWgz0eb 80lMDkb6U1yVK0Q8LvrbI0P GJvbGQg NtncrOGSwK8fljbky2svnen tAcKzXAZcZMt3HVo6ZFXuvV yxRpZsRY67JZN1HMYqvvRrN 2FsLWFs uTzyHkL0r4X2Rk9KL0AVAxt cC5OQEUXTZLhraCY+PC90cj 61X1AeIhbuZyw4NIEqJUC9s JE7aU8o BQGwBJxjk8Q5zRE1C2AhuqF hbt9tm3doKDUjXBjqW33foQ Srt2H7YETwsBH5UVFouJavG iBzaG93 Oyc+XGLuhAysq0RuEsfhx3p vq4brzYe1YslwBQPfpvSsjK tdVZB8r7CkRu6mKXDobHQ7r TZ0kO8n TdQdXiX3XIbtC508LbSzmTF xWrbzV61eB6PuyZF+PHRyPj c6LAWoaHrwQS8tK4JeTKYoa mctbGVm iTksSE8iKOMhecdhTJKcwW8 nOXBoU2n9SjDcVuX3ASftT9 FsNSDtdsjfQc67gZ2iHxYgB nS6QIju P6YuovV6IAHckNNaWTgpHFV 2X12qc2C9UEMoDOBcBTT0vK D9nD5znYlqkqmxlAVmjCqks mVydGlj AAheYGcdN471VSDhhPxnCnJ vZGluZyBEYXRlOiAgMDIvMD UvMjAyNDwvdGQ+VYWfPOZ5n WxlPSAn eRKdOKmrJi7fnTcojWmuJW5 pOREnhcvkHFJhcI1uEQGasI GqqIxqJY5zCYBjmffni971R iAxMHB0 AFYlsLCxJ6HmhW1mZjVmGVA sANCgM7BexTHsKQpeV351JJ edXdC8QJPivfDiV2VyAHRkp WduOiB0 b5B7Za9Lb8UhlkajU9LblYO oBfIdXnmeGQl7D5ShBpzvmN I+VM16AUFqXV21VBg2ISU6n WxlPSdi HCJgK7MldV3qXeCsPDLhACL kOyc+PHRhYmxlIHdpZHRoPS ftHFVlOxZbfXedWI1yWt5lG GVyLWNv xHrawXYhEwGsl1lgGTHmNPl zZS4tqEyzQ1CsdYN7QFSkl3 w2Ky14U56dY2ItmZO+PGNvb MW7cVW4 vR6uUzZgDbK4VDncY852DvP lbUQyHhxhx7ylz3qiqWl7Ai R5WPSjpxWhjGxwJDP0d1WuI x06V22h IHdpZHRoPSIxNSUiIHZhbGl hvx2edS0nUw5+BQOemRD4vF D5rY5oPrHxVbH5PKsjK808E nRvcCIv Qepdf1tal5vboKw9HuNbFWO ftbNhqVxdBWM9l1FhQj32I8 JmrEbdv2YsJhf0li04hUJma 6O4gFX7 M4TsFNMldvrpsWVflSntEO2 jLDZcndhyXSFkmB9zRTIpW9 a3PeToSjN2JIxdN7CdtuH4W GJvbGQg RHVbgADSyR5mamrgw1pvlul bVjSfOPXoCLd5ARg6XGUsqE leHjUvCTP9RhT4YAU1xWJst B3pxEfq rdmltR2tNdj+HMX4iCNreLK BZX0oBpkjmMJ+AOPmZPA5rQ inYZcuLHEesB3oMAJcW2f3I iAwLjA1 JLgfY0CbueN7VFDwgRWqWEK aoJKExV0qzjrsq5ggfowwDp SmSQXvPWs2STg7WYIehLzhZ iBsZWZ0 QmH1QRU3iXYbgR2ggYohtcp cvS0qRyg+ZitylUloMVU0CR j6Z3KxEcv7BTTdpPamYK9lp GFkZGlu Ce2vsAobzVdwXV7gFXTcnjq gu499EyGxa3swYZLlfWNkFS arIHK9J44zb1U7UIYwMBVpG EE3fYA2 gI1trMakqenbdBJrmAuptsD wjScmPQrrQFvfX315JWBslJ vtHvVxLZt5Y9IqUey5XYNmf AuyHV9c hPZdJJyhRj3ytRlvqCetMF8 iNGKsgpsjm593XwAmv0rlIK BjxIYhSCpxOZH6N16rc6C7G CMwMDAw VMT8sZF0kD8ljQorghspaPR mdDsgdmVydGljYWwtYWxpZ2 04PDWpzAdiVnHsyLt0R9FgB og8UTHm dFvgMB1rsSMuSFvaNz8adKl nvCywLI6tCHZcceuyv427Br Sbp7kxHGOqpAVdFTenHCL5C 56cc8J3 QQRuKFCuXZL3nAI4iB2yxAb nbjogbGVmdDsgdmVydGljYW omMImdZ410YOFloAujIgFla GllbnQg THfdQGu4A1FtFtrbeXF+PC9 4IBNoYK72dUXrvBTnf2pfwL n9MjTzHVUzJWQ6oOwqTNwmx 3JkZXIt U86qtTNms8A2INMouRmbeSV yWmOvjIM3vX0eILozrcjjf8 tfvjguOtmep7onah45jR58K 29sIHdp ZHRoPSIzMCUiIHZhbGlnbj0 yyR1sQa3+EAKqgVN4bNN5aG 2uMBTsShA5QHknL381XmWyf CIvPjxj z4uee1aimTo5WzR3OALfomA bnUxmUZI3k1XbJr72N65oGN dpZHRoPSIyMCUiIHZhbGlnb f0pdP9w Ii8+CGLppUT4nAB7zP3wIrW wUxU1IImcH765UuWynWRaIu mzN01mU0RfpFI+QBHpCnd7H CBzdHls VZ5esSFdIQqcDw7oHSB0RgQ xXcOcDQnkQ3CsCYClatijbi mswEY4AZIzJMNlhO44Cj7cy DogMTBw qCICvM9qqbvgv4wttlhhPiT aFTHhTUm8KHy1AOGrbDowUa LrDKJ2PuG4MHM8yDEfwW6ti Glnbjog hI6lR0NgBLKhcxbbZk63lF1 qFsAyJdR2FMwiLau+U0FNUy wgQUxFWEFOREVSIExFRTwvd GQ+PHRk PDR8iSutJPgyFVZakN0pUHT rN7o9PkVkXfK1LOgnW6FlML UpgxsvFm35vM5iAoAxFzP6L TthR9Gn qfJ2WLSjrIIeZNxqLLD7Z81 dz9T0DKIkULIeRPB0rJK1fD 1hbGlnbjogbGVmdDsgdmVyd GljYWwt WYwcN354RGCfmEjcPuTsHmL 4ObS9Obo7W2HaLxg3KOXdfF moYV3hzLIrIAjwOa2xiYqdw XpzLK4p YBZwsainNOGhoS8vOGUeyCH rvNvyIQ1dVQTwjvkgk312Wt LkPBE4JCFvuCJuH9HrmN3iP iAjMDAw BQUrO6EkkOYhUQftO277WZk gHvD8SYRkrkYeA2MjUVRtzA rwCgS1x7F5Hd13UVYXABOoj zwvdGQ+ QDPqGMC4qDoqOUehWIWeiM7 oSZQzR2z8OtLkChR8YFzhA2 NnACObmguiXm09mP5oPlHmW iG5BTsz X8PqwyS3LDIrqLNzTVkcEEM 5U23br5R1DZKvGZBmRGX5sL G9mQ8vfLpbrdremDYgwBmtm mVydGlj KPauEApfC153BYRwaInzJv5 DXCQ5G8AnOjn5JOAvpVduGU 0gwBPpSWcnWb3ixGyldCgzU E8fKZPq zypyEMHdhN1dMRQwaPBgeCk pKX0tQMAggzuju552KiIkUB Q4XYGyqLNjT2RmeM9zJfFxV DAwMDAw I2BvzZJfGAmuW437VZzxMrO 4ZHRcegNuY6KuXPUlaRktQe L9q9N1Rk8YPXqfnHC+PC90c f55P4Pf HgssBgd7YNYcRRX4zVO5fL8 vOEWrVMsvn5W7cLB1S0Pviu Bora4jm7rfFBIyBOpjG68of QKcg2D4 AKLneTJ2TZSykIdrJsPwbK6 3Oyc+DFAwgSprw5JbEyurj5 xnb9qgjCy1EtBrGSGmhvTub WduPSJ0 v7CeYe78X53eMNjjAWMdLQK nRAQdWRPybBvkny1bmZ6sRn 8+XPAfwCQ7vQK9bA2lBaXvS yL1NSqj Y845SjYrlBCqMijwg5lfe6e vnSg2HmKlNMBuspHdsVuxXS Z1f8ClWu38M5PafMlrb4DvM ge7bq70 vWSzh3M4vRQ3F0LgDYByjnw cnAUahEyuAQ4jAHYpsdreEP EjaP0dSTJaO2o9BdWxOfB3J QwlI8Tu brR9VHHnaVGiOUItgYZHsN9 njsymi2ofgqvqXxJoHYZoZV q3MYo8CBJueGzwRxDiCZF8K cH1MAI0 hLGbnT1udQnqxqawcS6mKam +XFo5p3zxyULiTH0grWI8MT 83WK62lMQdn8U0mIG0W5TbC GRpbmct srxskVR4YUOzRLArgD93Ns9 tyMsaMl6iDRSxDOG7GFCnjC ZlJ4CtyF4wFjEiGIXpOMCvM 3RleHQt SXmuO499IWfkThN8HTLhtkT zM3MwJUTybErgEcT1p3Z8Sr 1HNR34XZ10BX47lCZec9B1y OR2T2Bt UOTeuwhpgqksuQE2EJJqNRF rwL40Uk6cwJzaUh1rFXVpUX K3RIYivFDtW2LohO7aFtAoD DAwMDAw U2QekETnCZdrE238HDapBnU 9UFLjmkMeF4HdXBVhfEexSv U9d1R5Fk8KQr32FU03AI34r ZKkw0G0 xIY5E8LcSKTzwvhwopclaAS 4VVGpYMNkgC22Da2xoAtqAx 4uQQWdIMZ5TQHucKJuQ8Xtw V3kQdOu YLAyHYTxG5YzvFFmOGhpJ52 7YFjsMfG2TLDbjqEiO4IqZW MikBnjFhT1q7O4Ye2EASvzp ni2X6Bq PjwvdHI+OZ44SHBwJO86gJS iyPXmz6fncWu6BhRpZGYgAB I3wOhiLCajx9YpNKOzM18hq YVgj4L7 IGN (more content not included)... [facility] Consent Formson 07-11-2023 Consent Forms [id number] TGTIFF [facility] .Auto Diff 1on 07-06-2023 Auto Gates % 7 % Normal 12 [facility] Comment on above: Performed By: #### 1 [id number], 9212575, 5678441113, 69976652, 6550658572, 9167684706, 77819452 ####[facility] (DEFAULT)[address] [place] [address] Baso Abs# 0.0 x10 Normal 0.0-0.2 [facility] Comment on above: Performed By: #### 1 [id number], 6146191, 4567090706, 74581879, 6340842689, 1168762652, 36209575 ####[facility] (DEFAULT)[address] [place] [address] Basophils/100 WBC (Bld) 0.1 % Low 0.2-2.0 [facility] Comment on above: Performed By: #### 1 [id number], 0431609, 6568152997, 65797906, 3113805619, 7559275449, 55923729 ####[facility] (DEFAULT)[address] [place] [address] Eos Abs# 0.2 x10 Normal 0.0-0.4 [facility] Comment on above: Performed By: #### 1 [id number], 8745956, 3655249813, 32944873, 6920948407, 6139219229, 70720987 ####[facility] (DEFAULT)[address] [place] [address]7930 Eosinophils/100 WBC (Bld) 2.9 % Normal 0.9-4.0 [facility] Comment on above: Performed By: #### 1 [id number], 8648570, 4711124568, 24640674, 0098268132, 3631469340, 24363980 ####[facility] (DEFAULT)[address] [place] [address] 18552 Lymph Abs# 1.7 x10 Normal 1.3-2.9 [facility] Comment on above: Performed By: #### 1 [id number], 5796800, 6096501185, 47154485, 3731481097, 2818819940, 17168489 ####[facility] (DEFAULT)[address] [place] [address] 59307 Lymphocytes/100 WBC (Bld) 31 % Normal 14-48 [facility] Comment on above: Performed By: #### 1 [id number], 7092087, 4615680541, 14555403, 3660535264, 6986618702, 67627389 ####[facility] (DEFAULT)[address] [place] [address] 08366 Gates Abs# 0.4 x10 Normal 0.0-0.8 [facility] Comment on above: Performed By: #### 1 609205296, 5427178, 7069363778, 85741372, 4083182441, 5107707928, 28774170 ####[facility] (DEFAULT)[address] [place] [address] 46324 Neut Abs# 3.3 x10 Normal 1.5-9.2 [facility] Comment on above: Performed By: #### 1 [id number], 0479791, 7385000424, 62385001, 2243821904, 8131962214, 40078044 ####[facility] (DEFAULT)[address] [place] [address] 71895 Neutrophils/100 WBC (Bld) 59 % Normal 44-88 [facility] Comment on above: Performed By: #### 1 945470203, 2701248, 1204159428, 67092291, 2312223171, 7135724559, 28096243 ####[facility] (DEFAULT)[address] [place] [address]5929 BNP.on 07-06-2023 Internal Control Pass Normal [facility] Comment on above: Performed By: #### 1 [id number], 6443102, 3480673810, 48153076, 2498375171, 1238058966, 02531239 ####[facility] (DEFAULT)[address] [place] [address] 05384 Natriuretic peptide B (Bld) [Mass/Vol] 6.5 pg/mL Normal 0.0-100.0 [facility] Comment on above: Result Comment: BNP results greater than 100 pg/mL are considered abnormal and suggestive of patients with CHF. Higher BNP concentrations measured in the first 72 hours after an acute coronary syndorme are associated with an increased risk of , myocardial infarction, and CHF. Performed By: #### 1 [id number], 2706642, 1528231324, 45115116, 2234217245, 7913743669, 60273950 ####[facility] (DEFAULT)[address] [place] [address] 78645 CBC w/ Auto Diffon Erythrocyte distribution width (RBC) [Ratio] 13.0 % Normal 11.5-15.0 [facility] Comment on above: Performed By: #### 1 [id number], 7499058, 0808971272, 96299104, 0441707678, 1116862639, 83803706 ####[facility] (DEFAULT)[address] [place] [address] 25750 Hematocrit (Bld) [Volume fraction] 43.9 % Normal 34.8-51.9 [facility] Comment on above: Performed By: #### 1 [id number], 3607436, 3215708368, 05634858, 1985241205, 0836217530, 23750203 ####[facility] (DEFAULT)[address] [place] [address] 54685 Hemoglobin (Bld) [Mass/Vol] 14.9 g/dL Normal 11.8-17.7 [facility] Comment on above: Performed By: #### 1 492168184, 8096934, 5699949321, 56561159, 0355423979, 1047302105, 97331954 ####[facility] (DEFAULT)[address] [place] [address] Man Diff? Auto Invalid Interpretation Code [facility] Comment on above: Performed By: #### 1 [id number], 7751847, 8012379221, 71312836, 5407321289, 2236998730, 45175197 ####[facility] (DEFAULT)[address] [place] [address] 98412 MCH (RBC) [Entitic mass] 29 pg Normal 24-34 [facility] Comment on above: Performed By: #### 1 424517845, 2846404, 2148815245, 51565228, 6871432562, 5576124638, 67441984 ####[facility] (DEFAULT)[address] [place] [address] 11850 MCHC (RBC) [Mass/Vol] 34 g/dL Normal 26-37 [facility] Comment on above: Performed By: #### 1 439350323, 1786538, 2197873531, 19588610, 4515216762, 4232571252, 89936317 ####[facility] (DEFAULT)[address] [place] [address] 42688 MCV (RBC) [Entitic vol] 86 fL Normal 81-100 [facility] Comment on above: Performed By: #### 1 683269939, 1442394, 4657667975, 65222625, 9550886573, 0144830853, 39460314 ####[facility] (DEFAULT)[address] [place] [address] 57411 Platelet 100 x10 Low 138-427 [facility] Comment on above: Performed By: #### 1 482215558, 7670143, 3158608031, 36173211, 1154831485, 3307562582, 76481476 ####[facility] (DEFAULT)[address] [place] [address] Platelet mean volume (Bld) [Entitic vol] 10.9 fL High 6.3-10.2 [facility] Comment on above: Performed By: #### 1 306757871, 3748305, 8053617704, 58518694, 6013328183, 6346761038, 38343925 ####[facility] (DEFAULT)[address] [place] [address] RBC 5.11 x10 Normal 3.70-5.30 [facility] Comment on above: Performed By: #### 1 494415587, 7772945, 2240583455, 54526207, 7483878652, 9289336523, 08573152 ####[facility] (DEFAULT)[address] [place] [address] WBC 5.6 x10 Normal 3.5-10.5 [facility] Comment on above: Performed By: #### 1 190875279, 5678566, 7410144604, 60449579, 8643218536, 5245443611, 21717072 ####[facility] (DEFAULT)[address] [place] [address] CMP Standardon 07-06-2023 eGFR Non AA >60 Invalid Interpretation Code [facility] Comment on above: Performed By: #### 1 194421893, 2840882, 4001818929, 26664302, 6443298561, 8939842629, 32935771 ####[facility] (DEFAULT)[address] [place] [address] eGFR AA >60 Invalid Interpretation Code [facility] Comment on above: Performed By: #### 1 580747502, 0787454, 3140793987, 79546042, 9403152802, 8510585765, 75223095 ####[facility] (DEFAULT)[address] [place] [address] Albumin [Mass/Vol] 4.1 g/dL Normal 3.5-5.0 [facility] Comment on above: Performed By: #### 1 940802743, 0141684, 8843939638, 31108266, 1067953764, 3419474455, 24565252 ####[facility] (DEFAULT)[address] [place] [address] Albumin/Globulin [Mass ratio] 1.4 {ratio} Normal 1.4-2.6 [facility] Comment on above: Performed By: #### 1 663591400, 0698024, 6413355411, 72963888, 1285034726, 4226835688, 37687741 ####[facility] (DEFAULT)[address] [place] [address] Alk Phos 56 IU/L Normal 32-91 [facility] Comment on above: Performed By: #### 1 912395735, 1608986, 9208614772, 93669018, 0420211427, 8493811797, 32818910 ####[facility] (DEFAULT)[address] [place] [address] ALT [Catalytic activity/Vol] 73.0 U/L High 17.0-63.0 [facility] Comment on above: Performed By: #### 1 154330210, 6340521, 9716198496, 76592592, 9938760941, 2671982286, 46774957 ####[facility] (DEFAULT)[address] [place] [address] AST [Catalytic activity/Vol] 41 U/L Normal 15-41 [facility] Comment on above: Performed By: #### 1 107932927, 4732680, 1483662987, 64104285, 2329031122, 1163455864, 66489782 ####[facility] (DEFAULT)[address] [place] [address] Bili Total 0.7 mg/dL Normal 0.3-1.2 [facility] Comment on above: Performed By: #### 1 740839717, 8717576, 2271006093, 10777533, 5917409040, 9236748743, 99749224 ####[facility] (DEFAULT)[address] [place] [address] 89532 Creatinine [Mass/Vol] 0.92 mg/dL Normal 0.90-1.30 [facility] Comment on above: Performed By: #### 1 342827795, 1944746, 2664380584, 29971121, 1599764817, 3276275199, 74797139 ####[facility] (DEFAULT)[address] [place] [address] 63811 Globulin (S) [Mass/Vol] 2.9 g/dL Normal 1.5-4.3 [facility] Comment on above: Performed By: #### 1 369815371, 2175977, 9845255955, 03889619, 4822940957, 3023792850, 86111667 ####[facility] (DEFAULT)[address] [place] [address] 11067 Osmolality 284 mOsm/L Invalid Interpretation Code [facility] Comment on above: Performed By: #### 1 [id number], 8815186, 6635316932, 42039945, 7545666551, 6963046973, 58430613 ####[facility] (DEFAULT)[address] [place] [address] 20769 Protein [Mass/Vol] 7.0 g/dL Normal 6.5-8.1 [facility] Comment on above: Performed By: #### 1 370092044, 2545353, 4475870922, 04306220, 3479122231, 2593526302, 64747749 ####[facility] (DEFAULT)[address] [place] [address] 47994 Urea nitrogen [Mass/Vol] 25 mg/dL Normal 8-26 [facility] Comment on above: Performed By: #### 1 601113042, 8433463, 2679361611, 30038345, 4104469049, 1825900423, 16294256 ####[facility] (DEFAULT)[address] [place] [address] 65809 Urea nitrogen/Creatinine [Mass ratio] 27.1 mg/mg High 4.6-16.2 [facility] Comment on above: Performed By: #### 1 049051515, 4367714, 2105944532, 66930847, 2744438583, 7510462721, 48736958 ####[facility] (DEFAULT)[address] [place] [address] 47477 Anion gap [Moles/Vol] 9.7 mmol/L Normal 5.0-19.0 [facility] Comment on above: Performed By: #### 1 [id number], 6186927, 0223557417, 19073664, 0881207694, 5206866556, 22375832 ####[facility] (DEFAULT)[address] [place] [address] 20041 Calcium [Mass/Vol] 9.1 mg/dL Normal 8.9-10.3 [facility] Comment on above: Performed By: #### 1 722006765, 1913962, 4385784190, 65468371, 0671800447, 4852352567, 95484944 ####[facility] (DEFAULT)[address] [place] [address]398 Chloride [Moles/Vol] 105 mmol/L Normal 101-111 [facility] Comment on above: Performed By: #### 1 [id number], 1322620, [id number], 57323043, 8457031323, 8708280909, [id number] ####[facility] (DEFAULT)[address] [place] [address] 23222 CO2 [Moles/Vol] 29 mmol/L Normal 21-32 [facility] Comment on above: Performed By: #### 1 [id number], 6089188, 7770547183, 58824536, 5273875466, 7486960497, 87772366 ####[facility] (DEFAULT)[address] [place] [address] 20902 Glucose [Mass/Vol] 112.0 mg/dL Normal 74.0-118.0 [facility] Comment on above: Performed By: #### 1 [id number], 7054604, 6474509682, 03009012, 8791211359, 2744478698, 11384561 ####[facility] (DEFAULT)[address] [place] [address] Potassium [Moles/Vol] 3.7 mmol/L Normal 3.6-5.1 [facility] Comment on above: Performed By: #### 1 [id number], 5902112, 6237371300, 38790210, 2787463471, 6651871118, 84169285 ####[facility] (DEFAULT)[address] [place] [address] Sodium [Moles/Vol] 140.0 mmol/L Normal 136.0-144.0 [facility] Comment on above: Performed By: #### 1 [id number], 7616958, 5589042080, 42925539, 8397665213, 1043662746, 81771232 ####[facility] (DEFAULT)[address] [place] [address] Breakpoint Chem Normal [facility] Comment on above: Performed By: #### 1 [id number], 0443546, 7591948386, 85013220, 8148850193, 3658634864, 31242784 ####[facility] (DEFAULT)[address] [place] [address] HgbA1c Standardon 07-06-2023 .Hb 16.8 Invalid Interpretation Code [facility] Comment on above: Performed By: #### 1 [id number], 6372504, 2910944994, 73979870, 4922371649, 3379816147, 81278995 ####[facility] (DEFAULT)[address] [place] [address] .Hgb A1c 0.66 g/dL Invalid Interpretation Code [facility] Comment on above: Performed By: #### 1 [id number], 3268998, 9713124028, 01688139, 8266232366, 9231510348, 85578745 ####[facility] (DEFAULT)[address] [place] [address] Glucose [Mass/Vol] 117 mg/dL Invalid Interpretation Code [facility] Comment on above: Performed By: #### 1 [id number], 0560839, 0722670029, 51108165, 2478953535, 2834807910, 18121330 ####[facility] (DEFAULT)[address] [place] [address] 72316 HbA1c (Bld) [Mass fraction] 5.7 % Normal 4.6-6.2 [facility] Comment on above: Performed By: #### 1 [id number], 3063579, 8247104698, 39360097, 0417184552, 8607942029, 03446351 ####[facility] (DEFAULT)[address] [place] [address] 52531 Iron Profileon 07-06-2023 Iron [Mass/Vol] 79.0 ug/dL Normal 45.0-182.0 [facility] Comment on above: Performed By: #### 1 [id number], 7017639, 0290162952, 85347581, 2590142399, 6708797586, 81644004 ####[facility] (DEFAULT)[address] [place] [address] 20712 Iron Sat 20 % Normal 20-55 [facility] Comment on above: Performed By: #### 1 [id number], 3605254, 9208938058, 70936622, 3641398863, 8480902158, 32138655 ####[facility] (DEFAULT)[address] [place] [address] TIBC 402 mcg/dL High 250-400 [facility] Comment on above: Performed By: #### 1 [id number], 6045333, 7815681118, 93797151, 2347446364, 4085871594, 68916610 ####[facility] (DEFAULT)[address] [place] [address] 00949 Transferrin [Mass/Vol] 287.3 mg/dL Normal 180.0-329.0 [facility] Comment on above: Performed By: #### 1 [id number], 7618583, 7214851727, 32028932, 0255952774, 5505066081, 39299022 ####[facility] (DEFAULT)[address] [place] [address] 66767 Lipid Panel Standard, Non-Fa stingon 07-06-2023 Cholesterol [Mass/Vol] 154.0 mg/dL Normal 66.0-200.0 [facility] Comment on above: Performed By: #### 1 [id number], 5101540, 0812897587, 29085969, 3181238151, 6928210827, 10730524 ####[facility] (DEFAULT)[address] [place] [address] 92016 Cholesterol in HDL [Mass/Vol] 35 mg/dL Low 40-71 [facility] Comment on above: Performed By: #### 1 170855572, 0075021, 3771814640, 84790139, 8784855428, 4931597097, 27302049 ####[facility] (DEFAULT)[address] [place] [address] 34733 Cholesterol in LDL [Mass/Vol] 83 mg/dL Normal 1-100 [facility] Comment on above: Performed By: #### 1 046562987, 3010283, 6875488046, 73039963, 9287673643, 0116868694, 46911945 ####[facility] (DEFAULT)[address] [place] [address] 45070 Cholesterol.total/Ch olesterol in HDL [Mass ratio] 4.3 {ratio} Normal 0.0-4.5 [facility] Comment on above: Performed By: #### 1 [id number], 2485941, 0107707569, 53181420, 5799207637, 7401928985, 32682473 ####[facility] (DEFAULT)[address] [place] [address] 57309 Triglyceride [Mass/Vol] 177.0 mg/dL High 0.0-150.0 [facility] Comment on above: Performed By: #### 1 [id number], 7583523, 2403145422, 25074457, 5946806503, 8942647213, 47004100 ####[facility] (DEFAULT)[address] [place] [address] 08310 VLDL. 35 mg/dL Normal 5-40 [facility] Comment on above: Performed By: #### 1 [id number], 1963887, 8805152127, 75129161, 3168074578, 5194486766, 48628674 ####[facility] (DEFAULT)[address] [place] [address] Provider Orderson 07-06-2023 Provider Orders [id number] [facility] US LE Arterial Duplex Bilate ralon 07-06-2023 [...] Augusto Mensah MD 07/06/23 4:09 pm Technologist: [facility] US LE Venous Duplex Bilatera patel 07-06-2023 [...] Augusto Mensah MD 07/06/23 4:07 pm Technologist: ,[facility] Coding Summaryon 07-01-2023 Coding Summary HTMLBase 64 VzebpykhKNv8cKc+PGhlYWQ +HK5WHRMwZ27ieULxhR4xE2 NMTElOSywgQVBQTElOSyIgb mHeXK5brCIuORJf IC8+DU4aYFXwJipgjGCfn9U 6rDA4C86sfp8wKEhayLE5SY ClVgJnpadfx4clwFh6DVtsT mluOyBt KRHhgX15IFF7kL77Fv62jKW vqSGsk3glsFm9CdIuOGWiKM A0vQfoDRapw5ZyYSOsH05ar YSls1U6 UXJwiNwekQQrPdCyzJH7bN5 tNOvoxdzrx0sorfesYic4ls 14mCKfn2E3yJO9V4VmcsY2O GJvbGQg LxcqtFXWmL0uakyen0gjagr uWqTvWKWmHPe4OMx0YUUexD vpUpTmTT87UBB7IRXmdgLwH 2FsLWFs rDadRbS3m8Y7Rz5UX1MPCuq oV0XYBJDRKEuknZV+PC90cj 86J6RxRxwdVse1VADwIUV1w SJ7mG4l NTYkZUlid2N1vMD0T1SczmW qrx3cn3eeXMYaLGjbA40bfG Twk6K6RCQssOC5MTPqcGsuJ iBzaG93 Oyc+CMRrpLmqv5AxUwkpu5c he1fmsHu3ScdfMILuutTfoB xqDMW9f8YfTh4mJYDkwVH5f XS8oT3v ElStHgZ1OIzsY856BhHhsHY cRiajG22hT8YgdHI+PHRyPj n2JDWndQgzEN6pO6XnWTHvn mctbGVm xLujKX6nZDPxaphcNBMjyT9 hDXIvA1t4ZuAsGoG5RAzgU2 NeJAMnzbjiUz66rZ8iSiRbD dM3MNcm N1DmuwO7WXYanXEiZCgxFHN 5E00xm7Z4KYWaGXUjKXT0iC T4kI2wdHoensfppKZrbHtag mVydGlj DZhnOUpaQ663MZFyqElmAbE vZGluZyBEYXRlOiAgMDEvMj YvMjAyNDwvdGQ+AJQeSSA9g WxlPSAn fXWhSYsyHt6kpNgyiSojRI2 kTCUpwokcNLYyqY7yXREtaJ SxaTbaHA0gWKKykwtfx619D iAxMHB0 JXYloSEoT0EpfW4qJqCdXPF tEVHrC8GaaEWcDTwdZ082BH zaYaV1EWWmquXuN4RrBRRhq WduOiB0 w8S7Ji1Ts8VwgjhxY9SpmPT mGjLlTzpbHNv7V8YmCdiibF I+FE42LWUjLZ01PPx9AOV0h WxlPSdi DYZdF6FzxT4uCoCxAGHfSUE kOyc+PHRhYmxlIHdpZHRoPS wzFKFrPdShvZvvWV3gVa0yA GVyLWNv fUgqkEGhFlGtu6zjZUVcAWp jKA6mqEuvH5BtmIU1ITIoj6 w5Np68G66yU0SnqWQ+PGNvb LI5qLD5 yQ0oQlHyFfI5GSlpQ888LfT vdDDhSfzbc9hkk3pssZc5Ti N2WKYyoqEhwEfzYOE2b7AyY c56H30x IHdpZHRoPSIxNSUiIHZhbGl hmf0erA3gHr4+CHNpaHS9gD D1fP7lZeDySaP8BPsrR921E nRvcCIv Tlngn3nzr8tmoSd7IxHuLKI haiJqfNboHWG7m7EmBm53F9 CyeNoko6OzMjl9oa32aKXsm 7D8tEI6 C1XhACOwdpxhbDVlnUkuYU9 kWWNtbcaiCMZqaK9mBMTsJ6 x7TqFtReM0BMikE3OsddI5L GJvbGQg BXSijLGRaH9xcyorv6sqsnu rZhHjEAEoCNp0IHt9VPBmeP khNmElAFX9FxI4RJF1eSMri M2lgFmb rxewdT0oCuw+OMS5oIHlqUY DAM7fJlgvfYW+UDQgICV5fT zlHIbdVPAdrR9rPQCuX6d8P iAwLjA1 MLtuV8ToshN1OXVmuTYoQAZ mcZECtH0nrzhwv2febkdwXd BeZMKpWDs1KQw1YXOedVeuK iBsZWZ0 SbI5BGS1oTPmpO5hoCnzago acR1jMxu+GutfsMvpGGH0XC n7N4FoLlh0WWUwuDcpYA5zi GFkZGlu Dz5bdFrdaFxzZA6kCRUfhvw kc009WsDfi8stGXCelIFcGS dpYFX7S77ml5S0QAQhWNBrI AQ9nQQ0 sE2kqCjytynxhAWyaBbscjY diOyoHUrgJTwcA815AWTjxM fuZmUqVKq2W0ZlIin3MMLal EejQM7h rBDoVIhvLr2tsRfhuJfbAK8 tYTLpmjpod933ZqIue3kpFN LbhCEbPYjkEED0R24dw1R0X CMwMDAw OXK3fMM8fO2nnRjnplwkyOT mdDsgdmVydGljYWwtYWxpZ2 80LBMdxBuoMgRruMq8B4EnY cy8SDAn kWagXY3zwVAnQBhoOu8voEd bwZvwZC7xQVUferkoy427Hg Auv3niTGHuqUIfCMomIPP2S 60ss7V3 CHIxEGZjNVR3fUE7wF0fsVr nbjogbGVmdDsgdmVydGljYW rtTMigV042HAAvqRsjVaLns GllbnQg JIiiJYi5G2ZdCuvspLK+PC9 9EMDpDV58lCEmnKTwo7togT n4BiOtQNAoTRT0kDrqCWcjf 3JkZXIt U14gsVMfr2P5IOSiePtbwDQ yXuJupGK3xI9aVHrovvotn0 qcsoffAwazi3pkvu70xO40N 29sIHdp ZHRoPSIzMCUiIHZhbGlnbj0 uqK1bRa9+FMPueYQ7fUP3bG 3uJYMeEkN1JPuhS487XtCqn CIvPjxj k8eia9lfgPe7NgT7YKZtcpK jmJgvOPQ3b4XfCt42Y82hEK dpZHRoPSIyMCUiIHZhbGlnb z9tkY9t Ii8+VPUtcBC6dWT7xU0fOeK bKiG9EBpbK069FbCnxOVtCi ptC15fB4NgzBZ+UQAjMti2I CBzdHls HN8aqPCzOEnpXr3tJJH4SuF tHiQhLOgqD1SyKZPtmsibue iyxRN1ICZgTUYdbK85Uo5ye DogMTBw cYPBxS9shxcoq5thoxrlCvK jOREnVMk5BQv5WEHvdJnoEz KlJUU6RnW3XMU0pSZpaG5jx Glnbjog uP0hE8OeMHEcocrcIj35mV7 nEbXyFbN4EMsoMzg+U0FNUy wgQUxFWEFOREVSIExFRTwvd GQ+PHRk VPW9vSllNNpnPJIzrU6gFOE mY2y5UiAxDbU0RYloZ0VhFI JromhlCw06oA0oCtGaUyN3H TqtW1Fg weT4GZXkgDIuJPvpCNK1U68 xd6D0QVWrXBLzIBS3mPQ6uC 1hbGlnbjogbGVmdDsgdmVyd GljYWwt EFhbF539VQPfbVcxRhVrOwJ 9WqZ3Nke3G9VnJwt9BEHlmP pgTD1muZKqNWciJi2ncGwym RkoQR4d VYSfyddxWMOhjD9pKCRenYC zfVxwDO6cIWLrqpyki109Te MnCMX3IIQeqMXzC9NdgT8nP iAjMDAw OAGoT9QdpFMmPYpdK752CEl oHmC1LZIctsOfF0ByFENpdB xnKgX2u3C0Iq58UISZWVWbl zwvdGQ+ SYIkFTI5nRumRRbpMTTydE0 dWBYaN0y5TrDfJkS5FKfuT3 MdVHHikqviUr22rM4xYlBgN qW9SYyj R9VjciI7DAKpaAJeXZhjMQV 4E10nn2K5XNZpZENnCON4yH M5bV7zaBucdimmhGJgaBfob mVydGlj OIseDLyaX108EAWvqXflMt1 LTKB7Y0NxSku2UUXiaAmlFK 1fxPZzRUebNz3mbFxzyXxrN U7sXNQk mdyzIRXgpB5dBYLajATisPz sBM0vKQJcuvppy719MsBtIX W4EZDawYSjU3YubD9jSvPzG DAwMDAw Z8QqzPHvQVmlC401YTetQcO 7YJSbtdWkC1AwWDBdlMeiRn N3b1A5Wh0CWPfhnHV+PC90c j64A8Zf KzhkVso1PLRrMOY3uPM8wH9 jLTGuLTtkt3E0wZS7H1Zsoi Kddt6ra1qkOVHfFIrcT01wy DCzz1G6 XANkpET4DLJcgMrzYfVuvE9 3Oyc+SWNznRkvv3ZnNaafc6 jjr3mvcDh0CvZbWFMpvaPan WduPSJ0 p3AhRy17F77oDLmwRWQxABA kISUdGQCuhNvxev5qmU5uQj 8+WRSakIL5hEG0kF9rFlYsY tZ1HOoc Q045CcMsdALtDyimw2ybu9z uaLr4BxMnBAGjbdKslLcfPY D2l1NuHk43P2PpnNumq6ViY fl4qv65 aHGgl4D5xGB8F0TrKSLnnqw oeHWomQrpHL5qQXMgnqcnAF FkgS9xUHXmE3i1ZeWvWzN8M GhjL4Yk xgK7XQJbsKAvMFRbuKASfU5 scodzw0tzemunMzMkBHDoQD w8JMj6WFFyqRzbLqYqYXN3V iT9JRD0 lMJubB6etHaeoxzilL0rJvt +IMb9h4ngcRDzPF1nwAG0XY 02HE36uXFkd1E5fPS6I3DkU GRpbmct cnshzCO3VKCpBLFlhT01Ml2 snAdvVl7aIGBgHZF4BWWngC CoD1OvaC2hZmPrTKRiZJTxE 3RleHQt ULlqY726DYdfIiP0QJFipqN uP4VbPNHujPsdPzT2g2P0Jv 6FYU57SU28EY30nQBib8O7u YA3Z8Xi MVDighqiqyyovBI5PPDrPDH zfR13Hj3ghCdmFl4uRAWzRM B7IJXzlKSeG5UzaL9iJhDeF DAwMDAw P9XjmRVfOEnkB865CGqbNnI 0LEPldhSjA0JoMEPcdAzsUc S7w0K3Sq8KAz94DW47AS25k CZkn3J1 fTC7P5XvOHVvhcyafzabgSI 9JQZxMRClfH73Sh1jiGysBv 2nBLZtNLO6JJAdrTWmG6Bpy S9tOrFq YEMiIZRfZ3VkrGSoTWyiV07 7BJcfNuS1RHDoyeUbT5ZvKH VauQqtBmA7l9Z2Rq2AHDxse be5J9Gt PjwvdHI+SJ95KWOvXD56fKB khYHwa1ebqAj3ByTzOQVbQW G2hAnpVYnlp6AnINMbB99lk PFxd2Q4 IGN (more content not included)... [facility] Provider Orderson 06-24-2023 Provider Orders [id number] TGTIFF [facility] ED Clinical Summaryon 2023 ED Clinical Summary [facility] ? Urgent Care [address] [place] [address] Clinical Summary PERSON INFORMATION Name: SPIKE NIELSEN Age: 43 Years Sex: MALE : 1980 MRN: Acct#: Visit Reason: UC - Skin Problem: simple; RIGHT LEG WOUND CHECK Arrival: 06/16/2023 13:33:24 Discharge: 06/16/2023 14:24:00 LOS: 000 00:51 Check In: 06/16/2023 13:33:24 Checkout: 06/16/2023 14:24:00 Address: [address] [place] [address] PCP: Provider, None PROVIDER INFORMATION Provider Role Assigned Unassigned Anila Rubio RN ED Nurse 06/16/2023 13:35:32 Reno Ogden ED PA [...] verbalizes understanding of instructions given Comment: Normal [facility] ED Patient Summaryon 024 ED Patient Summary [facility] ? Urgent Care [address] [place] [address] PATIENT DISCHARGE INSTRUCTIONS Patient Information Name: SPIKE NIELSEN Age: 43 Years Date of : 1980 Reason For Visit: UC - Skin Problem: simple; RIGHT LEG WOUND CHECK Arrival Time: 06/16/2023 13:33:24 Primary Care Physician: Provider, None Attending Physician: Rneo Ogden Comment: Patient Education With: Address: When: [...] at home: Medicines ? Take or apply iisw-jko-ietmdpl and prescription medicines only as told by [...] streak s (more content not included)... Normal [facility] 024 Urgent Care Record [facility] ? 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 It is important for you to follow up with a doctor, nurse practitioner, or physician?s admin assistant for ongoing care. If your symptoms [...] so we can reach you if necessary. [facility] has provided you with a complete list of medications post discharge. Please inform your audio/video technician/provider of your visit and for further instruction on these medications. Any specific questions regarding your chronic medications and dosages should be discussed with your primary care physician(s) and/or pharmacist. New Medications [facility] [address], [address], [place] [id number], [phone] mupirocin topical (mupirocin 2% topical ointment) 1 [...] Diastolic Blood Pressur (more content not included)... [facility]ozia 04-14-2023 [facility] Telephone ([employer]) SPIKE NIELSEN ([id number]) 1980 M Date Time Provider Department 04/14/23 FADI ROBERSON During your visit today, we recorded the following information about you: Fadi Roberson, FRANCIA 04/14/2023 5:14 PM Signed [facility] COORDINATION TELEPHONE ENCOUNTER Pt mother is helping him. [facility] [place] with call back number Allergies As of [...] once daily. 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 - B Complex Vitamins capsule Take 1 capsule by mouth once daily. - pz-arv-wduwg acid-lutein (CENTRUM SILVER) 400-250 mcg chew Take [...] Encounter Status:Closed by FADI ROBERSON on 04/14/23 [facility] 01-28-2023 [facility] Telephone ([employer]) SPIKE NIELSEN ([id number]) 1980 M Date Time Provider Department 01/28/23 FADI ROBERSON [facility] During your visit today, we recorded [...] once daily. 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 - B Complex Vitamins capsule Take 1 capsule by mouth once daily. - aj-eqk-bszba acid-lutein (CENTRUM SILVER) 400-250 mcg chew Take [...] Encounter Status:Closed by FADI ROBERSON on 01/28/23 [facility] Coding Summaryon 01-26-2023 [facility] HjdjeduiVCx2mMh+PGhlYWQ +WS6KZXOkT18ufWKchC2bP9 NMTElOSywgQVBQTElOSyIgb qDwOP0kcJPwHNPs IC8+TF7bDVDbSnttaNZqt5Q 3hJG6P79bfx9rJOjomSG9DI WmIwEupcoyz5orkOn1ZRfvQ mluOyBt AMUswV64MKN2sF42Vd80zXA kqRJxn6bxxPk2LnUuHNOyTY A6hAycWSjnw1MiVSTuI74mu CWnz3B1 NVXhqJmklBCzXjWaoVH2lM9 wDMerlcayv5qvuwtwRqp8on 77nDYaf6N6jBS6K1OfboK0S GJvbGQg LoezaKECdW2gkkafj6cthmw pQaNxWERbVAl7LQn3ACGolR ouRqWuMJ78YCQ1QKOtecBgT 2FsLWFs nRiwMkU9j8B9Wh5ND0ZZXsr bW7BHSGNHMNtafUI+PC90cj 06E8CsHmjeUpb9WMKdNDV1d FT4tC6e RFQtSWgwg2N7aRT4O6RzfoU qhg5me3gxHGWrRXbjW25ceQ Tnj4J1OWIisIT7FRCmhWnnR iBzaG93 Oyc+KYVbqFubh9FvSxmld4o nd4tvfIg8XcldPFKvbrBwvO klAMS1k6HzXt6yEEWgfRX8d MD2nZ3o UyLoPfX0HZtoN796OeCjsNR aUxpvK72kF9TyeTZ+PHRyPj w2MCZvtVvpCR5oQ7VvBMQri mctbGVm xGyvYK5xPUWqzrwpTRQfcM2 pPADoH7j8FuKzMwP7ZTtkZ4 ToGNWrmyepZi97dM7wPlHeD yC8CYdh U8JwfwC2YRAeoMRsGBqqLMP 0V37jf6B6EHVgCITxWZK7cR Z3qD5unAghellrwTEeySzaz mVydGlj IJywOZvaH438LPEwuPukXmN vZGluZyBEYXRlOiAgMDgvMj MvMjAyMzwvdGQ+YOLyXTT2p WxlPSAn fVAjULooEa3tbQiqfTfdOZ1 tHZBoohraNZXqnK2iYWBbvW YloFkjRJ8uGURamwaki282G iAxMHB0 RCHusMZiG2RymN8fQmEfTDY jUTScF7IchOZuOLbfK416XE doQsS1HSNiguKmV7EyLBHva WduOiB0 z6M7Qu7Fl7KaiqjlJ6IhsHO aWlKcArbnBJk3A9YgWcgxcS I+DG68VXTnKK16ZHk2VIB4g WxlPSdi LJVbQ9SpwB3xEgHzAXLmOFP kOyc+PHRhYmxlIHdpZHRoPS toMCTsGvKkwJtrJK1iXf4eM GVyLWNv zTrwiSXwRwDwv2kxOXLiSKg pFD9ynNojX0BouBR7RBThc5 e0So56F66pK0BkcDU+PGNvb LU0jNX2 zN2xEnYzAnF9OOotY231YoR xzEFzCwmxa0irf4jwuMe5Bc P7PLOmaqCdfPbbPRH6d9BkH i93A19s IHdpZHRoPSIxNSUiIHZhbGl tsg2kdA8sVl1+EUFkvRZ4sL E4pJ2mEzXfErD1ZWmyN464P nRvcCIv Lyrsd3wbf3wysVh4ZpMrVOO mvlLnuOhnBOH9m2TlSp62M4 KbwMloi2KnBdk5qb81iDNvu 2V4dAX9 O0CwWKCjsiprjKNtbIisPH1 yBVPzvpjsCRRipR6zIPVxG3 i9CwUjMpM9BDovO1VfixA7D GJvbGQg PMXlsOJTrO1vqzwgw7tyywv fNyQfKSShIDw6SLe2TRXjjA fwFlZySYU7BzT6KLR9mAWuj V7mpAfq udejyB3eTvh+MHW6mUCdhQG SCF8pKyjjbUD+YXCyIJT9gM uqYBuiJTPigR2gSCRjJ9q9D iAwLjA1 ZJxfQ8KgixH8FFKfwMHzRZD isNHXfW1omtefs2avxlhcXd WwWSGvOQl1FXa1MOUkeHawR iBsZWZ0 DfD2JMB5oFDzqG5eoJztaeq oeI7uRce+DdqgiXbjUID0TW b2Y0FdCnx7OSXsjLydUT7nd GFkZGlu Uy6xjSvvbCehLD4nPKVzauq mr844CyAhv4xiKRYqsHBiLB avNMP3Q34lt8P6BEVzHOYuN KR5oBI4 gT5laZxiylqlhXDvkLrvmlG rfItjNGswSUqaA694VYMglU mjCtFoPGw3N0FcSex3HCMjt CaoUZ7k oODgZHvgCp3mkKslhJoySF9 xAYDrnaxiy315KpTkg6ccCM VipQBpBOepFPI4K59aa5N0B CMwMDAw BND9pSL7gA5sxTolwqwaxEC mdDsgdmVydGljYWwtYWxpZ2 47PUFsoRegAhUnxOm0U5NuQ zn9WLTs dRoeUB3jlWQpGTwdBz1ceTu azStgLX6yMZPjbugjb323Sr Emz3fgGWVdcXCjEEhkEFD8F 40yc9Q7 CFPnEIWsVTS9lGZ0lL9gxDt nbjogbGVmdDsgdmVydGljYW acSTdtC816DOItxSozWqZid GllbnQg VTzwMNc1Y9HiVgrmvEJ+PC9 4VTMuJO66zSFguYXko5rqsY e9OiPwEOEnEOS9gPwcAHdwf 3JkZXIt H36thQZim1M8HMUtpMjafSJ wXcAqnRC8vO1hCDvnrgsgg8 kakvwdVagxq7pkzd13tK91K 29sIHdp ZHRoPSIzMCUiIHZhbGlnbj0 pdD8vXm2+GICaaXA3qJI9jJ 5fZRXbGiM0CZtkD262XrZkg CIvPjxj b6lmb3aprRz5FzC9ZPCthpF haXieKST5w4YeTh62H04zKK dpZHRoPSIyMCUiIHZhbGlnb h0kkX0w Ii8+NSCnaZS6aNV3hW2gVvN dPwC8KAdgL140LqDzxAUgSy veT12tU1UnuFS+RGBdXsd3I CBzdHls BX2uqIJkQXkqIo4bIHH6JxE zHuIrPNpeY3JxPYFixgosgf alrMA5HERoKNAgoM27Hx5ei DogMTBw hHRFeG9yalbba3iaqlqyLfP xVWMhSSc9XPb2JOWytIawTk GmBVW2XwU1NMS0eIIbaE8jl Glnbjog lW5xL5JsDQIzzvczNg69kL7 gShCkImM8VHgaBbx+U0FNUy wgQUxFWEFOREVSIExFRTwvd GQ+PHRk MEX0nLbgMHomDGCrsQ1pQYM xC1i2SkCtFrJ8ZXgpV6RrIT FiuqjuTv12yW0iZyJmOjX6B PxrO0Jy fiX0THDxvFVzVZwnGDE6B13 ou4B4LJZrRODhSLX0jBS1pU 1hbGlnbjogbGVmdDsgdmVyd GljYWwt AVvwE046LYQaqFyyAiWcOpO 7DaT7Ftq2P1XnSoq6UEMpqW bvKN2uqIQqDUnqHf7aiOaev XilDG6m FCUkvqpjFNIwqE2tAAOpkOA cbQthOZ3aMNScansnm640Kv YsWGC7OBOxoFWkH7BblS6uL iAjMDAw QIOrI6RxxEAcYUjtQ960UXn uQgN2BWOrykIyA0UyUUDcbV xeCkG7b6K0Rd85MWGCZYYon zwvdGQ+ IYTnGER7dZerDUorZJXggW0 fMZHwL5p6TfAfVyN3XWjzS3 BlJKTnrohwFm71xX7cDlSrO qN8TTou A7XiapL0XKHqxGJqUYieNFT 6E05ey0Z5FGGsJQAjZME1gK O5nD1ncJjzahfjpVHiaHoob mVydGlj SRkgPLfiY174ENIvoRguQs5 JUUE4I3GbAra9PWAcyAzoEP 9idOAiKVdsNa9pgKdgfJjaK V2eYENt pagvOSEqnO9lMTZdjCVchIj sAP4uOQDkqclto688DxLbCI Z9MRBisPIsS1NvtD0nGjHgZ DAwMDAw C2YsoXNaGEdiP882GXfbHeZ 2CCQzasAoC1FyDGCobVssLw F9s8P6Bp2HbKDjB2OwZ5f5R 3RkPjwv dHI+QL87ZVCgSR34hIApeUR hp5fnfYl0AvJsSJVoJIW9mW wmPPanx1LyXDXwP72vnPKkq 6D6VOOm nTaybVCpTyRueDF5vO3wTNe wtblqh1tdiauxHubgp2xlet 02uD39B88yJUqjQYArNRXjF CUiIHZh cEhhsu1mtT0uOl1+PGNvbCB 0hZR7iZ6bRuQdTtM9IWisO1 80GsXvbJBjVffey1dcv7whp Hc8DhVd LVPcolRooBraKKT1q6HsCw1 6L75gKSybKXJmMNZcINAoOT QmwSrfqm1hwU0sEl8+PC9jb 9mwqs55 eP53iNI+CJHiFNM6jDcrLJr rBCWwkO0jATrkHiA9VHFzHf AldO63tDKpXQguVi8goZfrx NzzDZ9a DENadhpmx700AdZex9kmUIT trXMtVUdhIKS6S69qd7Q7TZ TpSUSwNLD2wTF6zE7jfAuhc jogbGVm bQstirUvnKyyPFlnHBuzT02 9JIWpuErkAhDamAEvD4hogp XNVD7xIfjqlLR+FMVqBJS0d WxlPSdw ENKuyT4vUEBqR8t6NrFuJzV 1KRrhW7IecuV8MHGtbXDoCD XmhWQUhF1zyenty2edwqhjM zAwMDAw QAa7LVr2PTVraGcjLvBxZYG 3CaZ6ISE5kPOctI0pnWmuwb gexD7oWle+RklOOjwvdGQ+P HRkIHN0 wLpiAIezVMXqmI3mRZEwC7f 5UzIlWbK6JYncA9FsfhO6YP RxtGPkVTFtfZHYyZ7tykvyr 2xvcjog BzGnUBNpGKs1ZVj5PFXxeLe uKwIsUVT0MlO4WSM2mLLgtC 7kcZqmzmogbE0jEob+TVJOO jwvdGQ+ MGYvWQB4lZozFFkaNZHafZ0 xICEtS5t6NeFzVwA2YUxpQ1 LcqdZ3CSQjoLXtZQVwuUDPf Q0sxykl s8ftsorbQoZdTXEvRJa7DUy 5PYUofTqtFnOcIAE8QuW7XK S8zRWbvH2pkUqsjkvdvX3qN yc+UGF5 EPG0NC95HR70E0PtHqgzhSS ibGU+PHRhYmxlIHdpZHRoPS ujEMAdEkVdwIqpYE4rIl6vN GVyLWNv bGx (more content not included)... 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 - B Complex Vitamins capsule Take 1 capsule by mouth once daily. - gg-nyw-ddvln acid-lutein (CENTRUM SILVER) 400-250 mcg chew Take [...] Encounter Status:Closed by MINAL PUGA on 01/22/23 [facility] CNOVon 01-20-2023 CNOV Office Visit (GENSMN ) SPIKE NIELSEN ([id number]) 1980 M Date Time Provider Department 8/17/23 8:30 AM SAM CROW During your visit today, we recorded the following information about you: Temperature Pulse Blood pressure Weight 97.2 degrees 62/minute 148/63 170.1 kg Height 1.803 m Gallardo Paulesa 01/20/2023 8:32 AM Signed What is the reason for your visit today? consult Who is your referring physician? Dr. Crow Are you having poor oral intake? NO Have you had unintentional weight loss of 15 lbs/7 Kg in the last 3-6 months? NO Bowels: diarrhea Wound: clean AND dry Temperature: No Drains: No Wilman Zahraa 01/20/2023 9:13 AM Signed [facility] - HISTORY AND PHYSICAL Chief Complaint: [...] mouth once daily. 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 B Complex Vitamins capsule Take 1 capsule by mouth once daily. te-igm-konnb acid-lutein (CENTRUM SILVER) 400-250 mcg chew Take [...] not in (more content not included)... Normal [facility] Coding Summaryon 01-20-2023 Coding Summary HTMLBase 64 LlidzrhuXLt3eEb+PGhlYWQ +WK3QQATqQ09frZVecM3wX3 NMTElOSywgQVBQTElOSyIgb tDxBR4xbYOfOUOs IC8+SN1xWBJnAtjjqLFct4B 6xOJ0C10ype5cLJwfrJD5ZV PqKrZqvxlmf8sjlUy3SEkdV mluOyBt TUMwtR83ARX4xC53Ht86pFH zjJBfe4vgxWz3IjDaLQKiVO U1cZfeCNwfg6IfOHPzM51gn DMsu8S4 GQUxoGpvxJKqPfJqxAG0wT2 nAZgabscjc2ebbbbyAjk3sy 58jVVfy0D5wAS8W4FftmA6T GJvbGQg AtyzdCVFaA5xmcthi7qsoye iYsWzOZXyLLm8HAg6QXCcxV xcFcJkFP47ICW0AICttsTsL 2FsLWFs sXtaOcZ5k0L0Sw4SF6NAPbd xC9OHKXWAGZbsnCB+PC90cj 53N0XxJgbhGag0ZLJkZUR6r EA7eU2i FVQeLKqiw2Z8tWI0I0WyysR bov2nh3ohATNtVYbeC52etM Htn2I3JJUvzGW1OPLvhMjqQ iBzaG93 Oyc+OVZfhRnia7GeWqttg2b ai7werXy9LyqtASRdtxSrcP vlILI4t0LrXb1pQHIwoDM8f VU6oI1r BbXdGnL2SUvoV303UuRxzEM dQmcaP34dZ0GkpLA+PHRyPj d0QLElxPfzEW8wP1NsHKOxy mctbGVm bNylTX5qWJDfknqwKEGoqI6 rGDHlN0e1OzMzRjI7XCxnK3 FoBIUoqeppHe51cR3bPhWbU hW1ZCtm K7FfiaL6DHBhhOCjBSwyUIK 4O85qx6S1RLQhMYTdDWS9nG B5oH8osYykncwymVBuvRjcu mVydGlj QGfbMWazC659WKBkyNldPwL vZGluZyBEYXRlOiAgMDgvMT cvMjAyMzwvdGQ+ZVGoSQK6i WxlPSAn nTXqDLcrMn8lqPfbrXoqYN8 aGEEjqnjzCMTrgA5yUXCmkC TpaEjfND9aZBAynnraq217F iAxMHB0 RJPkiJWkZ2TvaM2dZyUaBAU vOIZmX7MbsMFbJRdjK780JF tjOlC9GTAjdmJtL3TsXJXze WduOiB0 a5V4Th5Op0UrwwofQ8QkwTB iJiTgPzxbHUp8P2BwJocidD I+YE05JFCaMV33LVb3WWB8r WxlPSdi DGQuG3EsqG8gVyYhUKPjETB kOyc+PHRhYmxlIHdpZHRoPS njDPFxSlUidKxtKI0mPl5nZ GVyLWNv pEfkqGAbAqYoy3afNTYpAPo kVS6elCfwV0SasYR0WUPpy5 z8Pt80F11iY3TueZR+PGNvb LS3fIS2 cY0oGzWoRpB9JVebW207IeG ucWCzQougf8mdn7sotZt8Vl B7QMRhyyPzuKpeHOD7o2MqN y98C58f IHdpZHRoPSIxNSUiIHZhbGl vje1whS3dRa9+DJVzlEP9wJ Y0fQ6xNnWyRkV1IFkqA363F nRvcCIv Lvxea1nyg0jawMj2EaQnSFX fxnPpeWsbNOE7i3KsWq69I8 JshUvve2AeEml3jr47xTWpz 4M4kAX8 I7JlQCVfossbtFXitEbiHB2 xMRIqjslcVJNfqK5sURCsE2 j4AuGgIkT8ECtjH0ZjsaE0I GJvbGQg LKXkmXOXfA1idxlnu8qyvxu jArWrWZCuKUi4QBr0DAJbvL hwQyAuQFO8PwW3ACI1tVFut K0bnQih qzdqdC5wKpx+CHD2lWIxeQW VQL7fSabilJY+YVRdYPN4cR lbYDfoVHPihI0tFGXeO3o3N iAwLjA1 XWpnR6JlgaC2JHMhkKCoFIE yeAOCxS2vfdmtg8cofbhfWq ZcPOFkRVa4NGq9XIUimWbnF iBsZWZ0 EfW5VPE8oWVqfY5mhLbdjcb esJ7xVsr+DtzgtFfqJNE9CF x6K5JzFuc9GMHoeDrgAY2lp GFkZGlu Fg6djQnduHizVX0dSGPzqny ev097ZwQdr8luUHObwVBsSD ijJUP1I28ob2W1EVFmQHLaV AI4pBD0 pU2seVsfnrjfvBEhyYordjF mdHcoCMugQPfmM322WDZrsC hfWoCePLp9P3BbIgw9IHWty IzkDO2d aEUiGBggNn5fpOqsfSkhZN1 hBFAanfkwi935SzQko4nvIH UnfSJrBLbuWQC7A90ew8X6G CMwMDAw XEH2yCI2tW9lqUrmrxojxCI mdDsgdmVydGljYWwtYWxpZ2 16PQArxBwiLxAonGa4W9LuD eq0RYWg uOvuVC3lxJEhYQilLt1ueVa seWtfAE1yWLYyqdlar959Lv Pqr5zoMVGjwIZoZSyjENQ3M 03qu6K3 UDLjYFSyTKF0zRL5hR0cbFo nbjogbGVmdDsgdmVydGljYW ztYIusG584GJOolMeoPsEow GllbnQg MZqfXFl1Z4XbAkhefTO+PC9 0QZMlOJ11wUNgpYIki8bvwK a4LqSkCBTaKXE2lFdaILmpq 3JkZXIt S64xvTAmr1V1DNWtuYopgAO aDwNsfNJ6wN5dFQtvkftht6 buvngkShpcg0znda99hK65J 29sIHdp ZHRoPSIzMCUiIHZhbGlnbj0 srX4aAe5+VYEgbAX0jLQ6yJ 3jCJFyTgE0TMoqO294OoSjf CIvPjxj l1ezu1pagBr4BaE1MZBtvtW nkOjeXDO3r2EiVd47C53lDK dpZHRoPSIyMCUiIHZhbGlnb x8enF9m Ii8+HQVeuLN5uSV6wZ3wOhW tSiK4BCqlG221BaHpvADwTv zlJ54oH3AinOP+CKNxKzq3S CBzdHls NA7keVZxTYpxIn0lHPA1QnO kPzKsXLifN9ZjWOSqfenprx agrBE4EKHkMXNlrK57Xf2qb DogMTBw mPPCgD9hwfxrt9uionnfOuR uSDOwEMf3VZr4YIWayIwhIn OjGKO9JgM5HAZ5xYJzvZ0yf Glnbjog rD3qR7HeIMWwoecoSo74dN4 bIgNzZpD0KZhbUoz+U0FNUy wgQUxFWEFOREVSIExFRTwvd GQ+PHRk LSR9bMkqHPbdYSNtoV9wLTH uB2g3HvOnEoY7YYlnS2DkZZ DczjnqXz52xS6oCbItPnO6W RfhJ7Hx ymY8MXHywVYkEGodAVT6C88 sh3M9GTUuGPAeSUN9gTF5dB 1hbGlnbjogbGVmdDsgdmVyd GljYWwt TGstK485OSWrxBnbQnYnExF 4KqJ4Fjz3C8MkVxy0KXEzuJ rnKG5eoBUuZUagHu1nmVnxz MmeBB6v FHUwlbahNWVywV9fFFBomTN mfKrcNV3zZSUxryhfh688Gh PfOKR9AMWfgUMbU8QmkL6zO iAjMDAw WUDkC5QpdBCpBTxjH699JJw eOlC8AVTqaqEzM8BlRMFwlG xmGsY6h7D0Ct65GTEARGEer zwvdGQ+ PPOpCVU2kIpsXQesZZZrsP6 pGBSbM8u0TkXsFuA6RFcaX6 EpHNVtaebpLb36qB7sGbKuW sV8BBsz G9HyfbR1SNAyjVFxOVieEIR 2H78cq6E3EDCiYBHtSFP9xC Z2zP4blFjjpjhdsPRovTmyv mVydGlj YTjtXCtuE926UJEauPifXd8 YWUS5E0AdZgb0RFVauOgoER 5jqYHuMEcmBs1zlGzgcSdwT M3oXIMw prvgCZAryC4zTZSovGQmzVq yJV9rMOSptgltu695JaXmCE J4DLOskTCbT4IzhB9kUoPxC DAwMDAw H7YtlDZwOGgnL709PZxrGbD 5BZGpwqPmG3DaYZKgyXjiBq F3d1Q0Iw2VRFyhzCM+PC90c s45P3Lr UpawJip3SOWoKYQ9hVK4cN1 fFYAzDNweu2M2fXO5Q7Mgqw Qsvq7ez9uaEOHwKUlxE58mm IWre5Z7 YFOdjBC3TEMuiQfvNnMnfM9 3Oyc+ABUxwGdto3ReDwnmf3 pil6veaGg6BbQlIZSdhzYqq WduPSJ0 z1UmYt00L78tEIqmAPGyUVX eBBRtDRKagRxnkd3lkR5dJa 8+JVCxmTJ0fTP3xB0iQuTaZ nC1FEaa R091YaZrdGSiBortt1yxq7d kdUc6VdArUYYjseBrsQhsWW A4k2UlQu43N9HjfWszv8VoL iu8lu82 rATcs0S1xFF8Q9XeLUKxwpa ioUCrcSrwKT7aZOVmeqiiIE GptO8oDRXhS5p3LqYqMkH3L JjmS1Mk nuT9PJMmpKNpTEXlmTEVzM8 qkmjxw7itnzvfCyBmOQNkRO x1RTs0EWPccVqgMrDsTVN2Q uC5LYG8 hZJjhK1nfBzypyhfxY2aSdk +TNi8v4beqELmBD7qbAR4BV 42FG59mNWec4Z0tCH2B7QvG GRpbmct ekayqNJ3HMWhEBJxeX13Rf8 tfXlaSd6zIMEiLUX3BZXhyR QuT7EenA7wHxBkKKPgSEOyQ 3RleHQt LCxtH551CGfrMaV4TXPywmV aJ2RlQHZseBegEmD4x7M4Vf 9DNG88PC17ME36gRWsx9L5m WR5H3Lu DYLmpgqtarirbTY5WLZjQJQ qbY02Tu7kjXgxBm8fLTLxSQ B5ASSqmZWqD7IzjZ6cEcMjB DAwMDAw M9SnvGTiRScrH765UFjwBqT 6QVXetnFsX4PsCOKxeVzmUs Z2b8N8Qg1ZNi95HE14WO02c VLyp3C9 zAZ6M8MdBETnnrcystenvAV 1WMOiWPPdeB57Xx2tcNrcSt 3sXAUwKAQ2NQVdiKEvD8Qhb P4tJoOi FBSlGVYmZ7BliTYrNAnvY93 0KDgbYgN7ZHIhasTqT1WfAD JwyXgwQpT3t2A2Yy0VGYbbp pi2Y7Nt PjwvdHI+NW50DKLzRT51bCX duWJua0ysrMz3MrPcNVBvHE Q2zRjfSYfrr5GhWWTnY06tm BUjr7O0 IGN (more content not included)... Normal [facility] CT Abdomen/Pelvis w/o Contra ston 01-19-2023 [...] MD 01/19/23 11:35 a Technologist: Aman ZAVALA [facility] ED Clinical Summaryon 2022 ED Clinical Summary [facility] - Emergency Department [address] [place], [place] [id number] ED Clinical Summary PERSON INFORMATION Name: SPIKE NIELSEN Age: 42 Years Sex: MALE : 1980 MRN: Acct#: Visit Reason: Ear pain; Chills; Hernia; CHILLS, BODY ACHES, L EAR PAIN, PAIN WHEN BREATHING Arrival: 01/15/2023 06:31:06 Discharge: 01/15/2023 07:45:00 LOS: 000 01:14 Check In: 01/15/2023 06:31:06 Checkout:01/15/2023 07:45:00 Address: [address] [place] [id number] PCP: Provider, None PROVIDER INFORMATION Provider Role [...] a previous hernia repair by surgeon in [place]. Stated that he has appointment to follow-up [...] 1-2 times per year Other Comment: POB: [place] - 02/26/2019 15:28 - Carmen Jama Substance [...] tobacco user 0 (more content not included)... Normal [facility] ED Note - Physicianon 2022 ED [...] a previous hernia repair by surgeon in [place]. Stated that he has appointment to follow-up [...] 1-2 times per year Other Comment: POB: [place] - 02/26/2019 15:28 - Carmen Jama Substance [...] abdomen, gr (more content not included)... Normal [facility] ED Note-Nursingon 01-15-2023 ED Note-Nursing AAOx3. SANTOS. Skin warm,dry, pink. REspirations regular, even. C/O ABD pain over his ABD hernia that is ongoing and is 10/10, but states he3 has had a fever and body aches. Has left lower leg redness. PMS intact. Breath sounds CTA bilat. Mom at cart side, interacts well with pt. Normal [facility] ED Patient Summaryon 023 ED Patient Summary [facility] - Emergency Department [address] [place] [address] PATIENT DISCHARGE INSTRUCTIONS Patient Information Name: SPIKE NIELSEN Age: 42 Years Date of : 1980 Reason For Visit: Ear pain; Chills; Hernia; CHILLS, BODY ACHES, L EAR PAIN, PAIN WHEN BREATHING Arrival Time: 01/15/2023 06:31:06 Primary Care Physician: Provider, None Attending Physician: Kareem Sanchez MD Comment: Visit Diagnosis: Diagnoses This Visit Cellulitis (L03.90) Cellulitis of left anterior lower leg (L03.116) Chills ([id number]) Ear pain ([id number]) Elevated blood pressure reading (R03.0) Hernia ([id number]) The Pharmacy at [facility] is open Tuesday through Tuesday from 9A [...] and/or drug addiction problems; contact the [facility] 27/12 Crisis Hotline -Text 1JXOX fr [phone]. If you received any narcotics, sedation, or [...] legal documents With: Address: When: John Olmstead [address] [place] [address] Business (1) Within 5 to 7 days Comments: Contact your assigned on-call doctor for a follow-up appointment if you do not have a local family doctor or PCP. Alternatively, you may also follow-up in the Urgent Care at [facility] if you are not able to [...] and treatment you received today in the [facility] Emergency Department were for an urgent problem and are not intended as complete care. It is important for you to follow up with a doctor, nurse practitioner, or physician?s admin assistant for ongoing care. If your symptoms [...] so we can reach you if necessary. [facility] Emergency Department has provided you with a complete list of medications post discharge. Please inform your audio/video technician/provider of your visit and for further instruction on these medications. Any specific questions regarding your chronic medications and dosages should be discussed with your primary care physician(s) and/or pharmacist. New Medications [facility] [address], [place] [id number], [phone] cephalexin (cephalexin 500 mg oral capsule) 2 [...] day. hy (more content not included)... Normal [facility] Provider Orderson 01-07-2023 Provider Orders [id number] [id number] Normal [facility] CT ABD WOon 06-23-2020 CT ABD [...] caval space similar to prior exam. Normal [facility] CBC w/Auto Differentialon Anemia TIMBER SIZER Normal [facility] Comment on above: Performed By: #### C BC #### [facility] [address] [place] [address] Anisocytosis Ql (Bld) TIMBER SIZER Normal [facility] Comment on above: Performed By: #### C BC #### [facility] [address] [place] [address] Basophils Abs. # 0.0 K/uL Normal 0.0-0.1 [facility] Comment on above: Performed By: #### C BC #### [facility] [address] [place] [address] Basophils/100 WBC (Bld) 0.3 % Normal 0.2-1.0 [facility] Comment on above: Performed By: #### C BC #### [facility] [place] [address] [place] [address] Basophils/100 WBC (Bld) TIMBER SIZER Normal [facility] Comment on above: Performed By: #### C BC #### [facility] [place] [address] [place] [address] Bosophillia # TIMBER SIZER Normal [facility] Comment on above: Performed By: #### C BC #### [facility] [place] [address] [facility] [address] Eosinophils (Bld) [#/Vol] 0.0 10*3/uL Normal 0.0-0.2 [facility] Comment on above: Performed By: #### C BC #### [facility] [place] [address] [facility] [address] Eosinophils (Bld) [#/Vol] TIMBER SIZER Normal [facility] Comment on above: Performed By: #### C BC #### [facility] [place] [address] [place] [address] Eosinophils/100 WBC (Bld) 0.2 % Low 0.9-2.9 [facility] Comment on above: Performed By: #### C BC #### [facility] [place] [address] [facility] [address] Eosinophils/100 WBC (Bld) TIMBER SIZER Normal [facility] Comment on above: Performed By: #### C BC #### [facility] [place] [address] [place] [address] Erythocytosis TIMBER SIZER Normal [facility] Comment on above: Performed By: #### C BC #### [facility] [place] [address] [place] [address] Erythrocyte distribution width (RBC) [Ratio] 13.5 % Normal 11.5-14.5 [facility] Comment on above: Performed By: #### C BC #### [facility] [place] [address] [place] [address] Hematocrit (Bld) [Volume fraction] 41.8 % Normal 36.7-50.6 [facility] Comment on above: Performed By: #### C BC #### [facility] [place] [address] [place] [address] Hemoglobin (Bld) [Mass/Vol] 14.0 g/dL Normal 12.4-17.3 [facility] Comment on above: Performed By: #### C BC #### [facility] [address] [place] [address] Hypochromia TIMBER SIZER Normal [facility] Comment on above: Performed By: #### C BC #### [facility] [address] [facility] [address] [place] [address] Large Platelets TIMBER SIZER Normal [facility] Comment on above: Performed By: #### C BC #### [facility] [address] [place] [address] Leukocytosis TIMBER SIZER Normal [facility] Comment on above: Performed By: #### C BC #### [facility] [address] [place] [address] Leukopenia TIMBER SIZER Normal [facility] Comment on above: Performed By: #### C BC #### [facility] [address] [facility] [address] [place] [address] Lymphocytes (Bld) [#/Vol] 1.0 10*3/uL Low 1.3-2.9 [facility] Comment on above: Performed By: #### C BC #### [facility] [address] [facility] [address] [place] [address] Lymphocytes (Bld) [#/Vol] TIMBER SIZER Normal [facility] Comment on above: Performed By: #### C BC #### [facility] [place] [address] [place] [address] Lymphocytes/100 WBC (Bld) TIMBER SIZER Normal [facility] Comment on above: Performed By: #### C BC #### [facility] [place] [address] [place] [address] Lymphocytes/100 WBC (Bld) 26.9 % Normal 17.0-45.5 [facility] Comment on above: Performed By: #### C BC #### [facility] [address] [facility] [address] [place] [address] Lymphocytosis # TIMBER SIZER Normal [facility] Comment on above: Performed By: #### C BC #### [facility] [address] [facility] [address] [place] [address] Lymphocytosis % TIMBER SIZER Normal [facility] Comment on above: Performed By: #### C BC #### [facility] [address] [facility] [address] [place] [address] Macrocytosis TIMBER SIZER Normal [facility] Comment on above: Performed By: #### C BC #### [facility] [address] [facility] [address] [place] [address] MCH (RBC) [Entitic mass] 29.2 pg Normal 27.0-31.0 [facility] Comment on above: Performed By: #### C BC #### [facility] [address] [facility] [address] [place] [address] MCHC (RBC) [Mass/Vol] 33.5 g/dL Normal 33.0-37.0 [facility] Comment on above: Performed By: #### C BC #### [facility] [place] [address] [place] [address] MCV (RBC) [Entitic vol] 87.0 fL Normal 80.0-94.0 [facility] Comment on above: Performed By: #### C BC #### [facility] [place] [address] [place] [address] Microcytosis TIMBER SIZER Normal [facility] Comment on above: Performed By: #### C BC #### [facility] [place] [address] [facility] [address] Monocytes (Bld) [#/Vol] 0.3 10*3/uL Normal 0.3-0.8 [facility] Comment on above: Performed By: #### C BC #### [facility] [place] [address] [facility] [address] Monocytes/100 WBC (Bld) 7.1 % Normal 5.5-11.7 [facility] Comment on above: Performed By: #### C BC #### [facility] [place] [address] [facility] [address] Monocytosis % TIMBER SIZER Normal [facility] Comment on above: Performed By: #### C BC #### [facility] [place] [address] [facility] [facility] [address] Neutropenia # TIMBER SIZER Normal [facility] Comment on above: Performed By: #### C BC #### [facility] [place] [address] [place] [address] Neutropenia % TIMBER SIZER Normal [facility] Comment on above: Performed By: #### C BC #### [facility] [place] [address] [place] [address] Neutrophils (Bld) [#/Vol] TIMBER SIZER Normal [facility] Comment on above: Performed By: #### C BC #### [facility] [place] [address] [place] [address] Neutrophils Abs. # 2.4 K/uL Normal 2.2-4.8 [facility] Comment on above: Performed By: #### C BC #### [facility] [place] [address] [place] [address] Neutrophils/100 WBC (Bld) TIMBER SIZER Normal [facility] Comment on above: Performed By: #### C BC #### [facility] [place] [address] [place] [address] Neutrophils/100 WBC (Bld) 65.5 % High 43.0-65.0 [facility] Comment on above: Performed By: #### C BC #### [facility] [place] [address] [place] [address] Nucleated RBC (Bld) [#/Vol] 0.0 10*3/uL Normal [facility] Comment on above: Performed By: #### C BC #### [facility] Include [address] [facility] [address] [place] [address] Nucleated RBC/100 WBC (Bld) [Ratio] 0.0 % [facility] Comment on above: Performed By: #### C BC #### [facility] [place] [address] [place] [address] Pancytopenia TIMBER SIZER Normal [facility] Comment on above: Performed By: #### C BC #### [facility] [place] [address] [place] [address] Platelet mean volume (Bld) [Entitic vol] 10.7 fL High 7.4-10.4 [facility] Comment on above: Performed By: #### C BC #### [facility] [place] [address] [place] [address] Platelets (Bld) [#/Vol] 91 10*3/uL Low 148-402 [facility] Comment on above: Performed By: #### C BC #### [facility] [place] [address] [place] [address] Poikilocytosis TIMBER SIZER Normal [facility] Comment on above: Performed By: #### C BC #### [facility] [place] [address] [place] [address] RBC (Bld) [#/Vol] 4.80 10*6/uL Normal 4.13-5.69 [facility] Comment on above: Performed By: #### C BC #### [facility] [place] [address] [place] [address] Small Platelets TIMBER SIZER Normal [facility] Comment on above: Performed By: #### C BC #### [facility] [place] [address] [place] [address] Thrombocytopenia TIMBER SIZER Normal [facility] Comment on above: Performed By: #### C BC #### [facility] [place] [address] [place] [address] Thrombocytopenia. TIMBER SIZER Normal [facility] Comment on above: Performed By: #### C BC #### [facility] [place] [address] [place] [address] Thrombocytosis TIMBER SIZER Normal [facility] Comment on above: Performed By: #### C BC #### [facility] [place] [address] [place] [address] WBC (Bld) [#/Vol] 3.7 10*3/uL Normal 3.6-10.8 [facility] Comment on above: Performed By: #### C BC #### [facility] [place] [address] [facility] [address] Comprehensive Metabolic Pane patel 04-21-2020 Albumin [Mass/Vol] 3.7 g/dL Normal 3.4-5.0 [facility] Comment on above: Performed By: #### C MP #### [facility] [place] [address] [place] [address] Albumin/Globulin [Mass ratio] 1.4 {ratio} Normal 1.1-2.5 [facility] Comment on above: Performed By: #### C MP #### [facility] [place] [address] [place] [address] ALP [Catalytic activity/Vol] 70 U/L Normal 54-112 [facility] Comment on above: Performed By: #### C MP #### [facility] [place] [address] [place] [address] ALT [Catalytic activity/Vol] 94 U/L High 13-66 [facility] Comment on above: Performed By: #### C MP #### [facility] [place] [address] [place] [address] Anion gap [Moles/Vol] 9.1 mmol/L Normal 8.0-16.0 [facility] Comment on above: Performed By: #### C MP #### [facility] [place] [address] [place] [address] AST [Catalytic activity/Vol] 33 U/L Normal 3-39 [facility] Comment on above: Performed By: #### C MP #### [facility] [place] [address] [place] [address] Bilirubin Ql (U) 0.37 mg/dL Normal 0.00-0.99 [facility] Comment on above: Performed By: #### C MP #### [facility] [place] [address] [place] [address] Calcium [Mass/Vol] 8.8 mg/dL Normal 8.2-10.0 [facility] Comment on above: Performed By: #### C MP #### [facility] [address] [place] [address] Chloride [Moles/Vol] 109 mmol/L Normal 94-110 [facility] Comment on above: Performed By: #### C MP #### [facility] [address] [place] [address] CO2 [Moles/Vol] 31 mmol/L Normal 21-34 [facility] Comment on above: Performed By: #### C MP #### [facility] [address] [place] [address] Creatinine [Mass/Vol] 0.71 mg/dL Normal 0.50-1.17 [facility] Comment on above: Performed By: #### C MP #### [facility] [address] [place] [address] GFR/1.73 sq M predicted among blacks MDRD (S/P/Bld) [Vol rate/Area] mL/min/{1.73_m2} Normal >60 [facility] Comment on above: Result Comment: Certified Ophthalmic Assistant eliana Kidney Disease less than 60 mL/min/1.73 m2 Kidney Failure less than 15 mL/min/1.73 m2 Average estimated GFR by age: 40-49 years 99 mL/min/1.73 m2 Performed By: #### C MP #### [facility] [address] [place] [address] GFR/1.73 sq M predicted among non-blacks MDRD (S/P/Bld) [Vol rate/Area] mL/min/{1.73_m2} Normal >60 [facility] Comment on above: Performed By: #### C MP #### [facility] [place] [address] [place] [address] Globulin (S) [Mass/Vol] 2.6 g/dL Normal 1.5-4.5 [facility] Comment on above: Result Comment: CO RRECTED REPORT: Previous result was 2.7 at 13:04 on 04/21/20 Performed By: #### C MP #### [facility] [address] [place] [address] Glucose [Mass/Vol] 112 mg/dL High 65-100 [facility] Comment on above: Performed By: #### C MP #### [facility] [address] [place] [address] Potassium [Moles/Vol] 4.1 mmol/L Normal 3.3-5.1 [facility] Comment on above: Performed By: #### C MP #### [facility] [address] [place] [address] Protein [Mass/Vol] 6.3 g/dL Normal 6.1-8.2 [facility] Comment on above: Performed By: #### C MP #### [facility] [place] [address] [place] [address] Sodium [Moles/Vol] 145 mmol/L Normal 132-145 [facility] Comment on above: Performed By: #### C MP #### [facility] [place] [address] [place] [address] Urea nitrogen [Mass/Vol] 19.2 mg/dL Normal 3.2-26.9 [facility] Comment on above: Performed By: #### C MP #### [facility] [address] [place] [address] Urea nitrogen/Creatinine [Mass ratio] 27 mg/mg High 6-20 [facility] Comment on above: Performed By: #### C MP #### [facility] [address] [place] [address] Hemoglobin A1con 04-21-2020 HbA1c (Bld) [Mass fraction] 5.6 % Normal 4.8-5.6 [facility] Comment on above: Result Comment: Pred iabetes: 5.7 - 6.4 Diabetes: >6.4 Glycemic control for adults with diabetes: <7.0 Performed at: [facility] [id number] Jewelry Setter: Romulo Peng PhD, Phone: [phone] Performed By: #### H A1C #### [facility] [address] [place] [address] Lipid Panelon 04-21-2020 Cholesterol [Mass/Vol] 121 mg/dL Normal 0-200 [facility] Comment on above: Performed By: #### L IPID #### [facility] [address] [place] [address] Cholesterol in HDL [Mass/Vol] 37 mg/dL Low 39-96 [facility] Comment on above: Performed By: #### L IPID #### [facility] [address] [place] [address] Cholesterol in LDL [Mass/Vol] 55 mg/dL Normal 0-99 [facility] Comment on above: Performed By: #### L IPID #### [facility] [address] [place] [address] Cholesterol in LDL/Cholesterol in HDL [Mass ratio] 1.5 mg/dL Normal 0.0-3.6 [facility] Comment on above: Performed By: #### L IPID #### [facility] [address] [place] [address] Cholesterol in VLDL [Mass/Vol] 29 mg/dL Normal 5-40 [facility] Comment on above: Performed By: #### L IPID #### [facility] [address] [place] [address] Cholesterol.total/Ch olesterol in HDL [Mass ratio] 3.3 {ratio} Normal 0.0-5.0 [facility] Comment on above: Performed By: #### L IPID #### [facility] [address] [place] [address] Triglyceride [Mass/Vol] 146 mg/dL Normal 0-149 [facility] Comment on above: Result Comment: 150- 199 Borderline High 200-499 High >499 Very High Performed By: #### L IPID #### [facility] [address] [place], [place] [address] Thyroid Berrien Profileon Thyroid Berrien Comment: see below Normal [facility] Comment on above: Result Comment: Star ting December 16, the Thyroid Berrien has been changed. Please consult the back of our lab requisition. Performed By: #### C BC #### [facility] [address] [place] [address] TSH, 3rd Generation 1.740 uIU/L Normal 0.358-3.740 [facility] Comment on above: Result Comment: NOTE -Dietary supplements containing high biotin levels may cause significant interference with affected lab tests, including cardiovascular diagnostic tests and hormone tests that use biotin technology. Incorrect test results may be generated if there is biotin in the patients specimen. Performed By: #### C BC #### [facility] [address] [place] [address] ALT (SGPT)on 12-03-2019 ALT [Catalytic activity/Vol] 93 U/L High 13-66 [facility] Comment on above: Performed By: #### A LT #### [facility] [address] [place] [address] AST (SGOT)on 12-03-2019 AST [Catalytic activity/Vol] 39 U/L Normal 3-39 [facility] Comment on above: Performed By: #### A ST #### [facility] [address] [place] [address] BILATERAL ANKLE MIN 3 VIEWSo n 12-03-2019 [...] MRI of the most affected ankle. Normal [facility] Basic Metabolic Panelon 11-05 Anion gap [Moles/Vol] 12.1 mmol/L Normal 8.0-16.0 [facility] Comment on above: Performed By: #### B MP #### [facility] [address] [place] [address] Calcium [Mass/Vol] 9.0 mg/dL Normal 8.2-10.0 [facility] Comment on above: Performed By: #### B MP #### [facility] [address] [place] [address] Chloride [Moles/Vol] 107 mmol/L Normal 94-110 [facility] Comment on above: Performed By: #### B MP #### [facility] [address] [place] [address] CO2 [Moles/Vol] 27 mmol/L Normal 21-34 [facility] Comment on above: Performed By: #### B MP #### [facility] [address] [place] [address] Creatinine [Mass/Vol] 0.93 mg/dL Normal 0.50-1.17 [facility] Comment on above: Performed By: #### B MP #### [facility] [address] [place] [address] GFR/1.73 sq M predicted among blacks MDRD (S/P/Bld) [Vol rate/Area] mL/min/{1.73_m2} Normal >60 [facility] Comment on above: Result Comment: Certified Ophthalmic Assistant eliana Kidney Disease less than 60 mL/min/1.73 m2 Kidney Failure less than 15 mL/min/1.73 m2 Average estimated GFR by age: 40-49 years 99 mL/min/1.73 m2 Performed By: #### B MP #### [facility] [address] [place] [address] GFR/1.73 sq M predicted among non-blacks MDRD (S/P/Bld) [Vol rate/Area] mL/min/{1.73_m2} Normal >60 [facility] Comment on above: Performed By: #### B MP #### [facility] [address] [place] [address] Glucose [Mass/Vol] 95 mg/dL Normal 65-100 [facility] Comment on above: Performed By: #### B MP #### [facility] [address] [place] [address] Potassium [Moles/Vol] 4.1 mmol/L Normal 3.3-5.1 [facility] Comment on above: Performed By: #### B MP #### [facility] [address] [place] [address] Sodium [Moles/Vol] 142 mmol/L Normal 132-145 [facility] Comment on above: Performed By: #### B MP #### [facility] [address] [place] [address] Urea nitrogen [Mass/Vol] 16.6 mg/dL Normal 3.2-26.9 [facility] Comment on above: Performed By: #### B MP #### [facility] [address] [place] [address] Urea nitrogen/Creatinine [Mass ratio] 18 mg/mg Normal 6-20 [facility] Comment on above: Performed By: #### B MP #### [facility] [address] [place] [address] CBC w/Auto Differentialon Anemia TIMBER SIZER Normal [facility] Comment on above: Performed By: #### C BC #### [facility] [address] [place] [address] Anisocytosis Ql (Bld) TIMBER SIZER Normal [facility] Comment on above: Performed By: #### C BC #### [facility] [address] [place] [address] Basophils Abs. # 0.0 K/uL Normal 0.0-0.1 [facility] Comment on above: Performed By: #### C BC #### [facility] [address] [place] [address] Basophils/100 WBC (Bld) 0.3 % Normal 0.2-1.0 [facility] Comment on above: Performed By: #### C BC #### [facility] [address] [place] [address] Basophils/100 WBC (Bld) TIMBER SIZER Normal [facility] Comment on above: Performed By: #### C BC #### [facility] [place] [address] [place] [address] Bosophillia # TIMBER SIZER Normal [facility] Comment on above: Performed By: #### C BC #### [facility] [place] [address] [place] [address] Eosinophils (Bld) [#/Vol] TIMBER SIZER Normal [facility] Comment on above: Performed By: #### C BC #### [facility] [place] [address] [place] [address] Eosinophils (Bld) [#/Vol] 0.0 10*3/uL Normal 0.0-0.2 [facility] Comment on above: Performed By: #### C BC #### [facility] [place] [address] [place] [address] Eosinophils/100 WBC (Bld) TIMBER SIZER Normal [facility] Comment on above: Performed By: #### C BC #### [facility] [address] [place] [address] Eosinophils/100 WBC (Bld) 0.2 % Low 0.9-2.9 [facility] Comment on above: Performed By: #### C BC #### [facility] [place] [address] [place] [address] Erythocytosis TIMBER SIZER Normal [facility] Comment on above: Performed By: #### C BC #### [facility] [place] [address] [place] [address] Erythrocyte distribution width (RBC) [Ratio] 13.4 % Normal 11.5-14.5 [facility] Comment on above: Performed By: #### C BC #### [facility] [place] [address] [place] [address] Hematocrit (Bld) [Volume fraction] 45.8 % Normal 36.7-50.6 [facility] Comment on above: Performed By: #### C BC #### [facility] [place] [address] [place] [address] Hemoglobin (Bld) [Mass/Vol] 15.6 g/dL Normal 12.4-17.3 [facility] Comment on above: Performed By: #### C BC #### [facility] [place] [address] [place] [address] Hypochromia TIMBER SIZER Normal [facility] Comment on above: Performed By: #### C BC #### [facility] [place] [address] [place] [address] Large Platelets TIMBER SIZER Normal [facility] Comment on above: Performed By: #### C BC #### [facility] [place] [address] [place] [address] Leukocytosis TIMBER SIZER Normal [facility] Comment on above: Performed By: #### C BC #### [facility] [place] [address] [place] [address] Leukopenia TIMBER SIZER Normal [facility] Comment on above: Performed By: #### C BC #### [facility] [place] [address] [place] [address] Lymphocytes (Bld) [#/Vol] TIMBER SIZER Normal [facility] Comment on above: Performed By: #### C BC #### [facility] [place] [address] [place] [address] Lymphocytes (Bld) [#/Vol] 1.7 10*3/uL Normal 1.3-2.9 [facility] Comment on above: Performed By: #### C BC #### [facility] [place] [address] [place] [address] Lymphocytes/100 WBC (Bld) 33.3 % Normal 17.0-45.5 [facility] Comment on above: Performed By: #### C BC #### [facility] [place] [address] [place] [address] Lymphocytes/100 WBC (Bld) TIMBER SIZER Normal [facility] Comment on above: Performed By: #### C BC #### [facility] [place] [address] [place] [address] Lymphocytosis # TIMBER SIZER Normal [facility] Comment on above: Performed By: #### C BC #### [facility] [place] [address] [place] [address] Lymphocytosis % TIMBER SIZER Normal [facility] Comment on above: Performed By: #### C BC #### [facility] [place] [address] [place] [address] Macrocytosis TIMBER SIZER Normal [facility] Comment on above: Performed By: #### C BC #### [facility] [place] [address] [place] [address] MCH (RBC) [Entitic mass] 29.4 pg Normal 27.0-31.0 [facility] Comment on above: Performed By: #### C BC #### [facility] [place] [address] [place] [address] MCHC (RBC) [Mass/Vol] 34.0 g/dL Normal 33.0-37.0 [facility] Comment on above: Performed By: #### C BC #### [facility] [place] [address] [place] [address] MCV (RBC) [Entitic vol] 86.2 fL Normal 80.0-94.0 [facility] Comment on above: Performed By: #### C BC #### [facility] [place] [address] [place] [address] Microcytosis TIMBER SIZER Normal [facility] Comment on above: Performed By: #### C BC #### [facility] [place] [address] [facility] [address] Monocytes (Bld) [#/Vol] 0.4 10*3/uL Normal 0.3-0.8 [facility] Comment on above: Performed By: #### C BC #### [facility] [place] [address] [place] [address] Monocytes/100 WBC (Bld) 7.6 % Normal 5.5-11.7 [facility] Comment on above: Performed By: #### C BC #### [facility] [place] [address] [place] [address] Monocytosis % TIMBER SIZER Normal [facility] Comment on above: Performed By: #### C BC #### [facility] [place] [address] [place] [address] Neutropenia # TIMBER SIZER Normal [facility] Comment on above: Performed By: #### C BC #### [facility] [place] [address] [place] [address] Neutropenia % TIMBER SIZER Normal [facility] Comment on above: Performed By: #### C BC #### [facility] [place] [address] [facility] [address] Neutrophils (Bld) [#/Vol] TIMBER SIZER Normal [facility] Comment on above: Performed By: #### C BC #### [facility] [place] [address] [place] [address] Neutrophils Abs. # 2.9 K/uL Normal 2.2-4.8 [facility] Comment on above: Performed By: #### C BC #### [facility] [place] [address] [place] [address] Neutrophils/100 WBC (Bld) 58.6 % Normal 43.0-65.0 [facility] Comment on above: Performed By: #### C BC #### [facility] [place] [address] [facility] [address] Neutrophils/100 WBC (Bld) TIMBER SIZER Normal [facility] Comment on above: Performed By: #### C BC #### [facility] [place] [address] [facility] [address] Nucleated RBC (Bld) [#/Vol] 0.0 10*3/uL Normal [facility] Comment on above: Performed By: #### C BC #### [facility] [place] [address] [facility] [address] Nucleated RBC/100 WBC (Bld) [Ratio] 0.0 % Normal [facility] Comment on above: Performed By: #### C BC #### [facility] [place] [address] [facility] [address] Pancytopenia TIMBER SIZER Normal [facility] Comment on above: Performed By: #### C BC #### [facility] [place] [address] [facility] [address] Platelet mean volume (Bld) [Entitic vol] 10.9 fL High 7.4-10.4 [facility] Comment on above: Performed By: #### C BC #### [facility] [place] [address] [place] [address] Platelets (Bld) [#/Vol] 105 10*3/uL Low 148-402 [facility] Comment on above: Performed By: #### C BC #### [facility] [place] [address] [place] [address] Poikilocytosis TIMBER SIZER Normal [facility] Comment on above: Performed By: #### C BC #### [facility] [place] [address] [facility] [place] [address] RBC (Bld) [#/Vol] 5.31 10*6/uL Normal 4.13-5.69 [facility] Comment on above: Performed By: #### C BC #### [facility] [place] [address] [place] [address] Small Platelets TIMBER SIZER Normal [facility] Comment on above: Performed By: #### C BC #### [facility] [place] [address] [facility] [place] [address] Thrombocytopenia TIMBER SIZER Normal [facility] Comment on above: Performed By: #### C BC #### [facility] [place] [address] [facility] [place] [address] Thrombocytopenia. TIMBER SIZER Normal [facility] Comment on above: Performed By: #### C BC #### [facility] [place] [address] [place] [address] Thrombocytosis TIMBER SIZER Normal [facility] Comment on above: Performed By: #### C BC #### [facility] [place] [address] [place] [address] WBC (Bld) [#/Vol] 5.0 10*3/uL Normal 3.6-10.8 [facility] Comment on above: Performed By: #### C BC #### [facility] [place] [address] [facility] [place] [address] RA Latex Turbid.on 0 RA Latex Turbid. <10.0 Normal 0.0-13.9 [facility] Comment on above: Result Comment: Perf ormed at: - [facility] [address] [id number] Jewelry Setter: Romulo Peng PhD, Phone: [phone] Performed By: #### R FWT #### [facility] [address] [place], [place] [address] Sedimentation Rateon 020 Sedimentation Rate 4 mm/hr Normal 0-10 [facility] Comment on above: Performed By: #### E SR #### [facility] [address] [place], [place] [address] Uric Acidon 12-03-2019 Urate [Mass/Vol] 6.1 mg/dL Normal 3.4-8.6 [facility] Comment on above: Performed By: #### C BC #### [facility] [address] [place], [place] [address] HISTORY PHYSICALon 0 HISTORY PHYSICAL HNO ID: [id number] Author: Viviane Hughes Service: ? Author Type: Physician Apple Peeler Operator Type: HANDP Filed: 06/19/2019 9:19 AM Note [...] mouth once daily. 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 B Complex Vitamins capsule Take 1 capsule by mouth once daily. xf-odf-byzwm acid-lutein (CENTRUM SILVER) 400-250 mcg chew Take [...] June 19, 2019 TIME: 9:18 AM PAGER: [id number] [facility] PT EDon 06-19-2019 PT ED HNO ID: [id number] Author: Daniela Mann) FRANCIA Ramos Service: Nursing [...] By: Daniela Ramos RN In Department: PROCEDURES [facility] PT ED HNO ID: [id number] Author: Daphne Newton (Rn) FRANCIA Byers Service: ? Author Type: Registered [...] By: Daphne Byers RN In Department: PROCEDURES [facility] HOSPon 06-12-2019 HOSP Patient:Jack Nielsen MRN: Height:5' 10.984 (1.803 m) Weight:353 lb 2.8 oz (160.2 kg) Outpatient Medications as of 06/19/19: doxepin capsule 50 mg levomilnacipran ER (FETZIMA) 40 mg famotidine/Ca carb/mag hydrox (ACID ENVIRONMENTAL FIELD SERVICES TECHNICIAN COMPLETE, FAMOT, ORAL) B Complex Vitamins capsule wb-vju-zsecp acid-lutein (CENTRUM SILVER) 400-250 mcg chew triamterene [...] once daily. 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 - B Complex Vitamins capsule Take 1 capsule by mouth once daily. - ez-lix-oezet acid-lutein (CENTRUM SILVER) 400-250 mcg chew Take [...] fevers. Neuro: No history of TIA's, stroke, HARNESS MAKER tumor, impaired sensorium, hemiplegia, paraplegia or quadriplegia. [...] Augusto Evans MD 06/08/2019 2:22 PM Signed [facility] Patient instructions for day of surgery Do [...] once daily. - famotidine/Ca carb/mag hydrox (ACID ENVIRONMENTAL FIELD SERVICES TECHNICIAN COMPLETE, FAMOT, ORAL) Take 1 tablet by [...] your physician) as soon as possilbe to [phone], ATTN: Augusto Evans MD If you have any questions or concerns regarding today's visit please do not hesitate to contact the [facility] center at [phone] or [phone], [phone]. Progress Notes ([facility]): Umer Winston DO, DO 06/08/2019 [...] M.predicted MDRD (S/P/Bld) [Vol rate/Area] mL/min/{1.73_m2} Normal [facility] Comment on above: Result Comment: To e [...] <15 Performed By: #### G FR1 #### [place] [id number] METABOLIC PANELon 08-03-2018 ALK PHOS 83 U/L Normal 24-126 [facility] Comment on above: Performed By: #### [id number] #### [employer] [place] [place] [address] ALT [Catalytic activity/Vol] 61 U/L High 4-50 [facility] Comment on above: Performed By: #### [id number] #### [facility] [employer] [place] [id number] AST [Catalytic activity/Vol] 33 U/L Normal 3-55 [facility] Comment on above: Performed By: #### [id number] #### [place] [address] Calcium [Mass/Vol] 9.6 mg/dL Normal 8.4-10.4 [facility] [employer] [facility] Comment on above: Performed By: #### 4 [id number] #### [place] [address] Glucose [Mass/Vol] 88 mg/dL Normal 65-100 [facility] [employer] [facility] Comment on above: Performed By: #### 4 [id number] #### [facility] [employer] [place] [id number] Urea nitrogen [Mass/Vol] 23 mg/dL Normal 8-26 [facility] Comment on above: Performed By: #### 4 [id number] #### [facility] [employer] [place] [address] Bilirubin Ql (U) 0.4 mg/dL Normal 0.2-1.6 [facility] Comment on above: Performed By: #### 4 [id number] #### [facility] [employer] [place] [address] CO2 [Moles/Vol] 26 mmol/L Normal 22-30 [facility] Comment on above: Performed By: #### 4 [id number] #### [facility] [address] [address] Creatinine [Mass/Vol] 0.90 mg/dL Normal 0.66-1.25 [facility] Comment on above: Performed By: #### 4 [id number] #### [place] [id number] Protein [Mass/Vol] 6.9 g/dL Normal 6.3-8.2 [facility] Comment on above: Performed By: #### 4 [id number] #### [place] [address] Potassium [Moles/Vol] 4.3 mmol/L Normal 3.6-5.1 [facility] Comment on above: Performed By: #### 4 [id number] #### [place] [address] Sodium [Moles/Vol] 141 mmol/L Normal 135-147 [facility] Comment on above: Performed By: #### 4 [id number] #### [place] [address] Albumin [Mass/Vol] 4.3 g/dL Normal 3.5-5.0 [facility] Comment on above: Performed By: #### 4 [id number] #### [place] [address] Chloride [Moles/Vol] 106 mmol/L Normal 96-109 [facility] Comment on above: Performed By: #### 4 [id number] #### [place] [id number] Vital Signs Date Time Vital Sign Value Performing Clinician Baron iverson 01-20-2023 08:21-0400 Body height 180.3 cm Sam Crow MD Work Phone: [facility] 01-20-2023 08:21-0400 Body temperature 97.2 [degF] Sam Crow MD Work Phone: [facility] 01-20-2023 08:21-0400 Body weight 170.1 kg Sam Crow MD Work Phone: [facility] 01-20-2023 08:21-0400 Diastolic blood pressure 63 mm[Hg] Sam Crow MD Work Phone: [facility] 01-20-2023 08:21-0400 Heart rate 62 /min Sam Crow MD Work Phone: [facility] 01-20-2023 08:21-0400 Systolic blood pressure 148 mm[Hg] Sam Crow MD Work Phone: [facility] Encounters Encounter Date Encounter Type Care Provider Facility Start: 01-09-2024 ambulatory Rashid Ruffin acility:[facility] Start: 09-14-2023 End: 09-14-2023 ambulatory PA Cassidy Hummel Facility:[facility] Start: 08-18-2023 End: 08-19-2023 ambulatory Jhonny Hernandez Facility:[facility] Start: 07-14-2023 End: 07-15-2023 ambulatory PA Cassidy Hummel Facility:[facility] Start: 07-07-2023 End: 07-08-2023 ambulatory PA Cassidy Hummel Facility:[facility] Start: 07-06-2023 End: 07-07-2023 ambulatory PA Cassidy Hummel Facility:[facility] Start: 06-28-2023 End: 06-29-2023 ambulatory PA Cassidy Hummel Facility:[facility] Start: 06-16-2023 End: 06-16-2023 ambulatory Reno MCCLURE Facility:[facility] Start: 04-14-2023 Telephone encounter Fadi Guevara [facility] Start: 01-22-2023 ambulatory Minal Puga RN [facility] Start: 01-22-2023 E-mail encounter fro m caregiver Minal Puga RN [facility] Start: 01-21-2023 Telephone encounter Minal Guevara General [facility] Comment on above: Manager Inspection - Shawna greco (Enroll in BMI program) Start: 01-20-2023 End: 01-21-2023 ambulatory SAM CROW Facility:[facility] Start: 01-20-2023 End: 01-20-2023 Patient encounter procedure Sam Crow MD Work Phone: General Surgery Comment on above: Incisional hernia, w ithout obstruction or gangrene (Primary Dx) Start: 01-19-2023 End: 01-20-2023 ambulatory Unlisted Provider Facility:[facility] Start: 01-15-2023 End: 01-15-2023 Emergency department patient visit Kareem Sanchez Facility:[facility] Start: 01-04-2023 Orders Only Marika Tavares [...] - S christiano or Plasma Lipid Screening [facility] Start: 02-23-2024 LIPID SCREEN LIPID SCREEN [facility] Start: 09-14-2023 Urine microalbumin profile [facility] Start: 02-04-2023 Influenza vaccination C [facility] Start: 02-23-2020 ANNUAL PCP TEAM GEOMATICS PROFESSOR ELIANA DISEASE VISIT ANNUAL PCP TEAM CHRONIC DISEASE VISIT [facility] Start: 1996 BP CONTROLLED (<130/80) BP CON TROLLED (<130/80) [facility] Start: 1996 HEPATITIS C SCREENING HEPATITIS C SC REENING [facility] Start: 1996 HIV SCREENING HIV SCREENING [facility] Start: 1978 COVID-19 VACCINE (#1) COVID-19 VACCI NE (#1) [facility] Start: 1978 HEPATITIS B (1 of 3 - 3-dose series) HEPATITIS B (1 of 3 - 3-dose series) [facility] Start: 1978 Hepatitis B Vaccine (1 of 3 - 3-dose series) Hepatitis B Vaccine (1 of 3 - 3-dose series) [facility] End: 02-03-2024 Ct abdomen & pelvis w/o contrast material CT ABD/PEL WO IVCON Radiology Routine Incisional hernia, without obstruction or gangrene 1 Occurrences starting 01/04/2023 until 02/03/2024 [facility] Work Phone: Comment on above: 1 Occurrences starti ng 01/04/2023 until 02/03/2024 [facility] Immunization Date Immunization Notes Care Provider Mike dave 03-06-2015 influenza, seasonal, injectable Marika Tavares APRN.CNP Work Phone: [facility] Work Phone: 03-06-2015 influenza virus vaccine, unspecified formulation Fadi Roberson RN [facility] 09-13-2013 tetanus toxoid, redu dana diphtheria toxoid, and acellular pertussis vaccine, adsorbed Marika Chaitanya HEAD OF DESIGN.EDIPHONE OPERATOR Work Phone: [facility] Work Phone: Payers Date Payer Category Payer Self-pay 2022 Medicaid [id number] 2022 Medicaid [id number] 1980 Unknown [id number] Unknown [id number] 1980 Unknown [id number] 2.16.8 40.1.817787.3.579.2. 1978 Unknown [id number] 2.16.8 40.1.399575.3.579.2. 1978 Unknown [id number] 2.16.8 40.1.192929.3.579.2. 1978 Unknown [id number] 2.16.8 40.1.933633.3.579.2. 1978 Unknown [id number] 2.16.8 40.1.516028.3.579.2. 1978 Unknown [id number] 2.16.8 40.1.232707.3.579.2. 1978 Unknown [id number] 2.16.8 40.1.881226.3.579.2. 1978 Unknown [id number] 2.16.8 40.1.780893.3.579.2 1978 Unknown [id number] 2.16.8 40.1.331618.3.579.2.718 1978 Unknown [id number] 2.16.8 40.1.895698.3.579.2.718 1978 Unknown [id number] 2.16.8 40.1.729157.3.579.2.718 Unknown [id number] 2.16.8 40.1.708766.3.579.2.531 Social History Date Type Detail Facility Start: 06-08-2019 End: 01-20-2023 Tobacco smoking status NHIS Ex-smoker [facility] End: 06-06-1982 History of tobacco use Current smoker [facility] End: 06-06-1982 History of tobacco use Cigarette Smoker [facility] Start: 06-08-2019 End: 01-20-2023 Cigarettes smoked current (pack per day) - Reported 0.1 [facility] Work Phone: Start: 06-08-2019 End: 01-20-2023 Tobacco use and exposure Smokeless tobacco non-user [facility] Start: 03-19-2021 End: 01-20-2023 Alcohol intake Lifetime non-drinker (finding) [facility] Start: 1980 Sex Assigned At Not on file [facility] Start: 06-19-2019 End: 01-20-2023 Gender identity Not on file [facility] Work Phone: How often to you hav e a drink containing alcohol? Never [facility] Work Phone: Average Number of Drinks Not on file [facility] Clinical Notes 01-15-2023 to 09-14-2023 Telephone [...] doctor may want you to: ? Take frsq-agr-qarpucr medicines. ? Drink plenty of fluids. The [...] Applesauce. ? Rice. ? Lean meats. ? [place]. ? Crackers. ? Do not eat or drink: ? Fluids that have a lot of sugar or caffeine. ? Alcohol. ? Spicy or fatty foods. General instructions ? Take suiq-lqi-zvezmsh and prescription medicines only as told by [...] use soap and water, use alcohol-based hand parking lot supervisor. ? Keep all follow-up visits. How is [...] the hospital. Summary (more content not included)... [facility] 06-16-2023 Note Patient Education Ma terials [...] at home: Medicines ? Take or apply qwzj-jhd-retdwyk and prescription medicines only as told by [...] provider. Document Revised: 08/21/2020 Document Reviewed: 08/21/2020 [employer] Patient Education ? 2022 [facility]. [facility] 04-14-2023 Miscellaneous Notes Formattin g of this note might be different from the original. [facility] SPECIALTY CARE COORDINATION TELEPHONE ENCOUNTER Pt mother is helping him. LVM with call back number documented in this encounter [facility] 01-22-2023 Miscellaneous Notes Formattin g of this note might be different from the original. Unable to send [employer] message- account not active documented in this encounter [facility] 01-22-2023 Miscellaneous Notes Formattin g of this note might be different from the original. [facility] SPECIALTY CARE COORDINATION TELEPHONE ENCOUNTER 01/21/18: called and left message for pt to call office. Provided this RNs contact number. documented in this encounter [facility] 01-20-2023 Note HNO ID: [id number] Author: Sam Crow MD Service: ? Author [...] plan as documented in the resident?s note. [facility] 01-20-2023 Note HNO ID: [id number] Author: Zahraa Stovall Service: ? Author Type: ? Type: Progress Notes Filed: 01/20/2023 9:13 AM Note Text: [facility] - HISTORY AND PHYSICAL [...] mouth once daily. 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 B Complex Vitamins capsule Take 1 capsule by mouth once daily. ii-ipf-gxbkq acid-lutein (CENTRUM SILVER) 400-250 mcg chew Take [...] and discussed with Dr. Mignon Stovall, MS4 [facility] 01-20-2023 History of Presen t illness [...] documented in the resident s note. [facility] - HISTORY AND PHYSICAL [...] mouth once daily. 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 B Complex Vitamins capsule Take 1 capsule by mouth once daily. fq-hzz-apfne acid-lutein (CENTRUM SILVER) 400-250 mcg chew Take [...] Mignon Stovall, MS4 documented in this encounter [facility] 01-20-2023 Nurse Note What is the reason for your visit today? consult Who is your referring physician? Dr. Crow Are you having poor oral intake? NO Have you had unintentional weight loss of 15 lbs/7 Kg in the last 3-6 months? NO Bowels: diarrhea Wound: clean & dry Temperature: No Drains: No documented in this encounter [facility] 01-15-2023 Note Education Materials Infectious Disease [...] these instructions at home: Medicines ? Take tayp-wsw-wilwhxg and prescription medicines only as told by [...] provider. Document Revised: 03/04/2022 Document Reviewed: 03/04/2022 [employer] Patient Education ? 2022 [employer] Procedures How to Take Your Blood [...] chair. ? Be (more content not included)... [facility] Evaluation note Diagnosis Incisional hernia, without obstruction or gangrene- Primary Incisional hernia without mention of obstruction or gangrene [facility] Incisional hernia, without obstruction or gangrene- Primary Incisional hernia without mention of obstruction or gangrene documented in this encounter [facility] Summary Purpose Family History No Family History Records FoundNo Family History Records FoundNo Family History Records FoundNo Family History Records FoundNo Family History Records FoundNo Family History Records Found Advance Directives No Advanced Directives Records FoundDocuments on File Type Date Recorded 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 Advance Directive(s) 06/08/2019 4:15 PM Documents on File Type Date Recorded 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 Advance Directive(s) 06/08/2019 4:15 PM Reason for Referral Specialty Diagnoses / Procedures Referred By Elías t Referred To Contact CT IMAGING Diagnoses Incisional hernia, without obstruction or gangrene Procedures CT ABD/PEL WO IVCON CT ABD & PELVIS W/O CONTRAST Marika Tavares, HEAD OF DESIGN.EDIPHONE OPERATOR [address] [place] [id number] Imaging Referral ID Status Reason Start Date Expiration Date Visits Requested Visits Authorized [id number] Pending Review Auto-Generat ed Referral 01/04/2023 02/03/2024 1 1 Specialty Diagnoses / Procedures Referred By Contac t Referred To Contact Diagnoses Incisional hernia, without obstruction or gangrene Procedures CONSULT [facility] OFFICE/OUTPATIENT [facility] 60-74 MINUTES Sam Crow MD [address] [place] [address] Referral ID Status Reason Start Date Expiration Date Visits Requested Visits Authorized [id number] Authorized PCP Requested Referral 01/20/2023 01/20/2024 1 1 Additional Source Comments (unrecognized sect ion and content) No Status Records FoundNo Status Records FoundNo Status Records FoundNo Status Records FoundNo Status Records FoundNo Status Records Found INFORMATION SOURCE (unrecogn ized section and content) DATE CREATED AUTHOR 04/26/2019 [facility] DATE CREATED AUTHOR AUTHOR'S ORGANIZ ATION 06/19/2019 [facility] DATE CREATED AUTHOR AUTHOR'S ORGANIZ ATION 08/02/2020 [facility] DATE CREATED AUTHOR AUTHOR'S ORGANIZ ATION 04/16/2023 [facility] DATE CREATED AUTHOR AUTHOR'S ORGANIZ ATION 10/13/2023 [facility] DATE CREATED AUTHOR AUTHOR'S ORGANIZ ATION 01/11/2024 [facility] Source Comments (unrecognize d section and content) In the event this informatio n is protected by the Federal Confidentiality of Alcohol and Drug Abuse Patient Records regulations: The Federal rules restrict any use of the information to criminally investigate or prosecute any alcohol or drug abuse patient.[facility] the event this information is protected by the Federal Confidentiality of Alcohol and Drug Abuse Patient Records regulations: The Federal rules restrict any use of the information to criminally investigate or prosecute any alcohol or drug abuse patient.[facility] the event this information is protected by the Federal Confidentiality of Alcohol and Drug Abuse Patient Records regulations: The Federal rules restrict any use of the information to criminally investigate or prosecute any alcohol or drug abuse patient.[facility] the event this information is protected by the Federal Confidentiality of Alcohol and Drug Abuse Patient Records regulations: The Federal rules restrict any use of the information to criminally investigate or prosecute any alcohol or drug abuse patient.[facility] the event this information is protected by the Federal Confidentiality of Alcohol and Drug Abuse Patient Records regulations: The Federal rules restrict any use of the information to criminally investigate or prosecute any alcohol or drug abuse patient.[facility] Care Teams (unrecognized sec tion and content) Global Recruiter Relationship Specialty Start Date End Date Antoine Alcazar [id number] [address] Referring General Surgery 02/07/19 Global Recruiter Relationship Specialty Start Date End Date Antoine Alcazar [facility]rell [address] [facility] [place] [address] Referring General Surgery 02/07/19 Global Recruiter Relationship Specialty Start Date End Date Antoine Alcazar Darrell [address] [address] [place] [address] Referring General Surgery 02/07/19 Global Recruiter Relationship Specialty Start Date End Date Inge Antoine Darrell [address] [facility] [place] [place] [address] Referring General Surgery 02/07/19 Reason for Visit (unrecogniz ed section and content) Reason Comments Consult Reason Comments Manager Inspection - Other Enroll in [facility] p [facility] FOR RECORDS PERTAINING TO PATIENTS WHO ARE [...] BE BASED ON THE PRIMARY CLINICAL RECORDS. [employer] [facility]. provides no warranty or guarantee of the accuracy or completeness of information in this document.
[2024-01-11 13:00] VITALS: BP 128/75; PULSE 75; O2SAT 97; BMI 53.2
== END 2024-01-11 14:47 | disposition home or self-care (01) ==
LOC: VC 12:53
PROVIDERS: PCP Radiology Diagnostic Radiology; Visit Provider Radiology Diagnostic Radiology
DX: I80.01 Phlebitis and thrombophlebitis of superficial vessels of right lower extremity (principal)
CPT/HCPCS: 93971; G0463

== ENCOUNTER 2024-01-19 13:18 | Outpatient (OUT) | payer OTHER, SELFPAY ==
--- NOTE | 2024-01-18 08:00 | V.VEINS.HP ---
Vital Signs 01/19/24 14:25 BP 136/74 BP Location Right Radial BP Position Sitting BP Cuff Size Adult BP Source Manual Cuff Respiration 18 Pulse 74 Pulse Source Monitor Pulse Oximetry (%) 96 Oxygen Delivery Method Room Air Comment The patient's blood pressure is elevated. Varicose Veins Patient in today for microfoam chemical ablation right leg. John Monsalve MD personally performed the services described in this documentation, as scribed by Alex Rankin RN in my presence and it is both accurate and complete. Alex Monsalve RN, am scribing for, and in the presence of, Dr. John Duggan and in the presence of the patient. thigh: bilateral, knee: bilateral, calf: bilateral, ankle: bilateral and [place]: bilateral cramping, dull, sharp and tender 8 4 years Worsened in recent months: Yes standing analgesics (Tylenol), bed rest, elevating extremities and compression stockings Reports muscle spasms of leg, edema, leg edema and other (ulceration) History of lower extremity trauma: No Superficial thrombophlebitis: No Family history of varicose veins: unknown Has patient had previous lower extremity venous surgery: No Patient has previously received the following treatment(s) for lower extremity varicose veins: Reports none Does patient have a history of : not applicable Does patient intend to have future pregnancies: not applicable Has patient had lower extremity venous scan with relux testing: Yes Support hose used: Yes Problems walking or doing physical activity: Yes How does it affect you: Compromised work d/t having to take multiple breaks throughout the day. Do you walk much: Yes Do you stand much: Yes Review of Systems ROS Narrative John Monsalve MD personally performed the services described in this documentation, as scribed by Alex Rankin RN in my presence and it is both accurate and complete. Alex Monsalve RN, am scribing for, and in the presence of, Dr. John Duggan and in the presence of the patient.. Status of ROS 10 or more systems reviewed and unremarkable except as noted in history and below Cardiovascular Reports: edema, swelling of feet/ankles and leg pain with exertion Musculoskeletal Reports: extremity pain and extremity swelling Integumentary/Breast Reports: redness, new lesion, non-healing lesion and changes in skin color [facility] Medical History (Updated 12/14/23 @ 15:00 by Lucia Gupta) Phlebitis and thrombophlebitis of superficial vessels of right lower extremity ?I80.01 - Phlebitis and thrombophlebitis of superficial vessels of right lower extremity (ICD-10) Pain due to varicose veins of both lower extremities ?I83.813 - Varicose veins of bilateral lower extremities with pain (ICD-10) Chronic venous hypertension ?I87.309 - Chronic venous hypertension (idiopathic) without complications of unspecified lower extremity (ICD-10) Venous 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 veins ?I83.019 - Varicose veins of right lower extremity with ulcer of unspecified site (ICD-10) ?I83.029 - Varicose veins of left lower extremity with ulcer of unspecified site (ICD-10) ?L97.919 - Non-pressure chronic ulcer of unspecified part of right lower leg with unspecified severity (ICD-10) ?L97.929 - Non-pressure chronic ulcer of unspecified part of left lower leg with unspecified severity (ICD-10) Surgical History (Updated 12/14/23 @ 09:45 by Danya Holt) History of hernia repair ?Z98.890 - Other specified postprocedural states (ICD-10) ?Z87.19 - Personal history of other diseases of the digestive system (ICD-10) History of cholecystectomy ?Z90.49 - Acquired absence of other specified parts of digestive tract (ICD-10) Family History (Updated 12/14/23 @ 09:46 by Danya Holt) Other Family history not known due to adoption Social History (Updated 12/14/23 @ 09:47 by Danya Holt) Within the past year, how often did you have a drink containing alcohol: monthly or less Smoking status: Never smoker Non-prescribed substance use: denies use Meds Home Medications and Allergies Home Medications ?Medication ?Instructions ?Recorded ?Confirmed ?Type Fabuxostat 12/14/23 History buspirone 5 mg tablet 5 mg PO BID 12/14/23 12/14/23 History calcium phosphate,dibasic 77 tab PO 12/14/23 History mg-vitamin D3 400 unit tablet dulaglutide 0.75 mg/0.5 mL 0.75 mg subcut QWEEK 12/14/23 12/14/23 History subcutaneous pen injector (Trulicity) ferrous sulfate 325 mg (65 mg 325 mg PO DAILY 12/14/23 12/14/23 History iron) tablet (Feosol) losartan 100 mg tablet 100 mg PO DAILY 12/14/23 12/14/23 History melatonin 5 mg capsule mg 12/14/23 History omeprazole 20 mg capsule,delayed 20 mg PO DAILY 12/14/23 12/14/23 History release trazodone 50 mg tablet 25 mg PO DAILY 12/14/23 12/14/23 History Allergies Allergy/AdvReac Type Severity Reaction Status Date / Time bupropion [From Wellbutrin] Allergy Unknown Verified 11/04/23 14:41 Exam Narrative Exam Narrative: John Monsalve MD personally performed the services described in this documentation, as scribed by Alex Rankin RN in my presence and it is both accurate and complete. Alex Monsalve RN, am scribing for, and in the presence of, Dr. John Duggan and in the presence of the patient. Constitutional Documenting provider has reviewed patient's vital signs: yes Common normals: oriented x3 Lymph Lymphatic: no lymphedema noted Cardio Common normals: regular rate Rate: regular rate Peripheral pulses: posterior tibial pulses present and dorsalis pedis pulses present Extremity Common normals: normal capillary refill General: calf tenderness and edema Right lower extremity: upper leg and lower leg Left lower extremity: upper leg and lower leg Neuro Common normals: oriented x3 Assessment and Plan Assessment and Plan (1) Pain due to varicose veins of both lower extremities: Plan f/u evaluation with physician along with right leg limited u/s John Monsalve MD personally performed the services described in this documentation, as scribed by Alex Rankin RN in my presence and it is both accurate and complete. Alex Monsalve RN, am scribing for, and in the presence of, Dr. John Duggan and in the presence of the patient. Procedures Procedure Instructions Procedures Right leg microfoam chemical ablation/Varithena: Risks and benefits of the procedure were discussed at length and informed written consent was obtained.? Time-out procedure was performed and the correct patient and procedure were confirmed.? Staff present during time-out: Alex Rankin RN and John Duggan MD.? Patient prepped and procedure performed in usual sterile fashion.? Patient was placed in Trendelenburg prior to Polidocanol/Varithena injections. Sclerosing Agent:?? 15cc 1% Polidocanol/Varithena Site Injected: Right lecc varithena administered in to a 4mm varicose vein distal anterior lower leg 6cc varithena administered into a 5mm varicose vein mid medial lower leg 3cc varithena administered in to a 4mm varicose vein medial knee Number of Injections:? 3 The patient tolerated the procedure well without complication.? Hemostasis was obtained and thigh-high compression stocking was applied with foam pads.? Instructed patient to wear stocking for at least 96 hours and sleep with it and only remove for showering.? The patient was instructed to? wear stocking for 2 weeks.? Patient verbalizes understanding and states they will comply.? Patient was given post-procedure instructions. Patient was discharged in good condition.? Scheduled to undergo limited venous ultrasound and? exam on 01/25/2024 John Monsalve MD personally performed the services described in this documentation, as scribed by Alex Rankin RN in my presence and it is both accurate and complete. Alex Monsalve RN, am scribing for, and in the presence of, Dr. John Duggan and in the presence of the patient.
--- NOTE | 2024-01-18 08:06 | W.VEIN ---
Discharge Plan Discharge Disposition: Home, Self-Care Outpatient Diagnostics: [facility] Facility EST LMTD (Routine) Timeframe: 2 Weeks Facility: [facility] - Location: [facility] Ordered By: John Duggan VC EXT Venous RT LMTD (Routine) Timeframe: 2 Weeks Facility: [facility] - Location: [facility]in Center Ordered By: John Duggan Follow Up Appointments: 01/24/2024 Plan of Treatment: f/u evaluation with physician along with right leg limited u/s Patient Instructions: Polidocanol (By injection) (Asclera, Varithena) Print Language: Portuguese Discharge Date/Time: 01/19/24 15:33
--- NOTE | 2024-01-19 13:32 | VEIN_ITS ---
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 Pre-operative Diagnosis: CEAP class C5 venous insufficiency with pain, tenderness, edema and incompetent branch saphenous vein(s), chronic venous insufficiency right leg secondary to venous incompetence Post-operative Diagnosis: CEAP class C5 venous insufficiency with pain, tenderness, edema and incompetent branch saphenous vein(s), chronic venous insufficiency right leg secondary to venous incompetence Procedure Performed: 1. Ultrasound-guided microfoam chemical ablation with Varithenaregistered 2. Intraoperative ultrasound guidance Physician: Maribell Mendoza M.D. Anesthesia: None Indications for Procedure: 43 year old male. Symptoms including lower extremity pain, swelling, dilated bulging veins for many years despite conservative medical therapy including medical compression stockings, exercise and analgesics. Prior procedures include endovenous laser ablation. Multiple incompetent varicosities of the right leg. Duplex scan showed reflux and enlarged diameters up to 5 mm. The patient underwent informed consent including management options where the complications of infection, bleeding, pain, and skin injury were discussed. Particular attention was spent discussing thrombus extension and deep vein thrombosis as well as the possibility of pulmonary embolus and treatment with oral or injectable blood thinners. Procedure: The patient walked to the procedure room. All applicable staff donned appropriate apparel. A procedure timeout was performed to confirm correct patient, correct extremity, correct procedure, and correct room set-up including presence of all applicable supplies, devices, and drugs. A duplex ultrasound, performed by myself confirmed the location and incompetence of branch saphenous varicosities and their course was marked on the skin together with the dilated tributaries. The extent of treatment of the vein and the associated varicosities was determined through ultrasound mapping. The skin was prepped and then punctured with a butterfly needle and advanced under ultrasound guidance. The Varithenaregistered canister was activated and the canister was primed and purged as required in the instructions for use. Varithenaregistered was drawn into a sterile syringe. Varithenaregistered was slowly administered at 0.5-1.0 cc/second with close observation by ultrasound of its course in the vessels. Total volume utilized was: 15 mL (6 mL into a 4 mm varicosity distal anterior lower leg; 6 mL into a 5 mm varicosity mid medial lower leg; 3 mL into a 4 mm varicosity medial to the knee). Following administration of Varithenaregistered the leg was elevated and the patient was asked to repeatedly dorsiflex the ankle to limit flow of Varithenaregistered into perforating veins. Once appropriate spasm had been confirmed in the treated veins, the vascular catheter was removed from the leg and light pressure was applied over the puncture site for hemostasis. The common femoral and deep superficial veins were then evaluated for flow and compressibility prior to dressing placement. The lower extremity was kept elevated at 45 degrees above the horizontal and cording material was applied over the saphenous segments and tributaries to allow for eccentric compression over the target vessels including the targeted saphenous vein(s). A multilayer dressing was applied consisting of foam pads, coban and thigh-high 20-30 mm Hg compression elastic support hose were placed on the patient. The leg was lowered only after compression had been applied and the patient was immediately ambulatory. The patient ambulated 10 minutes under supervision and was without apparent concerns at time of release. Post-care instructions include advising patient to keep post-treatment bandages in place and dry for 48 hours, avoid extended periods of inactivity, avoid heavy exercise for one week, wear compression stockings on the treated leg continuously for two weeks, to walk daily for 10 minutes over the next month. The patient was instructed to take an anti-inflammatory medicine as needed and to follow up for color duplex scan of the Saphenous veins, the treated branch saphenous varicosities, the adjacent deep veins, and additional treatment within 7 days. PERSONNEL: Alex Rankin RN Electronically authenticated by: MARIBELL MENDOZA Date: 01/19/2024 15:54
[2024-01-19 14:25] VITALS: BP 136/74; PULSE 74; O2SAT 96
== END 2024-01-19 15:33 | disposition home or self-care (01) ==
LOC: VC 13:18
PROVIDERS: PCP Radiology Diagnostic Radiology; Visit Provider Radiology Diagnostic Radiology
DX: I83.813 Varicose veins of bilateral lower extremities with pain (principal)
CPT/HCPCS: 36466

== ENCOUNTER 2024-01-26 10:18 | Outpatient (OUT) | payer OTHER, SELFPAY ==
--- NOTE | 2024-01-26 10:18 | VEIN_ITS ---
Patient Name: DAVI MCCULLOUGH MR#: [id number] : 1980 Exam Date: 01/26/2024 Ordering Doctor: DR MARIBELL DUGGAN M.D. RADIOLOGY REPORT PROCEDURE: VC EXT VENOUS RT LMTD COMPARISON: VC EXT VENOUS RT LMTD, 01/11/2024. INDICATIONS: I80.01 - Phlebitis and thrombophlebitis of superficial ve... TECHNIQUE: Lower extremity ordaz scale and Duplex Doppler evaluation of the deep venous system from the inguinal ligament through the calf veins. FINDINGS: REGION: Right lower extremity. THROMBI: Negative for DVT. Varithena induced thrombus visualized at mid/med calf, dist/med calf, and medial knee. COMPRESSIBILITY: Non-compressible segments corresponding to thrombus FLOW: Areas of no flow corresponding to thrombus OTHER: No patent varicose veins remain. CONCLUSION: 1. Successful post ablation occlusion of right leg treated branch saphenous varicosities. Dictated by: Maribell Duggan M.D. on 01/26/2024 at 11:40 Approved by: Maribell Duggan M.D. on 01/26/2024 at 11:40
--- NOTE | 2024-01-26 10:18 | VEIN_ITS ---
Patient Name: DAVI MCCULLOUGH MR#: [id number] : 1980 Exam Date: 01/26/2024 Ordering Doctor: DR MARIBELL MENDOZA M.D. RADIOLOGY REPORT PROCEDURE: [facility] - OFFICE VISIT FOLLOW UP COMPARISON: [facility], 01/11/2024. PROGRESS NOTES: The patient reports improvement in leg symptoms. There has been interval reduction in varicosities. The patient has followed our recommendations to walk 20-30 minutes once or twice per day since the procedure. Physical exam demonstrates decrease in varicosities of the leg. Persistent varicosities are identified along the left leg. Review of the ultrasound performed the same day demonstrates occlusive thrombus extending throughout the treated vein(s), see separate report, consistent with a successful ablation. No thrombus extending into or beyond the saphenofemoral junction. The patient expressed a desire to proceed with treatment of remaining left leg incompetent varicosities. The patient was informed that treatment was a process and would require 1-2 procedures/sessions. VEIN/[facility] IMPRESSION: 1. Successful ablation of the right leg treated branch saphenous vein(s). 2. Persistent left leg varicose veins and lower extremity symptoms. PLAN: 1. Microfoam chemical ablation of left leg incompetent branch saphenous varicosities. Nurse notes, history and physical were reviewed and confirmed, see attached forms. The nurse was present throughout the physical exam and consultation Dictated by: Maribell Mendoza M.D. on 01/26/2024 at 11:40 Approved by: Maribell Mendoza M.D. on 01/26/2024 at 11:41
--- OUTSIDE RECORDS SUMMARY | 2024-01-26 10:34 | XMS_ITS | CCD ---
Author Organization [facility] Care Team Providers Care Inspector Structural Bonding Name Role Phone Antoine Alcazar Unavailable [phone] SAM CROW Attending Unavailable Kastor NET WPF DEVELOPER REFRACTORY FURNACE DESIGNER-C, Mary Harris Admitting Unavai lable Kastor NET WPF DEVELOPER REFRACTORY FURNACE DESIGNER-C, Mary Harris Attending Iraidai liane Kastor NET WPF DEVELOPER REFRACTORY FURNACE DESIGNER-C, Mary C Primary Care KAMI Moon Attending Unavailable KAMI Hummel Admitting Unavailable Kastor NET WPF DEVELOPER REFRACTORY FURNACE DESIGNER-C, Mary Harris Primary Care UnavaJhonny Morrow Attending Unavailable Jhonny Hernandez Admitting Unavailable Kastor NET WPF DEVELOPER REFRACTORY FURNACE DESIGNER-C, Mary C Primary Care Reno Soares Admitting Unavaila Reno Carias Attending Unavaila ble Provider, None Primary Care Unavailable KAMI Hummel Attending Unavailable KAMI Hummel Admitting Unavailable Kastor NET WPF DEVELOPER REFRACTORY FURNACE DESIGNER-C, Mary Harris Primary Care KAMI Moon Attending Unavailable KAMI Hummel Admitting Unavailable Kastor NET WPF DEVELOPER REFRACTORY FURNACE DESIGNER-C, Mary C Primary Care KAMI Moon Admitting Unavailable Kastor NET WPF DEVELOPER REFRACTORY FURNACE DESIGNER-C, Mary C Primary Care KAMI Moon Attending Unavailable KAMI Hummel Attending Unavailable KAMI Hummel Admitting Unavailable Kastor NET WPF DEVELOPER REFRACTORY FURNACE DESIGNER-C, Mary C Primary Care Unavai labKareem Sims Admitting Unavailable Kareem Sanchez Attending Unavailable Provider, None Primary Care Unavailable Provider, Unlisted Primary Care Unavailable Marika Tavares CNP Admitting Marika Carroll CNP Attending KAMI Geller Admitting Unavailable KAMI Hummel Attending Unavailable Carlos DE DIOSP-C, Mary Steven Primary Care KAMI Moon Attending Unavailable KAMI Hummel Admitting Unavailable [facility] [place] DIOSP-C, Mary Steven Primary Care KAMI Moon Admitting Unavailable Kastor TIFFANY DE DIOSP-C, Mary C Primary Care KAMI Moon Attending Unavailable Rashid Rojas Attending Unavailab Rashid Solomon Admitting Unavailab kiarra ROBERT FAMILY, PHYSICIAN Primary Care Unavailable Allergies Allergy Classification Reported Allergen(s) Allergy Type Date of Onset Reaction(s) Facility (6 sources) buPROPion; Translations: [BUPROPION HCL] Drug Allergy 10-25-2016 [facility] (1 source) buPROPion; Translations: [Wellbutrin] Drug Allergy [facility] (1 source) buPROPion Drug Allergy 02-01-2019 [facility] Medications Completed/Discontinued Medications Medication Drug [...] mL pen injector famotidine/Ca carb/mag hydrox (ACID DISH NETWORK INSTALLER COMPLETE, FAMOT, ORAL) (5 sources) take 1 tablet by mouth twice daily famotidine/Ca carb/mag hydrox (ACID DISH NETWORK INSTALLER COMPLETE, FAMOT, ORAL) Take 1 tablet by [...] on above: Take 10 mg by mouth. od-mij-axzyy acid-lutein (CENTRUM SILVER) 400-250 mcg chew (5 sources) take 1 tablet by mouth once daily fv-jra-sblua acid-lutein (CENTRUM SILVER) 400-250 mcg chew Take [...] on above: Take 1,000 mcg by mo [facility] once daily. Problems Active Problems Problem Classification [...] Coding Summaryon 09-27-2023 Coding Summary HTMLBase 64 EfvjmaeuIKv1fWu+PGhlYWQ +ZD0EUJCcK23erOLukK2rY5 NMTElOSywgQVBQTElOSyIgb eGlAK2kqRZqEJJm IC8+SC7lXHQkCkaafUEyg4P 2lSE1G75oti9iMBgnhUN7CB MdEnStzuajo0sbjTi1GImdK mluOyBt PFEljQ94BNM2kQ32Qe58lPI fwYYrp1uvcGj2EmRwQEMwZH A6vVpoNVymu0EcXNReK81qz PUyh9L8 AHSpyBdomCDbLbFqfOO4xP8 rTXzvmqhtu1oqwaktCtn3lj 22rGBfw8S7cVX9U2TwlxM0E GJvbGQg ZhnhbLRCcN1zqjgpa7kgvkl wZjZqLTMvGUz6PQt8JFDmsE ntRtDpCC32VEE1LJUahjTiF 2FsLWFs jGbvHpW9y6B9Jd0ZC6KTZsq fR3DSNXYZNLjcpXP+PC90cj 56Q4QvWgffKnc4SSGkJYH6n WV8iY4c RJWrDMivu0G5kFS7N7HfqiF dko1lf6qyDORpOGflH86lkS Pcd2Z2NLOchHJ4QWDrzPldL iBzaG93 Oyc+FOThuNzyb8XyBmlax0c qx8tybZo5RzrdLECaraNtjZ ukWXZ7e8OaOl1cXNSjwAE1a LQ2mV9h TqEmHwB2KLcqS924EoZlsMI qMsyfU03tB6AffLE+PHRyPj s0XRXajAonZT2uY4MjDXXmx mctbGVm pFddVJ0bGLAuomuaYBPxiF7 vNYPiT8w4UcVgJiJ7LZnhL6 ThMLXfqgjgXy63qF1zUlXzV fM8WYci K8YjbzJ3QAPoaKJpNByhYHI 3S89bz9C9OTKaGQIaOLU8bO J7cL2ioWyeaihcqNDpeSucw mVydGlj DPzjVYmpJ484CLSyxYziNgI vZGluZyBEYXRlOiAgMDQvMj MvMjAyNDwvdGQ+ORKrZZP2n WxlPSAn lDFbCHtpYn1dvJwhmUawHF3 uJXJkfquqPIInjT6eGEWjuP HfwLxoMM1rGIDnrxtep714T iAxMHB0 QBGrpCRaP0UtdH1uRhJeSDS zQLJcC5LarAChUIbaN213WI utYhR8NRMivfDyI3WkAENnw WduOiB0 a9L1Zf5Xr6XbvkemU2ScbNG zVsPlNzqyEUq7K1PzUvyxiR I+SL45OBPmIP46EAj7UNP4b WxlPSdi GUQwY3MuhW8wHlDqMIZcCDU kOyc+PHRhYmxlIHdpZHRoPS anRAJrSmMbtTinHA1hVv6gY GVyLWNv yObjvRLwEuYln9xlKVZdERv qRZ3ldAgdS9IsfAK1OSNkr2 p8Hg19H48nD7CxsBA+PGNvb WA2xHB5 iQ0pPuSiJsP8PKpmI703ScE krVNwInkhh4wrz0whvEp9Bo M9CSIbrnOxcNlyPFQ0m5PsU p53R00m IHdpZHRoPSIxNSUiIHZhbGl uef4sjA2sTx8+NLVmaDV6dC N3gE1eEcFnRwB2NYsrR396E nRvcCIv Dggzc9pcr9dwnVn6XfQaWGT pzzGjjNwoJZM9s6SlDe28K4 KiaSlyn2YoUtt3qm52zNNlx 5O0cIJ0 D8PvBURqyvrhrKNnlUoqCG6 zXRFxeoawTERclH8dGAXpI1 q3NtYmBjU1HWaiW6BtduQ9Q GJvbGQg LPQnwGZBkG6plrufl2vqpxu lLqJwIXCrXXl4IMy4PSCneW yfIsJeXPR3ReF3KQB1fMOjd F2kvXfg whgvmY5dBts+WFS7kVGbpSF NOD6oNznpkEP+ZLDhKSE9oJ vzLUjdXZEwpD3cEFFvQ1a2A iAwLjA1 WBhaC6QzbdC8XOTwfFDfHKJ dzMQXlG2desfil0bjqfouQc CkMXKrOTj4QHu7ITMctGctK iBsZWZ0 AgE0IMS0wVKeuT0ytNotntb jtU7uBka+TtkitEsbKNP9MW b5W2LgJcn4MAQutOobLV0hn GFkZGlu Ny7xgQpmtPygFE9xTPSduia yt569HcSwf0nmLGZybKBwIF rqWMK7T96lv8X0ZXQlVJPnC IA5fBG2 fK3miSefaywopMTnoRdjkgM gjXawLErmCKmfH017BENxmF zfKfDiQFr0G0GaSfe4DFFzl MgnYE7h iSHfPYaqVf1btNjnmVfhIG8 bCWMwyubxr717GsQei3xrXR IcuROnMAibNQM3K49ji1E6R CMwMDAw OPQ9uFL5fM0omWaiesvtoBV mdDsgdmVydGljYWwtYWxpZ2 71FDRfnYhuJwEtwPz8S1JfC rf2XTUd mQqvAD4bpULaZIuxZl6guPx wsEalLA8oSBHiotwlp188Hq Hvk4sbZKFqlZRxAXynTYX8E 55cm5Z6 KTGjNBMmUUG0iLV1pH7kqRm nbjogbGVmdDsgdmVydGljYW szGSyvB786XIMawYioJmLty GllbnQg PSfgGRv6E3JmRmnxcBF+PC9 9HTBjHM91nZKqnNUxs0ozkT a3QlSkAETiTAH5xSgjDAqqh 3JkZXIt L71cwICxx8F9PAUlmTjmpII pTiWjzPW1tJ8lOCinuiito5 cxhfyoSuiej9kodo76nG84V 29sIHdp ZHRoPSIzMCUiIHZhbGlnbj0 naH9iZf6+MKIyfIO8pXF6rK 4iMHLlRnD9SUcrR021SqByn CIvPjxj d2wem9xsaIo3PsC4SGAorhZ hxRhbRAE2c2DyMu45X30kHA dpZHRoPSIyMCUiIHZhbGlnb o4qmN1y Ii8+NTZiyLM3lTC0jC2iGaJ gDlS2FLqkV594XlDigUErUg gmW87wD8RdgOJ+PIJaKyj4I CBzdHls ZE0nbOOhLGctKy4vEUL4AlV kAjOaWUriY7RmWXTucfengh qpvHK0AIDjYACnsU98Pp1fa DogMTBw oEERnQ9ppdjoy3ecpburFqG aLTNaPIv5QFk8UMJkhYgaQf LuHHA5HfS2WJX5hEXujE7az Glnbjog vY1zW6AaHUElacgmXs97yD0 pOeMpFaX4YZlzVfa+U0FNUy wgQUxFWEFOREVSIExFRTwvd GQ+PHRk BZO0aFhaNWinCBHvfP8eERD fP1t5QcHfAfJ1LDbzJ2ZwDK CtrppdSb47gW1yOnBsSvK9F AbhA0En eoS7UMPhhBCiJVgaLRN8S77 tk3B3LPOpVIYyGSD7uJC6pO 1hbGlnbjogbGVmdDsgdmVyd GljYWwt MDheM320TZKflDjuIpJiSbY 9BuN0Khm5V6VhTfh4FJQkgZ reIK2ylJUtDAfsDc2szMjdl VttZZ7p BWCxczpqZKBctU2pOTMhhIB yqJwrOS6aJFMewrnja637Pm KzSSO4RYJvyGTwQ7YzhR6uJ iAjMDAw GUKyO9IgxYIuCWyzY204CTg yOjG4UZIhlaMsG6GkTTDdrM nrYrI2x1D1Ss34WWSEHCSdi zwvdGQ+ EHSqZLK6sCxpYEceQXDsjP9 rZBTrW8g9DwOcGrG8BJogA1 MsNYSqmdwsTy18vB6gYbQeM nB8YJuq A5FjzqZ6SZIihVGkLLiqDUP 1G34bt8I5CIYnNPXbBLB8nL N6rG1zqWsxhfawmXDnfKpyj mVydGlj EPfxUGhnA320WJRljXzgZo5 CGZH4N6QpHff5NEFzoVifTL 3jwSEbXEzhAm2hoAdicXafE U8fTRPc vzgiLKXocW1gWEGbpXAtgYb vWV6eJGWpxslhq872SwIjSD M7HUYgpAJxF4IlxW0iUmSdS DAwMDAw G4PmtSDbJExtS607YJjbEiV 9OIIkxnTrL9VlMSVsoVrxIu W2a5N1Ns2UGTkadCI+PC90c a72Z3Du XpyqXjp6YIZtLDJ3cWZ5pZ6 iAVUpPBhfe6P4uGE9V9Pabs Xqot1pj3luCMAdKVtkK48tk WElc9Z8 RVTisPC4SKIxlWzkFnPxxP4 3Oyc+ZYEsjZhdt1GyOqlyf3 iuv3tycKv2PoJyVOBessXlc WduPSJ0 i8IlUr67E20hLAzsBLGsAYW dSYAfVLPmmQnotg9spH2xWf 8+QONpnIP9kHL4oC4dNvMiH kQ0MAja C920PmOpfSAdZswoe4mju7i amLt5PqUmGMTaycJamTjjAY J6w1PoMu89D8IgyWsbx6ZsJ fs0qx45 nZMec1Q2sFG2H7KhFFQihkj suVPjfTyiGP5qCTEtgxttMY EonI3rCSGjQ3k1BbFqJpR6R XyiT2Fj toK1MQClzXHfRSFhjWLLrI8 uztkqs4ibbtgfVjHnANUpFS q0JRc9GHRtvTplHkOzKFU0U xQ7WOB1 bSVhnR7urLmsciijtN8hKyv +XDo8y0cwrTLzSV7qtJB5RO 99JE98dZYlk8I3uNE6B9ZeY GRpbmct ozktwGD8VHCaXVVrxA56Tr3 ziNhmYo8uVTFvVIF2IMVduY JtP9CcvW0aRjYuUPKlBWHiZ 3RleHQt IOanB756POdwGsC4GVTqluY eE4BcHDYtrMxsBiK4r4M3Pq 6AJA87UC34UO64vKBmd6Q9o NA8F0Cm OFJvqhsnfmcinOD6CVVxBFM eqW07Mz3znBdkFw3jVLDcVH L8RKRiuGZyK8XfsF4dEmRyW DAwMDAw G9UjgUGjVPrgW396WWueKsC 0KVLrocVhI9FnYRQyeEipVa I2e1K8Mp3WEt63NT64TT20a XWxv0I5 oLD3N0OwVXOyzsyatoxigGT 6EAJuGPBoeR82It7kgTtqUj 2hBDSqYDF4HIImyIMuA5Tat G5oFiLh YOLlUHZtP9PhzNBkCYumY53 0MNqtCmD6YELsxyLhL6MeZL ZhuHmkWzF0y4H4Hi5QUPeqg dp2X6Yf PjwvdHI+BJ06ODXlHE62mVZ glEItc8podFw5XaNzTDQeKN A7wHzjBCujp7WoYHHeV16id IZct9J8 IGN (more content not included)... Normal [facility] ED Clinical Summaryon 2023 ED Clinical Summary [facility] ? [facility] Care [address] [place] [address] Clinical Summary PERSON INFORMATION Name: SPIKE NIELSEN Age: 43 Years Sex: MALE : 1980 MRN: Acct#: Visit Reason: Sinus Pain/Congestion; Body aches; SINUS PRESSURE/DRIANAGE, BODY ACHES, ABD PAIN, CONGESTION Arrival: 09/14/2023 11:11:56 Discharge: 09/14/2023 11:45:00 LOS: 000 00:34 Check In: 09/14/2023 11:11:56 Checkout: 09/14/2023 11:45:00 Address: [address] [facility] [address] PCP: Mary Perla APRN PROVIDER INFORMATION Provider Role Assigned Unassigned Marika Oliva HVAC DESIGN MECHANICAL ENGINEER Nurse 09/14/2023 11:13:30 Brennen FerroC ED PA 09/14/2023 11:29:53 VITALS INFORMATION Vital Sign Triage Latest Temperature Tympanic Temperature Temporal Artery Pulse Rate O2 Sat 94 % 94 % Respiratory Rate Blood Pressure /72 mmHg /72 mmHg MEDICAL INFORMATION Medications Given: Allergy Information: Wellbutrin PHYSICIAN DOCUMENTATION DISCHARGE INFORMATION: Discharge Disposition: Home Discharge Location: Home PATIENT EDUCATION INFORMATION Instructions: Influenza, Adult, Zoxr-em-Bpsf Follow-Up: With: Address: When: [place] [address] [facility] (1) Within 5 to 7 days DIAGNOSIS: Influenza A Patient Understands: Yes - Patient/family/caregive r verbalizes understanding of instructions given Comment: Normal [facility] ED Patient Summaryon 024 ED Patient Summary [facility] ? Urgent Care [address] [id number] PATIENT DISCHARGE INSTRUCTIONS Patient Information Name: SPIKE NIELSEN Age: 43 Years Date of : 1980 Reason For Visit: Sinus Pain/Congestion; Body aches; SINUS PRESSURE/DRIANAGE, BODY ACHES, ABD PAIN, CONGESTION Arrival Time: 09/14/2023 11:11:56 Primary Care Physician: Mary Perla APRN Attending Physician: Cassidy Hummel PA-C Comment: Patient Education With: Address: When: Mary Gonzalez [address] [place] [id number] [facility] (1) Within 5 to 7 days Influenza, [...] doctor may want you to: ? Take fatj-xsa-sqbejul medicines. ? Drink plenty of fluids. The [...] Applesauce. ? Rice. ? Lean meats. ? [place]. ? Crackers. ? Do not eat or drink: ? Fluids that have a lot of sugar or caffeine. ? Alcohol. ? Spicy or fatty foods. General instructions ? Take hrrq-cdo-lxpoasc and prescription medicines only as told by [...] use soap and water, use alcohol-based hand armature winder helper repair. ? Keep all follow-up visits. How is [...] have mo (more content not included)... Normal [facility] POCT Rapid CoV-2 (COVID-19) Antigen/ Flu A&Bon 09-14-2023 Influenza A POCT Positive Abnormal Negative [facility] Comment on above: Performed By: #### [id number] ####[facility] (DEFAULT)[address] [place] [address] Influenza B POCT Negative Normal Negative [facility] Comment on above: Performed By: #### 5 [id number] ####[facility] (DEFAULT)[address] [place] [address] SARS-CoV-2 (COVID-19) RNA IZABELLA+probe Ql (Unsp spec) Not detected Normal [facility] Comment on above: Performed By: #### 6 [id number] ####[facility] (DEFAULT)[address] [place] [address] Urgent Care Note- Provideron 09-14-2023 Urgent Care [...] 1-2 times per year Other Comment: POB: [place] - 02/26/2019 15:28 - Carmen Jama Substance [...] needed. Impression and Plan Diagnosis Influenza A (EJH12-MH J10.1, Discharge, Medical) Plan Condition: Stable. Disposition: Discharged: Time 09/14/2023 11:52:00, to home. Prescriptions: Launch prescriptions Pharm (more content not included)... Normal [facility] 024 Urgent Care Record [facility] ? Urgent Care [address] [place] [address] PATIENT DISCHARGE INSTRUCTIONS Patient Information Name: SPIKE NIELSEN Age: 43 Years Date of : 1980 Reason For Visit: Sinus Pain/Congestion; Body aches; SINUS PRESSURE/DRIANAGE, BODY ACHES, ABD PAIN, CONGESTION Arrival Time: 09/14/2023 11:11:56 Primary Care Physician: Mary Perla APRN Attending Physician: Cassidy Hummel PA-C Comment: Visit Diagnosis: Diagnoses This Visit Body aches ([id number]) Influenza A (J10.1) Sinus Pain/Congestion ([id number]) If you received any narcotics, sedation, or [...] legal documents With: Address: When: Mary Gonzalez [address] [place], [place] [id number] Business (1) Within 5 to 7 days Medication Information: The exam and treatment you received today in the [facility] were for an urgent problem and are not intended as complete care. It is important for you to follow up with a doctor, nurse practitioner, or physician?s mailing machine assistant for ongoing care. If your symptoms [...] so we can reach you if necessary. [facility] has provided you with a complete list of medications post discharge. Please inform your filter tip catcher/provider of your visit and for further instruction on these medications. Any specific questions regarding your chronic medications and dosages should be discussed with your primary care physician(s) and/or pharmacist. New Medications [facility], [address], [place] [id number], [phone] benzonatate (benzonatate 200 mg oral capsule) 1 [...] kg Body M (more content not included)... [facility] Coding Summaryon 08-24-2023 Coding Summary HTMLBase 64 UaacginbWLx3eRi+PGhlYWQ +BX3MXWQgE68luJGmjY9uL0 NMTElOSywgQVBQTElOSyIgb zSiVQ3tdRDkQNXk IC8+DT6hBXSbKiyclBMla0P 2eXF2U02nbv0hDHoaiUV0XQ CkZaYkaectm0olzVj8WCelG mluOyBt DZGwpZ03HBY2eN32Xi10uAZ xqZTho9cinYb0XiKaSTBdZC H3sAybGUmrp9RzJREbR58ls YYpf9N1 XIWthCkgxQHsKdXomZR8vC7 aHTomlrqqa3yabdmtKll6gi 37fJOhg3Z3tYR9Y4OsfxP9T GJvbGQg GlcnlJEPsM3cbyyov6gfdwe vFhRnZFObQHb7VRa4RQFjoE xaHhHuSS47JBJ5YVKavbMwC 2FsLWFs jQbkQuJ7i7I7Ef1DF1EMCkr wO8ILBCCORCojaEE+PC90cj 77R4UyGhkbEsq5TFCgKHH2y RR0kD9b RCBkGXvmu0H5rQS0F3GrciS wvg5si2djQNXtBPdoF44itA Wcw6J2LESylHE2LPDtrTsaD iBzaG93 Oyc+ARTwgNdxr4VyMksfe9o gx4cgwYi9TcdgCDYejhHzyS ywVSW3t1TmBg8yGMQinNU3t DB0hN9f MxQkUkQ2VQdgB879LrCfiJX rJehbQ85yP9EydPH+PHRyPj g0UEPvbUhrEH4jQ7WyZKKqi mctbGVm wLdbFF7dAJTjazsfBACbxE0 bAKZmC2t4ArDlNvU6NVlmZ7 UtTBOuphjbOr00gX7kNdQmY qM9UZtf D1ReypQ4KEJbdNMcSEadJEI 4N83yh6Q2QMJeEGTkUHK3mP K7oQ7iyQgxawwxqHNkyTeor mVydGlj NFwaNBbeZ605IMFmtBgyUsL vZGluZyBEYXRlOiAgMDMvMj AvMjAyNDwvdGQ+VLPbXBT9r WxlPSAn bECdDAfkRq5yoZssyIvlQY8 cCYAlvczcZAKgyR5hCUPzrZ NjmIewDG2rQMJpxnjwu979X iAxMHB0 XJIwrRTiK6GykF8gLlNtADP jCHDyL8LreYEwBWslJ464PL ycAnN9MQSscfWdM2QaWSLrb WduOiB0 m6H9Vr6Xn3HhlgwbB6QoaWX pTvDxPtguMNm3W3TlIvhjjW I+XP88BZUiQJ64WQp9CPX7g WxlPSdi BZAjE2GczO5tSgKiELDbZDZ kOyc+PHRhYmxlIHdpZHRoPS acADOuQfEjqNohCY9mRg3rA GVyLWNv dSzkgEHrCjYdd3gtCHJfUWl dZS8omKgbG8UfwGO8DHCnn8 r5Vk13X47eZ4DeuEG+PGNvb QM3vEC4 aO5kDfIgVyO2VKxsB862ZkU wuXEaDzqoj8skm3xtnQz8Xa H6XVIdsyCpmQgtRKA5k4LdN w35V86l IHdpZHRoPSIxNSUiIHZhbGl grv4vnY5rCt9+MYMjyVX8dG J4jY0fMeBiAmU2YUgsR403I nRvcCIv Ftqzn3rbc1szbOr4EiVvKQT jcpDakArmJQN0d2BkVs61H1 LohIfkz0HrGix7bw49eFRsl 8Q5gVG2 Z7AbLPWieiekuLQcnXbpKG2 sOEJsztgeCGJmsK1vEJMkU6 g4JlTpQrD5KDcfX5DmiaH5M GJvbGQg DNQncEYDvR0abyohh7hoowl wSyMeVSKlVCn0JHj2APUhaQ iiJlSuCHC9NqA3GZW2gEKqg G4fhUhh ypbuzG2nFeb+IAQ9cROzmRN BDR7zBkqcjFW+HELvGDS1wJ imIJvjMCCgnS6iHANxD2j9Z iAwLjA1 OGvgH2MrazB5IDJkkWBwHUD pnFDUnK8ldeqgp6kkwkfyDu OrVGRqTMr9FNg7OMLwuImtA iBsZWZ0 IsO0RVA6iASxrM9pbRvesvq wnX5yEeo+JkaloMpzEMF4LU a5Q0IzTmx3TSEntGwkGC1xu GFkZGlu Vh0maNxfvJqdXE3gLRWzgug ke869XuVlt8vkZSXnmPYjOM hbTEW2J59yu7T4PQYtAHOoB YT4jUC7 zF9ysFaxjukauTKtsMdoprU faWhpGUogXAetU105ZDAmwE asXuCwWFk2L4EcTkn6ZWOiy JmtVK5p iQWaFDvoLp5azIfalGsjUC6 yOECurhtvz074KuAbf2qhAG GdmXYeOPloXOF9S54co5Y6Y CMwMDAw IJQ1wCP2bO8stLbabqjplLP mdDsgdmVydGljYWwtYWxpZ2 95BNBzhXarItCktWj6Q3QmJ xy1YHTh zQduIE3cmEOuMGjtSg9azLx doLkePZ2uHJYrmvgkm735Mu Akg2khPUUjhZTsOSwaQND1T 30bf5B3 QCMqVIRxAGF4vGH9qM0lcIb nbjogbGVmdDsgdmVydGljYW tnJIchB018MQCxsQzaYyAws GllbnQg UEtyVVt4P6VyOygleTZ+PC9 3TPTpTR04wUFkjGXuj5iooE s9JdLeGBJyUMR6fPtyFRwvp 3JkZXIt D25pqQDna1E4CEBurJzrxQN jYrPqkYA9sU7gMDhafcazq7 qlkbaxAbgeb3jdmd97vN00F 29sIHdp ZHRoPSIzMCUiIHZhbGlnbj0 okP4zCx3+FFSsnPY2lQX3zN 4iWKYrJdQ7HNxiX423LcCqs CIvPjxj x1hhr2saeKc2WfE8ISOwduN rtWipLPU5b5ZyQe05P40cEG dpZHRoPSIyMCUiIHZhbGlnb h6tvN6z Ii8+QVBxgIK9vZC1wR0fRxP xRcB4JOtoB808EaKwcSXyWy qgU00xB5AqeUN+QASiDww1R CBzdHls IU1vwYTbGVpzKp7kUZT5QnM jPoFtBQffU3OuEKXxkrxcve sepZJ7WQNuIUWmwN77Yg9hl DogMTBw kJTMzG6uvylgc4hnpfeeBvU cWHNeITh7OFl5VIZrnVdvBq YeUZB2FcX7YSA4gRDowK4ax Glnbjog cB3zB9QlRCWtjdrgBd61bU8 kNyCqRpO2NBagFoe+U0FNUy wgQUxFWEFOREVSIExFRTwvd GQ+PHRk YFH4nVofRXsbJWYjpJ9vZXQ hU6s8HqToThN1FRzxS5TzPO AlamwkMk13yF0cFoSkOuI6S KzpV0Ki btU8KNComKTdLIheGCW5J00 dr4Y6ACFfUMAnWTU0bYL4yE 1hbGlnbjogbGVmdDsgdmVyd GljYWwt MRlzA844XFTknDheOpZjZfG 4JfT9Ihz8O5MzBme1DKCnuY ycCJ8ywTPpQOoaSn7wbJker PgrBB6u LMGblcytCNKkoY0xKAQpkGC vyOdeZW0fCRUongusp601Ps BxCFQ2CMGuiIUjE9VdnF5cK iAjMDAw UGApF5MpcMMiDBeeR130OKd kMiC5HOTqfqXnE8HfGOZilP ceGfN1s4Y0Wj14DSWIZNUgz zwvdGQ+ ORHbKLI4kGxcXOunVQDntF3 cTQUvV3m9CmDfRqI0COvuQ7 SsQNZichsbQf98gS2kVfRfT nS4FExx D2KyknN4MQRfdVUkRMguBIQ 0U65om0P8IZMdBIBiRLH4nX V5rT6gsZuposlxkOFvxYcxo mVydGlj WCkiIEoiL348HTJhrDjiWn0 JKQI5Z3TeFid6YGXbgFozRZ 0fhSKwSLdkNq8rgHsjtIdcM A9eTKGm nbzzBWYmhE9fDBRmaYNmxYc qNW7jDWGhzrbuz063VwZaHL J4NMVclGOgF3FetV6rXiPaW DAwMDAw P4AwlAJeIMhjU206ORhoUpD 0JXVdjoOyU2EtCJRmoUdeDx G1l2S2Mr7RVIwblJH+PC90c z66D5Sg UgvqCqp3TQHnKXA5hJH9bD9 qPDEnTJiry6P8oUP0M9Rrsb Ujfq2ku4rlSFMgRFrfA58tk IMax9B9 SRHcvJS5VNNyyBgsPrUpvM2 3Oyc+QQCyjDjys3NlAdydq0 bjt5oabMd1JoCpQODpsoWpk WduPSJ0 l1HuSk25R88uJGdoAQUcPKN qQTAcIFPymWcjgb7rmQ5cZq 8+VVMryIC9gVL1vK2eJhRkR cP6DUdv Z630DyGkpAUkGkacf1gen4m tlAa9XzNrMFYcbjBrtQujKP D7n6EmEb04I6WwdIfsm8TeU qi2cg62 wIIru3K4cOH5E6RyNMMhvay pzEEpmLheEA6zLDHkcxxrJH SzdK9tZBCsJ7t2MdEyCaI6J XaqS4Bf riG4JYYqrVNyQWFslIDLbV3 vrsisq4jcsgczVoKzQRGiKP v2LNw3RNDcpGooUvAeORH4X tJ5EOM6 xPIcsK5chRzqmrrceT5uZdt +TKw0u1boaFBhOK5ubIA4OU 18CA43pMGqd2U4xZJ0C1FkV GRpbmct nrzteID9IALiKLXycN56Yq8 rkOlpCd4hLXZtBXX5YLNcjH ZhF2HenX3vNnHlKKRxJRRhW 3RleHQt VWyuQ496CEniKgO5ZMVhqrE jG8FlOCEioLlxHkO8z9B5Iq 0WZW39UT18KI32pOBit7Y7p UV2V1Ab CUUborbuzvbulYY1XAAyHQT vuC87Sv1xdVdzSr3dGEWcDU D1HJBbdWFjA0MisR9zPrWpZ DAwMDAw A1UcnONsNLxmH171NPwhXfQ 1TKLkqlWfW6GmOHQnkRinEo W2a9C0Mg7HDo29BK62ZE99f IArw9W6 fXF1J6QtIGMinxjfvbfijVX 4QBNzTLXgwJ90Cw3lhIdhDj 1fSQCmQWP4IFBudWTmX5Mzc N5mQmPy PITtEPJnR2EzgTHcHVmkW77 1NHbeSpV1VLRwzhLtN0HsOC CxeFluMoC4r7X7He1BOYxrd vj4H0Qh PjwvdHI+RF49HOUoMO59tYF djINff0litPg1KxPsAUBaIP D8dWwqBEwgn1SuLXAzJ70bu BYhp1G7 IGN (more content not included)... [facility] Testosterone, Serum LCon Testosterone, Serum LC 404 ng/dL Invalid Interpretation Code 264-916 [facility] Comment on above: Result Comment: Adul t male reference interval is based on a population of healthy nonobese males (BMI <30) between 19 and 39 years old. Kaitlin et.al. JCEM 2017,102;6315-8003. PMID: [id number]. Performed At: [facility] [id number] Danish Sebastian PhD Ph:[phone] Performed By: #### 1 [id number] #### [facility] (DEFAULT) [address] [place] [address] Provider Orderson 08-18-2023 Provider Orders [id number] TGTIFF [facility] Coding Summaryon 08-10-2023 Coding Summary HTMLBase 64 DblvelpxKYe0dNp+PGhlYWQ +ZH3CEGJeB90alIVfuE0tF7 NMTElOSywgQVBQTElOSyIgb nRrTM6rgZUmFBYs IC8+YN7xDXRfVtxsuXTsd1W 0kPH8C33zth0mYRmnmRR1ZV JeUjPaqawow3ltfMd7QZulK mluOyBt GUBlnT58XFG2zE59Xv25cVC qjPJxr7ensEn9XlKnLXEjDY Y5aDhfNAmsf2PuBSRlR25sg VLtd5P8 MNGxgKurbGJyPxApmNL8cG0 lMTtbpglqv5cejmuhSuw5jd 66yFNya0B1mFV0B4BnbfA4N GJvbGQg YobtcTFDuX0jjvvtc2acsqn xDrUpSFQeRBi5SQm9MBVksN wzOsGcPS18FUR2WJXxqyNgQ 2FsLWFs fFxoYtY0k4Z1Sc3TE1POQkd yD4JOPDGVYHoigYY+PC90cj 77Z6MsYdywEcx2RXDbOJK7h ET5eY0n XOEmTQltx7D6eLK6C2JtgvD jxg9vt6bzQEHhZWmpU22seG Yiv3Y9KKQmcUD2WXMgdPpsP iBzaG93 Oyc+FKOrdLijg3OlRpgqx8s wa4zxuWs4UxbtDXQxlqBdeI dsZHC7p9DwHq0hFQYxiMR4j YW6qP2a IdSeWfC6QTxpB649CkPjyXW mRrmxH85eR3LgiIL+PHRyPj u8DCUelKorYZ6pL2ZhCQTks mctbGVm sDheFG8qEAEskqcqLUAzfY3 aKKQyX3y7YaPmKwQ4YBdhW1 YzISYkrrfhUd63gT9fMuUwA gN7DAwf J2DgbsO7QSAoaWSySKlqWQS 5L87ll2A3ZSNbHEKmOQV2iI O1zH4jmMzrdpswmUZxlTgtz mVydGlj PTrdYDudV858WMWnqCphNlY vZGluZyBEYXRlOiAgMDMvMD YvMjAyNDwvdGQ+TXYpSMY6f WxlPSAn bQRuDLdiXs5jbCfhoXapRG9 cGAIggtwzCBXmtA0uSTAjkG NmyHazQQ0pLKWmpkhwj514N iAxMHB0 QDHlzBGeZ8CkoN3jDhPpDQY oTDXvC9BfhEJnAFhjD011VU jaCnW0NAVlhpWsB1IdTROqq WduOiB0 h5E6Cy4Rz3TabxwlD5XnpUA aOwSxNsvkGLg3S4HfEnbgqE I+TO84KNAjSD96YEm2SBB2u WxlPSdi OBOyZ6MbiT1yNeAnLHRmSEO kOyc+PHRhYmxlIHdpZHRoPS inEHKxCsJzbJifLK4fKb7eP GVyLWNv qGlahRKtLcMpw5bqPZTeLDh uGM4gtTyzT5KrwHD8UUVzl4 o1Fq87K53cE8CcnAC+PGNvb KW4dVO9 uO1rOoCaNhF0RGrvU607ZtI huXOeAcyha9pdm9kdpVa2Qq D7CPPbyqOjgTbtWOZ9u4SgI y73B69m IHdpZHRoPSIxNSUiIHZhbGl wnv1qfT6cCk6+NODimSK2yP E1yN4tJnMfFtB7YLrzN326L nRvcCIv Qsnbn4ujh6ywtGv4IfQtNGW wbmKixDmjCJR1p4KiWb39J0 SmfWiyl9YnOao3cr66kUOsr 5Y1jYQ0 H7RuOECgqfkigBRhpQrzNH7 pLMQouisrTWIjjJ5hWIDlP5 e5OsFsZqC7GThbJ6FxyxC4U GJvbGQg QAKjaHQNtN1utkhjt2sgaon sVhXuSINjKUd6DCc7VZZxhS zsRvYmVFE4ZqI7OEO2gPYoa I9knLbq mqdqrU9dWfm+JSZ6aQFqoAU YNC1eKsfykPL+CAPrEXE7qD ysRFmrKCPcbA7qXTFwB0v8P iAwLjA1 XDazW6PwfbT3NPNgbZYeCOP smHOMdV9otodjp1elfxtzHm TdZLWaTFx5FMb3PZSugGqcX iBsZWZ0 DuX0PYG6pYBsgO9pkSprzgw oxB5qHzu+WdgwjUapCKD2EQ b5L4TvNyo7HFIecWdjBR1iv GFkZGlu Ty9hcWasvLgqPD0wGJYfmdk th818NxXpd2mjIIWijQVeZG pyNQI3T79rg9Z3OZRyYXXvV HT1zZO8 vG1noFwcmojulXAhwUrjxzJ otOpcAYspSAlkB579ZIWsaY qmOpXhIRt8H1WuGem4HKStf DamYN0n iNJzGEidWi8tkOgsfGafWV1 wDOJcdcfai513RdPmo6qvOH YcmXVtTEqhZIC5L20iw8O7A CMwMDAw SLO0qOL5rC3qnWharbeflDM mdDsgdmVydGljYWwtYWxpZ2 79TVOtkOcfXfPbbRe2E9FwN om8SPCm lIswWX4glEOiVIayEd6yiZm spQvrWH3xXTZydxgxd052Il Ogu1opRMXyuHQlOSbtURF4R 99ad8P3 NZBtECWgBTK0qWQ3tF5fxXy nbjogbGVmdDsgdmVydGljYW mrTBobE567GJFtmHzjGiJir GllbnQg DAjvNMu6U1DiYvwmlPZ+PC9 4XBPoHI47hGWhmTStn6cksB h4SwSgKTKuKMP6pDqkIOade 3JkZXIt P41vmPUfb6U4MHAbuSsxfYF aTqGsxHJ8lM5kLDirkofaa0 aybbwwDkymq3snso47xB46F 29sIHdp ZHRoPSIzMCUiIHZhbGlnbj0 evR5jSk2+SGUgwKS4iTY3cD 9eRNDwTrG3XYgiS795IzHcd CIvPjxj j8jbl0sfyKa1KgY5PSOzaoG xnFdqEYR9b6QpVp26Y55mZA dpZHRoPSIyMCUiIHZhbGlnb i4iwI7l Ii8+QZYbsVF0cWY6sY4yPeJ mZuR0TCtdY316MnMdaRUuYu ypM09yQ9YboPJ+CIUtZxs2U CBzdHls FQ5tsBEbRCzxMu0uMED4WyL aWwUjAAeeM2QqPMYjapleex owqWB3PUElUJVqvA44Pv4gx DogMTBw wAQPmY6gkppfp3ludjebEfI pFWIsKSk6WCp2TYJiqRceJu RiAVT0EgK3AUL6yJGoaK0ek Glnbjog qA5sQ7ThAANbeuzcRt20zD1 cTiAcHwT3XHpcQct+U0FNUy wgQUxFWEFOREVSIExFRTwvd GQ+PHRk OJL7pYcrWCoqXZLynQ5mIEX gR9n1HuZvIsL5ELwzR3ZpVB PgqwreWm31pF8wTcSvXiB3W TvvD9Rg jpL0BZOibVYzNDjhKEW4D69 am5V2ZVNqDCRxGEK0uFS8dD 1hbGlnbjogbGVmdDsgdmVyd GljYWwt IGzyP820RSMvuKasTxTwGmF 8RcM2Dpb0U2XsTzg7IRMviB lgUX7cjMMtHWyxOs2hzRtbq FieZQ8c EDNjeupfGZKwqK2kGVXemXH gvFraXI5nPFSnjhncj100Ab DpFHN7UBRxiRQnV4TdjS6oZ iAjMDAw GDQrK1FloJBjQIojM384XTs nVrZ0DZBnqcBcD7WuLSAuwK sfYsF6g9H8Pc04EMFYGORxz zwvdGQ+ RTGjQIO9wEpsLIclUVHuyU5 cBLFtG9k9KwQnWcY3CXvnK0 QaNEDwcxujJf40sA3aKqCzT hR5EErh O8PvanI2HMXenPRaHNczKJA 3M87ap6U2WISgQFRbSDV3mF B1iL9kkGigpzognOUawYwbl mVydGlj BQusYChtX511WXYldNetPp7 GFKZ9D4QhTbz6AUThdFpyPN 5gjGLfJZldBz1bnQncaVdvO M0dYFBa uyheWWTfsO4sABIqlBAleMg zXF9sHOHmzndpd937KgToCE R4DCLysVKiU2SfyG5oCjUtE DAwMDAw Q5BhoKPlOKycB173WGziXwB 5LDEmviBiN9ZoFYCjaDzuWx D8p6G0Rr1ENWxpyQM+PC90c c24O4Pc BtqpZyb2XZFmQEF1lJI4eV4 iPJMqKUldf2M1hOU2O5Mqmd Azfz0aw5fpVBQyFEfcM55gl SCbv8Y7 FGSnqPP4CEOcoDraLlApqU1 3Oyc+CRKkeGtev6ZnHehdp8 qcj9vwzFw7NzJoVXPkvmYup WduPSJ0 i7PxEb91J50gHKiaYHOnWEB jCROaDVBuaEykkg9ygY1rRd 8+PUAapFB3yQP3cU2aBxYdM jZ8FMft M141XwLatMNtGyvhs3jec2z qxQx8VgUgEFXwmbPhrVwuLE Q0b0YpRc20R1ZqvNeuy6OjJ gq1hw59 bDCej8X6cDE5R8PwRYEhfgs lfULkvAzhKH6tPLMdiwrxMT ShkB4kWMWwE7j8IjTeFuY3G BkfT5Sa hpO5DITzaWQqHHOadBNUwW3 srercf5ypjwbrWvAoJNOrSS k7UJb7OWTvlDgpVkHtXDS9A xD7ZRL8 yOEbzH0ymWhismcyiJ0kBjk +WDt9g5ulkDFoXV9eiRJ7ZA 98OI04rBZbx3X9lNG2J4VmZ GRpbmct njwalQR7GLRfEJEtcC39Ig9 ykOrxAi9bPXDyXLQ1ZOQtmB YfF8FzaT6gNuMaEXXqUKXbY 3RleHQt OCfaU184FAcvUaJ1AQAgjlN hQ4YsXSUwvQqkHxZ2z1G8Pd 7VXN14SN29GR21wMAdv8G5b CJ4U0Td LYBrtfloyjtlxTJ0PRWkQYD crP68Gj3xsFaeYx7eVCFuKQ H2VSJcfUWeE8YcuA0aJeSfC DAwMDAw U1CwiWFzPBrqG168ESkxUxH 7GTHvfbNcW8PqHHAvlYwzJl O2d9P9Vu0DBo70BW31EW27n NRec2R6 vVA6C7UyHJOxkojnkspgeTS 0WNIcWXLueP19Gd3bdKmlDq 0jMFDqFJO0BBRutITjN7Lka S8zCgLu EWTuIUKxU4BzfQUyUNfmB73 4XFwxKwW6NDIwsxFiN7ElNQ OpdHkmVbI1p6K4Tn9KGLvlm sp0R2Tp PjwvdHI+EO54UBYrKV31jFH fsXUvn2gnuXq3BsPuKXVhDB K6fOpkOLtqx9FtYOLuL24aj WGwb4Q8 IGN (more content not included)... [facility] Coding Summary HTMLBase 64 QkjxuwyzGEa7vOk+PGhlYWQ +HI8BQVKaF61glZSudV6fV8 NMTElOSywgQVBQTElOSyIgb tVhUQ0baGAwAKUr IC8+CQ8xQDTaQbvceQUzy3L 4lGA4V02gog9iFOcdaWY9KC AqVzPpkylxs9lfpKb7PXyaF mluOyBt OOMhyT74OAU6kC15Qv10iQF czVHbt8ffsDq4HnUkJCRzEL C5sMrlPIbhq9LoMBRvP12lj MAjq7G5 BNRhpXqrvSOdCbMwyDL3dJ8 bPEanboniq5mgoowfAfm1oi 32hBItt1K0pZH5E7DvxqZ1C GJvbGQg StetnLJZrT4xvgmtm8sthao mXkOdIATeBBq2XXr7QPVzlK chEdDxDO42TWC6EPGckfOnK 2FsLWFs cJvfUoV4k2R7Yn2KP5WRWvs iY8MURSQXVQwsjPW+PC90cj 56L3WyDgkhRvn3WFAnCGG4g DE0yK0b DROpDZtkg5R1cCI3I1PxdzB rgr8gq9ffHSMpEBptR99qgU Fvs8R9HOIkgEV4KGKebJumH iBzaG93 Oyc+OSElfQrbk2YxZqaes0j bk9vrwUy8UaynEMGsewYgbK syTOV6t6VoGw9vYTHewQF6k KL9zO4e RqFsCnL3YWwkS514ZtIzhSY aJunlJ99dM3QblWX+PHRyPj w4BRJdnTetVY4gZ1KjQVVnk mctbGVm qWweZT8cFTLjtpeeMVDfbR8 yMLCkK7g2YjAxFbG7SInjC2 IiPGHhjehvGf65eE5dOrUgW bY0JQxw C5EuagS2VOLrbWTvBOgnSUK 5Y42ey3R8BMItSBKoTAW4fK G5jL6zzUfuxgnumEGcbTgpu mVydGlj FAbjUUflQ553JVHooIzzQoW vZGluZyBEYXRlOiAgMDMvMD YvMjAyNDwvdGQ+REHiSVT6o WxlPSAn eDIqYXwxOa0vcFustErwPC6 mIXCgjdcyBHVfnG2nIHUkkB WweEebRS4wBTWonusny599O iAxMHB0 WUYgoNAhU6XyfP5sXaTuUNZ yLHNrV7KxdAGyZZlcR977SE kyUmI8QMRdsuWsS2MlWMThv WduOiB0 d7E9Ck1Bk0BmpbxuR8IqgBS bLuDvAukhTRd7Z4GyFlchwT I+EH62MCYlEA22EVc9UPK4v WxlPSdi QARfD3ZizQ9xLjQbLEOpZPL kOyc+PHRhYmxlIHdpZHRoPS uzEVQfPhFiwNkoDQ9dLb6hT GVyLWNv fIpuiVDhIhMbc9gzJNReSNn mRJ8dmNinK7YhkTF7HIZsb2 e9Dz82E31vU3LjxZO+PGNvb MM1uPF0 qW1vWuGaVdJ5TPgnX467AgQ uaJAkHirvz0nte2evvJn6Kj F3KNTxaiPasHjiGJT4n1EhE e92B98b IHdpZHRoPSIxNSUiIHZhbGl uis5tbZ7pHi1+DMJglRW0pO D2tD1dFvPyStY7SYrfX822J nRvcCIv Gkoge0set9ptvZq8WcBfJUD sceJufRgbDTJ3x0GoKd16T2 YuuButq5DsDqc3ls44oSWaf 5Z0dZI5 L6SrLSRzyypkwKKjpHayMP8 sEWIbuafkOWPjmQ1pSRVfL4 h0FoPxYvF2KFliI0PxyuW6B GJvbGQg OGYzlCVMiC4uwsmdr5gjoqw nCkGzDNHnJPj5EUl1VNJikY peThYpAGA6RzA2ZLV8dBJrh U2adQux rrvctJ1pAmo+PUN9bNCrgNZ FZE5fHjytjVS+WAJlJNL7uO ntQTpwUUPmxU7gNUGjR5y0P iAwLjA1 QIvxN3BdpbQ5FVLdfLDjKAX yqUWVxT4vhjpai7gimadrGb SbTCMzCNj3LOz1YUWnkFcbO iBsZWZ0 HmP5FWI5yPRszL9ctUkimyw zqR7oMla+EveplItvIBW9KU r9Y6LmVpz6UUUfkCjlCF6hf GFkZGlu Vo1zeYtgqHjhXY5jHHZsdpd jm903YiWtq6ixYUBquFRbJC weLEC4X91vr0U5DRAsGEGrL VL3aIE9 zY7mtAxjewxqzPOzgIrjauR owOylUMhqISnxV033RXTfiB jvRgPuNBv2Y4WlVsa2GKCrl KudON9u aLLnSLmyAf2lhVdnrKnfAJ3 jVBTzzttma042OxSwn4lmQY MuzXCwRBpkSRO2Z14dm5Z6T CMwMDAw DPB6hST9eZ7qgTcddyxvmSK mdDsgdmVydGljYWwtYWxpZ2 64MLLbqXqfUhGspHf6O9HxV xs2AZSv bAveWZ0lfXYqUZbxGi7mfCp ukMreDK2jIUAyqgvdl459Px Cmj1voYIIapCFbWTupIVW9P 26fe3M9 SJLvBAMgKEG2yTT1bX9gzZn nbjogbGVmdDsgdmVydGljYW bsFGmzI650MYZjoYwxAqUcx GllbnQg KDriAKm0B9UmNdkqcZI+PC9 9XADmAB27dCAawWJwz6fowI j8ArUhFPVeDNS0bTfoWGvaw 3JkZXIt T77hrXWcd5Z0WKCraOaolGG tQqJcvNE6eU6zFLvgbkxnf8 qxjxgpQhoqj2ozuj34bL05B 29sIHdp ZHRoPSIzMCUiIHZhbGlnbj0 zeK6cEv7+QFBgmHS9yUW5bU 9oGTXsVkT1BFymU550FzGrr CIvPjxj t8bif8kabNi9EnA2IUTebgU cuVpqHOK4f6FdNj04J68pFN dpZHRoPSIyMCUiIHZhbGlnb n6kgU4h Ii8+IJGsnWL6yTH5bX4tEzD bIqO7ZQiuA929BsGwmHChWf oaG21qT3AtmYZ+IWTfUhg9T CBzdHls JC6amCNdVZwjQd9wZLT7ExT qDbTlFWgdC2UiURPnsvseux gswQF7SZZpFIKmbO72Ic6fo DogMTBw iARAkH3kuhxyo2oalwthNoS iTQPuGPa7DLd3GTSbkQknHi AwFVZ7TqP5HWD6uWXhlO7ku Glnbjog lF0pG7SaTGNjztfgPu40aY8 dHiWsSpK6VAjgPrv+U0FNUy wgQUxFWEFOREVSIExFRTwvd GQ+PHRk SUB6jHqoRQvtTIKtlE6tDYL iF7k1EvUlTxN2KWdoO6GhBZ PjiujaQi95gO3gTfLvYiO9T YusJ6Go dmJ7FHUmpAYnIHqiYET9H38 oa6T4JRZqYCOrSVL1hVM4zA 1hbGlnbjogbGVmdDsgdmVyd GljYWwt UGllN976XSZerDbfNqCeOqH 2GrM1Evc1G0EjWvk1DETvyW hfOZ5xoRXqQKsdVq0rpGwbn SxnSQ1l WNHwznomCJHnrN1cIRRnsOP jpVpcTX9aVLFyortvw081Hs RsRBR9RZHrpZAcI8GvaO8aG iAjMDAw TCFgU8GtyCOnIDyuO751PEs bWmH6HXYwfdRoF3QcNJYlkK otWtJ4j0Q7Em25LUNYVPKfi zwvdGQ+ PRJtRAL9pGueLEkrJBOmzT9 eKDBjB6m1IdDiQbM4ICtnZ7 SpRYLkqhblHf26cP4vDiZdR wT5GYhl M4JkupB9TDPvvYUaOQrnHRW 8I46ja5D7SEWpGBYiCLI0uJ V9uS6leEroojospBNihYbaw mVydGlj GRrfZAmcG722HTTsiGlnIp7 GUYC7L7JtObf5XVTfwSbqNX 4raEMmGYdaQk3yzUsznEerH T3dMRNw ifmjAOYeuC6uDJUseORysFf rXP9jTQFlymrsb924IaEkEJ K6HIVpoOOxD0HncM0sHeAjJ DAwMDAw Z3OolUAjKSmsU985OBvkXgN 5QDAyjhYqB1XeXTRmwOakPa X1r8F2Uh2LCBfqmNH+PC90c h32W7Lp FmnhRmn4KMPnYTJ9dSX0gY3 qYDUaDNzxm3J5lJX3L4Touy Essw6go9mgENOzJBohZ15bg MGmr0S2 MMEfwZA8SNJytJheLoPisU4 3Oyc+XYUjuCusc2AnIajto5 dut7jglCb5EfThEDHmeqTvj WduPSJ0 e7QgQk91R82dIVyxELLoVHK uAOGxWELfcEspqi3fbQ8dZg 8+VHGrdQB4eJJ3dW8xCmByZ sU8LEec P542InDteQJfAsily7ivs7f lcLz1WlEuOVRftuUdqYjvXG W5a8FkQl44W5TsnOczp9YiE xx5fr74 fCHxe6U2hHD9C2FtQMRtzwo kiAHxjTeyMP0mKXZlerzwCV TbhN5aXTVwE6o6YxIuDhB5G EgcN6Uq skM2NBKjzBJjEOKrmEAKaQ7 xcbcfc6cegmplZtDyYMInYG m0MBy0TNHlpWffXaReRWV0H dD3UYT0 tIBqcB8ciMiljaxndJ3kSgx +ZHu4k8wowQHaIJ0ekTR8IV 42BV08zXRgb6Z4yKJ5C4PzD GRpbmct jduuwBU7HZKqRVWlxL99Gu9 joCrnYo0pXQRkVCI5BAPqgT DkC2BjoT7yGtHoGESaUIYvS 3RleHQt CUnuZ652TGctUtX3BAPhsoE pV1MpQVReqFroHbU7g3M3Dx 1ECL93KA04EM35dYRcd8W0z QT3Z3Kg NBMssyrbdeuxyBT1MDXeTYN okM89Hn9inZyvFl5fRWUvKN S1BURehGErD0QjsV9uLiEhZ DAwMDAw W8GzeVAcMApmU203GPmuYfU 1HRAjbnUjT4OkMPMdySeoUz X1g3R7Ev4VCp79NX77IY00s JHxf0M2 lIY4K9RhHYFrskholddcwYY 4FIYjOBGzhJ47Bn5tiWayXw 9iHOSdMRB5JJRadSHtJ9Vmi M1iCyKr VCWdRBIrH6AuwLIxRZviB68 4UFvmXiI1XHUopcLwF9ReDR YcbTrgTiA9n6H2Zt7LGBjsh yf5M3Wd PjwvdHI+SU91UDByNU14rAZ qqVNgl0cgaXw1PoBzTJTlKB X4dSluADrlx5TyEGZlN96er SAxg4S0 IGN (more content not included)... [facility] Coding Summaryon 08-02-2023 Coding Summary HTMLBase 64 XzplmubdUFm1cYp+PGhlYWQ +ZY6BROHfO66tmRLaeS4oY0 NMTElOSywgQVBQTElOSyIgb jYpUD8aoSLvBZIe IC8+WD1eXSWiWqkonOIaw5J 5bUK1Y73nel7xHRhyiRO1VY QqYmHothefg8lhyPv3GOurS mluOyBt ZOBlyG58LMQ5oU47Qf93uSE zvXJnx7xcgFo9NkHwFEDiTU X6fZiwGQbfy5WhGGMpD75dw SCdb7J9 UAEcaMmhvNHyEbPxuGD2sD6 gORazuecqi6mieqhcDks5eb 35bJYsx7J2cDE0U6LxbmW1J GJvbGQg MzrfwYFExK2qsgfwd5ozlnt vKpDqUNZhTNh5SJx3TZPkbR ykVxOxIM36MJO8YEBudnCbT 2FsLWFs fZxhAoO1a0E1Zb4RL3EBBcc dK2LCSJGNNDsdpEM+PC90cj 62J4HwZmijOpn8QQSpJTH1d LF3hY9u BDBlJAmdp1X5nWE0K4SzeoH azy1tm5qbOFZoAByxZ61tnB Ukr0H0OVFjhCC3ZCAkeCkzQ iBzaG93 Oyc+IVBbtNdzi5MdXzhhp0v ca4wcuZv9BpgfNYOrdeBliO hqSXY1b1RfXe5kVTRzfRK1i GC4pF4y EuCyHqZ5NNpvI044JzXmjSL mNwozV28zD7VpgYL+PHRyPj c8XYLfsTizTM4fJ6SuHMCeu mctbGVm kKwlWN8zQEVpqgdnFJMxsZ5 wNOVyS5z7SvBaVoN2MVtyF5 MjEVNkytznHy56pN4xOhJoN aH5PEao F8McxpF3CEUbgOTlNEkpAJK 9V82vc0D7ZTQmMQYdVFG0qX Q9bS7wsRjfwqynqFFqxCjdn mVydGlj IPadKQfdJ594BTSfcYixJaN vZGluZyBEYXRlOiAgMDIvMj cvMjAyNDwvdGQ+HEXkKNT3f WxlPSAn lOPqQHweSn4ooZhkbMoaVH2 uPGEyhhvrNLDtrC0gAIMxxW LofMuzSM1jKUNvbjuck324B iAxMHB0 UCSuhRYwG6LwcK6mZtXqSTT bVLIdG7XfxRAeZFfvZ378RL mqVvS9TLNrycQuH8BuAHQjv WduOiB0 m8L3Dk5Ep2ElaqotZ0KzgQX pMvGgAlkaAXc1X1RvFwlnhC I+BQ98IDCmHU41URy2UDJ4j WxlPSdi ZTZnW5YdmK5eDoUmSUNbSAX kOyc+PHRhYmxlIHdpZHRoPS qcTZKlZyFihJccVL0nLc8wG GVyLWNv qEleaTGtTmGie8mhKPAkRVh vAU4soOzbF7DyeSK3CGCvr2 v0Pn94R49qH7GqdIY+PGNvb CQ0hKT6 oE3xXtGrIzD6SCspH097LyZ qaDCtHjgna3yds4emiGb3Xa E5JFTvfeNveEqhQQD3e7QaN s54M22c IHdpZHRoPSIxNSUiIHZhbGl bot0tjM8xNi5+EORxlZM1nN A1xC2dTwChObX4JEfkG314B nRvcCIv Nbzbu0qgh5gqsEp9JtUgMQJ bbrQyqMzlHRB0i7AxZe48Y2 AqqGtxb4EyKpc6mq76eLDtc 9I2jTX9 B3DiJPHqigqevHVleCalWX2 hOQZjxbpqBKSicS2uMJZxO5 i6MgZcTmY8FWhbA2PnvdL8C GJvbGQg EGPooNXFjG0xoomiw7coenk sDeMpVFLcHIs9HTl5CLXehZ ekVpAsXXS3SaM4JSL1fEHes S2qkNfa iwxrtI5qOud+GZY6dKEmxFJ CPG2iFzmqrOH+YQGcQJD1sN suPBuzJIZhlO1iQMBrB5v8J iAwLjA1 ULybF2OmwvF9CIAkeYFaNHE mjDOAoO2vidtmr0qiqavbPs BiZHLzLIn9YFj8LWGqsLflE iBsZWZ0 SlC6UQE7uKNewO4kbEflqrr qvI6xXsx+PgbvePvqQMF9BL d4V1AkZnx1INNzoOepHZ0ce GFkZGlu Vg9tyOxynOosKS3aTIIefhn gz243GoNru6veYUQrkCPzJC ydDDL5T69jz2O0NMWkPQHuD PR0zPW1 xX2gvFrxqnbnnQIemHtyjyW qtQwxNZusSKryN517TADkhQ coWxTlPKe6E3WfVro6PVSzz MbxWT3p cWGkOPxfVr7lsEqamIfzBM3 dRRZteulxj730AlIqt0mpGF ZnyMGzRDwbIBH7G82dq3Q2Y CMwMDAw LTE2mWS8eW5dfLlwpiqroCN mdDsgdmVydGljYWwtYWxpZ2 94YIJmtFyzUrSdvMz3N1BhD cn8GJQs nMmzAI5coTOeZIdzVq7npPr kaDxhZQ3gUBGappvee466Aw Gib1qfHQUztROnKEemBNA8J 25li9P4 FXDwETUaWBK7nTE2uA1ndEg nbjogbGVmdDsgdmVydGljYW xiILseM576GDAmuEbiTtFmu GllbnQg FVskFPf8A1CtTpyddPV+PC9 3WONfOV51dRGhvQWym6rpqQ f8EhGnZEWdBUM0uYbaNJfsm 3JkZXIt N68qjMMcf3W1JPUfsBffdJC bYwTnuZT0zO7tSYefozgtx6 guatgwPfloc5iqqq16aV00G 29sIHdp ZHRoPSIzMCUiIHZhbGlnbj0 gtC7tSi6+ABGorCB2zNP7pU 8ySNPkUvG1KZieY380DaKqg CIvPjxj j5now7irwIc0CuJ8TOJwazW fnFqrLXM4x6YaIg98I97pTP dpZHRoPSIyMCUiIHZhbGlnb e5xfE9g Ii8+QZJkrDJ0wLS0rB7mXvT gMoX4HTnlN418WoTeiUHsNc ovM50xQ4ItyKG+BXQlEnw1S CBzdHls NT2pqJUxWLohLw3jHCY8TlZ fZnYuSAznC7FtCIFdyjudpo ccfBL3MGDdTKErnU88Rt1ia DogMTBw cCHFlN3rcfplz2bbjobiMsX lYYEgDVy2EHr8STHoeHwtTg VjQFW3YtG0UNY6uRJijP7gk Glnbjog dO1wH5DfNZBuinvqSj02oF9 qBvUzJqK9NOizVjk+U0FNUy wgQUxFWEFOREVSIExFRTwvd GQ+PHRk YDQ7gGctVVsuSSGieX4nSLD uJ7q8CjDbEmD9RJnxU4OdUT SnleypPj52cJ5tRbSaFhI1E OyjW6Gy jpG0RDPchKUfNLpeONK8J19 wf2V1PDFaUNVtPDG0wXB4eU 1hbGlnbjogbGVmdDsgdmVyd GljYWwt SOizN070BQZksDhkRjVeRlG 4LrX8Enl5B1JvYub1CMXneE jjMG0jbUOvPTvlTx3foPjkx YysJJ1i HCQzbrujYXBvsK3dLDYvbFY vbKvbXH3xTBNfnkbum596Ly WgSQL2SSUzyEAsM3MmsY7iX iAjMDAw OHIqM1AiwWSuFEhaH243ISl zOhS5YEUoxqCsC2EbXSCfwD qzTaF9r9G8Ek60YDSACMLqo zwvdGQ+ MNFqPRH7mGcmZTqzVXMttG7 oNRXuQ0e1WaKgInX8VManX0 VlQPGrxzqqRo25cD4wOtIrT pC1CWev Y8SiggX7QSNpzTOoMPgyCPR 5E32zu7V6HXYaXAUqQMR8yD T5hJ6gwQbmyjfgeRHcoZrfz mVydGlj JRdkBNutP856UHWfaAecXt0 ZOCP4O3AtIui9XOYclWqpQN 2qiOTxVQuaFp0zgDlpzFdnT J6vNXWm zmswGSPodA5nDOFuiOTbhRm zPK1oMTTblkgmr591CaStNI Z8ALJtdAZmT9RapN4eMnAvS DAwMDAw T1GxrUWtDSyyU188PSprAlW 5UCVzzaYeK9GlCSStxUkhEp E8v6A8Qa3VDIqvfGV+PC90c x76V2Mr TkscEja2DAClSXE6lTE3xO1 cNRXyJTgwy1B1nVP8F7Mjdz Xsjs0zi0lmBFVlBNigZ47uc SWja1A5 AFTbyUG7JOOfqHwmKmVciW5 3Oyc+KIQwzZyhd7QrHelkl8 anx0nfeJf0BjLoCJLbovLym WduPSJ0 a4DrAa12B52cAGdnVWMnCFX eDNHnSUIapDgmyq6stM7oWc 8+VZJusEG3eKJ4wY8eTdWbJ dZ7JFxw A617SjIlfRKmRkzmb4dsu6p xjIh2IrFtQKSxgsTtiOfcTI C3x3LzSd54P4KpbEcnk7DyK oc6hs05 lHMwz7D5bIX2W7EhZGIrktc qmFKiyZzwBK4sYRInrvyjIG BtaM2eVJDxJ6h6AiKyDeY3Q CfdE2Gu lmB5PTIksCCrQBJacGPCcJ1 djuygw0mgqgwoCkMmJIIoXE c6SXi7NXLqiNyxBuZpFXE1N cL7JYL3 oGKddU2fsWkqfwyrvI3uYtf +SBq5g6mzfBHmVY4otFG6XL 56HU35mBLmv2B0qMK0S3RcF GRpbmct umoynVA3HPLeKXEovM91Qu8 fbSvdAt6uUBNxVIQ9IRFmbJ NwJ5PxeL2yTrVwLAFxTIQlM 3RleHQt WMngB820SNvoKgR6XXFbhaW pT1SeZEOldNadHyC5z7L1Yo 1UIM33YX49IQ32tMVpk3T7p NG6A3Px SWVkzxtnijhvjWU4SVLeNGS vdL63Fn7nbZgyFn3pYQJlTS P9SDVcbEGcZ8UkzN3zCvZsP DAwMDAw V3NezQVlTYwsX007MMgvGiK 1YCRsfgKrE0NkSJGpdJhsRx V7j6H0Xs0OQm21BU12SY95e WEdt8H8 kBI3W8WgMTWknpfitcqigUU 6KIGjCJZwuP61Uy5qjXbbEr 4aFCUcYUB7AYZcvWEwU5Lrn U2gXsWh UQXhPXDmU9PgcVWqLAevS27 0SZgkUhJ5OMRfreYuT1RgGX MtpAzyKoY8z4U5Ti2MDRclr mj0Y2Cr PjwvdHI+DK44IYKeNB08wVE bcCYtn4ofaQn6NfJlUSJxSM H1uMygEAgss4YlKGTqM06di WRwj0Y7 IGN (more content not included)... [facility] Coding Summary HTMLBase 64 ZbvkxazwZYm0kZt+PGhlYWQ +KY0AANCqY19vfUHodS0cW1 NMTElOSywgQVBQTElOSyIgb eEpIA1gcCWqYJTy IC8+KO2zINBbXzmjrLIlt3J 2hYO2B79whg8tZRpcgZP7WQ QgWkQrfztmo2rbaAi2UJuyE mluOyBt IOEdvO48EQM7bD45Ve85jRA zxBLvf2xvyWx7YfAcEOIzNX O1eLfrIJjgc3OfSZEzA73li AJnp5D3 EOAteLfdfOVeRcIahLS8gJ0 nRCmtlhukk1slpqurWax2jl 63uGYyb2D7gOU5R9QgvxQ7P GJvbGQg VyoxqWNDxY1rwcqtz8slhns sWaDfOIFyMZg0OWe3QMRanR ubUbJuBP10XCO1JCMfouSaT 2FsLWFs cSfjFuX4o1M0Do8NJ8NXItc xZ9WXEIWPRZolhBC+PC90cj 89K8KsCdxeRla0VYWaRTX8q YD1oW4c ISOyKHjnq8W8xYF2O5LsmuY dxj9iq5saIJJzDDluK37pcW Dox4H7BBXdtWT9HLCpwReiM iBzaG93 Oyc+YVRgjSoox2UmXzjnv4y xz9nooTz2RudoKYNqnaTjkN vrQLH9j8MaPx8gKSEczLW9v FJ0dI1n JsLpKsI6YYluN431CdAlvIW pCusiE20eY6KlrFL+PHRyPj v1RDTgmEfzMF3fR2RxKPSow mctbGVm dNgtME8aAJLitovnBEMrtF6 dPNQgL4r5PhGlGvS9HLviS6 GcRPZxpwscAc76xI2aQrBqW iX3KTdz N2MuplE0JIQvqBGeVLdoXZM 0C87og6P7HIGyCFArTVZ7tD M7tU9nmRsuvfzqnTRzeZtop mVydGlj PGvnQDzvX822REOxvBpcMaC vZGluZyBEYXRlOiAgMDIvMj cvMjAyNDwvdGQ+LNUoLUA1z WxlPSAn bZAnVMwyYa3baFbycIceCX4 kAQVuwfacCLJpfY6xMIYaxO EozVewRF3dEWWzpjmsy966U iAxMHB0 OGQlgUSkC4QkvJ5dUeIgYTY uGSYuJ0LpkSYkZWlxC996RZ lzGvB1VZPymvKtZ2KsXIGqw WduOiB0 v2W4On9Zc5TkxsgpA2MvtDG oSzJqRcvvSMl8K0IwFbutpV I+JW36ZCBtRV54IYb1JBF2i WxlPSdi ALZvZ4PbyQ3aVfBvCRQuTSW kOyc+PHRhYmxlIHdpZHRoPS heALHqUjKnrEpkVX3qCd9nZ GVyLWNv lQerjDYgRfYcx2ykWIDiDOe qBF4bwEelH9UgsOH9TTBdp2 o6Lv93V03zH3HqtVE+PGNvb RZ2jOG2 cY2oCkDbCoM7JAwvS714TpB qgHRiGlnfb1ocd6nsaNe0Wy B9TXQjtyEgyTfpKHN4c0XpL y63C09p IHdpZHRoPSIxNSUiIHZhbGl son2whX5eTj9+SAEdbQX2gV G9kO5kErCyHuO4NWvzR920X nRvcCIv Ivtlp6swj0qmbFx7PoQkPEC xjyLxyJriMAD3f4OkIt19A6 XsrCxox1XzEkx0bd65cTBhd 7D6lBF9 R5NdTFRsecfhbKYtbYeoDC2 wNVOyuntbPOYbeI7tFHDtE3 c8LtInMgC4HFesU6EjqzA2F GJvbGQg BPFyjHRLoR0yvxgzu0btyan sYqBePDLoURm3LNw7YIDgjJ nnTnFuNIA9WqM3NKL5sESet G9ydNye gsajbK5hFcb+ZJP1cCJznOD DRP2zQquqcEQ+ENUuFXN6wA hlKTynAIDsiB7zXCIfS0n3H iAwLjA1 NOqjZ3PrviX9UUFvcJRhMHC ucSZYhP1rykmse0rdncfwMu KvGMGsEVk9LFq1QBEbhCndW iBsZWZ0 VeD0SSG9mOCpsT6qaZjfpuo kgJ8cWqu+IztolTydKDD0AV m5O3NtXxc4FCAhsFaqGE3nh GFkZGlu Kd7rbYamaVwxKX5nXVBkzgw hf266ZmAsm1izMGWhkMGjMO blFXC7O03bp6Y5XWFnXSJaU DI6dRO9 wR8pnVaszxpniDHbuHqymjE uuJzvSFuiZDhtX659APLxbT obAlDaKRp1R4AaIcw2EAZwp FsbPN3m nTUcSNzzGc4suYogkXbqOL1 oGCFyvnztb389XvNfz3caSK UueOFqWAmySWA5K44el4Z1X CMwMDAw GCL3xCI1xW4usVdhbkazoGN mdDsgdmVydGljYWwtYWxpZ2 12LDGdsVfsJjRzzNm5T8ZnZ tg9UGId rHqnAI6fyERsUEbyQy0mcSd vsUroVJ9uIGCyporqt640Jf Frw9zaNMPriOSvGDflQNS7K 43ul7W5 LZIwPTMzORB3mVP5kM1qhDe nbjogbGVmdDsgdmVydGljYW xdVJodX084ZKUaxQgcDbZrs GllbnQg OVttPPz1W4GpBsudvOU+PC9 8XYYgSW96oSFneBNmr6zxmZ h8MhRwVMDuCKY7gQpzTFmgy 3JkZXIt R68edJPda6T4RYWiaMlihFH wNbFpzCQ4lI2cAWkavyjok4 qgdsxqOhftk6akac32xD07P 29sIHdp ZHRoPSIzMCUiIHZhbGlnbj0 xlU3qAo3+UBKrfNL0jXF3gV 3uNDTeGxG9UJdoR901MjMwd CIvPjxj u7rwo7axlMt1PnD0OVOldaQ uoSuqFLP0q4GfVl60U69nRX dpZHRoPSIyMCUiIHZhbGlnb d4epH8f Ii8+URVtlUS6qIA9gL4qGkM lGwT5FFfuX106OaVhtCLwSq ioA15jK1JjtKU+ZBDkTht6X CBzdHls DN8dkIOdGIfgRn4tWRI1WaC gZzLfVCiyU1HiYANivxreeh snpGA5HITlCGFimQ59Mq5ss DogMTBw xKCOhR8swrnkt5ivvutuZsR fCQSkIBn1RTn0LUWhgOubGr IzGZB4OuG2QXZ6aPBruO1gh Glnbjog xT3iN2KhSXHnjjxpDe63gB7 tIyZoMoR5NSseJro+U0FNUy wgQUxFWEFOREVSIExFRTwvd GQ+PHRk ESC5zEskIOouUSFsxV3hDHP zK2k2DwXqWvG2AZlfT6BpTU AmkgdgGw11eE2dOdWaGpJ7Z TlnM7Ko xzS8CLCoiTErETuwKCF3K52 cv8N3IHFyKQAfDRI4aNB5oE 1hbGlnbjogbGVmdDsgdmVyd GljYWwt GPerQ682QMCynQjmZmHeAjF 7CkT2Uyd8H0YpFbm8NQAvhF dkKI2heURxOKtnCl1wkZzlf AobZQ8b XKOqlxzdIDIqyW3tFTSfmKS bnDwfFT1eNZHdcucbd693Vm RrGZC0FTBwtTOzT2CglN3rN iAjMDAw MRClY9MbsKBeHBljI859WDy sEwJ8PJNbjnHiM8WsXGStqC gnQeN7d7X7Wg02ILJBOOXbi zwvdGQ+ EMCyOHL0bWcdMQksFPEcpD0 tLMZoC0a5GxCuNqO3QCarR8 HzDILuhxwtGh34hL4fNtNiR gU6AAfo Q4PgazL7UWVkgMQeQIoaLEO 0S56gn4K1WDKgSJVgUBO7aL X2xH3cbVerdszroCHajPyir mVydGlj SQbnKBeuA742MWVjhMqlKi6 YFRL0W2JpAjs4CUOpwMwmWI 3eaBUrIKmpXq6wbPymdMqdT E3uUBZn wixyHUQagY6zUWNkjJVxoQu bCF6ePNCcwipix934GyFuHZ Z6WRIcaXInU8WplC1qTeWdZ DAwMDAw P9FweAIjPBwnD524KMoyXjX 5LDCjbsAqJ3LeZSWogWfkJk C1p0R5Sf0CECzdjLQ+PC90c o89E6Ph DiwtMku9FSDfBLO6oNJ2uE4 tDPTqHXuer9D3vTD2R4Eaak Lpnr4qz4tkZQVdULsgS09nh NGlr0B8 QOWohDW2IMKrvSzyUgJraZ3 3Oyc+HVMecBiam0JrVotme3 nbf0rckMn9YiLqQZQgcqRig WduPSJ0 m0TgFb89X66tHDnwLIGqHTM pHGOyJMHinObbrr4uvF1oWu 8+EKMxpTG1cTK3vT6dCmIyV fZ8EJjd H609NxQkeIAcDadrb1dqz4s tuNe8ZmFbRSFsijWbzOsxUV Y2e5ImAd36V9KapJbzh2XiF ps1my59 rCQfq7D4pNQ9F5QpUEQwzfl xdAZjsFnkMG5tEPHxbureCA KxiW6nZFHqT2a6LmZvOtW0P IqhF9Cr hcN2KYYzlXBjOILtpYLUyB6 suzebi8wqycyjOoJmTVLcJM n8OMj1XUPagMmbNpHdVYQ7U jF4HCP1 wKYhiR7qzKnrhcdmaL9cSty +LNt0w1qqdUIhDK6tgQI4ZJ 46GW44fJRzx3C9aEL3P9PbF GRpbmct urpjeMY5PSMfTGHoaN02Iw9 lrIqjZx0eGZYkIKP7VXMvrS AjX0CtxJ3aQcTsANWcFREjO 3RleHQt WAvmK682IHllAvZ9JEZgjmS sW1UkNUNwxQqxHfV7p7R6Hk 8TIO04PF95OE18rZGle8Y0o FQ1C7Od TDLetbuxkslqeJA7CBJeRQD zhT86Ib0oyQtkBh3sXPBkZX Z7AFYcaINfC5RbwR5eTtYaC DAwMDAw P8LtnNFgAGhiA692TWlcJsU 0FIZzmtWpW4KuFDPfaPnqTg Q6o2P7Ae5IEg38BD26FJ68p QSvg0X4 sFL3R0DsKRYhxxnjsezhgIE 8DGBfATJqgS53Ie0fxLykHn 7kVFVoHPO7HHIhgMJrZ8Sov K7uYzKy DWUoAKOzR1FisWAcLEzeS97 1SOicIgD3DBInorNhT4BdBY YogJieWwF6s2H8Vi8CNDznn tk6H3Br PjwvdHI+OR37QEJaNT96wSC tpCZfz6lwdIw5PcMyBIHhBR V8hPmhLTxfn5QwFNNcM94to XYic1R3 IGN (more content not included)... [facility] Coding Summaryon 07-12-2023 Coding Summary HTMLBase 64 RihqysgzWMh6eQm+PGhlYWQ +SP6OWNIrG00wjZWxiV0aE4 NMTElOSywgQVBQTElOSyIgb tQfTO3bjCPoAXHs IC8+ZE8dNNHyZseliCRuf4K 9oJX0V00say7nDWmurCZ4XM GgYuTioxcjf5tleVk6LNtgG mluOyBt APSpfT01EDP5bG66Ve75uSQ gvOXlu2lpdSm9QyNnRMSlEH F3kHcqKKibc6BgPLTsW55mt TUgl9I1 NXSgjEsczXNxCsEcaXV0bH7 fGCixosftq7kqlvwwBwv8rh 64iDTcm1K3lFX5Q5VbxcC8F GJvbGQg QydvdYPOmG2vakxmr5cvfgk aKxLiOKJiJVt3NPj3UWOduC fpZhXjIN14XCZ8BMFpbyFbB 2FsLWFs mIhhWgN5r5J1Hi3QF9FBQeb hK3SHIJQFZRnenFS+PC90cj 95L3AbBonvYeo7QEVlPYW3a PG0iE9n AGLmWSbhl5Y6cBU4F2VpraM zue9ly4nzXJCpMXusT59boS Cgv0U2PATpmES6FHPoqImkT iBzaG93 Oyc+XBMbkRtaz6FlJjdfg6l yv5ikxQw3EnntIKHbjzValG vuBJL3k5WgHg0xPHNuoQM7e GN1nP0g RdGsWzK0UVlmG870RyHneGX lNwmiJ10vC4VjvJC+PHRyPj k6MLSrkCwsIN8cQ8WnHHGiy mctbGVm dKbeQR5sLGAzfvpjXBXenO7 pNOCgP1v2KyOePsU8CCbuV9 CvAXVdboniIf16yI0hVvBbH yH2GDxv G0ThsyD9UWKavCDjVHzdDXL 9D50fz9D5ETQaPTDnLGK8dO J8fC1ouPffhksqhAMwnNjqu mVydGlj JOrvXKuzW446NHYsiUhqXbH vZGluZyBEYXRlOiAgMDIvMD YvMjAyNDwvdGQ+UPVqCMW3j WxlPSAn iHImSHalHq6zdQxzoVfqZY6 yTZQjacqcQTRwdA8dPELqbM LzbNvuRU5aABNurjtqb239U iAxMHB0 QNEnnVHaN2PkqP0wNgToQYN uGLWlW7OuuSGjRJduW222AH diKiM5UDDmwtJeR8WzSTXhh WduOiB0 l3N7Go2Qa9VjnjsyS3PdgRV kBcXsHwgaXAz3C5UoKjmkyY I+OZ32LRWvFV73NDy6NPA1y WxlPSdi BMOyA1OycE1rDiXyFEQlNTM kOyc+PHRhYmxlIHdpZHRoPS erWBOaWhBtnIeeUN8qEu5jT GVyLWNv qWhbhHGdCaPpn7jnIZRfOVs dKA3ejVuoD5GjiFE9PNOnt5 c2Bk84Q63eQ1HwiNF+PGNvb ZV8vEK3 oX0kKiLyKwE6YKfhD123OgJ fgVTgAtknr6tsa5kvnIs9Vh I9IZIxplIvdCihCMP3n6KbN r65L18p IHdpZHRoPSIxNSUiIHZhbGl oyz1fuT4iMe1+VWXdbYT4oV X3lV5eXrQxBmQ7YGjtF776D nRvcCIv Glaxq2qeq8wmuPt9WlXiVYW ljpYboHnxTUC8w5GtBx59X1 QhoZtiz2JwVwl0xo07kNCcp 0H4cTQ7 A0WvTBQaqgrbfDIavKaxAS8 ePVMhsnxyJQHqpI5kRTNcM1 o1LoCbWuF4ZYwwS1FmtlX0B GJvbGQg WEJtxIGOxR6hjrzpm0wwifa vRgAsLYAyZEk0FMc7FYHpoS jaNlWeKML5NhI0MPH3hRDqf X9zvDun lgzylV4jAqk+KEJ3uCVfyKR HCP1wYmumbIU+GMNwDYQ7lW vaLDuwDWReaY5pNBAhA2d9D iAwLjA1 WZraE0RteuF6RDCpxHWcUFE epUZTyA3zrglkb1vatumwIv EkJTTePNm5FZe9AAHpuYetD iBsZWZ0 QdV0ERN0xCCttM0nwXwxvyg maF4oGcm+KafecDarPYA6NI q6G2VhQpm5QAPcrBtqSO9hh GFkZGlu Se2omVaxwMycJK5fDJHpfux mw485OlYum9jnCBXlwDJtOK cyLGI5V47jx4Q8TIFtKXNyH JX0oJD3 qQ6mrDgwlwcdsRScoOaizuF gaZnqRGlmMDvoU258BPFmtT erLaNgYNi5R9FlKjd8VPHae MiwXE6l qRQxHTeoPi3ykMwzxHtpVD0 iNZGzvmiwr601HkDjs6krQN WqzLPqSVoaMXL2M23vb7T8G CMwMDAw HTK5eEF4bI1dxJkraptniZP mdDsgdmVydGljYWwtYWxpZ2 30KDIjpNtoYpBphLt4J4VwC jl6YSVg pJtsXD8mbGNuDCjyXi4qwVv zrCokEW3aMLRfpyacz315Ph Pdu0sjEMGjkTBxOCqvZBX4C 20jg1D1 LSCaWNVxBDX6qVY7qA8qlYx nbjogbGVmdDsgdmVydGljYW woVIcrZ751ZEXquFlfYqKof GllbnQg QGfkSOr1V6AkCryjyWZ+PC9 0IKFySI03bLFdgRNqa4zyeR y9KtCxPGCkJQB3vKkiGQmzh 3JkZXIt M16wnEMgd2R6BEVloWxolKI yVuHxeDH2uV3cHZxntzdet3 aljfgdJvfqt8tqzm80oZ12X 29sIHdp ZHRoPSIzMCUiIHZhbGlnbj0 zvC1oGf6+UJJdxDC3rIK1yN 4tRPNkUyE0ATfvT554CiKaq CIvPjxj s0ouy9rfxLv2SiI3WXUqyqP udAhiVFI8q4FvPv06B07dES dpZHRoPSIyMCUiIHZhbGlnb j2puU1m Ii8+QQDnqYZ2zQO2zZ2yBiU vUoM3PRzbM050NmObcEUzDs gsC66lP1ZvaVN+GCYhWck3A CBzdHls WP7tzSDyDOyqEb8cKIC3BxK nDwNyNLziM6LrXJUtiwythm ytfFZ9XDFtVDBjvM35Ua3qo DogMTBw pNWGsF4ejpufd7mndauaSsH rNFIqZWj9PHq3FJDiiCbzTi OnELF1StE4ENR4ySCpsT4dw Glnbjog pU4xT5NeRNYshiprEe44bQ4 sTrYkBeT9PCqlKne+U0FNUy wgQUxFWEFOREVSIExFRTwvd GQ+PHRk HDH6aAcoSRwuYHGhpD1fGQA jJ8g0OkFtJgR7PRwrM7RzIP BjchjbKd66pM8gUjCjQmB7O LenR1Nw qcJ7KLTueAIhYUkaKSJ2O14 zs0O0ISYpYZQdWCJ9hCY9hP 1hbGlnbjogbGVmdDsgdmVyd GljYWwt NMulE789OQIxqHiiWvAfGuC 0LtU3Tcb3O9KeLka8DKBejA ekDX1gcDYwJVzuSr4pvFbva KriML8t TBTrfxfzVVUxgE5dZJSrvFY pzFqvRL2jECVzgrqyn222Mu EbHMW9SONfbQOqM6MvjR9iO iAjMDAw OJAoD5QtdRVjLHuqX766MCm tLsY6DZSdxmRqY2FxPBLsbY zcSxX5d4Z4Qv47DGXSEVPpc zwvdGQ+ ZQXnHFF1mAhhLBufPAHvmF5 mQDZvH1c5JrDwYcI7HLgcY1 PnXSQulsxqJy56dF0eIbUrU hR9MYcq M6WrtqD9PJClfQBxDOqjKND 2Y38ka7N3CVUqOOAdLZA6mS Z5dE2znSzyqumjkIRrzVbfj mVydGlj MCtySEabN451SQEtmFzvYx7 KMZH8N6StLfg9LDEufWwaLC 8tfLQcCCnpHh3bcQeudZnsN T6zBSFf tymsCMDyfS9kIIBbcHLtkSn uMI9uBLKpxvywq716PnLtPH D5TJXhhSWqO4FggE8cLgFgC DAwMDAw I9MmlPFfFWbwP543UPtxFjF 1LZDnqlXuO0ToSKVusKjhUn V3g9D0Hh5VSXndyKK+PC90c q81P8Pt GixmLwq0NHWqATT4zYC1bY7 aSHHbQScgf5Y9oKB7Y1Jiyx Vhum7dm0vzHUJgMUjfK45py WTvz7I9 EEKcjVX0MWHjxHygHmIwtO3 3Oyc+MLCgaJung8HxTsvgc5 ukf6jwySc4GhYlAMNnshWkc WduPSJ0 k3TyJj93D57iTNcuFOOvSNQ cKUWiDNOvvRczme1lwC2lJg 8+IZWrpFP3eSV5wJ6mRgGnD mS2OJie Q897DsQkoITgCxikf0cii0q eeIm4EjOrIKRhgvNvqFotPK S3k7DlBi21O1YaaItyn9XhR af0qb69 hWTeh2Z1kUI1G1SyONFoopq tcSMyeIpgEU1sRYWckfkcRS RmjX7uNSLsJ2a7ZoEeOdC9Q UczB1Zz uxR4GBWwpPHpEVMpyIAMjX8 zkopbt4fuskuoOqVvAYJjVR k7SEy7DFGavOvaNyMaFTA0A dN9RMJ3 bAJrpT4xlTawyqlttN8nFnu +JHb1d3svsPTtSJ2wlND1CW 01RW79qLZrg6H8zGO1E7VcV GRpbmct yafkxLO6FPCqPYXxqL01Tu8 moNtrHi0jVZZdTCZ6PDBvgE DmW9LmdG4qZcTnJNRsXFVtH 3RleHQt KVcjW170QXnhPeU8TWYqauU xU2IsUIIofSokVpG1g5C9Bq 0GYA01AK70YH57bRNcn8O0e WS7I4Vj ZYPfgkkcbdfmmRB4XRJrPJB yuU24Jn0rpNrkIg7lBIXoEX T5RCZfwSEdZ5FmeD6fHbBqV DAwMDAw C0NhcKLsXYacF963EOinNnZ 7JXUnekJcO2MiBTKqtLgsWy S6a6C4Tl0UGr66CZ11YX19n BSum8Y6 sDS4J1HtSAMruvwyfzhufFH 7PMViZMQpxF76Fh9nfIbtKj 8bSATbEKL0MTNraYApX6Zha U1uLjHo FHBoIHFgN3XnzNMoDEwwR86 2UCuoVhB7TMRxzqPpL2LbLB QcsXbyIyA2f5S2Jb2GQMuuc zp1P4Id PjwvdHI+IP20TCYpJT90nAK pdBZix2dppMe8QvJeAXFbOK D8uIcgUBiey9KsTQCeT39sx UTnt5V3 IGN (more content not included)... [facility] Coding Summary HTMLBase 64 MgwupghtPZh9zRz+PGhlYWQ +RN4XTZEbT17wzNAgvY7yE3 NMTElOSywgQVBQTElOSyIgb nEfVT4fjJWqBDGm IC8+MY1pRUGfFwesuWAlu3P 0uWC6O15eej9kSYxzqZP3TJ GtKaEukewdq5feySv8DEauS mluOyBt NPUchP98DWT3xF17Dg87aTP bzJZku7yrjKx8RfWaHSWnKO S9hRbtIVrfh1LtVNMyG98mz RYbw7L9 LETxqGvfoRDiLhZsjVQ5mX9 iFFwyddrab7nywhfkUht5yt 70kGUye2K0mEF6T5QhjpU1R GJvbGQg LptoiZIGnN0nsptgy8ipzoh vEwMgMTGiOGb1OCb6DLTshQ enBkQgPD68ULO9CZOcngAbT 2FsLWFs xPcnVvT0s0S2Bh0DP5XLCqd kM6SWLCRRZXduqDK+PC90cj 90A7YdBlvbSvp8CCSqJBF2t KY3aP9z HRZvDGbnx8R7sTZ5O6DxpsE eph4rz3gsSSTwEVhsC06uhM Wtk9H1OPXfgQU3QJLfyLrtP iBzaG93 Oyc+TXAuhYzkg8RrJebvc3e ru4crtSy9GdooGVQaswWiwM hrEUU4p7KpTd4lVCYhdHS4g IZ1uV3m JwBxUeJ3YMofB569UxYseCL nRxrcN41xH7PveVJ+PHRyPj p5TNXhtHacRX3xJ8SbRMImm mctbGVm qGgbRO0xPLRoxufhDHOoqU1 qICVrP1d7FtJgPuZ6YOwbA9 IpWGPgwginQo73gS3vUpDjW gU9TYky Z2XievX6RSWvnIIhNMrsHIU 2B12cm5S6DGOeBACtDCF9mL A8mM1lzEnebdsxfMVdxSebi mVydGlj AUfeCXvaM583MDCnuRclCrQ vZGluZyBEYXRlOiAgMDIvMD YvMjAyNDwvdGQ+ENDqIDN4v WxlPSAn uCLjSUwnYz5nuJvzgGvtZS3 jVSUckdhdJJBaeH7fQEMnrB CtaUkzYX7qPQLuwvtef824O iAxMHB0 NEFxkHWsO9UubZ8gSwZkNIC xNJKtX1SuwYKnVVshH032KQ eyLxX5LKDwbjGoV4HhTYKqe WduOiB0 t0L6Pg9Vj7SsqwumE8ShjII kOrIuCwrdGLt0M1KxOdkizD I+SO41XMQyOV09ABb6JSQ3t WxlPSdi CBLsR2JrwE2jVuUgFAPcUMZ kOyc+PHRhYmxlIHdpZHRoPS ldXVRwDlRfaDjxPV3sXq8qY GVyLWNv bZtngJBuFyAvu6nnRSJuPLi kZJ7kpKnwV8TjaYF3KDSri5 t4Mq41P94wW8ZnoLR+PGNvb OG6kZX2 nF0jTvDcJeY2IEryP429PbR okKFrFxhxt7ewu4mefKv9Gu G9HRPnjjZfoRqpSMX8v0FpY s70F06n IHdpZHRoPSIxNSUiIHZhbGl mmz2xrI0zJl5+SXRbcCR3gG H6cJ7kRoYkQmD9YNkfK470P nRvcCIv Kozdb5zvt7kqdXf8RfOkNBZ oeoBthCffDWQ5r1EtBt46I6 RazWnga9PtBta8rx02cZKrh 8D4iQX0 Z7AsYOManqzxqCSxzXxtHB4 fZZHtsybuYPZmfM7kVVWdW0 q8LnKiEcB8ZTodF1XtkgT7H GJvbGQg IOEsqZFRcP6gufydu1mqhxa rTxNnALBvCXr6UJn9FDCqrG hmRwGdHIW6ZpV2ECD7uWHyv X9biNqd tccxbU7zEie+UMB9lKQaqTB ZGP2aIhjvbMR+VLDzCPQ0fL zhXBbiPPMvdJ8hVFBiW7n9B iAwLjA1 JAgoV2PtkzJ5VLMwiMSyRVZ coMHRpQ1gxzmhb4ktvtocKk BfANFxVWa3HBn8WWFvpQnzV iBsZWZ0 VnM0QJL5iBOrtJ4gmCmdwxn xoG9iAxy+GtjgkBxgKUR0AD s6I1QeYqc0YXPztPsyHH8iv GFkZGlu Dh7krOqabTlcSG4tNRIdugj mz746FpGri0erUJYrpKCmAL prPUJ2O99wt7G2UWQuXQYnS HG7hXB0 bU8efKsuxrvorXHqaLbgrsC jyXnuONcyKGiaB921UYVldG zrVvZyENi0T4XjThh8DAImp OvqKW7n kZBrSWabBi1idWqqrOkmRN8 iUXMmkhdbr319BbOlg9voIX AvmFUgDYlxKZA2Z76gg6Z0Q CMwMDAw LRW8iYG9cR3bkNfivhetoAN mdDsgdmVydGljYWwtYWxpZ2 34WSTszSzdFyXwqNv8C2CfK hp7ZCFt lDjpLS7jvZWaFVypTl2riUs diGphAZ1kVEOutnqzo583Kv Rhc5dlCPOzlMYnNIbiDHR4T 68ch8M5 MSRiGJAaPLJ8gGU7zH8aqUi nbjogbGVmdDsgdmVydGljYW qqGUljF398CJLuuOwtTwYwh GllbnQg PSbeVNt4Z1QvCnlfpFZ+PC9 1FTVcQU10gZLgsYYjl8uaeN s7JiKaAXPnSPH6tGubZWfbb 3JkZXIt T12boYHum0O4URGziHqtcMH jCyNgaKG4qN0fPVqlykgbf5 tgqvtkOlogi7pjld76wG12A 29sIHdp ZHRoPSIzMCUiIHZhbGlnbj0 hxS1nTk7+HEAcwZL6mHY7fO 1qQPXrXcC9RKnbZ398InNzr CIvPjxj y4pyt3fqzFh2NtI2YIJoilC xlHyjRKA3s5DcYo74H33iRC dpZHRoPSIyMCUiIHZhbGlnb d2kjD5k Ii8+VLEllVJ9uES9wK1jHiS iJkF2SQpxR825ErRzyTGlSz kuH40pU0HkyNB+GLQhBwf4K CBzdHls PF3ckTMsMFyuAw4mRYC9JaT uCkGjSWdyY3ZuPBZdoxtnqz nmhYJ3UAJhJTYkbP30Ih0zw DogMTBw yDCRvO7qvifbv5wpzpsqYtJ fDXVuRTs0MPq0UYRcyCbsSf WtPDY3ArM6TCY0jXWcaQ6dh Glnbjog kP6jR4SdYFNwwehpGv50pO2 bUrHpExL6SDzmMlj+U0FNUy wgQUxFWEFOREVSIExFRTwvd GQ+PHRk FCK7sEebOPsbZTSsrQ6wILB dC8d0LjGpZtN3NHfoS0OvKD KpliqmLb54qY8kEsDwEoV6E JspU2Au lyN3RMTheZPkFVauKYA4S95 th5J2ELSdCOUiCCU3gOA2lF 1hbGlnbjogbGVmdDsgdmVyd GljYWwt HDvaG037ECGjwChbVhSrQpO 0SaS4Asv6A6RiYkj1QRKrgQ pwDN8ovNPqIAfuJy1sdClvx GmqEK3m GFZiayjuKFXlsJ5vSVUriWJ shAtrSR8eQIAlahtto773Bi GaXPQ9XGAneBYwQ5DtpC1wH iAjMDAw BDCwP5HqkLVoGEjkE169USv wOiH5XIMmlaMfV9WfHPGuxS wyFcW6e6X8Uh27IIXFRDIra zwvdGQ+ YJZsDQM7yYtlMMqeATVstX9 uKHFmL5v9EhLbVzU4YBjtI5 NwFMPraqpnUv30tQ5wNgFmO vT5BWuy S5SxyhR4WDMioSXaQEbbNOU 5Z28nz6D8PEZiUAItQPA7kJ U0sX4msFdvckzkoUEtxVqrw mVydGlj UKmtPUddY467KILrsEbuYz4 BMBN0Q2HkBjb6UEQhgQlaIM 1cpDNgJYmeSx5nrXvumPtzI A7zBRHc nbnsAHXepE6yQWEeuZXrzAa tNS0hGRTabetrr038AkCdOY M2QKCncDRtL0KmcH7uOaLmY DAwMDAw C4RplKGlNMtoI918EFwtEsR 8UIWecsKeY1LdIFYsgMzzKx K7h1L0Ou0XUZfinEO+PC90c l21L9Oe EytpVuz9ODMvTWZ0cHX5hL4 fMYMyYCzua2I1jZH8P8Hxqy Opmd4np4raPZUyYXehQ08fm KUzi4H7 VQHjvEL0JQTuxJftFpJgkS9 3Oyc+JOBtbRjxp1DdIbzwc0 sjp4irkYi0FiJvUQPjgfQpm WduPSJ0 k5YnCs00J93vKKedNQPnQJP uXDWuTPLaqKwunl3eaJ8nZx 8+NYPjhIN2dVK6mR4iAmNgF xO9IWhf F223FrJwtZZhCaoyd7ulk5k gwZr2FhXxJCZqmtXwoHumYK R4u2EwRl69B1PcrQege1WbS st6ac77 lDVng1F8gTV6U0CoKLCwjnl qwLAxdZviEZ6cWNBmnntlTB SkmL6qXYUhZ0x6InBrOyL7Y ZdjG6At hpM1MLAqmOAqOMYvrMNWzY4 odpgzs2zezwukBwOsULOdVT z9FTu5YLDnoDghIfAjQST4L rR2VMP0 sTQcxM0uwJjiutrcyJ2dAam +SZl6k6lfwIEuGT3nmMY6UP 56GB46bVGbg8A5lLP6Q6UsD GRpbmct jbarvCD0HNSlUCJxuN17Cb4 scJyoDg8uYHEpHPN5HEAulH UrU4NwyT3cYxHrFKAxEOAwY 3RleHQt SNciU216ZCwgVgX9JDHyebH kK5RoLWFovOifJgW4o9C2Vl 6ONO44GC67LV48dSAbj1C3w ZO3X9Ca UCSpxoifvorreQV6NOAiGWW juZ20Lp0ttWuiHt3nPGGzSI N5MMKtdLFsF5MktK1wXbGyG DAwMDAw R3IknTQkBNwlJ337HUlmTiO 5OBKkozGmR2KdTEErjBerHm E0c4L7Gl9JPx42EO78CO81n HTjb7O7 gLN9E2MnWJUnzpttqxipuMG 1MXQhVKKgeS60Zi1coWkcFd 5qRNNbIWO6KGIkdEIiS6Yzl H9cUxWh BTJnUGZrT1CyxUTjXNgiT93 8TQggEnN8UWNwznRpC3FbNK TlfGrgVnA6c8Y8Ao5PYCpxw an0L1Td PjwvdHI+TD81OBCmEF21cFI ocJRgm4ehfWv0MqHpSZWpQZ H2sSsuREqny5QiRYUvR73sw ZRcv1A7 IGN (more content not included)... [facility] Coding Summaryon 07-11-2023 Coding Summary HTMLBase 64 ZyybawbrNHy4cRx+PGhlYWQ +SZ5ULYYtP85hgUWpaW7yJ9 NMTElOSywgQVBQTElOSyIgb wUdBS8rnGDuCKOe IC8+CB1pRPOiJkcrhBGia1B 4iSM4M76lsh3gVGavhBG9FT BqHxPstusjf1afpUe2BGezE mluOyBt TWIhoP00PFG5uO86Cf49fVK rgYUhs1pxwJb8FjRpKTUoJZ A0zGxhPTgzj5SwZPIoO07ea BBbv1U5 ASBqvUjtbLRwXfTbpGP9nI9 vNXxqnzpkk6cdadryQgu5cc 08qNGpc7D8dEL3Y5AagzQ4S GJvbGQg HkyxdHSIeM4pmnwyp0hgtmz xDyYkEXTrZRe6ZAb0UIKvxY ffNdLnVB11AVL8CCThhyLnT 2FsLWFs rYdgOyY6u1D0Lz2DF9CAVhz rW8EAAMIPVNxifFL+PC90cj 42G7TcFiwcIzn9KXAwBWW4v MM7xC9e MDQrDOtaw5W6kPX3T3LcndS whm6hc8bmLXTkEEktT26daP Cec9R4GNAsgJA0BVJemMknJ iBzaG93 Oyc+BWKsbRdkf4SmBwurc6i oa8kyjAu0WoykUPXohwGjoA qtGEJ8e5MoZd1tYDEiwUG5p ER4uZ3h WeVpWlI1FVwkM147LtUkmJF dJfjdE96aI0PhrHU+PHRyPj s3JZCgqJpwSV8wF2CzHNBnv mctbGVm jGxcIK9uOGWjpjjoZWVdsK2 wSUApR8h2KlIsPrL3LHccH4 MvWMBxjpmbZi01cC3uZkFxB hP9STdm J8FeezB1HQJofVVdRKhzOED 7I54oo1J8PONlPSPsWNF3pN D2xV5lwCfrxsuiiAEhfWgeu mVydGlj UPssPYfyP181TYUprOktNhB vZGluZyBEYXRlOiAgMDIvMD UvMjAyNDwvdGQ+YXPgBDL8k WxlPSAn oLCxLYreXb3ykEcvfOmnIV3 pOZZrstbtYLFvgL3rLUXluV YhlMqtVI1qSBRypotlp964Y iAxMHB0 QGZgtSYhW4BvpZ5eEcWoYHD aNNXbN4ZifXHvODghP245LH gjQqN7WSCddrVrT7KaDBFgf WduOiB0 w1S7Dx7Dc4BwmldrH2VzwMK eKzXsTskmMQz5R7RzJymcgJ I+ET44GTSqFV27HId0CLR4n WxlPSdi PYRdS1HjtA4gEjXjVBItAAR kOyc+PHRhYmxlIHdpZHRoPS wwKVXhGaHeaMufAC8gUl1mY GVyLWNv sGaqaPJrKeRme9wgTBPiDQo rZV2hbQgdA6LoeXP1LYVfm6 w4Ys76D26jH4IhlZA+PGNvb NO5iAN9 qA2nWlHyKwE0QBtuZ108YtG wxIQiNauhi4fup3ennZf6Rk M0CEQrkfHiyRknCQP8p6ZkM f66C47u IHdpZHRoPSIxNSUiIHZhbGl dgh1uwO4rCy6+UPRcnUD6hQ F9eR0gVlYfThJ4EZvfC385F nRvcCIv Djalu1yhi5bdyOm8IxRiLVD wqjFfgSgdZHK0a8EtFz49Z1 RjxMfpo0OuFmt3ed35cNTot 3J7xNV5 F9LbUIReebpckGUpfKqbRG5 sABObuvcxORZxfA5fYMPvK6 s4GdBfPwW6KDpgI2QarzX0W GJvbGQg GURvmBYOqT3nmvsic2dmvpb lEuCsYRQcWYm7XQv9VMGwjS elUlWyOKU2WmK2OAR3nMJsn F6rnPcb sbtaaS4tGzm+MKF4vEEjtCB VWJ0zJgzecCD+TYHlQRA1wG paDDknRMZtoT2iPRSmP2u6I iAwLjA1 GXzdZ8KlngN9JIPhcLAsOGA tcFLGqW5fwwdej0ihpbogZn QhHVIcYGh5FTn7VDYgkVsoE iBsZWZ0 JjG6MZB7aNGtfQ3hbZlnkuq kgI8nDtl+BvfmsWimTVZ7ZS s4D8MvVwb1VKYofFduZR1hb GFkZGlu Xm9eqMkgkKefHH1mIEGtjfb wf736WvQie4uaNNTueJZgCO erOLZ8F16gn3M8JVUjQYHpH RT2iCZ4 jK6enCvtnqeyqFPixBgqghK hqZkuIKdzNDtgA932YSNotQ aeAfIvLSh5I9IzHkh5ZHHci CzdDP7v xZYiQFkfVw7ghLleaEhdAY5 rPKEfgrqss397GvYoq3dwWZ XdhEOgWPkhOQI8P87mb9N1F CMwMDAw VYI8mIZ5nX1hdWlhrtomgBW mdDsgdmVydGljYWwtYWxpZ2 14WIEnxEtcTkAjpTq3F5DxA or6LUZr aHsxIN0feBNjFSdqDv6ixKu ofJwnSN4lCWUyeshlx880Mv Laf7umSYFueFBsZOehQBB1K 15ct9S0 NNTcERDfTYN2oWP5yL4loCu nbjogbGVmdDsgdmVydGljYW rdJIdvD019OPJgvUvwKdMsi GllbnQg GGngVLm1L1QkVtrvwEX+PC9 3OADfFV81jLOhqZLtn9ypjG v5ZsFjEMWfRWW8yWuwFNief 3JkZXIt R05erZFsc2L6DZQewEwfeNC hKuHdcHB7iZ3hIUfepnrcz8 aqqxteAnxom3cjni64uI38K 29sIHdp ZHRoPSIzMCUiIHZhbGlnbj0 qrF6dMo3+AYKljOB9iHW3nE 1bEEYjZvR4KArgV193DbDld CIvPjxj r3mmv0zshIs3XpW4WKYfnoU yvRvnODM8i0SdAx85B36zHG dpZHRoPSIyMCUiIHZhbGlnb h0lzV4e Ii8+OOQcxTX4aON7zI7kKcY dCjS8YFxdL962KoSzhBDmXs djS66dS0CkuAJ+WCTrJff9Z CBzdHls EY0hwSCqLXojGd5hPAZ4GiH uWqAyDVonA9LzOUWallqttz abyDC5SRXwFPArfT85Wo3ct DogMTBw vTHYgM0fhgsui2docbrdCuY uKQFbBXw3XJg7DNTpwMhoTv IqPNK4QyG0WFK8iCLemB9wq Glnbjog gB9iU7WlWDOivmfpFa60lN8 tDqJyYsT2FXbjWio+U0FNUy wgQUxFWEFOREVSIExFRTwvd GQ+PHRk JVX8pZisBLhsSYUyjM4qRGE yM3t4PdFcWrM5CYmbL1ApDY JjnhwbZf66yO7yNrNeCfS0V SxsZ4Zh zyW0JKPlrLVzCOxeYTN6L18 yo3Z0QKJaKWXjKEY6wYJ7dX 1hbGlnbjogbGVmdDsgdmVyd GljYWwt FDqlM876GZRywSyaJaUmAtT 8ClD9Mii5X5CoAtc7GAFriM dyMZ2ohDDjFGhyWp0phScom KjiQF5m XRJbcufsTWGiwD2oRBRviAZ fcFfvDL6aLVNgitubg707Jk LvZUF4VCDeqKGqL9XxuP1xT iAjMDAw WSRsD9GuxFFfRIhlM842TNe yUiI7ELTjyjEmN4DxGIWibF fnRpT6q9L5Cg92WHSGCKPaf zwvdGQ+ PTUfSOP0hXgdHMykSPWnyQ3 cDDRsF7t7HgSfPpX1JJlyY4 CwXONsvpqoSq63iG8mKcJvX hY4YOrx L6NqoiT5SRJcvLHxKDbqPZH 1V53hz7E4LOAyJOZlSXJ3kQ U3yO0nmMnnpwtqdUCfaNzdw mVydGlj JEqxJNdnY139WEQwmBxcLu0 QFPM0W6NqApd7OMQxmUfnVF 5rwFWoVYabDs9gpAnrkAkzT C8nKGHa wrgxKCSopT5gHSCigHNrlXu lFR5sMXVxndymw130OpCpEU F0PUGurKKfV0GubI6mReAxM DAwMDAw P2ZrxLWqCAetR268PEfjInW 3MIUurcOoS0YhTIMbaWmmRn G4m7S8Xu2UPTjdiGC+PC90c d69Y9Vz QowkFtt3FGViELD9eAH7rV0 qVXUtGBkar8Y3lNJ2B9Fruu Ffpy6be6ojSTYeNDllP03wf KGgn8K3 CYYooHE1KQRkkVttTuYklP9 3Oyc+IWWqmWpqe1YzUjvyj4 lqn4lluNt1YeMkNFDlsmSin WduPSJ0 z0InWe82K90uFVlpDMCsPHY gVNWlBLGrjZbyyk6liK4gId 8+IRAbzMA6mEJ6aY9nWgWbZ oU6UQag Y932OpPrdGMdSdiuo3jrv5b lqAu8MlCaEZQwpfAorRasUM A9a4WlAi30R8JppQqpe0VvN te7yj52 iTKaj2P1bNU3F2HuPMEahjg ylWKrvTkqRA9tZMHeqohjWN HyvE6iECGcA9h1VnWtUsL5U ZtvC3Hk poE6KZWnuVZlFBOxpSBUnC4 irimqv5ajpciyTyJeEQLbTX s7HLe1EZAcaYvmTnJzKFY5E uI8MWF7 iLBrjM9rbMecqoaptV0wCtg +EIa5j1orfJXzNR8dcII6LP 94OD96tTCyj8Y2qMX6K6FoU GRpbmct turukTX0IHPeVMTrbN14Yn7 obYwiTf2tYYKqRKH9NECfgC UwL3BfgV8oFiLsSUKdCFSzF 3RleHQt OZehS635OHdqBxX7OVOzefJ qH5NrSVPsnPcpFmS8a0D5Qr 9KNF40WJ76KN93rPVxw5V7q RR2E5Bv XUXxnbnslupeiGX9ATYcMQZ rkC76Cj2ahUlxOj3kMXFdUY M4FEHxsXCiJ0LugO2nJqRvY DAwMDAw J4QkpZBbBGqpJ122FIprUiR 7XBKmgfGwN0RuCXJhnPqzQk H8k9S5Pp6MJm70HQ00LJ72j QLha1D5 pWX3T9XuYQHchvmsgbolyOB 9RPOtHLWqgG08Mr8dlVhpLb 5vWAZuQTS0HYUcgLGmL9Umr X2hLzJm MBOmFYFfK9FvuZWbWEouI93 2NVepCtY4MBPexoYmM7MrOL UhvVccOnH2r1U0Jm3YTAnlt ja7K1Eu PjwvdHI+XB63MWCgTR51wDV ywMDfl9aufEp6WoLrGPXlXQ U2ePgcLVboa5SnLDHfQ50jw VJic9M6 IGN (more content not included)... [facility] Coding Summary HTMLBase 64 JcjixkpkCHh3aJf+PGhlYWQ +BT8ZSIPsS07vvHUrqY6vP2 NMTElOSywgQVBQTElOSyIgb zRyIP4yrICzQQKf IC8+KK0rEOKmGydyiPUbk7M 1pXC2L51tsu6sPAlsrXC8CE EdEwPfcwuyf9tbuWf1RWcuA mluOyBt RRYjaI95PXG5zW48Pw43iRJ dtPSqe1cwqVu0DcCkACZmUM C3bSmoXZxwg4IiFBMaQ05eg QCpi3A4 IGIgvSuwxAMsTiZliLV1rW7 lJZolrdbbw8mkhsolKpe4ch 08oDEzn7P7lQH7M8RvswV9R GJvbGQg DkfinIRCgG5gqinod0yatar dDvKgNRLfYJm6ADm1HWFpoT ntNrVeBG26ZRT0ZMPrbzLyJ 2FsLWFs mPscJdT9j8G8Zb2WJ6FAWly nD9ZLFWWCMKnlaOK+PC90cj 12I5SxHwtzEit4MINjYCH6n KM2eA0w JCEsMIjwo4E3kNJ4E3YtavZ ajd4zh1ncFEYyIUxnC54ubU Oqk4O8QJEfeXS0VGCyuXncA iBzaG93 Oyc+HPCwiIcjp3NgSdswr2d kt4wvoTa6PczyUOEkehCssH rkBPS3d9WiFa4bVGMyrEO6l YD6qO0w JdCcBmC5ZQciP913OrXowFX gDcqtV89cG9PlsBP+PHRyPj u3AYKsqQseML0jA1UsWGFpm mctbGVm sEceRZ7dVFIazrnaDUVfwJ1 nXYKlE7c3RyBeMjJ9AVwyB0 AbIFOmhuxjUp64sQ5oWqUgK uI5YRuu A0BllvK4WURjtLVvATqbLBJ 2E17et8I9GGVwDQYcSGY4jJ V1uU1srXuowiydaZJeiUekz mVydGlj ODnkRLluC297OJNeqUpiHmJ vZGluZyBEYXRlOiAgMDIvMD UvMjAyNDwvdGQ+PTMjWIO4d WxlPSAn nKWpEOvlMq1ihLrjyVbyPA6 uTHJgfdrcKYYltH8jYSAbwE SjxCwrGZ9aIADpssjnf437L iAxMHB0 PAByvSHbP0WifV5sMkWgXOP gTBLmG2JozJLdTIyoJ692MU jzGyU4MAAzojQcN4XeTHMrz WduOiB0 s5S1Te1Hf2YqnlvbC2HfkOR zWdRiSalmCZl9M0CzZqnepM I+HT23OILsVW83VTf1RIL2z WxlPSdi GQXxO3OkdU1gJbXgJQCnZVU kOyc+PHRhYmxlIHdpZHRoPS scTYNaYsRnxUjdTG1eHs3lH GVyLWNv kOfbsKKwCaEyp5raIAMgBIm zJW4dbAbeB9JxnBL4JHXkc5 s3Vv53W72wX0MycEI+PGNvb SK3lZF8 kY6zVlKnZiX4GPqfQ560VqE wfTDhGvnix6dnm7pxoDe3St A9BIPiqxRirGjkSIL3y4KkG t79I52x IHdpZHRoPSIxNSUiIHZhbGl udr2wlA7pWr0+FREiuMM8qY F2fZ5nCaSeMbI0EUydV305W nRvcCIv Xhwpv0qbp4knnZo1UbEtUEU alcHhiLbtQQA5f4HoBa33X9 JyuDelm3SoLdp0ht23yOIdv 6R1dZX6 R7DuBDTvngtfkVEcrTasYR1 jTNDlrtxvMGYfwI5uDLVmN4 c6JeJeQqO7WFvaU3OwzkG3C GJvbGQg SJZqtBXEyO5nojeow6xqvby vCqXaJJHcFNc1UNw7JUJxnT qvZwOgRCU7JuU6DTJ2yLNiz S1iqQze aqhuqX3wRdr+VEH7gOOiiSU MJB2kXequoEK+JBVnCXK6iI ubDWspPRZbwV6qQVBsV1w9I iAwLjA1 TTqwS3RfaoA7WIWggZZmSVI nkAMMhB7siinbz0wltaxgRj CvMJRbOVo1WNl8NBUcePnkO iBsZWZ0 PeZ1KFK6rSWwhV7nuGctstg woB5zOrc+RywwxPluPDJ7MY q8S4WyDlt5SDEzeOxrGJ1hi GFkZGlu Yz1zkYbnoFcrZA2lEIPzbap kf212MfSfv6xwVYRkiUGpRQ nzGRD7B30id5I8AKLrKVCzM YR3wKZ9 nI7rlTtgdsjmaHKznHrjnoD fgRzgQAbyPEufW591WLLenJ xfYdXrDMl2Y6GsDbp0WNCqw ZsfVI0o aNPfPVkfUr5vxAesoCdkAH8 eBFVweihzc716RxZgy6imPM XmuHWoUEikJZM5K50rs0F1M CMwMDAw RSO5sNX0mV8vwAvmfkgubZI mdDsgdmVydGljYWwtYWxpZ2 89LJNqgThaRbZiaRu6Q1LkY wg6TNUs gQwjRU3dkBFjNKfhKx4tlLr wcQwkLF4gTKSfdfqaw251Dh Yvd1okKORzpDIoYMznVCE6G 03yx0Q1 AWSfINThUZD1lJE2gC3mqYl nbjogbGVmdDsgdmVydGljYW jfVShoS188PQAesGhbDdTyn GllbnQg UOjjQIw8U2WuYlmpoBA+PC9 8ODCwPU98fGHcfPWjt2fuwC j6OxQlKCPdYEE7tSyqEUsyd 3JkZXIt Z92opNCei8P1MZDkyQhyrON zAqLpvTT2vU3uKRueepsth7 ksbbyoTffcf2visd16lB95P 29sIHdp ZHRoPSIzMCUiIHZhbGlnbj0 auQ4kNo4+UTAaxXT1nIW4tH 1cBLBkJaB6YPdeP745BsJiu CIvPjxj h1uii9kbdXh1DnL1JFDoqlY bnMfpFNU5l9DsSg79Y78fCF dpZHRoPSIyMCUiIHZhbGlnb d4zaM7e Ii8+APRgiRI7kHC5zP3aUqU nQkO9IGgfW469ZqGyhYLqCa btI25rA9MrjSU+GXSkIrb1C CBzdHls WP3ovCHdOJyvLt1hSBA3YwJ dQoMzFLmrU6CgUBHkqdwkva gwiMC5XNZuPMBdsC49Nc3mo DogMTBw zVDMbZ4pcmesz8nghrdpKgP qNTYaVDi0DPq5UCUdoPseNr SeONI8LhC7VAP6zMQfbP7at Glnbjog zL7uL3FoGDQlivbsJw44sI3 dTsTtCeQ4YYvtKgx+U0FNUy wgQUxFWEFOREVSIExFRTwvd GQ+PHRk AHD7cTagFFqiHAKnpB3bZWG lD9r7LbHeGkE3NEapB1JxQE PvfkulHj91kW7rOiSxIfY0B EyzP6Fu baI9AAEelKCzXBgrRTD1F77 gv5K4UCHmHVWpTYT2nQA1rB 1hbGlnbjogbGVmdDsgdmVyd GljYWwt DBoyS206URSubWsmRaTdHyF 3WlS8Xmx9P7EfCsd6OCBwqN quQY7apLSbVSsvWq2jwEbyv PslZS4s EKYzmuraXXMqfB2qTCTroJD lyMgzYF7cCVZwwdaym758Qv YfPAE5XTVluLTwO4NydY8fG iAjMDAw SFChE2OvuACjRQpnU666PDy vUhY6STJxmuVjG6GzQSMkrI ifCcD6b1O9Ls31QTLLNDFsb zwvdGQ+ YDJtSMH0lOtpJMorBYBzyC1 gYQZaE1w0HjPeYvD1LDxcL8 EuDRSkkbgxUw36fS2uFzWtO uR3QRxx H7YymaK6BMKaiVJdJNsyMGP 9Y52wo9P3KARjIQQsNAP8sP E5mW7vcKwjjfolgDXpyRjfy mVydGlj TUyzJOekD254LWEztYrpEc5 XOUU3M0CiGjv1XBQpkLztDU 9yfKAqZWswMo4ioJhhcBtmY A4pEHHo wehzHVPxeH8lWOTxcMVdyOi mWZ0vWKDijlual050HzOxUE H9MTBjvZHyU2VheR6cYhKbM DAwMDAw O9PlgXBuUUfxI903MJanEhF 3BAMkofNlJ4DjIEAxvGesOv L5i4S8Rs2ZOUwnuCF+PC90c m05I6Hc UgfgZpj2PHLkLMM4jDD7iV8 mEWCvGOvfa4H7tVL6B9Caap Eqmj2pl1ygFPDcJVqkF36ow XQur4B3 WSRanEV3NHMobUmaUkJpxM3 3Oyc+MQUfpRjfi2CrRinhc2 gga0mntBi8JpQeZEDxzgLmf WduPSJ0 e1FfMq19S49gVMlkWORcZYZ hJZBsUARtrHbnoc3ctA5zOh 8+ATOwfYL3aET8mR5lUgQvF sM3DByr L675YsVcyXWmTrnfh8mca1g waFv4EwPfHRTntyTjeEvsVG Y0v8KnJd35O5GvpBqcf4IbJ zd2pk13 aHHha6Z4pJI4I4IiBZKdnvk ecSTpkBptHB0bAQKaemblDK RlhG3mUQQdV9t5PpShSmU4V HvxL5Fu tyM3YMNosKOkTLRenTEWdT6 sgmyvd7wgkfrvSqXgYLNzZY z9AZm5MQIowNtmLfMhEDW1D yY7JFD0 xVYyaX4lqBqmakhcjK2fCjp +IKd5z8vgmOKvWM6ljBU4EU 20WE50iHNye3D7qET6F4InE GRpbmct gqutzFZ9GNYrQCIgaO82Ac8 ulOpqOa7sOSDcCEK9LBIlcB LmY4PulN3vXwAjSPWmUUHpU 3RleHQt NOamE027YGpnBvS4EKGckeM tY0NwRZPqhJylCaP1r1N8Nb 9MLU16FO33LL35eORjq8Z7d TE5E5Tx TINmidwoolfxyOU6WIJoQBE rdJ61Kq3bvSpzOk2qETZgDF L5LGUijBVoN7FxbJ8wXzYwR DAwMDAw W9BspLCwBWslE786FMgdQdQ 7TAEwogOuF1McJWCqlRzdRb T8b8K6Ro5YKj60LW46TJ68v QVqj3R4 pHY5H9HhRKEcpouregkibKW 2DZDiOOCeeQ34Uu1ioRupDf 4vDVEtDEL2PGOhyAQcN5Tds K8oEpCk CONrTJAyS7AtfGOoSBbwE52 5TBpdRwE9RXQzilFmR2MwGP ZcgSmiEaF0y0B1Pe2UHFpuz hh4K5Ib PjwvdHI+WA77QKAfWD63dVQ rsPZzv6yqxSu1SqCcMJYhJI L2sBruKWnym5OvVOJtY04lh MMbz8B6 IGN (more content not included)... [facility] Consent Formson 07-11-2023 Consent Forms [id number] TGTIFF [facility] .Auto Diff 1on 07-06-2023 Auto [place] % 7 % Normal 12 [facility] Comment on above: Performed By: #### 1 [id number], 0652878, 5818439952, 92997731, 0840531802, 4252303622, 68969308 ####[facility] (DEFAULT)[address] [place] [address] Baso Abs# 0.0 x10 Normal 0.0-0.2 [facility] Comment on above: Performed By: #### 1 [id number], 2779917, 8945161932, 17782075, 2051079920, 2863524167, 49635885 ####[facility] (DEFAULT)[address] [place] [address] Basophils/100 WBC (Bld) 0.1 % Low 0.2-2.0 [facility] Comment on above: Performed By: #### 1 445959659, 1318719, 3769259538, 72841801, 7872006910, 3639211059, 05756308 ####[facility] (DEFAULT)[address] [place] [address] Eos Abs# 0.2 x10 Normal 0.0-0.4 [facility] Comment on above: Performed By: #### 1 056170895, 4621918, 8971678372, 60863247, 2320542645, 8656908781, 49761140 ####[facility] (DEFAULT)[address] [place] [address] 83355 Eosinophils/100 WBC (Bld) 2.9 % Normal 0.9-4.0 [facility] Comment on above: Performed By: #### 1 778757845, 7201818, 3504479864, 29099374, 0173948360, 5518991824, 01736455 ####[facility] (DEFAULT)[address] [place] [address] 30622 Lymph Abs# 1.7 x10 Normal 1.3-2.9 [facility] Comment on above: Performed By: #### 1 304351090, 7445523, 4237652880, 36061362, 7093883009, 8161517980, 92013482 ####[facility] (DEFAULT)[address] [place] [address] 21058 Lymphocytes/100 WBC (Bld) 31 % Normal 14-48 [facility] Comment on above: Performed By: #### 1 317965139, 1115568, 5646092341, 19845973, 6391126020, 9142971958, 77109121 ####[facility] (DEFAULT)[address] [place] [address] 37981 [place] Abs# 0.4 x10 Normal 0.0-0.8 [facility] Comment on above: Performed By: #### 1 018094913, 6768783, 9915460374, 40286997, 3084530873, 8522642052, 58446915 ####[facility] (DEFAULT)[address] [place] [address] 80175 Neut Abs# 3.3 x10 Normal 1.5-9.2 [facility] Comment on above: Performed By: #### 1 806390102, 8634121, 8849618322, 62578287, 9576643133, 8587516439, 93648251 ####[facility] ([facility])[address] [place] [address] 78564 Neutrophils/100 WBC (Bld) 59 % Normal 44-88 [facility] Comment on above: Performed By: #### 1 479905608, 9191026, 6032074998, 10262335, 9383832379, 7627654267, 14640776 ####[facility] ([facility])[address] [place] [address] 68361 BNP.on 07-06-2023 Internal Control Pass Normal [facility] Comment on above: Performed By: #### 1 216705120, 4733874, 8940545723, 99177837, 9078458450, 1338593796, 02853711 ####[facility] (DEFAULT)[address] [place] [address] 86360 Natriuretic peptide B (Bld) [Mass/Vol] 6.5 pg/mL Normal 0.0-100.0 [facility] Comment on above: Result Comment: BNP results greater than 100 pg/mL are considered abnormal and suggestive of patients with CHF. Higher BNP concentrations measured in the first 72 hours after an acute coronary syndorme are associated with an increased risk of , myocardial infarction, and CHF. Performed By: #### 1 898007480, 5138453, 1965582297, 98930982, 6169175587, 5788648202, 59018114 ####[facility] (DEFAULT)[address] [place] [address] 77047 CBC w/ Auto Diffon Erythrocyte distribution width (RBC) [Ratio] 13.0 % Normal 11.5-15.0 [facility] Comment on above: Performed By: #### 1 545583277, 3087429, 0425860695, 64896386, 2301945843, 8400398378, 19505668 ####[facility] ([facility])[address] [place] [address] 86873 Hematocrit (Bld) [Volume fraction] 43.9 % Normal 34.8-51.9 [facility] Comment on above: Performed By: #### 1 682530812, 3804506, 7114742056, 21387759, 4801532272, 6696731574, 83903192 ####[facility] ([facility])[address] [place] [address] 04547 Hemoglobin (Bld) [Mass/Vol] 14.9 g/dL Normal 11.8-17.7 [facility] Comment on above: Performed By: #### 1 088380479, 1331942, 0031491280, 95405998, 7755804552, 2598948797, 21716980 ####[facility] (DEFAULT)[address] [place] [address] Man Diff? Auto Invalid Interpretation Code [facility] Comment on above: Performed By: #### 1 172490762, 2826997, 7802224598, 49548172, 4017881721, 0189684459, 68738183 ####[facility] ([facility])[address] [place] [address] 90988 MCH (RBC) [Entitic mass] 29 pg Normal 24-34 [facility] Comment on above: Performed By: #### 1 526723373, 9613321, 8746943362, 99822434, 8859977379, 9237684826, 04844564 ####[facility] ([facility])[address] [place] [address] 52618 MCHC (RBC) [Mass/Vol] 34 g/dL Normal 26-37 [facility] Comment on above: Performed By: #### 1 832160220, 0434073, 1795393098, 59398806, 6165388764, 6140650296, 12912567 ####[facility] ([facility])[address] [place] [address] 73401 MCV (RBC) [Entitic vol] 86 fL Normal 81-100 [facility] Comment on above: Performed By: #### 1 083069493, 7147116, 0223697305, 36559584, 1947224336, 3298787026, 78142350 ####[facility] ([facility])[address] [place] [address] 46102 Platelet 100 x10 Low 138-427 [facility] Comment on above: Performed By: #### 1 130190375, 0711962, 2833058635, 98679830, 6695914406, 7657385386, 03743058 ####[facility] ([facility])[address] [place] [address] Platelet mean volume (Bld) [Entitic vol] 10.9 fL High 6.3-10.2 [facility] Comment on above: Performed By: #### 1 007037110, 1510413, 8780812178, 77941504, 5170117606, 9404613147, 32039827 ####[facility] ([facility])[address] [place] [address] RBC 5.11 x10 Normal 3.70-5.30 [facility] Comment on above: Performed By: #### 1 186497288, 2015792, 3422784314, 13075018, 5731762175, 4191269962, 80372387 ####[facility] ([facility])[address] [place] [address] WBC 5.6 x10 Normal 3.5-10.5 [facility] Comment on above: Performed By: #### 1 917222452, 6873451, 3290113854, 75960298, 5858409803, 8424280435, 19218422 ####[facility] ([facility])[address] [place] [address] CMP Standardon 07-06-2023 eGFR Non AA >60 Invalid Interpretation Code [facility] Comment on above: Performed By: #### 1 280735557, 6829130, 6979621138, 62007655, 2574029700, 0461722572, 01797521 ####[facility] ([facility])[address] [place] [address] eGFR AA >60 Invalid Interpretation Code [facility] Comment on above: Performed By: #### 1 221612433, 9725202, 6683105336, 26899965, 9644477707, 6933864202, 43536737 ####[facility] ([facility])[address] [place] [address] Albumin [Mass/Vol] 4.1 g/dL Normal 3.5-5.0 [facility] Comment on above: Performed By: #### 1 803446901, 2563408, 8085412867, 33595836, 4207578460, 2542680667, 52083859 ####[facility] ([facility])[address] [place] [address] Albumin/Globulin [Mass ratio] 1.4 {ratio} Normal 1.4-2.6 [facility] Comment on above: Performed By: #### 1 848762132, 8555976, 9607030949, 15678343, 1175292429, 0607693342, 17600621 ####[facility] ([facility])[address] [place] [address] Alk Phos 56 IU/L Normal 32-91 [facility] Comment on above: Performed By: #### 1 085686975, 3166415, 2968760972, 70993012, 6093755914, 7990654862, 03369754 ####[facility] ([facility])[address] [place] [address] ALT [Catalytic activity/Vol] 73.0 U/L High 17.0-63.0 [facility] Comment on above: Performed By: #### 1 737160124, 6793781, 5710238909, 59510790, 6192137194, 8757341962, 32373080 ####[facility] ([facility])[address] [place] [address] AST [Catalytic activity/Vol] 41 U/L Normal 15-41 [facility] Comment on above: Performed By: #### 1 028036928, 3010457, 4153053696, 53945325, 3155845997, 8331072800, 79083117 ####[facility] ([facility])[address] [place] [address] Bili Total 0.7 mg/dL Normal 0.3-1.2 [facility] Comment on above: Performed By: #### 1 778649410, 9297080, 3317738448, 25980227, 5205328900, 5962755027, 13833369 ####[facility] ([facility])[address] [place] [address] 31375 Creatinine [Mass/Vol] 0.92 mg/dL Normal 0.90-1.30 [facility] Comment on above: Performed By: #### 1 850611778, 9243954, 6787564535, 84705754, 0520983468, 2670138657, 42195648 ####[facility] ([facility])[address] [place] [address] 10675 Globulin (S) [Mass/Vol] 2.9 g/dL Normal 1.5-4.3 [facility] Comment on above: Performed By: #### 1 039582700, 8519581, 1611047584, 82037976, 6726259002, 9639123422, 00680694 ####[facility] ([facility])[address] [place] [address] 92897 Osmolality 284 mOsm/L Invalid Interpretation Code [facility] Comment on above: Performed By: #### 1 656098124, 2165474, 8887355714, 92178687, 4087532364, 7028815470, 02465951 ####[facility] ([facility])[address] [place] [address] 26745 Protein [Mass/Vol] 7.0 g/dL Normal 6.5-8.1 [facility] Comment on above: Performed By: #### 1 936702501, 9345126, 9878270868, 83071538, 6031207707, 2391478104, 75139073 ####[facility] ([facility])[address] [place] [address] 37390 Urea nitrogen [Mass/Vol] 25 mg/dL Normal 8-26 [facility] Comment on above: Performed By: #### 1 633807937, 1101515, 6942308703, 01462168, 2945756485, 6580350660, 65663445 ####[facility] (DEFAULT)[address] [place] [address] 66443 Urea nitrogen/Creatinine [Mass ratio] 27.1 mg/mg High 4.6-16.2 [facility] Comment on above: Performed By: #### 1 128037441, 2657969, 0454044478, 57210944, 5173812696, 2943471727, 88531082 ####[facility] ([facility])[address] [place] [address] 73093 Anion gap [Moles/Vol] 9.7 mmol/L Normal 5.0-19.0 [facility] Comment on above: Performed By: #### 1 123771437, 1145714, 8844466186, 44987034, 1840423654, 9812872230, 31743328 ####[facility] ([facility])[address] [place] [address] 86528 Calcium [Mass/Vol] 9.1 mg/dL Normal 8.9-10.3 [facility] Comment on above: Performed By: #### 1 110574293, 4059151, 3904145429, 48023005, 4044552325, 2213432319, 86290681 ####[facility] ([facility])[address] [place] [address] 40136 Chloride [Moles/Vol] 105 mmol/L Normal 101-111 [facility] Comment on above: Performed By: #### 1 848748063, 1887842, 5281593184, 74283183, 3302165141, 3846390323, 66472883 ####[facility] ([facility])[address] [place] [address] 53121 CO2 [Moles/Vol] 29 mmol/L Normal 21-32 [facility] Comment on above: Performed By: #### 1 420320768, 4696011, 0099088765, 72407275, 3034660635, 5523699499, 16935711 ####[facility] ([facility])[address] [place] [address] 32633 Glucose [Mass/Vol] 112.0 mg/dL Normal 74.0-118.[address] [facility] Comment on above: Performed By: #### 1 013698527, 8175030, 2661344897, 39707490, 1158146323, 2710273448, 32366685 ####[facility] ([facility])[address] [place] [address] Potassium [Moles/Vol] 3.7 mmol/L Normal 3.6-5.1 [facility] Comment on above: Performed By: #### 1 393707066, 2721830, 2652188150, 95705308, 8548867164, 8589749800, 61935222 ####[facility] ([facility])[address] [place] [address] Sodium [Moles/Vol] 140.0 mmol/L Normal 136.0-144.0 [facility] Comment on above: Performed By: #### 1 308413638, 7127944, 3233610021, 52540810, 2602034228, 1137175301, 49553699 ####[facility] [facility] (DEFAULT)[address] [place] [address] Breakpoint Chem Normal [facility] Comment on above: Performed By: #### 1 [id number], 0851097, [id number], 35552485, [id number], [id number], [id number] ####[facility] (DEFAULT)[address] [place] [address] HgbA1c Standardon 07-06-2023 .Hb 16.8 Invalid Interpretation Code [facility] Comment on above: Performed By: #### 1 [id number], 7331790, 1081962617, 95102223, 8898021705, 8454625103, [id number] ####[facility] (DEFAULT)[address] [place] [address] .Hgb A1c 0.66 g/dL Invalid Interpretation Code [facility] Comment on above: Performed By: #### 1 [id number], 9696126, 6198369831, 68644252, 8961667038, 2670219747, [id number] ####[facility] (DEFAULT)[address] [place] [address] Glucose [Mass/Vol] 117 mg/dL Invalid Interpretation Code [facility] Comment on above: Performed By: #### 1 [id number], 6107625, 9984395456, 58749876, 9631230272, 7983023119, [id number] ####[facility] (DEFAULT)[address] [place] [address] HbA1c (Bld) [Mass fraction] 5.7 % Normal 4.6-6.2 [facility] Comment on above: Performed By: #### 1 [id number], 6099886, 8172050664, 76502151, 3770331624, 3955676623, [id number] ####[facility] (DEFAULT)[address] [place] [address] Iron Profileon 07-06-2023 Iron [Mass/Vol] 79.0 ug/dL Normal 45.0-182.0 [facility] Comment on above: Performed By: #### 1 [id number], 5661794, 1532677687, 57822544, 6610041720, 8176919310, 85401267 ####[facility] (DEFAULT)[address] [place] [address] Iron Sat 20 % Normal 20-55 [facility] Comment on above: Performed By: #### 1 [id number], 5336079, 8973519038, 09124890, 6243368141, 8548531477, 14591474 ####[facility] (DEFAULT)[address] [place] [address] TIBC 402 mcg/dL High 250-400 [facility] Comment on above: Performed By: #### 1 [id number], 6117107, 9286834162, 54586242, 3913545391, 5290668048, 23539242 ####[facility] (DEFAULT)[address] [place] [address] Transferrin [Mass/Vol] 287.3 mg/dL Normal 180.0-329.0 [facility] Comment on above: Performed By: #### 1 [id number], 0694254, 1272410325, 11032538, 0512974777, 9722426239, 33078623 ####[facility] (DEFAULT)[address] [place] [address] Lipid Panel Standard, Non-Fa stingon 07-06-2023 Cholesterol [Mass/Vol] 154.0 mg/dL Normal 66.0-200.0 [facility] Comment on above: Performed By: #### 1 [id number], 0266901, 6809848911, 18512993, 8581255894, 2450738366, 00620197 ####[facility] (DEFAULT)[address] [place] [address] Cholesterol in HDL [Mass/Vol] 35 mg/dL Low 40-71 [facility] Comment on above: Performed By: #### 1 [id number], 7467005, 5982489245, 80241730, 7872518597, 4528691761, 37243456 ####[facility] (DEFAULT)[address] [place] [address] Cholesterol in LDL [Mass/Vol] 83 mg/dL Normal 1-100 [facility] Comment on above: Performed By: #### 1 [id number], 4606153, 0021143818, 50440102, 7517775349, 3137859801, 26998078 ####[facility] (DEFAULT)[address] [place] [address] Cholesterol.total/Ch olesterol in HDL [Mass ratio] 4.3 {ratio} Normal 0.0-4.5 [facility] Comment on above: Performed By: #### 1 [id number], 0558560, 5454084207, 20484852, 1846721256, 4762199130, 40613666 ####[facility] (DEFAULT)[address] [place] [address] Triglyceride [Mass/Vol] 177.0 mg/dL High 0.0-150.0 [facility] Comment on above: Performed By: #### 1 [id number], 9640228, 2834934921, 80931231, 3508063303, 8087483973, 21609432 ####[facility] (DEFAULT)[address] [place] [address] VLDL. 35 mg/dL Normal 5-40 [facility] Comment on above: Performed By: #### 1 [id number], 6584155, 2866967964, 15147309, 7385856038, 0631371747, 95471384 ####[facility] (DEFAULT)[address] [place] [address] Provider Orderson 07-06-2023 Provider Orders [id number] 0OTGTIFF [facility] US LE Arterial Duplex Bilate ralon [...] Augusto Mensah MD 07/06/23 4:09 pm Technologist: [facility] US LE Venous Duplex Bilatera [...] Augusto Mensah MD 07/06/23 4:07 pm Technologist: ,[facility] Coding Summaryon 07-01-2023 Coding Summary HTMLBase 64 YzeppnpqRAn1zBl+PGhlYWQ +JH6YLBKlN68ihSOniV1vR4 NMTElOSywgQVBQTElOSyIgb gAzQX9prLKvYPRl IC8+SO3pGLUtAtrvwZCxr6U 3yZP7L66xlk2iJSefiAT9TY CpKxSeinboy8asxBp0FKcaI mluOyBt USPpqU19XMV5xX73Qf32iZP kzOIgv0hlpWi5JqUdVYUkXV R0rXccREmea2GkTPSwT88bv GUjm6N1 ZBIidQquxLLlZqFhdJX8wJ3 iEHzfqxxtn4gyeajpOze8xa 34mWOev2P9gIW5B1AntuW6Z GJvbGQg RvjwaSFScJ1hiqipv6mfasj kOdPvZXHoRLf0UOc2HITipH tdGaSdQN77NXM6EWWsrbTnK 2FsLWFs rDcfKfC1e1J8Hj3JU1KAVqc pR5ETUHNMAKnubEX+PC90cj 27W7PyJluzHcc8TRRrSVF0h DF7uE4l LHJhMLydl0R5gKC1F2UtgiW tdc0lj5fyOFMpUPgeR42kcJ You3Z6FIJjkBC0AOOgqNbxY iBzaG93 Oyc+XDXctTcjj9IuIawne3l zk1mioOp9SivvACLmctVekI hrMYA3c2FiVl8qUAVdoHG4a LP0kE8y ObFiWsA5FMnfE335CuGdpFO qCrwqW36uU5NtiTE+PHRyPj j4KSGqfHufFQ7cB4SrZFQyk mctbGVm zQszXA2tVNBlprzkGYWapS8 tPSJnB2p9GyLdOvB8MGbaX7 UzSAEmuxybNd24bO6gNoMlJ jY7EPmx V9QxuiE6CJOtbYWqPLfvPFQ 7Y26et2W2XTHeMNCgOVB4bL H5sX4meYunyrnauYKiiYdkw mVydGlj QAnwWTtyW182IUFjyCdyGfX vZGluZyBEYXRlOiAgMDEvMj YvMjAyNDwvdGQ+LMAhYDN2i WxlPSAn oYPfDZttYz2uiPqleXcpDI0 eUPBewglxBBPebZ1cMVGaiA OvjSgwGE4tKQJkaphze106L iAxMHB0 KRDxpDOaT5OloX0lFhYaDWI oZHIfW8QndKFnDHfbR468CM swMmD2AJDoqzZpR6ZjWDTnm WduOiB0 o1F2Kc7Eb8ZdzyiyC1SvhMU cWlCbMvrmKVv8V9SuKrverA I+ZZ84DGTtNY05DYe2LIC6a WxlPSdi EJHoJ8QfyZ7kQaIyUYQrJPR kOyc+PHRhYmxlIHdpZHRoPS qfHLFyEdPkfLzaPQ5cRh0eF GVyLWNv nOirjWWuDpLcj3umCWHpSYa zKB1leLwwR0VsqGD2CAZpe2 u6Le39E45bH0AbaMB+PGNvb PQ5yGB3 mH0eCkTwAtU8SQsgV268WdZ zaNToMiusj2lac6rigRl0Ah O2XNNpheEwrOrhPIO0z9CzX h17A96l IHdpZHRoPSIxNSUiIHZhbGl ijn3kgQ3sTc2+KBJanFS4pK Z8iZ7tAiWaFaC1CRijT731R nRvcCIv Kbvei5she1miuOm1ArFrLBW cljEjmCioGOG9d7VpNp51Z5 UynUfca1FhNqx8lj84oVTbq 9I3qZR7 O9YjUIUckizrbTAmjFroRD0 kTLCarkevVEZxdG6hTOCgH0 p3HwJeTcH5CLamU9NkzoR1U GJvbGQg SIAgrXNWnY4mftglj6mavsg wDuVkRIQcFIi8YXc6PTAmcE kuHmBkEJG7IhE1HPK1zJFso K6qcTcw frkgjH9iGhb+PXS1lFShoUC WAZ6gRkxykSD+YPXjLXA5hK xkKTsjFTNouX9hTBYuF5s9M iAwLjA1 TBmoK8ZpobN9YOMveNUrURF xmGJIrU9oyaxbd2tgbudrGf ToDDQcZPt7IGl2QNBnuHykL iBsZWZ0 AqP9MIC1aHLukI8jdKsvdzc drG5tUpw+WnyorTclCMA8AE x8Y2HvIxq2OSEgcPegKP7ca GFkZGlu Wk5bqUccdRjbNT8wZPDxoxh id113ZhSog0uqQGAcgFJxLZ heZZN9S80oc7K6KENjOODgB GQ1xXU1 jL0fzOqxobyypWOoqTbfxoD qtDxqZVaaTUruD273VFDkjH swWfZzBNc8P6JeAxm5GFLlg HnfNI7f yWLmFFqjWz4ukXucwItkHG7 kHRKneeukv756ZsAuk7qeLU TllDPdGXdfJCP6D33lj8F2C CMwMDAw LWQ9pQN7gK4xnAexdzmbxWE mdDsgdmVydGljYWwtYWxpZ2 39BNCdiPypSnUpjRe1Y5MrD qs0MIIa zFfgYN4wzXGpFLyvDo7okBh clKliKX1uGWBohdeaa006Gd Ofu1nsSQVncVZdRAlmAMX0Y 33za2N8 ADEfQCYpADS6yIJ5lT6seYe nbjogbGVmdDsgdmVydGljYW jfUGfsX150OVJavSfoUhNys GllbnQg DBikFYr9J8LeGudsjKU+PC9 4AKImTM01oOSkkBPgp1infB k9SnQmXANbQMX6cVojTYjly 3JkZXIt S70reEEef5Q7YVJxcFjizCJ mNfJnlRJ9jM1tJTdzyvsvq5 hshuwzInkbi6toxn36uC30M 29sIHdp ZHRoPSIzMCUiIHZhbGlnbj0 wpW6dWb2+YGYouBE3zCM6lJ 9tIDTeKpS3ZIavO446PtRds CIvPjxj q4cxl9nchKl4OcQ5MUOwyzY aaUjcYMV0a1ZmFw24Q76aCY dpZHRoPSIyMCUiIHZhbGlnb p7fcW7x Ii8+ZNOqmHV9gPS9xS7bNuX gIvW0CFriG061JdJxdJKzKg dqK43dW3TsoBZ+PLPdTob1A CBzdHls HF8bbGJdDIvoVm4rDHY6WfU dNtFnVCugX8YkVCTntgixzr twzKA0FZYwBEExgS12Hw0fy DogMTBw pNTHvN0euzfsz5kfqffcWnS sDOTsVMv8OWh8JVWhxLnaPs MqIAH0IoO0APL2lJJbdI8vp Glnbjog uX2tR2DbAIGieawbPa76iZ4 sRsOpXvQ1CMziJpq+U0FNUy wgQUxFWEFOREVSIExFRTwvd GQ+PHRk OBG0eRktMRhmLHFqnV0mKTC nE2w1UfIxOoU6IWglB3LsTL KrpnkwCj69sE5pVgXuWlU6K SgmS8Xu yfE4ACAfjAPpPLktRFT2G78 wp8S3MUQwWZGrVLH4cRH5gY 1hbGlnbjogbGVmdDsgdmVyd GljYWwt NWfwW571SJMjtGxhCzJbVlC 7UaU3Fzn2H1MeQhr2RQTttR bdAN1mvRVqRCdpSf7kdKvuh DotSG7g ZGQrxhnfKHCnvT5jVCIodXJ xqIxmGU1wUZMlcegff207Vb ShPLN7YLCdgNGtA5RruT0vC iAjMDAw XQUnU0EttAUcJLfrW583OUf sFtO7ZSRcgmNxS6JyIUVmbI vnWkJ4v9S8Rp70NMZFNUJpt zwvdGQ+ BFHzSQN6fCsxPTjyGNVflO6 oHDAbX6u1FiPqHmB0RSzdW6 QfLGZsodhyHp02xD5lAwFnQ nY2KInu P4PjcxN9MZOxnMYtLImmXGX 8Z59qs7Y8MJRmBZAkLYT6qZ E7fN6paLhepygxgNAejCsep mVydGlj WMkoEXgtO998RNFivLhuOz3 QEEP3S7DuMpe9KSVgxUodHV 5cdSPuWQusHl8baXtnrTxsX D1zSUUd rhjuCNWvzS6eVYEuwSShjPf fOK9lBBIqcsjzk117WnFtQE P5LUQzeFTmP3ZikL6gMlQcC DAwMDAw B2UjpGUmPEzlY656JJfgYzT 0TUFvfsDdQ7FkJNKnkEhuUz W7m3R7Lr4DOJjksBA+PC90c s72K7Js UuayLuu7NSMeRZO4iPN9yW5 nWCMvPIwca7X2zGA7T4Snkc Kqzm2kf0ssSONiNQrvW23au ONve4J9 MKXgtWZ5YOQuvSahEsWkkG2 3Oyc+FKBcmFbhh0BwHoaxg1 lsv8afdUq5UpJqUOMaabChj WduPSJ0 o7FxAr26U13gKDsmONAjIMN eHLAlIWFheFtltb4xsC5kHi 8+RCBovRR1kNF4zQ2nKvGzH kA4BFex L660LbOeyAFqXqokg3bmy8t euBd2RuIeUOJzmnHulQjlEQ J6l8IkAw01M1HsdBecp3IjM bw2fm07 sCVur0L4iMW1E6DmCTIjdmf pmOCiyCetXC0zRBPkrndiRA OmcC6mQCIaF3k9CkCuUgR1O OiuY5Wy zsL9DLZvyXGgMRAskSUUoR9 luxpra7wwixlpXhZuEDWqLA w2HAw2RNZylNzwMeFiJNT7E tN3ZUO8 jIYflQ9xqZfqhqnyrR1nUzu +GQx1x6vxdUVzJZ9ldAY5XH 45NT29uYZxy8Z9bRX2C6OyX GRpbmct xvpjcTO0QATzJGPzwS07Dk1 xeKhlSx6gSMSjTNL4IYWhyV VpQ6CsrR8wLhOuZFRnGWZuR 3RleHQt IKklT847FRyfDuR3ACUvobZ wS9TzHUSsrAmuDzS9o1V2Zn 4VYF14KE83GQ57jDRdn2D5e MU2R2Bb RIBnebbwaenefIO4YKWkXSX lbK24Zb9ztYtdIr9nMRMhXR E1QRXpeVAsD1KfzB8uYnSoD DAwMDAw Y7AzuIIqBZwyK615JYyaPtG 0TITmgfOsV6XwYVUqcYgwMo I9f1C7Vl4RQr55PA73JO54m KPdq5O4 lPX0X1UeYMYekvgfcwowqPT 6NCOoVOVtpV00Lj5ziNakRl 2dYSEaGQE4HQTdmNZsB8Pul Q7wOrPy AQDdCKJuD6GuaIFnVRnsB88 5WGylZxE4QQQvjeDaI3FdUC EesRlyCqD8c4U4Ly2SOHnjo fe5Q6Vy PjwvdHI+MD71PCQxPL31uKU myJRzs2vsmTq3BfVlYVZgFQ D6lOyhRFuhh1SoXOSpM96bp ZMex3G0 IGN (more content not included)... [facility] Provider Orderson 06-24-2023 Provider Orders [id number] TGTIFF [facility] ED Clinical Summaryon 2023 ED Clinical Summary [facility] Care [address] [place] [address] Clinical Summary PERSON INFORMATION Name: SPIKE NIELSEN Age: 43 Years Sex: MALE : 1980 MRN: Acct#: Visit Reason: UC - Skin Problem: simple; RIGHT LEG WOUND CHECK Arrival: 06/16/2023 13:33:24 Discharge: 06/16/2023 14:24:00 LOS: 000 00:51 Check In: 06/16/2023 13:33:24 Checkout: 06/16/2023 14:24:00 Address: [address] [place] [address] PCP: Provider, None PROVIDER INFORMATION Provider Role [...] verbalizes understanding of instructions given Comment: Normal [facility] ED Patient Summaryon 024 ED Patient Summary [facility] [address] [place] [address] PATIENT DISCHARGE INSTRUCTIONS Patient Information Name: SPIKE [...] at home: Medicines ? Take or apply bixu-alt-nqaokru and prescription medicines only as told by [...] streak s (more content not included)... Normal [facility] Recordon 024 Urgent Care Record [facility] ? 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 were for an urgent problem and are not intended as complete care. It is important for you to follow up with a doctor, nurse practitioner, or physician?s mailing machine assistant for ongoing care. If your symptoms [...] so we can reach you if necessary. [facility] has provided you with a complete list of medications post discharge. Please inform your filter tip catcher/provider of your visit and for further instruction on these medications. Any specific questions regarding your chronic medications and dosages should be discussed with your primary care physician(s) and/or pharmacist. New Medications [facility] [address], [place] [id number], [phone] mupirocin topical (mupirocin 2% topical ointment) 1 [...] Diastolic Blood Pressur (more content not included)... [facility]ozia 04-14-2023 [facility] Telephone (GENBMI) SPIKE NIELSEN ([id number]) 1980 M Date Time Provider Department 04/14/23 FADI ROBERSON During your visit today, we recorded the following information about you: Fadi Roberson, FRANCIA 04/14/2023 5:14 PM Signed [facility] SPECIALTY CARE COORDINATION TELEPHONE ENCOUNTER Pt mother is helping him. [facility] with call back number Allergies As of [...] once daily. - famotidine/Ca carb/mag hydrox (ACID DISH NETWORK INSTALLER COMPLETE, FAMOT, ORAL) Take 1 tablet by mouth twice daily. - B Complex Vitamins capsule Take 1 capsule by mouth once daily. - od-jwp-azlwo acid-lutein (CENTRUM SILVER) 400-250 mcg chew Take [...] Encounter Status:Closed by FADI ROBERSON on 04/14/23 [facility] 01-28-2023 [facility] Telephone ([employer]) SPIKE NIELSEN ([id number]) 1980 M Date Time Provider Department 01/28/23 FADI ROBERSON [facility] During your visit today, we recorded [...] once daily. - famotidine/Ca carb/mag hydrox (ACID DISH NETWORK INSTALLER COMPLETE, FAMOT, ORAL) Take 1 tablet by mouth twice daily. - B Complex Vitamins capsule Take 1 capsule by mouth once daily. - jn-acz-bycpu acid-lutein (CENTRUM SILVER) 400-250 mcg chew Take [...] Encounter Status:Closed by FADI ROBERSON on 01/28/23 [facility] Coding Summaryon 01-26-2023 [facility]oding Summary [facility] ToqurtzfSBd2bOm+PGhlYWQ +RY1XMPGtY54pgIJxfP6bI3 NMTElOSywgQVBQTElOSyIgb sBhCB5vmSDcLXKt IC8+ON6nXLCeCgbkeBKxg3Q 1iGC8X41sly1cTDccgTT5GX OjTaTpfglse6mweTf9LAzoH mluOyBt CYPpfU42BMO6sL73Ve29bYY zwFDti1imcPb3CnDqYLWrUR X7aEzsRAqfg9ApHKUcO80ld TYsp0D8 XWSikTouaHOrZxFhyYL0qD3 xOUdzrbvmz5rlzwkpKzt1yi 67gRVwk8O6iZG5G4PezsR0G GJvbGQg VkgqoHQPhN7vopiqh3xqykr mJqIzDZLnDFe5LBd9VFCjgD ysBnVkLX65LYU4XIOuprHiR 2FsLWFs mWrvBpY9r8O3Va5MD1NADup qO0COYJJKXQqxmSF+PC90cj 09L0XjFbjmEtl6EGKsDFC4d DD7rI2e WNLjDKzhe1P7sEQ4Z3ZujyY pjy3sz3trNIWsIOgbP12zyT Nzf8B9QTYssSX9AFKgeAqiV iBzaG93 Oyc+JOFumHmis3KiUsrgx7d hh9fyfOw3SwcfTSFhksXwqN xkBCS2c0ItLm7lMWPvjXF9f NK3uT4w NgNrFfV0MRmnQ191HwMuxTD nImpzJ07xU9EwqFG+PHRyPj y9CLLbeWneWN1yM9WmZKKco mctbGVm aOfnXS3mREUutmnrFFNncA0 dQZFmW1n1JsPiRaC9IQhlD8 UqIOVvswbiBu81lZ6nGlLuS bV8QElh E4HwetG1MQOcxATjHPayCWS 2A67ix0U7MOWxUDVmCHR3vG O4vJ5pvGjubgchxBNqyMrch mVydGlj NGprXRwnI988VZNpeOugGjF vZGluZyBEYXRlOiAgMDgvMj MvMjAyMzwvdGQ+GJVxJCO0o WxlPSAn eJNfWIvfEv2chOfciRdnTT6 tOCOdtuybSDGxmE5gNJKtcG KlfMjuBU1yHWVtiieqv953Q iAxMHB0 YUUizNRzJ3LpiR3fUaNrLXT jCDVoG2NdoCSpKAiiB878XT gsBpS7BZHvlxZtD8KkTTFat WduOiB0 j1U4Ar1Ve3CuvdqsH7VsuIX aSgIqWcpdRKm7H7NxRzqyvW I+AF14KEWtJD36IWo8JLJ6q WxlPSdi CPClQ5DhaB8gYcZkDNHcOLL kOyc+PHRhYmxlIHdpZHRoPS yiIPPfCnRssFwiLK6rUh8aY GVyLWNv jKpoqTTcLtSpp5vqXDOpLGk pIL7xuQtoP9XzvZN7YGLvd4 z9Np51S25qF8DxgHF+PGNvb XF3pLA4 yG8cBhOgVgQ6YEmqL071CpS raPKtVrkyq8tck7pryTd8Bq A3AQGkbnCvvWfxYWT5g7LoG q83B69z IHdpZHRoPSIxNSUiIHZhbGl djv3yeS7kCj6+UMTewQB8vZ F5rC2qQeOvZcU1XUcsL436I nRvcCIv Mlqol4kmm8ucjKt6WmJaVVB tgsRtqMlvYTG1i4JkZa01E6 UrnKijm0EvMuo5xs92hPAan 6S4eQW5 Z2LgVYMxrsiroIFdbLnaXQ9 xSFKhejomACIklN0jYGTrO6 x8OhZlJgZ2SIrwU8BoqgF8J GJvbGQg YIUrfBCUyN0zwokty9rwmqn iGcEfCAEoKOu3HGl8UOVzeR bpSmNgWUL3UlB0VXO9zXZnv A8vgHvx soajcA5iRzo+OCV4qEMxoTH ZPI7hOwytiGJ+YAKjKMX1hF jlXEbjQKZzsO9wFPIgS5d3W iAwLjA1 ZRzzB2SkyrH4WTAuiOXnNQL hoPFVoT2aficoq6hostdgPb NaFYYeMDi8WSo9CLBjyLuaV iBsZWZ0 VyY3EMP1tPUgcS8tzTgyajt clY9tOoe+SdvnzDtfDQF1DB p0R5LqFif0ILZpmLadFM8qi GFkZGlu Kk4tlUoxfFdmIF8rEICtcsi nc687RmXdc5oqCIJsyHFxGZ izPFQ2L86lp7P2ESObMQWjC NU0xBD5 jB5izCaygohoqVOxwGfptoA wmZnpUZuhNDfjH978ACFgjU ifIjKuZRd1H6AvTft1WIVug KnbEI1b oTQqPQptZi1phVbyrNjbUY0 tPTHlxmxtu770QpUfz7iiYS IweINxUDhuXKE8Z55sn3L3E CMwMDAw ZTP8pWQ7nC7uhScjpfedoEO mdDsgdmVydGljYWwtYWxpZ2 64SCAztUxrQkTchDx9X1HfH an4XBAy mIweKE2ebUMxINosMo3dpXn cxQgbJJ2oFBKsuecuc956Zf Lnk5pwDYNgoOUrVVyaVDB7S 21qf2I1 TDYsVVLxOUI4zGC7lA9ahLk nbjogbGVmdDsgdmVydGljYW igJHzrN211ULGepQfqYhGni GllbnQg DGqjCQi0V6NtDbewzYZ+PC9 4VHZmIR73tUKzmEDxx1daxP i4OaWqPGRsCPD1hFsaAUwgf 3JkZXIt W42swBCle1Z5KNDojJuqoJA sInOkcUR5vR4rHGsrjxinw1 woqhthQbirx5qmmx35kZ99S 29sIHdp ZHRoPSIzMCUiIHZhbGlnbj0 dvK2iLl9+NVVxcSH3uBA7pE 8bHCMlOcA6NFalT610WoQec CIvPjxj h8oxb6ocoKb9NlP3VVJuwnF ewOxwZZL8o1YaPd44Z01dTK dpZHRoPSIyMCUiIHZhbGlnb c9mkC1d Ii8+HWNqxHG9zOU3uE5gFrC fOfO9UWuyR196RxVvkXSpZj ydX31yJ8MvnTL+UXItDqe1F CBzdHls NF7unWNyWVtoKl9rINE4OuX yUfAyMMfvF2EbXGBbppfnrs xphWG6OHYcUHXdiY29Km2ks DogMTBw iSMWxN8eksano8gjdfrvZcC aZYFfXDy7NGh1HHYcuZqbAj FiBOE3ZtM2EDJ1dZZymS1vl Glnbjog wH3mO3XbHMFhxijuIh15zX2 iYuReJtT7UDvlAcz+U0FNUy wgQUxFWEFOREVSIExFRTwvd GQ+PHRk MAQ7rEviAMoeVYPmcZ3mYLN iE0q1JwBlDbL2DXgbV9MySO KfgxgdQn75qO5mHaBxNmR7I MliR1Kc qtY9IBAwdBLyYFwmJPB2C32 xz6K9XLPlNFSiLZW5qPP4vL 1hbGlnbjogbGVmdDsgdmVyd GljYWwt IQvlB927GTZahEceLmSvQeF 4FeU1Fjt9Z3HoLir3ECAblJ jkVZ2khZApAQyjQu7pjMhbl MtxRC3t QZCobnxeTKVwpG1pFFApwIJ isVqnHW4aXMXdxopsq741Ck GvIJU7RMNucQFpM6JbcU6yY iAjMDAw DKXgJ7BeuQBbNNpfS352MPa wMsG2NTMlcgRxG7JuHSUyfU ffKfQ5t7Q9Na06JQCZYLZew zwvdGQ+ VBRsYHO0sHpwIVkeKPMoaY4 zGVZvU1p0UqKtXvZ1ACtiK4 SiGKXnzdkbFe56eR1gGzFzP tX4WEhg C0TfkfZ8GEWggYPbHGyyXFD 9W08ov7C2WUQkLNEwGTZ5rK Q9eD4ngZxyiaftvMMzeWndz mVydGlj RImiYWgqF373IMLjrJrmAn0 VEVD7A8TrKvd1UERijScxOJ 1flVBbVIgjAk5mdHjjaBksD A8rCMSk xbikJHMuzQ3nVYEzqLPdhCn tCB6wXTVoaxpjx506SbYuPO B2KFTiiNMmQ1GymL4uQhLmO DAwMDAw X3CygTEwVGyiN129QTrmVrC 7ULHuwzUkY9RaIUCrbFtpNh T1w9Z3Ud5FsFIyT0NjJ9o4T 3RkPjwv dHI+VR06LWTeBM39cTLbjLK de3smrUg1VeDnUAItRPB2dS gbYWxgi6MhDXCrP15wyTVhw 3K3LSGk rIlaePJuXiKdoMY2tQ9lMMn cidsbg1yqxwktFlkuk0sygb 29oN76P94kGRrmQQMwUOOrH CUiIHZh rGdjyu9goM5fIo8+PGNvbCB 9kQT4uY6wTwDrOmC4MTppN3 28ZxLxePPcTozav8izk8pht Gu6CsSb BUGxhbZlxDtrTIZ7r5LhVh7 0G16dLGtxLNKmVYKwTYAcGY XesJlhmy6siH9hGt9+PC9jb 9nntq58 sL44kJI+MJClPUO4kKwnRYz lNUCykP6pCQtwQgF5JKBvQr LfvT93jWTjNOauEt3scSfvx YjuDT8j TMAebvdsx893MgDjj0shLQG ikLLePThsRBF0L53be4M9AR TbOSFqGWU7rZS7mQ3dvRiqi jogbGVm pHooqlSmiPnxVLgrBArxX40 4UJLqzMxfTtJhvOLqN0vthk SMBD1kJyqajBU+EOAwTKJ2v WxlPSdw AWSveI3zJAMwC7p0JwHgRlQ 2XIwbR1NnzqK9SDWcwDMeFR JwcTKVdF0ebrest0cgzohlK zAwMDAw JMu0IWc8GDYkeBkpQzYzVVA 7DaZ3QLK2jRMkoL3jaKiazv skrU4cDfd+RklOOjwvdGQ+P HRkIHN0 tInwLLncAYCvzO4sDYThF5q 8OjGfCcR2KPlbN4WdfaJ1OO YwfXDzOMJugPPBdN0xmweha 2xvcjog UrItCPBvXSc1ZKo0SNZtfIv oCqCrKQK7CqR1NMN1mRZsyH 8ihOfmnewuxL3sKlo+TVJOO jwvdGQ+ JEUsEEJ9tFabVFwpVBMizP1 wMYSwI3v5IrYhPlD8DFdfJ4 JbmgP6JAUdxZRnCSGhqICCu N1dnbij c6wdnlpkUxRwDPDyMHa1JCc 0KEWcyQdvEbOaUFS1WjQ5ZT C6iENeqR6gkLjwtbitaU3hF yc+UGF5 PRS4DZ31NO06J1QyBxhncVJ ibGU+PHRhYmxlIHdpZHRoPS bqJFCpFdMqoAiyME3cIl3rP GVyLWNv bGx (more content not included)... 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 - famotidine/Ca carb/mag hydrox (ACID DISH NETWORK INSTALLER COMPLETE, FAMOT, ORAL) Take 1 tablet by mouth twice daily. - B Complex Vitamins capsule Take 1 capsule by mouth once daily. - ax-aok-ntzeh acid-lutein (CENTRUM SILVER) 400-250 mcg chew Take [...] Encounter Status:Closed by MINAL PUGA on 01/22/23 [facility] CNOVon 01-20-2023 CNOV Office Visit (GENSMN ) SPIKE NIELSEN ([id number]) 1980 M Date Time Provider Department 8/17/23 [...] No Wilman Zahraa 01/20/2023 9:13 AM Signed [facility] Abdominal [facility] - HISTORY AND PHYSICAL Chief Complaint: [...] mouth once daily. famotidine/Ca carb/mag hydrox (ACID DISH NETWORK INSTALLER COMPLETE, FAMOT, ORAL) Take 1 tablet by mouth twice daily. B Complex Vitamins capsule Take 1 capsule by mouth once daily. mr-bzw-mbmsi acid-lutein (CENTRUM SILVER) 400-250 mcg chew Take [...] not in (more content not included)... Normal [facility] Coding Summaryon 01-20-2023 Coding Summary HTMLBase 64 JeyzjmnxITt9eWk+PGhlYWQ +QX9KBXJrS51ezSXxzM8aR7 NMTElOSywgQVBQTElOSyIgb fHbAF6fwEFdJQAs IC8+ZM0cADTwZnnyyCCtb3V 3eNL6M63tte7qIUoooDM2BK KnIxVptgost9fkbEo2GHexN mluOyBt YPJynE51ZBF3uW41Zw07xPK gzFWsr4sgsVz1MzBvFCYtAR I5hFmbOMpgp8MsUFJyE96ma EJtk6W8 IPUusXosqMHxOrLbeZE4wG1 zAMspccmzx5ylrisnSyq4iy 25wXZbr8Q4eOZ7C9QkpfK3J GJvbGQg LycfgRCIrE7emgcwg5dyumi vAfGoZVUyBYa9LFh7RFSywI fkThKaBT01BFX4YWGcwiYoK 2FsLWFs jVdvPiJ4j8B2Kt6GD9EKItp nK3CCOEGEDLpmsJP+PC90cj 59L9FgMgmoVkf7CXPgBEQ3g TK5gR5t QZCnYRfkp9K5nTH9Z9AiknN xnw5rw9beWQFnXApkY62pjY Xqj8E1NXEuiRH7LFDzhCtrU iBzaG93 Oyc+JSLzbTiyt9YqSvkfo1c fz9dyfRx6CqqkKNDlwzIxiY mlWLR1h3LmIe4hPPXwaWA2d GX6pC6l RpOmJhW0JFcjB201DqQbtFZ bPxrsR52dJ6SixIU+PHRyPj l4ASUkaUltGX8mS8QxSFOzq mctbGVm lPuhMF8eNDJfbhjlTQQypG1 pJHBhM1w9AeGcFkL1FPpjE7 VyYWZgwxydZc01yR5fPjAdD fM5EAav Y6JqktF2KLEiqMOhLAsbVIX 2S30yk1A6TPMwRXPwIYB6bS F2bU2ejZwznrduvLPykGvqc mVydGlj NKoiMFnrV707RNNfkXpjZsO vZGluZyBEYXRlOiAgMDgvMT cvMjAyMzwvdGQ+KLUzIJU0u WxlPSAn dUEwGHfoGj8ijBwaiCvbEJ2 vIJAedmqbPDQnfU4fJHMyeS NjyFdeSP4rJEHbnypfe945A iAxMHB0 ZOGlxPJpX4NzcD1gQyKpLWJ zKIUgN2FmoAIqLOytS555QA icGvQ4GWSqggWyP3LeHLHlb WduOiB0 a7T7St7Cy8VgrevxL8KiqFV eRdLwUyxdZHu7L1QpCwdmzN I+DQ90ZJRnGI57ITm0JHE8c WxlPSdi CMAeR4ClwJ8kBbQiEYWaHCN kOyc+PHRhYmxlIHdpZHRoPS ypMZRjReAbtCbrZW3qEk1xB GVyLWNv dDwmsTYjHzWft4qaWQWkEIa gFX7afIdyD6FzmZQ1LZQtp1 l4Sf75Z51dB4QwwAK+PGNvb UK6sNC1 yU8tFmNrWjU1DExlD933WcL fsZNvZgzsj3zni8vhpTp2Uh F0TOLisiYgoXzhEEX5s0GeH w03C88r IHdpZHRoPSIxNSUiIHZhbGl anp4drI0aQp2+MRAtrVS3gB B4uW6bRhKwFyO5TWfnK655F nRvcCIv Obfzw7afd0lirCa8AgMqFIE qdjUjtQypWNI3w5ZuZe38N4 ZnrJjvq9XcFih9ut77gLGjd 8B1yBC0 I6WvSDEgmznlgCUfrUumMQ1 bZAShiweaSNRpzR7aVXWeY6 z8ZoXkDcD7VLpqC6RohcG6U GJvbGQg WMFmfJTLrA0tztmgs2jxdtb mAnCmYNXhHLr8ZVk3XZRwpQ xxXfJfMVU1XvQ8GEK7uASne D4qwZix vbphtM1pNfg+NOU3nSGndSE GIW8dTvzdxAR+ETFoYDB2hB iqCGnaXYWssP2eWRGuW7t2D iAwLjA1 XFgdM5VsxqH2DDEfnZFpRID xbEXNiN7lzoejs6oknsatYa RyXWWsWUg0JUa0UNXmpDmyU iBsZWZ0 VqF2BAK5oPHswI7vvJcwomh ghN2iWou+UfmkoJzsGGF2OF i9W0PbDbj7OLZthUoxOR9jh GFkZGlu Nc1pkLascDsnNJ7pHSWprvo pa980UcNuf0mhENIqjNLrLQ mnOMA9O81zp1S3CODaYKYnN OD0rYL3 tS2mwKuqycdvjWXtlUibdeF ocUwkSUalXEeiW648JMSgzG beJkBzMCq2X4NsWrd1IWGde HewZI5j uIUdKOobIq7wpXaomBfiTR0 mOBJlbjbro024GyTpd7pxEW XrgAAuQKwwZIN0A10jf6I7A CMwMDAw BSG2eGW0dY5fnOycegkheJB mdDsgdmVydGljYWwtYWxpZ2 53UPSbtKjyKtQkeFo2P9HkT tj6XFFu yMmwTK0oiIXuSUmbFe8piMr jsWcuJW2aRRSoetehy842Bv Edx1pzBFTzcSGxNNrfGUG6C 56nr5F6 KPLgQCVhJDG7wWV0oH6ydRz nbjogbGVmdDsgdmVydGljYW rqIRbiQ218DSSivTadKbNqo GllbnQg POzrCDc6E7JnZdnheTK+PC9 3KVGnYX91dZSkoWRij3cgiY c1OyOsYGKlAWY0iZshQQdoj 3JkZXIt K55haZZyj1T5PHTcxYnfpFH yFcXgpGW9eK9mZBzrfwows2 haxwabMwdul3tlvv28xH07F 29sIHdp ZHRoPSIzMCUiIHZhbGlnbj0 ssD0oOr7+NTDhoXR1xQL3vG 3yJXCkRqS0JGwkQ424ZuIps CIvPjxj p1udi8ryeVd4YcC2KEZsydA mpKyyZEF2e4ShBn91R45xWG dpZHRoPSIyMCUiIHZhbGlnb g4pbT0t Ii8+IKSslYD3jVZ1oR6oJvP zCtR0KTabO257FvOzmEMvJi kcK02nE4RwlOR+JBMbGud0W CBzdHls BT1kqJPnJSetDd4eGMP0IwX sAiTgLLctJ9AxFUXtubmafi tbeRF3FMMbDIRogP93Ti9re DogMTBw wVPSrY5rkusse0pnjbrxEeB cEQSbWYl6ESs6FNNoiYxbNt WlBGY7BtI1RQE8aJKrbD6qi Glnbjog cW0yJ2VmNVXkyckkHw66pY1 pSuQyYkA8OGfaKjz+U0FNUy wgQUxFWEFOREVSIExFRTwvd GQ+PHRk TBE9xJduGKjqIEUbxX2dYOD rW6l4WvJhTlW6TQewE0FsDS MtqsrsBx24kY7wCcAxUgV7Z PekK9Is enZ8JRRycIHrNFupJLT0P34 rz7V8FETqIRQiKIS6yUT4hQ 1hbGlnbjogbGVmdDsgdmVyd GljYWwt XKjiB769ENNwqDdvXaNtPoB 8HxY2Sdz2H5GjVvj3XETeaJ htYY8bmUMmSLipCm5tlDhmq AebPJ4d BAAckxjgXJWddD0vRKBhfJJ qmGcoBP0pDKVkajkmd611Zf VkFYP1BYCqpUHpC0PslJ6gF iAjMDAw KFEiJ9RpuXUiSSbgO151ONg hImL9ELLivrFfY5TuVABvkH oeZuO0l3Z4Gr10GLVEFCUjw zwvdGQ+ GNMuNET5jBfsFZabAEXpfV9 tGGGyY0r2YyIdBmP0NIheV4 MtFLVpqrgjSi71tZ1mNtDpA sU7PAwj V3WncmI1GOKbrCIxPHjpOJK 3V90qy0T2PQFkLNMvTVW2oP I3hU3ufFstfayxyMQapHvse mVydGlj HJanLQiaL084RDHlgYkvGr0 NGZT7R0IfMhy0HTBbiQhbEP 8fxCXdLLmwGk5bnYzasXtlK K4tHPKw zorgOYPvqD3uZGKbzJJvvVi cZZ5bJXVknyqhq246OvTeTY P5OAFmhVDcX7QisL9iZmLqL DAwMDAw X4XmtHVcGDevK151QCyxDtU 8HWUhduIbC4CjEIQdpSstQb R1q0X6Ql6NVZumxSM+PC90c f53B2Bd HmjmXeu3PNPpYEB5lMC8tL4 oWQIvAJxub3D1mKA1K5Vxrr Ytlo7zs9irBQCiHLcsA94iw MTyx3B9 NSLfzND9GEBykYbdIqVhxB8 3Oyc+NBGvzGbum4DrBzdyx4 fqf2iufAn8RkHjZMRyosQys WduPSJ0 n5LdUw65L46uMNakKGZoYQJ wEBLuQJZerImbpx5hnL3iYm 8+WKBdmOV6cZS2qA8jWcSdM zT5WTzz K271TqDhuEOcBxzyp8sov7a hnTw3PsLvKUDtxpFneRtrQD O1k4YaLu41H9KxbEtmh7ZlD wa1xb71 hRNaq7W1zPN8D6MzVWYoqcf euDFnsBvgTL5rLNNdkyfsJO RemS4xOSJfQ8i1OsMtGxB1Y NuzS3Ny ydQ9UBBjzWLkZZBieZWUkJ1 bpfqkw5nkjfpuLxYmTXSrRL p7YMt9SOMydLqdWoRzMXT5O qJ3EJF3 rMTidI4yrOqbwlmccB5nAje +BOb1e3uhkRJpML6vvFX7VL 79DG22rYCec3B5wYO3Y6EgQ GRpbmct jhrtqTQ4ENIdQNMjrV24Ee3 drGsoKq1qSMCyOJO8BMYuxB PgJ1MoxU6tTxJwRUVmXTWzN 3RleHQt AMyyO862LDdySvW9FYExejK uF4SwUNBjjPjlYmY2j1F1Ev 6NGA68BL65PD88qSWzy5V5m EL5Y8Es GWWpsyrelulatQF0PLEwDWI qqR19Pd1ojItkKm2qVIYqJI H5IPFqhCDmT4MubE0rCuGeB DAwMDAw F6NwhGMrQBgaK533RPoiLxL 6XGYisjIrH1NvUKZysQybFn H5h7D4Py9URw77AI18MS03p UHgr2W2 kZJ0N8DpJXEbpanjiybtjUW 8ANDuRTVvmD06Vk4ueMyzQx 1eKELmIIY5KVCnySSbN7Dsa A2cSlBe JHRsHUTfR7JlaWEmYDdiY25 8MPsiXiO9XINanbIgO1HaZY YwlCmbHtD3p1J1Mt8SJRhrr bf1I0Ji PjwvdHI+CF80KLTsIT75mZN dqKFyy3zhkVr5TzMnKVNcTG M4vStcNCpba1AlZSKcA21do KIln8G7 IGN (more content not included)... Normal [facility] CT Abdomen/Pelvis w/o Contra ston 01-19-2023 CT [...] MD 01/19/23 11:35 a Technologist: Aman ZAVALA [facility] ED Clinical Summaryon 2022 ED Clinical Summary [facility] - Emergency Department [address] [place], [place] [id number] ED Clinical Summary PERSON INFORMATION Name: SPIKE NIELSEN Age: 42 Years Sex: MALE : 1980 MRN: Acct#: Visit Reason: Ear pain; Chills; Hernia; CHILLS, BODY ACHES, L EAR PAIN, PAIN WHEN BREATHING Arrival: 01/15/2023 06:31:06 Discharge: 01/15/2023 07:45:00 LOS: 000 01:14 Check In: 01/15/2023 06:31:06 Checkout:01/15/2023 07:45:00 Address: [address] [place] [id number] PCP: Provider, None PROVIDER INFORMATION Provider Role [...] a previous hernia repair by surgeon in [place]. Stated that he has appointment to follow-up [...] 1-2 times per year Other Comment: POB: [place] - 02/26/2019 15:28 - Carmen Jama Substance [...] user 0 (more content not included)... Normal [facility] ED Note - Physicianon 2022 ED Note [...] a previous hernia repair by surgeon in [place]. Stated that he has appointment to follow-up [...] 1-2 times per year Other Comment: POB: [place] - 02/26/2019 15:28 - Carmen Jama Substance [...] abdomen, gr (more content not included)... Normal [facility] ED Note-Nursingon 01-15-2023 ED Note-Nursing AAOx3. SANTOS. Skin warm,dry, pink. REspirations regular, even. C/O ABD pain over his ABD hernia that is ongoing and is 10/10, but states he3 has had a fever and body aches. Has left lower leg redness. PMS intact. Breath sounds CTA bilat. Mom at cart side, interacts well with pt. Normal [facility] ED Patient Summaryon 023 ED Patient Summary [facility] - Emergency Department [address] [place] [address] PATIENT DISCHARGE INSTRUCTIONS Patient Information Name: SPIKE NIELSEN Age: 42 Years Date of : 1980 Reason For Visit: Ear pain; Chills; Hernia; CHILLS, BODY ACHES, L EAR PAIN, PAIN WHEN BREATHING Arrival Time: 01/15/2023 06:31:06 Primary Care Physician: Provider, None Attending Physician: Kareem Sanchez MD Comment: Visit Diagnosis: Diagnoses This Visit Cellulitis (L03.90) Cellulitis of left anterior lower leg (L03.116) Chills ([id number]) Ear pain ([id number]) Elevated blood pressure reading (R03.0) Hernia ([id number]) The Pharmacy at [facility] is open Tuesday through Tuesday from 9A [...] alcohol and/or drug addiction problems; contact the [facility] 27/12 Crisis Hotline -Text [phone] ja [phone]. If you received any narcotics, sedation, or [...] legal documents With: Address: When: John Olmstead [address] [place] [address] Business (1) Within 5 to 7 days Comments: Contact your assigned on-call doctor for a follow-up appointment if you do not have a local family doctor or PCP. Alternatively, you may also follow-up in the Urgent Care at [facility] if you are not able to get [...] received today in the [facility] Emergency Department were for an urgent problem and are not intended as complete care. It is important for you to follow up with a doctor, nurse practitioner, or physician?s mailing machine assistant for ongoing care. If your symptoms [...] so we can reach you if necessary. [facility] Emergency Department has provided you with a complete list of medications post discharge. Please inform your filter tip catcher/provider of your visit and for further instruction on these medications. Any specific questions regarding your chronic medications and dosages should be discussed with your primary care physician(s) and/or pharmacist. New Medications [facility] [address], [place] [id number], [phone] cephalexin (cephalexin 500 mg oral capsule) 2 [...] day. hy (more content not included)... Normal [facility] Provider Orderson 01-07-2023 Provider Orders [id number] GTIFF Normal [facility] CT ABD WOon 06-23-2020 CT ABD WO [...] caval space similar to prior exam. Normal [facility] CBC w/Auto Differentialon Anemia OCCUPATIONAL THERAPY INSTRUCTOR Normal [facility] Comment on above: Performed By: #### C BC #### [facility] [address] [place] [address] Anisocytosis Ql (Bld) OCCUPATIONAL THERAPY INSTRUCTOR Normal [facility] Comment on above: Performed By: #### C BC #### [facility] [address] [place] [address] Basophils Abs. # 0.0 K/uL Normal 0.0-0.1 [facility] Comment on above: Performed By: #### C BC #### [facility] [address] [place] [address] Basophils/100 WBC (Bld) 0.3 % Normal 0.2-1.0 [facility] Comment on above: Performed By: #### C BC #### [facility] [place] [address] [place] [address] Basophils/100 WBC (Bld) OCCUPATIONAL THERAPY INSTRUCTOR Normal [facility] Comment on above: Performed By: #### C BC #### [facility] [place] [address] [place] [address] Bosophillia # OCCUPATIONAL THERAPY INSTRUCTOR Normal [facility] Comment on above: Performed By: #### C BC #### [facility] [place] [address] [place] [address] Eosinophils (Bld) [#/Vol] 0.0 10*3/uL Normal 0.0-0.2 [facility] Comment on above: Performed By: #### C BC #### [facility] [place] [address] [place] [address] Eosinophils (Bld) [#/Vol] OCCUPATIONAL THERAPY INSTRUCTOR Normal [facility] Comment on above: Performed By: #### C BC #### [facility] [place] [address] [place] [address] Eosinophils/100 WBC (Bld) 0.2 % Low 0.9-2.9 [facility] Comment on above: Performed By: #### C BC #### [facility] [place] [address] [place] [address] Eosinophils/100 WBC (Bld) OCCUPATIONAL THERAPY INSTRUCTOR Normal [facility] Comment on above: Performed By: #### C BC #### [facility] [place] [address] [place] [address] Erythocytosis OCCUPATIONAL THERAPY INSTRUCTOR Normal [facility] Comment on above: Performed By: #### C BC #### [facility] [place] [address] [place] [address] Erythrocyte distribution width (RBC) [Ratio] 13.5 % Normal 11.5-14.5 [facility] Comment on above: Performed By: #### C BC #### [facility] [place] [address] [place] [address] Hematocrit (Bld) [Volume fraction] 41.8 % Normal 36.7-50.6 [facility] Comment on above: Performed By: #### C BC #### [facility] [place] [address] [place] [address] Hemoglobin (Bld) [Mass/Vol] 14.0 g/dL Normal 12.4-17.3 [facility] Comment on above: Performed By: #### C BC #### [facility] [address] [place] [address] Hypochromia OCCUPATIONAL THERAPY INSTRUCTOR Normal [facility] Comment on above: Performed By: #### C BC #### [facility] [address] [place] [address] Large Platelets OCCUPATIONAL THERAPY INSTRUCTOR Normal [facility] Comment on above: Performed By: #### C BC #### [facility] [address] [place] [address] Leukocytosis OCCUPATIONAL THERAPY INSTRUCTOR Normal [facility] Comment on above: Performed By: #### C BC #### [facility] [address] [place] [address] Leukopenia OCCUPATIONAL THERAPY INSTRUCTOR Normal [facility] Comment on above: Performed By: #### C BC #### [facility] [address] [place] [address] Lymphocytes (Bld) [#/Vol] 1.0 10*3/uL Low 1.3-2.9 [facility] Comment on above: Performed By: #### C BC #### [facility] [address] [place] [address] Lymphocytes (Bld) [#/Vol] OCCUPATIONAL THERAPY INSTRUCTOR Normal [facility] Comment on above: Performed By: #### C BC #### [facility] [place] [address] [place] [address] Lymphocytes/100 WBC (Bld) OCCUPATIONAL THERAPY INSTRUCTOR Normal [facility] Comment on above: Performed By: #### C BC #### [facility] [place] [address] [place] [address] Lymphocytes/100 WBC (Bld) 26.9 % Normal 17.0-45.5 [facility] Comment on above: Performed By: #### C BC #### [facility] [address] [place] [address] Lymphocytosis # OCCUPATIONAL THERAPY INSTRUCTOR Normal [facility] Comment on above: Performed By: #### C BC #### [facility] [address] [place] [address] Lymphocytosis % OCCUPATIONAL THERAPY INSTRUCTOR Normal [facility] Comment on above: Performed By: #### C BC #### [facility] [address] [place] [address] Macrocytosis OCCUPATIONAL THERAPY INSTRUCTOR Normal [facility] Comment on above: Performed By: #### C BC #### [facility] [address] [place] [address] MCH (RBC) [Entitic mass] 29.2 pg Normal 27.0-31.0 [facility] Comment on above: Performed By: #### C BC #### [facility] [address] [place] [address] MCHC (RBC) [Mass/Vol] 33.5 g/dL Normal 33.0-37.0 [facility] Comment on above: Performed By: #### C BC #### [facility] [place] [address] [place] [address] MCV (RBC) [Entitic vol] 87.0 fL Normal 80.0-94.0 [facility] Comment on above: Performed By: #### C BC #### [facility] [place] [address] [place] [address] Microcytosis OCCUPATIONAL THERAPY INSTRUCTOR Normal [facility] Comment on above: Performed By: #### C BC #### [facility] [place] [address] [place] [address] Monocytes (Bld) [#/Vol] 0.3 10*3/uL Normal 0.3-0.8 [facility] Comment on above: Performed By: #### C BC #### [facility] [place] [address] [place] [address] Monocytes/100 WBC (Bld) 7.1 % Normal 5.5-11.7 [facility] Comment on above: Performed By: #### C BC #### [facility] [place] [address] [place] [address] Monocytosis % OCCUPATIONAL THERAPY INSTRUCTOR Normal [facility] Comment on above: Performed By: #### C BC #### [facility] [place] [address] [place] [address] Neutropenia # OCCUPATIONAL THERAPY INSTRUCTOR Normal [facility] Comment on above: Performed By: #### C BC #### [facility] [place] [address] [place] [address] Neutropenia % OCCUPATIONAL THERAPY INSTRUCTOR Normal [facility] Comment on above: Performed By: #### C BC #### [facility] [place] [address] [place] [address] Neutrophils (Bld) [#/Vol] OCCUPATIONAL THERAPY INSTRUCTOR Normal [facility] Comment on above: Performed By: #### C BC #### [facility] [place] [address] [place] [address] Neutrophils Abs. # 2.4 K/uL Normal 2.2-4.8 [facility] Comment on above: Performed By: #### C BC #### [facility] [place] [address] [place] [address] Neutrophils/100 WBC (Bld) OCCUPATIONAL THERAPY INSTRUCTOR Normal [facility] Comment on above: Performed By: #### C BC #### [facility] [place] [address] [place] [address] Neutrophils/100 WBC (Bld) 65.5 % High 43.0-65.0 [facility] Comment on above: Performed By: #### C BC #### [facility] [place] [address] [place] [address] Nucleated RBC (Bld) [#/Vol] 0.0 10*3/uL Normal [facility] Comment on above: Performed By: #### C BC #### [facility] [address] [place] [address] Nucleated RBC/100 WBC (Bld) [Ratio] 0.0 % [facility] Comment on above: Performed By: #### C BC #### [facility] [place] [address] [place] [address] Pancytopenia OCCUPATIONAL THERAPY INSTRUCTOR Normal [facility] Comment on above: Performed By: #### C BC #### [facility] [place] [address] [place] [address] Platelet mean volume (Bld) [Entitic vol] 10.7 fL High 7.4-10.4 [facility] Comment on above: Performed By: #### C BC #### [facility] [place] [address] [place] [address] Platelets (Bld) [#/Vol] 91 10*3/uL Low 148-402 [facility] Comment on above: Performed By: #### C BC #### [facility] [place] [address] [place] [address] Poikilocytosis OCCUPATIONAL THERAPY INSTRUCTOR Normal [facility] Comment on above: Performed By: #### C BC #### [facility] [place] [address] [place] [address] RBC (Bld) [#/Vol] 4.80 10*6/uL Normal 4.13-5.69 [facility] Comment on above: Performed By: #### C BC #### [facility] [place] [address] [place] [address] Small Platelets OCCUPATIONAL THERAPY INSTRUCTOR Normal [facility] Comment on above: Performed By: #### C BC #### [facility] [place] [address] [place] [address] Thrombocytopenia OCCUPATIONAL THERAPY INSTRUCTOR Normal [facility] Comment on above: Performed By: #### C BC #### [facility] [place] [address] [place] [address] Thrombocytopenia. OCCUPATIONAL THERAPY INSTRUCTOR Normal [facility] Comment on above: Performed By: #### C BC #### [facility] [place] [address] [place] [address] Thrombocytosis OCCUPATIONAL THERAPY INSTRUCTOR Normal [facility] Comment on above: Performed By: #### C BC #### [facility] [place] [address] [place] [address] WBC (Bld) [#/Vol] 3.7 10*3/uL Normal 3.6-10.8 [facility] Comment on above: Performed By: #### C BC #### [facility] [place] [address] [place] [address] Comprehensive Metabolic Pane patel 04-21-2020 Albumin [Mass/Vol] 3.7 g/dL Normal 3.4-5.0 [facility] Comment on above: Performed By: #### C MP #### [facility] [place] [address] [place] [address] Albumin/Globulin [Mass ratio] 1.4 {ratio} Normal 1.1-2.5 [facility] Comment on above: Performed By: #### C MP #### [facility] [place] [address] [place] [address] ALP [Catalytic activity/Vol] 70 U/L Normal 54-112 [facility] Comment on above: Performed By: #### C MP #### [facility] [place] [address] [place] [address] ALT [Catalytic activity/Vol] 94 U/L High 13-66 [facility] Comment on above: Performed By: #### C MP #### [facility] [place] [address] [place] [address] Anion gap [Moles/Vol] 9.1 mmol/L Normal 8.0-16.0 [facility] Comment on above: Performed By: #### C MP #### [facility] [place] [address] [place] [address] AST [Catalytic activity/Vol] 33 U/L Normal 3-39 [facility] Comment on above: Performed By: #### C MP #### [facility] [place] [address] [place] [address] Bilirubin Ql (U) 0.37 mg/dL Normal 0.00-0.99 [facility] Comment on above: Performed By: #### C MP #### [facility] [place] [address] [place] [address] Calcium [Mass/Vol] 8.8 mg/dL Normal 8.2-10.0 [facility] Comment on above: Performed By: #### C MP #### [facility] [address] [place] [address] Chloride [Moles/Vol] 109 mmol/L Normal 94-[address] [facility] Comment on above: Performed By: #### C MP #### [facility] [address] [place] [address] CO2 [Moles/Vol] 31 mmol/L Normal 21-34 [facility] Comment on above: Performed By: #### C MP #### [facility] [address] [place] [address] Creatinine [Mass/Vol] 0.71 mg/dL Normal 0.50-1.17 [facility] Comment on above: Performed By: #### C MP #### [facility] [address] [place] [address] GFR/1.73 sq M predicted among blacks MDRD (S/P/Bld) [Vol rate/Area] mL/min/{1.73_m2} Normal >60 [facility] Comment on above: Result Comment: Academic Adviser eliana Kidney Disease less than 60 mL/min/1.73 m2 Kidney Failure less than 15 mL/min/1.73 m2 Average estimated GFR by age: 40-49 years 99 mL/min/1.73 m2 Performed By: #### C MP #### [facility] [address] [place] [address] GFR/1.73 sq M predicted among non-blacks MDRD (S/P/Bld) [Vol rate/Area] mL/min/{1.73_m2} Normal >60 [facility] Comment on above: Performed By: #### C MP #### [facility] [place] [address] [place] [address] Globulin (S) [Mass/Vol] 2.6 g/dL Normal 1.5-4.5 [facility] Comment on above: Result Comment: CO RRECTED REPORT: Previous result was 2.7 at 13:04 on 04/21/20 Performed By: #### C MP #### [facility] [address] [place] [address] Glucose [Mass/Vol] 112 mg/dL High 65-100 [facility] Comment on above: Performed By: #### C MP #### [facility] [address] [place] [address] Potassium [Moles/Vol] 4.1 mmol/L Normal 3.3-5.1 [facility] Comment on above: Performed By: #### C MP #### [facility] [address] [place] [address] Protein [Mass/Vol] 6.3 g/dL Normal 6.1-8.2 [facility] Comment on above: Performed By: #### C MP #### [facility] [place] [address] [place] [address] Sodium [Moles/Vol] 145 mmol/L Normal 132-145 [facility] Comment on above: Performed By: #### C MP #### [facility] [place] [address] [place] [address] Urea nitrogen [Mass/Vol] 19.2 mg/dL Normal 3.2-26.9 [facility] Comment on above: Performed By: #### C MP #### [facility] [address] [place] [address] Urea nitrogen/Creatinine [Mass ratio] 27 mg/mg High 6-20 [facility] Comment on above: Performed By: #### C MP #### [facility] [address] [place] [address] Hemoglobin A1con 04-21-2020 HbA1c (Bld) [Mass fraction] 5.6 % Normal 4.8-5.6 [facility] Comment on above: Result Comment: Pred iabetes: 5.7 - 6.4 Diabetes: >6.4 Glycemic control for adults with diabetes: <7.0 Performed at: [facility] [id number] Fire Control System Installer: Romulo Peng PhD, Phone: [phone] Performed By: #### H A1C #### [facility] [address] [place] [address] Lipid Panelon 04-21-2020 Cholesterol [Mass/Vol] 121 mg/dL Normal 0-200 [facility] Comment on above: Performed By: #### L IPID #### [facility] [address] [place] [address] Cholesterol in HDL [Mass/Vol] 37 mg/dL Low 39-96 [facility] Comment on above: Performed By: #### L IPID #### [facility] [address] [place] [address] Cholesterol in LDL [Mass/Vol] 55 mg/dL Normal 0-99 [facility] Comment on above: Performed By: #### L IPID #### [facility] [address] [place] [address] Cholesterol in LDL/Cholesterol in HDL [Mass ratio] 1.5 mg/dL Normal 0.0-3.6 [facility] Comment on above: Performed By: #### L IPID #### [facility] [address] [place] [address] Cholesterol in VLDL [Mass/Vol] 29 mg/dL Normal 5-40 [facility] Comment on above: Performed By: #### L IPID #### [facility] [address] [place] [address] Cholesterol.total/Ch olesterol in HDL [Mass ratio] 3.3 {ratio} Normal 0.0-5.0 [facility] Comment on above: Performed By: #### L IPID #### [facility] [address] [place] [address] Triglyceride [Mass/Vol] 146 mg/dL Normal 0-149 [facility] Comment on above: Result Comment: 150- 199 Borderline High 200-499 High >499 Very High Performed By: #### L IPID #### [facility] [address] [place] [address] Thyroid Belt Profileon Thyroid Belt Comment: see below Normal [facility] Comment on above: Result Comment: Star ting December 16, the Thyroid Belt has been changed. Please consult the back of our lab requisition. Performed By: #### C BC #### [facility] [address] [place] [address] TSH, 3rd Generation 1.740 uIU/L Normal 0.358-3.740 [facility] Comment on above: Result Comment: NOTE -Dietary supplements containing high biotin levels may cause significant interference with affected lab tests, including cardiovascular diagnostic tests and hormone tests that use biotin technology. Incorrect test results may be generated if there is biotin in the patients specimen. Performed By: #### C BC #### [facility] [address] [place] [address] ALT (SGPT)on 12-03-2019 ALT [Catalytic activity/Vol] 93 U/L High 13-66 [facility] Comment on above: Performed By: #### A LT #### [facility] [address] [place] [address] AST (SGOT)on 12-03-2019 AST [Catalytic activity/Vol] 39 U/L Normal 3-39 [facility] Comment on above: Performed By: #### A ST #### [facility] [address] [place] [address] BILATERAL ANKLE MIN 3 VIEWSo n 12-03-2019 [...] MRI of the most affected ankle. Normal [facility] Basic Metabolic Panelon 11-05 Anion gap [Moles/Vol] 12.1 mmol/L Normal 8.0-16.0 [facility] Comment on above: Performed By: #### B MP #### [facility] [address] [place] [address] Calcium [Mass/Vol] 9.0 mg/dL Normal 8.2-10.0 [facility] Comment on above: Performed By: #### B MP #### [facility] [address] [place] [address] Chloride [Moles/Vol] 107 mmol/L Normal 94-[address] [facility] Comment on above: Performed By: #### B MP #### [facility] [address] [place] [address] CO2 [Moles/Vol] 27 mmol/L Normal 21-34 [facility] Comment on above: Performed By: #### B MP #### [facility] [address] [place] [address] Creatinine [Mass/Vol] 0.93 mg/dL Normal 0.50-1.17 [facility] Comment on above: Performed By: #### B MP #### [facility] [address] [place] [address] GFR/1.73 sq M predicted among blacks MDRD (S/P/Bld) [Vol rate/Area] mL/min/{1.73_m2} Normal >60 [facility] Comment on above: Result Comment: Academic Adviser eliana Kidney Disease less than 60 mL/min/1.73 m2 Kidney Failure less than 15 mL/min/1.73 m2 Average estimated GFR by age: 40-49 years 99 mL/min/1.73 m2 Performed By: #### B MP #### [facility] [address] [place] [address] GFR/1.73 sq M predicted among non-blacks MDRD (S/P/Bld) [Vol rate/Area] mL/min/{1.73_m2} Normal >60 [facility] Comment on above: Performed By: #### B MP #### [facility] [address] [place] [address] Glucose [Mass/Vol] 95 mg/dL Normal 65-100 [facility] Comment on above: Performed By: #### B MP #### [facility] [address] [place] [address] Potassium [Moles/Vol] 4.1 mmol/L Normal 3.3-5.1 [facility] Comment on above: Performed By: #### B MP #### [facility] [address] [place] [address] Sodium [Moles/Vol] 142 mmol/L Normal 132-145 [facility] Comment on above: Performed By: #### B MP #### [facility] [address] [place] [address] Urea nitrogen [Mass/Vol] 16.6 mg/dL Normal 3.2-26.9 [facility] Comment on above: Performed By: #### B MP #### [facility] [address] [place] [address] Urea nitrogen/Creatinine [Mass ratio] 18 mg/mg Normal 6-20 [facility] Comment on above: Performed By: #### B MP #### [facility] [address] [place] [address] CBC w/Auto Differentialon Anemia OCCUPATIONAL THERAPY INSTRUCTOR Normal [facility] Comment on above: Performed By: #### C BC #### [facility] [address] [place] [address] Anisocytosis Ql (Bld) OCCUPATIONAL THERAPY INSTRUCTOR Normal [facility] Comment on above: Performed By: #### C BC #### [facility] [address] [place] [address] Basophils Abs. # 0.0 K/uL Normal 0.0-0.1 [facility] Comment on above: Performed By: #### C BC #### [facility] [address] [place] [address] Basophils/100 WBC (Bld) 0.3 % Normal 0.2-1.0 [facility] Comment on above: Performed By: #### C BC #### [facility] [address] [place] [address] Basophils/100 WBC (Bld) OCCUPATIONAL THERAPY INSTRUCTOR Normal [facility] Comment on above: Performed By: #### C BC #### [facility] [place] [address] [place] [address] Bosophillia # OCCUPATIONAL THERAPY INSTRUCTOR Normal [facility] Comment on above: Performed By: #### C BC #### [facility] [place] [address] [place] [address] Eosinophils (Bld) [#/Vol] OCCUPATIONAL THERAPY INSTRUCTOR Normal [facility] Comment on above: Performed By: #### C BC #### [facility] [place] [address] [place] [address] Eosinophils (Bld) [#/Vol] 0.0 10*3/uL Normal 0.0-0.2 [facility] Comment on above: Performed By: #### C BC #### [facility] [place] [address] [place] [address] Eosinophils/100 WBC (Bld) OCCUPATIONAL THERAPY INSTRUCTOR Normal [facility] Comment on above: Performed By: #### C BC #### [facility] [address] [place] [address] Eosinophils/100 WBC (Bld) 0.2 % Low 0.9-2.9 [facility] Comment on above: Performed By: #### C BC #### [facility] [place] [address] [place] [address] Erythocytosis OCCUPATIONAL THERAPY INSTRUCTOR Normal [facility] Comment on above: Performed By: #### C BC #### [facility] [place] [address] [place] [address] Erythrocyte distribution width (RBC) [Ratio] 13.4 % Normal 11.5-14.5 [facility] Comment on above: Performed By: #### C BC #### [facility] [place] [address] [place] [address] Hematocrit (Bld) [Volume fraction] 45.8 % Normal 36.7-50.6 [facility] Comment on above: Performed By: #### C BC #### [facility] [place] [address] [place] [address] Hemoglobin (Bld) [Mass/Vol] 15.6 g/dL Normal 12.4-17.3 [facility] Comment on above: Performed By: #### C BC #### [facility] [place] [address] [place] [address] Hypochromia OCCUPATIONAL THERAPY INSTRUCTOR Normal [facility] Comment on above: Performed By: #### C BC #### [facility] [place] [address] [place] [address] Large Platelets OCCUPATIONAL THERAPY INSTRUCTOR Normal [facility] Comment on above: Performed By: #### C BC #### [facility] [place] [address] [place] [address] Leukocytosis OCCUPATIONAL THERAPY INSTRUCTOR Normal [facility] Comment on above: Performed By: #### C BC #### [facility] [place] [address] [place] [address] Leukopenia OCCUPATIONAL THERAPY INSTRUCTOR Normal [facility] Comment on above: Performed By: #### C BC #### [facility] [place] [address] [place] [address] Lymphocytes (Bld) [#/Vol] OCCUPATIONAL THERAPY INSTRUCTOR Normal [facility] Comment on above: Performed By: #### C BC #### [facility] [place] [address] [place] [address] Lymphocytes (Bld) [#/Vol] 1.7 10*3/uL Normal 1.3-2.9 [facility] Comment on above: Performed By: #### C BC #### [facility] [place] [address] [place] [address] Lymphocytes/100 WBC (Bld) 33.3 % Normal 17.0-45.5 [facility] Comment on above: Performed By: #### C BC #### [facility] [place] [address] [place] [address] Lymphocytes/100 WBC (Bld) OCCUPATIONAL THERAPY INSTRUCTOR Normal [facility] Comment on above: Performed By: #### C BC #### [facility] [place] [address] [place] [address] Lymphocytosis # OCCUPATIONAL THERAPY INSTRUCTOR Normal [facility] Comment on above: Performed By: #### C BC #### [facility] [place] [address] [place] [address] Lymphocytosis % OCCUPATIONAL THERAPY INSTRUCTOR Normal [facility] Comment on above: Performed By: #### C BC #### [facility] [place] [address] [place] [address] Macrocytosis OCCUPATIONAL THERAPY INSTRUCTOR Normal [facility] Comment on above: Performed By: #### C BC #### [facility] [place] [address] [place] [address] MCH (RBC) [Entitic mass] 29.4 pg Normal 27.0-31.0 [facility] Comment on above: Performed By: #### C BC #### [facility] [place] [address] [place] [address] MCHC (RBC) [Mass/Vol] 34.0 g/dL Normal 33.0-37.0 [facility] Comment on above: Performed By: #### C BC #### [facility] [place] [address] [place] [address] MCV (RBC) [Entitic vol] 86.2 fL Normal 80.0-94.0 [facility] Comment on above: Performed By: #### C BC #### [facility] [place] [address] [facility] [place] [address] Microcytosis OCCUPATIONAL THERAPY INSTRUCTOR Normal [facility] Comment on above: Performed By: #### C BC #### [facility] [place] [address] [place] [address] Monocytes (Bld) [#/Vol] 0.4 10*3/uL Normal 0.3-0.8 [facility] Comment on above: Performed By: #### C BC #### [facility] [place] [address] [place] [address] Monocytes/100 WBC (Bld) 7.6 % Normal 5.5-11.7 [facility] Comment on above: Performed By: #### C BC #### [facility] [place] [address] [place] [address] Monocytosis % OCCUPATIONAL THERAPY INSTRUCTOR Normal [facility] Comment on above: Performed By: #### C BC #### [facility] [place] [address] [place] [address] Neutropenia # OCCUPATIONAL THERAPY INSTRUCTOR Normal [facility] Comment on above: Performed By: #### C BC #### [facility] [place] [address] [place] [address] Neutropenia % OCCUPATIONAL THERAPY INSTRUCTOR Normal [facility] Comment on above: Performed By: #### C BC #### [facility] [place] [address] [place] [address] Neutrophils (Bld) [#/Vol] OCCUPATIONAL THERAPY INSTRUCTOR Normal [facility] Comment on above: Performed By: #### C BC #### [facility] [place] [address] [facility] [place] [address] Neutrophils Abs. # 2.9 K/uL Normal 2.2-4.8 [facility] Comment on above: Performed By: #### C BC #### [facility] [place] [address] [place] [address] Neutrophils/100 WBC (Bld) 58.6 % Normal 43.0-65.0 [facility] Comment on above: Performed By: #### C BC #### [facility] [place] [address] [place] [address] Neutrophils/100 WBC (Bld) OCCUPATIONAL THERAPY INSTRUCTOR Normal [facility] Comment on above: Performed By: #### C BC #### [facility] [place] [address] [place] [address] Nucleated RBC (Bld) [#/Vol] 0.0 10*3/uL Normal [facility] Comment on above: Performed By: #### C BC #### [facility] [place] [address] [place] [address] Nucleated RBC/100 WBC (Bld) [Ratio] 0.0 % Normal [facility] Comment on above: Performed By: #### C BC #### [facility] [place] [address] [place] [address] Pancytopenia OCCUPATIONAL THERAPY INSTRUCTOR Normal [facility] Comment on above: Performed By: #### C BC #### [facility] [place] [address] [place] [address] Platelet mean volume (Bld) [Entitic vol] 10.9 fL High 7.4-10.4 [facility] Comment on above: Performed By: #### C BC #### [facility] [place] [address] [place] [address] Platelets (Bld) [#/Vol] 105 10*3/uL Low 148-402 [facility] Comment on above: Performed By: #### C BC #### [facility] [place] [address] [place] [address] Poikilocytosis OCCUPATIONAL THERAPY INSTRUCTOR Normal [facility] Comment on above: Performed By: #### C BC #### [facility] [place] [address] [facility] [place] [address] RBC (Bld) [#/Vol] 5.31 10*6/uL Normal 4.13-5.69 [facility] Comment on above: Performed By: #### C BC #### [facility] [place] [address] [place] [address] Small Platelets OCCUPATIONAL THERAPY INSTRUCTOR Normal [facility] Comment on above: Performed By: #### C BC #### [facility] [place] [address] [facility] [place] [address] Thrombocytopenia OCCUPATIONAL THERAPY INSTRUCTOR Normal [facility] Comment on above: Performed By: #### C BC #### [facility] [place] [address] [facility] [place] [address] Thrombocytopenia. OCCUPATIONAL THERAPY INSTRUCTOR Normal [facility] Comment on above: Performed By: #### C BC #### [facility] [place] [address] [place] [address] Thrombocytosis OCCUPATIONAL THERAPY INSTRUCTOR Normal [facility] Comment on above: Performed By: #### C BC #### [facility] [place] [address] [facility] [place] [address] WBC (Bld) [#/Vol] 5.0 10*3/uL Normal 3.6-10.8 [facility] Comment on above: Performed By: #### C BC #### [facility] [place] [address] [facility] [place] [address] RA Latex Turbid.on 0 RA Latex Turbid. <10.0 Normal 0.0-13.9 [facility] Comment on above: Result Comment: Perf ormed at: - [facility] [address] [id number] Fire Control System Installer: Romulo Peng PhD, Phone: [phone] Performed By: #### R FWT #### [facility] [address] [place], [place] [id number] Sedimentation Rateon 020 Sedimentation Rate 4 mm/hr Normal 0-10 [facility] Comment on above: Performed By: #### E SR #### [facility] [address] [place], [place] [address] Uric Acidon 12-03-2019 Urate [Mass/Vol] 6.1 mg/dL Normal 3.4-8.6 [facility] Comment on above: Performed By: #### C BC #### [facility] [address] [place], [place] [address] HISTORY PHYSICALon 0 HISTORY PHYSICAL HNO ID: [id number] Author: Viviane Hughes Service: ? Author Type: Physician Speedboat Operator Type: HANDP Filed: 06/19/2019 9:19 AM [...] mouth once daily. famotidine/Ca carb/mag hydrox (ACID DISH NETWORK INSTALLER COMPLETE, FAMOT, ORAL) Take 1 tablet by mouth twice daily. B Complex Vitamins capsule Take 1 capsule by mouth once daily. ky-obk-fycgb acid-lutein (CENTRUM SILVER) 400-250 mcg chew Take [...] June 19, 2019 TIME: 9:18 AM PAGER: [phone] [facility] PT EDon 06-19-2019 PT ED HNO ID: [id number] Author: Daniela Mann) FRANCIA Ramos Service: Nursing [...] By: Daniela Ramos RN In Department: PROCEDURES [facility] PT ED HNO ID: [id number] Author: Daphne Newton (Rn) FRANCIA Byers Service: [...] By: Daphne Byers RN In Department: PROCEDURES [facility] HOSPon 06-12-2019 HOSP Patient:Jack Nielsen MRN: Height:5' 10.984 (1.803 m) Weight:353 lb 2.8 oz (160.2 kg) Outpatient Medications as of 06/19/19: doxepin capsule 50 mg levomilnacipran ER (FETZIMA) 40 mg famotidine/Ca carb/mag hydrox (ACID DISH NETWORK INSTALLER COMPLETE, FAMOT, ORAL) B Complex Vitamins capsule gz-zqa-kyzph acid-lutein (CENTRUM SILVER) 400-250 mcg chew triamterene [...] once daily. - famotidine/Ca carb/mag hydrox (ACID DISH NETWORK INSTALLER COMPLETE, FAMOT, ORAL) Take 1 tablet by mouth twice daily. - B Complex Vitamins capsule Take 1 capsule by mouth once daily. - ur-noz-rkbcu acid-lutein (CENTRUM SILVER) 400-250 mcg chew Take [...] Neuro: No history of TIA's, stroke, DIRECTOR PHARMACEUTICAL tumor, impaired sensorium, hemiplegia, paraplegia or quadriplegia. [...] Augusto Evans MD 06/08/2019 2:22 PM Signed [facility] Patient instructions for day of surgery [...] once daily. - famotidine/Ca carb/mag hydrox (ACID DISH NETWORK INSTALLER COMPLETE, FAMOT, ORAL) Take 1 tablet by [...] your physician) as soon as possilbe to [phone], ATTN: Augusto Evans MD If you have any questions or concerns regarding today's visit please do not hesitate to contact the [facility] center at [phone] or [phone], ext [phone]. Progress Notes ([facility]): Umer Winston DO, DO 06/08/2019 3:40 [...] 3:07 PM PAGER/CONTACT #: Previous Version Normal [facility] GFRon 08-03-2018 GFR/1.73 sq M.predicted MDRD (S/P/Bld) [Vol rate/Area] mL/min/{1.73_m2} Normal [facility] Comment on above: Result Comment: To e [...] <15 Performed By: #### G FR1 #### [place] [address] METABOLIC PANELon 08-03-2018 ALK PHOS 83 U/L Normal 24-126 [facility] Comment on above: Performed By: #### 4 [id number] #### [place] [address] ALT [Catalytic activity/Vol] 61 U/L High 4-50 [facility] Comment on above: Performed By: #### 4 [id number] #### [facility] [employer] [place] [id number] AST [Catalytic activity/Vol] 33 U/L Normal 3-55 [facility] Comment on above: Performed By: #### 4 [id number] #### [place] [address] Calcium [Mass/Vol] 9.6 mg/dL Normal 8.4-10.4 [facility] [employer] [facility] Comment on above: Performed By: #### 4 [id number] #### [place] [address] Glucose [Mass/Vol] 88 mg/dL Normal 65-100 [facility] [employer] [facility] Comment on above: Performed By: #### 4 [id number] #### [place] [address] Urea nitrogen [Mass/Vol] 23 mg/dL Normal 8-26 [facility] Comment on above: Performed By: #### 4 [id number] #### [place] [address] Bilirubin Ql (U) 0.4 mg/dL Normal 0.2-1.6 [facility] [employer] Comment on above: Performed By: #### 4 [id number] #### [place] [address] CO2 [Moles/Vol] 26 mmol/L Normal 22-30 [facility] [employer] [facility] Comment on above: Performed By: #### 4 [id number] #### [facility] [employer] [address] [address] Creatinine [Mass/Vol] 0.90 mg/dL Normal 0.66-1.25 [facility] [employer] Comment on above: Performed By: #### 4 [id number] #### [place] [address] Protein [Mass/Vol] 6.9 g/dL Normal 6.3-8.2 [facility] Comment on above: Performed By: #### 4 [id number] #### [place] [address] Potassium [Moles/Vol] 4.3 mmol/L Normal 3.6-5.1 [facility] Comment on above: Performed By: #### 4 [id number] #### [place] [address] Sodium [Moles/Vol] 141 mmol/L Normal 135-147 [facility] Comment on above: Performed By: #### 4 [id number] #### [place] [address] Albumin [Mass/Vol] 4.3 g/dL Normal 3.5-5.0 [facility] Comment on above: Performed By: #### 4 [id number] #### [place] [address] Chloride [Moles/Vol] 106 mmol/L Normal 96-109 [facility] Comment on above: Performed By: #### 4 [id number] #### [place] [address] Vital Signs Date Time Vital Sign Value Performing Clinician Baron iverson 01-20-2023 08:21-0400 Body height 180.3 cm Sam Crow MD Work Phone: [facility] 01-20-2023 08:21-0400 Body temperature 97.2 [degF] Sam Crow MD Work Phone: [facility] 01-20-2023 08:21-0400 Body weight 170.1 kg Sam Crow MD Work Phone: [facility] 01-20-2023 08:21-0400 Diastolic blood pressure 63 mm[Hg] Sam Crow MD Work Phone: [facility] 01-20-2023 08:21-0400 Heart rate 62 /min Sam Crow MD Work Phone: [facility] 01-20-2023 08:21-0400 Systolic blood pressure 148 mm[Hg] Sam Crow MD Work Phone: [facility] Encounters Encounter Date Encounter Type Care Provider Facility Start: 01-09-2024 ambulatory Rashid Ruffin acility:[facility] Start: 09-14-2023 End: 09-14-2023 ambulatory PA Cassidy Hummel Facility:[facility] Start: 08-18-2023 End: 08-19-2023 ambulatory Jhonny Hernandez Facility:[facility] Start: 07-14-2023 End: 07-15-2023 ambulatory PA Cassidy Hummel Facility:[facility] Start: 07-07-2023 End: 07-08-2023 ambulatory PA Cassidy Hummel Facility:[facility] Start: 07-06-2023 End: 07-07-2023 ambulatory PA Cassidy Hummel Facility:[facility] Start: 06-28-2023 End: 06-29-2023 ambulatory PA Cassidy Hummel Facility:[facility] Start: 06-16-2023 End: 06-16-2023 ambulatory Reno MCCLURE Facility:[facility] Start: 04-14-2023 Telephone encounter Fadi Guevara [facility] Start: 01-22-2023 ambulatory Minal Puga RN [facility] Start: 01-22-2023 E-mail encounter fro m caregiver Minal Puga RN [facility] Start: 01-21-2023 Telephone encounter Minal Guevara General Surgery Comment on above: Design Drafter Chief - Shawna greco (Enroll in BMI program) Start: 01-20-2023 End: 01-21-2023 ambulatory SAM CROW Facility:[facility] Start: 01-20-2023 End: 01-20-2023 Patient encounter procedure Sam Crow MD Work Phone: General Surgery Comment on above: Incisional hernia, w ithout obstruction or gangrene (Primary Dx) Start: 01-19-2023 End: 01-20-2023 ambulatory Unlisted Provider Facility:[facility] Start: 01-15-2023 End: 01-15-2023 Emergency department patient visit Kareem Sanchez Facility:[facility] Start: 01-04-2023 Orders Only Marika Tavares APRN.CNP Work Phone: General Surgery Comment on above: Incisional hernia, w ithout obstruction or gangrene (Primary Dx) Procedures Date Procedure Procedure Detail Performing Clinician Start: 02-22-2019 Lipid 1996 panel - S christiano or Plasma Fadi Roberson RN Plan of Treatment Date Care Activity Detail Author Start: 02-23-2024 Lipid 1996 panel - S christiano or Plasma Lipid Screening [facility] Start: 02-23-2024 LIPID SCREEN LIPID SCREEN [facility] Start: 09-14-2023 Urine microalbumin profile [facility] Start: 02-04-2023 Influenza vaccination C [facility] Start: 02-23-2020 ANNUAL PCP TEAM CHILD WELFARE DIRECTOR ELIANA DISEASE VISIT ANNUAL PCP TEAM CHRONIC DISEASE VISIT [facility] Start: 1996 BP CONTROLLED (<130/80) BP CON TROLLED (<130/80) [facility] Start: 1996 HEPATITIS C SCREENING HEPATITIS C SC REENING [facility] Start: 1996 HIV SCREENING HIV SCREENING [facility] Start: 1978 COVID-19 VACCINE (#1) COVID-19 VACCI NE (#1) [facility] Start: 1978 HEPATITIS B (1 of 3 - 3-dose series) HEPATITIS B (1 of 3 - 3-dose series) [facility] Start: 1978 Hepatitis B Vaccine (1 of 3 - 3-dose series) Hepatitis B Vaccine (1 of 3 - 3-dose series) [facility] End: 02-03-2024 Ct abdomen & pelvis w/o contrast material CT ABD/PEL WO IVCON Radiology Routine Incisional hernia, without obstruction or gangrene 1 Occurrences starting 01/04/2023 until 02/03/2024 [facility] Work Phone: Comment on above: 1 Occurrences starti ng 01/04/2023 until 02/03/20[facility] Immunization Date Immunization Notes Care Provider Mike dave 03-06-2015 influenza, seasonal, injectable Marika Tavares APRN.CNP Work Phone: [facility] Work Phone: 03-06-2015 influenza virus vaccine, unspecified formulation Fadi Roberson RN [facility] 09-13-2013 tetanus toxoid, redu dana diphtheria toxoid, and acellular pertussis vaccine, adsorbed Marika Chaitanya NET WPF DEVELOPER.CENTER MANAGER Work Phone: [facility] Work Phone: Payers Date Payer Category Payer Self-pay 2022 Medicaid [id number] 2022 Medicaid [id number] 1978 Unknown [id number] 2.16.8 40.1.941600.3.579.2. 1978 Unknown [id number] 2.16.8 40.1.888412.3.579.2 1978 Unknown [id number] 2.16.8 40.1.814111.3.579.2. 1978 Unknown [id number] 2.16.8 40.1.458842.3.579.2. 1978 Unknown [id number] 2.16.8 40.1.767711.3.579.2. 1978 Unknown [id number] 2.16.8 40.1.627926.3.579.2. 1978 Unknown [id number] 2.16.8 40.1.620871.3.579.2. 1978 Unknown [id number] 2.16.8 40.1.874001.3.579.2. 1978 Unknown [id number] 2.16.8 40.1.801876.3.579.2. 1978 Unknown [id number] 2.16.8 40.1.823466.3.579.2 1978 Unknown [id number] 2.16.8 40.1.337697.3.579.2.718 1978 Unknown [id number] 2.16.8 40.1.604926.3.579.2.718 1978 Unknown [id number] 2.16.8 [id number] Unknown [id number] 2.16.8 [id number] Social History Date Type Detail Facility Start: 06-08-2019 End: 01-20-2023 Tobacco smoking status NHIS Ex-smoker [facility] End: 06-06-1982 History of tobacco use Current smoker [facility] End: 06-06-1982 History of tobacco use Cigarette Smoker [facility] Start: 06-08-2019 End: 01-20-2023 Cigarettes smoked current (pack per day) - Reported 0.1 [facility] Work Phone: Start: 06-08-2019 End: 01-20-2023 Tobacco use and exposure Smokeless tobacco non-user [facility] Start: 03-19-2021 End: 01-20-2023 Alcohol intake Lifetime non-drinker (finding) [facility] Start: 1980 Sex Assigned At Not on file [facility] Start: 06-19-2019 End: 01-20-2023 Gender identity Not on file [facility] Work Phone: How often to you hav e a drink containing alcohol? Never [facility] Work Phone: Average Number of Drinks Not on file [facility] Clinical Notes 01-15-2023 to 09-14-2023 Telephone [...] doctor may want you to: ? Take fneh-xry-fyqysvl medicines. ? Drink plenty of fluids. The [...] Applesauce. ? Rice. ? Lean meats. ? [place]. ? Crackers. ? Do not eat or drink: ? Fluids that have a lot of sugar or caffeine. ? Alcohol. ? Spicy or fatty foods. General instructions ? Take ktdx-yzw-soialsc and prescription medicines only as told by [...] use soap and water, use alcohol-based hand armature winder helper repair. ? Keep all follow-up visits. How is [...] the hospital. Summary (more content not included)... [facility] 06-16-2023 Note Patient Education Ma terials Follows: [...] at home: Medicines ? Take or apply gjej-gog-wymvrpp and prescription medicines only as told by [...] provider. Document Revised: 08/21/2020 Document Reviewed: 08/21/2020 [facility] Patient Education ? 2022 [employer]. [facility] 04-14-2023 Miscellaneous Notes Formattin g of this note might be different from the original. [facility] COORDINATION TELEPHONE ENCOUNTER Pt mother is helping him. LVM with call back number documented in this encounter [facility] 01-22-2023 Miscellaneous Notes Formattin g of this note might be different from the original. Unable to send [employer] message- account not active documented in this encounter [facility] 01-22-2023 Miscellaneous Notes Formattin g of this note might be different from the original. [facility] COORDINATION TELEPHONE ENCOUNTER 01/21/18: called and left message for pt to call office. Provided this RNs contact number. documented in this encounter [facility] 01-20-2023 Note HNO ID: [id number] Author: Sam Crow MD Service: ? Author [...] plan as documented in the resident?s note. [facility] 01-20-2023 Note HNO ID: [id number] Author: Zahraa Stovall Service: ? Author Type: ? Type: Progress Notes Filed: 01/20/2023 9:13 AM Note Text: [facility] Abdominal Core Health - HISTORY [...] mouth once daily. famotidine/Ca carb/mag hydrox (ACID DISH NETWORK INSTALLER COMPLETE, FAMOT, ORAL) Take 1 tablet by mouth twice daily. B Complex Vitamins capsule Take 1 capsule by mouth once daily. ti-uwr-caebt acid-lutein (CENTRUM SILVER) 400-250 mcg chew Take [...] and discussed with Dr. Mignon Stovall, MS4 [facility] 01-20-2023 History of Presen t illness Narrative [...] as documented in the resident s note. [facility] Abdominal Core Health - HISTORY [...] mouth once daily. famotidine/Ca carb/mag hydrox (ACID DISH NETWORK INSTALLER COMPLETE, FAMOT, ORAL) Take 1 tablet by mouth twice daily. B Complex Vitamins capsule Take 1 capsule by mouth once daily. dv-cpr-rhnpi acid-lutein (CENTRUM SILVER) 400-250 mcg chew Take [...] Mignon Stovall, MS4 documented in this encounter [facility] 01-20-2023 Nurse Note What is the reason for your visit today? consult Who is your referring physician? Dr. Crow Are you having poor oral intake? NO Have you had unintentional weight loss of 15 lbs/7 Kg in the last 3-6 months? NO Bowels: diarrhea Wound: clean & dry Temperature: No Drains: No documented in this encounter [facility] 01-15-2023 Note Education Materials Infectious Disease [...] these instructions at home: Medicines ? Take tqic-hft-gibokmo and prescription medicines only as told by [...] provider. Document Revised: 03/04/2022 Document Reviewed: 03/04/2022 [facility] Patient Education ? 2022 [employer] Procedures How to Take Your Blood [...] chair. ? Be (more content not included)... [facility] Evaluation note Diagnosis Incisional hernia, without obstruction or gangrene- Primary Incisional hernia without mention of obstruction or gangrene [facility] Diagnosis Incisional hernia, without obstruction or gangrene- Primary Incisional hernia without mention of obstruction or gangrene documented in this encounter [facility] Summary Purpose Family History No Family History Records FoundNo Family History Records FoundNo Family History Records FoundNo Family History Records FoundNo Family History Records FoundNo Family History Records Found Advance Directives No Advanced Directives Records FoundDocuments on File Type Date Recorded Patient Human Capital Consultant 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 Advance Directive(s) 06/08/2019 4:15 PM Documents on File Type Date Recorded Patient Human Capital Consultant 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 Advance Directive(s) 06/08/2019 4:15 PM Reason for Referral Specialty Diagnoses / Procedures Referred By Elías t Referred To Contact CT IMAGING Diagnoses Incisional hernia, without obstruction or gangrene Procedures CT ABD/PEL WO IVCON CT ABD & PELVIS W/O CONTRAST Marika Tavares, NET WPF DEVELOPER.CENTER MANAGER [address] [place] [id number] Imaging Referral ID Status Reason Start Date Expiration Date Visits Requested Visits Authorized [id number] Pending Review Auto-Generat ed Referral 01/04/2023 02/03/2024 1 1 Specialty Diagnoses / Procedures Referred By Contac t Referred To Contact Diagnoses Incisional hernia, without obstruction or gangrene Procedures CONSULT [facility] OFFICE/OUTPATIENT [facility] 60-74 MINUTES Sam Crow MD [address] [place] [address] Referral ID Status Reason Start Date Expiration Date Visits Requested Visits Authorized [id number] Authorized PCP Requested Referral 01/20/2023 01/20/2024 1 1 Additional Source Comments (unrecognized sect ion and content) No Status Records FoundNo Status Records FoundNo Status Records FoundNo Status Records FoundNo Status Records FoundNo Status Records Found INFORMATION SOURCE (unrecogn ized section and content) DATE CREATED AUTHOR 04/26/2019 [facility] DATE CREATED AUTHOR AUTHOR'S ORGANIZ ATION 06/19/2019 [facility] DATE CREATED AUTHOR AUTHOR'S ORGANIZ ATION 08/02/2020 [facility] DATE CREATED AUTHOR AUTHOR'S ORGANIZ ATION 04/16/2023 [facility] DATE CREATED AUTHOR AUTHOR'S ORGANIZ ATION 10/13/2023 [facility] DATE CREATED AUTHOR AUTHOR'S ORGANIZ ATION 01/11/2024 [facility] Source Comments (unrecognize d section and content) In the event this informatio n is protected by the Federal Confidentiality of Alcohol and Drug Abuse Patient Records regulations: The Federal rules restrict any use of the information to criminally investigate or prosecute any alcohol or drug abuse patient.[facility] the event this information is protected by the Federal Confidentiality of Alcohol and Drug Abuse Patient Records regulations: The Federal rules restrict any use of the information to criminally investigate or prosecute any alcohol or drug abuse patient.[facility] the event this information is protected by the Federal Confidentiality of Alcohol and Drug Abuse Patient Records regulations: The Federal rules restrict any use of the information to criminally investigate or prosecute any alcohol or drug abuse patient.[facility] the event this information is protected by the Federal Confidentiality of Alcohol and Drug Abuse Patient Records regulations: The Federal rules restrict any use of the information to criminally investigate or prosecute any alcohol or drug abuse patient.[facility] the event this information is protected by the Federal Confidentiality of Alcohol and Drug Abuse Patient Records regulations: The Federal rules restrict any use of the information to criminally investigate or prosecute any alcohol or drug abuse patient.[facility] Care Teams (unrecognized sec tion and content) Inspector Structural Bonding Relationship Specialty Start Date End Date Antoine Alcazar [id number] [address] Referring General Surgery 02/07/19 Inspector Structural Bonding Relationship Specialty Start Date End Date Antoine Alcazar Darrell [address] [facility] [place] [address] Referring General Surgery 02/07/19 Inspector Structural Bonding Relationship Specialty Start Date End Date Antoine Alcazar Darrell [address] [address] [place] [address] Referring General Surgery 02/07/19 Inspector Structural Bonding Relationship Specialty Start Date End Date Inge Antoine Darrell [address] [facility] [place] [address] Referring General Surgery 02/07/19 Reason for Visit (unrecogniz ed section and content) Reason Comments Consult Reason Comments Design Drafter Chief - Other Enroll in [facility] p [facility] FOR RECORDS PERTAINING TO PATIENTS WHO [...] BE BASED ON THE PRIMARY CLINICAL RECORDS. [employer] [facility]. provides no warranty or guarantee of the accuracy or completeness of information in this document.
== END 2024-01-26 10:19 | disposition home or self-care (01) ==
LOC: VC 10:18
PROVIDERS: PCP Radiology Diagnostic Radiology; Visit Provider Radiology Diagnostic Radiology
DX: I80.01 Phlebitis and thrombophlebitis of superficial vessels of right lower extremity (principal)
CPT/HCPCS: 93971; G0463

== ENCOUNTER 2024-02-16 13:07 | Outpatient (OUT) | payer OTHER, SELFPAY ==
--- NOTE | 2024-02-15 12:52 | V.VEINS.HP ---
Vital Signs 02/16/24 13:30 02/16/24 14:18 Height 5 ft 11 in Weight 172.365 kg BP 142/80 H BP Location Right Brachial BP Position Sitting BP Cuff Size Adult BP Source Manual Cuff Respiration 20 Pulse 71 Pulse Source Monitor Pulse Oximetry (%) 96 Oxygen Delivery Method Room Air Comment The patient's blood pressure is elevated. Varicose Veins Patient in today for microfoam chemical ablation left leg. Augusto Monsalve MD personally performed the services described in this documentation, as scribed by Alex Rankin RN in my presence and it is both accurate and complete. Alex Monsalve RN, am scribing for, and in the presence of, Dr. Augusto Mensah and in the presence of the patient. thigh: bilateral, knee: bilateral, calf: bilateral, ankle: bilateral and [place]: bilateral cramping, dull, sharp and tender 8 4 years Worsened in recent months: Yes standing analgesics (Tylenol), bed rest, elevating extremities and compression stockings Reports muscle spasms of leg, edema, leg edema and other (ulceration) History of lower extremity trauma: No Superficial thrombophlebitis: No Family history of varicose veins: unknown Has patient had previous lower extremity venous surgery: No Patient has previously received the following treatment(s) for lower extremity varicose veins: Reports none Does patient have a history of : not applicable Does patient intend to have future pregnancies: not applicable Has patient had lower extremity venous scan with relux testing: Yes Support hose used: Yes Problems walking or doing physical activity: Yes How does it affect you: Compromised work d/t having to take multiple breaks throughout the day. Do you walk much: Yes Do you stand much: Yes Review of Systems ROS Narrative Augusto Monsalve MD personally performed the services described in this documentation, as scribed by Alex Rankin RN in my presence and it is both accurate and complete. Alex Monsalve RN, am scribing for, and in the presence of, Dr. Augusto Mensah and in the presence of the patient. Status of ROS 10 or more systems reviewed and unremarkable except as noted in history and below Cardiovascular Reports: edema, swelling of feet/ankles and leg pain with exertion Musculoskeletal Reports: extremity pain and extremity swelling Integumentary/Breast Reports: redness, new lesion, non-healing lesion and changes in skin color [facility] Medical History (Updated 12/14/23 @ 15:00 by Lucia Gupta) Phlebitis and thrombophlebitis of superficial vessels of right lower extremity ?I80.01 - Phlebitis and thrombophlebitis of superficial vessels of right lower extremity (ICD-10) Pain due to varicose veins of both lower extremities ?I83.813 - Varicose veins of bilateral lower extremities with pain (ICD-10) Chronic venous hypertension ?I87.309 - Chronic venous hypertension (idiopathic) without complications of unspecified lower extremity (ICD-10) Venous 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 veins ?I83.019 - Varicose veins of right lower extremity with ulcer of unspecified site (ICD-10) ?I83.029 - Varicose veins of left lower extremity with ulcer of unspecified site (ICD-10) ?L97.919 - Non-pressure chronic ulcer of unspecified part of right lower leg with unspecified severity (ICD-10) ?L97.929 - Non-pressure chronic ulcer of unspecified part of left lower leg with unspecified severity (ICD-10) Surgical History (Updated 02/16/24 @ 14:22 by Alex Rankin) S/P sclerotherapy of varicose veins ?Z98.890 - Other specified postprocedural states (ICD-10) ?Z86.79 - Personal history of other diseases of the circulatory system (ICD-10) History of hernia repair ?Z98.890 - Other specified postprocedural states (ICD-10) ?Z87.19 - Personal history of other diseases of the digestive system (ICD-10) History of cholecystectomy ?Z90.49 - Acquired absence of other specified parts of digestive tract (ICD-10) Family History (Updated 12/14/23 @ 09:46 by Danya Holt) Other Family history not known due to adoption Social History (Updated 12/14/23 @ 09:47 by Danya Holt) Within the past year, how often did you have a drink containing alcohol: monthly or less Smoking status: Never smoker Non-prescribed substance use: denies use Meds Home Medications and Allergies Home Medications ?Medication ?Instructions ?Recorded ?Confirmed ?Type Fabuxostat 12/14/23 History buspirone 5 mg tablet 5 mg PO BID 12/14/23 12/14/23 History calcium phosphate,dibasic 77 tab PO 12/14/23 History mg-vitamin D3 400 unit tablet dulaglutide 0.75 mg/0.5 mL 0.75 mg subcut QWEEK 12/14/23 12/14/23 History subcutaneous pen injector (Trulicity) ferrous sulfate 325 mg (65 mg 325 mg PO DAILY 12/14/23 12/14/23 History iron) tablet (Feosol) losartan 100 mg tablet 100 mg PO DAILY 12/14/23 12/14/23 History melatonin 5 mg capsule mg 12/14/23 History omeprazole 20 mg capsule,delayed 20 mg PO DAILY 12/14/23 12/14/23 History release trazodone 50 mg tablet 25 mg PO DAILY 12/14/23 12/14/23 History Allergies Allergy/AdvReac Type Severity Reaction Status Date / Time bupropion [From Wellbutrin] Allergy Unknown Verified 11/04/23 14:41 Exam Narrative Exam Narrative: Augusto Monsalve MD personally performed the services described in this documentation, as scribed by Alex Rankin RN in my presence and it is both accurate and complete. Alex Monsalve RN, am scribing for, and in the presence of, Dr. Augusto Mensah and in the presence of the patient. Constitutional Documenting provider has reviewed patient's vital signs: yes Common normals: oriented x3 Lymph Lymphatic: no lymphedema noted Cardio Common normals: regular rate Rate: regular rate Peripheral pulses: posterior tibial pulses present and dorsalis pedis pulses present Extremity Common normals: normal capillary refill General: calf tenderness and edema Right lower extremity: upper leg and lower leg Left lower extremity: upper leg and lower leg Neuro Common normals: oriented x3 Assessment and Plan Assessment and Plan (1) Pain due to varicose veins of both lower extremities: Plan f/u evaluation with physician along with left leg limited u/s Augusto Monsalve MD personally performed the services described in this documentation, as scribed by Alex Rankin RN in my presence and it is both accurate and complete. Alex Monsalve RN, am scribing for, and in the presence of, Dr. Augusto Mensah and in the presence of the patient. Procedures Procedure Instructions Procedures Left leg microfoam chemical ablation/Varithena: Risks and benefits of the procedure were discussed at length and informed written consent was obtained.? Time-out procedure was performed and the correct patient and procedure were confirmed.? Staff present during time-out: Alex Rankin RN and Augusto Mensah MD.? Patient prepped and procedure performed in usual sterile fashion.? Patient was placed in Trendelenburg prior to Polidocanol/Varithena injections. Sclerosing Agent:?? 15cc 1% Polidocanol/Varithena Site Injected: left lecc varithena administered in to a 4mm varicose vein distal anterior lower leg 6cc varithena administered into a 4mm varicose vein distal anterior medial lower leg 3cc varithena admnistered in to a 4mm varicose vein mid lateral left lower leg Number of Injections:? 3 The patient tolerated the procedure well without complication.? Hemostasis was obtained and thigh-high compression stocking was applied with foam pads.? Instructed patient to wear stocking for at least 96 hours and sleep with it and only remove for showering.? The patient was instructed to? wear stocking for 2 weeks.? Patient verbalizes understanding and states they will comply.? Patient was given post-procedure instructions. Patient was discharged in good condition.? Scheduled to undergo limited venous ultrasound and? exam on 02/22/2024 IAugusto MD personally performed the services described in this documentation, as scribed by Alex Rankin RN in my presence and it is both accurate and complete. Alex Monsalve RN, am scribing for, and in the presence of, Dr. Augusto Mensah and in the presence of the patient.
--- NOTE | 2024-02-15 12:55 | P.DS_ITS ---
Discharge Plan Discharge Disposition: Home, Self-Care Outpatient Diagnostics: [facility] Facility EST LMTD (Routine) Timeframe: 2 Weeks Facility: [facility] - Location[facility] Ordered By: Augusto Mensah Follow Up Appointments: 02/22/2024 Plan of Treatment: f/u evaluation with physician along with left leg limited u/s Patient Instructions: Polidocanol (By injection) (Asclera, Varithena) Print Language: Mongolian Discharge Date/Time: 02/16/24 14:20
--- NOTE | 2024-02-16 13:16 | VEIN_ITS ---
[address] [address] Patient Name: DAVI MCCULLOUGH MRN: [id number] date: 1980 Sex: M Assigned Patient Location: Current Patient Location: Accession/Order Number: [id number] Exam Date: 02/16/2024 13:16 Report Date: 02/16/2024 14:22 At the request of: ISAÍAS WILLAMS Procedure: VC INJ Foam Sclerosant WUS NURSE AUDITOR PROCEDURE: VC INJ Foam Sclerosant WUS NURSE AUDITOR COMPARISON: None. HISTORY: I83.813 - Varicose veins of bilateral lower extremities w... Pre-operative Diagnosis: CEAP class C5 venous insufficiency with pain, tenderness, edema and incompetent left saphenous and varicose vein(s), chronic venous insufficiency left leg secondary to venous incompetence Post-operative Diagnosis: CEAP class C5 venous insufficiency with pain, tenderness, edema and incompetent left saphenous and varicose vein(s), chronic venous insufficiency left leg secondary to venous incompetence Procedure Performed: 1. Ultrasound-guided microfoam chemical ablation with Varithenaregistered 2. Intraoperative ultrasound guidance Anesthesia: None Indications for Procedure: 43-year-old male who presents with a long history of lower extremity pain and swelling resulting in hemosiderin staining and skin thickening. The patient failed conservative medical therapy including medical compression stockings, exercise and analgesics. Prior procedures include a venous laser ablation. Multiple incompetent varicosities of the left leg. Duplex scan showed reflux and enlarged diameters up to 4 mm. The patient underwent informed consent including management options where the complications of infection, bleeding, pain, and skin injury were discussed. Particular attention was spent discussing thrombus extension and deep vein thrombosis as well as the possibility of pulmonary embolus and treatment with oral or injectable blood thinners. Procedure: The patient walked to the procedure room. All applicable staff donned appropriate apparel. A procedure timeout was performed to confirm correct patient, correct extremity, correct procedure, and correct room set-up including presence of all applicable supplies, devices, and drugs. A duplex ultrasound, performed by myself confirmed the location and incompetence of branch saphenous varicosities and their course was marked on the skin together with the dilated tributaries. The extent of treatment of the vein and the associated varicosities was determined through ultrasound mapping. The skin was prepped and then punctured with a butterfly needle and advanced under ultrasound guidance. The Varithenaregistered canister was activated and the canister was primed and purged as required in the instructions for use. Varithenaregistered was drawn into a sterile syringe. The following injections were made: 6 cc injected into a 4 mm varicose vein distal anterior left lower leg 6 cc injected into a 4 mm varicose vein distal anterior medial lower leg 3 cc injected into a 4 mm varicose vein mid lateral left lower leg Varithenaregistered was slowly administered at 0.5-1.0 cc/second with close observation by ultrasound of its course in the vessels. Total volume utilized was: 15 cc. Following administration of Varithenaregistered the leg was elevated and the patient was asked to repeatedly dorsiflex the ankle to limit flow of Varithenaregistered into perforating veins. Once appropriate spasm had been confirmed in the treated veins, the vascular catheter was removed from the leg and light pressure was applied over the puncture site for hemostasis. The common femoral and deep superficial veins were then evaluated for flow and compressibility prior to dressing placement. The lower extremity was kept elevated at 45 degrees above the horizontal and cording material was applied over the saphenous segments and tributaries to allow for eccentric compression over the target vessels including the targeted saphenous vein(s). A multilayer dressing was applied consisting of foam pads, coban and thigh-high 20-30 mm Hg compression elastic support hose were placed on the patient. The leg was lowered only after compression had been applied and the patient was immediately ambulatory. The patient ambulated 10 minutes under supervision and was without apparent concerns at time of release. Post-care instructions include advising patient to keep post-treatment bandages in place and dry for 48 hours, avoid extended periods of inactivity, avoid heavy exercise for one week, wear compression stockings on the treated leg continuously for two weeks, to walk daily for 10 minutes over the next month. The patient was instructed to take an anti-inflammatory medicine as needed and to follow up for color duplex scan of the Saphenous veins, the treated branch saphenous varicosities, the adjacent deep veins, and additional treatment within 7 days. PERSONNEL: Alex Rankin RN Electronically authenticated by: ISAÍAS WILLAMS Date: 02/16/2024 14:22
[2024-02-16 13:30] VITALS: BP 142/80; PULSE 71; O2SAT 96
== END 2024-02-16 14:20 | disposition home or self-care (01) ==
LOC: VC 13:07
PROVIDERS: PCP Radiology Diagnostic Radiology; Visit Provider Radiology Diagnostic Radiology
DX: I83.813 Varicose veins of bilateral lower extremities with pain (principal)
CPT/HCPCS: 36466

== ENCOUNTER 2024-02-24 09:41 | Outpatient (OUT) | payer OTHER, SELFPAY ==
--- NOTE | 2024-02-24 07:30 | VEINCLINIC_ITS ---
Vital Signs 02/24/24 07:31 Height 5 ft 11 in Weight 172 kg BMI 52.9 Varicose Veins Patient in today for follow up ultrasound post microfoam chemical ablation left leg. Augusto Monsalve MD personally performed the services described in this documentation, as scribed by Danya Holt RVT, RDMS in my presence and it is both accurate and complete. Danya Monsalve RVT, RDMS, am scribing for, and in the presence of, Dr. Augusto Mensah and in the presence of the patient. thigh: bilateral, knee: bilateral, calf: bilateral, ankle: bilateral and [place]: bilateral cramping, dull, sharp and tender 8 4 years Worsened in recent months: Yes standing analgesics (Tylenol), bed rest, elevating extremities and compression stockings Reports muscle spasms of leg, edema, leg edema and other (ulceration) History of lower extremity trauma: No Superficial thrombophlebitis: No Family history of varicose veins: unknown Has patient had previous lower extremity venous surgery: No Patient has previously received the following treatment(s) for lower extremity varicose veins: Reports none Does patient have a history of : not applicable Does patient intend to have future pregnancies: not applicable Has patient had lower extremity venous scan with relux testing: Yes Support hose used: Yes Problems walking or doing physical activity: Yes How does it affect you: Compromised work d/t having to take multiple breaks throughout the day. Do you walk much: Yes Do you stand much: Yes Review of Systems ROS Narrative Augusto Monsalve MD personally performed the services described in this documentation, as scribed by Danya Holt RVT, RDMS in my presence and it is both accurate and complete. Danya Monsalve RVT, RDMS, am scribing for, and in the presence of, Dr. Augusto Mensah and in the presence of the patient. Status of ROS 10 or more systems reviewed and unremark able except as noted in history and below Cardiovascular Reports: edema, swelling of feet/ankles and leg pain with exertion Musculoskeletal Reports: extremity pain and extremity swelling Integumentary/Breast Reports: redness, new lesion, non-healing lesion and changes in skin color [facility] Medical History (Updated 02/24/24 @ 07:35 by Danya Holt) Phlebitis and thrombophlebitis of superficial vessels of left lower extremity ?I80.02 - Phlebitis and thrombophlebitis of superficial vessels of left lower extremity (ICD-10) Phlebitis and thrombophlebitis of superficial vessels of right lower extremity ?I80.01 - Phlebitis and thrombophlebitis of superficial vessels of right lower extremity (ICD-10) Pain due to varicose veins of both lower extremities ?I83.813 - Varicose veins of bilateral lower extremities with pain (ICD-10) Chronic venous hypertension ?I87.309 - Chronic venous hypertension (idiopathic) without complications of unspecified lower extremity (ICD-10) Venous 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 veins ?I83.019 - Varicose veins of right lower extremity with ulcer of unspecified site (ICD-10) ?I83.029 - Varicose veins of left lower extremity with ulcer of unspecified site (ICD-10) ?L97.919 - Non-pressure chronic ulcer of unspecified part of right lower leg with unspecified severity (ICD-10) ?L97.929 - Non-pressure chronic ulcer of unspecified part of left lower leg with unspecified severity (ICD-10) Surgical History (Updated 02/16/24 @ 14:22 by Alex Rankin) S/P sclerotherapy of varicose veins ?Z98.890 - Other specified postprocedural states (ICD-10) ?Z86.79 - Personal history of other diseases of the circulatory system (ICD- 10) History of hernia repair ?Z98.890 - Other specified postprocedural states (ICD-10) ?Z87.19 - Personal history of other diseases of the digestive system (ICD-10) History of cholecystectomy ?Z90.49 - Acquired absence of other specified parts of digestive tract (ICD- 10) Family History (Updated 12/14/23 @ 09:46 by Danya Holt) Other Family history not known due to adoption Social History (Updated 12/14/23 @ 09:47 by Danya Holt) Within the past year, how often did you have a drink containing alcohol: monthly or less Smoking status: Never smoker Non-prescribed substance use: denies use Meds Home Medications and Allergies Home Medications ?Medication ?Instructions ?Recorded ?Confirmed ?Type Fabuxostat 12/14/23 History buspirone 5 mg tablet 5 mg PO BID 12/14/23 12/14/23 History calcium phosphate,dibasic 77 tab PO 12/14/23 History mg-vitamin D3 400 unit tablet dulaglutide 0.75 mg/0.5 mL 0.75 mg subcut QWEEK 12/14/23 12/14/23 History subcutaneous pen injector (Trulicity) ferrous sulfate 325 mg (65 mg 325 mg PO DAILY 12/14/23 12/14/23 History iron) tablet (Feosol) losartan 100 mg tablet 100 mg PO DAILY 12/14/23 12/14/23 History melatonin 5 mg capsule mg 12/14/23 History omeprazole 20 mg capsule,delayed 20 mg PO DAILY 12/14/23 12/14/23 History release trazodone 50 mg tablet 25 mg PO DAILY 12/14/23 12/14/23 History Allergies Allergy/AdvReac Type Severity Reaction Status Date / Time bupropion [From Wellbutrin] Allergy Unknown Verified 11/04/23 14:41 Exam Narrative Exam Narrative: IAugusto MD personally performed the services described in this documentation, as scribed by Danya Holt RVT, RDMS in my presence and it is both accurate and complete. IDanya RVT, RDMS, am scribing for, and in the presence of, Dr. Augusto Mensah and in the presence of the patient. Constitutional Documenting provider has reviewed patient's vital signs: yes Common normals: oriented x3 Lymph Lymphatic: no lymphedema noted Cardio Common normals: regular rate Rate: regular rate Peripheral pulses: posterior tibial pulses present and dorsalis pedis pulses present Extremity Common normals: normal capillary refill General: calf tenderness and edema Right lower extremity: upper leg and lower leg Left lower extremity: upper leg and lower leg Neuro Common normals: oriented x3 Results Imaging Venous US: Radiologist's impression: The ultrasound demonstrates Varithena induced thrombus visualized at mid/med calf and prox/med calf. Assessment and Plan Assessment and Plan (1) Phlebitis and thrombophlebitis of superficial vessels of left lower extre mity: Plan Patient in today for follow up ultrasound of lower extremity following treatment of Varithena/microfoam completed on 02/16/24.
[2024-02-24 07:31] VITALS: BMI 52.9
--- NOTE | 2024-02-24 07:38 | W.VEIN ---
Discharge Plan Discharge Disposition: Home, Self-Care Plan of Treatment: The patient is currently done with treatment and will call and return if any new problems or symptoms occur. Print Language: Frisian Discharge Date/Time: 02/24/24 10:49
--- NOTE | 2024-02-24 09:41 | VEIN_ITS ---
Patient Name: DAVI MCCULLOUGH MR#: [id number] : 1980 Exam Date: 02/24/2024 Ordering Doctor: DR AUGUSTO MENSAH M.D. RADIOLOGY REPORT PROCEDURE: [facility] EST L[facility]IN [facility] - OFFICE VISIT FOLLOW UP COMPARISON: [facility] EST LMTD, 01/26/2024. [facility] EST LMTD, 01/11/2024. PROGRESS NOTES: The patient reports no problems following micro foam chemical ablation of left leg incompetent varicose veins. The patient did wear his compression stockings. The patient continues to exercise and lose weight. The patient did not require oral analgesics. Physical exam demonstrates mild bilateral subcutaneous edema below the knees, significantly improved from his initial presenting exam. Significant reduction in skin thickening. No residual varicose veins, reticular or spider veins are noted. Review of the ultrasound performed the same day demonstrates occlusive thrombus extending throughout the treated left leg varicose veins with no deep vein thrombus observed. No residual varicose veins are identified The patient treatments are now complete. The patient was instructed to continue to wear knee or thigh-high 20-30 mm compression stockings to control his swelling and reduce recurrence of venous insufficiency VEIN/[facility] EST LMTD IMPRESSION: 1. Successful ablation treated left leg varicose veins 2. Treatment plan is complete PLAN: 1. Follow up as needed Nurse notes, history and physical were reviewed and confirmed, see attached forms. The nurse was present throughout the physical exam and consultation Dictated by: Augusto Mensah MD on 02/24/2024 at 10:40 Approved by: Augusto Mensah MD on 02/24/2024 at 10:42
--- NOTE | 2024-02-24 09:41 | VEIN_ITS ---
Patient Name: DAVI MCCULLOUGH MR#: [id number] : 1980 Exam Date: 02/24/2024 Ordering Doctor: DR AUGUSTO MENSAH M.D. RADIOLOGY REPORT PROCEDURE: VC EXT VENOUS LT LIMITED COMPARISON: VC EXT VENOUS LT LIMITED, 11/17/2023. VC EXT VENOUS LT LIMITED, 09/29/2023. INDICATIONS: I80.02 - Phlebitis and thrombophlebitis of superficial ve... TECHNIQUE: Lower extremity ordaz scale and Duplex Doppler evaluation of the deep venous system from the inguinal ligament through the calf veins. FINDINGS: REGION: Left lower extremity. THROMBI: Negative for DVT. Varithena induced thrombus visualized at dost/ant calf and prox/med calf. COMPRESSIBILITY: Non-compressible segments corresponding to thrombus FLOW: Areas of no flow corresponding to thrombus OTHER: No patent varicose veins remain. CONCLUSION: Post ablation occlusion of treated varicose veins. No residual varicose veins remain Dictated by: Augusto Mensah MD on 02/24/2024 at 10:33 Approved by: Augusto Mensah MD on 02/24/2024 at 10:39
--- OUTSIDE RECORDS SUMMARY | 2024-02-24 09:56 | XMS_ITS | CCD ---
Author Organization [facility] Care Team Providers Care Hay Farmer Name Role Phone Antoine Alcazar Unavailable [phone] SAM CROW Attending Unavailable Kastor BOILER HOUSE INSPECTOR DROSS PULLER-C, Mary Harris Admitting Unavai lable Kastor BOILER HOUSE INSPECTOR DROSS PULLER-C, Mary Harris Attending Iraidai liane Kastor BOILER HOUSE INSPECTOR DROSS PULLER-C, Mary C Primary Care KAMI Moon Attending Unavailable KAMI Hummel Admitting Unavailable Kastor BOILER HOUSE INSPECTOR DROSS PULLER-C, Mary Harris Primary Care UnavaJhonny Morrow Attending Unavailable Jhonny Hernandez Admitting Unavailable Kastor BOILER HOUSE INSPECTOR DROSS PULLER-C, Mary C Primary Care Reno Soares Admitting Unavaila Reno Carias Attending Unavaila ble Provider, None Primary Care Unavailable KAMI Hummel Attending Unavailable KAMI Hummel Admitting Unavailable Kastor BOILER HOUSE INSPECTOR DROSS PULLER-C, Mary Harris Primary Care KAMI Moon Attending Unavailable KAMI Hummel Admitting Unavailable Kastor BOILER HOUSE INSPECTOR DROSS PULLER-C, Mary C Primary Care KAMI Moon Admitting Unavailable Kastor BOILER HOUSE INSPECTOR DROSS PULLER-C, Mary C Primary Care KAMI Moon Attending Unavailable KAMI Hummel Attending Unavailable KAMI Hummel Admitting Unavailable Kastor BOILER HOUSE INSPECTOR DROSS PULLER-C, Mary C Primary Care Unavai labKareem Sims Admitting Unavailable Kareem Sanchez Attending Unavailable Provider, None Primary Care Unavailable Provider, Unlisted Primary Care Unavailable Marika Tavares CNP Admitting Marika Carroll CNP Attending KAMI Geller Admitting Unavailable KAMI Hummel Attending Unavailable Carlos DE DIOSP-C, Mary Steven Primary Care KAMI Moon Attending Unavailable KAMI Hummel Admitting [facility]available [facility], Mary Steven Primary Care KAMI Moon Admitting Unavailable Kastor ITFFANY DE DIOSP-C, Mary C Primary Care KAMI Moon Attending Unavailable Rashid Rojas Attending Unavailab Rashid Solomon Admitting Unavailab kiarra ROBERT FAMILY, PHYSICIAN Primary Care Unavailable Allergies Allergy Classification Reported Allergen(s) Allergy Type Date of Onset Reaction(s) Facility (6 sources) buPROPion; Translations: [BUPROPION HCL] Drug Allergy 10-25-2016 [facility] (1 source) buPROPion; Translations: [Wellbutrin] Drug Allergy [facility] Repository (1 source) buPROPion Drug Allergy 02-01-2019 [facility] Repository Medications Completed/Discontinued Medications Medication [...] mL pen injector famotidine/Ca carb/mag hydrox (ACID DEPUTY DIRECTOR OF FINANCE COMPLETE, FAMOT, ORAL) (5 sources) take 1 tablet by mouth twice daily famotidine/Ca carb/mag hydrox (ACID DEPUTY DIRECTOR OF FINANCE COMPLETE, FAMOT, ORAL) Take 1 tablet by [...] on above: Take 10 mg by mouth. fe-csp-wzleu acid-lutein (CENTRUM SILVER) 400-250 mcg chew (5 sources) take 1 tablet by mouth once daily ak-xiw-rvdmo acid-lutein (CENTRUM SILVER) 400-250 mcg chew Take [...] on above: Take 1,000 mcg by mo [facility] once daily. Problems Active Problems Problem Classification [...] Coding Summaryon 09-27-2023 Coding Summary HTMLBase 64 CjfxfdloVJj0qXl+PGhlYWQ +FU4OIRXaZ91kaXIlqV2hD1 NMTElOSywgQVBQTElOSyIgb zHxJS1nnEDfAZBc IC8+FY6qMGOyKjvttIPsu7F 6tEA5C21biz6wVOjonCB2DD PlLwDblmoyx8mthLs4PCgsZ mluOyBt KTJzbK43FTZ5wL52Bd89cAH vaQTxp1zexUx6TzTgCYKhKC J6pNofNSiop1XmDROsJ15uf IHvu3A9 WCAfdTlauELoNgEqoGL6kE6 fLLvaapaoq8cmhlxgXlk1rt 48lVPdq0Z8nVG9S3QgqfO8H GJvbGQg UtrzePGRjV0cklbfg9kmikn hZqYyGMTjWKw1XWn7GRPhrO iiCyTpUE55CLK7JCBzrtIsF 2FsLWFs mWdzNgI8s7X7Qw4FH9ANUnt bE3ZHYNPWWUrgzHZ+PC90cj 22Y4CcEtmtBds8RNEsCMY3n UA6tV1o EWJfJKeht9T5wRM2Z3WbunX yjx8yn5leVIQhSYpcL00viF Ifj8P5DSRhkQF9SALntAjsC iBzaG93 Oyc+NVMigOlnr5DiXmvis6g fe2ylbBd2FvihUUSiefUkyR ogCIA3r6JuUo2dIZLvxAC4r TU2uL8q BoPqXfD7AQcsH852WgNqmUH sWxbkP87dU0JhrDC+PHRyPj e3PLDzzOqbSL0gJ5PbZWKzp mctbGVm sUtwPM4iCDBcyjhmAYCvrY2 hAWTmC9m8RpPaCfX6WParF9 YcOCVwmpnhWq66lB4gCsSxE uE5XYrn C4TvvrR9SKOgaCZtGRjrIGQ 9U58st8X2UKGeHVGtIYS5vR R0oU9toXjrbzhwdVBkoHfxh mVydGlj IJfjGXuvR820CLSxhKunDrS vZGluZyBEYXRlOiAgMDQvMj MvMjAyNDwvdGQ+QZMyVMH5u WxlPSAn mYLgSFphDe2agFmuyOoiRR5 xTQOaffrvTVOlvV6uICIqkK QgyJljNG5kJZWwxrhec473V iAxMHB0 RIZhjEUhR4EexA6rTfEaEOJ cSIBeQ4OmuDAlTLylT862ZM ptLkT8CEDjkrJsU9OkRWUsi WduOiB0 l0E1Js2Bg0WfshpiB1EbrNB gRiBkFfwhYXj5O1PnUskjeS I+WS88NZKmZI03TTw3SUX1a WxlPSdi MGXkW3IbuO3mSdFzHQGwKPI kOyc+PHRhYmxlIHdpZHRoPS hwDYJxFoVpwFrvOU9qTe1jA GVyLWNv lWstrEGyXpPul9agWMYlTLa tZZ4ueYmdD5OwxEI6RDXsr1 v6Lc80U42uO2RwpVF+PGNvb JQ1oDX6 aR5dZfFaFcV6LPumK484YsV pfRMhOiszr8njt5thcIw0Tk A5PTOirlUyaSnbCWT2a9AlA m36I06m IHdpZHRoPSIxNSUiIHZhbGl jlj6huM8uUx0+CPLuiQF2yB H0zX2vBrNmSyH7KUnlF954W nRvcCIv Rvvlr3noo6kebFb8XlLvWSL qrfRvdPnlUJS8z5KhYg55W8 HjeVbjc8PcBin5bd23nLJje 6C2wHR7 B7ReDYMtssalmOCdoMzhNP5 kYBUczlgvVUIlwN0aKSTtD1 j7DoLuZtI3XWxhW4PxizT4K GJvbGQg IRSifKUOpI2biulpr1poykr dArMnPHJsVSa9BLr6SEXlqB lbYsBfAET4CmT7EVN5dPZek N2xyYqo nyuxfA3aGrk+OZH8sQOjrIV YBV1fWnpxyWO+VJHbXTW3wR ulOFgqFXZnrJ0lLSMnS6g7M iAwLjA1 VGuvW4BnoxO4MOLzqYVqQCW krMTPvG2ndgsdg0epbcuhYt MlHLSjHWo3AMj2AOAvdUaiI iBsZWZ0 NhF7WJA8kIWhsP8wzIxearu hjB2aFtj+KloloSzsWNN5HO p1P5CaNmd8WXTboEucKO3mi GFkZGlu Yy0ngVryyZyyWE1pTKJjbwu ec912MpCpt5dkTCInwROhBF qxSCA2J33qn8X1PUNnULHnH GF8jKJ1 bQ8wyDznylwicKXayBmbepR pdRehEOekCLodC307HMLqiO uvTmHkCQc1W9QgQyr6MSTvx IwgXR7l oLDvKOklYs8gfFevtNuyHP2 qPHPhlfhif742TkHpc9dnIT JdhMRkDEwaGGX4V34ac0N3W CMwMDAw HUM1tOR8tM1fbXwfgyhjxPU mdDsgdmVydGljYWwtYWxpZ2 11ZXAmkIekOnGxgBg0Q9SrY ye2KPNr aHnlOY2ytAWmTYgiHv6xiLz kwOjhHP3iGGYlnnrzp222Tm Igh4nwYLAjlEFfNEvgNIR4G 61bj1L4 PKHdJRVzJTI1hZV0iO8chZt nbjogbGVmdDsgdmVydGljYW unBWryR255IJSdiOprGcUip GllbnQg BPamYFc1Y6UxTcybyCT+PC9 2COAdBS23vBPmiOHzf5wgzH h5DbCfWADxRRI8eExiTVxfe 3JkZXIt Z35clZIyb4Q2PXRybAlnvBN jJsSqqCX3iU7sSTwqjtvba7 zepjsxUmemc2nmxa23uU32M 29sIHdp ZHRoPSIzMCUiIHZhbGlnbj0 xnB0qUi6+MDWakPK2yQI2wA 0dGHQlRjC9RTlrF598BlOfu CIvPjxj e2gzk1jxiAm3LtH2XMIybzK mfUbmFCD7w1FrMd93A13jVY dpZHRoPSIyMCUiIHZhbGlnb j6qxQ9e Ii8+PQWjmMC2wEC6gC0pQzH bXwL2NLvpU396JdVbgPUaAo weE39jJ0VudOI+TRVzRso1M CBzdHls GJ1auJGnEFzqDk6sTSM5PvT vRySkOSkuU2WfNBLkediprc mnkKW3BCTvREFhwF44Wy9wh DogMTBw zODZcG5wpelej0jhmthbRjX rWDHlDOy0TDl8FQCqpKulYx UkCIW1YmG9PXH8oZDfbF1av Glnbjog rR6bT9AyYQBwfiitOj24wJ0 eTmCcUbR0YNepObi+U0FNUy wgQUxFWEFOREVSIExFRTwvd GQ+PHRk ZGV2xSluQXthYQExsZ3wXLY xT6i1KnXbXtA5DNfwP5PeWB HrflfqSc00jR9oScIxTlG3R XayF4Cs deN7VZXacVDoAXhiFYK6W56 ym8I1ZDCgBCFvFIK6zWS2qJ 1hbGlnbjogbGVmdDsgdmVyd GljYWwt GItzT054WXRbhAfjCkViSuY 9PvT2Vci3Q4IlRwu9JLXmoQ kcMR3ciZUsXDkaJx3jjCseo JzoQX1i WIKivojrWHTxpR2fUWEazZL jfAbnKK4bOOKsxelip423Xj NbAPC4VGQwfEMtJ8JfnI0fC iAjMDAw VLFeW3YqrVQgHCijV297MKt yQwC7OGWlnjKlM8TtWUYxaR sjDsH2n3F3Jp62WIFENWGye zwvdGQ+ PHGfMZP4zGxxAKllXHXzhB1 wYSAxN9u4KfTmHjZ4MImdU8 ZfOJLxajsyQx18yU4tXqZbJ cS1UYzl H4VtwmR0TYDwvNGmYUgsJQR 9K54io8B6NBWqGHRxOER9qF B5uW1lbFhtyawizHJrpGsqi mVydGlj IAsyXSuqD301JICfmGovCc3 DZLJ3S7OfTea4YIUbuHssWE 5onSUcQIhlEy0seQbahXqhI N7cWXDg hwkaIAIneK3hWKFkhQWlqKi fYU7pIEOnpqace292ToOaFO G3FKYggGSiK9NvnX5aRvMfL DAwMDAw A7KhnGRkAKhxT356IPudNnF 9ZORmplBuM7CrKSLmxRtdFs Z4d6J0Dv5NJFclsGP+PC90c r39W9Po OgrcMvi4VIGiLVM4fYN6iJ9 xLXWiDYwhe2W3uDD4K2Dsmi Nelr2cc5eeMAXeZQfhT20gb OTfe8U5 TZJbsDC0ROAnhVwxKcBvgB1 3Oyc+SFZqcDirs6PwZqewn0 ygv2gmvZh7VeTlNAOeqvQkz WduPSJ0 c8UmDl00Q68aASozDEMzIIR aDVFgSCJtnBayxw8vnO2fZf 8+BAWqxIM5gEO5zA0uOtZrC lM6KGhg U410BjQfuHTzYhxkp0ryi8i vbJx0GuVnYSAtagOjkBcuLI V6f2HtOj09M2XjuIhca1DeR he8cu66 rCVtp4V8eVD8C4NjPQUmlvd vvQTdwWpsCA5wQBBosqzoCJ SrzA1pZLGmS7b0RpFhVzE3G RhcH7Qq apI4PWAavJYmZBUenLMPlB0 ugjsgg6oouewoTbMtAFFdRG l0BNq9LGDsiTgyDaWbODT3X uC3IJE2 dTUahY9lmCiknibgkE0iVdy +GXx4q5gpwUCoSP1wwIM4RG 40QT97gDEzx0A1uCL7S0WqR GRpbmct nfjrdTN6IDXaVYImqM44Bz7 rgIsxEe7jAWObBNT9RAFvhR TnN4ZziO1yEkBzHPMpEGPfD 3RleHQt YQlmZ190OPsbVgU6SSKacvV cA0WfYQKpnIcrMwY7c2P9Lq 7QZU61VH70UX34uGQnh4F9i XN4R7Lp YICatmptwvbyrVR0AWSsEBV utQ15Rp1ocMwwSz3jCHOtMI T4RYQorZOqI7CwyP5aMxZdK DAwMDAw B5XldAQkKCpzB480RSjuKiG 2OYApmoRuA7PeQISylJwrGv J4p7L3Cw7VIi97QD38TT42j PEab2M5 yQK3Q2QhZMMrehkcvnhgyPZ 3EQWkOYRylG41Cp7ysHjyGr 7wBSWhXPI3ZMBqfSDyZ6Ngm B7fZpRi KLSiTWZhH2GqpNMqZZtsJ32 7RPtsVoW0OSRwiiQlN9KxNF BtpVpqLgN1d0K7Pt3AQMzvc if4A4Tg PjwvdHI+JN73PVPwYQ77aDO kxLZyh5pbfDr9YiUtUZPuTV W1tSgiHOije2JeKNFbM64sz RJru0T3 IGN (more content not included)... Normal [facility] ED Clinical Summaryon 2023 ED Clinical Summary [facility] ? Urgent Care [address] [place] [address] Clinical Summary PERSON INFORMATION Name: SPIKE NIELSEN Age: 43 Years Sex: MALE : 1980 MRN: Acct#: Visit Reason: Sinus Pain/Congestion; Body aches; SINUS PRESSURE/DRIANAGE, BODY ACHES, ABD PAIN, CONGESTION Arrival: 09/14/2023 11:11:56 Discharge: 09/14/2023 11:45:00 LOS: 000 00:34 Check In: 09/14/2023 11:11:56 Checkout: 09/14/2023 11:45:00 Address: [address] [facility] [address] PCP: Mary Perla APRN PROVIDER INFORMATION Provider Role Assigned Unassigned Marika Oliva WET TRIMMER Nurse 09/14/2023 11:13:30 Brennen FerroC ED PA 09/14/2023 11:29:53 VITALS INFORMATION Vital Sign Triage Latest Temperature Tympanic Temperature Temporal Artery Pulse Rate O2 Sat 94 % 94 % Respiratory Rate Blood Pressure /72 mmHg /72 mmHg MEDICAL INFORMATION Medications Given: Allergy Information: Wellbutrin PHYSICIAN DOCUMENTATION DISCHARGE INFORMATION: Discharge Disposition: Home Discharge Location: Home PATIENT EDUCATION INFORMATION Instructions: Influenza, Adult, Mysp-au-Anas Follow-Up: With: Address: When: [place] [address] [facility] (1) Within 5 to 7 days DIAGNOSIS: Influenza A Patient Understands: Yes - Patient/family/caregive r verbalizes understanding of instructions given Comment: Normal [facility] ED Patient Summaryon 024 ED Patient Summary [facility] ? Urgent Care [address] [id number] PATIENT DISCHARGE INSTRUCTIONS Patient Information Name: SPIKE NIELSEN Age: 43 Years Date of : 1980 Reason For Visit: Sinus Pain/Congestion; Body aches; SINUS PRESSURE/DRIANAGE, BODY ACHES, ABD PAIN, CONGESTION Arrival Time: 09/14/2023 11:11:56 Primary Care Physician: Mary Perla APRN Attending Physician: Cassidy Hummel PA-C Comment: Patient Education With: Address: When: Mary Gonzalez [address] [place] [id number] [facility] (1) Within 5 [...] doctor may want you to: ? Take drmn-dmv-fxgpcbh medicines. ? Drink plenty of fluids. The [...] Applesauce. ? Rice. ? Lean meats. ? [place]. ? Crackers. ? Do not eat or drink: ? Fluids that have a lot of sugar or caffeine. ? Alcohol. ? Spicy or fatty foods. General instructions ? Take ybci-bng-vgetrlp and prescription medicines only as told by [...] use soap and water, use alcohol-based hand lay out drafter. ? Keep all follow-up visits. How is [...] have mo (more content not included)... Normal [facility] POCT Rapid CoV-2 (COVID-19) Antigen/ Flu A&Bon 09-14-2023 Influenza A POCT Positive Abnormal Negative [facility] Comment on above: Performed By: #### 8 [id number] ####[facility] (DEFAULT)[address] [place] [address] Influenza B POCT Negative Normal Negative [facility] Comment on above: Performed By: #### 5 [id number] ####[facility] (DEFAULT)[address] [place] [address] SARS-CoV-2 (COVID-19) RNA IZABELLA+probe Ql (Unsp spec) Not detected Normal [facility] Comment on above: Performed By: #### 2 [id number] ####[facility] (DEFAULT)[address] [place] [address] Urgent Care Note- Provideron 09-14-2023 Urgent Care [...] 1-2 times per year Other Comment: POB: [place] - 02/26/2019 15:28 - Carmen Jama Substance [...] needed. Impression and Plan Diagnosis Influenza A (QUP83-FW J10.1, Discharge, Medical) Plan Condition: Stable. Disposition: Discharged: Time 09/14/2023 11:52:00, to home. Prescriptions: Launch prescriptions Pharm (more content not included)... Normal [facility] [place] 024 Urgent Care Record [facility] ? Urgent Care [address] [place] [address] PATIENT DISCHARGE INSTRUCTIONS Patient Information Name: SPIKE NIELSEN Age: 43 Years Date of : 1980 Reason For Visit: Sinus Pain/Congestion; Body aches; SINUS PRESSURE/DRIANAGE, BODY ACHES, ABD PAIN, CONGESTION Arrival Time: 09/14/2023 11:11:56 Primary Care Physician: Mary Perla APRN Attending Physician: Cassidy Hummel PA-C Comment: Visit Diagnosis: Diagnoses This Visit Body aches ([id number]) Influenza A (J10.1) Sinus Pain/Congestion ([id number]) If you received any narcotics, sedation, or [...] legal documents With: Address: When: Mary Gonzalez [address] [place], [place] [id number] Business (1) Within 5 to 7 days Medication Information: The exam and treatment you received today in the [facility] were for an urgent problem and are not intended as complete care. It is important for you to follow up with a doctor, nurse practitioner, or physician?s purchasing assistant for ongoing care. If your symptoms [...] so we can reach you if necessary. [facility] has provided you with a complete list of medications post discharge. Please inform your retail pharmacist/provider of your visit and for further instruction on these medications. Any specific questions regarding your chronic medications and dosages should be discussed with your primary care physician(s) and/or pharmacist. New Medications [facility], [address] [place], [place] [id number], [phone] benzonatate (benzonatate 200 mg oral capsule) 1 [...] kg Body M (more content not included)... [facility] Coding Summaryon 08-24-2023 Coding Summary HTMLBase 64 YxibmhwuVUa1gEa+PGhlYWQ +XY5XOTXtY41keCStuH1sU1 NMTElOSywgQVBQTElOSyIgb xRlIZ9peRKcEZIw IC8+JS8pINTyYilhfNEgd1J 9dMM9L37hzy9zJXttaYR9AC VtToTzegofi9uqsVq1FOsmA mluOyBt MUBdhG03DRQ2uH26Dj80lHS gwXWma7zzjPj7ZrFnJAZiGA V2zBmwJBdej3ScMAIuO61yf VIdc3Y0 LMSzyJurpSYwRjMjdYI5xI3 jZVigosjjl1mvryeiCfg0ut 12vIFlj4Y7iFF6K6GkqkS7U GJvbGQg IyqeqXYEeL9lrtdpn7bliar vCwNtFJAiGXl5ITr1XIKaeJ qcYlSmVL06DBI5DDPxcvJnF 2FsLWFs aLpjWmY7m2Y9Fx8AJ6HWTne gP3VXYFIVFJdpdGC+PC90cj 93A5BtFpxaRig9SAPfGBP8p AL3pL3a GMEeYSbsh2Z9eXZ1A9AxrnG tjd1jd8ehLXAqJVirU00nqB Xvh3H4XNGwcBY3PUJiaMtwD iBzaG93 Oyc+YIEanDtob7VmPunrc2y pi3ktaQn3MdyxHPWqlaDfqY zaRBR1e0MqKv3fZBSdaQZ7r FZ8dN7m RzDzKqO1IJwuC005NkQsrHW hHvdlE02fX7GfiPL+PHRyPj q9JCLlgRapYX7dX1ZnZJAsr mctbGVm qPfkSB8tVHTovsglCMKzlY1 uYXXlB7j6MnSzSsS9VLmdB7 VkJRQptlyzQk58zU5lOeVfE qY0IScv M8DpunY5NAAuoDOhIZglNIR 2R84cz2S4FIDaGMAcNFU5fP Z1tF8abGachgerkWRlnKfjq mVydGlj FLadIBqrB085KBYogIgkApI vZGluZyBEYXRlOiAgMDMvMj AvMjAyNDwvdGQ+OYPxSIK4b WxlPSAn fXOhZUtqYy5ixEiqkSxrUW0 zDCTnnkbeFXLlvK5lBUHreB TxaDulGY4cRRFytxsxq572T iAxMHB0 LHKjdQFtM8UwcI5hYqGnVIA eYZAhW3JobBPwEGpuH224YB yoVaE2ERYsvbVdQ2FgFFFit WduOiB0 v4T0Ql1Jv9RaoawgV3KftCR cAoYnLyasXAs8O5ExFfjjbE I+JV28BJCrWZ78SMe5BVH3f WxlPSdi CVOuB8AjrW0sGyNbMWWtMHC kOyc+PHRhYmxlIHdpZHRoPS bfSIClYoMhfCevLH1yCm7rS GVyLWNv bCvlfFQqFpNmr5mfGOWdMHz zEB5ayFhwV6NxcOP3PQSdo1 v4Ml90Y54jI2HweNJ+PGNvb QB2pLZ9 rE9sSpHaChU1QZckZ133ZpO fxIJnKkzyi7sfb3ljqZa2Dy D6FAIlgbTapJrhPLB9a0JnZ h16S86z IHdpZHRoPSIxNSUiIHZhbGl gih1qbH7hWp4+DLDwzYF7sK O0hB4fZkThIkJ2EHroO497W nRvcCIv Kvqpe5bba5ccxGk7EfNrKOW cisPzvYftNGF2y7NmCy36K2 JbzNbec6PyVai8dx42qMMzs 0T4bUC9 M2LjMWPkpmgmiHYglAicWS3 hKONevxifMDFbzQ5eJITdD1 c3JxFlKgQ3PTqkA1GjkgK2M GJvbGQg GWElsKRIyG7uftmvo4kxeoa zOgUaLWQsVBa5ITg3QYFbzW aaFqMrUTE5RiO2EGC2zPVvp P4yeEwf lxsgiW6sSxh+HGA0wKYewBH OXS5sAdxlbGX+VKHrDLT4aF jtXCjxDKBjgF6jTQLmS0y3A iAwLjA1 HSfzD7KhxbZ0RMWgbOAsMSQ ybNSGbM4qjzwpk1cbsypeSe FjSXJiQTx3HEa6BCBpmDanX iBsZWZ0 DeC9QON7jVKdhS6hcMofwdv tvX7gJza+AcjbyGgoKIM8FZ p2A6AxYsg0UMEnnFlzXV4gl GFkZGlu Ev5egRykfWwxYD5xVCRtnhc wa284DkVow0zqJRZelVGfLD nxBNH2M74zp9J1IJAtMCOjK XY6tRH5 oH0pqKachnquvLLwdFwfejZ whQugKMbzRUbgK858WQEglC mfWzRtTUc3L6FlGcx7ALNmy XtfMA1k dRKzGNciPf3zqSjjvNvlQJ4 tAZUenomuv774MqSwd3ynOO UoqCGcXJnvYFW0D20br3G6X CMwMDAw OIY9cOZ8pQ7kmKsohuwxcJK mdDsgdmVydGljYWwtYWxpZ2 62YCNcxZtiYnZugPg9U3HmW br4VZEy bDpyGL8kgKZrWVptRb1pgLc crOnrGS7iFBAmhlbja920Ih Sqe2erHNBifMHzJDpbCIQ8Q 75sh4C3 UNGiLFWsGGS9cHE2lP2sgOb nbjogbGVmdDsgdmVydGljYW fhEPchC862ISEsbWgsVrCwn GllbnQg UGkmYXq7F7FmUtdwmZQ+PC9 3NIRcIZ57vTOrsFSjt3efeQ s5UqBvUVPtFTA2uFdsQXtee 3JkZXIt C28pqERgs1O4VWCmkZzsvOG iYzNmbKC5fU3oJOykcnmne1 fymaoySacdg9lgfy12gI77H 29sIHdp ZHRoPSIzMCUiIHZhbGlnbj0 klB8eAw6+YJMnoCD2nUL7qW 5qAJIhZtD7WXygN933GzMtc CIvPjxj m4jyu3gpxBg8RkE3TVNfsrW ivRhzTPX0b5AlNy08P95nMM dpZHRoPSIyMCUiIHZhbGlnb r2efG9m Ii8+OZDxmBZ7cAI0lV0nFdQ vScI1CPyhJ855AfRzdOBgRc wtF62aR0LeyIS+NOIiZwe9Y CBzdHls GF0ywMMuFWxhCw3bELU0NwE jPqNkMJtxQ3UcSDCtrbuaxg avmWV5XFWrXTOojO76Xl4ff DogMTBw fMLFhB0zavfkd5wbrwlbKdA xMUDpMSf0THy8NHXlwOjjVk DyCIV5HiK2RLM2mKOvyQ5vs Glnbjog tJ8iA3PrFBEzdynjRp94sD4 uVkGdQtD3SAhtIbk+U0FNUy wgQUxFWEFOREVSIExFRTwvd GQ+PHRk KMM6oSfiZGsoENHglV8sVMK fV1x7NaUqVvV0PXwbB8IoXS TyxxieAj38aH8bWhEaBhU1A JqoF7Pt qfT1ECRklCTgPRhtEMP5D37 ru7T1FDWyNKWaTCV6tKM4tJ 1hbGlnbjogbGVmdDsgdmVyd GljYWwt DQrwZ662BQIyjVtzVjJcWpV 6JmB7Bne4Y7NvAun6DNTqoJ qmPJ7wsVNrJVdqGp5acPufg SfuXM2b BNTlunjkEGQpvH5wJRZfxVA mhEswAU0aDTSemyavt144Go UdCUZ0MRUbtABgX7WnsY9aP iAjMDAw FSLmU0UkmBEmGStvX562QKf wVoZ8DVAwqrQtJ7IlTEXwbG ihSlR6c1C2Un78ZOUPPZNzp zwvdGQ+ LDDlSPL2xFgvTTftXQKwfE4 qZSMnS9t4YkExGwV8TNrxY4 QsTECwhydfRn17rL3bPfRfN hM0OUqb D5HrqnV2ZUKbmCLmJCxzKST 9C03zr6H2HEDhIAFwNPM5jM F5eO9ykVrbteppxANkyQodp mVydGlj URioCEqiH928IYSvuMjaAw1 ZPJS3Z6NgKag1OYVixPwhLY 7yyTNsODgnAi7nlMbfiIdtE E3lCPPh rkmrHPPfmF9pAIRtbVEekHh lYC1pBWNwpyaed631BqNzTJ S7LCBeiTIwA6VjbD9nMuVmG DAwMDAw O6XsjHXrVHcbP557EEtzRdQ 7HOQlncCaA2CyBHWjfPepRl G8n9A4Bs5RDKlivOF+PC90c y57W5Gy YaawEdq7HHDcEDY5uII8iQ2 iZLLnILdwo6U9gAC4U4Mimj Xdxy2kd4emDAYqGPtaC27dv QKfr1D2 VSWimDX6PXWmgDvzDaLdgS2 3Oyc+OXIzgWkec8OnJvzrp9 qkf0hffJy7GxGrHFLgaqNng WduPSJ0 y8OgFl50Y97hNPncNAJlQLJ qSXFcIKFlyTrkhw7meB9rQi 8+WWMqwIU3nBU5iX1dThQnN mZ1YVxv Y819MpWytWGqCdvfu9sab1o kxSv5EoNuFTPiqtZgsVgpWQ O0q0NfZw29C0BbpHmos0SgQ md1id17 lFXau0C8fMH1R7TfJUHkgkz kjVYyiJfpSZ5eIJQwkpuvGZ OndU6uBPJyR2q9GzQxJdT8Q JzdA8Kx eoO8KWFniZYzRBWheFGRaP2 egqlao2byxwmpSaXfRSVdYQ n0WWc1KFZvcZmgKaFjZEP7E wJ0KAT0 lQPypX7noQqjpdsguR2cMgw +IHc3v3bbwBAoOW6fpQN8UD 50BO47vITgy9P3ePE7W4HxS GRpbmct rvdivSI2CPMaLRWkmQ47Gb4 toSfxFl3vOBWmZAQ0BHXdhL SjA8RgxH3pBbQhVHSpUAZqE 3RleHQt YHceT316RDggXiA0DMHhvhB bA9UeKMIteJekKqV4t5H1Hp 7ULH96HS45FP15fCUdr0G4e EE1U0Sr POEwikbzrxgizAO8UXUoPQJ wtE99Yu1uxSawMl1pXQMjRA D3TTThiYFgJ1DxwT1sObNcW DAwMDAw G5PenUKoJKzuR227IHbnIjL 6FXEoejUdF0CySRAcuKqmLg K5d7Y7Ca0FFc29ZW23NM51z JVzh8H9 jKH8T2FhZLFimsbpokjdeLI 1SNZbJBNajK11Yd7plPrbRe 8lVASoPAK3UNPpcANnQ9Rbz P6qZiSm EIYvBUWfR1TumMBnDAkuD78 3JWcoSoM6VPVioaJbD5RyMC RmiQpnIjA0z7G0Dt8NZEhte ky4B7Xv PjwvdHI+SJ49JBLiKW43mNY csZSkq4quqYh2MpQdDUKyIC X9mYmrNCwnj9NrXDDgT94cq GBii6J7 IGN (more content not included)... [facility] Testosterone, Serum LCon Testosterone, Serum LC 404 ng/dL Invalid Interpretation Code 264-916 [facility] Comment on above: Result Comment: Adul t male reference interval is based on a population of healthy nonobese males (BMI <30) between 19 and 39 years old. Kaitlin et.al. JCEM 2017,102;0083-1365. PMID: 73415302. Performed At: [facility] [id number] Danish Sebastian PhD Ph:[phone] Performed By: #### 1 [id number] #### [facility] (DEFAULT) [address] [place] [address] Provider Orderson 08-18-2023 Provider Orders [id number] TGTIFF [facility] Coding Summaryon 08-10-2023 Coding Summary HTMLBase 64 SjntpkpnAUw2qZm+PGhlYWQ +MQ3NLMXgV74ojEIxyT4aC0 NMTElOSywgQVBQTElOSyIgb sAbVS6vwSXxQTDi IC8+RZ2eERSxYescdJGhr8Z 1iSO4U50orf3uLNzxlVU8TA FuTwEhzxmkp5ddpPb3EMikN mluOyBt PVXphZ06EXU1mO83Xp67yXC fyMOff7kqbQc3GnQiKREeWV G8xArsQPtkr7UqBKJpG40lw AIwh8Q9 HTKgvGemlFWwFrPtaMK1vQ0 dWFbqzmplc8kpunylJhb4ap 76aBSke4L5vHL0M6HifiF7V GJvbGQg AasgpSRUeP5enayue7puvvx tDpVjSFAeKXv4HRm8TBRniJ fuTbBlRU25PAD1AYYrkfRnF 2FsLWFs bElaGdX2m4M9Yb3OW2QDNvg eJ4CQFROPDLpafLY+PC90cj 77J8BuZtdgJsz4CUQuZJR5o IN2pS4p IJExHRgii1Y2kDK4N6FataP peh2ut9laKQJdUOeoW84ulK Lte6J9MDFvvFY7SYGceVhmG iBzaG93 Oyc+MKTgzVnhr3JgXwwvn9n rn0vqnDu0MwozDWRzfgQhhV isVOU7o0TyMw4iKQXlnLJ3n LV5mG9m WdMmDyA4UVkjS104JeKimZV kVvuwZ23vL2ThfZD+PHRyPj m1PYDzqYvoCM5uC2LaUKGde mctbGVm gTrqTK5qQILwrqcxQWRwqT1 qCUHpU6z8XoXnQdD8EExaJ0 HpKSOqwwwsLs03iQ7kRyQpQ hP7KDrj D7MpybJ6TVCajGNxGVnjOTS 0V84ci5J6QKPoDCFeOLH6jF K8hU7unTrjlgfqdXLjqYagl mVydGlj SQwyGHfjK492GLGboOtqAeL vZGluZyBEYXRlOiAgMDMvMD YvMjAyNDwvdGQ+FELhJNP4t WxlPSAn gOVcVOwiAh4cjWhhbRhkRV2 cZEKxskvlRNWpjK3pEPHgsH TnmWscDL3mUSPxdprvp361M iAxMHB0 JZHhqEKfL5TdbO1cHdWgXXV uIDYgZ7SjoEPcACupW662UB vtYlR6KOKknmWwQ2TgFQCbx WduOiB0 k6S7Fw6Ik5MwspkxB0UruJG bSiEdPcizTFs3Y1KcXglffT I+XO63HWSdIW12XHm4FTM7t WxlPSdi RDXuL0RyeM0lYoKkZZAzYYB kOyc+PHRhYmxlIHdpZHRoPS vfCLFpLqTlmDhbDQ0eMb8yL GVyLWNv jPyzzPIdYuGcf7fwJFGdVOx kHF8raHeeT8GlbSR9DWVtd8 j0Js55P70nH8UkdRK+PGNvb OF1vVP8 fV0eVqDgIaY4KNpmF233KzE rfEYxPeupg9bve4nfnTn9Us Z2LRVewsZpqLhsXMW4z5OmJ l07I48a IHdpZHRoPSIxNSUiIHZhbGl qgc8grV9bEr9+DWKezUP6rW K0pY4tLgOzJoG2ZHnxE545R nRvcCIv Qrkyu4ckb7khtXt6YjBvTTT avuTfnTjiFIS5d8QdTi99C5 AbqXqkc7LpRzi0ms79jHQje 6T9lJV7 H7KnEEIiukjfuWUjyLvbNE8 iIAYienndKDEfnM9bTJWtI9 j9VuQlEtV8ZBzbM1IputR1Q GJvbGQg CNHddAOXlD2zcvvmx4cwdxt uNdNuPHZtWQn0DNt7YSCxxL bbCvDmYMJ1QhH6ASN3wHHfg S4ufGbv mfcykR3hGcj+RPQ5cKAskUR MWO6kAfalxUH+EFOhYTX6cT heGDiaBKBxrR1kKFOrT0s7M iAwLjA1 GKnlO5MkbfB7MVFtfMDsWSH hbPVSpW1vdstbv3oezhopCe QnPBMxKRv2CKs9RIEeoQhyS iBsZWZ0 ZeQ1OYJ8kRTpnN7bpLmdhhr ziX0eMrn+EsivoXsmRAR1BH p4A9UoRak7NRCqnQzlFJ5vq GFkZGlu Zk6idGyuuAroVS1zWRSjygv py686LsLmw2arQYTzgMHoSC cbWAJ4G13aa4R3FPBzKKEgL OR1tNV8 vE8qoLnrfffzoDCjjMvxeoV xcEuuAWiwKHkjQ748CPMirY xnSlUqWWc3Z8ZyCgi7HEVwv EktWY8k xSTfNEawXi5vaRzeoTliNF4 tUSPsyngsj748JeCsk3hgIE CjoXZlWEfpVXB5E08xb0K2Y CMwMDAw DVJ2aZI3qD9rqVbwmubunAB mdDsgdmVydGljYWwtYWxpZ2 76ASLqjOviKhGwoCm4C4LgZ zf5RZOd zMeoDC6khCBnLSvqVz6ccFp cpCedZX4fODYhfhpxc886Ng Fqw5krBLKouEWqZTorKZK8D 63js7I2 SRYcULXvCSD2jGC5kB9osBl nbjogbGVmdDsgdmVydGljYW fcDQbqV212BMUfuEcrXkJbm GllbnQg IZdjEVb0F9GuIadilCQ+PC9 0KXZqTO83xFGrnAOlv6esjM y9CvQkNWSaYKU7fIprTFecy 3JkZXIt B87fcBHaq4V9EMIuqQbifZK oQgRcuPL4aZ2wLMkokxbmz4 dngrxdSmfwn8bvqt51vA15M 29sIHdp ZHRoPSIzMCUiIHZhbGlnbj0 syA2yDq6+RYYnjAP0cQV1cU 1xSIUdSkV7QIclA076YoBui CIvPjxj o3oqe4prgVo6SqQ9BYGixtR zkAvcZJY0w3QeLs28O25bLH dpZHRoPSIyMCUiIHZhbGlnb f2hsS3n Ii8+OAScoYL1yZL9vS4wZlR eOyK6NKrvR947TrSlwUDjQw keP96rL3QdrRC+OBIiOmi7C CBzdHls RD1rzHXxQRlbYn9yMTM8YzR bLyYuZTawR9MzJNAtztpwuw semYV8MPMcICLksG96Bf9th DogMTBw qZPGfH3xukisl3mbwbzaCjR cWQBlBGu8GQe1ZRYnzUbcOp UlXYW4YcL8DCM8lFKphQ6mf Glnbjog wJ5wF9AxQKTcghfrNi29jU9 hMkKbWfH4TCweDmy+U0FNUy wgQUxFWEFOREVSIExFRTwvd GQ+PHRk EKT2cSnvEHqvGTAkoV0xBEP iD1j9XgEyNhY9KTupI1ZgRZ BubjecGo55sP9dJaTnAhX7S ZeoP1La yeT4DOYtaJIoLClrOCU3W15 ml3R9LWStPMXzMSN3iQH3fX 1hbGlnbjogbGVmdDsgdmVyd GljYWwt XNfrK698DOFptQraZoUoRzX 5EnS7Ogr0A9CxCvz3EVHasE tiCU7rcUWaLSfuYt9taJipx SrsAV0z EDSonqlqRWJldV5nJANcwLS mgYaxOL7hZLPbuabeo713Qy LqDSP0KYIioGDoE2IciZ7oP iAjMDAw MCLlN7SccUGzNFnqT560DYb uYlB1YXCocaKrN0SrFHBdeC wcSdE8c6C4Ov25WLLDRBVqq zwvdGQ+ DNUdYRE2dBovRPauSIQqgK6 zDZJgG5e1QwUfJhR0DKthW9 BoMUVvkxkdVv88qB2vXrVyB nT2UEwp F6RiqxF2QYOxqNWxDEodJKZ 8J89gh2D8CGWfRRFrQDJ5qI A9gY4ckUrhvqlisVZwvRrxe mVydGlj EUeoWVbjN245ASXpnVmeXm3 LUIO8S6AxBvl3POJhzUmlVY 5moUWkGOsgBz5szSgahQnoP Z0bXYZl ezhvNFDzaA8sIIRytMQsbSq nXT8sJASoofsdg799KiGhPH D2LHZabSTpT8CahK9lWrBhF DAwMDAw W4TxnKPiAPntE498BChmUgI 8CLVladYeD5BiZMLlaShoFq G5i5J1Ep5AKJtzvHB+PC90c c32E4Hr SlyyQwr7XPBhKCE2nVU1vF2 mGZKaKVhcq7F3pKW1P0Wfqp Zpnk9rx0hlYWMeUNovI05mk DGrx3D6 ZNDpjNE7KTGosGfpEnAcvQ0 3Oyc+IAXcxCkdk6HlMxvjr7 tmf1bhmNr2ZiMyVGDiybEvm WduPSJ0 o8DtSi71U05uCCuxMFNeDDM oGSQbXDAtdKhnan6utS3nBl 8+KKFwzRC2bGY7oV2gAjVrB pM5YZik K538VlIakCNpIgfux0xgs5t dtMf0PvViPXIyqrXsoGdhWW S8p7JnNw93M1BeqQxaf9CmP cx2le62 bURwb7L1yEK4K7KbWUWdbvw iwBFzcJaaLN0vAYYvhtdoZM LdsN8wKWYuR9w7BzCmNpJ7B RwgD7Us emU8FMZjdQTeBDFejBNWmE2 dnrqmj0tiyoapFnLcEWOeVM y4MPa9RDYvwRgbSeDwNAO4B oI1RVO6 eFLobM2kkChbyuyiiV6xEcx +FDa5o8ydmMPbDF9iwSI9LI 70ZO20aRFuj2X9kKP1C4AdP GRpbmct ntvpePL1RDSfOWAocF52Fm9 lzCtuGb9bLSKoKDD6UAHmeK IsK3LitT7tZjVxKQOoESYhL 3RleHQt ZHuzO352VCudGeK4NAAkamP bJ0IiRFVmqJgwOvQ4x2O2Pz 2MFF21QT19LE03kYWir7Z7e MH3N8Wf HDVrtbptcskcvHE6UPYzMLD daN25Rf4uqBgxGg5wNFMeZF C1MNVzwEGqR9CetQ6nEpUzW DAwMDAw B8ZbfBObQWeoX134ONthMqM 9EMCpijSbI3KiHSAquInuRg V8g9F4Js4ITg99VL18JC80q WAkq2X7 sJV6J1ExGZCwruzxekxitIZ 7IHWaXKSuiB82Nz8wtExxTo 4rMNYpBBW2MNVjzTWuI1Yfa M8eQgNy LOUkVXSiT6VyuKCjHLcgH73 8DNpcWjD4IDZkdpBvG3BlIM AjgMqiDvK3x6M4Fg7UEButg kn4V6Ed PjwvdHI+QP97FOEvHF53hHD rwVAaf3lauKb3FnDaYTMmLD H1hUyzGAujz5CzXBZgM79xv AIsy1D0 IGN (more content not included)... [facility] Coding Summary HTMLBase 64 UelncrjsWVw2vKe+PGhlYWQ +AZ7HBLUxS05fmCKzsH6eI4 NMTElOSywgQVBQTElOSyIgb lJcQV9grIPvCWOi IC8+VN4mZQTsHzaloGKfd2Q 1dQE7B21alm0uKFiqqUD0AN ZyBrJljveew4hzbWl5VDupG mluOyBt NIVeuD33QKH1nG53Cb17tJF gmAScb9hzoUs4TwQoEPLcWW X5oAhhWIkav4SfZMDwM57fg JYce6A2 EKEfdTtzkPQlQzAtoBR6cA2 mEAkkqewbd4wzwsmpCez6ep 18hRWbf1E5jDP9H1RhqxA3S GJvbGQg CepxsZJChW3tdtlpi2uxmhm kJwQaKEXdJYo3YKf5HOFasA bpCxGmWF09FJG7MPOgdyCaT 2FsLWFs uYphRqI7i4D5Cr8EW6MXOsg aX2GJHZRZFJpcfLK+PC90cj 75D6BeGzykDck5AWLhONM7i NF1qL9e NJYbOYaxk2O6eML2C1JaztU olg2qs3mgOGIsYBanF54ssL Edp4Q8PTRivYV1KQHrsFpwF iBzaG93 Oyc+FALsrJweb2PnMktfu7x fl5dwqYf3LkbhHWMxthToeX jqXLA0f9PgIy2hQVKrvKP5z EI0cD5e KkIuLvP4PQjbC040QbXvbUC dUljhG75qC4XqzSF+PHRyPj j6LXJbuRryZC1fV8EcKVArx mctbGVm nYiwHS9iOUBfbazqUKKxeF8 fYOMqI1e8AlRqJuQ7HJfxH1 FuMKPfssjyCo73eV6xUoLaE oE1DCsk F4OucoG5MLVbbPIjKIrxOAJ 2H67mh1P8IIHrOSZmEFX5wC U0qJ7cvBijkjcubFWmyNixy mVydGlj VMghPLauO804LTFcmJqzYkH vZGluZyBEYXRlOiAgMDMvMD YvMjAyNDwvdGQ+WNNcKWR4k WxlPSAn pHXyNLluJy1baKkxpIqxVO2 lGAOwkiwdESTdgL8qZVIosF YlwZwnNK4tRMGsukrkg995N iAxMHB0 TMTojKUnG0SqdR4uIaXfMEN uCEDvC6CsbUIoJRsiW868NK reVuM0YBMcqeDbR6ZvSKIgt WduOiB0 n3I0Iq1Mm8JhdzotU7SkuVP rXlNzEnwqSMn9C1OaDwdhkG I+OQ29SHUxZD30BBj1AXS2g WxlPSdi RWUdS7LduP9nTvGpTKDwFFV kOyc+PHRhYmxlIHdpZHRoPS arSUKuCaMxdOgbSH1cGv1vL GVyLWNv iHxgmNEbDfRzb6hsQUBwDQs rGB1rsJhmG1AvpHG3PGVcy3 z9Yx65U56jP8VmeKY+PGNvb KA8cZH9 tM0pFiDkOdJ7DKwcH721BnA ouSOnBihnq2yaw0ouuWx1Ro T5YMLakrAssTceSPP9m4IlV z93T41a IHdpZHRoPSIxNSUiIHZhbGl lji6ylY1xQe1+IWAtkQT5fJ L9rJ4jFcLaMyJ9IYnwC087K nRvcCIv Smbyv4rot0zxaNo3VoMoLUU yamYldGjkIZX0g4GzLm29L7 ThlWvcp7IsIbp4xd74pQSks 1Y5mQJ6 D0LvCRUrclkftXEdaCkrWO5 nIDQtmndlZJCtyA0xKSBcE4 k9EkSwEzF1QEykV6PerwO2Q GJvbGQg VYWdgVNBtY9vyqhoa5lqswj uBcVyDEKeAJv8LZs5XXEgrT dwKlDgEAP3YhX7JDC2fXJgv M9gzOqh iswnzH4mBck+PQU0iJWjqWG JRD9sXqtmuPP+BNSuDFM0tD wsTYykQKZbaN9rWNRsS9y7T iAwLjA1 TCgnM9BduvG5PMTviGQmGWT duLJThE7bqyhkj3melfzrDm GpJPXoLKo4QHh5FZVrqRlkR iBsZWZ0 KaT6WZM0zASrqO6waDrieoh raF1dJtt+YzdamLosMIY4AS y6X3CrFnz2ZVPyuAeqHW7jx GFkZGlu Uq9xaNawvBakRL8uVITohjo qe880MyHla7tdZGWqrNEyGI krIEU9P59to0R9KUZgWSZtW DP3pGS6 zV1pqRtudtzhcNZglIxnxyI uuUceBCuqXRweV125XORkfI lzKqVvAPn2E2IxGpg3FYBij CcfAO4y vGBtGEouGp0xjUqjrFggEA8 qZQSudiutf167UiVba4igLR GpoTHqPBacVHJ9U38ck2W4P CMwMDAw JQF7tBF1zH0ulCbnxuezbCB mdDsgdmVydGljYWwtYWxpZ2 75HLOrgKeaJeSeaHd4C6EdO cm1XCEp wRcnTM7coFTnLGrjZd9oyFj hiBplSR2kJIAidoxhb205Ys Zpw9fpZXTcvEWuRRygAAO0C 35xf2C6 TNSdMYGyVEL9gWH5hB9taBm nbjogbGVmdDsgdmVydGljYW kzPOyqR844TIGuxCbcXjApl GllbnQg JOfdJQd9A0MeNjiozUO+PC9 8DWMdFM60eUTchUCze6fumY e9EtCaZHLbHCX1cMovZExqm 3JkZXIt Z39jxSZnb8E8YJJjjHwssOL fAnXweRE9tZ0xZHfnkzrix1 jguqalAwbok3vgkn99fZ93Y 29sIHdp ZHRoPSIzMCUiIHZhbGlnbj0 wnT5eJc8+UMZczIC8bBB7wE 5wWUIpVeR8DNecL197RhOag CIvPjxj j9pdu6hrqOz4JcC9NALigpB hfMnjMUU4c4AjQu48Z16pXH dpZHRoPSIyMCUiIHZhbGlnb e8wsP4p Ii8+YSAlvOV1rXT7tS0eZiM dGfM1IVzfW732DuDfpXMwZe wqY14lH8FtcQX+BTVgFay0Z CBzdHls SZ3uuYYqICvoQa1aNTF9CsC rPrJaRYuyM4YgABUjbwycry olrMC4HJMfAKVghL22Wn6fu DogMTBw rCAOnW1rnlggq2sobfiiOsY xJFDqDRv9KBw1BBBtnBccRt EqGLX0DsQ4AYI2oZMhqI5at Glnbjog jI0pW1NrBHEljalaBm72bS6 vZaMgRwQ1MDxqZia+U0FNUy wgQUxFWEFOREVSIExFRTwvd GQ+PHRk KBL8eHkhZNqoUBUdsP9jRAQ sC8c1BfAuWjY2TXvyQ7LtSU WztyjwVh43lN4gLfOrIoQ9O OqzE0Ia fbF0YJWceCJjSOwzLNO1O81 ky0O9SGRvGFIaRON1mCH5jF 1hbGlnbjogbGVmdDsgdmVyd GljYWwt ZUteK034ADWqgLvqNbYsNlZ 5QcB9Zpn6V3SnHxb4HMOiaV bxSV6lsJArRAfbHm7uvKehr MtoHX1v CJApfhosEQMreS9lRSZznIB aaJbeRG0zORGzqypdi890Zn HzVAI0KTKshGIzT0QueH9eK iAjMDAw JKJyI7ZbfSXnPIxdN467MWu xPgI7ANZmxcWrC7UjBKPxeM laTeX1z8B6En47ONQHDNYla zwvdGQ+ IZTwGIG2gGxpEWcxDSKulX7 oTBWlY9w1QwPfEwL9AHtyB8 OhDJNvkbrqNw97qA9oDnKzW aO5ARqw O8KdjnQ8NCJpsTYhOAniFDE 3Q00sn8H9ZNZbFCBkVHM6iF G0aM7bdNoxccfkrMIahTope mVydGlj ROsfYWfdA011VBTffDfuUv3 BICA0R7AcBnd1TABqsAmmGZ 5rlVXkLYwfBt7jpKosdNohX K8dKRMx gjyzPKZcuM5tMJGfsALmnNt fJH6mRACxbkuur181CxNnUO Z5UJPekMHsA8DjjI4qHmMtV DAwMDAw S7XsqNSpDYhoZ928FGipWoA 6SEKiweJsW3HzMPOmzXbaVi U8a5L5Zp4ACBlgrGU+PC90c d59L1Pu BzuwQth6AEYbFPA4yVA7vS2 yTDJuKUliq6T7lUX4J0Kaqp Nahm3sp3seSRMsMYbmY45fy IJir2M2 FRMskEM1IQQqvNnwNjCwbF8 3Oyc+AZQcuChvi0TuHcngl7 hvp5ffoTq5SaXkJHRiypXgh WduPSJ0 z9LxVn13C51fPPnqIQZtFER hWPPlGWOcuPpacz1meT4eUz 8+QATffGZ5sMN9cX0tHaQtT lP3TChn H866XhGgxQCfLqxnl8ymd5z ppMw4JsLqOEIffiLvaVqzWL F0b3NbHw96V9TweAoht3JxK wf2ul53 cETbm4M7oSP3L8VqEYMkpnk apUKnsWblJE1fVEMzomayVE FvpD0yJWMeE8h5WhWyAtF0J ZinB9Rl iuK7WWEmyHFaHWKieQNTwJ9 atqnza3biwjsbJaIhRVZhIV f8YBa6EDOtlGnhSqOxHKP5V dW1PRR9 xLYksT7chRvmcswxcY0vBoc +HAg0w7kgtXMlMG9ylXG2VQ 09VI89fFIqw6F8oUB0I5ToU GRpbmct zvtzrCJ5UXNsDQIyrP70Cx2 dcRyoIq0dOPTpXHL1AMKxiX EnN0GjkK8rZxIhPXMgNDSdZ 3RleHQt JIpeF796UHbaQcP8WBLlytU yJ4EoSBVshIhoGuP4d1J5Th 8GBQ29FC12JX73tLDxn9Q2b VX1H5Uh IRNedhausegqaSE3KHXbGKE jwP94Nl3rqVvhDq6sDTJiIB U2PAQdzNUzU9UerQ5sBhGmE DAwMDAw I1WwnYDbHSxkL624KCtjMaK 8HFOltjQkR3VxETIjdEzsBf S2q0W6Tl5UXu56IE54RH67d UMdv9K6 vPI2M3XjTXFcfoxoouozqXR 8GVHxBEZcyS79Zs2svIqxLf 9dPFBuURF6TBBxzNUxM4Oda L8gXiVp FKLvAEWqZ5TznSJmNNzpC41 7LVesRvY7LRHelbJwM7JkLK GejIltJfS3h6Q9Et1SKAwaw zy6U8Ql PjwvdHI+JE78EUVrTH40mOV hvHQjj1qxlZt6BrEkQUBsGY M7mDouANstg8VyYITjY65dp GPdy6F8 IGN (more content not included)... [facility] Coding Summaryon 08-02-2023 Coding Summary HTMLBase 64 VjrggpijUOf0aSp+PGhlYWQ +IU4ECAHuR80tcFZcjF3bU0 NMTElOSywgQVBQTElOSyIgb qCgZC4ltMKkGZBg IC8+SH2gNYVoGcdekTWsx3S 9rVJ1T95ybg9bWWkhdPE4FO IaAkUwgfzyc9mwtIn4NWdxI mluOyBt BJGseZ00WFE7kA75Yt31cPE wiEWzf0qjuRj4DuCeOQCiQO S0fApeAWfwb2NcDCScR61vp HBxt0T6 BCJxeSfspZMrExFtlNP6lY5 lHDvntyxro0hbsfavKqz1en 90qDDjq0K2mLM9X3VgqlD4R GJvbGQg FpsqzWBMbW9yanaoo4wpcft vHrGnWEQnWRr3BRl2XLJutY rpUjWwGA62JVA7WRYuuwSsP 2FsLWFs xQghQdL4q9I4Vl4XQ9IBHds sN9RYQGTBRLfbpTZ+PC90cj 34J9LfPyczGhv8BLDxPKS6u RL8kA2d CERqJJjfk6R3qTS1Q2VsvpO mry2qk0wpARYqKTmeZ31tnM Ndc6U0LENulTG2SURqsYunF iBzaG93 Oyc+MCNzuFfwg2VrUbtrl6i md3dbrZx4WgfiXJVuobXcyC inRNR6w3XrJm7cQBAraVB0b CE6jN7e OuJvVfG3BJvfS941OfEuvKK lJtafG31zD5NviNE+PHRyPj k6TZAhsNfzCL6vT4SmOZHji mctbGVm tKckCK5hKVJlehsfNHQehO8 lSHBbN0j6CsFsDnY6KDguK3 MiJJPzhunhYb45fG5kFxNaL nM7YQtj W4KdhjV9CEEsaOQsZNgpYMZ 5I17pe8J1WEXnMONfSTP7nV Q1eC9aeIcbtlwbjIUkqBroi mVydGlj UFmaJEvjJ832RGOjsAstMdL vZGluZyBEYXRlOiAgMDIvMj cvMjAyNDwvdGQ+WCWrCVZ3y WxlPSAn nZAcEQgmIq9gkHvkbMibKS9 cRGBjdhgaOHNvhZ7cETFiqO HkcKedJZ0tRYTyhdzpw912X iAxMHB0 YZQodXIrM8PhlF7zFeYsFBE iPZSjJ0BclZKrIYleW102KZ tkVaV5BROiqtKoD5DdQSKfh WduOiB0 r0G7Yw3Vh0NebzygB4MnqTB aIpOgSlwtPHt5R3VeYnzduX I+HZ01YIFaJF77DOg9GGY5u WxlPSdi IOZnI9DspD5uLgOjZCKjYPP kOyc+PHRhYmxlIHdpZHRoPS feTOAuYuXjdMrqOZ1dGz2iJ GVyLWNv kIeuwUBrFtBdt0qpHGPwWIn jBL8prHgvN8AskKC5ICLof3 e2Dl75W77rB3YloTL+PGNvb II7ePL4 dR8yVsQrDaH8TCtbM393McY gtBShGxkny4noa4utgMb4Wb T2FBOpjzUkjHduLEW6a0AaD h10T44e IHdpZHRoPSIxNSUiIHZhbGl bzr5nmB4pBp6+FARkoAT1eK P6pD2nNiXoAcR9GLumG150P nRvcCIv Ywzbm0ynf9pfvSt6VvYmDMF klzIttGklQXB1g2TvXw33Z8 GzcThpw9SjJws9pk49xEGsv 9N3pUC7 E6XuVDUtlwqbuAEbiMsoFM5 zKTSbszhsZVAnvE0uUOSyY4 z7XsQnKtD2TIdoZ8VonwF8V GJvbGQg GUGofVFVtT3dpkdfp7pjkek vZpNeDOJxSKk8INs2GGZbxW exIzMxQWE7TyO7BCU0cUEia D1uqEhg palgaK4aIcd+UDP7dYPxoEV RPK0yAfltiBK+BLQoZBR9rQ rlBUtkLYZekM5bTSMsQ0y5R iAwLjA1 DIclM6XvhtB6FKGihPHiFRS vxSHVdR1erhgpr5akyaizQo MxAOPlBMt1RCw3XPBtyYwzW iBsZWZ0 SlO6ZHW4yIImuZ0oaPlnwcv kmJ2tVog+MrrqdOadOGZ7XV k7N2JiSrp8ZJZxtBqtQB3lp GFkZGlu Oz8nbXwbrQwwDS8fGZKijob ha978HnHxn4eaGYHknYYvWO byCUE0U95qd6U5ULLfEVTmM ES1dKO3 lE0olOpwadzchOEmeNwqvtP sfFdiSLeeRMnrO856KVXrnA yoKoGyJIe1G6ZjUki5NZBnv ItzII3b sVJdGVibIr1wbUpwfBjnDF5 oJADwnbgrj381PzEmh9ugSA GcdWWdQCenLSQ3M04mp4G7H CMwMDAw FID9cVC8yF8xeXoepsyylJV mdDsgdmVydGljYWwtYWxpZ2 81AFOhvUwpKuIflSw6N6GcC jy7ADZg ePppPE1kwUMsBCpsYy3ipNp lcGzeOX1zDDHbxftfa539Pu Sph3xfVITaqMTwABoeUCK3V 75nl5U9 CBKnDOTtRFI6nGY7lF3ynPh nbjogbGVmdDsgdmVydGljYW avTEocL757TEThqUhvFfExz GllbnQg TCfrBSa3C4WmFyfmcOH+PC9 6NATpPY72ePCahSGrd2jicW b3XiFoRHAaGYM1sXfySAbjg 3JkZXIt J50drLLqd5T6TUCntYjakFK oMmXqgZU1uY7wJVnyymctc2 oyodexYddtg8wjkh56eH55A 29sIHdp ZHRoPSIzMCUiIHZhbGlnbj0 nrF2rSl4+JFPegRL7xXG9cT 7uUKMcXxI9BLeiJ483SkKid CIvPjxj l0qps4kjjLd8CuM2DQPswiB acZltIAV7k4NwUq56E60vDC dpZHRoPSIyMCUiIHZhbGlnb h8sgB9w Ii8+JOKvfHR5dES3fX1jEzM qByU4XNliS833FaFzaSTeWo gqG31jU2YnvKW+CWSmXuy8T CBzdHls BU1xmWAzPPdrTe5eMTH6TgJ pBiMyCXymK8MeRFDnezlaju jhtBC5ITDvCPOkwY18Uo0gq DogMTBw zNLAlC1zjhkvi3otemxfFqR bOGLkQSa2DJw5ZNNtuSciUb HjAJY0HmY7KZO2hXNdwL5nu Glnbjog oE4eX2PzGHScfnhxUs78fK3 xIrBqHyI1ULumJnx+U0FNUy wgQUxFWEFOREVSIExFRTwvd GQ+PHRk FYN0jSryRObeEKOqdO0sMYQ aW3x6AaHvOvS5VZucC8OpYE TxhnoqJr71yB8uAgObFcD1Q XzwU0Tf daW5BDApgHKkCRabMRP7L94 pr2W8VMRaRCPpRBH5sYG5aL 1hbGlnbjogbGVmdDsgdmVyd GljYWwt ITmfK409KIYjiUkwHuQqQgG 2WzQ0Mcd4B2MlStj3TVXjtM wpTZ9dmVQoJZolPe0noUgpt VkjJD8h LDRvdnlbRXUuzS5eYZUehZY gnIteTF2pSTOscgims581Ht JnWAL5PBBhpLXoE8UxbN4cD iAjMDAw TGLsI0BcdYIvSLsqP924SWi zMtH9ZVNbztToE8UxHHKhxN bqOpT1d9F8Qx01TPMGWAFow zwvdGQ+ MNQrIJR8fCroEJzfQQNfiC6 rLPWcE3a8SiLtSiI5VEntZ9 ZoRUPevdwhIk03yF6wMoZpR uK9EZwc S1RtdtQ9VIUqpYTpUZjaKBV 9E13aa3Q5SHToDGRfZKT1iX P2nA0yxGijgqyyyWRibEtcc mVydGlj QKhtFUcjM438AVPivGtoLq3 CFTV7K3JdYcc3NZYmqFdySA 9xtKVoXYxuNd0nnXyenLyaL H0cBQIv hezrIGUdfO2lEQLtsHJytXt oSP0bDPEiqahgj569DfWbMM F3VWTklMDcJ2FbnF1lRgGdQ DAwMDAw L4DeiYXkFGvhR060XMqmOyI 4QEVamgBaY9VvZESreLddFt D6g8H6Gp4ULDtrcDI+PC90c i03S0Ig CzvcVks2JFCyNCJ1uZH6kI7 nJLRdHHkvj2Z2gCK4T6Dmnm Aole0sw6npUOFiDPzbT04st UCyq1I9 BWAlrEW7AOKtvNczGhEobN3 3Oyc+LECilIjzc6TcHouxl8 gwy0nskXp4XuSlPLIuxlIqg WduPSJ0 j2YuWa77W15wMMtiRSQnGXK yNRWnMTJkaYzaci8ioN0qAl 8+RJAmiTF9eWB1nD9cWqOfP iI5TQsd Z580DxXqtAHdCheja0ynq7s faQg1PbGrCINyknWhtXuhJD M0c0FwHx73R4MumRuta8YlT wi4bm10 jXFml1U7kHZ2D9WrOXIbqom ocIFjtMpcBF8pAMHjlwstZF PbfO2nUKBrK3p0IiNbWiZ6U ZvzB0Qv edM1ZCZneFUdUOEqqHTRjA3 jzhmcc9rilidrMbYdEYGaMI b0PTt9QKHgaUweOwNaNCO5P cB8SYF5 lNEngH1enDnippsmdY7aUay +AEo2l1nilOEjEQ8xfJU7JW 48RA31iKQyj4Q6mXE5Q9LqR GRpbmct chggdBP5XIVsUXZlgJ11Sx3 dbBqrBj8pESPcAJF5LTLtbQ MxD5JwqO2kDmUbXZLoFPPhV 3RleHQt PYlyF258PCnyIsF3SIVpigC bM2KaZTJcaGaxCaY9c2L7Es 8EWV98TS14VO48hCEpj8L9p IX8U9Pn IZBswhqygznlrBW8NRYpMOK zpR25Ts9udNabDw0uRNRuYP I4TDIqhTRmX5MbuH4xDwFyI DAwMDAw D2GpuCXyKHlnZ925WGmgWtX 8YGVwssYyF9ZsLYJjjXwePq C7p5X5Ng5AWr43YL06PV77w CGwv5Y0 fGQ5Z4NbNGKbactidmbhpRR 8MYIyKLHfmJ95Va6ylMruGs 4pTECfHQV9BEBitOGpB1Zgl S4wIcCx CTHdPEMjC7PbeACmMYliJ76 5QIldFgS1HCZdihHeK5NwTU JovBrpYqZ4d3K0Cj4VVOirj qz7P9Tn PjwvdHI+PC24WTXgJD09lLC dsZYkr4afpEp4ElEcTZXtCZ R3qBqvQKtis5DlSDOaH18fx GMwm8G3 IGN (more content not included)... [facility] Coding Summary HTMLBase 64 JsnjuunnXGv3hHb+PGhlYWQ +VK0HDYUtZ24qyFDslD1oG4 NMTElOSywgQVBQTElOSyIgb dLyHT0flCXqCXCp IC8+CL8vTSSaIdczaQHhg2A 7mHG2F66jfm7gAKjraKM2KQ MoMfAtswbll7knrOk5YDkwK mluOyBt AVLvqI44LPF9rG67Vy79uCP nySHla7zsdQu7LhMfSLEgNA T2kJmeLQnts3DiMLKcB57en LYgc0I3 LZUwwGutfJAjNzOieQW2jB7 aUShzycfag8angijnJgh2je 30pLNfo4O3dSE6Y7RgiiL8R GJvbGQg ZvucnAZFkI5eprckf1zwmyk xZqToQMMlGHn7LKx7JQNbkK poJpMrDE61HAH1AUSddnKqQ 2FsLWFs kWgrSdB4i2W1Bl4QG6RDXoh bC8NPXUXQCYymcMC+PC90cj 70S1AiLiptTaq2MPIeBXA1w MZ1dT6t RBKbHRdnd2U2rNQ8T0JnnbR yvz2lo4llEUOaQYdkO26bjB Lrn5P4NXRdhPU6DMLbkRjkW iBzaG93 Oyc+LZNeoQhzh7TdMeugu9k lx3gnmOs2IevsXHStvbJzlE pdHZU0w4RkGl3uHSUczTL3l KW7cX7o LeMbYoG0ZDsdV433HtNloYC dRqmrA79lY6EteSU+PHRyPj v5MTOyjIwbYQ9xZ7BdDRNis mctbGVm cUmkWA1xDMVtznomWEEoxQ8 jDDFbW9k9UpWhMqB7MPjhZ8 OeIYAlpayzLr57wU6hEiEcM rM0UFtb T4WkotA0ZEBgyVEuHDhqYGM 3L39og9M3BDVdQIViNVF1iZ M9pE3avIluflxkuUBzfWzxi mVydGlj BTrjSKesK178ZXShcGoeOfA vZGluZyBEYXRlOiAgMDIvMj cvMjAyNDwvdGQ+CWSySAE9u WxlPSAn eDScDWurOl4ckZknpNonJM4 wRTVaidpgWUGdgF6oQZRajZ DrvGdzKQ3gYNElgaojb795T iAxMHB0 CRCciXHnQ0ZoqP9hZlFyRCF aPSVgL1YsnKVsNYuuX620BK zzEnZ1MVWamzThE3GdGTSfn WduOiB0 m5K5Fx6Gx8KnajlhA5YccQR wDvVjBlxnILi2J2OmXtaduX I+VO65HBBaPY15EZy9LVE9g WxlPSdi CJNpX3AynZ3gLtJpXNSiQGJ kOyc+PHRhYmxlIHdpZHRoPS wfAPQjKkYxzMgnLB6bMo2eG GVyLWNv mNxixVJgVnWho4xeSEXnKDf gGQ9rpByoQ7IslNL1KZJlq8 a6Ao37N43nZ8IrfRP+PGNvb XA4jJE1 vL7xFlNoRsR5YQcdX972YrX woBFrQhmfo4rox2dafDz1Xa W7QMMkwqCugVojPQM6h9ErF b35K88o IHdpZHRoPSIxNSUiIHZhbGl kmc2zpF8cJm7+OTEyxGS9pP E2xF7gWxXpGkP3XBukH038H nRvcCIv Hjpbt1mwo6ydkNb4JnUmLEO vluJgwAysHGZ9z3BjKp50N1 DssDqfg8WgFwa5vk67aQWyt 4I1kLA5 K4WrIGZblhsnrGYawVfsMA9 sPFMkroopCXHglM5aVKUsK0 h8XdZfJdO9KYzrS3VptuQ0V GJvbGQg YXFqvESRyC7todsvv2ganle jNkKwISDbSFd6DIt4QYLfwI pwPlJcQNQ6FvS9LLU3dIWay M8qqQdy gbpinH6kEde+TBZ4oMQfaUF BTJ9lVwwptOB+QXFdHCD4lA olTHibUFHloX1uGPNoG7n4L iAwLjA1 UAkuM4XnbmT5OHFyxCDbBDU ueYJJbT9dthiit0ahrzoaAz UrDENpOBy7ORt7LPSzuPwfU iBsZWZ0 QuU4CIC4fSWaaG9wjUabkuh hrQ2bYxq+HcajpLwkDWJ4VC o0G7BkOtk5RTVmcUloDY2uv GFkZGlu Os7twIdohHreZJ7rFSJhmbd fw279GgImy2soIPUxfCOcWQ ljLJO5A94rl4Z5YVMzZXOtU XN4lCU5 tE7gyKfeiarkrRVvbFpttaX rhVgeIVkvHLebY949KGDyoT aoJjOoOXk6C3VnAad2RSJni EhhUM2y nNCcPFxkSw1vnOdwgXgeLC1 jMZFjryent450QrGws5jrJB XezGPbLCspPCJ5L19yx2T3N CMwMDAw TVJ5nYC6sD8zpPcgaslooFI mdDsgdmVydGljYWwtYWxpZ2 28OUYgpAutAzUtvLu8K0LqV ur2LZSj rRosMK8ueZZaMAcrPp0etHe ghVxpNR6fSXLbpjvcm045Qu Auq6dhAIUsnDYaVIyxZVM4Z 16dt2V9 POZhDSAfVPK3sEQ0tR3ppQq nbjogbGVmdDsgdmVydGljYW ruBGihU336LZRuqMaxWnEej GllbnQg MPdaSEd3W7OgOawzxDX+PC9 2ZGFhGF66rDMxfRPyu0hnaV e1CkPtPGExTYT1rBsfDHroi 3JkZXIt K94jpZFvu8Y4WYGzzDydrJL mKxIlqSM4jG2eOYklelvos4 swxvrcGhctw1zxmo65mW41Z 29sIHdp ZHRoPSIzMCUiIHZhbGlnbj0 fsB8xVl8+DXGyaXX9gID5vF 9aXEYyTeJ1QQcpZ423PcNer CIvPjxj o5zrk1mkzDj1BfO0RZDmxcW blDdkWTI8y3YjLo95P25qMD dpZHRoPSIyMCUiIHZhbGlnb n3nvO0f Ii8+EMBptIP3eCA6fG4yTvW uKaY4FTmhL064FnMlwTNuOz qtX45fX3ApvWJ+QDSeBdw8T CBzdHls QW0fyCAvGGktCr7vPYD3PgI xKiMrKNhaM1WzAWUzcsozxj vovBB5TGKrUGTrrJ68Yq0pt DogMTBw lIVUkX1gcbdpe2hzdjquKcU fYDSiDKo6TMf0STMxvZtbBs GtQDQ7KbR2RNE4dSAtkJ1nv Glnbjog uH4cW1ZfXWGczytyIs52bK9 nOeOdJtD1KBfnGok+U0FNUy wgQUxFWEFOREVSIExFRTwvd GQ+PHRk ZXD9bUhxHVrnTUHrvE0rIAV nH4v3UrFhBxY9GJjhO1FdBK GzyiwcFe45vD8mCrQhXkH0U WckO2Xd eaU6YRWdvPPrDQerVHD4H29 qx6I2XOHsPMGxZUY7bDY8cW 1hbGlnbjogbGVmdDsgdmVyd GljYWwt TRkcY468ZTNenCynLlGoMbE 2RtA5Ujm0M5FfIzp3MJTbwX lcJW0ozIFeXJhkAr8djWaui ObgYS2a UWOvaoaoHYBxdN0mJVWwsNB rlAqrOJ1iBYEqegpcm687Yi EiWNJ1RZNteJRfX6QykH6iH iAjMDAw OOWtK4UpsFGzIHrkQ010OBi mYcQ4DPXezqJfA0KkKXGgdB npHnY7g6B4Yl83TGPVEZXpq zwvdGQ+ XVRsADL2tJzbNQqsXIOcyJ6 vJHPdV3y0VqAzXbM8HBpwH4 LzAAOgqkqjMx59gQ3aZgEhJ bD0USsm M0BuoqW2OFKjmLVoPIqaYOS 3S54ls9T9WXYrQBBeVYA6iX N7hC8qyOxetmhbaKGneOypb mVydGlj UByiAFnsZ774VUErxJsjNi8 WORU2E7HpWmz0PBHweCpqFZ 6fcZWgKBkaNb5utYdgyXojF Z6lLUZr dgtaTUEhaE1wRNPvtBDfbUz rKF3kBVTbhyoac103XlRxEG U3TKQzvOMaX5GptS1eImPhW DAwMDAw Y3QmwVDsKZuoA546VTwnBlD 6UENkclKvP6YqMUPpoFbtCu Z2m7P4Ir8CWStkoXB+PC90c a17R5Eh MqmuUza9DIYlGTZ2zUU8jI5 gYKBwYUslx0U4xBJ3T7Ejvh Rytw9gq6dqAKIgDOefO66qm BZkl0K5 IAYkrSF2HYSilBbhPzAucY5 3Oyc+NGIgqZncv8BiPywrz1 jdc2ludBv9VzSsQFAdcgAoo WduPSJ0 g1HbUp28G22xHJnsUKClHGL zNYSfLHQhsMgcvo2qlD6hZo 8+ZMIljQU5pNW2xJ9pEjHoV zD3MIfx W366PmRniDYlWedgh1nuw7h ewNm0SfBrCSWljeGviRqkAD V1r9BpTn92W2QimScut0TfT bz1rd04 mWXxl6E6bMN2W4SaXJSvibb aiOEdkWbmSC4uEHXkiuwaRM RybU2vXCBlH0g6JvIoNrU9M DzrZ3Sz szB2GBVviLQmDEWhlGTLmU5 vtytmp5rzzguwBaMfXEKnAL s9VEf3ZRThoIdhIePoWLI9L kI7AAX0 gWDibY2laHpnnupfyQ8mSwk +SCt6b3gyfWPgQY5xtJX7PD 17MF32cANfw3I0qTI3H0RlM GRpbmct ghbxvFH0KASaPULxhN65Yz9 cvExkOw7qYOFbVBB2SPDkpA AnH5AusF1lHmGsDLWvNZWaE 3RleHQt QThgO546HFadBwW3ZXMbjgG cY6AgDOWbkDtzCkL7u5B2Ng 3FAF90YE81UA75wHBci1H6d ZL4C4Bp GQCglnbfriwnsDJ2GOKzQSV vvW95Xp7xxGygNk4uAKCuGL B1POMreEViQ3GtbW8fAmRoJ DAwMDAw U6KwiBLbRFpkV711ZDqnYmF 9KUWghhEcU8SjPRYmuBolAy N7s9B7Zd5HYe22DE34YG30x EZtm9T7 fJC3M4JaDQOekgtshnohqPR 1TUNtZFRafO61Il0ngImzKh 3sKRRzCRF2DHDnmNXyN0Tqp H5oVmOz YIDuJCZsL7AcsIMqZJliU02 7OCdvGeI8GQEewfFqN1TfKO EjaMogNsF1k0X6Dp0RURrnm je5J9Qf PjwvdHI+NO31RSQuAQ22jQI fkZJqo6tptIo9UwAxPGKlPH C7zAefXThdh4ZsKJGxG06fu WWji3G4 IGN (more content not included)... [facility] Coding Summaryon 07-12-2023 Coding Summary HTMLBase 64 ZrikapnpLVj9qKr+PGhlYWQ +UL5DGHYsU29vvKMckV2qL3 NMTElOSywgQVBQTElOSyIgb fJsQA3uhXYkKKKz IC8+SF7dQDQmDfcbxJSpy4A 2oHX8P58hgz0lOOhcpEG6JU MjHzEnjmzik5tccHy2JBpmR mluOyBt VKWowD30EYS5yT29Kq54vRI uwXMco2jmhDu5McTgFAZdRU V4bYrkNRraw5XtQVLeP58ab EClm7M6 JTDzaBxixQQtGmInzSR5wB7 aUHubvyzjc0snarqbJaj8ud 49aXVcg1M3eOQ7Z6KzwqB4Y GJvbGQg CippqHEReH6merzvz8lemqz kQlVzWNLgLBp3GCt6OEAmoM csQuXgHZ96ENT9INUmggIgZ 2FsLWFs gCpuNuW9s1D0Rx3VH3FEPok cX1UCOUOZMUirnUJ+PC90cj 83A3SnQdshMek7BOCgOFF7x BO3gV8a CUQwFPqqw7C3cIY1M5PplsO zzr9vr3fvKARwYQdmE93ttU Ssk7P3DPRvjIK0QUIqqFvvQ iBzaG93 Oyc+JYOwtAtef2WcTatbc9x we5offRs9NujlVBBxwlWxfK qiUSG1w2EoOw9vKYQyrBK1a VB0vO5i EbAbIrS3ZNbhW267DnDymGZ uLgxcJ87aL4AruHY+PHRyPj d0MBBauRvzQI0vM1QbMDEtv mctbGVm vAstAF3xSTEeousjRCZuqU1 hDIXnC1w9MbXoCfP7JOsrP4 GrAHTuqvggYw74iX3vGvLfP gH4HDeq T8AndnP4RCBbaZZySTwqELR 7R15ff4R4VGSvZQCoMJX3kY X5jW2ppAuojwmpePGquBnhv mVydGlj NXzdWLtuS751NVGiyPmiOdZ vZGluZyBEYXRlOiAgMDIvMD YvMjAyNDwvdGQ+TJXwNAQ5y WxlPSAn nACdJXawTh4xwTbcsOpaAM5 uSQGnsnmbHLMphG3kAXYatN HgxFywZS2hGZPxmawof480A iAxMHB0 HUXvfFCvI0WwuW1eAfJuLNZ yDZRtN5FuxCRmLTjhL114ZD zhGpL1EXApkpZyF3LdYQCcx WduOiB0 s4E3Pa5Mc0KaxnlgL5LwaPG vGfJtNshuTKr5K4UdWmmouG I+SK87TXPgEG26AXq6RWD3s WxlPSdi SPOdA4OybK9hBjNxTEArQXB kOyc+PHRhYmxlIHdpZHRoPS eyCHNzIkQezQbpPQ1bWd5uD GVyLWNv lVycjYZhUwSsk2weLVLyNOe iUM3jlHasV5JthLS9TZAat3 p7Jq01T74lO1EdcKN+PGNvb CX2pNW8 nL5mCpKjJvH8LPijV679XdP kePUrKimid4bxs9zxhRp8Ze Z2GVImkzGaeMoyYKC0o7RnN c31S23x IHdpZHRoPSIxNSUiIHZhbGl qyl3gmN0vXi5+ZZBocHT3oE Q4sZ0mCdDjPkS7NEudY710N nRvcCIv Stdyo6nzx7mnuOw2KhXlQVE octYitMbjMVG7z9NpYv99A0 RpkBzch9InLso3fw18iFUfx 2Z9wLX0 S7TqPPObpoataKBlpYdzVV2 nHQLpovhhXXXfiI1tYLTrT7 y4RoIrVaR2KIpkG8CpypK7J GJvbGQg FURpmOHFfH6gqzepi3szqqq mCdPoLKFvOQn0LDh7EHRanN ygOdLyKOQ9CkY8DOJ1zTApg F9fpLzj tvatgI9vRcb+NTS4zGMplSC XXB9eVcejxEQ+PMUhIKF2qZ jzLOrhFFJjhC9jYFKnV2p7Y iAwLjA1 TWjkB1FpkqG6LHZsgVVjCTX diACFvE3twoisi4rdwycbEr SgKAMeIYy1BFi4RJIsqAyvB iBsZWZ0 TmJ0SCE3rCZtmA0kwTrmgix gqX3kWlq+GucgrNueNZQ5WL u2W0MrHfl3QLBlyUdyAU4xm GFkZGlu Ga3wyDmqqAyfRN3tGNQscgf al270AbFrr0ppASWiiCOdWZ dlEAD6S40uz5X7NTMrIQErJ YJ3tSB9 hT8yrIkdmskbmATdjKfkmyT fxEeoDKguHUojD628PZIzyU uxCzJjJBj4T4NyQru8JVCbu XdrCR4h bNCvZIwxQe1eeJbtcLaeWD2 pAFCccrdbb994NnVhw0nlSH HxgDAtCOcmMZE0E74uu9W2J CMwMDAw ELI9bLK8vG2lvZvoyjixlSB mdDsgdmVydGljYWwtYWxpZ2 62YFCluJmsGuEglDc0W3GoV jn2CNPe oIjcHC7daAYzJCigXb8ibKg oyZpwLG8yHDRlmtatp069Pz Fjw0nkFEPmuDNuRHwrGWL7N 40ql2B1 TWBsPXDpHRM6hCX0gJ2fbWf nbjogbGVmdDsgdmVydGljYW zbRYixB808CFPnoJovKjYyx GllbnQg DRkbOCc4L2PoQhqmhLB+PC9 1HGRjPV43aEOuuPAel8rlzQ x9CbWqBQHxTKD4hKwfGStis 3JkZXIt S23nqYIsl5B8KQBhtAkrbSU mFvQekAO2dC4xTBijtcvqg1 hcfylpCnsmh7odeb96uD63P 29sIHdp ZHRoPSIzMCUiIHZhbGlnbj0 kdP1tTb2+AHFsgCN7dAK3vK 4pLIDoHpW6ZHalG699IyMyc CIvPjxj r1yls5uqhFu5KvR3KMSekfG frFtwKCB3j1ZtVj03Y72rAK dpZHRoPSIyMCUiIHZhbGlnb w4vqJ4u Ii8+JDSvyRM2hSS3cU1xRtQ yEgM3YUgvS763OcTrsLTeIw uiQ31iC3ZngCJ+SNZvZsr1H CBzdHls IN2sjKIzUKoiFd2zVJY6GxF eCmSqQJleB9PiIHOenmfocg uodVA6LGFoGTNhjL86Fx2ti DogMTBw gTPMuM7vxtgql9hbylbjBsU qRMLuKLf0RBs0LGNwlLviLq ZkPJN6AsW6BOD9xSQrtU1as Glnbjog mF7sT8CiOHExvraiMp69xG9 yPlCoOmF8RXdoEub+U0FNUy wgQUxFWEFOREVSIExFRTwvd GQ+PHRk UKL9cMqtKFqjVCHohC9xGBP pZ1v2WjZzJnB0WDevP2DxIY AocgfgYx29cO0oFtRxIjN8B IlaP9Mt mvN5TXKcoEPwWSxlHAF2J09 sv2W9SFCiKJYaYWZ2aGG0wC 1hbGlnbjogbGVmdDsgdmVyd GljYWwt POfiX749KXKpgMglIrLeHnR 6YzK4Fqh1B8ZvPsl1MUSqiJ zfOD3edLFgDDikBv2fsVtmc UvcBV1g RIQstblxETQpyL2gAXWewFI wdZdhUO0vOKYajaxoz508Oq SfRTQ1LIJbqXEaS7YnzF7rC iAjMDAw UCNoA5RnhEHtAHvtT553CMp zCwK0SVHcyrMdI7BiEAVvaO ryHiH2g8X2Eh43YHVLLGUck zwvdGQ+ UNZaOES8uXcrKMdcSMLotJ9 dRZSoY8i2OvTcZhC7BRedT7 GdOMBrsmsjEr92rO2pKdGcS vO7HWnh L1FkvkP3BOVkvZNdDDqjYXX 6Y15jw0N6THTpGQCnPJC8yY J4rO3zvVmpfyuxpDAswUvpg mVydGlj NPeqBKuzP670NOKykRscZg4 UEGN6R1WdSpg4DIJirEiiCR 7xhENuLBmnVl1teLqtyIvrP R4lOWAo olyvBFFtbL9qUVDvhLLbxAa uDP7jTLYjljusq845AyEnNJ N4CNVzoHTpR3NgmJ6kLfOrS DAwMDAw D1IkwFBrVFjlO037HZxvYlV 5QCJdjuYnY2GvMBQbuYsnWa M4n0U5Gl5RCKdhwCY+PC90c s28Q4Ng BtecZcf6EQQsVMZ8mYL0hN7 wBESiZXqbk6E2oFN6Q3Lkve Dyix2wa7hkSZDrINavP81dm GJbo6Y0 YBCmyTF9DZIdeNeyDvXqlH2 3Oyc+XPIdiSbgw0YpYbqkc6 twm6bvdRw8SiRdPGIypvJcp WduPSJ0 l5GpHu60Q91bAFggDOPxOET pWOLiFRFreHqfgj4bmK6iQy 8+XNSljWC5dIC7jN9wYxTmN yW4JMbh C342CjDdtDKcMiufo1lbg8k isYy4YxThSDAqggLxbBjiPE D2g5JlVj82A1FtqSfyo1TlS lt8by89 aLAxr0Y8mAV5C9PaHVTihzg xzOHkrFcuXW6aLUZokkccRJ IsqY7pSEGdR8z3LzGrZbZ4F UbpV6Do jhK1UGBrwNXpKXJviORKuC6 swgisr1kdmtkmXkMfSDUoIV c9AUu0PKBuwAkhBnBdGFJ2R vZ2JFA5 gJCupY2lfFbohqlfaB3kDlb +BZq1h9wmaGRnOM1ntZF1WR 67FT94dXYkf2O9fUB1H6LmR GRpbmct lwpqfUV3UCWlDZGlbG03En4 eaJfdPb8yFXOiLXW6KCInnX UxJ4TpoT7vKvEmCCXiIIGoG 3RleHQt AKxkM395YHhqPcK2RYQpeyN aX8TbGWBnoUxxExC4c0C1Gb 9ZUW41SQ03US75lNKsi1N4v ZE2S1Ro GGCbgjiahvpvrGX6LFYhLDF gpC47Kd4uiKsnFc4nUWNmSU R9QEKjrOSaC5NptG7wMlHhK DAwMDAw E5XyqAPcAVjnS255OLixCeA 5CTHwoaLrL1YeVBNisVdmJw P6t0O1Er8PJu36DX69EK86u PLuq5B6 hCS6H8KjBRMdnxeuwarcrIE 4NHHlSAHlfP22Ac6agRhjPy 3tNQHtACB8QWZjxUCzS6Cfh B4sGyKw EPKqIJZtS8EieYMcHEprI28 7EHdoHiE0KPFlsnMqL2GaBK JaiHgrRgK5b5B4Mi3ZKApgj ft7H5Ha PjwvdHI+YE64MFMpWT82sDC yrLVfp0rwuOz8QrHxEJSuNW Q5yRvuGTeyu2WbQGGnP87gz IMtx1T7 IGN (more content not included)... [facility] Coding Summary HTMLBase 64 GaatdoieNDa9sLk+PGhlYWQ +GG7MBHLhQ49nyEGxhV3zG6 NMTElOSywgQVBQTElOSyIgb cHnST4ffWUiUHWa IC8+ZQ6jUOXkDsnspABgg3G 8hCU2O82cdp2fJKkubGA2PT ZuAkPccicrq3eimUr5KWekA mluOyBt MCRzlH37TEM1qR32Od61yLU mnZLfk5dsgDe9AbItHTAmQH D5wScmKVtok6BzTKUkX10ad SHqj9U5 EYVglUkhgSHnJjBvsAU3gO6 cROajtvyxg8bxeyovEdm7oc 46vVUih3B5wAD4Z1OsjwA9W GJvbGQg NretdASXyO1svomuc8erdbq vSsAdSGXsZPc9XLk0HICioY ckLlYjIO51ESA2SJSirvWdN 2FsLWFs xLcbWuE1m2O2Nl2NL8ZKAuy cI4XVGPVGHHffjHL+PC90cj 08L4KzKixdVix1VPEwFJX7v JQ9sD0t QXHrBBzez3Z3kUF4A3TkfwJ hfn7jh6hlQVKrKLzbE99vcU Jid0T4JCVvvZN3WTRvmRbvP iBzaG93 Oyc+JOGldWflu8AuJsuhh6l rm5xhePz7JmhhEQCfsjIquH nsHMU6g3UrKc2pFDAzoFI3w AG4lQ0c ZrBmCpN8KXrhX337EyPcrTH yJukpS58sL2HkgGE+PHRyPj z8IOKsqNdlOB5wB9TvGBOke mctbGVm oTwmCU0xYGRqlamqUWCqfM1 cDCNyK6g1RtCrXjF8ACzdC4 AeKZIiidnnZh85uR0zVjZxU eZ3PBsu F7JzhiI7QBCzcMDfFSmrEJW 6R33uh6T8MDAzXLRxQNG3rC R1dF8spVvginypqLQxkVaav mVydGlj QWrmAMglN488NCSayWdeCoO vZGluZyBEYXRlOiAgMDIvMD YvMjAyNDwvdGQ+YNNsPGI7f WxlPSAn aGKmOZsdDj8ckVowlZjdQA0 bFWQinfooQXXviY0sJANifS GecXikBO7pZCYdsduds896B iAxMHB0 HSBulLPyZ4GzmC0bTgXoWEN uLWZhD6RquEBwRGwzH047ZV kpToS7CGHcdgHfO6CyVIKcc WduOiB0 s0Q3Tc9Ru5OqgvexQ7RxgHU xAuDpIncgEKp8R3TjVuaceT I+VL11EKOhCJ32VQw3CJA1h WxlPSdi EDWjP2FduT7xRlNoJMNkYJE kOyc+PHRhYmxlIHdpZHRoPS kxZPSdVpWokJvzDK9lRd3jR GVyLWNv hBvihOAnCkOmy6elBSTfOOg pZD7wsCknK0TgbVG5KXEvp2 m8Ii27Z25tA8HaiNK+PGNvb HU3kZQ9 zX4aDyPbEmE6ONbfV025LpI bsSYvXpbaa7fqw2murOv7Rm L8CCMnzeVdkNkfNLQ5x7TcA q24E89e IHdpZHRoPSIxNSUiIHZhbGl efw3yrR2nLs4+MNCefUQ2sV D8iU5lMfBsXoH6RLqaR671O nRvcCIv Dkuej0kjs6hdyYh9CiQqRDH henHagLnsCBD9g5OhNa71A2 KoeWbur8DrYva8my30kRJus 0U4hPB6 T1JsCGLijmijfFHteUboXW6 dDZPexnwhWZIjbK8vPWPoL7 t8OeEbGgC2ZJprG6EfcwX4S GJvbGQg EVRoeOSYsV8pfwjaw1yxscq tTvBwYXMsCYi1PHv3ZZTguB ggJhJtVSJ6AeA9KMO1nVKhk E1tnNrl vxtezS1nUkd+LIO2aLKgiTJ PXL9kMcjeoGY+BXNcAJN6lR ojLCkbFGPyqQ7tANHeQ9c9B iAwLjA1 CYsyE9WfujV6NSWgjXEjSUK tkXYSxJ3uawrhb4dyxzgwCl TyQCVxTCa9MFv6GEMiyZfkZ iBsZWZ0 YoH2HOI0aKRkgM6bbEsanpu bwO4bBrt+LxgoaDrkYSK1ZF i2D8HvIjh4ZQDiyPfbWF3lj GFkZGlu Ja1olCjegRoxUC2mDABpoug oz277MtGfw8hzWIToiSSbGG dmRRH9Q34yd1W8DKXdWXKtU VM0yUI0 pN9hwLuftsypvAVdeHncuvW fkInpJTazMIyzD933ETIyjB wyHnSqANz9P9FzHom8OQNri EfyPW0y yTGkRLllKt8voAenmLlkAY3 fLWVqduypr065YuArw1fhDW LczRQyZNtxLKN9G86ji3Y8Y CMwMDAw GHO2yFC6mV0zzTuxxuxfzXU mdDsgdmVydGljYWwtYWxpZ2 51RWOjgUvqAzOzlBf7M8FaG zy5JGZn sHvuLD6urBTnOXqvUv0mtNx whWgsQI3eWLMsjjdmp957Mx Kcy0zgQVVjbHYjNXjiENG4F 87qm7V2 DFTlRACcHYV1sHN1kH8egFf nbjogbGVmdDsgdmVydGljYW ixNTszN384UFUkcZugIhEfm GllbnQg YKfnATa2X5GjMrseeTX+PC9 8OOHxYH70uSEruFFbx1gymY j9XsYrIBSaRNQ4qPomPHhhk 3JkZXIt T87xgPKen2S3WHWpwHusiQU sZyVulBG6qK6qCHtlofswy7 amdsmvMnyhz6cxsc78dI83X 29sIHdp ZHRoPSIzMCUiIHZhbGlnbj0 cdR4tSq0+HEPyuBF4iJB7uV 0aKMIhVcI7UPreL950NiJqg CIvPjxj b3oqn9funXr2SzW0DXLzymF qkTdmXHO5c9UxMg33X57nMX dpZHRoPSIyMCUiIHZhbGlnb r9fiE3x Ii8+QKRsrBP0gDT0tA4jVfL zMzQ8FEhmH756NuFelHPoUl esU17jI6XktJI+FCPmBok4D CBzdHls QN0bdXOyAKtbGg1xHWM5BnY uTqSqFJqlF8FlSRTnvfjhhi teoER2KQNlSDPqcH64Qr9te DogMTBw fKUNoD5khmmxj2ummconAzP pFARzLHr2ZAh8AOUrkXqbXb BaHYI8KnZ0YKU6aZNrqC1ek Glnbjog iW0uS9UkLAJnjkisZc40dV9 rRxPeLeW3IPalKzg+U0FNUy wgQUxFWEFOREVSIExFRTwvd GQ+PHRk XLI2mLfmIDchXHQmuD2kPOZ pK4s2AbShDlR7NInqO8YjRG AaydbfOe54pM2zJiPzJxJ0E WtaV2Ie nsW4DBQayFTcBRqrJDA7M46 uc1Z7ZUAuZXHzNTV4bNK5gU 1hbGlnbjogbGVmdDsgdmVyd GljYWwt QBavO025JFKxhUzePxPoOeM 2NsJ9Qjr3U1CnKai3NUEdeH caFU4ykSLjUNdwXb7mbUudj EvdSU2q VUZvcfuaXTQzaQ4tIZHdxAV daCndVT4oRDCybelcx220Tt EfJIA4NQNokXBfP3JamP7pW iAjMDAw ENXkE3AbaLWdKVdoU077DVc eLoW3TKMgxlIaV0CnGUCncG qkZdG9o1O4Fy24IKXEJOEko zwvdGQ+ OSWnIFF4nJezMFnyQMSowW0 lTVHoT0l8XhElVbJ2YOozJ1 BkPJZaodxtNi33xX9pEwElM xR4KNff K2FzblT1EEAcuFJnPTuhASN 2F12ze4M8VVJhPFIvYZK6kD Q6aU6hlMzonjydbOKwtBbjk mVydGlj JCgiWIeeE396ONAbfRgeEt3 VWOI2E0DiKrk8PPClcLxrVV 1mxVCsZQyvVr6olIljgYkvX M5uBHMd gkcyPSQodI7vFMHmzNDbbBc sVS9bVXHihqumg297JlHkTL M8QEQfwHYeT5ElhB3nHcEmP DAwMDAw W1DfbRVyDSnsP646BDzoGuB 6RHGsakGgO1BeFFIgwJrjPj B7t9V3Qt2KDCvohQD+PC90c n50T2Nk CiylTpk1OITjWLP4hAM8kK9 tFJBiFQqcm8U6cRK2U6Kjpc Vodl6dj8lnHEKoTYgnG22go ORng6I1 SMGvnCY3SJYxdAkuCxCxpP6 3Oyc+FVEniNquq3KmVweoo2 vrd8zbpAv2IdMiLRDeuqLhu WduPSJ0 h0NhCq28C49eZLfyXCHjWWF lPMSuERSxkOgooy7zwC4rXb 8+MGGbmNZ8oNP7cW7gCaHbE zA6YRha R529QtWpwABxSekjb1wln9c hbEo4FuVoWITutzOnlVmyWX M5r0GhXz89L9ApiYelr5HeH jb9az06 dGCmz5G7gLQ3K1GfRRVflix mvYGgcDukGO3zOIXosrwnWB DlbN2tWAMtS5p8LmBdSnB4V MvuR4Fx ocQ1UFVziQYeRROjoNNYdF9 mtsrya3hyejzqOiLtELVfZU a5PYm7ZEKlfEykVnXeWLE2P tS8XDQ5 kWXihJ4yrGtpdwbmrM0pVsi +TFz3d0svlGOnVA7qvVO5CH 76HL30tEQrl3D1gEF5A0ExE GRpbmct zifrnPE2RUZeFIFtbE06Tj7 sbBtzSf3eFTOsWXA4NQTshF MeS7LmfZ4uCdNdVSSfBOIrI 3RleHQt WMagJ251MBmrWuP4ISYhbuM uH7UqXUUfhIgfCnO7t8F2Xf 1AGW40ND65SF87oLQsj1U3m EG4L0Ge TKNwwyvaikmdqVK4HZFqHMT anQ80El5xlBfjCc9rUYQkAM M2XNKnpLScG3UtxO2sGcKuA DAwMDAw N8JpxQJtGWlsZ705XNipJgC 8VHLfkoEsY3MoSQExzXkwNt L1g6E6Fd2KZx84CC98YS11m UFgd5Z6 yXM9X9UdCOVmdtekkkcscPB 3VCKhHQMcbP04Lm8glBfhNq 9uDUJgDRO4AXSduQIcE6Xed W0jAjVy JZViMEKdZ8LdaLZyAHspP73 6FQwyKkO0NBWxsdTyK3BgFH RwgCbjRhU0q3Y2Ne8PQBruk ot3G8Kj PjwvdHI+IO52BIBgPP17cJF zsIMpr3ywlFl0MkOmUFEsPG C6zUkcLNskn4SfMDQvH12ub MZhv5Q0 IGN (more content not included)... [facility] Coding Summaryon 07-11-2023 Coding Summary HTMLBase 64 UpbtboxgRDq6lIn+PGhlYWQ +SM0YSAYzO16adHMedN2wB8 NMTElOSywgQVBQTElOSyIgb yLoXL3djYYbUWWs IC8+IP1vKJWqDxmreHRay0P 7hKY4B09bik2vNUpwaPQ3LD PwFzQcfefea6qwzDs3DKvmS mluOyBt XZGkeP12BYT3rG55Fi31iMT jzMQqp3tatIw5ZdZfOMPcDZ W6yVtbSDmal3MpCDNyD33nx NVpu1R6 ELAswPigqUJfMgWavNF7aS8 tPSvllxmqx9mlicwjGge3ll 99gKYqq1Y4tRM1Q3HvbgB9A GJvbGQg VkgkmCXPfX9oyntvq7fmkkq nKnEiANJlIXc2ZIk8IAUikW ucJtZlJU70KOS8PFIfhmOpU 2FsLWFs gKxqIzV6r3A5Nw7KR6FKUyj mD4AKPLQETSnhoFU+PC90cj 27G4EkJgnlRlq0PBTuFVG5m PB2zC7w TKIdCDnhb9X5fIX9F4BfdnP hap9uk5viUIBbRDmhV55wxC Xwn5Q5DNOduII5MWRxbErcS iBzaG93 Oyc+SOQzfBxaa6DdFzgdl6l xs8vjmKi6HmidICQbkuDdhR xcZKK1i2ZvSj8gCQAdhFJ1p SP7iT0p DkWlIcM1FOctM557ItRxcLM dWyziX63qR0PvbZD+PHRyPj v4NKZfwJzbSD8uE2XxAYUri mctbGVm gKcwNP5pEBNuitmtBCEawY3 bWKXyP8p9KvBsZmV7JYtuP0 UiKFLskupuBu42gG9lWeOyH oF0ZWbu C6KxnaW0VGXvaHIoDKxjDIL 0V64mp2K2LFGeENKbGNZ6tI S3aZ8vkPxuzxxojAGsgYlki mVydGlj QKioAVstQ082XQXiiXjkQkX vZGluZyBEYXRlOiAgMDIvMD UvMjAyNDwvdGQ+BRBgDTC5h WxlPSAn iOBrCLzfBq5xeZkfbGdcFA4 iAULivxxaSYClpL6sWKPbyY ZahFjiZM2tLFHwayumk789F iAxMHB0 XTPbwNJkW6FytK3yFdKgEZO vKRBvZ9HswBErVRweI150VG odBuP1MFLrdxRrD9OkRVAik WduOiB0 c9L2Ht3Xw6DyzhckD0PoiZL bBpRbArlzFWl7T9DnWtefaQ I+JU57KGCnSK33LUy9ZTD7f WxlPSdi TJJjX8PvpZ9zUgGcDWAiZNV kOyc+PHRhYmxlIHdpZHRoPS auVNEuYnWzyDifYR4uNr1tO GVyLWNv uCuoyZZvLoEsn3wrWMWeGVx tNG3laRdaE8MmjOB8UDOtl0 p2Hm99X25sZ5WtaHZ+PGNvb MI9jUY1 zE5kTrIiBqD1PBnqI621TpP doSWzEmqnr2bre0vouFb4Xs M9SERldyJvrTbtEZW3w2TxF i44E92i IHdpZHRoPSIxNSUiIHZhbGl uup5ldL6cEi9+IQSbiLZ8mH Z9vI2eDrAqZiN0DYmpP011Z nRvcCIv Zvcyw8wez7yvdSn6UpDrRWP tuyZruMriGPJ9x8IqUc66S1 CcbEjxp1MzAjo9jp44sJNrh 4Y6sOH4 S9YqPKXncoehyIOceRscYZ5 tBOLnenheLYCfoB9dAXXcO8 k1BtPtRlY6PVppZ4NmcjD1T GJvbGQg HCVhyRPLtV4yopcyv1lfyfu qCrDgQUDtUPn2YJm4UIPkmP hbLeHtJGJ4RgA2RML4fDXck Z7xzSez ppvrfX2iZzw+WMR2mWLdoZT UTA6zFkckqOF+QBEuZDF8pA sjPHzaNCInuT7bASWqQ5a4E iAwLjA1 VAjfW9QwlyS5NAEvwELbRGQ elTTPnJ1xzarlj1peauvkUt AuJVMdXUe7TAv1SZLrgAyrO iBsZWZ0 UnS1YLU8pUJxqD3xrLlkxcm deV6cCon+WdtvwQsxMTW2TJ o1F4XyFro7JQDwkBdtJG7sz GFkZGlu Is9rnKtpaCwsMO8oGYZpgnu it432QjKah4wfCUKzuYHlQH pwPDS4O20tc3Y9LMVtKIPgS IY6hUD3 nS4zxEbkmpcmpERkqApgyiV wzAavRHebMTuvZ374XFEgcM whAyNnPRp6R0RvStm4IUFmw BskXK2b fAZwJUztSm1ldVgufEuyMZ6 zGSKsnwmys256SiEwm9swQM FdhDJrCWnvLRI4J14gm2P7I CMwMDAw RBH3qQI8jO6wtShxiaukdUR mdDsgdmVydGljYWwtYWxpZ2 69ILSecEppWdClpIv6D0WkH yg4OCHm fJdmPB1daVFbYOftZl4usHm yhBotRV1hMLTpqdmja179Yx Vno9geCNAlzJXgTYrpHEX1J 60hi1O7 MSYrEXNlIPM5lGJ3dY0wuId nbjogbGVmdDsgdmVydGljYW feAYwpC437IXXevQkwCkMfa GllbnQg LYkdIQr7O3RhOymktWB+PC9 7LXEaWD71nIVefKGbo1tukK y0UyPbXIGnFCK1dStwCLbza 3JkZXIt E47czZYqu2K4ICFxfRekwUD uXoTpdJY5iX7pCLwrgvbrf8 dkghlhHjyjf0pzzp79zS88N 29sIHdp ZHRoPSIzMCUiIHZhbGlnbj0 rwI8eAu7+MNFftSI6sOP3qL 6wEYLvCsF1YOpqD147CkHoc CIvPjxj q3oys9iawZc0EmL8YUIwugW egRcpNKQ1o4IaDu80N53sFL dpZHRoPSIyMCUiIHZhbGlnb a0tlI9z Ii8+WHDftEM8yMT5zL2wFfU fCbQ5YIdcW965IcDxcOHfKp toU07vQ9XjeYY+AWAeFxr6C CBzdHls PY5qcKAyHAngXz2aBYZ2NdL eQoUcKEoiI9OlJQJadspjes gypCP3ZOZlCOKnpR79Dz4hh DogMTBw xTLLdJ5txdelw8oeubvhZbF cDPSbLMi0DKp1JCIopCulUh QdOMI0OoG1JQM2fWPkyV2up Glnbjog tK0bC8VjDERnvomdLo60mY8 kRzGoGpK3ADncUnn+U0FNUy wgQUxFWEFOREVSIExFRTwvd GQ+PHRk PYW0aIwcJPvbQPEsxX8hPZM qE1r7FhWjYjA8KBxaY1ZeKJ TowbafLl67eR5kUlYuXyB3L HuxN0Mb mjZ3SJDrxUPeEQtzACB3A96 io1H3HJQiGCFhDSD0hSF4iA 1hbGlnbjogbGVmdDsgdmVyd GljYWwt LUzqE726BDDlrFupXeApVaH 6NvP2Eim4F6BiJlg2KXAynI imBW7xbNTwMNodXt0gwYbyt DbaJA8v VAJkklyuHQUqyA8tLVMspJM hoMamZN7lFCVrkwcwi611Dk RaQTY0XBOrbAOdD5IpcC1vH iAjMDAw DFDkY3XzxOIhWCazM055NRy fLfG5KPYmbdDdA6VyITBvnD qdWeN4d5M8Io54THBMIMMzk zwvdGQ+ NMTaWKN6hRhbDKupPVDvkG0 dXWNiH3n1OpNjCoA6YKruT7 WwFJAxssytGj78pE3pQrMkS qW6GYxp L9SagmW4XKFcrVVhFCglLRD 1G14ew9A1LWZxODRhJIE9mL Q0qH1bsEturytvqPJqeLhek mVydGlj AOmyHQbmR330QKJrrOzfGs3 RFYH6X4HpOah8LAPznMqlMV 2soWYcQPvzOe9zyUvwzTdrK D9mHTUl kidgBPIncR0xJWRixVRjcYq aUL8uHUFznginc101DrXjMM Q2BTBeyBKvJ0TfnT5sKwCbX DAwMDAw I4MtsWGwSXfvH855JIlqMxY 3IRLeqrCaE5BmQSKdsIddTl M8y0L9Dp3NSCiycXP+PC90c e88K8Em AckhYyn6WKXyXLN3xBU0hI5 mZMKoVPryf5W5yEY0L7Urqs Lxjk6vl0zcMYJyXRgzW61wj KZli6M6 MTOrgBL7WECflTfuPmEjoE9 3Oyc+EUFtuQnzu6NaIuquc6 ewy5bexAg8BxDhZFWwzuGiu WduPSJ0 m8PtDx13M96wMKnhSZCfSAG iSJWyWVOksMqprp3ayY5uJv 8+EROlcPZ4mWA8eH8pSlExD gV2CGvs X116DqXrpDIhDzbkd1gid5t dlPc4EsUhNNLbztUudWvdOB D7r7HtLm66K7FmjAccl7GuD pa5le16 uDJig1W4oXL5D0PbQWRdxzp xcHOyxNxhQF7jFHFstiwoHT CahZ9tRGWlP8b6MlDzCaI9F YkbV9Zf jeG4TVRkfYPrZPOxbMTYsE7 slhfkq9ehcuasScBnDVBmFS h0GEc5HWEbkQiwWdUwXNW9U dF5PTY1 vLOubF5wqUyhwwzayK2jYnq +QUw6r3xliJOgJD7suZT1OU 73VG70yHDye2V3pNP3X0QsG GRpbmct reaicDK9ONEhJJYljW03Gm8 scUtoSh3tXSDcEWJ7YVWmdM ViF3ZxtX2xVtNmYOKrKPKtM 3RleHQt DQgcG728GIsfMvF3GTEqgoB lQ3PjEGKvvPaiGjE0z3H6Is 7IKX33PT35EQ78zOXox5L9x RY5J4Bf BCVpvtflmopywUO4DATaNND otA80Gk6psFggAk9iZOLuGK M3OUZgvVAuO5LzfH6nQxCqC DAwMDAw F4TeyVCfUDfeE096VXxhXfS 6FQSnvcJgA0EaCQPibRssSj L8j4A7Az9DQl91VY53QW89w KMah0K8 bPL7E2BvHOUqkzmrvuqbgAD 9HPPjHHQzbZ44Fb1ibVpbEx 4xTUHnSVQ9PHUivNIyF8Zbx T3kKrTa XOSsXYAmO0YufKIdOIkmG14 9MFrkHwD4OKGeqlCsU1OlMP BmbNcyBeN9a5F1Ps2WDOmec xq2C2Kq PjwvdHI+VD18BMDkPO76xRD kvFIdu4hneFx0FxLaTVBmLN P2kOdgITjud3YvQOIbG25jo HSot2P7 IGN (more content not included)... [facility] Coding Summary HTMLBase 64 OuovqiwfGZy6tWo+PGhlYWQ +UR4WDXVhD50hjWGdeG0hT5 NMTElOSywgQVBQTElOSyIgb cBpNH0ezDTaJOMu IC8+BI8gWVDkXutjfFCys6R 8vAT2K01rqz6lFXphbFB3IV NbBwTarntip4ctkCt0SRxaA mluOyBt ANNlpG35WKS3eW31Pb07qBL ftKYgn2jdjOo8GcNhLLApTS Z4oPtqYJssj8XwRQXwG49rv ALcn1I9 QKJuxWmlrZRhTdCgpWS1oI1 aOCtgukcuh8qvogheJgj4gn 50dQXry2Z0vQT6N3HxepX4C GJvbGQg BshmsXNShM5cysupz3jpznb mShMhPMLfRXe2YGn7SDCtiZ nqFkEeYG82AFV2LPWuyzKqO 2FsLWFs aOfqHrV6w0S7Yx2TV9ANAgj yE8JOTWIVLTkthJO+PC90cj 76Z3KkFcdjHlk5ZEIjFKV0h DS1tX8w AYGoUNvif0H2kOE2U3BkvoD mtf7ws2zzYXCyFKssI40mqX Chk6S8ANGcpEW2LZTqoQuaM iBzaG93 Oyc+RMKaqGsin4HbBufkn5x ll5tjlFm5AooqAPQqvqDwpJ nuFSB3b0LfHv5bJHJroBF0u AA9gL2h NsLaChO1JXofX687DpBdkDI zAuayU78fD6OolDE+PHRyPj z2BRWaxVkpHU2eT6ZnRMHtl mctbGVm tXidZH3dIMFkclmyAWEtcC6 bQBVtB9r7VbUyGtR8HVueU1 IrGJUxawgsMr12lD4eDwObN wX9XGwo X2JcroV1NMCugSWgEUpzRLV 5T86sd3M1HJAbEWNzVTD8cJ Z8iB4qbTasduujaDCehPbti mVydGlj NSbgVVmvQ521MFDwgVmfBqE vZGluZyBEYXRlOiAgMDIvMD UvMjAyNDwvdGQ+WAIsTSG8v WxlPSAn gKKrNPqtZz6miLhqnWxdGZ2 uWWYktmraPJTfnM3wHXMbcP UpxNhcZX8tKXHdqufhk438F iAxMHB0 JWQzqKTgP3CqjY5xIrEjZHC lOTTrZ1QywMWqXZfoL042MA mwLaS1HOZtgqPmM4DeMOMjj WduOiB0 g0V0Ve0Yx3KoophzP7MvuEH oTiGqYwofVGt1R5OkSgwxhG I+NW97JFGcWW97MZv8ZTT8o WxlPSdi ASOrB0GjuF3xFzMdBDLyPRX kOyc+PHRhYmxlIHdpZHRoPS ssPBJzDgGcjYyiPM3pWj7xK GVyLWNv xMqthVPnDzVuj2wzVYYbLBi aRJ3dxVzvT4ZleBR5POCcy3 t4Ce30R88tM2WlgPR+PGNvb ZW6kCP5 qO6gEqEuLzU4LEsnU628FyD plFImUjuch2uvm8tpuRl0Ei A0BAVekoSyyYkgPGU3j7EkJ g85N01v IHdpZHRoPSIxNSUiIHZhbGl woe4fqK6wPs3+BMHzvWZ5pF C0hQ6hOrGpSkQ7FYuaY763O nRvcCIv Wsegf9yrx0njxVs3PzUhGXC ggeMpkOazVND4m1ReDs46I7 WhdQvtk0MzRfo4tv48eAYfc 2G7cXN4 O4LqAFNoxnmfcBLeyZwvPP2 sTRDrlnzhNTQutB6oDIRhS2 i7JwYmHjB5TJhyE1XyiuT0J GJvbGQg KDDibDTKpG7kxmydz8oxrih rVhAaLQToKWb3RBi6GGVzsD xaDoCeTXL0WdC8BNL5aVYls D8poQst xdkkwJ3mDfb+IIH0wUNpoVC JQJ6fZcttmGO+GMFgHTR0cH uuOZalYMAegZ4oVSCsA2z3L iAwLjA1 VJwdF1IqbtY5HSEhoOTgJNK keEPHeY9qydfax2ptioaqLn SbMVGbIIu9IEs2DMOdaTfuD iBsZWZ0 QdL3HYU0zRZgcA3vpUartpg soU6oRam+PwnljTkcUIT5YK x9K5PpPko0GLBfsPbyOJ8rh GFkZGlu Tn6klPwcqBzoWY2zPSRhubl hb078VeLrd5mlBULndHJiXX jvVJF9A97ov4I3FJCbOZKaH YK1xUR7 vU7jvFsgxwobdYRnxKjvsmT vtEliMKswJZucQ089TZUexC pvPaEkRCj9O1GkDoz6MXQah QkqDD6w jYPuPHbtNk3bdCpdrChzDA4 gLBPwbbmqm918HbSgh8gvJI IyfLYhUEbfORV0A01xt9L4H CMwMDAw ZTG7kYH3tC9gjRuonmzjrXC mdDsgdmVydGljYWwtYWxpZ2 62VSItePgqMcAwgFd2U8ScF mp6QYWy vNlqFP5kxEEmMAraGh0xbEz tnPwzPP5cZAItkqlsp167Jo Usj9blVCXefQFqSYfyXTT3X 18yh1H3 CULsJTQyFEF9qWF7vE0ieYg nbjogbGVmdDsgdmVydGljYW aoBDdjQ272ZHTzlZduHaDhj GllbnQg MAqyVJh0J6LdHvusbBS+PC9 5UAZiYD02jGAsiXTix9vskF l8XaBiLTKfGWN5pIxmWPory 3JkZXIt K85axPQbw5A4UTHkbAbfoXI dFoIwoRP1aE4zCVdxoxvqh5 yxalpcNijwu8qeum97uP94R 29sIHdp ZHRoPSIzMCUiIHZhbGlnbj0 oiN2pKn3+HOFxsZE0yAH8kB 4cNHZaDzV8BJjmH838LfUzh CIvPjxj a8nmh4lxkJi4AbF6ZHNrpnA ddAzoZOM2r5HcAe23Z92mIQ dpZHRoPSIyMCUiIHZhbGlnb i5egM2g Ii8+YXMoqSU3bLZ4uQ9mPxC vNaS6OVxsN866AnQikFUaZf tcR92gN1ClzRL+PWZiUhi4C CBzdHls YU4seHWhAToyGx8aHFU6FhT iUgXjDEccS2XzHJAgjecwuo irsUB0FKWdMTFocB28Kw0ao DogMTBw fMLQiV7vuxwri5qjvrpxMdE jILNhGDj6BMl2GAEhvOhjOl PhTLI6EmN9QEM5kWOkwT3kg Glnbjog sG5yH6EvTZIbpwgoFc95eF4 zRgJoIjF6PKqlTmz+U0FNUy wgQUxFWEFOREVSIExFRTwvd GQ+PHRk NLL7uOfqFCbyVHUvwQ1zKJO fD8p1WrLqYzB5NMmlG2LyQN OkmuasVc65bG9oMjOlKjA0V DpbW6Hx dxO2CBVefUHhABnuVXM8W55 no6N1IYGeJRGwUGF8qEM0vG 1hbGlnbjogbGVmdDsgdmVyd GljYWwt ITlmZ030UXDbnZpxMxWpOwH 1SnV3Fpt3T5PqKlu0CKGkmR jlEI3qpNCuQJwjOk3jmYvoz MnlSY8b SZMdgybeRDYnnD8pNMZjzIM hzDxyYJ8zLCSzrdqxe546Mq ZlBJE1PINeqIBtJ0FgpZ7qT iAjMDAw BUCmF1QgiOJaBLexG183GYt fRbV4OPZngzVqF7IdYVSxkO tgOiA9f7Q4Ps51QTBKXBUvz zwvdGQ+ VWUzYOC4vFwqYVpwYEAoqT2 pDWZaS9w6BlMfBiK2IXhdU6 YdCELkisoaNw94hD8fXmSyA fU2MJik I3EjldI5VWOelSIpGIfpTBR 0C05zt1V4UVTuCQMoCQC0sO J4hJ8jnBjcrbpswGRpbKtdb mVydGlj BUsoQGabB635ADYsaAmnWj3 WPTZ8E4QqAvz5SETtiPihQW 1yeGMhLGcdUa6bqFchoKixS U3uSSJv kwvqGYGklF1dYTVyxMBbaKs rXL4rRWFqpicul740ZaSqWF I1LNSlwDBeA9JumT2wRnIwS DAwMDAw K3WalYDdACweW062UDqjOdU 2KFPgseXlJ6UnSCZyxQriAz V8a4B1Hq3SXEjakXZ+PC90c t31K8Bb MijjBbe3LRJfGBO0lSV8aZ3 eIYAjZKjib7K4xSC6C1Rfmu Wtfp0tp7mbMRTzVSlmD49sg AVei0U5 OTIlnIB9PFSgwRccPxEsxV3 3Oyc+TXNcvIzkz9AqJubex8 lyf0wvlPt9TeBmPSDfxkToo WduPSJ0 j0RjEp47R33qVOwfFUMtKFK pZFQwJUFmbSjyte1clX3jLq 8+ERLseHH4wOT3sC3jReVgX mS1NKjf M702SnAyfASsIabqd4lwg4a bjCk7XfNrWPCnzwHtiQaxCX W8q0PsCv56U3KkyPtun0RzI jk1ex53 vWYib4L9yVA1H5GpPAUftrd tgYBzxHneAH9rIOTranxsGF PppK8kYGNaP6l9PmEgZwL1O LdnF9Yx sfA2XSCrbMFlJZRopGHChC9 cgiuyk9leitejZqDqQRMkDV x9FQd0PPRliEixDtNfIXJ9P kQ0MJK2 bGKeaX7tsIkhmedvxU5rPqt +JGu9y6ehdPYoUY6ehKL8RF 00IS38oHVte0W4nBJ0M6OsO GRpbmct gvmnlPK4HSWvRUHiwH99Ui5 wqMyaQd5fVYAzIFZ3ABHxdA TxP2GaxT1qYtYvUNPvCPMiY 3RleHQt QJhdG142NPvwJjE1JESyfvF hE4EhWVNzaLtmGxZ1d9D2Rx 8HYC43PQ58LZ42mGEjv3J9u MG8F8Ql LPUcrnglkybxiCF7LZReBVN frU11Jz9raBsoMb4vWXAfJC J6UNPfnAMeD4RleA4hAoMqI DAwMDAw D0BmnTObMZkqS682YSgxGaQ 0WDZjxhDpS8GrKXGudWupYq I2a5K6Jf9WMc57JM54RS33g ONus0L6 dZF6A9YfFGMdgafnqryiyST 9KXMwKOWrdC50Bc6auXdjNk 4fNNScIWQ3SYIqdDIbC8Xkl C9iYvEf NFIqIVWdB5AbwPQoNRidF07 4PGldSiZ2PWEpwuJjL0PmKK IemJrpUjK5o3L2Zw2LIGgxh db9R2Nw PjwvdHI+CW08DLJdET39nKY jjRVda9fgiQq8UwVsAJUqIF G7kBkdWMnyd7JdEBUvY25ov KNkg9O9 IGN (more content not included)... [facility] Consent Formson 07-11-2023 Consent Forms [id number]#[id number] TGTIFF [facility] .Auto Diff 1on 07-06-2023 Auto Pershing % 7 % Normal 12 [facility] Comment on above: Performed By: #### 1 [id number], 1149175, 5464624218, 16424840, 8497204037, 8315828994, 60841722 ####[facility] (DEFAULT)[address] [place] [address] Baso Abs# 0.0 x10 Normal 0.0-0.2 [facility] Comment on above: Performed By: #### 1 [id number], 8266059, 8900439799, 25534701, 4148491447, 4347688668, 51186762 ####[facility] (DEFAULT)[address] [place] [address] Basophils/100 WBC (Bld) 0.1 % Low 0.2-2.0 [facility] Comment on above: Performed By: #### 1 [id number], 0619933, 6181224806, 33791736, 5176097358, 2564784664, 71342740 ####[facility] (DEFAULT)[address] [place] [address] Eos Abs# 0.2 x10 Normal 0.0-0.4 [facility] Comment on above: Performed By: #### 1 348973635, 3061103, 1559744740, 13905123, 4121212061, 3623586020, 24650380 ####[facility] (DEFAULT)[address] [place] [address] Eosinophils/100 WBC (Bld) 2.9 % Normal 0.9-4.0 [facility] Comment on above: Performed By: #### 1 295996605, 1085237, 4420726873, 31080310, 2564102089, 5945509330, 85160287 ####[facility] (DEFAULT)[address] [place] [address]1285 Lymph Abs# 1.7 x10 Normal 1.3-2.9 [facility] Comment on above: Performed By: #### 1 466858349, 0903594, 0028365638, 62117230, 5170020489, 6483988868, 55932047 ####[facility] (DEFAULT)[address] [place] [address] 07261 Lymphocytes/100 WBC (Bld) 31 % Normal 14-48 [facility] Comment on above: Performed By: #### 1 715508556, 5527696, 9207788649, 85368853, 6030243753, 5439888318, 08359287 ####[facility] (DEFAULT)[address] [place] [address]5514 Pershing Abs# 0.4 x10 Normal 0.0-0.8 [facility] Comment on above: Performed By: #### 1 283908364, 8784572, 0770555695, 20166489, 2045869456, 5384971958, 07664388 ####[facility] (DEFAULT)[address] [place] [address] 09500 Neut Abs# 3.3 x10 Normal 1.5-9.2 [facility] Comment on above: Performed By: #### 1 889369267, 2195670, 2905647023, 51764807, 3091828392, 1871516465, 18489382 ####[facility] (DEFAULT)[address] [place] [address]17 Neutrophils/100 WBC (Bld) 59 % Normal 44-88 [facility] Comment on above: Performed By: #### 1 885328809, 2837653, 6533085938, 32723269, 3363886520, 8955152737, 07057829 ####[facility] (DEFAULT)[address] [place] [address]37 BNP.on 07-06-2023 [address] Control Pass Normal [facility] Comment on above: Performed By: #### 1 521764210, 5475627, 5924901165, 68579224, 0884337610, 1800194883, 81186219 ####[facility] (DEFAULT)[address] [place] [address]131 Natriuretic peptide B (Bld) [Mass/Vol] 6.5 pg/mL Normal 0.0-100.0 [facility] Comment on above: Result Comment: BNP results greater than 100 pg/mL are considered abnormal and suggestive of patients with CHF. Higher BNP concentrations measured in the first 72 hours after an acute coronary syndorme are associated with an increased risk of , myocardial infarction, and CHF. Performed By: #### 1 185806309, 3797593, 5559435751, 71576161, 4791025854, 0507240415, 76446936 ####[facility] (DEFAULT)[address] [place] [address] 61488 CBC w/ Auto Diffon Erythrocyte distribution width (RBC) [Ratio] 13.0 % Normal 11.5-15.0 [facility] Comment on above: Performed By: #### 1 307690788, 1461460, 0350389220, 44599687, 9503016516, 2623819900, 87242188 ####[facility] (DEFAULT)[address] [place] [address]696 Hematocrit (Bld) [Volume fraction] 43.9 % Normal 34.8-51.9 [facility] Comment on above: Performed By: #### 1 706982364, 6270068, 3170883518, 82195974, 8681489974, 3554732122, 35969627 ####[facility] (DEFAULT)[address] [place] [address] 10342 Hemoglobin (Bld) [Mass/Vol] 14.9 g/dL Normal 11.8-17.7 [facility] Comment on above: Performed By: #### 1 882829806, 0996840, 9746978310, 36764727, 0135104182, 7491303654, 50682103 ####[facility] (DEFAULT)[address] [place] [address] Man Diff? Auto Invalid Interpretation Code [facility] Comment on above: Performed By: #### 1 181937112, 7198140, 3248603044, 75284993, 0708917559, 5092366653, 05330963 ####[facility] (DEFAULT)[address] [place] [address] 27895 MCH (RBC) [Entitic mass] 29 pg Normal 24-34 [facility] Comment on above: Performed By: #### 1 529599518, 5128767, 4044709985, 11824332, 4113974813, 5102498122, 28208727 ####[facility] (DEFAULT)[address] [place] [address] 56337 MCHC (RBC) [Mass/Vol] 34 g/dL Normal 26-37 [facility] Comment on above: Performed By: #### 1 835342981, 2392961, 3533725064, 76857314, 1799644532, 4397916035, 78544441 ####[facility] (DEFAULT)[address] [place] [address]1115 MCV (RBC) [Entitic vol] 86 fL Normal 81-100 [facility] Comment on above: Performed By: #### 1 966690736, 9074856, 0335569877, 17616542, 2218154373, 3481546462, 12238972 ####[facility] (DEFAULT)[address] [place] [address] 58313 Platelet 100 x10 Low 138-427 [facility] Comment on above: Performed By: #### 1 959377049, 0449960, 2808009364, 56681633, 8964379359, 4215452279, 54086319 ####[facility] (DEFAULT)[address] [place] [address] Platelet mean volume (Bld) [Entitic vol] 10.9 fL High 6.3-10.2 [facility] Comment on above: Performed By: #### 1 494804326, 3740111, 0898240410, 26846201, 1771627744, 1888007809, 81174230 ####[facility] (DEFAULT)[address] [place] [address] RBC 5.11 x10 Normal 3.70-5.30 [facility] Comment on above: Performed By: #### 1 681388804, 4195604, 3176510320, 09829116, 1838576060, 6915228587, 44949980 ####[facility] (DEFAULT)[address] [place] [address] WBC 5.6 x10 Normal 3.5-10.5 [facility] Comment on above: Performed By: #### 1 711581843, 7226273, 1907174358, 93634941, 8510872815, 4819965274, 53852835 ####[facility] (DEFAULT)[address] [place] [address] CMP Standardon 07-06-2023 eGFR Non AA >60 Invalid Interpretation Code [facility] Comment on above: Performed By: #### 1 386154740, 1675392, 1162242185, 56621941, 6855876100, 4220279762, 40751360 ####[facility] (DEFAULT)[address] [place] [address] eGFR AA >60 Invalid Interpretation Code [facility] Comment on above: Performed By: #### 1 027388202, 6273990, 1728163184, 56340444, 3774488903, 2439814344, 87642178 ####[facility] (DEFAULT)[address] [place] [address] Albumin [Mass/Vol] 4.1 g/dL Normal 3.5-5.0 [facility] Comment on above: Performed By: #### 1 832356241, 5435616, 2323491441, 40109748, 9149816933, 9698035791, 81450289 ####[facility] (DEFAULT)[address] [place] [address] Albumin/Globulin [Mass ratio] 1.4 {ratio} Normal 1.4-2.6 [facility] Comment on above: Performed By: #### 1 723870931, 5536149, 3044090445, 41447898, 3611394107, 2660516337, 74949244 ####[facility] (DEFAULT)[address] [place] [address] Alk Phos 56 IU/L Normal 32-91 [facility] Comment on above: Performed By: #### 1 930907994, 1864349, 5960242541, 25284306, 3261728247, 8502118696, 17361298 ####[facility] (DEFAULT)[address] [place] [address] ALT [Catalytic activity/Vol] 73.0 U/L High 17.0-63.0 [facility] Comment on above: Performed By: #### 1 730083275, 0695730, 2021319934, 10309755, 9645723127, 0619700019, 58495195 ####[facility] (DEFAULT)[address] [place] [address] AST [Catalytic activity/Vol] 41 U/L Normal 15-41 [facility] Comment on above: Performed By: #### 1 696507981, 3503167, 2177615043, 81812762, 2716318202, 2474571466, 34254117 ####[facility] (DEFAULT)[address] [place] [address] Bili Total 0.7 mg/dL Normal 0.3-1.2 [facility] Comment on above: Performed By: #### 1 063388585, 9482500, 1492173049, 13849526, 9115573957, 8971009035, 58400810 ####[facility] (DEFAULT)[address] [place] [address] 33048 Creatinine [Mass/Vol] 0.92 mg/dL Normal 0.90-1.30 [facility] Comment on above: Performed By: #### 1 436941528, 7553138, 4510059452, 39429288, 4665367776, 1761564171, 20656411 ####[facility] (DEFAULT)[address] [place] [address] 01266 Globulin (S) [Mass/Vol] 2.9 g/dL Normal 1.5-4.3 [facility] Comment on above: Performed By: #### 1 858984130, 2674225, 3964503423, 35776573, 6226413999, 9046505898, 91289339 ####[facility] (DEFAULT)[address] [place] [address] 48373 Osmolality 284 mOsm/L Invalid Interpretation Code [facility] Comment on above: Performed By: #### 1 285508046, 5051030, 5815152492, 49745786, 5592735360, 6313849943, 01564977 ####[facility] (DEFAULT)[address] [place] [address] 58453 Protein [Mass/Vol] 7.0 g/dL Normal 6.5-8.1 [facility] Comment on above: Performed By: #### 1 314970608, 0648084, 6198227327, 65565142, 0511800560, 6858460811, 02469190 ####[facility] (DEFAULT)[address] [place] [address] 28539 Urea nitrogen [Mass/Vol] 25 mg/dL Normal 8-26 [facility] Comment on above: Performed By: #### 1 574629181, 5414173, 7516808061, 01937872, 4454001288, 6389772757, 72193811 ####[facility] (DEFAULT)[address] [place] [address] 84589 Urea nitrogen/Creatinine [Mass ratio] 27.1 mg/mg High 4.6-16.2 [facility] Comment on above: Performed By: #### 1 169949953, 0688582, 2966037202, 49515335, 1620386628, 8464587731, 86037933 ####[facility] (DEFAULT)[address] [place] [address] 19612 Anion gap [Moles/Vol] 9.7 mmol/L Normal 5.0-19.0 [facility] Comment on above: Performed By: #### 1 804816131, 0783137, 5505475231, 76452490, 9046256912, 0585952312, 82958825 ####[facility] (DEFAULT)[address] [place] [address] 65159 Calcium [Mass/Vol] 9.1 mg/dL Normal 8.9-10.3 [facility] Comment on above: Performed By: #### 1 174133081, 3214267, 1926737124, 93316756, 0600586593, 8253144297, 59926466 ####[facility] (DEFAULT)[address] [place] [address] 47161 Chloride [Moles/Vol] 105 mmol/L Normal 101-111 [facility] Comment on above: Performed By: #### 1 886999794, 1842555, 4207926119, 46674022, 1520482377, 0449816936, 02224102 ####[facility] (DEFAULT)[address] [place] [address] 19880 CO2 [Moles/Vol] 29 mmol/L Normal 21-32 [facility] Comment on above: Performed By: #### 1 144085334, 7371955, 7053488370, 99151879, 3073249677, 7427692701, 67438694 ####[facility] (DEFAULT)[address] [place] [address] 73779 Glucose [Mass/Vol] 112.0 mg/dL Normal 74.0-118.0 [facility] Comment on above: Performed By: #### 1 228136528, 2141677, 2834154042, 46431837, 2532343905, [id number], [id number] ####[facility] (DEFAULT)[address] [place] [address] Potassium [Moles/Vol] 3.7 mmol/L Normal 3.6-5.1 [facility] Comment on above: Performed By: #### 1 [id number], 2115739, [id number], 91746763, 6381979140, [id number], [id number] ####[facility] (DEFAULT)[address] [place] [address] Sodium [Moles/Vol] 140.0 mmol/L Normal 136.0-144.0 [facility] Comment on above: Performed By: #### 1 [id number], 4227614, [id number], 97322131, 5033921018, 5610018268, [id number] ####[facility] (DEFAULT)[address] [place] [address] Breakpoint Chem Normal [facility] Comment on above: Performed By: #### 1 [id number], 3170194, [id number], 66794282, 7350793290, 9881073148, [id number] ####[facility] (DEFAULT)[address] [place] [address] HgbA1c Standardon 07-06-2023 .Hb 16.8 Invalid Interpretation Code [facility] Comment on above: Performed By: #### 1 [id number], 5406989, 4613495742, 47204039, 9123592209, 9478432598, 74229048 ####[facility] (DEFAULT)[address] [place] [address] .Hgb A1c 0.66 g/dL Invalid Interpretation Code [facility] Comment on above: Performed By: #### 1 [id number], 9884933, 5251293182, 93692952, 1263077366, 5711782131, 25480803 ####[facility] (DEFAULT)[address] [place] [address] Glucose [Mass/Vol] 117 mg/dL Invalid Interpretation Code [facility] Comment on above: Performed By: #### 1 [id number], 1771347, 3649259051, 80251203, 8677898260, 4571438919, 28304207 ####[facility] (DEFAULT)[address] [place] [address] HbA1c (Bld) [Mass fraction] 5.7 % Normal 4.6-6.2 [facility] Comment on above: Performed By: #### 1 [id number], 9041019, 5996375809, 66679643, 3945157270, 1756026712, 34183932 ####[facility] (DEFAULT)[address] [place] [address] Iron Profileon 07-06-2023 Iron [Mass/Vol] 79.0 ug/dL Normal 45.0-182.0 [facility] Comment on above: Performed By: #### 1 [id number], 7880547, 5772775322, 73848967, 5183848160, 5284273201, 85294613 ####[facility] (DEFAULT)[address] [place] [address]76 Iron Sat 20 % Normal 20-55 [facility] Comment on above: Performed By: #### 1 [id number], 3392112, 4388570636, 77695779, 2200413867, 9467084009, 62781327 ####[facility] (DEFAULT)[address] [place] [address] TIBC 402 mcg/dL High 250-400 [facility] Comment on above: Performed By: #### 1 [id number], 1844117, 1267766512, 39976378, 3624386048, 9295369598, 68425698 ####[facility] (DEFAULT)[address] [place] [address]879 Transferrin [Mass/Vol] 287.3 mg/dL Normal 180.0-329.0 [facility] Comment on above: Performed By: #### 1 [id number], 6468325, 7698592081, 88169152, 7650047541, 8506128614, 72126056 ####[facility] (DEFAULT)[address] [place] [address]90 Lipid Panel Standard, Non-Fa stingon 07-06-2023 Cholesterol [Mass/Vol] 154.0 mg/dL Normal 66.0-200.0 [facility] Comment on above: Performed By: #### 1 [id number], 8392584, 1412309060, 11107050, 1463057753, 4054522311, 53613590 ####[facility] (DEFAULT)[address] [place] [address] Cholesterol in HDL [Mass/Vol] 35 mg/dL Low 40-71 [facility] Comment on above: Performed By: #### 1 [id number], 1344391, 9552604543, 93186680, 3598565079, 0540867715, 27267616 ####[facility] (DEFAULT)[address] [place] [address] Cholesterol in LDL [Mass/Vol] 83 mg/dL Normal 1-100 [facility] Comment on above: Performed By: #### 1 [id number], 9947950, 2003856169, 79186577, 9925818520, 7051191502, 64487506 ####[facility] (DEFAULT)[address] [place] [address]2339 Cholesterol.total/Ch olesterol in HDL [Mass ratio] 4.3 {ratio} Normal 0.0-4.5 [facility] Comment on above: Performed By: #### 1 [id number], 8359350, 6837169273, 20344665, 2736056660, 8653840483, 92796024 ####[facility] (DEFAULT)[address] [place] [address]1984 Triglyceride [Mass/Vol] 177.0 mg/dL High 0.0-150.0 [facility] Comment on above: Performed By: #### 1 [id number], 3970704, 4422900664, 63389757, 0568301899, 9521107222, 46795685 ####[facility] (DEFAULT)[address] [place] [address]9529 VLDL. 35 mg/dL Normal 5-40 [facility] Comment on above: Performed By: #### 1 [id number], 7580066, 3247103127, 80332209, 7274288538, 2255093390, 11923310 ####[facility] (DEFAULT)[address] [place] [address] Provider Orderson 07-06-2023 Provider Orders [id number] 0OTGTIFF [facility] US LE Arterial Duplex Bilate ralon [...] Augusto Mensah MD 07/06/23 4:09 pm Technologist: [facility] US LE Venous Duplex Bilatera patel 07-06-2023 [...] Augusto Mensah MD 07/06/23 4:07 pm Technologist: ,[facility] Coding Summaryon 07-01-2023 Coding Summary HTMLBase 64 TyzzivbbVIe9uZl+PGhlYWQ +SU2BSRCdA17cwCGyuE8kW5 NMTElOSywgQVBQTElOSyIgb yAyUG7wsHYsTLGc IC8+FQ8sZZAiZnuyxHGhw1U 7jPC5D46bld6oLYbffNA8IR RcZcKivjsni8tygGt8MCbrK mluOyBt KKCqtA51BRU1yV15La77nGR prFKyn8eieDu6IxGjZIUdXF V4aXvdETzgf8BvRJIkD38wi LMxi5M7 OMWopAhhxNTbMjPulGU6qW9 lLTbaspelf8whkohhEox1ub 94cJDpt1S1jEI6W9MxrcH6X GJvbGQg RbuzeMDApY7xpgibo9ezifh bDnFaYCBoOJm8KUx8MFZmuQ lbWsDjYY38LPM1OMZamlJaT 2FsLWFs iToyDzJ3u5P9Mi2HX8NMVlr kZ6UAJFREPLszvLS+PC90cj 20Q2DkBhnpAcz8BUBpMMZ9m XZ1eW6v TMJzOXsem1M0mCD3R8NfsoV kur9xw9lcZFPlBPxkR85qfU Upz5M6YWIiuKH4WQKcmAkhO iBzaG93 Oyc+YQEffFljc6MdPxrjv8m ca6qtbZx7CdyfSBZnqiXnhM zbJCL8o0LfVp9gUBQvvPS6e ZC7qX7c LwMdBzN8KTqnY891RkWmxTW aZgvvT51kC7BhjMR+PHRyPj f2NWHtcLrqNO0lB0JoDIVmt mctbGVm aZurSC4wMFUsjjftFZEowY0 fZJYqX4v4IkZqMgX9GPggC5 XhQVQtcslwMz49yV9jDmAbI aS2MFgh W1JxjqC8TOZiaPMaUHboXJX 9G30vb1D7IEJsWJHaWSS1fO N8bG0ydBeajljwvFTdxKrvu mVydGlj TRlzBGnyN046VDIeyPnnRmU vZGluZyBEYXRlOiAgMDEvMj YvMjAyNDwvdGQ+SESdYUA5p WxlPSAn hZUbHMiuKy9yuNnmmKxlKR6 rHAHfshenRWFveH5mGMDxqG FsxGtrEJ0vEBJsskisn492B iAxMHB0 LYMvbFBjX7SzvX7eCoIjBPY hBSZqG3MyfFLlKErxG547LF arTxM2JKVltnHbW2SiHZBhw WduOiB0 g4E0Dh3Fz1UspjovI1SjiOS mHaDxEnhkKAs8N5DcIcmmpY I+IU79WMIlPL42FVv5VYH2h WxlPSdi LIQvH8DmvE2iRpTfHCJqCDF kOyc+PHRhYmxlIHdpZHRoPS faSYTjTfHebSbhUJ5iDb7qB GVyLWNv iPlvoOPuGsHtu0mnPPJnKGi eNT3toZcuU0WilVH5UUFyf2 b9Ig59B17wG3OyhBH+PGNvb VR6dAV3 yD4aHaOfHfG8VTvxL307EeV hcYMrBbkjo2ztx8nnuYg0Jb K4BKOhneQafSfaIMQ8h4DaV y27G66a IHdpZHRoPSIxNSUiIHZhbGl jdx5kuY6uHy6+KKHtpSM1aF D9cE6dLqHyYbK2KAxmK897P nRvcCIv Edzbd1yqo7jzkOg6KeAjXAE rzqQxkPwyNAT2e3AtIi92F6 KdtAane2IrLmu5ab00wXZjk 8V3qIY7 Y0DsOQPazdrcwPZpbBgdGZ1 yKPIfpewaKDHgbH4jQUFoV3 s3FoHvOfN3RPxtN3OnxcV1Y GJvbGQg PPUfcWVApM4sajuev7ekdev tZvQfOJWeRNs6XDi6UUMimG bwOzVcGDI4QoD8RVD6hOMfz I4wfQlu ndvslB0gCtc+PNZ8rSVoqZW LKC6kWllheJR+AOWgITI2gV esLFmkUBMmtT6pZKCyX1i6Z iAwLjA1 PJekW2LwpnD0THGzpVQoUMQ guQARyR0ngpglk9xaidjoUw GuMUDrMXc8YJj1RANluFbqW iBsZWZ0 EcU2RPN4pNEypJ2prKqyhii ceA5xUas+SfkdtRsmOME4YJ u8O2ZeUqr5JQCnlBcaPR1dw GFkZGlu Dz0suKzgkUpkVH5gLBFnzbg hg213ObXdt2ssGJDpvARyDL qtISK8R65xg2D6ZFLzCPHjF LS8kIA8 mN3tpEztstszbJMxyIowqhT oiZnwSAaxAKtaU870BLExkO clQnMePKn0G1SbBts7BNWoz CssPN0s fLSyDJtoGe6cnKposOjxIZ2 nROKxcchtu087WwEad6qaUU QedUFoSOeiSUR3V69rp6Q9P CMwMDAw EVC8eWJ0tQ7rpPsceuxpePD mdDsgdmVydGljYWwtYWxpZ2 85JBYduRmmMpLrnJh0C8ZqB kl5CLGp gQqbUO6ubDIzNRdeTb5cuAm tmYetKL9pMZNgmucuy285Nd Jlh3hxJLSmvTMvMOgyYFN6Y 63ad9H8 XIQyCMGiHZZ4gZQ1fY1gkCi nbjogbGVmdDsgdmVydGljYW hmBKwjV871ISGkyXboQvOow GllbnQg DSjzZIc9Z5XhKpgasYT+PC9 1JHDcUS04iNJzlOFjs1wxnR l6UlNhJJLjEGX6rKxiAHpyv 3JkZXIt K97gwSWvo4T1DVBsuTmwvIC vSbMaqVV3jZ8jUNajzjkmp4 bsoyjdCqhac2iqfx71jZ00Q 29sIHdp ZHRoPSIzMCUiIHZhbGlnbj0 oiC7mIs7+YKCqhPV6kLP7gL 5iHGChVlV9PTchS917IeFqi CIvPjxj x7dkk5xitVi4KfW0JOVrnrG evMlfSQA8m8UtSs78S72vVO dpZHRoPSIyMCUiIHZhbGlnb e8ifS2f Ii8+JPFykZJ3pFL7tQ4mZeM yRtK5GBfmP465MfKblXYrGh nyF59hT5JvhOF+ZNHoRyr7D CBzdHls NL2hrIXzXCkeFq2qVAQ8JsY uLuAfTCebV0VjLHMqlphszh qoeZD8OGNwCCYarZ00Yy6qv DogMTBw gPOAdZ1nyhlus7vcoorxZeC pDNFoAIj5IHx5FYZgsUtrCt FqNOC2DoT3PTS2wHWpnH1ct Glnbjog uV9mU2WtKSEzghiaWv05lK7 mCuKoEqL6WPnwBum+U0FNUy wgQUxFWEFOREVSIExFRTwvd GQ+PHRk JCG5mHakMOzhEPJpiL1bSPM wY5o7CmNtWhX6XDkaK0DqMG TksxpwMi43eQ9uAeLsNuZ5H NbfY4Jn uuG0TIUmeSDcFQgeLJI7W26 mi1V2CDIyFTStJNP5tLQ4gI 1hbGlnbjogbGVmdDsgdmVyd GljYWwt WSgzP920XHGkjBmxSqOhAaZ 0LoX5Pcr6A1WnIgk6KCNbeX myBN9ldVTuPWfoJd4uoCjvw EwyTM9s NEXwsppfQWGavI4jKDXruPA ncLpuRE8gYSHrboykb382Bm IaJJJ1QZWmnUZrG7GegO5yD iAjMDAw VFNxH6OxjCVyGGauY853LCk nJjT7FLKpxxEwJ7OkKWPogJ wdHoU3a5U8Np68SRBQYVVtx zwvdGQ+ IPQxKEK5kNkqYMahVFGudD6 kPMQvP8c2HdVfQeG4JJwzK5 SuGQOhxhvpGt75qZ4bGaIuX eF4NAwx N7LlxbK5RNFptZRmCIdbWHN 0L17bj3R4SNBdJPFcEWO6cN U2wY0dwNepihlgzFGebWxbq mVydGlj FHyuSNfxY546VCVvcVqnLb4 YIAS4T4PlEbw5JGBucFukGP 3clCLiBAjeJb4pgVhhlOtrH W3nIEJn scsePJOxgS1qYOKbpCCqlRp gRK9hRTTodzxxx314YeSnJN S6CVYwiXWnZ8UjcN7jZoLlE DAwMDAw I8BjyLJlOLlqV185EGhmBqK 7ASZglfRhL2MkUCRfjXmsPr U1v2O5Tt6TLFaixFJ+PC90c r18M6Hd PcguXhl3BRSsNWC4vSW0tH3 rVWAlNDdwl3P9sBB4Q8Ywkc Epol1zu8efSEMsYXvwT45yj MHjd0A7 PQPhbYQ5YURcvTuhDrTjyA4 3Oyc+WEQvtKnal2QlZsakz9 hxk3mncTn5GmYiYSDvzaGaw WduPSJ0 e2WbIl25C64jIJasUJVtUPF eHMPqJHOacDmeai3nnZ4pPf 8+HLJgfTL9vRU4xW4hThWnN eI6RJgj S028YoCnrLWbVysui1pog1q ncXn4YvAmUXYiggHpwFzsYH U3r8GgIa20B8AkyGfex1CzQ bc3hz49 hDAhb9O4rAF3B2ObVWNqews wbAWapBskFS7vASIpbrllSR FpuB8cAYKkR5v2CqPyVjP0M KqhK7Af ymP2WCSgbQVhNPUmlYYEcU4 ibdote7qdefwvMhQhFMVxTD j5BQi2RGQtxNzxUjZmVOX6Q lW1RFH0 yLFfpU8qaCwqqrbdjQ6sDbn +BBg7v1qwiXVnJN9idUV7DM 28BJ71rOXce8J7fGJ1T1RuL GRpbmct etpvgSN2JUKmQJEyyG25Qi3 bmJmrRi7yRAZeOVR5UAZrzJ HeV2OppZ6mShAmRHUfNRMuS 3RleHQt DKbaY843BKhoKnC7MLWpbmF kC4BnDRTwxQlpFtP6q9A5Xt 4DLX79SQ28LL71jQPqi9H8i YM5A8Ts PBOnjgeyxiqagWQ5PFLmQUS xqV87Xr0slSufJn7vMWMkRK V5MZPtxCNfZ3PfmK2zIhLeB DAwMDAw S6IolFOgRYtoF099WHvdXjC 0TWPvihHcG7LxWLIgnOddBf K2o4S6Lp2GDf44VQ02GH55a COou5Z5 eUK5R6XyXHGefegpqxcmbMI 0QAAlCKMswZ50Qo3rhXxbPf 9yLQGlRFN3YTJzvAPeE3Ooa Y6sKgDg XROpMCDaN8TtkZJtOHhtP27 5PAbhPlC3UMCrssKpC5VuVH TgaQydTmC9q6L3Ib2RIDcmq yy2X4Uw PjwvdHI+PR79EIBtIH15hPH stFLky8qreWk6TuRyYTIgPL D9fVziDYwpc7MpBMIzQ87vg HZkq1O9 IGN (more content not included)... [facility] Provider Orderson 06-24-2023 Provider Orders [id number] TGTIFF [facility] ED Clinical Summaryon 2023 ED Clinical Summary [facility] ? Urgent Care [address] [place] [address] Clinical Summary PERSON INFORMATION Name: SPIKE NIELSEN Age: 43 Years Sex: MALE : 1980 MRN: Acct#: Visit Reason: UC - Skin Problem: simple; RIGHT LEG WOUND CHECK Arrival: 06/16/2023 13:33:24 Discharge: 06/16/2023 14:24:00 LOS: 000 00:51 Check In: 06/16/2023 13:33:24 Checkout: 06/16/2023 14:24:00 Address: [address] [place] [address] PCP: Provider, None PROVIDER INFORMATION Provider Role [...] verbalizes understanding of instructions given Comment: Normal [facility] ED Patient Summaryon 024 ED Patient Summary [facility] ? Urgent Care [address] [place] [address] PATIENT DISCHARGE INSTRUCTIONS Patient Information Name: SPIKE [...] at home: Medicines ? Take or apply rsks-xdj-gtvscuy and prescription medicines only as told by [...] streak s (more content not included)... Normal [facility] 024 Urgent Care Record [facility] ? 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 were for an urgent problem and are not intended as complete care. It is important for you to follow up with a doctor, nurse practitioner, or physician?s purchasing assistant for ongoing care. If your symptoms [...] so we can reach you if necessary. [facility] has provided you with a complete list of medications post discharge. Please inform your retail pharmacist/provider of your visit and for further instruction on these medications. Any specific questions regarding your chronic medications and dosages should be discussed with your primary care physician(s) and/or pharmacist. New Medications [facility] [address] [place], [place] [id number], [phone] mupirocin topical (mupirocin 2% topical ointment) 1 [...] Diastolic Blood Pressur (more content not included)... [facility] Fozia 04-14-2023 [facility] Telephone (GENBMI) SPIKE NIELSEN ([id number]) 1980 M Date Time Provider Department 04/14/23 FADI ROBERSON During your visit today, we recorded the following information about you: Fadi Roberson, FRANCIA 04/14/2023 5:14 PM Signed [facility] COORDINATION TELEPHONE ENCOUNTER Pt mother is helping him. [facility] with call back number Allergies [...] once daily. - famotidine/Ca carb/mag hydrox (ACID DEPUTY DIRECTOR OF FINANCE COMPLETE, FAMOT, ORAL) Take 1 tablet by mouth twice daily. - B Complex Vitamins capsule Take 1 capsule by mouth once daily. - ny-osh-oskwq acid-lutein (CENTRUM SILVER) 400-250 mcg chew Take [...] Encounter Status:Closed by FADI ROBERSON on 04/14/23 [facility] 01-28-2023 [facility] Telephone (NavutI) SPIKE NIELSEN ([id number]) 1980 M Date Time Provider Department 01/28/23 FADI ROBERSON [facility] During your visit today, we [...] once daily. - famotidine/Ca carb/mag hydrox (ACID DEPUTY DIRECTOR OF FINANCE COMPLETE, FAMOT, ORAL) Take 1 tablet by mouth twice daily. - B Complex Vitamins capsule Take 1 capsule by mouth once daily. - wa-ccu-ababz acid-lutein (CENTRUM SILVER) 400-250 mcg chew Take [...] Encounter Status:Closed by FADI ROBERSON on 01/28/23 [facility] Coding Summaryon 01-26-2023 [facility] BkvowzxfINi7yAi+PGhlYWQ +DV5BABWdJ96bxZYfjR7xH7 NMTElOSywgQVBQTElOSyIgb sIiMM8jhMYuAONa IC8+CN3rPPQjTzdewRVhf6J 3fXM7D43ydp9aDHwevLJ8CI QdRfIeodsvl6unzEp4FVaiQ mluOyBt JIBfvU98PLH0rL41Nn50yWU kiFBat3gtfWm9UtAlCDQyCG R5qRcpXIijc6HjXIPkM29iv VYse1Y9 RQQptOsdgTHaYhYnuVN4vF8 jSVhedmmfc7dvlkjiNtm4ij 24eKTkf1W9eIF9A9VzlkO3G GJvbGQg VkwezINLzA3mrswem9hetac nYtGdHPCrVKp1OPm0DEWjuH liUlXmJS97TLC8QLXtosBfX 2FsLWFs vLtrGqU3q9M8Vd8CX8OIAew kV0LRAXUDFUmzjBY+PC90cj 31F8QaMmpwFuj2FZDeIPO0a IO4fD3h OTUpNRyeb8Q9dRF6C7KynkJ wfj4ip4bqOBNeNFthY11voS Yrf4Y5NJKurMF4RAWoyDhnU iBzaG93 Oyc+AFWcwDqzj7JpFwnig8x in5vueUp9WnuzPFGnquHocQ ltURF4v3WaYx5uIUEmvLO5s YE5oN1u QrDnUvA0HBtgQ155ShQjsCU gMfwlH85dC9KjrSJ+PHRyPj t4QRVohUszYW5tF4JmDZQsy mctbGVm kUbqUO7xEXTgpmaxCKUugH9 eZEDkC3y4HnHzWvZ0FWwxU2 GpBTJuhkdlBe41fO1mYpOuJ sF7IJok H3GtzhO8LCSmiIEcXJjcPYA 7R13kq7X8TEXdFEFzRNQ5xM F1sH3oaTkeozqgiHJonEfvu mVydGlj DMzbGHisG265VEOqnUpmOlT vZGluZyBEYXRlOiAgMDgvMj MvMjAyMzwvdGQ+SBTkVPZ7i WxlPSAn cBHfBHwyNb2stXhvmXbcBK7 kOBGzkgaoUBYsnX3oTILvpB WvmXbvIE2pNBEktugos820V iAxMHB0 JLGljHTpB6PhzU5cIfRxYYK zKVTqL0UbyIBqGCeeR332JS ruEwH2GYIhjaSbN0IrBIMdw WduOiB0 x2R8Bc9Kx6McmrsuN7JpnPT fWcNuJtjoTUf8E8TzTgntbQ I+YL86MKJxWH56ZDv1KXJ2y WxlPSdi RWPbV8KkaE8iRoHtLKJsHSH kOyc+PHRhYmxlIHdpZHRoPS nmBJXtNpKmjJazKQ3tUn2yX GVyLWNv zSlocXQwWuAkx9oiZPAfVSj uXX8azTgdO9RdvHB6LFWim0 b3Xu66Q90yF0SiqHO+PGNvb XQ5bNQ8 yD5sCfDhSdC1TMotZ554ChS ijFKyCgxag3igb2sfxPn3Fr N1KDQaleQjnCfrLFT8k3YqY o22M11s IHdpZHRoPSIxNSUiIHZhbGl ipg0hlQ7hVb1+YABsnGS6iJ I9pD9lPySxTgS4HInwR685M nRvcCIv Zepxp8tbs0kchYu2JjSzIUX cslSnfGakJBX3x5GkYn55G0 LlsMaem1IzGbt8js62eSHuv 5A7nKB8 R8CxSBVvprgisPDsyOuhQO1 sTEAkkdxjZFBhpI1hVRGyE1 i4UjBtVnQ7GOiaR7HhkiU8O GJvbGQg CSXqlEZBjJ9eaitus2nnckz wGnKfBEYiWGm7ZMv3FWFdaM qdHbMuTAI7KsN1EQF3oFOnz A0qbKal rtqnfY8jYrv+OXX2eDOviXI YZX1wObkibMZ+CEIsBKM6iU miKAflTIStyM7yKGByG2z5F iAwLjA1 RXzuM7UdaxQ2LKUmaBElKWP ixRUDgH6kykrmo1vuacxnSv EbHIFmQZe9MLg6UDGmxHkcN iBsZWZ0 XhI2UYA7fMCifS0pfSkbvrq tmH5kUzn+VuhimVkpUER9RC v2W5XzDtp4CESaoDcaNF3id GFkZGlu Rr1jzTmwpQngJF9wBKAaarp qm154QnBzg1aeSVEibYVuFQ awXDY5N63ix1N3JLIrBVLdZ NT7jES4 aQ7myClplmnfoIZjoSfgwvT qlTdnREzkFDkkR204QIHfqJ apTzUxBWu1X3ArIwa7LNPbs QhlSN2f tUJlLTrhZu3bnCacfXsiUL7 wCVCjecizc140HtJim2mpHT UfwTAqZXarNGA0J11cl7V6U CMwMDAw BDJ7wJT1jF0vtIyrnowbkPW mdDsgdmVydGljYWwtYWxpZ2 89SQSpcPtyCwItnIl4D7MjN ol1WWDs tVemHL3otGZvWAxgMj4ogOw dpZbpUN5zUTXijwniu202Nk Bcc8pyZXLkfFCfGQvuKAE3F 09yg8R9 ORZnHDRpWBU8pGD9iU9lzXo nbjogbGVmdDsgdmVydGljYW gfYHdiJ617FOOltXxkFpIcr GllbnQg YNskFHj8T6KyNiwowBO+PC9 6LLEnQW46fHTpbBTsv5vxiO q8PiBwAMNbECL3sBboYDkay 3JkZXIt L98rrPXyd0A4MKVjpTzbrFB nQhIrdOO6pU5xITdooavfb6 ziotobKgbnu8ycrh31qS30W 29sIHdp ZHRoPSIzMCUiIHZhbGlnbj0 ppX3sQq1+GUJylFR2xPU1sH 2vCDGfJgW5QXqsD752HgLie CIvPjxj f4idx0famVd7RvL5GPYxbkC ygQdnTES2t0DkKn17F66mNY dpZHRoPSIyMCUiIHZhbGlnb u5pvD9r Ii8+DAJahYX8lAI5iV6qCjW yMbB8OVbjQ097DaRmoQVhQn chL18fI9HxhWG+PIHdQbx9S CBzdHls NS0bkNBgHYtlEa1zLXS4OqS fRpJuOOsbL9ZlPSRonlllkd akvVV6JYUcPPTqbF87Qz8xs DogMTBw dNIWgR7xbvfjf0pebedgMbM fBKFwHRu0PLe3LPIeiXaiVb FrOJL5VoH7OQZ2fOUqoF3nm Glnbjog qE6jX4TzRABnyzjfOp15eC9 qSrHpWoO9ZPbuJim+U0FNUy wgQUxFWEFOREVSIExFRTwvd GQ+PHRk XEL7rInoPCwmFWRkqT5cLYO mH5d5PnYtXlF5KAjqP3GiMP MnxujvDv01fQ3jZlXyCnG0H TfoI2Ho hcN7TTZasNBxOJmwQZS5Z40 mw3I3UJEaANTgZNW9aUH8cW 1hbGlnbjogbGVmdDsgdmVyd GljYWwt VSubL915JUOfjRgnWkTfIbB 7NuA3Ffd4L0DyDwe1XDMjgA qlOP6ukBPlWNltQm3agDodq MhvAO8e JAAdwsmzLIPefL7hWRWziDX yvAtuPR9bRDGaygftk884Ys PkRSB0ILBfjFOlO3PexT4dI iAjMDAw HCMsS6TajTPyTHwmC886IFe qQqN0ZHTaikBbB1HeQGDitT kzKpD0c6O2Vg20JBWHHQCsd zwvdGQ+ JQNsZYJ6dMkhLUttPYDcaT7 eXNGsM0g4ZrEbSlS5ZGijS9 TfVEJtdyqaEa00rD8hGuDqV mB9TWdg P8NrewC6MZGrpSGtQNowHTM 4H99es9Q1FNFhZWSzJHX3uB Q1fM4lkYqxthgkrBDrzKgvd mVydGlj IEjhPHlyU712BEAjcDklZb9 HLOA6Q2LfRru0WMWruWycWK 2thZHyZQhaMr8rlEpmmFxzE R1qCNLb nojlERFngQ9qKTBifNYclTz rVQ1eRDNuxtloy196OoVaYQ G5QOWipAIdF8IkqE3yGyJeB DAwMDAw B7StgWBmWKcpH094QVrbOsV 4FHVrwdKaX7HzQLXchBozWp H3i4U5Zm1AqGVrS9KzW5m1H 3RkPjwv dHI+EO14IMUeWZ78eMMkzWA yc0hnuCo1SbUsCOVcQAN5wF cpCRfjv9CxHYDlL95efJZvl 1I4UMQt vGvqqWVeOcLhtEO0yO1wEVh jfxjyv5jjicmuCnghz5wctc 59jL84G86uEOerNTDiXRBpA CUiIHZh jXyqlb0qaY0wUy7+PGNvbCB 0rLJ3lV9eRoClFtR7FKiqB3 62UaAbdFJbFvkag9gxv3ruq Yl9SpWz UJZxbtTjfZpqJFM7s1NaLp3 3W22tMJlvBPVeLQHqOXLuNN HgiUddxn5uiF8fNb4+PC9jb 9uhsm94 aI39cZK+ZXDhVSJ2wUdmTRj wABUziD7cDHhoZxE6YSWmBx OcgZ60bQIwGApfEr4pbAmti BopVF1i ESCdivqdo828XyBci1eeTDS sjLFpYYvdOYX1C46dt1K4GY DdDARdWZH7bQV7mD5bkLctb jogbGVm aZzzahVrdHcsNVpjEOhzQ96 4UZKzpKxpQyTwmBBsB3uldw ZHTK8kHhvkqLC+WOOkWBD8v WxlPSdw LZQbqW3dITZiD2g3RzIwUjY 0AXxeG0YlnkR8HFUsnBVqLS YktLTKxG5tvkuqr3otfngxA zAwMDAw IGa2MHj0GVIsyMazEpJkHRK 1ArG3LFK3gYCzvC2cmNyyjc ulhP2fGqm+RklOOjwvdGQ+P HRkIHN0 aVrhAUqvSTPwvQ5eOYCqW0z 8VoCrJmE0EUrkY5QilgP9JG YitGSkYHMgcZJScO5tgdxog 2xvcjog PhKvDZRrZMw6MFh8WFCukSx yLrCvOYH5KpY4TGO5sMCoqB 1lvKqtxwcuzX9pAzh+TVJOO jwvdGQ+ FVCxECM1nXksDXkgRCQiiE5 cISAwB7g4JwKwSgK6MDkyG5 PkhsU1KVCanNFmNBKnmDVGg F8kkuij m4kbtqvnZiUdJLHfVXx3LWg 1TBJuaVsmScLiZJU3KwU5IJ A6xBBjrF0qsGxcirxrrI3mD yc+UGF5 IXD8AF22DV96M2FlInpynJP ibGU+PHRhYmxlIHdpZHRoPS uxTZOoIdJseCbeAF8sEr4tI GVyLWNv bGx (more content not included)... [facility] 01-21-2023 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 - famotidine/Ca carb/mag hydrox (ACID DEPUTY DIRECTOR OF FINANCE COMPLETE, FAMOT, ORAL) Take 1 tablet by mouth twice daily. - B Complex Vitamins capsule Take 1 capsule by mouth once daily. - sw-wso-xsstv acid-lutein (CENTRUM SILVER) 400-250 mcg chew Take [...] Encounter Status:Closed by MINAL PUGA on 01/22/23 [facility] CNOVon 01-20-2023 CNOV Office Visit (GENSMN ) SPIKE NIELSEN ([id number]) 1980 M Date Time Provider Department 8/17/23 [...] No Wilman Zahraa 01/20/2023 9:13 AM Signed [facility] Abdominal [facility] - HISTORY AND PHYSICAL Chief Complaint: recurrent paraumbilical hernia HPI: Spike Nielsen is a 42 year old male who presents with a recurrent paraumbilical hernia after primary repair during a lap muareen with Dr. Crow in 2019. He was [...] mouth once daily. famotidine/Ca carb/mag hydrox (ACID DEPUTY DIRECTOR OF FINANCE COMPLETE, FAMOT, ORAL) Take 1 tablet by mouth twice daily. B Complex Vitamins capsule Take 1 capsule by mouth once daily. jx-vsb-rjfox acid-lutein (CENTRUM SILVER) 400-250 mcg chew Take [...] not in (more content not included)... Normal [facility] Coding Summaryon 01-20-2023 Coding Summary HTMLBase 64 HdzfekkvKNd0zYn+PGhlYWQ +ZZ1FJOVbJ82oyPOlwQ0qW9 NMTElOSywgQVBQTElOSyIgb zCbAH5afMNpYJVk IC8+RG9xYUXaOgduiJBtd1S 9aTO0B60awk9xYNhhoES9KK IrAkZksffto1xeaMg2JDmfS mluOyBt EUPdlG47ATK5jF35Yu70hCT gvEEkz6zkuOv5BgTcVCHxJS D6cYqwOIbik0WeISNoH36xh VMhb2T3 RRUipXpgfELsXpSpjMU7wL4 hUAdgtzbel5tdtfalMhr9zc 36qUDrn7N7wIY5L0GfvoD0Y GJvbGQg EpxhqNZEoW7kiouuy8iajfb oUeDtAEThKZj8IIt8RXKbjA cgGjAfRC02VED0SXSkvhVeE 2FsLWFs fUtfBbK7u0U5Qz6NO4BYJqa tE7ATSUULBMwquAQ+PC90cj 79K2RsYsuqFqn5HGKwEDP4y GI4wG6x SKBvNYrxo0O6jFY1U7RftbE ljh8hs0roNOMpLFpdY01mdP Jkz6D9IQNkdKY2KEFnqJdvP iBzaG93 Oyc+UZJetXlai6ZzYhodu2z uq4yimIo1FuvnEKMakeNpoH xhOUT5m6SjBa8lFJPnxZL1u DH1aG8v DhHuZuJ4XCoeQ878HbNgeRV lSopbD14dV6QnpNJ+PHRyPj b0NPAkqIgkSR7bF7TfXOPpu mctbGVm pXboNP5sAVEbkdrhKPEehV1 wAQLyF6h7TsSsTuF9YJuqN7 LaLZItvsgrXq49gY1hRjMsR iN8MIbx L1OjxyF2KVMkrOAiZWmdWWW 2U12hi5X4ZUJzFQAaRTD4iU X2uP2mlNcsqlordRTwnGrmq mVydGlj TNkhMWeyP213USRvwDkjDzN vZGluZyBEYXRlOiAgMDgvMT cvMjAyMzwvdGQ+PCQkPOH8x WxlPSAn zHEgEVmyMw5cjQhexSslUL2 hQPBpttkzRUKqeX8aIQMcmF EauBmzSI1eNKUlhuehe409T iAxMHB0 RSTedPUwG3QlbL3mVfYtSFG sQYYnO2OndHKwTJxqV127FK hbGmM6NKIrwyFhD6FyIAYze WduOiB0 y3P4Lg7El9NgmzduI0IjvUL lTaElRtkrFFy4F5UeSmsdmB I+QI35LVWtZP10NLz8VIV5e WxlPSdi QHJvO8AcqK6qCgOfJTFzWKV kOyc+PHRhYmxlIHdpZHRoPS bdUJWuDlEozTrvHQ4dLo0aP GVyLWNv iUvvfVZiOqMlx0koOSRsSHn mRM8isYeqD8GpvWY6UCMjx6 k5Lx92Y95fV9UshWC+PGNvb AH2xZO0 iH3kHzFpQfM7FGthT140NlX gjUSzTxvtu2ggx3ohiBt3Qi X3RUTxedQvfCryMQK1u4VfS e71O86j IHdpZHRoPSIxNSUiIHZhbGl ryf9otF6lJx7+YYZjgDD5qW J8cM7cZmMkMlZ7SDsnG012C nRvcCIv Uksqb0ktw4qqoGh6SgGjPOG bgaKuwByrEAN9m3FvXe48C6 TotOich1BuDyr1vm69bLOms 2D1sID6 S4LwBDHifwqhdMTttEkyJA6 bALHdsupmYRAfiD1kICBmN3 w2RdXyDmQ9GRqeD3ZvkhI2L GJvbGQg CYHcmXSRlT1jkyzfo8pelrh xYwMuWTXoOIy5OKe3KMCbjD gdYmQyVOA3NhJ4URM5oMQsw C3gpUtd sontrM6qFzi+VTC6sUExoMO LCO7aJiiqwMT+DTRdVGG5iJ yvTKglHGGbnC3vCXVcN3h7G iAwLjA1 JKfkJ6LoaqK7QENxzGDpEWS pfYTVrC2lfbxyj2asrgttYa YhTWWnDWb4XQx5PZCqmVkmU iBsZWZ0 MqK4SFJ5oGUxmQ5asAosmvz nuV1bWak+ValwgZahCXN2TB z9L5AiExb1GGSygGtkMK5xj GFkZGlu Kv1cgWxilDuhPP0kPLNqels rw743DpDcu2kiPMQrqGDcRB zjXPV2K32dp2R6BVXqIQQwI RP5lCX9 hP0dcZfofxtbfMOgcXrhdsR wtHgeBGpdQEvmA245YBKpvX sgUlOzEEp3J3FnTeg1KWUae BibFV7s bFSuOXbrSi2utSorwAlwNQ8 rVDZphhlhz150InMfp3qhDD ThjSFmFVihPNR3A22ew9J6D CMwMDAw LKT2aCF7zD8goTipdorogIN mdDsgdmVydGljYWwtYWxpZ2 61PJBkkHagKpRckMg5M9LwT kj2KUEp zEwmHO5gkRMpXKytTp1nxHz tjLfdQB1yFDKknpmpo987Ww Psm7qrYUEdhMInZGegDWF2Z 91kr9X6 GNTdZFNySNW8tTB5uP7duRk nbjogbGVmdDsgdmVydGljYW umWMaeP234OPCzsSovGdLlr GllbnQg LWgzARx2B8EiZapgeSZ+PC9 3OGJaRD30yNKvmHQxb3rmrK i5WeWaMBWmIZQ1yJfkHUgdx 3JkZXIt A04lqDTtw4P8FMYsyFozcTB tQrQvaXG7fR7hGYxjighrm3 icinllEickl5teii42tL77V 29sIHdp ZHRoPSIzMCUiIHZhbGlnbj0 bkI7cIp9+QVDhdAD7yKH7pN 8lSEKpJyH1FWwkZ908VeZpc CIvPjxj f2jws4pvhWv4EwL1LPAaodC iaWhuESU9z5XuDd68V34gHO dpZHRoPSIyMCUiIHZhbGlnb j5mcW1n Ii8+VQJsuOH4oIU6rE4xSsR tNmX4AItqJ470YaCewFAnUc bnX07wP5NruUE+NASgGqs0X CBzdHls SJ5ddCPzELjyCl8jEBR5TaJ wQoVkPCzvC8HvYMCkoqkcne [id number] DogMTBw zMOMdN1ibmruz6fixnmbUjJ fEDUiRFn5JLp3BFPabRgvJy WuBZX2TxN7KEO7rBOjkQ3oa Glnbjog zL1zS1RuDGUlxdkmTl99oT2 jCrNbJqW8ILkjIau+U0FNUy wgQUxFWEFOREVSIExFRTwvd GQ+PHRk YCC1sWdhVZalRTBnyD2lGAS gW4n7NaKaTwB5CRbcL2QjDR DnpjgcCa79vK4pDdHyLrL7F CndV2Qu aeW7EWRddBLbFLphNPQ8K53 jc2I3IACcSGQqGYP5lFI7xD 1hbGlnbjogbGVmdDsgdmVyd GljYWwt DTkcG956LBVfmDhjIvJfPuA 7NaT6Nbx4E7AnCbe7PVNdrD piVE6fsKRbNCdwXp1fpImzl KqoIL9q ZBYopkkzDKRfaT8xPYNcxTP tzFesWE3yOIWvesrzc799An BmIBJ0SZAwsLHfU8FubS3iK iAjMDAw NSCxC8BscSVcXCenG894MGw aYrM7IDDobdYeY5LxTDXerI lsGzL1t8A3Vr38YBANKDOcg zwvdGQ+ ZWDkTYW9sLjoOAmfGBRmwR7 aHXIfH0i0NvIlZmK7ESseO4 IrDIZrkazjPe71eU1fOtDqV zO8YCfr K8RossP7KXOylJDsJLvzVBT 7Y84qe8A8DGEpTLXpBWE4mG J1lS1oiSudoednhRMbsQbzh mVydGlj XMxsGGkxR778GYCzbPqyZx4 KJFJ4Q0UbLqs0TSSlgNowTC 8sgGUhLLmfAc4cxOwtxTpwX W2eFVBr ibzyPEYyfB4tTDRatKGvrTy qEX7sBDVioqtih197QoMsUS V6RWXlvTJfJ7GgqZ4uLjAyI DAwMDAw T5HqgKIrCMrbL142GVyzMzZ 4RSGxhgDlN6NiLFDbhGkaNs R4d7S9Dg9ZPYgfaNT+PC90c g04J6Lt QekuDpp7SGSjBHH3hKX0bX4 nJTIoHCnkp4S7vAT8H6Iaef Qmic7ah1heOOCpLWibQ83wq ITcz3N1 PZLmlWP7OASmeUjqYnJgsS3 3Oyc+ZSDyoWzco0SdGhamp4 soj1huuEd9LqYwCNBtlaHsk WduPSJ0 n1ZsSq46K92xYVatXCCgMXS yHSVaMTObtEfknv8rtG2iLb 8+ZKUdpKR4iDT1fP1gJkWoR gS9VLvc R872MwMkpUVpBgeoc2dvt0m tsRm5GsXwMXSdexXhiNejFE W1j1FqQj83J5WwyQcix0CqQ bp0tv72 mPFhd0C6nXC0R5DdDIDmyty qpRUhkKraPK3aWHZqkcotRP GjjC1dPCEoW7h7OzCtQeY2W OchK4Rw abI4XKLvjWNkYSXfdXBMxY8 pggpxe7wzuovhZtIrGGFjVB k3LTz0JCTazVwoTbYpFNH5Y fH7MWO4 qMHliR9dnKxxwauwxL7dJct +WKp5n4vrpFPqEK3quRC4XB 75FM80nHBwo2A2fRQ4D0LsG GRpbmct qcgejIJ7UKTkTIOagP57Td7 dkVncDx6xPCSiWKI1NCPahL DsT8RzrZ0gDiVgPGTzLEOxN 3RleHQt DAplF327ORxtJlY6NDZeakQ cP9FaQDUvpWwqZcU6k7K8Ca 2CLZ00KB42SZ16wHLzk6I8v EZ7H4Hw ZUJjzygrqauapRV8FJWzWER tzZ17Xl6zvRkhMh5gSPCkZY Q3FAYgtAMjD2YdmA1rUaHiF DAwMDAw E8JmcDQlDDdeE982CKjaKeT 6QZNoejRvY9VzXPQttOtnXc R3d4F7Tc5VYl21YN81JR29n GNmw9D6 sZX4D9OxIIAqjwwgdhjgjPZ 9YSPfFXGndP08Zp4ypTnhVq 9uCPAqNXP0NNLzqYIlH7Utz M2eNpGx LIJdLMNwS0MymNOgHOmeW77 1UYnoMvO5MRNxokDdV0XaMM OtbEgmJgL6m0X4Zh7LHObrh bx3Z9Ia PjwvdHI+MD25OTGnIO38lUW wiTOfp2wupYd7JuRzSDQhWF Y7wStcZXfkl5XtSJBjQ38yt ISmy0C4 IGN (more content not included)... Normal [facility] CT Abdomen/Pelvis w/o Contra ston [...] MD 01/19/23 11:35 a Technologist: Aman ZAVALA [facility] ED Clinical Summaryon 2022 ED Clinical Summary [facility] - Emergency Department [address] [place], [place] [id number] ED Clinical Summary PERSON INFORMATION Name: SPIKE NIELSEN Age: 42 Years Sex: MALE : 1980 MRN: Acct#: Visit Reason: Ear pain; Chills; Hernia; CHILLS, BODY ACHES, L EAR PAIN, PAIN WHEN BREATHING Arrival: 01/15/2023 06:31:06 Discharge: 01/15/2023 07:45:00 LOS: 000 01:14 Check In: 01/15/2023 06:31:06 Checkout:01/15/2023 07:45:00 Address: [address] [place] [id number] PCP: Provider, None PROVIDER INFORMATION Provider Role [...] a previous hernia repair by surgeon in Home. Stated that he has appointment to follow-up [...] 1-2 times per year Other Comment: POB: [place] - 02/26/2019 15:28 - Carmen Jama Substance [...] user 0 (more content not included)... Normal [facility] ED Note - Physicianon 2022 ED Note [...] a previous hernia repair by surgeon in Home. Stated that he has appointment to follow-up [...] 1-2 times per year Other Comment: POB: [place] - 02/26/2019 15:28 - Carmen Jama Substance [...] abdomen, gr (more content not included)... Normal [facility] ED Note-Nursingon 01-15-2023 ED Note-Nursing AAOx3. SANTOS. Skin warm,dry, pink. REspirations regular, even. C/O ABD pain over his ABD hernia that is ongoing and is 10/10, but states he3 has had a fever and body aches. Has left lower leg redness. PMS intact. Breath sounds CTA bilat. Mom at cart side, interacts well with pt. Normal [facility] ED Patient Summaryon 023 ED Patient Summary [facility] - Emergency Department [address] [place] [address] PATIENT DISCHARGE INSTRUCTIONS Patient Information Name: SPIKE NIELSEN Age: 42 Years Date of : 1980 Reason For Visit: Ear pain; Chills; Hernia; CHILLS, BODY ACHES, L EAR PAIN, PAIN WHEN BREATHING Arrival Time: 01/15/2023 06:31:06 Primary Care Physician: Provider, None Attending Physician: Kareem Sanchez MD Comment: Visit Diagnosis: Diagnoses This Visit Cellulitis (L03.90) Cellulitis of left anterior lower leg (L03.116) Chills ([id number]) Ear pain ([id number]) Elevated blood pressure reading (R03.0) Hernia ([id number]) The Pharmacy at [facility] is open Tuesday through Tuesday from [...] alcohol and/or drug addiction problems; contact the [facility] 27/12 Crisis Hotline -Text 7TZKF je [phone]. If you received any narcotics, sedation, or [...] legal documents With: Address: When: John Olmstead [address] [place] [address] Business (1) Within 5 to 7 days Comments: Contact your assigned on-call doctor for a follow-up appointment if you do not have a local family doctor or PCP. Alternatively, you may also follow-up in the Urgent Care at [facility] if you are not able [...] treatment you received today in the [facility] Emergency Department were for an urgent problem and are not intended as complete care. It is important for you to follow up with a doctor, nurse practitioner, or physician?s purchasing assistant for ongoing care. If your symptoms [...] so we can reach you if necessary. [facility] Emergency Department has provided you with a complete list of medications post discharge. Please inform your retail pharmacist/provider of your visit and for further instruction on these medications. Any specific questions regarding your chronic medications and dosages should be discussed with your primary care physician(s) and/or pharmacist. New Medications [facility] [address] [place], [place] [id number], [phone] cephalexin (cephalexin 500 mg oral capsule) 2 [...] day. hy (more content not included)... Normal [facility] Provider Orderson 01-07-2023 Provider Orders [id number] [id number] Normal [facility] CT ABD WOon 06-23-2020 CT ABD WO [...] [facility] CBC w/Auto Differentialon Anemia CAM SPECIALIST Normal [facility] Comment on above: Performed By: #### C BC #### [facility] [address] [place] [address] Anisocytosis Ql (Bld) CAM SPECIALIST Normal [facility] Comment on above: Performed By: #### C BC #### [facility] [address] [place] [address] Basophils Abs. # 0.0 K/uL Normal 0.0-0.1 [facility] Comment on above: Performed By: #### C BC #### [facility] [address] [place] [address] Basophils/100 WBC (Bld) 0.3 % Normal 0.2-1.0 [facility] Comment on above: Performed By: #### C BC #### [facility] [place] [address] [place] [address] Basophils/100 WBC (Bld) CAM SPECIALIST Normal [facility] Comment on above: Performed By: #### C BC #### [facility] [place] [address] [place] [address] Bosophillia # CAM SPECIALIST Normal [facility] Comment on above: Performed By: #### C BC #### [facility] [place] [address] [place] [address] Eosinophils (Bld) [#/Vol] 0.0 10*3/uL Normal 0.0-0.2 [facility] Comment on above: Performed By: #### C BC #### [facility] [place] [address] [place] [address] Eosinophils (Bld) [#/Vol] CAM SPECIALIST Normal [facility] Comment on above: Performed By: #### C BC #### [facility] [place] [address] [place] [address] Eosinophils/100 WBC (Bld) 0.2 % Low 0.9-2.9 [facility] Comment on above: Performed By: #### C BC #### [facility] [place] [address] [place] [address] Eosinophils/100 WBC (Bld) CAM SPECIALIST Normal [facility] Comment on above: Performed By: #### C BC #### [facility] [place] [address] [place] [address] Erythocytosis CAM SPECIALIST Normal [facility] Comment on above: Performed By: #### C BC #### [facility] [place] [address] [place] [address] Erythrocyte distribution width (RBC) [Ratio] 13.5 % Normal 11.5-14.5 [facility] Comment on above: Performed By: #### C BC #### [facility] [place] [address] [place] [address] Hematocrit (Bld) [Volume fraction] 41.8 % Normal 36.7-50.6 [facility] Comment on above: Performed By: #### C BC #### [facility] [place] [address] [place] [address] Hemoglobin (Bld) [Mass/Vol] 14.0 g/dL Normal 12.4-17.3 [facility] Comment on above: Performed By: #### C BC #### [facility] [address] [place] [address] Hypochromia CAM SPECIALIST Normal [facility] Comment on above: Performed By: #### C BC #### [facility] [address] [place] [address] Large Platelets CAM SPECIALIST Normal [facility] Comment on above: Performed By: #### C BC #### [facility] [address] [place] [address] Leukocytosis CAM SPECIALIST Normal [facility] Comment on above: Performed By: #### C BC #### [facility] [address] [place] [address] Leukopenia CAM SPECIALIST Normal [facility] Comment on above: Performed By: #### C BC #### [facility] [address] [place] [address] Lymphocytes (Bld) [#/Vol] 1.0 10*3/uL Low 1.3-2.9 [facility] Comment on above: Performed By: #### C BC #### [facility] [address] [place] [address] Lymphocytes (Bld) [#/Vol] CAM SPECIALIST Normal [facility] Comment on above: Performed By: #### C BC #### [facility] [place] [address] [place] [address] Lymphocytes/100 WBC (Bld) CAM SPECIALIST Normal [facility] Comment on above: Performed By: #### C BC #### [facility] [place] [address] [place] [address] Lymphocytes/100 WBC (Bld) 26.9 % Normal 17.0-45.5 [facility] Comment on above: Performed By: #### C BC #### [facility] [address] [place] [address] Lymphocytosis # CAM SPECIALIST Normal [facility] Comment on above: Performed By: #### C BC #### [facility] [address] [place] [address] Lymphocytosis % CAM SPECIALIST Normal [facility] Comment on above: Performed By: #### C BC #### [facility] [address] [place] [address] Macrocytosis CAM SPECIALIST Normal [facility] Comment on above: Performed By: #### C BC #### [facility] [address] [place] [address] MCH (RBC) [Entitic mass] 29.2 pg Normal 27.0-31.0 [facility] Comment on above: Performed By: #### C BC #### [facility] [address] [place] [address] MCHC (RBC) [Mass/Vol] 33.5 g/dL Normal 33.0-37.0 [facility] Comment on above: Performed By: #### C BC #### [facility] [place] [address] [address] MCV (RBC) [Entitic vol] 87.0 fL Normal 80.0-94.0 [facility] Comment on above: Performed By: #### C BC #### [facility] [place] [address] [place] [address] Microcytosis CAM SPECIALIST Normal [facility] Comment on above: Performed By: #### C BC #### [facility] [place] [address] [place] [address] Monocytes (Bld) [#/Vol] 0.3 10*3/uL Normal 0.3-0.8 [facility] Comment on above: Performed By: #### C BC #### [facility] [place] [address] [place] [address] Monocytes/100 WBC (Bld) 7.1 % Normal 5.5-11.7 [facility] Comment on above: Performed By: #### C BC #### [facility] [place] [address] [place] [address] Monocytosis % CAM SPECIALIST Normal [facility] Comment on above: Performed By: #### C BC #### [facility] [place] [address] [place] [address] Neutropenia # CAM SPECIALIST Normal [facility] Comment on above: Performed By: #### C BC #### [facility] [place] [address] [address] Neutropenia % CAM SPECIALIST Normal [facility] Comment on above: Performed By: #### C BC #### [facility] [place] [address] [address] Neutrophils (Bld) [#/Vol] CAM SPECIALIST Normal [facility] Comment on above: Performed By: #### C BC #### [facility] [place] [address] [place] [address] Neutrophils Abs. # 2.4 K/uL Normal 2.2-4.8 [facility] Comment on above: Performed By: #### C BC #### [facility] [place] [address] [place] [address] Neutrophils/100 WBC (Bld) CAM SPECIALIST Normal [facility] Comment on above: Performed By: #### C BC #### [facility] [place] [address] [place] [address] Neutrophils/100 WBC (Bld) 65.5 % High 43.0-65.0 [facility] Comment on above: Performed By: #### C BC #### [facility] [place] [address] [place] [address] Nucleated RBC (Bld) [#/Vol] 0.0 10*3/uL Normal [facility] Comment on above: Performed By: #### C BC #### [facility] [address] [place] [address] Nucleated RBC/100 WBC (Bld) [Ratio] 0.0 % [facility] Comment on above: Performed By: #### C BC #### [facility] [place] [address] [place] [address] Pancytopenia CAM SPECIALIST Normal [facility] Comment on above: Performed By: #### C BC #### [facility] [place] [address] [place] [address] Platelet mean volume (Bld) [Entitic vol] 10.7 fL High 7.4-10.4 [facility] Comment on above: Performed By: #### C BC #### [facility] [place] [address] [place] [address] Platelets (Bld) [#/Vol] 91 10*3/uL Low 148-402 [facility] Comment on above: Performed By: #### C BC #### [facility] [place] [address] [place] [address] Poikilocytosis CAM SPECIALIST Normal [facility] Comment on above: Performed By: #### C BC #### [facility] [place] [address] [place] [address] RBC (Bld) [#/Vol] 4.80 10*6/uL Normal 4.13-5.69 [facility] Comment on above: Performed By: #### C BC #### [facility] [place] [address] [place] [address] Small Platelets CAM SPECIALIST Normal [facility] Comment on above: Performed By: #### C BC #### [facility] [place] [address] [place] [address] Thrombocytopenia CAM SPECIALIST Normal [facility] Comment on above: Performed By: #### C BC #### [facility] [place] [address] [place] [address] Thrombocytopenia. CAM SPECIALIST Normal [facility] Comment on above: Performed By: #### C BC #### [facility] [place] [address] [place] [address] Thrombocytosis CAM SPECIALIST Normal [facility] Comment on above: Performed By: #### C BC #### [facility] [place] [address] [place] [address] WBC (Bld) [#/Vol] 3.7 10*3/uL Normal 3.6-10.8 [facility] Comment on above: Performed By: #### C BC #### [facility] [place] [address] [place] [address] Comprehensive Metabolic Pane patel 04-21-2020 Albumin [Mass/Vol] 3.7 g/dL Normal 3.4-5.0 [facility] Comment on above: Performed By: #### C MP #### [facility] [place] [address] [place] [address] Albumin/Globulin [Mass ratio] 1.4 {ratio} Normal 1.1-2.5 [facility] Comment on above: Performed By: #### C MP #### [facility] [place] [address] [place] [address] ALP [Catalytic activity/Vol] 70 U/L Normal 54-112 [facility] Comment on above: Performed By: #### C MP #### [facility] [place] [address] [place] [address] ALT [Catalytic activity/Vol] 94 U/L High 13-66 [facility] Comment on above: Performed By: #### C MP #### [facility] [place] [address] [place] [address] Anion gap [Moles/Vol] 9.1 mmol/L Normal 8.0-16.0 [facility] Comment on above: Performed By: #### C MP #### [facility] [place] [address] [place] [address] AST [Catalytic activity/Vol] 33 U/L Normal 3-39 [facility] Comment on above: Performed By: #### C MP #### [facility] [place] [address] [place] [address] Bilirubin Ql (U) 0.37 mg/dL Normal 0.00-0.99 [facility] Comment on above: Performed By: #### C MP #### [facility] [place] [address] [place] [address] Calcium [Mass/Vol] 8.8 mg/dL Normal 8.2-10.0 [facility] Comment on above: Performed By: #### C MP #### [facility] [address] [place] [address] Chloride [Moles/Vol] 109 mmol/L Normal 94-110 [facility] Comment on above: Performed By: #### C MP #### [facility] [address] [place] [address] CO2 [Moles/Vol] 31 mmol/L Normal 21-34 [facility] Comment on above: Performed By: #### C MP #### [facility] [address] [place] [address] Creatinine [Mass/Vol] 0.71 mg/dL Normal 0.50-1.17 [facility] Comment on above: Performed By: #### C MP #### [facility] [address] [place] [address] GFR/1.73 sq M predicted among blacks MDRD (S/P/Bld) [Vol rate/Area] mL/min/{1.73_m2} Normal >60 [facility] Comment on above: Result Comment: Coil [employer] eliana Kidney Disease less than 60 mL/min/1.73 m2 Kidney Failure less than 15 mL/min/1.73 m2 Average estimated GFR by age: 40-49 years 99 mL/min/1.73 m2 Performed By: #### C MP #### [facility] [address] [place] [address] GFR/1.73 sq M predicted among non-blacks MDRD (S/P/Bld) [Vol rate/Area] mL/min/{1.73_m2} Normal >60 [facility] Comment on above: Performed By: #### C MP #### [facility] [place] [address] [place] [address] Globulin (S) [Mass/Vol] 2.6 g/dL Normal 1.5-4.5 [facility] Comment on above: Result Comment: CO RRECTED REPORT: Previous result was 2.7 at 13:04 on 04/21/20 Performed By: #### C MP #### [facility] [address] [place] [address] Glucose [Mass/Vol] 112 mg/dL High 65-100 [facility] Comment on above: Performed By: #### C MP #### [facility] [address] [place] [address] Potassium [Moles/Vol] 4.1 mmol/L Normal 3.3-5.1 [facility] Comment on above: Performed By: #### C MP #### [facility] [address] [place] [address] Protein [Mass/Vol] 6.3 g/dL Normal 6.1-8.2 [facility] Comment on above: Performed By: #### C MP #### [facility] [place] [address] [facility] [place] [address] Sodium [Moles/Vol] 145 mmol/L Normal 132-145 [facility] Comment on above: Performed By: #### C MP #### [facility] [place] [address] [place] [address] Urea nitrogen [Mass/Vol] 19.2 mg/dL Normal 3.2-26.9 [facility] Comment on above: Performed By: #### C MP #### [facility] [address] [place] [address] Urea nitrogen/Creatinine [Mass ratio] 27 mg/mg High 6-20 [facility] Comment on above: Performed By: #### C MP #### [facility] [address] [place] [address] Hemoglobin A1con 04-21-2020 HbA1c (Bld) [Mass fraction] 5.6 % Normal 4.8-5.6 [facility] Comment on above: Result Comment: Pred iabetes: 5.7 - 6.4 Diabetes: >6.4 Glycemic control for adults with diabetes: <7.0 Performed at: [facility] [address] [id number] Chargeback Analyst: Romulo Peng PhD, Phone: [phone] Performed By: #### H A1C #### [facility] [address] [place] [address] Lipid Panelon 04-21-2020 Cholesterol [Mass/Vol] 121 mg/dL Normal 0-200 [facility] Comment on above: Performed By: #### L IPID #### [facility] [address] [place] [address] Cholesterol in HDL [Mass/Vol] 37 mg/dL Low 39-96 [facility] Comment on above: Performed By: #### L IPID #### [facility] [address] [place] [address] Cholesterol in LDL [Mass/Vol] 55 mg/dL Normal 0-99 [facility] Comment on above: Performed By: #### L IPID #### [facility] [address] [place] [address] Cholesterol in LDL/Cholesterol in HDL [Mass ratio] 1.5 mg/dL Normal 0.0-3.6 [facility] Comment on above: Performed By: #### L IPID #### [facility] [address] [place] [address] Cholesterol in VLDL [Mass/Vol] 29 mg/dL Normal 5-40 [facility] Comment on above: Performed By: #### L IPID #### [facility] [address] [place] [address] Cholesterol.total/Ch olesterol in HDL [Mass ratio] 3.3 {ratio} Normal 0.0-5.0 [facility] Comment on above: Performed By: #### L IPID #### [facility] [address] [place] [address] Triglyceride [Mass/Vol] 146 mg/dL Normal 0-149 [facility] Comment on above: Result Comment: 150- 199 Borderline High 200-499 High >499 Very High Performed By: #### L IPID #### [facility] [address] [place] [address] Thyroid [place] Profileon Thyroid [place] Comment: see below Normal [facility] Comment on above: Result Comment: Star ting December 16, the Thyroid [place] has been changed. Please consult the back of our lab requisition. Performed By: #### C BC #### [facility] [address] [place] [address] TSH, 3rd Generation 1.740 uIU/L Normal 0.358-3.740 [facility] Comment on above: Result Comment: NOTE -Dietary supplements containing high biotin levels may cause significant interference with affected lab tests, including cardiovascular diagnostic tests and hormone tests that use biotin technology. Incorrect test results may be generated if there is biotin in the patients specimen. Performed By: #### C BC #### [facility] [address] [place] [address] ALT (SGPT)on 12-03-2019 ALT [Catalytic activity/Vol] 93 U/L High 13-66 [facility] Comment on above: Performed By: #### A LT #### [facility] [address] [place] [address] AST (SGOT)on 12-03-2019 AST [Catalytic activity/Vol] 39 U/L Normal 3-39 [facility] Comment on above: Performed By: #### A ST #### [facility] [address] [place] [address] BILATERAL ANKLE MIN 3 VIEWSo n 12-03-2019 [...] above: Performed By: #### B MP #### [facility] [address] [place] [address] Calcium [Mass/Vol] 9.0 mg/dL Normal 8.2-10.0 [facility] Comment on above: Performed By: #### B MP #### [facility] [facility] [address] [place] [address] Chloride [Moles/Vol] 107 mmol/L Normal 94-110 [facility] Comment on above: Performed By: #### B MP #### [facility] [address] [place] [address] CO2 [Moles/Vol] 27 mmol/L Normal 21-34 [facility] Comment on above: Performed By: #### B MP #### [facility] [address] [place] [address] Creatinine [Mass/Vol] 0.93 mg/dL Normal 0.50-1.17 [facility] Comment on above: Performed By: #### B MP #### [facility] [address] [place] [address] GFR/1.73 sq M predicted among blacks MDRD (S/P/Bld) [Vol rate/Area] mL/min/{1.73_m2} Normal >60 [facility] Comment on above: Result Comment: [employer] eliana Kidney Disease less than 60 mL/min/1.73 m2 Kidney Failure less than 15 mL/min/1.73 m2 Average estimated GFR by age: 40-49 years 99 mL/min/1.73 m2 Performed By: #### B MP #### [facility] [address] [place] [address] GFR/1.73 sq M predicted among non-blacks MDRD (S/P/Bld) [Vol rate/Area] mL/min/{1.73_m2} Normal >60 [facility] Comment on above: Performed By: #### B MP #### [facility] [address] [place] [address] Glucose [Mass/Vol] 95 mg/dL Normal 65-100 [facility] Comment on above: Performed By: #### B MP #### [facility] [address] [place] [address] Potassium [Moles/Vol] 4.1 mmol/L Normal 3.3-5.1 [facility] Comment on above: Performed By: #### B MP #### [facility] [address] [place] [address] Sodium [Moles/Vol] 142 mmol/L Normal 132-145 [facility] Comment on above: Performed By: #### B MP #### [facility] [address] [place] [address] Urea nitrogen [Mass/Vol] 16.6 mg/dL Normal 3.2-26.9 [facility] Comment on above: Performed By: #### B MP #### [facility] [address] [place] [address] Urea nitrogen/Creatinine [Mass ratio] 18 mg/mg Normal 6-20 [facility] Comment on above: Performed By: #### B MP #### [facility] [address] [place] [address] CBC w/Auto Differentialon Anemia CAM SPECIALIST Normal [facility] Comment on above: Performed By: #### C BC #### [facility] [address] [place] [address] Anisocytosis Ql (Bld) CAM SPECIALIST Normal [facility] Comment on above: Performed By: #### C BC #### [facility] [address] [place] [address] Basophils Abs. # 0.0 K/uL Normal 0.0-0.1 [facility] Comment on above: Performed By: #### C BC #### [facility] [address] [place] [address] Basophils/100 WBC (Bld) 0.3 % Normal 0.2-1.0 [facility] Comment on above: Performed By: #### C BC #### [facility] [address] [place] [address] Basophils/100 WBC (Bld) CAM SPECIALIST Normal [facility] Comment on above: Performed By: #### C BC #### [facility] [place] [address] [place] [address] Bosophillia # CAM SPECIALIST Normal [facility] Comment on above: Performed By: #### C BC #### [facility] [place] [address] [place] [address] Eosinophils (Bld) [#/Vol] CAM SPECIALIST Normal [facility] Comment on above: Performed By: #### C BC #### [facility] [place] [address] [place] [address] Eosinophils (Bld) [#/Vol] 0.0 10*3/uL Normal 0.0-0.2 [facility] Comment on above: Performed By: #### C BC #### [facility] [place] [address] [place] [address] Eosinophils/100 WBC (Bld) CAM SPECIALIST Normal [facility] Comment on above: Performed By: #### C BC #### [facility] [address] [place] [address] Eosinophils/100 WBC (Bld) 0.2 % Low 0.9-2.9 [facility] Comment on above: Performed By: #### C BC #### [facility] [place] [address] [place] [address] Erythocytosis CAM SPECIALIST Normal [facility] Comment on above: Performed By: #### C BC #### [facility] [place] [address] [place] [address] Erythrocyte distribution width (RBC) [Ratio] 13.4 % Normal 11.5-14.5 [facility] Comment on above: Performed By: #### C BC #### [facility] [place] [address] [place] [address] Hematocrit (Bld) [Volume fraction] 45.8 % Normal 36.7-50.6 [facility] Comment on above: Performed By: #### C BC #### [facility] [place] [address] [place] [address] Hemoglobin (Bld) [Mass/Vol] 15.6 g/dL Normal 12.4-17.3 [facility] Comment on above: Performed By: #### C BC #### [facility] [place] [address] [place] [address] Hypochromia CAM SPECIALIST Normal [facility] Comment on above: Performed By: #### C BC #### [facility] [place] [address] [place] [address] Large Platelets CAM SPECIALIST Normal [facility] Comment on above: Performed By: #### C BC #### [facility] [place] [address] [place] [address] Leukocytosis CAM SPECIALIST Normal [facility] Comment on above: Performed By: #### C BC #### [facility] [place] [address] [place] [address] Leukopenia CAM SPECIALIST Normal [facility] Comment on above: Performed By: #### C BC #### [facility] [place] [address] [place] [address] Lymphocytes (Bld) [#/Vol] CAM SPECIALIST Normal [facility] Comment on above: Performed By: #### C BC #### [facility] [place] [address] [place] [address] Lymphocytes (Bld) [#/Vol] 1.7 10*3/uL Normal 1.3-2.9 [facility] Comment on above: Performed By: #### C BC #### [facility] [place] [address] [place] [address] Lymphocytes/100 WBC (Bld) 33.3 % Normal 17.0-45.5 [facility] Comment on above: Performed By: #### C BC #### [facility] [place] [address] [place] [address] Lymphocytes/100 WBC (Bld) CAM SPECIALIST Normal [facility] Comment on above: Performed By: #### C BC #### [facility] [place] [address] [place] [address] Lymphocytosis # CAM SPECIALIST Normal [facility] Comment on above: Performed By: #### C BC #### [facility] [place] [address] [place] [address] Lymphocytosis % CAM SPECIALIST Normal [facility] Comment on above: Performed By: #### C BC #### [facility] [place] [address] [place] [address] Macrocytosis CAM SPECIALIST Normal [facility] Comment on above: Performed By: #### C BC #### [facility] [place] [address] [place] [address] MCH (RBC) [Entitic mass] 29.4 pg Normal 27.0-31.0 [facility] Comment on above: Performed By: #### C BC #### [facility] [place] [address] [place] [address] MCHC (RBC) [Mass/Vol] 34.0 g/dL Normal 33.0-37.0 [facility] Comment on above: Performed By: #### C BC #### [facility] [place] [address] [place] [address] MCV (RBC) [Entitic vol] 86.2 fL Normal 80.0-94.0 [facility] Comment on above: Performed By: #### C BC #### [facility] [place] [address] [place] [address] Microcytosis CAM SPECIALIST Normal [facility] Comment on above: Performed By: #### C BC #### [facility] [place] [address] [place] [address] Monocytes (Bld) [#/Vol] 0.4 10*3/uL Normal 0.3-0.8 [facility] Comment on above: Performed By: #### C BC #### [facility] [place] [address] [place] [address] Monocytes/100 WBC (Bld) 7.6 % Normal 5.5-11.7 [facility] Comment on above: Performed By: #### C BC #### [facility] [place] [address] [place] [address] Monocytosis % CAM SPECIALIST Normal [facility] Comment on above: Performed By: #### C BC #### [facility] [place] [address] [place] [address] Neutropenia # CAM SPECIALIST Normal [facility] Comment on above: Performed By: #### C BC #### [facility] [place] [address] [place] [address] Neutropenia % CAM SPECIALIST Normal [facility] Comment on above: Performed By: #### C BC #### [facility] [place] [address] [place] [address] Neutrophils (Bld) [#/Vol] CAM SPECIALIST Normal [facility] Comment on above: Performed By: #### C BC #### [facility] [place] [address] [place] [address] Neutrophils Abs. # 2.9 K/uL Normal 2.2-4.8 [facility] Comment on above: Performed By: #### C BC #### [facility] [place] [address] [place] [address] Neutrophils/100 WBC (Bld) 58.6 % Normal 43.0-65.0 [facility] Comment on above: Performed By: #### C BC #### [facility] [place] [address] [place] [address] Neutrophils/100 WBC (Bld) CAM SPECIALIST Normal [facility] Comment on above: Performed By: #### C BC #### [facility] [place] [address] [place] [address] Nucleated RBC (Bld) [#/Vol] 0.0 10*3/uL Normal [facility] Comment on above: Performed By: #### C BC #### [facility] [place] [address] [place] [address] Nucleated RBC/100 WBC (Bld) [Ratio] 0.0 % Normal [facility] Comment on above: Performed By: #### C BC #### [facility] [place] [address] [place] [address] Pancytopenia CAM SPECIALIST Normal [facility] Comment on above: Performed By: #### C BC #### [facility] [place] [address] [place] [address] Platelet mean volume (Bld) [Entitic vol] 10.9 fL High 7.4-10.4 [facility] Comment on above: Performed By: #### C BC #### [facility] [place] [address] [place] [address] Platelets (Bld) [#/Vol] 105 10*3/uL Low 148-402 [facility] Comment on above: Performed By: #### C BC #### [facility] [place] [address] [place] [address] Poikilocytosis CAM SPECIALIST Normal [facility] Comment on above: Performed By: #### C BC #### [facility] [place] [address] [facility] [place] [address] RBC (Bld) [#/Vol] 5.31 10*6/uL Normal 4.13-5.69 [facility] Comment on above: Performed By: #### C BC #### [facility] [place] [address] [place] [address] Small Platelets CAM SPECIALIST Normal [facility] Comment on above: Performed By: #### C BC #### [facility] [place] [address] [facility] [place] [address] Thrombocytopenia CAM SPECIALIST Normal [facility] Comment on above: Performed By: #### C BC #### [facility] [place] [address] [facility] [place] [address] Thrombocytopenia. CAM SPECIALIST Normal [facility] Comment on above: Performed By: #### C BC #### [facility] [place] [address] [place] [address] Thrombocytosis CAM SPECIALIST Normal [facility] Comment on above: Performed By: #### C BC #### [facility] [place] [address] [address] WBC (Bld) [#/Vol] 5.0 10*3/uL Normal 3.6-10.8 [facility] Comment on above: Performed By: #### C BC #### [facility] [place] [address] [facility] [place] [address] RA Latex Turbid.on 0 RA Latex Turbid. <10.0 Normal 0.0-13.9 [facility] Comment on above: Result Comment: Perf ormed at: - [facility] [address] [id number] Chargeback Analyst: Romulo Peng PhD, Phone: [phone] Performed By: #### R FWT #### [facility] [address] [place], [place] [address] Sedimentation Rateon 020 Sedimentation Rate 4 mm/hr Normal 0-10 [facility] Comment on above: Performed By: #### E SR #### [facility] [address] [place], [place] [id number] Uric Acidon 12-03-2019 Urate [Mass/Vol] 6.1 mg/dL Normal 3.4-8.6 [facility] Comment on above: Performed By: #### C BC #### [facility] [address] [place], [place] [address] HISTORY PHYSICALon 0 HISTORY PHYSICAL HNO ID: [id number] Author: Viviane Hughes Service: ? Author Type: Physician Airport Operations Specialist Type: HANDP Filed: 06/19/2019 9:19 AM Note [...] mouth once daily. famotidine/Ca carb/mag hydrox (ACID DEPUTY DIRECTOR OF FINANCE COMPLETE, FAMOT, ORAL) Take 1 tablet by mouth twice daily. B Complex Vitamins capsule Take 1 capsule by mouth once daily. mf-mrz-ycimm acid-lutein (CENTRUM SILVER) 400-250 mcg chew Take [...] June 19, 2019 TIME: 9:18 AM PAGER: [phone] [facility] 06-19-2019 PT ED HNO ID: [id number] Author: Daniela Mann) FRANCIA Ramos Service: Nursing [...] By: Daniela Ramos RN In Department: PROCEDURES [facility] ED HNO ID: [id number] Author: Daphne Newton (Rn) FRANCIA Byers Service: [...] By: Daphne Byers RN In Department: PROCEDURES [facility] HOSPon 06-12-2019 HOSP Patient:Jack Nielsen MRN: Height:5' 10.984 (1.803 m) Weight:353 lb 2.8 oz (160.2 kg) Outpatient Medications as of 06/19/19: doxepin capsule 50 mg levomilnacipran ER (FETZIMA) 40 mg famotidine/Ca carb/mag hydrox (ACID DEPUTY DIRECTOR OF FINANCE COMPLETE, FAMOT, ORAL) B Complex Vitamins capsule zi-jfy-mptbe acid-lutein (CENTRUM SILVER) 400-250 mcg chew triamterene [...] once daily. - famotidine/Ca carb/mag hydrox (ACID DEPUTY DIRECTOR OF FINANCE COMPLETE, FAMOT, ORAL) Take 1 tablet by mouth twice daily. - B Complex Vitamins capsule Take 1 capsule by mouth once daily. - nf-sxx-ebgms acid-lutein (CENTRUM SILVER) 400-250 mcg chew Take [...] fevers. Neuro: No history of TIA's, stroke, ARC CUTTER tumor, impaired sensorium, hemiplegia, paraplegia or quadriplegia. [...] Augusto Evans MD 06/08/2019 2:22 PM Signed [facility] Patient instructions for day of surgery [...] once daily. - famotidine/Ca carb/mag hydrox (ACID DEPUTY DIRECTOR OF FINANCE COMPLETE, FAMOT, ORAL) Take 1 tablet by [...] your physician) as soon as possilbe to [phone], ATTN: Augusto Evans MD If you have any questions or concerns regarding today's visit please do not hesitate to contact the [facility] center at [phone] or [phone], ext [phone]. Progress Notes ([facility]): Umer Winston DO, DO 06/08/2019 [...] 3:07 PM PAGER/CONTACT #: Previous Version Normal [facility] GFRon 08-03-2018 GFR/1.73 sq M.predicted MDRD (S/P/Bld) [Vol rate/Area] mL/min/{1.73_m2} Normal [facility] Comment on above: Result Comment: To e [...] <15 Performed By: #### G FR1 #### [place] [address] METABOLIC PANELon 08-03-2018 ALK PHOS 83 U/L Normal 24-126 [facility] Comment on above: Performed By: #### 4 [id number] #### [place] [address] ALT [Catalytic activity/Vol] 61 U/L High 4-50 [facility] Comment on above: Performed By: #### 4 [id number] #### [facility] [employer] [place] [id number] AST [Catalytic activity/Vol] 33 U/L Normal 3-55 [facility] Comment on above: Performed By: #### [id number] #### [place] [address] Calcium [Mass/Vol] 9.6 mg/dL Normal 8.4-10.4 [facility] [employer] [facility] Comment on above: Performed By: #### 4 [id number] #### [place] [address] Glucose [Mass/Vol] 88 mg/dL Normal 65-100 [facility] [employer] [facility] Comment on above: Performed By: #### 4 [id number] #### [facility] [place] [address] Urea nitrogen [Mass/Vol] 23 mg/dL Normal 8-26 [facility] Comment on above: Performed By: #### 4 [id number] #### [facility] [place] [address] Bilirubin Ql (U) 0.4 mg/dL Normal 0.2-1.6 [facility] Comment on above: Performed By: #### 4 [id number] #### [facility] [place] [address] CO2 [Moles/Vol] 26 mmol/L Normal 22-30 [facility] [employer] [facility] Comment on above: Performed By: #### 4 [id number] #### [facility] [employer] [address] [address] Creatinine [Mass/Vol] 0.90 mg/dL Normal 0.66-1.25 [facility] Comment on above: Performed By: #### 4 [id number] #### [place] [address] Protein [Mass/Vol] 6.9 g/dL Normal 6.3-8.2 [facility] Comment on above: Performed By: #### 4 [id number] #### [place] [address] Potassium [Moles/Vol] 4.3 mmol/L Normal 3.6-5.1 [facility] Comment on above: Performed By: #### 4 [id number] #### [place] [address] Sodium [Moles/Vol] 141 mmol/L Normal 135-147 [facility] Comment on above: Performed By: #### 4 [id number] #### [place] [address] Albumin [Mass/Vol] 4.3 g/dL Normal 3.5-5.0 [facility] Comment on above: Performed By: #### 4 [id number] #### [place] [address] Chloride [Moles/Vol] 106 mmol/L Normal 96-109 [facility] Comment on above: Performed By: #### 4 [id number] #### [place] [address] Vital Signs Date Time Vital Sign Value Performing Clinician Baron iverson 01-20-2023 08:21-0400 Body height 180.3 cm Sam Crow MD Work Phone: [facility] 01-20-2023 08:21-0400 Body temperature 97.2 [degF] Sam Crow MD Work Phone: [facility] 01-20-2023 08:21-0400 Body weight 170.1 kg Sam Crow MD Work Phone: [facility] 01-20-2023 08:21-0400 Diastolic blood pressure 63 mm[Hg] Sam Crow MD Work Phone: [facility] 01-20-2023 08:21-0400 Heart rate 62 /min Sam Crow MD Work Phone: [facility] 01-20-2023 08:21-0400 Systolic blood pressure 148 mm[Hg] Sam Crow MD Work Phone: [facility] Encounters Encounter Date Encounter Type Care Provider Facility Start: 02-08-2024 ambulatory Rashid Ruffin acility:[facility] Start: 09-14-2023 End: 09-14-2023 ambulatory PA Cassidy Hummel Facility:[facility] Start: 08-18-2023 End: 08-19-2023 ambulatory Jhonny Hernandez Facility:[facility] Start: 07-14-2023 End: 07-15-2023 ambulatory PA Cassidy Hummel Facility:[facility] Start: 07-07-2023 End: 07-08-2023 ambulatory PA Cassidy Hummel Facility:[facility] Start: 07-06-2023 End: 07-07-2023 ambulatory PA Cassidy Humeml Facility:[facility] Start: 06-28-2023 End: 06-29-2023 ambulatory PA Cassidy Hummel Facility:[facility] Start: 06-16-2023 End: 06-16-2023 ambulatory Reno MCCLURE Facility:[facility] Start: 04-14-2023 Telephone encounter Fadi Guevara [facility] Start: 01-22-2023 ambulatory Minal Puga RN [facility] Start: 01-22-2023 E-mail encounter fro m caregiver Minal Puga RN [facility] Start: 01-21-2023 Telephone encounter Minal Guevara [facility] Comment on above: Loading And Unloading Supervisor - Shawna greco (Enroll in BMI program) Start: 01-20-2023 End: 01-21-2023 ambulatory SAM CROW Facility:[facility] Start: 01-20-2023 End: 01-20-2023 Patient encounter procedure Sam Crow MD Work Phone: General Surgery Comment on above: Incisional hernia, w ithout obstruction or gangrene (Primary Dx) Start: 01-19-2023 End: 01-20-2023 ambulatory Unlisted Provider Facility:[facility] Start: 01-15-2023 End: 01-15-2023 Emergency department patient visit Kareem Sanchez Facility:[facility] Start: 01-04-2023 Orders Only Marika [...] - S christiano or Plasma Lipid Screening [facility] Start: 02-23-2024 LIPID SCREEN LIPID SCREEN [facility] Start: 09-14-2023 Urine microalbumin profile [facility] Start: 02-04-2023 Influenza vaccination [facility] Start: 02-23-2020 ANNUAL PCP TEAM JOURNEYMAN LINEMAN ELIANA DISEASE VISIT ANNUAL PCP TEAM CHRONIC DISEASE VISIT [facility] Start: 1996 BP CONTROLLED (<130/80) BP CON TROLLED (<130/80) [facility] Start: 1996 HEPATITIS C SCREENING HEPATITIS C SC REENING [facility] Start: 1996 HIV SCREENING HIV SCREENING [facility] Start: 1978 COVID-19 VACCINE (#1) COVID-19 VACCI NE (#1) [facility] Start: 1978 HEPATITIS B (1 of 3 - 3-dose series) HEPATITIS B (1 of 3 - 3-dose series) [facility] Start: 1978 Hepatitis B Vaccine (1 of 3 - 3-dose series) Hepatitis B Vaccine (1 of 3 - 3-dose series) [facility] End: 02-03-2024 Ct abdomen & pelvis w/o contrast material CT ABD/PEL WO IVCON Radiology Routine Incisional hernia, without obstruction or gangrene 1 Occurrences starting 01/04/2023 until 02/03/2024 [facility] Work Phone: Comment on above: 1 Occurrences starti ng 01/04/2023 until 02/03/2024 [facility] Immunizations Immunization Date Immunization Notes Care Provider Mike dave 03-06-2015 influenza, seasonal, injectable Marika Tavares APRN.CNP Work Phone: [facility] Work Phone: 03-06-2015 influenza virus vaccine, unspecified formulation Fadi Roberson RN [facility] 09-13-2013 tetanus toxoid, redu dana diphtheria toxoid, and acellular pertussis vaccine, adsorbed Marika Chaitanya BOILER HOUSE INSPECTOR.SHIP'S SURVEYOR Work Phone: [facility] Work Phone: Payers Date Payer Category Payer Self-pay 2022 Medicaid [id number] 2022 Medicaid [id number] 1980 Unknown [id number] 2.16.8 40.1.307173.3.579.2. 1978 Unknown [id number] 2.16.8 40.1.564925.3.579.2 1978 Unknown [id number] 2.16.8 40.1.019039.3.579.2. 1978 Unknown [id number] 2.16.8 40.1.302400.3.579.2. 1978 Unknown [id number] 2.16.8 40.1.902362.3.579.2. 1978 Unknown [id number] 2.16.8 40.1.993135.3.579.2. 1978 Unknown [id number] 2.16.8 40.1.979162.3.579.2. 1978 Unknown [id number] 2.16.8 40.1.088244.3.579.2. 1978 Unknown [id number] 2.16.8 40.1.797488.3.579.2. 1978 Unknown [id number] 2.16.8 40.1.039192.3.579.2 1978 Unknown [id number] 2.16.8 40.1.782327.3.579.2.718 1978 Unknown [id number] 2.16.8 40.1.042367.3.579.2.718 1978 Unknown [id number] 2.16.8 [id number] Unknown [id number] 2.16.8 [id number] Social History Date Type Detail Facility Start: 06-08-2019 End: 01-20-2023 Tobacco smoking status NHIS Ex-smoker [facility] End: 06-06-1982 History of tobacco use Current smoker [facility] End: 06-06-1982 History of tobacco use Cigarette Smoker [facility] Start: 06-08-2019 End: 01-20-2023 Cigarettes smoked current (pack per day) - Reported 0.1 [facility] Work Phone: Start: 06-08-2019 End: 01-20-2023 Tobacco use and exposure Smokeless tobacco non-user [facility] Start: 03-19-2021 End: 01-20-2023 Alcohol intake Lifetime non-drinker (finding) [facility] Start: 1980 Sex Assigned At Not on file [facility] Start: 06-19-2019 End: 01-20-2023 Gender identity Not on file [facility] Work Phone: How often to you hav e a drink containing alcohol? Never [facility] Work Phone: Average Number of Drinks Not on file [facility] Clinical Notes 01-15-2023 to 09-14-2023 [...] doctor may want you to: ? Take zvrz-eyu-ufchqqx medicines. ? Drink plenty of fluids. The [...] Applesauce. ? Rice. ? Lean meats. ? [place]. ? Crackers. ? Do not eat or drink: ? Fluids that have a lot of sugar or caffeine. ? Alcohol. ? Spicy or fatty foods. General instructions ? Take yucm-ckg-dageqgp and prescription medicines only as told by [...] use soap and water, use alcohol-based hand lay out drafter. ? Keep all follow-up visits. How is [...] the hospital. Summary (more content not included)... [facility] 06-16-2023 Note Patient Education Ma terials Follows: [...] at home: Medicines ? Take or apply rvsn-qtg-fdiemsv and prescription medicines only as told by [...] provider. Document Revised: 08/21/2020 Document Reviewed: 08/21/2020 [employer] Patient Education ? 2022 [employer]. [facility] 04-14-2023 Miscellaneous Notes Formattin g of this note might be different from the original. [facility] COORDINATION TELEPHONE ENCOUNTER Pt mother is helping him. LVM with call back number documented in this encounter [facility] 01-22-2023 Miscellaneous Notes Formattin g of this note might be different from the original. Unable to send [employer] message- account not active documented in this encounter [facility] 01-22-2023 Miscellaneous Notes Formattin g of this note might be different from the original. [facility] COORDINATION TELEPHONE ENCOUNTER 01/21/18: called and left message for pt to call office. Provided this RNs contact number. documented in this encounter [facility] 01-20-2023 Note HNO ID: [id number] Author: Sam Crow MD Service: ? Author [...] plan as documented in the resident?s note. [facility] 01-20-2023 Note HNO ID: [id number] Author: Zahraa Stovall Service: ? Author Type: ? Type: Progress Notes Filed: 01/20/2023 9:13 AM Note Text: [facility] Abdominal Core Health - HISTORY AND [...] mouth once daily. famotidine/Ca carb/mag hydrox (ACID DEPUTY DIRECTOR OF FINANCE COMPLETE, FAMOT, ORAL) Take 1 tablet by mouth twice daily. B Complex Vitamins capsule Take 1 capsule by mouth once daily. pq-yto-sqzdo acid-lutein (CENTRUM SILVER) 400-250 mcg chew Take [...] and discussed with Dr. Mignon Stovall, MS4 [facility] 01-20-2023 History of Presen t illness Narrative [...] as documented in the resident s note. [facility] Abdominal Core Health - HISTORY AND [...] mouth once daily. famotidine/Ca carb/mag hydrox (ACID DEPUTY DIRECTOR OF FINANCE COMPLETE, FAMOT, ORAL) Take 1 tablet by mouth twice daily. B Complex Vitamins capsule Take 1 capsule by mouth once daily. rp-yyw-nejdf acid-lutein (CENTRUM SILVER) 400-250 mcg chew Take [...] Mignon Stovall, MS4 documented in this encounter [facility] 01-20-2023 Nurse Note What is the reason for your visit today? consult Who is your referring physician? Dr. Crow Are you having poor oral intake? NO Have you had unintentional weight loss of 15 lbs/7 Kg in the last 3-6 months? NO Bowels: diarrhea Wound: clean & dry Temperature: No Drains: No documented in this encounter [facility] 01-15-2023 Note Education Materials Infectious [...] these instructions at home: Medicines ? Take hxgf-vih-bzrzjfp and prescription medicines only as told by [...] provider. Document Revised: 03/04/2022 Document Reviewed: 03/04/2022 [employer] Patient Education ? 2022 [employer] Procedures How to Take Your Blood [...] chair. ? Be (more content not included)... [facility] Evaluation note Diagnosis Incisional hernia, without obstruction or gangrene- Primary Incisional hernia without mention of obstruction or gangrene [facility] Incisional hernia, without obstruction or gangrene- Primary Incisional hernia without mention of obstruction or gangrene documented in this encounter [facility] Summary Purpose Family History No Family History Records FoundNo Family History Records FoundNo Family History Records FoundNo Family History Records FoundNo Family History Records FoundNo Family History Records Found Advance Directives No Advanced Directives Records FoundDocuments on File Type Date Recorded Patient [employer] 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 Advance Directive(s) 06/08/2019 4:15 PM Documents on File Type Date Recorded Patient [employer] 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 Advance Directive(s) 06/08/2019 4:15 PM Reason for Referral Specialty Diagnoses / Procedures Referred By Elías t Referred To Contact CT IMAGING Diagnoses Incisional hernia, without obstruction or gangrene Procedures CT ABD/PEL WO IVCON CT ABD & PELVIS W/O CONTRAST Marika Tavares, BOILER HOUSE INSPECTOR.SH[employer]'S SURVEYOR [address] [place] [id number] Imaging Referral ID Status Reason Start Date Expiration Date Visits Requested Visits Authorized [id number] Pending Review Auto-Generat ed Referral 01/04/2023 02/03/2024 1 1 Specialty Diagnoses / Procedures Referred By Contac t Referred To Contact Diagnoses Incisional hernia, without obstruction or gangrene Procedures CONSULT [facility] OFFICE/OUTPATIENT [facility] 60-74 MINUTES Sam Crow MD [address] [place] [address] Referral ID Status Reason Start Date Expiration Date Visits Requested Visits Authorized [id number] Authorized PCP Requested Referral 01/20/2023 01/20/2024 1 1 Additional Source Comments (unrecognized sect ion and content) No Status Records FoundNo Status Records FoundNo Status Records FoundNo Status Records FoundNo Status Records FoundNo Status Records Found INFORMATION SOURCE (unrecogn ized section and content) DATE CREATED AUTHOR 04/26/2019 [facility] DATE CREATED AUTHOR AUTHOR'S ORGANIZ ATION 06/19/2019 [facility] DATE CREATED AUTHOR AUTHOR'S ORGANIZ ATION 08/02/2020 [facility] DATE CREATED AUTHOR AUTHOR'S ORGANIZ ATION 04/16/2023 [facility] DATE CREATED AUTHOR AUTHOR'S ORGANIZ ATION 10/13/2023 [facility] DATE CREATED AUTHOR AUTHOR'S ORGANIZ ATION 02/09/2024 [facility] Source Comments (unrecognize d section and content) In the event this informatio n is protected by the Federal Confidentiality of Alcohol and Drug Abuse Patient Records regulations: The Federal rules restrict any use of the information to criminally investigate or prosecute any alcohol or drug abuse patient.[facility] the event this information is protected by the Federal Confidentiality of Alcohol and Drug Abuse Patient Records regulations: The Federal rules restrict any use of the information to criminally investigate or prosecute any alcohol or drug abuse patient.[facility] the event this information is protected by the Federal Confidentiality of Alcohol and Drug Abuse Patient Records regulations: The Federal rules restrict any use of the information to criminally investigate or prosecute any alcohol or drug abuse patient.[facility] the event this information is protected by the Federal Confidentiality of Alcohol and Drug Abuse Patient Records regulations: The Federal rules restrict any use of the information to criminally investigate or prosecute any alcohol or drug abuse patient.[facility] the event this information is protected by the Federal Confidentiality of Alcohol and Drug Abuse Patient Records regulations: The Federal rules restrict any use of the information to criminally investigate or prosecute any alcohol or drug abuse patient.[facility] Care Teams (unrecognized sec tion and content) Hay Farmer Relationship Specialty Start Date End Date Antoine Alcazar [id number] [address] Referring General Surgery 02/07/19 Hay Farmer Relationship Specialty Start Date End Date Antoine Alcazar [facility]rell [address] [facility] [place] [address] Referring General Surgery 02/07/19 Hay Farmer Relationship Specialty Start Date End Date Antoine Alcazar Darrell [address] [address] [place] [address] Referring General Surgery 02/07/19 Hay Farmer Relationship Specialty Start Date End Date Inge Antoine Darrell [address] [facility] [place] [address] Referring General Surgery 02/07/19 Reason for Visit (unrecogniz ed section and content) Reason Comments Consult Reason Comments Loading And Unloading Supervisor - Other [facility] FOR RECORDS PERTAINING TO PATIENTS WHO ARE [...] BE BASED ON THE PRIMARY CLINICAL RECORDS. [employer] [facility]. provides no warranty or guarantee of the accuracy or completeness of information in this document.
== END 2024-02-24 10:49 | disposition home or self-care (01) ==
LOC: VC 09:41
PROVIDERS: PCP Radiology Diagnostic Radiology; Visit Provider Radiology Diagnostic Radiology
DX: I80.02 Phlebitis and thrombophlebitis of superficial vessels of left lower extremity (principal)
CPT/HCPCS: 93971; G0463

== ENCOUNTER 2024-03-23 12:52 | Outpatient (OUT) | payer OTHER, SELFPAY ==
[2024-03-23 10:08] VITALS: BMI 52.9
--- NOTE | 2024-03-23 10:08 | V.VEINS.HP ---
Vital Signs 03/23/24 10:08 Height 5 ft 11 in Weight 172 kg BMI 52.9 Varicose Veins Patient in today for follow up ultrasound of bilateral lower extremity for pain in lower legs. Augusto Monsalve MD personally performed the services described in this documentation, as scribed by Lucia Gupta RDMS in my presence and it is both accurate and complete. Lucia Monsalve RDMS, am scribing for, and in the presence of, Dr. Augusto Mensah and in the presence of the patient. thigh: bilateral, knee: bilateral, calf: bilateral, ankle: bilateral and [place]: bilateral cramping, dull, sharp and tender 8 4 years Worsened in recent months: Yes standing analgesics (Tylenol), bed rest, elevating extremities and compression stockings Reports muscle spasms of leg, edema, leg edema and other (ulceration) History of lower extremity trauma: No Superficial thrombophlebitis: No Family history of varicose veins: unknown Has patient had previous lower extremity venous surgery: No Patient has previously received the following treatment(s) for lower extremity varicose veins: Reports none Does patient have a history of : not applicable Does patient intend to have future pregnancies: not applicable Has patient had lower extremity venous scan with relux testing: Yes Support hose used: Yes Problems walking or doing physical activity: Yes How does it affect you: Compromised work d/t having to take multiple breaks throughout the day. Do you walk much: Yes Do you stand much: Yes Review of Systems ROS Narrative Patient had episode of cellulitis in right leg 3 weeks ago. Augusto Monsalve MD personally performed the services described in this documentation, as scribed by Lucia Gupta RDMS in my presence and it is both accurate and complete. Lucia Monsalve RDMS, am scribing for, and in the presence of, Dr. Augusto Mensah and in the presence of the patient. Status of ROS 10 or more systems reviewed and unremarkable except as noted in history and below Cardiovascular Reports: edema, swelling of feet/ankles and leg pain with exertion Musculoskeletal Reports: extremity pain and extremity swelling Integumentary/Breast Reports: redness, new lesion, non-healing lesion and changes in skin color [facility] (Updated 03/23/24 @ 13:32 by Lucia Bollenbacher) Phlebitis and thrombophlebitis of superficial vessels of lower extremities, bilateral ?I80.03 - Phlebitis and thrombophlebitis of superficial vessels of lower extremities, bilateral (ICD-10) Phlebitis and thrombophlebitis of superficial vessels of left lower extremity ?I80.02 - Phlebitis and thrombophlebitis of superficial vessels of left lower extremity (ICD-10) Phlebitis and thrombophlebitis of superficial vessels of right lower extremity ?I80.01 - Phlebitis and thrombophlebitis of superficial vessels of right lower extremity (ICD-10) Pain due to varicose veins of both lower extremities ?I83.813 - Varicose veins of bilateral lower extremities with pain (ICD-10) Chronic venous hypertension ?I87.309 - Chronic venous hypertension (idiopathic) without complications of unspecified lower extremity (ICD-10) Venous 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 veins ?I83.019 - Varicose veins of right lower extremity with ulcer of unspecified site (ICD-10) ?I83.029 - Varicose veins of left lower extremity with ulcer of unspecified site (ICD-10) ?L97.919 - Non-pressure chronic ulcer of unspecified part of right lower leg with unspecified severity (ICD-10) ?L97.929 - Non-pressure chronic ulcer of unspecified part of left lower leg with unspecified severity (ICD-10) Surgical History (Updated 02/16/24 @ 14:22 by Alex Rankin) S/P sclerotherapy of varicose veins ?Z98.890 - Other specified postprocedural states (ICD-10) ?Z86.79 - Personal history of other diseases of the circulatory system (ICD-10) History of hernia repair ?Z98.890 - Other specified postprocedural states (ICD-10) ?Z87.19 - Personal history of other diseases of the digestive system (ICD-10) History of cholecystectomy ?Z90.49 - Acquired absence of other specified parts of digestive tract (ICD-10) Family History (Updated 12/14/23 @ 09:46 by Danya Holt) Other Family history not known due to adoption Social History (Updated 12/14/23 @ 09:47 by Danya Holt) Within the past year, how often did you have a drink containing alcohol: monthly or less Smoking status: Never smoker Non-prescribed substance use: denies use Meds Home Medications and Allergies Home Medications ?Medication ?Instructions ?Recorded ?Confirmed ?Type Fabuxostat 12/14/23 History buspirone 5 mg tablet 5 mg PO BID 12/14/23 12/14/23 History calcium phosphate,dibasic 77 tab PO 12/14/23 History mg-vitamin D3 400 unit tablet dulaglutide 0.75 mg/0.5 mL 0.75 mg subcut QWEEK 12/14/23 12/14/23 History subcutaneous pen injector (Trulicity) ferrous sulfate 325 mg (65 mg 325 mg PO DAILY 12/14/23 12/14/23 History iron) tablet (Feosol) losartan 100 mg tablet 100 mg PO DAILY 12/14/23 12/14/23 History melatonin 5 mg capsule mg 12/14/23 History omeprazole 20 mg capsule,delayed 20 mg PO DAILY 12/14/23 12/14/23 History release trazodone 50 mg tablet 25 mg PO DAILY 12/14/23 12/14/23 History Allergies Allergy/AdvReac Type Severity Reaction Status Date / Time bupropion (From Wellbutrin) Allergy Unknown Verified 11/04/23 14:41 Exam Narrative Exam Narrative: Patient has pain bilateral legs x few weeks with new small raised lesions bilateral lower legs. Previously had episode of cellulitis in right lower leg 3 weeks ago. Augusto Monsalve MD personally performed the services described in this documentation, as scribed by Lucia Gupta RDMS in my presence and it is both accurate and complete. Lucia Monsalve RDMS, am scribing for, and in the presence of, Dr. Augusto Mensah and in the presence of the patient. Constitutional Documenting provider has reviewed patient's vital signs: yes Common normals: oriented x3 Lymph Lymphatic: no lymphedema noted Cardio Common normals: regular rate Rate: regular rate Peripheral pulses: posterior tibial pulses present and dorsalis pedis pulses present Extremity Common normals: normal capillary refill General: calf tenderness and edema Right lower extremity: upper leg and lower leg Left lower extremity: upper leg and lower leg Extremity image (front):  1. raised lesions 2. raised lesions Neuro Common normals: oriented x3 Results Imaging Venous US: Radiologist's impression: No evidence of DVT bilateral. Thrombus visualized in previously treated varicose veins. Augusto Monsalve MD personally performed the services described in this documentation, as scribed by Lucia Gupta RDMS in my presence and it is both accurate and complete. Lucia Monsalve RDMS, am scribing for, and in the presence of, Dr. Augusto Mensah and in the presence of the patient. Assessment and Plan Assessment and Plan (1) Phlebitis and thrombophlebitis of superficial vessels of lower extremities, bilateral: Plan Plan is for patient to wear compression stockings and to follow up with family physician. Patient is finished with vein treatment at this time. Augusto Monsalve MD personally performed the services described in this documentation, as scribed by Lucia Gupta RDMS in my presence and it is both accurate and complete. Bello, Lucia Gupta RDMS, am scribing for, and in the presence of, Dr. Augusto Mensah and in the presence of the patient.
--- NOTE | 2024-03-23 12:56 | VEIN_ITS ---
Patient Name: DAVI MCCULLOUGH MR#: [id number] : 1980 Exam Date: 03/23/2024 Ordering Doctor: DR AUGUSTO MENSAH M.D. RADIOLOGY REPORT PROCEDURE: FACILITY EST [facility] - OFFICE VISIT FOLLOW UP COMPARISON: [facility] EST [facility], 02/24/2024. [facility] EST [facility], 01/26/2024. PROGRESS NOTES: The patient reports continued lower extremity swelling with an episode of right leg cellulitis requiring hospitalization and IV antibiotics. The patient's cellulitis has resolved. The patient reports that he is not wearing his compression stockings, elevating his legs or exercising as much as recommended. Physical exam demonstrates moderate bilateral below knee subcutaneous edema. Slight erythema of the right leg likely related to recent cellulitis. There are multiple skin blisters on the left leg likely related to the patient's edema. No active ulceration Review of the ultrasound performed the same day demonstrates bilateral occlusion of treated saphenous and varicose veins with no deep vein thrombus. No residual incompetent saphenous or varicose vein is observed I recommended that the patient purchase 20-30 mm knee high compression stockings to be worn from the time he gets up to the time he goes to bed. I also discussed other strategies including leg elevation above the level of the heart, elevating the foot of the bed at night spacers between the box spurring and mattress. I also discussed continuous exercise , walking 10-15 minutes 3-5 times per day. I also discussed weight loss. VEIN/[facility] EST LMTD IMPRESSION: 1. No deep vein thrombus 2. Post treatment subcutaneous edema and swelling not related to the patient's venous disease. This likely is multifactorial PLAN: Bilateral knee high compression stockings 20-30 mm Nurse notes, history and physical were reviewed and confirmed, see attached forms. The nurse was present throughout the physical exam and consultation Dictated by: Augusto Mensah MD on 03/23/2024 at 13:41 Approved by: Augusto Mensah MD on 03/23/2024 at 13:44
--- NOTE | 2024-03-23 12:56 | VEIN_ITS ---
Patient Name: DAVI MCCULLOUGH MR#: [id number] : 1980 Exam Date: 03/23/2024 Ordering Doctor: DR AUGUSTO MENSAH M.D. RADIOLOGY REPORT PROCEDURE: VC EXT VENOUS KANWAL LIMITED COMPARISON: None. INDICATIONS: I80.03 - Phlebitis and thrombophlebitis of superficial veins bilateral TECHNIQUE: Lower extremity ordaz scale and Duplex Doppler evaluation of the deep venous system from the inguinal ligament through the calf veins. FINDINGS: REGION: Right lower extremity. THROMBI: Acute and chronic appearing thrombi. Chemically induced thrombus in multiple varicose veins. No evidence of DVT. COMPRESSIBILITY: Non-compressible segments. FLOW: Areas on no flow. OTHER: Negative. REGION: Left lower extremity. THROMBI: Acute and chronic appearing thrombi. Chemically induced thrombus in multiple varicose veins. No evidence of DVT. COMPRESSIBILITY: Non-compressible segments. FLOW: Areas on no flow. OTHER: Negative. *Exam performed in accordance with [facility] practice guidelines- Peripheral venous ultrasound, August 30, 2009. CONCLUSION: No significant incompetent varicose or saphenous veins observed in the legs No deep vein thrombus Dictated by: Augusto Mensah MD on 03/23/2024 at 13:23 Approved by: Augusto Mensah MD on 03/23/2024 at 13:24
--- OUTSIDE RECORDS SUMMARY | 2024-03-23 12:58 | XMS_ITS | CCD ---
Author Organization [facility] Care Team Providers Care Bombsight Specialist Name Role Phone Antoine Alcazar Unavailable [phone] SAM CROW Attending Unavailable KAMI Hummel Attending Unavailable KAMI Hummel Admitting Unavailable [facility] FIRM ADMINISTRATOR NURSING EDUCATION SPECIALIST-C, Mary C Primary Care Unavai lable Kastor FIRM ADMINISTRATOR NURSING EDUCATION SPECIALIST-C, Mary C Primary Care Unavai lable John Lux Admitting Unavailable John Lux Attending Unavailable Jhonny Hernandez Admitting Unavailable Jhonny Hernandez Attending Unavailable Kastor FIRM ADMINISTRATOR NURSING EDUCATION SPECIALIST-C, Mary C Primary Care UnaKAMI Boswell Attending Unavailable KAMI Hummel Admitting Unavailable Kastor FIRM ADMINISTRATOR NURSING EDUCATION SPECIALIST-C, Mary C Primary Care Unavai lable Kastor FIRM ADMINISTRATOR NURSING EDUCATION SPECIALIST-C, Mary C Admitting Unavai lable Kastor FIRM ADMINISTRATOR NURSING EDUCATION SPECIALIST-C, Mary C Attending Unavai lable Kastor FIRM ADMINISTRATOR NURSING EDUCATION SPECIALIST-C, Mary C Primary Care Unavai lable Provider, None Primary Care Unavailable Reno Ogden Attending Unavaila Reno Carias Admitting Unavaila KAMI Charlton Admitting Unavailable KAMI Hummel Attending Unavailable Kastor FIRM ADMINISTRATOR NURSING EDUCATION SPECIALIST-C, Mary C Primary Care KAMI Moon Attending Unavailable KAMI Hummel Admitting Unavailable Kastor FIRM ADMINISTRATOR NURSING EDUCATION SPECIALIST-C, Mary C Primary Care KAMI Moon Attending Unavailable KAMI Hummel Admitting Unavailable Kastor FIRM ADMINISTRATOR NURSING EDUCATION SPECIALIST-C, Mary Steven Primary Care KAMI Moon Attending Unavailable KAMI Hummel Admitting Unavailable [facility] FIRM ADMINISTRATOR NURSING EDUCATION SPECIALIST-C, Mary Steven Primary Care KAMI Moon Attending Unavailable KAMI Hummel Admitting Unavailable [facility] FIRM ADMINISTRATOR NURSING EDUCATION SPECIALIST-C, Mary Steven Primary Care KAMI Moon Attending Unavailable KAMI Hummel Admitting Unavailable [facility], Mary Steven Primary Care Rashid Agosto Attending Unavailab Rashid Solomon Admitting Unavailab kiarra [facility] FAMILY, PHYSICIAN Primary Care Unavailable Allergies Allergy Classification Reported Allergen(s) Allergy Type Date of Onset Reaction(s) Facility (6 sources) buPROPion; Translations: [BUPROPION HCL] Drug Allergy 10-25-2016 [facility] (1 source) buPROPion; Translations: [Wellbutrin] Drug Allergy [facility] Repository (1 source) buPROPion Drug Allergy 02-01-2019 [facility] Repository Medications Completed/Discontinued Medications Medication Drug Class(es) Dates Sig (Normalized) Sig (Original) acetaminophen 325 mg oral tablet (5 sources) Start: 06-22-19 20 take 2 tablets by mouth every four hours as needed acetaminophen (TYLENOL) 325 mg tablet Take 2 tablets by mouth every 4 hours as needed (for pain.). 0 06/22/2019 Active Comment on above: Take 2 tablets by mo ut every 4 hours as needed (for pain.). [...] mL pen injector famotidine/Ca carb/mag hydrox (ACID PHYSICAL OPTICS TEACHER COMPLETE, FAMOT, ORAL) (5 sources) take 1 tablet by mouth twice daily famotidine/Ca carb/mag hydrox (ACID PHYSICAL OPTICS TEACHER COMPLETE, FAMOT, ORAL) Take 1 tablet by [...] on above: Take 10 mg by mouth. qr-grb-uuejf acid-lutein (CENTRUM SILVER) 400-250 mcg chew (5 sources) take 1 tablet by mouth once daily su-yvx-amakn acid-lutein (CENTRUM SILVER) 400-250 mcg chew Take [...] 1,000 mcg by mo [facility] once daily. Problems Active Problems Problem Classification [...] Test Name Value Interpretation Reference Range Facility C Bloodon 03-08-2024 C Blood No growth at 5 Days Normal [facility] Comment on above: Performed By: #### 2 [id number], [id number], [id number], [id number], [id number], [id number] #### [facility] (DEFAULT) [address] [place] [address] Performed By: #### 6 [id number] ####[facility] (DEFAULT)[address] [place] [address] Coding Summaryon 03-06-2024 Coding Summary HTMLBase 64 [id number] +[id number] NMTElOSywgQVBQTElOSyIgb tVlEP0eaXIkZVIt IC8+BX3iUHFhFlbzoYNgx8X 5pTI0M48sgg0cPSgzaXO8CN BpBpDccoxop7cljVd3VRjdP mluOyBt KISozJ79UOJ7eG06Ie00vGD juEQth8gwkXb5WyDjXEZjRN O1mYrdLRglo5RzRCVbF26ji GYya9F5 SNSfuZdtyFPcEqRcaVL5bP7 iMLbpzhsjq6zkcrrjEcq5ft 91tGLuh6B7oKJ3W2LtmaN5Q GJvbGQg NoxjmMMFdR5aqkvyl1pxsqj kVqIrATCyFKa5TTh1PLBinS bbHxCtSP19HQE1SOWcnwNtS 2FsLWFs uSnaJxK3q0R7Qp2SJ3DLHpp pO3XDFOLCPUchkWF+PC90cj 97V0VcEsnlXdj0CQUaDXV2h EQ4nK4c DVQaSYgdi6J6iWX1O4SvpmZ pdl2pm3mzKMYkDQcwH97wgA Pmj4C9EXChkFY4YSKdaFixV iBzaG93 Oyc+ORVekRamk2QwAjakv6l xd3verTy4DowqUUYvcaUjlN tyDZT9t6LqZr0jLCHojKN2v QO8xG6j QfPfPbG6BYerW138HqSrcOQ xPvtzW83eP8OalNU+PHRyPj y2DDAfbXjbVE2aF0SqNHTdk mctbGVm xDhcCU5pBWOyoqxpMSPbjO1 uLFItX9m7MvPbXvR5CWqhX5 JmQIXuwzfzJn07rC8zLlLoN xS9LYfp F1TzzgC4PEBtbQEeEPivJMV 4V95we2D8XIRjUWJpIWB3tX O0xM5akLokgzbyrGVguRbxo mVydGlj NTzcVLuxF559LXXbdEjcNsP vZGluZyBEYXRlOiAgMTAvMD EvMjAyNDwvdGQ+MXIwMPY0o WxlPSAn cWBjUTotMl8qkYltuFroVC8 iJLDyokmoXLKnuP2gWGFphJ QddZrfZO5bXAQhuinlw312M iAxMHB0 QOLmzUGnX5GjjP2nFfMpTRE gPCPcD2BzrQCsLGofI787GY yiKyT2TSIdgzDbW1KjKRQgj WduOiB0 y0P9Fa5Jt9XkwwvdL4CqcQT tZxAgSzzoQWu1F6VkFbywqP I+GZ10YDKvWE36CVj9QQH1f WxlPSdi DJUiN9HbnX6zVlYeZEXgAXG kOyc+PHRhYmxlIHdpZHRoPS wgYKKlZuAhbHujEQ5qNo3lK GVyLWNv pQouzVRpBmEzf5wxRIVgHNg sHP1ftBxyB9YoxBI9ADJvm6 n4Hx24J65vV7PcqFN+PGNvb UI9kXK8 tS9uEnSeFjA7SIiaZ950SlH mdQFxFlffv8dfp8mblUd4Hr E4NLNkafYasAmbJIJ6n3WsA u82A49w IHdpZHRoPSIxNSUiIHZhbGl odd2gjA3cDs2+OFDftXI5dX M5dH7aDqTyDdO6FFweB831L nRvcCIv Zliij8kze8jnoBo5GpOhYJL uduOfyGikSUC9y5XeDt00Y0 HuvIawe6ZeLde5rg96dCBxz 3X4iDH5 R7EfFTVnpgeeuNWomUdpCO3 jLQPznuayLKOfkO2mASQvQ6 m6FkEsNxN4DGsqW5BpxrB3U GJvbGQg WYUxzYEPfX8ssjjla1xqtxa rHxXhSTNdDZa7BSo9SOLbcZ rgJsDvXCT0GnS5SZI6oEHbs I5saIdw pjvarS2qKjx+EEQ8nMUamNP EPS7xUvfqfKD+IWZaEPQ2bW hsNZiwFHRrnX8lPJJrC9q9Q iAwLjA1 EVtwE7AlekV1MSPrhVMuBKU ueHXKcM1fzignj3shgezcPt CpAQTgZZn8RLl3RRUzsUplG iBsZWZ0 FaR2PNP1lZCfdJ9zsRgdfon muK4rCwr+YzgsyHoyXYS2AG h6C8QaHdn4QXZpzGniHK5ng GFkZGlu Nv3huIqbuOgkZP0fZUGmpux uv086QmSuf5tjERFrgDZsYR eeVCQ3C70sg9M3JNHfNSJeE JL7qZD2 bO4olOnetbgqlSNtlHfrdnM hzPfyMXxaWZnfX001OYVduL tkYbOpFWv7M6YsOmm7WIBxf ZrgLC0t yPWsAAanMb6crNtayEqdVV2 xBOHbruvkt621ZtSwt0qaOL TseNOmCTzxCRQ3Q27dg2M2P CMwMDAw AUJ8kYD0tQ8fuGhjpeancWR mdDsgdmVydGljYWwtYWxpZ2 30OYBqeCfdJpBtoRr7O5VjI le1EGAk iEcxOJ2ysHZgFUddIu9sjAt rwQpwLE1zDTSetdxof207Qd Ucx5wnNZEowHDlKRfjATC7L 14vm2X1 ZSRtPJDpOLQ6oFQ3uO5npZa nbjogbGVmdDsgdmVydGljYW ucSQidN011AYCamAmiFcFnq GllbnQg UFkvKQn5X9CqOghjpYC+PC9 3PHVyXF05bNRxcDRdg4hkfG d8FrFjTJKbHLL7yXkyRFqgi 3JkZXIt P76byVUmq7S7PUXiiLdacBF cPoXvdTJ5mJ0pVManynjib2 zoytmvSqhly9zehu22tJ21P 29sIHdp ZHRoPSIzMCUiIHZhbGlnbj0 cjD2oUr0+MPNvzRU6wVM6nY 5lNSDuRzF7UZaeR944KpFtg CIvPjxj k3kma1rsbHh3CgP5MTJggcI rtSmrDWZ4m6DxOo71O17vYC dpZHRoPSIyMCUiIHZhbGlnb f7hwP2o Ii8+XTCtlDO1hTL8jJ7xVxO fMxZ6UIruH020VqUrhXOrTn dnC09zJ4FmqIZ+IFRqHqv7D CBzdHls QJ1fgIYmVKklHh9aXMC3SmS lBtOkZDflS1IkJNUicyjlsk hglKL4ICRjDJCmlS59Yr8qk DogMTBw gMTDyF7xiogzc1fcvazfRnC nJKTuHUy0NJp3OLCllAjuNq MmMLF2GqE9ELF8pKPlfC8oh Glnbjog yM5zP0NtRWMtuuupUv12aL6 bCvQzHuJ1QRreVvc+U0FNUy wgQUxFWEFOREVSIExFRTwvd GQ+PHRk WBI9cHcfYOmbLMQqpD5kFKA zG8u3YsVsPiG9NWcoQ6KzDT YklniyLd53nA8jYgJwAiO6R QdpK4Jw cqA9HPMavAUdRBnaQIH5I66 ky1I6RIJzJQEgJSX6iOW6fA 1hbGlnbjogbGVmdDsgdmVyd GljYWwt QYpmQ022ERAziHgdZrMzVtP 3WjA6Gyk6C7DxMqx0FUPljR eyAA4nkAUfAIniAb2oeOcne YuuEH2c GSLtmzzwXIAecD7oXTUuaTM diElrIM7wFEDvjzfum850Ql XlFVY6AEQlaTBgV3XbaZ5uQ iAjMDAw PVNxO3KcoDFaGKmzQ967GRa iOoZ2PXMuvnKlX9GuBCCzcC nnTnP3u2N3Ks52OGMWRTTwt zwvdGQ+ NYAaXPQ7vRtnSTiyKGLhfL6 rOSXaV2q0LpOdYpS2HLebS6 EnVZWfltutAx35iZ1lEgFgM pG8PUji R9IzrsA0SYQwjRBdXBgpUBK 2Q89am1Y7BGVpBZXgCPP3hE U6lK0sySllbitmaGSjsOolu mVydGlj KTrwGLluQ641NWDfsHclSe4 LESP0X1EeQee4QXFowWjsVZ 2dxYYcHChfSm7ubUerqCbpA D0lGLPi ergtFNLenI7bMBDasHUhcWy sZF2zLILrofpmv279KwRuVF S1MXWbkYCeX4TbjB2lMqPyZ DAwMDAw V8MbbEYpDXgiS968UBenMaC 6MSQsjdSdW8IbEPFkyRqbYy Y7i6T2Zl7UNfWibrJpcZppz jwvdGQ+ FN08wp67E1SsIwtdKox7VCJ oIBJ0nUK6kK7bZUAjTFbvv2 Q5gLW6X3OlzcPwno9ve1adU XBzZTog U40coBTeu6E4UHWjoPW7ZDE vbSyhNjHaiX79Hkp+PGNvbG tzt8NzPzfug9cws4fvaVm9P jMwJSIg tkDmiGgePGM1y4BxDf49N97 sIHdpZHRoPSIzMCUiIHZhbG eatp4zhT7bMk7+HKXshOC7k AP0qW8z RvZhMaY9EEzqN326ElUvhHF oUllqz1mri1wzjGf3AwMbRJ CeseAokXwrXTX4i9StVv50K 2NvbGdy n3WyWcs0ft17mFAvu4K0eJT 7U8NoQJElcpcqhOPyaJtpPZ 0tUDSuyxarWVBtgF0sXZDbJ 7v4TpHv QvX0CVpyG5WkiyU2ZKCvySF bGJDsoUQVcV9zufllg6cysm jrRcCeTGSdVZi2YYp0KUFlw WduOiBs MOV8IxK7MMB6lWBcgT6oxEn ybjgtbY3dJpw+NXv9p1bpuP LpOP5nmIY9NE82NP94pZQuf 7C5vBV1 K2XdANOffsijprxnnCF4FMX bFCDeyC66Mn3hwYajTg5jJC MpULV8QOYgzRWrN6SduN6fQ iAjMDAw ETAbV7YcuPGoCBlbA355DGc kSqU9FWOqnlUlF1BiFVQacX vwAuE1f3Y3Qb6HHN18CB48W Y33vXYd e7F0kQN6J8LaJOGqrkutzpo vvRQ6WEFjRCUcqL26Mt5tcE wrBp6sJUYuEWH2JQZltDZbZ 5SvcM1q YqCfAMVaWRZwZ9OlpQByWWa xQ355SNsySmS2CMPkifGlK2 RsDGXfmSvyDnA4n4W4Iy6CK t24GF04 PD98wNFpa5Y0tAL1Y5CkIER swynyofvrdTY7PJFkPHSywZ 19Sh4bfGdsGs3qDJOcKNF9Z FRpbWVz F3BskB0sClFxJQFzJDXyB9M bbDXdVWjkR332VMzfCeC1WL ObpgDsV7WqFOMhvJnnHfE6w 4T7Hf5N GCwtbbz7L4XjRmmfgPF+PC9 0RNIsKZ42jCXdyBMbr0wdqI h5TtOgTMQqZVB3aIuzJNydm 3JkZXIt Y29 (more content not included)... Normal [facility] .Auto Diff 03-05-2024 Auto Brown % 12 % Normal 06-17 [facility] Comment on above: Performed By: #### 1 [id number], [id number], [id number] ####[facility] (DEFAULT)[address] [place] [address] 49853 Baso Abs# 0.0 x10 Normal 0.0-0.2 [facility] Comment on above: Performed By: #### 1 [id number], [id number], [id number] ####[facility] (DEFAULT)[address] [place] [address] 08598 Basophils/100 WBC (Bld) 0.1 % Low 0.2-2.0 [facility] Comment on above: Performed By: #### 1 [id number], [id number], [id number] ####[facility] (DEFAULT)[address] [place] [address] 32665 Eos Abs# 0.0 x10 Normal 0.0-0.4 [facility] Comment on above: Performed By: #### 1 [id number], [id number], [id number] ####[facility] (DEFAULT)[address] [place] [address] 42288 Eosinophils/100 WBC (Bld) 0.2 % Low 0.9-4.0 [facility] Comment on above: Performed By: #### 1 [id number], [id number], [id number] ####[facility] (DEFAULT)[address] [place] [address] 22081 Lymph Abs# 1.4 x10 Normal 1.3-2.9 [facility] Comment on above: Performed By: #### 1 [id number], [id number], [id number] ####[facility] (DEFAULT)[address] [place] [address] 39359 Lymphocytes/100 WBC (Bld) 33 % Normal 14-48 [facility] Comment on above: Performed By: #### 1 [id number], [id number], [id number] ####[facility] (DEFAULT)[address] [place] [address] 37215 Brown Abs# 0.5 x10 Normal 0.0-0.8 [facility] Comment on above: Performed By: #### 1 [id number], [id number], [id number] ####[facility] (DEFAULT)[address] [place] [address] 04985 Neut Abs# 2.3 x10 Normal 1.5-9.2 [facility] Comment on above: Performed By: #### 1 [id number], [id number], [id number] ####[facility] (DEFAULT)[address] [place] [address] 78646 Neutrophils/100 WBC (Bld) 55 % Normal 44-88 [facility] Comment on above: Performed By: #### 1 [id number], [id number], [id number] ####[facility] (DEFAULT)[address] [place] [address]99 [facility] Standardon 03-05-2024 eGFR Non AA >60 Invalid Interpretation Code [facility] Comment on above: Performed By: #### 1 [id number], [id number], [id number] ####[facility] (DEFAULT)[address] [place] [address] 24905 eGFR AA >60 Invalid Interpretation Code [facility] Comment on above: Performed By: #### 1 [id number], [id number], [id number] ####[facility] (DEFAULT)[address] [place] [address] 76383 Anion gap [Moles/Vol] 11.5 mmol/L Normal 5.0-19.0 [facility] Comment on above: Performed By: #### 1 [id number], [id number], [id number] ####[facility] (DEFAULT)[address] [place] [address] 11558 Calcium [Mass/Vol] 8.7 mg/dL Low 8.9-10.3 [facility] Comment on above: Performed By: #### 1 [id number], [id number], [id number] ####[facility] (DEFAULT)[address] [place] [address] 65304 Chloride [Moles/Vol] 104 mmol/L Normal 101-111 [facility] Comment on above: Performed By: #### 1 [id number], [id number], [id number] ####[facility] (DEFAULT)[address] [place] [address] 06945 CO2 [Moles/Vol] 27 mmol/L Normal 21-32 [facility] Comment on above: Performed By: #### 1 [id number], [id number], [id number] ####[facility] (DEFAULT)[address] [place] [address] 01555 Creatinine [Mass/Vol] 0.89 mg/dL Low 0.90-1.30 [facility] Comment on above: Performed By: #### 1 [id number], [id number], [id number] ####[facility] (DEFAULT)[address] [place] [address] 48793 Glucose [Mass/Vol] 108.0 mg/dL Normal 74.0-118.0 [facility] Comment on above: Performed By: #### 1 [id number], [id number], [id number] ####[facility] (DEFAULT)[address] [place] [address] 56517 Osmolality 280 mOsm/L Invalid Interpretation Code [facility] Comment on above: Performed By: #### 1 [id number], [id number], [id number] ####[facility] (DEFAULT)[address] [place] [address] 57915 Potassium [Moles/Vol] 3.5 mmol/L Low 3.6-5.1 [facility] Comment on above: Performed By: #### 1 [id number], [id number], 38891518 ####[facility] (DEFAULT)[address] [place] [address] 84778 Sodium [Moles/Vol] 139.0 mmol/L Normal 136.0-144.0 [facility] Comment on above: Performed By: #### 1 [id number], 8346459, [id number] ####[facility] (DEFAULT)[address] [place] [address] 03582 Urea nitrogen [Mass/Vol] 18 mg/dL Normal 8-26 [facility] Comment on above: Performed By: #### 1 [id number], 4642273, [id number] ####[facility] (DEFAULT)[address] [place] [address] 61027 Urea nitrogen/Creatinine [Mass ratio] 20.2 mg/mg High 4.6-16.2 [facility] Comment on above: Performed By: #### 1 [id number], [id number], 68569605 ####[facility] (DEFAULT)[address] [place] [address] 16435 CBC w/ Auto Diffon 4 Erythrocyte distribution width (RBC) [Ratio] 13.1 % Normal 11.5-15.0 [facility] Comment on above: Performed By: #### 1 [id number], [id number], [id number] ####[facility] (DEFAULT)[address] [place] [address] Hematocrit (Bld) [Volume fraction] 40.7 % Normal 34.8-51.9 [facility] Comment on above: Performed By: #### 1 [id number], 2897986, [id number] ####[facility] (DEFAULT)[address] [place] [address] Hemoglobin (Bld) [Mass/Vol] 14.1 g/dL Normal 11.8-17.7 [facility] Comment on above: Performed By: #### 1 [id number], [id number], [id number] ####[facility] (DEFAULT)[address] [place] [address] Man Diff? Auto Invalid Interpretation Code [facility] Comment on above: Performed By: #### 1 [id number], [id number], [id number] ####[facility] (DEFAULT)[address] [place] [address] MCH (RBC) [Entitic mass] 29 pg Normal 24-34 [facility] Comment on above: Performed By: #### 1 [id number], [id number], [id number] ####[facility] (DEFAULT)[address] [place] [address] MCHC (RBC) [Mass/Vol] 35 g/dL Normal 26-37 [facility] Comment on above: Performed By: #### 1 [id number], [id number], [id number] ####[facility] (DEFAULT)[address] [place] [address] MCV (RBC) [Entitic vol] 84 fL Normal 81-100 [facility] Comment on above: Performed By: #### 1 [id number], [id number], [id number] ####[facility] (DEFAULT)[address] [place] [address] Platelet 90 x10 Low 138-427 [facility] Comment on above: Performed By: #### 1 [id number], [id number], [id number] ####[facility] (DEFAULT)[address] [place] [address] Platelet mean volume (Bld) [Entitic vol] 10.4 fL High 6.3-10.2 [facility] Comment on above: Performed By: #### 1 [id number], [id number], [id number] ####[facility] (DEFAULT)[address] [place] [address] RBC 4.82 x10 Normal 3.70-5.30 [facility] Comment on above: Performed By: #### 1 [id number], [id number], [id number] ####[facility] (DEFAULT)[address] [place] [address] WBC 4.2 x10 Normal 3.5-10.5 [facility] Comment on above: Performed By: #### 1 [id number], [id number], [id number] ####[facility] (DEFAULT)[address] [place] [address] Inpatient Patient Summaryon 03-05-2024 Inpatient [place] [address] Patient Discharge Instructions Name: SPIKE NIELSEN : 1980 Patient Address: [address] [place] [address] Primary Care Provider: Name: Mary Perla APRN After you are discharged if you find you have any questions, please, call [phone] ext [phone] to speak to a nurse. The Pharmacy at [facility] is open Tuesday through Tuesday from 9A to 6P and Tuesday and Tuesday from 9A to 5P Discharge Diagnosis: 1:Cellulitis of leg Prescription Information: If you have been given a prescription for narcotics, seek immediate medical attention if you have any difficulty breathing or any sudden status changes such as confusion and sleepiness. If you or anyone you know is experiencing suicidal thoughts, mental health, alcohol and/or drug addiction problems; contact the [facility] 27/12 Crisis Hotline -Text 4HOPE to 392171. If you received any narcotics, sedation, or [...] business decisions or sign any legal documents [facility] would like to thank you for allowing us to assist you with your healthcare needs. The following includes patient education materials and information regarding your injury/illness. SPIKE NIELSEN has been given the following list of follow-up instructions, prescriptions, and patient education materials: Follow-up Instructions With: Address: When: Mary Gonzalez [address] [place], [place] [id number] Business (1) 03/08/2024 1:00 PM Medications During the course of your visit, your medication list was updated with the most current information. The details of those changes are reflected below: New Medications [facility] [id number] [place], [place] [id number], [phone] cephalexin (cephalexin 500 mg oral tablet) 1 tab(s) Oral (given by mouth) 4 times a day for 10 Days. Refills: 0. potassium chloride (potassium chloride 10 mEq oral capsule, extended release) 1 cap(s) Oral (given by mouth) 2 times per day. [facility]. Refills: 0. Medications That Were Updated - Follow Below Instructions Other Medications Updated: dulaglutide (Trulicity Pen 0.75 mg/0.5 mL subcutaneous solution) 0.75 Milligram Subcutaneous (under the skin) every week. Updated: ferrous sulfate (ferrous sulfate 325 mg Tab) 1 tab(s) Oral (given by mouth) every day. Updated: fluticasone nasal (fluticasone 50 mcg/inh nasal spray) 2 spray(s) Nostril-Both every day. Updated: levomilnacipran (Fetzima 20 mg oral capsule, extended release) 1 cap(s) Oral (given by mouth) every day. AT APPOXIMATELY THE SAME TIME EACH DAY. Updated: omeprazole (omeprazole 20 mg oral delayed release capsule) 1 cap(s) Oral (given by mouth) 2 times per day. Medications to Continue That Have Not Changed Other Medications anastrozole (anastrozole 1 mg oral tablet) 1 tab(s) Oral (given by mouth) every day. busPIRone (busPIRone 10 mg oral tablet) 1 tab(s) Oral (given by mouth) 2 times per day. febuxostat (febuxostat 40 mg oral tablet) 1 tab(s) Oral (given by mouth) every day. hydrochlorothiazide-los manuel (hydrochlorothiazide-lo sartan 12.5 mg-100 mg oral tablet) 1 tab(s) Oral (given by mouth) every day. melatonin (melatonin 5 mg oral tablet) 1 tab(s) Oral (given by mouth) once a day (at bedtime) as needed for insomnia. multivitamin (Vitamin B Complex oral capsule) 1 cap(s) Oral (given by mouth) every day. traZODone (traZODone 50 mg oral tablet) 1 tab(s) Oral (given by mouth) once a day (at bedtime). It is important to always keep an active list of medications available so that you can share with other providers and manage your medications appropriately. As an additional courtesy, we are also providing you with your final active medications list that you can keep with you. anastrozole (anastrozole 1 mg oral tablet) 1 tab(s) Oral (given by mouth) every day. busPIRone (busPIRone 10 mg oral tablet) 1 tab(s) Oral (given by mouth) 2 times per day. cephalexin (cephalexin 500 mg oral tablet) 1 tab(s) Oral (given by mouth) 4 times a day for 10 Days. Refills: 0. dulaglutide (Trulicity Pen 0.75 mg/0.5 mL subcutaneous solution) 0.75 Milligram Subcutaneous (under the skin) every week. febuxostat (febuxostat 40 mg oral tablet) 1 tab(s) Oral (given by mouth) every day. ferrous sulfate (ferrous sulfate 325 mg Tab) 1 tab(s) Oral (given by mouth) every day. fluticasone nasal (fluticasone 50 mcg/inh nasal spray) 2 spray(s) Nostril-Both every day. hydrochlorothiazide-los manuel (hydrochlorothiazide-lo sartan 12.5 mg-100 mg oral tablet) (more content not included)... [facility] Noteon 03-05-2024 Pharmacy Note I have personally reviewed the patient's medication list upon discharge including, prescription medications, OTC products, vitamins and supplements. Below are the following medications the patient is discharged on. New Medications [facility] [id number], [address], [place] [id number], [phone] cephalexin (cephalexin 500 mg oral tablet) 1 tab(s) Oral (given by mouth) 4 times a day for 10 Days. Refills: 0. potassium chloride (potassium chloride 10 mEq oral capsule, extended release) 1 cap(s) Oral (given by mouth) 2 times per day. MAGRU. Refills: 0. Medications That Were Updated - Follow Below Instructions Other Medications Updated: dulaglutide (Trulicity Pen 0.75 mg/0.5 mL subcutaneous solution) 0.75 Milligram Subcutaneous (under the skin) every week. Updated: ferrous sulfate (ferrous sulfate 325 mg Tab) 1 tab(s) Oral (given by mouth) every day. Updated: fluticasone nasal (fluticasone 50 mcg/inh nasal spray) 2 spray(s) Nostril-Both every day. Updated: levomilnacipran (Fetzima 20 mg oral capsule, extended release) 1 cap(s) Oral (given by mouth) every day. AT APPOXIMATELY THE SAME TIME EACH DAY. Updated: omeprazole (omeprazole 20 mg oral delayed release capsule) 1 cap(s) Oral (given by mouth) 2 times per day. Medications to Continue That Have Not Changed Other Medications anastrozole (anastrozole 1 mg oral tablet) 1 tab(s) Oral (given by mouth) every day. busPIRone (busPIRone 10 mg oral tablet) 1 tab(s) Oral (given by mouth) 2 times per day. febuxostat (febuxostat 40 mg oral tablet) 1 tab(s) Oral (given by mouth) every day. hydrochlorothiazide-los manuel (hydrochlorothiazide-lo sartan 12.5 mg-100 mg oral tablet) 1 tab(s) Oral (given by mouth) every day. melatonin (melatonin 5 mg oral tablet) 1 tab(s) Oral (given by mouth) once a day (at bedtime) as needed for insomnia. multivitamin (Vitamin B Complex oral capsule) 1 cap(s) Oral (given by mouth) every day. traZODone (traZODone 50 mg oral tablet) 1 tab(s) Oral (given by mouth) once a day (at bedtime). Discharge Med Rec Notes: Counseled patient on new medications of Keflex and KCl. Reviewed admission medication list against external fill history and available REEL HOOKER medication history to ensure accuracy. Reviewed regimen upon discharge which is appropriate and correct. [Electronically Signed on: 03/05/2024 15:18 EDT] Emiliano Aguayo PharmD [Verified on: 03/05/2024 15:18 EDT] Emiliano Aguayo PharmD Normal [facility] .Auto Diff 1on 03-04-2024 Auto Brown % 10 % Normal 1-12 [facility] Comment on above: Performed By: #### 7 [id number], [id number], [id number] ####[facility] (DEFAULT)[address] [place] [address] Baso Abs# 0.0 x10 Normal 0.0-0.2 [facility] Comment on above: Performed By: #### 7 197963, [id number], [id number] ####[facility] (DEFAULT)[address] [place] [address] Basophils/100 WBC (Bld) 0.0 % Low 0.2-2.0 [facility] Comment on above: Performed By: #### 7 915466, 94487577, [id number] ####[facility] (DEFAULT)[address] [place] [address] Eos Abs# 0.0 x10 Normal 0.0-0.4 [facility] Comment on above: Performed By: #### 7 973913, 14021305, [id number] ####[facility] (DEFAULT)[address] [place] [address] Eosinophils/100 WBC (Bld) 0.2 % Low 0.9-4.0 [facility] Comment on above: Performed By: #### 7 720926, 53955614, [id number] ####[facility] (DEFAULT)[address] [place] [address] 05262 Lymph Abs# 1.5 x10 Normal 1.3-2.9 [facility] Comment on above: Performed By: #### 7 165703, 67594618, [id number] ####[facility] (DEFAULT)[address] [place] [address] 07797 Lymphocytes/100 WBC (Bld) 29 % Normal 14-48 [facility] Comment on above: Performed By: #### 7 549399, 52654846, [id number] ####[facility] (DEFAULT)[address] [place] [address] 76770 Brown Abs# 0.5 x10 Normal 0.0-0.8 [facility] Comment on above: Performed By: #### 7 435474, 12264842, [id number] ####[facility] (DEFAULT)[address] [place] [address] 83006 Neut Abs# 3.1 x10 Normal 1.5-9.2 [facility] Comment on above: Performed By: #### 7 649241, 99338642, [id number] ####[facility] (DEFAULT)[address] [place] [address] 48704 Neutrophils/100 WBC (Bld) 61 % Normal 44-88 [facility] Comment on above: Performed By: #### 7 433798, 14366528, [id number] ####[facility] (DEFAULT)[address] [place] [address] 00160 CBC w/ Auto Diffon 4 Erythrocyte distribution width (RBC) [Ratio] 13.3 % Normal 11.5-15.0 [facility] Comment on above: Performed By: #### 7 921027, 24204162, [id number] ####[facility] (DEFAULT)[address] [place] [address] Hematocrit (Bld) [Volume fraction] 40.7 % Normal 34.8-51.9 [facility] Comment on above: Performed By: #### 7 699028, 23227331, [id number] ####[facility] (DEFAULT)[address] [place] [address] Hemoglobin (Bld) [Mass/Vol] 14.0 g/dL Normal 11.8-17.7 [facility] Comment on above: Performed By: #### 7 835641, 02924820, [id number] ####[facility] (DEFAULT)[address] [place] [address] 21758 Man Diff? Auto Invalid Interpretation Code [facility] Comment on above: Performed By: #### 7 608036, 70720019, [id number] ####[facility] (DEFAULT)[address] [place] [address] 15795 MCH (RBC) [Entitic mass] 29 pg Normal 24-34 [facility] Comment on above: Performed By: #### 7 025490, 02758024, 0743441474 ####[facility] (DEFAULT)[address] [place] [address] 17536 MCHC (RBC) [Mass/Vol] 34 g/dL Normal 26-37 [facility] Comment on above: Performed By: #### 7 480904, 56383147, [id number] ####[facility] (DEFAULT)[address] [place] [address] 78055 MCV (RBC) [Entitic vol] 85 fL Normal 81-100 [facility] Comment on above: Performed By: #### 7 615105, 47699891, [id number] ####[facility] (DEFAULT)[address] [place] [address] 72401 Platelet 90 x10 Low 138-427 [facility] Comment on above: Performed By: #### 7 275252, 57288558, [id number] ####[facility] (DEFAULT)[address] [place] [address] 72596 Platelet mean volume (Bld) [Entitic vol] 10.4 fL High 6.3-10.2 [facility] Comment on above: Performed By: #### 7 793431, 31982812, 5806943292 ####[facility] (DEFAULT)[address] [place] [address] 34525 RBC 4.79 x10 Normal 3.70-5.30 [facility] Comment on above: Performed By: #### 7 424729, 30273242, [id number] ####[facility] (DEFAULT)[address] [place] [address] 33798 WBC 5.1 x10 Normal 3.5-10.5 [facility] Comment on above: Performed By: #### 7 130549, 45725582, [id number] ####[facility] (DEFAULT)[address] [place] [address] 76833 CMP Standardon 03-04-2024 eGFR Non AA >60 Invalid Interpretation Code [facility] Comment on above: Performed By: #### 7 651437, 06198814, [id number] ####[facility] (DEFAULT)[address] [place] [address] 48740 eGFR AA >60 Invalid Interpretation Code [facility] Comment on above: Performed By: #### 7 539052, 65211979, [id number] ####[facility] (DEFAULT)[address] [place] [address] 83594 Albumin [Mass/Vol] 3.8 g/dL Normal 3.5-5.0 [facility] Comment on above: Performed By: #### 7 589172, 47816864, [id number] ####[facility] (DEFAULT)[address] [place] [address] 61937 Albumin/Globulin [Mass ratio] 1.3 {ratio} Low 1.4-2.6 [facility] Comment on above: Performed By: #### 7 616795, 35375384, [id number] ####[facility] (DEFAULT)[address] [place] [address] 66363 Alk Phos 53 IU/L Normal 32-91 [facility] Comment on above: Performed By: #### 7 783498, 55770227, [id number] ####[facility] (DEFAULT)[address] [place] [address] 15574 ALT [Catalytic activity/Vol] 42.0 U/L Normal 17.0-63.0 [facility] Comment on above: Performed By: #### 7 172713, 19893807, 0853464069 ####[facility] (DEFAULT)[address] [place] [address] 61118 Anion gap [Moles/Vol] 10.4 mmol/L Normal 5.0-19.0 [facility] Comment on above: Performed By: #### 7 282505, 77021190, [id number] ####[facility] (DEFAULT)[address] [place] [address] 45957 AST [Catalytic activity/Vol] 25 U/L Normal 15-41 [facility] Comment on above: Performed By: #### 7 443145, 30785669, [id number] ####[facility] (DEFAULT)[address] [place] [address] 33210 Bili Total 1.0 mg/dL Normal 0.3-1.2 [facility] Comment on above: Performed By: #### 7 694094, 12291721, [id number] ####[facility] (DEFAULT)[address] [place] [address] 04882 Calcium [Mass/Vol] 8.6 mg/dL Low 8.9-10.3 [facility] Comment on above: Performed By: #### 7 607979, 88692182, [id number] ####[facility] (DEFAULT)[address] [place] [address] 80841 Chloride [Moles/Vol] 102 mmol/L Normal 101-111 [facility] Comment on above: Performed By: #### 7 591227, 10777323, [id number] ####[facility] (DEFAULT)[address] [place] [address] 09412 CO2 [Moles/Vol] 28 mmol/L Normal 21-32 [facility] Comment on above: Performed By: #### 7 785746, 28896905, [id number] ####[facility] (DEFAULT)[address] [place] [address] 15349 Creatinine [Mass/Vol] 1.05 mg/dL Normal 0.90-1.30 [facility] Comment on above: Performed By: #### 7 373780, 25872161, 4747972838 ####[facility] (DEFAULT)[address] [place] [address] 44716 Globulin (S) [Mass/Vol] 2.9 g/dL Normal 1.5-4.3 [facility] Comment on above: Performed By: #### 7 814311, 35192225, [id number] ####[facility] (DEFAULT)[address] [place] [address] 86083 Glucose [Mass/Vol] 102.0 mg/dL Normal 74.0-118.0 [facility] Comment on above: Performed By: #### 7 147194, 95578432, [id number] ####[facility] (DEFAULT)[address] [place] [address] 62113 Osmolality 277 mOsm/L Invalid Interpretation Code [facility] Comment on above: Performed By: #### 7 004084, 59181664, [id number] ####[facility] (DEFAULT)[address] [place] [address] 81036 Potassium [Moles/Vol] 3.4 mmol/L Low 3.6-5.1 [facility] Comment on above: Performed By: #### 7 761435, 72418749, [id number] ####[facility] (DEFAULT)[address] [place] [address] 44925 Protein [Mass/Vol] 6.7 g/dL Normal 6.5-8.1 [facility] Comment on above: Performed By: #### 7 151635, 39249125, 0624958705 ####[facility] (DEFAULT)[address] [place] [address] 54994 Sodium [Moles/Vol] 137.0 mmol/L Normal 136.0-144.0 [facility] Comment on above: Performed By: #### 7 108811, 57692803, 3603557920 ####[facility] (DEFAULT)[address] [place] [address] 19433 Urea nitrogen [Mass/Vol] 20 mg/dL Normal 8-26 [facility] Comment on above: Performed By: #### 7 674356, 23819202, [id number] ####[facility] (DEFAULT)[address] [place] [address] Urea nitrogen/Creatinine [Mass ratio] 19.0 mg/mg High 4.6-16.2 [facility] Comment on above: Performed By: #### 7 153754, 32075257, [id number] ####[facility] (DEFAULT)[address] [place], [place] [address] ED Clinical Summaryon 2023 ED Clinical Summary [facility] - Emergency Department [address] [place], [place] [address] ED Clinical Summary PERSON INFORMATION Name: SPIKE NIELSEN Age: 43 Years Sex: MALE : 1980 MRN: Acct#: Visit Reason: Skin problem; R LEG CELLULITIS Arrival: 03/03/2024 20:53:18 Discharge: LOS: 000 04:32 Check In: 03/03/2024 20:53:18 Checkout:03/04/2024 01:25:58 Address: [address] [place] [address] PCP: Mary Perla APRN PROVIDER INFORMATION Provider Role Assigned Unassigned Umer Roberson MD ED Provider 03/03/2024 21:02:04 Genie Benito RN ED Nurse 03/03/2024 21:05:59 VITALS INFORMATION Vital Sign Triage Latest Temperature Tympanic Temperature Temporal Artery Pulse Rate O2 Sat 96 % 96 % Respiratory Rate 21 br/min 18 br/min Blood Pressure /75 mmHg /75 mmHg MEDICAL INFORMATION Medications Given: Medication Dose Route ampicillin-sulbactam (Unasyn) 3 gm IV Piggyback Allergy Information: Wellbutrin PHYSICIAN DOCUMENTATION DISCHARGE INFORMATION: Discharge Disposition: Admitted as Observation Discharge Location: PATIENT EDUCATION INFORMATION Instructions: Follow-Up: DIAGNOSIS: 1:Cellulitis of leg Patient Understands: Yes - Patient/family/caregive r verbalizes understanding of instructions given Comment: [facility] ED Note-Nursingon 03-04-2024 ED Note-Nursing Patient admitted to the floor, hospitalist to review cultures. Normal [facility] ED Patient Education Noteon 03-04-2024 ED Patient Education Note Education Materials Normal [facility] ED Patient Summaryon 024 ED Patient Summary [facility] - Emergency Department [address] [place] [address] PATIENT DISCHARGE INSTRUCTIONS Patient Information Name: SPIKE NIELSEN Age: 43 Years Date of : 1980 Reason For Visit: Skin problem; R LEG CELLULITIS Arrival Time: 03/03/2024 20:53:18 Primary Care Physician: Mary Perla APRN Attending Physician: John Lux MD Comment: Visit Diagnosis: Diagnoses This Visit Cellulitis of leg (L03.119) Skin problem ([id number]) The Pharmacy at [facility] is open Tuesday through Tuesday from [...] alcohol and/or drug addiction problems; contact the [facility] 27/12 Crisis Hotline -Text 7NGBR bn [phone]. If you received any narcotics, sedation, or [...] business decisions or sign any legal documents Medication Information: The exam and treatment you received today in the [facility] Emergency Department were for an urgent problem and are not intended as complete care. It is important for you to follow up with a doctor, nurse practitioner, or physician?s veterinary assistant technician for ongoing care. If your symptoms become [...] of medications post discharge. Please inform your carding doubler/provider of your visit and for further instruction on these medications. Any specific questions regarding your chronic medications and dosages should be discussed with your primary care physician(s) and/or pharmacist. Medications to Continue That Have Not Changed Other Medications anastrozole (anastrozole 1 mg oral tablet) 1 tab(s) Oral (given by mouth) every day. busPIRone (busPIRone 15 mg oral tablet) 1 tab(s) Oral (given by mouth) 2 times per day. dulaglutide (Trulicity Pen 0.75 mg/0.5 mL subcutaneous [...] cap(s) Oral (given by mouth) 2 times per day. TAKE 1 CAPSULE BY MOUTH TWICE DAILY. traZODone (traZODone 100 mg oral tablet) 2 tab(s) Oral (given by mouth) once a day (at bedtime). Visit Information Allergies: Substance Reaction Symptoms Type Comments Wellbutrin Drug Vital Signs: Vitals and Measurements this Visit (last charted value for your 03/03/2024 visit) Vital Signs This Visit Temperature Oral: 37.0 DegC Heart Rate Monitored: 86 bpm Respiratory Rate: 18 br/min Systolic Blood Pressure: 151 mmHg Diastolic Blood Pressure: 83 mmHg SpO2: 96 % Oxygen Therapy: Room air Measurements This Visit Height/Length Measured: 175.26 cm Weight Measured: 174.18 kg Weight Dosin.180 kg Body Mass Index: 56.71 kg/m2 Problems List: Problem Onset Comments Hypercholesteremia H (more content not included)... Normal [facility] HgbA1c Standardon 03-04-2024 .Hb 15.7 Invalid Interpretation Code [facility] Comment on above: Order Comment: may a dd on to already drawn blood if able Performed By: #### 1 [id number] ####[facility] (DEFAULT)[address] [place] [address] .Hgb A1c 0.55 g/dL Invalid Interpretation Code [facility] Comment on above: Order Comment: may a dd on to already drawn blood if able Performed By: #### 1 [id number] ####[facility] (DEFAULT)[address] [place] [address] 50375 Glucose [Mass/Vol] 105 mg/dL Invalid Interpretation Code [facility] Comment on above: Order Comment: may a dd on to already drawn blood if able Performed By: #### 1 [id number] ####[facility] (DEFAULT)[address] [place] [address] 40346 HbA1c (Bld) [Mass fraction] 5.3 % Normal 4.6-6.2 [facility] Comment on above: Order Comment: may a dd on to already drawn blood if able Performed By: #### 1 [id number] ####[facility] (DEFAULT)[address] [place] [address] 39840 Nutrition Noteon 03-04-2024 Nutrition Note Chart reviewed. 43 y /o pt admitted for R Leg Cellulitis, cultures taken and hospitalist to review. Reviewed labs: Na, K+, BUN, and glucose all improving. Reviewed pertinent nutrition related meds: ampicillin-sulbactam (antibiotic). Weight reviewed, noted about a 9 lb weight increase since June 2023, current BMI 56, considered obese. No n/v/d/c noted. Current diet order regular, appropriate for pt. Will provide adequate calories and protein. Pt is mild nutrition risk at this time. Will continue to monitor PO intake, weight and labs as needed. [facility] Pharmacy Noteon 03-04-2024 Pharmacy Note The following medications(s) has been reviewed for renal dose adjustment per P &T protocol based on the patient's current creatinine clearance: Medication: Ampicillin/Sulbactam 3gm Q6H Estimated CrCl: 140 ml/min (based on adjusted body weight) Action: No change required Changes Made: [Electronically Signed on: 03/04/2024 10:58 EDT] Emiliano Aguayo PharmD [Verified on: 03/04/2024 10:58 EDT] Emiliano Aguayo PharmD [facility] .Auto Diff 1on 03-03-2024 Auto Brown % 9 % Normal 06-17 [facility] Comment on above: Performed By: #### 1 [id number], 59511719, 8083365, 4378299351, [id number] ####[facility] (DEFAULT)[address] [place] [address] Baso Abs# 0.0 x10 Normal 0.0-0.2 [facility] Comment on above: Performed By: #### 1 [id number], 81712027, 7641010, 5774035138, 3772798074 ####[facility] (DEFAULT)[address] [place] [address] Basophils/100 WBC (Bld) 0.5 % Normal 0.2-2.0 [facility] Comment on above: Performed By: #### 1 607457413, 74859046, 4551188, 2734565683, 3682214185 ####[facility] (DEFAULT)[address] [place] [address] 05835 Eos Abs# 0.0 x10 Normal 0.0-0.4 [facility] Comment on above: Performed By: #### 1 054254034, 61791607, 3080739, 6744094619, 9101440242 ####[facility] (DEFAULT)[address] [place] [address] 63668 Eosinophils/100 WBC (Bld) 0.2 % Low 0.9-4.0 [facility] Comment on above: Performed By: #### 1 [id number], 44171484, 7917930, 4493647635, 5197038378 ####[facility] (DEFAULT)[address] [place] [address] 00573 Lymph Abs# 1.4 x10 Normal 1.3-2.9 [facility] Comment on above: Performed By: #### 1 083855784, 40895473, 1509255, 8915062139, 9155905725 ####[facility] (DEFAULT)[address] [place] [address] 52444 Lymphocytes/100 WBC (Bld) 25 % Normal 14-48 [facility] Comment on above: Performed By: #### 1 150260693, 64778396, 4214340, 2361807577, [id number] ####[facility] (DEFAULT)[address] [place] [address] 22968 Brown Abs# 0.5 x10 Normal 0.0-0.8 [facility] Comment on above: Performed By: #### 1 158013533, 08266751, 2115691, 5631461293, 2716498582 ####[facility] (DEFAULT)[address] [place] [address] 49615 Neut Abs# 3.5 x10 Normal 1.5-9.2 [facility] Comment on above: Performed By: #### 1 180241759, 09504158, 6050833, 3356725449, 0527442798 ####[facility] (DEFAULT)[address] [place] [address] 70306 Neutrophils/100 WBC (Bld) 65 % Normal 44-88 [facility] Comment on above: Performed By: #### 1 323369508, 18249382, 4509797, 9886403844, 3018334799 ####[facility] (DEFAULT)[address] [place] [address] CBC w/ Auto Diffon 4 Erythrocyte distribution width (RBC) [Ratio] 12.9 % Normal 11.5-15.0 [facility] Comment on above: Performed By: #### 1 [id number], 78225135, 3476354, 8668527130, 1026998734 ####[facility] (DEFAULT)[address] [place], [place] [address] Hematocrit (Bld) [Volume fraction] 43.9 % Normal 34.8-51.9 [facility] Comment on above: Performed By: #### 1 476843742, 01729374, 5322765, 6599544417, 4188647947 ####[facility] (DEFAULT)[address] [place] [address] 21403 Hemoglobin (Bld) [Mass/Vol] 15.0 g/dL Normal 11.8-17.7 [facility] Comment on above: Performed By: #### 1 589057661, 74445644, 4420626, 6792735251, 6244424117 ####[facility] (DEFAULT)[address] [place] [address] 10873 Man Diff? Auto Invalid Interpretation Code [facility] Comment on above: Performed By: #### 1 [id number], 03675877, 8251383, 1485457764, 4725265784 ####[facility] (DEFAULT)[address] [place] [address] 77203 MCH (RBC) [Entitic mass] 29 pg Normal 24-34 [facility] Comment on above: Performed By: #### 1 088759133, 40516786, 7516506, 7395722649, 7415446184 ####[facility] (DEFAULT)[address] [place] [address] MCHC (RBC) [Mass/Vol] 34 g/dL Normal 26-37 [facility] Comment on above: Performed By: #### 1 210891312, 24446449, 8557478, 6656951482, 0376649317 ####[facility] (DEFAULT)[address] [place] [address] MCV (RBC) [Entitic vol] 85 fL Normal 81-100 [facility] Comment on above: Performed By: #### 1 [id number], 21587883, 2486483, 2717680737, 8550484637 ####[facility] (DEFAULT)[address] [place] [address] Platelet 91 x10 Low 138-427 [facility] Comment on above: Performed By: #### 1 259548648, 28897824, 2267565, 0843358857, 0505029339 ####[facility] (DEFAULT)[address] [place] [address] Platelet mean volume (Bld) [Entitic vol] 9.6 fL Normal 6.3-10.2 [facility] Comment on above: Performed By: #### 1 551211606, 94126294, 0940953, 7339957179, 8283205043 ####[facility] (DEFAULT)[address] [place] [address] RBC 5.16 x10 Normal 3.70-5.30 [facility] Comment on above: Performed By: #### 1 354845294, 06539277, 7401060, 6637621162, 3414131044 ####[facility] (DEFAULT)[address] [place] [address] WBC 5.4 x10 Normal 3.5-10.5 [facility] Comment on above: Performed By: #### 1 312047717, 23363770, 8581874, 2663631436, 6863701449 ####[facility] (DEFAULT)[address] [place] [address] 68213 CMP Standardon 03-03-2024 eGFR Non AA >60 Invalid Interpretation Code [facility] Comment on above: Performed By: #### 1 [id number], 03554299, 9326240, 5745348047, 0777476779 ####[facility] (DEFAULT)[address] [place] [address] 09738 eGFR AA >60 Invalid Interpretation Code [facility] Comment on above: Performed By: #### 1 [id number], 77695130, 2090455, 3427196049, [id number] ####[facility] (DEFAULT)[address] [place] [address] 88691 Albumin [Mass/Vol] 4.1 g/dL Normal 3.5-5.0 [facility] Comment on above: Performed By: #### 1 148618664, 19537852, 1283870, 1722597788, 0195720960 ####[facility] (DEFAULT)[address] [place] [address] 70003 Albumin/Globulin [Mass ratio] 1.2 {ratio} Low 1.4-2.6 [facility] Comment on above: Performed By: #### 1 628469110, 46912973, 8998897, 3547754869, 5297705679 ####[facility] (DEFAULT)[address] [place] [address] 97721 Alk Phos 61 IU/L Normal 32-91 [facility] Comment on above: Performed By: #### 1 [id number], 48329446, 9874467, 3112102837, [id number] ####[facility] (DEFAULT)[address] [place] [address] 02810 ALT [Catalytic activity/Vol] 46.0 U/L Normal 17.0-63.0 [facility] Comment on above: Performed By: #### 1 705514647, 48529136, 7270129, 6756294881, 4469639030 ####[facility] (DEFAULT)[address] [place] [address] 43105 Anion gap [Moles/Vol] 5.0 mmol/L Normal 5.0-19.0 [facility] Comment on above: Performed By: #### 1 [id number], [id number], 6842244, [id number], [id number] ####[facility] (DEFAULT)[address] [place] [address] 65889 AST [Catalytic activity/Vol] 29 U/L Normal 15-41 [facility] Comment on above: Performed By: #### 1 [id number], [id number], 2712751, [id number], [id number] ####[facility] (DEFAULT)[address] [place] [address] 87666 Bili Total 1.0 mg/dL Normal 0.3-1.2 [facility] Comment on above: Performed By: #### 1 [id number], 47088513, 7392177, [id number], [id number] ####[facility] (DEFAULT)[address] [place] [address] 68711 Calcium [Mass/Vol] 8.5 mg/dL Low 8.9-10.3 [facility] Comment on above: Performed By: #### 1 [id number], 51577054, 2410689, [id number], [id number] ####[facility] (DEFAULT)[address] [place] [address] 32245 Chloride [Moles/Vol] 103 mmol/L Normal 101-111 [facility] Comment on above: Performed By: #### 1 [id number], 59748126, 0698850, [id number], [id number] ####[facility] (DEFAULT)[address] [place] [address] 16370 CO2 [Moles/Vol] 28 mmol/L Normal 21-32 [facility] Comment on above: Performed By: #### 1 [id number], 08358177, 2234255, [id number], [id number] ####[facility] (DEFAULT)[address] [place] [address] 48820 Creatinine [Mass/Vol] 0.96 mg/dL Normal 0.90-1.30 [facility] Comment on above: Performed By: #### 1 [id number], 00422245, 9616306, [id number], [id number] ####[facility] (DEFAULT)[address] [place] [address] 34768 Globulin (S) [Mass/Vol] 3.3 g/dL Normal 1.5-4.3 [facility] Comment on above: Performed By: #### 1 [id number], 40240519, 7395105, [id number], [id number] ####[facility] (DEFAULT)[address] [place] [address] 70947 Glucose [Mass/Vol] 126.0 mg/dL High 74.0-118.0 [facility] Comment on above: Performed By: #### 1 [id number], 00626733, 6718980, [id number], [id number] ####[facility] (DEFAULT)[address] [place] [address] 60748 Osmolality 271 mOsm/L Invalid Interpretation Code [facility] Comment on above: Performed By: #### 1 [id number], 24429219, 5111441, [id number], [id number] ####[facility] (DEFAULT)[address] [place] [address] 83367 Potassium [Moles/Vol] 3.0 mmol/L Low 3.6-5.1 [facility] Comment on above: Performed By: #### 1 [id number], 17193203, 3065439, [id number], [id number] ####[facility] (DEFAULT)[address] [place] [address] 56105 Protein [Mass/Vol] 7.4 g/dL Normal 6.5-8.1 [facility] Comment on above: Performed By: #### 1 [id number], 77014201, 3922448, [id number], [id number] ####[facility] (DEFAULT)[address] [place] [address] 67802 Sodium [Moles/Vol] 133.0 mmol/L Low 136.0-144.0 [facility] Comment on above: Performed By: #### 1 [id number], 47901136, 2744277, [id number], [id number] ####[facility] (DEFAULT)[address] [place] [address] Urea nitrogen [Mass/Vol] 21 mg/dL Normal 8-26 [facility] Comment on above: Performed By: #### 1 [id number], 01996300, 8949092, [id number], [id number] ####[facility] (DEFAULT)[address] [place] [address] Urea nitrogen/Creatinine [Mass ratio] 21.8 mg/mg High 4.6-16.2 [facility] Comment on above: Performed By: #### 1 [id number], 57335231, 9735235, [id number], [id number] ####[facility] (DEFAULT)[address] [place] [address] Extra Redon 03-03-2024 Tube Collected Yes Invalid Interpretation Code [facility] Comment on above: Performed By: #### 1 [id number], 16066784, 7832938, [id number], [id number] ####[facility] (DEFAULT)[address] [place] [address] Lactic Acidon 03-03-2024 Lactic Acid 7.7 mg/dL Normal 4.5-19.8 [facility] Comment on above: Performed By: #### 2 [id number] ####[facility] (DEFAULT)[address] [place] [address] Coding Summaryon 09-27-2023 Coding Summary HTMLBase 64 RijsyfywKQd5mPl+PGhlYWQ +YI4PFAUyY20juUXxeT0yI4 NMTElOSywgQVBQTElOSyIgb mFxSD4uhRPyTBVr IC8+VZ4zJOSeJvtjtFOcy5G 9wKU1S11wbq2gYQcftMO7WS ChYrUvslbio4yjpSb2TWvlS mluOyBt QJTenV77PVZ8eA25Zr25hXF vsWCis8xzpZj3KrGhDBJmNS T6xGsaYBzuk1NcRNTfN23jg HQof0X1 ZAGslCszaAPkDlBraUV1bA2 iVSiibbuje2kcqrucJvm7zd 49iAAnc7T2gDL8C9GmovQ9N GJvbGQg MljwpAAIcI8wqtrzf0wlkxd eZmWaOQPpNPu7TUo1JMKxaG cbJuAlUZ32PXM4OVXcjrMhN 2FsLWFs aZuzGcQ8b1B8Pj8QB4TYQjk dH3KUJSNRCZnioDL+PC90cj 66F9YmBhrxJcc7VEJoTVS7l IE7oG0g EYQfVKgmx1V3iMX0I5JoqbI muv2iy0iuRVBxKDxzC25rcJ Uqh4E2WOBhvGM4IVSrmCdaL iBzaG93 Oyc+MVNhvLdlz2AtOmnkj6c ec2igpVp1XretIBHirsHzuB xnJJC2j1LsSf5fIXAdwJM0g LQ2oP4z KuXwNhQ0EHsxH269VfYoqGC aAtdyQ73qE6SanIO+PHRyPj k3WPSrcLojLG6iI3DhCKXfs mctbGVm wDnbEY4iBOGsxfrhLGHusM5 gVIDjA0v9LkNiKuD6GHnrW9 ZpWSUlycidBz13xK5lUfOcC mY1FSde P8WczmW9ANMbfFBfILsxYAZ 7P97tc2Z5MGYoSUHeROD7pS M6xK4riRjjnppddGYopLywx mVydGlj XSmkMKisR490VGHywXsaPxO vZGluZyBEYXRlOiAgMDQvMj MvMjAyNDwvdGQ+LMYfZHA1h WxlPSAn hWBjFCuxLb6ztRfvtVpkAQ5 iVNObzizqTMYdqS1gOFRwbW SxlBsjPB5sSNHgictek873A iAxMHB0 OVNwnFHdD9PcjB4wLdGiKVT oLVVgD8TobAQmNTrgK056XK deHsC8PJLogbKqQ3OfPOFjf WduOiB0 u9A4Re6Vx8VquikbK9HvaRE dQpZeBacyDJa5K3EdOswgpN I+OV42WPUfXH17OEu8DXR7g WxlPSdi ICFqT2MgpJ3qOcYfPIZpFGN kOyc+PHRhYmxlIHdpZHRoPS nlGZBkYoGdqUalIU8xFi8dY GVyLWNv vPlvhUFoRjHnr1quKRLkUVi cEH1mhAzgR9RuzUN1TULvh4 v9Zz03C06lG2JyhVT+PGNvb KR7gEV2 oV3oIuXoIqY2OCwiK987VjO qaWGeBujup4mkp2dlyHx9Il Y3FAJxpdTcjNvrQTI6w7HtW s32U93n IHdpZHRoPSIxNSUiIHZhbGl krp1seZ1zEi0+GDUgzEE8fO A2nM7kAfXgSuS9OAurF387N nRvcCIv Wioeh0yjg4puoUw4QoIpHGZ wprZfkSpcTLI8z2WiDp32L3 BvcMskb1PwMsf0ws34xKNvt 3G2oCH8 T3JzBAHhteklfFCgnPulBC4 hZFHmkdrhLPAfyU5zKNYuV4 y5AeYgTuV2DIsgL3QbbjZ0I GJvbGQg FUSbuDQKfB7fcwdsh7czzri aEeVnCCCeXPu7VSq8GBXvtP myNnLmOWV6UzB3SCW7cBHsm X2pqPfn hnuybO7dAro+WQV3bXUenKY NCB7cCgwhzPU+TYDwJXJ0cT jgVQziGOTzwY5eVCMcP4c5C iAwLjA1 RMpyC2RksgH8KQJuuTBmAZU ypPRBsN7vbqlfs9qnbuqtHr YgRBQqSDq8UHr8QFRqcDlsL iBsZWZ0 KaB1SKG8mQGcvJ2upGgvcze liO1wLpz+XicwrNuwOKV4EZ u2O5QdGcy8RXAgxHxeLM5am GFkZGlu Ha7jnBgwqAcpYE4cGUQgnom aw056VtOuh8uuJTKlmVPfOT zzXJB8B02qw5I8PBXgXNUnO DC2qJS8 jH4reEfmlgatkIUqoZecdmG seJvuDEptABkcG650PJBqnA ziGhHkOPp9Y7XnGay1NQFph AlzHQ1c tTPyTHnkFh4meEqelWdjGW5 xEVGsasfae101VtPtq9rmCX MvwORoLCfsKYJ9O48bw5U7X CMwMDAw GIO3sUO9iI8xuYugwhodrMI mdDsgdmVydGljYWwtYWxpZ2 80SJMerLobYvZgnOp9P6LoU ae5SHXg tHnuPV7vbDGjUVfcIq5hnDr ghGbqKU6nTAHvdxmec509Dq Unp4jvVTRimFCsTMoaCNQ6Z 95fo9J1 OFRzVPKvGKQ8uZM0iB2smJc nbjogbGVmdDsgdmVydGljYW srRHkdR847HDZrzEqbIpCzz GllbnQg JIanNEr2C9UuImwjcAU+PC9 9LQSdJQ42qIKtfDFye2tdfG q6YlTqCSYjVYX9tEurLUprc 3JkZXIt H97vxUXnm1E8GPWuvYehdVJ aRiNrmYZ1mT5zSYjxcfbgf1 vubfrcErmtq3rkxd29lU01N 29sIHdp ZHRoPSIzMCUiIHZhbGlnbj0 tcS0hSu4+EPMhvFN5nMU1vR 9jDTWqVoM4YNvcQ042AvVmd CIvPjxj q0rsv5uqiMx5BzT8MMExipO luUfgBHU6v3JvQh22A67sLQ dpZHRoPSIyMCUiIHZhbGlnb j4fcW9s Ii8+MSEldDL2aZK6kF8xXkE xIvA2FHpfE994HlRzkJOcIr sbS00eN1LlrKA+NLNuEsm0S CBzdHls UG2rnDVbCAmsWg6cBTB6HvJ yRyBhJZtaN3NgKYGqvxfdrn qtbWC5CNHlGYPueQ38On6xs DogMTBw uOOAdT0tehtph4fqrcizLzU oWEMdZBp4UJj6XJKjfWrsCn IuEJE9NgA6RQE2gBFpcX3bv Glnbjog vJ1kN9VxUZHvlawiGr40xN4 yJoLtDzA8BInuLse+U0FNUy wgQUxFWEFOREVSIExFRTwvd GQ+PHRk LRU8oXodJXzwZTPpwW1eCSQ vO9j2PgZjScD7ZFfuM1PoFK DwxikbQt47cK5rFrMjWyA2W BddB8Fe lrG6JMQehHZrBGrxOHR7T77 ew2U9IDVuDGDbTSU0vVU8sY 1hbGlnbjogbGVmdDsgdmVyd GljYWwt VNejK908HQAmfMvkLqMfPtM 4NgD8Cmp7V4JpDuq7JORsaX zmZY8jmJDvHNrdAm5tvYseu FqeIM3n RGFudqkoLWXrgT1mDCNwrUL faOpcNZ1zVYPiawqwt894Wc AfFYE5BUPjdSFjM3HijR3lI iAjMDAw LYPqU3OlaCStDWkpG123ERm dHtU0YQYxolQzP2CqXGPcaG daWaG1i5B5Zh43PABZVFYhd zwvdGQ+ WSXwCAD5rAnzUSjvBIUqcC9 kEXSdZ9y5RvQqBcD5AXkyU5 FgTDWjdnfdQe03cT7zJjOxL yF6IWpu M3GddaN8NKAhpDXiECzeSQQ 3M91uk6E7PNYfUPHxYZK9mQ J1mK6qfVarbiozdCGqlEuhw mVydGlj LWdqCStuI353RROdjIlfOi0 TRUW9H2XqWaa7QIGebUaoEU 9dsIDbEFzoMp1ptDbuqRasC E8rRBEi veplRAVafT4uDGTsaWQteHi uQH6dHIQomueow456OvWbPC X7ZQHrwDFlY7NyoI8jXmSaY DAwMDAw G5OifGXhIOaqB270EFiwJxK 2HWTvgiPyM3RzDPSdpYejHx K9x1U9En9OHPxclTM+PC90c f19S2Bu EqluNle4UDOqLUN4zIX2cW9 aEWCvFYdjk7E5fTP0I0Asxw Mexf3zm1kuZFKzVGsdS88wb HPga7P1 DANemBU4MLJznDbpPeDmjR1 3Oyc+TZGzbDxdr5CbPokha4 hgy8qefUf2IaDcDVFalwKjz WduPSJ0 e3VpRx74O44oHDuqAABsLUR gTOLpCDScnZofbw4nwL4rBi 8+WJJesXQ9fQF8qJ6rXjDeD zS7ZCbx D242CaBpuDYaBphal0kyn4f bfQr3EiXxUYJglbDhxPbkLB Q6z2NdTu63I7WzmFeap9UxA ax5kc79 hCGsg6X1sAQ6B0GeMHJlips bpXSpiAdsGP3vTNUhrvdbSX DtlB4lKHPcZ4t3CjKmOuB5N TlbX0Nm huR8RPSmvYQrQCEydOJVvU0 mvnsgz8cykyppLdBqIFPuTW f7BYi2KBMivWzqIsJwXBI7I jA7DOY7 mNLzqY1ynNqbmmhohQ7tNfy +CNr1p9epxVMnUD1lxLB3OP 39WV28dUAcw7N2kVK8Q7KgU GRpbmct smdloYR6NMBcDWQghX20Zt5 lhSnvAj6zAZCjAOU0CLBhiQ ZhT3MbsH6gRfCiLHBmQIReY 3RleHQt XOrnE095DOydJvJ6EVEwyhG tO6DpIHZpyOzqHsT9s2Z7Yf 2NYC22HM88DO61yJYja1U8z ZA2S7Zw RSDyqoolgqpuiPF6UXGuXQH mgX22Iz7beNxgEi1hGNWqJU S6FSPfeKSfP9AmwH9uOhWnC DAwMDAw L4OmgBArJPuwU915AOpjFgW 3KPScebWwO0AmVDMplHpdFr Y4e1Z0Zg1NVb26SP12HE67d EFkt7L4 aZH9F9QsTLLbvlmhvvjsqAE 2FTXfAKUcdN36Gd5ccBoqNo 8oNIShQUU0RUPmzAUlP5Djm E0kCiOz HKThFCZzE1WsoEAzPWbiM17 8EWsdFcA7AOTioeFwM9YdLF MaxTuhWhT5c1X2Wk1TJSuue fs6T7Ct PjwvdHI+UV79VZOyPR85vTB izTBhx0ohgGa9LbOnWPGxYW A0iLhbESgie9OeSTNrM19zu BCoc1I8 IGN (more content not included)... Normal [facility] ED Clinical Summaryon 2023 ED Clinical Summary [facility] ? Urgent Care [address] [place] [address] Clinical Summary PERSON INFORMATION Name: SPIKE NIELSEN Age: 43 Years Sex: MALE : 1980 MRN: Acct#: Visit Reason: Sinus Pain/Congestion; Body aches; SINUS PRESSURE/DRIANAGE, BODY ACHES, ABD PAIN, CONGESTION Arrival: 09/14/2023 11:11:56 Discharge: 09/14/2023 11:45:00 LOS: 000 00:34 Check In: 09/14/2023 11:11:56 Checkout: 09/14/2023 11:45:00 Address: [address] [facility] [address] PCP: Mary Perla APRN PROVIDER INFORMATION Provider Role Assigned Unassigned Marika Oliva CONVENTION SERVICES MANAGER Nurse 09/14/2023 11:13:30 Brennen Ferro-C ED PA 09/14/2023 11:29:53 VITALS INFORMATION Vital Sign Triage Latest Temperature Tympanic Temperature Temporal Artery Pulse Rate O2 Sat 94 % 94 % Respiratory Rate Blood Pressure /72 mmHg /72 mmHg MEDICAL INFORMATION Medications Given: Allergy Information: Wellbutrin PHYSICIAN DOCUMENTATION DISCHARGE INFORMATION: Discharge Disposition: Home Discharge Location: Home PATIENT EDUCATION INFORMATION Instructions: Influenza, Adult, Ltbp-ye-Wrdn Follow-Up: With: Address: [facility]: Mary Gonzalez [address] [place] [address] [facility] (1) Within 5 to 7 days DIAGNOSIS: Influenza A Patient Understands: Yes - Patient/family/caregive r verbalizes understanding of instructions given Comment: Normal [facility] ED Patient Summaryon 024 ED Patient Summary [facility] ? Urgent Care [address] [place] [address] PATIENT DISCHARGE INSTRUCTIONS Patient Information Name: SPIKE NIELSEN Age: 43 Years Date of : 1980 Reason For Visit: Sinus Pain/Congestion; Body aches; SINUS PRESSURE/DRIANAGE, BODY ACHES, ABD PAIN, CONGESTION Arrival Time: 09/14/2023 11:11:56 Primary Care Physician: Mary Perla APRN Attending Physician: Cassidy Hummel PA-C Comment: Patient Education With: Address: When: Mary Gonzalez [address] [place] [address] [facility] (1) Within 5 to 7 [...] doctor may want you to: ? Take zzzr-ema-xekqnwu medicines. ? Drink plenty of fluids. The [...] Applesauce. ? Rice. ? Lean meats. ? [place]. ? Crackers. ? Do not eat or drink: ? Fluids that have a lot of sugar or caffeine. ? Alcohol. ? Spicy or fatty foods. General instructions ? Take xudl-oje-ulhxxgq and prescription medicines only as told by [...] use soap and water, use alcohol-based hand power bender operator. ? Keep all follow-up visits. How is [...] have mo (more content not included)... Normal [facility] POCT Rapid CoV-2 (COVID-19) Antigen/ Flu A&Bon 09-14-2023 Influenza A POCT Positive Abnormal Negative [facility] Comment on above: Performed By: #### 5 [id number] ####[facility] (DEFAULT)[address] [place] [address] Influenza B POCT Negative Normal Negative [facility] Comment on above: Performed By: #### 1 [id number] ####[facility] (DEFAULT)[address] [place] [address] SARS-CoV-2 (COVID-19) RNA IZABELLA+probe Ql (Unsp spec) Not detected Normal [facility] Comment on above: Performed By: #### 5 [id number] ####[facility] (DEFAULT)[address] [place] [address] Urgent Care Note- Provideron 09-14-2023 Urgent Care [...] 1-2 times per year Other Comment: POB: [place] - 02/26/2019 15:28 - Carmen Jama Substance [...] needed. Impression and Plan Diagnosis Influenza A ([id number] J10.1, Discharge, Medical) Plan Condition: Stable. Disposition: Discharged: Time 09/14/2023 11:52:00, to home. Prescriptions: Launch prescriptions Pharm (more content not included)... Normal [facility] Urgent Care [place] 024 Urgent Care Record [facility] ? Urgent Care [address] [place], [place] [id number] PATIENT DISCHARGE INSTRUCTIONS Patient Information Name: SPIKE NIELSEN Age: 43 Years Date of : 1980 Reason For Visit: Sinus Pain/Congestion; Body aches; SINUS PRESSURE/DRIANAGE, BODY ACHES, ABD PAIN, CONGESTION Arrival Time: 09/14/2023 11:11:56 Primary Care Physician: Carlos HARE, Mary Harris Attending Physician: Cassidy Hummel PA-C Comment: Visit Diagnosis: Diagnoses This Visit Body aches ([id number]) Influenza A (J10.1) Sinus Pain/Congestion ([id number]) If you received any narcotics, sedation, or [...] legal documents With: Address: When: Mary Gonzalez [address] [place], [place] [id number] Business (1) Within 5 to 7 days Medication Information: The exam and treatment you received today in the [facility] were for an urgent problem and are not intended as complete care. It is important for you to follow up with a doctor, nurse practitioner, or physician?s veterinary assistant technician for ongoing care. If your symptoms become [...] of medications post discharge. Please inform your carding doubler/provider of your visit and for further instruction on these medications. Any specific questions regarding your chronic medications and dosages should be discussed with your primary care physician(s) and/or pharmacist. New Medications [facility], [address] [place], [place] [id number], [phone] benzonatate (benzonatate 200 mg oral capsule) 1 [...] Body M (more content not included)... [facility] Coding Summaryon 08-24-2023 Coding Summary HTMLBase 64 IphctgnnDPd5rDi+PGhlYWQ +VM8ROITkT10wwJZhsI9sS4 NMTElOSywgQVBQTElOSyIgb kDpVM7zmIEgCGGi IC8+VX7nQXHbWkntzTPgn9W 1lVQ0R15zmr3pTOojzCS1HI KwTuVewyltl2tudLl0YLslN mluOyBt OAMweP94GTK1oG49Sh20sVH seMUwe5jvfXo0BtFgYHWhBJ S0mXcnQAluy3OsXKYnR27ql XKht7E6 DZXvbNxcaBJxKnKljPM4sB6 zVUguedtgd5dfnstrEym5yz 54mGAxa2D9pNG5T2JnafE5W GJvbGQg EqwrvOASyO9ebfswb4pyvki wXcPhIAFvAAu9MQg9VEKoaP onFhOqLK82UKM4HDXhgiKwV 2FsLWFs gKaxGaK4a9K9Ls9ND2GPQlr cB5VDFXCSGHgfuCO+PC90cj 39X9XqSnszHqu4UZVlUGA3x YJ5mF7f HNBiSLjke0G6uFG2P8UjdqU snk6om5naSBVbWYflE67dbD Rhq6K0WAYckFK0QGZpdMsgY iBzaG93 Oyc+JKRteKtql4RwDlfvn4q tl6tmnSc3HhaiJAPnolRrrK vcSAT0x8QzKf4kWZWsoPR3o LT4xP3q SfWuYmM4NNjpU660FpGgzPF xCgotY95gV5TokLJ+PHRyPj j7JYCkbUhcNO9gB5WqUJCjb mctbGVm nJoeAT1qLJKharyhTDMyyB5 iNACrW4u6ItFiVpA1GBkbV9 JfBJEosxzoCk89xR9uHcRaH cY5OUyw F6XrggB0YMGxmTIsMDpiUBI 1Q60ry2J3FIUeJNMqPVC9iK L6yX0fbKphpfwpuFHtySzch mVydGlj DPavAPqoE273WRKmaXhmMvJ vZGluZyBEYXRlOiAgMDMvMj AvMjAyNDwvdGQ+PMRdNAE4h WxlPSAn nLYzJFerSk3whZubhOdqOO9 bNWHkikwvEPSxhF0lMFWtpG YczYwoUZ9rQXIbvpdbo807O iAxMHB0 PNJheRMmA7AujR0pAhWeVGX jZZYbD2ZauNKpLUmeC414QP mbSlN1ZDFpsoWyK4YtMSSeh WduOiB0 x5J4Sh8Kc5SrtwpjQ9BtsII wIeJsNituHUj5B4AoRvoqoZ I+RJ88KAWdTP17ZXd1BOY7x WxlPSdi VHWqF7BmbD1eJgFqTARySVJ kOyc+PHRhYmxlIHdpZHRoPS jmETEiLgQzbGxrFQ9qEl0zM GVyLWNv xJeekKRyDgTgm8dzMCPuEGt wIX7vfEjwR5YstTU7IOHnz6 a5Ut98P29mP0GfsBB+PGNvb XB7uNN3 iP3tPlAzKgV7SUcjI468EtK mpNMqEnxdc9jtg7lbaDp7Uy B6MIYemeZktVjhCMO8s3BmA l94E69c IHdpZHRoPSIxNSUiIHZhbGl shk3doA2eGj2+KTSppOK0lF T8xP0dTlVtBsF8OCxoE091X nRvcCIv Cnvus2xrp6cckYj2JzBqFXP iukPswDsrYZL2f0AxWa34A6 RxkIetk2ZjWse1xn11nIAit 6C1mCL3 D4HbBKIyvrfjeGOrpRlmTY5 aSVFqrumqJVVtfX7lMQVjD5 l0KuUaEvO4LJexC7SoklX9V GJvbGQg RJIbiOUUrA0xkqyyj4nkjdm mRiGoQGNdFQe0DZn0LBBezC tqZdNpWYE7IdE0LXH1tWBvp O7xpMow fcchqK6zUud+WWO0dNRqvVS QBU9xWefdpJF+ZONhGSL5pZ jnRGeePEKetO9aBICsK3p0Q iAwLjA1 LNcaO2QwnhA5MAAsoOSoPTP olSUNrC4btfleg7paqbjbEm OeNHTmUYl2MDu8DSLknAjbD iBsZWZ0 PoI2OBQ8dXQepD6enBvrvvf oeB4qSqr+FrgloXqyVMU8ID c1J0IiFos8SRWajQmyJP5yg GFkZGlu Xi1iiAdecDzvTI5wMIQcrkw zp238LkShe7bwQYVloDHkOV rpNXZ0Q64wd7E5AFEwNLAzW WN9dYT8 rN0dsOnerfytsVLmaFbptkS ehJtiAEjbYJkqK462PDXqdA rrIvIuTDy1V1NmCcm9HAVfl TsxVE2t eHWgEPqpXp0yvVymyJywYI9 tTEMmjjnex596MtAhp0egET EjbIYnRCriGSM9Z34ch6Y7W CMwMDAw NXI2oCW7jB7uaVoosaaerBF mdDsgdmVydGljYWwtYWxpZ2 51TPRryHbrNxOkkLg7I2GoY fc3EMYz vMreWB7tlQWyHCmjXv5vuOf qgUzpJN7zBYOvkrsuk009Gl Ham1ooAZGzvYEdXZfhELQ6M 73zl1Y0 LNOkZRCcJBJ6fXM3iT6kcHa nbjogbGVmdDsgdmVydGljYW zzOCquD433ADTrgFhtGcMqo GllbnQg WNwnSLp7P0FqUektgMA+PC9 0EMBvQS88jYIecGLvo7ksxD q4JyZjQUBlXEH2vVnpYCyzb 3JkZXIt Z87bnKDeq8Q4VMTenZwihHL iBbKneUF2sD6yEZvhjsabr9 uzoeqdFuniu1kfdn22hG73U 29sIHdp ZHRoPSIzMCUiIHZhbGlnbj0 qpO9vQm8+NUFwuMQ4yBL5nA 9qUGRxXsO3FSysM278TaMjt CIvPjxj y4qgr1nbpLf6DnC4WWRzjjF chUptRVG9x6JbBl78M82pNB dpZHRoPSIyMCUiIHZhbGlnb o7eaQ9r Ii8+EPPwuOV0wZN3mO6dIcX sVgH8DYflS945RiAcxUBdCm jxD34iI9XqnEJ+SRRvWhu0W CBzdHls NA3lhVCmIMvxPl3zTAG0RbR fPeVnYTjjZ2UlRIWpbjsvfq dvgWU8KEQkBSUzcA92Mw6ux DogMTBw tBYFqH1ufogph6jrgvdhCeC kDFStIMy0MOf2IBUssYmjWh SzQDK6MdV7AIU8nAGimB4sv Glnbjog zM0xT1HzLXOrjstqLw30rG4 nTbTlWaJ5QAdmCxl+U0FNUy wgQUxFWEFOREVSIExFRTwvd GQ+PHRk KLR2qXgsYYgpYYQcfM5zXPO dA4u8VnQsZzG1IRrqC1UzNO EqcocuHs70iV5bQfOzVhY5H MumN0Vf oeI8BWSjqPZuTNkzDIE7I43 du6R3ASVkAXKtQZZ4cYE3dN 1hbGlnbjogbGVmdDsgdmVyd GljYWwt NChqW534BOMoqCyxTkEgZdH 0ThD7Ezv4C8KlUlc7CGZozA raGL9uhWErJVsuSt2fxCwrl SiaIZ5g KGOpdzenAIKelO8qDITleGZ gpLkpOD8jLEAymqidc139Rq KvRBW2YRMjaACaM8FiqS7nQ iAjMDAw BBLyE8KhfJCqPDijM852YBw rNcA5DQRponGzY0RrVHFsgP wmVgS0x8G7Ia74HJSRXPBwk zwvdGQ+ PQBqOGP9zTvwJDgiGXUjuR5 fZQNxH6n2OdQdHpK4XOjoT4 EkLYQkcrozLb02pV2yYfBfH nQ0EWbt L2FjmrK5KOBkoSXyVGwgUKP 3T41hb3G2HZBwEVAaINM4rB Y9bO7ikDkfsngmnYLbeVqzp mVydGlj APlxPKqjL640QAWbbTklJq4 XYPJ4V1FiTaj7EKFdnEkkKB 9yyEUgEZmvPp6qqThhwZgmL F1kUPZq lgwbGUYapE9yKRMzqREsoLl sBK9aILQtxmjkx416QpGfXJ R1YHPwtEChR6KagM0zDvZlW DAwMDAw K3AflQTyEYqpH802PAymBwZ 6YMObndYlF6UfAVUhaTapIe F0y5N1Fs8TFEbhoMP+PC90c x47X1Mc WsjbQbl2IDAmTDE8xKK6xV2 iZDArTLlkx6M6qTF1V6Mnkp Luuk8nc6gsIAIpBFhkK68ap HAol6J1 PBOebHT9FLWdcVloNiBzoY2 3Oyc+LZMusGlxy4KnZjysn7 esy0zgeCj9EpJfPVCeyxRwn WduPSJ0 z3HvWb66P00cMLreNJPfTPA gCTIzCLXttIgpcd3gxR0cEp 8+OOPftSQ5hIP1uL3mLxHsZ iP8QAzv L447QaGpbCTaJddxr5tsu6i ndBs1HfMoTTYcviVghAluKQ P7g4MuZf84V8IcoGfuc3AzO ah4oh17 yBUmh5E9aEF1V2IkORVqrvb ipVMfhAafSH8mMHUrllpiXP SclS9vMZOtM6d5VmRyEbA9B QmdZ9Yn jdL0NTRkgDPgNELzsOXDfR4 ajnuop5phsuolKdPhJTRkYQ e3DCm0KYNxsUkpEiUiPHX9J uL9OWU3 hVWxmM9pqXywzkvxaI4xUxw +DTq3a9ddpHYfOA3lfWX7NC 70ZA99rSPnl1Y0qQZ1J6WdH GRpbmct amjpePU2XTKdQZLwzN80Gu6 kqHghGp7xLJIyLBP8LEFjfE FuE7YrgU8vDlEaXADqBZXuI 3RleHQt NAytH230ZBbzRlL3EASdhrI pV2ExIQMxuBrhWvF3x8K2Yu 4QKH68VM36LS09aBTsl6W6h KQ6D1Wp SWPfokrwpfajtHX3PNFpNBH jnN73Bw7gzJbbWj7xBFLaMX R3KDGesJFeK6OmpT9mFxItH DAwMDAw Y7PtmAWmODdoS457LStsPyV 8OHIundGcW0OpXCKsrIqiOw F3k9H4Az7SId79IW12YF30w CKmt2A8 zPH9D9NvJHXzfroxlcgqnGN 9MYTwVJVbtH30Ie8jvZscLq 3xAJJsVAC9BYMwwLTuR2Mdz R3hEbFn POSmICTfJ9SdjOAtQQqjQ58 1TGqvAhC6WAWbyjLaK8BvAU WssNbbPjU3u1T6Ao9OKFfpr rt8U8Zm PjwvdHI+NO78BTOvGX04uSZ ihCSql2tumGg2VzZfHKWqKQ E1xIxyAXmut5YvZINwC16kv NQyk2A4 IGN (more content not included)... Normal [facility] Testosterone, Serum LCon Testosterone, Serum LC 404 ng/dL Invalid Interpretation Code [id number] [facility] Comment on above: Result Comment: Adul t male reference interval is based on a population of healthy nonobese males (BMI <30) between 19 and 39 years old. giovanni Madrigal.al. JCEM 2017,102;2835-3694. PMID: [id number]. Performed At: [address] [id number] Danish Sebastian PhD Ph:[id number] Performed By: #### 1 [id number] #### [facility] (DEFAULT) [address] [place] [address] Provider Orderson 08-18-2023 Provider Orders [id number] TGTIFF Normal [facility] Coding Summaryon 08-10-2023 Coding Summary HTMLBase 64 VifnswptALz4uBc+PGhlYWQ +KL2DTANkA95loZXoeJ4jS4 NMTElOSywgQVBQTElOSyIgb dSbBY4qwIYkYIYz IC8+GR4uWPEsSacnnDEwc7Z 4eBG7O07weo3cFSedoWD0IA YtTrGuxdvcl9tffSx7XMeuD mluOyBt SPYbfE37LQR3cS14Zd14cBV ryCSgl6ullUd0ZpNoFSFfWF P6eNepCBbbe6AlPAKkW83ku KMld2I9 ZVPjcHqtcCZoAnBwpYQ6lH8 xPOhbjweaj8ibtemaCgp7sy 35bGEbt4W8mEY0K5WeasR8I GJvbGQg DcabjHTAhQ6huaxcl0dcxgm sUoTiJXHiANb9NWz8AWUomF ehQvLkTD27IHX0VGBdnoIjI 2FsLWFs dXngLpR9z8N3Li5PH8ACUav gK9IGZLAMHSkhyQO+PC90cj 30E0HnGrxoNlb7OZFdEKN4y WC0lG3c XABvMAoyc9H0zFA3I4MpkpI gnj7lf4vzWKIcWNujY31xyO Rkf5V3WLBdtSQ9DAXmuXhqX iBzaG93 Oyc+HSOxtNuxi0WdEhaqa1z sv4fjiCs1MwvpMYUhpbDxlP ifIIC6o8NbKd6yVGFkpBI0t QM5tO7n UqGhJxF9KSmiX751CfUkoWT sKbspJ28uV9AwrEM+PHRyPj h6CLZewFcbQH1bK3UaNRFex mctbGVm lIhdZD6uLVRjudvoBQJykQ7 pNANnK9y9KnAbDoM0TMokS0 UxDNChddwcNc07fA1yEyWyV rE8EXzf Y6RclsX2ZEBjoWKxXVqaBMU 2B27xk8O5OSUtKHObCRQ4gZ Y1mO2bjYznxiipfPOhgXuzw mVydGlj ZXrxFFreO353NFZuvSaeJzK vZGluZyBEYXRlOiAgMDMvMD YvMjAyNDwvdGQ+OBBaDRF1t WxlPSAn tOAjMFstCc1wjStujFrgHZ6 vUQDotlitRYGopS6rCFKwyZ VmmDgqKY3fLBHdzlkih322R iAxMHB0 CSQdfNMuW2KviA3kTrExLGZ kMSLkF8JdwRNoSAjqE887MJ hjGnR0PXUdpsEvX6KnCLNls WduOiB0 b8U0Rz1Km8UjakooU4EnaMI qVpTiEeusOHn3H4VcUrvisX I+XT73UCIgRC98VTe2VQO5o WxlPSdi NOQvZ5ErqZ7zFnNlFDHuVGI kOyc+PHRhYmxlIHdpZHRoPS fvTSBqMeKcdFjuBR7tIy6aZ GVyLWNv vRerwATpUzVrp1qqNHVsRZu gTP1unXsnY8WxmTD6IZJpv5 x3Mg13P63mK5WxiRV+PGNvb XJ4hYX3 uO6xScUmIdE6OSuuR873MwL blGSiSciva9drr2tveAz9Ev H5WTFecnAteJdfLUL9l4XiA k46F03g IHdpZHRoPSIxNSUiIHZhbGl ypk4pcG9sAt3+ERQhoKF5cS Q9rK3eBxElBzA5FOpaJ312V nRvcCIv Keyid8nkp3fluQh1XrFlRPE wuvIjeDdoORQ2w9QzKu92M8 ShmGpee6GcLpk8nq79xBHhq 1F9hYV2 Q6RaAQXltxafdQWhtPhfVK4 hEBHpbwykOBYjlT7aOANeM7 l7CgUuHgF8NZglF0WwyiO2W GJvbGQg TNSrkJPFcJ5eemvwf0ahwkl tDqQkTDLoQNz2PGa7UKDmqZ nhYqRzZXP3OmI6RMT0oWIuv R8mzCvi ilcjdO0jEzz+OZB5qMBdtEF TIP7rEyvpxKG+YNZrXTM5uM nwSXxtSHLqtE3xFSTdR7w3N iAwLjA1 HVqeT5PneqN1SVKhxGIuOHV zzQJPpH8jrkwqr4kqzbmmTn KdIAZsAHp3GAu4MURttRhaW iBsZWZ0 YcN0XFX8aSYrlE3yeIpxejg qhT5rSmn+RxhexJjxFFN4MS g9T8QpBaz1LDEyzGxgMP3wc GFkZGlu Zq2vlYubyQirEK9lBIToyzq ja667PcVpp7gcSKXxxGZrOB imCXO4D22br3N5SLZyUHNlL WI4tFZ9 iP9vkIicinocmEEnlYmiwhF ksAccTZfdYQqxY425EVKmuN izPvSaUEy5Z2PhOoa2GQZei MotDJ7t uJMrWXvgIs7acRvvqRvmOE9 sLDUzeaecq336StTsw8laPN OwuXZrNDqdUJX9G48wi4D1I CMwMDAw RBX5lFO3tO9nyDegmsolrZN mdDsgdmVydGljYWwtYWxpZ2 32NFRceIofSzKnaWp9Y1UiK jr0CQBv aGwmSZ0veGZqLBnxRf5weIn csQmzRZ0bJHIzswfdd466Tz Uij3bmSEIhwJZtBNotPCM9G 25an3R1 NIZyJESeEPH3pXQ5lS6usUp nbjogbGVmdDsgdmVydGljYW rgZHfcK330FOCjvFbbGgMji GllbnQg CPhwCFy1Y3VeXgaizYV+PC9 7LNTuHM34iVOuxLErj1bklY e2RnYePJSdNTE1xWidNXskv 3JkZXIt W72qsIBfn8K4PPPkkDhkuZC hUyRrvXP0yF9yIDztdcton6 takcebTnujk7ebwa89cG29E 29sIHdp ZHRoPSIzMCUiIHZhbGlnbj0 zkP1eVv9+RRFbyDC9gQS4sK 8oJZEjXiU7JJurA842KkIty CIvPjxj x5rjp1doaFv3BjA6RYEzcfB fnDieAZE8p8CtEf53N48wWM dpZHRoPSIyMCUiIHZhbGlnb r8bbO5r Ii8+JJCifJN6sAC8dF1xUgZ bOvC8DPqvD180AwTxfSYjRs mzC36jD8MwpYR+EEXqPje5B CBzdHls TL8qeEPfODimBq9sZJD8DsZ zIwOsXNorK6PkLSAbrnkxsh qacTW3LSZqXWBqtR98Ol2ye DogMTBw nEUXeT5yznhua3jqmbrlEdA uFFYaKWa5EFi4UXBgzTiuHh NwJYY5KaT5SEL8jKWfjO6ca Glnbjog zD1pO1JzQEJtqpuwBn30yN1 mQxKfQyY6AAqpEzs+U0FNUy wgQUxFWEFOREVSIExFRTwvd GQ+PHRk NOC9fKwqNTkeLMHobZ4eUKJ dL6y5PuGrAvK5WFlcL3NbMB AwmndpAb24rX6xMtXbUjH2R NpgP9Ih twQ7BKQhuFDvTBtcVSF9N72 by1G8WPVyGJNtUOT8uPC0lT 1hbGlnbjogbGVmdDsgdmVyd GljYWwt QWurY073YDShmXvaEjOzOzG 2UbK8Ixv5G2UxHot5XRVwjS qcXL0zuIKbWCruOb3mhKtnt UwjSV5r RLWmqwsqYKAsnJ4pAAGjhHG ebVywUJ2jESMfvmzkk008Ac OrPFL7JBNhrLUjE1XqnL8wK iAjMDAw OMWuR7VvuUPqPUkfR822YPt jJuF9SKMuuuRpA2IkTUUcdI hlGiW6y7Z3Ke68TGXEWQLxf zwvdGQ+ XVVlFCJ5dQhhTGlqWMNirD4 vVBJzI7n9RzScTzY9WQpoA7 VoBPSgtlbvBc13mE8yTmFoA uC3IHhr Y1PebqS2HADqeMWlNAscHIM 3V09hs2V3ZWFdLXRdRUB7fQ R6hX8zuPquaadszBEflPylj mVydGlj RTatUPvuC897UOTuiScsKy0 HXVA1Y2VfMsa8LHZfyHghTA 9jsAQxXTteAe1vsUbjyBplH R8zRMCv eridCCWzrC2tGILtdNGcaDn pAF7oELEfaqukt518HpNmVC P0IVNiwSToW4IbbJ9nDwCpU DAwMDAw W8OxjSNxXNetY777ETtwCsH 5MBAciqAhG7EtSNFjqSvwJk Z4p6D0Pe4HWGxzbSN+PC90c v28P6Lu NemoMfg8XMXrGQO5wOI6bH7 wXNEnLQxjx7X0hYX0Y0Eqzf Xemm3aw0tdXEUmNHdjD43su VPcr3J5 ZFZdaDO2KGLtoFjwCvDllA1 3Oyc+TVFrzWkec1XhOkqnb0 vsb5rdqPf5RdYcAWFxjbUtg WduPSJ0 x1KxPy34U30nNOjnJHKwOOK dKXVtEFTfkEfqjt5zhR9mWl 8+LMKxtZR2aLR2wL7yVbIaT fL3PYwg V476QuDpmGZkIexbz5gze8b haVu9FuMjVFAivgUydLewYK C6u6UaIv63O3JkqAnhe1MbG ls3tu77 iCBkq2X2nGU2I6PbEDYmkby mcQAeaVfwVU8sZRJgdrjqTM FafK0wCFWeQ7u8ZkCjXhV1K WqiL6Ey hxY8ZYPkiZQoZXVhlOTPuM9 apaila4srgkbpXiJqOBVeJW e4XJh9SLKlgJpnDpJyURW0L mI7PJB6 wLDigR9kkWtnnikndF4xEwk +ELj5y4qvlSEgXA3stFZ0NC 13II67zLLhg9C8tDD8R8GwW GRpbmct pkdlqEV6PDYhVYBinK04Ww8 apWqjXl4nDWRkZUN8MZWcbC KvL9VyyU3dIwRzVDPbSVBuS 3RleHQt KCapH361IJgzDmY7IONwdjM lF6CtXBUckNtnBxW8c8P0Or 5EPI29HP71BL23uCXbm7A6v FI8H1Jg IOGnzjdketkklVF9RXXzYTP eoW36Wp6edNiwAk2dUAAcGX H1MDTtrSNlM0RenR4yAmWqZ DAwMDAw R7EqlAMzEPkdA919LImuNvL 2LEMvvcSxD1ZnTUBqeIxqAk R7m7C8Ny6WPw99CY21HX97u MRcd9W1 hBX4I3FmYBTalqnkoywfcFZ 1XFWaAYAjsP01Pb7ljSrnTo 3qIBZiAWO7BNTuyALrJ1Dta I7iBwSc LBGaWRNmU3MtaBMdWHjoJ22 4TNggNqO2WTHhopWiU6WdQJ OpbKzsGmL7d5R2Cl3JMZcfd vr3C8Lj PjwvdHI+PZ57GDPvTY77uIT ikZEkd4gkkJe6VjJkKJNbVL Z3xEjjRKbod6OwYOJhF82bn LEiy4C2 IGN (more content not included)... [facility] Coding Summary HTMLBase 64 VeeginbkVDd2tFv+PGhlYWQ +MB6AGHRxG27uaQYuyA0bJ1 NMTElOSywgQVBQTElOSyIgb bOrJI8fyGFkRQAa IC8+YQ1eBZVjMjlhiADjb0N 5dNW7M78jab7fZStxlKY4HF XsNiBumrwmc7vegNn2JCqfI mluOyBt VWNmqX99SZL4pR81Ah52gFQ nmEYyy9ghsFv4EoBlVXXcML N0dPpvAZskp5MpZCFvK21do BFhs1E9 AUHdrSitbMKvGlKasEC9fE0 iBCyphgdnq9hxnuawFib4zs 79xPJdb9K0bZS7M6XflpM0R GJvbGQg ObxlnRPCvT8cwlbqb0fvirx tYlOnPNYgXBc6EJh6VUEsfM dsVeIpRB84TKX0WAZlynNnL 2FsLWFs cCscLnX5n6G4Ay3OX5ADZcm eI1TUTZXUNUpsyDF+PC90cj 81V3AfRalnZlh3BDMsQCF4k EY0bX4y FWMhKIiah5L7bKZ0A2DihrK kpr2aa5ikBIIiTCpuW37psN Kod4K9LTWfdRL3MPEqoBypF iBzaG93 Oyc+IFGqrOazd1ObGexyh5c nn4shlPp1MqptXOBckdFkuU ggSDQ0h9WdQh0iZNZvqPG1l YF4pY1u FxZiMbE6FUutU844MnNlhIK eYxvmN38vR8RqrRS+PHRyPj h0ZEBseHdbLF0xV9XjLKPhv mctbGVm bLerGW6uBWDrjrovKEUlhE6 iOMMyG0k1VaZaArU1ZLqnI4 SnFEWjqyjxQs44dJ8cNiHkC gJ6PWxk L0JfauT2VAAfmZBvTUnfGQC 2E43jc8H7VWLdQKCoMSD2kB O2rJ7wgWtiuimtpCXwwGbnd mVydGlj YPakJAkeH327NNHknMppPbH vZGluZyBEYXRlOiAgMDMvMD YvMjAyNDwvdGQ+GJIrGMQ9u WxlPSAn fAOlIUhjHa2ykSvfjPwbPE5 qUANsdmqdXJZalT8jTUPgrJ WvfLtsQQ6lUKOvrvypb436H iAxMHB0 KAFbxPVtQ6DcqB8eQvMfTMN gQYJdU0NbfGUhTJjtT797BO ddZiK2RVErhuYcM6UcGGFin WduOiB0 h1V6Gu9Pp0GiyiugA7TcbEU dDhOaAdfbQSn3H1DnHhqjmD I+YX26AJZvXC79KXw1EDQ4w WxlPSdi XOJuL7SkeY0wDwZxPOUlTIH kOyc+PHRhYmxlIHdpZHRoPS arWHVsJxCyoOpdBO0wEq2eS GVyLWNv fYpacKThUaFfg9soNDElRMx mMK0ztPahL0DiiKH3UKPkr8 p4Tn24I78cQ9IfoZP+PGNvb VB7yUL1 bG0uVxYlKeQ6VOrlJ821LgA hkREySnccm7vjy8reaDo6Yo M1RVSdocMutXvnQSO3y2AjD w61X88x IHdpZHRoPSIxNSUiIHZhbGl xvw7wjH7wJv0+BYAjhJH8tL E1pW4aJsVdWaR6LSedV667W nRvcCIv Zbfdc8wsw1khgMc7GcWiQNU yzpAxsDzmVYZ5o3TwDa82B0 IpvNqsx2WqEsi0yo07nXQdv 7A2rZQ6 A9VwTBMzpjzkgIQidNyjCV6 iNKJmnehwYDFzhI6rEABlX2 d6RfUnDkR5VGheB8QkiqH7K GJvbGQg TXBfuRJRsW6fiwxfu2tsvuv tNmGuZFShUSo0SCe5ZVLhfC anOwCcQTN3ThP8MRK3wGJcr B6ozTpq cuwczJ4wXap+CVJ4vNGvbZM MHI6fHmznfUR+AGLyQXY8aT joYGluYNNjnQ8xFNErL6r4C iAwLjA1 RVyfE8MealX4UBJytAHhFNS oqTPXgZ9nrbvee9qmhydpLp UoMLTzJFh6CQd6CLOrjFhuY iBsZWZ0 SiK1LIP4xWDtaJ4ctZwjevd jkR9rQfb+YoiamEbwNOD3TZ p8X1FfVij0NLObmDamZC3zy GFkZGlu Rq2czHawwXawSW8uMLLhcjd gi621JcVeb4bmFNFwcEEaDF hbWKO5M26wx0B5SERpSGFgM NX1jMJ1 eG0rwZofdjezmGVclVgxpjI qkRewILvzGJmbF856NWKtxU btMjCvFIw0D4PtByn0UPQyy JalMW5f sQZvZFfdYh8dsNfluUycHP9 oOBEzixpak391KxLra2voTC ZftCIbESlnGWF4B30si1G7P CMwMDAw JZJ6hEU9aY3nkDgfwzwgqYJ mdDsgdmVydGljYWwtYWxpZ2 57JFCuaNeyMeXyoCy3L4DsL fg5GXYd aQbzCB0zbKUnJNvuTu2qfCf liOfrSQ9lPAYdwdzfw419Dm Jvf2cqEAHfbQCnRBduYAI9C 11st7E8 VHHgZIYoVIW7lVS7jM6vqHa nbjogbGVmdDsgdmVydGljYW cuPImdR858RQVvpKarPcRpi GllbnQg XMrmWIb7E4OeJfdwyAC+PC9 2GSVzVB29pZRocSUsk3jvcQ u0ZxSrWPGhCGS9dVxmALzrl 3JkZXIt P61hdFIub4C7CIMgvCotmDB dEpRtnHA9hY5sZYzzfjrfv6 yrkcklNpmdn8oocs14fY29L 29sIHdp ZHRoPSIzMCUiIHZhbGlnbj0 wyC1dUa9+ZZJmrFX2pOC8wK 3kWSJiSuQ9QGjcB129CtAyb CIvPjxj q2sbr8kruMp1AtT1JDXjfgW vzJajMYG9x3XyVa72U10iWL dpZHRoPSIyMCUiIHZhbGlnb k3hgX6r Ii8+IUBprWK7mYV2iS1xCfD sEkK5RZdlZ808NaQujRRgFn bkD58sE3FbxKQ+KNVxVky9S CBzdHls ZN9oiLYiIDgrZd5xSKI9GkP kEqUqAHuwA2HnWCLsvffcyh nzmXB4EVVjUIMicO40Fq5pp DogMTBw xFJOyH3cnvznz3yrmppkQjA cYQYcEYy7KFd3SBLndWfgZd XhLXS4UpN4HPH2vQXvoF6hj Glnbjog rK0fT8NvSIXsijezZs65gE4 iWaCvAjF2AMkrExf+U0FNUy wgQUxFWEFOREVSIExFRTwvd GQ+PHRk HFD8rRhpAXmlQHDwlF7lUTX uW8i6UkDiPmX8LKoyP4ZdDU QxqtmqRs14zK8lDeSoCqD1M DewS0Ka ylR4SIElfYBjKVipXGP1D37 ia9H9JIVzEOPwBOY9iKJ2kG 1hbGlnbjogbGVmdDsgdmVyd GljYWwt HUwdC556GECebUsfXeFnVhU 2FqU2Fse0W2PoZrs0VJKgtX mhHR8nqEIkROohCu0okGxsx CohSG7h LWSbyvveKPLebX9jZUGwuLI ptNnmQM5aYYLyzfvqj609Yl AgQKH9SKVrpHCqD3TukZ9xO iAjMDAw LPUuO6BqrGRkOXtwJ496QYp dFyF0OIOlkwEsT2WmLWUosJ owXgY4q7I6Vm71HPYHSKQli zwvdGQ+ KGVmQFA7aEbtCNdaFAMtyW0 zMORlE6c2HuLpCpS7STtuE4 RpOGTrodvoVe73vQ5pSeFoS hF4UHpa W5LfnjD3BUBlqDYoGYdrYLK 1J02do8Q5KFEyLBRjHGU9nS V1cB8gkBklvrcnqGUcrYqmj mVydGlj SVcvXLxxG852CFHsmYarYj2 CKSZ1C1FyNhu1PBRtaBoqMB 2loRAmPTaaRr1hqUjfkUweT N0mKXNz wryjNRHjeN4rECIogFDztXz fPO9rPFBwaicbw588PvSiCT V5XSSwbWBpK6LcmY8sNgXyN DAwMDAw Z5ZtqNJsMDazD421KXhqPhX 8TIKfevWtY8YcZVVooWhiFu N1o8S9Hx4VBDxcxMX+PC90c f92X8Ab EqhiBlv3WQSiMCH7cVX5oJ5 mAMEvQRljo3C5eVQ5P3Sgqy Chsr6jt0krXZPwKIfrK09dd DSnw2Q9 EOIstIB0ANKydOpxNmVhvD0 3Oyc+AQHraUkgu9WoNymxf1 wah7uyeOv4DhGwCPXiytYtu WduPSJ0 l6CkLu48P54fIQeyPMJmWOW bELTeJSBezYlsrq0fgE0oGs 8+AWIvfBA8zEH3nI8dTdRjF nL7NHxk A012IuOkkLSwViuak4kpf2e gjNj5ZbOvCQZfvcBfbDmjXF F4u7CqEb12K5LzoXoux0JmS kf3ks75 yQXcx7B2mEE8U0LwFMSupjz asSDcyAnvLA5qPNRxanbeIB BunB5qNNSnY4p5FiEmGpO8C ZrrR8Tr dnV7DJLecNXpAKBahBITuT6 hxajdt4vjbtggUtRzUPVnQF i8RGc7RRKukOrfSsLpEIW9I aV0HLP0 mPZleH2kwRqbmjoiiL2aDqm +FOk5p9foyCUlWI2acDI3SA 51OS86rUVye2G6kHL4Z7NgO GRpbmct qbovmCS1CYGjRLQdzC83Fw7 ldBajEn2iASZcPXM3NJAqbA JzG0ZovT9yKmDoDILbOXQnV 3RleHQt IAjiF606AKuqRgX1XZOivwV eT6LjILRsiLodAfV9f2N6Bm 0HMU00HE94PW01aNYdt8Y4k XY3I1Am XEGqtfnxuzwhjBD1XXFpAZJ abM44Ah3vgKhmIx1pUUTkRE N5IPAgsTNfP4PogC4lEbWgN DAwMDAw Q8DbqEAhPTfbR892VBkfAzK 8DUYtwfUqC0AkLEWodEuhUh Q6y5S9Fe4SIu41ID74CP70w ILgw0V9 vDX4J3AdGUJnaqzwzagpgYN 7VUGlZWZrkW67Ay9nuSkqYg 0bUQEoWMH9CMEtnWEeR1Tmu A9lLmPw XQUwDHMtN6VltRWoVHqhW37 3OFajOjV6TSOljtPxB9TxTU LdnYpyFqH6j0T3Vw4TNGzyb lm3Q7Jx PjwvdHI+RW41MITfLK31dBH yfFZbq2yxtAh6SjKoLITgPX K1cLsgXKriz2DsZYUnP77iw YOep5C2 IGN (more content not included)... [facility] Coding Summaryon 08-02-2023 Coding Summary HTMLBase 64 PwndsrlrTZv4pMj+PGhlYWQ +ZM6GJUHpK12ezJKilK3sY3 NMTElOSywgQVBQTElOSyIgb zEpBH5hhHIxBBQc IC8+CG8pILMzCfjhqRKcq9P 5yFY0D06ngd0xZAvtzBG0YN WgHwQulkldq2gyvUu2LHzbO mluOyBt RNUlqZ87TEC8iM99Pj47hUI vbDWft8esbSp7EnPeALYbMA Y8aQizFFnnv6MxFVZoK66zi KHpg2W0 BLUmtPcwaHTaZwFrcIY3pB7 iPRamwvuwg7secbcjBhp8rg 20sEZne2Y3gIE0T2WdvgP0X GJvbGQg SwajgIIKkC8axxlod7kutdg lUeRwDNUuULj0OSa7VNDljF jvJxQoWJ16GVT6JEUcbgJlO 2FsLWFs dVapPcV0n6Y5Ag6YW1XDJrw hB1NXGTULIIcemPN+PC90cj 54N5MkZbzyGwp6FPYlUCI5a XC9hV4u NTVrEVcjm7F5fUP3L4JwepH icp4ag8duRRYpWMdkL10rxO Bqw7S9MKLfpFQ4APEheLwhH iBzaG93 Oyc+QKSvwXjya4OhOhjmu6r lw9anlNe7AaeuSEGygfWduD ciGOX7q1RwRl1dPGEofIF1u SO0cX7q KtEzDeI5HSfdV974HvHfrEL zLvidR13iK5EkhMH+PHRyPj f4RYAkzLrgMO3uB0CsNROjs mctbGVm dJgnXK7mRAHitpafHMEgeR2 rKXGrE7v1IbAcVwX6KWbuP3 QoYRDtruvqWw54lT2bPxPhL xX3RZzs H7BesaJ2ZXYlpNFpKJshSSH 6Z45ts0O8MZFwJLLkMBH1hI V4dP9liTosuctfeJEhcGjpy mVydGlj VXkhLBrrE387CQWztMdbUaT vZGluZyBEYXRlOiAgMDIvMj cvMjAyNDwvdGQ+UPTxSBK8y WxlPSAn sSTvRDrmWm2wrYixxFjzMD3 yFWRpoejyOFCyxA9xCOLcxA AmnPumQT6fLPRqwcrcr811E iAxMHB0 BEEsbFXpG5QszW2tWcOpKUZ iSGYuP3VnoTIvJQzeM314OI ksYtE0GQTwbwDvK2KbEZMoq WduOiB0 u3E6Ia0Io8YhyaxzY6KmcYP eXkByVuvkACj8J2DhBnmteM I+EF80AKToWL11QPd5WQX7r WxlPSdi MIXuL0YyxJ7dFnHnJREvGRH kOyc+PHRhYmxlIHdpZHRoPS gqUHZjZfGqeSyxVD3oZi5hO GVyLWNv bTgzmZOlAjCbr2uoJTYeUEp zEG0bcCobE2XbzAV8TCGae7 q2Ck35T15iY4XqhPV+PGNvb PH2bHW1 nY8jUkGjPpV5YSmqP611VcV goEMzCijuo8ywz9juzOt4Zv E6DBVwcxPvjQdwKFT5o9HbY r03Z40h IHdpZHRoPSIxNSUiIHZhbGl ase8cfG7pJc6+HKNisPN6pN M0vV1hGxPiYbR6DUcwM640H nRvcCIv Aurhl7yrf9tslPf9OvNnPNO zfyOfgZxxZKZ0h3KsSo64G7 DrrWdea1FtNcl7ri87nEEww 4B7fCB7 F4UxNBFtzxjwyMRraOmvWA9 iLXCyqeipGZGywU8zIALgG0 f3MmGlXoL9SYxdL1XdepG5G GJvbGQg JHXpnPMDrR3wavbul0iwtkc fZaToNGGfTDa9WLo7GRNkiP mrIcUsXKQ3YaS7FKV1yNCft O5zlDoj ywsokC1qJpo+TOB8wUOenNY WEL9mCaauoLD+RGFoESQ9kD dmXRctSLZlcN8jGAHjM1q7F iAwLjA1 VMrpF7PratV6CJRisYCuGWH wkDYMgQ7txkbwl3avczinPp FsBSIiUQd8SOi0RFFnsFcjQ iBsZWZ0 ZfN6ROG6jEHznF0whMucqec rsY1nCiu+GuqefFicHRE3HO l0L2ZnLdt8SWMpkXzkZR3fg GFkZGlu Bg8trHpnxPtcVG4rCXDpajw hm836HiNay0xiSBZxyNLqTD mtZHF6X30ba3W9ATQpIFSgW KZ5mAN5 nY3zpXckrgtrqQPdwDwatfN ksOlmLColLWilT017PHMobC udPaQxHEm3J5HxVhb1KVEdc KhyQQ2l nNYtGPjuTw4uxLwvgYdeLR1 eSBBiqzoox191RaYmr8izIE UdpRExRSueWBO6R53bg4H9K CMwMDAw SGF3aZT1cQ2lrOsivzetfEO mdDsgdmVydGljYWwtYWxpZ2 50KJAwoUcuXeRqyLb4E7GtL nx9HREk pUiwVF2rxMBoPAutPw2opNi ktBacLF4zCHJcbckna422El Zif3lzORTjrNIvWJvuIVO2Z 40pp1S6 DYXdZGFwKWM8yUS0eH5ktWm nbjogbGVmdDsgdmVydGljYW inNDzsU661VXBrrDhyYrIsq GllbnQg TAxrBCy2Y7CmFhbglTZ+PC9 5ZXMaMD37tHNwrGJot2yyxV b2NdOjDVDdRVJ5vOxxZQlou 3JkZXIt Q12tySZay5E4LFJndWtgpRQ bOzXgjKL4rZ2aXCzhrobrj6 aynjlkIymwz1ipqv56fJ21S 29sIHdp ZHRoPSIzMCUiIHZhbGlnbj0 klN1oBj0+PGVjkWT1gKQ1eJ 7xJTLtRdB9RXshO128VwOdn CIvPjxj a5cjm0yrdMh7OvI1NNCmmyT qyGmkTLN8e3YuQo32T58yNU dpZHRoPSIyMCUiIHZhbGlnb l8fyR2s Ii8+UXEkpYQ5yUZ0iD7nQyE jTtO8UOtzP404InQaaPOsOx ybJ10jB6HjhZN+HPFwRxi4X CBzdHls SQ7dyQHuYIzhWo3aNKK0NiL yZpMeEAbeG7JhRFLqogybyw caxCE1GRDzCCUkdL85Du9uc DogMTBw fHBKjA2aqfrca1shgmtnQgT lODEpNOn8NOc4ECXrrBejTt RuXMU2SmR5ELP1gNHfhT5hf Glnbjog iH8iO2UdYAGzhzhkCh39fG0 sEpCzRsJ6FQuhLba+U0FNUy wgQUxFWEFOREVSIExFRTwvd GQ+PHRk IJV1sUuwCAbdPQTzvO4bNCJ uJ3d2JbKmGhQ3NQfkH8LaXN UokhmtKk77qL8pAhNqDaQ4A EoaV8Mq rlF2KLWicSArYUtlZKX3G87 dr4R7PITmOXJrIAK1iLO4qB 1hbGlnbjogbGVmdDsgdmVyd GljYWwt NAzzV028ESSeqZlwTiKjXvI 5JaJ2Djz7K7HhIip2ESNwtO egXM1qwXMrEEvhKv9koIfaa NlqSO3q UQRjglzvYPHvmG8jOKCorDR hgOrkNP3wMPAkyfbqp019Rh GbDGS6MWMkzGLlU5VdjX1wR iAjMDAw SKVyE9FtzREeANeaP864OIz vEaO8MDUjjlExE7UhDTPyiW qiLtV7l3P3Iv27NBTOERMuh zwvdGQ+ QHRpLQM5kWjmVAomMESomC7 pNQFjV8r3HyNoQpH5GZynT1 BsSACmshnhVy21vO5wRyQmM sF4RVnl G7DvalV7LYNbsZEmKIlmMMC 6J70qp1W7BAOdJOFfOMQ9qZ U3yU3vpAtqqrkzzUActEcve mVydGlj ZXliJEdtW683CBLqyNglCb7 LTSD7Q9UzXrb7XQSjcAdqEN 7vsHOaYDtvTi2dlOywsQslZ M3fONXu mgtdRKFrpL0aYUSfcFDstDd gRN0zKPKvedhiv727UfVxBN W2SPHtfFXvM9ZfzH0sByCcT DAwMDAw N7DknEPtSQpiA253GEzzYuM 5XIUkzqVwF1NsOQCuaMuxMr Z7c9A3Fu2DNLsahAV+PC90c d38V6Qq TvjqXhs1RCUeUYA4cMJ1wM2 aWVWlHDdvr2D4wLG7W2Upxb Gudj5yq8rsGAApDZlzO99aa OFdd5J9 BQNdrPC3PNMjuNfiXcHcqX4 3Oyc+YRXbuZcep4IuIojhb3 lhp2zgzWf4KrRuKLOxlsOel WduPSJ0 n4IbUk62L17jSEjnKVIaBHM oLZXqIDEeiHszmz2rwC9iEf 8+IZHmjBH8kCH4nU8xRiWnI nC1FRkq P320JwIzySNnQgwgn0uru2n abCw0NgTqIYXtfjPeqBbkAA K1x0SiXx11Z1PinUeud0KcR ru1xy11 bAOqn1Y6rCW8T2JoRAKrkkm ycOCowTkyPB4yPAJveinvLZ DfvB5iERLbW0p8BoHnUrJ3B TicU6Lg wlI0PTLghRYuSVRtxNSAhY6 xrrvga2yvxbpoKlBmSGQgJV f5EUn8KEWofOrmNmKcYXQ6J pP2UVD9 nSCfxK0nfLifrmcrlQ1vNbp +FTe2q4eueYTxID7biDK2UC 31ME08sBOgx4Q0rSK6W8BxO GRpbmct rtmwsJN7AIHrBJQdqX95Sy1 hnDrrWk9kLVGiMPM3TFYgbZ HlQ1UdsJ1rZrZmQUAgFDEfB 3RleHQt QYblV363ZTjgDfQ2PIWvdfZ wK9FvWYBreMgyFqB5u6F6Wj 7IVW30RH93UZ39rOEoj5U3p AK6S8Hb PVMmuhskgnassLA2SUMcZNZ cqA97Lo7dyGtqAi2mBQOoLC O5OGZmvFAzY1ZymV4tMrTgR DAwMDAw C3GepEWyZBabA414VCdtOfV 8DCPkwfZcE7YrXPPbrJefEn X2g9P6Xz1OVu90GK85NX16y ZAsn7A6 oFC7T5ZwVXOpmexafsddvEO 0MSEzDMJtiN42Zy1amYpbBa 3vEJVyLWU0LILamWDmM8Asd X8cMvBk GOTtNVQpK5XjwVAeTDtgQ32 0WWzfExU5PHRaszEdB4VeGB AftWwhDhY2m3E4Bd0ERHqwr wf8A0Fm PjwvdHI+KT28IJLzHZ70tDO xeLKom7tdgSs3MfMpFUEuFU N7wZmgCPppe7XnUZVmW83pv NWfr2N0 IGN (more content not included)... [facility] Coding Summary HTMLBase 64 MustcrzeVOt3xPw+PGhlYWQ +OM7ELFErB41ydEGjmL8tX3 NMTElOSywgQVBQTElOSyIgb oLvRB7ejTNtGSZe IC8+TY6nHHBgKbmyyNNui2J 6bSY0A54msc5nPZiwyXV3BR GiRcTixpgjo3skrVy9JTpdT mluOyBt OYIibB36ITM3lH98Xc76hVT nwBGzi6uxcXr9LhKaWHIwKX O1bMkjEOxws5FuTWSqO23xp MAfw0M3 ZFZnoLhogDNjLjCprNJ9kJ9 lLFbrxukvy0gnyitqOfo4fi 71kZFyj1E0tWW2F3VvruD0Z GJvbGQg VvttzHZFuN1mscspx1kadau tVfRkEHUhROj0OEf0MPNcvQ ajRvInHT05UBM0FKKbjzNzR 2FsLWFs oQaiLsD8y1J2Us6VO6LESax dA3DNSALJNBzkaPX+PC90cj 78R5AeImgjMco6LUSiEXT9p HI9fO3t HYXiMVqro7Y1mFR2Y4RbssX veb9hq5slDKSxZRaqN69wsW Cfu5Z1KZCkdPV4PJHlaLadE iBzaG93 Oyc+GBOqiLjzh1TmFnawa9b jw2eedGp7PmppPVMetwPwfS pgXUL9l1FsTo8eNFVyzHR3r RE6pU0h JwLzZwH3NYhlP854TvCcpTM fTsbwX82jX7MbdKW+PHRyPj u6KYQizAlrJJ8eY5AcBUHls mctbGVm vSipMK4aYFGgrwxnHOUtxY3 qBRZtK5k7BdEjFiY4AMbwG6 ZtNWGebteiWh91tH8dFrQbU nU4YJkq W7WefcT9AYQulYAiIDyoJVR 5I95xt7S0GWGgQUQjWBX8cJ S0hU0liXomhouxaTXjkBnsh mVydGlj KYmrVSjtX900JSRhyRmyQoR vZGluZyBEYXRlOiAgMDIvMj cvMjAyNDwvdGQ+BFHsBEC4y WxlPSAn lQBcSYflAv2ezZsogWrqFA6 gXIVmjdoaZJQxfA3jPPJumZ LvfYynJB0gCMIgrshlu777P iAxMHB0 UWMpeGUbG4CvlC2tRaWjRPZ aLJXmU9FbjFXnZGemF734YB bbZaO6GEEhqzDkP2FiWJLik WduOiB0 n0I2Cu7Nq1UyjcynR2HzdPG hGqTwTrinHZh8B4ErEwoyjL I+IX23SKFaEB80OSf7KRH7h WxlPSdi LKRkR7KwuS3mNoZzYZPuNPG kOyc+PHRhYmxlIHdpZHRoPS iqAZWyQjRjiQftCB3mAh1bD GVyLWNv rXuynXUiDfYlt5ufYLHrYFe iLA7qiHhfS9JrxNO6ALExq3 c2Dw38R62dH1UrlUF+PGNvb RS4iJU1 dQ8hZsHqMsC8HFmtZ741FwK ysXGaNmyyw1qba9afmBx4Av N6XRNvckEovApgWKF6h6OnC x44F79b IHdpZHRoPSIxNSUiIHZhbGl uok3xhR5mBz9+RFQzhOM7uZ U1yX8cSxUqFzE4XJcbI963X nRvcCIv Kvdgc7bni1pkxLn9FlUpYII eivZwgYghBXP3z7KzLp68Z8 AssYliz7SqWdo7id17cSNsn 8U7xDG5 T1AkTRPzzvgvyGEcsQviXZ8 gEEEtfxljXEHudL2eIQSjW9 z4CrKiZrD9SOioY5KmblK3L GJvbGQg WHIjlUAEqA7cvdqnp7pkgum iGrPtAFPiALq6POn9ZHIblJ rcRlOzFBV2PiG8ZIE8qDFfw H8spOym cvcopJ3iKka+OIY8iWJchUF XIY1rJyrhsQT+TZLaXWR1mK ifSEcyEANjmU0cKWSgN1j2X iAwLjA1 JPnsJ2WfhtJ2ETZtdHUtBIK juVCVfE0bnptoo0aekqitBk CiPOHiJJx4RGa0KNTraAxiL iBsZWZ0 EzJ6ABG7xUPitN5ryWquari gaB2hGvx+NmvqyXmuHPC0LB x4N7HhBnv3IGSzaViaML2bc GFkZGlu Ze8xoEkibLyhJU1gTDMxohs fi766TxKka0zgSYShuYQqLW ohVJY0P01cw6T6DMUfLUDrX RR4aRT5 qH9ulTjmgyuoaMXdvNicuaL xtQulWBvaWVwcC150XJTivY ozMgXrMLv1S7JeTgi9ZISck WsvTL3m oPLxAQudPx0ohVcgmIpjWG8 iXHLygrenh942NoOdf0gdEO GelCZmJWpaWRK1W24na8O5V CMwMDAw WHM6eRN2wW6mwNaosacwqUB mdDsgdmVydGljYWwtYWxpZ2 80RXQyoHclGbRpyXa6Z1XsF vn2GVEc aUzqRG5uySGiZKmeJa6mrWd dlJabFE2jHHVlnpquk809Fe Cwu2gjIXRatRZmIMaeUOJ9F 56uh7F6 NVZtTGKpZSQ1uLN8iE7poUx nbjogbGVmdDsgdmVydGljYW ypSUfiR137CFKxnCfwZlAze GllbnQg GIfcGPh3O9KqQxowsYD+PC9 7PYGxHA95yJGabEPzi0fkdZ v4MyQfRMYnOZB9kVisONtly 3JkZXIt I86tbAZpi3V8QYNimInwuJJ mMtVktAQ5rV6oDHzuluafi6 wcppftFnwsf9elwv65nP75F 29sIHdp ZHRoPSIzMCUiIHZhbGlnbj0 ylV5nJv3+SWScnLY4tBO2uZ 5jQNAfNcZ5DVybI618KcVff CIvPjxj a3hzh8zzlYp6GfA3SNKmihG ohGrhOSC2e0VzMf72B02kMU dpZHRoPSIyMCUiIHZhbGlnb j3pmC0n Ii8+KAJemTQ6xQJ5eM2yWgK nUdY9JTsbX266IrPrjXFaKv nhD13jQ6LojPJ+MAArPha6H CBzdHls RQ1kdCTrWJkyHe1uLFW0KbY wWjCvPIhpV9OlPHVfladecq qhjIZ7BIVgSDSrsG34Cm5ik DogMTBw fMJRsJ3cnhpjj8jfkartMhF qRERbEUf5EPu4QXDcgBrmOu JcKEP5YnV1JTV3eNNthD7vk Glnbjog cI2sA5JoNPAapqlkFh88rM4 aOlLyYwB8HQgmUli+U0FNUy wgQUxFWEFOREVSIExFRTwvd GQ+PHRk CMA0eKlqREzqUWCzcD2mZDJ hB7r6HjUrQjJ3DTxrA6UnUS YnxiyhSg08mR0wOkZbTaZ2F GffL1Ze kxC9NESdiFRfGLozXUA7A46 jc4O1XECwLPWgMRY3kHX1yH 1hbGlnbjogbGVmdDsgdmVyd GljYWwt XSntM341OCByzZzmWiMiSdT 7FuT6Gyq3I6GxSad8SUQfyT kzMA2qoEDyBNbcLh1khZerj NskMG1u VMNbpdqoZKFxxM0iMZPouOO dnHlrOR0bYPSspcocj540Qg RuEXG1FQTnfLNqY2CpcS6hJ iAjMDAw HXPyC8TulUNsWTitC490NDv lLaW3NXLdfwDjE3DlJBIfwC hgOdC9h7Y8Hz51YRUDANGjk zwvdGQ+ YJMbGJE2cYmfZZfoULAsgR2 mJKHtL2e5AbYtPqG9IIqvI8 LtQGUieopfEj73oA1hChTwL lW5LDnk G9ZqihT8OITxuWWuFKyjETT 8D28gk9N3NAWvIVOqYZT1bZ P5fV9ipOcrvtuslYBmdBhlr mVydGlj DLckKWiaZ948XTKtaRgmHq1 EFYM2W6HtLaa9JOBdyHovLH 7ryEToMEneZb2uuQdbfKfzR U0aGKEd chikCIXluZ0sGJRnhUYvtMd fXA7fGOWawjvgs542KfByNU E6UDZfpFCiD4OwnP6wMlIcP DAwMDAw J5WkjJYwWMqgI009EDxkGsN 4UFSjriMbB1MeMPMzhJysJh S1l7E4Ee2JUVrvkGL+PC90c f70I9Nn UbnfDlt8TQWxDKU1wPK9kN2 gFWEjPEgxq3R4dML0U0Apwz Rukn0uv7rwONQoKFkvK12hu LZoz8U7 ARQqhSJ3HUWghTfhXnSzlA3 3Oyc+RWXouVtmm7BzEqtdh9 bfo2qmeLn0CbXlNSCgwlPdx WduPSJ0 x6PnSx72R44cMOuhQOIaIRA dBXKuCNEvfCbzgv5zvX9oBa 8+GAOwjWZ8tRF2iI0uTfKmF pU8ETvw E915BdDcpRVqTutuz9fms4y qoSr0PeCwURRtfrWfuUerSQ Z6v0XzCy06Z5ImbEdxc8EoT na4uj61 kTHdh5Z7yBZ3N7WoMBEwmxe fwPYjsZdqNR7nYWDbuslaRR UmuU5bSDDkT5l9GaCvYhW9W EtkH5Il mvI3NBPsjOEsCGMszXNXsA9 qwcgfz2iiaifcAmIuKSEyPA q1VAk9ATQbeXmvPbUnWKQ4X kD4RVH0 vASvnR0gjKnlyftlyK2wJec +MKa8y3sizVZgBO6oeIH1XI 92EI59xKLoo8D6gEA3U1OjR GRpbmct ytqwsZL6YYCtZQJupT81Iu5 tjGknCe2xBKFtEVQ0CPYjnY BrB6QkgE8jKmQbMCXhEQBpL 3RleHQt KFprM734OQswUcL2GVDujoF aV5XqRDEjaSngUbC0c2O3Qx 1GGV21VW89HC18jSNes3Y1d FA3D9Ll AGHmvxvqvsvjyFF1QGGfPMM tfZ53Ud1fwTwnJf2aQKCoTB Y1JBWfzNSbG5XjtL2cEvAhX DAwMDAw R0JdqCGiBGwaX539QHkyKqM 7NORygnXoL3NcNTPmgWmoRz U2p5G3We9ZSt07KR28JL12m BRqk9E2 eXV9Z6NhIXJmwetuubvokBP 3MISqIWGmcU94Df0ohNtnDn 3kJVOcPYC3JLUspIYuE9Ylp P2uJsVf HMNfUCByA4UcaJQxKVjrI71 5YAlqThS5ZRZxppZfP0AoPT DtaSjwXkQ9b0D7Bx9WADsuh mb2Q0Pu PjwvdHI+LR31MUAyQR48qAW vvACst9ugwVf0WgRsKGRnPE L1nVxvMGmpg5VrLJTiG55hb GVqw1K4 IGN (more content not included)... [facility] Coding Summaryon 07-12-2023 Coding Summary HTMLBase 64 DhgpcllhOAr7cGr+PGhlYWQ +CA0ATSUwL04qoQMtoE4hP8 NMTElOSywgQVBQTElOSyIgb cFuCN5qpGGoVYUm IC8+HX5sNKRlNtihwABln6M 1aJX7X33whe7tAUxpoTD3UD DeCeWvwgpwf9jbbCp2QVltH mluOyBt XIJmvW68JAS6lA63Rq25rQQ plDCly1zcuDp1DzSeXKLxHA U8rAccPRuxf8RuVNTnR97at PUad0K4 SGPdhGtgkHStTiFbcRD1tU3 qKOuaghwyc2ckzyqdAis1bz 99fCFvd5K2mCW4J2XtfoL5N GJvbGQg ZgqntIDNjV6kpfiex1pjbcb eRcWmWTRvAJm4FTa4QEZslD rbStLfVH09QTU5HEWqflCqR 2FsLWFs hNvfNxQ7h6O1Zk7BH3UGDvb iY9ZPNAFLTHljsEE+PC90cj 56A7LnFolfRjw3CFKhGIV8s PC7zN8x VDSwEMzng2J4wPW3V6IbyoG tvd5qw8wkBJQiMEwhG53dkF Zqq6H6LQGlqNB8XJYvwJrsB iBzaG93 Oyc+HYGezNukw4TvKwagw2j bm8sdpZs6AgzoMKKiktJniR lbKBJ2j7IqEf8ySMYzoUC3e KW7cV3g ScQlFmO5UJxmI563YhFcnLA cDddcW26kK4TywIZ+PHRyPj e3HNMvwMhsWT2vQ9AhMNNff mctbGVm gRboFE6hRAMmdurfRYCknK9 sKYGeS2v4ImBeEmL9ARlwJ2 UsRPZcahdmLe16cK8gVoOjH qZ4LBdt E6MyyiG1KXDoqWIuDJwwRLG 1Z77bf7R9SPNoOPUeAKW9vH L4mL2crMurqgfqfYRynIyxt mVydGlj ABelQPehA470JWSmlHikRoI vZGluZyBEYXRlOiAgMDIvMD YvMjAyNDwvdGQ+NBSnLFM3f WxlPSAn fOGrLYqdUs8zdEvtnMrqMU1 xIIXdrrphJATpjQ2iNOGbqM VtlMeuOI6cUWZujepbo276W iAxMHB0 AJMntEDyM1GtrQ6rZmQnRHN qUTJdQ3GmoRHdWDyiQ245VR gpNvA5DGWermLkV4AuPFBia WduOiB0 l5O2Gx2Xt5DolyxlI1GxkVD iUdTfRtxlKDd6T0KyBaoaqC I+BL42LIQmBG32SWe4OKE6q WxlPSdi URJyP0WubY5mCeJiQANoWAN kOyc+PHRhYmxlIHdpZHRoPS ijSDNhVoZggGyaGY9iXk9tZ GVyLWNv mIcwqKUyUiUor5geMYZnNCx yHC1hiVreO4DdwRG7GGMzb3 a8Ui94D90xD8DshKZ+PGNvb QQ7jPF7 fH2aByXzImB3HHyxJ183MtF phOGrVdefv4pal4anpQd3So R7NYQpktSvzYccEJJ8s8OzN a47R08l IHdpZHRoPSIxNSUiIHZhbGl tfj1hmD7oEe4+SHQxiTT6tS W5vT3oGiNkMtP7KXkxP704E nRvcCIv Vbkox2aul5fiqUh7ClSgPPJ ozwLaoRpfHGZ4p8QxWc52G8 EgeZwvg7IzIon1rx05wPTkz 8I5nOZ0 V4SkKYQpdtgrpOXhqWvcPL4 xKDCtbppoUDMehL0gCBWnO3 u2CjDhOwP1USyyM7YigiV8O GJvbGQg DWCurXZLlQ7rdbmyf5oogtd rRiXeBYUwDMt4CTf0JAGljI igQdZlCLV3XbB2DYD0qZDnn Q6jlBrg rjqqwM4gRyy+NWN2jTKiqIW ATE7gBhurvJU+EERlOEF2tQ stYEalDUUrqP1nRZQnH6x6A iAwLjA1 VDlcW5PyzqY8LHNexJNwYNM toTTKqD0hqnfvf3jnjgixQy BhFMCoVUk0YVy7KNUgoOnwD iBsZWZ0 LyQ4HVA6cGQmrG0ipZwimpj amZ7mOrz+DziggNdzIIX2PP x4L1VsIkb3HYTomYiqXX0nb GFkZGlu Ug9xrBldyWwgYU3sQYSponl za878DwDfw6phFCHxgUAzDO npEIX7U51qd0X4WXStFVDwF TJ1yUI1 cF4loYiniwuwjZLxlCjstgE ksCvbXTgjGRjdY011RMFiaB vxVtWwHQh7S3SsHqd0ZWUqu GdfLN9r dECaLCicHa0dfCouqHmhXV6 oRLXctxmvc230CiZie9ijIR HbwUCkSNnhAZB9U94cg6O0P CMwMDAw PIH9sEG8oJ1vmGrvxzbwoPE mdDsgdmVydGljYWwtYWxpZ2 83WRErfDqpKgOuwMw6P8QvU sl0LKXs aTycPF3snURaFBtnDj8zdPv poKpePO6rVLVpfqyut685Wo Nbg3trDIGtiXNsNSplREH9U 82zq9T4 AGAwZUEuNDQ0eFQ0iO2waFm nbjogbGVmdDsgdmVydGljYW qiXJpeV405GMZgbLadJmSlh GllbnQg OHjfAAf5C0DwZkhwxKO+PC9 8XIKiTC34vNSfsGMra3rluB o1XzDfOIUxJTS7oNvvHYpvd 3JkZXIt W76apRSxc2S1KQPdtAfouBM sOmRkxEQ6cZ3dQBpitpdst1 aburdlWzoex2utyt92rG41N 29sIHdp ZHRoPSIzMCUiIHZhbGlnbj0 axI1xYl4+EWEgkFV5bQP6sO 8tWBMxFuA1RGktA583KnQmp CIvPjxj s7paa0lvhSw1IdO3ZUChygZ huDmbQTX9n9SpOl82W35wIL dpZHRoPSIyMCUiIHZhbGlnb x6ywU0r Ii8+VIFsqMH9yGM1nL0mSlP bZjU8RUdqN298UcQgzHOeRt uzT84oQ1KewWS+HQIqPch0W CBzdHls XI7xpSZrYYinSs9bMQY9MpT rSbLrLOmaC2AcOSBuinaevd ueoBG2SONmRPUwmI50Qe8up DogMTBw qVHEbS6bnhayq4wnffwvQyI uMGGvFBy5JRu6IDQwtUoxDw CsAZF5XpV3ZUC8wYCfcS3nk Glnbjog nC1eW4RdNLPcsbyhTs74lL4 fVaDrHoE3UPkvOsx+U0FNUy wgQUxFWEFOREVSIExFRTwvd GQ+PHRk HVI3pFiqEDggAUJkaR5fKAK cS5q7VmGlOuY0QImpS9JfDQ HjaxfqMu80yS1lOzEkZwL1K EaeT1Ao laK1HQKyuIKjKZfcMLU0O94 rp9Q7TBBnCRHvCCR3bHX3jN 1hbGlnbjogbGVmdDsgdmVyd GljYWwt JFovZ400OQMdzAeeNdGyRpZ 1ErA9Xic4Z4RkHxx6IULpeR ezLJ9pkJGiKYkgQj6snWfvh AzjLO5b ECPdoxlmVBFvcF3uQVSvzXR keFysFR9dZMViceouv302By CpJUX9VARsrJItN7SvsO5iS iAjMDAw PJMaW0GdaZKzPZmjJ655XEa xSrR2MOYwzgPiJ2YhTWKxtT fzThM2a1N1Pb79SPVMACIpp zwvdGQ+ DHXwAGE3yLliKNtxMRDkfM2 kBWUfE5i2EdXwPtV1LSnpB8 ZbJVRtoaqpUl16sW5jSiYgO vS6HMqk Q3NhpaF6SDAluOJmQDchSZO 8H99fp3Q1IVIwOMWeCYJ2mQ T6eF1zeZebihhqhJXntVsia mVydGlj JUlhHJcgW190PVNfqIptOn6 VUTT5G0MtDsr1UTLkuJifFQ 2sqUJeCIgoRm8zyCiizYtrI H8gPUEp xqglLUWwuY1lFABkdXObbFw eDJ3cIFCfolcul255ObXlTG C5LNIskEQqM6WwvO7pYlQyA DAwMDAw K3DutUGlDLdwY227PXrrVtK 1RWFgtdSrH5RtSEUbsSvbSn M2e4O5Qk2RHUesbQW+PC90c g73W2Yf TevmIng4TEVoNDL7wRI6wK5 cDHCnVRudh5N3lUE4P3Mpbx Lmjl2zo7akKMPdLGgdP84mq JIqi9Q7 ZXZwjGP9BTWfnBmtMnRhoU9 3Oyc+SCUcvUwtb6PeRifec3 sum9cegEp8XwVnAWMvcdAhu WduPSJ0 r4VpSc68Y36xOAtkUTJyKLA tOCQtRKSyoJtwfg7zxN2bTr 8+IJPnjWC9lXO9zX4pNsItE hO5WAqw H753MaPiaSSxCsghh2hfz3q seLr8QoUaMLAagkXyeYzgZD R7v3WlJy40O6OxfAlmv7RrK br1hj09 fJVsx7N3nEA5X1QxDYKdpxk keDUbsLmgRH0jBFNjrztxHY UyqW7rDZDoY4i3ShUiMxT3W QusA6Cb ygL4DLTveZHaPXQrnUYFeG5 cyjyki5qeenbqRrYdCNCuWQ x4QIa9TZRxlHpjTaUuPLU5O xZ6REH4 tRDbqQ3ruTvkvqprtY6yPol +CSo0a7bnmYRlFR8aaBU6WG 32CC81pDRun2H9xZW0Q1ElW GRpbmct fwjfbDJ3CELtYRYtrR32My1 ajDnjTr3kTCAwMMF6TZPpdZ DtI6IbfB3kGsLdJLTxJPDzA 3RleHQt DYcfS761ZKijZxR5QYZfasJ qQ3JqIKNnwYuqZrE2m1S4Bb 2XKU63PR38CT55vTTrl6O8y RJ6O8Sf ZUGjnwurmxzzrGA1FLOwKRY rzF07Rq1ybFnnAv8gRUWuDQ O3JFIelWIiR3AxeU3gQvDuV DAwMDAw E3AcfKNdIBzyI425RGakHlD 1KDJqfsXoC5AdAACzcOiyOc Z0t2N4Ci9RWg63GE36SK40h ZQlh8S3 pPG1K1AiYPYjllqezwcvfEU 9HRRjCRSusY86Yf9kdSgxYx 0bJJUhIPT4KZRukAVaH5Dmy N4yGkQg PFPnRZWwE5GasXIuHSzjL38 9HHjnAxS7CQLhjpPxI7CaBM TbuDxsQzA0d4S0Cx9XUBbgi wn9S2Qv PjwvdHI+ZC75BNNjIQ37tMC btVVix0nleCb8JhQkVVYcNI Q0mAopBLauw5FqKDYlZ31ry GTex5B4 IGN (more content not included)... [facility] Coding Summary HTMLBase 64 OomgorumMTy4aKm+PGhlYWQ +UQ9TWJVgU91fyTIgtM5iV1 NMTElOSywgQVBQTElOSyIgb hXiFJ8qzJDbPWRo IC8+EW0wOJPbHuvcjQJqi1G 9yDK4A10eye6wGRsknTO6OL AvQqQfzfylb2nsdKg8SDpeY mluOyBt IZOqgM43MNA8bM90Vz74aXJ gzRSwr3scrMu6JwCfABKhFN W9iVnyYGhlb3UuKDGnR69ef UDru6J7 RDQbuLuswWCpZyIchPG5eW8 uQLdeixdlj5wsovbdSkl4dw 56qTTra0T9nUJ3D9PobiE5S GJvbGQg OfeilRQIaD2xjment5mxywp nUxQpAGKyPXr9YTz4EJLrwR sbXfAkRM42HLH6LTTckoRaW 2FsLWFs vUpzEoK4z5F8Jv7KP4BKJqa vR9WHNVPXOCcmnMH+PC90cj 81A8GgOmqyKro0BLJaGRH3y TM6jE2n ZQIxZWocd8R0oBD9K1TnqoS dgw7dg5mpNJYmWPhzQ69kiT Uyc6B0BKOalNC3XSGajTefY iBzaG93 Oyc+DZGxyJqsy5RtIefpd1z kp1kwtBl4UjvtGOJabdFelQ gnOAF1q5LaOc7sNCNxaTA5k IY0zB1n QeJjBjI5YXofF072UpYboTH wTyjrZ40hT4ImcJN+PHRyPj y5ZVYabYjdPB4gC7ZzZPRfr mctbGVm dNjsDZ4vSGClfcbtIWYawS3 vPNVgW1e2JwSaDlJ7WEkaM0 YyHLRctmuxAu06vD7wLfIqW uO6ERkg W2CkysB9ZMVlzZQdNYdeUUK 7U61pf5U6RJVmOEKfFVX1aU J2hI7rtYshakvtdQRziZifb mVydGlj LOjjCGffG055NXOjcCwnKtM vZGluZyBEYXRlOiAgMDIvMD YvMjAyNDwvdGQ+IIIcVUK2j WxlPSAn tSPgRNizLh4hjYwbzDbdOC1 oJMJkiajgAQQubD3sYFElmS EavPfwTU9wVNRbhjang155H iAxMHB0 KGMzkDDzP3YscK7sJfLxQBG zXYUlW2AdvYVhOYliT379KU fwHkF1IGWveeOgS0TaRQPnc WduOiB0 b3Q0Ii1Xu3SqpepjY4NqtDR cBzScLjvdJBb9O5JdYieerK I+US76DLFeLM41KKx1GRR5t WxlPSdi NLAzW6ZjhT6rYqHnVJWxMES kOyc+PHRhYmxlIHdpZHRoPS evXFWaWyEsxTybSK8bKz6zA GVyLWNv cLdzbNOhKlNdn1kaYEAgDZn lFS8oyDbzC3QreYN5KVGzg7 k6Kl90Y89rJ0DpcKH+PGNvb NQ9dQW8 iU1eUjJtIvW8GIizP211GsQ vzXAcGqhyo8nue2hgfPk0Wv B1AGPblmOnbBwmYSY6h3SqA o46C55u IHdpZHRoPSIxNSUiIHZhbGl akp7fnU9iQi9+AKZsuVB2rO D3iW6gTkQnVuT1LUedI485O nRvcCIv Cskkg9mxu7gaeZz2YiHeFQY yvxKvnBnmVLF4z9UnNd25R8 DuhTbtd1RoVep6ra43bFQor 1J0kSL0 W9BsXFAkfbnyrFQvrLtyGJ9 pYTYfcvbrHAUykU1yWHGjF7 t7SwXxCnM7EDnrK5WzywX0D GJvbGQg QYRzfXZZbB6yatoih0rpayk lSlLwFFRvJPp6KZy3YMPdrW trPdJjONM5AyX5BDH8yOEoo V9mxKuh bpajkJ5qGmb+AKN1oSAmhNX DYA7vCzvbcAK+BXOnHUN4tF tpCPawQSAayS8lVMMwT7a6S iAwLjA1 MBjaS7HfnxZ3EYDndMNcWEP cxKSOsF5yymavs9cnbpioBx FrLMNhDTk5WQg9FCRifIzfU iBsZWZ0 IyH5UAI1zQNguZ2ciOhbgez ayD4qEhm+IxjgkUclESS0WJ e9I9NaEdw9ZLQupHisSM8dt GFkZGlu Md4icVgqgXvnOQ2sOVCnzbe dl439TwKsv2pnGQWmcRTtRI bcJBI2U28uu1Q3PYUpTHQeX WT7nBP2 qT8wqErlzlmpeESqoNrpptE jxFnnSYmxJLwiK075XINycG xbPwOlSTh2U8BpAhu6KRGyt ZybIU6f dOVjBTalVd4evYhvkXwvWV9 zZXQekagla965OhHcv1ngMJ BjxBLvUJofDYM3L02je9H6K CMwMDAw YXV5hJW7aZ9jkMvlhsbzgIG mdDsgdmVydGljYWwtYWxpZ2 65LZSxhQgyViCtqUz0B8SjX jb3UWTs bEfxOA3diPKcEYmkEr5icEn caSjiVE9eVTRppyexw342Ri Qkh8nwRBEouEVwACefLFV9X 72ku2X5 BEGsOFHyPVO6gSN6sR4ftSs nbjogbGVmdDsgdmVydGljYW axMSkzL869EHSyhEmeKtRsm GllbnQg ZQxyYTg0E9YtQxydcIO+PC9 2AWCsBJ59hJAwxUGta6wfnO m0FnAxQHNhARE7mDpjAEjfe 3JkZXIt B86vfEZfw1N6WCItxAmvuMT nPzOiiZH7tB6wFUbetudko0 shjvleUxltz2cgfp09aX85B 29sIHdp ZHRoPSIzMCUiIHZhbGlnbj0 ptU4uYb2+ABFpdLD4kFI3mH 9cZVTfEeZ9WRouL281OiAxx CIvPjxj o8hsy7kylVu7WfR9SMXotkR ikXycTTF6l5NrLb04U05lCW dpZHRoPSIyMCUiIHZhbGlnb t9yyB9i Ii8+BWWmqTQ9cMB8dM8uRsN tZnC1LFmzX537TqRldXVvHg mmU35xG8HwdYQ+EIAnQml8O CBzdHls AU6hpQLkQXjjWn0dXCQ3HfU jPpQkWMpgL3ThYIRcahfuxz mgyGW3NAEzSXSkfK53Oi3oc DogMTBw aKTUoY8bifnkx0gxtygaSuZ wITIkTDp7NAf0KSEjnRhgAw ObGJU3EvK8JXN3eXEahZ5mb Glnbjog hT8yR4YnYWJpfxkuHd22kL6 hFsLkQjX5VHvaBgq+U0FNUy wgQUxFWEFOREVSIExFRTwvd GQ+PHRk KVZ1bYjkZLklJVRomH7kDPT iT0g3ZfOjVjD4VUmvR5VrFB SklscpNl77bM2pDgHtKgM4M XgzX8Qz qoE4BQCivYFcPBgyEKV1H63 xw3E5KUGlCOFwRTR4tEK1oU 1hbGlnbjogbGVmdDsgdmVyd GljYWwt OYecC773ZPNoaQdlBdPlJuT 5CyC3Eqy7V5RtEdy0HBWrsH miTK8mgGXvMVhkTl9phQdce WnmNN1s VFAsskjsERGoaJ1yMCRemJE hhQsrBK6gXZCqmurmb533Mr MnDQK1MRLqlINmB4WoqT2zS iAjMDAw ZUWbA0PkwXUkABqsT808PBt jDkH4EDPbngNuM0QlCILajQ ljKkK8t6Y8Ik82WNYJDEXgn zwvdGQ+ MAGkHGZ2iQcrWVrfYAUekF9 zVDUqN3j8PlDwUyE2WQxhK8 YnDYOzskhkKm80pP8sRwImC wA9KWmw F6KyxeH8ALXkfYHlCHvyONH 4K52ks0I7WJRaRWHhHVH8fM I1gX8peHflbstiaTMicObtx mVydGlj IPwfPCcyB647WNRjcTlbPe5 DSOF6B4FnVqk9XBMptIqeZS 8fcBHjCQhyVs2ouAgnmXftU T4kYNEl njxcWIZglN4dMHVaxITngSg fTO3dGAJbmbqiw851SnReDK A9ACKqaKMlI7RgoY1gSdZnL DAwMDAw B1NrqSQiMXyrI869HXtnNrR 0OSMocbDsB2OzVGZnzGvwYk D5i8T2Qq3GNCjywKN+PC90c z92Z8Bz PpkrBmn3QCIeAYA1iPA5oJ9 iCAOjEMkmh1S5aCY7U4Voah Ikif2yh2goLDLbLXtoP42th KPsa9G1 OPUzbJZ3YQIrqMliGaRfpB6 3Oyc+CJRtmSond1FjQuqxc5 ikg7wrbEs5QmQfNDOtfaDdy WduPSJ0 k9CdGb58G68gLMnqRBYdQAZ uMUTtDRNyzYnlvn2hbD1xMw 8+LILfxXK1lKO4jW5aHbYbH kT9KFjg Y852HaMkzGHfUwfmz4tez3f mnUd1SvOwJGOvfzWorAffRC K8l3MgFm08T7PmmOrqc2YlB mk9iv74 zTGfw8L4uWG4J0QfSLAdgtf txGFrzMckCR8zOZEqfqagGT TldR7nEJXdK1g3HqRqAaI8B QvlS4Cx afB0GPNntIEkOCIyyWYVrZ4 iamany4zfnjrrToNgJZKzVK n9KYr7NOOoiXemKpQhUTJ2J nZ5QAK0 cJNedO1icUfokpmgsK4cDlp +BHg8b2hmcWBbMJ7uuTO9HC 45KM07jYLpf9Z9oAE8Z9RnT GRpbmct gtixyZO3MIDkNGXlqF18Jf9 fpOifDa3zTVYyESI0JFEefM WgM3CvbJ6vVgPeUVRrDCNcI 3RleHQt BEoqU104CEdgNbD6ZQKaptU xM6VvXEEgvXdwWgY0h7D5Lz 4YJM49JJ56TK73tENnf9O6y UZ4F5Al MFGrskrrkstniZT2EGGrSFX ndF41Ar8wwUllJm0eEMDaHI P6WINncOWlK4JulD0uWrHpP DAwMDAw N2IytPAwRZnpN840MLmfDuV 9NRDshrUjO7SsFYNxxAzpKg Z2l1F9Fx3LDs48RS70GW43e TPps8U9 wVR3F8JbOXBotevclrehlRB 0PPAsCJGmoT06Er1hwUzxFk 2yPSOiVKA8JDMdcROsX5Tlx Y5pUlDa LCJeVACiM3CzeSOgAZpcC90 5ZJfoInM1EZZnweQrE2ZpNE JlnKcgGjW6q0Z7Lo2LLTbaa tu6W8Bs PjwvdHI+CO79JWUmTV84eNA jeHDzb0vuuNi6SkVhCNKvPR F0rDmuFNvuh9AnDRIgZ30et DHti4H9 IGN (more content not included)... [facility] Coding Summaryon 07-11-2023 Coding Summary HTMLBase 64 BssafcxyQBx8hGh+PGhlYWQ +CT5GNAWnY42xvSFviC2jB3 NMTElOSywgQVBQTElOSyIgb dRyTX5slGFfAUZd IC8+QW7xOITjNnbplIBtd1Z 1xFT1V01mxt6iVBthkQK1DY QgRyTjaypim5ydaLt6JQbmE mluOyBt GOAkiT02GRP9xD03Vz29xUD lvTZpm1sxzQf2OmNgAGGpWM T4oBkvCIjlh3BsVTTiP04bl SKmc1S2 VCLqsXamqVJpVjYryJX8jJ9 kZUzamjrhk3belwwcLuo4xi 29mTBik9K7cCC0W8BvyoR2D GJvbGQg XtjsxTSJbL3cjhblf6fbebd nWnHiSMBdTBf9EEc6XZOlvK vfWnMkRU34ZFQ8GYTfvaAxR 2FsLWFs nUgpNeC6n5U9Ph8OA1OCHph qW4HIXAQIGMkevHC+PC90cj 76T4NzNmfoMpg4PMEwIBF7f RZ3dI6d MFYpUYnsc8X1pRB6M8NlfxC vsj8lm2uaYWOcITzzX92tcW Pkl1G8UWXpfJS0WIBjmVscQ iBzaG93 Oyc+AKFeoDvny2YzFcugu3k pz2ppzXq9PiimFUQbquDubX itDBL8s4WdKq3mDJZnrIC8d IP5lH8b UbWdReS3XHlfL150DlJevHD cBgeyR52dI5LyyNA+PHRyPj c9PKNgsVypIP4tV8YfIGAte mctbGVm cOevPP2vVKBvhpbxYSJyzF7 ySBOqY1z1NfFwMbC9AVykJ6 UhHTTavnluGq46yO5pJrUkG bD1XOxz L7HbsnS5BURrzZPwWLyyBDI 4L86wa7M7FMErNAYoKXO3mQ R0oN0fcMvjperpzNQufQezy mVydGlj LMgpKPzaH825OOYugUweByO vZGluZyBEYXRlOiAgMDIvMD UvMjAyNDwvdGQ+SCTaPII8b WxlPSAn vXZhORteBb4nzCadgGdbVD2 gUQFagcakMNIppQ0yBOGiyO BoyNynER7xTHQkicuex874J iAxMHB0 ECSepUQzB1PvuX1oTcWaYIV pEZWmH0FmmLXhPPgmL511XL imGfB1MESdqrZhU6RlLRNbc WduOiB0 m0U8Wh6Rd3IokhosE6YddYF vCrQqKvtbDKq0A5RpItdkyC I+QU16ZUSaWS08WIm3TGT7u WxlPSdi QWEkO4RbfL1cNfLcLHGaDPG kOyc+PHRhYmxlIHdpZHRoPS anOYXnJmWqrKlzUJ4tWx4hL GVyLWNv cJblvJXxSmEox6wkSFAxOHh oSX1usWjqQ6NvsEX0ZZGnk3 y6Us33X11yX0KpdDR+PGNvb BI0dKE2 aQ5rIzKkMsP7TWkiN683IvU leRKxVzree8arw4rmzKd2So R6OODegiObhIqmJKZ9k2AyM e07V30t IHdpZHRoPSIxNSUiIHZhbGl ggv9cwK8nRf4+GFVmkPB4pA V8xV4sSsPwEfH5ARloJ466V nRvcCIv Zhchp7vyg8gdbRx8ExWwVXR wfnHtfJclZHE7c5QvCs95T1 YfbYczy7VgWzc0nz74tOQjl 5S0iWT1 V3LeBWZklhhzzUXijOtwBW2 rNHGrcwaxGNMxvJ7mCTUpP1 n5BpEpZwM8OHodG3PeqfJ0V GJvbGQg XTZikYRBoM2hcahmd9jnilh bMySsLXTzQVs4ACt0OVVvkI pvHjTpUOY1VcU8COL8pOAkn E5woTpu rvuxsC0oGme+XDZ9vEUycFQ PNI5fXwftgXZ+WHHjGAD1lV loIZuzUDQqyL6pUIVwG0c9U iAwLjA1 LImrZ2ZhfmY2ITVpnNNoDXE wxPBZqN6ugbhnk5cqgmlaXr TeOHGiCRq8WMv2QPRkgIseG iBsZWZ0 UzZ0AWL5oKYowP6gpQodchq vlL1fOgd+EtjwhUsnSXI1MY f5A4RaGcj8LXDlrRolGU4lt GFkZGlu Rm6onXikkEopMH3hGOGppbk lq600PgUtt2ckGOVsnBEpRV ieOGU5E83ir4F3RGVvCKToA TJ9iGF1 nW6voJjsjaenuQRuhOiwbhR jqDfuFHzoBAzwY174QPSuaP uxYzZpWNe8J0SqHns0DMNel BjsME1y rAZjICppLx7eyPmfbXlzOC3 zVQKglzczh750FxIil6meNE VnpVEmOHrvMIR7A60co3F0J CMwMDAw EIS1fHC9mU1cuImnownubXL mdDsgdmVydGljYWwtYWxpZ2 72TCIlkNieKuQeyRf6F4FlK sb5NSYc zDfzYE3psYFpSMhxIp7pgIe zlLgwUX0gWRTeyrnqp647Ya Lct8mtIYTthGTvCEliMHS8J 60et4Z8 DMNlINDdJPD8fZN3tA0tjWp nbjogbGVmdDsgdmVydGljYW lkDKrdM802KJTaeBceQyGar GllbnQg TZviWZf1P5WdOywzmSK+PC9 8OYAcRI29aXSryVPrx2vzmQ e1YdCoFTTfWRV1oZucZZnsp 3JkZXIt R66mtJRya6H8MUHedZbjhHU yLzZflPT6cI7zGBzvsvqtl3 uuisrrFjtbj4lywa24cX43C 29sIHdp ZHRoPSIzMCUiIHZhbGlnbj0 ldV0aIt1+OFGmhIT1vCT6tG 9jSZRiIhF0OVawI151EhGkw CIvPjxj o0rcj0mjkZg4KgB9DAUbgyR ykPjgQLQ6s3KyNu96V87dSN dpZHRoPSIyMCUiIHZhbGlnb y1lkH1j Ii8+TBYktFG8qLN7jQ6uIrW jEaE6JCgpH596XlElmMKvXx baB19lE3CgnPB+OPRgUwj4J CBzdHls ZE9rcUJbHGznCm4dHNV4XmO wNvAbXMjbM1LfNYGabofcxo zrkZQ7PDBsBGEhgK50Bk9py DogMTBw eRRHcG5xpditn7egziddHhS nQZPjAIt6ZQm9SOGkvEinTc BwNVK1YuJ3UCS5oLIygS0pk Glnbjog xK7bF6AkFSVmdcimDr92bJ7 gVpTfGwK6HTggOwh+U0FNUy wgQUxFWEFOREVSIExFRTwvd GQ+PHRk JIA1rOxiPFqvMDJsrG7rREC fC6q4SuXiGfZ9TBddN5WzAQ SggegfHi38eT2eQbMoNlV0D PvhJ0Su zwG6PHLbeTXhKUdzFDZ6P06 sc3U0LSCbERWvHKY2qZU9sC 1hbGlnbjogbGVmdDsgdmVyd GljYWwt JLzsA366CQGwmZfzOdHyAfH 8EzU6Eqy4G5LdLso4CPDrwU sjWF8hjRNgEIvjLu9taPkxu MucKN9u ALNuaqldBZMxaR8rOWRzzOW owVbbFN1bFJMpyhjic156No FaAIV6FWLlgVDyC3BlgN9mD iAjMDAw BQUnL8ItcTNlWOeyP151ELu oAtI4XXBqxdMrC4TnFBWtfW lfNaA1z5V7Mf18MRGLWGOhp zwvdGQ+ UQEaUAP9wTlrVRscSJUqsB8 vAQVrG9s1DmWcTpM1GCmiA5 SkKWDkfsbkCq39wL2pLbFfK vI5JIfb S1MankJ0ZMIivKRtVGurDIJ 0A85os5O5QFBfCMGmCUA1rF C7pR0ctAphmyexhGLjqXlgd mVydGlj DKwpLUmmF758UXCtgOgxVo6 MOXW0E7BiYni4RDIdoFukMS 4mpEWaHPoqUh9gzGryjJqhF C4oPUUd qzdpVQFhpL2kMZPpfRYiySj sUQ1vHMQelemdx409FaQdPC G2NWOjpSGfH6NiaE3oAxVgO DAwMDAw M2AmdMYmKWszR157RKioShO 6REJeplIzK2WjPLZqrYehTp C9v7Q6Vx3BTDygtTG+PC90c n05W9Ng PpgbTql7JSHdLZL1eBP5lZ3 bOSKmPNfkm8M6qVC2D9Skzr Mdto8ub9nsAZIoNGdzD50rj GHrp2F3 BMEbbJJ4PLZxgKxsQrOviQ6 3Oyc+LLZjxQsqs7GiRzjdg1 ttb6bamPp0WdMwRIAtftZtf WduPSJ0 r3EnQh45M84eCBmlXYKiKRC zLUUcPAHfoIdlpl6huX2uZz 8+UVNmfCH8lJK5pH9qSdKjO oJ7XWfo K131WhBoqSNtQysur0rzs8k coYa4LtLgUMIegqVinPegEV Y4t2NzLo38U3KfiTfkw4RfJ lb9pb93 bQJsc9D5uKE9O9PeVOBugos qcCJqpJwqES2lDIEagkcbAV TsyG7eSULoN7n2XcFkJdR6R YluG0La ftK8BPSudUThYYZnqZVKeX2 vjycnk6qzuzuuWrPnJBEjCM u2TUo1SQSodPntSnFtFCE2Y iN5TBO4 pLLctB8iuYjqmwdppT4hZje +ZRr0c0cmgETmXO1hjSU9LV 90SA90eVNal5W4gTT9O8FeR GRpbmct awbnnLE0VJQhDYWmtN23Fx1 twIpmEp5qEJAvWPD3ARKenE RyM9DdwM2iTyQfHIBlEKJaZ 3RleHQt YGolF655HTxxZcO4LXHzcoP lG6IxONOyeJhfGrA1v1H8Hr 4FXA76AB26NT62wJOch2Q4r UK4F4Ib EMYnyjuiocfofJS6TBRrRVH quB44An5zwZblMe2vXZApNH D4LSQiiVKvW5FhfV5yTdBoB DAwMDAw U8WlyAWnODshY128KNudZuC 3NYOzueHwQ1TpCDItnTfmSf Y4u9X7Ok3NLo29DC87GA62t ZUmq6S4 pAJ1A9EsTJLskjjdfzfzbNS 3RWMgYKKodX84Ww7uaRpvDn 0fHIFvCTF6BQNtbAQgW9Ufw Y9iUsVa FXVaFSDfN5KgiZXoWWysO50 3DEfeBxZ2DAPwbzLkL4LsGP ZqqYebMzW9m9E7Oi6XXElne yc7K7Zf PjwvdHI+JR43AQWyKW58zPB zcUMmn2dnpDh5UsPpCETsNG R5yQxhPYmhv8FhGKWqP39db EBop4V5 IGN (more content not included)... [facility] Coding Summary HTMLBase 64 KgrusenuGLu6dFy+PGhlYWQ +PK1HMNVeB86ovKTfpH7bH2 NMTElOSywgQVBQTElOSyIgb cMxWO0iuYCeRUKu IC8+XI4sWOMlEhofsHVlr7R 6jWW9A28ven3fJEfaaUE3BP NeQoUimnpln6aogLs4DJdcX mluOyBt OLOwzV42SCA0oS15Sa48yXC wxZQto9qcqXj6ErGgTILaIK R0hHjfARjzf5GlYNSnV12wc FCkc8B5 FLTbqMsotGSrNpNlpJU4aE9 rOFnyhdbpj7ktkzajYcq4wz 61hCVbe9G7yOW7G2MchiU5B GJvbGQg BpjqlKRDgM6ifgxzv7ojqzn nXtYnFELhFUh3EGe5DUPjgI fwLjUwEB98ERJ8NNGnzcArH 2FsLWFs kAolTpQ4h5Z9Pp5DK2UHVeq yT6XHMTTSLRtrnAQ+PC90cj 95C7VvAuysIkl7MMGvEFY4c WH2gJ8l BXLzZAlsu4T1oDM5A6NbwgF slh8fl4tcCMFvPDcsV89kgU Nad5C7LTKsmNS1ICLidQndH iBzaG93 Oyc+ONQlcNdsc5PcAngrl6t qk6yikKg1MeahJUYbbcVmsH vnKON4u4EmIu6rJNKnvOS1f NW6uN7x TlUbWqB9CWdjY399UzVaeLP kRwexG86lA0GggMN+PHRyPj k6AHCwlPzrXX6sL6ZzHHTcp mctbGVm hCafFO7nVSTyotbsIHPcoP2 nWMEwJ0j7JeAqZtX1ZEfiG2 XzBRYdycgdFq36kS8lBkJbJ dL3SRvb B3DobsE4GPBioJOuRZvrPSV 7L99zh6S2WXJsPVFvAQF3tO F1aF1teIhsyvyxtZLduDkbg mVydGlj VYdaFXwwE358KMUnbMmzZrS vZGluZyBEYXRlOiAgMDIvMD UvMjAyNDwvdGQ+CIEmIJT1i WxlPSAn aFKiJIuyGu5jpDhkiUzaGJ7 bVXKzmxerWBZrwG6wKVUqcY HxfWfeVC9sMXNspwewu136O iAxMHB0 IRGwbUPcT6UdrY1jUhAoQTV gBMLpL2VgeFPvOVueM255HF kcLzY8ILWnjjDmU8QhGMJmb WduOiB0 p9Z7Da1Aj3QhzrwyJ4XlyGO sGyZfDfohIKb3M7RoQhaqpQ I+KB47NQIwMH26PWp5CIB2a WxlPSdi MVCiF7PyaV4rCyLkAMXbZTR kOyc+PHRhYmxlIHdpZHRoPS oeULIrCuDhjTsbXG6pPh0oC GVyLWNv xLqnwWMuFcUbq1xrAWEtQEj jQB8qcSzzY0JxlKP2IGMyo9 e8Oc30K71qI0PifHM+PGNvb SR2kTS8 uM9tEgXhNlX8OIzmG973AsL jeGNiGznin1aeq1cunFb9Ao T7ZZWvjfIaoTduPRK5k5ThX n04G28q IHdpZHRoPSIxNSUiIHZhbGl aal5hgT4lEz3+WGZkxCU9wW C7nP0qFwWoGwU7JZtiQ127O nRvcCIv Hzmcs3pni6rlsYx3QfAwDHI aclThcIjqKTG5a0QqMd23I0 SkpShwb2NkFlc6wt62nYVwl 9I5qGL2 L8RuPWEgmrdgaFNwyOkrTU9 zAHAcxzpfWTRjbL6bGQUdP3 b4KvVsQzK6EYykG5YnzcL1Y GJvbGQg SLGmhFZLiG3syysbg4tyute xKdLnHKSjGBz2SPm2IZXgfU wsHwOcREY0QiE9GEV9zPDxv Z1gvUun pgtpnC2fIbf+RNV6oWDwpGU SRD6jBwcpyAI+AHGaPNW0rK xbEPgbPTJopS2iXZMlE7q8D iAwLjA1 CLplT0IfumM0AGFfoTPdTGQ ldBOVuN7yviqwi6etewkdBo AwQYNlLOt4VCt0LVYneIxdE iBsZWZ0 GdN1OXJ2hIPqsV5lmRkqtov eeE9mJnt+UokgbRtmGON7HY w2S7BmIpg1OZVdfQndEZ3up GFkZGlu Ub7drCzfaDfsEY0dTCXevov xn135CvKqz9puGMQkrGAhXQ ycIJL4R96ly3D3QVXkIXHyZ PY0fOL5 eP3gnQujbaowhSUgbYerymE jxIkaTUbjYBtfU455OCVizX csBkKsSPv9P5FjQnj9XMPyu IhqWA1f iYTeXYutNy0znUtbnTlpZU5 yHPXcnxarw253GeOfv0byGB WtiXDeGCjyJEU0A12oy9Y4Q CMwMDAw DZR2vUV9vQ7tfYmritymzAT mdDsgdmVydGljYWwtYWxpZ2 33HRIyvOmmFbFvaTw1S1DzA dx1GKHm fCirVF2iuRWcNWdxOx2orJs grBikXF4gNLCsohert314Ei Pyh3flRJOxzEWlBNigAQI0B 92hh6N1 IIEkHPNsEMG1xPZ1zB1ulQw nbjogbGVmdDsgdmVydGljYW fcIAwhZ045QIYosEwoAyCgk GllbnQg HNbjGHg7L9XbVoxggAY+PC9 5HRRzCB54qQCjjKJva3skfJ i8WpVlVVMpFZU5nMymRRdvb 3JkZXIt X63mfYEbk4J5ROQghRcugAY fQbQfaLZ1pT1aLXfchauxb4 huzsqcCzcma3lbod35cC39Q 29sIHdp ZHRoPSIzMCUiIHZhbGlnbj0 xlG3rSh9+KQBzeRW2tLC4dP 4gNYYkQvH8SLnvQ756RmKix CIvPjxj z2gts8hwkWm9OmK8KPHnrvK svSdfBPT4b4RiPw14S23oJC dpZHRoPSIyMCUiIHZhbGlnb h5zsG0w Ii8+KTQijPT9nKN4tM3yHcA iFxC9FWciZ783ReJamAZqXx ynM30eK0OkiAR+PSPnRry5J CBzdHls ZP0jcMAxOBggTb8aTZI9LrJ aIpHzMTdnU8QfZPYuyyunsd mpaQU3IYJhWIUavL03Zk0ys DogMTBw iAYFrJ1iogyks4yrjdqsPsH aPHWfXJl7FQi4XHUlrCnxRy SkHSO7EsV9ZAS5zYXwyB8to Glnbjog qD0kT9TaPIOczodtQa75zG6 wQoFzJwW5ZWqyEvk+U0FNUy wgQUxFWEFOREVSIExFRTwvd GQ+PHRk SGR7lYjxQQykNCPfpC6hRAO qR9i0WiXgTfL0NOhjQ2GcSS NavbpmIb29vB6hBeLeQaF7D TvuU2Nq xfO9SCCdoLFsEJquVJJ8W02 if3R5YCLpNUJjZMX9kAD9iZ 1hbGlnbjogbGVmdDsgdmVyd GljYWwt FZzhK275RGVruBipQnBeRuC 2KeO0Url9D6KpLnr6CEBufY drTW6ufUCdCCiqSy5kkBxvp YeeIX7j RVWwcwnnTXYhpX0aAQTnlCO saDjkWU2gBIMvawesu145Uu LcUIN3PUAcmTDnE8ImvN0xB iAjMDAw LMLzS3OpsHPtFZndD678DBe dUnE3CZWlbmRzD2LhHKDhoP miEqC6z1L7Ex04OCRHNDXdd zwvdGQ+ DORjELQ6dYcvUDokWQLnfW2 fZAOzQ7m4MgNfYwB6BKirZ6 BhUDAzcacmVv35mV7bSqNpR tQ1XWff U4RmzfX1ESPsuEFiECmjCQV 8W49au0F4KMYnJAVvPAO4iL O7rN1hrZwhpmrovBAsiPdhi mVydGlj OWvqURvmA348WRTrkGswTf8 OEUT7G3GqQwe5MOGbbYqbMF 4cmACrENdhYc0usTvgmApeU O8pSNIr bbofSALbjD1nRQRjaOAxrVt oQL6pPXElzaraz205VgZdDR H6DYYowORxV7DkcY9jDfHhP DAwMDAw D2MciGExMSudI946LGnuTnV 2PILapcAcW8LmGPJvpHenRa Q2d5R7Bz2ZYCemzMY+PC90c c70Z7Fc XktzVut5AOCjEBM6aAV9rD0 oURVbSEsbq2D8hFG4P4Qard Ihak9jz7kuASLiUZldE56vs QJhg2Y8 YUSttXH7GZBvxUbbNzAigW1 3Oyc+VTTfjUimb6KvUzgjw0 yfm3dfmVp7WwQuEQZgvtWdo WduPSJ0 v4QpAp17S31pEEodIQKqMRD oDCQgLUWilOxkbs0hqL6wBz 8+ZVMrxKW2lOH9rR6bWmRiN hE6HLec U053AgGfiPUsLrqei3qnq4u poPr4ByXhEBPszvIyzZuiAD P5g1PzKg67A9GdrNwsc7DfI su8ts74 jCKtb7E5gVW8H8PqMXTenut dySSlyPvlUI3vELLnhxchUV ElqL7kIGTfQ4i6EfGbZzM6A PovU9Vb bzW3WSZphZHhWUQctRVRiD2 rxpxeq3auoljvUyJbYGAcVW v5QHr0RCOlgFfmItXyKJU1F zU9BZE2 lPJwgS5vlMspgujiuY2yGmo +EMp2e3npqOLcPJ2niJM9PU 48WZ90zQDgu3B5dAG6Q1OiW GRpbmct izimrBE2KVYpDYFkeF02Fs1 ewDumGu0lDWLfGTG1QLZveT FmI0CxvK8kOpVbTXCmJQVyN 3RleHQt CAghH113GJtjBmQ4TFNqrjF xV8FyRDDmxLcbVtI4v5M0Qr 2GCN24KY10PD07gEJeq1F1i JD4B1Yg LHEulhhteyxnpCW2KZXeCNH gtF68Us2wsGzfCl2bORCfIA B2DYNjtROoO7JtsD7pOyMaG DAwMDAw S1WotXJdODrpL573SJepFeC 8WEPqefIjZ0JrRTIgyKrqLx S6n8T5Dl0UIb71ZA70SC82o ERwi5G6 kIS8Q3DiWGLwjytfauqdoOB 2PTNlDSYooD24Wo8gnKdfZy 8oAPWsICT5ZZNklPCtI7Efb Y4cHqLk GZFxDXQbO3SpgFOwPRtkC89 3VEeyUcI9FGRospAjV8JqTF JsvCzkZsD6f7V4Ha7LRZcuu ns5E7Nk PjwvdHI+AC00USLbFN95nSQ ebSNat8faeOy4YaRlCRIwWH K3jUogZBiaz7PcVNDmY76uu NUxn9M7 IGN (more content not included)... [facility] Consent Formson 07-11-2023 Consent Forms [id number] TGTIFF [facility] .Auto Diff 1on 07-06-2023 Auto Brown % 7 % Normal 06-17 [facility] Comment on above: Performed By: #### 2 [id number], [id number], 3789005038, 73150676, 5470743729, 3455619, 6912741724 #### [facility] (DEFAULT) [address] [place] [address] Baso Abs# 0.0 x10 Normal 0.0-0.2 [facility] Comment on above: Performed By: #### 2 [id number], [id number], 8551417631, 15508531, 0201899035, 3319724, 4966651040 #### [facility] (DEFAULT) [address] [place] [address] 70274 Basophils/100 WBC (Bld) 0.1 % Low 0.2-2.0 [facility] Comment on above: Performed By: #### 2 [id number], [id number], 0775000014, 01370469, 6894510433, 7740715, 5636984111 #### [facility] (DEFAULT) [address] [place] [address]3094 Eos Abs# 0.2 x10 Normal 0.0-0.4 [facility] Comment on above: Performed By: #### 2 2871939, 3719039962, 8553075701, 81659740, 6303433621, 6042508, 5830895591 #### [facility] (DEFAULT) [address] [place] [address] Eosinophils/100 WBC (Bld) 2.9 % Normal 0.9-4.0 [facility] Comment on above: Performed By: #### 2 0760035, 9733252220, 1074189865, 23611183, 7655216544, 5211250, 0223627991 #### [facility] (DEFAULT) [address] [place] [address] 63565 Lymph Abs# 1.7 x10 Normal 1.3-2.9 [facility] Comment on above: Performed By: #### 2 3088475, 8897151781, 0883209030, 24279090, 6494163821, 3880043, 2092512244 #### [facility] (DEFAULT) [address] [place] [address] 49960 Lymphocytes/100 WBC (Bld) 31 % Normal 14-48 [facility] Comment on above: Performed By: #### 2 9739173, 3977747605, 0078933711, 59226076, 1681153818, 2083373, 2433570907 #### [facility] (DEFAULT) [address] [place] [address] Brown Abs# 0.4 x10 Normal 0.0-0.8 [facility] Comment on above: Performed By: #### 2 4549107, 6096120088, 3188654992, 85350787, 0556812479, 1469403, 3726921805 #### [facility] (DEFAULT) [address] [place] [address] Neut Abs# 3.3 x10 Normal 1.5-9.2 [facility] Comment on above: Performed By: #### 2 1175832, 5810948563, 2529613328, 32359799, 6915299122, 5302666, 9629599096 #### [facility] (DEFAULT) [address] [place] [address] Neutrophils/100 WBC (Bld) 59 % Normal 44-88 [facility] Comment on above: Performed By: #### 2 3538794, 6823527686, 4238971238, 34110717, 3211180627, 0094304, 3447851440 #### [facility] (DEFAULT) [address] [place] [address] BNP.on 07-06-2023 Internal Control Pass Normal [facility] Comment on above: Performed By: #### 2 4174721, 9743382616, 7646006419, 36247498, 3822770318, 8936438, 1890661694 #### [facility] (DEFAULT) [address] [place] [address] Natriuretic peptide B (Bld) [Mass/Vol] 6.5 pg/mL Normal 0.0-100.0 [facility] Comment on above: Result Comment: BNP results greater than 100 pg/mL are considered abnormal and suggestive of patients with CHF. Higher BNP concentrations measured in the first 72 hours after an acute coronary syndorme are associated with an increased risk of , myocardial infarction, and CHF. Performed By: #### 2 3692685, 4827939928, 5397010528, 99548500, 1833157380, 3834089, 4780010272 #### [facility] (DEFAULT) [address] [place] [address] CBC w/ Auto Diffon 4 Erythrocyte distribution width (RBC) [Ratio] 13.0 % Normal 11.5-15.0 [facility] Comment on above: Performed By: #### 2 7273435, 1295076514, 1492992028, 98055291, 9796231851, 1910083, 1413228587 #### [facility] (DEFAULT) [address] [place] [address] Hematocrit (Bld) [Volume fraction] 43.9 % Normal 34.8-51.9 [facility] Comment on above: Performed By: #### 2 4965039, 1363037658, 9062605134, 55110642, 4883950228, 0038702, 3100885483 #### [facility] (DEFAULT) [address] [place] [address] Hemoglobin (Bld) [Mass/Vol] 14.9 g/dL Normal 11.8-17.7 [facility] Comment on above: Performed By: #### 2 9168785, 5380975879, 7683565380, 64052087, 9456846032, 8941354, 7560489381 #### [facility] (DEFAULT) [address] [place] [address] Man Diff? Auto Invalid Interpretation Code [facility] Comment on above: Performed By: #### 2 0898973, 3166274368, 3706041998, 73584901, 8025777210, 3242733, 8755482108 #### [facility] (DEFAULT) [address] [place] [address] MCH (RBC) [Entitic mass] 29 pg Normal 24-34 [facility] Comment on above: Performed By: #### 2 0745687, 7934151142, 8081143840, 26043305, 5408528571, 3488753, 8426179861 #### [facility] (DEFAULT) [address] [place] [address] MCHC (RBC) [Mass/Vol] 34 g/dL Normal 26-37 [facility] Comment on above: Performed By: #### 2 2362037, 1984209639, 7331282995, 25374669, 9815360356, 3691630, 4635029385 #### [facility] (DEFAULT) [address] [place] [address] MCV (RBC) [Entitic vol] 86 fL Normal 81-100 [facility] Comment on above: Performed By: #### 2 8822159, 4037326791, 1375799698, 50220897, 9181172061, 6691408, 9026099561 #### [facility] (DEFAULT) [address] [place] [address] Platelet 100 x10 Low 138-427 [facility] Comment on above: Performed By: #### 2 7266563, 9040028044, 8891820636, 98691209, 8868977864, 9941219, 2379401118 #### [facility] (DEFAULT) [address] [place] [address] Platelet mean volume (Bld) [Entitic vol] 10.9 fL High 6.3-10.2 [facility] Comment on above: Performed By: #### 2 1991666, 2747018440, 2805633943, 13413720, 6337924915, 2049810, 3543166799 #### [facility] (DEFAULT) [address] [place] [address] RBC 5.11 x10 Normal 3.70-5.30 [facility] Comment on above: Performed By: #### 2 6897831, 5084381471, 3744740413, 06206848, 5255360951, 9821225, 1931840218 #### [facility] (DEFAULT) [address] [place] [address] WBC 5.6 x10 Normal 3.5-10.5 [facility] Comment on above: Performed By: #### 2 5014274, 9876126585, 3818980286, 61458061, 1827899150, 5761323, 9291878088 #### [facility] (DEFAULT) [address] [place] [address] Standardon 07-06-2023 eGFR Non AA >60 Invalid Interpretation Code [facility] Comment on above: Performed By: #### 2 2469824, 4829848681, 6532535265, 47003218, 1549697724, 7079323, 3300007457 #### [facility] (DEFAULT) [address] [place] [address] eGFR AA >60 Invalid Interpretation Code [facility] Comment on above: Performed By: #### 2 2215195, 9550208031, 0383968437, 95657832, 4727142183, 5352129, 3666775838 #### [facility] (DEFAULT) [address] [place] [address] Albumin [Mass/Vol] 4.1 g/dL Normal 3.5-5.0 [facility] Comment on above: Performed By: #### 2 0295702, 7915628477, 0806092273, 77718796, 4747073712, 7967745, 2417268957 #### [facility] (DEFAULT) [address] [place] [address] Albumin/Globulin [Mass ratio] 1.4 {ratio} Normal 1.4-2.6 [facility] Comment on above: Performed By: #### 2 6709997, 9323352253, 0578755967, 16213778, 5265612106, 3654237, 5779449452 #### [facility] (DEFAULT) [address] [place] [address] Alk Phos 56 IU/L Normal 32-91 [facility] Comment on above: Performed By: #### 2 4540784, 9858613337, 1057797979, 59508176, 3850428369, 7722053, 9348428442 #### [facility] (DEFAULT) [address] [place] [address] ALT [Catalytic activity/Vol] 73.0 U/L High 17.0-63.0 [facility] Comment on above: Performed By: #### 2 9375950, 4734352999, 5122838286, 01026213, 0600880956, 6800125, 1574647968 #### [facility] (DEFAULT) [address] [place] [address] AST [Catalytic activity/Vol] 41 U/L Normal 15-41 [facility] Comment on above: Performed By: #### 2 2729321, 1330139273, 6575448323, 12349240, 4641239062, 5543755, 4380452264 #### [facility] (DEFAULT) [address] [place] [address] Bili Total 0.7 mg/dL Normal 0.3-1.2 [facility] Comment on above: Performed By: #### 2 1537984, 7427509252, 5920737139, 39725799, 3159725066, 8556617, 1491893966 #### [facility] (DEFAULT) [address] [place] [address] Creatinine [Mass/Vol] 0.92 mg/dL Normal 0.90-1.30 [facility] Comment on above: Performed By: #### 2 0055372, 8948840473, 1910357054, 68089384, 8215367396, 6987984, 2182375208 #### [facility] (DEFAULT) [address] [place] [address] Globulin (S) [Mass/Vol] 2.9 g/dL Normal 1.5-4.3 [facility] Comment on above: Performed By: #### 2 9910477, 2640909173, 2239079350, 08431117, 4657175257, 4861189, 1230843678 #### [facility] (DEFAULT) [address] [place] [address] Osmolality 284 mOsm/L Invalid Interpretation Code [facility] [facility] Comment on above: Performed By: #### 2 3604649, [id number], [id number], 89136663, 0983396302, 0846271, [id number] #### [facility] (DEFAULT) [address] [place] [address] 88851 Protein [Mass/Vol] 7.0 g/dL Normal 6.5-8.1 [facility] Comment on above: Performed By: #### 2 3352632, [id number], 4158287307, 37645509, 8772665290, 0379922, 6641238278 #### [facility] (DEFAULT) [address] [place] [address] 78775 Urea nitrogen [Mass/Vol] 25 mg/dL Normal 8-26 [facility] Comment on above: Performed By: #### 2 4353390, [id number], 7077426505, 18669971, 6428702310, 8887350, 5139610414 #### [facility] (DEFAULT) [address] [place] [address] 70717 Urea nitrogen/Creatinine [Mass ratio] 27.1 mg/mg High 4.6-16.2 [facility] Comment on above: Performed By: #### 2 7559161, 7085924202, 9892154812, 45142078, 1486856247, 4504403, 8092280107 #### [facility] (DEFAULT) [address] [place] [address] 27234 Anion gap [Moles/Vol] 9.7 mmol/L Normal 5.0-19.0 [facility] Comment on above: Performed By: #### 2 6785529, 7594811513, 2905140520, 06855352, 0104158060, 4325629, 2978159603 #### [facility] (DEFAULT) [address] [place] [address] 53129 Calcium [Mass/Vol] 9.1 mg/dL Normal 8.9-10.3 [facility] Comment on above: Performed By: #### 2 3301718, 8636269872, 3572670394, 25533481, 5763244315, 1448766, 2793034451 #### [facility] (DEFAULT) [address] [place] [address] 42602 Chloride [Moles/Vol] 105 mmol/L Normal 101-111 [facility] Comment on above: Performed By: #### 2 6462619, 5111190720, 2935166069, 05766962, 9959049405, 3580805, 3754852345 #### [facility] (DEFAULT) [address] [place] [address] 68175 CO2 [Moles/Vol] 29 mmol/L Normal 21-32 [facility] Comment on above: Performed By: #### 2 2294299, 3771748084, 2532484316, 83066648, 5836307451, 6396706, 4673059438 #### [facility] (DEFAULT) [address] [place] [address] 38614 Glucose [Mass/Vol] 112.0 mg/dL Normal 74.0-118.0 [facility] Comment on above: Performed By: #### 2 1489396, 0683701499, 3933586791, 11675476, 7462062037, 9385882, 4107719567 #### [facility] (DEFAULT) [address] [place] [address] 42810 Potassium [Moles/Vol] 3.7 mmol/L Normal 3.6-5.1 [facility] Comment on above: Performed By: #### 2 3013988, 1635151908, 5144994717, 27870204, 7488613939, 9134320, 1380589593 #### [facility] (DEFAULT) [address] [place] [address] 21196 Sodium [Moles/Vol] 140.0 mmol/L Normal 136.0-144.0 [facility] Comment on above: Performed By: #### 2 1724903, 6896162372, 4058839429, 90740735, 5157088812, 0159348, 2900122085 #### [facility] (DEFAULT) [address] [place] [address] 18341 Breakpoint Chem Normal [facility] Comment on above: Performed By: #### 2 4968253, 2262988874, 3314440146, 06209612, 4293612278, 5040183, 2013048740 #### [facility] (DEFAULT) [address] [place] [address] HgbA1c Standardon 07-06-2023 .Hb 16.8 Invalid Interpretation Code [facility] Comment on above: Performed By: #### 2 2647665, 0999040656, 2397076502, 35356856, 9526536344, 3642272, 0754060061 #### [facility] (DEFAULT) [address] [place] [address] .Hgb A1c 0.66 g/dL Invalid Interpretation Code [facility] Comment on above: Performed By: #### 2 7459578, 8753081457, 7264938959, 21848924, 0539278362, 7525739, 8920211242 #### [facility] (DEFAULT) [address] [place] [address] Glucose [Mass/Vol] 117 mg/dL Invalid Interpretation Code [facility] Comment on above: Performed By: #### 2 9355206, 2598575342, 1549014254, 63956588, 4034420897, 4072296, 0748726930 #### [facility] (DEFAULT) [address] [place] [address] HbA1c (Bld) [Mass fraction] 5.7 % Normal 4.6-6.2 [facility] Comment on above: Performed By: #### 2 5997543, 0426712503, 0789395168, 55387599, 7363076282, 6837068, 7165835367 #### [facility] (DEFAULT) [address] [place] [address] Iron Profileon 07-06-2023 Iron [Mass/Vol] 79.0 ug/dL Normal 45.0-182.0 [facility] Comment on above: Performed By: #### 2 6898003, 1881119680, 5562505200, 29898300, 8340893924, 7319509, 3311297083 ####[facility] (DEFAULT)[address] [place] [address] Iron Sat 20 % Normal 20-55 [facility] Comment on above: Performed By: #### 2 4323148, 2833114890, 2453335792, 24336254, 6976354250, 4437630, 5800879335 ####[facility] (DEFAULT)[address] [place] [address] 38033 TIBC 402 mcg/dL High 250-400 [facility] Comment on above: Performed By: #### 2 6245832, 6590471236, 4829038389, 20379499, 5421437692, 0367017, 3566656936 ####[facility] (DEFAULT)[address] [place] [address] 72361 Transferrin [Mass/Vol] 287.3 mg/dL Normal 180.0-329.0 [facility] Comment on above: Performed By: #### 2 5691080, 8108786032, 0305257336, 87190061, 3876207937, 9877499, 1720455752 ####[facility] (DEFAULT)[address] [place] [address] 29427 Lipid Panel Standard, [facility] 07-06-2023 Cholesterol [Mass/Vol] 154.0 mg/dL Normal 66.0-200.0 [facility] Comment on above: Performed By: #### 2 3152293, 4020235694, 2080142714, 47575783, 2689244127, 7408196, 2284077970 #### [facility] (DEFAULT) [address] [place] [address] 17165 Cholesterol in HDL [Mass/Vol] 35 mg/dL Low 40-71 [facility] Comment on above: Performed By: #### 2 2587732, 1284433317, 3168529451, 01442913, 3134298233, 3096450, 4678547397 #### [facility] (DEFAULT) [address] [place] [address] 21709 Cholesterol in LDL [Mass/Vol] 83 mg/dL Normal 1-100 [facility] Comment on above: Performed By: #### 2 2154058, 1648149961, 0304566286, 59280615, 8661123024, 6809886, 9618249595 #### [facility] (DEFAULT) [address] [place] [address] 73617 Cholesterol.total/Ch olesterol in HDL [Mass ratio] 4.3 {ratio} Normal 0.0-4.5 [facility] Comment on above: Performed By: #### 2 7853773, 2198910745, 9598372101, 19848210, 7711143797, 8517421, 8071056059 #### [facility] (DEFAULT) [address] [place] [address] Triglyceride [Mass/Vol] 177.0 mg/dL High 0.0-150.0 [facility] Comment on above: Performed By: #### 2 0881224, 9449250475, 6706127826, 13367681, 7485334283, 3618947, 1737555935 #### [facility] (DEFAULT) [address] [place] [address] 38833 VLDL. 35 mg/dL Normal 5-40 [facility] Comment on above: Performed By: #### 2 2986956, 2070534486, 2929028854, 27140277, 4186770987, 8695050, 6977979551 #### [facility] (DEFAULT) [address] [place] [address] 20293 Provider Orderson 07-06-2023 Provider Orders [id number] [id number] Normal [facility] LE Arterial Duplex Bilate ralon 07-06-2023 [...] Augusto Mensah MD 07/06/23 4:09 pm Technologist: JIM,PM [facility] US LE Venous Duplex Bilatera [...] Augusto Mensah MD 07/06/23 4:07 pm Technologist: JIM,PM [facility] Coding Summaryon 07-01-2023 Coding Summary HTMLBase 64 TyzfcuvaOBh8uJt+PGhlYWQ +WV2LMJMcR06yjPFipV6sB2 NMTElOSywgQVBQTElOSyIgb nUbQF2leJFwWANm IC8+OL7oOPHcVwfltTRyn8L 2gYP0P34uje0uKRtkyWT9VO JsRtJlgfovt0xwgXf8RErzL mluOyBt NEUbtL04HKN5zB68Gf01cEC sfTUen3ubhCa3HpJcTRRuPY Y2kGjoPAfcz9SqXEAdT05nc QMkv8O6 NGAxrSzllMTsOfVhpBH0aM5 pYUxurebht0yhaexvJrl5cw 05xBJxf3M0xDA4A9IxufV6Y GJvbGQg VrcsoEPAaZ3ivmcir6vziyk uBpEaRINvKCk1KOb1BWRuuQ nsDwUcWL53ZIZ6PEUlrvRpQ 2FsLWFs eGicNzH7x6V1Pb1GX9VXKwk kO3JUXPNPIZcrhYX+PC90cj 82D7AaNpenDmr2CJFnQZR7b LF2pL6q CJFySYxld3X6gPH2B7QhmsE thr6hk4pxJKKjJVxcJ64ipQ Vqd5C4XIRqoWJ0OXGqjHseT iBzaG93 Oyc+QPEwiHwkd5AjRyvkn2d iy1lpaZw4VskcCGKikvJekF csVPI7j4LdYq3sZJWruMB3v DD1kU2v VoNpUjA1REwpZ652GpFhuQG vAtlvU10bZ4DazZR+PHRyPj l7SVLcxWacXN3fJ7ZyXQWzz mctbGVm eFznUS7tAOLvteevZQJelR2 pJDWwH4n6DrMrQfP0NGztS2 AaWXXyxlnmBv99lX6dGkPaV yO1MLxu H9LnpcY8HDEmqWQjBHfvRCW 4Z14rl0Y8KBRuLUPwIRE1nI F2iL3flUnhcucgaBLkuYnru mVydGlj SWdgUOifD533MPFvnQokAjP vZGluZyBEYXRlOiAgMDEvMj YvMjAyNDwvdGQ+TYZpYOO8w WxlPSAn zDZcZPwxQu5mfRevqYkpED2 wPZJzlzegJRLrvS2gGBHruC EtfOvvVW7rGEClcbhol606I iAxMHB0 PGWeyAXlM3UwjV0kPiQeYCU xCDDeA8VsvGOzRRhmK068JD jaLuS9LYYcfhXnN8SrAXGwo WduOiB0 f0K0Pz4Pq4QrndgkY6XmrVA hCtPaEnpgWHh7O5ByUkvvyJ I+QE33MXPbLO52IXg3CAC0q WxlPSdi KUIeG7BswG7nKrLjDEMhWFO kOyc+PHRhYmxlIHdpZHRoPS tsKPVfKqWmtLnnZP2jPk1aR GVyLWNv hPwoyKThGoBsf3wjXFDlZHp zJU6hjGrnY7BgtQO6GMZvh4 p3Pc77X02aN9FfnPE+PGNvb BK7kLJ7 oU4rCdDzCdA2LWgoX736ZcN epHXeCvrqr3qxj0qxsDv1Sg Z8EZBvggXggMyrITQ3g7QxC x57A05d IHdpZHRoPSIxNSUiIHZhbGl rlk5jbE1rXe3+UZWysDD5fX N8gX5kRzMyTvB4PBptV876Z nRvcCIv Nxgql7fum7uzpPy4JuKtJRS qerNlmLxjKEV6t9EwEe32K7 XcjUyuh8XsAbj2oh04oBMho 0N0fMH7 Z6PyRAMszofciMDbiWhvKU1 zKTHtloclCTDkyD2hIJObJ0 i2DgYhFoF2XSjqB9ZausC3Q GJvbGQg PFKmkQODoM3jbbmuq4yvpnc gHfGoUDGbVVi6PSu4HSIhmJ odNdTmSGG8RyL1KAR2iQRwx T9xvEnz wbehiT5vYry+KWC5nIQimVK RGZ3yWmemhVF+RHLiKJS3vD mwUGhfHLCpbJ1iFOXcL9n4W iAwLjA1 YXonK4NiriA5ODPbgXEeKZW kyKJMwB4bpaupn2ptgfkiSb SkLOKsXCk2CVi9NLKbuVdwN iBsZWZ0 TeT9ZIW7gZJbeC1ueFsdrnz tgB0gQpd+KqwqjZmwXQY3IC c9O3WlMue1FBIjvFljPW7hc GFkZGlu Mm4yqHnwcXguBI5hSWSxrhy xe649KxLov0kyBFKprLZsHX uhWHR2P28yd6R8IWEuPDKiV IB3lEM3 oM6yiHpmetdmrSSuuApwtjI hiXlhBEueQJytQ499OGBfqN rgYgClFCk5G9OlYii9HVTal BrnTV9w zOPsOYrhHe4adSdtvAktDV2 yKXOkvemqa316YbOys4qdIN FzpGPtOGtqKGX1M22wh9O5D CMwMDAw VTB9lPD2dB4siWrprmtyePQ mdDsgdmVydGljYWwtYWxpZ2 11VMEwvPqiGzVhsIr0F1DjK pg7VGOv dDocCU3gxQZiBOfwPb1ubRo tdNvrKB3zVIPydzidm844Pr Xdx7lbBLYvnFKoALgvSUF8W 09ti8S5 IIWwRDRbXXG0mJC4aX7ekQb nbjogbGVmdDsgdmVydGljYW foECvmC447DLFvwZleGnNtn GllbnQg CSglOCs6J5IvZfsuiQE+PC9 7OJJgLY40aUWivVCri5rpbZ i7JtYrERFsEVV1mEygTWrwu 3JkZXIt Q42umVPme7R6WLGlnAurpSC jBvFieMC3yH2mICzvlyzoe9 awpsidIzytj7dnlb37xV90K 29sIHdp ZHRoPSIzMCUiIHZhbGlnbj0 ftQ4kOq2+WHAkiIX7wBX9rH 9xRSPfWzW7THyyY907QoEuf CIvPjxj d0aoh0uepIa5JdF9HRYncnL chFknXYQ4d1NyDr27I15nCV dpZHRoPSIyMCUiIHZhbGlnb r3xiC4e Ii8+YBYwhNM5aIZ6zP3rYsK rWqC4TXhrD048KzThuGRnSv ugV82zI5LjwON+LPJkAji5W CBzdHls VC6cxDEqQGziOc8wLZQ8TnT jUhRrYFshH2SnXANvrebxqe rrqFP4LFIoXZSfiZ23Ee2ew DogMTBw oKQRfT7azvfhq7whumhrFxY mPHRyVAp0ZOc7WBAhaXqnJj JeKRR2AyW6TDV9eZZceU2td Glnbjog cX0qS7UoVYTcnyrfQy33lE7 gJsFxQnG3RSinCub+U0FNUy wgQUxFWEFOREVSIExFRTwvd GQ+PHRk WAP5wKofWHihUGLzkY1dWAT nV5j5YfXbWmW9NKfoB2IzXT DgebauNn13mQ3aZoXiMbO0B LrxH5Xr mrX7DMDkzTNqSLlaBLG4Q94 jc8N9LESaVRUiLLT3eNR5lB 1hbGlnbjogbGVmdDsgdmVyd GljYWwt KFfiT300VVJgeQksYwFmWlA 1RsG9Mkg4U9OhEkr0NHAzdP ylLA5mqHWhWNknLb6xlRmmd LwqMT0b EQUnaotbVOLonX1kKQJivNY euUbqBZ3oOEZtsjljl898Ju ZxKJH6CTIkpRDuL4QrnU0kJ iAjMDAw FSDzU3FmeUYjHIjdN871QXv pDnX9CBGtooNqW1InCWZbaO pxFwV0s7X5Kz95YSNXNBGpy zwvdGQ+ EVQbSXD0eKhkDFbvXNRgvK6 bTFRfI4g0OaLcPsQ9MDepR4 DaAUApubtkHg71mR7jEcDtS tA8KJba V5PdttJ2DJQwuEVdSPsrNTA 1B46xn3M8UCSwTRHeLKW2sG A6vJ7feOktiiairLHpwDnbx mVydGlj XLqnQDamH642DZHtsIenEw6 EDGY9S4DrQsh9NKChlXccQS 2ckAWdSDxmMe4glUdoeStbT C4dZBUt gjbrEQCoiJ3kSCVinWVlcHq iQP3sALHhnzjzd640JmEvNG E9TZWbfHWyE6NxpP5iTcQeS DAwMDAw K1QxjDLnGGvrS730ZDqhRqD 8EUBouwWrM2LrWGKprSxdTg D0r6P9Ia8RNUmurPU+PC90c o05P8Lt HgxeVlv8RDAyICJ0nYT1rG1 qTSNpQDjrg5L2hJB0Y7Ldbd Ixnx3uu5siWIGgIBtmF30en MHaf5L4 GWDvtYU6HZVhnQslPbVuuY5 3Oyc+SIXkvGamx4HtUebrx7 ulq9gaxEo6NnZuLFGcxiOpt WduPSJ0 z8AqDz01M86gEGkbUDCzOPT vPOUoBYDuiPwnul2sdH1zPu 8+HJXgsQX8tZC6mR2yOaKbK oT4NDzl B555GcGpiQOoSagcy2xka9z nePc1EaNbKPFygsCxpAsvIA E0k0AsNz24U8ZtoAxqu9NlW dl6hk87 aXZkr7A5cOG8T5XdVIUcevo dvQHvlUpoCT1yKCEtnpmcVX GupK6cCYNkJ5z5SdJyQkA7R XalO0Jv ldA2NJLuuXFqXVJzrWTXwG3 mgyypo9hcklxmNqUvUHUoIP f5RQh2UFAeiTkoJaCbCJT4S fM7RZE2 iWAbqG7anBqcmmpttS5mWzs +NRi6t8fdmYFcPG1wwVX1VU 88WE67dRDpe3L0uXL1D1GbK GRpbmct cbiuyGA1JMAlWXRqqD31Oe5 ewIigOw9dVYXcNOM2KYGauW FpI4MjuI9bPzGhPXGvHQHyC 3RleHQt NFwoF616WDyeMtU5OJVeseY zN6NuIHEozExcRvO4f0Z4Yr 4IKR26US81BN05bVPmq6X2y TK0I6Yd RMOkluejvwfihAD6SURoGMB smO11Wg2zjBfyRn5uHMFnDJ Q1THYkpDJeR9MhwN6vFcApM DAwMDAw Y9IfiZReUNifR508XDmvGxT 0TQYvphGqC0CnXWJsgKsuCw X7i9B4Xx1JSx59QF11SN36w FWma2J1 lWB1P8VoGBHocqnziqmufIH 3KVFoRKOerC43Ho0jdBmmYm 8xNUIwKJB0TFZeeHGtW5Dtv F7zPlKh KEOsXSDfY5ZevIVdNXwvX11 4IQwjAkA2NQNpykWxO4YxBW YcnNgdEeU6y3M2Wu4MHYlan rb5Y6Nj PjwvdHI+RJ15ORDxIW70oPE ssNGnr0lyeEn0SlGoHPSxHD Z3aCpaMYbel1PzXTJiY02gh MThl3E7 IGN (more content not included)... [facility] Provider Orderson 06-24-2023 Provider Orders [id number] TGTIFF [facility] ED Clinical Summaryon 2023 ED Clinical Summary [facility] ? Urgent Care [address] [place] [address] Clinical Summary PERSON INFORMATION Name: SPIKE NIELSEN Age: 43 Years Sex: MALE : 1980 MRN: Acct#: Visit Reason: UC - Skin Problem: simple; RIGHT LEG WOUND CHECK Arrival: 06/16/2023 13:33:24 Discharge: 06/16/2023 14:24:00 LOS: 000 00:51 Check In: 06/16/2023 13:33:24 Checkout: 06/16/2023 14:24:00 Address: [address] [address] PCP: Provider, None PROVIDER INFORMATION Provider Role Assigned Unassigned Anila Rubio CONVENTION SERVICES MANAGER Nurse 06/16/2023 13:35:32 [facility] Ogden ED [facility] [address] [place] [address] PATIENT DISCHARGE INSTRUCTIONS Patient Information Name: SPIKE [...] at home: Medicines ? Take or apply duxn-xgr-jmdwqor and prescription medicines only as told by [...] 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 It is important for you to follow up with a doctor, nurse practitioner, or physician?s veterinary assistant technician for ongoing care. If your symptoms become [...] so we can reach you if necessary. [facility] has provided you with a complete list of medications post discharge. Please inform your carding doubler/provider of your visit and for further instruction on these medications. Any specific questions regarding your chronic medications and dosages should be discussed with your primary care physician(s) and/or pharmacist. New Medications [facility] [address], [place] [id number], [phone] mupirocin topical (mupirocin 2% topical ointment) 1 [...] Diastolic Blood Pressur (more content not included)... [facility] 04-14-2023 [facility] Telephone (RidangoI) SPIKE NIELSEN ([id number]) 1980 M Date Time Provider Department 04/14/23 FADI ROBERSON [facility] During your visit today, we recorded the following information about you: Fadi Roberson RN 04/14/2023 5:14 PM Signed [facility] COORDINATION TELEPHONE ENCOUNTER Pt mother is helping him. [facility] with call back number Allergies As [...] once daily. - famotidine/Ca carb/mag hydrox (ACID PHYSICAL OPTICS TEACHER COMPLETE, FAMOT, ORAL) Take 1 tablet by mouth twice daily. - B Complex Vitamins capsule Take 1 capsule by mouth once daily. - en-xut-jcoqs acid-lutein (CENTRUM SILVER) 400-250 mcg chew Take [...] Encounter Status:Closed by FADI ROBERSON on 04/14/23 [facility] Fozia 01-28-2023 [facility] Telephone ([facility]) MORALESSPIKE Mcguire ([id number]) 1980 M Date Time Provider Department 01/28/23 [...] once daily. - famotidine/Ca carb/mag hydrox (ACID PHYSICAL OPTICS TEACHER COMPLETE, FAMOT, ORAL) Take 1 tablet by mouth twice daily. - B Complex Vitamins capsule Take 1 capsule by mouth once daily. 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 - famotidine/Ca carb/mag hydrox (ACID PHYSICAL OPTICS TEACHER COMPLETE, FAMOT, ORAL) Take 1 tablet by mouth twice daily. - B Complex Vitamins capsule Take 1 capsule by mouth once daily. - lt-vdy-oxlvy acid-lutein (CENTRUM SILVER) 400-250 mcg chew Take [...] Encounter Status:Closed by MINAL PUGA on 01/22/23 Normal [facility] CNOVon 01-20-2023 CNOV Office Visit (GENN ) SPIKE NIELSEN ([id number]) 1980 M Date Time Provider Department 01/20/23 [...] No Zahraa Stovall 01/20/2023 9:13 AM Signed [facility] Abdominal [facility] - HISTORY AND PHYSICAL Chief [...] previous operations include: - lap maureen w/ IO, primary repair of 2x2 umbilical hernia 06/2019 [...] mouth once daily. famotidine/Ca carb/mag hydrox (ACID PHYSICAL OPTICS TEACHER COMPLETE, FAMOT, ORAL) Take 1 tablet by mouth twice daily. B Complex Vitamins capsule Take 1 capsule by mouth once daily. ik-owt-rmynk acid-lutein (CENTRUM SILVER) 400-250 mcg chew Take [...] not in (more content not included)... Normal [facility] CT ABD WOon 06-23-2020 CT ABD [...] caval space similar to prior exam. Normal [facility] CBC w/Auto Differentialon Anemia WOMENS VOLLEYBALL COACH Normal [facility] Comment on above: Performed By: #### C BC #### [facility] [address] [place] [address] Anisocytosis Ql (Bld) [employer]OMENS VOLLEYBALL COACH Normal [facility] Comment on above: Performed By: #### C BC #### [facility] [address] [place] [address] Basophils Abs. # 0.0 K/uL Normal 0.0-0.1 [facility] Comment on above: Performed By: #### C BC #### [facility] [address] [place] [address] Basophils/100 WBC (Bld) 0.3 % Normal 0.2-1.0 [facility] Comment on above: Performed By: #### C BC #### [facility] [address] [place] [address] Basophils/100 WBC (Bld) [employer] Normal [facility] Comment on above: Performed By: #### C BC #### [facility] [address] [place] [address] Bosophillia # [employer] Normal [facility] Comment on above: Performed By: #### C BC #### [facility] [address] [place] [address] Eosinophils (Bld) [#/Vol] 0.0 10*3/uL Normal 0.0-0.2 [facility] Comment on above: Performed By: #### C BC #### [facility] [place] [address] Eosinophils (Bld) [#/Vol] [employer] Normal [facility] Comment on above: Performed By: #### C BC #### [facility] [place] [address] [facility] [place] [address] Eosinophils/100 WBC (Bld) 0.2 % Low 0.9-2.9 [facility] Comment on above: Performed By: #### C BC #### [facility] [place] [address] [facility] [place] [address] Eosinophils/100 WBC (Bld) [employer] Normal [facility] Comment on above: Performed By: #### C BC #### [facility] [address] [place] [address] Erythocytosis [employer] Normal [facility] Comment on above: Performed By: #### C BC #### [facility] [address] [facility] [address] Erythrocyte distribution width (RBC) [Ratio] 13.5 % Normal 11.5-14.5 [facility] Comment on above: Performed By: #### C BC #### [facility] [address] [facility] [place] [address] Hematocrit (Bld) [Volume fraction] 41.8 % Normal 36.7-50.6 [facility] Comment on above: Performed By: #### C BC #### [facility] [address] [facility] [place] [address] Hemoglobin (Bld) [Mass/Vol] 14.0 g/dL Normal 12.4-17.3 [facility] Comment on above: Performed By: #### C BC #### [facility] [address] [facility] [place] [address] Hypochromia [employer] Normal [facility] Comment on above: Performed By: #### C BC #### [facility] [place] [address] [place] [address] Large Platelets [employer] Normal [facility] Comment on above: Performed By: #### C BC #### [facility] [place] [address] [place] [address] Leukocytosis [employer] Normal [facility] Comment on above: Performed By: #### C BC #### [facility] [place] [address] [place] [address] Leukopenia [employer] Normal [facility] Comment on above: Performed By: #### C BC #### [facility] [place] [address] [place] [address] Lymphocytes (Bld) [#/Vol] 1.0 10*3/uL Low 1.3-2.9 [facility] Comment on above: Performed By: #### C BC #### [facility] [place] [address] [place] [address] Lymphocytes (Bld) [#/Vol] [employer] Normal [facility] Comment on above: Performed By: #### C BC #### [facility] [place] [address] [place] [address] Lymphocytes/100 WBC (Bld) [employer] Normal [facility] Comment on above: Performed By: #### C BC #### [facility] [place] [address] [place] [address] Lymphocytes/100 WBC (Bld) 26.9 % Normal 17.0-45.5 [facility] Comment on above: Performed By: #### C BC #### [facility] [place] [address] [place] [address] Lymphocytosis # [employer] Normal [facility] Comment on above: Performed By: #### C BC #### [facility] [address] [place] [address] Lymphocytosis % [employer] Normal [facility] Comment on above: Performed By: #### C BC #### [facility] [address] [place] [address] Macrocytosis [employer] Normal [facility] Comment on above: Performed By: #### C BC #### [facility] [address] [place] [address] MCH (RBC) [Entitic mass] 29.2 pg Normal 27.0-31.0 [facility] Comment on above: Performed By: #### C BC #### [facility] [address] [place] [address] MCHC (RBC) [Mass/Vol] 33.5 g/dL Normal 33.0-37.0 [facility] Comment on above: Performed By: #### C BC #### [facility] [address] [place] [address] MCV (RBC) [Entitic vol] 87.0 fL Normal 80.0-94.0 [facility] Comment on above: Performed By: #### C BC #### [facility] [address] [facility] [place] [address] Microcytosis [employer] Normal [facility] Comment on above: Performed By: #### C BC #### [facility] [address] [place] [address] Monocytes (Bld) [#/Vol] 0.3 10*3/uL Normal 0.3-0.8 [facility] Comment on above: Performed By: #### C BC #### [facility] [address] [place] [address] Monocytes/100 WBC (Bld) 7.1 % Normal 5.5-11.7 [facility] Comment on above: Performed By: #### C BC #### [facility] [place] [address] [place] [address] Monocytosis % [employer] Normal [facility] Comment on above: Performed By: #### C BC #### [facility] [place] [address] [place] [address] Neutropenia # [employer] Normal [facility] Comment on above: Performed By: #### C BC #### [facility] [place] [address] [place] [address] Neutropenia % [employer] Normal [facility] Comment on above: Performed By: #### C BC #### [facility] [place] [address] [place] [address] Neutrophils (Bld) [#/Vol] [employer] Normal [facility] Comment on above: Performed By: #### C BC #### [facility] [place] [address] [place] [address] Neutrophils Abs. # 2.4 K/uL Normal 2.2-4.8 [facility] Comment on above: Performed By: #### C BC #### [facility] [place] [address] [place] [address] Neutrophils/100 WBC (Bld) [employer] Normal [facility] Comment on above: Performed By: #### C BC #### [facility] [place] [address] [place] [address] Neutrophils/100 WBC (Bld) 65.5 % High 43.0-65.0 [facility] Comment on above: Performed By: #### C BC #### [facility] [place] [address] [place] [address] Nucleated RBC (Bld) [#/Vol] 0.0 10*3/uL Normal [facility] Comment on above: Performed By: #### C BC #### [facility] [place] [address] [place] [address] Nucleated RBC/100 WBC (Bld) [Ratio] 0.0 % Normal [facility] Comment on above: Performed By: #### C BC #### [facility] [place] [address] [place] [address] Pancytopenia [employer] Normal [facility] Comment on above: Performed By: #### C BC #### [facility] [place] [address] [place] [address] Platelet mean volume (Bld) [Entitic vol] 10.7 fL High 7.4-10.4 [facility] Comment on above: Performed By: #### C BC #### [facility] [place] [address] [place] [address] Platelets (Bld) [#/Vol] 91 10*3/uL Low 148-402 [facility] Comment on above: Performed By: #### C BC #### [facility] [place] [address] [place] [address] Poikilocytosis [employer] Normal [facility] Comment on above: Performed By: #### C BC #### [facility] [place] [address] [place] [address] RBC (Bld) [#/Vol] 4.80 10*6/uL Normal 4.13-5.69 [facility] Comment on above: Performed By: #### C BC #### [facility] [place] [address] [place] [address] Small Platelets [employer] Normal [facility] Comment on above: Performed By: #### C BC #### [facility] [place] [address] [facility] [place] [address] Thrombocytopenia [employer] Normal [facility] Comment on above: Performed By: #### C BC #### [facility] [place] [address] [facility] [place] [address] Thrombocytopenia. [employer] Normal [facility] Comment on above: Performed By: #### C BC #### [facility] [place] [address] [facility] [place] [address] Thrombocytosis [employer] Normal [facility] Comment on above: Performed By: #### C BC #### [facility] [address] [place] [address] WBC (Bld) [#/Vol] 3.7 10*3/uL Normal 3.6-10.8 [facility] Comment on above: Performed By: #### C BC #### [facility] [address] [place] [address] Comprehensive Metabolic Pane patel 04-21-2020 Albumin [Mass/Vol] 3.7 g/dL Normal 3.4-5.0 [facility] Comment on above: Performed By: #### C MP #### [facility] [place] [address] [facility] [place] [address] Albumin/Globulin [Mass ratio] 1.4 {ratio} Normal 1.1-2.5 [facility] Comment on above: Performed By: #### C MP #### [facility] [place] [address] [place] [address] ALP [Catalytic activity/Vol] 70 U/L Normal 54-112 [facility] Comment on above: Performed By: #### C MP #### [facility] [place] [address] [facility] [place] [address] ALT [Catalytic activity/Vol] 94 U/L High 13-66 [facility] Comment on above: Performed By: #### C MP #### [facility] [place] [address] [facility] [place] [address] Anion gap [Moles/Vol] 9.1 mmol/L Normal 8.0-16.0 [facility] Comment on above: Performed By: #### C MP #### [facility] [place] [address] [facility] [place] [address] AST [Catalytic activity/Vol] 33 U/L Normal 3-39 [facility] Comment on above: Performed By: #### C MP #### [facility] [address] [place] [address] Bilirubin Ql (U) 0.37 mg/dL Normal 0.00-0.99 [facility] Comment on above: Performed By: #### C MP #### [facility] [address] [facility] [place] [place] [address] Calcium [Mass/Vol] 8.8 mg/dL Normal 8.2-10.0 [facility] Comment on above: Performed By: #### C MP #### [facility] [address] [facility] [place] [address] Chloride [Moles/Vol] 109 mmol/L Normal 94-110 [facility] Comment on above: Performed By: #### C MP #### [facility] [place] [address] [facility] [place] [address] CO2 [Moles/Vol] 31 mmol/L Normal 21-34 [facility] Comment on above: Performed By: #### C MP #### [facility] [address] [place] [address] Creatinine [Mass/Vol] 0.71 mg/dL Normal 0.50-1.17 [facility] Comment on above: Performed By: #### C MP #### [facility] [address] [place] [address] GFR/1.73 sq M predicted among blacks MDRD (S/P/Bld) [Vol rate/Area] mL/min/{1.73_m2} Normal >60 [facility] Comment on above: Result Comment: Director Data Processing eliana Kidney Disease less than 60 mL/min/1.73 m2 Kidney Failure less than 15 mL/min/1.73 m2 Average estimated GFR by age: 40-49 years 99 mL/min/1.73 m2 Performed By: #### C MP #### [facility] [address] [place] [address] GFR/1.73 sq M predicted among non-blacks MDRD (S/P/Bld) [Vol rate/Area] mL/min/{1.73_m2} Normal >60 [facility] Comment on above: Performed By: #### C MP #### [facility] [address] [place] [address] Globulin (S) [Mass/Vol] 2.6 g/dL Normal 1.5-4.5 [facility] Comment on above: Result Comment: CO RRECTED REPORT: Previous result was 2.7 at 13:04 on 04/21/20 Performed By: #### C MP #### [facility] [address] [place] [address] Glucose [Mass/Vol] 112 mg/dL High 65-100 [facility] Comment on above: Performed By: #### C MP #### [facility] [address] [place] [address] Potassium [Moles/Vol] 4.1 mmol/L Normal 3.3-5.1 [facility] Comment on above: Performed By: #### C MP #### [facility] [address] [place] [address] Protein [Mass/Vol] 6.3 g/dL Normal 6.1-8.2 [facility] Comment on above: Performed By: #### C MP #### [facility] [address] [place] [address] Sodium [Moles/Vol] 145 mmol/L Normal 132-145 [facility] Comment on above: Performed By: #### C MP #### [facility] [address] [place] [address] Urea nitrogen [Mass/Vol] 19.2 mg/dL Normal 3.2-26.9 [facility] Comment on above: Performed By: #### C MP #### [facility] [address] [place] [address] Urea nitrogen/Creatinine [Mass ratio] 27 mg/mg High 6-20 [facility] Comment on above: Performed By: #### C MP #### [facility] [address] [place] [address] Hemoglobin A1con 04-21-2020 HbA1c (Bld) [Mass fraction] 5.6 % Normal 4.8-5.6 [facility] Comment on above: Result Comment: Pred iabetes: 5.7 - 6.4 Diabetes: >6.4 Glycemic control for adults with diabetes: <7.0 Performed at: [facility] [id number] Pharmacy Aide: Romulo Peng PhD, Phone: [phone] Performed By: #### H A1C #### [facility] [address] [place] [address] Lipid Panelon 04-21-2020 Cholesterol [Mass/Vol] 121 mg/dL Normal 0-200 [facility] Comment on above: Performed By: #### L IPID #### [facility] [place] [address] [facility] [place] [address] Cholesterol in HDL [Mass/Vol] 37 mg/dL Low 39-96 [facility] Comment on above: Performed By: #### L IPID #### [facility] [place] [address] [facility] [place] [place] [address] Cholesterol in LDL [Mass/Vol] 55 mg/dL Normal 0-99 [facility] Comment on above: Performed By: #### L IPID #### [facility] [place] [address] [facility] [place] [place] [address] Cholesterol in LDL/Cholesterol in HDL [Mass ratio] 1.5 mg/dL Normal 0.0-3.6 [facility] Comment on above: Performed By: #### L IPID #### [facility] [place] [address] [facility] [place] [address] Cholesterol in VLDL [Mass/Vol] 29 mg/dL Normal 5-40 [facility] Comment on above: Performed By: #### L IPID #### [facility] [place] [address] [facility] [place] [address] Cholesterol.total/Ch olesterol in HDL [Mass ratio] 3.3 {ratio} Normal 0.0-5.0 [facility] Comment on above: Performed By: #### L IPID #### [facility] [place] [address] [facility] [place] [address] Triglyceride [Mass/Vol] 146 mg/dL Normal 0-149 [facility] Comment on above: Result Comment: 150- 199 Borderline High 200-499 High >499 Very High Performed By: #### L IPID #### [facility] [address] [place] [address] Thyroid Only Profileon Thyroid Only Comment: see below Normal [facility] Comment on above: Result Comment: Jj ramos December 16, the Thyroid Only has been changed. Please consult the back of our lab requisition. Performed By: #### C BC #### [facility] [address] [place] [address] TSH, 3rd Generation 1.740 uIU/L Normal 0.358-3.740 [facility] Comment on above: Result Comment: NOTE -Dietary supplements containing high biotin levels may cause significant interference with affected lab tests, including cardiovascular diagnostic tests and hormone tests that use biotin technology. Incorrect test results may be generated if there is biotin in the patients specimen. Performed By: #### C BC #### [facility] [address] [place] [address] ALT (SGPT)on 12-03-2019 ALT [Catalytic activity/Vol] 93 U/L High 13-66 [facility] Comment on above: Performed By: #### A LT #### [facility] [address] [place] [address] AST (SGOT)on 12-03-2019 AST [Catalytic activity/Vol] 39 U/L Normal 3-39 [facility] Comment on above: Performed By: #### A ST #### [facility] [address] [place] [address] BILATERAL ANKLE MIN 3 VIEWSo n 12-03-2019 [...] MRI of the most affected ankle. Normal [facility] Basic Metabolic Panelon 11-05 Anion gap [Moles/Vol] 12.1 mmol/L Normal 8.0-16.0 [facility] Comment on above: Performed By: #### B MP #### [facility] [address] [place] [address] Calcium [Mass/Vol] 9.0 mg/dL Normal 8.2-10.0 [facility] Comment on above: Performed By: #### B MP #### [facility] [address] [place] [address] Chloride [Moles/Vol] 107 mmol/L Normal 94-110 [facility] Comment on above: Performed By: #### B MP #### [facility] [address] [place] [address] CO2 [Moles/Vol] 27 mmol/L Normal 21-34 [facility] Comment on above: Performed By: #### B MP #### [facility] [address] [place] [address] Creatinine [Mass/Vol] 0.93 mg/dL Normal 0.50-1.17 [facility] Comment on above: Performed By: #### B MP #### [facility] [address] [place] [address] GFR/1.73 sq M predicted among blacks MDRD (S/P/Bld) [Vol rate/Area] mL/min/{1.73_m2} Normal >60 [facility] Comment on above: Result Comment: Director Data Processing eliana Kidney Disease less than 60 mL/min/1.73 m2 Kidney Failure less than 15 mL/min/1.73 m2 Average estimated GFR by age: 40-49 years 99 mL/min/1.73 m2 Performed By: #### B MP #### [facility] [address] [place] [address] GFR/1.73 sq M predicted among non-blacks MDRD (S/P/Bld) [Vol rate/Area] mL/min/{1.73_m2} Normal >60 [facility] Comment on above: Performed By: #### B MP #### [facility] [address] [place] [address] Glucose [Mass/Vol] 95 mg/dL Normal 65-100 [facility] Comment on above: Performed By: #### B MP #### [facility] [address] [place] [address] Potassium [Moles/Vol] 4.1 mmol/L Normal 3.3-5.1 [facility] Comment on above: Performed By: #### B MP #### [facility] [address] [place] [address] Sodium [Moles/Vol] 142 mmol/L Normal 132-145 [facility] Comment on above: Performed By: #### B MP #### [facility] [place] [address] [place] [address] Urea nitrogen [Mass/Vol] 16.6 mg/dL Normal 3.2-26.9 [facility] Comment on above: Performed By: #### B MP #### [facility] [place] [address] [facility] [place] [place] [address] Urea nitrogen/Creatinine [Mass ratio] 18 mg/mg Normal 6-20 [facility] Comment on above: Performed By: #### B MP #### [facility] [address] [place] [address] CBC w/Auto Differentialon Anemia [employer] Normal [facility] Comment on above: Performed By: #### C BC #### [facility] [place] [address] [facility] [place] [address] Anisocytosis Ql (Bld) [employer] Normal [facility] Comment on above: Performed By: #### C BC #### [facility] [place] [address] [place] [place] [address] Basophils Abs. # 0.0 K/uL Normal 0.0-0.1 [facility] Comment on above: Performed By: #### C BC #### [facility] [place] [address] [facility] [place] [address] Basophils/100 WBC (Bld) 0.3 % Normal 0.2-1.0 [facility] Comment on above: Performed By: #### C BC #### [facility] [place] [address] [facility] [place] [address] Basophils/100 WBC (Bld) [employer] Normal [facility] Comment on above: Performed By: #### C BC #### [facility] [place] [address] [facility] [place] [address] Bosophillia # [employer] Normal [facility] Comment on above: Performed By: #### C BC #### [facility] [place] [address] [facility] [place] [address] Eosinophils (Bld) [#/Vol] [employer] Normal [facility] Comment on above: Performed By: #### C BC #### [facility] [place] [address] [facility] [place] [address] Eosinophils (Bld) [#/Vol] 0.0 10*3/uL Normal 0.0-0.2 [facility] Comment on above: Performed By: #### C BC #### [facility] [place] [address] [place] [address] Eosinophils/100 WBC (Bld) [employer] Normal [facility] Comment on above: Performed By: #### C BC #### [facility] [place] [address] [place] [address] Eosinophils/100 WBC (Bld) 0.2 % Low 0.9-2.9 [facility] Comment on above: Performed By: #### C BC #### [facility] [place] [address] [facility] [place] [address] Erythocytosis [employer] Normal [facility] Comment on above: Performed By: #### C BC #### [facility] [place] [address] [facility] [place] [address] Erythrocyte distribution width (RBC) [Ratio] 13.4 % Normal 11.5-14.5 [facility] Comment on above: Performed By: #### C BC #### [facility] [place] [address] [facility] [place] [address] Hematocrit (Bld) [Volume fraction] 45.8 % Normal 36.7-50.6 [facility] Comment on above: Performed By: #### C BC #### [facility] [place] [address] [place] [address] Hemoglobin (Bld) [Mass/Vol] 15.6 g/dL Normal 12.4-17.3 [facility] Comment on above: Performed By: #### C BC #### [facility] [place] [address] [place] [address] Hypochromia [employer] Normal [facility] Comment on above: Performed By: #### C BC #### [facility] [place] [address] [place] [address] Large Platelets [employer] Normal [facility] Comment on above: Performed By: #### C BC #### [facility] [place] [address] [place] [address] Leukocytosis [employer] Normal [facility] Comment on above: Performed By: #### C BC #### [facility] [place] [address] [place] [address] Leukopenia [employer] Normal [facility] Comment on above: Performed By: #### C BC #### [facility] [place] [address] [place] [address] Lymphocytes (Bld) [#/Vol] [employer] Normal [facility] Comment on above: Performed By: #### C BC #### [facility] [place] [address] [facility] [place] [address] Lymphocytes (Bld) [#/Vol] 1.7 10*3/uL Normal 1.3-2.9 [facility] Comment on above: Performed By: #### C BC #### [facility] [place] [address] [place] [address] Lymphocytes/100 WBC (Bld) 33.3 % Normal 17.0-45.5 [facility] Comment on above: Performed By: #### C BC #### [facility] [place] [address] [place] [address] Lymphocytes/100 WBC (Bld) [employer] Normal [facility] Comment on above: Performed By: #### C BC #### [facility] [place] [address] [place] [address] Lymphocytosis # [employer] Normal [facility] Comment on above: Performed By: #### C BC #### [facility] [place] [address] [place] [address] Lymphocytosis % [employer] Normal [facility] Comment on above: Performed By: #### C BC #### [facility] [address] [facility] [place] [address] Macrocytosis [employer] Normal [facility] Comment on above: Performed By: #### C BC #### [facility] [address] [place] [address] MCH (RBC) [Entitic mass] 29.4 pg Normal 27.0-31.0 [facility] Comment on above: Performed By: #### C BC #### [facility] [address] [place] [address] MCHC (RBC) [Mass/Vol] 34.0 g/dL Normal 33.0-37.0 [facility] Comment on above: Performed By: #### C BC #### [facility] [address] [place] [address] MCV (RBC) [Entitic vol] 86.2 fL Normal 80.0-94.0 [facility] Comment on above: Performed By: #### C BC #### [facility] [address] [place] [address] Microcytosis [employer] Normal [facility] Comment on above: Performed By: #### C BC #### [facility] [address] [place] [address] Monocytes (Bld) [#/Vol] 0.4 10*3/uL Normal 0.3-0.8 [facility] Comment on above: Performed By: #### C BC #### [facility] [address] [place] [address] Monocytes/100 WBC (Bld) 7.6 % Normal 5.5-11.7 [facility] Comment on above: Performed By: #### C BC #### [facility] [place] [address] [place] [address] Monocytosis % [employer] Normal [facility] Comment on above: Performed By: #### C BC #### [facility] [place] [address] [place] [address] Neutropenia # [employer] Normal [facility] Comment on above: Performed By: #### C BC #### [facility] [place] [address] [place] [address] Neutropenia % [employer] Normal [facility] Comment on above: Performed By: #### C BC #### [facility] [place] [address] [place] [address] Neutrophils (Bld) [#/Vol] [employer] Normal [facility] Comment on above: Performed By: #### C BC #### [facility] [place] [address] [place] [address] Neutrophils Abs. # 2.9 K/uL Normal 2.2-4.8 [facility] Comment on above: Performed By: #### C BC #### [facility] [place] [address] [place] [address] Neutrophils/100 WBC (Bld) 58.6 % Normal 43.0-65.0 [facility] Comment on above: Performed By: #### C BC #### [facility] [place] [address] [place] [address] Neutrophils/100 WBC (Bld) [employer] Normal [facility] Comment on above: Performed By: #### C BC #### [facility] [place] [address] [place] [address] Nucleated RBC (Bld) [#/Vol] 0.0 10*3/uL Normal [facility] Comment on above: Performed By: #### C BC #### [facility] [place] [address] [place] [address] Nucleated RBC/100 WBC (Bld) [Ratio] 0.0 % Normal [facility] Comment on above: Performed By: #### C BC #### [facility] [employer] [facility] [place] [address] [facility] [place] [address] Pancytopenia WOMENS VOLLEYBALL COACH Normal [facility] Comment on above: Performed By: #### C BC #### [facility] [employer] [facility] [place] [address] [facility] [place] [address] Platelet mean volume (Bld) [Entitic vol] 10.9 fL High 7.4-10.4 [facility] Comment on above: Performed By: #### C BC #### [facility] [employer] [facility] [place] [address] [facility] [place] [address] Platelets (Bld) [#/Vol] 105 10*3/uL Low 148-402 [facility] Comment on above: Performed By: #### C BC #### [facility] [employer] [facility] [place] [address] [facility] [place] [address] Poikilocytosis WOMENS VOLLEYBALL COACH Normal [facility] Comment on above: Performed By: #### C BC #### [facility] [employer] [facility] [place] [address] [facility] [place] [address] RBC (Bld) [#/Vol] 5.31 10*6/uL Normal 4.13-5.69 [facility] Comment on above: Performed By: #### C BC #### [facility] [employer] [facility] [place] [address] [facility] [place] [address] Small Platelets WOMENS VOLLEYBALL COACH Normal [facility] Comment on above: Performed By: #### C BC #### [facility] [place] [address] [place] [address] Thrombocytopenia WOMENS VOLLEYBALL COACH Normal [facility] Comment on above: Performed By: #### C BC #### [facility] [place] [address] [place] [address] Thrombocytopenia. WOMENS VOLLEYBALL COACH Normal [facility] Comment on above: Performed By: #### C BC #### [facility] [place] [address] Thrombocytosis WOMENS VOLLEYBALL COACH Normal [facility] Comment on above: Performed By: #### C BC #### [facility] [address] [place] [address] WBC (Bld) [#/Vol] 5.0 10*3/uL Normal 3.6-10.8 [facility] Comment on above: Performed By: #### C BC #### [facility] [address] [place] [address] RA Latex Turbid.on 0 RA Latex Turbid. <10.0 Normal 0.0-13.9 [facility] Comment on above: Result Comment: Perf ormed at: CB - [facility] [address] [id number] Pharmacy Aide: Romulo Peng PhD, Phone: [phone] Performed By: #### R FWT #### [facility] [address] [place] [address] Sedimentation Rateon 020 Sedimentation Rate 4 mm/hr Normal 0-10 [facility] Comment on above: Performed By: #### E SR #### [facility] [address] [place] [address] Uric Acidon 12-03-2019 Urate [Mass/Vol] 6.1 mg/dL Normal 3.4-8.6 [facility] Comment on above: Performed By: #### C #### [facility] [place] [facility] [place] [address] HISTORY PHYSICALon 0 HISTORY PHYSICAL HNO ID: [id number] Author: Viviane Hughes Service: ? Author Type: Physician Biomedical Equipment Technician Type: HANDP Filed: 06/19/2019 9:19 AM Note [...] mouth once daily. famotidine/Ca carb/mag hydrox (ACID PHYSICAL OPTICS TEACHER COMPLETE, FAMOT, ORAL) Take 1 tablet by mouth twice daily. B Complex Vitamins capsule Take 1 capsule by mouth once daily. ta-xmg-rrjjb acid-lutein (CENTRUM SILVER) 400-250 mcg chew Take [...] June 19, 2019 TIME: 9:18 AM PAGER: [phone] [facility] PT EDon 06-19-2019 PT ED HNO ID: [id number] Author: Daniela Ramos RN Service: Nursing Author Type: Registered Nurse Type: [...] By: Daniela Ramos RN In Department: PROCEDURES [facility] PT ED HNO ID: [id number] Author: Daphne Byers RN Service: ? Author Type: Registered Nurse Type: [...] By: Daphne Byers RN In Department: PROCEDURES Normal [facility] HOSPon 06-12-2019 HOSP Patient:Jack Nielsen MRN: Height:5' 10.984 (1.803 m) Weight:353 lb 2.8 oz (160.2 kg) Outpatient Medications as of 06/19/19: doxepin capsule 50 mg levomilnacipran ER (FETZIMA) 40 mg famotidine/Ca carb/mag hydrox (ACID PHYSICAL OPTICS TEACHER COMPLETE, FAMOT, ORAL) B Complex Vitamins capsule sq-nwo-qfwjy acid-lutein (CENTRUM SILVER) 400-250 mcg chew triamterene [...] Used - Tobacco comment: quit in mid 20' Substance Use Topics - Alcohol use: Never [...] 0.30 Types: Cigarettes Last attempt to quit: 1983 Years since quittin.0 - Smokeless tobacco: Never Used Substance Use Topics - Alcohol use: Never Frequency: Never - Drug use: Never MEDICATIONS/ALLERGIES Current Outpatient Medications Medication Sig Dispense Refill - doxepin capsule 50 mg Take 50 mg by mouth daily at bedtime. - levomilnacipran ER (FETZIMA) 40 mg Take 40 mg by mouth once daily. - famotidine/Ca carb/mag hydrox (ACID PHYSICAL OPTICS TEACHER COMPLETE, FAMOT, ORAL) Take 1 tablet by mouth twice daily. - B Complex Vitamins capsule Take 1 capsule by mouth once daily. - yx-fje-fssas acid-lutein (CENTRUM SILVER) 400-250 mcg chew Take [...] fevers. Neuro: No history of TIA's, stroke, PSYCHIATRIC AIDE tumor, impaired sensorium, hemiplegia, paraplegia or quadriplegia. [...] Augusto Evans MD 06/08/2019 2:22 PM Signed [facility] Patient instructions for day of surgery [...] once daily. - famotidine/Ca carb/mag hydrox (ACID PHYSICAL OPTICS TEACHER COMPLETE, FAMOT, ORAL) Take 1 tablet by [...] your physician) as soon as possilbe to [phone], ATTN: Augusto Evans MD If you have any questions or concerns regarding today's visit please do not hesitate to contact the [facility] at [phone] or [phone], ext [phone]. Progress Notes ([facility]): Umer Winston DO, 06/08/2019 3:40 PM Addendum ANESTHESIA PRE-OPERATIVE ASSESSMENT (PACE) SERVICE DATE: 06/08/2019 SERVICE TIME: 3:05pm ASSESSMENT AND PLAN: Spiek Nielsen is a 39 year old male [...] 3:07 PM PAGER/CONTACT #: Previous Version Normal [facility] GFRon 08-03-2018 GFR/1.73 sq M.predicted MDRD (S/P/Bld) [Vol rate/Area] mL/min/{1.73_m2} Normal [facility] Comment on above: Result Comment: To e [...] <15 Performed By: #### G FR1 #### [place] [address] METABOLIC PANELon 08-03-2018 ALK PHOS 83 U/L Normal 24-126 [facility] Comment on above: Performed By: #### 4 [id number] #### [place] [address] ALT [Catalytic activity/Vol] 61 U/L High 4-50 [facility] Comment on above: Performed By: #### 4 [id number] #### [place] [address] AST [Catalytic activity/Vol] 33 U/L Normal 3-55 [facility] Comment on above: Performed By: #### 4 [id number] #### [place] [address] Calcium [Mass/Vol] 9.6 mg/dL Normal 8.4-10.4 [facility] Comment on above: Performed By: #### 4 [id number] #### [place] [address] Glucose [Mass/Vol] 88 mg/dL Normal 65-100 [facility] Comment on above: Performed By: #### 4 [id number] #### [facility] [address] [address] Urea nitrogen [Mass/Vol] 23 mg/dL Normal 8-26 [facility] Comment on above: Performed By: #### 4 [id number] #### [place] [address] Bilirubin Ql (U) 0.4 mg/dL Normal 0.2-1.6 [facility] Comment on above: Performed By: #### 4 [id number] #### [place] [address] CO2 [Moles/Vol] 26 mmol/L Normal 22-30 [facility] Comment on above: Performed By: #### 4 [id number] #### [place] [address] Creatinine [Mass/Vol] 0.90 mg/dL Normal 0.66-1.25 [facility] Comment on above: Performed By: #### 4 [id number] #### [place] [address] Protein [Mass/Vol] 6.9 g/dL Normal 6.3-8.2 [facility] Comment on above: Performed By: #### 4 [id number] #### [place] [address] Potassium [Moles/Vol] 4.3 mmol/L Normal 3.6-5.1 [facility] Comment on above: Performed By: #### 4 [id number] #### [place] [address] Sodium [Moles/Vol] 141 mmol/L Normal 135-147 [facility] Comment on above: Performed By: #### 4 [id number] #### [facility] [place] [id number] Albumin [Mass/Vol] 4.3 g/dL Normal 3.5-5.0 [facility] [employer] [facility] Comment on above: Performed By: #### 4 [id number] #### [facility] [place] [address] [place] [address] Chloride [Moles/Vol] 106 mmol/L Normal 96-109 [facility] Comment on above: Performed By: #### 4 [id number] #### [facility] [address] [address] Vital Signs Date Time Vital Sign Value Performing Clinician Donatoi zayra 01-20-2023 08:21-0400 Body height 180.3 cm Sam Crow MD Work Phone: [facility] 01-20-2023 08:21-0400 Body temperature 97.2 [degF] Sam Crow MD Work Phone: [facility] 01-20-2023 08:21-0400 Body weight 170.1 kg Sam Crow MD Work Phone: [facility] 01-20-2023 08:21-0400 Diastolic blood pressure 63 mm[Hg] Sam Crow MD Work Phone: [facility] 01-20-2023 08:21-0400 Heart rate 62 /min Sam Crow MD Work Phone: [facility] 01-20-2023 08:21-0400 Systolic blood pressure 148 mm[Hg] Sam Crow MD Work Phone: [facility] Encounters Encounter Date Encounter Type Care Provider Facility Start: 03-13-2024 ambulatory Rashid Ruffin acility:[facility] Start: 03-03-2024 End: 03-05-2024 ambulatory Mary Gonzalez APRN NURSING EDUCATION SPECIALIST-Steven Facility:[facility] Start: 09-14-2023 End: 09-14-2023 ambulatory KAMI Hummel Facility:[facility] Start: 08-18-2023 End: 08-18-2023 ambulatory Jhonny Hernandez Facility:[facility] Start: 07-14-2023 End: 07-14-2023 ambulatory KAMI Hummel Facility:[facility] Start: 07-07-2023 End: 07-07-2023 ambulatory KAMI Hummel Facility:[facility] Start: 07-06-2023 End: 07-06-2023 ambulatory PA Cassidy Hummel Facility:[facility] Start: 06-28-2023 End: 06-28-2023 ambulatory PA Cassidy Hummel Facility:[facility] Start: 06-16-2023 End: 06-16-2023 ambulatory None Provider Facility:[facility] Start: 04-14-2023 Telephone encounter Fadi Guevara General Surgery Start: 01-22-2023 ambulatory Minal Puga RN Gener al Surgery Start: 01-22-2023 E-mail encounter fro m caregiver Minal Puga RN [facility] Start: 01-21-2023 Telephone encounter Minal Guevara General Surgery Comment on above: Battery Tester - O angus (Enroll in BMI program) Start: 01-20-2023 End: 01-21-2023 ambulatory SAM CROW Facility:[facility] Start: 01-20-2023 End: 01-20-2023 Patient encounter procedure Sam Crow MD Work Phone: General Surgery Comment on above: Incisional hernia, w ithout obstruction or gangrene (Primary Dx) Start: 01-04-2023 Orders Only Marika Tavares APRN.CNP Work Phone: General Surgery Comment on above: Incisional hernia, w ithout obstruction or gangrene (Primary Dx) Procedures Date Procedure Procedure Detail Performing Clinician Start: 02-22-2019 Lipid 1996 panel - S christiano or Plasma Fadi Roberson RN Plan of Treatment Date Care Activity Detail Author Start: 02-23-2024 Lipid 1996 panel - S christiano or Plasma Lipid Screening [facility] Start: 02-23-2024 LIPID SCREEN LIPID SCREEN [facility] Start: 09-14-2023 Urine microalbumin profile [facility] Start: 02-04-2023 Influenza vaccination [facility] Start: 02-23-2020 ANNUAL PCP TEAM BRAZING MACHINE OPERATOR AUTOMATIC ELIANA DISEASE VISIT ANNUAL PCP TEAM CHRONIC DISEASE VISIT [facility] Start: 1996 BP CONTROLLED (<130/80) BP CON TROLLED (<130/80) [facility] Start: 1996 HEPATITIS C SCREENING HEPATITIS C SC GERA [facility] Start: 1996 HIV SCREENING HIV SCREENING [facility] Start: 1978 COVID-19 VACCINE (#1) COVID-19 VACCI NE (#1) [facility] Start: 1978 HEPATITIS B (1 of 3 - 3-dose series) HEPATITIS B (1 of 3 - 3-dose series) [facility] Start: 1978 Hepatitis B Vaccine (1 of 3 - 3-dose series) Hepatitis B Vaccine (1 of 3 - 3-dose series) [facility] End: 02-03-2024 Ct abdomen & pelvis w/o contrast material CT ABD/PEL WO IVCON Radiology Routine Incisional hernia, without obstruction or gangrene 1 Occurrences starting 01/04/2023 until 02/03/2024 [facility] Work Phone: Comment on above: 1 Occurrences starti ng 01/04/2023 until 02/03/2024 [facility] Immunization Date Immunization Notes Care Provider Mike dave 03-06-2015 influenza, seasonal, injectable Marika Chaitanya FIRM ADMINISTRATOR.DROP TESTER Work Phone: [facility] Work Phone: 03-06-2015 influenza virus vaccine, unspecified formulation Fadi Roberson RN [facility] 09-13-2013 tetanus toxoid, redu dana diphtheria toxoid, and acellular pertussis vaccine, adsorbed Marika Chaitanya FIRM ADMINISTRATOR.DROP TESTER Work Phone: [facility] Work Phone: Payers Date Payer Category Payer Self-pay 2022 Medicaid [id number] 2022 Medicaid [id number] 1980 Unknown [id number] 2.16.8 [id number] 1978 Unknown [id number] 2.16.8 [id number] 1978 Unknown [id number] 2.16.8 [id number] 1978 Unknown [id number] 2.16.8 [id number] 1978 Unknown [id number] 2.16.8 [id number] 1978 Unknown [id number] 2.16.8 [id number] 1978 Unknown [id number] 2.16.8 [id number] 1978 Unknown [id number] 2.16.8 [id number] 1978 Unknown [id number] 2.16.8 [id number] 1978 Unknown [id number] 2.16.8 [id number] 1978 Unknown [id number] 2.16.8 [id number] 1978 Unknown [id number] 2.16.8 [id number] Unknown [id number] 2.16.8 [id number] Social History Date Type Detail Facility Start: 06-08-2019 End: 01-20-2023 Tobacco smoking status IDIS Ex-smoker [facility] End: 06-06-1982 History of tobacco use Current smoker [facility] End: 06-06-1982 History of tobacco use Cigarette Smoker [facility] Start: 06-08-2019 End: 01-20-2023 Cigarettes smoked current (pack per day) - Reported 0.1 [facility] Work Phone: Start: 06-08-2019 End: 01-20-2023 Tobacco use and exposure Smokeless tobacco non-user [facility] Start: 03-19-2021 End: 01-20-2023 Alcohol intake Lifetime non-drinker (finding) [facility] Start: 1980 Sex Assigned At Not on file [facility] Start: 06-19-2019 End: 01-20-2023 Gender identity Not on file [facility] Work Phone: How often to you hav e a drink containing alcohol? Never [facility] Work Phone: Average Number of Drinks Not on file [facility] Clinical Notes 01-20-2023 to 03-05-2024 Telephone Encounter - Fadi Roberson RN - 04/14/2023 5:12 PM ESTTelephone Encounter - Minal Puga RN - 01/22/2023 10:57 AM EDTTelephone Encounter - Minal Puga RN - 01/22/2023 10:54 AM EDT Note Date & Type Note Facility 03-05-2024 Note Education Materials Gastroenterology Obesity, Adult Obesity is having too much body fat. Being obese means that your weight is more than what is healthy for you. BMI (body mass index) is a number that explains how much body fat you have. If you have a BMI of 30 or more, you are obese. Obesity can cause serious health problems, such as: ? Stroke. ? Coronary artery disease (CAD). ? Type 2 diabetes. ? Some types of cancer. ? High blood pressure (hypertension). ? High cholesterol. ? Gallbladder stones. Obesity can also contribute to: ? Osteoarthritis. ? Sleep apnea. ? Infertility problems. What are the causes? ? Eating meals each day that are high in calories, sugar, and fat. ? Drinking a lot of drinks that have sugar in them. ? Being born with genes that may make you more likely to become obese. ? Having a medical condition that causes obesity. ? Taking certain medicines. ? Sitting a lot (having a sedentary lifestyle). ? Not getting enough sleep. What increases the risk? ? Having a family history of obesity. ? Living in an area with limited access to: ? [place], recreation centers, or sidewalks. ? Healthy food choices, such as grocery stores and en-Gauge markets. What are the signs or symptoms? The main sign is having too much body fat. How is this treated? Treatment for this condition often includes changing your lifestyle. Treatment may include: ? Changing your diet. This may include making a healthy meal plan. ? Exercise. This may include activity that causes your heart to beat faster (aerobic exercise) and strength training. Work with your doctor to design a program that works for you. ? Medicine to help you lose weight. This may be used if you are not able to lose one pound a week after 6 weeks of healthy eating and more exercise. ? Treating conditions that cause the obesity. ? Surgery. Options may include gastric banding and gastric bypass. This may be done if: ? Other treatments have not helped to improve your condition. ? You have a BMI of 40 or higher. ? You have life-threatening health problems related to obesity. Follow these instructions at home: Eating and drinking ? Follow advice from your doctor about what to eat and drink. Your doctor may tell you to: ? Limit fast food, sweets, and processed snack foods. ? Choose low-fat options. For example, choose low-fat milk instead of whole milk. ? Eat five or more servings of fruits or vegetables each day. ? Eat at home more often. This gives you more control over what you eat. ? Choose healthy foods when you eat out. ? Learn to read food labels. This will help you learn how much food is in one serving. ? Keep low-fat snacks available. ? Avoid drinks that have a lot of sugar in them. These include soda, fruit juice, iced tea with sugar, and flavored milk. ? Drink enough water to keep your pee (urine) pale yellow. ? Do not go on fad diets. Physical activity ? Exercise often, as told by your doctor. Most adults should get up to 150 minutes of moderate-intensity exercise every week.Ask your doctor: ? What types of exercise are safe for you. ? How often you should exercise. ? Warm up and stretch before being active. ? Do slow stretching after being active (cool down). ? Rest between times of being active. Lifestyle ? Work with your doctor and a food expert (dietitian) to set a weight-loss goal that is best for you. ? Limit your screen time. ? Find ways to reward yourself that do not involve food. ? Do not drink alcohol if: ? Your doctor tells you not to drink. ? You are , may be , or are planning to become . ? If you drink alcohol: ? Limit how much you have to: ? 0?1 drink a day for women. ? 0?2 drinks a day for men. ? Know how much alcohol is in your drink. In the [place] one drink equals one 12 oz bottle of beer (355 mL), one 5 oz glass of wine (148 mL), or one 1? oz glass of hard liquor (44 mL). General instructions ? Keep a weight-loss journal. This can help you keep track of: ? The food that you eat. ? How much exercise you get. ? Take vyup-yow-yeiwxtr and prescription medicines only as told by your doctor. ? Take vitamins and supplements only as told by your doctor. ? Think about joining a support group. ? Pay attention to your mental health as obesity can lead to depression or self esteem issues. ? Keep all follow-up visits. Contact a doctor if: ? You cannot meet your weight-loss goal after you have changed your diet and lifestyle for 6 weeks. ? You are having trouble breathing. Summary ? Obesity is having too much body fat. ? Being obese means that your weight is more than what is healthy for you. ? Work with your doctor to set a weight-loss goal. ? Get regular exercise as told by your doctor. This information is not intended to replace advice given to you by your health care provider. Make sure you discuss any ques (more content not included)... [facility] 03-05-2024 Note [facility] [address] [place] Clinical Discharge Summary PERSON INFORMATION Name SPIKE NIELSEN Age 43 Years 1980 Sex MALE Language Filipino PCP Carlos ALLEN NURSING EDUCATION SPECIALIST-C, Mary Harris Marital Status Single Med Service Observation N [id number] Acct# Arrival 03/03/2024 20:53:18 Visit Reason Skin problem; R LEG CELLULITIS Acuity LOS 000 34:10 Address: [address] [facility] [facility] [address] Comment: PROVIDER INFORMATION VITALS INFORMATION Vital Sign Triage Latest Temp Oral 37.0 DegC 36.9 DegC Temp Temporal Temp Intravascular Temp Axillary Temp Rectal 02 Sat 96 % 94 % Respiratory Rate 21 br/min 16 br/min Peripheral Pulse Rate 75 bpm 61 bpm Apical Heart Rate Blood Pressure 138 mmHg / 75 mmHg 123 mmHg / 76 mmHg Comment: MEDICAL INFORMATION Allergy Info: Wellbutrin Medication List: New Medications [facility] [address], [address] [place], [place] [id number], [phone] cephalexin (cephalexin 500 mg oral tablet) 1 tab(s) Oral (given by mouth) 4 times a day for 10 Days. Refills: 0. potassium chloride (potassium chloride 10 mEq oral capsule, extended release) 1 cap(s) Oral (given by mouth) 2 times per day. MAGRU. Refills: 0. Medications That Were Updated - Follow Below Instructions Other Medications Updated: dulaglutide (Trulicity Pen 0.75 mg/0.5 mL subcutaneous solution) 0.75 Milligram Subcutaneous (under the skin) every week. Updated: ferrous sulfate (ferrous sulfate 325 mg Tab) 1 tab(s) Oral (given by mouth) every day. Updated: fluticasone nasal (fluticasone 50 mcg/inh nasal spray) 2 spray(s) Nostril-Both every day. Updated: levomilnacipran (Fetzima 20 mg oral capsule, extended release) 1 cap(s) Oral (given by mouth) every day. AT APPOXIMATELY THE SAME TIME EACH DAY. Updated: omeprazole (omeprazole 20 mg oral delayed release capsule) 1 cap(s) Oral (given by mouth) 2 times per day. Medications to Continue That Have Not Changed Other Medications anastrozole (anastrozole 1 mg oral tablet) 1 tab(s) Oral (given by mouth) every day. busPIRone (busPIRone 10 mg oral tablet) 1 tab(s) Oral (given by mouth) 2 times per day. febuxostat (febuxostat 40 mg oral tablet) 1 tab(s) Oral (given by mouth) every day. hydrochlorothiazide-losartan (hydrochlorothiazide-losartan 12.5 mg-100 mg oral tablet) 1 tab(s) Oral (given by mouth) every day. melatonin (melatonin 5 mg oral tablet) 1 tab(s) Oral (given by mouth) once a day (at bedtime) as needed for insomnia. multivitamin (Vitamin B Complex oral capsule) 1 cap(s) Oral (given by mouth) every day. traZODone (traZODone 50 mg oral tablet) 1 tab(s) Oral (given by mouth) once a day (at bedtime). Comment: Lab and Radiology Results Laboratory or Other Results This Visit (last charted value for your 03/03/2024 visit) Hematology 03/05/2024 5:15 AM Hct: 40.7 % -- Normal range between ( 34.8 and 51.9 ) Hgb: 14.1 gm/dL -- Normal range between ( 11.8 and 17.7 ) MCH: 29 pg -- Normal range between ( 24 and 34 ) MCHC: 35 gm/dL -- Normal range between ( 26 and 37 ) MCV: 84 fL -- Normal range between ( 81 and 100 ) MPV: 10.4 fL -- Normal range between ( 6.3 and 10.2 ) Platelet: 90 x103/mcL -- Normal range between ( 138 and 427 ) RBC: 4.82 x106/mcL -- Normal range between ( 3.70 and 5.30 ) RDW: 13.1 % -- Normal range between ( 11.5 and 15.0 ) WBC: 4.2 x103/mcL -- Normal range between ( 3.5 and 10.5 ) Auto Eos %: 0.2 % -- Normal range between ( 0.9 and 4.0 ) Auto Lymph %: 33 % -- Normal range between ( 14 and 48 ) Auto Neut %: 55 % -- Normal range between ( 44 and 88 ) Eos Abs#: 0.0 x103/mcL -- Normal range between ( 0.0 and 0.4 ) Lymph Abs#: 1.4 x103/mcL -- Normal range between ( 1.3 and 2.9 ) Brown Abs#: 0.5 x103/mcL -- Normal range between ( 0.0 and 0.8 ) Auto Baso %: 0.1 % -- Normal range between ( 0.2 and 2.0 ) Auto Brown %: 12 % -- Normal range between ( 1 and 12 ) Baso Abs#: 0.0 x103/mcL -- Normal range between ( 0.0 and 0.2 ) Neut Abs#: 2.3 x103/mcL -- Normal range between ( 1.5 and 9.2 ) Chemistry 03/05/2024 5:15 AM Creatinine Level: 0.89 mg/dL -- Normal range between ( 0.90 and 1.30 ) BUN: 18 mg/dL -- Normal range between ( 8 and 26 ) Chloride Level: 104 mmol/L -- Normal range between ( 101 and 111 ) CO2: 27 mmol/L -- Normal range between ( 21 and 32 ) Glucose Level: 108.0 mg/dL -- Normal range between ( 74.0 and 118.0 ) Osmolality: 280 mOsm/L Potassium Level: 3.5 mmol/L -- Normal range between ( 3.6 and 5.1 ) Sodium Level: 139.0 mmol/L -- Normal range between ( 136.0 and 144.0 ) Anion Gap: 11.5 mmol/L -- Normal range between ( 5.0 and 19.0 ) Calcium Level: 8.7 mg/dL -- Normal range between ( 8.9 and 10.3 ) BUN/Creat Ratio: 20.2 -- Normal range between ( 4.6 and 16.2 ) eGFR AA: >60 mL/min/1.73m2 eGFR Non AA: >60 mL/min/1.73m2 03/04/2024 5:30 AM Albumin Level: 3.8 gm/dL -- Normal range between ( 3.5 and 5.0 ) Alk Phos: 53 IU/L -- Normal range between ( 32 and 91 ) Bili Total: 1.0 (more content not included)... [facility] 09-14-2023 Note Patient Education Ma terials Follows:Disease [...] doctor may want you to: ? Take adwg-qfz-sxnujpa medicines. ? Drink plenty of fluids. The [...] Applesauce. ? Rice. ? Lean meats. ? [place]. ? Crackers. ? Do not eat or drink: ? Fluids that have a lot of sugar or caffeine. ? Alcohol. ? Spicy or fatty foods. General instructions ? 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 ? Keep all follow-up visits. How is [...] the hospital. Summary (more content not included)... [facility] 06-16-2023 Note Patient Education Ma [...] at home: Medicines ? Take or apply oqmx-uld-hhlzbry and prescription medicines only as told by [...] provider. Document Revised: 08/21/2020 Document Reviewed: 08/21/2020 [employer] Patient Education ? 2022 [employer] [employer]. [facility] 04-14-2023 Miscellaneous Notes BMI SPECIALTY CARE COORDINATION TELEPHONE ENCOUNTER Pt mother is helping him. LVM with call back number documented in this encounter [facility] 01-22-2023 Miscellaneous Notes Unable to send [employer] message- account not active documented in this encounter [facility] 01-22-2023 Miscellaneous Notes BMI SPECIALTY CARE COORDINATION TELEPHONE ENCOUNTER 01/21/18: called and left message for pt to call office. Provided this RNs contact number. documented in this encounter [facility] 01-20-2023 Note HNO ID: [id number] Author: Sam Crow MD Service: ? Author [...] plan as documented in the resident?s note. [facility] 01-20-2023 Note HNO ID: [id number] Author: aZhraa Stovall Service: ? Author Type: ? Type: Progress Notes Filed: 01/20/2023 9:13 AM Note Text: [facility] - HISTORY AND PHYSICAL [...] mouth once daily. famotidine/Ca carb/mag hydrox (ACID PHYSICAL OPTICS TEACHER COMPLETE, FAMOT, ORAL) Take 1 tablet by mouth twice daily. B Complex Vitamins capsule Take 1 capsule by mouth once daily. xs-svc-aifra acid-lutein (CENTRUM SILVER) 400-250 mcg chew Take [...] and discussed with Dr. Mignon Stovall, MS4 [facility] 01-20-2023 History of Presen t illness [...] as documented in the resident s note. [facility] - HISTORY AND PHYSICAL Chief [...] mouth once daily. famotidine/Ca carb/mag hydrox (ACID PHYSICAL OPTICS TEACHER COMPLETE, FAMOT, ORAL) Take 1 tablet by mouth twice daily. B Complex Vitamins capsule Take 1 capsule by mouth once daily. rl-tnz-uptjj acid-lutein (CENTRUM SILVER) 400-250 mcg chew Take [...] Mignon Stovall, MS4 documented in this encounter [facility] 01-20-2023 Nurse Note What is the reason for your visit today? consult Who is your referring physician? Dr. Crow Are you having poor oral intake? NO Have you had unintentional weight loss of 15 lbs/7 Kg in the last 3-6 months? NO Bowels: diarrhea Wound: clean & dry Temperature: No Drains: No documented in this encounter [facility] Evaluation note Diagnosis Incisional hernia, without obstruction or gangrene- Primary Incisional hernia without mention of obstruction or gangrene [facility] Incisional hernia, without obstruction or gangrene- Primary Incisional hernia without mention of obstruction or gangrene documented in this encounter [facility] Summary Purpose Family History No Family History Records FoundNo Family History Records FoundNo Family History Records FoundNo Family History Records FoundNo Family History Records FoundNo Family History Records Found Advance Directives No Advanced Directives Records FoundDocuments on File Type Date Recorded 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 Advance Directive(s) 06/08/2019 4:15 PM Documents on File Type Date Recorded 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 Advance Directive(s) 06/08/2019 4:15 PM Reason for Referral Specialty Diagnoses / Procedures Referred By Elías maya Referred To Contact CT IMAGING Diagnoses Incisional hernia, without obstruction or gangrene Procedures CT ABD/PEL WO IVCON CT ABD & PELVIS W/O CONTRAST Marika Tavares APRN.DROP TESTER [id number] Imaging Referral ID Status Reason Start Date Expiration Date Visits Requested Visits Authorized [id number] Pending Review Auto-Generat ed Referral 01/04/2023 02/03/2024 1 1 Specialty Diagnoses / Procedures Referred By Elías maya Referred To Contact Diagnoses Incisional hernia, without obstruction or gangrene Procedures CONSULT [facility] 60-74 MINUTES Sam Crow MD [address] [id number] Referral ID Status Reason Start Date Expiration Date Visits Requested Visits Authorized [id number] Authorized PCP Requested Referral 01/20/2023 01/20/2024 1 1 Additional Source Comments (unrecognized sect ion and content) No Status Records FoundNo Status Records FoundNo Status Records FoundNo Status Records FoundNo Status Records FoundNo Status Records Found INFORMATION SOURCE (unrecogn ized section and content) DATE CREATED AUTHOR 04/26/2019 [facility] DATE CREATED AUTHOR AUTHOR'S ORGANIZ ATION 06/19/2019 [facility] DATE CREATED AUTHOR AUTHOR'S ORGANIZ ATION 08/02/2020 [facility] DATE CREATED AUTHOR AUTHOR'S ORGANIZ ATION 04/16/2023 [facility] DATE CREATED AUTHOR AUTHOR'S ORGANIZ ATION 03/11/2024 [facility] DATE CREATED AUTHOR AUTHOR'S ORGANIZ ATION 03/14/2024 [facility] Source Comments (unrecognize d section and content) In the event this informatio n is protected by the Federal Confidentiality of Alcohol and Drug Abuse Patient Records regulations: The Federal rules restrict any use of the information to criminally investigate or prosecute any alcohol or drug abuse patient.[facility] event this information is protected by the Federal Confidentiality of Alcohol and Drug Abuse Patient Records regulations: The Federal rules restrict any use of the information to criminally investigate or prosecute any alcohol or drug abuse patient.[facility] the event this information is protected by the Federal Confidentiality of Alcohol and Drug Abuse Patient Records regulations: The Federal rules restrict any use of the information to criminally investigate or prosecute any alcohol or drug abuse patient.[facility] the event this information is protected by the Federal Confidentiality of Alcohol and Drug Abuse Patient Records regulations: The Federal rules restrict any use of the information to criminally investigate or prosecute any alcohol or drug abuse patient.[facility] the event this information is protected by the Federal Confidentiality of Alcohol and Drug Abuse Patient Records regulations: The Federal rules restrict any use of the information to criminally investigate or prosecute any alcohol or drug abuse patient.[facility] Care Teams (unrecognized sec tion and content) Bombsight Specialist Relationship Specialty Start Date End Date Antoine Alcazar [address] [facility] [address] [place] [address] Referring General Surgery 02/07/19 Bombsight Specialist Relationship Specialty Start Date End Date Antoine Alcazar [address] [place] [address] [facility] [address] [place] [id number] Referring General Surgery 02/07/19 Bombsight Specialist Relationship Specialty Start Date End Date Antoine Alcazar [address] [place] [address] Referring General Surgery 02/07/19 Bombsight Specialist Relationship Specialty Start Date End Date Antoine Alcazar [address] [facility] [address] [place] [address] Referring General Surgery 02/07/19 Reason for Visit (unrecogniz ed section and content) Reason Comments Consult Reason Comments 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 [facility]. provides no warranty or guarantee of the accuracy or completeness of information in this document.
--- NOTE | 2024-03-23 13:40 | W.VEIN ---
Discharge Plan Discharge Disposition: Home, Self-Care Discharge Medications: No Action buspirone 5 mg tablet 5 mg PO BID Trulicity 0.75 mg/0.5 mL pen injector 0.75 mg subcut QWEEK losartan 100 mg tablet 100 mg PO DAILY Fabuxostat ferrous sulfate [Feosol] 325 mg (65 mg iron) tablet 325 mg PO DAILY melatonin 5 mg capsule omeprazole 20 mg capsule,delayed release(DR/EC) 20 mg PO DAILY trazodone 50 mg tablet 25 mg PO DAILY calcium phos,dibas-vitamin D3 77-400 mg-unit tablet PO Plan of Treatment: Patient to wear compression stockings and to follow up with family physician Print Language: Swedish Discharge Date/Time: 03/23/24 13:40
== END 2024-03-23 13:40 | disposition home or self-care (01) ==
PROVIDERS: PCP Radiology Diagnostic Radiology; Visit Provider Radiology Diagnostic Radiology
DX: I80.03 Phlebitis and thrombophlebitis of superficial vessels of lower extremities, bilateral (principal)
CPT/HCPCS: 93970; G0463